=== PATIENT | male | born 1935 | race Caucasian/White ===

== ENCOUNTER → 2017-07-18 09:14 | Outpatient (CLI) | payer MEDICARE, SELFPAY ==
[2017-07-18 13:38] LABS: Absolute Lymphocyte Count 1.13 X10^3/ul (0.83-4.51); Absolute Neutrophil Count 4.7 X10^3/uL (2.0-7.7); Basophil# 0.02 X10^3/uL; Basophil% 0.3 % (0-1); Eosinophil# 0.19 X10^3/uL; Eosinophils% 2.8 % (0-5); Hematocrit 39.9 % (40-54); Hemoglobin 13.5 g/dl (13.0-16.5); Lymphocyte # 1.13 X10^3/ul (4.0); Lymphocyte % 16.5 % (19-41); Mean Corp Hgb Conc 33.8 g/gl (32-36); Mean Corpuscular Hgb 29.8 pg (27.0-32.0); Mean Corpuscular Volume 88.1 fL (80-94); Mean Platelet Vol. 11.5 fl (6.2-12.0); Monocyte# 0.79 X10^3/uL; Monocyte% 11.5 % (0-10); Neutrophil # 4.71 X10^3/uL (2.7-7.7); Neutrophil % 68.8 % (47-70); Platelet Count 185 K/mm3 (150-450); RBC Distribution Width CV 13.8 % (11.6-14.6); RBC Distribution Width SD 44.4 fl (35.1-43.9); Red Blood Count 4.53 M/mm3 (4.6-6.2); White Blood Count 6.9 K/mm3 (4.4-11.0)
[2017-07-18 13:42] LABS: POSITIVE COUNT NO; POSITIVE DIFFERENTIAL NO; POSITIVE MORPHOLOGY NO
[2017-07-18 14:06] LABS: AST(SGOT) 23 U/L (15-37); Alanine Aminotransfer ALT/SGPT 25 U/L (16-61); Albumin, Serum 3.4 g/dL (3.2-5.0); Alkaline Phosphatase 118 U/L (45-117); Anion Gap 9 (5-15); BUN 11 mg/dL (7-18); BUN/Creat Ratio 8.9 RATIO (10-20); Calcium,Total 8.2 mg/dL (8.5-10.1); Chloride 99 mmol/L (98-107); Creatinine, Serum 1.23 mg/dL (0.70-1.30); EST Glomerular Filtration Rate 60 mL/min (>60); Est Glom Filt Rate - Afr Amer 73 mL/min (>60); Globulin 3.5 g/dL (2.2-4.2); Glucose 151 mg/dL (74-106); Potassium 4.3 mmol/L (3.5-5.1); Protein, Total 6.9 g/dL (6.4-8.2); Sodium Level 135 mmol/L (136-145); Thyroid Stim Hormone (TSH) 2.22 uIU/mL (0.358-3.74)
[2017-07-19 08:44] LABS: Vitamin D,25 Hydroxy 10.4 ng/mL (29.95-100.01)
== END ==
PROVIDERS: Family Provider Family Medicine Geriatric Medicine; PCP Family Medicine Geriatric Medicine; Visit Provider Family Medicine Geriatric Medicine
DX: E11.9 Type 2 diabetes mellitus without complications (principal); E55.9 Vitamin D deficiency, unspecified; I10 Essential (primary) hypertension
CPT/HCPCS: 36415; 80053; 82306; 84443; 85025

== ENCOUNTER → 2017-09-10 16:55 | Outpatient (CLI) | payer MEDICARE, SELFPAY ==
--- NOTE | 2017-09-10 17:12 | CT_ITS ---
STUDY: CT ABDOMEN AND PELVIS WITH CONTRAST REASON FOR EXAM: Male, 81 years old. Pain. RADIATION DOSAGE (If Supplied By Facility): CTDIvol = ( 18.56 ) mGy, DLP = ( 1391.31 ) mGycm TECHNIQUE: Transaxial images were obtained from the dome of the diaphragm to the symphysis pubis with oral contrast. 100 ml of Isovue 300 contrast was administered. Sagittal and coronal images were reconstructed. Individualized dose optimization techniques were used for this CT. COMPARISON: September 03, 2016 FINDINGS: The visualized lung bases are unremarkable. Coronary artery calcifications. Normal liver. There are surgical clips in the gallbladder fossa consistent with a prior cholecystectomy. Normal spleen. Normal pancreas. Stable 1.9 cm left adrenal nodule. There is 1.1 cm cyst of the right kidney. Normal left kidney. Normal visualized stomach. Normal small intestine. There is diverticulosis, with thickening of the sigmoid colon wall, and pericolonic inflammation changes consistent with acute diverticulitis, series 2 images 68/138 through 82/138. There is 2.2 cm extraluminal region suggesting abscess, series 2 image 78/138. Resection of the proximal colon There is non-visualization of the appendix. There is diffuse atherosclerotic calcification of the abdominal aorta, without a demonstrated aneurysm. Normal inferior vena cava. Normal retroperitoneum. Wall thickening of the urinary bladder. There is enlargement of the prostate gland. There is mild free fluid in the pelvis Right inguinal hernia containing fluid . There are diffuse degenerative changes of the visualized lumbar spine. CT/Abdomen/Pelvis WITH Contrast IMPRESSION: Sigmoid diverticulitis with suggestion of peridiverticular abscess. No obstruction or abscess. Electronically Signed: Darrin Mcgee MD at 20:00 EDT , Service support ,
[2017-09-10 17:54] LABS: Absolute Lymphocyte Count 1.21 X10^3/ul (0.83-4.51); Absolute Neutrophil Count 10.3 X10^3/uL (2.0-7.7); Basophil# 0.01 X10^3/uL; Basophil% 0.1 % (0-1); Eosinophil# 0.07 X10^3/uL; Eosinophils% 0.5 % (0-5); Hematocrit 38.1 % (40-54); Hemoglobin 12.9 g/dl (13.0-16.5); Lymphocyte # 1.21 X10^3/ul (4.0); Lymphocyte % 9.4 % (19-41); Mean Corp Hgb Conc 33.9 g/gl (32-36); Mean Corpuscular Hgb 30.1 pg (27.0-32.0); Mean Corpuscular Volume 88.8 fL (80-94); Mean Platelet Vol. 11.6 fl (6.2-12.0); Monocyte# 1.29 X10^3/uL; Neutrophil # 10.29 X10^3/uL (2.7-7.7); Neutrophil % 79.7 % (47-70); Platelet Count 198 K/mm3 (150-450); RBC Distribution Width CV 13.5 % (11.6-14.6); RBC Distribution Width SD 43.6 fl (35.1-43.9); Red Blood Count 4.29 M/mm3 (4.6-6.2); White Blood Count 12.9 K/mm3 (4.4-11.0)
[2017-09-10 17:55] LABS: POSITIVE COUNT NO; POSITIVE DIFFERENTIAL NO; POSITIVE MORPHOLOGY NO
[2017-09-10 18:25] LABS: ALB/GLOB Ratio 0.8 RATIO (0.9-2.4); AST(SGOT) 20 U/L (15-37); Alanine Aminotransfer ALT/SGPT 25 U/L (16-61); Albumin, Serum 3.1 g/dL (3.2-5.0); Alkaline Phosphatase 149 U/L (45-117); Anion Gap 7 (5-15); BUN 12 mg/dL (7-18); Chloride 98 mmol/L (98-107); Creatinine, Serum 1.34 mg/dL (0.70-1.30); EST Glomerular Filtration Rate 54 mL/min (>60); Est Glom Filt Rate - Afr Amer 66 mL/min (>60); Globulin 4.1 g/dL (2.2-4.2); Glucose 162 mg/dL (74-106); Potassium 3.4 mmol/L (3.5-5.1); Protein, Total 7.2 g/dL (6.4-8.2); Sodium Level 132 mmol/L (136-145)
== END ==
PROVIDERS: Family Provider Family Medicine Geriatric Medicine; PCP Family Medicine Geriatric Medicine; Visit Provider Family Medicine Geriatric Medicine
DX: N39.0 Urinary tract infection, site not specified (principal); R10.9 Unspecified abdominal pain
CPT/HCPCS: 36415; 74177; 80053; 85025; 87086; Q9967

== ENCOUNTER → 2018-01-02 14:24 | Outpatient (CLI) | payer MEDICARE, SELFPAY ==
[2018-01-02 17:21] LABS: Absolute Neutrophil Count 6.4 X10^3/uL (2.0-7.7); Basophil# 0.01 X10^3/uL; Basophil% 0.1 % (0-1); Eosinophils% 1.2 % (0-5); Hematocrit 38.9 % (40-54); Hemoglobin 13.3 g/dl (13.0-16.5); Lymphocyte % 13.3 % (19-41); Mean Corp Hgb Conc 34.2 g/gl (32-36); Mean Corpuscular Hgb 30.6 pg (27.0-32.0); Mean Corpuscular Volume 89.4 fL (80-94); Mean Platelet Vol. 11.1 fl (6.2-12.0); Monocyte# 0.63 X10^3/uL; Monocyte% 7.6 % (0-10); Neutrophil % 77.3 % (47-70); Platelet Count 208 K/mm3 (150-450); RBC Distribution Width CV 13.6 % (11.6-14.6); RBC Distribution Width SD 44.5 fl (35.1-43.9); Red Blood Count 4.35 M/mm3 (4.6-6.2); White Blood Count 8.3 K/mm3 (4.4-11.0)
[2018-01-02 17:46] LABS: ALB/GLOB Ratio 0.9 RATIO (0.9-2.4); AST(SGOT) 46 U/L (15-37); Alanine Aminotransfer ALT/SGPT 48 U/L (16-61); Albumin, Serum 3.3 g/dL (3.2-5.0); Alkaline Phosphatase 147 U/L (45-117); Anion Gap 13 (5-15); BUN 12 mg/dL (7-18); BUN/Creat Ratio 9.8 RATIO (10-20); Chloride 98 mmol/L (98-107); Creatinine, Serum 1.22 mg/dL (0.70-1.30); EST Glomerular Filtration Rate 60 mL/min (>60); Est Glom Filt Rate - Afr Amer 73 mL/min (>60); Globulin 3.6 g/dL (2.2-4.2); Glucose 232 mg/dL (74-106); Potassium 3.7 mmol/L (3.5-5.1); Protein, Total 6.9 g/dL (6.4-8.2); Sodium Level 137 mmol/L (136-145)
[2018-01-02 18:13] LABS: POSITIVE COUNT NO; POSITIVE DIFFERENTIAL NO; POSITIVE MORPHOLOGY NO
[2018-01-03 08:27] LABS: Vitamin D,25 Hydroxy 45.8 ng/mL (29.95-100.01)
== END ==
PROVIDERS: Family Provider Family Medicine Geriatric Medicine; PCP Family Medicine Geriatric Medicine; Visit Provider Family Medicine Geriatric Medicine
DX: E11.9 Type 2 diabetes mellitus without complications (principal); I10 Essential (primary) hypertension; E55.9 Vitamin D deficiency, unspecified
CPT/HCPCS: 36415; 80053; 82306; 84443; 85025

== ENCOUNTER → 2018-05-22 17:38 | Outpatient (CLI) | payer MEDICARE, SELFPAY ==
--- NOTE | 2018-05-22 17:45 | CT_ITS ---
STUDY: CT ABDOMEN AND PELVIS WITH CONTRAST REASON FOR EXAM: Male, 82 years old. Abdominal pain. History of diverticulitis. RADIATION DOSAGE (If Supplied By Facility): CTDIvol = ( 21.29 ) mGy, DLP = ( 1194.90 ) mGycm TECHNIQUE: Transaxial images were obtained from the dome of the diaphragm to the symphysis pubis with oral contrast. 100 ml of Isovue 300 contrast was administered. Sagittal and coronal images were reconstructed. Individualized dose optimization techniques were used for this CT. COMPARISON: Comparison is made with prior study dated September 10, 2017. FINDINGS: The visualized lung bases are unremarkable. Coronary artery calcifications. There is decreased attenuation of the liver consistent with steatosis. 8 mm cyst is seen in the midportion of the right lobe of the liver. There are surgical clips in the gallbladder fossa consistent with a prior cholecystectomy. Normal spleen. Normal pancreas. Normal bilateral adrenal glands. Normal right kidney. Normal left kidney. Normal visualized stomach. Normal small intestine. There are multiple colonic diverticula consistent with diverticulosis. The appendix is visualized and appears normal. There is diffuse atherosclerotic calcification of the abdominal aorta and its major visceral branches, without a demonstrated aneurysm. Normal inferior vena cava. Normal retroperitoneum. Normal urinary bladder. There is enlargement of the prostate gland. It measures 5.4 cm x 4.7 cm. This causes indentation at the bladder base. Small bilateral inguinal hernias containing fat. There are diffuse degenerative changes of the visualized lumbar spine. CT/Abdomen/Pelvis WITH Contrast IMPRESSION: Sigmoid diverticulosis. No radiographic evidence of acute diverticulitis. Prostatic enlargement. Electronically Signed: Davis Russell MD at 8:44 EST Tel [phone], Service support ,
== END ==
PROVIDERS: Family Provider Family Medicine Geriatric Medicine; PCP Family Medicine Geriatric Medicine; Referring Provider Family Medicine Geriatric Medicine; Visit Provider Family Medicine Geriatric Medicine
DX: K57.32 Diverticulitis of large intestine without perforation or abscess without bleeding (principal)
CPT/HCPCS: 74177; Q9967

== ENCOUNTER → 2018-07-02 15:02 | Outpatient (CLI) | payer MEDICARE, SELFPAY ==
[2018-01-13 15:51] VITALS: BMI 30.7
[2018-07-02 16:23] LABS: Absolute Lymphocyte Count 1.21 X10^3/ul (0.83-4.51); Absolute Neutrophil Count 7.4 X10^3/uL (2.0-7.7); Basophil# 0.02 X10^3/uL; Basophil% 0.2 % (0-1); Hemoglobin 13.1 g/dl (13.0-16.5); Lymphocyte # 1.21 X10^3/ul (4.0); Lymphocyte % 12.6 % (19-41); Mean Corp Hgb Conc 33.6 g/gl (32-36); Mean Corpuscular Hgb 30.8 pg (27.0-32.0); Mean Corpuscular Volume 91.5 fL (80-94); Mean Platelet Vol. 11.1 fl (6.2-12.0); Monocyte# 0.82 X10^3/uL; Monocyte% 8.5 % (0-10); Neutrophil # 7.43 X10^3/uL (2.7-7.7); Neutrophil % 77.4 % (47-70); Platelet Count 201 K/mm3 (150-450); RBC Distribution Width CV 13.8 % (11.6-14.6); RBC Distribution Width SD 45.4 fl (35.1-43.9); Red Blood Count 4.26 M/mm3 (4.6-6.2); White Blood Count 9.6 K/mm3 (4.4-11.0)
[2018-07-02 16:33] LABS: POSITIVE COUNT NO; POSITIVE DIFFERENTIAL NO; POSITIVE MORPHOLOGY NO
[2018-07-02 16:43] LABS: ALB/GLOB Ratio 0.9 RATIO (0.9-2.4); AST(SGOT) 41 U/L (15-37); Alanine Aminotransfer ALT/SGPT 57 U/L (16-61); Albumin, Serum 3.3 g/dL (3.2-5.0); Alkaline Phosphatase 178 U/L (45-117); Anion Gap 12 (5-15); BUN 10 mg/dL (7-18); BUN/Creat Ratio 8.2 RATIO (10-20); Chloride 100 mmol/L (98-107); Creatinine, Serum 1.22 mg/dL (0.70-1.30); EST Glomerular Filtration Rate 60 mL/min (>60); Est Glom Filt Rate - Afr Amer 73 mL/min (>60); Globulin 3.6 g/dL (2.2-4.2); Glucose 174 mg/dL (74-106); Potassium 3.8 mmol/L (3.5-5.1); Protein, Total 6.9 g/dL (6.4-8.2); Sodium Level 138 mmol/L (136-145); Thyroid Stim Hormone (TSH) 1.38 uIU/mL (0.358-3.74)
[2018-07-02 16:45] LABS: Vitamin D,25 Hydroxy 36.8 ng/mL (29.95-100.01)
== END ==
PROVIDERS: Family Provider Family Medicine Geriatric Medicine; PCP Family Medicine Geriatric Medicine; Visit Provider Family Medicine Geriatric Medicine
DX: E11.9 Type 2 diabetes mellitus without complications (principal); E55.9 Vitamin D deficiency, unspecified; I10 Essential (primary) hypertension
CPT/HCPCS: 36415; 80053; 82306; 84443; 85025

== ENCOUNTER → 2018-09-08 12:33 | Outpatient (CLI) | payer MEDICARE, SELFPAY ==
[2018-09-02 12:21] VITALS: BMI 30.7
--- NOTE | 2018-09-08 12:52 | RAD_ITS ---
STUDY: X-RAY - ABDOMEN/PELVIS REASON FOR EXAM: Male, 82 years old. Abdominal pain. TECHNIQUE: Supine and upright frontal projections of the abdomen. COMPARISON: FINDINGS: The bowel gas pattern is nonspecific with air seen within the rectum. Multiple, tiny, bilateral calcified pelvic phleboliths are identified. There are moderate to severe diffuse spinal degenerative changes. There is no evident free air. There is no enteric or colonic distention. There is no plain film evidence intra-abdominal mass or mass effect. RAD/Abd Inc Decub and/or Erect IMPRESSION: No evident obstruction or free air. No distended loops of small bowel or colon are identified. Air is identified within the rectum. No plain film evident intra-abdominal mass or mass effect. Moderate to severe spinal degenerative changes are incidentally identified. Electronically Signed: Porter Valdovinos MD at 8:24 EDT , Service support ,
[2018-09-08 17:11] LABS: Absolute Lymphocyte Count 1.21 X10^3/ul (0.83-4.51); Absolute Neutrophil Count 7.5 X10^3/uL (2.0-7.7); Basophil# 0.02 X10^3/uL; Basophil% 0.2 % (0-1); Hematocrit 39.4 % (40-54); Hemoglobin 13.9 g/dl (13.0-16.5); Lymphocyte # 1.21 X10^3/ul (4.0); Lymphocyte % 12.4 % (19-41); Mean Corp Hgb Conc 35.3 g/gl (32-36); Mean Corpuscular Volume 87.8 fL (80-94); Mean Platelet Vol. 10.6 fl (6.2-12.0); Monocyte# 0.77 X10^3/uL; Monocyte% 7.9 % (0-10); Neutrophil # 7.48 X10^3/uL (2.7-7.7); Neutrophil % 77.1 % (47-70); POSITIVE COUNT NO; POSITIVE DIFFERENTIAL NO; POSITIVE MORPHOLOGY NO; Platelet Count 270 K/mm3 (150-450); RBC Distribution Width CV 13.4 % (11.6-14.6); RBC Distribution Width SD 43.3 fl (35.1-43.9); Red Blood Count 4.49 M/mm3 (4.6-6.2); White Blood Count 9.7 K/mm3 (4.4-11.0)
[2018-09-08 17:33] LABS: ALB/GLOB Ratio 0.8 RATIO (0.9-2.4); AST(SGOT) 26 U/L (15-37); Alanine Aminotransfer ALT/SGPT 45 U/L (16-61); Albumin, Serum 3.2 g/dL (3.2-5.0); Alkaline Phosphatase 154 U/L (45-117); Anion Gap 7 (5-15); BUN 35 mg/dL (7-18); BUN/Creat Ratio 15.8 RATIO (10-20); Calcium,Total 8.2 mg/dL (8.5-10.1); Chloride 105 mmol/L (98-107); Creatinine, Serum 2.22 mg/dL (0.70-1.30); EST Glomerular Filtration Rate 30 mL/min (>60); Est Glom Filt Rate - Afr Amer 37 mL/min (>60); Globulin 3.9 g/dL (2.2-4.2); Glucose 166 mg/dL (74-106); Potassium 3.9 mmol/L (3.5-5.1); Protein, Total 7.1 g/dL (6.4-8.2); Sodium Level 137 mmol/L (136-145)
== END ==
PROVIDERS: Family Provider Family Medicine Geriatric Medicine; PCP Family Medicine Geriatric Medicine; Referring Provider Family Medicine Geriatric Medicine; Visit Provider Family Medicine Geriatric Medicine
DX: R10.9 Unspecified abdominal pain (principal); I10 Essential (primary) hypertension
CPT/HCPCS: 36415; 74019; 80053; 84443; 85025

== ENCOUNTER → 2018-09-09 15:44 | Outpatient (CLI) | payer MEDICARE, SELFPAY ==
[2018-09-02 12:21] VITALS: BMI 30.7
[2018-09-09 17:14] LABS: Anion Gap 8 (5-15); BUN 29 mg/dL (7-18); BUN/Creat Ratio 15.8 RATIO (10-20); Calcium,Total 7.3 mg/dL (8.5-10.1); Chloride 109 mmol/L (98-107); Creatinine, Serum 1.84 mg/dL (0.70-1.30); EST Glomerular Filtration Rate 38 mL/min (>60); Est Glom Filt Rate - Afr Amer 45 mL/min (>60); Glucose 142 mg/dL (74-106); Potassium 3.7 mmol/L (3.5-5.1); Sodium Level 141 mmol/L (136-145)
== END ==
PROVIDERS: Family Provider Family Medicine Geriatric Medicine; PCP Family Medicine Geriatric Medicine; Visit Provider Family Medicine Geriatric Medicine
DX: N17.0 Acute kidney failure with tubular necrosis (principal)
CPT/HCPCS: 36415; 80048

== ENCOUNTER → 2019-01-08 09:48 | Outpatient (CLI) | payer MEDICARE, SELFPAY ==
[2018-09-02 12:21] VITALS: BMI 30.7
[2019-01-08 18:03] LABS: Absolute Lymphocyte Count 1.15 X10^3/uL (0.83-4.51); Absolute Neutrophil Count 6.2 X10^3/uL (2.0-7.7); Basophil# 0.04 X10^3/uL; Basophil% 0.5 % (0-1); Eosinophil# 0.08 X10^3/uL; Hematocrit 43.4 % (40-54); Hemoglobin 14.8 g/dL (13.0-16.5); Lymphocyte # 1.15 X10^3/ul (4.0); Mean Corp Hgb Conc 34.1 g/dL (32-36); Mean Corpuscular Hgb 30.5 pg (27.0-32.0); Mean Corpuscular Volume 89.3 fL (80-94); Mean Platelet Vol. 11.5 fl (6.2-12.0); Monocyte# 0.74 X10^3/uL; NRBC Flagged by Analyzer 0 % (0-5); Neutrophil # 6.15 X10^3/uL (2.7-7.7); Neutrophil % 74.8 % (47-70); Platelet Count 190 K/mm3 (150-450); RBC Distribution Width CV 12.5 % (11.6-14.6); RBC Distribution Width SD 40.6 fl (35.1-43.9); Red Blood Count 4.86 M/mm3 (4.6-6.2); White Blood Count 8.2 K/mm3 (4.4-11.0)
[2019-01-08 18:13] LABS: Vitamin D,25 Hydroxy 21.1 ng/mL (29.95-100.01)
[2019-01-08 18:15] LABS: AST(SGOT) 19 U/L (15-37); Alanine Aminotransfer ALT/SGPT 35 U/L (16-61); Albumin, Serum 3.5 g/dL (3.2-5.0); Alkaline Phosphatase 132 U/L (45-117); Anion Gap 8 (5-15); BUN 9 mg/dL (7-18); BUN/Creat Ratio 6.6 RATIO (10-20); Calcium,Total 8.1 mg/dL (8.5-10.1); Chloride 100 mmol/L (98-107); Creatinine, Serum 1.36 mg/dL (0.70-1.30); EST Glomerular Filtration Rate 53 mL/min (>60); Est Glom Filt Rate - Afr Amer 64 mL/min (>60); Globulin 3.6 g/dL (2.2-4.2); Glucose 181 mg/dL (74-106); Potassium 3.4 mmol/L (3.5-5.1); Protein, Total 7.1 g/dL (6.4-8.2); Sodium Level 136 mmol/L (136-145)
== END ==
PROVIDERS: Family Provider Family Medicine Geriatric Medicine; PCP Family Medicine Geriatric Medicine; Visit Provider Family Medicine Geriatric Medicine
DX: E11.9 Type 2 diabetes mellitus without complications (principal); I10 Essential (primary) hypertension; E55.9 Vitamin D deficiency, unspecified
CPT/HCPCS: 36415; 80053; 82306; 84443; 85025

== ENCOUNTER → 2019-01-20 11:43 | Outpatient (CLI) | payer MEDICARE, SELFPAY ==
[2018-09-02 12:21] VITALS: BMI 30.7
[2019-01-13 11:25] VITALS: BMI 31.3
[2019-01-20 12:36] LABS: Anion Gap 5 (5-15); BUN 12 mg/dL (7-18); Calcium,Total 8.4 mg/dL (8.5-10.1); Chloride 101 mmol/L (98-107); EST Glomerular Filtration Rate 48 mL/min (>60); Est Glom Filt Rate - Afr Amer 57 mL/min (>60); Glucose 233 mg/dL (74-106); Potassium 4.1 mmol/L (3.5-5.1); Sodium Level 135 mmol/L (136-145)
== END ==
PROVIDERS: Family Provider Family Medicine Geriatric Medicine; PCP Family Medicine Geriatric Medicine; Visit Provider Family Medicine Geriatric Medicine
DX: E87.6 Hypokalemia (principal)
CPT/HCPCS: 36415; 80048

== ENCOUNTER → 2019-02-09 10:54 | Outpatient (CLI) | payer MEDICARE, SELFPAY ==
[2019-01-13 11:25] VITALS: BMI 31.3
--- NOTE | 2019-02-09 10:56 | ECHOD_ITS ---
Reason For Study: Afib/Flutter Procedure This was a 2D Doppler, Color Flow transthoracic echocardiogram. Exam performed in department. Left Ventricle Normal LV size. Severe concentric left ventricular hypertrophy. Left ventricular systolic function is normal. The estimated ejection fraction is 55 %. Stage 3 diastolic dysfunction. No regional wall motion abnormalities noted. Atria The left atrium is moderately enlarged. Normal right atrium. Mitral Valve Normal mitral valve. Tricuspid Valve Normal tricuspid valve. Aortic Valve The aortic valve is not well visualized. Pulmonic Valve The pulmonic valve is not well visualized. Great Vessels Normal aortic root. The pulmonary artery is normal size. Normal inferior vena cava. Pericardium/Pleural No pericardial effusion. MMode/2D Measurements & Calculations LVIDd: 4.1 cm IVSd: 2.0 cm Ao root diam: 4.0 cm LVIDs: 3.0 cm LVPWd: 1.8 cm LA dimension: 4.2 cm FS: 27.2 % LAV(MOD-bp): 106.6 ml LVAd ap4: 26.0 cm2 SV(MOD-sp4): 37.3 ml LAV(MOD-bp) Indexed: 50.6 ml/m2 EDV(MOD-sp4): 76.4 ml LAV(MOD-sp2): 94.6 ml EDV(sp4-el): 78.9 ml LAV(MOD-sp4): 111.2 ml LVAs ap4: 16.8 cm2 ESV(MOD-sp4): 39.1 ml ESV(sp4-el): 36.5 ml EF(MOD-sp4): 48.8 % EF(sp4-el): 53.8 % SV(sp4-el): 42.4 ml LA A4 area: 29.8 cm2 RA A4 area: 20.3 cm2 Time Measurements MV dec time: 0.23 sec Doppler Measurements & Calculations MV E max sher: 73.5 cm/sec MV V2 max: 72.3 cm/sec MV P1/2t max sher: 72.3 cm/sec MV A max sher: 33.6 cm/sec MV max P.1 mmHg MV P1/2t: 105.3 msec MV E/A: 2.2 MV V2 mean: 39.7 cm/sec MV mean P.75 mmHg MV dec slope: 201.0 cm/sec2 MV V2 VTI: 18.5 cm MVA(P1/2t): 2.1 cm2 Ao V2 max: 88.5 cm/sec LV V1 max: 75.3 cm/sec PA V2 max: 95.3 cm/sec Ao max P.2 mmHg LV V1 max P.3 mmHg TR max sher: 220.0 cm/sec TR max P.4 mmHg Interpretation Summary Normal LV size. Severe concentric left ventricular hypertrophy. Left ventricular systolic function is normal. The estimated ejection fraction is 55 %. Stage 3 diastolic dysfunction. Ordering Physician: Rodolfo Tobias Referring Physician: Bernard Nugent Chi Performed By: David Hurst RCS
== END ==
PROVIDERS: Family Provider Family Medicine Geriatric Medicine; PCP Family Medicine Geriatric Medicine; Referring Provider Internal Medicine Cardiovascular Disease; Visit Provider Internal Medicine Cardiovascular Disease
DX: I48.0 Paroxysmal atrial fibrillation (principal)
CPT/HCPCS: 93306

== ENCOUNTER → 2019-07-09 13:40 | Outpatient (CLI) | payer MEDICARE, SELFPAY ==
[2019-05-05 14:40] VITALS: BMI 32.0
[2019-07-09 14:30] LABS: Absolute Lymphocyte Count 1.07 X10^3/uL (0.83-4.51); Absolute Neutrophil Count 5.6 X10^3/uL (2.0-7.7); Basophil# 0.03 X10^3/uL; Basophil% 0.4 % (0-1); Eosinophil# 0.12 X10^3/uL; Eosinophils% 1.6 % (0-5); Hematocrit 41.8 % (40-54); Hemoglobin 14.4 g/dL (13.0-16.5); Lymphocyte # 1.07 X10^3/ul (4.0); Lymphocyte % 14.2 % (19-41); Mean Corp Hgb Conc 34.4 g/dL (32-36); Mean Corpuscular Hgb 30.3 pg (27.0-32.0); Mean Corpuscular Volume 87.8 fL (80-94); Mean Platelet Vol. 11.3 fl (6.2-12.0); Monocyte# 0.68 X10^3/uL; NRBC Flagged by Analyzer 0 % (0-5); Neutrophil # 5.57 X10^3/uL (2.7-7.7); Neutrophil % 73.9 % (47-70); Platelet Count 202 K/mm3 (150-450); RBC Distribution Width CV 12.8 % (11.6-14.6); RBC Distribution Width SD 41.3 fl (35.1-43.9); Red Blood Count 4.76 M/mm3 (4.6-6.2); White Blood Count 7.5 K/mm3 (4.4-11.0)
[2019-07-09 14:45] LABS: ALB/GLOB Ratio 0.9 RATIO (0.9-2.4); AST(SGOT) 29 U/L (15-37); Alanine Aminotransfer ALT/SGPT 37 U/L (16-61); Albumin, Serum 3.4 g/dL (3.2-5.0); Alkaline Phosphatase 166 U/L (45-117); Anion Gap 8 (5-15); BUN 13 mg/dL (7-18); BUN/Creat Ratio 8.8 RATIO (10-20); Calcium,Total 8.2 mg/dL (8.5-10.1); Chloride 100 mmol/L (98-107); Creatinine, Serum 1.48 mg/dL (0.70-1.30); EST Glomerular Filtration Rate 48 mL/min (>60); Est Glom Filt Rate - Afr Amer 58 mL/min (>60); Globulin 3.6 g/dL (2.2-4.2); Glucose 266 mg/dL (74-106); Potassium 3.5 mmol/L (3.5-5.1); Sodium Level 135 mmol/L (136-145); Thyroid Stim Hormone (TSH) 2.29 uIU/mL (0.358-3.74)
== END ==
PROVIDERS: PCP Family Medicine Geriatric Medicine; Visit Provider Family Medicine Geriatric Medicine
DX: E11.9 Type 2 diabetes mellitus without complications (principal); E55.9 Vitamin D deficiency, unspecified; I10 Essential (primary) hypertension
CPT/HCPCS: 36415; 80053; 82306; 84443; 85025

== ENCOUNTER → 2019-12-10 11:49 | Outpatient (CLI) | payer MEDICARE, SELFPAY ==
[2019-12-10 11:05] VITALS: BMI 31.4
== END ==
PROVIDERS: PCP Family Medicine Geriatric Medicine; Referring Provider Internal Medicine Cardiovascular Disease; Visit Provider Internal Medicine Cardiovascular Disease
DX: I48.11 Longstanding persistent atrial fibrillation (principal)
CPT/HCPCS: 93225; 93226

== ENCOUNTER → 2020-01-11 11:01 | Outpatient (CLI) | payer MEDICARE, SELFPAY ==
[2019-12-10 11:05] VITALS: BMI 31.4
[2020-01-11 12:32] LABS: Absolute Neutrophil Count 5.3 X10^3/uL (2.0-7.7); Basophil# 0.03 X10^3/uL; Basophil% 0.4 % (0-1); Eosinophil# 0.14 X10^3/uL; Eosinophils% 1.8 % (0-5); Hematocrit 38.5 % (40-54); Hemoglobin 13.9 g/dL (13.0-16.5); Mean Corp Hgb Conc 36.1 g/dL (32-36); Mean Corpuscular Hgb 31.6 pg (27.0-32.0); Mean Corpuscular Volume 87.5 fL (80-94); Mean Platelet Vol. 11.4 fl (6.2-12.0); Monocyte# 0.79 X10^3/uL; Monocyte% 10.3 % (0-10); NRBC Flagged by Analyzer 0 % (0-5); Neutrophil # 5.33 X10^3/uL (2.7-7.7); Neutrophil % 69.8 % (47-70); Platelet Count 202 K/mm3 (150-450); RBC Distribution Width CV 12.8 % (11.6-14.6); RBC Distribution Width SD 40.4 fl (35.1-43.9); White Blood Count 7.6 K/mm3 (4.4-11.0)
[2020-01-11 12:51] LABS: Vitamin D,25 Hydroxy 32.6 ng/mL
[2020-01-11 13:04] LABS: AST(SGOT) 18 U/L (15-37); Alanine Aminotransfer ALT/SGPT 25 U/L (16-61); Albumin, Serum 3.4 g/dL (3.2-5.0); Alkaline Phosphatase 114 U/L (45-117); Anion Gap 8 (5-15); BUN 11 mg/dL (7-18); BUN/Creat Ratio 7.9 RATIO (10-20); Calcium,Total 8.1 mg/dL (8.5-10.1); Chloride 97 mmol/L (98-107); EST Glomerular Filtration Rate 51 mL/min (>60); Est Glom Filt Rate - Afr Amer 62 mL/min (>60); Globulin 3.4 g/dL (2.2-4.2); Glucose 138 mg/dL (74-106); Potassium 3.9 mmol/L (3.5-5.1); Protein, Total 6.8 g/dL (6.4-8.2); Sodium Level 134 mmol/L (136-145)
== END ==
PROVIDERS: PCP Family Medicine Geriatric Medicine; Visit Provider Family Medicine Geriatric Medicine
DX: E11.9 Type 2 diabetes mellitus without complications (principal); I10 Essential (primary) hypertension; E55.9 Vitamin D deficiency, unspecified
CPT/HCPCS: 36415; 80053; 82306; 84443; 85025

== ENCOUNTER 2020-06-17 10:15 | Outpatient (RCR) | payer MEDICARE, SELFPAY ==
[2020-06-07 10:59] VITALS: BMI 31.4
== END 2020-06-17 23:59 ==
LOC: IMMUN 10:15
PROVIDERS: PCP Family Medicine Geriatric Medicine; Visit Provider Family Medicine
DX: Z23 Encounter for immunization (principal)
CPT/HCPCS: 0011A; 0012A; 91301

== ENCOUNTER → 2020-07-11 11:05 | Outpatient (CLI) | payer MEDICARE, SELFPAY ==
[2020-06-07 10:59] VITALS: BMI 31.4
[2020-07-11 12:27] LABS: AST(SGOT) 23 U/L (15-37); Alanine Aminotransfer ALT/SGPT 30 U/L (16-61); Albumin, Serum 3.4 g/dL (3.2-5.0); Alkaline Phosphatase 125 U/L (45-117); Anion Gap 10 (5-15); BUN 11 mg/dL (7-18); BUN/Creat Ratio 6.9 RATIO (10-20); Calcium,Total 8.2 mg/dL (8.5-10.1); Chloride 100 mmol/L (98-107); Creatinine, Serum 1.59 mg/dL (0.70-1.30); EST Glomerular Filtration Rate 44 mL/min (>60); Est Glom Filt Rate - Afr Amer 54 mL/min (>60); Globulin 3.5 g/dL (2.2-4.2); Glucose 133 mg/dL (74-106); Potassium 3.7 mmol/L (3.5-5.1); Protein, Total 6.9 g/dL (6.4-8.2); Sodium Level 137 mmol/L (136-145); Thyroid Stim Hormone (TSH) 2.54 uIU/mL (0.358-3.74)
[2020-07-11 12:29] LABS: Absolute Lymphocyte Count 1.02 X10^3/uL (0.83-4.51); Basophil# 0.03 X10^3/uL; Basophil% 0.4 % (0-1); Eosinophils% 1.5 % (0-5); Hematocrit 40.6 % (40-54); Hemoglobin 13.8 g/dL (13.0-16.5); Lymphocyte # 1.02 X10^3/ul (4.0); Lymphocyte % 14.8 % (19-41); Mean Corpuscular Hgb 31.4 pg (27.0-32.0); Mean Corpuscular Volume 92.5 fL (80-94); Mean Platelet Vol. 11.5 fl (6.2-12.0); Monocyte# 0.71 X10^3/uL; Monocyte% 10.3 % (0-10); NRBC Flagged by Analyzer 0 % (0-5); Neutrophil # 4.99 X10^3/uL (2.7-7.7); Neutrophil % 72.6 % (47-70); Platelet Count 216 K/mm3 (150-450); RBC Distribution Width CV 12.8 % (11.6-14.6); RBC Distribution Width SD 43.5 fl (35.1-43.9); Red Blood Count 4.39 M/mm3 (4.6-6.2); White Blood Count 6.9 K/mm3 (4.4-11.0)
[2020-07-11 13:16] LABS: Vitamin D,25 Hydroxy 20.1 ng/mL
== END ==
PROVIDERS: PCP Family Medicine Geriatric Medicine; Visit Provider Family Medicine Geriatric Medicine
DX: E11.9 Type 2 diabetes mellitus without complications (principal); E55.9 Vitamin D deficiency, unspecified; I10 Essential (primary) hypertension
CPT/HCPCS: 36415; 80053; 82306; 84443; 85025

== ENCOUNTER → 2021-01-16 11:29 | Outpatient (CLI) | payer MEDICARE, SELFPAY ==
[2021-01-16 12:37] LABS: Absolute Lymphocyte Count 0.99 X10^3/uL (0.83-4.51); Absolute Neutrophil Count 7.2 X10^3/uL (2.0-7.7); Basophil# 0.03 X10^3/uL; Basophil% 0.3 % (0-1); Eosinophil# 0.08 X10^3/uL; Eosinophils% 0.9 % (0-5); Hematocrit 40.4 % (40-54); Hemoglobin 14.2 g/dL (13.0-16.5); Lymphocyte # 0.99 X10^3/ul (0.83-4.51); Lymphocyte % 10.8 % (19-41); Mean Corp Hgb Conc 35.1 g/dL (32-36); Mean Corpuscular Hgb 31.3 pg (27.0-32.0); Mean Platelet Vol. 10.9 fl (6.2-12.0); Monocyte# 0.84 X10^3/uL; Monocyte% 9.2 % (0-10); NRBC Flagged by Analyzer 0 % (0-5); Neutrophil # 7.18 X10^3/uL (2.7-7.7); Neutrophil % 78.1 % (47-70); Platelet Count 221 K/mm3 (150-450); RBC Distribution Width CV 12.9 % (11.6-14.6); RBC Distribution Width SD 41.7 fl (35.1-43.9); Red Blood Count 4.54 M/mm3 (4.6-6.2); White Blood Count 9.2 K/mm3 (4.4-11.0)
[2021-01-16 13:08] LABS: Vitamin D,25 Hydroxy 27.9 ng/mL
[2021-01-16 13:11] LABS: AST(SGOT) 21 U/L (15-37); Alanine Aminotransfer ALT/SGPT 28 U/L (16-61); Albumin, Serum 3.4 g/dL (3.2-5.0); Alkaline Phosphatase 114 U/L (45-117); Anion Gap 8 (5-15); BUN 11 mg/dL (7-18); BUN/Creat Ratio 7.5 RATIO (10-20); Calcium,Total 8.3 mg/dL (8.5-10.1); Chloride 93 mmol/L (98-107); Creatinine, Serum 1.47 mg/dL (0.70-1.30); EST Glomerular Filtration Rate 48 mL/min (>60); Est Glom Filt Rate - Afr Amer 59 mL/min (>60); Globulin 3.5 g/dL (2.2-4.2); Glucose 199 mg/dL (74-106); Potassium 3.8 mmol/L (3.5-5.1); Protein, Total 6.9 g/dL (6.4-8.2); Sodium Level 130 mmol/L (136-145); Thyroid Stim Hormone (TSH) 1.82 uIU/mL (0.358-3.74)
== END ==
PROVIDERS: PCP Family Medicine Geriatric Medicine; Referring Provider Family Medicine Geriatric Medicine; Visit Provider Family Medicine Geriatric Medicine
DX: E11.9 Type 2 diabetes mellitus without complications (principal); E55.9 Vitamin D deficiency, unspecified; I10 Essential (primary) hypertension
CPT/HCPCS: 36415; 80053; 82306; 84443; 85025

== ENCOUNTER 2021-07-13 09:17 | Outpatient (CLI) | payer MEDICARE, SELFPAY ==
[2021-07-13 12:25] LABS: Absolute Lymphocyte Count 1.15 X10^3/uL (0.83-4.51); Absolute Neutrophil Count 5.9 X10^3/uL (2.0-7.7); Basophil# 0.04 X10^3/uL; Basophil% 0.5 % (0-1); Eosinophil# 0.16 X10^3/uL; Hematocrit 37.2 % (40-54); Hemoglobin 13.5 g/dL (13.0-16.5); Lymphocyte # 1.15 X10^3/ul (0.83-4.51); Lymphocyte % 14.2 % (19-41); Mean Corp Hgb Conc 36.3 g/dL (32-36); Mean Corpuscular Hgb 32.8 pg (27.0-32.0); Mean Corpuscular Volume 90.3 fL (80-94); Mean Platelet Vol. 11.5 fl (6.2-12.0); Monocyte# 0.72 X10^3/uL; Monocyte% 8.9 % (0-10); NRBC Flagged by Analyzer 0 % (0-5); Neutrophil # 5.93 X10^3/uL (2.7-7.7); Neutrophil % 73.4 % (47-70); Platelet Count 216 K/mm3 (150-450); RBC Distribution Width CV 13.1 % (11.6-14.6); RBC Distribution Width SD 42.7 fl (35.1-43.9); Red Blood Count 4.12 M/mm3 (4.6-6.2); White Blood Count 8.1 K/mm3 (4.4-11.0)
[2021-07-13 12:31] LABS: Vitamin D,25 Hydroxy 13.3 ng/mL
[2021-07-13 12:50] LABS: ALB/GLOB Ratio 0.9 RATIO (0.9-2.4); AST(SGOT) 18 U/L (15-37); Alanine Aminotransfer ALT/SGPT 19 U/L (16-61); Alkaline Phosphatase 111 U/L (45-117); Anion Gap 7 (5-15); BUN 7 mg/dL (7-18); BUN/Creat Ratio 5.3 RATIO (10-20); Calcium,Total 8.2 mg/dL (8.5-10.1); Chloride 99 mmol/L (98-107); Creatinine, Serum 1.31 mg/dL (0.70-1.30); EST Glomerular Filtration Rate 55 mL/min (>60); Est Glom Filt Rate - Afr Amer 67 mL/min (>60); Globulin 3.2 g/dL (2.2-4.2); Glucose 108 mg/dL (74-106); Potassium 3.4 mmol/L (3.5-5.1); Protein, Total 6.2 g/dL (6.4-8.2); Sodium Level 134 mmol/L (136-145); Thyroid Stim Hormone (TSH) 3.19 uIU/mL (0.358-3.74)
== END 2021-07-13 23:59 | disposition home or self-care (01) ==
LOC: POLAB3 09:17
PROVIDERS: PCP Family Medicine Geriatric Medicine; Visit Provider Family Medicine Geriatric Medicine
DX: E11.9 Type 2 diabetes mellitus without complications (principal); E55.9 Vitamin D deficiency, unspecified; I10 Essential (primary) hypertension
CPT/HCPCS: 36415; 80053; 82306; 84443; 85025

== ENCOUNTER → 2021-10-18 | Outpatient (CLI) | payer MEDICARE, SELFPAY ==
[2021-10-18 16:31] LABS: Absolute Lymphocyte Count 0.65 X10^3/uL (0.83-4.51); Basophil# 0.02 X10^3/uL; Basophil% 0.3 % (0-1); Eosinophil# 0.03 X10^3/uL; Eosinophils% 0.5 % (0-5); Hematocrit 31.8 % (40-54); Hemoglobin 11.3 g/dL (13.0-16.5); Lymphocyte # 0.65 X10^3/ul (0.83-4.51); Lymphocyte % 10.1 % (19-41); Mean Corp Hgb Conc 35.5 g/dL (32-36); Mean Corpuscular Hgb 31.3 pg (27.0-32.0); Mean Corpuscular Volume 88.1 fL (80-94); Monocyte# 0.74 X10^3/uL; Monocyte% 11.5 % (0-10); NRBC Flagged by Analyzer 0 % (0-5); Neutrophil # 4.97 X10^3/uL (2.7-7.7); Neutrophil % 77.1 % (47-70); Platelet Count 184 K/mm3 (150-450); RBC Distribution Width CV 12.4 % (11.6-14.6); RBC Distribution Width SD 40.5 fl (35.1-43.9); Red Blood Count 3.61 M/mm3 (4.6-6.2); White Blood Count 6.4 K/mm3 (4.4-11.0)
[2021-10-18 16:58] LABS: AST(SGOT) 16 U/L (15-37); Alanine Aminotransfer ALT/SGPT 18 U/L (16-61); Albumin, Serum 2.9 g/dL (3.2-5.0); Alkaline Phosphatase 94 U/L (45-117); Anion Gap 7 (5-15); BUN 8 mg/dL (7-18); BUN/Creat Ratio 6.8 RATIO (10-20); Calcium,Total 8.1 mg/dL (8.5-10.1); Chloride 89 mmol/L (98-107); Creatinine, Serum 1.17 mg/dL (0.70-1.30); EST Glomerular Filtration Rate 63 mL/min (>60); Est Glom Filt Rate - Afr Amer 76 mL/min (>60); Glucose 131 mg/dL (74-106); Potassium 3.7 mmol/L (3.5-5.1); Protein, Total 5.9 g/dL (6.4-8.2); Sodium Level 123 mmol/L (136-145)
[2021-10-18 17:00] LABS: BNP,B-Type NATRIURETIC PEPTIDE 304.2 pg/mL (0-100)
== END | disposition home or self-care (01) ==
LOC: POLAB3 13:28
PROVIDERS: PCP Family Medicine Geriatric Medicine; Visit Provider Internal Medicine Nephrology
DX: N18.31 Chronic kidney disease, stage 3a (principal); N17.9 Acute kidney failure, unspecified; R06.02 Shortness of breath
CPT/HCPCS: 36415; 80053; 83880; 84100; 85025

== ENCOUNTER 2021-10-25 20:27 | Observation (INO) | payer MEDICARE, SELFPAY ==
[2021-10-25 20:28] VITALS: BP 141/59; PULSE 63; RESP 18; TEMP 36.9; O2SAT 98; BMI 31.9
[2021-10-25 20:34] VITALS: BMI 31.9
--- NOTE | 2021-10-25 20:42 | EKG12_ITS ---
Test Reason : CONFUSION Blood Pressure : / mmHG Vent. Rate : 060 BPM Atrial Rate : 053 BPM P-R Int : 000 ms QRS Dur : 146 ms QT Int : 462 ms P-R-T Axes : 000 -65 032 degrees QTc Int : 462 ms Normal sinus rhythm Left axis deviation Right bundle branch block Abnormal ECG Confirmed by JUNAID AZEVEDO, KEL ([id number]), features editor KEVIN WANG ([id number]) on 10/30/2021 7:38:29 AM Referred By: COMPA Confirmed By:KEL QUIROGA MD
--- NOTE | 2021-10-25 20:42 | CT_ITS ---
EXAM: CT HEAD WITHOUT INTRAVENOUS CONTRAST CLINICAL INDICATION: HIA TECHNIQUE: Multiple axial images were obtained of the head without intravenous contrast. CTDIvol = ( 44.99 ) mGy, DLP = ( 863.60 ) mGycm This CT exam was performed using one or more of the following dose reduction techniques: automated exposure control, adjustment of the mA and/or kV according to patient size, and/or use of iterative reconstruction technique. This report was created using [employer] report generation technology. COMPARISON: 10/23/2014 CT head FINDINGS: BRAIN AND EXTRA-AXIAL SPACES: No acute intracranial hemorrhage, mass effect or edema. No evidence of acute cortical stroke. Periventricular small vessel ischemic change. No midline shift or hydrocephalus. Diffuse parenchymal atrophy. Posterior fossa structures are unremarkable. Basal cisterns are patent. BONES/JOINTS: Unremarkable. No discrete lytic or blastic abnormalities. VASCULATURE: Atherosclerotic calcifications of the carotid siphons and vertebrobasilar arteries. SINUSES: Unremarkable as visualized. Clear. MASTOID AIR CELLS: Visualized sinuses and mastoid air cells are clear. ORBITS: Artificial left globe. CT/Brain/Head without Contrast IMPRESSION: 1. No evidence of acute intracranial pathology. 2. Diffuse involutional changes and chronic ischemic small vessel white matter disease. Electronically Signed: Bernard Evans MD at 22:11 EDT ,
--- NOTE | 2021-10-25 20:42 | CT_ITS ---
EXAM: CT CERVICAL SPINE WITHOUT INTRAVENOUS CONTRAST CLINICAL INDICATION: Head Trauma, Pain TECHNIQUE: Helically acquired images were obtained of the cervical spine without intravenous contrast. 2D reformatted images were reviewed. CTDIvol = ( 25.32 ) mGy, DLP = ( 564.48 ) mGycm This CT exam was performed using one or more of the following dose reduction techniques: automated exposure control, adjustment of the mA and/or kV according to patient size, and/or use of iterative reconstruction technique. This report was created using [employer] technology. COMPARISON: None. FINDINGS: VERTEBRAE: No evidence of acute or healing fracture or malalignment. No traumatic subluxation. No discrete lytic or blastic abnormality. Normal craniocervical junction and cervicothoracic junction. DISCS/SPINAL CANAL/NEURAL FORAMINA: Multilevel spine degenerative changes. No critical central canal stenosis or apical pneumothorax. SOFT TISSUES: Unremarkable. No prevertebral soft tissue swelling. VASCULATURE: Atherosclerotic calcifications of the internal carotid arteries of the neck. LYMPH NODES: Unremarkable. No cervical adenopathy. LUNG APICES: Unremarkable as visualized. Clear. CT/Spine Cervical without Contras IMPRESSION: No evidence of acute or healing fracture or malalignment. Electronically Signed: Bernard Evans MD at 22:14 EDT ,
--- NOTE | 2021-10-25 20:44 | EX.ED.DYSGE1 ---
HPI History of Present Illness Chief Complaint: Confusion Narrative Narrative: Patient presents via EMS with head injury on anticoagulation, and reported confusion. He states that he lives at home alone, and was getting ready to make dinner. He felt weak and fell backwards and struck his head on the kitchen floor. He denies neck pain or loss of consciousness. He called his friend as he lives alone who called another friend because she had his daughter's phone number. When they went over to his house, he appeared very confused. He complained of a generalized weakness. He denies any headache. He does take Eliquis for atrial fibrillation. He denies any prodromal chest pain or shortness of breath, does state he felt weak and fell backwards when he was getting ready to make dinner a few hours ago. Per EMS, he was very confused, even upon arrival to the ED RN states that he was confused about the year. He denies any paresthesias. No other symptoms. [facility] Medical History (Updated 10/25/21 @ 22:44 by Harsh Rincon MD) Diverticula of colon Diverticulitis large intestine Diverticulosis Essential (primary) hypertension Hyperlipidemia Left ventricular diastolic dysfunction Longstanding persistent atrial fibrillation Non-rheumatic tricuspid valve insufficiency Nonrheumatic mitral (valve) insufficiency Obesity Obstructive sleep apnea Paroxysmal atrial fibrillation Right bundle branch block (RBBB) with left anterior fascicular block Type 2 diabetes mellitus Home Medications metformin 500 mg PO QHS 09/19/14 [History Last Taken 09/02/16 23:00] omeprazole 20 mg PO DAILY 09/19/14 [History Last Taken 09/03/16 08:30] pravastatin 40 mg PO QHS 09/19/14 [History Last Taken 09/02/16 23:00] diltiazem HCl 120 mg capsule,extended release 24 hr 120 mg PO DAILY #90 cap 03/02/21 [Rx Last Taken Unknown] losartan 100 mg-hydrochlorothiazide 25 mg tablet 1 tab PO DAILY #90 tab 03/02/21 [Rx Last Taken Unknown] metoprolol succinate 100 mg tablet,extended release 24 hr 100 mg PO DAILY #90 tab 03/02/21 [Rx Last Taken Unknown] apixaban 5 mg tablet See Rx Instructions .ROUTE .COMPLEX #180 tab 04/10/21 [Rx Last Taken Unknown] Allergy/AdvReac Type Severity Reaction Status Date / Time codeine AdvReac Other Verified 10/25/21 20:28 losartan AdvReac COUGH Verified 10/25/21 20:28 Family History Father CVA (cerebral vascular accident) Mother Diabetes Sister Heart disease PPM Surgical History H/O hemicolectomy History of cataract surgery History of tonsillectomy Hx of cholecystectomy Social History Smoking Status: Never smoker alcohol intake: never ROS ROS ED ROS Narrative Constitutional: No fever, no chills. HEENT: No sore throat. No neck pain. No loss of vision. No rhinorrhea. Cardiovascular: No chest pain. No palpitations. No pedal edema. Respiratory: No cough, no shortness of breath. Abdominal: No abdominal pain. No nausea. No vomiting. Genitourinary: No dysuria. No hematuria. Musculoskeletal: No myalgias. No arthralgias. Neurologic: No headaches. No dizziness. No lightheadedness. Generalized weakness. Reported confusion by EMS and RN. Skin: No rash. No change in color. Psychiatric: No depression. No anxiety. EXAM Physical Exam Narrative Exam Narrative: Afebrile. Vital signs noted. HEENT: Normocephalic. Atraumatic. PERRL, EOMI. Neck soft and supple. No point tenderness or step off. Full range of motion without pain. Cardiovascular: Regular rate and rhythm. No murmurs, rubs, or gallops appreciated. Respiratory: No tachypnea. Lungs clear to auscultation bilaterally. Gastrointestinal: Abdomen soft, nontender, with normoactive bowel sounds. No rebound or guarding. Neurological: Awake. Alert. Oriented x3, to person, place, and time/current events. Nonfocal, nonlateralizing. DTRs equal and symmetric. Skin: No rash. Normal color. No pallor. Musculoskeletal: No pedal edema. Full range of motion extremities. Const Vital Signs: 10/25/21 20:28 10/25/21 22:03 Temperature 98.4 F Temperature Source Oral Pulse Rate 63 69 Respiratory Rate 18 17 Blood Pressure 141/59 H 150/81 H Blood Pressure Mean 86 104 Pulse Ox 98 98 Oxygen Delivery Method Room Air Room Air MDM MDM MDM Narrative Medical decision making narrative: Comprehensive work-up was pursued. Given the patient's head injury on anticoagulation of Eliquis CT of the brain and of the C-spine will be obtained. For his generalized weakness, comprehensive work-up was pursued including EKG, troponin, CBC, and CMP. I will also obtain an alcohol level as we are unsure as to the reason for his weakness and fall. CBC shows normal white count of 9.1, hemoglobin stable 11.9, hematocrit 33.3. Platelet count normal at 221. He is hyponatremic at 124, he had been bolused 500 mL of normal saline. He is mildly hypokalemic at 3.1 with a chloride of 86. This will be replaced orally after results of CT scan. He has a chronic kidney injury with creatinine of 1.38 and a BUN of 10. He and his friend state that he was recently started on Lasix last week by his primary care physician. CT of the brain shows no evidence of hemorrhage or skull fracture. CT of the C-spine also shows no evidence of fracture. Chest x-ray interpreted by myself shows no evidence of an infiltrate or acute cardiopulmonary process. No pneumothorax. Urinalysis shows no evidence of infection. Ethyl alcohol level is normal at 6.0. At this point in time, I do feel that his transient confusion may have been secondary to his closed head injury. Given his hyponatremia and hypokalemia patient was discussed with Dr. Kennedy. Patient will be placed on observation on MedSurg. He is in stable condition. Lab Data Attestation: I reviewed the patient's lab results. Labs: Laboratory Results - last 24 hr 10/25/21 10/25/21 10/25/21 20:30 20:30 20:52 WBC 9.1 RBC 3.79 L Hgb 11.9 L Hct 33.3 L MCV 87.9 MCH 31.4 MCHC 35.7 RDW Std Deviation 39.2 RDW Coeff of Lisa 12.1 Plt Count 221 MPV 10.6 Immature Gran % (Auto) 0.600 Neut % (Auto) 80.3 H Lymph % (Auto) 8.0 L [place] % (Auto) 10.1 H Eos % (Auto) 0.7 Baso % (Auto) 0.3 Absolute Neuts (auto) 7.3 Absolute Lymphs (auto) 0.73 L Nucleated RBC % 0 Sodium 124 L Potassium 3.1 L Chloride 86 L Carbon Dioxide 29.0 Anion Gap 9 BUN 10 Creatinine 1.38 H Estim Creat Clear Calc 38.42 Est GFR (MDRD) Af Amer 63 Est GFR (MDRD) Non-Af 52 L BUN/Creatinine Ratio 7.2 L Glucose 214 H Calcium 7.9 L Total Bilirubin 1.60 H AST 14 L ALT 18 Alkaline Phosphatase 103 Troponin I High Sens 12 Total Protein 6.5 Albumin 3.2 Globulin 3.3 Albumin/Globulin Ratio 1.0 Urine Color Urine Clarity Urine pH Ur Specific [place] Urine Protein Urine Glucose (UA) Urine Ketones Urine Occult Blood Urine Nitrite Urine Bilirubin Urine Urobilinogen Ur Leukocyte Esterase Urine RBC Urine WBC Ur Squamous Epith Cells Urine Bacteria Urine Mucus Ethyl Alcohol 6.0 10/25/21 21:20 WBC RBC Hgb Hct MCV MCH MCHC RDW Std Deviation RDW Coeff of Lisa Plt Count MPV Immature Gran % (Auto) Neut % (Auto) Lymph % (Auto) [place] % (Auto) Eos % (Auto) Baso % (Auto) Absolute Neuts (auto) Absolute Lymphs (auto) Nucleated RBC % Sodium Potassium Chloride Carbon Dioxide Anion Gap BUN Creatinine Estim Creat Clear Calc Est GFR (MDRD) Af Amer Est GFR (MDRD) Non-Af BUN/Creatinine Ratio Glucose Calcium Total Bilirubin AST ALT Alkaline Phosphatase Troponin I High Sens Total Protein Albumin Globulin Albumin/Globulin Ratio Urine Color Yellow Urine Clarity Clear Urine pH 7.0 Ur Specific [place] 1.010 Urine Protein Negative Urine Glucose (UA) Normal Urine Ketones Negative Urine Occult Blood Negative Urine Nitrite Negative Urine Bilirubin Negative Urine Urobilinogen Normal Ur Leukocyte Esterase Negative Urine RBC 0 SEEN Urine WBC 0 SEEN Ur Squamous Epith Cells 0 SEEN Urine Bacteria 0 SEEN Urine Mucus 0 SEEN Ethyl Alcohol Radiography Diagnostic Testing: Clinical Impression(s) from Imaging Studies Brain CT 10/25/21 20:42 IMPRESSION: 1. No evidence of acute intracranial pathology. 2. Diffuse involutional changes and chronic ischemic small vessel white matter disease. Electronically Signed: Bernard Evans MD at 22:11 EDT Reading Location ID and State: [facility] / [place] Tel , Service support , Cervical Spine CT 10/25/21 20:42 IMPRESSION: No evidence of acute or healing fracture or malalignment. Electronically Signed: Bernard Evans MD at 22:14 EDT , Chest X-Ray 10/25/21 21:45 IMPRESSION: No convincing evidence for acute cardiopulmonary disease. Electronically Signed: Bernard Evans MD at 22:27 EDT , Discharge Plan Dx/Rx/DC Orders Clinical Impression: Fall, Weakness, Hyponatremia, Hypokalemia, Closed head injury Disposition Disposition: Acute Care [facility]
[2021-10-25 20:55] LABS: Absolute Lymphocyte Count 0.73 X10^3/uL (0.83-4.51); Absolute Neutrophil Count 7.3 X10^3/uL (2.0-7.7); Basophil# 0.03 X10^3/uL; Basophil% 0.3 % (0-1); Eosinophil# 0.06 X10^3/uL; Eosinophils% 0.7 % (0-5); Hematocrit 33.3 % (40-54); Hemoglobin 11.9 g/dL (13.0-16.5); Lymphocyte # 0.73 X10^3/ul (0.83-4.51); Mean Corp Hgb Conc 35.7 g/dL (32-36); Mean Corpuscular Hgb 31.4 pg (27.0-32.0); Mean Corpuscular Volume 87.9 fL (80-94); Mean Platelet Vol. 10.6 fl (6.2-12.0); Monocyte# 0.92 X10^3/uL; Monocyte% 10.1 % (0-10); NRBC Flagged by Analyzer 0 % (0-5); Neutrophil # 7.29 X10^3/uL (2.7-7.7); Neutrophil % 80.3 % (47-70); Platelet Count 221 K/mm3 (150-450); RBC Distribution Width CV 12.1 % (11.6-14.6); RBC Distribution Width SD 39.2 fl (35.1-43.9); Red Blood Count 3.79 M/mm3 (4.6-6.2); White Blood Count 9.1 K/mm3 (4.4-11.0)
[2021-10-25 21:13] LABS: BUN 10 mg/dL (7-18); Creatinine, Serum 1.38 mg/dL (0.70-1.30); EST Glomerular Filtration Rate 52 mL/min (>60); Estimated Creatinine Clearance 38.42 ml/min; Glucose 214 mg/dL (74-106)
[2021-10-25 21:14] LABS: AST(SGOT) 14 U/L (15-37); Alanine Aminotransfer ALT/SGPT 18 U/L (16-61); Albumin, Serum 3.2 g/dL (3.2-5.0); Alkaline Phosphatase 103 U/L (45-117); Anion Gap 9 (5-15); BUN/Creat Ratio 7.2 RATIO (10-20); Calcium,Total 7.9 mg/dL (8.5-10.1); Chloride 86 mmol/L (98-107); Est Glom Filt Rate - Afr Amer 63 mL/min (>60); Globulin 3.3 g/dL (2.2-4.2); Potassium 3.1 mmol/L (3.5-5.1); Protein, Total 6.5 g/dL (6.4-8.2); Sodium Level 124 mmol/L (136-145); Troponin-I HS 12 pg/mL (3.0-78.0)
[2021-10-25 21:27] LABS: Bacteria 0 SEEN /hpf (None Seen); Mucous, Urine 0 SEEN /hpf (<or=2+); Red Blood Cells-Urine 0 SEEN /hpf (0-5); Squamous Epithelial Cells - UA 0 SEEN /hpf (0-5); White Blood Cells 0 SEEN /hpf (0-5)
[2021-10-25 21:33] LABS: Color, Urine Yellow (Yellow); Glucose, Dipstick Normal (Normal); Ketone-Dipstick Negative (Negative); Leukocyte Esterase-Dipstick Negative /ul (Negative); Nitrite-Dipstick Negative (Negative); Occult Blood-Urine Negative /ul (Negative); Protein-Dipstick Negative (Negative); Urine Bilirubin Dipstick Negative (Negative); Urine Clarity Clear (Clear); Urine Urobilinogen Normal (Normal)
--- NOTE | 2021-10-25 21:45 | RAD_ITS ---
EXAM: XR CHEST, 1 VIEW CLINICAL INDICATION: CAD TECHNIQUE: Frontal view of the chest. This report was created using [employer] report generation technology. COMPARISON: 09/03/2016 FINDINGS: LUNGS AND PLEURAL SPACES: Subsegmental atelectasis or scarring at the left greater than right lung bases. No dense consolidation. No pleural effusion or pneumothorax. HEART: Fullness of the cardiac silhouette. MEDIASTINUM: No mediastinal or hilar enlargement. Trachea is unremarkable. BONES/JOINTS: Degenerative changes of the acromioclavicular joints. Degenerative changes of the spine. SOFT TISSUES: Unremarkable. VASCULATURE: Atherosclerotic calcifications of the nonenlarged thoracic aorta. RAD/Chest 1 View (Portable) IMPRESSION: No convincing evidence for acute cardiopulmonary disease. Electronically Signed: Bernard Evans MD at 22:27 EDT ,
[2021-10-25 22:03] VITALS: BP 150/81; PULSE 69; RESP 17; O2SAT 98
--- NOTE | 2021-10-25 22:51 | PCM.HP.STD ---
HPI - General General Date of Admission: 10/25/21 HPI Narrative ASHIA PEREZ, is a 86 M with a significant history of type 2 diabetes; diastolic heart failure hypertension and atrial fibrillation on Eliquis who presents to the emergency department with a fall. Reportedly patient was making DNR. He reports that he lost consciousness fell backwards and hit his head. He reports weakness. He crawled and called a neighbor who has the ufentes to patient's home. The neighbor called paramedics and patient was brought to the emergency department. Reportedly by paramedics and ED nurses patient has some confusion. ED doctor at the time of evaluation reported that patient had no confusion. Of note patient lives at home by himself. Patient was started on Lasix for bilateral leg edema and weight before presentation. [facility] Medical History Diverticula of colon Diverticulitis large intestine Diverticulosis Essential (primary) hypertension Hyperlipidemia Left ventricular diastolic dysfunction Longstanding persistent atrial fibrillation Non-rheumatic tricuspid valve insufficiency Nonrheumatic mitral (valve) insufficiency Obesity Obstructive sleep apnea Paroxysmal atrial fibrillation Right bundle branch block (RBBB) with left anterior fascicular block Type 2 diabetes mellitus Home Medications metformin 500 mg PO QHS 09/19/14 [History Last Taken 09/02/16 23:00] omeprazole 20 mg PO DAILY 09/19/14 [History Last Taken 09/03/16 08:30] pravastatin 40 mg PO QHS 09/19/14 [History Last Taken 09/02/16 23:00] diltiazem HCl 120 mg capsule,extended release 24 hr 120 mg PO DAILY #90 cap 03/02/21 [Rx Last Taken Unknown] losartan 100 mg-hydrochlorothiazide 25 mg tablet 1 tab PO DAILY #90 tab 03/02/21 [Rx Last Taken Unknown] metoprolol succinate 100 mg tablet,extended release 24 hr 100 mg PO DAILY #90 tab 03/02/21 [Rx Last Taken Unknown] apixaban 5 mg tablet See Rx Instructions .ROUTE .COMPLEX #180 tab 04/10/21 [Rx Last Taken Unknown] Allergy/AdvReac Type Severity Reaction Status Date / Time codeine AdvReac Other Verified 10/25/21 20:28 losartan AdvReac COUGH Verified 10/25/21 20:28 Family History Father CVA (cerebral vascular accident) Mother Diabetes Sister Heart disease PPM Surgical History H/O hemicolectomy History of cataract surgery History of tonsillectomy Hx of cholecystectomy Social History (Updated 10/25/21 @ 23:[address] Charanjit Kennedy MD) Smoking Status: Former smoker alcohol intake: current ROS ROS Narrative Constitutional: Denies fever, chills, and anorexia. Eyes: Denies blurry vision, change in eye color, change in vision, discharge from eye(s), double vision, erythema, eye pain, loss of vision or other HEENT: Denies abnormal hearing, dysphagia, ear pain, epistaxis, headache(s), hearing loss, nasal congestion, nasal discharge, post nasal drip, sinus pressure, sore throat or other Cardiovascular: Denies chest pain or palpitations. Denies dyspnea on exertion, orthopnea and paroxysmal nocturnal dyspnea. Reports bilateral lower extremity edema. Respiratory/Chest: Denies cough, excessive phlegm production, shortness of breath with exertion and wheezing Gastrointestinal: Denies abdominal pain, coffee ground emesis, constipation, diarrhea, dyspepsia, hematemesis, hematochezia, loose stools, melena, nausea, vomiting or other Genitourinary: Denies burning urination, difficulty urinating, dysuria, hematuria, nocturia, urinary frequency, urinary hesitancy, urinary incontinence, urinary urgency or other Musculoskeletal: Denies arthralgias, back pain, joint pain, joint stiffness, joint swelling, myalgias, neck pain or other Neurologic: Reports syncope. Denies abnormal gait, abnormal speech, confusion, disequilibrium, dizziness, focal weakness, numbness, paresthesias, seizure-like activity, seizures, tingling, tremor(s) or other Psychiatric: Denies anxiety, depression, homicidal ideation, suicidal ideation or other Endocrinology: Denies change in body appearance, cold intolerance, excessive sweating, heat intolerance, polydipsia, polyuria or other Hematologic/Lymphatic: Denies anemia, easy bleeding, easy bruising, lymphadenopathy or other Integumentary: Denies rashes Allergic/Immunologic: Denies rhinitis, hives, eczema, or other Vital Signs Vital Signs Vital Signs: 10/25/21 20:28 10/25/21 22:03 Temperature 98.4 F Temperature Source Oral Pulse Rate 63 69 Respiratory Rate 18 17 Blood Pressure 141/59 H 150/81 H Blood Pressure Mean 86 104 Pulse Ox 98 98 Oxygen Delivery Method Room Air Room Air Weight Weight: 98.2 kg Body Mass Index (BMI) 31.9 Physical Exam Narrative Physical exam: General: Well-nourished, well-developed. Head: Normocephalic, atraumatic, no tenderness Eyes: Vision is grossly intact. EOMI ENT, no trauma, moist mucous membranes, no rhinorrhea Neck: Nontender, full range of motion, no spinal tenderness, deformities, step-off CVS: Regular rate and rhythm. S1-S2 present. No murmur, gallop or rub. 1-2+ bilateral leg edema. Respiratory : clear to auscultation bilaterally, chest wall nontender, no wheezing Abdomen: Soft, nontender, nondistended, normal bowel sounds, no masses : Deferred Back: Nontender, no CVA tenderness, no midline spinal tenderness, deformities, step-offs Extremities: Nontender full range of motion, no trauma Skin: Normal color, no trauma, abrasions Neuro: Alert, oriented, cranial nerves II through XII grossly intact. Psychiatry: Normal mood. Normal affect. Not depressed. Not anxious. Results Lab / Micro Data Result Diagrams: 10/25/21 20:30 10/25/21 20:30 Labs: Laboratory Results - last 24 hr 10/25/21 20:30: WBC 9.1, RBC 3.79 L, Hgb 11.9 L, Hct 33.3 L, MCV 87.9, MCH 31.4, MCHC 35.7, RDW Std Deviation 39.2, RDW Coeff of Lisa 12.1, Plt Count 221, MPV 10.6, Immature Gran % (Auto) 0.600, Neut % (Auto) 80.3 H, Lymph % (Auto) 8.0 L, [place] % (Auto) 10.1 H, Eos % (Auto) 0.7, Baso % (Auto) 0.3, Absolute Neuts (auto) 7.3, Absolute Lymphs (auto) 0.73 L, Nucleated RBC % 0 10/25/21 20:30: Sodium 124 L, Potassium 3.1 L, Chloride 86 L, Carbon Dioxide 29.0, Anion Gap 9, BUN 10, Creatinine 1.38 H, Estim Creat Clear Calc 38.42, Est GFR (MDRD) Af Amer 63, Est GFR (MDRD) Non-Af 52 L, BUN/Creatinine Ratio 7.2 L, Glucose 214 H, Calcium 7.9 L, Total Bilirubin 1.60 H, AST 14 L, ALT 18, Alkaline Phosphatase 103, Troponin I High Sens 12, Total Protein 6.5, Albumin 3.2, Globulin 3.3, Albumin/Globulin Ratio 1.0 10/25/21 20:52: Ethyl Alcohol 6.0 10/25/21 21:20: Urine Color Yellow, Urine Clarity Clear, Urine pH 7.0, Ur Specific [place] 1.010, Urine Protein Negative, Urine Glucose (UA) Normal, Urine Ketones Negative, Urine Occult Blood Negative, Urine Nitrite Negative, Urine Bilirubin Negative, Urine Urobilinogen Normal, Ur Leukocyte Esterase Negative, Urine RBC 0 SEEN, Urine WBC 0 SEEN, Ur Squamous Epith Cells 0 SEEN, Urine Bacteria 0 SEEN, Urine Mucus 0 SEEN Radiology Impression Brain CT 10/25/21 20:42 IMPRESSION: 1. No evidence of acute intracranial pathology. 2. Diffuse involutional changes and chronic ischemic small vessel white matter disease. Electronically Signed: Bernard Evans MD at 22:11 EDT Reading Location ID and State: [employer] / [place] Tel , Service support , Cervical Spine CT 10/25/21 20:42 IMPRESSION: No evidence of acute or healing fracture or malalignment. Electronically Signed: Bernard Evans MD at 22:14 EDT Reading Location ID and State: [employer] / [place] Tel , Service support , Chest X-Ray 10/25/21 21:45 IMPRESSION: No convincing evidence for acute cardiopulmonary disease. Electronically Signed: Bernard Evans MD at 22:27 EDT Reading Location ID and State: [employer] / [place] Tel , Service support , Assessment & Plan Assessment/Plan (1) Syncope and collapse: PLAN: Syncope and collapse EKG independently reviewed showed right bundle branch block. Impression of chest x-ray by radiologist: No convincing evidence for acute cardiopulmonary disease. Actual chest x-ray image was independently reviewed. I agree with radiologist interpretation. Brain CT and cervical spine CT did not show any acute abnormalities. Alcohol level on presentation was 6.0 Last echocardiogram in hospital system was on 02/09/2019. Echocardiogram at that time still showed estimated ejection fraction of 55% and stage III diastolic dysfunction. There was severe concentric left ventricular hypertrophy. There was no hemodynamically significant valvular abnormality. Echocardiogram ordered. Orthostatic vitals per protocol Emergency department doctor ordered CTA chest; follow. Hyponatremia His sodium on presentation was 124. Of note patient was started on furosemide and potassium on 10/18/2021. Trend BMP. Hold Lasix at this time. Received normal saline bolus in emergency department. Check uric acid Check urine osmolarity Check urine sodium Check serum osmolality TSH 07/13/2021 was 3.19. Check cortisol level. Hypokalemia Potassium presentation was 3.1. Likely secondary to diuretic use. 40 mEq of potassium ordered at the ED. Escalate home dose from 20 mEq daily to 40 mEq daily. Diabetes mellitus Patient report that his home oral hypoglycemic was started because his blood glucose was good. Blood glucose elevated on presentation. Check A1c. Accu-Chek with correction scale insulin ordered. Hypertension Blood pressure is not within goal Home blood pressure medications will be continued Trend blood pressure and adjust blood pressure medications. History of A. fib. Normal heart rate on presentation. Admit telemetry. Home Eliquis held secondary to close head injury. DVT prophylaxis: SCDs ordered Charges/Coding Visit Charges OBSV E&M: 79470 Initial observation care L3
[2021-10-25 23:03] VITALS: BP 152/68; PULSE 61; RESP 18; TEMP 36.7; O2SAT 98
[2021-10-25] MEDS: Potassium Chloride Oral Tablet 20 MEQ 40 MEQ PO (23:07)
[2021-10-25 23:31] LABS: Osmolality, Urine 314 mOsm/KG
[2021-10-25 23:36] LABS: Urine Sodium 52 mmol/L (Not Establ.)
[2021-10-25 23:39] LABS: Uric Acid 5.8 mg/dL (3.5-7.2)
[2021-10-25 23:48] VITALS: BP 133/71; BP 141/70; BP 149/66; PULSE 58; PULSE 59; PULSE 60; RESP 18; TEMP 36.2; O2SAT 100
--- NOTE | 2021-10-25 23:48 | ECHOD_ITS ---
Reason For Study: SYNCOPE/NEAR SYNCOPE Procedure This was a 2D Doppler, Color Flow transthoracic echocardiogram. Exam performed portable in patient room. Left Ventricle Mild concentric left ventricular hypertrophy. The estimated ejection fraction is 55-60 %. Right Ventricle Normal right ventricle. Normal systolic function. Atria The left atrium is moderately enlarged. The right atrium is mildly enlarged. Mitral Valve The mitral valve is structurally normal. No prolapse or stenosis seen. Trivial mitral valve insufficiency. Tricuspid Valve Normal tricuspid valve. Mild tricuspid valve insufficiency. Aortic Valve Normal aortic valve. Pulmonic Valve The pulmonic valve is not well visualized. Great Vessels Normal aortic root. Pericardium/Pleural No pericardial effusion. MMode/2D Measurements & Calculations LVIDd: 4.9 cm IVSd: 1.2 cm Ao root diam: 3.4 cm LVIDs: 3.3 cm LVPWd: 1.3 cm RVDd: 4.0 cm FS: 32.1 % LAV(MOD-bp): 83.8 ml LVAd ap4: 29.3 cm2 SV(MOD-sp4): 59.7 ml LAV(MOD-bp) Indexed: 40.0 ml/m2 LVLd ap4: 7.2 cm LAV(MOD-sp2): 79.3 ml EDV(MOD-sp4): 96.3 ml LAV(MOD-sp4): 87.9 ml EDV(sp4-el): 101.5 ml LVAs ap4: 16.3 cm2 LVLs ap4: 6.3 cm ESV(MOD-sp4): 36.6 ml ESV(sp4-el): 35.7 ml EF(MOD-sp4): 62.0 % EF(sp4-el): 64.8 % SV(sp4-el): 65.8 ml LA A4 area: 26.3 cm2 LA dimension(2D): 4.6 cm RA A4 area: 23.4 cm2 Time Measurements MV dec time: 0.20 sec Doppler Measurements & Calculations MV E max migue: 127.4 cm/sec Lat Peak E' [place]: 12.1 cm/sec Med Peak [place]' [place]: 7.0 cm/sec MV A max migue: 41.5 cm/sec E/E' lat: 10.5 E/E' med: 18.1 MV E/A: 3.1 Ao V2 max: 139.2 cm/sec AI max migue: 346.2 cm/sec LV V1 max: 97.6 cm/sec Ao max P.8 mmHg AI max P.9 mmHg LV V1 max P.8 mmHg AI dec slope: 205.7 cm/sec2 AI P1/2t: 492.8 msec PA V2 max: 98.1 cm/sec TR max migue: 312.6 cm/sec TR max P.1 mmHg ECHO/Echo Complete Interpretation Summary The estimated ejection fraction is 55-60 %. Normal LV systolic function Mild LHC/concenteric Mild TR Mild Pulmonary Hypertension'RVSP 39.1 mmhg Ordering Physician: Charanjit Kennedy Referring Physician: DORA GUZMAN Performed By: Faiza De RDCS
[2021-10-26 00:01] VITALS: BMI 29.7
[2021-10-26 00:03] VITALS: PULSE 62
[2021-10-26] MEDS: 0.9% Saline Lock 10 ML Syringe IV (00:03)
[2021-10-26] MEDS: 0.9% Normal Saline 1,000 ML 75 ML IV ×2 (00:03→12:00)
[2021-10-26 00:06] LABS: Osmolality, Serum 260 mOsm/KG (280-301)
[2021-10-26 03:00] VITALS: BP 150/70; PULSE 57; PULSE 66; RESP 18; TEMP 36.7; O2SAT 97
[2021-10-26 05:42] LABS: Absolute Lymphocyte Count 0.94 X10^3/uL (0.83-4.51); Absolute Neutrophil Count 7.8 X10^3/uL (2.0-7.7); Basophil# 0.01 X10^3/uL; Basophil% 0.1 % (0-1); Eosinophil# 0.06 X10^3/uL; Eosinophils% 0.6 % (0-5); Hemoglobin 10.9 g/dL (13.0-16.5); Lymphocyte # 0.94 X10^3/ul (0.83-4.51); Lymphocyte % 9.6 % (19-41); Mean Corp Hgb Conc 36.3 g/dL (32-36); Mean Corpuscular Hgb 31.6 pg (27.0-32.0); Monocyte# 0.91 X10^3/uL; Monocyte% 9.3 % (0-10); NRBC Flagged by Analyzer 0 % (0-5); Neutrophil # 7.83 X10^3/uL (2.7-7.7); Platelet Count 204 K/mm3 (150-450); RBC Distribution Width CV 11.9 % (11.6-14.6); RBC Distribution Width SD 38.5 fl (35.1-43.9); Red Blood Count 3.45 M/mm3 (4.6-6.2); White Blood Count 9.8 K/mm3 (4.4-11.0)
[2021-10-26 06:18] LABS: Anion Gap 8 (5-15); BUN 9 mg/dL (7-18); BUN/Creat Ratio 8.1 RATIO (10-20); Calcium,Total 7.5 mg/dL (8.5-10.1); Chloride 89 mmol/L (98-107); Creatinine, Serum 1.11 mg/dL (0.70-1.30); EST Glomerular Filtration Rate 67 mL/min (>60); Est Glom Filt Rate - Afr Amer 81 mL/min (>60); Estimated Creatinine Clearance 49.32 ml/min; Glucose 132 mg/dL (74-106); Potassium 3.2 mmol/L (3.5-5.1); Sodium Level 125 mmol/L (136-145)
[2021-10-26 06:45] LABS: Bedside Glucose 126 mg/dL (74-106)
[2021-10-26 07:18] VITALS: PULSE 62
[2021-10-26 07:20] LABS: Magnesium 1.3 mg/dL (1.6-2.6)
[2021-10-26 08:00] VITALS: O2SAT 96
[2021-10-26 08:34] LABS: Hemoglobin A1c 5.9 % (3.8-5.6)
[2021-10-26 09:04] VITALS: BP 144/60; PULSE 64; RESP 16; TEMP 37.1; O2SAT 96
[2021-10-26 09:08] LABS: Anion Gap 7 (5-15); BUN 8 mg/dL (7-18); BUN/Creat Ratio 7.5 RATIO (10-20); Calcium,Total 7.7 mg/dL (8.5-10.1); Chloride 92 mmol/L (98-107); Creatinine, Serum 1.06 mg/dL (0.70-1.30); EST Glomerular Filtration Rate 70 mL/min (>60); Est Glom Filt Rate - Afr Amer 85 mL/min (>60); Estimated Creatinine Clearance 51.65 ml/min; Glucose 112 mg/dL (74-106); Potassium 3.5 mmol/L (3.5-5.1); Sodium Level 127 mmol/L (136-145)
[2021-10-26] MEDS: Potassium Chloride Oral Tablet 20 MEQ 40 MEQ PO (09:10)
[2021-10-26] MEDS: Magnesium Sulfate 4gm/100mL 4 GM/100 ML IV.SOLN. IV (09:18)
[2021-10-26 11:15] LABS: Bedside Glucose 139 mg/dL (74-106)
--- NOTE | 2021-10-26 11:38 | PCM.DC ---
Discharge Instructions Diet Discharge Diet: No restrictions Activity Discharge Activity: Return to Normal Activity Weight Bearing Status: Weight bearing as tolerated Dressing / Incision Call your doctor if you observe: Fever of 101 or Higher, Numbness or Tingling, Shortness of breath, Dizziness, Chest pain, Increased palpitations (irregular heartbeat) and Calf discomfort Follow Up Care Please Follow Up With: Primary care provider When: Within the next two weeks. Test Results: Test results from this visit will be discussed in further detail at your follow-up appointment, if applicable. Discharge Plan Admission Admit Date/Time: 10/25/21 23:06 Primary Reason for Your Visit: Syncope with fall. Attending Provider: Renzo Damon Primary Care Provider: Bernard Nugent Chi Consulting Providers: Charanjit Kennedy Additional Instructions / Restrictions: * Hold your home Lasix prescription until you can follow up with Dr. Nugent. Discharge Orders/Prescriptions Prescriptions: Continued metformin 500 MG tablet 500 mg PO QHS RF: 0 pravastatin 40 MG tablet 40 mg PO QHS RF: 0 omeprazole 20 MG capsule 20 mg PO DAILY RF: 0 diltiazem HCl 120 mg capsule,extended release 24hr 120 mg PO DAILY Qty: 90 RF: 4 losartan-hydrochlorothiazide 100-25 mg tablet 1 tab PO DAILY Qty: 90 RF: 3 metoprolol succinate 100 mg tablet extended release 24 hr 100 mg PO DAILY Qty: 90 RF: 4 Eliquis 5 mg tablet See Rx Instructions .ROUTE .COMPLEX Qty: 180 RF: 0 Referrals / Follow Up: Bernard Nugent Chi, MD [Primary Care Provider] - Within 2 Weeks Disposition Disposition (needs filled in before D/C Order can be placed): Home, Self Care
--- NOTE | 2021-10-26 12:32 | PCM.DC.SUM ---
Documented by User: Evin CAMPOS 10/26/21 12:38 Providers Date of Admission: 10/25/21 Primary Care Physician: Dr. Bernard Nugent MD Reason For Visit: HYPONATREMIA Diagnosis Discharge Diagnosis (1) Syncope and collapse: Status: Acute Code(s): R55 - Syncope and collapse Medications at Discharge Home Medications metformin 500 mg PO QHS 09/19/14 omeprazole 20 mg PO DAILY 09/19/14 pravastatin 40 mg PO QHS 09/19/14 Eliquis See Rx Instructions .ROUTE .COMPLEX 10/26/21 diltiazem HCl 120 mg PO DAILY 10/26/21 losartan-hydrochlorothiazide 1 tab PO DAILY 10/26/21 metoprolol succinate 100 mg PO DAILY 10/26/21 Hospital Course Procedures 2-D Echocardiogram and Transthoracic echo Summary of Care Provided Minutes Spent on Discharge: 20 Hospital Course: Patient is an 86-year-old male who was admitted to [facility] on 10/25/2021 for evaluation management of syncope with fall. Imaging to include brain CT and cervical spine CT did not reveal any acute trauma or intracranial abnormalities. Echocardiogram was obtained and demonstrated an EF of 55 to 60%, normal LV systolic function and mild pulmonary hypertension with an RVSP of 39 mmHg. Patient was also found to have hyponatremia on admission, sodium steadily improved with administration of fluids. Patient's hyponatremia and syncope are believed to be the result of orthostatic hypotension related to patient's newly initiated Lasix prescription, which was started on October 18 and was 40 mg daily. We will hold patient's Lasix on discharge until patient can follow-up with his primary care provider. All other home medications were continued. Patient seen by Evin Huerta PA-C, under the supervision of Dr. Hernandez. Physical Exam Narrative Patient is an 85-year-old male comfortably resting in a chair, alert and orient x3. Patient denies any further syncopal episodes or perceived losses of consciousness. Denies development of any new symptoms overnight. Does not appear in acute distress. Const alert, oriented x3 and no apparent distress HEENT normocephalic, head/scalp atraumatic and hearing grossly normal bilaterally Eyes PERRL, EOMs intact bilaterally and conjunctivae normal Neck no lymphadenopathy, supple and no JVD Resp normal respiratory effort, no retractions and no use of accessory muscles Cardio regular rate, regular rhythm and no JVD GI normal to inspection, nondistended, normoactive bowel sounds and soft to palpation Extremity normal to inspection, full ROM and no clubbing, cyanosis or edema Skin no rashes or lesions noted, no wounds and skin turgor normal Neuro CN's II-XII intact bilaterally Psych affect normal Weight / BMI Weight Weight: 207 lb 7.28 oz Body Mass Index (BMI) 29.7 ABG / Lab / Microbiology Data Result Diagrams: 10/26/21 04:05 10/26/21 08:17 Laboratory: Laboratory Results - last 24 hr 10/25/21 20:30: WBC 9.1, RBC 3.79 L, Hgb 11.9 L, Hct 33.3 L, MCV 87.9, MCH 31.4, MCHC 35.7, RDW Std Deviation 39.2, RDW Coeff of Lisa 12.1, Plt Count 221, MPV 10.6, Immature Gran % (Auto) 0.600, Neut % (Auto) 80.3 H, Lymph % (Auto) 8.0 L, [place] % (Auto) 10.1 H, Eos % (Auto) 0.7, Baso % (Auto) 0.3, Absolute Neuts (auto) 7.3, Absolute Lymphs (auto) 0.73 L, Nucleated RBC % 0 10/25/21 20:30: Sodium 124 L, Potassium 3.1 L, Chloride 86 L, Carbon Dioxide 29.0, Anion Gap 9, BUN 10, Creatinine 1.38 H, Estim Creat Clear Calc 38.42, Est GFR (MDRD) Af Amer 63, Est GFR (MDRD) Non-Af 52 L, BUN/Creatinine Ratio 7.2 L, Glucose 214 H, Calcium 7.9 L, Total Bilirubin 1.60 H, AST 14 L, ALT 18, Alkaline Phosphatase 103, Troponin I High Sens 12, Total Protein 6.5, Albumin 3.2, Globulin 3.3, Albumin/Globulin Ratio 1.0 10/25/21 20:52: Ethyl Alcohol 6.0 10/25/21 20:52: Uric Acid 5.8 10/25/21 20:52: Serum Osmolality 260 L 10/25/21 21:20: Urine Color Yellow, Urine Clarity Clear, Urine pH 7.0, Ur Specific [place] 1.010, Urine Protein Negative, Urine Glucose (UA) Normal, Urine Ketones Negative, Urine Occult Blood Negative, Urine Nitrite Negative, Urine Bilirubin Negative, Urine Urobilinogen Normal, Ur Leukocyte Esterase Negative, Urine RBC 0 SEEN, Urine WBC 0 SEEN, Ur Squamous Epith Cells 0 SEEN, Urine Bacteria 0 SEEN, Urine Mucus 0 SEEN 10/25/21 21:20: Urine Osmolality 314, Ur Random Sodium 52 10/26/21 04:05: Hemoglobin A1c 5.9 H 10/26/21 04:05: Sodium 125 L, Potassium 3.2 L, Chloride 89 L, Carbon Dioxide 28.0, Anion Gap 8, BUN 9, Creatinine 1.11, Estim Creat Clear Calc 49.32, Est GFR (MDRD) Af Amer 81, Est GFR (MDRD) Non-Af 67, BUN/Creatinine Ratio 8.1 L, Glucose 132 H, Calcium 7.5 L 10/26/21 04:05: WBC 9.8, RBC 3.45 L, Hgb 10.9 L, Hct 30.0 L, MCV 87.0, MCH 31.6, MCHC 36.3 H, RDW Std Deviation 38.5, RDW Coeff of Lisa 11.9, Plt Count 204, MPV 11.0, Immature Gran % (Auto) 0.400, Neut % (Auto) 80.0 H, Lymph % (Auto) 9.[address] L, [place] % (Auto) 9.3, Eos % (Auto) 0.6, Baso % (Auto) 0.1, Absolute Neuts (auto) 7.8 H, Absolute Lymphs (auto) 0.94, Nucleated RBC % 0 10/26/21 04:05: Vitamin D 25-Hydroxy 38.0, Cortisol 10.60 10/26/21 04:05: Magnesium 1.3 L 10/26/21 06:31: POC Glucose 126 H 10/26/21 08:17: Sodium 127 L, Potassium 3.5, Chloride 92 L, Carbon Dioxide 28.0, Anion Gap 7, BUN 8, Creatinine 1.06, Estim Creat Clear Calc 51.65, Est GFR (MDRD) Af Amer 85, Est GFR (MDRD) Non-Af 70, BUN/Creatinine Ratio 7.5 L, Glucose 112 H, Calcium 7.7 L 10/26/21 08:17: Phosphorus 3.0 10/26/21 11:08: POC Glucose 139 H Radiography Diagnostic Testing: Radiology Impression Brain CT 10/25/21 20:42 IMPRESSION: 1. No evidence of acute intracranial pathology. 2. Diffuse involutional changes and chronic ischemic small vessel white matter disease. Electronically Signed: Bernard Evans MD at 22:11 EDT , Cervical Spine CT 10/25/21 20:42 IMPRESSION: No evidence of acute or healing fracture or malalignment. Electronically Signed: Bernard Evans MD at 22:14 EDT , Chest X-Ray 10/25/21 21:45 IMPRESSION: No convincing evidence for acute cardiopulmonary disease. Electronically Signed: Bernard Evans MD at 22:27 EDT , Echocardiogram 10/25/21 23:48 Interpretation Summary The estimated ejection fraction is 55-60 %. Normal LV systolic function Mild LHC/concenteric Mild TR Mild Pulmonary Hypertension'RVSP 39.1 mmhg Ordering Physician: Charanjit Kennedy Referring Physician: BERNARD NUGENT Performed By: Faiza De RDCS D/C Instructions Discharge Diet: No restrictions Weight Bearing Status: Weight bearing as tolerated Call your doctor if you observe: Fever of 101 or Higher, Numbness or Tingling, Shortness of breath, Dizziness, Chest pain, Increased palpitations (irregular heartbeat) and Calf discomfort Please Follow Up With: Primary care provider When: Within the next two weeks. Meaningful Use Info Meaningful Use Diagnoses (Choose all that apply): None applicable Discharge Plan Admission Admit Date/Time: 10/25/21 23:06 Primary Reason for Your Visit: Syncope with fall. Attending Provider: Renzo Damon Primary Care Provider: Bernard Nugent Chi Consulting Providers: Charanjit Kennedy Additional Instructions / Restrictions: * Hold your home Lasix prescription until you can follow up with Dr. Nugent. Discharge Orders/Prescriptions Prescriptions: Continued metformin 500 MG tablet 500 mg PO QHS RF: 0 pravastatin 40 MG tablet 40 mg PO QHS RF: 0 omeprazole 20 MG capsule 20 mg PO DAILY RF: 0 No Action metoprolol succinate 100 mg tablet extended release 24 hr 100 mg PO DAILY RF: 0 losartan-hydrochlorothiazide 100-25 mg tablet 1 tab PO DAILY RF: 0 diltiazem HCl 120 mg capsule,extended release 24hr 120 mg PO DAILY RF: 0 Eliquis 5 mg tablet See Rx Instructions .ROUTE .COMPLEX RF: 0 Referrals / Follow Up: Bernard Nugent Chi, MD [Primary Care Provider] - Within 2 Weeks Disposition Disposition (needs filled in before D/C Order can be placed): Home, Self Care Documented by User: Dr. Renzo Damon MD 10/26/21 13:27 Providers Date of Admission: 10/25/21 Reason For Visit: HYPONATREMIA Medications at Discharge Home Medications metformin 500 mg PO QHS 09/19/14 omeprazole 20 mg PO DAILY 09/19/14 pravastatin 40 mg PO QHS 09/19/14 Eliquis See Rx Instructions .ROUTE .COMPLEX 10/26/21 diltiazem HCl 120 mg PO DAILY 10/26/21 losartan-hydrochlorothiazide 1 tab PO DAILY 10/26/21 metoprolol succinate 100 mg PO DAILY 10/26/21 ABG / Lab / Microbiology Data Result Diagrams: 10/26/21 04:05 10/26/21 08:17 Discharge Plan Admission Admit Date/Time: 10/25/21 23:06 Primary Reason for Your Visit: Syncope with fall. Attending Provider: Renzo Damon Primary Care Provider: Bernard Nguent Chi Consulting Providers: Charanjit Kennedy Instructions Additional Instructions / Restrictions: * Hold your home Lasix prescription until you can follow up with Dr. Nugent. Discharge Orders/Prescriptions Prescriptions: Continued metformin 500 MG tablet 500 mg PO QHS RF: 0 pravastatin 40 MG tablet 40 mg PO QHS RF: 0 omeprazole 20 MG capsule 20 mg PO DAILY RF: 0 No Action metoprolol succinate 100 mg tablet extended release 24 hr 100 mg PO DAILY RF: 0 losartan-hydrochlorothiazide 100-25 mg tablet 1 tab PO DAILY RF: 0 diltiazem HCl 120 mg capsule,extended release 24hr 120 mg PO DAILY RF: 0 Eliquis 5 mg tablet See Rx Instructions .ROUTE .COMPLEX RF: 0 Referrals / Follow Up: Bernard Nugent Chi, MD [Primary Care Provider] - Within 2 Weeks Disposition Disposition (needs filled in before D/C Order can be placed): Home, Self Care Charges/Coding Addendum Addendum: Dr. Damon: I personally reviewed the chart and examined the patient, and agree with the above findings. 86-year-old male presented to the hospital after weakness and a fall. He did hit his head and he is on Eliquis for A. fib. He has not had an abnormal rhythm while being here and a CT scan of his brain was negative for hematoma. He can resume his Eliquis in the morning. Part of the other reason for [facility] was that they were assessing confusion on him and when he presented his sodium was 124, it was about 123 on October 18 of this year. He was started on IV fluids as he was started on Lasix about a week ago for edema. Given the fluid resuscitation his confusion has resolved and he says that he feels much better. He does have the strength to go home today and he does not need any physical therapy. I discussed with him the plan for discharge today and he expressed understanding of the risk and benefits of going home and would like to go home today. I do recommend that he follow-up with his PCP next week for evaluation and follow-up blood work with a BMP to monitor his sodium. He was started on Lasix 40 mg and may benefit from restarting this at a lower dose. Echo today did show mild pulmonary hypertension with an RVSP of 39 mmHg. Visit Charges OBSV E&M: 49428 Observation care discharge
--- NOTE | 2021-10-26 13:02 | CASEMGMT ---
Therapy states pt may benefit from HHC. This RN CM to room and pt states no concerns with going home today and declines need for any further therapy/resources at discharge. SStaten RN CM
[2021-10-26 13:34] VITALS: BP 143/64; PULSE 63; RESP 16; TEMP 36.3; O2SAT 95
== END 2021-10-26 11:46 | disposition home or self-care (01) ==
LOC: ED 22:44 → PCU 10-26 01:04
PROVIDERS: Admitting Provider Hospitalist; Emergency Provider Emergency Medicine; PCP Family Medicine Geriatric Medicine; Visit Provider Family Medicine
DX: I11.0 Hypertensive heart disease with heart failure (principal); I50.32 Chronic diastolic (congestive) heart failure; I27.20 Pulmonary hypertension, unspecified; I48.0 Paroxysmal atrial fibrillation; E11.9 Type 2 diabetes mellitus without complications; Z79.84 Long term (current) use of oral hypoglycemic drugs; S09.90XA Unspecified injury of head, initial encounter; E78.5 Hyperlipidemia, unspecified; R41.0 Disorientation, unspecified; Z87.891 Personal history of nicotine dependence; Y93.9 Activity, unspecified; E87.1 Hypo-osmolality and hyponatremia; N18.9 Chronic kidney disease, unspecified; E87.6 Hypokalemia; Z79.899 Other long term (current) drug therapy; G47.33 Obstructive sleep apnea (adult) (pediatric); I45.2 Bifascicular block; Z79.01 Long term (current) use of anticoagulants; Y99.9 Unspecified external cause status; W19.XXXA Unspecified fall, initial encounter; Y92.000 Kitchen of unspecified non-institutional (private) residence as the place of occurrence of the external cause
CPT/HCPCS: 36415; 70450; 71045; 72125; 80048; 80053; 81001; 82077; 82306; 82533; 82962; 83036; 83735; 83930; 83935; 84100; 84300; 84484; 84550; 85025; 93005; 93306; 96360; 96361; 97162; 97166; 99218; 99285; J7030; J7040; A4216; G0378

== ENCOUNTER → 2021-11-02 | Outpatient (CLI) | payer MEDICARE, SELFPAY ==
[2021-11-02 15:23] LABS: Urine Sodium 50 mmol/L (Not Establ.)
[2021-11-02 16:27] LABS: AST(SGOT) 17 U/L (15-37); Alanine Aminotransfer ALT/SGPT 20 U/L (16-61); Albumin, Serum 3.2 g/dL (3.2-5.0); Alkaline Phosphatase 101 U/L (45-117); Anion Gap 6 (5-15); BUN 9 mg/dL (7-18); BUN/Creat Ratio 6.5 RATIO (10-20); Calcium,Total 8.6 mg/dL (8.5-10.1); Chloride 95 mmol/L (98-107); Creatinine, Serum 1.38 mg/dL (0.70-1.30); EST Glomerular Filtration Rate 52 mL/min (>60); Est Glom Filt Rate - Afr Amer 63 mL/min (>60); Globulin 3.1 g/dL (2.2-4.2); Glucose 140 mg/dL (74-106); Potassium 3.7 mmol/L (3.5-5.1); Protein, Total 6.3 g/dL (6.4-8.2); Sodium Level 130 mmol/L (136-145)
== END | disposition home or self-care (01) ==
LOC: POLAB3 13:30
PROVIDERS: PCP Family Medicine Geriatric Medicine; Visit Provider Internal Medicine Nephrology
DX: N18.31 Chronic kidney disease, stage 3a (principal); E11.21 Type 2 diabetes mellitus with diabetic nephropathy; E87.1 Hypo-osmolality and hyponatremia
CPT/HCPCS: 36415; 80053; 84300

== ENCOUNTER 2021-12-19 10:02 | Emergency (ER) | payer MEDICARE, SELFPAY ==
[2021-12-19 10:04] VITALS: BP 149/55; PULSE 37; RESP 20; TEMP 36.2; O2SAT 98; BMI 30.1
[2021-12-19 10:19] VITALS: BP 146/64; PULSE 74; RESP 18; TEMP 36.1; O2SAT 97
[2021-12-19 10:20] VITALS: BP 146/64; PULSE 35; RESP 18; TEMP 36.1; O2SAT 97
--- NOTE | 2021-12-19 10:20 | RAD_ITS ---
INDICATION: dyspnea, orthopnea EXAMINATION/TECHNIQUE: X-RAY - XR Chest 2 Views COMPARISON: None. FINDINGS: Poor inspiratory effort is seen. LINES/DEVICES: None. LUNGS: Peribronchial cuffing bilateral hilar prominence is seen. Mild prominence of the bronchovascular interstitial lung markings in the perihilar region bilaterally, the peripheral bronchovascular markings are unremarkable. The costophrenic angles are clear bilaterally, no evidence of fluid level is seen. No evidence of pleural effusion and no evidence of pneumothorax. No evidence of parenchymal lung mass. MEDIASTINUM AND CARDIOVASCULAR STRUCTURES: Mild prominence of the cardiac mediastinal silhouette is seen, atherosclerotic calcifications visualized in the thoracic aorta there is tortuosity of the thoracic aorta seen. BONES AND SOFT TISSUES: Degenerative bone changes are seen. RAD/Chest PA and Lateral IMPRESSION: Cardiomegaly and perihilar prominence is visualized but no evidence of focal infiltrate or consolidation, correlate for mild congestive changes. Electronically Signed: Alex العراقي MD at 10:53 EDT ,
--- NOTE | 2021-12-19 10:20 | EKG12_ITS ---
Test Reason : SOB Blood Pressure : / mmHG Vent. Rate : 036 BPM Atrial Rate : 000 BPM P-R Int : 000 ms QRS Dur : 148 ms QT Int : 548 ms P-R-T Axes : 000 -28 -37 degrees QTc Int : 423 ms Atrial fibrillation Right bundle branch block Abnormal ECG Confirmed by JUNAID AZEVEDO, KEL ([id number]), index editor KEVIN WANG ([id number]) on 12/21/2021 1:55:17 PM Referred By: Lamar Confirmed By:KEL QUIROGA MD
--- NOTE | 2021-12-19 10:25 | ED.VIS.DYS ---
HPI History of Present Illness Chief Complaint: Shortness of Breath Informant: patient Onset/Context/Timing Onset: Yesterday Timing: Intermittent Quality: Positive for Dyspnea on exertion and Orthopnea Current Severity: Moderate Maximum Severity: Moderate Worsened by: Exertion and Lying flat Relieved by: Rest (And sitting up) Associated Symptoms Negative for cough Chest Pain: Positive for None Narrative Narrative: 86-year-old male started feeling dyspneic yesterday when he lay down to sleep. He states he had a hard time sleeping overnight because of orthopnea. This morning he was also little short of breath and feeling weak when he was exerting himself lightly, i.e. just walking to the car. No chest pain or near syncope/syncope, he has chronic edema in his legs and states that that has improved lately. He is anticoagulated for atrial fibrillation. He has felt no Palpitations today or yesterday. He does not usually feel any when he is in A. fib. No cough, fevers or chills, recent illness, or bleeding from anywhere. [facility] Medical History (Updated 12/19/21 @ 11:[address] Darrin Newton MD) Closed head injury Diverticula of colon Diverticulitis large intestine Diverticulosis Essential (primary) hypertension Fall Hyperlipidemia Left ventricular diastolic dysfunction Longstanding persistent atrial fibrillation Non-rheumatic tricuspid valve insufficiency Nonrheumatic mitral (valve) insufficiency Obesity Obstructive sleep apnea Paroxysmal atrial fibrillation Right bundle branch block (RBBB) with left anterior fascicular block Syncope and collapse Type 2 diabetes mellitus Home Medications omeprazole 20 mg capsule,delayed release 20 mg PO DAILY reflux 09/19/14 [History Last Taken 09/03/16 08:30] pravastatin 40 mg tablet 40 mg PO QHS cholesterol 09/19/14 [History Last Taken 09/02/16 23:00] losartan 100 mg-hydrochlorothiazide 25 mg tablet 1 tab PO DAILY blood pressure 10/26/21 [History Last Taken Unknown] apixaban 5 mg tablet (Eliquis) See Rx Instructions .Route .COMPLEX #180 TABLETS 11/17/21 [Rx Last Taken Unknown] tamsulosin 0.4 mg capsule 0.4 mg PO DAILY 12/07/21 [History Last Taken Unknown] metoprolol succinate 50 mg tablet,extended release 24 hr 50 mg PO DAILY #30 tabs 12/19/21 [Rx Last Taken Unknown] Allergy/AdvReac Type Severity Reaction Status Date / Time codeine AdvReac Other Verified 12/19/21 10:24 losartan AdvReac COUGH Verified 12/19/21 10:07 Family History (Reviewed 12/07/21 @ 10:23 by Evin Sarmiento CERTIFIED DRUG COUNSELOR, CERTIFIED DRUG COUNSELOR-C) Father CVA (cerebral vascular accident) Mother Diabetes Sister Heart disease PPM Surgical History H/O hemicolectomy History of cataract surgery History of tonsillectomy Hx of cholecystectomy Social History Smoking Status: Never smoker alcohol intake: current ROS ROS ED Constitutional Constitutional ED: Denies chills or fever(s) Eyes Eyes: Denies change in vision or diplopia ENT ENT ED: Denies rhinorrhea or sore throat Cardiovascular Cardiovascular: Reports leg edema and orthopnea; Denies chest pain or palpitations Respiratory/Chest Respiratory/Chest: Reports dyspnea on exertion and orthopnea; Denies cough Gastrointestinal Gastrointestinal: Denies abdominal pain, diarrhea, nausea or vomiting Genitourinary Genitourinary ED: Denies dysuria or hematuria Musculoskeletal Musculoskeletal: Denies back pain or neck pain Integumentary Denies abscess or rash Neurologic Neurologic: Denies headache(s), paresthesias or weakness Psychiatric Psychiatric: Denies anxiety or suicidal thoughts EXAM Physical Exam Const Vital Signs: 12/19/21 10:04 12/19/21 10:19 12/19/21 10:20 Temperature 97.2 F L 97.0 F L 97.0 F L Temperature Source Temporal Temporal Temporal Pulse Rate 37 L 74 35 L Respiratory Rate 20 H 18 18 Respiratory Effort Respiratory Depth Respiratory Pattern Blood Pressure 149/55 H 146/64 H 146/64 H Blood Pressure Mean 86 91 91 Pulse Ox 98 97 97 Oxygen Delivery Method Room Air Room Air Room Air 12/19/21 10:28 12/19/21 11:08 Temperature Temperature Source Pulse Rate 34 L Respiratory Rate 16 Respiratory Effort Non-Labored Short of Breath Respiratory Depth Normal Respiratory Pattern Normal Blood Pressure 154/64 H Blood Pressure Mean 94 Pulse Ox 95 Oxygen Delivery Method Room Air Room Air Positive well nourished and well developed General Appearance ED: well developed and NAD HEENT Reports moist mucous membranes normocephalic and atraumatic Eyes PERRL and EOMs intact bilaterally Neck full ROM, supple and no JVD Resp normal respiratory effort and clear to auscultation bilaterally Cardio regular rate, regular rhythm and no murmurs Rate: bradycardia GI non-tender and non-distended Auscultation: normoactive bowel sounds Palpation: soft Back/Spine no CVA tenderness General Back: other FROM Extremity normal to inspection General Extremety ED: Yes edema; Negative for pulses abnormal or tenderness General Extremity: edema bilateral lower extremity Details: moderate; Negative for pulses abnormal Neuro oriented x3, CN's II-XII intact bilaterally and no sensory deficits noted Sensorium / Orientation: awake and alert Motor Exam: strength 5/5 throughout Psych mental status grossly normal Skin no rashes or lesions noted and no wounds MDM MDM MDM Narrative Medical decision making narrative: Patient had an echocardiogram 2 months ago, which actually did not show much abnormality. He had mild pulmonary hypertension, but normal LV systolic function with an EF of 55-60%. There is relative bradycardia maintained in the low 30s throughout his ED visit for several hours and he had no symptoms, he did have a little lightheadedness when he walked this morning and was a little short of breath with that, but he was not near syncopal or syncopal. His chest x-ray 2 views of my interpretation shows no pleural effusions or CHF or other acute abnormality. I reviewed the radiologist interpretation. I discussed this case with cardiology Dr. Castellanos, his recommendation is to cut his metoprolol XL dose in half to 50 mg every morning in addition to discontinuing his extended release diltiazem, have him rest the rest of the day today, and he will follow-up in the office to have vital signs rechecked, I discussed with the patient and family that if he has significant dyspnea at rest, has near syncopal or syncopal episode, or any other symptoms that he is concerned about that may arise that are new, he should return to the ER for reevaluation. He is comfortable with that plan. Lab Data Attestation: I reviewed the patient's lab results. Labs: Laboratory Results - last 24 hr 12/19/21 12/19/21 12/19/21 10:27 10:27 10:27 WBC 7.9 RBC 3.92 L Hgb 11.9 L Hct 34.4 L MCV 87.8 MCH 30.4 MCHC 34.6 RDW Std Deviation 42.5 RDW Coeff of Lisa 13.2 Plt Count 189 MPV 10.9 Immature Gran % (Auto) 0.500 Neut % (Auto) 77.1 H Lymph % (Auto) 11.2 L [place] % (Auto) 8.6 Eos % (Auto) 2.3 Baso % (Auto) 0.3 Absolute Neuts (auto) 6.1 Absolute Lymphs (auto) 0.88 Nucleated RBC % 0 Sodium 132 L Potassium 3.3 L Chloride 99 Carbon Dioxide 29.0 Anion Gap 4 L BUN 11 Creatinine 1.42 H Estim Creat Clear Calc 38.56 Est GFR (MDRD) Af Amer 61 Est GFR (MDRD) Non-Af 50 L BUN/Creatinine Ratio 7.7 L Glucose 241 H Calcium 8.4 L Troponin I High Sens 22 B-Natriuretic Peptide 310.7 H Radiography Diagnostic Testing: Clinical Impression(s) from Imaging Studies Chest X-Ray 12/19/21 10:20 IMPRESSION: Cardiomegaly and perihilar prominence is visualized but no evidence of focal infiltrate or consolidation, correlate for mild congestive changes. Electronically Signed: Alex العراقي MD at 10:53 EDT Reading Location ID and State: [facility] / [place] Tel , Service support , Rhythm Strip Rhythm Strip: A-fib Rate: 38 Ectopy: None EKG Initial EKG: Attestation: I personally reviewed and interpreted this EKG as follows: Interpretation: Atrial Fibrillation, RBBB and LAFB Comments: bradycardic in 30s Prior EKG tracings: available for review Prior: Unchanged (except for rate) Discharge Plan Triage Chief Complaint: Shortness of Breath ED Provider: Darrin Newton Dx/Rx/DC Orders Clinical Impression: Symptomatic bradycardia, JORDAN (dyspnea on exertion), Orthopnea Instructions: Your Heart's Electrical System, ED Bradycardia Prescriptions: New metoprolol succinate 50 mg tablet extended release 24 hr 50 mg PO DAILY Qty: 30 0RF Continued tamsulosin 0.4 mg capsule 0.4 mg PO DAILY pravastatin 40 MG tablet 40 mg PO QHS Label Comments: CHOLESTEROL omeprazole 20 MG capsule 20 mg PO DAILY Label Comments: ACID RELUX losartan-hydrochlorothiazide 100-25 mg tablet 1 tab PO DAILY Eliquis 5 mg tablet See Rx Instructions .ROUTE .COMPLEX Qty: 180 3RF Dose Instruction: take 1 tablet by mouth twice a day Rx Instructions: take 1 tablet by mouth twice a day Discontinued metoprolol succinate 100 mg tablet extended release 24 hr 100 mg PO DAILY diltiazem HCl 120 mg capsule,extended release 24hr 120 mg PO DAILY Primary Care Provider: Bernard Nugent Chi Referrals: Bernard Nugent Chi, MD [Primary Care Provider] - Disposition Disposition: Home, Self Care
[2021-12-19 10:28] VITALS: O2SAT 96
[2021-12-19 10:39] LABS: Absolute Lymphocyte Count 0.88 X10^3/uL (0.83-4.51); Absolute Neutrophil Count 6.1 X10^3/uL (2.0-7.7); Basophil# 0.02 X10^3/uL; Basophil% 0.3 % (0-1); Eosinophil# 0.18 X10^3/uL; Eosinophils% 2.3 % (0-5); Hematocrit 34.4 % (40-54); Hemoglobin 11.9 g/dL (13.0-16.5); Lymphocyte # 0.88 X10^3/ul (0.83-4.51); Lymphocyte % 11.2 % (19-41); Mean Corp Hgb Conc 34.6 g/dL (32-36); Mean Corpuscular Hgb 30.4 pg (27.0-32.0); Mean Corpuscular Volume 87.8 fL (80-94); Mean Platelet Vol. 10.9 fl (6.2-12.0); Monocyte# 0.68 X10^3/uL; Monocyte% 8.6 % (0-10); NRBC Flagged by Analyzer 0 % (0-5); Neutrophil # 6.08 X10^3/uL (2.7-7.7); Neutrophil % 77.1 % (47-70); Platelet Count 189 K/mm3 (150-450); RBC Distribution Width CV 13.2 % (11.6-14.6); RBC Distribution Width SD 42.5 fl (35.1-43.9); Red Blood Count 3.92 M/mm3 (4.6-6.2); White Blood Count 7.9 K/mm3 (4.4-11.0)
[2021-12-19 10:57] LABS: Anion Gap 4 (5-15); BUN 11 mg/dL (7-18); BUN/Creat Ratio 7.7 RATIO (10-20); Calcium,Total 8.4 mg/dL (8.5-10.1); Chloride 99 mmol/L (98-107); Creatinine, Serum 1.42 mg/dL (0.70-1.30); EST Glomerular Filtration Rate 50 mL/min (>60); Est Glom Filt Rate - Afr Amer 61 mL/min (>60); Estimated Creatinine Clearance 38.56 ml/min; Glucose 241 mg/dL (74-106); Potassium 3.3 mmol/L (3.5-5.1); Sodium Level 132 mmol/L (136-145); Troponin-I HS 22 pg/mL (3.0-78.0)
[2021-12-19 10:58] LABS: BNP,B-Type NATRIURETIC PEPTIDE 310.7 pg/mL (0-100)
[2021-12-19 11:08] VITALS: BP 154/64; PULSE 34; RESP 16; O2SAT 95
[2021-12-19 11:46] VITALS: BP 153/101; PULSE 101; RESP 16; O2SAT 98
== END 2021-12-19 11:47 | disposition home or self-care (01) ==
PROVIDERS: Emergency Provider Emergency Medicine; PCP Family Medicine Geriatric Medicine; Visit Provider Emergency Medicine
DX: R00.1 Bradycardia, unspecified (principal); R06.09 Other forms of dyspnea; R06.01 Orthopnea; G47.33 Obstructive sleep apnea (adult) (pediatric); E78.5 Hyperlipidemia, unspecified; Z79.899 Other long term (current) drug therapy
CPT/HCPCS: 71046; 80048; 83880; 84484; 85025; 93005; 99284; A4216

== ENCOUNTER 2021-12-21 13:37 | Observation (INO) | payer MEDICARE, SELFPAY ==
[2021-12-21] VITALS (13 sets, daily range): BP systolic 139–176; BP diastolic 58–104; PULSE 36–66; RESP 16–22; TEMP 36.4–36.7; O2SAT 96–100; BMI 30.1; BMI 29.7
--- NOTE | 2021-12-21 14:06 | EKG12_ITS ---
Test Reason : sob Blood Pressure : / mmHG Vent. Rate : 036 BPM Atrial Rate : 000 BPM P-R Int : 000 ms QRS Dur : 086 ms QT Int : 532 ms P-R-T Axes : 000 -23 -54 degrees QTc Int : 411 ms Somatic/Motion Artifact Underlying rhythm: Atrial Fibrillation with 3rd Degree AV Block with Junctional Bradycardia Low voltage QRS Abnormal ECG Confirmed by MINNA AZEVEDO, CARMENCITA ([id number]), offline editor KEVIN WANG ([id number]) on 12/25/2021 11:23:02 AM Referred By: Confirmed By:CARMENCITA BUITRAGO MD
--- NOTE | 2021-12-21 14:08 | EDS_ITS ---
HPI <JAXSON Bill - Last Filed: 12/21/21 16:41> History of Present Illness Chief Complaint: Shortness of Breath Narrative Narrative: 86-year-old male with history of atrial fibrillation on Eliquis, hyperlipidemia, shortness of breath, worse with exertion presents to the emergency part with ongoing shortness of breath. Patient was seen here 2 days ago, evaluated for shortness of breath worse on exertion and orthopnea. Patient did have a cardiac work-up greater than 2 months ago which was overall normal. Patient denies any fevers or chills. Patient was walking up 10 steps today, states that he was so short of breath that he had to sit down and could not go any further. Patient also states that he is anxious at home because he is not sure what is going on and why short of breath. He denies any infectious symptoms. Denies any chest pain, near syncope, dizziness. [facility] <JAXSON Bill - Last Filed: 12/21/21 16:41> [facility] Medical History (Updated 12/21/21 @ 16:41 by JAXSON Bill) Closed head injury Diverticula of colon Diverticulitis large intestine Diverticulosis Essential (primary) hypertension Fall Hyperlipidemia Left ventricular diastolic dysfunction Longstanding persistent atrial fibrillation Non-rheumatic tricuspid valve insufficiency Nonrheumatic mitral (valve) insufficiency Obesity Obstructive sleep apnea Paroxysmal atrial fibrillation Right bundle branch block (RBBB) with left anterior fascicular block Syncope and collapse Type 2 diabetes mellitus Home Medications omeprazole 20 mg capsule,delayed release 20 mg PO DAILY reflux 09/19/14 [History Last Taken 12/21/21] pravastatin 40 mg tablet 40 mg PO QHS cholesterol 09/19/14 [History Last Taken 12/21/21] losartan 100 mg-hydrochlorothiazide 25 mg tablet 1 tab PO DAILY blood pressure 10/26/21 [History Last Taken 12/21/21] tamsulosin 0.4 mg capsule 0.4 mg PO QHS 12/07/21 [History Last Taken 12/20/21] metoprolol succinate 50 mg tablet,extended release 24 hr 50 mg PO DAILY #30 tabs 12/19/21 [Rx Last Taken 12/21/21 06:00] apixaban 5 mg tablet (Eliquis) 5 mg PO BID 12/21/21 [History Last Taken 12/21/21 ] Allergy/AdvReac Type Severity Reaction Status Date / Time codeine AdvReac Other Verified 12/21/21 13:41 lisinopril AdvReac Other Verified 12/21/21 13:42 Family History Father CVA (cerebral vascular accident) Mother Diabetes Sister Heart disease PPM Surgical History H/O hemicolectomy History of cataract surgery History of tonsillectomy Hx of cholecystectomy Social History Smoking Status: Never smoker alcohol intake: current ROS <JAXSON Bill - Last Filed: 12/21/21 16:41> ROS ED ROS Narrative Constitutional: Negative for fever, chills, weight loss, weakness Eyes: Negative for vision loss, vision change, double vision ENT: Negative for any sore throat, ear pain, congestion Cardiovascular: Negative for any chest pain, tightness, palpitations Respiratory: Negative for any cough, sputum production, hemoptysis. Positive dyspnea, dyspnea on exertion, orthopnea Gastrointestinal: Negative for any abdominal pain, nausea, vomiting, diarrhea, constipation, blood in stool, blood in vomit : Negative for any urinary frequency, dysuria, retention, blood in urine Muscle skeletal: Negative for any muscle joint pain, stiffness, myalgias, arthralgias, neck pain, back pain Neurological: Negative for any headache, syncope, numbness or tingling, dizziness Skin: Negative for any rashes, lumps, itching, abrasions, lacerations Psychiatric: Negative for any depression, anxiety, stress, suicidal ideation, homicidal ideation Hematologic: Negative for any easy bruising, excessive bruising, easy bleeding Allergies: Negative for any eczema, hives, rash EXAM <JAXSON Bill - Last Filed: 12/21/21 16:41> Physical Exam Narrative Exam Narrative: Vital signs reviewed. HEET: Head normocephalic atraumatic, TMs clear bilaterally. Posterior pharynx is clear, moist mucous membranes. Nares clear bilaterally. Neck: Supple with no lymphadenopathy or tenderness. No signs of meningismus, negative jolt sign. Cardiac: Bradycardic, this appears to be chronic, baseline no murmurs gallops or rubs, equal peripheral pulses bilaterally. Respiratory: Lungs clear to auscultation bilaterally. No chest tenderness. Abdomen: Soft, nontender, nondistended. No abdominal bruit or pulsatile masses. No hepatosplenomegaly Extremities: No peripheral edema, no pitting edema noted. No signs of cellulitis no signs of gross trauma or deformity. Active full range of motion of all extremities. Neuro: Cranial nerves II through XII intact, no focal neurological deficits. Skin: Clean dry and intact with no rash, purpura, petechiae, vesicles or pustules. Backs/flank: No CVA tenderness, no midline spinal tenderness, no deformity. Psych: Normal mood and affect. No SI, HI or acute psychosis. Const Vital Signs: 12/21/21 13:38 12/21/21 13:53 12/21/21 13:40 Temperature 98.1 F 98.1 F Temperature Source Temporal Temporal Pulse Rate 66 37 L Respiratory Rate 17 22 H Respiratory Effort Normal Non-Labored Respiratory Depth Normal Respiratory Pattern Normal Blood Pressure 156/104 H 156/58 H Blood Pressure Mean 121 90 Pulse Ox 96 99 Oxygen Delivery Method Room Air Room Air Room Air 12/21/21 14:23 Temperature Temperature Source Pulse Rate Respiratory Rate Respiratory Effort Respiratory Depth Respiratory Pattern Blood Pressure Blood Pressure Mean Pulse Ox 99 Oxygen Delivery Method Room Air <Dr. Roger Gonzalez DO - Last Filed: 12/21/21 16:49> Physical Exam Const Vital Signs: 12/21/21 13:38 12/21/21 13:53 12/21/21 13:40 Temperature 98.1 F 98.1 F Temperature Source Temporal Temporal Pulse Rate 66 37 L Respiratory Rate 17 22 H Respiratory Effort Normal Non-Labored Respiratory Depth Normal Respiratory Pattern Normal Blood Pressure 156/104 H 156/58 H Blood Pressure Mean 121 90 Pulse Ox 96 99 Oxygen Delivery Method Room Air Room Air Room Air 12/21/21 14:23 Temperature Temperature Source Pulse Rate Respiratory Rate Respiratory Effort Respiratory Depth Respiratory Pattern Blood Pressure Blood Pressure Mean Pulse Ox 99 Oxygen Delivery Method Room Air [place] <JAXSON Bill - Last Filed: 12/21/21 16:41> [place] Lab Data Labs: Laboratory Results - last 24 hr 12/21/21 12/21/21 12/21/21 14:37 14:37 14:37 WBC 8.6 RBC 4.17 L Hgb 12.5 L Hct 37.0 L MCV 88.7 MCH 30.0 MCHC 33.8 RDW Std Deviation 42.4 RDW Coeff of Lisa 13.0 Plt Count 199 MPV 11.5 Immature Gran % (Auto) 0.500 Neut % (Auto) 79.9 H Lymph % (Auto) 10.6 L Storey % (Auto) 7.9 Eos % (Auto) 0.8 Baso % (Auto) 0.3 Absolute Neuts (auto) 6.9 Absolute Lymphs (auto) 0.91 Nucleated RBC % 0 PT 16.9 H INR 1.4 D-Dimer Quant (PE/DVT) 1.02 H* Sodium 132 L Potassium 3.6 Chloride 95 L Carbon Dioxide 30.0 Anion Gap 7 BUN 11 Creatinine 1.40 H Estim Creat Clear Calc 39.11 Est GFR (MDRD) Af Amer 62 Est GFR (MDRD) Non-Af 51 L BUN/Creatinine Ratio 7.9 L Glucose 213 H Calcium 8.4 L Troponin I High Sens 20 B-Natriuretic Peptide 12/21/21 14:37 WBC RBC Hgb Hct MCV MCH MCHC RDW Std Deviation RDW Coeff of Lisa Plt Count MPV Immature Gran % (Auto) Neut % (Auto) Lymph % (Auto) Storey % (Auto) Eos % (Auto) Baso % (Auto) Absolute Neuts (auto) Absolute Lymphs (auto) Nucleated RBC % PT INR D-Dimer Quant (PE/DVT) Sodium Potassium Chloride Carbon Dioxide Anion Gap BUN Creatinine Estim Creat Clear Calc Est GFR (MDRD) Af Amer Est GFR (MDRD) Non-Af BUN/Creatinine Ratio Glucose Calcium Troponin I High Sens B-Natriuretic Peptide 334.0 H Radiography Diagnostic Testing: Clinical Impression(s) from Imaging Studies Chest X-Ray 12/21/21 14:20 IMPRESSION: No radiographic evidence of acute cardiopulmonary disease. Electronically Signed: Alex العراقي MD at 14:53 EDT , Chest CTA 12/21/21 15:34 IMPRESSION: No demonstrated pulmonary embolism or arterial dissection. Cardiomegaly. Atherosclerosis. Scattered osseous radiolucencies, may be secondary to demineralization however cannot exclude a neoplastic process. Electronically Signed: Savana Dubois MD at 16:06 EDT , EKG Bradycardia, junctional: Attestation: I personally reviewed and interpreted this EKG as follows: Comments: Junctional bradycardia with occasional premature ventricular complex, rate of 36 bpm Treatment and Re-Evaluation Narrative: Patient is in no distress, patient appears nontoxic, vital signs are stable. Patient presents for the second time in 3 days secondary to shortness of breath on exertion, bradycardia. Patient on his last visit 2 days ago was taken off his metoprolol which was cut in half from 100-50, he was also taken off his long-acting diltiazem. Patient continues to be short of breath on exertion, heart rate of 37, possible junctional rhythm. I did speak with cardiology who recommended admission. Patient did receive a full cardiac work-up here. Patient's chest x-ray interpreted by ER physician shows no acute process. Patient's laboratory studies show normal CBC, chemistries show slight renal dysfunction however this is baseline. Patient's proBNP is 334, this is consistent over the last 2 months. Patient's troponin was negative. Patient's D-dimer was elevated, due to the patient's shortness of breath, patient did receive a CT of the chest which was negative for any pulmonary embolus, aortic dissection. Patient will be admitted to the hospitalist, will follow-up with cardiology here. Patient is stable for admission. <Dr. Roger Gonzalez, DO - Last Filed: 12/21/21 16:49> [facility] Narrative Medical decision making narrative: I performed a history and physical examination of the patient and discussed management plan with the physician development assistant. I reviewed the physician development assistant's note and agree with the documented findings and plan of care. basic blood work showed an elevated D-dimer but CTA was negative. Despite decreasing his metoprolol he remains in a bradycardic rhythm. He does state that he felt well yesterday but his symptoms returned again today. He appears to be in a junctional rhythm on the monitor. My concern is whether or not he needs a pacemaker. Spoke with cardiology plan is admission. Roger Gonzalez DO, MS Lab Data Attestation: I reviewed the patient's lab results. Labs: Laboratory Results - last 24 hr 12/21/21 12/21/21 12/21/21 14:37 14:37 14:37 WBC 8.6 RBC 4.17 L Hgb 12.5 L Hct 37.0 L MCV 88.7 MCH 30.0 MCHC 33.8 RDW Std Deviation 42.4 RDW Coeff of Lisa 13.0 Plt Count 199 MPV 11.5 Immature Gran % (Auto) 0.500 Neut % (Auto) 79.9 H Lymph % (Auto) 10.6 L Storey % (Auto) 7.9 Eos % (Auto) 0.8 Baso % (Auto) 0.3 Absolute Neuts (auto) 6.9 Absolute Lymphs (auto) 0.91 Nucleated RBC % 0 PT 16.9 H INR 1.4 D-Dimer Quant (PE/DVT) 1.02 H* Sodium 132 L Potassium 3.6 Chloride 95 L Carbon Dioxide 30.0 Anion Gap 7 BUN 11 Creatinine 1.40 H Estim Creat Clear Calc 39.11 Est GFR (MDRD) Af Amer 62 Est GFR (MDRD) Non-Af 51 L BUN/Creatinine Ratio 7.9 L Glucose 213 H Calcium 8.4 L Troponin I High Sens 20 B-Natriuretic Peptide 12/21/21 14:37 WBC RBC Hgb Hct MCV MCH MCHC RDW Std Deviation RDW Coeff of Lisa Plt Count MPV Immature Gran % (Auto) Neut % (Auto) Lymph % (Auto) Storey % (Auto) Eos % (Auto) Baso % (Auto) Absolute Neuts (auto) Absolute Lymphs (auto) Nucleated RBC % PT INR D-Dimer Quant (PE/DVT) Sodium Potassium Chloride Carbon Dioxide Anion Gap BUN Creatinine Estim Creat Clear Calc Est GFR (MDRD) Af Amer Est GFR (MDRD) Non-Af BUN/Creatinine Ratio Glucose Calcium Troponin I High Sens B-Natriuretic Peptide 334.0 H Radiography Diagnostic Testing: Clinical Impression(s) from Imaging Studies Chest X-Ray 12/21/21 14:20 IMPRESSION: No radiographic evidence of acute cardiopulmonary disease. Electronically Signed: Alex العراقي MD at 14:53 EDT , Chest CTA 12/21/21 15:34 IMPRESSION: No demonstrated pulmonary embolism or arterial dissection. Cardiomegaly. Atherosclerosis. Scattered osseous radiolucencies, may be secondary to demineralization however cannot exclude a neoplastic process. Electronically Signed: Savana Dubois MD at 16:06 EDT , Discharge Plan Dx/Rx/DC Orders Clinical Impression: SOB (shortness of breath) on exertion, Bradycardia, Junctional rhythm, History of acute heart failure, Chronic renal insufficiency, stage III (moderate) Disposition Disposition: Acute Care [facility]
--- NOTE | 2021-12-21 14:20 | RAD_ITS ---
INDICATION: chest pain EXAMINATION/TECHNIQUE: X-RAY - XR Chest 1 View COMPARISON: 12/19/2021. FINDINGS: LINES/DEVICES: None. LUNGS: No consolidation, edema or effusion. No pneumothorax. MEDIASTINUM AND CARDIOVASCULAR STRUCTURES: Cardiac silhouette not enlarged. Central airways and mediastinal contour are unremarkable. BONES AND SOFT TISSUES: Unremarkable. RAD/Chest 1 View (Portable) IMPRESSION: No radiographic evidence of acute cardiopulmonary disease. Electronically Signed: Alex العراقي MD at 14:53 EDT ,
[2021-12-21 14:51] LABS: Absolute Lymphocyte Count 0.91 X10^3/uL (0.83-4.51); Absolute Neutrophil Count 6.9 X10^3/uL (2.0-7.7); Basophil# 0.03 X10^3/uL; Basophil% 0.3 % (0-1); Eosinophil# 0.07 X10^3/uL; Eosinophils% 0.8 % (0-5); Hemoglobin 12.5 g/dL (13.0-16.5); Lymphocyte # 0.91 X10^3/ul (0.83-4.51); Lymphocyte % 10.6 % (19-41); Mean Corp Hgb Conc 33.8 g/dL (32-36); Mean Corpuscular Volume 88.7 fL (80-94); Mean Platelet Vol. 11.5 fl (6.2-12.0); Monocyte# 0.68 X10^3/uL; Monocyte% 7.9 % (0-10); NRBC Flagged by Analyzer 0 % (0-5); Neutrophil # 6.86 X10^3/uL (2.7-7.7); Neutrophil % 79.9 % (47-70); Platelet Count 199 K/mm3 (150-450); RBC Distribution Width SD 42.4 fl (35.1-43.9); Red Blood Count 4.17 M/mm3 (4.6-6.2); White Blood Count 8.6 K/mm3 (4.4-11.0)
[2021-12-21 14:59] LABS: International Normalized Ratio 1.4; Prothrombin Time (Protime)PT. 16.9 SECONDS (11.7-14.9)
[2021-12-21 15:17] LABS: D-Dimer Quantitative (DVT/PE) 1.02 FEU/ug/m (0.27-0.49)
[2021-12-21 15:22] LABS: Anion Gap 7 (5-15); BUN 11 mg/dL (7-18); BUN/Creat Ratio 7.9 RATIO (10-20); Calcium,Total 8.4 mg/dL (8.5-10.1); Chloride 95 mmol/L (98-107); EST Glomerular Filtration Rate 51 mL/min (>60); Est Glom Filt Rate - Afr Amer 62 mL/min (>60); Estimated Creatinine Clearance 39.11 ml/min; Glucose 213 mg/dL (74-106); Potassium 3.6 mmol/L (3.5-5.1); Sodium Level 132 mmol/L (136-145); Troponin-I HS (w/2H Reflex) 20 pg/mL (3.0-78.0)
--- NOTE | 2021-12-21 15:34 | CT_ITS ---
STUDY: CTA CHEST REASON FOR EXAM: Male, 86 years old. Concern for pulmonary embolus. Chest pain. RADIATION DOSAGE (If Supplied By Facility): CTDIvol = ( 14.52 ) mGy, DLP = ( 593.79 ) mGycm TECHNIQUE: The examination was performed with the intravenous administration of IV 100mL Isovue-370. Post-processing of the angiographic images was performed, with multiplanar reformation and 3D reconstruction. Individualized dose optimization techniques were used for this CT. COMPARISON: CT of the abdomen and pelvis dated 05/22/2018 FINDINGS: Normal enhancement of the main pulmonary artery and right and left pulmonary arteries. Normal enhancement of the bilateral peripheral pulmonary arteries. There is no demonstrated pulmonary embolism. There are peripheral calcifications of the thoracic aorta. There is no demonstrated aortic dissection. There are calcifications of the coronary arteries. There is cardiomegaly. Normal mediastinum. Normal hilar regions. Normal visualized trachea and bronchi. The lungs are well expanded. Normal pulmonary parenchyma. Normal pleura. There are degenerative changes of thoracic spine. There are scattered osseous radiolucencies. Normal visualized upper abdomen. CT/CTA Chest W/WO Contrast IMPRESSION: No demonstrated pulmonary embolism or arterial dissection. Cardiomegaly. Atherosclerosis. Scattered osseous radiolucencies, may be secondary to demineralization however cannot exclude a neoplastic process. Electronically Signed: Savana Dubois MD at 16:06 EDT ,
[2021-12-21 16:47] LABS: Reflex Troponin-HS? (from REC) Y
--- NOTE | 2021-12-21 16:48 | PCM.HP.STD ---
[facility] - General General Date of Admission: 12/21/21 Date of Service: 12/21/21 Chief Complaint: Patient is short of breath for last 2 days, getting worse HPI Narrative ASHIA PEREZ, is a 86 M with history of paroxysmal A. fib with RVR on metoprolol succinate and diltiazem LA came to ED 2 days ago for shortness of breath. Denies chest pain/pressure. At that time, his diltiazem LA was discontinued and metoprolol succinate dose decreased from 100 mg to 50 mg daily. Patient felt better yesterday but today got more short of breath more so over with exertion and orthopnea. Patient could not walk more than 10 steps because of shortness of breath and needs to sit down. Patient denies fever chills, new URI symptoms except mild cough, dysuria or new lower admitted symptoms, abdominal pain, nausea vomiting or constipation. His usual bowel movement is soft due to dissection of colon but at times can be liquid. No GI bleed. In ED, EKG showed junctional bradycardia 36 bpm, occasional PVC. QTC 411 ms. Chest x-ray and CTA chest individually reviewed. No evidence of acute cardiopulmonary disease. Chest no demonstrated PE or arterial dissection. Patient has bilateral leg swelling/edema for 3 to 4 months stating it has gotten better as he is on lisinopril HCTZ. Labs reviewed and discussed in assessment and plan REPLACED BY [facility] Medical History Closed head injury Diverticula of colon Diverticulitis large intestine Diverticulosis Essential (primary) hypertension Fall Hyperlipidemia Left ventricular diastolic dysfunction Longstanding persistent atrial fibrillation Non-rheumatic tricuspid valve insufficiency Nonrheumatic mitral (valve) insufficiency Obesity Obstructive sleep apnea Paroxysmal atrial fibrillation Right bundle branch block (RBBB) with left anterior fascicular block Syncope and collapse Type 2 diabetes mellitus Home Medications omeprazole 20 mg capsule,delayed release 20 mg PO DAILY reflux 09/19/14 [History Last Taken 12/21/21] pravastatin 40 mg tablet 40 mg PO QHS cholesterol 09/19/14 [History Last Taken 12/21/21] losartan 100 mg-hydrochlorothiazide 25 mg tablet 1 tab PO DAILY blood pressure 10/26/21 [History Last Taken 12/21/21] tamsulosin 0.4 mg capsule 0.4 mg PO QHS 12/07/21 [History Last Taken 12/20/21] metoprolol succinate 50 mg tablet,extended release 24 hr 50 mg PO DAILY #30 tabs 12/19/21 [Rx Last Taken 12/21/21 06:00] apixaban 5 mg tablet (Eliquis) 5 mg PO BID 12/21/21 [History Last Taken 12/21/21] Allergy/AdvReac Type Severity Reaction Status Date / Time codeine AdvReac Other Verified 12/21/21 13:41 lisinopril AdvReac Other Verified 12/21/21 13:42 Family History Father CVA (cerebral vascular accident) Mother Diabetes Sister Heart disease PPM Surgical History H/O hemicolectomy History of cataract surgery History of tonsillectomy Hx of cholecystectomy Social History Smoking Status: Never smoker alcohol intake: current ROS ROS Narrative Constitutional: Reports fatigue and weakness, dyspnea on mild exertion. HEENT: Reports systems reviewed and no addt'l complaints, except as documented Respiratory/Chest: As described in HPI Gastrointestinal: As mentioned in HPI Genitourinary: Denies burning urination or new urinary tract symptoms Musculoskeletal: Mild bilateral knee and hip chronic arthritis pain on walking. Neurologic: Denies seizure-like activity. No focal weakness or numbness skin: No ulcer. No rash Endocrinology: Reports systems reviewed and no addt'l complaints, except as documented Hematologic/Lymphatic: Reports systems reviewed and no addt'l complaints, except as documented Rest 14 ROS are negative except as mentioned in HPI Vital Signs Vital Signs Vital Signs: 12/21/21 13:38 12/21/21 13:53 12/21/21 13:40 Temperature 98.1 F 98.1 F Temperature Source Temporal Temporal Pulse Rate 66 37 L Respiratory Rate 17 22 H Respiratory Effort Normal Non-Labored Respiratory Depth Normal Respiratory Pattern Normal Blood Pressure 156/104 H 156/58 H Blood Pressure Mean 121 90 Pulse Ox 96 99 Oxygen Delivery Method Room Air Room Air Room Air 12/21/21 14:23 Temperature Temperature Source Pulse Rate Respiratory Rate Respiratory Effort Respiratory Depth Respiratory Pattern Blood Pressure Blood Pressure Mean Pulse Ox 99 Oxygen Delivery Method Room Air Weight Weight: 210 lb Body Mass Index (BMI) 30.1 Physical Exam Narrative General: Alert, Oriented x3, Cooperative HEENT: Atraumatic, PERRLA, EOMI, Normocephalic Oral: No Gingival or Mucosal Lesions/ Ulcerations Neck: Supple, No JVD, Negative Carotid Bruits Lungs: Air entry equal in both legs. No crepitation/rhonchi. Mild dyspnea on conversation/exertion Cardiovascular: Severe bradycardia, Normal S1, Normal S2, subtle grade 3/6 systolic murmur over LLSB Abdomen: Bowel Sounds Present, Soft, Non Tender, Non-Distended : No renal angle tenderness. No suprapubic tenderness. Extremities: Bilateral 2+ below-knee pitting edema, Capillary Refill Less than 3 Seconds Skin: No rashes, No breakdown Musculoskeletal: No Tenderness to Palpation of Joints or Extremities. Range of motion full Neurological: Cranial nerves II-XII grossly intact, DTR 2+/4 and Symmetrical, Neuro grossly intact Psych/Mental Status: Normal Affect, Appropriate. Results Lab / Micro Data Result Diagrams: 12/21/21 14:37 12/21/21 14:37 Labs: Laboratory Results - last 24 hr 12/21/21 14:37: WBC 8.6, RBC 4.17 L, Hgb 12.5 L, Hct 37.0 L, MCV 88.7, MCH 30.0, MCHC 33.8, RDW Std Deviation 42.4, RDW Coeff of Lisa 13.0, Plt Count 199, MPV 11.5, Immature Gran % (Auto) 0.500, Neut % (Auto) 79.9 H, Lymph % (Auto) 10.6 L, [place] % (Auto) 7.9, Eos % (Auto) 0.8, Baso % (Auto) 0.3, Absolute Neuts (auto) 6.9, Absolute Lymphs (auto) 0.91, Nucleated RBC % 0 12/21/21 14:37: Sodium 132 L, Potassium 3.6, Chloride 95 L, Carbon Dioxide 30.0, Anion Gap 7, BUN 11, Creatinine 1.40 H, Estim Creat Clear Calc 39.11, Est GFR (MDRD) Af Amer 62, Est GFR (MDRD) Non-Af 51 L, BUN/Creatinine Ratio 7.9 L, Glucose 213 H, Calcium 8.4 L, Troponin I High Sens 20 12/21/21 14:37: PT 16.9 H, INR 1.4, D-Dimer Quant (PE/DVT) 1.02 H* 12/21/21 14:37: B-Natriuretic Peptide 334.0 H Radiology Impression Chest X-Ray 12/21/21 14:20 IMPRESSION: No radiographic evidence of acute cardiopulmonary disease. Electronically Signed: Alex العراقي MD at 14:53 EDT , Chest CTA 12/21/21 15:34 IMPRESSION: No demonstrated pulmonary embolism or arterial dissection. Cardiomegaly. Atherosclerosis. Scattered osseous radiolucencies, may be secondary to demineralization however cannot exclude a neoplastic process. Electronically Signed: Savana Dubois MD at 16:06 EDT , Assessment & Plan Assessment/Plan (1) Symptomatic bradycardia: PLAN: Plan This is a 86-year-old question gentleman admitted with shortness of breath on mild exertion probably due to junctional bradycardia. 1. Acute dyspnea on mild exertion possible due to junctional bradycardia, rule out ACS: Patient does not have chest pain/tightness. Admitted in PCU on nuclear monitoring technician. Serial troponin. Discussed with treasury representative and consult requested. Metoprolol succinate held. Diltiazem LA discontinued 2 days ago. Patient on Eliquis took morning dose today. Continue pravastatin. 2. Chronic HFpEF, paroxysmal A. fib: Patient last 2D echo in October 2021 reviewed EF 55 to 60%, mild LVH, normal LV systolic function, mild TR, RVSP 39 mmHg. No need to repeat echo. Patient is still has leg swelling but BNP is similar since October 2021. Lung auscultatory finding and CT chest reported no acute cardiopulmonary abnormality. Lasix 40 mill IV 1 dose given for leg swelling and will reevaluate tomorrow. 3. Chronic hyponatremia probably due to diuretic, HCTZ: Patient sodium 132, potassium 3.6 chloride 95, anion gap 7, bicarb 30. Sodium is similar around 130 since October 2021. Patient was last admitted in October 2019 for fall and hyponatremia. Hold HCTZ for hyponatremia. 4. CKD stage IIIb possible due to diuretic: Patient creatinine is near constant 1.40 since October 2021. 5. Other comorbidities include hypertension and diabetes mellitus type 2: Glucose in BMP 213. Accu-Chek insulin is covered with Humalog sliding scale. Blood pressure is elevated in systolic 156. Continue lisinopril Living will/advanced directive/end of life care: Patient does have living will or advanced directive. His daughter is power of disability attorney for health after discussion of benefits/risks procedures involved with full code, DNR CC arrest and DNR CC, the patient opted for DNRCC arrest with no intubation. Patient was educated about DNRCC arrest that usual treatment and management will not be withdrawn. Patient does want artificial life support including intubation, tube feed, ventilator and/chest compression, central venous catheter, vasopressor and DC shock if needed Total time spent in [id number] encounter in discussion of advanced directive 16 minutes. Charges/Coding Visit Charges OBSV E&M: 50568 Initial observation care L3 Procedures Hospitalists Procedures: 61694 Advncd Care Plan 30 Min
[2021-12-21 17:20] LABS: Magnesium 1.4 mg/dL (1.6-2.6); Phosphorus 3.4 mg/dL (2.5-4.9)
[2021-12-21 17:37] LABS: Troponin-I HS 21 pg/mL (3.0-78.0)
[2021-12-21] MEDS: 0.9% Saline Lock 10 ML Syringe IV (17:54)
[2021-12-21] MEDS: Furosemide 40 MG/4 ML Vial IV (17:54)
[2021-12-21 18:39] LABS: Urine Sodium 47 mmol/L (Not Establ.)
[2021-12-21 19:56] LABS: Osmolality, Urine 261 mOsm/KG
[2021-12-21 21:04] LABS: Troponin-I HS 23 pg/mL (3.0-78.0)
[2021-12-21 21:09] LABS: Osmolality, Serum 285 mOsm/KG (280-301)
[2021-12-21] MEDS: Tamsulosin HCl 0.4 MG Capsule PO (21:14)
[2021-12-21] MEDS: APIXABAN 5 MG TABLET PO (21:14)
[2021-12-22] VITALS (8 sets, daily range): BP systolic 126–144; BP diastolic 53–86; PULSE 36–83; RESP 14–18; TEMP 36.6–36.8; O2SAT 98
[2021-12-22] MEDS: MELATONIN 10 MG TABLET PO (01:36)
[2021-12-22 06:33] LABS: Absolute Lymphocyte Count 1.02 X10^3/uL (0.83-4.51); Absolute Neutrophil Count 5.9 X10^3/uL (2.0-7.7); Basophil# 0.03 X10^3/uL; Basophil% 0.4 % (0-1); Eosinophil# 0.16 X10^3/uL; Hematocrit 31.2 % (40-54); Hemoglobin 10.9 g/dL (13.0-16.5); Lymphocyte # 1.02 X10^3/ul (0.83-4.51); Mean Corp Hgb Conc 34.9 g/dL (32-36); Mean Corpuscular Hgb 30.3 pg (27.0-32.0); Mean Corpuscular Volume 86.7 fL (80-94); Mean Platelet Vol. 11.8 fl (6.2-12.0); Monocyte# 0.77 X10^3/uL; Monocyte% 9.8 % (0-10); NRBC Flagged by Analyzer 0 % (0-5); Neutrophil # 5.85 X10^3/uL (2.7-7.7); Neutrophil % 74.4 % (47-70); Platelet Count 190 K/mm3 (150-450); RBC Distribution Width SD 41.1 fl (35.1-43.9); White Blood Count 7.9 K/mm3 (4.4-11.0)
[2021-12-22 07:21] LABS: Anion Gap 8 (5-15); BUN 11 mg/dL (7-18); BUN/Creat Ratio 7.7 RATIO (10-20); Calcium,Total 8.3 mg/dL (8.5-10.1); Chloride 98 mmol/L (98-107); Cholesterol 85 mg/dL (200); Creatinine, Serum 1.42 mg/dL (0.70-1.30); EST Glomerular Filtration Rate 50 mL/min (>60); Est Glom Filt Rate - Afr Amer 61 mL/min (>60); Estimated Creatinine Clearance 38.56 ml/min; Glucose 130 mg/dL (74-106); High Density Lipoprotein 39 mg/dL; Potassium 3.1 mmol/L (3.5-5.1); Sodium Level 134 mmol/L (136-145); Thyroid Stim Hormone (TSH) 3.25 uIU/mL (0.358-3.74); Triglycerides 73 mg/dL; Very Low Density Lipoprotein 15 mg/dL (5-40)
[2021-12-22] MEDS: Potassium Chloride Oral Tablet 20 MEQ 40 MEQ PO ×2 (08:03→11:31)
[2021-12-22] MEDS: Pantoprazole Sodium 20 MG Tablet PO (08:03)
[2021-12-22] MEDS: Pravastatin 40 MG Tablet PO (08:03)
[2021-12-22] MEDS: Losartan Potassium 100 MG Tablet PO (09:50)
[2021-12-22] MEDS: APIXABAN 5 MG TABLET PO (09:50)
--- NOTE | 2021-12-22 10:31 | PCM.DC ---
Discharge Instructions Diet Discharge Diet: 6 Cup Fluid Restriction and 2000 mg Sodium Diet Activity Discharge Activity: May Not Drive Dressing / Incision Call your doctor if you observe: Fever of 101 or Higher, Coldness, Increased Pain, Numbness or Tingling, Change in Color, Inability to urinate, Inability to have a bowel movement, Shortness of breath, Dizziness, Fainting spells, Swelling in the ankles, Chest pain, Prolonged hiccupping, Increased palpitations (irregular heartbeat), Calf discomfort and Uncontrolled pain Follow Up Care Test Results: Test results from this visit will be discussed in further detail at your follow-up appointment, if applicable. Discharge Plan Admission Admit Date/Time: 12/21/21 16:39 Primary Reason for Your Visit: Junctional bradycardia Attending Provider: Maynor Duran Primary Care Provider: Bernard Nugent Chi Consulting Providers: Alaan Conklin Instructions Additional Instructions / Restrictions: 48 hours Holter monitor to be taken care of by non ferrous material handler. Discussed with Muriel Bonilla Discharge Orders/Prescriptions Prescriptions: New sennosides-docusate sodium [Stool Softener-Stimulant Laxat] 8.6-50 mg Tablet 2 tab PO BID PRN PRN (Reason: Constipation) Qty: 0 0RF Rx Instructions: Auuo-pea-jgrulzc losartan 100 mg Tablet 100 mg PO DAILY Qty: 30 2RF metoprolol tartrate 25 mg Tablet 25 mg PO DAILY Qty: 30 2RF furosemide 40 mg tablet 40 mg PO DAILY Qty: 30 0RF Rx Instructions: Hold if creatinine is more than 0.5 mg/dL above the baseline Continued tamsulosin 0.4 mg capsule 0.4 mg PO QHS pravastatin 40 MG tablet 40 mg PO QHS Label Comments: CHOLESTEROL omeprazole 20 MG capsule 20 mg PO DAILY Label Comments: ACID RELUX Eliquis 5 mg tablet 5 mg PO BID Rx Instructions: take 1 tablet by mouth twice a day Discontinued losartan-hydrochlorothiazide 100-25 mg tablet 1 tab PO DAILY metoprolol succinate 50 mg tablet extended release 24 hr 50 mg PO DAILY Qty: 30 0RF Referrals / Follow Up: Shaila Haq DO [Med Staff - Consulting] - Within 1 Month (FOR CKD. Follow-up for diuretic adjustment.) Rodolfo Tobias MD [Med Staff - Active Staff] - Within 1 Month (FOR A. fib with tachybradycardia syndrome.) Bernard Nugent Chi, MD [Primary Care Provider] - Within 1 Week Disposition Disposition (needs filled in before D/C Order can be placed): Home, Self Care
[2021-12-22] MEDS: Metoprolol Tartrate 25 MG Tablet PO (11:31)
--- NOTE | 2021-12-22 12:15 | CON.PCM.CA_ITS ---
Assessment & Plan Assessment/Plan (1) Junctional rhythm: (2) Longstanding persistent atrial fibrillation: (3) Essential (primary) hypertension: (4) Hyperlipidemia: QUALIFIERS: Hyperlipidemia type: unspecified Qualified Code(s): E78.5 - Hyperlipidemia, unspecified (5) Symptomatic bradycardia: PLAN: Plan * would like for pt to be d/c home on metoprolol 25 mg a day * will follow up in the office in a few weeks after a 24 HM has been obtained * would like to obtain a 24 HM to assess for arrhythmias, concerned that he may need a PPM in the future * this was discussed with the patient HPI Consult Data Date of Consult: 12/22/21 HPI Narrative HPI Narrative: ASHIA PEREZ, is a 86 M who presented to the ER for symptomatic bradycardia. He has a history of paroxysmal atrial fibrillation, hypertension, and chronic right bundle branch block. In October he presented to the ER for syncope. His Metoprolol was decreased from 100 mg to 50 mg. He then presented back to the ER, 12/19/21, for increase SOB. He he was noted to be bradycardic. His Diltiazem was stopped. He then noted that he had a HR in the 30's. Rhythm indicated that it was junctional. His metoprolol has been decreased to 25 mg. Pt notes that he is symptomatic with his low HRs. He feels lightheaded and di zzy. [facility] Medical History Atrial fibrillation Closed head injury Diverticula of colon Diverticulitis large intestine Diverticulosis Essential (primary) hypertension Fall Hyperlipidemia Hypertension Left ventricular diastolic dysfunction Longstanding persistent atrial fibrillation Non-rheumatic tricuspid valve insufficiency Non-smoker Nonrheumatic mitral (valve) insufficiency Obesity Obstructive sleep apnea Paroxysmal atrial fibrillation Right bundle branch block (RBBB) with left anterior fascicular block Sleep apnea Type 2 diabetes mellitus Home Medications omeprazole 20 mg capsule,delayed release 20 mg PO DAILY reflux 09/19/14 [History Last Taken 12/21/21] pravastatin 40 mg tablet 40 mg PO QHS cholesterol 09/19/14 [History Last Taken 12/21/21] losartan 100 mg-hydrochlorothiazide 25 mg tablet 1 tab PO DAILY blood pressure 10/26/21 [History Last Taken 12/21/21] tamsulosin 0.4 mg capsule 0.4 mg PO QHS 12/07/21 [History Last Taken 12/20/21] metoprolol succinate 50 mg tablet,extended release 24 hr 50 mg PO DAILY #30 tabs 12/19/21 [Rx Last Taken 12/21/21 06:00] apixaban 5 mg tablet (Eliquis) 5 mg PO BID 12/21/21 [History Last Taken 12/21/21] Allergy/AdvReac Type Severity Reaction Status Date / Time codeine AdvReac Other Verified 12/21/21 13:41 lisinopril AdvReac Other Verified 12/21/21 13:42 Family History Father CVA (cerebral vascular accident) Mother Diabetes Sister Heart disease PPM Surgical History H/O hemicolectomy History of appendectomy History of cataract surgery History of tonsillectomy Hx of cholecystectomy Social History Smoking Status: Never smoker alcohol intake: current ROS Constitutional Constitutional: Reports as per HPI Eyes Eyes: Reports other Details: decreased vision, not new. ENT HEENT: Reports dizziness; Denies tinnitus or vertigo Cardiovascular Cardiovascular: Reports arrhythmia on telemetry, dizziness, dyspnea, flutter in chest, lightheadedness and palpitations; Denies chest pain or nausea Respiratory/Chest Respiratory/Chest: Denies dyspnea, shortness of breath with exertion or wheezing Musculoskeletal Musculoskeletal: Reports myalgias; Denies muscle weakness Physical Exam Const alert, oriented x3, no apparent distress and healthy appearing HEENT normocephalic, head/scalp atraumatic, hearing grossly normal bilaterally, external ears normal, external nose normal and moist oral mucous membranes Eyes PERRL, EOMs intact bilaterally, conjunctivae normal and no scleral icterus Neck no lymphadenopathy, supple and no JVD Resp normal respiratory effort and clear to auscultation bilaterally Cardio regular rate, S1 normal heart sound, S2 normal heart sound, no murmurs, no rub, no gallops, no clicks, no JVD and peripheral pulses 2+ throughout Rhythm: abnormal rhythm irregularly irregular GI normal to inspection, nondistended, normoactive bowel sounds, soft to palpation, non-tender and non-distended Extremity normal to inspection, normal capillary refill, no clubbing, cyanosis or edema and no pedal edema Neuro oriented x3, CN's II-XII intact bilaterally, moves all extremities and no focal motor deficits Psych cooperative and affect normal Risk Stratification Risk Stratification Applicable: No Charges/Coding Visit Charges Office Visits / Consults: 28210 IP Consult L3 Objective Data Vital Signs: Vital Signs Temp Pulse Resp BP Pulse Ox O2 Del Method 97.8 F 71 16 126/65 H 98 Room Air 12/22/21 11:30 12/22/21 11:31 12/22/21 11:30 12/22/21 11:31 12/22/21 11:30 12/22/21 11:30 Oxygen Delivery Method Room Air Weight: 203 lb 11.314 oz Body Mass Index (BMI) 29.7 Intake & Output: Intake and Output for Last 24 Hours 12/20/21 12/21/21 12/22/21 23:59 23:59 23:59 Intake Total 414 / 414 Output Total 200 / 200 625 / 625 Balance -200 / -46 -211 / -211 Lab / Micro Data Result Diagrams: 12/22/21 05:27 12/22/21 05:27 Labs: Laboratory Results - last 24 hr 12/21/21 14:37: WBC 8.6, RBC 4.17 L, Hgb 12.5 L, Hct 37.0 L, MCV 88.7, MCH 30.0, MCHC 33.8, RDW Std Deviation 42.4, RDW Coeff of Lisa 13.0, Plt Count 199, MPV 11.5, Immature Gran % (Auto) 0.500, Neut % (Auto) 79.9 H, Lymph % (Auto) 10.6 L, [place] % (Auto) 7.9, Eos % (Auto) 0.8, Baso % (Auto) 0.3, Absolute Neuts (auto) 6.9, Absolute Lymphs (auto) 0.91, Nucleated RBC % 0 12/21/21 14:37: Sodium 132 L, Potassium 3.6, Chloride 95 L, Carbon Dioxide 30.0, Anion Gap 7, BUN 11, Creatinine 1.40 H, Estim Creat Clear Calc 39.11, Est GFR (MDRD) Af Amer 62, Est GFR (MDRD) Non-Af 51 L, BUN/Creatinine Ratio 7.9 L, Glucose 213 H, Calcium 8.4 L, Troponin I High Sens 20 12/21/21 14:37: PT 16.9 H, INR 1.4, D-Dimer Quant (PE/DVT) 1.02 H* 12/21/21 14:37: B-Natriuretic Peptide 334.0 H 12/21/21 16:56: Phosphorus 3.4, Magnesium 1.4 L 12/21/21 16:56: Troponin I High Sens 21 12/21/21 18:19: Urine Osmolality 261, Ur Random Sodium 47, Urine Creatinine 31.30 12/21/21 20:19: Serum Osmolality 285 12/21/21 20:19: Troponin I High Sens 23 12/22/21 05:27: WBC 7.9, RBC 3.60 L, Hgb 10.9 L, Hct 31.2 L, MCV 86.7, MCH 30.3, MCHC 34.9, RDW Std Deviation 41.1, RDW Coeff of Lisa 13.0, Plt Count 190, MPV 11.8, Immature Gran % (Auto) 0.400, Neut % (Auto) 74.4 H, Lymph % (Auto) 13.0 L, [place] % (Auto) 9.8, Eos % (Auto) 2.0, Baso % (Auto) 0.4, Absolute Neuts (auto) 5.9, Absolute Lymphs (auto) 1.02, Nucleated RBC % 0 12/22/21 05:27: Sodium 134 L, Potassium 3.1 L, Chloride 98, Carbon Dioxide 28.0, Anion Gap 8, BUN 11, Creatinine 1.42 H, Estim Creat Clear Calc 38.56, Est GFR (MDRD) Af Amer 61, Est GFR (MDRD) Non-Af 50 L, BUN/Creatinine Ratio 7.7 L, Glucose 130 H, Calcium 8.3 L, Triglycerides 73, Cholesterol 85, LDL Cholesterol 31, VLDL Cholesterol 15, HDL Cholesterol 39 L, TSH 3.25 12/22/21 05:27: Cortisol 11.00 Cardiology Labs/Tests 12/21/21 14:37: WBC 8.6, RBC 4.17 L, Hgb 12.5 L, Hct 37.0 L, MCV 88.7, MCH 30.0, MCHC 33.8, Plt Count 199, MPV 11.5, Immature Gran % (Auto) 0.500, Neut % (Auto) 79.9 H, Lymph % (Auto) 10.6 L, [place] % (Auto) 7.9, Eos % (Auto) 0.8, Baso % (Auto) 0.3, Absolute Neuts (auto) 6.9, Nucleated RBC % 0 12/21/21 14:37: Sodium 132 L, Potassium 3.6, Chloride 95 L, Carbon Dioxide 30.0, Anion Gap 7, BUN 11, Creatinine 1.40 H, Est GFR (MDRD) Af Amer 62, Est GFR (MDRD) Non-Af 51 L, BUN/Creatinine Ratio 7.9 L, Glucose 213 H, Calcium 8.4 L 12/21/21 14:37: PT 16.9 H, INR 1.4, D-Dimer Quant (PE/DVT) 1.02 H* 12/21/21 14:37: B-Natriuretic Peptide 334.0 H 12/21/21 16:56: Phosphorus 3.4, Magnesium 1.4 L 12/21/21 20:19: Serum Osmolality 285 12/22/21 05:27: WBC 7.9, RBC 3.60 L, Hgb 10.9 L, Hct 31.2 L, MCV 86.7, MCH 30.3, MCHC 34.9, Plt Count 190, MPV 11.8, Immature Gran % (Auto) 0.400, Neut % (Auto) 74.4 H, Lymph % (Auto) 13.0 L, [place] % (Auto) 9.8, Eos % (Auto) 2.0, Baso % (Auto) 0.4, Absolute Neuts (auto) 5.9, Nucleated RBC % 0 12/22/21 05:27: Sodium 134 L, Potassium 3.1 L, Chloride 98, Carbon Dioxide 28.0, Anion Gap 8, BUN 11, Creatinine 1.42 H, Est GFR (MDRD) Af Amer 61, Est GFR (MDRD) Non-Af 50 L, BUN/Creatinine Ratio 7.7 L, Glucose 130 H, Calcium 8.3 L, Triglycerides 73, Cholesterol 85, LDL Cholesterol 31, VLDL Cholesterol 15, HDL Cholesterol 39 L Rhythm: EKG: ECHO: 10/2021: The estimated ejection fraction is 55-60 %. Normal LV systolic function Mild LHC/concenteric Mild TR Mild Pulmonary Hypertension'RVSP 39.1 mmhg Radiography Diagnostic Testing: Radiology Impression Chest X-Ray 12/21/21 14:20 IMPRESSION: No radiographic evidence of acute cardiopulmonary disease. Electronically Signed: Alex العراقي MD at 14:53 EDT , Chest CTA 12/21/21 15:34 IMPRESSION: No demonstrated pulmonary embolism or arterial dissection. Cardiomegaly. Atherosclerosis. Scattered osseous radiolucencies, may be secondary to demineralization however cannot exclude a neoplastic process. Electronically Signed: Savana Dubois MD at 16:06 EDT ,
--- NOTE | 2021-12-22 14:20 | PCM.DC.SUM ---
Providers Date of Admission: 12/21/21 Date of Discharge: 12/22/21 Primary Care Physician: Dr. Bernard Nugent MD Consultations 12/21/21 17:35 Consult: Cardiology Routine Consulting Provider: Alana Conklin Reason for Consult: SYMTOMATIC Junctional bradycardia EMERGENT Consult: No MD Notified: Yes Date Notified: 12/21/21 Time Notified: 16:45 Method of Notification: ED Physician Initiated Reason For Visit: JUNCTIONAL BRADYCARDIA WITH SOB Diagnosis Discharge Diagnosis (1) Symptomatic bradycardia: Status: Acute Code(s): R00.1 - Bradycardia, unspecified Medications at Discharge Home Medications omeprazole 20 mg capsule,delayed release 20 mg PO DAILY reflux 09/19/14 pravastatin 40 mg tablet 40 mg PO QHS cholesterol 09/19/14 tamsulosin 0.4 mg capsule 0.4 mg PO QHS 12/07/21 apixaban 5 mg tablet (Eliquis) 5 mg PO BID 12/21/21 furosemide 40 mg tablet 40 mg PO DAILY #30 tabs 12/22/21 losartan 100 mg tablet 100 mg PO DAILY #30 tabs 12/22/21 magnesium oxide 400 mg PO BID #10 tabs 12/22/21 metoprolol tartrate 25 mg tablet 25 mg PO DAILY #30 tabs 12/22/21 sennosides 8.6 mg-docusate sodium 50 mg tablet (Stool Softener-Stimulant Laxative) 2 tab PO BID PRN PRN Constipation #0 tabs 12/22/21 Hospital Course Summary of Care Provided Hospital Course: This is a 86-year-old question gentleman admitted with shortness of breath on mild exertion probably due to junctional bradycardia. 1. Acute dyspnea on mild exertion possible due to junctional bradycardia, rule out ACS: Patient does not have chest pain/tightness. Admitted in PCU on monitoring analyst. Serial troponin. Discussed with oim consultant and consult requested. Metoprolol succinate held. Diltiazem LA discontinued 2 days ago. Patient on Eliquis took morning dose today. Continue pravastatin. 12/22: Metoprolol succinate resumed at lower dose 25 mg daily to prevent patient going into A. fib with RVR. Lead Software Architect consult appreciated. 48 hours outpatient Holter monitor. 2. Chronic HFpEF, paroxysmal A. fib: Patient last 2D echo in October 2021 reviewed EF 55 to 60%, mild LVH, normal LV systolic function, mild TR, RVSP 39 mmHg. No need to repeat echo. Patient is still has leg swelling but BNP is similar since October 2021. Lung auscultatory finding and CT chest reported no acute cardiopulmonary abnormality. Lasix 40 mill IV 1 dose given for leg swelling was given and patient leg edema got much better. 12/22: As patient has chronic hyponatremia, HCTZ discontinued. Prescription for furosemide 40 mg daily and losartan 100 mg daily given separately. 3. Chronic hyponatremia probably due to diuretic, HCTZ: Patient sodium 132, potassium 3.6 chloride 95, anion gap 7, bicarb 30. Sodium is similar around 130 since October 2021. Patient was last admitted in October 2019 for fall and hyponatremia. HCTZ discontinued. 12/22: Sodium improved from 1 30-1 34. Serum osmolality 285, urine osmolarity 261, urine sodium 47, creatinine 31. Urine sodium and respiratory might be altered because of patient being on diuretic. Follow-up with farm instructor Dr. Haq to monitor kidney function, adjustment of diuretic. Recommended urine electrolytes and osmolarity after off diuretic for 1 week. Hypomagnesemia, magnesium replaced. Prescription for magnesium sent to patient's pharmacy. 4. CKD stage IIIb possible due to diuretic: Patient creatinine is near constant 1.40 since October 2021. 12/22: Kidney function remains on baseline. 5. Other comorbidities include hypertension and diabetes mellitus type 2: Glucose in BMP 213. Glucose is 130 controlled. Accu-Chek insulin is covered with Humalog sliding scale. Blood pressure is elevated in systolic 156. Continue lisinopril Discharge medication reconciliation done. Discharge follow-up instructions completed. Discharge process discussed with the patient and all questions were answered to patient's satisfaction. Total time spent, exact 35 minutes on discharge meds reconciliation, examination, coordination of care with nurses and ancillary staff, review of imaging and blood test and discussion with the patient on follow-up instructions. Living will/advanced directive/end of life care: Patient does have living will or advanced directive. His daughter is power of deputy attorney general for health after discussion of benefits/risks procedures involved with full code, DNR CC arrest and DNR CC, the patient opted for DNRCC arrest with no intubation. Patient was educated about DNRCC arrest that usual treatment and management will not be withdrawn. Patient does want artificial life support including intubation, tube feed, ventilator and/chest compression, central venous catheter, vasopressor and DC shock if needed Total time spent in [id number] encounter in discussion of advanced directive 16 minutes. Physical Exam Narrative Seen and examined. Patient heart rate improved of metoprolol succinate, gradually went up from 60s to 71 to 83/min. Junctional rhythm changed to A. fib. Discussed with the oim consultant Dr. Eaton. 48 hours Holter monitor as an outpatient recommended General: Alert, Oriented x3, Cooperative HEENT: Atraumatic, PERRLA, EOMI, Normocephalic Oral: No Gingival or Mucosal Lesions/ Ulcerations Neck: Supple, No JVD, Negative Carotid Bruits Lungs: Air entry equal in both legs. No crepitation/rhonchi. Dyspnea resolved. Cardiovascular: A. fib, Normal S1, Normal S2, subtle grade 3/6 systolic murmur over LLSB Abdomen: Bowel Sounds Present, Soft, Non Tender, Non-Distended : No renal angle tenderness. No suprapubic tenderness. Extremities: Bilateral lower leg edema improved after Lasix, Capillary Refill Less than 3 Seconds Skin: No rashes, No breakdown Musculoskeletal: No Tenderness to Palpation of Joints or Extremities. Range of motion full Neurological: Cranial nerves II-XII grossly intact, DTR 2+/4 and Symmetrical, Neuro grossly intact Psych/Mental Status: Normal Affect, Appropriate. Weight / BMI Weight Weight: 203 lb 11.314 oz Body Mass Index (BMI) 29.7 ABG / Lab / Microbiology Data Result Diagrams: 12/22/21 05:27 12/22/21 05:27 Laboratory: Laboratory Results - last 24 hr 12/21/21 14:37: WBC 8.6, RBC 4.17 L, Hgb 12.5 L, Hct 37.0 L, MCV 88.7, MCH 30.0, MCHC 33.8, RDW Std Deviation 42.4, RDW Coeff of Lisa 13.0, Plt Count 199, MPV 11.5, Immature Gran % (Auto) 0.500, Neut % (Auto) 79.9 H, Lymph % (Auto) 10.6 L, [place] % (Auto) 7.9, Eos % (Auto) 0.8, Baso % (Auto) 0.3, Absolute Neuts (auto) 6.9, Absolute Lymphs (auto) 0.91, Nucleated RBC % 0 12/21/21 14:37: Sodium 132 L, Potassium 3.6, Chloride 95 L, Carbon Dioxide 30.0, Anion Gap 7, BUN 11, Creatinine 1.40 H, Estim Creat Clear Calc 39.11, Est GFR (MDRD) Af Amer 62, Est GFR (MDRD) Non-Af 51 L, BUN/Creatinine Ratio 7.9 L, Glucose 213 H, Calcium 8.4 L, Troponin I High Sens 20 12/21/21 14:37: PT 16.9 H, INR 1.4, D-Dimer Quant (PE/DVT) 1.02 H* 12/21/21 14:37: B-Natriuretic Peptide 334.0 H 12/21/21 16:56: Phosphorus 3.4, Magnesium 1.4 L 12/21/21 16:56: Troponin I High Sens 21 12/21/21 18:19: Urine Osmolality 261, Ur Random Sodium 47, Urine Creatinine 31.30 12/21/21 20:19: Serum Osmolality 285 12/21/21 20:19: Troponin I High Sens 23 12/22/21 05:27: WBC 7.9, RBC 3.60 L, Hgb 10.9 L, Hct 31.2 L, MCV 86.7, MCH 30.3, MCHC 34.9, RDW Std Deviation 41.1, RDW Coeff of Lisa 13.0, Plt Count 190, MPV 11.8, Immature Gran % (Auto) 0.400, Neut % (Auto) 74.4 H, Lymph % (Auto) 13.0 L, Roosevelt % (Auto) 9.8, Eos % (Auto) 2.0, Baso % (Auto) 0.4, Absolute Neuts (auto) 5.9, Absolute Lymphs (auto) 1.02, Nucleated RBC % 0 12/22/21 05:27: Sodium 134 L, Potassium 3.1 L, Chloride 98, Carbon Dioxide 28.0, Anion Gap 8, BUN 11, Creatinine 1.42 H, Estim Creat Clear Calc 38.56, Est GFR (MDRD) Af Amer 61, Est GFR (MDRD) Non-Af 50 L, BUN/Creatinine Ratio 7.7 L, Glucose 130 H, Calcium 8.3 L, Triglycerides 73, Cholesterol 85, LDL Cholesterol 31, VLDL Cholesterol 15, HDL Cholesterol 39 L, TSH 3.25 08/05/22 05:27: Cortisol 11.00 Radiography Diagnostic Testing: Radiology Impression Chest X-Ray 12/21/21 14:20 IMPRESSION: No radiographic evidence of acute cardiopulmonary disease. Electronically Signed: Alex العراقي MD at 14:53 EDT , Chest CTA 12/21/21 15:34 IMPRESSION: No demonstrated pulmonary embolism or arterial dissection. Cardiomegaly. Atherosclerosis. Scattered osseous radiolucencies, may be secondary to demineralization however cannot exclude a neoplastic process. Electronically Signed: Savana Dubois MD at 16:06 EDT , Meaningful Use Info Meaningful Use Diagnoses (Choose all that apply): None applicable Discharge Plan Admission Admit Date/Time: 12/21/21 16:39 Primary Reason for Your Visit: Junctional bradycardia, hypomagnesemia, A. fib. Attending Provider: Maynor Duran Primary Care Provider: Bernard Nugent Chi Consulting Providers: Alana Conklin Instructions Additional Instructions / Restrictions: 48 hours Holter monitor to be taken care of by oim consultant. Discussed with Muriel Bonilla Recommended BMP and magnesium after 4 days and follow with PCP Discharge Orders/Prescriptions Prescriptions: New sennosides-docusate sodium [Stool Softener-Stimulant Laxat] 8.6-50 mg Tablet 2 tab PO BID PRN PRN (Reason: Constipation) Qty: 0 0RF Rx Instructions: Brtb-qbc-[id number] losartan 100 mg Tablet 100 mg PO DAILY Qty: 30 2RF metoprolol tartrate 25 mg Tablet 25 mg PO DAILY Qty: 30 2RF furosemide 40 mg tablet 40 mg PO DAILY Qty: 30 0RF Rx Instructions: Hold if creatinine is more than 0.5 mg/dL above the baseline magnesium oxide 400 mg magnesium tablet 400 mg PO BID Qty: 10 0RF Rx Instructions: Follow-up set of magnesium after 4 days Continued tamsulosin 0.4 mg capsule 0.4 mg PO QHS pravastatin 40 MG tablet 40 mg PO QHS Label Comments: CHOLESTEROL omeprazole 20 MG capsule 20 mg PO DAILY Label Comments: ACID RELUX Eliquis 5 mg tablet 5 mg PO BID Rx Instructions: take 1 tablet by mouth twice a day Discontinued losartan-hydrochlorothiazide 100-25 mg tablet 1 tab PO DAILY metoprolol succinate 50 mg tablet extended release 24 hr 50 mg PO DAILY Qty: 30 0RF Referrals / Follow Up: Shaila Haq DO [Med Staff - Consulting] - Within 1 Month (FOR CKD. Follow-up for diuretic adjustment.) Rodolfo Tobias MD [Med Staff - Active Staff] - Within 1 Month (FOR A. fib with tachybradycardia syndrome.) Bernard Nugent Chi, MD [Primary Care Provider] - Within 1 Week Disposition Disposition (needs filled in before D/C Order can be placed): Home, Self Care Charges/Coding Visit Charges OBSV E&M: 14969 Observation care discharge
--- NOTE | 2021-12-22 14:39 | CASEMGMT ---
This RN CM to room to discuss d/c plan and pt states no concerns with going home at time of discharge. Pt voices no further questions/concerns/needs. SStaten RN CM
== END 2021-12-22 11:09 | disposition home or self-care (01) ==
LOC: ED 16:41 → PCU 16:51
PROVIDERS: Nurse Practitioner; Admitting Provider Internal Medicine; Emergency Provider Emergency Medicine; PCP Family Medicine Geriatric Medicine; Visit Provider Internal Medicine
DX: R00.1 Bradycardia, unspecified (principal); I50.32 Chronic diastolic (congestive) heart failure; I13.0 Hypertensive heart and chronic kidney disease with heart failure and stage 1 through stage 4 chronic kidney disease, or unspecified chronic kidney disease; E11.22 Type 2 diabetes mellitus with diabetic chronic kidney disease; I48.11 Longstanding persistent atrial fibrillation; I44.2 Atrioventricular block, complete; N18.32 Chronic kidney disease, stage 3b; E87.1 Hypo-osmolality and hyponatremia; E78.5 Hyperlipidemia, unspecified; Z79.01 Long term (current) use of anticoagulants; E83.42 Hypomagnesemia; Z79.899 Other long term (current) drug therapy; G47.33 Obstructive sleep apnea (adult) (pediatric); R06.09 Other forms of dyspnea
CPT/HCPCS: 36415; 71045; 71275; 80048; 80061; 82533; 82570; 83735; 83880; 83930; 83935; 84100; 84300; 84443; 84484; 85025; 85379; 85610; 93005; 96365; 96366; 96375; 99218; 99251; 99285; Q9967; A4216; G0378; G0463; J1940

== ENCOUNTER → 2021-12-27 | Outpatient (CLI) | payer MEDICARE, SELFPAY ==
[2021-12-27 16:40] LABS: Anion Gap 7 (5-15); BUN 14 mg/dL (7-18); BUN/Creat Ratio 8.9 RATIO (10-20); Calcium,Total 9.1 mg/dL (8.5-10.1); Chloride 101 mmol/L (98-107); Creatinine, Serum 1.58 mg/dL (0.70-1.30); EST Glomerular Filtration Rate 44 mL/min (>60); Est Glom Filt Rate - Afr Amer 54 mL/min (>60); Glucose 137 mg/dL (74-106); Magnesium 1.8 mg/dL (1.6-2.6); Potassium 3.7 mmol/L (3.5-5.1); Sodium Level 137 mmol/L (136-145)
== END | disposition home or self-care (01) ==
LOC: LAB 16:03
PROVIDERS: PCP Family Medicine Geriatric Medicine; Visit Provider Family Medicine Geriatric Medicine
DX: E87.1 Hypo-osmolality and hyponatremia (principal); E83.49 Other disorders of magnesium metabolism
CPT/HCPCS: 36415; 80048; 83735

== ENCOUNTER → 2022-01-18 | Outpatient (CLI) | payer MEDICARE, SELFPAY ==
[2022-01-18 12:33] LABS: Absolute Lymphocyte Count 1.28 X10^3/uL (0.83-4.51); Absolute Neutrophil Count 6.6 X10^3/uL (2.0-7.7); Basophil# 0.05 X10^3/uL; Basophil% 0.6 % (0-1); Eosinophil# 0.24 X10^3/uL; Eosinophils% 2.7 % (0-5); Hemoglobin 12.9 g/dL (13.0-16.5); Lymphocyte # 1.28 X10^3/ul (0.83-4.51); Lymphocyte % 14.2 % (19-41); Mean Corp Hgb Conc 33.9 g/dL (32-36); Mean Corpuscular Hgb 29.8 pg (27.0-32.0); Mean Corpuscular Volume 87.8 fL (80-94); Mean Platelet Vol. 11.6 fl (6.2-12.0); Monocyte# 0.86 X10^3/uL; Monocyte% 9.5 % (0-10); NRBC Flagged by Analyzer 0 % (0-5); Neutrophil # 6.56 X10^3/uL (2.7-7.7); Neutrophil % 72.6 % (47-70); Platelet Count 190 K/mm3 (150-450); RBC Distribution Width CV 13.2 % (11.6-14.6); RBC Distribution Width SD 42.8 fl (35.1-43.9); Red Blood Count 4.33 M/mm3 (4.6-6.2)
[2022-01-18 12:43] LABS: Vitamin D,25 Hydroxy 43.2 ng/mL
[2022-01-18 12:52] LABS: ALB/GLOB Ratio 0.9 RATIO (0.9-2.4); AST(SGOT) 15 U/L (15-37); Alanine Aminotransfer ALT/SGPT 22 U/L (16-61); Albumin, Serum 3.2 g/dL (3.2-5.0); Alkaline Phosphatase 143 U/L (45-117); Anion Gap 7 (5-15); BUN 12 mg/dL (7-18); BUN/Creat Ratio 8.6 RATIO (10-20); Calcium,Total 8.3 mg/dL (8.5-10.1); Chloride 98 mmol/L (98-107); Creatinine, Serum 1.39 mg/dL (0.70-1.30); EST Glomerular Filtration Rate 52 mL/min (>60); Est Glom Filt Rate - Afr Amer 62 mL/min (>60); Globulin 3.6 g/dL (2.2-4.2); Glucose 193 mg/dL (74-106); Potassium 3.4 mmol/L (3.5-5.1); Protein, Total 6.8 g/dL (6.4-8.2); Sodium Level 136 mmol/L (136-145); Thyroid Stim Hormone (TSH) 2.83 uIU/mL (0.358-3.74)
== END | disposition home or self-care (01) ==
LOC: POLAB3 09:01
PROVIDERS: PCP Family Medicine Geriatric Medicine; Visit Provider Family Medicine Geriatric Medicine
DX: E11.9 Type 2 diabetes mellitus without complications (principal); I10 Essential (primary) hypertension; E55.9 Vitamin D deficiency, unspecified
CPT/HCPCS: 36415; 80053; 82306; 84443; 85025

== ENCOUNTER → 2022-01-31 | Outpatient (CLI) | payer MEDICARE, SELFPAY ==
--- NOTE | 2022-01-31 14:26 | BI_ITS ---
MAMMOGRAPHY - BILATERAL DIAGNOSTIC REASON FOR EXAM: Male, 86 years old. Left breast pain. PERTINENT HISTORY: Daughter with breast cancer. TECHNIQUE: Digital bilateral breast maribel (3D mammographic acquisition) in the CC and MLO projections. 2-D mediolateral oblique (MLO) and craniocaudad (CC) views of both breasts were obtained. CAD: Full Field Digital Mammography with Computer Added Detection was performed. COMPARISON: None. Baseline examination. FINDINGS: Breast Composition: The breasts are almost entirely fatty. Asymmetrical soft tissue prominence in the retroareolar region of the left breast corresponding to the palpable abnormality. Correlation with ultrasound is recommended. No other significant abnormalities are identified. BI/DIAG MAMM W/CAD, BILAT IMPRESSION: Soft tissue density in the retroareolar region of the left breast. Correlation with ultrasound is recommended. ASSESSMENT CATEGORY: BIRADS Category 0: Incomplete. Need additional imaging evaluation. A letter regarding these results will be sent to the patient by the facility within 30 days. Approximately 10% of breast cancers are not detected by mammography. A normal mammogram should not delay biopsy of a clinically suspicious abnormality. Electronically Signed: Davis Russell MD at 12:39 EDT ,
--- NOTE | 2022-01-31 14:26 | US_ITS ---
STUDY: ULTRASOUND BREAST - LEFT REASON FOR EXAM: Male, 86 years old. Palpable lump left breast. TECHNIQUE: Axial and longitudinal images of the LEFT breast were performed with a high resolution ultrasound transducer. # OF IMAGES: 26 COMPARISON: Comparison is made with prior mammogram done earlier today. FINDINGS: LEFT Breast: The palpable abnormality corresponds to a 2.1 cm x 0.9 cm irregular hypoechoic solid nodule. Biopsy recommended. US/Breast Limited Unilateral IMPRESSION: 2.1 cm x 0.9 cm irregular hypoechoic solid nodule in the retroareolar region of the left breast. Biopsy recommended. ASSESSMENT CATEGORY: BIRADS Category 4: Suspicious - Biopsy Should Be Considered. A letter regarding these results will be sent to the patient by the facility within 30 days. Electronically Signed: Davis Russell MD at 15:30 EDT ,
== END | disposition home or self-care (01) ==
LOC: OPBI 14:23
PROVIDERS: PCP Family Medicine Geriatric Medicine; Referring Provider Family Medicine Geriatric Medicine; Visit Provider Family Medicine Geriatric Medicine
DX: N64.4 Mastodynia (principal); Z80.3 Family history of malignant neoplasm of breast
CPT/HCPCS: 76642; 77062; 77066; G0279

== ENCOUNTER → 2022-02-01 | Outpatient (CLI) | payer MEDICARE, SELFPAY | END | disposition home or self-care (01) | LOC: PSN 09:22 | PROVIDERS: PCP Family Medicine Geriatric Medicine; Referring Provider Physician Assistant Medical; Visit Provider Physician Assistant Medical | DX: R00.1 Bradycardia, unspecified (principal) | CPT/HCPCS: 93225; 93226 ==

== ENCOUNTER 2022-02-04 21:37 | Emergency (ER) | payer MEDICARE, SELFPAY ==
[2022-02-04 21:39] VITALS: BP 163/69; PULSE 73; RESP 15; TEMP 36.3; O2SAT 100; BMI 29.5
[2022-02-04 22:15] VITALS: O2SAT 98
--- NOTE | 2022-02-04 22:21 | EKG12_ITS ---
Test Reason : SOB Blood Pressure : / mmHG Vent. Rate : 048 BPM Atrial Rate : 375 BPM P-R Int : 000 ms QRS Dur : 140 ms QT Int : 476 ms P-R-T Axes : 000 -61 -25 degrees QTc Int : 425 ms Atrial flutter with variable A-V block with premature ventricular or aberrantly conducted complexes Left axis deviation Right bundle branch block Abnormal ECG Confirmed by JUNAID AZEVEDO, KEL ([id number]), sports editor KEVIN WANG ([id number]) on 02/05/2022 10:55:06 AM Referred By: Confirmed By:KEL QUIROGA MD
--- NOTE | 2022-02-04 22:22 | EDS_ITS ---
HPI History of Present Illness Chief Complaint: Shortness of Breath Informant: patient Narrative Narrative: Patient presents with dyspnea. Its been going on for about a day and a half. It actually gets better if he gets up and walks around. It mostly bothers him when he lays down to go to bed at night. He is able to lay down a bit during the day. It does not seem as much as though this is due to the recumbency as much is nighttime. He states he gets very nervous and anxious at night. He worries about his breathing at night. He is not sure if it is anxiety causing his breathing or vice versa. He denies cough fever sputum production. No chest pain tightness discomfort in any way. He does have a history of atrial fibrillation that is longstanding. He is on Eliquis and is taking it. He has had some bradycardia over the last few months. His rates were down in the 30s. His metoprolol was cut from 100 a day to 50 and is now 25. He states now his heart rates running generally in the 50s. His heart rate today is the same as normal. He has no new leg swelling. He has not run out of any medicines. Patient did have a echocardiogram done about 3 months ago. This showed an ejection fraction of 55 to 60%. There was a component of pulmonary hypertension. No pericardial effusion. [facility] Medical History Atrial fibrillation Chronic renal insufficiency, stage III (moderate) Closed head injury Diverticula of colon Diverticulitis large intestine Diverticulosis Essential (primary) hypertension Fall Hyperlipidemia Hypertension Left ventricular diastolic dysfunction Longstanding persistent atrial fibrillation Non-rheumatic tricuspid valve insufficiency Non-smoker Nonrheumatic mitral (valve) insufficiency Obesity Obstructive sleep apnea Paroxysmal atrial fibrillation Right bundle branch block (RBBB) with left anterior fascicular block Sleep apnea Type 2 diabetes mellitus Home Medications omeprazole 20 mg capsule,delayed release 20 mg PO DAILY reflux 09/19/14 [History Last Taken 12/21/21] pravastatin 40 mg tablet 40 mg PO QHS cholesterol 09/19/14 [History Last Taken 12/21/21] apixaban 5 mg tablet (Eliquis) 5 mg PO BID 12/21/21 [History Last Taken 12/21/21] sennosides 8.6 mg-docusate sodium 50 mg tablet (Stool Softener-Stimulant Laxative) 2 tab PO BID PRN PRN Constipation #0 tabs 12/22/21 [Rx Last Taken Unknown] cholecalciferol (vitamin D3) 25 mcg (1,000 unit) capsule 25 mcg PO DAILY 01/24/22 [History Last Taken Unknown] furosemide 40 mg tablet 40 mg PO DAILY PRN edema #30 tabs 01/24/22 [Rx Last Taken Unknown] losartan 100 mg tablet 100 mg PO DAILY #90 tabs 01/24/22 [Rx Last Taken Unknown] metoprolol succinate 25 mg tablet,extended release 24 hr 25 mg PO DAILY #90 tabs 01/24/22 [Rx Last Taken Unknown] tamsulosin 0.4 mg capsule (Flomax) 0.4 mg PO QHS 02/04/22 [History Last Taken Unknown] Allergy/AdvReac Type Severity Reaction Status Date / Time codeine AdvReac Other Verified 02/04/22 21:41 lisinopril AdvReac Other Verified 02/04/22 21:41 Family History Father CVA (cerebral vascular accident) Mother Diabetes Sister Heart disease PPM Surgical History H/O hemicolectomy History of appendectomy History of cataract surgery History of tonsillectomy Hx of cholecystectomy Social History Smoking Status: Never smoker alcohol intake: current ROS ROS ED Constitutional Constitutional ED: Denies chills, fever(s), sweats or weight loss ENT ENT ED: Denies rhinorrhea or sore throat Cardiovascular Cardiovascular: Denies chest pain, palpitations or racing heartbeat Respiratory/Chest Respiratory/Chest: Reports dyspnea; Denies cough, dyspnea on exertion or sputum Gastrointestinal Gastrointestinal: Denies abdominal pain, nausea or vomiting Genitourinary Genitourinary ED: Denies urinary frequency Musculoskeletal Musculoskeletal: Denies back pain, myalgias or neck pain Integumentary Denies rash Neurologic Neurologic: Denies headache(s) Psychiatric Psychiatric: Reports anxiety; Denies depression Endocrine Endocrinology: Denies polydipsia or polyuria Hematologic/Lymphatic Hematologic/Lymphatic: Reports easy bleeding and easy bruising Allergic/Immunologic Allergic/Immunologic ED: Denies urticaria EXAM Physical Exam Const Vital Signs: 02/04/22 21:39 02/04/22 22:15 02/04/22 22:15 Temperature 97.3 F L Temperature Source Temporal Pulse Rate 73 Respiratory Rate 15 Blood Pressure 163/69 H Blood Pressure Mean 100 Pulse Ox 100 98 98 Oxygen Delivery Method Room Air Room Air Room Air 02/04/22 22:31 02/04/22 23:26 Temperature Temperature Source Pulse Rate 41 L 44 L Respiratory Rate 12 18 Blood Pressure 185/74 H Blood Pressure Mean 111 Pulse Ox 98 Oxygen Delivery Method Room Air Positive well nourished and well developed General Appearance ED: well developed and NAD HEENT Reports moist mucous membranes Eyes General Eye ED: Negative for scleral icterus Neck no JVD Resp normal respiratory effort Resp Narrative: No pain with deep breath Auscultation: Negative for rales, rhonchi or wheezes Cardio Cardio Narrative: He does appear to be in atrial fibrillation on the monitor. His rate will vary anywhere from about 40 up to 60. Rate: bradycardia GI non-tender and non-distended Palpation: soft Back/Spine no CVA tenderness Extremity Extremity Narrative: Bilateral mild +1 edema but he states his legs look normal and feel normal to him. No asymmetry. No cords. Neuro oriented x3 Sensorium / Orientation: alert Psych mental status grossly normal Attitude: No agitated Mood & Affect: Negative for depressed Skin no wounds MDM MDM MDM Narrative Medical decision making narrative: CBC shows white count 11.2 nonspecific elevation. Hemoglobin is normal denise telets are normal. Electrolytes show no marked abnormalities. Creatinine is up just a hand from his baseline. Glucose is 204. Troponin is 22 which is really about his baseline. BNP is also 256 which is at or just little below his baseline. Chest x-ray shows no acute process and no significant interval change. We walked the patient and he did well and his lowest saturation was 95%. This patient has intermittent dyspnea. Although his rate is slow here, he has a history of bradycardia. He started with rates in the 30s 2 or 3 months ago. His metoprolol has been cut down from 100 to 50-25. Were going to come to 12- 1/2 a day. These tablets are white scored tablets that he can break in half. He just had a Holter monitor on for a period of time and was turned in on Saturday. He has follow-up appointment with Dr. Tobias. I recommend he give them a call in the morning for recheck. I explained that at some point he may end up even getting a pacer if his rate remains low and they think that that is the cause of his symptomatology. But at this point, his rate is at or above his recent baseline, his blood pressure is good, his saturations are good. He is not syncopal or presyncopal and can walk around well. I do not think he needs acute admission at this time. Lab Data Attestation: I reviewed the patient's lab results. Labs: Laboratory Results - last 24 hr 02/04/22 02/04/22 02/04/22 22:20 22:20 22:20 WBC 11.2 H RBC 4.32 L Hgb 13.2 Hct 38.0 L MCV 88.0 MCH 30.6 MCHC 34.7 RDW Std Deviation 43.9 RDW Coeff of Lisa 13.6 Plt Count 203 MPV 11.3 Immature Gran % (Auto) 0.400 Neut % (Auto) 78.6 H Lymph % (Auto) 11.4 L [place] % (Auto) 8.0 Eos % (Auto) 1.2 Baso % (Auto) 0.4 Absolute Neuts (auto) 8.8 H Absolute Lymphs (auto) 1.28 Nucleated RBC % 0 Sodium 138 Potassium 3.9 Chloride 103 Carbon Dioxide 28.0 Anion Gap 7 BUN 13 Creatinine 1.62 H Estim Creat Clear Calc 33.80 Est GFR (MDRD) Af Amer 52 L Est GFR (MDRD) Non-Af 43 L BUN/Creatinine Ratio 8.0 L Glucose 204 H Calcium 8.7 Troponin I High Sens 22 B-Natriuretic Peptide 256.6 H Radiography Diagnostic Testing: Clinical Impression(s) from Imaging Studies Chest X-Ray 02/04/22 22:24 IMPRESSION: No active disease. Electronically Signed: Chirag Mckeon MD at 23:01 EDT , EKG Initial EKG: Comments: EKG done for dyspnea and history of atrial fibrillation read by me. EKG shows atrial flutter with variable block and overall ventricular rate of 48. No acute ST elevation or depression. There are occasional PVCs. QRS duration is long. QTc is normal. This is similar to 1 done early December of this year Discharge Plan Triage Chief Complaint: Shortness of Breath ED Provider: Bridger Morgan Dx/Rx/DC Orders Clinical Impression: Dyspnea, Bradycardia Instructions: ED Bradycardia Prescriptions: No Action cholecalciferol (vitamin D3) 25 mcg (1,000 unit) capsule 25 mcg PO DAILY metoprolol succinate 25 mg tablet extended release 24 hr 25 mg PO DAILY Qty: 90 3RF losartan 100 mg tablet 100 mg PO DAILY Qty: 90 3RF furosemide 40 mg tablet 40 mg PO DAILY PRN (Reason: edema) Qty: 30 1RF Rx Instructions: Hold if creatinine is more than 0.5 mg/dL above the baseline pravastatin 40 MG tablet 40 mg PO QHS Label Comments: CHOLESTEROL omeprazole 20 MG capsule 20 mg PO DAILY Label Comments: ACID RELUX Eliquis 5 mg tablet 5 mg PO BID Rx Instructions: take 1 tablet by mouth twice a day sennosides-docusate sodium [Stool Softener-Stimulant Laxat] 8.6-50 mg Tablet 2 tab PO BID PRN PRN (Reason: Constipation) Qty: 0 0RF Rx Instructions: Mwoz-wgj-evpqzky tamsulosin [Flomax] 0.4 mg Capsule 0.4 mg PO QHS Primary Care Provider: Bernard Nugent Chi Referrals: Rodolfo Tobias MD [Med Staff - Active Staff] - As soon as possible Bernard Nugent Chi, MD [Primary Care Provider] - Activity Restrictions/Additional Instructions: Break your metoprolol tablets in half and take 1/2 tablet each day rather than 1 tablet each day. Call Dr. Tobias's office in the morning for recheck and follow- up Disposition Disposition: Home, Self Care
--- NOTE | 2022-02-04 22:24 | RAD_ITS ---
STUDY: X-RAY CHEST REASON FOR EXAM: Male, 86 years old. SOB TECHNIQUE: Single AP portable view of the chest. COMPARISON: None. FINDINGS: The lungs are clear and expanded. There is no demonstrated pleural abnormality. There is moderate cardiac enlargement. Normal mediastinum and tamra. Normal visualized pulmonary arteries. Normal visualized aortic arch and descending thoracic aorta. Normal visualized thoracic spine. Normal visualized ribs, clavicles, and shoulders. There is no demonstrated abnormality of the visualized soft tissue structures of the upper abdomen. RAD/Chest 1 View (Portable) IMPRESSION: No active disease. Electronically Signed: Chirag Mckeon MD at 23:01 EDT ,
[2022-02-04 22:28] LABS: Absolute Lymphocyte Count 1.28 X10^3/uL (0.83-4.51); Absolute Neutrophil Count 8.8 X10^3/uL (2.0-7.7); Basophil# 0.04 X10^3/uL; Basophil% 0.4 % (0-1); Eosinophil# 0.13 X10^3/uL; Eosinophils% 1.2 % (0-5); Hemoglobin 13.2 g/dL (13.0-16.5); Lymphocyte # 1.28 X10^3/ul (0.83-4.51); Lymphocyte % 11.4 % (19-41); Mean Corp Hgb Conc 34.7 g/dL (32-36); Mean Corpuscular Hgb 30.6 pg (27.0-32.0); Mean Platelet Vol. 11.3 fl (6.2-12.0); NRBC Flagged by Analyzer 0 % (0-5); Neutrophil # 8.84 X10^3/uL (2.7-7.7); Neutrophil % 78.6 % (47-70); Platelet Count 203 K/mm3 (150-450); RBC Distribution Width CV 13.6 % (11.6-14.6); RBC Distribution Width SD 43.9 fl (35.1-43.9); Red Blood Count 4.32 M/mm3 (4.6-6.2); White Blood Count 11.2 K/mm3 (4.4-11.0)
[2022-02-04] MEDS: Ipratropium/Albuterol Sulfate 3 ML AMPUL.NEB INHALATION (22:30)
[2022-02-04 22:31] VITALS: PULSE 41; RESP 12
[2022-02-04 22:48] LABS: Anion Gap 7 (5-15); BUN 13 mg/dL (7-18); Calcium,Total 8.7 mg/dL (8.5-10.1); Chloride 103 mmol/L (98-107); Creatinine, Serum 1.62 mg/dL (0.70-1.30); EST Glomerular Filtration Rate 43 mL/min (>60); Est Glom Filt Rate - Afr Amer 52 mL/min (>60); Glucose 204 mg/dL (74-106); Potassium 3.9 mmol/L (3.5-5.1); Sodium Level 138 mmol/L (136-145); Troponin-I HS 22 pg/mL (3.0-78.0)
[2022-02-04 23:16] LABS: BNP,B-Type NATRIURETIC PEPTIDE 256.6 pg/mL (0-100)
[2022-02-04 23:25] VITALS: O2SAT 98
[2022-02-04 23:26] VITALS: BP 185/74; PULSE 44; RESP 18; O2SAT 98
[2022-02-04 23:53] VITALS: BP 183/73; PULSE 48; RESP 19; O2SAT 97
== END 2022-02-05 | disposition home or self-care (01) ==
PROVIDERS: Emergency Provider Emergency Medicine; PCP Family Medicine Geriatric Medicine; Visit Provider Emergency Medicine
DX: R06.00 Dyspnea, unspecified (principal); I27.20 Pulmonary hypertension, unspecified; E11.22 Type 2 diabetes mellitus with diabetic chronic kidney disease; I48.91 Unspecified atrial fibrillation; I48.92 Unspecified atrial flutter; N18.30 Chronic kidney disease, stage 3 unspecified; E78.5 Hyperlipidemia, unspecified; R00.1 Bradycardia, unspecified; I12.9 Hypertensive chronic kidney disease with stage 1 through stage 4 chronic kidney disease, or unspecified chronic kidney disease; R94.31 Abnormal electrocardiogram [ECG] [EKG]; I45.2 Bifascicular block
CPT/HCPCS: 71045; 80048; 83880; 84484; 85025; 93005; 94640; 94760; 99284

== ENCOUNTER → 2022-02-26 | Outpatient (CLI) | payer MEDICARE, SELFPAY ==
[2022-02-26 13:19] LABS: Anion Gap 9 (5-15); BUN 13 mg/dL (7-18); Calcium,Total 8.7 mg/dL (8.5-10.1); Chloride 99 mmol/L (98-107); Creatinine, Serum 1.63 mg/dL (0.70-1.30); EST Glomerular Filtration Rate 43 mL/min (>60); Est Glom Filt Rate - Afr Amer 52 mL/min (>60); Glucose 227 mg/dL (74-106); Potassium 3.5 mmol/L (3.5-5.1); Sodium Level 139 mmol/L (136-145)
== END | disposition home or self-care (01) ==
LOC: POLAB3 12:09
PROVIDERS: PCP Family Medicine Geriatric Medicine; Visit Provider Family Medicine Geriatric Medicine
DX: I50.33 Acute on chronic diastolic (congestive) heart failure (principal)
CPT/HCPCS: 36415; 80048

== ENCOUNTER → 2022-02-28 | Outpatient (CLI) | payer MEDICARE, SELFPAY ==
--- NOTE | 2022-02-28 12:55 | BRBX_PTH ---
PATIENT: ASHIA PEREZ [facility] U#:[id number] AGE/SX: 86/M ROOM: RE02/28/[address]: Dr. Tam Albrecht MD : 1935 BED: DIS: 02/28/2022 SPEC #: [id number] RECD: 02/28/22 16:09 STATUS: VICKI RE #: [id number] FER: 02/28/22 12:[address]: Tam Albrecht DEPT: SURGICAL PATHOLOGY RECD BY: Prashant Wynn ENTERED: 03/01/22 07:47 SP TYPE: BREAST BX OTHR DR: Dr. Bernard Nugent MD Tissues: Left breast, NOS Procedures: Surgery Specimen Level IV HEADER OPERATION: Left breast biopsy PRE-OP DIAGNOSIS: Left breast biopsy TISSUE SUBMITTED: Left breast tissue MICROSCOPIC DIAGNOSIS Left breast tissue, core biopsy: Male breast tissue, consistent with gynecomastia. Negative for atypia or malignancy. See comment. VARUN:lona 03/02/2022 COMMENT Correlation with clinical findings and appropriate follow up are necessary. MICROSCOPIC DESCRIPTION Slides are reviewed. GROSS DESCRIPTION Received in fixative is one container labeled with the patient's name and designated left breast. The specimen consists of multiple elongated fragments of liu-yellow fibroadipose tissue that in aggregate measure 1.5 x 0.2 x 0.1 cm. The entire specimen is submitted in one cassette. / VARUN:lona 03/01/2022 TC:5 CPT: 06342
== END | disposition home or self-care (01) ==
LOC: LABSPEC 16:16
PROVIDERS: PCP Family Medicine Geriatric Medicine; Visit Provider Surgery
DX: N62 Hypertrophy of breast (principal)
CPT/HCPCS: 88305

== ENCOUNTER → 2022-03-13 | Outpatient (CLI) | payer MEDICARE, SELFPAY ==
--- NOTE | 2022-03-13 10:27 | ART_ITS ---
Reason For Study: Claudication Procedure A bilateral lower extremity continuous wave Doppler with analog waveform analysis and ankle brachial indexes. Left Segmental Pressures Left brachial= 155mmHg. Left posterior tibial artery = 121mmHg. Left dorsalis pedis artery = 162mmHg. Left digit = 109 mmHg. The left dorsalis pedis waveforms are triphasic. The left posterior tibial artery waveforms are biphasic. Right Segmental Pressures Right brachial= 159mmHg. Right posterior tibial artery = 103mmHg. Right dorsalis pedis artery = 120mmHg. Right digit = 60 mmHg. The right dorsalis pedis waveforms are monophasic. The right posterior tibial artery waveforms are monophasic. Indices The right ankle brachial index by the dorsalis pedis is 0.75. The right ankle brachial index by the posterior tibial artery is 0.65. The right digital-brachial index is 0.38. The left ankle brachial index by the dorsalis pedis is 1.02. The left ankle brachial index by the posterior tibial artery is 0.76. The left digital-brachial index is 0.69. VL/Ankle Brachial Index Interpretation Summary Right LORENE 0.75, moderate arterial insufficiency. Doppler/PVR waveforms of the r ight ankle moderately diminished at rest. Left LORENE 1.02, normal. Doppler/PVR waveforms of the left ankle normal at rest. TBI diminished, pedal/digit disease vs spasm Ordering Physician: Bernard Nugent Chi Referring Physician: Bernard Nugent Chi Performed By: Daphne Robledo RVT
== END | disposition home or self-care (01) ==
LOC: CVS 10:26
PROVIDERS: PCP Family Medicine Geriatric Medicine; Referring Provider Family Medicine Geriatric Medicine; Visit Provider Family Medicine Geriatric Medicine
DX: I73.9 Peripheral vascular disease, unspecified (principal)
CPT/HCPCS: 93922

== ENCOUNTER → 2022-03-27 | Outpatient (CLI) | payer MEDICARE, SELFPAY | END | disposition home or self-care (01) | LOC: PSN 09:13 | PROVIDERS: PCP Family Medicine Geriatric Medicine; Visit Provider Physician Assistant Medical | DX: R00.1 Bradycardia, unspecified (principal); I49.8 Other specified cardiac arrhythmias | CPT/HCPCS: 93225; 93226 ==

== ENCOUNTER → 2022-07-20 | Outpatient (CLI) | payer MEDICARE, SELFPAY ==
--- NOTE | 2022-07-20 13:12 | RAD_ITS ---
INDICATION: evaluate SOB EXAMINATION/TECHNIQUE: X-RAY - XR Chest 2 Views COMPARISON: None. FINDINGS: LINES/DEVICES: None. LUNGS: No consolidation, edema or effusion. Right upper lobe granuloma. No pneumothorax. MEDIASTINUM AND CARDIOVASCULAR STRUCTURES: Cardiac silhouette not enlarged. Calcified aorta. Central airways and mediastinal contour are unremarkable. BONES AND SOFT TISSUES: Degenerative vertebral changes. RAD/Chest PA and Lateral IMPRESSION: No radiographic evidence of acute cardiopulmonary disease. Electronically Signed: Tam Sabillon DO at 23:45 EST Reading Location ID and State: [facility] / [place] Tel [phone], Service support ,
== END | disposition home or self-care (01) ==
LOC: RAD 13:10
PROVIDERS: PCP Family Medicine Geriatric Medicine; Visit Provider Internal Medicine Cardiovascular Disease
DX: R06.09 Other forms of dyspnea (principal)
CPT/HCPCS: 71046

== ENCOUNTER → 2022-07-20 | Outpatient (CLI) | payer MEDICARE, SELFPAY ==
[2022-07-20 16:29] LABS: Absolute Lymphocyte Count 1.15 X10^3/uL (0.83-4.51); Absolute Neutrophil Count 6.1 X10^3/uL (2.0-7.7); Basophil# 0.03 X10^3/uL; Basophil% 0.4 % (0-1); Eosinophil# 0.15 X10^3/uL; Eosinophils% 1.9 % (0-5); Lymphocyte # 1.15 X10^3/ul (0.83-4.51); Lymphocyte % 14.3 % (19-41); Mean Corp Hgb Conc 34.1 g/dL (32-36); Mean Corpuscular Hgb 29.8 pg (27.0-32.0); Mean Corpuscular Volume 87.5 fL (80-94); Mean Platelet Vol. 12.4 fl (6.2-12.0); Monocyte% 7.5 % (0-10); NRBC Flagged by Analyzer 0 % (0-5); Neutrophil # 6.08 X10^3/uL (2.7-7.7); Neutrophil % 75.5 % (47-70); Platelet Count 206 K/mm3 (150-450); RBC Distribution Width CV 13.8 % (11.6-14.6); RBC Distribution Width SD 43.6 fl (35.1-43.9); Red Blood Count 5.03 M/mm3 (4.6-6.2)
[2022-07-20 17:12] LABS: Albumin, Serum 3.3 g/dL (3.2-5.0); Anion Gap 9 (5-15); BUN 17 mg/dL (7-18); BUN/Creat Ratio 10.9 RATIO (10-20); Calcium,Total 8.9 mg/dL (8.5-10.1); Chloride 97 mmol/L (98-107); Creatinine, Serum 1.56 mg/dL (0.70-1.30); EST Glomerular Filtration Rate 45 mL/min (>60); Est Glom Filt Rate - Afr Amer 54 mL/min (>60); Glucose 197 mg/dL (74-106); Potassium 3.3 mmol/L (3.5-5.1); Sodium Level 137 mmol/L (136-145)
[2022-07-21 09:22] LABS: BNP,B-Type NATRIURETIC PEPTIDE 96.3 pg/mL (0-100)
[2022-07-23 08:28] LABS: PTHIN 110.2 pg/mL (18.4-80.1)
== END | disposition home or self-care (01) ==
LOC: LAB 13:20
PROVIDERS: Nurse Practitioner Family; PCP Family Medicine Geriatric Medicine; Visit Provider Internal Medicine Nephrology
DX: N18.31 Chronic kidney disease, stage 3a (principal); R06.09 Other forms of dyspnea
CPT/HCPCS: 36415; 71046; 80048; 82040; 83880; 83970; 85025

== ENCOUNTER → 2022-08-08 | Outpatient (CLI) | payer MEDICARE, SELFPAY ==
[2022-08-08 13:28] LABS: Absolute Lymphocyte Count 1.56 X10^3/uL (0.83-4.51); Basophil# 0.03 X10^3/uL; Basophil% 0.3 % (0-1); Eosinophil# 0.18 X10^3/uL; Eosinophils% 2.1 % (0-5); Hematocrit 40.5 % (40-54); Hemoglobin 13.8 g/dL (13.0-16.5); Lymphocyte # 1.56 X10^3/ul (0.83-4.51); Lymphocyte % 17.9 % (19-41); Mean Corp Hgb Conc 34.1 g/dL (32-36); Mean Corpuscular Hgb 30.1 pg (27.0-32.0); Mean Corpuscular Volume 88.2 fL (80-94); Mean Platelet Vol. 12.6 fl (6.2-12.0); Monocyte# 0.89 X10^3/uL; Monocyte% 10.2 % (0-10); NRBC Flagged by Analyzer 0 % (0-5); Neutrophil # 6.02 X10^3/uL (2.7-7.7); Platelet Count 165 K/mm3 (150-450); RBC Distribution Width CV 13.8 % (11.6-14.6); RBC Distribution Width SD 43.8 fl (35.1-43.9); Red Blood Count 4.59 M/mm3 (4.6-6.2); White Blood Count 8.7 K/mm3 (4.4-11.0)
[2022-08-08 13:39] LABS: Vitamin D,25 Hydroxy 43.9 ng/mL
[2022-08-08 13:53] LABS: ALB/GLOB Ratio 0.9 RATIO (0.9-2.4); AST(SGOT) 15 U/L (15-37); Alanine Aminotransfer ALT/SGPT 19 U/L (16-61); Albumin, Serum 3.3 g/dL (3.2-5.0); Alkaline Phosphatase 156 U/L (45-117); Anion Gap 6 (5-15); BUN 16 mg/dL (7-18); BUN/Creat Ratio 9.5 RATIO (10-20); Calcium,Total 8.5 mg/dL (8.5-10.1); Chloride 97 mmol/L (98-107); Creatinine, Serum 1.69 mg/dL (0.70-1.30); EST Glomerular Filtration Rate 41 mL/min (>60); Est Glom Filt Rate - Afr Amer 50 mL/min (>60); Globulin 3.6 g/dL (2.2-4.2); Glucose 309 mg/dL (74-106); Potassium 3.4 mmol/L (3.5-5.1); Protein, Total 6.9 g/dL (6.4-8.2); Sodium Level 134 mmol/L (136-145); Thyroid Stim Hormone (TSH) 2.57 uIU/mL (0.358-3.74)
== END | disposition home or self-care (01) ==
LOC: POLAB3 10:04
PROVIDERS: PCP Family Medicine Geriatric Medicine; Visit Provider Internal Medicine Nephrology
DX: N17.9 Acute kidney failure, unspecified (principal); E55.9 Vitamin D deficiency, unspecified; I10 Essential (primary) hypertension
CPT/HCPCS: 36415; 80053; 82306; 84443; 85025

== ENCOUNTER → 2022-08-09 | Outpatient (CLI) | payer MEDICARE, SELFPAY | END | disposition home or self-care (01) | LOC: PSN 10:24 | PROVIDERS: PCP Family Medicine Geriatric Medicine; Referring Provider Nurse Practitioner Family; Visit Provider Nurse Practitioner Family | DX: I48.11 Longstanding persistent atrial fibrillation (principal) | CPT/HCPCS: 93225; 93226 ==

== ENCOUNTER → 2022-09-04 | Outpatient (CLI) | payer MEDICARE, SELFPAY ==
[2022-09-04 17:51] LABS: Anion Gap 7 (5-15); BUN 14 mg/dL (7-18); BUN/Creat Ratio 8.4 RATIO (10-20); Calcium,Total 8.8 mg/dL (8.5-10.1); Chloride 101 mmol/L (98-107); Creatinine, Serum 1.67 mg/dL (0.70-1.30); EST Glomerular Filtration Rate 42 mL/min (>60); Est Glom Filt Rate - Afr Amer 50 mL/min (>60); Glucose 148 mg/dL (74-106); Potassium 3.4 mmol/L (3.5-5.1); Sodium Level 135 mmol/L (136-145)
== END | disposition home or self-care (01) ==
LOC: POLAB3 13:10
PROVIDERS: PCP Family Medicine Geriatric Medicine; Visit Provider Internal Medicine Nephrology
DX: E87.6 Hypokalemia (principal)
CPT/HCPCS: 36415; 80048

== ENCOUNTER 2022-09-24 13:37 | Observation (INO) | payer MEDICARE, SELFPAY ==
[2022-09-19 11:53] LABS: Bacteria 0 SEEN /hpf (None Seen); Mucous, Urine 0 SEEN /hpf (<or=2+); Squamous Epithelial Cells - UA 0 SEEN /hpf (0-5)
--- NOTE | 2022-09-19 12:10 | RAD_ITS ---
STUDY: X-RAY CHEST REASON FOR EXAM: Male, 86 years old. Atrophic relation. Preop pacemaker insertion. TECHNIQUE: PA and lateral views of the chest. COMPARISON: February 04, 2022 FINDINGS: The lungs are clear and expanded. There is no demonstrated pleural abnormality. Normal size heart. Normal mediastinum and tamra. Normal visualized pulmonary arteries. There is atherosclerotic calcification of the aortic arch with tortuosity. Normal visualized thoracic spine. Normal visualized ribs, clavicles, and shoulders. There is no demonstrated abnormality of the visualized soft tissue structures of the upper abdomen. RAD/Chest PA and Lateral IMPRESSION: No acute cardiopulmonary disease or interval change. Electronically Signed: Elie Rodriguez DO at 17:22 EDT ,
[2022-09-19 12:24] LABS: Color, Urine Yellow (Yellow); Glucose, Dipstick Normal (Normal); Ketone-Dipstick Negative (Negative); Leukocyte Esterase-Dipstick 25 /ul (Negative); Nitrite-Dipstick Negative (Negative); Occult Blood-Urine 10 /ul (Negative); Protein-Dipstick 30 mg/dl (Negative); Urine Bilirubin Dipstick Negative (Negative); Urine Clarity Sl. Cloudy (Clear); Urine Urobilinogen Normal (Normal); Urine pH 6.5 (5.0 - 8.0)
[2022-09-19 12:37] LABS: Red Blood Cells-Urine 0-5 SEEN /hpf (0-5); White Blood Cells 0-5 SEEN /hpf (0-5)
[2022-09-19 12:49] LABS: Anion Gap 6 (5-15); BUN 14 mg/dL (7-18); BUN/Creat Ratio 8.2 RATIO (10-20); Calcium,Total 8.5 mg/dL (8.5-10.1); Chloride 103 mmol/L (98-107); EST Glomerular Filtration Rate 41 mL/min (>60); Est Glom Filt Rate - Afr Amer 49 mL/min (>60); Glucose 128 mg/dL (74-106); Potassium 3.6 mmol/L (3.5-5.1); Sodium Level 139 mmol/L (136-145)
--- NOTE | 2022-09-19 15:18 | CASEMGMT ---
NICOLE BARKLEY NOTE: NICOLE BARKLEY informed pt's daughter, Patti, inquiring about resources for pt next week when returning home after pacemaker insertion. Call placed to Patti at this time. Patti states pt
--- NOTE | 2022-09-19 15:22 | CASEMGMT ---
Addendum entered by Belen Morocho 09/20/22 16:48: Call placed to pt to discuss the below information. Pt states he is agreeable to the plan of [facility] when he discharges from [facility] after the pacemaker insertion. He states he feels he would also benefit from therapy for his balance along w/nursing and an aide. NICOLE BARKLEY informed him [employer] CM would meet w/him when he is @ [facility] and would go over any discharge planning/needs w/him at that time to finalize plans. He voices understanding. Pt states he does not have anyone arranged to take him home @ discharge, but he is still working on that. NICOLE BARKLEY instructed him to let staff know if he is not able to find anyone to take him home. Original Note: NICOLE BARKLEY NOTE: NICOLE BARKLEY informed pt's daughter, Patti, inquiring about resources for pt next week when returning home after pacemaker insertion. Call placed to Patti at this time. Patti states pt has macular degeneration and that he has no site in one eye and limited site in the other. She states he lives alone in an apartment, does not use a walker or a cane, but is able to get around and manage on his own d/t knowing where things are. She states he also manages his own medications. Patti states pt has 4 children (herself and 3 other children), but they all live out of state, except for herself and that she just had surgery, is on medical leave, and is unable to help pt when he returns home. She states does not feel pt will need someone to stay w/him 24/7 but is concerned about his medications, someone checking his incision site, and assisting w/bathing. Discussed options of HHC and private duty agencies. Patti states is interested in HHC for pt. Patti made aware SN typically comes once a week and aide usually 2-3 x's/week to assist w/bathing/dressing, but they do not stay longer. She thinks pt may benefit from therapy as well, but not certain. Patti made aware [facility] has HHC agency and she states would prefer [facility] for continuity of care. Patti aware pt would need to be agreeable to HHC and agency and she voices understanding. She asks for NICOLE BARKLEY to wait until tomorrow to contact pt, as she wishes to discuss/review things w/him first. Patti also interested in Medical Alert info. NICOLE BARKLEY e-mailed list of Private Duty Home Care Agencies and companies for Medical Alert systems. Patti states pt has a couple of friends that take him to appts and one of them may be able to take pt home @ discharge, but she is not sure. NICOLE BARKLEY encouraged her to talk to pt to see if he could talk w/his friends to see if someone may be available to do this. Patti made aware [facility] has van transportation services, but that pt would need to be able to get in/out of his home and the van independently. She voices understanding. Patti denies having further concerns/needs at this time and thanked NICOLE BARKLEY for the information/assistance. Mirtha CUENCA RN, CM
[2022-09-21 10:16] VITALS: BMI 29.1
--- NOTE | 2022-09-21 14:15 | CASEMGMT ---
NICOLE CM: Call received from Dr. Nugent's office. If HHC is arranged at discharge, pt would need to be seen by Dr. Nugent after discharge to reconcile pt's medications, etc prior to initiation of HHC services. Ramiro Andrews RN CM
[2022-09-24] VITALS (8 sets, daily range): BP systolic 156–188; BP diastolic 48–86; PULSE 52–63; RESP 14–18; TEMP 36.6–37.3; O2SAT 95–100
[2022-09-24 11:07] LABS: Hematocrit 42.2 % (40-54); Hemoglobin 14.3 g/dL (13.0-16.5); Mean Corp Hgb Conc 33.9 g/dL (32-36); Mean Corpuscular Hgb 29.6 pg (27.0-32.0); Mean Corpuscular Volume 87.4 fL (80-94); Mean Platelet Vol. 11.6 fl (6.2-12.0); Platelet Count 212 K/mm3 (150-450); RBC Distribution Width SD 44.3 fl (35.1-43.9); Red Blood Count 4.83 M/mm3 (4.6-6.2); White Blood Count 12.7 K/mm3 (4.4-11.0)
[2022-09-24 11:21] LABS: Anion Gap 9 (5-15); BUN 22 mg/dL (7-18); BUN/Creat Ratio 12.4 RATIO (10-20); Calcium,Total 8.5 mg/dL (8.5-10.1); Chloride 104 mmol/L (98-107); Creatinine, Serum 1.77 mg/dL (0.70-1.30); EST Glomerular Filtration Rate 39 mL/min (>60); Est Glom Filt Rate - Afr Amer 47 mL/min (>60); Estimated Creatinine Clearance 30.93 ml/min; Glucose 61 mg/dL (74-106); Sodium Level 135 mmol/L (136-145)
[2022-09-24 13:21] LABS: Bedside Glucose 68 mg/dL (74-106)
--- NOTE | 2022-09-24 13:50 | CL.IE_ITS ---
Patient: ASHIA PEREZ Study Date: 09/24/2022 Performing: Rodolfo Tobias MD : 1935 Age: 86 Gender: male PROCEDURES PERFORMED [id number])INITIAL PACER INSERT+VENTRICULAR LEAD INDICATIONS Longstanding Persistent Atrial fibrillation. I48.11 PROCEDURE DETAILS The patient was brought to the Catheterization Lab in the postabsorptive nonsedated state. Informed consent was obtained prior to the procedure. Local anesthetic was given subcutaneously to the left upper chest area with Lidocaine 2%. Access was achieved and a guidewire was advanced into the left subclavian vein. PPM ventricular lead was inserted / positioned to right ventricular apex. PPM ventricular lead testing performed. PPM ventricular lead testing performed. The Ventricular PM lead sutured in place with 2-0 Silk. Device pocket was irrigated with antibiotic, Ancf 2gm.. PPM generator was attached to the lead(s) and inserted into the pocket. Subcutaneous closure was completed with 3-0 Vicryl. Skin closure was completed with 4-0 Vicryl. Steri-strips applied to Lt chest area. The patient tolerated the procedure well. Estimated Blood Loss: 10 ml's IMPLANTED / EX-PLANTED DEVICES IMPLANTED DEVICE(S): PPM Ventricular lead - Photographer: [employer], Model # Tendril [id number] , Serial # [id number] PPM Generator - Photographer: [employer], Model # Assurity MRI [id number] , Serial # [id number] DEVICE PARAMETERS VENTRICULAR LEAD PARAMETERS: R wave- 4.6 (mV) threshold- 1.0 (V) impedence- 940 (OHMS) DEVICE PARAMETERS: Mode- VVIR Lower rate- 60 Upper rate- 120 CONCLUSIONS / RECOMMENDATIONS Device Conclusions: Successful implantation of a single chamber pacemaker Device Recommendations: Follow up with Primary Care Physician PROCEDURE MEDICATIONS Versed 1 mg IV Fentanyl 50 mcg IV Versed 1 mg IV Oxygen: 2 L/min via nasal cannula Antibiotic given in appropriate timeframe. Ancef 2 Gm IV @ 09/24/2022 12:30:02 Potassium Chloride 40 mEq PO 09/24/2022 11:47:59 IV Fluids: D5W / .9 NaCl IV started @ 75 ml/hr 09/24/2022 12:51:59 Signed By Rodolfo Tobias MD On 09/24/2022 13:49:19 Rodolfo Tobias MD
[2022-09-24 14:06] LABS: Bedside Glucose 182 mg/dL (74-106)
[2022-09-24] MEDS: amLODIPine 5 MG Tablet PO (17:01)
[2022-09-24] MEDS: Tamsulosin HCl 0.4 MG Capsule PO (21:04)
[2022-09-24] MEDS: MELATONIN 10 MG TABLET PO (21:04)
[2022-09-24] MEDS: Pravastatin 40 MG Tablet PO (21:04)
[2022-09-25 03:41] VITALS: BP 159/72; PULSE 62; RESP 18; TEMP 36.2; O2SAT 97
--- NOTE | 2022-09-25 05:55 | RAD_ITS ---
INDICATION: Post permanant ICD/Pacemaker -- inspiration/expiration. Arms Down. Wet read to MD EXAMINATION/TECHNIQUE: X-RAY - XR Chest 3 Views COMPARISON: FINDINGS: LINES/DEVICES: Pacemaker on the left. LUNGS: No consolidation, edema or effusion. No pneumothorax. MEDIASTINUM AND CARDIOVASCULAR STRUCTURES: Cardiac silhouette not enlarged. Central airways and mediastinal contour are unremarkable. BONES AND SOFT TISSUES: Unremarkable. RAD/Chest 3 View IMPRESSION: No evidence of pneumothorax. Electronically Signed: Ganga Ricks MD at 5:48 EDT ,
[2022-09-25 07:54] VITALS: BP 168/78; PULSE 55; RESP 15; TEMP 36.4; O2SAT 96
[2022-09-25] MEDS: Pantoprazole Sodium 20 MG Tablet PO (08:00)
[2022-09-25] MEDS: Glimepiride 4 MG Tablet PO (08:00)
[2022-09-25] MEDS: Potassium Chloride Oral Tablet 20 MEQ 40 MEQ PO (08:00)
[2022-09-25] MEDS: Furosemide 40 MG Tablet PO (08:00)
--- NOTE | 2022-09-25 08:00 | PCM.PN.CARD ---
Subjective Subjective Patient seen and evaluated. Appears to be doing well. Also seen by device nurse. Objective Data Vital Signs: Vital Signs Temp Pulse Resp BP Pulse Ox O2 Del Method 97.6 F L 55 L 15 168/78 H 96 Room Air 09/25/22 07:54 09/25/22 07:54 09/25/22 07:54 09/25/22 07:54 09/25/22 07:54 09/25/22 07:54 Oxygen Delivery Method Room Air Weight: 203 lb Body Mass Index (BMI) 29.1 Intake & Output: Intake and Output for Last 24 Hours 09/23/22 09/24/22 09/25/22 23:59 23:59 23:59 Intake Total 120 / 420 500 / 500 Output Total 125 / 425 650 / 650 Balance -5 / -5 -150 / -150 Lab / Micro Data Result Diagrams: 09/24/22 10:55 09/24/22 10:56 Labs: Laboratory Results - last 24 hr 09/24/22 10:55: WBC 12.7 H, RBC 4.83, Hgb 14.3, Hct 42.2, MCV 87.4, MCH 29.6, MCHC 33.9, RDW Std Deviation 44.3 H, RDW Coeff of Lisa 14.0, Plt Count 212, MPV 11.6 09/24/22 10:56: Sodium 135 L, Potassium 3.0 L, Chloride 104, Carbon Dioxide 22.0, Anion Gap 9, BUN 22 H, Creatinine 1.77 H, Estim Creat Clear Calc 30.93, Est GFR (MDRD) Af Amer 47 L, Est GFR (MDRD) Non-Af 39 L, BUN/Creatinine Ratio 12.4, Glucose 61 L, Calcium 8.5 09/24/22 12:48: POC Glucose 68 L 09/24/22 13:43: POC Glucose 182 H Cardiology Labs/Tests 09/24/22 10:55: WBC 12.7 H, RBC 4.83, Hgb 14.3, Hct 42.2, MCV 87.4, MCH 29.6, MCHC 33.9, Plt Count 212, MPV 11.6 09/24/22 10:56: Sodium 135 L, Potassium 3.0 L, Chloride 104, Carbon Dioxide 22.0, Anion Gap 9, BUN 22 H, Creatinine 1.77 H, Est GFR (MDRD) Af Amer 47 L, Est GFR (MDRD) Non-Af 39 L, BUN/Creatinine Ratio 12.4, Glucose 61 L, Calcium 8.5 Rhythm: EKG: ECHO: Stress Test: Cardiac Cath: PCI: CT Surgery: Holter monitor: EPS: PPM: CXR: Chest CT Scan: Radiography Diagnostic Testing: Radiology Impression Chest X-Ray 09/25/22 05:55 IMPRESSION: No evidence of pneumothorax. Electronically Signed: Ganga Ricks MD at 5:48 EDT , Physical Exam Const alert, oriented x3 and no apparent distress General Appearance: cooperative HEENT hearing grossly normal bilaterally Head and Scalp: atraumatic Eyes EOMs intact bilaterally Neck General: normal visual inspection Chest inspection of chest normal and palpation of chest normal Resp normal respiratory effort Auscultation: clear to auscultation bilaterally Cardio regular rate, regular rhythm, S1 normal heart sound and S2 normal heart sound Jugular Venous Distention: JVD GI normal to inspection, nondistended, normoactive bowel sounds Extremity normal capillary refill and no pedal edema Peripheral Pulses: Yes pulses 2+ throughout and femoral pulses present Skin no rashes or lesions noted Neuro oriented x3 and CN's II-XII intact bilaterally Psych Appearance: grossly normal and appropriate Assessment & Plan Assessment/Plan (1) Longstanding persistent atrial fibrillation: PLAN: He does have longstanding persistent atrial fibrillation. The plan to be to continue him on the anticoagulation which would be restarted after his office visit. He would also remain on the beta-juvencio. (2) Status post cardiac pacemaker procedure: PLAN: He is status post permanent pacemaker implantation. It was interrogated today and noted to be functioning well it will be adjusted appropriately at the office visit. Chest x-ray without any issues. Patient can be discharged for outpatient follow-up.
--- NOTE | 2022-09-25 08:03 | DCINST_ITS ---
Discharge Instructions Diet Discharge Diet: No restrictions Activity Discharge Activity: May Not Drive Additional Activity Instructions:: May shower or bathe on [day 3]. Do not scrub the incision or soak in the tub. Just wash with soap and let the water run over the incision. Gently pat dry with towel. Medications: Take your pain medication as directed. Refer to your discharge instruction sheet for a list of medications you are to take. Dressing / Incision Call your doctor if your incision/area has: Continuous Slow Oozing, Sudden Increased Bleeding, Increased Pain/ Swelling, Increased Redness, Foul Smelling Discharge and Swelling at the incision site Call your doctor if you observe: Fever of 101 or Higher, Shortness of breath, Dizziness, Fainting spells, Swelling in the ankles, Chest pain, Prolonged hiccupping and Increased palpitations (irregular heartbeat) Suture Line Care: Avoid Pulling/Pushing and Avoid Pinching/Bending Additional Dressing/Incision Instructions:: When dressing is removed, wash and dry incision. Keep covered with a light bandage if it is rubbing against your clothing. Do not cover the incision with an airtight bandage. Change the bandage daily. Do not remove steri strips. The strips will fall off on their own. Follow Up Care Please Follow Up With: Rodolfo Tobias MD When: Pacer follow up on october 02 at 1pm Test Results: Test results from this visit will be discussed in further detail at your follow- up appointment, if applicable. Discharge Plan Admission Attending Provider: Rodolfo Tobias Primary Care Provider: Bernard Nugent Chi Discharge Orders/Prescriptions Prescriptions: Held Eliquis 5 mg tablet 5 mg PO BID Hold Instructions: Resume on 10/02/22. No Action cholecalciferol (vitamin D3) 25 mcg (1,000 unit) capsule 25 mcg PO DAILY glimepiride 4 mg tablet 4 mg PO QAM Rx Instructions: administer with breakfast pravastatin 40 MG tablet 40 mg PO QHS Label Comments: CHOLESTEROL omeprazole 20 MG capsule 20 mg PO DAILY Label Comments: ACID RELUX tamsulosin [Flomax] 0.4 mg Capsule 0.4 mg PO QHS furosemide 40 mg tablet 40 mg PO DAILY Rx Instructions: Hold if creatinine is more than 0.5 mg/dL above the baseline melatonin 5 mg tablet 5 mg PO HS PRN (Reason: Insomnia) Referrals / Follow Up: Bernard Nugent Chi, MD [Primary Care Provider] - Disposition Disposition (needs filled in before D/C Order can be placed): Home, Self Care
[2022-09-25 08:12] VITALS: BP 168/78; PULSE 55; RESP 15; TEMP 36.4; O2SAT 96
--- NOTE | 2022-09-25 09:27 | PHA.DC.MR ---
Pharmacy Service has performed discharge medication reconciliation for this patient. The patient's discharge medication list was reviewed for discrepancies and discrepancies were resolved. Home Medications omeprazole 20 mg capsule,delayed release 20 mg PO DAILY reflux 09/19/14 pravastatin 40 mg tablet 40 mg PO QHS cholesterol 09/19/14 cholecalciferol (vitamin D3) 25 mcg (1,000 unit) capsule 25 mcg PO DAILY vitamin 01/24/22 tamsulosin 0.4 mg capsule (Flomax) 0.4 mg PO QHS prostate 02/04/22 apixaban 5 mg tablet (Eliquis) 5 mg PO BID blood thinner 06/19/22 furosemide 40 mg tablet 40 mg PO DAILY edema 07/10/22 melatonin 5 mg tablet 5 mg PO HS PRN Insomnia 08/16/22 glimepiride 4 mg tablet 4 mg PO QAM diabetes 09/18/22
== END 2022-09-25 08:03 | disposition home or self-care (01) ==
LOC: PCU 09-25 08:03
PROVIDERS: Admitting Provider Internal Medicine Cardiovascular Disease; PCP Family Medicine Geriatric Medicine; Referring Provider Internal Medicine Cardiovascular Disease; Visit Provider Internal Medicine Cardiovascular Disease
DX: Z45.018 Encounter for adjustment and management of other part of cardiac pacemaker (principal); I48.11 Longstanding persistent atrial fibrillation; N18.30 Chronic kidney disease, stage 3 unspecified; Z79.84 Long term (current) use of oral hypoglycemic drugs; Z95.0 Presence of cardiac pacemaker; Z79.899 Other long term (current) drug therapy; I12.9 Hypertensive chronic kidney disease with stage 1 through stage 4 chronic kidney disease, or unspecified chronic kidney disease; E78.5 Hyperlipidemia, unspecified; G47.33 Obstructive sleep apnea (adult) (pediatric)
CPT/HCPCS: 33207; 36415; 71046; 71047; 80048; 81001; 82962; 85027; 99152; 99153; 99221; J7040; J7050; A4216; C1894; G0378

== ENCOUNTER 2022-10-22 14:44 | Outpatient (CLI) | payer MEDICARE, SELFPAY ==
[2022-10-22 15:27] LABS: Hematocrit 42.3 % (40-54); Hemoglobin 14.2 g/dL (13.0-16.5); Mean Corp Hgb Conc 33.6 g/dL (32-36); Mean Corpuscular Hgb 30.2 pg (27.0-32.0); Mean Platelet Vol. 11.3 fl (6.2-12.0); Platelet Count 186 K/mm3 (150-450); RBC Distribution Width CV 14.3 % (11.6-14.6); RBC Distribution Width SD 47.2 fl (35.1-43.9); White Blood Count 10.3 K/mm3 (4.4-11.0)
[2022-10-22 15:46] LABS: Anion Gap 4 (5-15); BNP,B-Type NATRIURETIC PEPTIDE 298.6 pg/mL (0-100); BUN 17 mg/dL (7-18); BUN/Creat Ratio 10.2 RATIO (10-20); Calcium,Total 8.2 mg/dL (8.5-10.1); Chloride 105 mmol/L (98-107); Creatinine, Serum 1.67 mg/dL (0.70-1.30); EST Glomerular Filtration Rate 42 mL/min (>60); Est Glom Filt Rate - Afr Amer 50 mL/min (>60); Glucose 216 mg/dL (74-106); Potassium 3.6 mmol/L (3.5-5.1); Sodium Level 138 mmol/L (136-145)
== END 2022-10-22 23:59 | disposition home or self-care (01) ==
LOC: LAB 14:45
PROVIDERS: PCP Family Medicine Geriatric Medicine; Referring Provider Nurse Practitioner Family; Visit Provider Nurse Practitioner Family
DX: I48.11 Longstanding persistent atrial fibrillation (principal); I10 Essential (primary) hypertension; R00.1 Bradycardia, unspecified; R06.02 Shortness of breath
CPT/HCPCS: 36415; 80048; 83880; 85027

== ENCOUNTER → 2022-11-06 | Outpatient (CLI) | payer MEDICARE, SELFPAY ==
[2022-11-06 12:38] LABS: Absolute Lymphocyte Count 1.35 X10^3/uL (0.83-4.51); Absolute Neutrophil Count 5.9 X10^3/uL (2.0-7.7); Basophil# 0.04 X10^3/uL; Basophil% 0.5 % (0-1); Eosinophil# 0.27 X10^3/uL; Eosinophils% 3.2 % (0-5); Hematocrit 44.3 % (40-54); Hemoglobin 15.1 g/dL (13.0-16.5); Lymphocyte # 1.35 X10^3/ul (0.83-4.51); Lymphocyte % 16.1 % (19-41); Mean Corp Hgb Conc 34.1 g/dL (32-36); Mean Corpuscular Hgb 30.2 pg (27.0-32.0); Mean Corpuscular Volume 88.6 fL (80-94); Mean Platelet Vol. 11.7 fl (6.2-12.0); Monocyte# 0.77 X10^3/uL; Monocyte% 9.2 % (0-10); NRBC Flagged by Analyzer 0 % (0-5); Neutrophil # 5.92 X10^3/uL (2.7-7.7); Neutrophil % 70.5 % (47-70); Platelet Count 185 K/mm3 (150-450); RBC Distribution Width CV 14.1 % (11.6-14.6); RBC Distribution Width SD 45.5 fl (35.1-43.9); White Blood Count 8.4 K/mm3 (4.4-11.0)
[2022-11-06 13:10] LABS: Vitamin D,25 Hydroxy 49.2 ng/mL
[2022-11-06 13:23] LABS: ALB/GLOB Ratio 0.9 RATIO (0.9-2.4); AST(SGOT) 20 U/L (15-37); Alanine Aminotransfer ALT/SGPT 21 U/L (16-61); Albumin, Serum 3.5 g/dL (3.2-5.0); Alkaline Phosphatase 151 U/L (45-117); Anion Gap 4 (5-15); BUN 15 mg/dL (7-18); BUN/Creat Ratio 9.7 RATIO (10-20); Calcium,Total 8.7 mg/dL (8.5-10.1); Chloride 105 mmol/L (98-107); Creatinine, Serum 1.55 mg/dL (0.70-1.30); EST Glomerular Filtration Rate 45 mL/min (>60); Est Glom Filt Rate - Afr Amer 55 mL/min (>60); Globulin 3.8 g/dL (2.2-4.2); Glucose 152 mg/dL (74-106); Potassium 3.6 mmol/L (3.5-5.1); Protein, Total 7.3 g/dL (6.4-8.2); Sodium Level 140 mmol/L (136-145); Thyroid Stim Hormone (TSH) 2.03 uIU/mL (0.358-3.74)
== END | disposition home or self-care (01) ==
LOC: LAB 11:50
PROVIDERS: PCP Family Medicine Geriatric Medicine; Referring Provider Family Medicine Geriatric Medicine; Visit Provider Family Medicine Geriatric Medicine
DX: E11.65 Type 2 diabetes mellitus with hyperglycemia (principal); I10 Essential (primary) hypertension; E55.9 Vitamin D deficiency, unspecified
CPT/HCPCS: 36415; 80053; 82306; 84443; 85025

== ENCOUNTER → 2023-01-22 | Outpatient (CLI) | payer MEDICARE, SELFPAY ==
[2023-01-22 11:06] LABS: Absolute Lymphocyte Count 1.04 X10^3/uL (0.83-4.51); Absolute Neutrophil Count 4.7 X10^3/uL (2.0-7.7); Basophil# 0.04 X10^3/uL; Basophil% 0.6 % (0-1); Eosinophil# 0.18 X10^3/uL; Eosinophils% 2.7 % (0-5); Hematocrit 41.5 % (40-54); Hemoglobin 14.2 g/dL (13.0-16.5); Lymphocyte # 1.04 X10^3/ul (0.83-4.51); Lymphocyte % 15.9 % (19-41); Mean Corp Hgb Conc 34.2 g/dL (32-36); Mean Corpuscular Hgb 30.7 pg (27.0-32.0); Mean Corpuscular Volume 89.8 fL (80-94); Mean Platelet Vol. 11.7 fl (6.2-12.0); Monocyte# 0.57 X10^3/uL; Monocyte% 8.7 % (0-10); NRBC Flagged by Analyzer 0 % (0-5); Neutrophil # 4.69 X10^3/uL (2.7-7.7); Neutrophil % 71.6 % (47-70); Platelet Count 179 K/mm3 (150-450); RBC Distribution Width CV 14.3 % (11.6-14.6); RBC Distribution Width SD 47.2 fl (35.1-43.9); Red Blood Count 4.62 M/mm3 (4.6-6.2); White Blood Count 6.6 K/mm3 (4.4-11.0)
[2023-01-22 11:38] LABS: ALB/GLOB Ratio 0.9 RATIO (0.9-2.4); AST(SGOT) 21 U/L (15-37); Alanine Aminotransfer ALT/SGPT 23 U/L (16-61); Albumin, Serum 3.2 g/dL (3.2-5.0); Alkaline Phosphatase 133 U/L (45-117); Anion Gap 7 (5-15); BUN 12 mg/dL (7-18); BUN/Creat Ratio 7.7 RATIO (10-20); Calcium,Total 8.2 mg/dL (8.5-10.1); Chloride 106 mmol/L (98-107); Creatinine, Serum 1.56 mg/dL (0.70-1.30); EST Glomerular Filtration Rate 45 mL/min (>60); Est Glom Filt Rate - Afr Amer 54 mL/min (>60); Globulin 3.4 g/dL (2.2-4.2); Glucose 123 mg/dL (74-106); Potassium 3.5 mmol/L (3.5-5.1); Protein, Total 6.6 g/dL (6.4-8.2); Sodium Level 141 mmol/L (136-145); Thyroid Stim Hormone (TSH) 1.45 uIU/mL (0.358-3.74)
[2023-01-22 14:47] LABS: Vitamin D,25 Hydroxy 45.6 ng/mL
== END | disposition home or self-care (01) ==
LOC: POLAB3 10:34
PROVIDERS: PCP Family Medicine Geriatric Medicine; Visit Provider Family Medicine Geriatric Medicine
DX: E11.65 Type 2 diabetes mellitus with hyperglycemia (principal); I10 Essential (primary) hypertension; E55.9 Vitamin D deficiency, unspecified
CPT/HCPCS: 36415; 80053; 82306; 84443; 85025

== ENCOUNTER → 2023-02-07 | Outpatient (CLI) | payer MEDICARE, SELFPAY ==
[2023-02-07 15:55] LABS: Albumin, Serum 3.5 g/dL (3.2-5.0); BUN 13 mg/dL (7-18); BUN/Creat Ratio 8.5 RATIO (10-20); Calcium,Total 8.5 mg/dL (8.5-10.1); Chloride 100 mmol/L (98-107); Creatinine, Serum 1.53 mg/dL (0.70-1.30); EST Glomerular Filtration Rate 46 mL/min (>60); Est Glom Filt Rate - Afr Amer 56 mL/min (>60); Glucose 159 mg/dL (74-106); Phosphorus 2.9 mg/dL (2.5-4.9); Potassium 3.7 mmol/L (3.5-5.1); Sodium Level 136 mmol/L (136-145)
== END | disposition home or self-care (01) ==
LOC: POLAB3 13:51
PROVIDERS: PCP Family Medicine Geriatric Medicine; Visit Provider Internal Medicine Nephrology
DX: N18.31 Chronic kidney disease, stage 3a (principal)
CPT/HCPCS: 36415; 80069

== ENCOUNTER 2023-03-24 09:49 | Emergency (ER) | payer MEDICARE, SELFPAY ==
[2023-03-24 09:50] VITALS: BP 183/76; PULSE 62; RESP 18; TEMP 36.6; O2SAT 99; BMI 28.3
--- NOTE | 2023-03-24 09:58 | EKG12_ITS ---
Test Reason : WEAKNESS Blood Pressure : / mmHG Vent. Rate : 062 BPM Atrial Rate : 068 BPM P-R Int : 000 ms QRS Dur : 178 ms QT Int : 512 ms P-R-T Axes : 144 -81 117 degrees QTc Int : 519 ms Ventricular-paced rhythm with occasional Premature ventricular complexes with ventricular escape comp lexes Abnormal ECG Confirmed by WILBUR AZEVEDO, VICENTE ([id number]), editor in chief newspaper [employer]RIA OKEEFE ([id number]) on 04/01/2023 7:04:43 AM Referred By: Confirmed By:KEERTHI BOWLES MD
--- NOTE | 2023-03-24 09:58 | RAD_ITS ---
EXAM: XR CHEST, 1 VIEW CLINICAL INDICATION: weakness TECHNIQUE: Frontal view of the chest. COMPARISON: XR Chest dated 09/25/2022 FINDINGS: LUNGS AND PLEURAL SPACES: No consolidation or edema. No pneumothorax. No effusion. HEART: Normal heart size. MEDIASTINUM: No mediastinal or hilar mass. BONES/JOINTS: No acute abnormality. TUBES, LINES AND DEVICES: Right ventricular pacemaker wire remains in place. RAD/Chest 1 View (Portable) IMPRESSION: No acute cardiopulmonary abnormality. No interval change. Electronically Signed: Zac Carias MD at 10:57 EST ,
--- NOTE | 2023-03-24 10:17 | EX.ED.DYSGE1 ---
HPI History of Present Illness Chief Complaint: Weakness Narrative Narrative: 87-year-old male presenting with lightheadedness, generalized weakness, anxiety. He states that started last evening prior to going to bed. He tried to lay down several times and was unable to sleep. He denies chest pain, palpitations, shortness of breath. He denies fevers or chills. He denies nausea or vomiting. Patient states has been up all night feeling anxious. Patient states he was able to eat breakfast and drink some orange juice and he feels better after this. He suspects that maybe his sugar was low. Patient states has had this in the past. He is on glimepiride. No recent changes. [facility] Medical History Atrial fibrillation Chronic renal insufficiency, stage III (moderate) Closed head injury Diverticula of colon Diverticulitis large intestine Diverticulosis Essential (primary) hypertension Fall Hyperlipidemia Hypertension Left ventricular diastolic dysfunction Longstanding persistent atrial fibrillation Non-rheumatic tricuspid valve insufficiency Non-smoker Nonrheumatic mitral (valve) insufficiency Obesity Obstructive sleep apnea Paroxysmal atrial fibrillation Right bundle branch block (RBBB) with left anterior fascicular block Sleep apnea Type 2 diabetes mellitus Home Medications omeprazole 20 mg capsule,delayed release 20 mg PO DAILY reflux 09/19/14 [History Last Taken 12/21/21] pravastatin 40 mg tablet 40 mg PO QHS cholesterol 09/19/14 [History Last Taken 12/21/21] cholecalciferol (vitamin D3) 25 mcg (1,000 unit) capsule 25 mcg PO DAILY vitamin 01/24/22 [History Last Taken Unknown] tamsulosin 0.4 mg capsule (Flomax) 0.4 mg PO QHS prostate 02/04/22 [History Last Taken Unknown] melatonin 5 mg tablet 5 mg PO HS PRN Insomnia 08/16/22 [History Last Taken Unknown] furosemide 40 mg tablet 40 mg PO DAILY edema #90 tabs 10/30/22 [Rx Last Taken Unknown] apixaban 2.5 mg tablet 2.5 mg PO BID blood thinner #180 tabs 02/01/23 [Rx Last Taken Unknown] glimepiride 4 mg tablet 1 mg PO QAM diabetes 02/01/23 [History Last Taken Unknown] potassium chloride 20 mEq tablet,extended release 10 meq PO DAILY 02/01/23 [History Last Taken Unknown] Allergy/AdvReac Type Severity Reaction Status Date / Time codeine AdvReac Other Verified 03/24/23 09:52 lisinopril AdvReac Other Verified 03/24/23 09:52 Family History Father CVA (cerebral vascular accident) Mother Diabetes Sister Heart disease PPM Surgical History H/O hemicolectomy History of appendectomy History of cataract surgery History of tonsillectomy Hx of cholecystectomy Social History Smoking Status: Never smoker alcohol intake: current ROS ROS ED Constitutional Constitutional ED: Denies chills, fever(s) or sweats Eyes Eyes: Denies blurry vision or change in vision ENT ENT ED: Denies ear pain or sore throat Cardiovascular Cardiovascular: Denies chest pain, palpitations or racing heartbeat Respiratory/Chest Respiratory/Chest: Denies cough, dyspnea or sputum Gastrointestinal Gastrointestinal: Denies abdominal pain, constipation, diarrhea, nausea or vomiting Genitourinary Genitourinary ED: Denies dysuria, hematuria or urinary frequency Musculoskeletal Musculoskeletal: Denies arthralgias, myalgias or neck pain Integumentary Denies abscess, Abrasions or rash Neurologic Neurologic: Denies headache(s) or paresthesias Psychiatric Psychiatric: Denies anxiety, depression, suicidal ideation or suicidal thoughts Endocrine Endocrinology: Denies polydipsia or polyuria EXAM Physical Exam Const Vital Signs: 03/24/23 09:50 03/24/23 11:11 Temperature 98 F Temperature Source Temporal Pulse Rate 62 60 Respiratory Rate 18 18 Blood Pressure 183/76 H 198/97 H Blood Pressure Mean 111 130 Pulse Ox 99 99 Oxygen Delivery Method Room Air Room Air Positive well nourished General Appearance ED: NAD; Negative for pallor HEENT Reports moist mucous membranes Eyes PERRL and EOMs intact bilaterally Neck no lymphadenopathy Chest Wall inspection of chest normal Resp normal respiratory effort and clear to auscultation bilaterally Auscultation: Negative for rales, rhonchi or wheezes Cardio regular rate and regular rhythm GI normal to inspection, nondistended, normoactive bowel sounds Extremity normal to inspection Neuro oriented x3 and CN's II-XII intact bilaterally Sensorium / Orientation: alert Motor Exam: strength 5/5 throughout Psych mental status grossly normal Skin no rashes or lesions noted General Skin Exam: Negative for jaundice or pallor MDM MDM MDM Narrative Medical decision making narrative: Patient presenting with weakness, lightheadedness, anxiety. Differential includes anxiety, dehydration, electrode abnormalities, dysrhythmia, hypoglycemia, ACS, pneumonia, UTI. CBC obtained to assess white blood cell count, hemoglobin, platelets. CMP to assess liver function, renal function and electrolytes. Urinalysis to assess for UTI. High-sensitivity troponin EKG to assess for ischemia/dysrhythmia. Chest x-ray to rule out pneumonia. I did order a COVID and influenza swab however the patient declines. CBC shows a normal white blood cell count 8.6. Hemoglobin stable 14.7. Platelets are normal at 170. Creatinine elevated at 1.92 and patient was given a liter of IV fluids. Electrolytes are normal. LFTs show mild elevation in total bilirubin 2.2 however this is been elevated in the past. High-sensitivity troponin is 32. EKG on my interpretation appears to be a paced rhythm at 60 bpm without signs of ischemia. Chest x-ray on my interpretation shows no acute process. Radiologist services and agrees. Patient noted to have elevated blood pressure today and was given 10 hydralazine. Blood pressure has come down slightly. It is now 190/87. CT of the brain was obtained due to the symptoms and the high blood pressure. This was negative for acute findings. Discussed patient's findings with Dr. Nugent who stated he can follow-up with his office tomorrow and given 50 losartan here today patient was amenable to this plan. Discharged in stable condition. Impression: 1. Lightheadedness 2. Weakness 3. Anxiety 4. Hypertension Lab Data Attestation: I reviewed the patient's lab results. Labs: Laboratory Results - last 24 hr 03/24/23 03/24/23 10:10 10:22 WBC 8.6 RBC 4.82 Hgb 14.7 Hct 43.0 MCV 89.2 MCH 30.5 MCHC 34.2 RDW Std Deviation 44.8 H RDW Coeff of Lisa 13.8 Plt Count 170 MPV 11.7 Immature Gran % (Auto) 0.500 Neut % (Auto) 82.0 H Lymph % (Auto) 9.1 L [place] % (Auto) 6.9 Eos % (Auto) 1.0 Baso % (Auto) 0.5 Absolute Neuts (auto) 7.1 Absolute Lymphs (auto) 0.79 L Nucleated RBC % 0 Sodium 135 L Potassium 3.7 Chloride 99 Carbon Dioxide 29.0 Anion Gap 7 BUN 19 H Creatinine 1.92 H Estim Creat Clear Calc 27.99 Est GFR (MDRD) Af Amer 43 L Est GFR (MDRD) Non-Af 35 L BUN/Creatinine Ratio 9.9 L Glucose 279 H Calcium 8.4 L Total Bilirubin 2.20 H AST 14 L ALT 20 Alkaline Phosphatase 132 H Troponin I High Sens 32 Total Protein 6.9 Albumin 3.2 Globulin 3.7 Albumin/Globulin Ratio 0.9 Urine Color Yellow Urine Clarity Clear Urine pH 7.0 Ur Specific [place] 1.010 Urine Protein 15 H Urine Glucose (UA) 100 H Urine Ketones Negative Urine Occult Blood 10 H Urine Nitrite Negative Urine Bilirubin Negative Urine Urobilinogen Normal Ur Leukocyte Esterase Negative Urine RBC 0 SEEN Urine WBC 0 SEEN Ur Squamous Epith Cells 0 SEEN Urine Bacteria 0 SEEN Urine Mucus 0 SEEN Radiography Diagnostic Testing: Clinical Impression(s) from Imaging Studies Chest X-Ray 03/24/23 09:58 IMPRESSION: No acute cardiopulmonary abnormality. No interval change. Electronically Signed: Zac Carias MD at 10:57 EST , Brain CT 03/24/23 11:01 IMPRESSION: 1. No acute intracranial abnormality. 2. Stable senescent changes. Electronically Signed: Zac Carias MD at 11:46 EST , Discharge Plan Triage Chief Complaint: Weakness ED Provider: Raghu Acosta Dx/Rx/DC Orders Instructions: ED Anxiety Reaction, ED Hypertension, Established, ED Weakness (Uncertain Cause) Prescriptions: No Action cholecalciferol (vitamin D3) 25 mcg (1,000 unit) capsule 25 mcg PO DAILY glimepiride 4 mg tablet 1 mg PO QAM Rx Instructions: administer with breakfast potassium chloride 20 mEq tablet extended release 10 meq PO DAILY Eliquis 2.5 mg tablet 2.5 mg PO BID Qty: 180 3RF Hold Instructions: Resume on 10/02/22. pravastatin 40 MG tablet 40 mg PO QHS Patient Comments: CHOLESTEROL omeprazole 20 MG capsule 20 mg PO DAILY Patient Comments: ACID RELUX tamsulosin [Flomax] 0.4 mg Capsule 0.4 mg PO QHS melatonin 5 mg tablet 5 mg PO HS PRN (Reason: Insomnia) furosemide 40 mg tablet 40 mg PO DAILY Qty: 90 3RF Rx Instructions: Hold if creatinine is more than 0.5 mg/dL above the baseline Primary Care Provider: Bernard Nugent Chi Referrals: Bernard Nugent Chi, MD [Primary Care Provider] - Disposition Disposition: Home, Self Care
--- NOTE | 2023-03-24 10:24 | ED.RN ---
Patient refused nasal swab. EMD aware
[2023-03-24 10:25] LABS: Bacteria 0 SEEN /hpf (None Seen); Mucous, Urine 0 SEEN /hpf (<or=2+); Red Blood Cells-Urine 0 SEEN /hpf (0-5); Squamous Epithelial Cells - UA 0 SEEN /hpf (0-5); White Blood Cells 0 SEEN /hpf (0-5)
[2023-03-24 10:27] LABS: Color, Urine Yellow (Yellow); Glucose, Dipstick 100 mg/dl (Normal); Ketone-Dipstick Negative (Negative); Leukocyte Esterase-Dipstick Negative /ul (Negative); Nitrite-Dipstick Negative (Negative); Occult Blood-Urine 10 /ul (Negative); Protein-Dipstick 15 mg/dl (Negative); Urine Bilirubin Dipstick Negative (Negative); Urine Clarity Clear (Clear); Urine Urobilinogen Normal (Normal)
[2023-03-24 10:29] LABS: Absolute Lymphocyte Count 0.79 X10^3/uL (0.83-4.51); Absolute Neutrophil Count 7.1 X10^3/uL (2.0-7.7); Basophil# 0.04 X10^3/uL; Basophil% 0.5 % (0-1); Eosinophil# 0.09 X10^3/uL; Hemoglobin 14.7 g/dL (13.0-16.5); Lymphocyte # 0.79 X10^3/ul (0.83-4.51); Lymphocyte % 9.1 % (19-41); Mean Corp Hgb Conc 34.2 g/dL (32-36); Mean Corpuscular Hgb 30.5 pg (27.0-32.0); Mean Corpuscular Volume 89.2 fL (80-94); Mean Platelet Vol. 11.7 fl (6.2-12.0); Monocyte% 6.9 % (0-10); NRBC Flagged by Analyzer 0 % (0-5); Neutrophil # 7.08 X10^3/uL (2.7-7.7); Platelet Count 170 K/mm3 (150-450); RBC Distribution Width CV 13.8 % (11.6-14.6); RBC Distribution Width SD 44.8 fl (35.1-43.9); Red Blood Count 4.82 M/mm3 (4.6-6.2); White Blood Count 8.6 K/mm3 (4.4-11.0)
[2023-03-24 10:37] LABS: ALB/GLOB Ratio 0.9 RATIO (0.9-2.4); AST(SGOT) 14 U/L (15-37); Alanine Aminotransfer ALT/SGPT 20 U/L (16-61); Albumin, Serum 3.2 g/dL (3.2-5.0); Alkaline Phosphatase 132 U/L (45-117); Anion Gap 7 (5-15); BUN 19 mg/dL (7-18); BUN/Creat Ratio 9.9 RATIO (10-20); Calcium,Total 8.4 mg/dL (8.5-10.1); Chloride 99 mmol/L (98-107); Creatinine, Serum 1.92 mg/dL (0.70-1.30); EST Glomerular Filtration Rate 35 mL/min (>60); Est Glom Filt Rate - Afr Amer 43 mL/min (>60); Estimated Creatinine Clearance 27.99 ml/min; Globulin 3.7 g/dL (2.2-4.2); Glucose 279 mg/dL (74-106); Potassium 3.7 mmol/L (3.5-5.1); Protein, Total 6.9 g/dL (6.4-8.2); Sodium Level 135 mmol/L (136-145); Troponin-I HS 32 pg/mL (3.0-78.0)
--- NOTE | 2023-03-24 11:01 | CT_ITS ---
EXAM: CT HEAD WITHOUT INTRAVENOUS CONTRAST CLINICAL INDICATION: Hypertensive TECHNIQUE: Multiple axial images were obtained of the head without intravenous contrast. This CT exam was performed using one or more of the following dose reduction techniques: automated exposure control, adjustment of the mA and/or kV according to patient size, and/or use of iterative reconstruction technique. COMPARISON: CT Head dated 10/25/2021 FINDINGS: BRAIN AND EXTRA-AXIAL SPACES: No hemorrhage or mass effect. No acute ischemia. Areas of diminished white matter density noted within both cerebral hemispheres suggestive of chronic microvascular change. Prominence of the cortical sulci and ventricles related to volume loss change. Incidental 9 mm left frontal meningioma again noted. BONES/JOINTS: No suspicious lytic or blastic abnormality. SINUSES: No acute sinusitis. MASTOID AIR CELLS: Normal. Clear. ORBITS: Postoperative changes of the left globe again noted. CT/Brain/Head without Contrast IMPRESSION: 1. No acute intracranial abnormality. 2. Stable senescent changes. Electronically Signed: Zac Carias MD at 11:46 EST ,
[2023-03-24] MEDS: 0.9% Normal Saline (1000mL) 1,000 ML 999 ML IV (11:09)
[2023-03-24] MEDS: hydrALAZINE 20 MG/ML Vial 10 MG IV (11:10)
[2023-03-24 11:11] VITALS: BP 198/97; PULSE 60; RESP 18; O2SAT 99
[2023-03-24 12:31] VITALS: BP 190/70; PULSE 76; RESP 15; O2SAT 97
[2023-03-24] MEDS: Losartan Potassium 50 MG Tablet PO (12:37)
== END 2023-03-24 12:41 | disposition home or self-care (01) ==
PROVIDERS: Emergency Provider Student in an Organized Health Care Education/Training Program; PCP Family Medicine Geriatric Medicine; Visit Provider Student in an Organized Health Care Education/Training Program
DX: R53.1 Weakness (principal); E11.22 Type 2 diabetes mellitus with diabetic chronic kidney disease; I48.0 Paroxysmal atrial fibrillation; N18.30 Chronic kidney disease, stage 3 unspecified; F41.9 Anxiety disorder, unspecified; I12.9 Hypertensive chronic kidney disease with stage 1 through stage 4 chronic kidney disease, or unspecified chronic kidney disease; E78.5 Hyperlipidemia, unspecified; R42 Dizziness and giddiness; Z79.84 Long term (current) use of oral hypoglycemic drugs; Z79.899 Other long term (current) drug therapy; Z79.01 Long term (current) use of anticoagulants; Z90.49 Acquired absence of other specified parts of digestive tract
CPT/HCPCS: 70450; 71045; 80053; 81001; 84484; 85025; 93005; 96361; 96374; 99284

== ENCOUNTER → 2023-03-25 | Outpatient (CLI) | payer MEDICARE, SELFPAY ==
[2023-03-25 15:59] LABS: Anion Gap 8 (5-15); BUN 17 mg/dL (7-18); BUN/Creat Ratio 10.2 RATIO (10-20); Calcium,Total 8.6 mg/dL (8.5-10.1); Chloride 103 mmol/L (98-107); Creatinine, Serum 1.67 mg/dL (0.70-1.30); EST Glomerular Filtration Rate 42 mL/min (>60); Est Glom Filt Rate - Afr Amer 50 mL/min (>60); Glucose 154 mg/dL (74-106); Potassium 3.7 mmol/L (3.5-5.1); Sodium Level 138 mmol/L (136-145)
== END | disposition home or self-care (01) ==
LOC: POLAB3 14:36
PROVIDERS: PCP Family Medicine Geriatric Medicine; Visit Provider Family Medicine Geriatric Medicine
DX: N17.9 Acute kidney failure, unspecified (principal)
CPT/HCPCS: 36415; 80048

== ENCOUNTER 2023-05-26 17:47 | Emergency (ER) | payer MEDICARE, SELFPAY ==
[2023-05-26 17:48] VITALS: BP 181/92; PULSE 59; RESP 16; TEMP 35.9; O2SAT 99; BMI 30.2
--- NOTE | 2023-05-26 17:55 | EKG12_ITS ---
Test Reason : Blood Pressure : / mmHG Vent. Rate : 060 BPM Atrial Rate : 122 BPM P-R Int : 000 ms QRS Dur : 174 ms QT Int : 488 ms P-R-T Axes : 000 -78 095 degrees QTc Int : 488 ms Ventricular-paced rhythm Abnormal ECG Confirmed by JUNAID AZEVEDO, KEL ([id number]), art editor KEVIN WANG ([id number]) on 05/28/2023 9:52:59 AM Referred By: Confirmed By:EKL QUIROGA MD
--- NOTE | 2023-05-26 18:00 | EX.ED.DYSGE1 ---
HPI <ANDRES Montes - Last Filed: 05/26/23 19:03> History of Present Illness Chief Complaint: General Illness Narrative Narrative: Patient presenting today due to feeling dehydrated. He reports that he was watching the [employer] game and after he was finished he felt dehydrated and his mouth felt dry. He reports that he has been sipping on water throughout the day right and has not had less to drink than usual. He does take a daily Lasix, but is unsure why he takes this. He reports that he feels a little weak and anxious as well but otherwise feels fine. He denies fevers, chills, chest pain, shortness of breath, abdominal pain, nausea, and vomiting. [facility] <ANDRES Montes - Last Filed: 05/26/23 19:03> [facility] Medical History Atrial fibrillation Chronic renal insufficiency, stage III (moderate) Closed head injury Diverticula of colon Diverticulitis large intestine Diverticulosis Essential (primary) hypertension Fall Hyperlipidemia Hypertension Left ventricular diastolic dysfunction Longstanding persistent atrial fibrillation Non-rheumatic tricuspid valve insufficiency Non-smoker Nonrheumatic mitral (valve) insufficiency Obesity Obstructive sleep apnea Paroxysmal atrial fibrillation Right bundle branch block (RBBB) with left anterior fascicular block Sleep apnea Type 2 diabetes mellitus Home Medications omeprazole 20 mg capsule,delayed release 20 mg PO DAILY reflux 09/19/14 [History Last Taken 12/21/21] pravastatin 40 mg tablet 40 mg PO QHS cholesterol 09/19/14 [History Last Taken 12/21/21] cholecalciferol (vitamin D3) 25 mcg (1,000 unit) capsule 25 mcg PO DAILY vitamin 01/24/22 [History Last Taken Unknown] tamsulosin 0.4 mg capsule (Flomax) 0.4 mg PO QHS prostate 02/04/22 [History Last Taken Unknown] melatonin 5 mg tablet 5 mg PO HS PRN Insomnia 08/16/22 [History Last Taken Unknown] furosemide 40 mg tablet 40 mg PO DAILY edema #90 tabs 10/30/22 [Rx Last Taken Unknown] glimepiride 4 mg tablet 1 mg PO QAM diabetes 02/01/23 [History Last Taken Unknown] potassium chloride 20 mEq tablet,extended release 10 meq PO DAILY 02/01/23 [History Last Taken Unknown] apixaban 2.5 mg tablet 2.5 mg PO BID blood thinner #180 tabs 04/01/23 [Rx Last Taken Unknown] Allergy/AdvReac Type Severity Reaction Status Date / Time codeine AdvReac Other Verified 03/24/23 09:52 lisinopril AdvReac Other Verified 03/24/23 09:52 Family History Father CVA (cerebral vascular accident) Mother Diabetes Sister Heart disease PPM Surgical History H/O hemicolectomy History of appendectomy History of cataract surgery History of tonsillectomy Hx of cholecystectomy Social History Smoking Status: Never smoker alcohol intake: current ROS <ANDRES Montes - Last Filed: 05/26/23 19:03> ROS ED Constitutional Constitutional ED: Denies chills or fever(s) Cardiovascular Cardiovascular: Denies chest pain Respiratory/Chest Respiratory/Chest: Denies cough or dyspnea Gastrointestinal Gastrointestinal: Denies abdominal pain, nausea or vomiting Genitourinary Genitourinary ED: Denies dysuria, hematuria or urinary urgency Musculoskeletal Musculoskeletal: Denies arthralgias or myalgias Integumentary Denies rash Neurologic Neurologic: Reports weakness EXAM <ANDRES Montes - Last Filed: 05/26/23 19:03> Physical Exam Const Vital Signs: 05/26/23 17:48 05/26/23 18:26 Temperature 96.6 F L Temperature Source Temporal Pulse Rate 59 L Respiratory Rate 16 Respiratory Pattern Normal Blood Pressure 181/92 H Blood Pressure Mean 121 Pulse Ox 99 Oxygen Delivery Method Room Air Positive well nourished, well developed and no apparent distress General Appearance ED: well developed HEENT Reports normocephalic and head/scalp atraumatic Mouth ED: Yes moist mucous membranes normal Eyes PERRL and EOMs intact bilaterally Neck full ROM and supple Chest Wall inspection of chest normal Resp normal respiratory effort and clear to auscultation bilaterally Cardio regular rate and regular rhythm GI soft to palpation, non-tender, non-distended and no masses Back/Spine normal ROM and normal to inspection Extremity normal to inspection and full ROM Extremity Narrative: Slight nonpitting edema at the bilateral lower extremities that ends above the ankles. Neuro oriented x3, CN's II-XII intact bilaterally, moves all extremities, no focal motor deficits and no sensory deficits noted Sensorium / Orientation: awake and alert Psych mental status grossly normal and thought process normal Skin no rashes or lesions noted and no wounds <Dr. Anson Fonseca MD - Last Filed: 05/26/23 18:06> Physical Exam Const Vital Signs: 05/26/23 17:48 05/26/23 18:26 Temperature 96.6 F L Temperature Source Temporal Pulse Rate 59 L Respiratory Rate 16 Respiratory Pattern Normal Blood Pressure 181/92 H Blood Pressure Mean 121 Pulse Ox 99 Oxygen Delivery Method Room Air MDM <ANDRES Montes - Last Filed: 05/26/23 19:03> [facility] MDM Narrative Medical decision making narrative: Patient presenting due to feeling dehydrated. He reports feeling a little weak as well but otherwise feels well. He will be given IV fluids and labs will be obtained to rule out leukocytosis, anemia, electrolyte abnormality, hepatobiliary etiology, and ANISH. Chest x-ray will be obtained to rule out cardiopulmonary abnormality and is unremarkable. CBC unremarkable. CMP shows a BUN of 21 which is slightly elevated from baseline, creatinine 1.77, total bilirubin 2.2 which is consistent with previous labs, alkaline phosphatase 142. On reexamination he reports improvement of his symptoms. He reports that he feels better now that he is, around people. He does report a history of anxiety and thinks that he was feeling a little anxious. He has been reassured. He is to follow-up with his PCP and will be discharged home in stable condition. He is comfortable with plan. Given return instructions. I have personally performed a face to face assessment of the patient and have reviewed the ANDERSON Note. I performed a substantive portion of the visit including all aspects of the following. My fuentes findings include: History is 87-year-old male history of a pacemaker and left ventricular diastolic dysfunction. On Lasix. States he feels like he is dehydrated and just generally weak. Denies nausea, vomiting or diarrhea. No melena. No fever or cough. No abdominal pain. Denies chest pain or shortness of breath. Similar episode 1 to 2 months ago was secondary to dehydration. Exam is [well-appearing 87-year-old male. Vital signs are stable afebrile. He is standing at bedside. Pulse ox 9 9% on room air no hypoxia. Family in the room. HEENT exam unremarkable. Moist weeks membranes. Neck nontender no JVD. No lymphadenopathy. Lungs clear to auscultation bilaterally. Heart regular rhythm rate about 60 no murmur. Abdomen soft, nontender, nondistended normal bowel sounds no peritoneal signs. Moving all 4 extremities. 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 He does have trace chronic edema both lower extremities is not new or changed according to the patient. Neurologically is awake and alert. Answering questions following commands.] Medical Decision Making [87-year-old male with generalized weakness. Screening labs. No urinary symptoms. Chest x-ray and EKG also. Exam benign. IV fluids.] Other additions or changes: [None] Lab Data Labs: Laboratory Results - last 24 hr 05/26/23 18:07 WBC 10.4 RBC 5.04 Hgb 15.6 Hct 45.5 MCV 90.3 MCH 31.0 MCHC 34.3 RDW Std Deviation 43.1 RDW Coeff of Lisa 13.2 Plt Count 206 MPV 11.1 Immature Gran % (Auto) 0.700 Neut % (Auto) 76.8 H Lymph % (Auto) 11.5 L [place] % (Auto) 9.1 Eos % (Auto) 1.3 Baso % (Auto) 0.6 Absolute Neuts (auto) 8.0 H Absolute Lymphs (auto) 1.19 Nucleated RBC % 0 Sodium 137 Potassium 3.6 Chloride 102 Carbon Dioxide 29.0 Anion Gap 6 BUN 21 H Creatinine 1.77 H Estim Creat Clear Calc 30.36 Est GFR (MDRD) Af Amer 47 L Est GFR (MDRD) Non-Af 39 L BUN/Creatinine Ratio 11.9 Glucose 106 Calcium 8.5 Total Bilirubin 2.20 H AST 31 ALT 32 Alkaline Phosphatase 142 H Total Protein 7.3 Albumin 3.5 Globulin 3.8 Albumin/Globulin Ratio 0.9 Radiography Diagnostic Testing: Clinical Impression(s) from Imaging Studies Chest X-Ray 05/26/23 18:15 IMPRESSION: No acute findings in the chest. Electronically Signed: Sujit Nicholson DO at 18:28 EST , EKG Initial EKG: Comments: 68 bpm, ventricular paced rhythm, no ST elevation, reviewed and interpreted by attending ED physician. <Dr. Anson Fonesca MD - Last Filed: 05/26/23 18:06> [facility] Narrative Medical decision making narrative: I have personally performed a face to face assessment of the patient and have reviewed the ANDERSON Note. I performed a substantive portion of the visit including all aspects of the following. My fuentes findings include: History is 87-year-old male history of a pacemaker and left ventricular diastolic dysfunction. On Lasix. States he feels like he is dehydrated and just generally weak. Denies nausea, vomiting or diarrhea. No melena. No fever or cough. No abdominal pain. Denies chest pain or shortness of breath. Similar episode 1 to 2 months ago was secondary to dehydration. Exam is [well-appearing 87-year-old male. Vital signs are stable afebrile. He is standing at bedside. Pulse ox 9 9% on room air no hypoxia. Family in the room. HEENT exam unremarkable. Moist weeks membranes. Neck nontender no JVD. No lymphadenopathy. Lungs clear to auscultation bilaterally. Heart regular rhythm rate about 60 no murmur. Abdomen soft, nontender, nondistended normal bowel sounds no peritoneal signs. Moving all 4 extremities. 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 He does have trace chronic edema both lower extremities is not new or changed according to the patient. Neurologically is awake and alert. Answering questions following commands.] Medical Decision Making [87-year-old male with generalized weakness. Screening labs. No urinary symptoms. Chest x-ray and EKG also. Exam benign. IV fluids.] Other additions or changes: [None] History & Record Review Discussion w/independent historian: Patient and Family Additional record(s) reviewed:: Prior inpatient record, Prior outpatient record, Prior ED visit and Prior labs Lab Data Attestation: I reviewed the patient's lab results. Labs: Laboratory Results - last 24 hr 05/26/23 18:07 WBC 10.4 RBC 5.04 Hgb 15.6 Hct 45.5 MCV 90.3 MCH 31.0 MCHC 34.3 RDW Std Deviation 43.1 RDW Coeff of Lisa 13.2 Plt Count 206 MPV 11.1 Immature Gran % (Auto) 0.700 Neut % (Auto) 76.8 H Lymph % (Auto) 11.5 L [place] % (Auto) 9.1 Eos % (Auto) 1.3 Baso % (Auto) 0.6 Absolute Neuts (auto) 8.0 H Absolute Lymphs (auto) 1.19 Nucleated RBC % 0 Sodium 137 Potassium 3.6 Chloride 102 Carbon Dioxide 29.0 Anion Gap 6 BUN 21 H Creatinine 1.77 H Estim Creat Clear Calc 30.36 Est GFR (MDRD) Af Amer 47 L Est GFR (MDRD) Non-Af 39 L BUN/Creatinine Ratio 11.9 Glucose 106 Calcium 8.5 Total Bilirubin 2.20 H AST 31 ALT 32 Alkaline Phosphatase 142 H Total Protein 7.3 Albumin 3.5 Globulin 3.8 Albumin/Globulin Ratio 0.9 Radiography Chest X-Ray - ED: 1 View and Read by ED Physician Diagnostic Testing: Clinical Impression(s) from Imaging Studies Chest X-Ray 05/26/23 18:15 IMPRESSION: No acute findings in the chest. Electronically Signed: Sujit Nicholson DO at 18:28 EST , Discharge Plan Triage Chief Complaint: General Illness Other Complaint: Weakness ED Midlevel Provider: Annie Bond ED Provider: Anson Fonseca Dx/Rx/DC Orders Clinical Impression: Acute dehydration, Weakness, CKD (chronic kidney disease) Prescriptions: No Action cholecalciferol (vitamin D3) 25 mcg (1,000 unit) capsule 25 mcg PO DAILY glimepiride 4 mg tablet 1 mg PO QAM Rx Instructions: administer with breakfast potassium chloride 20 mEq tablet extended release 10 meq PO DAILY pravastatin 40 MG tablet 40 mg PO QHS Patient Comments: CHOLESTEROL omeprazole 20 MG capsule 20 mg PO DAILY Patient Comments: ACID RELUX tamsulosin [Flomax] 0.4 mg Capsule 0.4 mg PO QHS melatonin 5 mg tablet 5 mg PO HS PRN (Reason: Insomnia) furosemide 40 mg tablet 40 mg PO DAILY Qty: 90 3RF Rx Instructions: Hold if creatinine is more than 0.5 mg/dL above the baseline apixaban 2.5 mg tablet 2.5 mg PO BID Qty: 180 3RF Hold Instructions: Resume on 10/02/22. Primary Care Provider: Bernard Nugent Chi Referrals: Bernard Nugent Chi, MD [Primary Care Provider] - 3-5 Days Activity Restrictions/Additional Instructions: Stay well-hydrated. Follow-up with your PCP and return for any worsening of your symptoms. Disposition Disposition: Home, Self Care
[2023-05-26 18:14] LABS: Absolute Lymphocyte Count 1.19 X10^3/uL (0.83-4.51); Basophil# 0.06 X10^3/uL; Basophil% 0.6 % (0-1); Eosinophil# 0.14 X10^3/uL; Eosinophils% 1.3 % (0-5); Hematocrit 45.5 % (40-54); Hemoglobin 15.6 g/dL (13.0-16.5); Lymphocyte # 1.19 X10^3/ul (0.83-4.51); Lymphocyte % 11.5 % (19-41); Mean Corp Hgb Conc 34.3 g/dL (32-36); Mean Corpuscular Volume 90.3 fL (80-94); Mean Platelet Vol. 11.1 fl (6.2-12.0); Monocyte# 0.94 X10^3/uL; Monocyte% 9.1 % (0-10); NRBC Flagged by Analyzer 0 % (0-5); Neutrophil # 7.98 X10^3/uL (2.7-7.7); Neutrophil % 76.8 % (47-70); Platelet Count 206 K/mm3 (150-450); RBC Distribution Width CV 13.2 % (11.6-14.6); RBC Distribution Width SD 43.1 fl (35.1-43.9); Red Blood Count 5.04 M/mm3 (4.6-6.2); White Blood Count 10.4 K/mm3 (4.4-11.0)
--- NOTE | 2023-05-26 18:15 | RAD_ITS ---
EXAM: XR CHEST, 1 VIEW CLINICAL INDICATION: weakness TECHNIQUE: Frontal view of the chest. COMPARISON: 03/24/2023 FINDINGS: LUNGS AND PLEURAL SPACES: No significant abnormality. No consolidation or edema. No pneumothorax. No effusion. HEART: No significant abnormality. Cardiac silhouette not enlarged. MEDIASTINUM: Central airways and mediastinal contour are unremarkable. BONES/JOINTS: No significant abnormality. No acute fracture. SOFT TISSUES: No significant abnormality. VASCULATURE: Atherosclerosis. TUBES, LINES AND DEVICES: Left-sided cardiac pacer. RAD/Chest 1 View (Portable) IMPRESSION: No acute findings in the chest. Electronically Signed: Sujit Nicholson DO at 18:28 EST ,
[2023-05-26] MEDS: 0.9% Normal Saline (1000mL) 1,000 ML 1000 ML IV (18:17)
[2023-05-26 18:32] LABS: ALB/GLOB Ratio 0.9 RATIO (0.9-2.4); AST(SGOT) 31 U/L (15-37); Alanine Aminotransfer ALT/SGPT 32 U/L (16-61); Albumin, Serum 3.5 g/dL (3.2-5.0); Alkaline Phosphatase 142 U/L (45-117); Anion Gap 6 (5-15); BUN 21 mg/dL (7-18); BUN/Creat Ratio 11.9 RATIO (10-20); Calcium,Total 8.5 mg/dL (8.5-10.1); Chloride 102 mmol/L (98-107); Creatinine, Serum 1.77 mg/dL (0.70-1.30); EST Glomerular Filtration Rate 39 mL/min (>60); Est Glom Filt Rate - Afr Amer 47 mL/min (>60); Estimated Creatinine Clearance 30.36 ml/min; Globulin 3.8 g/dL (2.2-4.2); Glucose 106 mg/dL (74-106); Potassium 3.6 mmol/L (3.5-5.1); Protein, Total 7.3 g/dL (6.4-8.2); Sodium Level 137 mmol/L (136-145)
--- OUTSIDE RECORDS SUMMARY | 2023-05-26 18:50 | XMS RPT_ITS | CCD ---
Author Name Unknown Address [id number] [place] [address] Organization [facility] Care Team Providers Care Hide Splitter Name Role Phone Chelsy Reis Unavailable Karen RIVERA, Annalisa Maradiaga Unavailable Unavailable Chelsy Reis Unavailable Allergies Allergy Classification Reported Allergen(s) Allergy Type Date of Onset Reaction(s) Facility (4 sources) codeine; Translations: [CODEINE] drug allergy 02-20-2012 [facility] Work Phone: Medications Completed/Discontinued Medications Medication Drug Class(es) Dates Sig (Normalized) Sig (Original) OXYCODONE-ACETAMIN OPHEN (6 sources) Opioid Agonist Start: 11-05-2014 End: 11-09-2014 take 1-2 tablets by mouth every four hours as needed PERCOCET 5-325 MG TABS 1-2 tablets by mouth every 4 hours as needed OXYCODONE-ACETAMINO PHEN [id number] Annalisa Jones RN Problems Active Problems Problem Classification Problem Date Documented Da te Episodic/Chronic Cardiac dysrhythmias (8 sources) Paroxysmal atrial fibrillation; Translations: [Persistent atrial fibrillation] Onset: 05-26-2014 05-26-2014 Chronic Conduction disorders (6 sources) Left anterior fascicular block; Translations: [Right bundle branch block] Onset: 01-14-2017 01-14-2017 Chronic Diabetes mellitus without complication (3 sources) Diabetes mellitus; Translations: [Type 2 diabetes mellitus without complications] Onset: 05-25-2014 05-25-2014 Chronic Disorders of lipid metabolism (3 sources) Hyperlipidemia; Translations: [Hyperlipidemia, unspecified] Onset: 05-31-2014 05-31-2014 Chronic Essential hypertension (3 sources) Hypertensive disorder; Translations: [Essential (primary) hypertension] Onset: 05-25-2014 05-25-2014 Chronic Other nutritional; endocrine; and metabolic disorders (8 sources) Body mass index (BMI) 30.0-30.9, adult; Translations: [Body mass index (BMI) 31.0-31.9, adult] Onset: 05-26-2014 Resolved: 11-23-2015 07-06-2014 Chronic Other nutritional; endocrine; and metabolic disorders (1 source) Body mass index (BMI) 31.0-31.9, adult; Translations: [Body mass index (BMI) 31.0-31.9, adult] Onset: 05-26-2014 05-26-2014 Chronic Unclassified (1 source) Long-term drug therapy; Translations: [Long-term (current) use of other medications] Onset: 05-31-2014 05-31-2014 Past or Other Problems Problem Classification Problem Date Documented Date Episodic/Chronic Cardiac dysrhythmias (3 sources) Tachycardia, unspecified; Translations: [Tachycardia, unspecified] Onset: 05-25-2014 05-25-2014 Episodic Other aftercare (2 sources) Long-term (current) use of other medications; Translations: [Long-term (current) use of other medications] Onset: 05-31-2014 05-31-2014 Episodic Other connective tissue disease (5 sources) Ganglion, unspecified site; Translations: [Pain in unspecified hand] Onset: 12-30-2013 12-30-2013 Episodic Other connective tissue disease (1 source) Pain in unspecified hand; Translations: [Pain in unspecified hand] Onset: 12-30-2013 12-30-2013 Episodic Other lower respiratory disease (3 sources) Dyspnea; Translations: [Shortness of breath] Onset: 05-25-2014 05-25-2014 Episodic Other nutritional; endocrine; and metabolic disorders (5 sources) Body mass index (BMI) 28.0-28.9, adult; Translations: [Body mass index (BMI) 29.0-29.9, adult] Onset: 11-09-2014 11-23-2015 Episodic Other nutritional; endocrine; and metabolic disorders (1 source) Body mass index (BMI) 29.0-29.9, adult; Translations: [Body mass index (BMI) 29.0-29.9, adult] Onset: 11-09-2014 11-09-2014 Episodic Unclassified (4 sources) Preoperative cardiovascular examination ; Translations: [Encounter for preprocedural cardiovascular examination] Onset: 09-28-2014 Resolved: 05-25-2016 09-28-2014 Results Test Name Value Interpretation Reference Range Facil ity Vital Signs Date Time Vital Sign Value Performing Clinician Saul de la rosa 01-15-2017 14:04-0400 BMI (Body Mass Index) 30.8 kg/m2 Chelsy [facility] Work Phone: 01-15-2017 14:04-0400 BP Diastolic 60 mm[Hg] Chelsy [facility] Work Phone: 01-15-2017 14:04-0400 BP Systolic 120 mm[Hg] [facility] Work Phone: 01-15-2017 14:04-0400 Height 176.53 cm [facility] Work Phone: 01-15-2017 14:04-0400 Pulse (Heart Rate) 56 /min Chelsy Reis [facility] Work Phone: 01-15-2017 14:04-0400 Respiratory Rate 20 /min Chelsy [facility] Work Phone: 01-15-2017 14:04-0400 Weight 95.98 kg [facility] Work Phone: 05-25-2016 08:04-0500 BMI (Body Mass Index) 30.27 kg/m2 Annalisa [facility] Work Phone: 05-25-2016 08:04-0500 BP Diastolic 70 mm[Hg] Annalisa Jones RN [facility] Work Phone: 05-25-2016 08:04-0500 BP Systolic 152 mm[Hg] Annalisa Jones RN [facility] Work Phone: 05-25-2016 08:04-0500 BSA (Body Surface Area) 2.11 m2 Annalisa Jones RN [facility] Work Phone: 05-25-2016 08:04-0500 Height 176.53 cm Ananlisa Jones RN [facility] Work Phone: 05-25-2016 08:04-0500 Pulse (Heart Rate) 70 /min Annalisa Jones RN [facility] Work Phone: 05-25-2016 08:04-0500 Respiratory Rate 18 /min Annalisa Jones RN [facility] Work Phone: 05-25-2016 08:04-0500 Weight 94.35 kg Annalisa Jones RN [facility] Work Phone: 09-28-2014 16:19-0400 Heart rate 65 /min Chelsy Reis [facility] Work Phone: Encounters Encounter Date Encounter Type Care Provider Facility Start: 05-16-2018 End: 05-16-2018 Patient encounter procedure [facility] Procedures Date Procedure Procedure Detail Performing Clinician Start: 01-15-2017 End: 01-15-2017 MACHINE ROOM OPERATOR Rodolfo Tobias MD Start: 01-15-2017 End: 01-15-2017 Follow Up Appt 1 year Rodolfo Tobias MD Start: 05-25-2016 End: 05-25-2016 Dietary management education, guidance, and counseling Chelsy Reis Start: 05-25-2016 End: 05-25-2016 Follow Up Appt 6 months Cordelia Magdaleno Start: 05-25-2016 End: 05-25-2016 JUAN CARLOS Tobias MD Start: 11-23-2015 End: 11-23-2015 KRYTSLE Bonilla PA-C Work Phone: Start: 11-23-2015 End: 11-23-2015 Follow Up Appt 6 months Muriel Bonilla PA-C Work Phone: Start: 05-31-2015 End: 05-31-2015 Follow Up Appt 6 months Cordelia Magdaleno Start: 05-31-2015 End: 05-31-2015 MMCordelia Tobias MD Start: 12-14-2014 End: 11-08-2016 *Hepatic Function Panel Cordelia Magdaleno Start: 12-14-2014 End: 11-08-2016 Lipid panel [AGGREGATE] Cordelia Magdaleno Start: 11-09-2014 End: 11-08-2015 MACHINE ROOM OPERATOR Muriel Bonilla PA-C Work Phone: Start: 11-09-2014 End: 11-10-2014 Documentation of current medications Muriel Bonilla PA-C Work Phone: Start: 11-09-2014 End: 11-08-2015 Follow Up Appt 6 months Muriel Bonilla PA-C Work Phone: Start: 09-28-2014 End: 09-29-2014 Documentation of current medications Rodolfo Tobias MD Start: 09-28-2014 End: 11-03-2014 Electrocardiogram, complete Rodolfo Tobias MD Start: 09-28-2014 End: 09-28-2014 Follow Up Appt 6 weeks Rodolfo Tobias MD Start: 09-28-2014 End: 09-28-2014 MMM Rodolfo Tobias MD Start: 09-28-2014 End: 09-29-2014 Pedal pulse taking Rodolfo Tobias MD Start: 09-28-2014 End: 05-25-2016 Preoperative cardiovascular examination PRE-OPERATIVE CARDIOVASCULAR EXAMINATION Chelsy Reis Start: 07-06-2014 End: 07-07-2014 Documentation of current medications Rodolfo Tobias MD Start: 07-06-2014 End: 07-07-2014 Pedal pulse taking Rodolfo Tobias MD Start: 05-26-2014 End: 11-03-2014 *BMP Rodolfo Tobias MD Start: 05-26-2014 End: 05-31-2014 *Hepatic Function Panel Cordelia Magdaleno Start: 05-26-2014 End: 05-26-2014 MACHINE ROOM OPERATOR Rodolfo Tobias MD Start: 05-26-2014 End: 11-03-2014 Echocardiography Rodolfo Tobias MD Start: 05-26-2014 End: 05-26-2014 Electrocardiogram, complete Rodolfo Tobias MD Start: 05-26-2014 End: 05-26-2014 Follow Up Appt 1 month Rodolfo Tobias MD Start: 05-26-2014 End: 05-31-2014 Lipid panel [AGGREGATE] Cordelia Magdaleno Start: 05-26-2014 End: 11-03-2014 Nuclear stress test -Lexiscan Rodolfo Tobias MD Start: 05-26-2014 End: 11-03-2014 Thyroid stimulating hormone (TSH) Rodolfo Tobias MD Start: 05-26-2014 End: 11-03-2014 Thyroxine (T4) Rodolfo Tobias MD Start: 12-30-2013 End: 11-23-2015 X-ray exam of finger(s) Tj Boswell Work Phone: Plan of Treatment Date Care Activity Detail Author Start: 01-16-2018 End: 01-16-2018 Appointment Appointment [facility] Work Phone: Start: 01-15-2017 End: 01-15-2017 Appointment Appointment [facility] Work Phone: Start: 01-15-2017 End: 01-15-2017 MACHINE ROOM OPERATOR MACHINE ROOM OPERATOR [facility] Work Phone: Start: 01-15-2017 End: 01-15-2017 Follow Up Appt 1 year Follow Up Appt 1 year [facility] Work Phone: Start: 05-25-2016 End: 05-25-2016 Follow Up Appt 6 months Follow Up Appt 6 months [facility] Work Phone: Start: 05-25-2016 End: 05-25-2016 MMM MMM [facility] Work Phone: Start: 11-23-2015 End: 11-23-2015 MACHINE ROOM OPERATOR MACHINE ROOM OPERATOR [facility] Work Phone: Start: 11-23-2015 End: 11-23-2015 Follow Up Appt 6 months Follow Up Appt 6 months [facility] Work Phone: Start: 05-31-2015 End: 05-31-2015 Follow Up Appt 6 months Follow Up Appt 6 months [facility] Work Phone: Start: 05-31-2015 End: 05-31-2015 MMM MMM [facility] Work Phone: Start: 12-14-2014 End: 11-08-2016 *Hepatic Function Panel *Hepatic Function Panel [facility] Work Phone: Start: 12-14-2014 End: 11-08-2016 Lipid panel [AGGREGATE] *Lipid Profile CC PCP [facility] Work Phone: Start: 11-09-2014 End: 11-08-2015 MACHINE ROOM OPERATOR MACHINE ROOM OPERATOR [facility] Work Phone: Start: 11-09-2014 End: 11-08-2015 Follow Up Appt 6 months Follow Up Appt 6 months [facility] Work Phone: Start: 09-28-2014 End: 11-03-2014 Electrocardiogram, complete EKG (In office) [facility] Work Phone: Start: 09-28-2014 End: 09-28-2014 Follow Up Appt 6 weeks Follow Up Appt 6 weeks [facility] Work Phone: Start: 09-28-2014 End: 09-28-2014 MMM MMM [facility] Work Phone: Start: 05-26-2014 End: 11-03-2014 *BMP *BMP [facility] Work Phone: Start: 05-26-2014 End: 05-31-2014 *Hepatic Function Panel *Hepatic Function Panel [employer] [facility] Work Phone: Start: 05-26-2014 End: 05-26-2014 MACHINE ROOM OPERATOR MACHINE ROOM OPERATOR [facility] Work Phone: Start: 05-26-2014 End: 05-26-2014 Echocardiography Echocardiogram (complete) [facility] Work Phone: Start: 05-26-2014 End: 05-26-2014 Electrocardiogram, complete EKG (In office) [employer] Work Phone: Start: 05-26-2014 End: 05-26-2014 Follow Up Appt 1 month Follow Up Appt 1 month [facility] Work Phone: Start: 05-26-2014 End: 05-31-2014 Lipid panel [AGGREGATE] *Lipid Profile CC PCP [facility] Work Phone: Start: 05-26-2014 End: 05-26-2014 Nuclear stress test -Lexiscan Nuclear stress test -Lexiscan [facility] Work Phone: Start: 05-26-2014 End: 11-03-2014 Thyroid stimulating hormone (TSH) *TSH [facility] Work Phone: Start: 05-26-2014 End: 11-03-2014 Thyroxine (T4) *T4 (Total) [facility] Work Phone: Start: 12-30-2013 End: 11-23-2015 X-ray exam of finger(s) X-Ray, Fingers [facility] Work Phone: Patient Education HYPERLIPIDEMIA [facility] Work Phone: Summary Purpose Family History No Family History Records Found Advance Directives No Advanced Directives Records Found Additional Source Comments (unrecognized sect ion and content) No Status Records Found INFORMATION SOURCE (unrecogn ized section and content) FOR RECORDS PERTAINING TO PATIENTS WHO ARE OR HAVE BEEN ENROLLED IN A CHEMICAL DEPENDENCY/SUBSTANCEABUSE PROGRAM, SOME INFORMATION MAY BE OMITTED. This clinical summary was aggregated from multiple sources. Caution should be exercised in using it in the provision of clinical care. This summary normalizes information from multiple sources, and as a consequence, information in this document may materially change the coding, format and clinical context of patient data. In addition, data may be omitted in some cases. CLINICAL DECISIONS SHOULD BE BASED ON THE PRIMARY CLINICAL RECORDS. [facility]. provides no warranty or guarantee of the accuracy or completeness of information in this document.
== END 2023-05-26 19:21 | disposition home or self-care (01) ==
PROVIDERS: Emergency Provider Emergency Medicine; PCP Family Medicine Geriatric Medicine; Visit Provider Emergency Medicine
DX: E86.0 Dehydration (principal); E11.22 Type 2 diabetes mellitus with diabetic chronic kidney disease; I48.0 Paroxysmal atrial fibrillation; N18.30 Chronic kidney disease, stage 3 unspecified; I12.9 Hypertensive chronic kidney disease with stage 1 through stage 4 chronic kidney disease, or unspecified chronic kidney disease; R53.1 Weakness; E78.5 Hyperlipidemia, unspecified; Z79.899 Other long term (current) drug therapy; Z79.84 Long term (current) use of oral hypoglycemic drugs; Z79.01 Long term (current) use of anticoagulants; Z90.49 Acquired absence of other specified parts of digestive tract
CPT/HCPCS: 71045; 80053; 85025; 93005; 99283; J7030; A4216

== ENCOUNTER 2023-07-07 11:15 | Emergency (ER) | payer MEDICARE, SELFPAY ==
[2023-07-07 11:16] VITALS: BP 217/90; PULSE 59; RESP 20; TEMP 36.8; O2SAT 98; BMI 29.8
--- NOTE | 2023-07-07 11:17 | ED.VIS.DYS ---
HPI History of Present Illness Chief Complaint: Shortness of Breath [facility] Medical History Atrial fibrillation Chronic renal insufficiency, stage III (moderate) Closed head injury Diverticula of colon Diverticulitis large intestine Diverticulosis Essential (primary) hypertension Fall Hyperlipidemia Hypertension Left ventricular diastolic dysfunction Longstanding persistent atrial fibrillation Non-rheumatic tricuspid valve insufficiency Non-smoker Nonrheumatic mitral (valve) insufficiency Obesity Obstructive sleep apnea Paroxysmal atrial fibrillation Right bundle branch block (RBBB) with left anterior fascicular block Sleep apnea Type 2 diabetes mellitus Home Medications omeprazole 20 mg capsule,delayed release 20 mg PO DAILY reflux 09/19/14 [History Last Taken 12/21/21] pravastatin 40 mg tablet 40 mg PO QHS cholesterol 09/19/14 [History Last Taken 12/21/21] cholecalciferol (vitamin D3) 25 mcg (1,000 unit) capsule 25 mcg PO DAILY vitamin 01/24/22 [History Last Taken Unknown] tamsulosin 0.4 mg capsule (Flomax) 0.4 mg PO QHS prostate 02/04/22 [History Last Taken Unknown] melatonin 5 mg tablet 5 mg PO HS PRN Insomnia 08/16/22 [History Last Taken Unknown] glimepiride 4 mg tablet 1 mg PO QAM diabetes 02/01/23 [History Last Taken Unknown] potassium chloride 20 mEq tablet,extended release 10 meq PO DAILY 02/01/23 [History Last Taken Unknown] apixaban 2.5 mg tablet 2.5 mg PO BID blood thinner #180 tabs 04/01/23 [Rx Last Taken Unknown] furosemide 40 mg tablet 40 mg PO Q OTHER DAY edema #90 tabs 07/05/23 [Rx Last Taken Unknown] metoprolol succinate 25 mg tablet,extended release 24 hr 25 mg PO QHS #30 tabs 07/05/23 [Rx Last Taken Unknown] metoprolol tartrate 25 mg tablet 25 mg PO BID #60 tabs 07/07/23 [Rx Last Taken Unknown] Allergy/AdvReac Type Severity Reaction Status Date / Time codeine AdvReac Other Verified 07/07/23 11:28 lisinopril AdvReac Other Verified 07/07/23 11:28 Family History Father CVA (cerebral vascular accident) Mother Diabetes Sister Heart disease PPM Surgical History H/O hemicolectomy History of appendectomy History of cataract surgery History of tonsillectomy Hx of cholecystectomy Social History Smoking Status: Never smoker alcohol intake: current EXAM Physical Exam Const Vital Signs: 07/07/23 11:16 07/07/23 11:37 07/07/23 11:39 Temperature 98.3 F Temperature Source Temporal Pulse Rate 59 L Respiratory Rate 20 H Respiratory Effort Short of Breath Respiratory Depth Normal Respiratory Pattern Normal Blood Pressure 217/90 H Blood Pressure Mean 132 Pulse Ox 98 Oxygen Delivery Method Room Air Room Air Room Air 07/07/23 13:18 07/07/23 16:43 Temperature 97 F L Temperature Source Pulse Rate 60 82 Respiratory Rate 16 18 Respiratory Effort Respiratory Depth Respiratory Pattern Blood Pressure 170/94 H 160/70 H Blood Pressure Mean 119 100 Pulse Ox 94 96 Oxygen Delivery Method Room Air [facility] MDM MDM Narrative Medical decision making narrative: HISTORY OF PRESENT ILLNESS: 87-year-old male presents with shortness of breath. Patient also endorses dizziness, diffuse weakness, chills and shortness of breath since this morning. Denies chest pain. The patient denies recent surgery in the last 4 weeks or immobilization in the last 3 days, denies previous diagnosis of DVT or PE, hemoptysis, unilateral leg swelling or malignancy with treatment the last 6 months or palliative. No estrogen use noted. Compliant with Eliquis. States he is diffusely weak. No focal weakness. Denies any vomiting. Denies any bleeding diathesis. REVIEW OF SYSTEMS: Pertinent positives: Shortness of breath, chills, diffuse weakness, dizziness Pertinent negatives: Chest pain, focal weakness PHYSICAL EXAM: Nursing triage notes reviewed, Vital signs reviewed Constitutional: please see mdm HENT: MMM Eyes: Pupils equal round and reactive to light, Extraocular muscles intact Neck: No stridor, no JVD, full neck ROM Lungs: Clear to auscultation, No wheezing or rales. No increased work of breathing, no conversational dyspnea, no accessory muscle use, no nasal flaring. No respiratory distress noted Heart: Regular rate and rhythm, No murmurs, No rubs and No gallops, 2+ distal pulses (radial, femoral, posterior tibial) in all extremities Abdomen: Soft, there is no tenderness, rigidity, rebound or guarding, no obvious peritoneal signs, no palpable pulsatile abdominal masses, no auscultated abdominal bruit : No CVAT Extremities: No edema Neuro: No focal neurological deficits, cranial nerves II through XII intact, 5/5 strength in all extremities. Intact sensation to light touch in all extremities, 2+ reflexes bilateral patella tendons. Normal gait. No ataxia. Negative hints exam. NIH of 0 Skin: No rash or lesions noted MEDICAL DECISION MAKING: Chief Complaint: Shortness of breath External records reviewed: Last echocardiogram from 2021 shows ejection fraction 55 to 60% Factors affecting care: Atrial fibrillation on Eliquis, hypertension, CHF, type 2 diabetes, CKD 3 Consults: Cardiothoracic surgery MDM Narrative: Patient was initially hypertensive, otherwise afebrile and nontoxic-appearing had slightly increased work of breathing but no conversational dyspnea no severe respiratory distress I considered the following differential diagnosis: CHF exacerbation, COVID, flu, RSV, pneumonia, anemia, arrhythmia, ACS, PE I considered pulm embolism however thought this was less likely given low risk Wells score presence of anticoagulation. I obtained a broad lab and imaging with further elucidate the etiology e of the patient's complaints I gave the patient his oral home blood pressure medicine to treat his initial hypertension ALL IMAGES (IF OBTAINED) HAVE BEEN PERSONALLY REVIEWED AND INTERPRETED BY MYSELF. EKG with ventricular paced rhythm, left axis deviation, no obvious ischemic changes, no significant changes from prior EKG on 05/26/2023 High-sensitivity troponin is negative, no evidence of myocardial ischemia BNP elevated consistent with volume overload increased ventricular stretch CBC with leukocytosis suggestive of systemic inflammation, no anemia or thrombocytopenia noted BMP without significant electrode abnormalities, no signs of metabolic acidosis or endorgan hypoperfusion with a normal anion gap, noted CKD COVID, flu and RSV test is negative high-sensitivity troponin is negative, no evidence of myocardial ischemiax2 Chest x-ray was read reviewed myself shows evidence of mild pulmonary edema The patient's initial lab and imaging evaluation did not yield an obvious cause of his shortness of breath and chills. There is no source of infection despite having a white blood cell count of 17,000. Given this uncertainty I did obtain a CT scan of his chest rule out PE and/or pneumonia. CTA of the chest was negative for any infectious findings. Negative for PE I do not suspect patient is having from a severe life-threatening infection. I do not suspect he suffering from sepsis. I suspect his presentation was secondary to uncontrolled hypertension that was was treated with home blood pressure medicine. He is appropriate for discharge home. Of note incidental finding of thoracic arctic aneurysm was discussed with the patient. Her most recent ACCF/AHA guidelines suggest acute surgery is not indicated for thoracic aneurysm less than 5.5 cm. Did reach out to cardiothoracic surgery at [facility] however I did not received a call back. Pt will follow with software engineer web applications for outpatient monitoring. The patient and/or family, caregivers express understanding. The patient and/or family, caregivers agrees with the plan. Shared decision making: I will have a discussion with the patient and or visitors regarding risk/benefits of further testing or admission. They will be made aware of of the risk/benefits inherent in this decision they will be given the opportunity to voice understanding. Total critical care time today provided was at least 0 minutes. This excludes separately billable procedures. Critical care time (if documented) is secondary to the patient having high probability of clinically significant/life threatening deterioration in the patient's condition which required my urgent intervention. Impression: 1. Poorly controlled hypertension 2. History of atrial fibrillation 3. Leukocytosis Dispo: Discharge home This note was generated with [employer] dictation software. It may contain incorrect words, spelling, and punctuation that were not noted in review of the chart prior to signing. Lab Data Labs: Laboratory Results - last 24 hr 07/07/23 07/07/23 07/07/23 11:21 11:43 13:21 WBC 17.7 H RBC 5.31 Hgb 16.5 Hct 48.1 MCV 90.6 MCH 31.1 MCHC 34.3 RDW Std Deviation 45.1 H RDW Coeff of Lisa 13.5 Plt Count 199 MPV 11.7 Immature Gran % (Auto) 0.600 Neut % (Auto) 88.7 H Lymph % (Auto) 2.9 L [place] % (Auto) 7.1 Eos % (Auto) 0.4 Baso % (Auto) 0.3 Absolute Neuts (auto) 15.7 H Absolute Lymphs (auto) 0.52 L Nucleated RBC % 0 Sodium 134 L Potassium 3.8 Chloride 99 Carbon Dioxide 29.0 Anion Gap 6 BUN 12 Creatinine 1.62 H Estim Creat Clear Calc 37.04 Est GFR (MDRD) Af Amer 52 L Est GFR (MDRD) Non-Af 43 L BUN/Creatinine Ratio 7.4 L Glucose 243 H Calcium 9.7 Troponin I High Sens 40 44 B-Natriuretic Peptide 332.6 H Urine Color Yellow Urine Clarity Clear Urine pH 6.5 Ur Specific [place] 1.010 Urine Protein 30 H Urine Glucose (UA) Normal Urine Ketones Negative Urine Occult Blood 10 H Urine Nitrite Negative Urine Bilirubin Negative Urine Urobilinogen Normal Ur Leukocyte Esterase Negative Urine RBC 0 SEEN Urine WBC 0 SEEN Ur Squamous Epith Cells 0 SEEN Urine Bacteria 0 SEEN Urine Mucus 0 SEEN Radiography Diagnostic Testing: Clinical Impression(s) from Imaging Studies Chest X-Ray 07/07/23 11:39 IMPRESSION: No acute pulmonary process Electronically Signed: Gopi Wolf MD at 12:50 EST Reading Location ID and State: [facility] / [place] , Service support , Chest CTA 07/07/23 13:41 IMPRESSION: No demonstrated PE or thoracic aortic dissection 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 No acute pulmonary process No suspicious adenopathy Degenerative bony changes Electronically Signed: Gopi Wolf MD at 14:44 EST , Discharge Plan Triage Chief Complaint: Shortness of Breath ED Provider: Ray Stuart Dx/Rx/DC Orders Instructions: ED Dyspnea Prescriptions: New metoprolol tartrate 25 mg tablet 25 mg PO BID Qty: 60 0RF No Action cholecalciferol (vitamin D3) 25 mcg (1,000 unit) capsule 25 mcg PO DAILY glimepiride 4 mg tablet 1 mg PO QAM Rx Instructions: administer with breakfast potassium chloride 20 mEq tablet extended release 10 meq PO DAILY pravastatin 40 MG tablet 40 mg PO QHS Patient Comments: CHOLESTEROL omeprazole 20 MG capsule 20 mg PO DAILY Patient Comments: ACID RELUX tamsulosin [Flomax] 0.4 mg Capsule 0.4 mg PO QHS melatonin 5 mg tablet 5 mg PO HS PRN (Reason: Insomnia) apixaban 2.5 mg tablet 2.5 mg PO BID Qty: 180 3RF Hold Instructions: Resume on 10/02/22. metoprolol succinate 25 mg tablet extended release 24 hr 25 mg PO QHS Qty: 30 12RF furosemide 40 mg tablet 40 mg PO Q OTHER DAY Qty: 90 3RF Rx Instructions: Hold if creatinine is more than 0.5 mg/dL above the baseline Primary Care Provider: Bernard Nugent Chi Referrals: Bernard Nugent Chi, MD [Primary Care Provider] - Activity Restrictions/Additional Instructions: Thank you for trusting us with your care today! Please take Tylenol (2 pills, 650 mg), ibuprofen (2 pills, 400 mg) every 6 hours as needed for pain and fever control. Please fill metoprolol and take as prescribed. Please return to the emergency department if your symptoms change or worsen. Please follow with your primary care physician for further outpatient evaluation and management. Please discuss with your primary care physician and/or software engineer web applications incidental finding of thoracic arctic aneurysm to obtain proper follow-up and observation Disposition Disposition: Home, Self Care Discharge Date/Time: 07/07/23 16:45
[2023-07-07 11:37] VITALS: O2SAT 97
--- NOTE | 2023-07-07 11:39 | EKG12_ITS ---
Test Reason : SOB/CP Blood Pressure : / mmHG Vent. Rate : 061 BPM Atrial Rate : 375 BPM P-R Int : 000 ms QRS Dur : 172 ms QT Int : 474 ms P-R-T Axes : 000 -76 099 degrees QTc Int : 477 ms Ventricular-paced rhythm Abnormal ECG Confirmed by JUNAID AZEVEDO, KEL ([id number]), department editor KEVIN WANG ([id number]) on 07/08/2023 10:20:20 AM Referred By: Confirmed By:KEL QUIROGA MD
--- NOTE | 2023-07-07 11:39 | RAD_ITS ---
STUDY: X-RAY CHEST REASON FOR EXAM: Male, 87 years old. SOB TECHNIQUE: Single AP portable view of the chest. COMPARISON: 05/26/2023 FINDINGS: Stable appearance of the left subclavian pacemaker, EKG leads overlie the chest The lungs are clear and expanded. There is no demonstrated pleural abnormality. Normal size heart. Normal mediastinum and tamra. Normal visualized pulmonary arteries. There is atherosclerotic calcification of the aortic arch with tortuosity. Normal visualized thoracic spine. Normal visualized ribs, clavicles, and shoulders. There is no demonstrated abnormality of the visualized soft tissue structures of the upper abdomen. RAD/Chest 1 View (Portable) IMPRESSION: No acute pulmonary process Electronically Signed: Gopi Wolf MD at 12:50 EST ,
[2023-07-07 11:59] LABS: Absolute Lymphocyte Count 0.52 X10^3/uL (0.83-4.51); Absolute Neutrophil Count 15.7 X10^3/uL (2.0-7.7); Basophil# 0.06 X10^3/uL; Basophil% 0.3 % (0-1); Eosinophil# 0.07 X10^3/uL; Eosinophils% 0.4 % (0-5); Hematocrit 48.1 % (40-54); Hemoglobin 16.5 g/dL (13.0-16.5); Lymphocyte # 0.52 X10^3/ul (0.83-4.51); Lymphocyte % 2.9 % (19-41); Mean Corp Hgb Conc 34.3 g/dL (32-36); Mean Corpuscular Hgb 31.1 pg (27.0-32.0); Mean Corpuscular Volume 90.6 fL (80-94); Mean Platelet Vol. 11.7 fl (6.2-12.0); Monocyte# 1.25 X10^3/uL; Monocyte% 7.1 % (0-10); NRBC Flagged by Analyzer 0 % (0-5); Neutrophil # 15.65 X10^3/uL (2.7-7.7); Neutrophil % 88.7 % (47-70); POSITIVE DIFFERENTIAL YES; Platelet Count 199 K/mm3 (150-450); RBC Distribution Width CV 13.5 % (11.6-14.6); RBC Distribution Width SD 45.1 fl (35.1-43.9); Red Blood Count 5.31 M/mm3 (4.6-6.2); White Blood Count 17.7 K/mm3 (4.4-11.0)
[2023-07-07] MEDS: Metoprolol Tartrate 25 MG Tablet PO (12:16)
--- OUTSIDE RECORDS SUMMARY | 2023-07-07 12:17 | XMS RPT_ITS | CCD ---
Author Name Unknown Address [address] [place] [address] Organization [facility] Care Team Providers Care Conference Coordinator Name Role Phone Chelsy Reis Unavailable Karen RIVERA, Annalisa Maradiaga Unavailable Unavailable Chelsy Reis Unavailable Allergies Allergy Classification Reported Allergen(s) Allergy Type Date of Onset Reaction(s) Facility (4 sources) codeine; Translations: [CODEINE] drug [facility]-[address] [facility]: Medications Completed/Discontinued Medications Medication Drug Class(es) Dates Sig (Normalized) Sig (Original) OXYCODONE-ACETAMIN OPHEN (6 sources) Opioid Agonist Start: 11-05-2014 End: 11-09-2014 take 1-2 tablets by mouth every four hours as needed PERCOCET 5-325 MG TABS 1-2 tablets by mouth every 4 hours as needed OXYCODONE-ACETAMINO PHEN [id number] Annalisa Jones RN Problems Active Problems Problem [...] (Body Mass Index) 30.8 kg/m2 Chelsy [facility] Work Phone: 01-15-2017 14:04-0400 BP Diastolic 60 mm[Hg] Chelsy [facility] Work Phone: 01-15-2017 14:04-0400 BP Systolic 120 mm[Hg] [facility] Work Phone: 01-15-2017 14:04-0400 Height 176.53 cm [facility] Work Phone: 01-15-2017 14:04-0400 Pulse (Heart Rate) 56 /min Chelsy Reis [facility] Work Phone: 01-15-2017 14:04-0400 Respiratory Rate 20 /min Chelsy [facility] Work Phone: 01-15-2017 14:04-0400 Weight 95.98 kg [facility] Work Phone: 05-25-2016 08:04-0500 BMI (Body Mass Index) 30.27 kg/m2 Annalisa Moses [facility] Work Phone: 05-25-2016 08:04-0500 BP Diastolic 70 mm[Hg] Annalisa Jones RN [facility] Work Phone: 05-25-2016 08:04-0500 BP Systolic 152 mm[Hg] Annalisa Jones RN [facility] Work Phone: 05-25-2016 08:04-0500 BSA (Body Surface Area) 2.11 m2 Annalisa Jones RN [facility] Work Phone: 05-25-2016 08:04-0500 Height 176.53 cm Annalisa Jones RN [facility] Work Phone: 05-25-2016 08:04-0500 Pulse (Heart Rate) 70 /min Annalisa Jones RN [facility] Work Phone: 05-25-2016 08:04-0500 Respiratory Rate 18 /min Annalisa Jones RN [facility] Work Phone: 05-25-2016 08:04-0500 Weight 94.35 kg Annalisa Jones RN [facility] Work Phone: 09-28-2014 16:19-0400 Heart rate 65 /min Chelsy Reis [facility] Work Phone: Encounters Encounter Date Encounter Type Care Provider Facility Start: 05-16-2018 End: 05-16-2018 Patient encounter procedure [facility] Procedures Date Procedure Procedure Detail Performing Clinician Start: 01-15-2017 End: 01-15-2017 RN UROLOGY Rodolfo Tobias MD Start: 01-15-2017 End: 01-15-2017 Follow Up Appt 1 year Rodolfo Tobias MD Start: 05-25-2016 End: 05-25-2016 Dietary management education, guidance, and counseling Chelsy Reis Start: 05-25-2016 End: 05-25-2016 Follow Up Appt 6 months Cordelia Magdaleno Start: 05-25-2016 End: 05-25-2016 JUAN CARLOS Tobias MD Start: 11-23-2015 End: 11-23-2015 KRYSTLE Bonilla PA-C Work Phone: Start: 11-23-2015 End: 11-23-2015 Follow Up Appt 6 months Muriel Bonilla PA-C Work Phone: Start: 05-31-2015 End: 05-31-2015 Follow Up Appt 6 months Cordelia Magdaleno Start: 05-31-2015 End: 05-31-2015 MMCordelia Tobias MD Start: 12-14-2014 End: 11-08-2016 *Hepatic Function Panel Cordelia Magdaleno Start: 12-14-2014 End: 11-08-2016 Lipid panel [AGGREGATE] Cordelia Magdaleno Start: 11-09-2014 End: 11-08-2015 RN UROLOGY Muriel Bonilla PA-C Work Phone: Start: 11-09-2014 [...] Panel Cordelia Magdaleno Start: 05-26-2014 End: 05-26-2014 RN UROLOGY Rodolfo Tobias MD Start: 05-26-2014 End: 11-03-2014 [...] Group Work Phone: Start: 01-15-2017 End: 01-15-2017 RN UROLOGY RN UROLOGY [facility] Work Phone: Start: 01-15-2017 End: 01-15-2017 Follow Up Appt 1 year Follow Up Appt 1 year [facility] Work Phone: Start: 05-25-2016 End: 05-25-2016 Follow Up Appt 6 months Follow Up Appt 6 months [facility] Work Phone: Start: 05-25-2016 End: 05-25-2016 MMM MMM [facility] Work Phone: Start: 11-23-2015 End: 11-23-2015 RN UROLOGY RN UROLOGY [facility] Work Phone: Start: 11-23-2015 End: 11-23-2015 Follow Up Appt 6 months Follow Up Appt 6 months [facility] Work Phone: Start: 05-31-2015 End: 05-31-2015 Follow Up Appt 6 months Follow Up Appt 6 months [facility] Work Phone: Start: 05-31-2015 End: 05-31-2015 MMM MMM [facility] Work Phone: Start: 12-14-2014 End: 11-08-2016 *Hepatic Function Panel *Hepatic Function Panel [facility] Work Phone: Start: 12-14-2014 End: 11-08-2016 Lipid panel [AGGREGATE] *Lipid Profile CC PCP [facility] Work Phone: Start: 11-09-2014 End: 11-08-2015 RN UROLOGY RN UROLOGY [facility] Work Phone: Start: 11-09-2014 End: 11-08-2015 Follow Up Appt 6 months Follow Up Appt 6 months [facility] Work Phone: Start: 09-28-2014 End: 11-03-2014 Electrocardiogram, complete EKG (In office) [facility] Work Phone: Start: 09-28-2014 End: 09-28-2014 Follow Up Appt 6 weeks Follow Up Appt 6 weeks [facility] Work Phone: Start: 09-28-2014 End: 09-28-2014 MMM MMM [facility] Work Phone: Start: 05-26-2014 End: 11-03-2014 *BMP *BMP [facility] [facility] Work Phone: Start: 05-26-2014 End: 05-31-2014 *Hepatic Function Panel *Hepatic Function Panel [employer] [facility] Work Phone: Start: 05-26-2014 End: 05-26-2014 RN UROLOGY RN UROLOGY [facility] Work Phone: Start: 05-26-2014 End: 05-26-2014 Echocardiography Echocardiogram (complete) [facility] [facility] Work Phone: Start: 05-26-2014 End: 05-26-2014 Electrocardiogram, complete EKG (In office) [employer] [facility] Work Phone: Start: 05-26-2014 End: 05-26-2014 Follow Up Appt 1 month Follow Up Appt 1 month [facility] [facility] Work Phone: Start: 05-26-2014 End: 05-31-2014 Lipid panel [AGGREGATE] *Lipid Profile CC PCP [facility] Work Phone: Start: 05-26-2014 End: 05-26-2014 Nuclear stress test -Lexiscan Nuclear stress test -Lexiscan [facility] Work Phone: Start: 05-26-2014 End: 11-03-2014 Thyroid stimulating hormone (TSH) *TSH [facility] Work Phone: Start: 05-26-2014 End: 11-03-2014 Thyroxine (T4) *T4 (Total) [facility] Work Phone: Start: 12-30-2013 End: 11-23-2015 X-ray exam of finger(s) X-Ray, Fingers [employer] Work Phone: Patient Education HYPERLIPIDEMIA [facility] Work Phone: Summary Purpose Family History No [...] BE BASED ON THE PRIMARY CLINICAL RECORDS. [facility] [email or web address] [facility]. provides no warranty or guarantee of the accuracy or completeness of information in this document.
[2023-07-07 12:18] LABS: Anion Gap 6 (5-15); BUN 12 mg/dL (7-18); BUN/Creat Ratio 7.4 RATIO (10-20); Calcium,Total 9.7 mg/dL (8.5-10.1); Chloride 99 mmol/L (98-107); Creatinine, Serum 1.62 mg/dL (0.70-1.30); EST Glomerular Filtration Rate 43 mL/min (>60); Est Glom Filt Rate - Afr Amer 52 mL/min (>60); Estimated Creatinine Clearance 37.04 ml/min; Glucose 243 mg/dL (74-106); Potassium 3.8 mmol/L (3.5-5.1); Sodium Level 134 mmol/L (136-145); Troponin-I HS 40 pg/mL (3.0-78.0)
[2023-07-07 12:27] LABS: BNP,B-Type NATRIURETIC PEPTIDE 332.6 pg/mL (0-100)
[2023-07-07 13:18] VITALS: BP 170/94; PULSE 60; RESP 16; O2SAT 94
[2023-07-07 13:25] LABS: Bacteria 0 SEEN /hpf (None Seen); Mucous, Urine 0 SEEN /hpf (<or=2+); Red Blood Cells-Urine 0 SEEN /hpf (0-5); Squamous Epithelial Cells - UA 0 SEEN /hpf (0-5); White Blood Cells 0 SEEN /hpf (0-5)
[2023-07-07 13:32] LABS: Color, Urine Yellow (Yellow); Glucose, Dipstick Normal (Normal); Ketone-Dipstick Negative (Negative); Leukocyte Esterase-Dipstick Negative /ul (Negative); Nitrite-Dipstick Negative (Negative); Occult Blood-Urine 10 /ul (Negative); Protein-Dipstick 30 mg/dl (Negative); Urine Bilirubin Dipstick Negative (Negative); Urine Clarity Clear (Clear); Urine Urobilinogen Normal (Normal); Urine pH 6.5 (5.0 - 8.0)
[2023-07-07 13:41] VITALS: O2SAT 96
--- NOTE | 2023-07-07 13:41 | CT_ITS ---
STUDY: CTA CHEST REASON FOR EXAM: Male, 87 years old. Atypical chest pain, diaphoresis RADIATION DOSAGE (If Supplied By Facility): CTDIvol = ( 11.69 ) mGy, DLP = ( 497.99 ) mGycm TECHNIQUE: The examination was performed with the intravenous administration of IV 100mL Isovue-370. Post-processing of the angiographic images was performed, with multiplanar reformation and 3D reconstruction. Individualized dose optimization techniques were used for this CT. COMPARISON: None. FINDINGS: Normal enhancement of the main pulmonary artery and right and left pulmonary arteries. Normal enhancement of the bilateral peripheral pulmonary arteries. There is no demonstrated pulmonary embolism. There is aneurysmal dilatation of the ascending aorta. The transverse diameter of the ascending aorta measures 41 mm''s. There is no demonstrated aortic dissection. Normal heart and pericardium. There are calcifications of the coronary arteries. No suspicious axillary, mediastinal, or perihilar adenopathy Normal visualized trachea and bronchi. The lungs are well expanded. Normal pulmonary parenchyma. Normal pleura. Normal chest wall structures. There are degenerative changes of thoracic spine, with anterior bridging spurs.. Limited cuts through the upper abdomen show previous cholecystectomy CT/CTA Chest W/WO Contrast IMPRESSION: No demonstrated PE or thoracic aortic dissection 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 No acute pulmonary process No suspicious adenopathy Degenerative bony changes Electronically Signed: Gopi Wolf MD at 14:44 EST ,
[2023-07-07 13:44] VITALS: O2SAT 95
[2023-07-07 13:55] LABS: Troponin-I HS 44 pg/mL (3.0-78.0)
[2023-07-07 16:43] VITALS: BP 160/70; PULSE 82; RESP 18; TEMP 36.1; O2SAT 96
== END 2023-07-07 16:45 | disposition home or self-care (01) ==
PROVIDERS: Emergency Provider Emergency Medicine; PCP Family Medicine Geriatric Medicine; Visit Provider Emergency Medicine
DX: R06.02 Shortness of breath (principal); I13.0 Hypertensive heart and chronic kidney disease with heart failure and stage 1 through stage 4 chronic kidney disease, or unspecified chronic kidney disease; I50.9 Heart failure, unspecified; E11.22 Type 2 diabetes mellitus with diabetic chronic kidney disease; I48.11 Longstanding persistent atrial fibrillation; N18.30 Chronic kidney disease, stage 3 unspecified; D72.829 Elevated white blood cell count, unspecified; E78.5 Hyperlipidemia, unspecified; Z79.899 Other long term (current) drug therapy; Z79.01 Long term (current) use of anticoagulants; Z90.49 Acquired absence of other specified parts of digestive tract; Z79.84 Long term (current) use of oral hypoglycemic drugs
CPT/HCPCS: 71045; 71275; 80048; 81001; 83880; 84484; 85025; 87631; 93005; 99283; Q9967; A4216

== ENCOUNTER → 2023-07-24 | Outpatient (CLI) | payer MEDICARE, SELFPAY ==
--- OUTSIDE RECORDS SUMMARY | 2023-07-24 10:42 | XMS RPT_ITS | CCD ---
Author Name Unknown Address [id number] [place] [address] Organization [facility] Care Team Providers Care Doughnut Dough Mixer Name Role Phone Chelsy Reis Unavailable Karen RIVERA, Annalisa Maradiaga Unavailable Unavailable Chelsy Reis Unavailable Allergies Allergy Classification Reported Allergen(s) Allergy Type Date of Onset Reaction(s) Facility (4 sources) codeine; Translations: [CODEINE] [facility]: Medications Completed/Discontinued Medications Medication Drug Class(es) Dates Sig (Normalized) Sig (Original) OXYCODONE-ACETAMIN OPHEN (6 sources) Opioid Agonist Start: 11-05-2014 End: 11-09-2014 take 1-2 tablets by mouth every four hours as needed PERCOCET 5-325 MG TABS 1-2 tablets by mouth every 4 hours as needed OXYCODONE-ACETAMINO PHEN [id number] Annalisa Jones RN Problems Active Problems Problem [...] (Body Mass Index) 30.8 kg/m2 Chelsy Moses [facility] Work Phone: 01-15-2017 14:04-0400 BP [...] (Body Mass Index) 30.27 kg/m2 Annalisa Moses [facility] Work Phone: 05-25-2016 08:04-0500 BP Diastolic 70 mm[Hg] Annalisa Jones RN [facility] Work Phone: 05-25-2016 08:04-0500 BP Systolic 152 mm[Hg] Annalisa Jones RN [facility] Work Phone: 05-25-2016 08:04-0500 BSA (Body Surface Area) 2.11 m2 Annalisa Jones RN [facility] Work Phone: 05-25-2016 08:04-0500 Height 176.53 cm Annalisa Jones RN [facility] Work Phone: 05-25-2016 08:04-0500 Pulse (Heart Rate) 70 /min Annalisa Jones RN [facility] Work Phone: 05-25-2016 08:04-0500 Respiratory Rate 18 /min Annalisa Jones RN [facility] Work Phone: 05-25-2016 08:04-0500 Weight 94.35 kg Annalisa Jones RN [facility] Work Phone: 09-28-2014 16:19-0400 Heart rate 65 /min Chelsy Reis [facility] Work Phone: Encounters Encounter Date Encounter Type Care Provider Facility Start: 05-16-2018 End: 05-16-2018 Patient encounter procedure [facility] Procedures Date Procedure Procedure Detail Performing Clinician Start: 01-15-2017 End: 01-15-2017 SALES DEVELOPMENT MANAGER Rodolfo Tobias MD Start: 01-15-2017 End: 01-15-2017 [...] [AGGREGATE] Cordelia Magdaleno Start: 11-09-2014 End: 11-08-2015 SALES DEVELOPMENT MANAGER Muriel Bonilla PA-C Work Phone: Start: 11-09-2014 [...] Panel Cordelia Magdaleno Start: 05-26-2014 End: 05-26-2014 SALES DEVELOPMENT MANAGER Rodolfo Tobias MD Start: 05-26-2014 End: 11-03-2014 Echocardiography Rodolfo Tobias MD Start: 05-26-2014 End: 05-26-2014 Electrocardiogram, complete Rodolfo Tobias MD Start: 05-26-2014 End: 05-26-2014 Follow Up Appt 1 month Rodolfo Tobias MD Start: 05-26-2014 End: 05-31-2014 Lipid panel [AGGREGATE] Cordelia Magdaleno Start: 05-26-2014 End: 11-03-2014 Nuclear stress test -Lexiscan Rodoflo Tobias MD Start: 05-26-2014 End: 11-03-2014 Thyroid [...] Group Work Phone: Start: 01-15-2017 End: 01-15-2017 SALES DEVELOPMENT MANAGER SALES DEVELOPMENT MANAGER [facility] Work Phone: Start: 01-15-2017 End: 01-15-2017 Follow Up Appt 1 year Follow Up Appt 1 year [facility] Work Phone: Start: 05-25-2016 End: 05-25-2016 Follow Up Appt 6 months Follow Up Appt 6 months [facility] Work Phone: Start: 05-25-2016 End: 05-25-2016 MMM MMM [facility] Work Phone: Start: 11-23-2015 End: 11-23-2015 SALES DEVELOPMENT MANAGER SALES DEVELOPMENT MANAGER [facility] Work Phone: Start: 11-23-2015 [...] 11-08-2016 *Hepatic Function Panel *Hepatic Function Panel [facility] Work Phone: Start: 12-14-2014 End: 11-08-2016 Lipid panel [AGGREGATE] *Lipid Profile CC PCP [facility] Work Phone: Start: 11-09-2014 End: 11-08-2015 SALES DEVELOPMENT MANAGER SALES DEVELOPMENT MANAGER [facility] Work Phone: Start: 11-09-2014 End: 11-08-2015 Follow Up Appt 6 months Follow Up Appt 6 months [facility] Work Phone: Start: 09-28-2014 End: 11-03-2014 Electrocardiogram, complete EKG (In office) [facility] Work Phone: Start: 09-28-2014 End: 09-28-2014 Follow Up Appt 6 weeks Follow Up Appt 6 weeks [facility] Work Phone: Start: 09-28-2014 End: 09-28-2014 MMM MMM [facility] Work Phone: Start: 05-26-2014 End: 11-03-2014 *BMP *BMP [facility] Work Phone: Start: 05-26-2014 End: 05-31-2014 *Hepatic Function Panel *Hepatic Function Panel [facility] Work Phone: Start: 05-26-2014 End: 05-26-2014 SALES DEVELOPMENT MANAGER SALES DEVELOPMENT MANAGER [facility] Work Phone: Start: 05-26-2014 End: 05-26-2014 Echocardiography Echocardiogram (complete) [facility] Work Phone: Start: 05-26-2014 End: 05-26-2014 Electrocardiogram, complete EKG (In office) [facility] Work Phone: Start: 05-26-2014 End: 05-26-2014 Follow Up Appt 1 month Follow Up Appt 1 month [facility] Work Phone: Start: 05-26-2014 End: 05-31-2014 Lipid panel [AGGREGATE] *Lipid Profile CC PCP [facility] Work Phone: Start: 05-26-2014 End: 05-26-2014 Nuclear stress test -Lexiscan Nuclear stress test -Lexiscan [facility] Work Phone: Start: 05-26-2014 End: 11-03-2014 Thyroid stimulating hormone (TSH) *TSH [facility] Work Phone: Start: 05-26-2014 End: 11-03-2014 Thyroxine (T4) *T4 (Total) [facility] Work Phone: Start: 12-30-2013 End: 11-23-2015 X-ray exam of finger(s) X-Ray, Fingers [facility] Work Phone: Patient Education HYPERLIPIDEMIA [facility] Work Phone: Summary Purpose Family History No [...] BASED ON THE PRIMARY CLINICAL RECORDS. [facility] [employer] [facility]. provides no warranty or guarantee of the accuracy or completeness of information in this document.
[2023-07-24 11:26] LABS: Absolute Lymphocyte Count 1.16 X10^3/uL (0.83-4.51); Absolute Neutrophil Count 6.9 X10^3/uL (2.0-7.7); Basophil# 0.04 X10^3/uL; Basophil% 0.4 % (0-1); Eosinophil# 0.27 X10^3/uL; Hematocrit 42.7 % (40-54); Hemoglobin 14.6 g/dL (13.0-16.5); Lymphocyte # 1.16 X10^3/ul (0.83-4.51); Lymphocyte % 12.7 % (19-41); Mean Corp Hgb Conc 34.2 g/dL (32-36); Mean Corpuscular Hgb 30.9 pg (27.0-32.0); Mean Corpuscular Volume 90.3 fL (80-94); Mean Platelet Vol. 11.6 fl (6.2-12.0); Monocyte# 0.74 X10^3/uL; Monocyte% 8.1 % (0-10); NRBC Flagged by Analyzer 0 % (0-5); Neutrophil # 6.86 X10^3/uL (2.7-7.7); Platelet Count 241 K/mm3 (150-450); RBC Distribution Width CV 13.2 % (11.6-14.6); RBC Distribution Width SD 44.2 fl (35.1-43.9); Red Blood Count 4.73 M/mm3 (4.6-6.2); White Blood Count 9.1 K/mm3 (4.4-11.0)
[2023-07-24 12:05] LABS: Hemoglobin A1c 6.2 % (3.8-5.6)
[2023-07-24 12:17] LABS: AST(SGOT) 15 U/L (15-37); Alanine Aminotransfer ALT/SGPT 20 U/L (16-61); Albumin, Serum 3.3 g/dL (3.2-5.0); Alkaline Phosphatase 126 U/L (45-117); Anion Gap 7 (5-15); BUN 16 mg/dL (7-18); BUN/Creat Ratio 9.4 RATIO (10-20); Calcium,Total 8.8 mg/dL (8.5-10.1); Chloride 103 mmol/L (98-107); Cholesterol 131 mg/dL (200); EST Glomerular Filtration Rate 41 mL/min (>60); Est Glom Filt Rate - Afr Amer 49 mL/min (>60); Globulin 3.4 g/dL (2.2-4.2); Glucose 191 mg/dL (74-106); High Density Lipoprotein 53 mg/dL; Potassium 4.2 mmol/L (3.5-5.1); Protein, Total 6.7 g/dL (6.4-8.2); Sodium Level 135 mmol/L (136-145); Thyroid Stim Hormone (TSH) 6.68 uIU/mL (0.358-3.74); Triglycerides 130 mg/dL; Very Low Density Lipoprotein 26 mg/dL (5-40)
== END | disposition home or self-care (01) ==
LOC: POLAB3 10:12
PROVIDERS: PCP Family Medicine Geriatric Medicine; Visit Provider Family Medicine Geriatric Medicine
DX: E11.65 Type 2 diabetes mellitus with hyperglycemia (principal); I10 Essential (primary) hypertension; E55.9 Vitamin D deficiency, unspecified; E78.5 Hyperlipidemia, unspecified
CPT/HCPCS: 36415; 80053; 80061; 82306; 83036; 84443; 85025

== ENCOUNTER → 2023-07-26 | Outpatient (CLI) | payer MEDICARE, SELFPAY ==
--- NOTE | 2023-07-26 10:02 | VDLE_ITS ---
Reason For Study: PVD/Edema RIGHT LEFT GSV is normal. GSV is normal. CFV is compressible, spontaneous, phasic, CFV is compressible, spontaneous, phasic, competent and demonstrates normal competent, and demonstrates normal augmentation. augmentation. FV is compressible, spontaneous, phasic, FV is compressible, spontaneous, phasic, competent and demonstrates normal competent and demonstrates normal augmentation. augmentation. POP V is compressible, spontaneous, phasic, POP V is compressible, spontaneous, phasic, competent and demonstrates normal competent and demonstrates normal augmentation. augmentation. T/P Trunk is compressible. T/P Trunk is compressible. PTV is compressible. PTV is compressible. RT PerV is compressible. LT PerV is compressible. Procedure This is a venous duplex using B-mode, color flow and spectral Doppler. Exam performed in department. The exam was diagnostic. VL/Venous Duplex US - Daren Extrem Interpretation Summary Deep veins of the bilateral lower extremities are patent and compressible segme ntally. There is no evidence of bilateral lower extremity deep vein thrombosis. The bilateral great saphenous veins appear patent and compressible segmentally. Ordering Physician: Roger Hunt Referring Physician: Bernard Nugent Chi Performed By: Vazquez Christopher RVT
--- NOTE | 2023-07-26 10:02 | ART_ITS ---
Reason For Study: PVD Procedure A bilateral lower extremity continuous wave Doppler with analog waveform analysis,segmental pressures,and ankle brachial indexes without exercise. Left Segmental Pressures Left brachial= 162mmHg. Left calf = 194mmHg. Left posterior tibial artery = 132mmHg. Left dorsalis pedis artery = 192mmHg. Left digit = 127 mmHg. The left posterior tibial artery waveforms are biphasic. The left dorsalis pedis waveforms are triphasic. Right Segmental Pressures Right brachial= 173mmHg. Right thigh = >254mmHg. Right calf = 141mmHg. Right posterior tibial artery = 141mmHg. Right dorsalis pedis artery = 82mmHg. Right digit = 93 mmHg. The right posterior tibial artery waveforms are biphasic. The right dorsalis pedis waveforms are biphasic. Indices The right ankle brachial index by the posterior tibial artery is 0.82. The right ankle brachial index by the dorsalis pedis is 0.47. The right digital-brachial index is 0.54. The left ankle brachial index by the posterior tibial artery is 0.76. The left ankle brachial index by the dorsalis pedis is 1.11. The left digital-brachial index is 0.73. VL/Lower Ext Art Exam w/o Exercis Interpretation Summary Right LORENE 0.82, moderate arterial insufficiency. Doppler/PVR waveforms and segm ental pressures reveal distal SFA/popliteal disease Left LORENE 1.11, normal. Doppler/PVR waveforms of the left leg normal at rest. TB I diminished, pedal/digit disease vs spasm. Ordering Physician: Roger Hunt Referring Physician: Bernard Nugent Chi Performed By: Vazquez Christopher RVT
== END | disposition home or self-care (01) ==
PROVIDERS: PCP Family Medicine Geriatric Medicine; Referring Provider Podiatrist; Visit Provider Podiatrist
DX: I73.89 Other specified peripheral vascular diseases (principal); M79.674 Pain in right toe(s); M79.675 Pain in left toe(s)
CPT/HCPCS: 93923; 93924; 93970

== ENCOUNTER → 2023-11-04 | Outpatient (CLI) | payer MEDICARE, SELFPAY ==
[2023-11-04 13:32] LABS: Albumin, Serum 3.5 g/dL (3.2-5.0); BUN 19 mg/dL (7-18); BUN/Creat Ratio 12.7 RATIO (10-20); Chloride 102 mmol/L (98-107); EST Glomerular Filtration Rate 47 mL/min (>60); Est Glom Filt Rate - Afr Amer 57 mL/min (>60); Glucose 140 mg/dL (74-106); Potassium 4.3 mmol/L (3.5-5.1); Sodium Level 136 mmol/L (136-145)
[2023-11-04 22:25] LABS: Microalbumin:Creatinine Ratio 540.6 mg/g CRE (<30 mg/g CRE)
== END | disposition home or self-care (01) ==
LOC: LAB 12:32
PROVIDERS: PCP Family Medicine Geriatric Medicine; Referring Provider Internal Medicine Nephrology; Visit Provider Internal Medicine Nephrology
DX: E11.22 Type 2 diabetes mellitus with diabetic chronic kidney disease (principal); E11.21 Type 2 diabetes mellitus with diabetic nephropathy; N18.31 Chronic kidney disease, stage 3a
CPT/HCPCS: 36415; 80069; 82043; 82570

== ENCOUNTER → 2024-01-24 | Outpatient (CLI) | payer MEDICARE, SELFPAY ==
[2024-01-24 11:57] LABS: Absolute Lymphocyte Count 1.05 X10^3/uL (0.83-4.51); Absolute Neutrophil Count 5.6 X10^3/uL (2.0-7.7); Basophil# 0.06 X10^3/uL; Basophil% 0.7 % (0-1); Eosinophil# 0.38 X10^3/uL; Eosinophils% 4.7 % (0-5); Hematocrit 40.8 % (40-54); Hemoglobin 13.6 g/dL (13.0-16.5); Lymphocyte # 1.05 X10^3/ul (0.83-4.51); Lymphocyte % 13.1 % (19-41); Mean Corp Hgb Conc 33.3 g/dL (32-36); Mean Corpuscular Hgb 29.4 pg (27.0-32.0); Mean Corpuscular Volume 88.3 fL (80-94); Mean Platelet Vol. 10.7 fl (6.2-12.0); Monocyte# 0.91 X10^3/uL; Monocyte% 11.3 % (0-10); NRBC Flagged by Analyzer 0 % (0-5); Neutrophil # 5.58 X10^3/uL (2.7-7.7); Neutrophil % 69.6 % (47-70); Platelet Count 171 K/mm3 (150-450); RBC Distribution Width CV 12.9 % (11.6-14.6); RBC Distribution Width SD 41.4 fl (35.1-43.9); Red Blood Count 4.62 M/mm3 (4.6-6.2)
[2024-01-24 12:28] LABS: Hemoglobin A1c 6.1 % (3.8-5.6)
[2024-01-24 12:37] LABS: Vitamin D,25 Hydroxy 33.6 ng/mL
[2024-01-24 12:40] LABS: ALB/GLOB Ratio 0.9 RATIO (0.9-2.4); AST(SGOT) 19 U/L (15-37); Alanine Aminotransfer ALT/SGPT 22 U/L (16-61); Albumin, Serum 3.3 g/dL (3.2-5.0); Alkaline Phosphatase 136 U/L (45-117); Anion Gap 7 (5-15); BUN 17 mg/dL (7-18); BUN/Creat Ratio 10.2 RATIO (10-20); Calcium,Total 8.6 mg/dL (8.5-10.1); Chloride 98 mmol/L (98-107); Cholesterol 113 mg/dL (200); Creatinine, Serum 1.67 mg/dL (0.70-1.30); EST Glomerular Filtration Rate 41 mL/min (>60); Est Glom Filt Rate - Afr Amer 50 mL/min (>60); Globulin 3.8 g/dL (2.2-4.2); Glucose 190 mg/dL (74-106); High Density Lipoprotein 56 mg/dL; Potassium 4.6 mmol/L (3.5-5.1); Protein, Total 7.1 g/dL (6.4-8.2); Sodium Level 132 mmol/L (136-145); Triglycerides 80 mg/dL; Very Low Density Lipoprotein 16 mg/dL (5-40)
== END | disposition home or self-care (01) ==
LOC: POLAB3 11:39
PROVIDERS: PCP Family Medicine Geriatric Medicine; Visit Provider Family Medicine Geriatric Medicine
DX: E78.5 Hyperlipidemia, unspecified (principal); E11.65 Type 2 diabetes mellitus with hyperglycemia; I10 Essential (primary) hypertension; E55.9 Vitamin D deficiency, unspecified
CPT/HCPCS: 36415; 80053; 80061; 82306; 83036; 84443; 85025

== ENCOUNTER 2024-02-20 12:32 | Outpatient (CLI) | payer MEDICARE, SELFPAY ==
[2024-02-20] MEDS: 0.9% Normal Saline (1000mL) 1,000 ML 999 ML IV (13:14)
[2024-02-20 13:15] VITALS: BP 164/80; PULSE 60; RESP 16; TEMP 35.9; O2SAT 98; BMI 31.4
[2024-02-20] MEDS: 0.9% NaCl Peripheral Flush Adult/Peds IV (13:16)
[2024-02-20 14:29] VITALS: BP 175/73; PULSE 67; RESP 16; TEMP 35.9; O2SAT 98
== END 2024-02-20 23:59 | disposition home or self-care (01) ==
LOC: MEDOUTP 12:33
PROVIDERS: PCP Family Medicine Geriatric Medicine; Referring Provider Family Medicine Geriatric Medicine; Visit Provider Family Medicine Geriatric Medicine
DX: E86.0 Dehydration (principal)
CPT/HCPCS: 96360; J7030; A4216

== ENCOUNTER → 2024-02-20 | Outpatient (CLI) | payer MEDICARE, SELFPAY ==
--- NOTE | 2024-02-20 12:10 | RAD_ITS ---
STUDY: X-RAY - ABDOMEN/PELVIS REASON FOR EXAM: Male, 88 years old. PAIN TECHNIQUE: AP supine and upright views of the abdomen and pelvis. COMPARISON: None. FINDINGS: Normal visualized lung bases. There is an unremarkable bowel gas pattern. There is no demonstrated free abdominal air. The visualized liver, spleen and kidneys are grossly normal in size and morphology. Normal soft tissue structures. Normal visualized osseous structures. RAD/Abd Inc Decub and/or Erect IMPRESSION: Normal x-ray examination of the abdomen and pelvis. Electronically Signed: Chirag Mckeon MD at 11:00 EDT ,
[2024-02-20 12:22] LABS: Bacteria 0 SEEN /hpf (None Seen); Mucous, Urine 0 SEEN /hpf (<or=2+); Squamous Epithelial Cells - UA 0 SEEN /hpf (0-5); White Blood Cells 0 SEEN /hpf (0-5)
[2024-02-20 12:33] LABS: Absolute Neutrophil Count 6.3 X10^3/uL (2.0-7.7); Basophil# 0.04 X10^3/uL; Basophil% 0.5 % (0-1); Color, Urine Straw (Yellow); Eosinophil# 0.02 X10^3/uL; Eosinophils% 0.3 % (0-5); Glucose, Dipstick Normal (Normal); Hematocrit 39.5 % (40-54); Hemoglobin 13.4 g/dL (13.0-16.5); Ketone-Dipstick Negative (Negative); Leukocyte Esterase-Dipstick Negative /ul (Negative); Lymphocyte % 8.9 % (19-41); Mean Corp Hgb Conc 33.9 g/dL (32-36); Mean Corpuscular Volume 85.5 fL (80-94); Monocyte# 0.83 X10^3/uL; Monocyte% 10.5 % (0-10); NRBC Flagged by Analyzer 0 % (0-5); Neutrophil # 6.26 X10^3/uL (2.7-7.7); Neutrophil % 79.3 % (47-70); Nitrite-Dipstick Negative (Negative); Occult Blood-Urine 10 /ul (Negative); Platelet Count 196 K/mm3 (150-450); Protein-Dipstick 30 mg/dl (Negative); RBC Distribution Width CV 13.4 % (11.6-14.6); RBC Distribution Width SD 41.8 fl (35.1-43.9); Red Blood Count 4.62 M/mm3 (4.6-6.2); Specific Gravity, Urine 1.005 (1.002-1.030); Urine Bilirubin Dipstick Negative (Negative); Urine Clarity Clear (Clear); Urine Urobilinogen Normal (Normal); White Blood Count 7.9 K/mm3 (4.4-11.0)
[2024-02-20 12:40] LABS: Red Blood Cells-Urine 5-10 SEEN /hpf (0-5)
[2024-02-20 13:01] LABS: AST(SGOT) 22 U/L (15-37); Alanine Aminotransfer ALT/SGPT 26 U/L (16-61); Albumin, Serum 3.5 g/dL (3.2-5.0); Alkaline Phosphatase 103 U/L (45-117); Anion Gap 5 (5-15); BUN 12 mg/dL (7-18); BUN/Creat Ratio 9.3 RATIO (10-20); Calcium,Total 8.7 mg/dL (8.5-10.1); Chloride 93 mmol/L (98-107); Creatinine, Serum 1.29 mg/dL (0.70-1.30); EST Glomerular Filtration Rate 56 mL/min (>60); Est Glom Filt Rate - Afr Amer 68 mL/min (>60); Globulin 3.4 g/dL (2.2-4.2); Glucose 162 mg/dL (74-106); Potassium 4.3 mmol/L (3.5-5.1); Protein, Total 6.9 g/dL (6.4-8.2); Sodium Level 126 mmol/L (136-145)
== END | disposition home or self-care (01) ==
PROVIDERS: PCP Family Medicine Geriatric Medicine; Referring Provider Family Medicine Geriatric Medicine; Visit Provider Family Medicine Geriatric Medicine
DX: I10 Essential (primary) hypertension (principal); N39.0 Urinary tract infection, site not specified; R10.9 Unspecified abdominal pain
CPT/HCPCS: 36415; 74019; 80053; 81001; 85025

== ENCOUNTER → 2024-02-21 | Outpatient (CLI) | payer MEDICARE, SELFPAY ==
[2024-02-21 11:46] LABS: Anion Gap 4 (5-15); BUN 12 mg/dL (7-18); Calcium,Total 8.5 mg/dL (8.5-10.1); Chloride 96 mmol/L (98-107); Creatinine, Serum 1.34 mg/dL (0.70-1.30); EST Glomerular Filtration Rate 53 mL/min (>60); Est Glom Filt Rate - Afr Amer 65 mL/min (>60); Glucose 173 mg/dL (74-106); Potassium 4.2 mmol/L (3.5-5.1); Sodium Level 128 mmol/L (136-145)
[2024-02-21 12:35] LABS: Urine Sodium 56 mmol/L (Not Establ.)
[2024-02-21 13:41] LABS: Osmolality, Serum 272 mOsm/KG (280-301); Osmolality, Urine 363 mOsm/KG
== END | disposition home or self-care (01) ==
LOC: POLAB3 11:04
PROVIDERS: PCP Family Medicine Geriatric Medicine; Visit Provider Family Medicine Geriatric Medicine
DX: E87.0 Hyperosmolality and hypernatremia (principal); I10 Essential (primary) hypertension
CPT/HCPCS: 36415; 80048; 83930; 83935; 84300

== ENCOUNTER → 2024-02-28 | Outpatient (CLI) | payer MEDICARE, SELFPAY ==
[2024-02-28 13:07] LABS: Anion Gap 5 (5-15); BUN 23 mg/dL (7-18); BUN/Creat Ratio 17.2 RATIO (10-20); Calcium,Total 8.7 mg/dL (8.5-10.1); Chloride 102 mmol/L (98-107); Creatinine, Serum 1.34 mg/dL (0.70-1.30); EST Glomerular Filtration Rate 53 mL/min (>60); Est Glom Filt Rate - Afr Amer 65 mL/min (>60); Glucose 104 mg/dL (74-106); Potassium 4.3 mmol/L (3.5-5.1); Sodium Level 132 mmol/L (136-145)
== END | disposition home or self-care (01) ==
LOC: LAB 12:05
PROVIDERS: PCP Family Medicine Geriatric Medicine; Referring Provider Family Medicine Geriatric Medicine; Visit Provider Family Medicine Geriatric Medicine
DX: E87.1 Hypo-osmolality and hyponatremia (principal)
CPT/HCPCS: 36415; 80048

== ENCOUNTER → 2024-03-09 | Outpatient (CLI) | payer MEDICARE, SELFPAY ==
[2024-03-09 15:18] LABS: Anion Gap 5 (5-15); BUN 24 mg/dL (7-18); BUN/Creat Ratio 16.9 RATIO (10-20); Calcium,Total 8.7 mg/dL (8.5-10.1); Chloride 106 mmol/L (98-107); Creatinine, Serum 1.42 mg/dL (0.70-1.30); EST Glomerular Filtration Rate 50 mL/min (>60); Est Glom Filt Rate - Afr Amer 61 mL/min (>60); Glucose 113 mg/dL (74-106); Potassium 4.7 mmol/L (3.5-5.1); Sodium Level 133 mmol/L (136-145)
== END | disposition home or self-care (01) ==
LOC: POLAB3 14:09
PROVIDERS: PCP Family Medicine Geriatric Medicine; Visit Provider Family Medicine Geriatric Medicine
DX: I10 Essential (primary) hypertension (principal)
CPT/HCPCS: 36415; 80048

== ENCOUNTER → 2024-04-22 | Outpatient (CLI) | payer MEDICARE, SELFPAY ==
[2024-04-22 13:30] LABS: Absolute Lymphocyte Count 1.01 X10^3/uL (0.83-4.51); Absolute Neutrophil Count 6.3 X10^3/uL (2.0-7.7); Basophil# 0.05 X10^3/uL; Basophil% 0.6 % (0-1); Eosinophil# 0.14 X10^3/uL; Eosinophils% 1.7 % (0-5); Hematocrit 41.1 % (40-54); Hemoglobin 13.8 g/dL (13.0-16.5); Lymphocyte # 1.01 X10^3/ul (0.83-4.51); Lymphocyte % 12.1 % (19-41); Mean Corp Hgb Conc 33.6 g/dL (32-36); Mean Corpuscular Hgb 30.2 pg (27.0-32.0); Mean Corpuscular Volume 89.9 fL (80-94); Mean Platelet Vol. 10.7 fl (6.2-12.0); Monocyte# 0.82 X10^3/uL; Monocyte% 9.8 % (0-10); NRBC Flagged by Analyzer 0 % (0-5); Neutrophil # 6.27 X10^3/uL (2.7-7.7); Platelet Count 195 K/mm3 (150-450); RBC Distribution Width CV 15.2 % (11.6-14.6); RBC Distribution Width SD 50.1 fl (35.1-43.9); Red Blood Count 4.57 M/mm3 (4.6-6.2); White Blood Count 8.4 K/mm3 (4.4-11.0)
[2024-04-22 14:01] LABS: Hemoglobin A1c 5.9 % (3.8-5.6)
[2024-04-22 14:03] LABS: AST(SGOT) 21 U/L (15-37); Alanine Aminotransfer ALT/SGPT 26 U/L (16-61); Albumin, Serum 3.4 g/dL (3.2-5.0); Alkaline Phosphatase 126 U/L (45-117); Anion Gap 6 (5-15); BUN 15 mg/dL (7-18); BUN/Creat Ratio 10.7 RATIO (10-20); Calcium,Total 8.4 mg/dL (8.5-10.1); Chloride 99 mmol/L (98-107); Cholesterol 127 mg/dL (200); EST Glomerular Filtration Rate 51 mL/min (>60); Est Glom Filt Rate - Afr Amer 61 mL/min (>60); Globulin 3.5 g/dL (2.2-4.2); Glucose 165 mg/dL (74-106); High Density Lipoprotein 74 mg/dL; Potassium 4.6 mmol/L (3.5-5.1); Protein, Total 6.9 g/dL (6.4-8.2); Sodium Level 133 mmol/L (136-145); Triglycerides 65 mg/dL; Very Low Density Lipoprotein 13 mg/dL (5-40)
== END | disposition home or self-care (01) ==
LOC: LAB 13:14
PROVIDERS: PCP Family Medicine Geriatric Medicine; Referring Provider Family Medicine Geriatric Medicine; Visit Provider Family Medicine Geriatric Medicine
DX: E78.5 Hyperlipidemia, unspecified (principal); E11.65 Type 2 diabetes mellitus with hyperglycemia; I10 Essential (primary) hypertension; E55.9 Vitamin D deficiency, unspecified
CPT/HCPCS: 36415; 80053; 80061; 82306; 83036; 84443; 85025

== ENCOUNTER → 2024-04-27 | Outpatient (CLI) | payer MEDICARE, SELFPAY ==
[2024-04-27 12:03] LABS: Mucous, Urine 0 SEEN /hpf (<or=2+)
[2024-04-27 12:40] LABS: Absolute Lymphocyte Count 0.78 X10^3/uL (0.83-4.51); Absolute Neutrophil Count 8.7 X10^3/uL (2.0-7.7); Basophil# 0.05 X10^3/uL; Basophil% 0.5 % (0-1); Color, Urine Yellow (Yellow); Eosinophil# 0.08 X10^3/uL; Eosinophils% 0.7 % (0-5); Glucose, Dipstick Normal (Normal); Hematocrit 40.3 % (40-54); Hemoglobin 13.8 g/dL (13.0-16.5); Ketone-Dipstick Negative (Negative); Leukocyte Esterase-Dipstick Negative /ul (Negative); Lymphocyte # 0.78 X10^3/ul (0.83-4.51); Lymphocyte % 7.2 % (19-41); Mean Corp Hgb Conc 34.2 g/dL (32-36); Mean Corpuscular Hgb 30.9 pg (27.0-32.0); Mean Corpuscular Volume 90.4 fL (80-94); Mean Platelet Vol. 11.2 fl (6.2-12.0); Monocyte# 1.08 X10^3/uL; NRBC Flagged by Analyzer 0 % (0-5); Neutrophil # 8.69 X10^3/uL (2.7-7.7); Neutrophil % 80.9 % (47-70); Nitrite-Dipstick Negative (Negative); Occult Blood-Urine 10 /ul (Negative); Platelet Count 212 K/mm3 (150-450); Protein-Dipstick 30 mg/dl (Negative); RBC Distribution Width CV 15.3 % (11.6-14.6); RBC Distribution Width SD 50.4 fl (35.1-43.9); Red Blood Count 4.46 M/mm3 (4.6-6.2); Urine Bilirubin Dipstick Negative (Negative); Urine Clarity Clear (Clear); Urine Urobilinogen 1 mg/dl (Normal); Urine pH 6.5 (5.0 - 8.0); White Blood Count 10.8 K/mm3 (4.4-11.0)
[2024-04-27 12:49] LABS: Bacteria 1+ /hpf (None Seen); Red Blood Cells-Urine 0-5 SEEN /hpf (0-5); Squamous Epithelial Cells - UA 0-5 SEEN /hpf (0-5); White Blood Cells 0-5 SEEN /hpf (0-5)
[2024-04-27 13:31] LABS: AST(SGOT) 24 U/L (15-37); Alanine Aminotransfer ALT/SGPT 30 U/L (16-61); Albumin, Serum 3.5 g/dL (3.2-5.0); Alkaline Phosphatase 147 U/L (45-117); Anion Gap 7 (5-15); BUN 14 mg/dL (7-18); BUN/Creat Ratio 9.9 RATIO (10-20); Calcium,Total 8.4 mg/dL (8.5-10.1); Chloride 101 mmol/L (98-107); Creatinine, Serum 1.41 mg/dL (0.70-1.30); EST Glomerular Filtration Rate 50 mL/min (>60); Est Glom Filt Rate - Afr Amer 61 mL/min (>60); Globulin 3.6 g/dL (2.2-4.2); Glucose 174 mg/dL (74-106); Potassium 4.1 mmol/L (3.5-5.1); Protein, Total 7.1 g/dL (6.4-8.2); Sodium Level 135 mmol/L (136-145)
== END | disposition home or self-care (01) ==
LOC: POLAB3 12:01
PROVIDERS: PCP Family Medicine Geriatric Medicine; Visit Provider Family Medicine Geriatric Medicine
DX: R53.1 Weakness (principal); I10 Essential (primary) hypertension
CPT/HCPCS: 36415; 80053; 81001; 84443; 85025

== ENCOUNTER 2024-07-03 14:33 | Emergency (ER) | payer MEDICARE, SELFPAY ==
[2024-07-03 14:34] VITALS: BP 180/76; PULSE 85; RESP 16; TEMP 36.8; O2SAT 98; BMI 33.1
--- NOTE | 2024-07-03 14:37 | ED.VIS.LOWEX ---
HPI History of Present Illness HPI Narrative: Patient presents with left leg laceration that occurred today. Patient states he fell and hit his leg. Patient denies any head injury or loss of consciousness. Patient denies any paresthesias or weakness. Patient is unsure of his last tetanus. Patient is on Eliquis for atrial fibrillation. Patient states the bleeding has been persistent. Patient denies any other injuries. Chief Complaint: Laceration Occured/Mechanism Mechanism/Context: Yes fall Onset/Context/Timing Onset: Today Context: Sudden Onset Timing: Continuous Location: Left lower leg Associated Symptoms Associated Symptoms: Negative for Parasthesia, Weakness or Loss of Funtion Narrative Tetanus Immunization: Unknown [facility] Medical History NSVT (nonsustained ventricular tachycardia) Aortic aneurysm without rupture Non-smoker Sleep apnea Atrial fibrillation Hypertension Chronic renal insufficiency, stage III (moderate) Closed head injury Fall Longstanding persistent atrial fibrillation Obstructive sleep apnea Right bundle branch block (RBBB) with left anterior fascicular block Left ventricular diastolic dysfunction Obesity Essential (primary) hypertension Nonrheumatic mitral (valve) insufficiency Non-rheumatic tricuspid valve insufficiency Paroxysmal atrial fibrillation Hyperlipidemia Diverticulosis Type 2 diabetes mellitus Diverticulitis large intestine Diverticula of colon Home Medications ?Medication ?Instructions ?Recorded ?Last Taken ?Type pravastatin 40 mg tablet 40 mg PO QHS cholesterol 09/19/14 12/21/21 History glimepiride 4 mg tablet 1 mg PO QAM diabetes 02/01/23 Unknown History potassium chloride 20 mEq 10 meq PO DAILY 02/01/23 Unknown History tablet,extended release metoprolol tartrate 25 mg tablet 25 mg PO BID #180 tabs 07/11/23 Unknown Rx levothyroxine 25 mcg tablet 25 mcg PO DAILY 02/20/24 Unknown History apixaban 2.5 mg tablet 2.5 mg PO BID blood thinner #60 03/27/24 Unknown Rx tabs amlodipine 5 mg tablet 5 mg PO DAILY #90 tabs 03/31/24 Unknown Rx furosemide 40 mg tablet 40 mg PO Q OTHER DAY PRN edema 03/31/24 Unknown History losartan 100 mg tablet 100 mg PO QDAY 03/31/24 Unknown History pantoprazole 40 mg tablet,delayed 40 mg PO QAM 03/31/24 Unknown History release Allergy/AdvReac Type Severity Reaction Status Date / Time codeine AdvReac Other Verified 07/03/24 14:37 lisinopril AdvReac Other Verified 07/03/24 14:37 Family History Father CVA (cerebral vascular accident) Mother Diabetes Sister Heart disease PPM Surgical History History of appendectomy History of cataract surgery History of tonsillectomy H/O hemicolectomy Hx of cholecystectomy Social History Smoking Status: Never smoker alcohol intake: current ROS ROS ED Constitutional Constitutional ED: Denies chills or fever(s) Eyes Eyes: Denies blurry vision or change in vision ENT ENT ED: Denies rhinorrhea or sore throat Cardiovascular Cardiovascular: Denies chest pain or palpitations Respiratory/Chest Respiratory/Chest: Denies cough or dyspnea Gastrointestinal Gastrointestinal: Denies nausea or vomiting Genitourinary Genitourinary ED: Denies dysuria or hematuria Musculoskeletal Musculoskeletal: Denies back pain or neck pain Integumentary Denies abscess or rash Neurologic Neurologic: Denies headache(s) or weakness Allergic/Immunologic Allergic/Immunologic ED: Denies mouth swelling or urticaria EXAM Physical Exam Const Vital Signs: 07/03/24 14:34 Temperature 98.3 F Temperature Source Oral Pulse Rate 85 Respiratory Rate 16 Blood Pressure 180/76 H Blood Pressure Mean 110 Pulse Ox 98 Oxygen Delivery Method Room Air Positive well nourished and well developed General Appearance ED: well developed and NAD HEENT Reports moist mucous membranes Neck full ROM and supple Neuro oriented x3, CN's II-XII intact bilaterally, moves all extremities and no sensory deficits noted Sensorium / Orientation: alert Motor Exam: strength 5/5 throughout Psych mental status grossly normal Skin Skin Narrative: There is a 6 cm full-thickness L-shaped laceration over the anterior lateral aspect of the left lower leg. There is mild gapping of the wound margins. There are no foreign bodies noted. There is no active bleeding noted. MDM MDM MDM Narrative Medical decision making narrative: The wound was cleaned and irrigated with copious amounts of normal saline. The wound was anesthetized with 1% lidocaine with epinephrine locally. The wound was closed with 6 horizontal mattress #4-0 nylon sutures under sterile technique. Patient tolerated the procedure well. Bacitracin dressing was applied. Patient was instructed to keep the wound clean and dry. Patient was instructed to follow-up with his primary care physician in 7 days for wound recheck and suture removal. Patient was instructed to return if worse in any way. Patient understood and was agreeable with the plan. All questions were answered. Procedures Lacerations Left lower leg: Length: 6 cm Depth: Sub Q Shape: Linear (L-shaped) Prep: Sterile Conditions and Chlorhexadine Laceration repair: Lidocaine with epi, Local, Skin sutures and Wound explored Irrigated (ml): 100 Number of Sutures/Hanna: 6 Suture Information: Ethilon, Horizontal, Mattress and 4-0 Discharge Plan Triage Chief Complaint: Laceration ED Provider: Salvatore Hightower Dx/Rx/DC Orders Clinical Impression: Laceration of left lower leg, Fall Instructions: ED Laceration, All Closures Prescriptions: No Action glimepiride 4 mg tablet 1 mg PO QAM Rx Instructions: administer with breakfast potassium chloride 20 mEq tablet extended release 10 meq PO DAILY pantoprazole 40 mg tablet,delayed release (DR/EC) 40 mg PO QAM losartan 100 mg tablet 100 mg PO QDAY furosemide 40 mg tablet 40 mg PO Q OTHER DAY PRN (Reason: edema) Rx Instructions: Hold if creatinine is more than 0.5 mg/dL above the baseline amlodipine 5 mg tablet 5 mg PO DAILY Qty: 90 3RF metoprolol tartrate 25 mg tablet 25 mg PO BID Qty: 180 3RF pravastatin 40 MG tablet 40 mg PO QHS Patient Comments: CHOLESTEROL levothyroxine 25 mcg tablet 25 mcg PO DAILY apixaban 2.5 mg tablet 2.5 mg PO BID Qty: 60 1RF Primary Care Provider: Bernard Nugent Chi Referrals: Bernard Nugent Chi, MD [Primary Care Provider] - 7 Days for suture removal Print Language: Bolivian Disposition Disposition: Home, Self Care
[2024-07-03] MEDS: Diphth,Pertuss(Acell),Tet Vac 0.5 ML Vial IM (15:28)
[2024-07-03] MEDS: Lidocaine 1% /Epi 1:100 (20ml) 20 ML Vial INFILT (15:28)
--- NOTE | 2024-07-03 16:58 | ED.RN ---
PT HAS VISUAL IMPAIRMENT. SENT PT WITH SUPPLIES TO CHANGE DRESSING ON HIS LEG. PT SAID HE HAS A NEIGHBOR TO HELP HIM. HE WAS ADVISED WHEN TO RETURN TO HAVE THE SUTURES OUT WITH HIS PCP.
== END 2024-07-03 17:00 | disposition home or self-care (01) ==
PROVIDERS: Emergency Provider Emergency Medicine; PCP Family Medicine Geriatric Medicine; Referring Provider Emergency Medicine; Visit Provider Emergency Medicine
DX: S81.812A Laceration without foreign body, left lower leg, initial encounter (principal); I48.91 Unspecified atrial fibrillation; E11.22 Type 2 diabetes mellitus with diabetic chronic kidney disease; N18.30 Chronic kidney disease, stage 3 unspecified; Z79.01 Long term (current) use of anticoagulants; I12.9 Hypertensive chronic kidney disease with stage 1 through stage 4 chronic kidney disease, or unspecified chronic kidney disease; E78.5 Hyperlipidemia, unspecified; G47.33 Obstructive sleep apnea (adult) (pediatric); Z90.49 Acquired absence of other specified parts of digestive tract; W01.10XA Fall on same level from slipping, tripping and stumbling with subsequent striking against unspecified object, initial encounter
CPT/HCPCS: 12002; 90715; 99285

== ENCOUNTER → 2024-07-09 | Outpatient (CLI) | payer MEDICARE, SELFPAY ==
[2024-07-09 19:28] LABS: M R Staph aureus DNA By PCR Negative (Negative); Probe Check PASS; Specimen Processing Control PASS; Staph aureus DNA By PCR NEGATIVE (Negative)
== END | disposition home or self-care (01) ==
PROVIDERS: PCP Family Medicine Geriatric Medicine; Referring Provider Family Medicine Geriatric Medicine; Visit Provider Family Medicine Geriatric Medicine
DX: L03.116 Cellulitis of left lower limb (principal); Z22.39 Carrier of other specified bacterial diseases
CPT/HCPCS: 87070; 87075; 87077; 87186; 87205; 87640

== ENCOUNTER → 2024-07-27 | Outpatient (CLI) | payer MEDICARE, SELFPAY ==
[2024-07-27 11:19] LABS: Absolute Lymphocyte Count 0.92 X10^3/uL (0.83-4.51); Absolute Neutrophil Count 4.5 X10^3/uL (2.0-7.7); Basophil# 0.05 X10^3/uL; Basophil% 0.8 % (0-1); Eosinophil# 0.21 X10^3/uL; Eosinophils% 3.3 % (0-5); Hematocrit 34.5 % (40-54); Hemoglobin 12.5 g/dL (13.0-16.5); Lymphocyte # 0.92 X10^3/ul (0.83-4.51); Lymphocyte % 14.4 % (19-41); Mean Corp Hgb Conc 36.2 g/dL (32-36); Mean Corpuscular Hgb 31.9 pg (27.0-32.0); Mean Platelet Vol. 10.6 fl (6.2-12.0); NRBC Flagged by Analyzer 0 % (0-5); Neutrophil # 4.45 X10^3/uL (2.7-7.7); Neutrophil % 69.9 % (47-70); Platelet Count 213 K/mm3 (150-450); RBC Distribution Width SD 42.2 fl (35.1-43.9); Red Blood Count 3.92 M/mm3 (4.6-6.2); White Blood Count 6.4 K/mm3 (4.4-11.0)
[2024-07-27 11:53] LABS: Hemoglobin A1c 6.6 % (<=5.6)
[2024-07-27 12:07] LABS: ALB/GLOB Ratio 1.4 RATIO (0.9-2.4); AST(SGOT) 35 U/L (<=37); Alanine Aminotransfer ALT/SGPT 26 U/L (<=46); Albumin, Serum 3.7 g/dL (3.4-4.8); Alkaline Phosphatase 131 U/L (40-129); Anion Gap 11 (5-15); BUN 14 mg/dL (4-19); BUN/Creat Ratio 11.5 RATIO (10-20); Calcium,Total 8.4 mg/dL (7.6-11.0); Carbon Dioxide 22.3 mmol/L (21.0-32.0); Chloride 93 mmol/L (98-108); Creatinine, Serum 1.23 mg/dL (0.70-1.20); EST Glomerular Filtration Rate 56 (>60); Globulin 2.6 g/dL (2.2-4.2); Glucose 118 mg/dL (70-99); Potassium 4.5 mmol/L (3.3-5.1); Protein, Total 6.3 g/dL (5.9-8.4); Sodium Level 126 mmol/L (133-145); Total Bilirubin 1.41 mg/dL (0.00-1.30)
[2024-07-27 12:51] LABS: Cholesterol 101 mg/dL (<=200); High Density Lipoprotein 64 mg/dL; Low Density Lipoprotein Calc. 22 mg/dL; Triglycerides 75 mg/dL; Very Low Density Lipoprotein 15 mg/dL (5-40); Vitamin D,25 Hydroxy 21.6 ng/mL (30-100); cholesterol:hdl ratio screen 1.59
== END | disposition home or self-care (01) ==
PROVIDERS: PCP Family Medicine Geriatric Medicine; Referring Provider Family Medicine Geriatric Medicine; Visit Provider Family Medicine Geriatric Medicine
DX: E78.5 Hyperlipidemia, unspecified (principal); E11.65 Type 2 diabetes mellitus with hyperglycemia; I10 Essential (primary) hypertension; E03.9 Hypothyroidism, unspecified; E55.9 Vitamin D deficiency, unspecified
CPT/HCPCS: 36415; 80053; 80061; 82306; 83036; 84443; 85025

== ENCOUNTER → 2024-10-22 | Outpatient (CLI) | payer MEDICARE, SELFPAY ==
[2024-10-22 13:37] LABS: Absolute Lymphocyte Count 0.95 X10^3/uL (0.83-4.51); Absolute Neutrophil Count 9.8 X10^3/uL (2.0-7.7); Basophil# 0.07 X10^3/uL; Basophil% 0.6 % (0-1); Eosinophil# 0.22 X10^3/uL; Eosinophils% 1.8 % (0-5); Hematocrit 38.4 % (40-54); Hemoglobin 13.3 g/dL (13.0-16.5); Lymphocyte # 0.95 X10^3/ul (0.83-4.51); Lymphocyte % 7.8 % (19-41); Mean Corp Hgb Conc 34.6 g/dL (32-36); Mean Corpuscular Hgb 31.1 pg (27.0-32.0); Mean Corpuscular Volume 89.7 fL (80-94); Mean Platelet Vol. 10.6 fl (6.2-12.0); NRBC Flagged by Analyzer 0 % (0-5); Neutrophil # 9.75 X10^3/uL (2.7-7.7); Neutrophil % 79.8 % (47-70); Platelet Count 285 K/mm3 (150-450); RBC Distribution Width CV 13.2 % (11.6-14.6); RBC Distribution Width SD 43.7 fl (35.1-43.9); Red Blood Count 4.28 M/mm3 (4.6-6.2); White Blood Count 12.2 K/mm3 (4.4-11.0)
[2024-10-22 14:25] LABS: Hemoglobin A1c 6.2 % (<=5.6)
[2024-10-22 14:44] LABS: ALB/GLOB Ratio 1.4 RATIO (0.9-2.4); AST(SGOT) 21 U/L (<=37); Alanine Aminotransfer ALT/SGPT 18 U/L (<=46); Albumin, Serum 3.8 g/dL (3.4-4.8); Alkaline Phosphatase 174 U/L (40-129); Anion Gap 13 (5-15); BUN 12 mg/dL (4-19); BUN/Creat Ratio 9.4 RATIO (10-20); Calcium,Total 8.7 mg/dL (7.6-11.0); Carbon Dioxide 21.3 mmol/L (21.0-32.0); Chloride 97 mmol/L (98-108); Cholesterol 95 mg/dL (<=200); Creatinine, Serum 1.22 mg/dL (0.70-1.20); EST Glomerular Filtration Rate 57 (>60); Globulin 2.7 g/dL (2.2-4.2); Glucose 137 mg/dL (70-99); High Density Lipoprotein 49 mg/dL; Low Density Lipoprotein Calc. 33 mg/dL; Potassium 4.4 mmol/L (3.3-5.1); Protein, Total 6.5 g/dL (5.9-8.4); Sodium Level 132 mmol/L (133-145); Triglycerides 61 mg/dL; Very Low Density Lipoprotein 12 mg/dL (5-40); Vitamin D,25 Hydroxy 20.9 ng/mL (30-100); cholesterol:hdl ratio screen 1.92
== END | disposition home or self-care (01) ==
LOC: LAB 12:26
PROVIDERS: PCP Family Medicine Geriatric Medicine; Referring Provider Family Medicine Geriatric Medicine; Visit Provider Family Medicine Geriatric Medicine
DX: E78.5 Hyperlipidemia, unspecified (principal); E11.65 Type 2 diabetes mellitus with hyperglycemia; I10 Essential (primary) hypertension; E55.9 Vitamin D deficiency, unspecified
CPT/HCPCS: 36415; 80053; 80061; 82306; 83036; 84443; 85025

== ENCOUNTER → 2024-10-30 | Outpatient (CLI) | payer MEDICARE, SELFPAY ==
--- NOTE | 2024-10-30 10:15 | RAD_ITS ---
EXAM: XR Abdomen, 1 View CLINICAL INDICATION: DIARRHEA TECHNIQUE: Frontal supine view of the abdomen/pelvis. COMPARISON: No relevant prior studies available. FINDINGS: GASTROINTESTINAL TRACT: Fecal retention in the colon consistent with constipation. No dilation. BONES/JOINTS: Unremarkable. No acute fracture. RAD/Abdomen Single View IMPRESSION: Fecal retention in the colon consistent with constipation. Reading [facility]
[2024-10-30 12:47] LABS: Absolute Lymphocyte Count 0.94 X10^3/uL (0.83-4.51); Basophil# 0.08 X10^3/uL; Basophil% 0.7 % (0-1); Eosinophil# 0.14 X10^3/uL; Eosinophils% 1.3 % (0-5); Hematocrit 37.8 % (40-54); Hemoglobin 13.2 g/dL (13.0-16.5); Lymphocyte # 0.94 X10^3/ul (0.83-4.51); Lymphocyte % 8.4 % (19-41); Mean Corp Hgb Conc 34.9 g/dL (32-36); Mean Corpuscular Hgb 31.6 pg (27.0-32.0); Mean Corpuscular Volume 90.4 fL (80-94); Mean Platelet Vol. 10.9 fl (6.2-12.0); Monocyte# 0.92 X10^3/uL; Monocyte% 8.2 % (0-10); NRBC Flagged by Analyzer 0 % (0-5); Neutrophil # 9.04 X10^3/uL (2.7-7.7); Neutrophil % 80.9 % (47-70); Platelet Count 250 K/mm3 (150-450); RBC Distribution Width CV 13.2 % (11.6-14.6); RBC Distribution Width SD 43.7 fl (35.1-43.9); Red Blood Count 4.18 M/mm3 (4.6-6.2); White Blood Count 11.2 K/mm3 (4.4-11.0)
[2024-10-30 13:52] LABS: Phosphorus 3.1 mg/dL (2.7-4.5)
[2024-10-30 15:02] LABS: ALB/GLOB Ratio 1.2 RATIO (0.9-2.4); AST(SGOT) 25 U/L (<=37); Alanine Aminotransfer ALT/SGPT 20 U/L (<=46); Albumin, Serum 3.7 g/dL (3.4-4.8); Alkaline Phosphatase 147 U/L (40-129); Anion Gap 10 (5-15); BUN 15 mg/dL (4-19); BUN/Creat Ratio 10.8 RATIO (10-20); Calcium,Total 8.7 mg/dL (7.6-11.0); Carbon Dioxide 21.1 mmol/L (21.0-32.0); Chloride 100 mmol/L (98-108); Creatinine, Serum 1.41 mg/dL (0.70-1.20); EST Glomerular Filtration Rate 48 (>60); Globulin 3.1 g/dL (2.2-4.2); Glucose 150 mg/dL (70-99); Potassium 4.3 mmol/L (3.3-5.1); Protein, Total 6.8 g/dL (5.9-8.4); Sodium Level 130 mmol/L (133-145); Total Bilirubin 2.53 mg/dL (0.00-1.30)
--- OUTSIDE RECORDS SUMMARY | 2024-10-30 18:00 | XMS RPT_ITS | CCD ---
Author Organization [facility] CliniSysd Care Team Providers Care [facility] Director Name Role Phone Chelsy Reis Unavailable Karen RN, Annalisa Maradiaga Unavailable Unavailable Chelsy Reis Unavailable Dr. Benrard Nugent Chi Primary Care Provider MD Harsh Rincon Emergency Provider Dr. Charanjit Kennedy Admit Provider Dr. Charanjit Kennedy Attending Provider Dr. Charanjit Kennedy Other Provider Dr. Bernard Nugent Chi Primary Care Provider Dr. Alana Conklin Attending Provider Dr. Renzo Damon Attending Provider Dr. Renzo Damon Other Provider Dr. Bernard Nugent Chi Referring Provider Roof CRIBBER, CRIBBER-C Evin Clayton Attending Provider Dr. Roger Gonzalez Emergency Provider Dr. Maynor Duran Admit Provider Dr. Maynor Duran Attending Provider Dr. Maynor Duran Other Provider Dr. Alana Conklin Other Provider Irene CAMPOS, PA Muriel Storey Attending Provider Dr. Bernard Nugent Chi Primary Care Provider Dr. Tam Albrecht Attending Provider Dr. Salvatore Lyman Attending Provider [phone] Raffi, Dr. Bernard Reardon Primary Care Provider Raffi, Dr. Bernard Reardon Referring Provider Roof CRIBBER, CRIBBER-C Evin Clayton Attending Provider Dr. Roger Gonzalez Emergency Provider Roger, Dr. Mcguire Admit Provider Roger, Dr. Mcguire Attending Provider Roger, Dr. Mcguire Other Provider Rubin, Dr. Warner Other Provider Irene CAMPOS, PA Muriel Storey Attending Provider Dr. Tam Albrecht Attending Provider Dr. Salvatore Lyman Attending Provider [phone] Raffi, Dr. Bernard Reardon Primary Care Provider Raffi, Dr. Bernard Reardon Referring Provider Roof CRIBBER, CRIBBER-C Evin Clayton Attending Provider Raffi, Dr. Bernard Reardon Primary Care Provider Raffi, Dr. Bernard Reardon Referring Provider Roof CRIBBER, CRIBBER-C Evin Clayton Attending Provider Dr. Rodolfo Tobias Attending Provider [phone] Rodolfo Tobias Referring Provider [phone] Rodolfo Tobias Other Provider Raffi, Dr. Bernard Reardon Primary Care Provider Raffi, Dr. Bernard Reardon Referring Provider Jacqui Bell Attending Provider Unavailable Raffi, Dr. Bernard Reardon Primary Care Provider Raffi, Dr. Bernard Reardon Referring Provider Jacqui Bell Attending Provider Unavailable Dr. Rodolfo Tobias Attending Provider [phone] Rodolfo Tobias Referring Provider [phone] Raffi, Dr. Bernard Reardon Primary Care Provider Raffi, Dr. Bernard Reardon Referring Provider Jacqui Bell Attending Provider Unavailable Torsten CRIBBER, CRIBBER-Jean Paul Clayton Attending Provider Raffi, Dr. Bernard Reardon Primary Care Provider Raffi, Dr. Bernard Reardon Referring Provider Torsten CRIBBER, CRIBBER-Jean Paul Clayton Attending Provider Jatinder, Dr. Reynolds Attending Provider [phone] Jatinder, Dr. Reynolds Referring Provider [phone] Raffi, Dr. Bernard Reardon Primary Care Provider Jatinder, Dr. Reynolds Attending Provider [phone] Jatinder, Dr. Reynolds Referring Provider [phone] Raffi, Dr. Bernard Reardon Primary Care Provider Jatinder, Dr. Reynolds Attending Provider [phone] Jatinder, Dr. Reynolds Referring Provider [phone] Raffi, Dr. Bernard Reardon Referring Provider Irene CAMPOS, ANDRES Storey Attending Provider Dr. Salvatore Lyman Attending Provider [phone] Raffi AZEVEDO, Dr. Bernard Reardon Primary Care Provider Raffi AZEVEDO, Dr. Bernard Reardon Referring Provider Jatinder AZEVEDO, Dr. Reynolds Attending Provider [phone] Raffi AZEVEDO, Dr. Bernard Reardon Attending Provider Jatinder AZEVEDO, Dr. Reynolds Referring Provider Dr. Salvatore Hightower DO Attending Provider Dr. Salvatore Hightower DO Referring Provider Campbell FALCON, Dr. Chase Emergency Provider Raffi AZEVEDO, Dr. Bernard Reardon Primary Care Provider [phone] Raffi AZEVEDO, Dr. Bernard Reardon Attending Provider Raffi AZEVEDO, Dr. Bernard Reardon Referring Provider Jatinder AZEVEDO, Dr. Reynolds Attending Provider Jatinder AZEVEDO, Dr. Reynolds Referring Provider [phone] Salvatore Hightower DO Attending Provider [phone] Campbell FALCON, Dr. Chase Referring Provider Dr. Salvatore Hightower DO Emergency Provider [phone] Raffi, Bernard Chi Attending Unavailable Raffi, Bernard Chi Referring Unavailable Raffi, Bernard Chi Primary Care Unavailable Raffi, Bernard Chi Primary Care Unavailable Raffi, Bernard Chi Attending Unavailable Raffi, Bernard Chi Primary Care Unavailable Raffi, Bernard Chi Attending Unavailable Raffi, Bernard Chi Referring Unavailable Raffi, Bernard Chi Primary Care Unavailable Jatinder, Rodolfo Referring Unavailable Jatinder, Rodolfo Attending Unavailable Raffi, Bernard Chi Primary Care Unavailable Jatinder, Garibaldi Attending Unavailable Jatinder, Garibaldi Referring Unavailable Raffi, Bernard Chi Attending Unavailable Raffi, Bernard Chi Referring Unavailable Raffi, Bernard Chi Primary Care Unavailable Raffi, Bernard Chi Primary Care Unavailable Severino, Shaila Attending Unavailable Raffi, Bernard Chi Referring Unavailable Raffi, Bernard Chi Attending Unavailable Raffi, Bernard Chi Primary Care Unavailable Raffi, Bernard Chi Primary Care Unavailable Raffi, Bernard Chi Referring Unavailable Raffi, Bernard Chi Attending Unavailable Raffi, Bernard Chi Attending Unavailable Raffi, Bernard Chi Primary Care Unavailable Raffi, Bernard Chi Primary Care Unavailable Severino, Shaila Referring Unavailable Severino, Shaila Attending Unavailable Raffi, Bernard Chi Primary Care Unavailable Jatinder, Rodolfo Referring Unavailable Jatinder, Rodolfo Attending Unavailable Raffi, Bernard Chi Referring Unavailable Raffi, Bernard Chi Primary Care Unavailable Muriel Blair Attending Unavail able Jatinder, Rodolfo Attending Unavailable Raffi, Bernard Chi Primary Care Unavailable Jatinder, Garibaldi Referring Unavailable Raffi, Bernard Chi Primary Care Unavailable Raffi, Bernard Chi Attending Unavailable Raffi, Bernard Chi Primary Care Unavailable Raffi, Bernard Chi Attending Unavailable Raffi, Bernard Chi Referring Unavailable Raffi, Bernard Chi Primary Care Unavailable Raffi, Bernard Chi Referring Unavailable Raffi, Bernard Chi Attending Unavailable Raffi, Bernard Chi Attending Unavailable Raffi, Bernard Chi Referring Unavailable Raffi, Bernard Chi Primary Care Unavailable Raffi, Bernard Chi Primary Care Unavailable Raffi, Bernard Chi Attending Unavailable Raffi, Bernard Chi Referring Unavailable Rodolfo Tobias Attending Unavailable Raffi, Bernard Chi Primary Care Unavailable Raffi, Bernard Chi Primary Care Unavailable Salvatore Hightower Referring Unavailable Salvatore Hightower Attending Unavailable Raffi AZEVEDO, Dr. Bernard Reardon Primary Care Provider Dr. Bernard Nugent MD, Chi Attending Provider Dr. Bernard Nugent MD, Chi Referring Provider Jatinder AZEVEDO, Dr. Reynolds Attending Provider [phone] Jatinder AZEVEDO, Dr. Reynolds Referring Provider Allergies Allergy Classification Reported Allergen(s) Allergy Type Date of Onset Reaction(s) Facility (20 sources) codeine; Translations: [CODEINE] drug allergy 2 [facility], Other [facility] Work Phone: Comment on above: HALLUCINATIONS (3 sources) Losartan Drug Allergy 2 COUGH [facility] Work Phone: (20 sources) Lisinopril Drug Allergy 2 Other [facility] (1 source) Lisinopril Drug Allergy 5 [facility] Repository Medications Current Medications Medication Drug Class(es) Dates Sig (Normalized) Sig (Original) amLODIPine 5 mg oral tablet (6 sources) Dihydropyridine Calcium Channel Juvencio Start: 03-31-2024 take 1 tablet by mouth once daily Amlodipine 5 mg tablet Active 5 mg PO DAILY March 31, 2024 12:56pm Start: 08-08-2023 End: 03-31-2024 take 1 tablet by mouth once daily Amlodipine (Norvasc) 2.5 mg tablet Discontinued 2.5 mg PO DAILY August 08, 2023 12:00am March 31, 2024 12:56pm furosemide 40 mg oral tablet (20 sources) Loop Diuretic Start: 07-05-2023 End: 03-31-2024 take 1 tablet by mouth every other day as needed for edema Furosemide 40 mg tablet Active 40 mg PO every other day as needed for edema March 31, 2024 12:45pm Hold if creatinine is more than 0.5 mg/dL above the baseline Start: 07-10-2022 End: 07-05-2023 take 1 tablet by mouth once daily Furosemide 40 mg tablet Discontinued 40 mg PO DAILY October 30, 2022 11:27am July 05, 2023 5:52pm Hold if creatinine is more than 0.5 mg/dL above the baseline Start: 06-19-2022 End: 07-10-2022 take 1 tablet by mouth every other day Furosemide 40 mg tablet Discontinued 40 mg PO every other day June 19, 2022 12:30pm July 10, 2022 1:45pm Hold if creatinine is more than 0.5 mg/dL above the baseline Start: 12-22-2021 End: 06-19-2022 take 1 tablet by mouth once daily as needed for edema Furosemide 40 mg tablet Discontinued 40 mg PO DAILY as needed for edema January 24, 2022 1:28pm June 19, 2022 11:59am Hold if creatinine is more than 0.5 mg/dL above the baseline glimepiride 4 mg oral tablet (20 sources) Sulfonylurea Start: 02-01-2023 take 1 mg by mouth once daily at breakfast Glimepiride Active 1 MG PO EVERY MORNING February 01, 2023 3:08pm administer with breakfast Start: 09-18-2022 End: 02-01-2023 take 1 mg by mouth once daily at breakfast Glimepiride 4 mg tablet Active 1 mg PO EVERY MORNING February 01, 2023 3:08pm administer with breakfast Start: 12-30-2013 End: 05-25-2016 take 1 tablet by mouth once daily GLIMEPIRIDE 2 MG TAB S One tablet by mouth daily GLIMEPIRIDE [id number] Rodolfo Tobias MD levothyroxine sodium 0.025 mg oral tablet (3 sources) l-Thyroxine Start: 02-20-2024 take 1 tablet by mouth once daily Levothyroxine 25 mcg tablet Active 25 ug PO DAILY February 20, 2024 12:00am losartan potassium 100 mg oral tablet (20 sources) Angiotensin 2 Receptor Juvencio Start: 03-31-2024 take 1 tablet by mouth once daily Losartan 100 mg tablet Active 100 mg PO daily March 31, 2024 1:00am Start: 12-22-2021 End: 06-19-2022 take 1 tablet by mouth once daily Losartan 100 mg tablet Discontinued 100 mg PO DAILY 90 January 24, 2022 1:26pm June 19, 2022 11:59am pantoprazole 40 mg delayed release oral tablet (3 sources) Proton Pump Inhibitor Start: 03-31-2024 take 1 tablet by mouth once daily in the morning Pantoprazole 40 mg tablet,delayed release (DR/EC) Active 40 mg PO EVERY MORNING March 31, 2024 1:00am potassium chloride 20 meq extended release oral tablet (20 sources) Start: 02-01-2023 take 10 mEq by mouth once daily Potassium Chloride 20 mEq tablet extended release Active 10 meq PO DAILY February 01, 2023 3:08pm Start: 02-01-2023 take 10 mEq by mouth once [place] Potassium Chloride Active 10 MEQ PO DAILY February 01, 2023 3:08pm Start: 10-23-2022 End: 02-01-2023 take 2 tablets by mouth once daily Potassium Chloride 20 mEq tablet extended release Discontinued 40 meq PO DAILY 180 October 30, 2022 11:27am February 01, 2023 3:09pm Start: 10-23-2022 End: 02-01-2023 take 40 mEq by mouth once daily Potassium Chloride Dis continued 40 MEQ PO DAILY 180 October 30, 2022 11:27am February 01, 2023 3:09pm Start: 01-13-2019 End: 12-10-2019 take 1 tablet by mouth once daily Potassium Chloride 20 mEq tablet extended release Discontinued 20 meq PO DAILY 90 January 13, 2019 12:00am December 10, 2019 11:07am pravastatin sodium 40 mg oral tablet (20 sources) HMG-CoA Reductase Inhibitor Start: 12-30-2013 take 1 tablet by mouth at bedtime Pravastatin 40 MG tablet Active 40 mg PO AT BEDTIME September 19, 2014 12:00am Start: 12-30-2013 PRAVASTATIN SO DIUM 40 MG TABS as directed PRAVASTATIN SODIUM [id number] Tj Boswell Completed/Discontinued Medications Medication Drug Class(es) Dates Sig (Normalized) Sig (Original) OXYCODONE-ACETAMIN OPHEN (6 sources) Opioid Agonist Start: 11-05-2014 End: 11-09-2014 take 1-2 tablets by mouth every four hours as needed PERCOCET 5-325 MG TABS 1-2 tablets by mouth every 4 hours as needed OXYCODONE-ACETAMINO PHEN [id number] Annalisa Jones RN Start: 11-05-2014 take 1-2 tablets by mouth every four hours as needed PERCOCET 5-325 MG TABS 1-2 tablets by mouth every 4 hours as needed OXYCODONE-ACETAMINOPHEN [id number] Annalisa Jones RN Start: 11-05-2014 End: 11-09-2014 take 1-2 tablets by mouth every four hours as needed PERCOCET 5-325 MG TABS 1-2 tablets by mouth every 4 hours as needed OXYCODONE-ACETAMINOPHEN [id number] Muriel Bonilla PA-C apixaban 2.5 mg oral tablet (20 sources) Factor Xa Inhibitor Start: 02-01-2023 End: 03-27-2024 take 1 tablet by mouth twice daily Apixaban 2.5 mg tablet Discontinued 2.5 mg PO TWICE A DAY 180 March 19, 2024 10:20am March 27, 2024 2:20pm Start: 06-19-2022 End: 02-01-2023 take 1 tablet by mouth twice daily Apixaban (Eliquis) 5 mg tablet Discontinued 5 mg PO TWICE A DAY 180 November 28, 2022 1:52pm February 01, 2023 3:30pm Start: 12-10-2019 End: 04-30-2022 take 1 tablet by mouth twice daily Apixaban (Eliquis) 5 mg tablet Discontinued 0 .ROUTE .COMPLEX 180 November 17, 2021 1:28pm December 21, 2021 4:29pm take 1 tablet by mouth twice a day Start: 01-13-2019 End: 01-29-2019 take 1 tablet by mouth twice daily Apixaban (Eliquis) 2.5 mg tablet Discontinued 2.5 mg PO TWICE A DAY 180 January 13, 2019 12:00am January 29, 2019 10:24am aspirin 325 mg oral tablet (20 sources) Nonsteroidal Anti-inflammatory Drug Start: 01-29-2019 End: 12-10-2019 take 1 tablet by mouth once daily Aspirin 325 mg tablet Discontinued 325 mg PO DAILY January 29, 2019 12:00am December 10, 2019 11:40am Start: 09-19-2014 End: 01-29-2019 take 1 tablet by mouth at bedtime Aspirin 81 MG tablet,chewable Discontinued 81 mg PO AT BEDTIME September 19, 2014 12:00am January 29, 2019 10:24am Start: 05-26-2014 take 1 tablet by valeriy th once daily ASPIRIN 81 MG TABS One tablet by mouth daily ASPIRIN [id number] Rodolfo Tobias MD Start: 05-26-2014 take 1 tablet by valeriy th once daily ASPIRIN 81 MG TABS One tablet by mouth daily ASPIRIN [id number] Rodolfo Tobias MD cholecalciferol 0.025 mg oral capsule (20 sources) Vitamin D Start: 01-24-2022 End: 11-11-2023 take 1 capsule by mouth once daily Cholecalciferol (Vitamin D3) 25 mcg (1,000 unit) capsule Discontinued 25 ug PO DAILY January 24, 2022 12:00am November 11, 2023 11:28am 24 hr dilTIAZem hydrochloride 120 mg extended release oral capsule (20 sources) Calcium Channel Juvencio Start: 12-10-2019 End: 12-19-2021 take 1 capsule by mouth once daily Diltiazem Hcl 120 mg capsule,extended release 24hr Discontinued 120 mg PO DAILY March 02, 2021 2:12pm October 26, 2021 12:40pm docusate sodium 50 mg / sennosides, retirement 8.6 mg oral tablet (20 sources) Start: 12-22-2021 End: 06-19-2022 Sennosides-Docusate Sodium (Stool Softener-Stimulant Laxat) 8.6-50 mg Tablet Discontinued 2 {tbl} PO TWICE DAILY NEEDED as needed for Constipation 0 December 22, 2021 12:00am June 19, 2022 11:59am Fvfa-tvq-haftowe empagliflozin 10 mg oral tablet (15 sources) Sodium-Glucose Cotransporter 2 Inhibitor Start: 08-16-2022 End: 09-18-2022 take 1 tablet by mouth once daily Empagliflozin (Jardiance) 10 mg tablet Discontinued 10 mg PO DAILY August 16, 2022 12:00am September 18, 2022 3:48pm hydroCHLOROthiazide 25 mg / losartan potassium 100 mg oral tablet (20 sources) Thiazide Diuretic, Angiotensin 2 Receptor Juvencio Start: 09-24-2014 End: 12-22-2021 Losartan-Hydrochlor othiazide 100-25 mg tablet Discontinued 1 {tbl} PO DAILY March 02, 2021 2:12pm October 26, 2021 12:40pm Start: 09-24-2014 End: 12-22-2021 take 1 tablet by mouth once daily Losartan-Hydrochlorothiazide Discontinue d 1 TABLET PO DAILY March 02, 2021 2:12pm October 26, 2021 12:40pm Start: 12-30-2013 take 0.5 tablet by mouth once daily LOSARTAN POTASSIUM-HCTZ 100-12.5 MG TABS 1/2 tablet by mouth daily LOSARTAN POTASSIUM-HCTZ [id number] Rodolfo Tobias MD Start: 12-30-2013 LOSARTAN POTAS SIUM-HCTZ 100-12.5 MG TABS as directed LOSARTAN POTASSIUM-HCTZ [id number] Tj Boswell magnesium oxide 400 mg oral tablet (20 sources) Start: 12-22-2021 End: 01-24-2022 take 1 tablet by mouth twice daily Magnesium Oxide 400 mg magnesium tablet Discontinued 400 mg PO TWICE A DAY December 22, 2021 12:00am January 24, 2022 1:10pm Follow-up set of magnesium after 4 days melatonin 5 mg oral tablet (15 sources) Start: 08-16-2022 End: 11-11-2023 take 1 tablet by mouth at bedtime as needed Melatonin 5 mg tablet Discontinued 5 mg PO BEDTIME as needed for Insomnia August 16, 2022 12:00am November 11, 2023 11:28am metFORMIN hydrochloride 500 mg oral tablet (20 sources) Biguanide Start: 09-19-2014 End: 01-13-2018 Metformin 1,000 MG tablet Discontinued 1000 mg PO 799September 19, 2014 12:00am January 13, 2018 3:54pm Start: 09-19-2014 End: 12-07-2021 take 1 tablet by mouth at bedtime Metformin 500 MG tablet Discontinued 500 mg PO AT BEDTIME September 19, 2014 12:00am December 07, 2021 10:06am Start: 12-30-2013 METFORMIN HCL 1000 MG TABS 1000 mg in the am, 500 mg at bedtime METFORMIN HCL [id number] Rodolfo Tobias MD metoprolol tartrate 25 mg oral tablet (20 sources) beta-Adrenergic Juvencio Start: 07-07-2023 End: 08-18-2024 take 1 tablet by mouth twice daily Metoprolol Tartrate 25 mg tablet Discontinued 25 mg PO TWICE A DAY July 08, 2023 5:20pm July 11, 2023 12:35pm Start: 07-05-2023 End: 07-11-2023 take 1 tablet by mouth every twenty-four hours at bedtime Metoprolol Succinate 25 mg tablet extended release 24 hr Discontinued 25 mg PO AT BEDTIME July 05, 2023 1:00am July 11, 2023 12:11pm Start: 02-05-2022 End: 03-13-2022 take 2 tablets by mouth once daily Metoprolol Succinate 25 mg tablet extended release 24 hr Discontinued 12.5 mg PO DAILY February 05, 2022 3:16pm March 13, 2022 1:27pm Start: 02-05-2022 End: 03-13-2022 take 12.5 mg by mouth once daily Metoprolol Succinate Discontinued 12.5 MG PO DAILY February 05, 2022 3:16pm March 13, 2022 1:27pm Start: 01-24-2022 End: 02-05-2022 take 1 tablet by mouth once daily Metoprolol Succinate 25 mg tablet extended release 24 hr Discontinued 25 mg PO DAILY January 24, 2022 12:00am February 05, 2022 3:17pm Start: 12-22-2021 End: 01-24-2022 take 1 tablet by mouth once daily Metoprolol Tartrate 25 mg Tablet Discontinued 25 mg PO DAILY December 22, 2021 12:00am January 24, 2022 1:26pm Start: 12-19-2021 End: 12-22-2021 take 1 tablet by mouth once daily Metoprolol Succinate 50 mg tablet extended release 24 hr Discontinued 50 mg PO DAILY December 19, 2021 12:00am December 22, 2021 2:03pm Start: 01-13-2019 End: 12-19-2021 take 1 tablet by mouth once daily Metoprolol Succinate 100 mg tablet extended release 24 hr Discontinued 100 mg PO DAILY March 02, 2021 2:12pm October 26, 2021 12:40pm Start: 01-13-2018 End: 01-13-2019 take 2 tablets by mouth once daily Metoprolol Succinate 100 mg tablet extended release 24 hr Discontinued 50 mg PO daily October 20, 2018 4:29pm January 13, 2019 11:47am Start: 01-13-2018 End: 01-13-2019 take 50 mg by mouth once daily Metoprolol Succinate Di scontinued 50 MG PO daily 45 October 20, 2018 4:29pm January 13, 2019 11:47am Start: 05-23-2017 End: 01-13-2018 take 1 tablet by mouth once daily Metoprolol Succinate 100 mg tablet extended release 24 hr Discontinued 100 mg PO daily May 23, 2017 1:00am January 13, 2018 4:04pm Start: 09-24-2014 End: 05-23-2017 take 2 tablets by mouth once daily Metoprolol Tartrate 50 MG tablet Discontinued 100 mg PO DAILY September 24, 2014 12:00am May 23, 2017 1:53pm Start: 09-24-2014 End: 05-23-2017 take 100 mg by mouth once daily Metoprolol Tartrate Di scontinued 100 MG PO DAILY September 24, 2014 12:00am May 23, 2017 1:53pm Start: 05-26-2014 take 2 tablets by mo [facility] once daily TOPROL XL 50 MG [id number] Two tablets by mouth daily METOPROLOL SUCCINATE [id number] Rodolfo Tobias MD Start: 05-26-2014 take 1 tablet by mouth once [place] TOPROL XL 100 MG [id number] One tablet by mouth daily METOPROLOL SUCCINATE [id number] Rodolfo Tobias MD Start: 05-26-2014 take 1 tablet by mouth once [place] TOPROL XL 100 MG [id number] One tablet by mouth daily METOPROLOL SUCCINATE [id number] Rodolfo Tobias MD Start: 05-26-2014 take 2 tablets by mo uth once daily TOPROL XL 50 MG [id number] Two tablets by mouth daily METOPROLOL SUCCINATE [id number] Rodolfo Tobias MD Start: 05-26-2014 take 1 tablet by mouth once [place] TOPROL XL 50 MG [id number] One tablet by mouth daily METOPROLOL SUCCINATE [id number] Rodolfo Tobias MD MULTIPLE VITAMINS-MINERALS (2 sources) Start: 12-30-2013 PRESERVISION A REDS TABS as directed MULTIPLE VITAMINS-MINERALS [id number] Tj Boswell MULTIPLE VITAMINS-MINERALS (1 source) Start: 12-30-2013 PRESERVISION A REDS TABS as directed MULTIPLE VITAMINS-MINERALS [id number] Tj Boswell Bc-Cz-Vh-Vit O-Hisng-Uayi-Ze ax (20 sources) Start: 09-03-2016 End: 05-05-2019 To-Yf-Cs-Vit D-Percr-Ieuk-Ze ax Discontinued 1 EACH PO September 03, 2016 4:57pm May 05, 2019 3:43pm Start: 09-03-2016 End: 05-05-2019 Ef-Ng-By-Vit T-Ymqug-Nqho-Ze ax Discontinued 1 EACH PO September 02, 2016 11:00pm May 05, 2019 2:43pm Start: 09-03-2016 End: 05-05-2019 Ev-Uc-Ac-Vit S-Kxzmv-Yrqo-Ze ax Discontinued 1 EACH PO September 03, 2016 12:00am May 05, 2019 3:43pm Ns-Yn-Qt-Vit N-Eujlb-Tdjk-Ze ax 1 EACH tablet (3 sources) Start: 09-03-2016 End: 05-05-2019 Wv-No-Qt-Vit E-Rjgwx-Ojws-Ze ax 1 EACH tablet Discontinued 1 NMA PO September 03, 2016 12:00am May 05, 2019 3:43pm Start: 09-03-2016 End: 05-05-2019 Al-Qs-Dl-Vit Q-Gxfbj-Weyx-Ze ax 1 EACH tablet Discontinued 1 NMA PO September 02, 2016 11:00pm May 05, 2019 2:43pm omeprazole 20 mg delayed release oral capsule (20 sources) Proton Pump Inhibitor Start: 12-30-2013 End: 03-31-2024 take 1 capsule by mouth once daily Omeprazole 20 MG capsule Discontinued 20 mg PO DAILY September 19, 2014 12:00am March 31, 2024 12:45pm rivaroxaban 20 mg oral tablet (18 sources) Factor Xa Inhibitor Start: 04-30-2022 End: 06-19-2022 take 1 tablet by mouth once daily at dinner Rivaroxaban (Xarelto) 20 mg tablet Discontinued 20 mg PO DAILY April 30, 2022 1:00am June 19, 2022 11:59am must administer with evening meal tamsulosin hydrochloride 0.4 mg oral capsule (20 sources) alpha-Adrenergic Juvencio Start: 02-04-2022 End: 07-11-2023 take 1 capsule by mouth at bedtime Tamsulosin (Flomax) 0.4 mg Capsule Discontinued 0.4 mg PO AT BEDTIME February 04, 2022 12:00am July 11, 2023 12:11pm Start: 12-07-2021 End: 01-24-2022 take 1 capsule by mouth at bedtime Tamsulosin 0.4 mg capsule Discontinued 0.4 mg PO AT BEDTIME December 07, 2021 12:00am January 24, 2022 1:09pm traMADol hydrochloride 50 mg oral tablet (20 sources) Opioid Agonist Start: 06-08-2016 End: 06-08-2016 take 1 tablet by mouth every six hours as needed for pain Tramadol 50 MG tablet Discontinued 50 mg PO EVERY 6 HOURS NEEDED as needed for Pain June 08, 2016 1:00am June 08, 2016 8:19am Problems Active Problems Problem Classification Problem Date Documented Da te Episodic/Chronic Aortic; peripheral; and visceral artery aneurysms (8 sources) Aortic aneurysm; Translations: [Aortic aneurysm of unspecified site, without rupture] 07-11-2023 Chronic Cardiac dysrhythmias (20 sources) Paroxysmal atrial fibrillation; Translations: [Persistent atrial fibrillation] Onset: 05-26-2014 05-26-2014 Chronic Cardiac dysrhythmias (20 sources) Tachycardia, unspecified; Translations: [Bradycardia] Onset: 05-25-2014 05-25-2014 Episodic Chronic kidney disease (20 sources) Chronic kidney disease stage 3; Translations: [Chronic renal insufficiency, stage III (moderate)] Chronic Chronic kidney disease (2 sources) Chronic kidney disease; Translations: [Chronic kidney disease, stage 3a] Onset: 11-18-2023 Conduction disorders (20 sources) Left anterior fascicular block; Translations: [Right bundle branch block] Onset: 01-14-2017 01-14-2017 Chronic Diabetes mellitus with complications (2 sources) Type 2 diabetes mellitus with hyperglycemia; Translations: [Type 2 diabetes mellitus with diabetic nephropathy] Onset: 10-19-2024 Chronic Diabetes mellitus without complication (3 sources) Diabetes mellitus; Translations: [Type 2 diabetes mellitus without complications] Onset: 05-25-2014 05-25-2014 Chronic Disorders of lipid metabolism (20 sources) Hyperlipidemia; Translations: [Hyperlipidemia, unspecified] Onset: 05-31-2014 05-31-2014 Chronic E Codes: Fall (5 sources) Fall; Translations: [Unspecified fall, initial encounter] Episodic Essential hypertension (20 sources) Hypertensive disorder; Translations: [Essential hypertension] Onset: 05-25-2014 05-25-2014 Chronic Fluid and electrolyte disorders (20 sources) Hyponatremia; Translations: [Hypo-osmolality and hyponatremia] Onset: 03-13-2024 Episodic Heart valve disorders (20 sources) Tricuspid incompetence, non-rheumatic ; Translations: [Nonrheumatic tricuspid (valve) insufficiency] 12-31-2018 Chronic Malaise and fatigue (20 sources) Asthenia; Translations: [Weakness] Onset: 05-29-2024 Episodic Nonmalignant breast conditions (20 sources) Breast lump; Translations: [Unspecified lump in the left breast, unspecified quadrant] Episodic Nutritional deficiencies (1 source) Vitamin D deficiency, unspecified; Translations: [Vitamin D deficiency, unspecified] Onset: 10-22-2024 Chronic Open wounds of extremities (4 sources) Laceration of left lower leg; Translations: [Laceration without foreign body, left lower leg, initial encounter] Onset: 07-17-2024 07-11-2024 Episodic Other and ill-defined heart disease (20 sources) Left ventricular diastolic dysfunction ; Translations: [Heart disease, unspecified] 02-09-2019 Chronic Other and ill-defined heart disease (4 sources) Heart disease, unspecified; Translations: [Heart disease, unspecified] 10-02-2022 Chronic Other circulatory disease (2 sources) H/O: heart failure; Translations: [Personal history of other diseases of the circulatory system] Episodic Other circulatory disease (2 sources) Personal history of other diseases of the circulatory system; Translations: [Personal history of other diseases of circulatory system] Episodic Other gastrointestinal disorders (20 sources) Diarrhea; Translations: [Diarrhea, unspecified] 12-31-2018 Episodic Other injuries and conditions due to external causes (1 source) Closed injury of head; Translations: [Unspecified injury of head, initial encounter] Episodic Other injuries and conditions due to external causes (1 source) Unspecified injury of head, initial encounter; Translations: [Head injury, unspecified] Episodic Other lower respiratory disease (20 sources) Dyspnea; Translations: [Dyspnea, unspecified] Onset: 05-25-2014 05-25-2014 Episodic Other lower respiratory disease (20 sources) Dyspnea on exertion; Translations: [Other forms of dyspnea] 12-27-2021 Episodic Other lower respiratory disease (20 sources) Orthopnea; Translations: [Orthopnea] 12-27-2021 Episodic Other lower respiratory disease (9 sources) Shortness of breath; Translations: [Shortness of breath] Episodic Other nutritional; endocrine; and metabolic disorders (8 sources) Body mass index (BMI) 30.0-30.9, adult; Translations: [Body mass index (BMI) 31.0-31.9, adult] Onset: 05-26-2014 Resolved: 11-23-2015 07-06-2014 Chronic Other nutritional; endocrine; and metabolic disorders (1 source) Body mass index (BMI) 31.0-31.9, adult; Translations: [Body mass index (BMI) 31.0-31.9, adult] Onset: 05-26-2014 05-26-2014 Chronic Syncope (2 sources) Syncope and collapse; Translations: [Syncope and collapse] Episodic Unclassified (1 source) Long-term drug therapy; Translations: [Long-term (current) use of other medications] Onset: 05-31-2014 05-31-2014 Past or Other Problems Problem Classification Problem Date Documented Date Episodic/Chronic Other aftercare (2 sources) Long-term (current) use of other medications; Translations: [Long-term (current) use of other medications] Onset: 05-31-2014 05-31-2014 Episodic Other connective tissue disease (5 sources) Ganglion, unspecified site; Translations: [Pain in unspecified hand] Onset: 12-30-2013 12-30-2013 Episodic Other connective tissue disease (1 source) Pain in unspecified hand; Translations: [Pain in unspecified hand] Onset: 12-30-2013 12-30-2013 Episodic Other nervous system disorders (1 source) Other abnormalities of gait and mobility; Translations: [Other abnormalities of gait and mobility] Onset: 02-20-2024 Episodic Other nutritional; endocrine; and metabolic disorders (5 sources) Body mass index (BMI) 28.0-28.9, adult; Translations: [Body mass index (BMI) 29.0-29.9, adult] Onset: 11-09-2014 11-23-2015 Episodic Other nutritional; endocrine; and metabolic disorders (1 source) Body mass index (BMI) 29.0-29.9, adult; Translations: [Body mass index (BMI) 29.0-29.9, adult] Onset: 11-09-2014 11-09-2014 Episodic Skin and subcutaneous tissue infections (1 source) Cellulitis of left lower limb; Translations: [Cellulitis of left lower limb] Onset: 07-23-2024 Episodic Unclassified (4 sources) Preoperative cardiovascular examination ; Translations: [Encounter for preprocedural cardiovascular examination] Onset: 09-28-2014 Resolved: 05-25-2016 09-28-2014 Results Test Name Value Interpretation Reference Range Facility Absolute lymphocyte countOrd ered By: Bernard Nugent on 10-22-2024 Lymphocytes Auto (Unsp spec) [#/Vol] 0.95 10*3/uL 0.83-4.51 [facility] Absolute neutrophil countOrd ered By: Bernard Nugent on 10-22-2024 Neutrophils (Bld) [#/Vol] 9.8 10*3/uL High 2.0-7.7 [facility] Anion gap in Serum or Plasma Ordered By: Bernard Nugent on 10-22-2024 Anion gap [Moles/Vol] 13 mmol/L 5-15 [facility] Automated lymphocyte count a s percentage of total leukocytesOrdered By: Bernard Nugent on 10-22-2024 Lymphocytes/100 WBC Auto (Unsp spec) 7.8 % Low 19-41 [facility] BUN/creatinine ratioOrdered By: Bernard Nugent on 10-22-2024 Urea nitrogen/Creatinine [Mass ratio] 9.4 mg/mg Low 10-20 [facility] Basophil percentageOrdered B y: Bernard Nugent on 10-22-2024 Basophils/100 WBC (Bld) 0.6 % 0-1 [facility] Bilirubin, totalOrdered By: Bernard Nugent on 10-22-2024 Bilirubin [Mass/Vol] 2.40 mg/dL High 0.00-1.30 [facility] CBC W/Diff, Automatedon 06-0 -2024 Absolute Lymph 0.95 X10 3/uL Normal 0.83-4.51 [facility] Comment on above: Performed By: #### L [id number], L500.4100, L501.9985, L100.0100, L500.4050, L506.1000 #### [facility] [address] [place], [address] Absolute Neut 9.8 X10 3/uL High 2.0-7.7 [facility] Comment on above: Performed By: #### L [id number], L500.4100, L501.9985, L100.0100, L500.4050, L506.1000 #### [facility] [address] [place], [address] Basophils/100 WBC (Bld) 0.6 % Normal 0-1 [facility] Comment on above: Performed By: #### L [id number], L500.4100, L501.9985, L100.0100, L500.4050, L506.1000 #### [facility] [address] [place], [address] Eosinophils/100 WBC (Bld) 1.8 % Normal 0-5 [facility] Comment on above: Performed By: #### L [id number], L500.4100, L501.9985, L100.0100, L500.4050, L506.1000 #### [facility] [address] [place], [address] Erythrocyte distribution width (RBC) [Ratio] 13.2 % Normal 11.6-14.6 [facility] Comment on above: Performed By: #### L [id number], L500.4100, L501.9985, L100.0100, L500.4050, L506.1000 #### [facility] [address] [place], [address] Hematocrit (Bld) [Volume fraction] 38.4 % Low 40-54 [facility] Comment on above: Performed By: #### L [id number], L500.4100, L501.9985, L100.0100, L500.4050, L506.1000 #### [facility] [address] [place], [address] Hemoglobin (Bld) [Mass/Vol] 13.3 g/dL Normal 13.0-16.5 [facility] Comment on above: Performed By: #### L [id number], L500.4100, L501.9985, L100.0100, L500.4050, L506.1000 #### [facility] [address] [place], [address] IG% 1.000 High 0.0-0.9 [facility] Comment on above: Result Comment: IG% - Immature Granulocytes (promyelocytes, myelocytes and metamyelocytes) > 1% indicates that a LEFT SHIFT is Present. Performed By: #### L 501.9520, L500.4100, L501.9985, L100.0100, L500.4050, L506.1000 #### [facility] [address] [place], [address] Lymphocytes/100 WBC (Bld) 7.8 % Low 19-41 [facility] Comment on above: Performed By: #### L [id number], L500.4100, L501.9985, L100.0100, L500.4050, L506.1000 #### [facility] [address] [place], [address] MCH (RBC) [Entitic mass] 31.1 pg Normal 27.0-32.0 [facility] Comment on above: Performed By: #### L [id number], L500.4100, L501.9985, L100.0100, L500.4050, L506.1000 #### [facility] [address] [place], [address] MCHC (RBC) [Mass/Vol] 34.6 g/dL Normal 32-36 [facility] Comment on above: Performed By: #### L [id number], L500.4100, L501.9985, L100.0100, L500.4050, L506.1000 #### [facility] [address] [place], [address] MCV (RBC) [Entitic vol] 89.7 fL Normal 80-94 [facility] Comment on above: Performed By: #### L [id number], L500.4100, L501.9985, L100.0100, L500.4050, L506.1000 #### [facility] [address] [place], [address] Monocytes/100 WBC (Bld) 9.0 % Normal 0-10 [facility] Comment on above: Performed By: #### L 501.9520, L500.4100, L501.9985, L100.0100, L500.4050, L506.1000 #### [facility] [address] [place], [address] Neutrophils/100 WBC (Bld) 79.8 % High 47-70 [facility] Comment on above: Performed By: #### L 501.9520, L500.4100, L501.9985, L100.0100, L500.4050, L506.1000 #### [facility] [address] [place], [address] Nucleated RBC (Bld) [#/Vol] 0 10*3/uL Normal 0-5 [facility] Comment on above: Performed By: #### L 501.9520, L500.4100, L501.9985, L100.0100, L500.4050, L506.1000 #### [facility] [address] [place], [address] Platelet mean volume (Bld) [Entitic vol] 10.6 fL Normal 6.2-12.0 [facility] Comment on above: Performed By: #### L 501.9520, L500.4100, L501.9985, L100.0100, L500.4050, L506.1000 #### [facility] [address] [place], [address] Platelets (Bld) [#/Vol] 285 10*3/uL Normal 150-450 [facility] Comment on above: Performed By: #### L [id number], L500.4100, L501.9985, L100.0100, L500.4050, L506.1000 #### [facility] [address] [place], [address] RBC (Bld) [#/Vol] 4.28 10*6/uL Low 4.6-6.2 [facility] Comment on above: Performed By: #### L 501.9520, L500.4100, L501.9985, L100.0100, L500.4050, L506.1000 #### [facility] [address] [place], [address] RDW SD 43.7 fl Normal 35.1-43.9 [facility] Comment on above: Performed By: #### L 501.9520, L500.4100, L501.9985, L100.0100, L500.4050, L506.1000 #### [facility] [address] [place], [address] WBC (Bld) [#/Vol] 12.2 10*3/uL High 4.4-11.0 [facility] Comment on above: Performed By: #### L 501.9520, L500.4100, L501.9985, L100.0100, L500.4050, L506.1000 #### [facility] [address] [place], [address] Calculated very low density lipoprotein (VLDL) cholesterol measurementOrdered By: Bernard Nugent on 10-22-2024 Calculated very low density lipoprotein (VLDL) cholesterol measurement 12 mg/dL 5-40 [facility] Carbon dioxide, total [Moles /volume] in Central venous bloodOrdered By: Bernard Nugent on 10-22-2024 CO2 [Moles/Vol] 21.3 mmol/L 21.0-32.0 [facility] Chloride assayOrdered By: Vick Nugent on 10-22-2024 Chloride [Moles/Vol] 97 mmol/L Low 98-108 [facility] Comprehensive Metabolic Prof ilon 10-22-2024 Albumin [Mass/Vol] 3.8 g/dL Normal 3.4-4.8 [facility] Comment on above: Performed By: #### L 501.9520, L500.4100, L501.9985, L100.0100, L500.4050, L506.1000 #### [facility] [address] [place], [address] Albumin/Globulin [Mass ratio] 1.4 {ratio} Normal 0.9-2.4 [facility] Comment on above: Performed By: #### L 501.9520, L500.4100, L501.9985, L100.0100, L500.4050, L506.1000 #### [facility] [address] [place], [address] ALK PHOS 174 U/L High 40-129 [facility] Comment on above: Performed By: #### L 501.9520, L500.4100, L501.9985, L100.0100, L500.4050, L506.1000 #### [facility] [address] [place], [address] ALT [Catalytic activity/Vol] 18 U/L Normal <=46 [facility] Comment on above: Performed By: #### L 501.9520, L500.4100, L501.9985, L100.0100, L500.4050, L506.1000 #### [facility] [address] [place], [address] AST [Catalytic activity/Vol] 21 U/L Normal <=37 [facility] Comment on above: Performed By: #### L 501.9520, L500.4100, L501.9985, L100.0100, L500.4050, L506.1000 #### [facility] [address] [place], [address] Bilirubin [Mass/Vol] 2.40 mg/dL High 0.00-1.30 [facility] Comment on above: Performed By: #### L 501.9520, L500.4100, L501.9985, L100.0100, L500.4050, L506.1000 #### [facility] [address] [place], [address] BUN/CRE 9.4 RATIO Low 10-20 [facility] Comment on above: Performed By: #### L 501.9520, L500.4100, L501.9985, L100.0100, L500.4050, L506.1000 #### [facility] [address] [place], [address] Calcium [Mass/Vol] 8.7 mg/dL Normal 7.6-11.0 [facility] Comment on above: Performed By: #### L 501.9520, L500.4100, L501.9985, L100.0100, L500.4050, L506.1000 #### [facility] [address] [place], [address] Chloride [Moles/Vol] 97 mmol/L Low 98-108 [facility] Comment on above: Performed By: #### L 501.9520, L500.4100, L501.9985, L100.0100, L500.4050, L506.1000 #### [facility] [address] [place], [address] CO2 [Moles/Vol] 21.3 mmol/L Normal 21.0-32.0 [facility] Comment on above: Performed By: #### L 501.9520, L500.4100, L501.9985, L100.0100, L500.4050, L506.1000 #### [facility] [address] [place], [address] Creatinine [Mass/Vol] 1.22 mg/dL High 0.70-1.20 [facility] Comment on above: Performed By: #### L 501.9520, L500.4100, L501.9985, L100.0100, L500.4050, L506.1000 #### [facility] [address] [place], [address] GAP 13 Normal 5-15 [facility] Comment on above: Performed By: #### L 501.9520, L500.4100, L501.9985, L100.0100, L500.4050, L506.1000 #### [facility] [address] [place], [address] GFR/1.73 sq M.predicted among non-blacks MDRD (S/P/Bld) [Vol rate/Area] 57 mL/min/{1.73_m2} Low >60 [facility] Comment on above: Result Comment: mL/m in/1.73m2 CKD-EPI Creatinine Equation (2020) Performed By: #### L 501.9520, L500.4100, L501.9985, L100.0100, L500.4050, L506.1000 #### [facility] [address] [place], [address] Globulin (S) [Mass/Vol] 2.7 g/dL Normal 2.2-4.2 [facility] Comment on above: Performed By: #### L 501.9520, L500.4100, L501.9985, L100.0100, L500.4050, L506.1000 #### [facility] [address] [place], [address] Glucose [Mass/Vol] 137 mg/dL High 70-99 [facility] Comment on above: Performed By: #### L 501.9520, L500.4100, L501.9985, L100.0100, L500.4050, L506.1000 #### [facility] [address] [place], [address] Potassium [Moles/Vol] 4.4 mmol/L Normal 3.3-5.1 [facility] Comment on above: Performed By: #### L 501.9520, L500.4100, L501.9985, L100.0100, L500.4050, L506.1000 #### [facility] [address] [place], [address] Sodium [Moles/Vol] 132 mmol/L Low 133-145 [facility] Comment on above: Performed By: #### L 501.9520, L500.4100, L501.9985, L100.0100, L500.4050, L506.1000 #### [facility] [address] [place], [address] T PROT 6.5 g/dL Normal 5.9-8.4 [facility] Comment on above: Performed By: #### L 501.9520, L500.4100, L501.9985, L100.0100, L500.4050, L506.1000 #### [facility] [address] [place], [address] Urea nitrogen [Mass/Vol] 12 mg/dL Normal 4-19 [facility] Comment on above: Performed By: #### L 501.9520, L500.4100, L501.9985, L100.0100, L500.4050, L506.1000 #### [facility] [address] [place], [address] Eosinophil percentageOrdered By: Bernard Nugent on 10-22-2024 Eosinophils/100 WBC (Bld) 1.8 % 0-5 [facility] Erythrocyte distribution wid th ratioOrdered By[facility] Erythrocyte distribution width (RBC) [Ratio] 13.2 % 11.6-14.6 [facility] Erythrocyte distribution wid th standard deviationOrdered By: [facility] on 10-22-2024 Erythrocyte distribution width (RBC) [Ratio] 43.7 fl 35.1-43.9 [facility] Glomerular filtration rate ( GFR) estimation/1.73 sq m using serum, plasma, or whole bOrdered By: [facility] on 10-22-2024 GFR/1.73 sq M.predicted among non-blacks MDRD (S/P/Bld) [Vol rate/Area] 57 mL/min/{1.73_m2} Low >60 [facility] Comment on above: mL/min/1.73m2 CKD-EP I Creatinine Equation (2020) Hematocrit Auto (Bld) [Volum e fraction]Ordered By: Bernard Nugent on 10-22-2024 Hematocrit (Bld) [Volume fraction] 38.4 % Low 40-54 [facility] Hemoglobin A1con 10-22-2024 HbA1c (Bld) [Mass fraction] 6.2 % High <=5.6 [facility] Comment on above: Order Comment: ADD O N-TIFF Result Comment: Norm al < 5.7 % Prediabetic 5.7 - 6.4 % Diabetic >or= 6.5 % Please note range changes. Performed By: #### L 501.9520, L500.4100, L501.9985, L100.0100, L500.4050, L506.1000 #### [facility] [address] [place], [address] Hemoglobin A1c percentageOrd ered By: Bernard Nugent on 10-22-2024 HbA1c (Bld) [Mass fraction] 6.2 % High <5.7 [facility] Comment on above: Normal < 5.7 % Predi abetic 5.7 - 6.4 % Diabetic >or= 6.5 % Please note range changes. Hemoglobin measurementOrdere d By: Bernard Nugent on 10-22-2024 Hemoglobin (Bld) [Mass/Vol] 13.3 g/dL 13.0-16.5 [facility] Immature granulocytes/100 WB C Auto (Bld)Ordered By: Bernard Nugent on 10-22-2024 Immature granulocytes/100 WBC (Bld) 1.000 % High 0.0-0.9 [facility] Comment on above: IG% - Immature Granu locytes (promyelocytes, myelocytes and metamyelocytes) > 1% indicates that a LEFT SHIFT is Present. LDL calc ser/plasOrdered By: Bernard Nugent on 10-22-2024 Cholesterol in LDL [Mass/Vol] 33 mg/dL [facility] Comment on above: Ujrmlojfzl=854-756 m g/dL & Higher Zvyf=999 mg/dL or greater Laboratory - Chemistry and C hemistry - challengeOrdered By: Bernard Nugent on 10-22-2024 AST [Catalytic activity/Vol] 21 U/L <38 [facility] Lipid Profileon 10-22-2024 CHOL:HDL 1.92 Normal [facility] Comment on above: Performed By: #### L 501.9520, L500.4100, L501.9985, L100.0100, L500.4050, L506.1000 #### [facility] [address] [place], [address] Cholesterol [Mass/Vol] 95 mg/dL Normal <=200 [facility] Comment on above: Result Comment: Chol esterol level, Desirable <200 mg/dL Borderline high cholesterol 200-239 mg/dL High cholesterol >=240 mg/dL Recommendations of the NCEP Adult Treatment Panel for the following risk-cutoff thresholds for the [place] population. Performed By: #### L 501.9520, L500.4100, L501.9985, L100.0100, L500.4050, L506.1000 #### [facility] [address] [place], [address] Cholesterol in HDL [Mass/Vol] 49 mg/dL Normal [facility] Comment on above: Result Comment: Isis onal Cholesterol Education Program (NCEP) guidelines: <40 mg/dL: Low HDL-cholesterol (major risk factor for CHD) >= 60 mg/dL: High HDL-cholesterol (negative risk factor for CHD) HDL-cholesterol is affected by a number of factors, e.g. smoking, exercise, hormones, sex and age. Performed By: #### L 501.9520, L500.4100, L501.9985, L100.0100, L500.4050, L506.1000 #### [facility] [address] [place], [address] Cholesterol in LDL [Mass/Vol] 33 mg/dL Normal [facility] Comment on above: Result Comment: Bord zmwinq=320-428 mg/dL Higher Inid=970 mg/dL or greater Performed By: #### L 501.9520, L500.4100, L501.9985, L100.0100, L500.4050, L506.1000 #### [facility] [address] [place], [address] Cholesterol in VLDL [Mass/Vol] 12 mg/dL Normal 5-40 [facility] Comment on above: Performed By: #### L 501.9520, L500.4100, L501.9985, L100.0100, L500.4050, L506.1000 #### [facility] [address] [place], [address] Triglyceride [Mass/Vol] 61 mg/dL Normal [facility] Comment on above: Result Comment: The drugs N-Acetylcysteine and Metamizole may falsely depress this assay. Normal range: <150 mg/dL Borderline High: 150-199 mg/dL High: 200-499 mg/dL Very High: >500 mg/dL Performed By: #### L 501.9520, L500.4100, L501.9985, L100.0100, L500.4050, L506.1000 #### [facility] [address] [place], [address] MCV (mean corpuscular volume ) determinationOrdered By: Bernard Nugent on 10-22-2024 MCV (RBC) [Entitic vol] 89.7 fL 80-94 [facility] Mean corpuscular hemoglobin (MCH) determinationOrdered By: Bernard Nugent 10-22-2024 MCH (RBC) [Entitic mass] 31.1 pg 27.0-32.0 [facility] Mean corpuscular hemoglobin concentration (MCHC) determinationOrdered By: Bernard Nugent 10-22-2024 MCHC (RBC) [Mass/Vol] 34.6 g/dL 32-36 [facility] Mean platelet volume determi nationOrdered By: Bernard Nugent on 10-22-2024 Platelet mean volume (Bld) [Entitic vol] 10.6 fL 6.2-12.0 [facility] Monocyte percentageOrdered B y: Bernard Nugent 10-22-2024 Monocytes/100 WBC (Bld) 9.0 % 0-10 [facility] Neutrophil percentageOrdered By: Bernard Nugent 10-22-2024 Neutrophils/100 WBC (Bld) 79.8 % High 47-70 [facility] Nucleated red blood cell per centageOrdered By: Bernard Nugent 10-22-2024 Nucleated RBC/100 WBC (Bld) [Ratio] 0 % 0-5 [facility] Platelet countOrdered By: Vick Nugent on 10-22-2024 Platelets (Bld) [#/Vol] 285 10*3/uL 150-450 [facility] Potassium measurement (mass/ volume)Ordered By: Bernard Nugent 10-22-2024 Potassium (Unsp spec) [Mass/Vol] 4.4 mmol/L 3.3-5.1 [facility] RBC Auto (Bld) [#/Vol]Ordere d By: Bernard Nugent on 10-22-2024 RBC (Bld) [#/Vol] 4.28 10*6/uL Low 4.6-6.2 [facility] Screening total cholesterol/ high density lipoprotein (HDL) cholesterol ratioOrdered By: Bernard Nugent on 10-22-2024 Cholesterol.total/Choles terol in HDL [Mass ratio] 1.92 {ratio} [facility] Serum creatinine measurement (mass/volume)Ordered By: Bernard Nugent on 10-22-2024 Creatinine [Mass/Vol] 1.22 mg/dL High 0.70-1.20 [facility] Serum globulin measurementOr dered By: Bernard Nugent on 10-22-2024 Globulin (S) [Mass/Vol] 2.7 g/dL 2.2-4.2 [facility] Serum glucose measurement (m ass/volume)Ordered By: Bernard Nugent 10-22-2024 Glucose [Mass/Vol] 137 mg/dL High 70-99 [facility] Serum or plasma alanine erickson otransferase (ALT) measurementOrdered By: Bernard Nugent 10-22-2024 ALT [Catalytic activity/Vol] 18 U/L <47 [facility] Serum or plasma albumin sita urement (mass/volume)Ordered By: Bernard Nugent 10-22-2024 Albumin [Mass/Vol] 3.8 g/dL 3.4-4.8 [facility] Serum or plasma albumin/glob ulin mass ratioOrdered By: Bernard Nugent 10-22-2024 Albumin/Globulin [Mass ratio] 1.4 {ratio} 0.9-2.4 [facility] Serum or plasma alkaline florencia sphatase measurementOrdered By: Bernard Nugent 10-22-2024 ALP [Catalytic activity/Vol] 174 U/L High 40-129 [facility] Serum or plasma calcium sita urement (mass/volume)Ordered By: Bernard Nugent 10-22-2024 Calcium [Mass/Vol] 8.7 mg/dL 7.6-11.0 [facility] Serum or plasma cholesterol in HDL measurement (mass/volume)Ordered By: Bernard Nugent 10-22-2024 Cholesterol in HDL [Mass/Vol] 49 mg/dL >40 [facility] Comment on above: National Cholesterol Education Program (NCEP) guidelines:<40 mg/dL: Low HDL-cholesterol (major risk factor for CHD)>= 60 mg/dL: High HDL-cholesterol (negative risk factor for CHD)HDL-cholesterol is affected by a number of factors, e.g. smoking, exercise, hormones, sex and age. Serum or plasma cholesterol measurement (mass/volume)Ordered By: Bernard Nugent on 10-22-2024 Cholesterol [Mass/Vol] 95 mg/dL <201 [facility] Comment on above: Cholesterol level, D esirable <200 mg/dLBorderline high cholesterol 200-239 mg/dLHigh cholesterol >=240 mg/dLRecommendations of the NCEP Adult Treatment Panel for the following risk-cutoff thresholds for the [place] population. Serum or plasma urea nitroge n measurement (mass/volume)Ordered By: Bernard Nugent on 10-22-2024 Urea nitrogen [Mass/Vol] 12 mg/dL 4-19 [facility] Sodium levelOrdered By: Bernard Nugent on 10-22-2024 Sodium [Moles/Vol] 132 mmol/L Low 133-145 [facility] TSH DL <= 0.005 mIU/L QnOrde red By: Bernard Nugent on 10-22-2024 TSH Qn 2.130 uIU/mL 0.300-4.200 [facility] Thyroid Stim Hormone (TSH)on 10-22-2024 TSH 2.130 uIU/mL Normal 0.300-4.200 [facility] Comment on above: Performed By: #### L 501.9520, L500.4100, L501.9985, L100.0100, L500.4050, L506.1000 #### [facility] [address] [place], [address] Total proteinOrdered By: Bernard Nugent on 10-22-2024 Protein [Mass/Vol] 6.5 g/dL 5.9-8.4 [facility] Triglycerides measurementOrd ered By: Bernard Nugent on 10-22-2024 Triglyceride [Mass/Vol] 61 mg/dL <199 [facility] Comment on above: The drugs N-Acetylcy steine and Metamizole may falsely depress this assay. Normal range: <150 mg/dLBorderline High: 150-199 mg/dLHigh: 200-499 mg/dLVery High: >500 mg/dL Vitamin D,25 Hydroxyon 10-22 Vitamin D 25-OH 20.9 ng/mL Low 30-100 [facility] Comment on above: Result Comment: Mary min D Status Deficiency: <20 ng/mL (50nmol/L) Insufficiency: 20-30 ng/mL (50-75 nmol/L) Sufficiency: 30-100 ng/mL (75-250 nmol/L) Toxicity: >100 ng/mL (>250 nmol/L) Performed By: #### L 501.9520, L500.4100, L501.9985, L100.0100, L500.4050, L506.1000 #### [facility] [address] [place], [address] White blood cell (WBC) count Ordered By: Bernard Nugent on 10-22-2024 WBC (Bld) [#/Vol] 12.2 10*3/uL High 4.4-11.0 [facility] Absolute lymphocyte countOrd ered By: Bernard Nugent on 07-27-2024 Lymphocytes Auto (Unsp spec) [#/Vol] 0.92 10*3/uL 0.83-4.51 [facility] Absolute neutrophil countOrd ered By: Bernard Nugent on 07-27-2024 Neutrophils (Bld) [#/Vol] 4.5 10*3/uL 2.0-7.7 [facility] Anion gap in Serum or Plasma Ordered By: Bernard Nugent on 07-27-2024 Anion gap [Moles/Vol] 11 mmol/L 5-15 [facility] Automated lymphocyte count a s percentage of total leukocytesOrdered By: Bernard Nugent on 07-27-2024 Lymphocytes/100 WBC Auto (Unsp spec) 14.4 % Low 19-41 [facility] BUN/creatinine ratioOrdered By: Bernard Nugent on 07-27-2024 Urea nitrogen/Creatinine [Mass ratio] 11.5 mg/mg 10-20 [facility] Basophil percentageOrdered B y: Bernard Nugent on 07-27-2024 Basophils/100 WBC (Bld) 0.8 % 0-1 [facility] Bilirubin, totalOrdered By: Bernard Nugent on 07-27-2024 Bilirubin [Mass/Vol] 1.41 mg/dL High 0.00-1.30 [facility] CBC W/Diff, Automatedon 07-18 Absolute Lymph 0.92 X10 3/uL Normal 0.83-4.51 [facility] Comment on above: Performed By: #### L 501.9520, L500.4100, L501.9985, L100.0100, L500.4050, L506.1000 #### [facility] [address] [place], [address] Absolute Neut 4.5 X10 3/uL Normal 2.0-7.7 [facility] Comment on above: Performed By: #### L [id number], L500.4100, L501.9985, L100.0100, L500.4050, L506.1000 #### [facility] [address] [place], [address] Basophils/100 WBC (Bld) 0.8 % Normal 0-1 [facility] Comment on above: Performed By: #### L [id number], L500.4100, L501.9985, L100.0100, L500.4050, L506.1000 #### [facility] [address] [place], [address] Eosinophils/100 WBC (Bld) 3.3 % Normal 0-5 [facility] Comment on above: Performed By: #### L 501.9520, L500.4100, L501.9985, L100.0100, L500.4050, L506.1000 #### [facility] [address] [place], [address] Erythrocyte distribution width (RBC) [Ratio] 13.0 % Normal 11.6-14.6 [facility] Comment on above: Performed By: #### L 501.9520, L500.4100, L501.9985, L100.0100, L500.4050, L506.1000 #### [facility] [address] [place], [address] Hematocrit (Bld) [Volume fraction] 34.5 % Low 40-54 [facility] Comment on above: Performed By: #### L 501.9520, L500.4100, L501.9985, L100.0100, L500.4050, L506.1000 #### [facility] [address] [place], [address] Hemoglobin (Bld) [Mass/Vol] 12.5 g/dL Low 13.0-16.5 [facility] Comment on above: Performed By: #### L 501.9520, L500.4100, L501.9985, L100.0100, L500.4050, L506.1000 #### [facility] [address] [place], [address] IG% 0.600 Normal 0.0-0.9 [facility] Comment on above: Result Comment: IG% - Immature Granulocytes (promyelocytes, myelocytes and metamyelocytes) > 1% indicates that a LEFT SHIFT is Present. Performed By: #### L 501.9520, L500.4100, L501.9985, L100.0100, L500.4050, L506.1000 #### [facility] [address] [place], [address] Lymphocytes/100 WBC (Bld) 14.4 % Low 19-41 [facility] Comment on above: Performed By: #### L 501.9520, L500.4100, L501.9985, L100.0100, L500.4050, L506.1000 #### [facility] [address] [place], [address] MCH (RBC) [Entitic mass] 31.9 pg Normal 27.0-32.0 [facility] Comment on above: Performed By: #### L 501.9520, L500.4100, L501.9985, L100.0100, L500.4050, L506.1000 #### [facility] [address] [place], [address] MCHC (RBC) [Mass/Vol] 36.2 g/dL High 32-36 [facility] Comment on above: Performed By: #### L 501.9520, L500.4100, L501.9985, L100.0100, L500.4050, L506.1000 #### [facility] [address] [place], [address] MCV (RBC) [Entitic vol] 88.0 fL Normal 80-94 [facility] Comment on above: Performed By: #### L 501.9520, L500.4100, L501.9985, L100.0100, L500.4050, L506.1000 #### [facility] [address] [place], [address] Monocytes/100 WBC (Bld) 11.0 % High 0-10 [facility] Comment on above: Performed By: #### L 501.9520, L500.4100, L501.9985, L100.0100, L500.4050, L506.1000 #### [facility] [address] [place], [address] Neutrophils/100 WBC (Bld) 69.9 % Normal 47-70 [facility] Comment on above: Performed By: #### L 501.9520, L500.4100, L501.9985, L100.0100, L500.4050, L506.1000 #### [facility] [address] [place], [address] Nucleated RBC (Bld) [#/Vol] 0 10*3/uL Normal 0-5 [facility] Comment on above: Performed By: #### L 501.9520, L500.4100, L501.9985, L100.0100, L500.4050, L506.1000 #### [facility] [address] [place], [address] Platelet mean volume (Bld) [Entitic vol] 10.6 fL Normal 6.2-12.0 [facility] Comment on above: Performed By: #### L 501.9520, L500.4100, L501.9985, L100.0100, L500.4050, L506.1000 #### [facility] [address] [place], [address] Platelets (Bld) [#/Vol] 213 10*3/uL Normal 150-450 [facility] Comment on above: Performed By: #### L 501.9520, L500.4100, L501.9985, L100.0100, L500.4050, L506.1000 #### [facility] [address] [place], [address] RBC (Bld) [#/Vol] 3.92 10*6/uL Low 4.6-6.2 [facility] Comment on above: Performed By: #### L 501.9520, L500.4100, L501.9985, L100.0100, L500.4050, L506.1000 #### [facility] [address] [place], [address] RDW SD 42.2 fl Normal 35.1-43.9 [facility] Comment on above: Performed By: #### L 501.9520, L500.4100, L501.9985, L100.0100, L500.4050, L506.1000 #### [facility] [address] [place], [address] WBC (Bld) [#/Vol] 6.4 10*3/uL Normal 4.4-11.0 [facility] Comment on above: Performed By: #### L 501.9520, L500.4100, L501.9985, L100.0100, L500.4050, L506.1000 #### [facility] [address] [place], [place], [id number] Calculated very low density lipoprotein (VLDL) cholesterol measurementOrdered By: Bernard Nugent on 07-27-2024 Calculated very low density lipoprotein (VLDL) cholesterol measurement 15 mg/dL 5-40 [facility] VLDL Cholesterol 15 mg/dL 5-40 [facility] Carbon dioxide, total [Moles /volume] in Central venous bloodOrdered By: Bernard Nugent on 07-27-2024 CO2 [Moles/Vol] 22.3 mmol/L 21.0-32.0 [facility] Chloride assayOrdered By: Vick Nugent on 07-27-2024 Chloride [Moles/Vol] 93 mmol/L Low 98-108 [facility] Comprehensive Metabolic Prof ilon 07-27-2024 Albumin [Mass/Vol] 3.7 g/dL Normal 3.4-4.8 [facility] Comment on above: Performed By: #### L 501.9520, L500.4100, L501.9985, L100.0100, L500.4050, L506.1000 #### [facility] [address] [place], [place], [id number] Albumin/Globulin [Mass ratio] 1.4 {ratio} Normal 0.9-2.4 [facility] Comment on above: Performed By: #### L 501.9520, L500.4100, L501.9985, L100.0100, L500.4050, L506.1000 #### [facility] [address] [place], [address] ALK PHOS 131 U/L High 40-129 [facility] Comment on above: Performed By: #### L 501.9520, L500.4100, L501.9985, L100.0100, L500.4050, L506.1000 #### [facility] [address] [place], [address] ALT [Catalytic activity/Vol] 26 U/L Normal <=46 [facility] Comment on above: Performed By: #### L 501.9520, L500.4100, L501.9985, L100.0100, L500.4050, L506.1000 #### [facility] [address] [place], [address] AST [Catalytic activity/Vol] 35 U/L Normal <=37 [facility] Comment on above: Performed By: #### L 501.9520, L500.4100, L501.9985, L100.0100, L500.4050, L506.1000 #### [facility] [address] [place], [address] Bilirubin [Mass/Vol] 1.41 mg/dL High 0.00-1.30 [facility] Comment on above: Performed By: #### L 501.9520, L500.4100, L501.9985, L100.0100, L500.4050, L506.1000 #### [facility] [address] [place], [address] BUN/CRE 11.5 RATIO Normal 10-20 [facility] Comment on above: Performed By: #### L 501.9520, L500.4100, L501.9985, L100.0100, L500.4050, L506.1000 #### [facility] [address] [place], [address] Calcium [Mass/Vol] 8.4 mg/dL Normal 7.6-11.0 [facility] Comment on above: Performed By: #### L 501.9520, L500.4100, L501.9985, L100.0100, L500.4050, L506.1000 #### [facility] [address] [place], [address] Chloride [Moles/Vol] 93 mmol/L Low 98-108 [facility] Comment on above: Performed By: #### L 501.9520, L500.4100, L501.9985, L100.0100, L500.4050, L506.1000 #### [facility] [address] [place], [address] CO2 [Moles/Vol] 22.3 mmol/L Normal 21.0-32.0 [facility] Comment on above: Performed By: #### L 501.9520, L500.4100, L501.9985, L100.0100, L500.4050, L506.1000 #### [facility] [address] [place], [address] Creatinine [Mass/Vol] 1.23 mg/dL High 0.70-1.20 [facility] Comment on above: Performed By: #### L 501.9520, L500.4100, L501.9985, L100.0100, L500.4050, L506.1000 #### [facility] [address] [place], [address] GAP 11 Normal 5-15 [facility] Comment on above: Performed By: #### L 501.9520, L500.4100, L501.9985, L100.0100, L500.4050, L506.1000 #### [facility] [address] [place], [address] GFR/1.73 sq M.predicted among non-blacks MDRD (S/P/Bld) [Vol rate/Area] 56 mL/min/{1.73_m2} Low >60 [facility] Comment on above: Result Comment: mL/m in/1.73m2 CKD-EPI Creatinine Equation (2020) Performed By: #### L 501.9520, L500.4100, L501.9985, L100.0100, L500.4050, L506.1000 #### [facility] [address] [place], [address] Globulin (S) [Mass/Vol] 2.6 g/dL Normal 2.2-4.2 [facility] Comment on above: Performed By: #### L 501.9520, L500.4100, L501.9985, L100.0100, L500.4050, L506.1000 #### [facility] [address] [place], [address] Glucose [Mass/Vol] 118 mg/dL High 70-99 [facility] Comment on above: Performed By: #### L 501.9520, L500.4100, L501.9985, L100.0100, L500.4050, L506.1000 #### [facility] [address] [place], [address] Potassium [Moles/Vol] 4.5 mmol/L Normal 3.3-5.1 [facility] Comment on above: Performed By: #### L 501.9520, L500.4100, L501.9985, L100.0100, L500.4050, L506.1000 #### [facility] [address] [place], [address] Sodium [Moles/Vol] 126 mmol/L Low 133-145 [facility] Comment on above: Performed By: #### L 501.9520, L500.4100, L501.9985, L100.0100, L500.4050, L506.1000 #### [facility] [address] [place], [address] T PROT 6.3 g/dL Normal 5.9-8.4 [facility] Comment on above: Performed By: #### L 501.9520, L500.4100, L501.9985, L100.0100, L500.4050, L506.1000 #### [facility] [address] [place], [address] Urea nitrogen [Mass/Vol] 14 mg/dL Normal 4-19 [facility] Comment on above: Performed By: #### L 501.9520, L500.4100, L501.9985, L100.0100, L500.4050, L506.1000 #### [facility] [address] [place], [address] Eosinophil percentageOrdered By: Bernard Nugent on 07-27-2024 Eosinophils/100 WBC (Bld) 3.3 % 0-5 [facility] Erythrocyte distribution wid th ratioOrdered By: Bernard Nugent on 07-27-2024 Erythrocyte distribution width (RBC) [Ratio] 13.0 % 11.6-14.6 [facility] Erythrocyte distribution wid th standard deviationOrdered By: Bernard Nugent on 07-27-2024 Erythrocyte distribution width (RBC) [Entitic vol] 42.2 fL 35.1-43.9 [facility] Erythrocyte distribution width (RBC) [Ratio] 42.2 fl 35.1-43.9 [facility] GFR/1.73 sq M.predicted berna g non-blacks MDRD (S/P/Bld) [Vol rate/Area]Ordered By: Bernard Nugent on 07-27-2024 Estimated GFR (MDRD) Non-Af Amer 56 Low >60 [facility] Comment on above: mL/min/1.73m2 CKD-EP I Creatinine Equation (2020) Glomerular filtration rate ( GFR) estimation/1.73 sq m using serum, plasma, or whole bOrdered By: Bernard Nugent 07-27-2024 GFR/1.73 sq M.predicted among non-blacks MDRD (S/P/Bld) [Vol rate/Area] 56 mL/min/{1.73_m2} Low >60 [facility] Comment on above: mL/min/1.73m2 CKD-EP I Creatinine Equation (2020) Hematocrit Auto (Bld) [Volum e fraction]Ordered By: Bernard Nugent on 07-27-2024 Hematocrit (Bld) [Volume fraction] 34.5 % Low 40-54 [facility] Hemoglobin A1con 07-27-2024 HbA1c (Bld) [Mass fraction] 6.6 % Normal <=5.6 [facility] Comment on above: Performed By: #### L 501.9520, L500.4100, L501.9985, L100.0100, L500.4050, L506.1000 #### [facility] [address] [place], [place], [id number] Hemoglobin A1c percentageOrd ered By: Bernard Nugent on 07-27-2024 HbA1c (Bld) [Mass fraction] 6.6 % >5.7 [facility] Hemoglobin measurementOrdere d By: Bernard Nugent on 07-27-2024 Hemoglobin (Bld) [Mass/Vol] 12.5 g/dL Low 13.0-16.5 [facility] Immature granulocytes/100 WB C Auto (Bld)Ordered By: Bernard Nugent on 07-27-2024 Immature granulocytes/100 WBC (Bld) 0.600 % 0.0-0.9 [facility] Comment on above: IG% - Immature Granu locytes (promyelocytes, myelocytes and metamyelocytes) > 1% indicates that a LEFT SHIFT is Present. L506.1001on 07-27-2024 Vitamin D 25-OH 21.6 ng/mL Low 30-100 [facility] Comment on above: Result Comment: Mary min D Status Deficiency: <20 ng/mL (50nmol/L) Insufficiency: 20-30 ng/mL (50-75 nmol/L) Sufficiency: 30-100 ng/mL (75-250 nmol/L) Toxicity: >100 ng/mL (>250 nmol/L) Performed By: #### L 501.9520, L500.4100, L501.9985, L100.0100, L500.4050, L506.1000 #### [facility] [address] [place], [place], [id number] LDL calc ser/plasOrdered By: Bernard Nugent on 07-27-2024 Cholesterol in LDL [Mass/Vol] 22 mg/dL [facility] Comment on above: Cchfnacbhe=196-181 m g/dL & Higher Bkpg=695 mg/dL or greater LDL Cholesterol, Calculated 22 mg/dL [facility] Comment on above: Icbauoxenk=608-597 m g/dL & Higher Pzbx=241 mg/dL or greater Laboratory - Chemistry and C hemistry - challengeOrdered By: Bernard Nugent on 07-27-2024 AST [Catalytic activity/Vol] 35 U/L <38 [facility] Lipid Profileon 07-27-2024 CHOL:HDL 1.59 Normal [facility] Comment on above: Performed By: #### L 501.9520, L500.4100, L501.9985, L100.0100, L500.4050, L506.1000 #### [facility] [address] [place], [place], [id number] Cholesterol [Mass/Vol] 101 mg/dL Normal <=200 [facility] Comment on above: Result Comment: Chol esterol level, Desirable <200 mg/dL Borderline high cholesterol 200-239 mg/dL High cholesterol >=240 mg/dL Recommendations of the NCEP Adult Treatment Panel for the following risk-cutoff thresholds for the [place] population. Performed By: #### L 501.9520, L500.4100, L501.9985, L100.0100, L500.4050, L506.1000 #### [facility] [address] [place], [place], [id number] (246) Cholesterol in HDL [Mass/Vol] 64 mg/dL Normal [facility] Comment on above: Result Comment: Isis onal Cholesterol Education Program (NCEP) guidelines: <40 mg/dL: Low HDL-cholesterol (major risk factor for CHD) >= 60 mg/dL: High HDL-cholesterol (negative risk factor for CHD) HDL-cholesterol is affected by a number of factors, e.g. smoking, exercise, hormones, sex and age. Performed By: #### L 501.9520, L500.4100, L501.9985, L100.0100, L500.4050, L506.1000 #### [facility] [address] [place], [address] Cholesterol in LDL [Mass/Vol] 22 mg/dL Normal [facility] Comment on above: Result Comment: Bord wwmxam=485-651 mg/dL Higher Nwne=478 mg/dL or greater Performed By: #### L 501.9520, L500.4100, L501.9985, L100.0100, L500.4050, L506.1000 #### [facility] [address] [place], [address] Cholesterol in VLDL [Mass/Vol] 15 mg/dL Normal 5-40 [facility] Comment on above: Performed By: #### L 501.9520, L500.4100, L501.9985, L100.0100, L500.4050, L506.1000 #### [facility] [address] [place], [address] Triglyceride [Mass/Vol] 75 mg/dL Normal [facility] Comment on above: Result Comment: The drugs N-Acetylcysteine and Metamizole may falsely depress this assay. Normal range: <150 mg/dL Borderline High: 150-199 mg/dL High: 200-499 mg/dL Very High: >500 mg/dL Performed By: #### L 501.9520, L500.4100, L501.9985, L100.0100, L500.4050, L506.1000 #### [facility] [address] [place], [address] Lymphocytes Auto (Unsp spec) [#/Vol]Ordered By: Bernard Nugent on 07-27-2024 Lymphocytes (Bld) [#/Vol] 0.92 10*3/uL 0.83-4.51 [facility] Lymphocytes/100 WBC Auto (Un sp spec)Ordered By: Bernard Nugent on 07-27-2024 Lymphocytes/100 WBC (Bld) 14.4 % Low 19-41 [facility] MCV (mean corpuscular volume ) determinationOrdered By: Bernard Nugent on 07-27-2024 MCV (RBC) [Entitic vol] 88.0 fL 80-94 [facility] Mean corpuscular hemoglobin (MCH) determinationOrdered By: Bernard Nugent on 07-27-2024 MCH (RBC) [Entitic mass] 31.9 pg 27.0-32.0 [facility] Mean corpuscular hemoglobin concentration (MCHC) determinationOrdered By: Bernard Nugent on 07-27-2024 MCHC (RBC) [Mass/Vol] 36.2 g/dL High 32-36 [facility] Mean platelet volume determi nationOrdered By: Bernard Nugent on 07-27-2024 Platelet mean volume (Bld) [Entitic vol] 10.6 fL 6.2-12.0 [facility] Monocyte percentageOrdered B y: Bernard Nugent on 07-27-2024 Monocytes/100 WBC (Bld) 11.0 % High 0-10 [facility] Neutrophil percentageOrdered By: Bernard Nugent on 07-27-2024 Neutrophils/100 WBC (Bld) 69.9 % 47-70 [facility] Nucleated red blood cell per centageOrdered By: Bernard Nugent on 07-27-2024 Nucleated RBC/100 WBC (Bld) [Ratio] 0 % 0-5 [facility] Platelet countOrdered By: Vick Nugent on 07-27-2024 Platelets (Bld) [#/Vol] 213 10*3/uL 150-450 [facility] Potassium (Unsp spec) [Mass/ Vol]Ordered By: Bernard Nugent on 07-27-2024 Potassium [Moles/Vol] 4.5 mmol/L 3.3-5.1 [facility] Potassium measurement (mass/ volume)Ordered By: Bernard Nugent on 07-27-2024 Potassium (Unsp spec) [Mass/Vol] 4.5 mmol/L 3.3-5.1 [facility] RBC Auto (Bld) [#/Vol]Ordere d By: Bernard Nugent on 07-27-2024 RBC (Bld) [#/Vol] 3.92 10*6/uL Low 4.6-6.2 [facility] Screening total cholesterol/ high density lipoprotein (HDL) cholesterol ratioOrdered By: Bernard Nugent on 07-27-2024 Cholesterol.total/Choles terol in HDL [Mass ratio] 1.59 {ratio} [facility] Serum creatinine measurement (mass/volume)Ordered By: Bernard Nugent on 07-27-2024 Creatinine [Mass/Vol] 1.23 mg/dL High 0.70-1.20 [facility] Serum globulin measurementOr dered By: Bernard Nugent on 07-27-2024 Globulin (S) [Mass/Vol] 2.6 g/dL 2.2-4.2 [facility] Serum glucose measurement (m ass/volume)Ordered By: Bernard Nugent on 07-27-2024 Glucose [Mass/Vol] 118 mg/dL High 70-99 [facility] Serum or plasma alanine erickson otransferase (ALT) measurementOrdered By: Bernard Nugent on 07-27-2024 ALT [Catalytic activity/Vol] 26 U/L <47 [facility] Serum or plasma albumin sita urement (mass/volume)Ordered By: Bernard Nugent on 07-27-2024 Albumin [Mass/Vol] 3.7 g/dL 3.4-4.8 [facility] Serum or plasma albumin/glob ulin mass ratioOrdered By: Bernard Nugent 07-27-2024 Albumin/Globulin [Mass ratio] 1.4 {ratio} 0.9-2.4 [facility] Serum or plasma alkaline florencia sphatase measurementOrdered By: Bernard Nugent 07-27-2024 ALP [Catalytic activity/Vol] 131 U/L High 40-129 [facility] Serum or plasma calcium sita urement (mass/volume)Ordered By: Bernard Nugent 07-27-2024 Calcium [Mass/Vol] 8.4 mg/dL 7.6-11.0 [facility] Serum or plasma cholesterol in HDL measurement (mass/volume)Ordered By: Bernard Nugent on 07-27-2024 Cholesterol in HDL [Mass/Vol] 64 mg/dL >40 [facility] Comment on above: National Cholesterol Education Program (NCEP) guidelines:<40 mg/dL: Low HDL-cholesterol (major risk factor for CHD)>= 60 mg/dL: High HDL-cholesterol (negative risk factor for CHD)HDL-cholesterol is affected by a number of factors, e.g. smoking, exercise, hormones, sex and age. Serum or plasma cholesterol measurement (mass/volume)Ordered By: Bernard Nugent on 07-27-2024 Cholesterol [Mass/Vol] 101 mg/dL <201 [facility] Comment on above: Cholesterol level, D esirable <200 mg/dLBorderline high cholesterol 200-239 mg/dLHigh cholesterol >=240 mg/dLRecommendations of the NCEP Adult Treatment Panel for the following risk-cutoff thresholds for the [place] population. Serum or plasma urea nitroge n measurement (mass/volume)Ordered By: Bernard Nugent on 07-27-2024 Urea nitrogen [Mass/Vol] 14 mg/dL 4-19 [facility] Sodium levelOrdered By: Bernard Nugent on 07-27-2024 Sodium [Moles/Vol] 126 mmol/L Low 133-145 [facility] TSH DL <= 0.005 mIU/L QnOrde red By: Bernard Nugent on 07-27-2024 Thyroid Stimulating Hormone (TSH) 2.460 uIU/mL 0.300-4.200 [facility] TSH Qn 2.460 uIU/mL 0.300-4.200 [facility] Thyroid Stim Hormone (TSH)on 07-27-2024 TSH 2.460 uIU/mL Normal 0.300-4.200 [facility] Comment on above: Performed By: #### L 501.9520, L500.4100, L501.9985, L100.0100, L500.4050, L506.1000 #### [facility] [address] [place], [place], [id number] Total proteinOrdered By: Bernard Nugent on 07-27-2024 Protein [Mass/Vol] 6.3 g/dL 5.9-8.4 [facility] Triglycerides measurementOrd ered By: Bernard Nugent on 07-27-2024 Triglyceride [Mass/Vol] 75 mg/dL <199 [facility] Comment on above: The drugs N-Acetylcy steine and Metamizole may falsely depress this assay. Normal range: <150 mg/dLBorderline High: 150-199 mg/dLHigh: 200-499 mg/dLVery High: >500 mg/dL Vitamin D, 25-hydroxyOrdered By: Bernard Nugent on 07-27-2024 Vitamin D 25-Hydroxy 21.6 ng/mL Low 30-100 [facility] Comment on above: Vitamin D StatusDefi ciency: <20 ng/mL (50nmol/L)Insufficiency: 20-30 ng/mL (50-75 nmol/L)Sufficiency: 30-100 ng/mL (75-250 nmol/L)Toxicity: >100 ng/mL (>250 nmol/L) White blood cell (WBC) count Ordered By: Bernard Nugent on 07-27-2024 WBC (Bld) [#/Vol] 6.4 10*3/uL 4.4-11.0 [facility] Culture, Anaerobic Any Sourc silke 07-15-2024 CUAN LOWER LEFT LEG Bacteria Spec Anaerobe Cult Susceptibility not normally performed on this organism. Schaalia odontolyticus Normal [facility] Comment on above: Performed By: #### L [id number], L500.4100, L501.9985, L100.0100, L500.4050, L506.1000 #### [facility] [address] [place], [address] Wound Cultureon 07-14-2024 WC LOWER LEFT LEG Stenotrophomonas maltophilia Amount Growth 2+ Staphylococcus epidermidis Staphylococcus epidermidis SEPI Stenotrophomonas maltophilia: REACTION Staphylococcus epidermidis TMP SMX Islt CHERRY <=20 Staphylococcus epidermidis: REACTION cefOXitin Susc Islt NEG Doxycycline Islt CHERRY 1 Clindamycin Islt CHERRY >=4 R Clindamycin.induced Susc Islt NEG Erythromycin Islt CHERRY >=8 R Gentamicin Islt CHERRY <=0.5 S Linezolid Islt CHERRY 1 S Oxacillin Susc Islt <=0.25 S Tetracycline Islt CHERRY 2 S TMP SMX Islt CHERRY 80 R Vancomycin Islt CHERRY 2 S Staphylococcus epidermidis: REACTION cefOXitin Susc Islt NEG Doxycycline Islt CHERRY <=0.5 Clindamycin Islt CHERRY >=4 R Clindamycin.induced Susc Islt NEG Erythromycin Islt CHERRY >=8 R Gentamicin Islt CHERRY <=0.5 S Linezolid Islt CHERRY 1 S Oxacillin Susc Islt <=0.25 S Tetracycline Islt CHERRY <=1 S TMP SMX Islt CHERRY <=10 S Vancomycin Islt CHERRY 1 S Normal [facility] Comment on above: Performed By: #### L 501.9520, L500.4100, L501.9985, L100.0100, L500.4050, L506.1000 #### [facility] [address] [facility] [place], [place], [id number] Gram Stainon 07-12-2024 GS LOWER LEFT LEG Test not performed Normal [facility] Comment on above: Performed By: #### L [id number], L500.4100, L501.9985, L100.0100, L500.4050, L506.1000 #### [facility] [address] [facility]. [place], [place], [id number] Anaerobic cultureOrdered By: Bernard Nugent on 07-10-2024 Bacteria identified Anaer cx Nom (Unsp spec) Scha[place] odontolyticus Abnormal [facility] Bacteria identified Anaer cx Nom (Unsp spec)Ordered By: Bernard Nugent on 07-10-2024 Anaerobic Culture Schaalia odontolyticus Abnormal [facility] Anaerobic Culture Scha[place] odontolyticus Abnormal [facility] Gram stainOrdered By: Bernard sky on 07-10-2024 Microscopic observation Gram stain Nom (Unsp spec) [facility] Microscopic observation Gram stain Nom (Unsp spec) [facility] Routine wound cultureOrdered By: Bernard Nugent on 07-10-2024 Wound Culture Stenotrophomonas maltophilia Abnormal [facility] Wound Culture Staphylococcus epidermidis#2 Abnormal [facility] Wound Culture Staphylococcus epidermidis Abnormal [facility] Microbial culture, routine Stenotrophomonas maltophilia Abnormal [facility] Microbial culture, routine Staphylococcus epidermidis#2 Abnormal [facility] Microbial culture, routine Staphylococcus epidermidis Abnormal [facility] Wound Culture Stenotrophomonas maltophilia Abnormal [facility] Wound Culture Staphylococcus epidermidis#2 Abnormal [facility] Wound Culture Staphylococcus epidermidis Abnormal [facility] MRSA Wound DNA by PCRon 06-21 MRSA DNA ASSAY Negative Normal Negative [facility] Comment on above: Order Comment: LOWER LEFT LEGLOWER LEFT LEG Performed By: #### L 501.9520, L500.4100, L501.9985, L100.0100, L500.4050, L506.1000 #### [facility] [address] [facility] [place], [address] SA DNA ASSAY Negative Normal Negative [facility] Comment on above: Order Comment: LOWER LEFT LEGLOWER LEFT LEG Performed By: #### L [id number], L500.4100, L501.9985, L100.0100, L500.4050, L506.1000 #### [facility] [address] [place], [address] MRSA detection PCROrdered By : Bernard Nugent on 07-09-2024 Methicillin-Resist S.aureus DNA PCR Negative Negative [facility] S. aureus DNA MELIZA+probe Ql ( Unsp spec)Ordered By: Bernard Nugent on 07-09-2024 Staphylococcus aureus Protein A PCR Negative Negative [facility] Staphylococcus aureus DNA de tection by probe and target amplification methodOrdered By: Bernard Nugent on 07-09-2024 S. aureus DNA MELIZA+probe Ql (Unsp spec) Negative Negative [facility] Emergency Department Summary on 07-03-2024 Emergency Department Summary [facility] Medical Records Department [address] [place] [address] Emergency Department Summary 07/03/24 MR#: [id number] Acct: [id number] Name: ASHIA PEREZ Rep #: [id number] : 1935 88 From: Salvatore Hightower DO PCP: Dr. Bernard Nugent MD Status:DEP ER Location: ED HPI History of Present Illness HPI Narrative: Patient presents with left leg laceration that occurred today. Patient states he fell and hit his leg. Patient denies any head injury or loss of consciousness. Patient denies any paresthesias or weakness. Patient is unsure of his last tetanus. Patient is on Eliquis for atrial fibrillation. Patient states the bleeding has been persistent. Patient denies any other injuries. Chief Complaint: Laceration Occured/Mechanism Mechanism/Context: Yes fall Onset/Context/Timing Onset: Today Context: Sudden Onset Timing: Continuous Location: Left lower leg Associated Symptoms Associated Symptoms: Negative for Parasthesia, Weakness or Loss of Funtion Narrative Tetanus Immunization: Unknown [facility] Medical History NSVT (nonsustained ventricular tachycardia) Aortic aneurysm without rupture Non-smoker Sleep apnea Atrial fibrillation Hypertension Chronic renal insufficiency, stage III (moderate) Closed head injury Fall Longstanding persistent atrial fibrillation Obstructive sleep apnea Right bundle branch block (RBBB) with left anterior fascicular block Left ventricular diastolic dysfunction Obesity Essential (primary) hypertension Nonrheumatic mitral (valve) insufficiency Non-rheumatic tricuspid valve insufficiency Paroxysmal atrial fibrillation Hyperlipidemia Diverticulosis Type 2 diabetes mellitus Diverticulitis large intestine Diverticula of colon Home Medications ???Medication ???Instructions ???Recorded ???Last Taken ???Type pravastatin 40 mg tablet 40 mg PO QHS cholesterol 09/19/14 12/21/21 History glimepiride 4 mg tablet 1 mg PO QAM diabetes 02/01/23 Unkn own History potassium chloride 20 mEq 10 meq PO DAILY 02/01/23 Unknown H istory tablet,extended release metoprolol tartrate 25 mg tablet 25 mg PO BID #180 tabs 07/11/23 Un known Rx levothyroxine 25 mcg tablet 25 mcg PO DAILY 02/20/24 Unknown H istory apixaban 2.5 mg tablet 2.5 mg PO BID blood thinner #60 Unknown Rx tabs amlodipine 5 mg tablet 5 mg PO DAILY #90 tabs 03/31/24 Un known Rx furosemide 40 mg tablet 40 mg PO Q OTHER DAY PRN edema 05/12 Unknown History losartan 100 mg tablet 100 mg PO QDAY 03/31/24 Unknown Hi story pantoprazole 40 mg tablet,delayed 40 mg PO QAM 03/31/24 Unknown His tory release Allergy/AdvReac Type Severity Reaction Status Date / Time codeine AdvReac Other Verified 07/03/24 14:37 lisinopril AdvReac Other Verified 07/03/24 14:37 Family History Father CVA (cerebral vascular accident) Mother Diabetes Sister Heart disease PPM Surgical History History of appendectomy History of cataract surgery History of tonsillectomy H/O hemicolectomy Hx of cholecystectomy Social History Smoking Status: Never smoker alcohol intake: current ROS ROS ED Constitutional Constitutional ED: Denies chills or fever(s) Eyes Eyes: Denies blurry vision or change in vision ENT ENT ED: Denies rhinorrhea or sore throat Cardiovascular Cardiovascular: Denies chest pain or palpitations Respiratory/Chest Respiratory/Chest: Denies cough or dyspnea Gastrointestinal Gastrointestinal: Denies nausea or vomiting Genitourinary Genitourinary ED: Denies dysuria or hematuria Musculoskeletal Musculoskeletal: Denies back pain or neck pain Integumentary Denies abscess or rash Neurologic Neurologic: Denies headache(s) or weakness Allergic/Immunologic Allergic/Immunologic ED: Denies mouth swelling or urticaria EXAM Physical Exam Const Vital Signs: 07/03/24 14:34 Temperature 98.3 F Temperature Source Oral Pulse Rate 85 Respiratory Rate 16 Blood Pressure 180/76 H Blood Pressure Mean 110 Pulse Ox 98 Oxygen Delivery Method Room Air Positive well nourished and well developed General Appearance ED: well developed and NAD HEENT Reports moist mucous membranes Neck full ROM and supple Neuro oriented x3, CN's II-XII intact bilaterally, moves all extremities and no sensory deficits noted Sensorium / Orientation: alert Motor Exam: strength 5/5 throughout Psych mental status grossly normal Skin Skin Narrative: There is a 6 cm full-thickness L-shaped laceration over the anterior lateral aspect of the left lower leg. Th (more content not included)... Normal [facility] Absolute neutrophil countOrd ered By: Bernard Nugent on 04-27-2024 Neutrophils (Bld) [#/Vol] 8.7 10*3/uL High 2.0-7.7 [facility] Albumin to globulin ratioOrd ered By: Bernard Nugent on 04-27-2024 Albumin/Globulin [Mass ratio] 1.0 {ratio} 0.9-2.4 [facility] Basophil percentageOrdered B y: Bernard Nugent on 04-27-2024 Basophils/100 WBC (Bld) 0.5 % 0-1 [facility] Bilirubin Test strip Ql (U)O rdered By: Bernard Nugent on 04-27-2024 Bilirubin Ql (U) Negative Negative [facility] Bilirubin, totalOrdered By: Bernard Nugent on 04-27-2024 Bilirubin [Mass/Vol] 2.90 mg/dL High 0.20-1.00 [facility] Comment on above: For patients on eltr ombopag therapy, use of Dimension Ringold TBIL is not recommended. Blood urea nitrogen (BUN)/cr eatinine ratioOrdered By: Bernard Nugent on 04-27-2024 Urea nitrogen/Creatinine [Mass ratio] 9.9 mg/mg Low 10-20 [facility] CBC W/Diff, Automatedon Absolute Lymph 0.78 X10 3/uL Low 0.83-4.51 [facility] Comment on above: Performed By: #### L 501.9520, L500.4100, L501.9985, L100.0100, L500.4050, L506.1000 #### [facility] [address] [place], [address] Absolute Neut 8.7 X10 3/uL High 2.0-7.7 [facility] Comment on above: Performed By: #### L 501.9520, L500.4100, L501.9985, L100.0100, L500.4050, L506.1000 #### [facility] [address] [place], [address] Basophils/100 WBC (Bld) 0.5 % Normal 0-1 [facility] Comment on above: Performed By: #### L 501.9520, L500.4100, L501.9985, L100.0100, L500.4050, L506.1000 #### [facility] [address] [place], [address] Eosinophils/100 WBC (Bld) 0.7 % Normal 0-5 [facility] Comment on above: Performed By: #### L 501.9520, L500.4100, L501.9985, L100.0100, L500.4050, L506.1000 #### [facility] [address] [place], [address] Erythrocyte distribution width (RBC) [Ratio] 15.3 % High 11.6-14.6 [facility] Comment on above: Performed By: #### L 501.9520, L500.4100, L501.9985, L100.0100, L500.4050, L506.1000 #### [facility] [address] [place], [address] Hematocrit (Bld) [Volume fraction] 40.3 % Normal 40-54 [facility] Comment on above: Performed By: #### L 501.9520, L500.4100, L501.9985, L100.0100, L500.4050, L506.1000 #### [facility] [address] [place], [address] Hemoglobin (Bld) [Mass/Vol] 13.8 g/dL Normal 13.0-16.5 [facility] Comment on above: Performed By: #### L 501.9520, L500.4100, L501.9985, L100.0100, L500.4050, L506.1000 #### [facility] [address] [place], [address] IG% 0.700 Normal 0.0-0.9 [facility] Comment on above: Result Comment: IG% - Immature Granulocytes (promyelocytes, myelocytes and metamyelocytes) > 1% indicates that a LEFT SHIFT is Present. Performed By: #### L 501.9520, L500.4100, L501.9985, L100.0100, L500.4050, L506.1000 #### [facility] [address] [place], [address] Lymphocytes/100 WBC (Bld) 7.2 % Low 19-41 [facility] Comment on above: Performed By: #### L 501.9520, L500.4100, L501.9985, L100.0100, L500.4050, L506.1000 #### [facility] [address] [place], [address] MCH (RBC) [Entitic mass] 30.9 pg Normal 27.0-32.0 [facility] Comment on above: Performed By: #### L 501.9520, L500.4100, L501.9985, L100.0100, L500.4050, L506.1000 #### [facility] [address] [place], [address] MCHC (RBC) [Mass/Vol] 34.2 g/dL Normal 32-36 [facility] Comment on above: Performed By: #### L 501.9520, L500.4100, L501.9985, L100.0100, L500.4050, L506.1000 #### [facility] [address] [place], [address] MCV (RBC) [Entitic vol] 90.4 fL Normal 80-94 [facility] Comment on above: Performed By: #### L 501.9520, L500.4100, L501.9985, L100.0100, L500.4050, L506.1000 #### [facility] [address] [place], [address] Monocytes/100 WBC (Bld) 10.0 % Normal 0-10 [facility] Comment on above: Performed By: #### L 501.9520, L500.4100, L501.9985, L100.0100, L500.4050, L506.1000 #### [facility] [address] [place], [address] Neutrophils/100 WBC (Bld) 80.9 % High 47-70 [facility] Comment on above: Performed By: #### L 501.9520, L500.4100, L501.9985, L100.0100, L500.4050, L506.1000 #### [facility] [address] [place], [address] Nucleated RBC (Bld) [#/Vol] 0 10*3/uL Normal 0-5 [facility] Comment on above: Performed By: #### L 501.9520, L500.4100, L501.9985, L100.0100, L500.4050, L506.1000 #### [facility] [address] [place], [address] Platelet mean volume (Bld) [Entitic vol] 11.2 fL Normal 6.2-12.0 [facility] Comment on above: Performed By: #### L 501.9520, L500.4100, L501.9985, L100.0100, L500.4050, L506.1000 #### [facility] [address] [place], [address] Platelets (Bld) [#/Vol] 212 10*3/uL Normal 150-450 [facility] Comment on above: Performed By: #### L 501.9520, L500.4100, L501.9985, L100.0100, L500.4050, L506.1000 #### [facility] [address] [place], [address] RBC (Bld) [#/Vol] 4.46 10*6/uL Low 4.6-6.2 [facility] Comment on above: Performed By: #### L 501.9520, L500.4100, L501.9985, L100.0100, L500.4050, L506.1000 #### [facility] [address] [place], [address] RDW SD 50.4 fl High 35.1-43.9 [facility] Comment on above: Performed By: #### L 501.9520, L500.4100, L501.9985, L100.0100, L500.4050, L506.1000 #### [facility] [address] [place], [address] WBC (Bld) [#/Vol] 10.8 10*3/uL Normal 4.4-11.0 [facility] Comment on above: Performed By: #### L 501.9520, L500.4100, L501.9985, L100.0100, L500.4050, L506.1000 #### [facility] [address] [place], [address] Carbon dioxide measurementOr dered By: Bernard Nugent on 04-27-2024 CO2 [Moles/Vol] 27.0 mmol/L 21.0-32.0 [facility] Chloride measurementOrdered By: Bernard Nugent on 04-27-2024 Chloride [Moles/Vol] 101 mmol/L 98-107 [facility] Comprehensive Metabolic Prof ilon 04-27-2024 Albumin [Mass/Vol] 3.5 g/dL Normal 3.2-5.0 [facility] Comment on above: Performed By: #### L 501.9520, L500.4100, L501.9985, L100.0100, L500.4050, L506.1000 #### [facility] [address] [place], [address] Albumin/Globulin [Mass ratio] 1.0 {ratio} Normal 0.9-2.4 [facility] Comment on above: Performed By: #### L 501.9520, L500.4100, L501.9985, L100.0100, L500.4050, L506.1000 #### [facility] [address] [place], [address] ALK P 147 U/L High 45-117 [facility] Comment on above: Performed By: #### L 501.9520, L500.4100, L501.9985, L100.0100, L500.4050, L506.1000 #### [facility] [address] [place], [address] ALT [Catalytic activity/Vol] 30 U/L Normal 16-61 [facility] Comment on above: Performed By: #### L 501.9520, L500.4100, L501.9985, L100.0100, L500.4050, L506.1000 #### [facility] [address] [place], [address] AST [Catalytic activity/Vol] 24 U/L Normal 15-37 [facility] Comment on above: Performed By: #### L 501.9520, L500.4100, L501.9985, L100.0100, L500.4050, L506.1000 #### [facility] [address] [place], [address] Bilirubin [Mass/Vol] 2.90 mg/dL High 0.20-1.00 [facility] Comment on above: Result Comment: For patients on eltrombopag therapy, use of Dimension Ringold TBIL is not recommended. Performed By: #### L 501.9520, L500.4100, L501.9985, L100.0100, L500.4050, L506.1000 #### [facility] [address] [place], [address] BUN/CRE 9.9 RATIO Low 10-20 [facility] Comment on above: Performed By: #### L 501.9520, L500.4100, L501.9985, L100.0100, L500.4050, L506.1000 #### [facility] [address] [place], [address] CA,Total 8.4 mg/dL Low 8.5-10.1 [facility] Comment on above: Performed By: #### L 501.9520, L500.4100, L501.9985, L100.0100, L500.4050, L506.1000 #### [facility] [address] [place], [address] Chloride [Moles/Vol] 101 mmol/L Normal 98-107 [facility] Comment on above: Performed By: #### L 501.9520, L500.4100, L501.9985, L100.0100, L500.4050, L506.1000 #### [facility] [address] [place], [address] CO2 [Moles/Vol] 27.0 mmol/L Normal 21.0-32.0 [facility] Comment on above: Performed By: #### L 501.9520, L500.4100, L501.9985, L100.0100, L500.4050, L506.1000 #### [facility] [address] [place], [address] Creatinine [Mass/Vol] 1.41 mg/dL High 0.70-1.30 [facility] Comment on above: Result Comment: The validity of the calculated GFR GFRAA in patients over 70 years has not been determined. Clinical correlation is essential. Performed By: #### L 501.9520, L500.4100, L501.9985, L100.0100, L500.4050, L506.1000 #### [facility] [address] [place], [address] EST GFR - AA 61 mL/min Normal >60 [facility] Comment on above: Result Comment: Afri can Scottish GFR Calc Performed By: #### L 501.9520, L500.4100, L501.9985, L100.0100, L500.4050, L506.1000 #### [facility] [address] [place], [address] GAP 7 Normal 5-15 [facility] Comment on above: Performed By: #### L 501.9520, L500.4100, L501.9985, L100.0100, L500.4050, L506.1000 #### [facility] [address] [place], [address] GFR/1.73 sq M.predicted among non-blacks MDRD (S/P/Bld) [Vol rate/Area] 50 mL/min/{1.73_m2} Low >60 [facility] Comment on above: Result Comment: Non- GFR Calc Performed By: #### L 501.9520, L500.4100, L501.9985, L100.0100, L500.4050, L506.1000 #### [facility] [address] [place], [address] Globulin (S) [Mass/Vol] 3.6 g/dL Normal 2.2-4.2 [facility] Comment on above: Performed By: #### L 501.9520, L500.4100, L501.9985, L100.0100, L500.4050, L506.1000 #### [facility] [address] [place], [address] Glucose [Mass/Vol] 174 mg/dL High 74-106 [facility] Comment on above: Result Comment: Fast ing Glucose result greater than or equal to 126 mg/dL suggests DIABETES MELLITUS per A.D.A. criteria. Performed By: #### L 501.9520, L500.4100, L501.9985, L100.0100, L500.4050, L506.1000 #### [facility] [address] [place], [address] Potassium [Moles/Vol] 4.1 mmol/L Normal 3.5-5.1 [facility] Comment on above: Performed By: #### L 501.9520, L500.4100, L501.9985, L100.0100, L500.4050, L506.1000 #### [facility] [address] [place], [address] Sodium [Moles/Vol] 135 mmol/L Low 136-145 [facility] Comment on above: Performed By: #### L [id number], L500.4100, L501.9985, L100.0100, L500.4050, L506.1000 #### [facility] [address] [place], [address] T PROT 7.1 g/dL Normal 6.4-8.2 [facility] Comment on above: Performed By: #### L [id number], L500.4100, L501.9985, L100.0100, L500.4050, L506.1000 #### [facility] [address] [place], [address] Urea nitrogen [Mass/Vol] 14 mg/dL Normal 7-18 [facility] Comment on above: Performed By: #### L [id number], L500.4100, L501.9985, L100.0100, L500.4050, L506.1000 #### [facility] [address] [place], [address] Eosinophil percentageOrdered By: Bernard Nugent on 04-27-2024 Eosinophils/100 WBC (Bld) 0.7 % 0-5 [facility] Epithelial cells.squamous LM Ql (Urine sed)Ordered By: Bernard Nugent on 04-27-2024 Epithelial cells.squamous LM.HPF (Urine sed) [#/Area] 0 /[HPF] 0-5 [facility] Erythrocyte distribution wid th ratioOrdered By: Bernard Nugent on 04-27-2024 Erythrocyte distribution width (RBC) [Ratio] 15.3 % High 11.6-14.6 [facility] Erythrocyte distribution wid th standard deviationOrdered By: Bernard Raffi on 04-27-2024 Erythrocyte distribution width (RBC) [Entitic vol] 50.4 fL High 35.1-43.9 [facility] Estimated glomerular filtrat ion rate (GFR) AmericanOrdered By: Bernard Nugent on 04-27-2024 Estimated GFR (MDRD) Amer 61 mL/min >60 [facility] Comment on above: GFR Calc Glomerular filtration rate ( GFR) estimationOrdered By: Bernard Nugent on 04-27-2024 Estimated GFR (MDRD) Non-Af Amer 50 mL/min Low >60 [facility] Comment on above: Non- GFR Calc Glucose Ql (U)Ordered By: Vick Nugent on 04-27-2024 Urine Glucose (UA) Normal mg/dl Normal [facility] Glucose measurementOrdered B y: Bernard Nugent on 04-27-2024 Glucose [Mass/Vol] 174 mg/dL High 74-106 [facility] Comment on above: Fasting Glucose resu lt greater than or equal to 126 mg/dL suggests DIABETES MELLITUS per A.D.A. criteria. Hematocrit Auto (Bld) [Volum e fraction]Ordered By: Bernard Nugent on 04-27-2024 Hematocrit (Bld) [Volume fraction] 40.3 % 40-54 [facility] Hemoglobin measurementOrdere d By: Bernard Nugent on 04-27-2024 Hemoglobin (Bld) [Mass/Vol] 13.8 g/dL 13.0-16.5 [facility] Immature granulocytes/100 WB C Auto (Bld)Ordered By: Bernard Nugent on 04-27-2024 Immature granulocytes/100 WBC (Bld) 0.700 % 0.0-0.9 [facility] Comment on above: IG% - Immature Granu locytes (promyelocytes, myelocytes and metamyelocytes) > 1% indicates that a LEFT SHIFT is Present. Ketones Test strip Ql (U)Ord ered By: Bernard Nugent on 04-27-2024 Ketones Ql (U) Negative Negative [facility] - Chemistry and C hemistry - challengeOrdered By: Bernard Nugent on 04-27-2024 AST [Catalytic activity/Vol] 24 U/L 15-37 [facility] Lymphocytes Auto (Unsp spec) [#/Vol]Ordered By: Bernard Nugent on 04-27-2024 Lymphocytes (Bld) [#/Vol] 0.78 10*3/uL Low 0.83-4.51 [facility] Lymphocytes/100 WBC Auto (Un sp spec)Ordered By: Bernard Nugent on 04-27-2024 Lymphocytes/100 WBC (Bld) 7.2 % Low 19-41 [facility] MCV (mean corpuscular volume ) determinationOrdered By: Bernadr Nugent on 04-27-2024 MCV (RBC) [Entitic vol] 90.4 fL 80-94 [facility] Mean corpuscular hemoglobin (MCH) determinationOrdered By: Bernard Nugent on 04-27-2024 MCH (RBC) [Entitic mass] 30.9 pg 27.0-32.0 [facility] Mean corpuscular hemoglobin concentration (MCHC) determinationOrdered By: Bernard Nugent on 04-27-2024 MCHC (RBC) [Mass/Vol] 34.2 g/dL 32-36 [facility] Mean platelet volume determi nationOrdered By: Bernard Nugent on 04-27-2024 Platelet mean volume (Bld) [Entitic vol] 11.2 fL 6.2-12.0 [facility] Microscopic analysis of urin e for red blood cells (RBC)Ordered By: Bernard Nugent on 04-27-2024 Urine RBC 0-5 SEEN /hpf 0-5 [facility] Monocyte percentageOrdered B y: Bernard Nugent on 04-27-2024 Monocytes/100 WBC (Bld) 10.0 % 0-10 [facility] Mucus LM Ql (Urine sed)Order ed By: Bernard Nugent on 04-27-2024 Mucus Ql (Urine sed) 0 SEEN /hpf [facility] Neutrophil percentageOrdered By: Bernard Nugent on 04-27-2024 Neutrophils/100 WBC (Bld) 80.9 % High 47-70 [facility] Nitrite Test strip Ql (U)Ord ered By: Bernard Nugent on 04-27-2024 Nitrite Ql (U) Negative Negative [facility] Nucleated red blood cell per centageOrdered By: Bernard Nugent on 04-27-2024 Nucleated RBC/100 WBC (Bld) [Ratio] 0 % 0-5 [facility] Platelet countOrdered By: Vick Nugent on 04-27-2024 Platelets (Bld) [#/Vol] 212 10*3/uL 150-450 [facility] Potassium measurementOrdered By: Bernard Nugent on 04-27-2024 Potassium [Moles/Vol] 4.1 mmol/L 3.5-5.1 [facility] Protein Test strip Ql (U)Ord ered By: Bernard Nugent on 04-27-2024 Protein Ql (U) 30 mg/dl High Negative [facility] RBC Auto (Bld) [#/Vol]Ordere d By: Bernard Nugent on 04-27-2024 RBC (Bld) [#/Vol] 4.46 10*6/uL Low 4.6-6.2 [facility] Serum anion gap measurementO rdered By: Bernard Nugent on 04-27-2024 Anion gap [Moles/Vol] 7 mmol/L 5-15 [facility] Serum globulin measurementOr dered By: Bernard Nugent 04-27-2024 Globulin (S) [Mass/Vol] 3.6 g/dL 2.2-4.2 [facility] Serum or plasma alanine erickson otransferase (ALT) measurementOrdered By: Bernard Nugent 04-27-2024 ALT [Catalytic activity/Vol] 30 U/L 16-61 [facility] Serum or plasma albumin sita urement (mass/volume)Ordered By: Bernard Nugent 04-27-2024 Albumin [Mass/Vol] 3.5 g/dL 3.2-5.0 [facility] Serum or plasma alkaline florencia sphatase measurementOrdered By: Bernard Nugent 04-27-2024 ALP [Catalytic activity/Vol] 147 U/L High 45-117 [facility] Serum or plasma calcium sita urement (mass/volume)Ordered By: Bernard Nugent 04-27-2024 Calcium [Mass/Vol] 8.4 mg/dL Low 8.5-10.1 [facility] Serum or plasma creatinine m easurement (mass/volume)Ordered By: Bernard Nugent 04-27-2024 Creatinine [Mass/Vol] 1.41 mg/dL High 0.70-1.30 [facility] Comment on above: The validity of the calculated GFR & GFRAA in patients over 70 years has not been determined. Clinical correlation is essential. Serum or plasma urea nitroge n measurement (mass/volume)Ordered By: Bernard Nugent 04-27-2024 Urea nitrogen [Mass/Vol] 14 mg/dL 7-18 [facility] Sodium levelOrdered By: Bernard Nugent on 04-27-2024 Sodium [Moles/Vol] 135 mmol/L Low 136-145 [facility] TSH QnOrdered By: Bernard Nugent o n 04-27-2024 Thyroid Stimulating Hormone (TSH) 2.010 uIU/mL 0.358-3.740 [facility] Thyroid Stim Hormone (TSH)on 04-27-2024 TSH 2.010 uIU/mL Normal 0.358-3.740 [facility] Comment on above: Performed By: #### L 501.9520, L500.4100, L501.9985, L100.0100, L500.4050, L506.1000 #### [facility] [address] [place], [place], [id number] Total proteinOrdered By: Bernard Nugent on 04-27-2024 Protein [Mass/Vol] 7.1 g/dL 6.4-8.2 [facility] Urinalysis, Completeon 04-27 BACTERIA 1+ /hpf Normal None Seen [facility] Comment on above: Order Comment: Urine , Random Performed By: #### L 501.9520, L500.4100, L501.9985, L100.0100, L500.4050, L506.1000 #### [facility] [address] [place], [place], [id number] EPI,SQUAMOUS 0-5 SEEN Normal 0-5 [facility] Comment on above: Order Comment: Urine , Random Performed By: #### L 501.9520, L500.4100, L501.9985, L100.0100, L500.4050, L506.1000 #### [facility] [address] [place], [address] RBC 0-5 SEEN Normal 0-5 [facility] Comment on above: Order Comment: Urine , Random Performed By: #### L [id number], L500.4100, L501.9985, L100.0100, L500.4050, L506.1000 #### [facility] [address] [place], [address] WBC 0-5 SEEN Normal 0-5 [facility] Comment on above: Order Comment: Urine , Random Performed By: #### L 501.9520, L500.4100, L501.9985, L100.0100, L500.4050, L506.1000 #### [facility] [address] [place], [address] Mucus Ql (Urine sed) 0 SEEN Normal [facility] Comment on above: Order Comment: Urine , Random Performed By: #### L [id number], L500.4100, L501.9985, L100.0100, L500.4050, L506.1000 #### [facility] [address] [place], [address] Urine blood detectionOrdered By: Bernard Nugent on 04-27-2024 Urine Occult Blood 10 /ul High Negative [facility] Urine clarityOrdered By: Bernard Nugent on 04-27-2024 Clarity (U) Clear Clear [facility] Urine color determinationOrd ered By: Bernard Nugent on 04-27-2024 Color (U) Yellow Yellow [facility] Urine leukocyte esterase det ection by dipstickOrdered By: Bernard Nugent on 04-27-2024 Leukocyte esterase Test strip Ql (U) Negative Negative [facility] Urine pHOrdered By: Bernard Nugent on 04-27-2024 pH (U) 6.5 [pH] 5.0 - 8.0 [facility] Urine sediment bacteria coun t by microscopy (number/high power field)Ordered By: Bernard Nugent on 04-27-2024 Bacteria LM.HPF (Urine sed) [#/Area] 1 /[HPF] None Seen [facility] Urine specific gravity measu rementOrdered By: Bernard Nugent on 04-27-2024 Specific gravity (U) [Rel density] 1.010 1.002-1.030 [facility] Urobilinogen Ql (U)Ordered B y: Bernard Nugent on 04-27-2024 Urobilinogen (U) [Mass/Vol] 1 mg/dL High Normal [facility] White blood cell (WBC) count Ordered By: Bernard Nugent on 04-27-2024 WBC (Bld) [#/Vol] 10.8 10*3/uL 4.4-11.0 [facility] White blood cell countOrdere d By: Bernard Nugent on 04-27-2024 Urine WBC 0-5 SEEN /hpf 0-5 [facility] 31-YJ-Snefwoz DOrdered By: Osei Nugent on 04-22-2024 Vitamin D 25-Hydroxy 31.0 ng/mL [facility] Comment on above: Vitamin D 25(OH) Sta tus Range Deficiency <20 ng/mL (50nmol/L) Insufficiency 20 - 30 ng/mL (50 - 75 nmol/L) Sufficiency 30 - 100 ng/mL (75 - 250 nmol/L) Toxicity >100 ng/mL (>250 nmol/L) Absolute neutrophil countOrd ered By: Bernard Nugent on 04-22-2024 Neutrophils (Bld) [#/Vol] 6.3 10*3/uL 2.0-7.7 [facility] Albumin to globulin ratioOrd ered By: Bernard Nugent on 04-22-2024 Albumin/Globulin [Mass ratio] 1.0 {ratio} 0.9-2.4 [facility] Basophil percentageOrdered B y: Bernard Nugent on 04-22-2024 Basophils/100 WBC (Bld) 0.6 % 0-1 [facility] Bilirubin, totalOrdered By: Bernard Nugent on 04-22-2024 Bilirubin [Mass/Vol] 2.50 mg/dL High 0.20-1.00 [facility] Comment on above: For patients on eltr ombopag therapy, use of Dimension Ringold TBIL is not recommended. Blood urea nitrogen (BUN)/cr eatinine ratioOrdered By: Bernard Nugent on 04-22-2024 Urea nitrogen/Creatinine [Mass ratio] 10.7 mg/mg 10-20 [facility] CBC W/Diff, Automatedon Absolute Lymph 1.01 X10 3/uL Normal 0.83-4.51 [facility] Comment on above: Performed By: #### L 501.9520, L500.4100, L501.9985, L100.0100, L500.4050, L506.1000 #### [facility] [address] [place], [address] Absolute Neut 6.3 X10 3/uL Normal 2.0-7.7 [facility] Comment on above: Performed By: #### L 501.9520, L500.4100, L501.9985, L100.0100, L500.4050, L506.1000 #### [facility] [address] [place], [address] Basophils/100 WBC (Bld) 0.6 % Normal 0-1 [facility] Comment on above: Performed By: #### L 501.9520, L500.4100, L501.9985, L100.0100, L500.4050, L506.1000 #### [facility] [address] [place], [address] Eosinophils/100 WBC (Bld) 1.7 % Normal 0-5 [facility] Comment on above: Performed By: #### L 501.9520, L500.4100, L501.9985, L100.0100, L500.4050, L506.1000 #### [facility] [address] [place], [address] Erythrocyte distribution width (RBC) [Ratio] 15.2 % High 11.6-14.6 [facility] Comment on above: Performed By: #### L 501.9520, L500.4100, L501.9985, L100.0100, L500.4050, L506.1000 #### [facility] [address] [place], [address] Hematocrit (Bld) [Volume fraction] 41.1 % Normal 40-54 [facility] Comment on above: Performed By: #### L 501.9520, L500.4100, L501.9985, L100.0100, L500.4050, L506.1000 #### [facility] [address] [place], [address] Hemoglobin (Bld) [Mass/Vol] 13.8 g/dL Normal 13.0-16.5 [facility] Comment on above: Performed By: #### L 501.9520, L500.4100, L501.9985, L100.0100, L500.4050, L506.1000 #### [facility] [address] [place], [address] IG% 0.800 Normal 0.0-0.9 [facility] Comment on above: Result Comment: IG% - Immature Granulocytes (promyelocytes, myelocytes and metamyelocytes) > 1% indicates that a LEFT SHIFT is Present. Performed By: #### L 501.9520, L500.4100, L501.9985, L100.0100, L500.4050, L506.1000 #### [facility] [address] [place], [address] Lymphocytes/100 WBC (Bld) 12.1 % Low 19-41 [facility] Comment on above: Performed By: #### L 501.9520, L500.4100, L501.9985, L100.0100, L500.4050, L506.1000 #### [facility] [address] [place], [address] MCH (RBC) [Entitic mass] 30.2 pg Normal 27.0-32.0 [facility] Comment on above: Performed By: #### L 501.9520, L500.4100, L501.9985, L100.0100, L500.4050, L506.1000 #### [facility] [address] [place], [address] MCHC (RBC) [Mass/Vol] 33.6 g/dL Normal 32-36 [facility] Comment on above: Performed By: #### L 501.9520, L500.4100, L501.9985, L100.0100, L500.4050, L506.1000 #### [facility] [address] [place], [address] MCV (RBC) [Entitic vol] 89.9 fL Normal 80-94 [facility] Comment on above: Performed By: #### L 501.9520, L500.4100, L501.9985, L100.0100, L500.4050, L506.1000 #### [facility] [address] [place], [address] Monocytes/100 WBC (Bld) 9.8 % Normal 0-10 [facility] Comment on above: Performed By: #### L 501.9520, L500.4100, L501.9985, L100.0100, L500.4050, L506.1000 #### [facility] [address] [place], [address] Neutrophils/100 WBC (Bld) 75.0 % High 47-70 [facility] Comment on above: Performed By: #### L 501.9520, L500.4100, L501.9985, L100.0100, L500.4050, L506.1000 #### [facility] [address] [place], [address] Nucleated RBC (Bld) [#/Vol] 0 10*3/uL Normal 0-5 [facility] Comment on above: Performed By: #### L 501.9520, L500.4100, L501.9985, L100.0100, L500.4050, L506.1000 #### [facility] [address] [place], [address] Platelet mean volume (Bld) [Entitic vol] 10.7 fL Normal 6.2-12.0 [facility] Comment on above: Performed By: #### L 501.9520, L500.4100, L501.9985, L100.0100, L500.4050, L506.1000 #### [facility] [address] [place], [address] Platelets (Bld) [#/Vol] 195 10*3/uL Normal 150-450 [facility] Comment on above: Performed By: #### L 501.9520, L500.4100, L501.9985, L100.0100, L500.4050, L506.1000 #### [facility] [address] [place], [address] RBC (Bld) [#/Vol] 4.57 10*6/uL Low 4.6-6.2 [facility] Comment on above: Performed By: #### L 501.9520, L500.4100, L501.9985, L100.0100, L500.4050, L506.1000 #### [facility] [address] [place], [address] RDW SD 50.1 fl High 35.1-43.9 [facility] Comment on above: Performed By: #### L 501.9520, L500.4100, L501.9985, L100.0100, L500.4050, L506.1000 #### [facility] [address] [place], [address] WBC (Bld) [#/Vol] 8.4 10*3/uL Normal 4.4-11.0 [facility] Comment on above: Performed By: #### L 501.9520, L500.4100, L501.9985, L100.0100, L500.4050, L506.1000 #### [facility] [address] [place], [address] Carbon dioxide measurementOr dered By: Bernard Nugent on 04-22-2024 CO2 [Moles/Vol] 27.0 mmol/L 21.0-32.0 [facility] Chloride measurementOrdered By: Bernard Nugent on 04-22-2024 Chloride [Moles/Vol] 99 mmol/L 98-107 [facility] Comprehensive Metabolic Prof ilon 04-22-2024 Albumin [Mass/Vol] 3.4 g/dL Normal 3.2-5.0 [facility] Comment on above: Performed By: #### L 501.9520, L500.4100, L501.9985, L100.0100, L500.4050, L506.1000 #### [facility] [address] [place], [address] Albumin/Globulin [Mass ratio] 1.0 {ratio} Normal 0.9-2.4 [facility] Comment on above: Performed By: #### L 501.9520, L500.4100, L501.9985, L100.0100, L500.4050, L506.1000 #### [facility] [address] [place], [address] ALK P 126 U/L High 45-117 [facility] Comment on above: Performed By: #### L 501.9520, L500.4100, L501.9985, L100.0100, L500.4050, L506.1000 #### [facility] [address] [place], [address] ALT [Catalytic activity/Vol] 26 U/L Normal 16-61 [facility] Comment on above: Performed By: #### L 501.9520, L500.4100, L501.9985, L100.0100, L500.4050, L506.1000 #### [facility] [address] [place], [address] AST [Catalytic activity/Vol] 21 U/L Normal 15-37 [facility] Comment on above: Performed By: #### L 501.9520, L500.4100, L501.9985, L100.0100, L500.4050, L506.1000 #### [facility] [address] [place], [address] Bilirubin [Mass/Vol] 2.50 mg/dL High 0.20-1.00 [facility] Comment on above: Result Comment: For patients on eltrombopag therapy, use of Dimension Ringold TBIL is not recommended. Performed By: #### L 501.9520, L500.4100, L501.9985, L100.0100, L500.4050, L506.1000 #### [facility] [address] [place], [address] BUN/CRE 10.7 RATIO Normal 10-20 [facility] Comment on above: Performed By: #### L 501.9520, L500.4100, L501.9985, L100.0100, L500.4050, L506.1000 #### [facility] [address] [place], [address] CA,Total 8.4 mg/dL Low 8.5-10.1 [facility] Comment on above: Performed By: #### L 501.9520, L500.4100, L501.9985, L100.0100, L500.4050, L506.1000 #### [facility] [address] [place], [address] Chloride [Moles/Vol] 99 mmol/L Normal 98-107 [facility] Comment on above: Performed By: #### L 501.9520, L500.4100, L501.9985, L100.0100, L500.4050, L506.1000 #### [facility] [address] [place], [address] CO2 [Moles/Vol] 27.0 mmol/L Normal 21.0-32.0 [facility] Comment on above: Performed By: #### L 501.9520, L500.4100, L501.9985, L100.0100, L500.4050, L506.1000 #### [facility] [address] [place], [place], [id number] Creatinine [Mass/Vol] 1.40 mg/dL High 0.70-1.30 [facility] Comment on above: Result Comment: The validity of the calculated GFR GFRAA in patients over 70 years has not been determined. Clinical correlation is essential. Performed By: #### L 501.9520, L500.4100, L501.9985, L100.0100, L500.4050, L506.1000 #### [facility] [address] [place], [place], [id number] EST GFR - AA 61 mL/min Normal >60 [facility] Comment on above: Result Comment: Afri can Scottish GFR Calc Performed By: #### L 501.9520, L500.4100, L501.9985, L100.0100, L500.4050, L506.1000 #### [facility] [address] [place], [place], [id number] GAP 6 Normal 5-15 [facility] Comment on above: Performed By: #### L 501.9520, L500.4100, L501.9985, L100.0100, L500.4050, L506.1000 #### [facility] [address] [place], [place], [id number] ([address] GFR/1.73 sq M.predicted among non-blacks MDRD (S/P/Bld) [Vol rate/Area] 51 mL/min/{1.73_m2} Low >60 [facility] Comment on above: Result Comment: Non- GFR Calc Performed By: #### L 501.9520, L500.4100, L501.9985, L100.0100, L500.4050, L506.1000 #### [facility] [address] [place], [address] Globulin (S) [Mass/Vol] 3.5 g/dL Normal 2.2-4.2 [facility] Comment on above: Performed By: #### L 501.9520, L500.4100, L501.9985, L100.0100, L500.4050, L506.1000 #### [facility] [address] [place], [address] Glucose [Mass/Vol] 165 mg/dL High 74-106 [facility] Comment on above: Result Comment: Fast ing Glucose result greater than or equal to 126 mg/dL suggests DIABETES MELLITUS per A.D.A. criteria. Performed By: #### L 501.9520, L500.4100, L501.9985, L100.0100, L500.4050, L506.1000 #### [facility] [address] [place], [address] Potassium [Moles/Vol] 4.6 mmol/L Normal 3.5-5.1 [facility] Comment on above: Performed By: #### L 501.9520, L500.4100, L501.9985, L100.0100, L500.4050, L506.1000 #### [facility] [address] [place], [address] Sodium [Moles/Vol] 133 mmol/L Low 136-145 [facility] Comment on above: Performed By: #### L 501.9520, L500.4100, L501.9985, L100.0100, L500.4050, L506.1000 #### [facility] [address] [place], [address] T PROT 6.9 g/dL Normal 6.4-8.2 [facility] Comment on above: Performed By: #### L 501.9520, L500.4100, L501.9985, L100.0100, L500.4050, L506.1000 #### [facility] [address] [place], [address] Urea nitrogen [Mass/Vol] 15 mg/dL Normal 7-18 [facility] Comment on above: Performed By: #### L 501.9520, L500.4100, L501.9985, L100.0100, L500.4050, L506.1000 #### [facility] [address] [place], [address] Eosinophil percentageOrdered By: Bernard Nugent on 04-22-2024 Eosinophils/100 WBC (Bld) 1.7 % 0-5 [facility] Erythrocyte distribution wid th ratioOrdered By: Bernard Nugent on 04-22-2024 Erythrocyte distribution width (RBC) [Ratio] 15.2 % High 11.6-14.6 [facility] Erythrocyte distribution wid th standard deviationOrdered By: Bernard Nugent on 04-22-2024 Erythrocyte distribution width (RBC) [Entitic vol] 50.1 fL High 35.1-43.9 [facility] Estimated glomerular filtrat ion rate (GFR) AmericanOrdered By: Bernard Nugent on 04-22-2024 Estimated GFR (MDRD) Amer 61 mL/min >60 [facility] Comment on above: GFR Calc Glomerular filtration rate ( GFR) estimationOrdered By: Bernard Nugent on 04-22-2024 Estimated GFR (MDRD) Non-Af Amer 51 mL/min Low >60 [facility] Comment on above: Non- GFR Calc Glucose measurementOrdered B y: Bernard Nugent on 04-22-2024 Glucose [Mass/Vol] 165 mg/dL High 74-106 [facility] Comment on above: Fasting Glucose resu lt greater than or equal to 126 mg/dL suggests DIABETES MELLITUS per A.D.A. criteria. Hematocrit Auto (Bld) [Volum e fraction]Ordered By: Bernard Nugent on 04-22-2024 Hematocrit (Bld) [Volume fraction] 41.1 % 40-54 [facility] Hemoglobin A1con 04-22-2024 HbA1c (Bld) [Mass fraction] 5.9 % High 3.8-5.6 [facility] Comment on above: Result Comment: Norm al < 5.7 % Prediabetic 5.7 - 6.4 % Diabetic >or= 6.5 % Please note range changes. Performed By: #### L 501.9520, L500.4100, L501.9985, L100.0100, L500.4050, L506.1000 #### [facility] [address] [place], [address] Hemoglobin A1c percentageOrd ered By: Bernard Nugent on 04-22-2024 HbA1c (Bld) [Mass fraction] 5.9 % High 3.8-5.6 [facility] Comment on above: Normal < 5.7 % Predi abetic 5.7 - 6.4 % Diabetic >or= 6.5 % Please note range changes. Hemoglobin measurementOrdere d By: Bernard Nugent on 04-22-2024 Hemoglobin (Bld) [Mass/Vol] 13.8 g/dL 13.0-16.5 [facility] High density lipoprotein (HD L) measurementOrdered By: Bernard Nugent on 04-22-2024 Cholesterol in HDL [Mass/Vol] 74 mg/dL >40 [facility] Comment on above: The drugs N-Acetylcy steine and Metamizole may falsely depress this assay. Reference Range HDL <40 mg/dL Low HDL Cholesterol HDL >or= 60 mg/dL High HDL Cholesterol Immature granulocytes/100 WB C Auto (Bld)Ordered By: Bernard Nugent on 04-22-2024 Immature granulocytes/100 WBC (Bld) 0.800 % 0.0-0.9 [facility] Comment on above: IG% - Immature Granu locytes (promyelocytes, myelocytes and metamyelocytes) > 1% indicates that a LEFT SHIFT is Present. Laboratory - Chemistry and C hemistry - challengeOrdered By: Bernard Nugent on 04-22-2024 AST [Catalytic activity/Vol] 21 U/L 15-37 [facility] Lipid Profileon 04-22-2024 Cholesterol [Mass/Vol] 127 mg/dL Normal 200 [facility] Comment on above: Result Comment: <200 mg/dL Desirable 200-240 mg/dL Borderline >240 mg/dL High Risk Performed By: #### L 501.9520, L500.4100, L501.9985, L100.0100, L500.4050, L506.1000 #### [facility] [address] [place], [address] Cholesterol in HDL [Mass/Vol] 74 mg/dL Normal [facility] Comment on above: Result Comment: The drugs N-Acetylcysteine and Metamizole may falsely depress this assay. Reference Range HDL <40 mg/dL Low HDL Cholesterol HDL >or= 60 mg/dL High HDL Cholesterol Performed By: #### L 501.9520, L500.4100, L501.9985, L100.0100, L500.4050, L506.1000 #### [facility] [address] [place], [address] Cholesterol in LDL [Mass/Vol] 40 mg/dL Normal 0-130 [facility] Comment on above: Performed By: #### L 501.9520, L500.4100, L501.9985, L100.0100, L500.4050, L506.1000 #### [facility] [address] [place], [address] Cholesterol in VLDL [Mass/Vol] 13 mg/dL Normal 5-40 [facility] Comment on above: Performed By: #### L [id number], L500.4100, L501.9985, L100.0100, L500.4050, L506.1000 #### [facility] [address] [place], [address] Triglyceride [Mass/Vol] 65 mg/dL Normal [facility] Comment on above: Result Comment: The drugs N-Acetylcysteine and Metamizole may falsely depress this assay. Serum Triglycerides Reference Interval Normal <150 mg/dL Borderline high 150 - 199 mg/dL High 200 - 499 mg/dL Very High > or = 500 mg/dL Performed By: #### L 501.9520, L500.4100, L501.9985, L100.0100, L500.4050, L506.1000 #### [facility] [place], [address] Low density lipoprotein (LDL ) cholesterol measurementOrdered By: Bernard Nugent on 04-22-2024 Cholesterol in LDL [Mass/Vol] 40 mg/dL 0-130 [facility] Lymphocytes Auto (Unsp spec) [#/Vol]Ordered By: Bernard Nugent on 04-22-2024 Lymphocytes (Bld) [#/Vol] 1.01 10*3/uL 0.83-4.51 [facility] Lymphocytes/100 WBC Auto (Un sp spec)Ordered By: Bernard Nugent on 04-22-2024 Lymphocytes/100 WBC (Bld) 12.1 % Low 19-41 [facility] MCV (mean corpuscular volume ) determinationOrdered By: Bernard Nugent on 04-22-2024 MCV (RBC) [Entitic vol] 89.9 fL 80-94 [facility] Mean corpuscular hemoglobin (MCH) determinationOrdered By: Bernard Nugent on 04-22-2024 MCH (RBC) [Entitic mass] 30.2 pg 27.0-32.0 [facility] Mean corpuscular hemoglobin concentration (MCHC) determinationOrdered By: Bernard Nugent on 04-22-2024 MCHC (RBC) [Mass/Vol] 33.6 g/dL 32-36 [facility] Mean platelet volume determi nationOrdered By: Bernard Nugent on 04-22-2024 Platelet mean volume (Bld) [Entitic vol] 10.7 fL 6.2-12.0 [facility] Monocyte percentageOrdered B y: Bernard Nugent on 04-22-2024 Monocytes/100 WBC (Bld) 9.8 % 0-10 [facility] Neutrophil percentageOrdered By: Bernard Nugent on 04-22-2024 Neutrophils/100 WBC (Bld) 75.0 % High 47-70 [facility] Nucleated red blood cell per centageOrdered By: Bernard Nugent on 04-22-2024 Nucleated RBC/100 WBC (Bld) [Ratio] 0 % 0-5 [facility] Platelet countOrdered By: Vick Nugent on 04-22-2024 Platelets (Bld) [#/Vol] 195 10*3/uL 150-450 [facility] Potassium measurementOrdered By: Bernard Nugent on 04-22-2024 Potassium [Moles/Vol] 4.6 mmol/L 3.5-5.1 [facility] RBC Auto (Bld) [#/Vol]Ordere d By: Bernard Nugent on 04-22-2024 RBC (Bld) [#/Vol] 4.57 10*6/uL Low 4.6-6.2 [facility] Serum anion gap measurementO rdered By: Bernard Nugent on 04-22-2024 Anion gap [Moles/Vol] 6 mmol/L 5-15 [facility] Serum globulin measurementOr dered By: Bernard Nugent on 04-22-2024 Globulin (S) [Mass/Vol] 3.5 g/dL 2.2-4.2 [facility] Serum or plasma alanine erickson otransferase (ALT) measurementOrdered By: Bernard Nugent on 04-22-2024 ALT [Catalytic activity/Vol] 26 U/L 16-61 [facility] Serum or plasma albumin sita urement (mass/volume)Ordered By: Bernard Nugent 04-22-2024 Albumin [Mass/Vol] 3.4 g/dL 3.2-5.0 [facility] Serum or plasma alkaline florencia sphatase measurementOrdered By: Bernard Nugent 04-22-2024 ALP [Catalytic activity/Vol] 126 U/L High 45-117 [facility] Serum or plasma calcium sita urement (mass/volume)Ordered By: Bernard Nugent on 04-22-2024 Calcium [Mass/Vol] 8.4 mg/dL Low 8.5-10.1 [facility] Serum or plasma cholesterol measurement (mass/volume)Ordered By: Bernard Nugent 04-22-2024 Cholesterol [Mass/Vol] 127 mg/dL <200 [facility] Comment on above: <200 mg/dL Desirable 200-240 mg/dL Borderline >240 mg/dL High Risk Serum or plasma creatinine m easurement (mass/volume)Ordered By: Bernard Nugent 04-22-2024 Creatinine [Mass/Vol] 1.40 mg/dL High 0.70-1.30 [facility] Comment on above: The validity of the calculated GFR & GFRAA in patients over 70 years has not been determined. Clinical correlation is essential. Serum or plasma urea nitroge n measurement (mass/volume)Ordered By: Bernard Nugent on 04-22-2024 Urea nitrogen [Mass/Vol] 15 mg/dL 7-18 [facility] Sodium levelOrdered By: Bernard Nugent on 04-22-2024 Sodium [Moles/Vol] 133 mmol/L Low 136-145 [facility] TSH QnOrdered By: Bernard Nugent o n 04-22-2024 Thyroid Stimulating Hormone (TSH) 2.610 uIU/mL 0.358-3.740 [facility] Thyroid Stim Hormone (TSH)on 04-22-2024 TSH 2.610 uIU/mL Normal 0.358-3.740 [facility] Comment on above: Performed By: #### L 501.9520, L500.4100, L501.9985, L100.0100, L500.4050, L506.1000 #### [facility] [place], [address] Total proteinOrdered By: Bernard Nugent on 04-22-2024 Protein [Mass/Vol] 6.9 g/dL 6.4-8.2 [facility] Triglycerides measurementOrd ered By: Bernard Nugent on 04-22-2024 Triglyceride [Mass/Vol] 65 mg/dL <199 [facility] Comment on above: The drugs N-Acetylcy steine and Metamizole may falsely depress this assay.Serum Triglycerides Reference Interval Normal <150 mg/dL Borderline high 150 - 199 mg/dL High 200 - 499 mg/dL Very High > or = 500 mg/dL Very low density lipoprotein (VLDL) cholesterol measurementOrdered By: Bernard Nugent on 04-22-2024 VLDL Cholesterol 13 mg/dL 5-40 [facility] Vitamin D,25 Hydroxyon 04-22 Vitamin D 25-OH 31.0 ng/mL Normal [facility] Comment on above: Result Comment: Mary min D 25(OH) Status Range Deficiency <20 ng/mL (50nmol/L) Insufficiency 20 - 30 ng/mL (50 - 75 nmol/L) Sufficiency 30 - 100 ng/mL (75 - 250 nmol/L) Toxicity >100 ng/mL (>250 nmol/L) Performed By: #### L 501.9520, L500.4100, L501.9985, L100.0100, L500.4050, L506.1000 #### [facility] [address] [place], [address] White blood cell (WBC) count Ordered By: Bernard Nugent on 04-22-2024 WBC (Bld) [#/Vol] 8.4 10*3/uL 4.4-11.0 [facility] Cardiology Visit Reporton Cardiology Visit Report [facility] [address] [place] [address] OFFICE VISIT Date of Service: 03/31/24 MR#: [id number] Acct: [id number] Name: ASHIA PEREZ Rep #: [id number] : 1935 Provider: Dr. Rodolfo Tobias MD Age/Sex: 88/M Location: [facility] [place] Status: Signed HPI HPI History of Present Illness Details: ASHIA PEREZ, is a 88 M with a history of paroxysmal atrial fibrillation, hypertension, and chronic right bundle branch block. Echocardiogram in 2019 demonstrated stage III diastolic dysfunction, estimated ejection fraction of 55% and severe left ventricular hypertrophy. In October of 2021 he presented to the ER for syncope.??? His Metoprolol was decreased from 100 mg to 50 mg.??? He then presented back to the ER, 12/19/21, for increase SOB.??? He he was noted to be bradycardic.??? His Diltiazem was stopped.??? He then noted that he had a HR in the 30's.??? Rhythm indicated that it was junctional.??? His metoprolol has been decreased to 25 mg. 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 Device report received on 07/05/2023 showing 2 high ventricular rate episodes consistent with nonsustained ventricular tachycardia and longest episode lasting 25 beats. We had increased his metoprolol. He was in the emergency room on 07/07/2023 with complaints of being shortness of breath, dizziness and weakness. Troponins were negative, BNP was elevated. Chest x-ray demonstrated mild pulmonary edema. It was noted that his aorta was mildly dilated at 4.[address] scan. It was felt that his blood pressure was not well-controlled and that contributed to his symptoms. Norvasc as added to his medications. He does not have any cardiac symptoms and is not able to take his his blood pressure at home due to his vision. He denies chest pain, shortness of breath, palpitations. Intake Vital Signs 02/01/23 15:07 02/20/24 13:15 03/31/24 11:41 Height 5 ft 10 in 5 ft 10 in 5 ft 10 in Weight: 210 lb BMI 30.1 BP 153/76 H Blood Pressure Location Lt brachial Position Sitting Respiration 16 Pulse 59 L Pulse Source Monitor Intake Visit Reasons: 1 Y FU Report Checker Required: No Accompanied by: Self Is patient in pain?: No Allergies codeine Adverse Reaction (Verified 03/31/24 11:43) Other lisinopril Adverse Reaction (Verified 03/31/24 11:43) Other Medications ???Medication ???Instructions ???Recorded ???Confirmed ???Type pravastatin 40 mg tablet 40 mg PO QHS cholesterol 09/19/14 03/31/24 History glimepiride 4 mg tablet 1 mg PO QAM diabetes 02/01/23 03/31/24 History potassium chloride 20 mEq 10 meq PO DAILY 02/01/23 03/31/24 History tablet,extended release metoprolol tartrate 25 mg tablet 25 mg PO BID #180 tabs 07/11/23 03/31/24 Rx levothyroxine 25 mcg tablet 25 mcg PO DAILY 02/20/24 03/31/24 History apixaban 2.5 mg tablet 2.5 mg PO BID blood thinner #60 03/27/24 03/31/24 Rx tabs amlodipine 5 mg tablet 5 mg PO DAILY #90 tabs 03/31/24 03/31/24 Rx furosemide 40 mg tablet 40 mg PO Q OTHER DAY PRN edema 03/31/24 03/31/24 History losartan 100 mg tablet 100 mg PO QDAY 03/31/24 03/31/24 History pantoprazole 40 mg tablet,delayed 40 mg PO QAM 03/31/24 03/31/24 History release Have you fallen in the past year?: No PFSH Medical History NSVT (nonsustained ventricular tachycardia) Aortic aneurysm without rupture Non-smoker Sleep apnea Atrial fibrillation Hypertension Chronic renal insufficiency, stage III (moderate) Closed head injury Fall Longstanding persistent atrial fibrillation Obstructive sleep apnea Right bundle branch block (RBBB) with left anterior fascicular block Left ventricular diastolic dysfunction Obesity Essential (primary) hypertension Nonrheumatic mitral (valve) insufficiency Non-rheumatic tricuspid valve insufficiency Paroxysmal atrial fibrillation Hyperlipidemia Diverticulosis Type 2 diabetes mellitus Diverticulitis large intestine Diverticula of colon Surgical History History of appendectomy History of cataract surgery History of tonsillectomy H/O hemicolectomy Hx of cholecystectomy Family History Father CVA (cerebral vascular accident) Mother Diabetes Sister Heart disease PPM Social History Smoking Status: Never smoker alcohol intake: current ROS Const Const: Negative for fatigue, weakness, headache(s), daytime sleepiness or difficulty sleeping ENT ENT: Negative for headache(s), dizziness or Nosebleed/epistaxis Cardio Chest Pain: No Palpitations: No Edema: None Resp Respiratory: Positive for SOB with activity; Negative for SOB (more content not included)... Normal [facility] Basic Metabolic Profile (BMP )on 03-09-2024 BUN/CRE 16.9 RATIO Normal 03-08 [facility] Comment on above: Performed By: #### L 501.9520, L500.4100, L501.9985, L100.0100, L500.4050, L506.1000 #### [facility] [address] [place], [address] CA,Total 8.7 mg/dL Normal 8.5-10.1 [facility] Comment on above: Performed By: #### L 501.9520, L500.4100, L501.9985, L100.0100, L500.4050, L506.1000 #### [facility] [address] [place], [address] Chloride [Moles/Vol] 106 mmol/L Normal 98-107 [facility] Comment on above: Performed By: #### L 501.9520, L500.4100, L501.9985, L100.0100, L500.4050, L506.1000 #### [facility] [address] [place], [address] CO2 [Moles/Vol] 22.0 mmol/L Normal 21.0-32.0 [facility] Comment on above: Performed By: #### L 501.9520, L500.4100, L501.9985, L100.0100, L500.4050, L506.1000 #### [facility] [address] [place], [address] Creatinine [Mass/Vol] 1.42 mg/dL High 0.70-1.30 [facility] Comment on above: Result Comment: The validity of the calculated GFR GFRAA in patients over 70 years has not been determined. Clinical correlation is essential. Performed By: #### L 501.9520, L500.4100, L501.9985, L100.0100, L500.4050, L506.1000 #### [facility] [address] [place], [address] EST GFR - AA 61 mL/min Normal >60 [facility] Comment on above: Result Comment: Afri can Scottish GFR Calc Performed By: #### L 501.9520, L500.4100, L501.9985, L100.0100, L500.4050, L506.1000 #### [facility] [address] [place], [address] GAP 5 Normal 5-15 [facility] Comment on above: Performed By: #### L 501.9520, L500.4100, L501.9985, L100.0100, L500.4050, L506.1000 #### [facility] [address] [place], [address] GFR/1.73 sq M.predicted among non-blacks MDRD (S/P/Bld) [Vol rate/Area] 50 mL/min/{1.73_m2} Low >60 [facility] Comment on above: Result Comment: Non- GFR Calc Performed By: #### L 501.9520, L500.4100, L501.9985, L100.0100, L500.4050, L506.1000 #### [facility] [address] [place], [address] Glucose [Mass/Vol] 113 mg/dL High 74-106 [facility] Comment on above: Result Comment: Fast ing Glucose result from 100 to 125 mg/dL suggests IMPAIRED HOMEOSTASIS per A.D.A. criteria. Performed By: #### L 501.9520, L500.4100, L501.9985, L100.0100, L500.4050, L506.1000 #### [facility] [address] [place], [address] Potassium [Moles/Vol] 4.7 mmol/L Normal 3.5-5.1 [facility] Comment on above: Performed By: #### L 501.9520, L500.4100, L501.9985, L100.0100, L500.4050, L506.1000 #### [facility] [address] [place], [address] Sodium [Moles/Vol] 133 mmol/L Low 136-145 [facility] Comment on above: Performed By: #### L 501.9520, L500.4100, L501.9985, L100.0100, L500.4050, L506.1000 #### [facility] [address] [place], [address] Urea nitrogen [Mass/Vol] 24 mg/dL High 7-18 [facility] Comment on above: Performed By: #### L 501.9520, L500.4100, L501.9985, L100.0100, L500.4050, L506.1000 #### [facility] [address] [place], [address] Basic Metabolic Profile (BMP )on 02-28-2024 BUN/CRE 17.2 RATIO Normal 10-20 [facility] Comment on above: Performed By: #### L 501.9520, L500.4100, L501.9985, L100.0100, L500.4050, L506.1000 #### [facility] [address] [place], [address] CA,Total 8.7 mg/dL Normal 8.5-10.1 [facility] Comment on above: Performed By: #### L 501.9520, L500.4100, L501.9985, L100.0100, L500.4050, L506.1000 #### [facility] [address] [place], [address] Chloride [Moles/Vol] 102 mmol/L Normal 98-107 [facility] Comment on above: Performed By: #### L 501.9520, L500.4100, L501.9985, L100.0100, L500.4050, L506.1000 #### [facility] [address] [place], [address] CO2 [Moles/Vol] 24.0 mmol/L Normal 21.0-32.0 [facility] Comment on above: Performed By: #### L 501.9520, L500.4100, L501.9985, L100.0100, L500.4050, L506.1000 #### [facility] [address] [place], [address] Creatinine [Mass/Vol] 1.34 mg/dL High 0.70-1.30 [facility] Comment on above: Result Comment: The validity of the calculated GFR GFRAA in patients over 70 years has not been determined. Clinical correlation is essential. Performed By: #### L 501.9520, L500.4100, L501.9985, L100.0100, L500.4050, L506.1000 #### [facility] [address] [place], [address] EST GFR - AA 65 mL/min Normal >60 [facility] Comment on above: Result Comment: Afri can Scottish GFR Calc Performed By: #### L 501.9520, L500.4100, L501.9985, L100.0100, L500.4050, L506.1000 #### [facility] [address] [place], [address] GAP 5 Normal 5-15 [facility] Comment on above: Performed By: #### L 501.9520, L500.4100, L501.9985, L100.0100, L500.4050, L506.1000 #### [facility] [address] [place], [address] GFR/1.73 sq M.predicted among non-blacks MDRD (S/P/Bld) [Vol rate/Area] 53 mL/min/{1.73_m2} Low >60 [facility] Comment on above: Result Comment: Non- GFR Calc Performed By: #### L 501.9520, L500.4100, L501.9985, L100.0100, L500.4050, L506.1000 #### [facility] [address] [place], [address] Glucose [Mass/Vol] 104 mg/dL Normal 74-106 [facility] Comment on above: Result Comment: Fast ing Glucose result from 100 to 125 mg/dL suggests IMPAIRED HOMEOSTASIS per A.D.A. criteria. Performed By: #### L 501.9520, L500.4100, L501.9985, L100.0100, L500.4050, L506.1000 #### [facility] [address] [place], [address] Potassium [Moles/Vol] 4.3 mmol/L Normal 3.5-5.1 [facility] Comment on above: Performed By: #### L 501.9520, L500.4100, L501.9985, L100.0100, L500.4050, L506.1000 #### [facility] [address] [place], [address] Sodium [Moles/Vol] 132 mmol/L Low 136-145 [facility] Comment on above: Performed By: #### L 501.9520, L500.4100, L501.9985, L100.0100, L500.4050, L506.1000 #### [facility] [address] [place], [address] Urea nitrogen [Mass/Vol] 23 mg/dL High 7-18 [facility] Comment on above: Performed By: #### L 501.9520, L500.4100, L501.9985, L100.0100, L500.4050, L506.1000 #### [facility] [address] [place], [address] Basic Metabolic Profile (BMP )on 02-21-2024 BUN/CRE 9.0 RATIO Low 10-20 [facility] Comment on above: Performed By: #### L 501.7300, L501.7400, L501.5500, L500.2500 #### [facility] [address] [place], [address] CA,Total 8.5 mg/dL Normal 8.5-10.1 [facility] Comment on above: Performed By: #### L 501.7300, L501.7400, L501.5500, L500.2500 #### [facility] [address] [place], [address] Chloride [Moles/Vol] 96 mmol/L Low 98-107 [facility] Comment on above: Performed By: #### L 501.7300, L501.7400, L501.5500, L500.2500 #### [facility] [address] [place], [address] CO2 [Moles/Vol] 28.0 mmol/L Normal 21.0-32.0 [facility] Comment on above: Performed By: #### L 501.7300, L501.7400, L501.5500, L500.2500 #### [facility] [address] [place], [address] Creatinine [Mass/Vol] 1.34 mg/dL High 0.70-1.30 [facility] Comment on above: Result Comment: The validity of the calculated GFR GFRAA in patients over 70 years has not been determined. Clinical correlation is essential. Performed By: #### L 501.7300, L501.7400, L501.5500, L500.2500 #### [facility] [address] [place], [address] EST GFR - AA 65 mL/min Normal >60 [facility] Comment on above: Result Comment: Afri can Scottish GFR Calc Performed By: #### L 501.7300, L501.7400, L501.5500, L500.2500 #### [facility] [address] [place], [address] GAP 4 Low 5-15 [facility] Comment on above: Performed By: #### L 501.7300, L501.7400, L501.5500, L500.2500 #### [facility] [address] [place], [address] GFR/1.73 sq M.predicted among non-blacks MDRD (S/P/Bld) [Vol rate/Area] 53 mL/min/{1.73_m2} Low >60 [facility] Comment on above: Result Comment: Non- GFR Calc Performed By: #### L 501.7300, L501.7400, L501.5500, L500.2500 #### [facility] [address] [place], [address] Glucose [Mass/Vol] 173 mg/dL High 74-106 [facility] Comment on above: Result Comment: Fast ing Glucose result greater than or equal to 126 mg/dL suggests DIABETES MELLITUS per A.D.A. criteria. Performed By: #### L 501.7300, L501.7400, L501.5500, L500.2500 #### [facility] [address] [place], [address] Potassium [Moles/Vol] 4.2 mmol/L Normal 3.5-5.1 [facility] Comment on above: Performed By: #### L 501.7300, L501.7400, L501.5500, L500.2500 #### [facility] [address] [place], [address] Sodium [Moles/Vol] 128 mmol/L Low 136-145 [facility] Comment on above: Performed By: #### L 501.7300, L501.7400, L501.5500, L500.2500 #### [facility] [address] [place], [address] Urea nitrogen [Mass/Vol] 12 mg/dL Normal 7-18 [facility] Comment on above: Performed By: #### L 501.7300, L501.7400, L501.5500, L500.2500 #### [facility] [address] [place], [address] Osmolality, Serumon 02-21-20 24 OSMOLALITY,SER 272 mOsm/KG Low 280-301 [facility] Comment on above: Performed By: #### L 501.7300, L501.7400, L501.5500, L500.2500 #### [facility] [address] [place], [address] Osmolality, Urineon 02-21-20 24 OSMOLALITY,UR 363 mOsm/KG Normal [facility] Comment on above: Result Comment: Normal Urine Reference Ranges Random: 50 - 1200 mOsm/kg H20 depending on fluid intake Random: >850 mOsm/kg after 12 hour fluid restriction 24 hour: 300 - 900 mOsm/kg H2O Performed By: #### L 501.7300, L501.7400, L501.5500, L500.2500 #### [facility] [address] [place], [address] Urine Sodiumon 02-21-2024 Sodium (U) [Moles/Vol] 56 mmol/L Normal Not Establ. [facility] Comment on above: Performed By: #### L 501.7300, L501.7400, L501.5500, L500.2500 #### [facility] [address] [place], [address] Abd Inc Decub and/or Erecton 02-20-2024 Abd Inc Decub and/or Erect [facility] Imaging Services [address] [place] [address] Abd Inc Decub and/or Erect MR#: [id number] Acct: [id number] Name: ASHIA PEREZ Rep #: [id number] : 1935 M 88 From: Chirag Mckeon MD PCP: Dr. Bernard Nugent MD Status: REG CLI Study: Abd Inc Decub and/or Erect Date of Exam: 02/19 Exam# [id number] Ordering Dr: Bernard Nugent MD [id number] STUDY: X-RAY - ABDOMEN/PELVIS REASON FOR EXAM: Male, 88 years old. PAIN TECHNIQUE: AP supine and upright views of the abdomen and pelvis. COMPARISON: None. FINDINGS: Normal visualized lung bases. There is an unremarkable bowel gas pattern. There is no demonstrated free abdominal air. The visualized liver, spleen and kidneys are grossly normal in size and morphology. Normal soft tissue structures. Normal visualized osseous structures. RAD/Abd Inc Decub and/or Erect IMPRESSION: Normal x-ray examination of the abdomen and pelvis. Electronically Signed: Chirag Mckeon MD at 11:00 EDT , CC: Dr. Bernard Nugent MD Digital Communications Manager: Signed Normal [facility] CBC W/Diff, Automatedon 10-0 -2023 Absolute Lymph 0.70 X10 3/uL Low 0.83-4.51 [facility] Comment on above: Performed By: #### L 501.9520, L500.4100, L501.9985, L100.0100, L500.4050, L506.1000 #### [facility] [address] [place], [address] Absolute Neut 6.3 X10 3/uL Normal 2.0-7.7 [facility] Comment on above: Performed By: #### L 501.9520, L500.4100, L501.9985, L100.0100, L500.4050, L506.1000 #### [facility] [address] [place], [address] Basophils/100 WBC (Bld) 0.5 % Normal 0-1 [facility] Comment on above: Performed By: #### L 501.9520, L500.4100, L501.9985, L100.0100, L500.4050, L506.1000 #### [facility] [address] [place], [address] Eosinophils/100 WBC (Bld) 0.3 % Normal 0-5 [facility] Comment on above: Performed By: #### L 501.9520, L500.4100, L501.9985, L100.0100, L500.4050, L506.1000 #### [facility] [address] [place], [address] Erythrocyte distribution width (RBC) [Ratio] 13.4 % Normal 11.6-14.6 [facility] Comment on above: Performed By: #### L 501.9520, L500.4100, L501.9985, L100.0100, L500.4050, L506.1000 #### [facility] [address] [place], [address] Hematocrit (Bld) [Volume fraction] 39.5 % Low 40-54 [facility] Comment on above: Performed By: #### L 501.9520, L500.4100, L501.9985, L100.0100, L500.4050, L506.1000 #### [facility] [address] [place], [address] Hemoglobin (Bld) [Mass/Vol] 13.4 g/dL Normal 13.0-16.5 [facility] Comment on above: Performed By: #### L 501.9520, L500.4100, L501.9985, L100.0100, L500.4050, L506.1000 #### [facility] [address] [place], [address] IG% 0.500 Normal 0.0-0.9 [facility] Comment on above: Result Comment: IG% - Immature Granulocytes (promyelocytes, myelocytes and metamyelocytes) > 1% indicates that a LEFT SHIFT is Present. Performed By: #### L 501.9520, L500.4100, L501.9985, L100.0100, L500.4050, L506.1000 #### [facility] [address] [place], [address] Lymphocytes/100 WBC (Bld) 8.9 % Low 19-41 [facility] Comment on above: Performed By: #### L 501.9520, L500.4100, L501.9985, L100.0100, L500.4050, L506.1000 #### [facility] [address] [place], [address] MCH (RBC) [Entitic mass] 29.0 pg Normal 27.0-32.0 [facility] Comment on above: Performed By: #### L 501.9520, L500.4100, L501.9985, L100.0100, L500.4050, L506.1000 #### [facility] [address] [place], [address] MCHC (RBC) [Mass/Vol] 33.9 g/dL Normal 32-36 [facility] Comment on above: Performed By: #### L 501.9520, L500.4100, L501.9985, L100.0100, L500.4050, L506.1000 #### [facility] [address] [place], [address] MCV (RBC) [Entitic vol] 85.5 fL Normal 80-94 [facility] Comment on above: Performed By: #### L 501.9520, L500.4100, L501.9985, L100.0100, L500.4050, L506.1000 #### [facility] [address] [place], [address] Monocytes/100 WBC (Bld) 10.5 % High 0-10 [facility] Comment on above: Performed By: #### L 501.9520, L500.4100, L501.9985, L100.0100, L500.4050, L506.1000 #### [facility] [address] [place], [address] Neutrophils/100 WBC (Bld) 79.3 % High 47-70 [facility] Comment on above: Performed By: #### L 501.9520, L500.4100, L501.9985, L100.0100, L500.4050, L506.1000 #### [facility] [address] [place], [address] Nucleated RBC (Bld) [#/Vol] 0 10*3/uL Normal 0-5 [facility] Comment on above: Performed By: #### L 501.9520, L500.4100, L501.9985, L100.0100, L500.4050, L506.1000 #### [facility] [address] [place], [address] Platelet mean volume (Bld) [Entitic vol] 11.0 fL Normal 6.2-12.0 [facility] Comment on above: Performed By: #### L 501.9520, L500.4100, L501.9985, L100.0100, L500.4050, L506.1000 #### [facility] [address] [place], [address] Platelets (Bld) [#/Vol] 196 10*3/uL Normal 150-450 [facility] Comment on above: Performed By: #### L 501.9520, L500.4100, L501.9985, L100.0100, L500.4050, L506.1000 #### [facility] [address] [place], [address] RBC (Bld) [#/Vol] 4.62 10*6/uL Normal 4.6-6.2 [facility] Comment on above: Performed By: #### L 501.9520, L500.4100, L501.9985, L100.0100, L500.4050, L506.1000 #### [facility] [address] [place], [address] RDW SD 41.8 fl Normal 35.1-43.9 [facility] Comment on above: Performed By: #### L 501.9520, L500.4100, L501.9985, L100.0100, L500.4050, L506.1000 #### [facility] [address] [place], [address] WBC (Bld) [#/Vol] 7.9 10*3/uL Normal 4.4-11.0 [facility] Comment on above: Performed By: #### L 501.9520, L500.4100, L501.9985, L100.0100, L500.4050, L506.1000 #### [facility] [address] [place], [address] Comprehensive Metabolic [facility] 02-20-2024 Albumin [Mass/Vol] 3.5 g/dL Normal 3.2-5.0 [facility] Comment on above: Performed By: #### L 501.9520, L500.4100, L501.9985, L100.0100, L500.4050, L506.1000 #### [facility] [address] [place], [address] Albumin/Globulin [Mass ratio] 1.0 {ratio} Normal 0.9-2.4 [facility] Comment on above: Performed By: #### L 501.9520, L500.4100, L501.9985, L100.0100, L500.4050, L506.1000 #### [facility] [address] [place], [address] ALK P 103 U/L Normal 45-117 [facility] Comment on above: Performed By: #### L 501.9520, L500.4100, L501.9985, L100.0100, L500.4050, L506.1000 #### [facility] [address] [place], [address] ALT [Catalytic activity/Vol] 26 U/L Normal 16-61 [facility] Comment on above: Performed By: #### L 501.9520, L500.4100, L501.9985, L100.0100, L500.4050, L506.1000 #### [facility] [address] [place], [address] AST [Catalytic activity/Vol] 22 U/L Normal 15-37 [facility] Comment on above: Performed By: #### L 501.9520, L500.4100, L501.9985, L100.0100, L500.4050, L506.1000 #### [facility] [address] [place], [address] Bilirubin [Mass/Vol] 3.00 mg/dL High 0.20-1.00 [facility] Comment on above: Result Comment: For patients on eltrombopag therapy, use of Dimension Ringold TBIL is not recommended. Performed By: #### L 501.9520, L500.4100, L501.9985, L100.0100, L500.4050, L506.1000 #### [facility] [address] [place], [address] BUN/CRE 9.3 RATIO Low 10-20 [facility] Comment on above: Performed By: #### L 501.9520, L500.4100, L501.9985, L100.0100, L500.4050, L506.1000 #### [facility] [address] [place], [address] CA,Total 8.7 mg/dL Normal 8.5-10.1 [facility] Comment on above: Performed By: #### L 501.9520, L500.4100, L501.9985, L100.0100, L500.4050, L506.1000 #### [facility] [address] [place], [address] Chloride [Moles/Vol] 93 mmol/L Low 98-107 [facility] Comment on above: Performed By: #### L 501.9520, L500.4100, L501.9985, L100.0100, L500.4050, L506.1000 #### [facility] [address] [place], [address] CO2 [Moles/Vol] 28.0 mmol/L Normal 21.0-32.0 [facility] Comment on above: Performed By: #### L 501.9520, L500.4100, L501.9985, L100.0100, L500.4050, L506.1000 #### [facility] [address] [place], [address] Creatinine [Mass/Vol] 1.29 mg/dL Normal 0.70-1.30 [facility] Comment on above: Result Comment: The validity of the calculated GFR GFRAA in patients over 70 years has not been determined. Clinical correlation is essential. Performed By: #### L 501.9520, L500.4100, L501.9985, L100.0100, L500.4050, L506.1000 #### [facility] [address] [place], [address] EST GFR - AA 68 mL/min Normal >60 [facility] Comment on above: Result Comment: Afri can Scottish GFR Calc Performed By: #### L 501.9520, L500.4100, L501.9985, L100.0100, L500.4050, L506.1000 #### [facility] [address] [place], [address] GAP 5 Normal 5-15 [facility] Comment on above: Performed By: #### L 501.9520, L500.4100, L501.9985, L100.0100, L500.4050, L506.1000 #### [facility] [address] [place], [address] GFR/1.73 sq M.predicted among non-blacks MDRD (S/P/Bld) [Vol rate/Area] 56 mL/min/{1.73_m2} Low >60 [facility] Comment on above: Result Comment: Non- GFR Calc Performed By: #### L 501.9520, L500.4100, L501.9985, L100.0100, L500.4050, L506.1000 #### [facility] [address] [place], [address] Globulin (S) [Mass/Vol] 3.4 g/dL Normal 2.2-4.2 [facility] Comment on above: Performed By: #### L 501.9520, L500.4100, L501.9985, L100.0100, L500.4050, L506.1000 #### [facility] [address] [place], [address] Glucose [Mass/Vol] 162 mg/dL High 74-106 [facility] Comment on above: Result Comment: Fast ing Glucose result greater than or equal to 126 mg/dL suggests DIABETES MELLITUS per A.D.A. criteria. Performed By: #### L 501.9520, L500.4100, L501.9985, L100.0100, L500.4050, L506.1000 #### [facility] [address] [place], [address] Potassium [Moles/Vol] 4.3 mmol/L Normal 3.5-5.1 [facility] Comment on above: Performed By: #### L 501.9520, L500.4100, L501.9985, L100.0100, L500.4050, L506.1000 #### [facility] [address] [place], [address] Sodium [Moles/Vol] 126 mmol/L Low 136-145 [facility] Comment on above: Performed By: #### L 501.9520, L500.4100, L501.9985, L100.0100, L500.4050, L506.1000 #### [facility] [address] [place], [address] T PROT 6.9 g/dL Normal 6.4-8.2 [facility] Comment on above: Performed By: #### L 501.9520, L500.4100, L501.9985, L100.0100, L500.4050, L506.1000 #### [facility] [address] [place], [address] Urea nitrogen [Mass/Vol] 12 mg/dL Normal 7-18 [facility] Comment on above: Performed By: #### L 501.9520, L500.4100, L501.9985, L100.0100, L500.4050, L506.1000 #### [facility] [address] [place], [address] Urinalysis, Completeon 02-19 RBC 5-10 SEEN Normal 0-5 [facility] Comment on above: Order Comment: Urine , Random Performed By: #### L 501.9520, L500.4100, L501.9985, L100.0100, L500.4050, L506.1000 #### [facility] [address] [place], [address] BILIRUBIN URINE Negative Normal Negative [facility] Comment on above: Order Comment: Urine , Random Performed By: #### L 501.9520, L500.4100, L501.9985, L100.0100, L500.4050, L506.1000 #### [facility] [address] [place], [address] Clarity (U) Clear Normal Clear [facility] Comment on above: Order Comment: Urine , Random Performed By: #### L 501.9520, L500.4100, L501.9985, L100.0100, L500.4050, L506.1000 #### [facility] [address] [place], [address] Color (U) Straw Normal Yellow [facility] Comment on above: Order Comment: Urine , Random Performed By: #### L 501.9520, L500.4100, L501.9985, L100.0100, L500.4050, L506.1000 #### [facility] [address] [place], [address] GLUCOSE, UR Normal Normal Normal [facility] Comment on above: Order Comment: Urine , Random Performed By: #### L 501.9520, L500.4100, L501.9985, L100.0100, L500.4050, L506.1000 #### [facility] [address] [place], [address] KETONE UR Negative Normal Negative [facility] Comment on above: Order Comment: Urine , Random Performed By: #### L 501.9520, L500.4100, L501.9985, L100.0100, L500.4050, L506.1000 #### [facility] [address] [place], [address] LEUK ESTERASE Negative Normal Negative [facility] Comment on above: Order Comment: Urine , Random Performed By: #### L 501.9520, L500.4100, L501.9985, L100.0100, L500.4050, L506.1000 #### [facility] [address] [place], [address] Nitrite Ql (U) Negative Normal Negative [facility] Comment on above: Order Comment: Urine , Random Performed By: #### L 501.9520, L500.4100, L501.9985, L100.0100, L500.4050, L506.1000 #### [facility] [address] [place], [address] OCCULT BLOOD-UR 10 /ul Abnormal Negative [facility] Comment on above: Order Comment: Urine , Random Performed By: #### L 501.9520, L500.4100, L501.9985, L100.0100, L500.4050, L506.1000 #### [facility] [address] [place], [address] pH UR 7.0 Normal 5.0 - 8.0 [facility] Comment on above: Order Comment: Urine , Random Performed By: #### L 501.9520, L500.4100, L501.9985, L100.0100, L500.4050, L506.1000 #### [facility] [address] [place], [address] PROT DIPSTX 30 mg/dl Abnormal Negative [facility] Comment on above: Order Comment: Urine , Random Performed By: #### L 501.9520, L500.4100, L501.9985, L100.0100, L500.4050, L506.1000 #### [facility] [address] [place], [address] SP.GR. DIPSTX 1.005 Normal 1.002-1.030 [facility] Comment on above: Order Comment: Urine , Random Performed By: #### L 501.9520, L500.4100, L501.9985, L100.0100, L500.4050, L506.1000 #### [facility] [address] [place], [address] UROBILI Normal Normal Normal [facility] Comment on above: Order Comment: Urine , Random Performed By: #### L 501.9520, L500.4100, L501.9985, L100.0100, L500.4050, L506.1000 #### [facility] [address] [place], [address] BACTERIA 0 SEEN Normal None Seen [facility] Comment on above: Order Comment: Urine , Random Performed By: #### L 501.9520, L500.4100, L501.9985, L100.0100, L500.4050, L506.1000 #### [facility] [address] [place], [address] EPI,SQUAMOUS 0 SEEN Normal 0-5 [facility] Comment on above: Order Comment: Urine , Random Performed By: #### L 501.9520, L500.4100, L501.9985, L100.0100, L500.4050, L506.1000 #### [facility] [address] [place], [address] Mucus Ql (Urine sed) 0 SEEN Normal [facility] Comment on above: Order Comment: Urine , Random Performed By: #### L 501.9520, L500.4100, L501.9985, L100.0100, L500.4050, L506.1000 #### [facility] [address] [place], [address] WBC 0 SEEN Normal 0-5 [facility] Comment on above: Order Comment: Urine , Random Performed By: #### L 501.9520, L500.4100, L501.9985, L100.0100, L500.4050, L506.1000 #### [facility] [address] [place], [address] CBC W/Diff, Automatedon 09-0 Absolute Lymph 1.05 X10 3/uL Normal 0.83-4.51 [facility] Comment on above: Performed By: #### L 501.9520, L500.4100, L501.9985, L100.0100, L500.4050, L506.1000 #### [facility] [address] [place], [address] Absolute Neut 5.6 X10 3/uL Normal 2.0-7.7 [facility] Comment on above: Performed By: #### L 501.9520, L500.4100, L501.9985, L100.0100, L500.4050, L506.1000 #### [facility] [address] [place], [address] Basophils/100 WBC (Bld) 0.7 % Normal 0-1 [facility] Comment on above: Performed By: #### L 501.9520, L500.4100, L501.9985, L100.0100, L500.4050, L506.1000 #### [facility] [address] [place], [address] Eosinophils/100 WBC (Bld) 4.7 % Normal 0-5 [facility] Comment on above: Performed By: #### L 501.9520, L500.4100, L501.9985, L100.0100, L500.4050, L506.1000 #### [facility] [address] [place], [address] Erythrocyte distribution width (RBC) [Ratio] 12.9 % Normal 11.6-14.6 [facility] Comment on above: Performed By: #### L 501.9520, L500.4100, L501.9985, L100.0100, L500.4050, L506.1000 #### [facility] [address] [place], [address] Hematocrit (Bld) [Volume fraction] 40.8 % Normal 40-54 [facility] Comment on above: Performed By: #### L 501.9520, L500.4100, L501.9985, L100.0100, L500.4050, L506.1000 #### [facility] [address] [place], [address] Hemoglobin (Bld) [Mass/Vol] 13.6 g/dL Normal 13.0-16.5 [facility] Comment on above: Performed By: #### L 501.9520, L500.4100, L501.9985, L100.0100, L500.4050, L506.1000 #### [facility] [address] [place], [address] IG% 0.600 Normal 0.0-0.9 [facility] Comment on above: Result Comment: IG% - Immature Granulocytes (promyelocytes, myelocytes and metamyelocytes) > 1% indicates that a LEFT SHIFT is Present. Performed By: #### L 501.9520, L500.4100, L501.9985, L100.0100, L500.4050, L506.1000 #### [facility] [address] [place], [address] Lymphocytes/100 WBC (Bld) 13.1 % Low 19-41 [facility] Comment on above: Performed By: #### L 501.9520, L500.4100, L501.9985, L100.0100, L500.4050, L506.1000 #### [facility] [address] [place], [address] MCH (RBC) [Entitic mass] 29.4 pg Normal 27.0-32.0 [facility] Comment on above: Performed By: #### L 501.9520, L500.4100, L501.9985, L100.0100, L500.4050, L506.1000 #### [facility] [address] [place], [address] MCHC (RBC) [Mass/Vol] 33.3 g/dL Normal 32-36 [facility] Comment on above: Performed By: #### L 501.9520, L500.4100, L501.9985, L100.0100, L500.4050, L506.1000 #### [facility] [address] [place], [address] MCV (RBC) [Entitic vol] 88.3 fL Normal 80-94 [facility] Comment on above: Performed By: #### L 501.9520, L500.4100, L501.9985, L100.0100, L500.4050, L506.1000 #### [facility] [address] [place], [address] Monocytes/100 WBC (Bld) 11.3 % High 0-10 [facility] Comment on above: Performed By: #### L 501.9520, L500.4100, L501.9985, L100.0100, L500.4050, L506.1000 #### [facility] [address] [place], [address] Neutrophils/100 WBC (Bld) 69.6 % Normal 47-70 [facility] Comment on above: Performed By: #### L 501.9520, L500.4100, L501.9985, L100.0100, L500.4050, L506.1000 #### [facility] [address] [place], [address] Nucleated RBC (Bld) [#/Vol] 0 10*3/uL Normal 0-5 [facility] Comment on above: Performed By: #### L 501.9520, L500.4100, L501.9985, L100.0100, L500.4050, L506.1000 #### [facility] [address] [place], [address] Platelet mean volume (Bld) [Entitic vol] 10.7 fL Normal 6.2-12.0 [facility] Comment on above: Performed By: #### L 501.9520, L500.4100, L501.9985, L100.0100, L500.4050, L506.1000 #### [facility] [address] [place], [address] Platelets (Bld) [#/Vol] 171 10*3/uL Normal 150-450 [facility] Comment on above: Performed By: #### L 501.9520, L500.4100, L501.9985, L100.0100, L500.4050, L506.1000 #### [facility] [address] [place], [address] RBC (Bld) [#/Vol] 4.62 10*6/uL Normal 4.6-6.2 [facility] Comment on above: Performed By: #### L 501.9520, L500.4100, L501.9985, L100.0100, L500.4050, L506.1000 #### [facility] [address] [place], [address] RDW SD 41.4 fl Normal 35.1-43.9 [facility] Comment on above: Performed By: #### L 501.9520, L500.4100, L501.9985, L100.0100, L500.4050, L506.1000 #### [facility] [address] [place], [address] WBC (Bld) [#/Vol] 8.0 10*3/uL Normal 4.4-11.0 [facility] Comment on above: Performed By: #### L 501.9520, L500.4100, L501.9985, L100.0100, L500.4050, L506.1000 #### [facility] [address] [place], [address] Comprehensive Metabolic Prof ilon 01-24-2024 Albumin [Mass/Vol] 3.3 g/dL Normal 3.2-5.0 [facility] Comment on above: Performed By: #### L 501.9520, L500.4100, L501.9985, L100.0100, L500.4050, L506.1000 #### [facility] [address] [place], [address] Albumin/Globulin [Mass ratio] 0.9 {ratio} Normal 0.9-2.4 [facility] Comment on above: Performed By: #### L 501.9520, L500.4100, L501.9985, L100.0100, L500.4050, L506.1000 #### [facility] [address] [place], [address] ALK P 136 U/L High 45-117 [facility] Comment on above: Performed By: #### L 501.9520, L500.4100, L501.9985, L100.0100, L500.4050, L506.1000 #### [facility] [address] [place], [address] ALT [Catalytic activity/Vol] 22 U/L Normal 16-61 [facility] Comment on above: Performed By: #### L 501.9520, L500.4100, L501.9985, L100.0100, L500.4050, L506.1000 #### [facility] [address] [place], [address] AST [Catalytic activity/Vol] 19 U/L Normal 15-37 [facility] Comment on above: Result Comment: Slig ht Hemolysis, Result may be falsely increased. Performed By: #### L 501.9520, L500.4100, L501.9985, L100.0100, L500.4050, L506.1000 #### [facility] [address] [place], [address] Bilirubin [Mass/Vol] 1.50 mg/dL High 0.20-1.00 [facility] Comment on above: Result Comment: For patients on eltrombopag therapy, use of Dimension Ringold TBIL is not recommended. Performed By: #### L 501.9520, L500.4100, L501.9985, L100.0100, L500.4050, L506.1000 #### [facility] [address] [place], [address] BUN/CRE 10.2 RATIO Normal 10-20 [facility] Comment on above: Performed By: #### L 501.9520, L500.4100, L501.9985, L100.0100, L500.4050, L506.1000 #### [facility] [address] [place], [address] CA,Total 8.6 mg/dL Normal 8.5-10.1 [facility] Comment on above: Performed By: #### L 501.9520, L500.4100, L501.9985, L100.0100, L500.4050, L506.1000 #### [facility] [address] [place], [address] Chloride [Moles/Vol] 98 mmol/L Normal 98-107 [facility] Comment on above: Performed By: #### L 501.9520, L500.4100, L501.9985, L100.0100, L500.4050, L506.1000 #### [facility] [address] [place], [address] CO2 [Moles/Vol] 27.0 mmol/L Normal 21.0-32.0 [facility] Comment on above: Performed By: #### L 501.9520, L500.4100, L501.9985, L100.0100, L500.4050, L506.1000 #### [facility] [address] [place], [address] Creatinine [Mass/Vol] 1.67 mg/dL High 0.70-1.30 [facility] Comment on above: Result Comment: The validity of the calculated GFR GFRAA in patients over 70 years has not been determined. Clinical correlation is essential. Performed By: #### L 501.9520, L500.4100, L501.9985, L100.0100, L500.4050, L506.1000 #### [facility] [address] [place], [address] EST GFR - AA 50 mL/min Low >60 [facility] Comment on above: Result Comment: Afri can Scottish GFR Calc Performed By: #### L 501.9520, L500.4100, L501.9985, L100.0100, L500.4050, L506.1000 #### [facility] [address] [place], [address] GAP 7 Normal 5-15 [facility] Comment on above: Performed By: #### L 501.9520, L500.4100, L501.9985, L100.0100, L500.4050, L506.1000 #### [facility] [address] [place], [address] GFR/1.73 sq M.predicted among non-blacks MDRD (S/P/Bld) [Vol rate/Area] 41 mL/min/{1.73_m2} Low >60 [facility] Comment on above: Result Comment: Non- GFR Calc Performed By: #### L 501.9520, L500.4100, L501.9985, L100.0100, L500.4050, L506.1000 #### [facility] [address] [place], [address] Globulin (S) [Mass/Vol] 3.8 g/dL Normal 2.2-4.2 [facility] Comment on above: Performed By: #### L 501.9520, L500.4100, L501.9985, L100.0100, L500.4050, L506.1000 #### [facility] [address] [place], [address] Glucose [Mass/Vol] 190 mg/dL High 74-106 [facility] Comment on above: Result Comment: Fast ing Glucose result greater than or equal to 126 mg/dL suggests DIABETES MELLITUS per A.D.A. criteria. Performed By: #### L 501.9520, L500.4100, L501.9985, L100.0100, L500.4050, L506.1000 #### [facility] [address] [place], [address] Potassium [Moles/Vol] 4.6 mmol/L Normal 3.5-5.1 [facility] Comment on above: Result Comment: Slig ht Hemolysis, Result may be falsely increased. Performed By: #### L 501.9520, L500.4100, L501.9985, L100.0100, L500.4050, L506.1000 #### [facility] [address] [place], [address] Sodium [Moles/Vol] 132 mmol/L Low 136-145 [facility] Comment on above: Performed By: #### L 501.9520, L500.4100, L501.9985, L100.0100, L500.4050, L506.1000 #### [facility] [address] [place], [address] T PROT 7.1 g/dL Normal 6.4-8.2 [facility] Comment on above: Performed By: #### L 501.9520, L500.4100, L501.9985, L100.0100, L500.4050, L506.1000 #### [facility] [address] [place], [address] Urea nitrogen [Mass/Vol] 17 mg/dL Normal 7-18 [facility] Comment on above: Performed By: #### L 501.9520, L500.4100, L501.9985, L100.0100, L500.4050, L506.1000 #### [facility] [address] [place], [address] Hemoglobin A1con 01-24-2024 HbA1c (Bld) [Mass fraction] 6.1 % High 3.8-5.6 [facility] Comment on above: Result Comment: Norm al < 5.7 % Prediabetic 5.7 - 6.4 % Diabetic >or= 6.5 % Please note range changes. Performed By: #### L 501.9520, L500.4100, L501.9985, L100.0100, L500.4050, L506.1000 #### [facility] [address] [place], [address] Lipid Profileon 01-24-2024 Cholesterol [Mass/Vol] 113 mg/dL Normal 200 [facility] Comment on above: Result Comment: <200 mg/dL Desirable 200-240 mg/dL Borderline >240 mg/dL High Risk Performed By: #### L 501.9520, L500.4100, L501.9985, L100.0100, L500.4050, L506.1000 #### [facility] [address] [place], [address] Cholesterol in HDL [Mass/Vol] 56 mg/dL Normal [facility] Comment on above: Result Comment: The drugs N-Acetylcysteine and Metamizole may falsely depress this assay. Reference Range HDL <40 mg/dL Low HDL Cholesterol HDL >or= 60 mg/dL High HDL Cholesterol Performed By: #### L 501.9520, L500.4100, L501.9985, L100.0100, L500.4050, L506.1000 #### [facility] [address] [place], [address] Cholesterol in LDL [Mass/Vol] 41 mg/dL Normal 0-130 [facility] Comment on above: Performed By: #### L 501.9520, L500.4100, L501.9985, L100.0100, L500.4050, L506.1000 #### [facility] [address] [place], [address] Cholesterol in VLDL [Mass/Vol] 16 mg/dL Normal 5-40 [facility] Comment on above: Performed By: #### L 501.9520, L500.4100, L501.9985, L100.0100, L500.4050, L506.1000 #### [facility] [address] [place], [address] Triglyceride [Mass/Vol] 80 mg/dL Normal [facility] Comment on above: Result Comment: The drugs N-Acetylcysteine and Metamizole may falsely depress this assay. Serum Triglycerides Reference Interval Normal <150 mg/dL Borderline high 150 - 199 mg/dL High 200 - 499 mg/dL Very High > or = 500 mg/dL Performed By: #### L 501.9520, L500.4100, L501.9985, L100.0100, L500.4050, L506.1000 #### [facility] [address] [place], [address] Thyroid Stim Hormone (TSH)on 01-24-2024 TSH 2.480 uIU/mL Normal 0.358-3.740 [facility] Comment on above: Performed By: #### L 501.9520, L500.4100, L501.9985, L100.0100, L500.4050, L506.1000 #### [facility] [address] [place], [address] Vitamin D,25 Hydroxyon 01-23 Vitamin D 25-OH 33.6 ng/mL Normal [facility] Comment on above: Result Comment: Mary min D 25(OH) Status Range Deficiency <20 ng/mL (50nmol/L) Insufficiency 20 - 30 ng/mL (50 - 75 nmol/L) Sufficiency 30 - 100 ng/mL (75 - 250 nmol/L) Toxicity >100 ng/mL (>250 nmol/L) Performed By: #### L 501.9520, L500.4100, L501.9985, L100.0100, L500.4050, L506.1000 #### [facility] [address] [place], [address] Cardiology Visit Reporton Cardiology Visit Report [facility] [address] [place], [place] [address] OFFICE VISIT Date of Service: 11/11/23 MR#: [id number] Acct: [id number] Name: ASHIA PEREZ Rep #: [id number] : 1935 Provider: ANDRES Wyman Age/Sex: 88/M Location: [facility] Status: Signed HPI HPI History of Present Illness Details: ASHIA PEREZ, is a 88 M with a history of paroxysmal atrial fibrillation, hypertension, and chronic right bundle branch block. Echocardiogram in 2019 demonstrated stage III diastolic dysfunction, estimated ejection fraction of 55% and severe left ventricular hypertrophy. In October of 2021 he presented to the ER for syncope.??? His Metoprolol was decreased from 100 mg to 50 mg.??? He then presented back to the ER, 12/19/21, for increase SOB.??? He he was noted to be bradycardic.??? His Diltiazem was stopped.??? He then noted that he had a HR in the 30's.??? Rhythm indicated that it was junctional.??? His metoprolol has been decreased to 25 mg. 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 Device report received on 07/05/2023 showing 2 high ventricular rate episodes consistent with nonsustained ventricular tachycardia and longest episode lasting 25 beats. We had increased his metoprolol. He was in the emergency room on 07/07/2023 with complaints of being shortness of breath, dizziness and weakness. Troponins were negative, BNP was elevated. Chest x-ray demonstrated mild pulmonary edema. It was noted that his aorta was mildly dilated at 4.[address] scan. It was felt that his blood pressure was not well-controlled and that contributed to his symptoms. Norvasc as added to his medications. He does not have any cardiac symptoms and is not able to take his his blood pressure at home due to his vision. He denies chest pain, shortness of breath, palpitations. Intake Vital Signs 08/08/23 09:58 11/11/23 11:04 11/11/23 11:10 Height 5 ft 10 in 5 ft 10 in 5 ft 10 in Weight: 213 lb BMI 30.5 BP 145/73 H Blood Pressure Location Lt brachial Position Sitting Respiration 18 Pulse 62 Pulse Source Monitor Pulse Oximetry (%) 100 Intake Visit Reasons: 3 M Report Checker Required: No Is patient in pain?: No Allergies codeine Adverse Reaction (Verified 11/11/23 11:05) Other lisinopril Adverse Reaction (Verified 11/11/23 11:05) Other Medications ???Medication ???Instructions ???Recorded ???Confirmed ???Type omeprazole 20 mg capsule,delayed 20 mg PO DAILY reflux 09/19/14 11/11/23 History release pravastatin 40 mg tablet 40 mg PO QHS cholesterol 09/19/14 11/11/23 History glimepiride 4 mg tablet 1 mg PO QAM diabetes 02/01/23 11/11/23 History potassium chloride 20 mEq 10 meq PO DAILY 02/01/23 11/11/23 History tablet,extended release apixaban 2.5 mg tablet 2.5 mg PO BID blood thinner #180 04/01/23 11/11/23 Rx tabs furosemide 40 mg tablet 40 mg PO Q OTHER DAY edema #90 tabs 07/05/23 11/11/23 Rx metoprolol tartrate 25 mg tablet 25 mg PO BID #180 tabs 07/11/23 11/11/23 Rx amlodipine 2.5 mg tablet (Norvasc) 2.5 mg PO DAILY #90 tabs 08/08/23 11/11/23 Rx Have you fallen in the past year?: No PFSH Medical History NSVT (nonsustained ventricular tachycardia) Aortic aneurysm without rupture Non-smoker Sleep apnea Atrial fibrillation Hypertension Chronic renal insufficiency, stage III (moderate) Closed head injury Fall Longstanding persistent atrial fibrillation Obstructive sleep apnea Right bundle branch block (RBBB) with left anterior fascicular block Left ventricular diastolic dysfunction Obesity Essential (primary) hypertension Nonrheumatic mitral (valve) insufficiency Non-rheumatic tricuspid valve insufficiency Paroxysmal atrial fibrillation Hyperlipidemia Diverticulosis Type 2 diabetes mellitus Diverticulitis large intestine Diverticula of colon Surgical History History of appendectomy History of cataract surgery History of tonsillectomy H/O hemicolectomy Hx of cholecystectomy Family History Father CVA (cerebral vascular accident) Mother Diabetes Sister Heart disease PPM Social History Smoking Status: Never smoker alcohol intake: current ROS Const Const: Positive for difficulty sleeping; Negative for fatigue, weakness, headache(s) or daytime sleepiness Eyes Eyes: Positive for change in vision (legally blind ) ENT ENT: Negative for headache(s), dizziness or Nosebleed/epistaxis Cardio Chest Pain: No Palpitations: No Edema: Bilateral Muscle aches with walking: None Resp Respiratory: Positive for SO (more content not included)... Normal [facility] Microalb:Creat Ratio,Random URon 11-04-2023 Creatinine [Mass/Vol] 24.60 mg/dL Normal NO RAN GE EST. [facility] Comment on above: Performed By: #### L 501.9520, L500.4100, L501.9985, L100.0100, L500.4050, L506.1000 #### [facility] [place], [address] MALB:CRE 540.6 mg/g CRE High <30 mg/g CRE [facility] Comment on above: Performed By: #### L 501.9520, L500.4100, L501.9985, L100.0100, L500.4050, L506.1000 #### [facility] [address] [place], [address] MICROALBUMIN,UR 133.0 mg/L Normal NO RANGE EST. [facility] Comment on above: Performed By: #### L 501.9520, L500.4100, L501.9985, L100.0100, L500.4050, L506.1000 #### [facility] [address] [place], [address] Renal Profileon 11-04-2023 Albumin [Mass/Vol] 3.5 g/dL Normal 3.2-5.0 [facility] Comment on above: Performed By: #### L 501.9520, L500.4100, L501.9985, L100.0100, L500.4050, L506.1000 #### [facility] [address] [place], [address] BUN/CRE 12.7 RATIO Normal 10-20 [facility] Comment on above: Performed By: #### L 501.9520, L500.4100, L501.9985, L100.0100, L500.4050, L506.1000 #### [facility] [address] [place], [address] CA,Total 9.0 mg/dL Normal 8.5-10.1 [facility] Comment on above: Performed By: #### L 501.9520, L500.4100, L501.9985, L100.0100, L500.4050, L506.1000 #### [facility] [address] [place], [address] Chloride [Moles/Vol] 102 mmol/L Normal 98-107 [facility] Comment on above: Performed By: #### L 501.9520, L500.4100, L501.9985, L100.0100, L500.4050, L506.1000 #### [facility] [address] [place], [address] CO2 [Moles/Vol] 28.0 mmol/L Normal 21.0-32.0 [facility] Comment on above: Performed By: #### L 501.9520, L500.4100, L501.9985, L100.0100, L500.4050, L506.1000 #### [facility] [address] [place], [address] Creatinine [Mass/Vol] 1.50 mg/dL High 0.70-1.30 [facility] Comment on above: Result Comment: The validity of the calculated GFR GFRAA in patients over 70 years has not been determined. Clinical correlation is essential. Performed By: #### L 501.9520, L500.4100, L501.9985, L100.0100, L500.4050, L506.1000 #### [facility] [address] [place], [address] EST GFR - AA 57 mL/min Low >60 [facility] Comment on above: Result Comment: Afri can Scottish GFR Calc Performed By: #### L 501.9520, L500.4100, L501.9985, L100.0100, L500.4050, L506.1000 #### [facility] [address] [place], [address] GFR/1.73 sq M.predicted among non-blacks MDRD (S/P/Bld) [Vol rate/Area] 47 mL/min/{1.73_m2} Low >60 [facility] Comment on above: Result Comment: Non- GFR Calc Performed By: #### L 501.9520, L500.4100, L501.9985, L100.0100, L500.4050, L506.1000 #### [facility] [address] [place], [address] Glucose [Mass/Vol] 140 mg/dL High 74-106 [facility] Comment on above: Result Comment: Fast ing Glucose result greater than or equal to 126 mg/dL suggests DIABETES MELLITUS per A.D.A. criteria. Performed By: #### L 501.9520, L500.4100, L501.9985, L100.0100, L500.4050, L506.1000 #### [facility] [address] [place], [address] Phosphate [Mass/Vol] 3.0 mg/dL Normal 2.5-4.9 [facility] Comment on above: Performed By: #### L 501.9520, L500.4100, L501.9985, L100.0100, L500.4050, L506.1000 #### [facility] [address] [place], [address] Potassium [Moles/Vol] 4.3 mmol/L Normal 3.5-5.1 [facility] Comment on above: Performed By: #### L 501.9520, L500.4100, L501.9985, L100.0100, L500.4050, L506.1000 #### [facility] [address] [place], [address] Sodium [Moles/Vol] 136 mmol/L Normal 136-145 [facility] Comment on above: Performed By: #### L 501.9520, L500.4100, L501.9985, L100.0100, L500.4050, L506.1000 #### [facility] [address] [place], [address] Urea nitrogen [Mass/Vol] 19 mg/dL High 7-18 [facility] Comment on above: Performed By: #### L 501.9520, L500.4100, L501.9985, L100.0100, L500.4050, L506.1000 #### [facility] [address] [place], [address] Absolute lymphocyte countOrd ered By: Bernard Nugent on 07-24-2023 Lymphocytes Auto (Unsp spec) [#/Vol] 1.16 10*3/uL 0.83-4.51 [facility] Automated lymphocyte count a s percentage of total leukocytesOrdered By: Bernard Nugent on 07-24-2023 Lymphocytes/100 WBC Auto (Unsp spec) 12.7 % 19-41 [facility] Basophil percentageOrdered B y: Bernard Nugent on 07-24-2023 Basophils/100 WBC (Bld) 0.4 % 0-1 [facility] Bilirubin [Mass/Vol] 2.20 mg/dL 0.20-1.00 [facility] Comment on above: For patients on eltr ombopag therapy, use of Dimension [place]old TBIL is not recommended. Chloride [Moles/Vol] 103 mmol/L 98-107 [facility] Cholesterol [Mass/Vol] 131 mg/dL <200 [facility] Comment on above: <200 mg/dL Desirable 200-240 mg/dL Borderline >240 mg/dL High Risk Eosinophils/100 WBC (Bld) 3.0 % 0-5 [facility] Glucose [Mass/Vol] 191 mg/dL 74-106 [facility] Comment on above: Fasting Glucose resu lt greater than or equal to 126 mg/dL suggests DIABETES MELLITUS per A.D.A. criteria. Hemoglobin (Bld) [Mass/Vol] 14.6 g/dL 13.0-16.5 [facility] Monocytes/100 WBC (Bld) 8.1 % 0-10 [facility] Neutrophils (Bld) [#/Vol] 6.9 10*3/uL 2.0-7.7 [facility] Neutrophils/100 WBC (Bld) 75.0 % 47-70 [facility] Potassium [Moles/Vol] 4.2 mmol/L 3.5-5.1 [facility] Protein [Mass/Vol] 6.7 g/dL 6.4-8.2 [facility] Sodium [Moles/Vol] 135 mmol/L 136-145 [facility] Triglyceride [Mass/Vol] 130 mg/dL <199 [facility] Comment on above: The drugs N-Acetylcy steine and Metamizole may falsely depress this assay.Serum Triglycerides Reference Interval Normal <150 mg/dL Borderline high 150 - 199 mg/dL High 200 - 499 mg/dL Very High > or = 500 mg/dL WBC (Bld) [#/Vol] 9.1 10*3/uL 4.4-11.0 [facility] Determination of erythrocyte mean corpuscular volume (MCV)Ordered By: [facility] on 07-24-2023 MCV (RBC) [Entitic vol] 90.3 fL 80-94 [facility] Erythrocyte distribution wid th ratioOrdered By: [facility] on 07-24-2023 Erythrocyte distribution width (RBC) [Ratio] 13.2 % 11.6-14.6 [facility] Erythrocyte distribution wid th standard deviationOrdered By: [facility] on 07-24-2023 Erythrocyte distribution width (RBC) [Entitic vol] 44.2 fL 35.1-43.9 [facility] Hematocrit Auto (Bld) [Volum e fraction]Ordered By: [facility] on 07-24-2023 Hematocrit (Bld) [Volume fraction] 42.7 % 40-54 [facility] Immature granulocytes/100 WB C Auto (Bld)Ordered By: [facility] 07-24-2023 Immature granulocytes/100 WBC (Bld) 0.800 % 0.0-0.9 [facility] Comment on above: IG% - Immature Granu locytes (promyelocytes, myelocytes and metamyelocytes) > 1% indicates that a LEFT SHIFT is Present. Laboratory - Chemistry and C hemistry - challengeOrdered By: [facility] on 07-24-2023 Albumin/Globulin [Mass ratio] 1.0 {ratio} 0.9-2.4 [facility] ALP [Catalytic activity/Vol] 126 U/L 45-117 [facility] ALT [Catalytic activity/Vol] 20 U/L 16-61 [facility] Cholesterol in HDL [Mass/Vol] 53 mg/dL >40 [facility] Comment on above: The drugs N-Acetylcy steine and Metamizole may falsely depress this assay. Reference Range HDL <40 mg/dL Low HDL Cholesterol HDL >or= 60 mg/dL High HDL Cholesterol Cholesterol in LDL [Mass/Vol] 52 mg/dL 0-130 [facility] CO2 [Moles/Vol] 25.0 mmol/L 21.0-32.0 [facility] Globulin (S) [Mass/Vol] 3.4 g/dL 2.2-4.2 [facility] Urea nitrogen/Creatinine [Mass ratio] 9.4 mg/mg 10-20 [facility] - Hematology and Cell countsOrdered By: Bernard Nugent on 07-24-2023 MCH (RBC) [Entitic mass] 30.9 pg 27.0-32.0 [facility] MCHC (RBC) [Mass/Vol] 34.2 g/dL 32-36 [facility] Nucleated RBC/100 WBC (Bld) [Ratio] 0 % 0-5 [facility] Platelet mean volume (Bld) [Entitic vol] 11.6 fL 6.2-12.0 [facility] Platelets (Bld) [#/Vol] 241 10*3/uL 150-450 [facility] No Panel InformationOrdered By: Bernard Nugent on 07-24-2023 Estimated GFR (MDRD) Amer 49 mL/min >60 [facility] Comment on above: GFR Calc Estimated GFR (MDRD) Non-Af Amer 41 mL/min >60 [facility] Comment on above: Non- GFR Calc Vitamin D 25-Hydroxy 32.0 ng/mL [facility] Comment on above: Vitamin D 25(OH) Sta tus Range Deficiency <20 ng/mL (50nmol/L) Insufficiency 20 - 30 ng/mL (50 - 75 nmol/L) Sufficiency 30 - 100 ng/mL (75 - 250 nmol/L) Toxicity >100 ng/mL (>250 nmol/L) VLDL Cholesterol 26 mg/dL 5-40 [facility] RBC Auto (Bld) [#/Vol]Ordere d By: Bernard Nugent on 07-24-2023 RBC (Bld) [#/Vol] 4.73 10*6/uL 4.6-6.2 [facility] [facility] [place] calcium sita urement (mass/volume)Ordered By: Bernard Nugent on 07-24-2023 Calcium [Mass/Vol] 8.8 mg/dL 8.5-10.1 [facility] [place] plasma creatinine m easurement (mass/volume)Ordered By: Bernard Nugent on 07-24-2023 Creatinine [Mass/Vol] 1.70 mg/dL 0.70-1.30 [facility] Comment on above: The validity of the calculated GFR & GFRAA in patients over 70 years has not been determined. Clinical correlation is essential. Serum or plasma thyroid stim ulating hormone (TSH) measurement (units/volume)Ordered By: Bernard Nugent on 07-24-2023 TSH Qn 6.68 uIU/mL 0.358-3.74 [facility] Serum or plasma urea nitroge n measurement (mass/volume)Ordered By: Bernard Nugent on 07-24-2023 Urea nitrogen [Mass/Vol] 16 mg/dL 7-18 [facility] Thin prep Papanicolaou smear with manual screeningOrdered By: Bernard Nugent on 07-24-2023 Thin prep Papanicolaou smear with manual screening 3.3 g/dL 3.2-5.0 [facility] Thin prep Papanicolaou smear with manual screening 15 U/L 15-37 [facility] Thin prep Papanicolaou smear with manual screening 7 5-15 [facility] Whole blood hemoglobin A1c/t otal hemoglobin ratio (mass fraction)Ordered By: Bernard Nugent on 07-24-2023 HbA1c (Bld) [Mass fraction] 6.2 % 3.8-5.6 [facility] Comment on above: Normal < 5.7 % Predi abetic 5.7 - 6.4 % Diabetic >or= 6.5 % Please note range changes. Absolute lymphocyte countOrd ered By: Ray Stuart on 07-07-2023 Lymphocytes Auto (Unsp spec) [#/Vol] 0.52 10*3/uL 0.83-4.51 [facility] Automated lymphocyte count a s percentage of total leukocytesOrdered By: Ray Stuart on 07-07-2023 Lymphocytes/100 WBC Auto (Unsp spec) 2.9 % 19-41 [facility] Basophil percentageOrdered B y: Ray Stuart on 07-07-2023 Basophils/100 WBC (Bld) 0.3 % 0-1 [facility] Chloride [Moles/Vol] 99 mmol/L 98-107 [facility] Eosinophils/100 WBC (Bld) 0.4 % 0-5 [facility] Glucose [Mass/Vol] 243 mg/dL 74-106 [facility] Comment on above: Glucose result great er than or equal to 200 mg/dLsuggests DIABETES MELLITUS per A.D.A. criteria. Hemoglobin (Bld) [Mass/Vol] 16.5 g/dL 13.0-16.5 [facility] Monocytes/100 WBC (Bld) 7.1 % 0-10 [facility] Neutrophils (Bld) [#/Vol] 15.7 10*3/uL 2.0-7.7 [facility] Neutrophils/100 WBC (Bld) 88.7 % 47-70 [facility] Potassium [Moles/Vol] 3.8 mmol/L 3.5-5.1 [facility] Sodium [Moles/Vol] 134 mmol/L 136-145 [facility] WBC (Bld) [#/Vol] 17.7 10*3/uL 4.4-11.0 [facility] Basophil percentage 0 SEEN /hpf 0-5 [facility] Bilirubin Test strip Ql (U)O rdered By: Ray Stuart on 07-07-2023 Bilirubin Ql (U) Negative Negative [facility] Determination of erythrocyte mean corpuscular volume (MCV)Ordered By: Ray Stuart on 07-07-2023 MCV (RBC) [Entitic vol] 90.6 fL 80-94 [facility] Erythrocyte distribution wid th ratioOrdered By: Ray Stuart on 07-07-2023 Erythrocyte distribution width (RBC) [Ratio] 13.5 % 11.6-14.6 [facility] Erythrocyte distribution wid th standard deviationOrdered By: Ray Stuart on 07-07-2023 Erythrocyte distribution width (RBC) [Entitic vol] 45.1 fL 35.1-43.9 [facility] Hematocrit Auto (Bld) [Volum e fraction]Ordered By: Ray Stuart on 07-07-2023 Hematocrit (Bld) [Volume fraction] 48.1 % 40-54 [facility] Immature granulocytes/100 WB C Auto (Bld)Ordered By: Ray Stuart on 07-07-2023 Immature granulocytes/100 WBC (Bld) 0.600 % 0.0-0.9 [facility] Comment on above: IG% - Immature Granu locytes (promyelocytes, myelocytes and metamyelocytes) > 1% indicates that a LEFT SHIFT is Present. Ketones Test strip Ql (U)Ord ered By: Ray Stuart on 07-07-2023 Ketones Ql (U) Negative Negative [facility] Laboratory - Chemistry and C hemistry - challengeOrdered By: Ray Stuart on 07-07-2023 CO2 [Moles/Vol] 29.0 mmol/L 21.0-32.0 [facility] Natriuretic peptide B (Bld) [Mass/Vol] 332.6 pg/mL 0-100 [facility] Urea nitrogen/Creatinine [Mass ratio] 7.4 mg/mg 10-20 [facility] Laboratory - Hematology and Cell countsOrdered By: Ray Stuart on 07-07-2023 MCH (RBC) [Entitic mass] 31.1 pg 27.0-32.0 [facility] MCHC (RBC) [Mass/Vol] 34.3 g/dL 32-36 [facility] Nucleated RBC/100 WBC (Bld) [Ratio] 0 % 0-5 [facility] Platelet mean volume (Bld) [Entitic vol] 11.7 fL 6.2-12.0 [facility] Platelets (Bld) [#/Vol] 199 10*3/uL 150-450 [facility] Laboratory - Microbiology an d Antimicrobial susceptibilityOrdered By: Ray Stuart on 07-07-2023 SARS-CoV-2 (COVID-19) RNA MELIZA+probe Ql (Unsp spec) [facility] SARS-CoV-2 (COVID-19) RNA MELIZA+probe Ql (Unsp spec) [facility] Mucus LM Ql (Urine sed)Order ed By: Ray Stuart on 07-07-2023 Mucus Ql (Urine sed) 0 SEEN /hpf [facility] Nitrite Test strip Ql (U)Ord ered By: Ray Stuart on 07-07-2023 Nitrite Ql (U) Negative Negative [facility] No Panel InformationOrdered By: Ray Stuart on 07-07-2023 Troponin I High Sensitivity 44 pg/mL 3.0-78.0 [facility] Comment on above: Please Note: [place] t Units and Gender Specific Reference Ranges. For more information see Policy Stat Procedure [place] High Sensitivity Troponin (TNIH) and attachments. Estimated Creatinine Clearance Calc 37.04 ml/min [facility] Estimated GFR (MDRD) Amer 52 mL/min >60 [facility] Comment on above: GFR Calc Estimated GFR (MDRD) Non-Af Amer 43 mL/min >60 [facility] Comment on above: Non- GFR Calc Urine RBC 0 SEEN /hpf 0-5 [facility] Protein Test strip Ql (U)Ord ered By: Ray Stuart on 07-07-2023 Protein Ql (U) 30 mg/dl Negative [facility] RBC Auto (Bld) [#/Vol]Ordere d By: Ray Stuart on 07-07-2023 RBC (Bld) [#/Vol] 5.31 10*6/uL 4.6-6.2 [facility] Serum or plasma calcium sita urement (mass/volume)Ordered By: Ray Stuart on 07-07-2023 Calcium [Mass/Vol] 9.7 mg/dL 8.5-10.1 [facility] Serum or plasma creatinine m easurement (mass/volume)Ordered By: Ray Stuart on 07-07-2023 Creatinine [Mass/Vol] 1.62 mg/dL 0.70-1.30 [facility] Comment on above: The validity of the calculated GFR & GFRAA in patients over 70 years has not been determined. Clinical correlation is essential. Serum or plasma urea nitroge n measurement (mass/volume)Ordered By: Ray Stuart on 07-07-2023 Urea nitrogen [Mass/Vol] 12 mg/dL -18 [facility] Squamous epithelial cells de tection in urine sediment by light microscopyOrdered By: Ray Stuart on 07-07-2023 Epithelial cells.squamous LM Ql (Urine sed) 0 SEEN /hpf 0-5 [facility] Thin prep Papanicolaou smear with manual screeningOrdered By: Ray Stuart on 07-07-2023 Thin prep Papanicolaou smear with manual screening 6 5-15 [facility] Urine blood detectionOrdered By: Ray Stuart on 07-07-2023 RBC Ql (U) 10 /ul Negative [facility] Urine clarityOrdered By: Telma Stuart on 07-07-2023 Clarity (U) Clear Clear [facility] Urine color determinationOrd ered By: Ray Stuart on 07-07-2023 Color (U) Yellow Yellow [facility] Urine glucose detectionOrder ed By: Ray Stuart on 07-07-2023 Glucose Ql (U) Normal mg/dl Normal [facility] Urine leukocyte esterase det ection by dipstickOrdered By: Ray Stuart on 07-07-2023 Leukocyte esterase Test strip Ql (U) Negative Negative [facility] Urine pHOrdered By: Ray yousif on 07-07-2023 pH (U) 6.5 [pH] 5.0 - 8.0 [facility] Urine sediment bacteria coun t by microscopy (number/high power field)Ordered By: Ray Stuart on 07-07-2023 Bacteria LM.HPF (Urine sed) [#/Area] 0 /[HPF] None Seen [facility] Urine specific gravity measu rementOrdered By: Ray Stuart on 07-07-2023 Specific gravity (U) [Rel density] 1.010 1.002-1.030 [facility] Urine urobilinogen measureme ntOrdered By: Ray Stuart on 07-07-2023 Urobilinogen Ql (U) Normal mg/dl Normal [facility] Absolute lymphocyte countOrd ered By: Anson Fonseca on 05-26-2023 Lymphocytes Auto (Unsp spec) [#/Vol] 1.19 10*3/uL 0.83-4.51 [facility] Basophil percentageOrdered B y: Anson Fonseca on 05-26-2023 Basophils/100 WBC (Bld) 0.6 % 0-1 [facility] Bilirubin [Mass/Vol] 2.20 mg/dL 0.20-1.00 [facility] Comment on above: For patients on eltr ombopag therapy, use of Dimension [place] TBIL is not recommended. Chloride [Moles/Vol] 102 mmol/L 98-107 [facility] Eosinophils/100 WBC (Bld) 1.3 % 0-5 [facility] Glucose [Mass/Vol] 106 mg/dL 74-106 [facility] Comment on above: Fasting Glucose resu lt from 100 to 125 mg/dL suggests IMPAIRED HOMEOSTASIS per A.D.A. criteria. Neutrophils (Bld) [#/Vol] 8.0 10*3/uL 2.0-7.7 [facility] Neutrophils/100 WBC (Bld) 76.8 % 47-70 [facility] Potassium [Moles/Vol] 3.6 mmol/L 3.5-5.1 [facility] Protein [Mass/Vol] 7.3 g/dL 6.4-8.2 [facility] Sodium [Moles/Vol] 137 mmol/L 136-145 [facility] WBC (Bld) [#/Vol] 10.4 10*3/uL 4.4-11.0 [facility] Blood erythrocytes count (nu mber/volume)Ordered By: Anson Fonseca on 05-26-2023 RBC (Bld) [#/Vol] 5.04 10*6/uL 4.6-6.2 [facility] Blood hemoglobin measurement (mass/volume)Ordered By: Anson Fonseca on 05-26-2023 Hemoglobin (Bld) [Mass/Vol] 15.6 g/dL 13.0-16.5 [facility] Blood lymphocytes/100 leukoc ytesOrdered By: Anson Fonseca on 05-26-2023 Lymphocytes/100 WBC (Bld) 11.5 % 19-41 [facility] Blood monocytes/100 leukocyt esOrdered By: Anson Fonseca on 05-26-2023 Monocytes/100 WBC (Bld) 9.1 % 0-10 [facility] Blood platelet mean volumeOr dered By: Anson Fonseca on 05-26-2023 Platelet mean volume (Bld) [Entitic vol] 11.1 fL 6.2-12.0 [facility] Determination of erythrocyte mean corpuscular volume (MCV)Ordered By: Anson Fonseca on 05-26-2023 MCV (RBC) [Entitic vol] 90.3 fL 80-94 [facility] Hematocrit Auto (Bld) [Volum e fraction]Ordered By: Anson Fonseca on 05-26-2023 Hematocrit (Bld) [Volume fraction] 45.5 % 40-54 [facility] Laboratory - Chemistry and C hemistry - challengeOrdered By: Anson Fonseca on 05-26-2023 ALP [Catalytic activity/Vol] 142 U/L 45-117 [facility] ALT [Catalytic activity/Vol] 32 U/L 16-61 [facility] CO2 [Moles/Vol] 29.0 mmol/L 21.0-32.0 [facility] Globulin (S) [Mass/Vol] 3.8 g/dL 2.2-4.2 [facility] Urea nitrogen/Creatinine [Mass ratio] 11.9 mg/mg 10-20 [facility] Laboratory - Hematology and Cell countsOrdered By: Anson Fonseca on 05-26-2023 Erythrocyte distribution width (RBC) [Entitic vol] 43.1 fL 35.1-43.9 [facility] Erythrocyte distribution width (RBC) [Ratio] 13.2 % 11.6-14.6 [facility] Immature granulocytes/100 WBC (Bld) 0.700 % 0.0-0.9 [facility] Comment on above: IG% - Immature Granu locytes (promyelocytes, myelocytes and metamyelocytes) > 1% indicates that a LEFT SHIFT is Present. MCH (RBC) [Entitic mass] 31.0 pg 27.0-32.0 [facility] Nucleated RBC/100 WBC (Bld) [Ratio] 0 % 0-5 [facility] MCHC Auto (RBC) [Mass/Vol]Or dered By: Anson Fonseca on 05-26-2023 MCHC (RBC) [Mass/Vol] 34.3 g/dL 32-36 [facility] No Panel InformationOrdered By: Anson Fonseca on 05-26-2023 Estimated Creatinine Clearance Calc 30.36 ml/min [facility] Estimated GFR (MDRD) Amer 47 mL/min >60 [facility] Comment on above: GFR Calc Estimated GFR (MDRD) Non-Af Amer 39 mL/min >60 [facility] Comment on above: Non- GFR Calc Platelets bldOrdered By: Ignacio Fonseca on 05-26-2023 Platelets (Bld) [#/Vol] 206 10*3/uL 150-450 [facility] Serum or plasma albumin sita urement (mass/volume)Ordered By: Anson Fonseca on 05-26-2023 Albumin [Mass/Vol] 3.5 g/dL 3.2-5.0 [facility] Serum or plasma albumin/glob ulin mass ratioOrdered By: Anson Fonscea on 05-26-2023 Albumin/Globulin [Mass ratio] 0.9 {ratio} 0.9-2.4 [facility] Serum or plasma calcium sita urement (mass/volume)Ordered By: Anson Fonseca on 05-26-2023 Calcium [Mass/Vol] 8.5 mg/dL 8.5-10.1 [facility] Serum or plasma creatinine m easurement (mass/volume)Ordered By: Anson Fonseca on 05-26-2023 Creatinine [Mass/Vol] 1.77 mg/dL 0.70-1.30 [facility] Comment on above: The validity of the calculated GFR & GFRAA in patients over 70 years has not been determined. Clinical correlation is essential. Serum or plasma urea nitroge n measurement (mass/volume)Ordered By: Anson Fonseca on 05-26-2023 Urea nitrogen [Mass/Vol] 21 mg/dL 7-18 [facility] Thin prep Papanicolaou smear with manual screeningOrdered By: Anson Fonseca on 05-26-2023 Thin prep Papanicolaou smear with manual screening 31 U/L 15-37 [facility] Thin prep Papanicolaou smear with manual screening 6 5-15 [facility] Basophil percentageOrdered B y: Bernard Nugent on 03-25-2023 Chloride [Moles/Vol] 103 mmol/L 98-107 [facility] Glucose [Mass/Vol] 154 mg/dL 74-106 [facility] Comment on above: Fasting Glucose resu lt greater than or equal to 126 mg/dL suggests DIABETES MELLITUS per A.D.A. criteria. Potassium [Moles/Vol] 3.7 mmol/L 3.5-5.1 [facility] Sodium [Moles/Vol] 138 mmol/L 136-145 [facility] Laboratory - Chemistry and C hemistry - challengeOrdered By: Bernard Nugent on 03-25-2023 CO2 [Moles/Vol] 27.0 mmol/L 21.0-32.0 [facility] Urea nitrogen/Creatinine [Mass ratio] 10.2 mg/mg 10-20 [facility] No Panel InformationOrdered By: Bernard Nugent on 03-25-2023 Estimated GFR (MDRD) Amer 50 mL/min >60 [facility] Comment on above: GFR Calc Estimated GFR (MDRD) Non-Af Amer 42 mL/min >60 [facility] Comment on above: Non- GFR Calc Serum or plasma calcium sita urement (mass/volume)Ordered By: Bernard Nugent on 03-25-2023 Calcium [Mass/Vol] 8.6 mg/dL 8.5-10.1 [facility] Serum or plasma creatinine m easurement (mass/volume)Ordered By: Bernard Nugent on 03-25-2023 Creatinine [Mass/Vol] 1.67 mg/dL 0.70-1.30 [facility] Comment on above: The validity of the calculated GFR & GFRAA in patients over 70 years has not been determined. Clinical correlation is essential. Serum or plasma urea nitroge n measurement (mass/volume)Ordered By: Bernard Nugent on 03-25-2023 Urea nitrogen [Mass/Vol] 17 mg/dL 7-18 [facility] Thin prep Papanicolaou smear with manual screeningOrdered By: Bernard Nugent on 03-25-2023 Thin prep Papanicolaou smear with manual screening 8 5-15 [facility] Absolute lymphocyte countOrd ered By: Raghu Acosta on 03-24-2023 Lymphocytes Auto (Unsp spec) [#/Vol] 0.79 10*3/uL 0.83-4.51 [facility] Basophil percentageOrdered B y: Raghu Acosta on 03-24-2023 Basophil percentage 0 SEEN /hpf 0-5 [facility] Basophils/100 WBC (Bld) 0.5 % 0-1 [facility] Bilirubin [Mass/Vol] 2.20 mg/dL 0.20-1.00 [facility] Comment on above: For patients on eltr ombopag therapy, use of Dimension [place] TBIL is not recommended. Chloride [Moles/Vol] 99 mmol/L 98-107 [facility] Eosinophils/100 WBC (Bld) 1.0 % 0-5 [facility] Glucose [Mass/Vol] 279 mg/dL 74-106 [facility] Comment on above: Glucose result great er than or equal to 200 mg/dLsuggests DIABETES MELLITUS per A.D.A. criteria. Neutrophils (Bld) [#/Vol] 7.1 10*3/uL 2.0-7.7 [facility] Neutrophils/100 WBC (Bld) 82.0 % 47-70 [facility] Potassium [Moles/Vol] 3.7 mmol/L 3.5-5.1 [facility] Protein [Mass/Vol] 6.9 g/dL 6.4-8.2 [facility] Sodium [Moles/Vol] 135 mmol/L 136-145 [facility] WBC (Bld) [#/Vol] 8.6 10*3/uL 4.4-11.0 [facility] Bilirubin Test strip Ql (U)O rdered By: Raghu Acosta on 03-24-2023 Bilirubin Ql (U) Negative Negative [facility] Blood erythrocytes count (nu mber/volume)Ordered By: Raghu Acosta on 03-24-2023 RBC (Bld) [#/Vol] 4.82 10*6/uL 4.6-6.2 [facility] Blood hemoglobin measurement (mass/volume)Ordered By: Raghu Acosta on 03-24-2023 Hemoglobin (Bld) [Mass/Vol] 14.7 g/dL 13.0-16.5 [facility] Blood lymphocytes/100 leukoc ytesOrdered By: Raghu Acosta on 03-24-2023 Lymphocytes/100 WBC (Bld) 9.1 % 19-41 [facility] Blood monocytes/100 leukocyt esOrdered By: Raghu Acosta on 03-24-2023 Monocytes/100 WBC (Bld) 6.9 % 0-10 [facility] Blood platelet mean volumeOr dered By: Raghu Acosta on 03-24-2023 Platelet mean volume (Bld) [Entitic vol] 11.7 fL 6.2-12.0 [facility] Determination of erythrocyte mean corpuscular volume (MCV)Ordered By: Raghu Acosta on 03-24-2023 MCV (RBC) [Entitic vol] 89.2 fL 80-94 [facility] Hematocrit Auto (Bld) [Volum e fraction]Ordered By: Raghu Acosta on 03-24-2023 Hematocrit (Bld) [Volume fraction] 43.0 % 40-54 [facility] Ketones Test strip Ql (U)Ord ered By: Raghu Acosta on 03-24-2023 Ketones Ql (U) Negative Negative [facility] Laboratory - Chemistry and C hemistry - challengeOrdered By: Raghu Acosta on 03-24-2023 ALP [Catalytic activity/Vol] 132 U/L 45-117 [facility] ALT [Catalytic activity/Vol] 20 U/L 16-61 [facility] CO2 [Moles/Vol] 29.0 mmol/L 21.0-32.0 [facility] Globulin (S) [Mass/Vol] 3.7 g/dL 2.2-4.2 [facility] Urea nitrogen/Creatinine [Mass ratio] 9.9 mg/mg 10-20 [facility] Laboratory - Hematology and Cell countsOrdered By: Raghu Acosta on 03-24-2023 Erythrocyte distribution width (RBC) [Entitic vol] 44.8 fL 35.1-43.9 [facility] Erythrocyte distribution width (RBC) [Ratio] 13.8 % 11.6-14.6 [facility] Immature granulocytes/100 WBC (Bld) 0.500 % 0.0-0.9 [facility] Comment on above: IG% - Immature Granu locytes (promyelocytes, myelocytes and metamyelocytes) > 1% indicates that a LEFT SHIFT is Present. MCH (RBC) [Entitic mass] 30.5 pg 27.0-32.0 [facility] Nucleated RBC/100 WBC (Bld) [Ratio] 0 % 0-5 [facility] MCHC Auto (RBC) [Mass/Vol]Or dered By: Raghu Acosta on 03-24-2023 MCHC (RBC) [Mass/Vol] 34.2 g/dL 32-36 [facility] Mucus LM Ql (Urine sed)Order ed By: Raghu Acosta on 03-24-2023 Mucus Ql (Urine sed) 0 SEEN /hpf [facility] Nitrite Test strip Ql (U)Ord ered By: Raghu Acosta on 03-24-2023 Nitrite Ql (U) Negative Negative [facility] No Panel InformationOrdered By: Raghu Acosta on 03-24-2023 Estimated Creatinine Clearance Calc 27.99 ml/min [facility] Estimated GFR (MDRD) Amer 43 mL/min >60 [facility] Comment on above: GFR Calc Estimated GFR (MDRD) Non-Af Amer 35 mL/min >60 [facility] Comment on above: Non- GFR Calc Troponin I High Sensitivity 32 pg/mL 3.0-78.0 [facility] Comment on above: Please Note: [place] t Units and Gender Specific Reference Ranges. For more information see Policy Stat Procedure [place] High Sensitivity Troponin (TNIH) and attachments. Platelets bldOrdered By: Delio Acosta on 03-24-2023 Platelets (Bld) [#/Vol] 170 10*3/uL 150-450 [facility] Protein Test strip Ql (U)Ord ered By: Raghu Acosta on 03-24-2023 Protein Ql (U) 15 mg/dl Negative [facility] Serum or plasma albumin sita urement (mass/volume)Ordered By: Raghu Acosta on 03-24-2023 Albumin [Mass/Vol] 3.2 g/dL 3.2-5.0 [facility] Serum or plasma albumin/glob ulin mass ratioOrdered By: Raghu Acosta on 03-24-2023 Albumin/Globulin [Mass ratio] 0.9 {ratio} 0.9-2.4 [facility] Serum or plasma calcium sita urement (mass/volume)Ordered By: Raghu Acosta on 03-24-2023 Calcium [Mass/Vol] 8.4 mg/dL 8.5-10.1 [facility] Serum or plasma creatinine m easurement (mass/volume)Ordered By: Raghu Acosta on 03-24-2023 Creatinine [Mass/Vol] 1.92 mg/dL 0.70-1.30 [facility] Comment on above: The validity of the calculated GFR & GFRAA in patients over 70 years has not been determined. Clinical correlation is essential. Serum or plasma urea nitroge n measurement (mass/volume)Ordered By: Raghu Acosta on 03-24-2023 Urea nitrogen [Mass/Vol] 19 mg/dL 7-18 [facility] Squamous epithelial cells de tection in urine sediment by light microscopyOrdered By: Raghu Acosta on 03-24-2023 Epithelial cells.squamous LM Ql (Urine sed) 0 SEEN /hpf 0-5 [facility] Thin prep Papanicolaou smear with manual screeningOrdered By: Raghu Acosta on 03-24-2023 Thin prep Papanicolaou smear with manual screening 14 U/L 15-37 [facility] Thin prep Papanicolaou smear with manual screening 7 5-15 [facility] Urine blood detectionOrdered By: Raghu Acosta on 03-24-2023 RBC Ql (U) 10 /ul Negative [facility] RBC Ql (U) 0 SEEN /hpf 0-5 [facility] Urine clarityOrdered By: Delio Acosta on 03-24-2023 Clarity (U) Clear Clear [facility] Urine color determinationOrd ered By: Raghu Acosta on 03-24-2023 Color (U) Yellow Yellow [facility] Urine glucose detectionOrder ed By: Raghu Acosta on 03-24-2023 Glucose Ql (U) 100 mg/dl Normal [facility] Urine leukocyte esterase det ection by dipstickOrdered By: Raghu Acosta on 03-24-2023 Leukocyte esterase Test strip Ql (U) Negative Negative [facility] Urine pHOrdered By: Raghu childress on 03-24-2023 pH (U) 7.0 [pH] 5.0 - 8.0 [facility] Urine sediment bacteria coun t by microscopy (number/high power field)Ordered By: Raghu Acosta on 03-24-2023 Bacteria LM.HPF (Urine sed) [#/Area] 0 /[HPF] None Seen [facility] Urine specific gravity measu rementOrdered By: Raghu Acosta on 03-24-2023 Specific gravity (U) [Rel density] 1.010 1.002-1.030 [facility] Urobilinogen Auto test strip Ql (U)Ordered By: Raghu Acosta on 03-24-2023 Urobilinogen Ql (U) Normal mg/dl Normal [facility] Basophil percentageOrdered B y: Shaila Haq on 02-07-2023 Basophil percentage 2.9 mg/dL 2.5-4.[address] [facility] Chloride [Moles/Vol] 100 mmol[facility]L 98-[facility] Glucose [Mass/Vol] 159 mg/dL 74-106 [facility] Comment on above: Fasting Glucose resu lt greater than or equal to 126 mg/dL suggests DIABETES MELLITUS per A.D.A. criteria. Potassium [Moles/Vol] 3.7 mmol/L 3.5-5.1 [facility] Sodium [Moles/Vol] 136 mmol/L 136-145 [facility] Laboratory - Chemistry and C hemistry - challengeOrdered By: Shaila Haq on 02-07-2023 CO2 [Moles/Vol] 32.0 mmol/L 21.0-32.0 [facility] [facility] Urea nitrogen/Creatinine [Mass ratio] 8.5 mg/mg 10-20 [facility] No Panel InformationOrdered By: Shaila Haq on 02-07-2023 Estimated GFR (MDRD) Amer 56 mL/min >60 [facility] Comment on above: GFR Calc Estimated GFR (MDRD) Non-Af Amer 46 mL/min >60 [facility] Comment on above: Non- GFR Calc Serum or plasma albumin sita urement (mass/volume)Ordered By: Shaila Haq on 02-07-2023 Albumin [Mass/Vol] 3.5 g/dL 3.2-5.0 [facility] Serum or plasma calcium sita urement (mass/volume)Ordered By: Shaila Haq on 02-07-2023 Calcium [Mass/Vol] 8.5 mg/dL 8.5-10.1 [facility] Serum or plasma creatinine m easurement (mass/volume)Ordered By: Shaila Haq on 02-07-2023 Creatinine [Mass/Vol] 1.53 mg/dL 0.70-1.30 [facility] Comment on above: The validity of the calculated GFR & GFRAA in patients over 70 years has not been determined. Clinical correlation is essential. Serum or plasma urea nitroge n measurement (mass/volume)Ordered By: Shaila Haq on 02-07-2023 Urea nitrogen [Mass/Vol] 13 mg/dL 7-18 [facility] Absolute lymphocyte countOrd ered By: Bernard Nugent on 01-22-2023 Lymphocytes Auto (Unsp spec) [#/Vol] 1.04 10*3/uL 0.83-4.51 [facility] Basophil percentageOrdered B y: Bernard Nugent on 01-22-2023 Basophils/100 WBC (Bld) 0.6 % 0-1 [facility] Bilirubin [Mass/Vol] 1.70 mg/dL 0.20-1.00 [facility] Comment on above: For patients on eltr ombopag therapy, use of Dimension [place]old TBIL is not recommended. Chloride [Moles/Vol] 106 mmol/L 98-107 [facility] Eosinophils/100 WBC (Bld) 2.7 % 0-5 [facility] Glucose [Mass/Vol] 123 mg/dL 74-106 [facility] Comment on above: Fasting Glucose resu lt from 100 to 125 mg/dL suggests IMPAIRED HOMEOSTASIS per A.D.A. criteria. Neutrophils (Bld) [#/Vol] 4.7 10*3/uL 2.0-7.7 [facility] Neutrophils/100 WBC (Bld) 71.6 % 47-70 [facility] Potassium [Moles/Vol] 3.5 mmol/L 3.5-5.1 [facility] Protein [Mass/Vol] 6.6 g/dL 6.4-8.2 [facility] Sodium [Moles/Vol] 141 mmol/L 136-145 [facility] WBC (Bld) [#/Vol] 6.6 10*3/uL 4.4-11.0 [facility] Blood erythrocytes count (nu mber/volume)Ordered By: Bernard Nugent on 01-22-2023 RBC (Bld) [#/Vol] 4.62 10*6/uL 4.6-6.2 [facility] Blood hemoglobin measurement (mass/volume)Ordered By: Bernard Nugent on 01-22-2023 Hemoglobin (Bld) [Mass/Vol] 14.2 g/dL 13.0-16.5 [facility] Blood lymphocytes/100 leukoc ytesOrdered By: Bernard Nugent on 01-22-2023 Lymphocytes/100 WBC (Bld) 15.9 % 19-41 [facility] Blood monocytes/100 leukocyt esOrdered By: Bernard Nugent on 01-22-2023 Monocytes/100 WBC (Bld) 8.7 % 0-10 [facility] Blood platelet mean volumeOr dered By: Bernard Nugent on 01-22-2023 Platelet mean volume (Bld) [Entitic vol] 11.7 fL 6.2-12.0 [facility] Determination of erythrocyte mean corpuscular volume (MCV)Ordered By: Bernard Nugent on 01-22-2023 MCV (RBC) [Entitic vol] 89.8 fL 80-94 [facility] Hematocrit Auto (Bld) [Volum e fraction]Ordered By: Bernard Nugent on 01-22-2023 Hematocrit (Bld) [Volume fraction] 41.5 % 40-54 [facility] Laboratory - Chemistry and C hemistry - challengeOrdered By: Bernard Nugent 01-22-2023 ALP [Catalytic activity/Vol] 133 U/L 45-117 [facility] ALT [Catalytic activity/Vol] 23 U/L 16-61 [facility] CO2 [Moles/Vol] 28.0 mmol/L 21.0-32.0 [facility] Globulin (S) [Mass/Vol] 3.4 g/dL 2.2-4.2 [facility] Urea nitrogen/Creatinine [Mass ratio] 7.7 mg/mg 10-20 [facility] Laboratory - Hematology and Cell countsOrdered By: Bernard Nugent 01-22-2023 Erythrocyte distribution width (RBC) [Entitic vol] 47.2 fL 35.1-43.9 [facility] Erythrocyte distribution width (RBC) [Ratio] 14.3 % 11.6-14.6 [facility] Immature granulocytes/100 WBC (Bld) 0.500 % 0.0-0.9 [facility] Comment on above: IG% - Immature Granu locytes (promyelocytes, myelocytes and metamyelocytes) > 1% indicates that a LEFT SHIFT is Present. MCH (RBC) [Entitic mass] 30.7 pg 27.0-32.0 [facility] Nucleated RBC/100 WBC (Bld) [Ratio] 0 % 0-5 [facility] MCHC Auto (RBC) [Mass/Vol]Or dered By: Bernard Nugent on 01-22-2023 MCHC (RBC) [Mass/Vol] 34.2 g/dL 32-36 [facility] No Panel InformationOrdered By: Bernard Nugent on 01-22-2023 Estimated GFR (MDRD) Amer 54 mL/min >60 [facility] Comment on above: GFR Calc Estimated GFR (MDRD) Non-Af Amer 45 mL/min >60 [facility] Comment on above: Non- GFR Calc Thyroid Stimulating Hormone (TSH) 1.45 uIU/mL 0.358-3.74 [facility] Vitamin D 25-Hydroxy 45.6 ng/mL [facility] Comment on above: Vitamin D 25(OH) Sta tus Range Deficiency <20 ng/mL (50nmol/L) Insufficiency 20 - 30 ng/mL (50 - 75 nmol/L) Sufficiency 30 - 100 ng/mL (75 - 250 nmol/L) Toxicity >100 ng/mL (>250 nmol/L) Platelets bldOrdered By: Bernard Nugent on 01-22-2023 Platelets (Bld) [#/Vol] 179 10*3/uL 150-450 [facility] Serum or plasma albumin sita urement (mass/volume)Ordered By: Bernard Nugent on 01-22-2023 Albumin [Mass/Vol] 3.2 g/dL 3.2-5.0 [facility] Serum or plasma albumin/glob ulin mass ratioOrdered By: Bernard Nugent 01-22-2023 Albumin/Globulin [Mass ratio] 0.9 {ratio} 0.9-2.4 [facility] Serum or plasma calcium sita urement (mass/volume)Ordered By: Bernard Nugent 01-22-2023 Calcium [Mass/Vol] 8.2 mg/dL 8.5-10.1 [facility] Serum or plasma creatinine m easurement (mass/volume)Ordered By: Bernard Nugent on 01-22-2023 Creatinine [Mass/Vol] 1.56 mg/dL 0.70-1.30 [facility] Comment on above: The validity of the calculated GFR & GFRAA in patients over 70 years has not been determined. Clinical correlation is essential. Serum or plasma urea nitroge n measurement (mass/volume)Ordered By: Bernard Nugent on 01-22-2023 Urea nitrogen [Mass/Vol] 12 mg/dL 7-18 [facility] Thin prep Papanicolaou smear with manual screeningOrdered By: Bernard Nugent on 01-22-2023 Thin prep Papanicolaou smear with manual screening 21 U/L 15-37 [facility] Thin prep Papanicolaou smear with manual screening 7 5-15 [facility] Absolute lymphocyte countOrd ered By: Dr. Nugent on 11-06-2022 Lymphocytes Auto (Unsp spec) [#/Vol] 1.35 10*3/uL 0.83-4.51 [facility] Basophil percentageOrdered B y: Dr. Nugent on 11-06-2022 Basophils/100 WBC (Bld) 0.5 % 0-1 [facility] Bilirubin [Mass/Vol] 1.90 mg/dL 0.20-1.00 [facility] Comment on above: For patients on eltr ombopag therapy, use of Dimension [place]old TBIL is not recommended. Chloride [Moles/Vol] 105 mmol/L 98-107 [facility] Eosinophils/100 WBC (Bld) 3.2 % 0-5 [facility] Glucose [Mass/Vol] 152 mg/dL 74-106 [facility] Comment on above: Fasting Glucose resu lt greater than or equal to 126 mg/dL suggests DIABETES MELLITUS per A.D.A. criteria. Neutrophils (Bld) [#/Vol] 5.9 10*3/uL 2.0-7.7 [facility] Neutrophils/100 WBC (Bld) 70.5 % 47-70 [facility] Potassium [Moles/Vol] 3.6 mmol/L 3.5-5.1 [facility] Protein [Mass/Vol] 7.3 g/dL 6.4-8.2 [facility] Sodium [Moles/Vol] 140 mmol/L 136-145 [facility] WBC (Bld) [#/Vol] 8.4 10*3/uL 4.4-11.0 [facility] Blood erythrocytes count (nu mber/volume)Ordered By: Dr. Nugent on 11-06-2022 RBC (Bld) [#/Vol] 5.00 10*6/uL 4.6-6.2 [facility] Blood hemoglobin measurement (mass/volume)Ordered By: Dr. Nugent on 11-06-2022 Hemoglobin (Bld) [Mass/Vol] 15.1 g/dL 13.0-16.5 [facility] Blood lymphocytes/100 leukoc ytesOrdered By: Dr. Nugent on 11-06-2022 Lymphocytes/100 WBC (Bld) 16.1 % 19-41 [facility] Blood monocytes/100 leukocyt esOrdered By: Dr. Nugent on 11-06-2022 Monocytes/100 WBC (Bld) 9.2 % 0-10 [facility] Blood platelet mean volumeOr dered By: Dr. Nugent on 11-06-2022 Platelet mean volume (Bld) [Entitic vol] 11.7 fL 6.2-12.0 [facility] Determination of erythrocyte mean corpuscular volume (MCV)Ordered By: Dr. Nugent on 11-06-2022 MCV (RBC) [Entitic vol] 88.6 fL 80-94 [facility] Hematocrit Auto (Bld) [Volum e fraction]Ordered By: Dr. Nugent on 11-06-2022 Hematocrit (Bld) [Volume fraction] 44.3 % 40-54 [facility] Laboratory - Chemistry and C hemistry - challengeOrdered By: Dr. Nugent on 11-06-2022 ALP [Catalytic activity/Vol] 151 U/L 45-117 [facility] ALT [Catalytic activity/Vol] 21 U/L 16-61 [facility] CO2 [Moles/Vol] 31.0 mmol/L 21.0-32.0 [facility] Globulin (S) [Mass/Vol] 3.8 g/dL 2.2-4.2 [facility] Urea nitrogen/Creatinine [Mass ratio] 9.7 mg/mg 10-20 [facility] Laboratory - Hematology and Cell countsOrdered By: Dr. Nugent on 11-06-2022 Erythrocyte distribution width (RBC) [Entitic vol] 45.5 fL 35.1-43.9 [facility] Erythrocyte distribution width (RBC) [Ratio] 14.1 % 11.6-14.6 [facility] Immature granulocytes/100 WBC (Bld) 0.500 % 0.0-0.9 [facility] Comment on above: IG% - Immature Granu locytes (promyelocytes, myelocytes and metamyelocytes) > 1% indicates that a LEFT SHIFT is Present. MCH (RBC) [Entitic mass] 30.2 pg 27.0-32.0 [facility] Nucleated RBC/100 WBC (Bld) [Ratio] 0 % 0-5 [facility] MCHC Auto (RBC) [Mass/Vol]Or dered By: Dr. Nugent on 11-06-2022 MCHC (RBC) [Mass/Vol] 34.1 g/dL 32-36 [facility] No Panel InformationOrdered By: Dr. Nugent on 11-06-2022 Estimated GFR (MDRD) Amer 55 mL/min >60 [facility] Comment on above: GFR Calc Estimated GFR (MDRD) Non-Af Amer 45 mL/min >60 [facility] Comment on above: Non- GFR Calc Thyroid Stimulating Hormone (TSH) 2.03 uIU/mL 0.358-3.74 [facility] Vitamin D 25-Hydroxy 49.2 ng/mL [facility] Comment on above: Vitamin D 25(OH) Sta tus Range Deficiency <20 ng/mL (50nmol/L) Insufficiency 20 - 30 ng/mL (50 - 75 nmol/L) Sufficiency 30 - 100 ng/mL (75 - 250 nmol/L) Toxicity >100 ng/mL (>250 nmol/L) Platelets bldOrdered By: Dr. Nugent on 11-06-2022 Platelets (Bld) [#/Vol] 185 10*3/uL 150-450 [facility] Serum or plasma albumin sita urement (mass/volume)Ordered By: Dr. Nugent on 11-06-2022 Albumin [Mass/Vol] 3.5 g/dL 3.2-5.0 [facility] Serum or plasma albumin/glob ulin mass ratioOrdered By: Dr. Nugent on 11-06-2022 Albumin/Globulin [Mass ratio] 0.9 {ratio} 0.9-2.4 [facility] Serum or plasma calcium sita urement (mass/volume)Ordered By: Dr. Nugent on 11-06-2022 Calcium [Mass/Vol] 8.7 mg/dL 8.5-10.1 [facility] Serum or plasma creatinine m easurement (mass/volume)Ordered By: Dr. Nugent on 11-06-2022 Creatinine [Mass/Vol] 1.55 mg/dL 0.70-1.30 [facility] Comment on above: The validity of the calculated GFR & GFRAA in patients over 70 years has not been determined. Clinical correlation is essential. Serum or plasma urea nitroge n measurement (mass/volume)Ordered By: Dr. Nugent on 11-06-2022 Urea nitrogen [Mass/Vol] 15 mg/dL 7-18 [facility] Thin prep Papanicolaou smear with manual screeningOrdered By: Dr. Nugent on 11-06-2022 Thin prep Papanicolaou smear with manual screening 20 U/L 15-37 [facility] Thin prep Papanicolaou smear with manual screening 4 5-15 [facility] Basophil percentageOrdered B y: Evin Sarmiento on 10-22-2022 Chloride [Moles/Vol] 105 mmol/L 98-107 [facility] Glucose [Mass/Vol] 216 mg/dL 74-106 [facility] Comment on above: Glucose result great er than or equal to 200 mg/dLsuggests DIABETES MELLITUS per A.D.A. criteria. Potassium [Moles/Vol] 3.6 mmol/L 3.5-5.1 [facility] Sodium [Moles/Vol] 138 mmol/L 136-145 [facility] WBC (Bld) [#/Vol] 10.3 10*3/uL 4.4-11.0 [facility] Blood erythrocytes count (nu mber/volume)Ordered By: Evin Sarmiento on 10-22-2022 RBC (Bld) [#/Vol] 4.70 10*6/uL 4.6-6.2 [facility] Blood hemoglobin measurement (mass/volume)Ordered By: Evin Sarmiento on 10-22-2022 Hemoglobin (Bld) [Mass/Vol] 14.2 g/dL 13.0-16.5 [facility] Blood platelet mean volumeOr dered By: Evin Sarmiento on 10-22-2022 Platelet mean volume (Bld) [Entitic vol] 11.3 fL 6.2-12.0 [facility] Determination of erythrocyte mean corpuscular volume (MCV)Ordered By: Evin Sarmiento on 10-22-2022 MCV (RBC) [Entitic vol] 90.0 fL 80-94 [facility] Hematocrit Auto (Bld) [Volum e fraction]Ordered By: Evin Sarmiento on 10-22-2022 Hematocrit (Bld) [Volume fraction] 42.3 % 40-54 [facility] Laboratory - Chemistry and C hemistry - challengeOrdered By: Evin Sarmiento on 10-22-2022 CO2 [Moles/Vol] 29.0 mmol/L 21.0-32.0 [facility] Natriuretic peptide B (Bld) [Mass/Vol] 298.6 pg/mL 0-100 [facility] Urea nitrogen/Creatinine [Mass ratio] 10.2 mg/mg 10-20 [facility] Laboratory - Hematology and Cell countsOrdered By: Evin Sarmiento on 10-22-2022 Erythrocyte distribution width (RBC) [Entitic vol] 47.2 fL 35.1-43.9 [facility] Erythrocyte distribution width (RBC) [Ratio] 14.3 % 11.6-14.6 [facility] MCH (RBC) [Entitic mass] 30.2 pg 27.0-32.0 [facility] MCHC Auto (RBC) [Mass/Vol]Or dered By: Evin Sarmiento on 10-22-2022 MCHC (RBC) [Mass/Vol] 33.6 g/dL 32-36 [facility] No Panel InformationOrdered By: Evin Sarmiento on 10-22-2022 Estimated GFR (MDRD) Amer 50 mL/min >60 [facility] Comment on above: GFR Calc Estimated GFR (MDRD) Non-Af Amer 42 mL/min >60 [facility] Comment on above: Non- GFR Calc Platelets bldOrdered By: Ignacio Sarmiento on 10-22-2022 Platelets (Bld) [#/Vol] 186 10*3/uL 150-450 [facility] Serum or plasma calcium sita urement (mass/volume)Ordered By: Evin Sarmiento on 10-22-2022 Calcium [Mass/Vol] 8.2 mg/dL 8.5-10.1 [facility] Serum or plasma creatinine m easurement (mass/volume)Ordered By: Evin Sarmiento on 10-22-2022 Creatinine [Mass/Vol] 1.67 mg/dL 0.70-1.30 [facility] Comment on above: The validity of the calculated GFR & GFRAA in patients over 70 years has not been determined. Clinical correlation is essential. Serum or plasma urea nitroge n measurement (mass/volume)Ordered By: Evin Sarmiento on 10-22-2022 Urea nitrogen [Mass/Vol] 17 mg/dL 7-18 [facility] Thin prep Papanicolaou smear with manual screeningOrdered By: Evin Sarmiento on 10-22-2022 Thin prep Papanicolaou smear with manual screening 4 5-15 [facility] Basophil percentageOrdered B y: Dr. Tobias on 09-24-2022 Chloride [Moles/Vol] 104 mmol/L 98-107 [facility] Glucose [Mass/Vol] 61 mg/dL 74-106 [facility] Potassium [Moles/Vol] 3.0 mmol/L 3.5-5.1 [facility] Sodium [Moles/Vol] 135 mmol/L 136-145 [facility] WBC (Bld) [#/Vol] 12.7 10*3/uL 4.4-11.0 [facility] Blood erythrocytes count (nu mber/volume)Ordered By: Dr. Tobias on 09-24-2022 RBC (Bld) [#/Vol] 4.83 10*6/uL 4.6-6.2 [facility] Blood hemoglobin measurement (mass/volume)Ordered By: Dr. Tobias on 09-24-2022 Hemoglobin (Bld) [Mass/Vol] 14.3 g/dL 13.0-16.5 [facility] Blood platelet mean volumeOr dered By: Dr. Tobias on 09-24-2022 Platelet mean volume (Bld) [Entitic vol] 11.6 fL 6.2-12.0 [facility] Determination of erythrocyte mean corpuscular volume (MCV)Ordered By: Dr. Tobias on 09-24-2022 MCV (RBC) [Entitic vol] 87.4 fL 80-94 [facility] Glucose Glucometer (BldC) [M ass/Vol]Ordered By: Dr. Tobias on 09-24-2022 Glucose [Mass/Vol] 182 mg/dL 74-106 [facility] Comment on above: MANAGEMENT OF PATIEN T CARE PER NURSING PROTOCOL Hematocrit Auto (Bld) [Volum e fraction]Ordered By: Dr. Tobias on 09-24-2022 Hematocrit (Bld) [Volume fraction] 42.2 % 40-54 [facility] Laboratory - Chemistry and C hemistry - challengeOrdered By: Dr. Tobias on 09-24-2022 CO2 [Moles/Vol] 22.0 mmol/L 21.0-32.0 [facility] Urea nitrogen/Creatinine [Mass ratio] 12.4 mg/mg 10-20 [facility] Laboratory - Hematology and Cell countsOrdered By: Dr. Tobias on 09-24-2022 Erythrocyte distribution width (RBC) [Entitic vol] 44.3 fL 35.1-43.9 [facility] Erythrocyte distribution width (RBC) [Ratio] 14.0 % 11.6-14.6 [facility] MCH (RBC) [Entitic mass] 29.6 pg 27.0-32.0 [facility] MCHC Auto (RBC) [Mass/Vol]Or dered By: Dr. Tobias on 09-24-2022 MCHC (RBC) [Mass/Vol] 33.9 g/dL 32-36 [facility] No Panel InformationOrdered By: Dr. Tobias on 09-24-2022 Estimated Creatinine Clearance Calc 30.93 ml/min [facility] Estimated GFR (MDRD) Amer 47 mL/min >60 [facility] Comment on above: GFR Calc Estimated GFR (MDRD) Non-Af Amer 39 mL/min >60 [facility] Comment on above: Non- GFR Calc Platelets bldOrdered By: Dr. Tobias on 09-24-2022 Platelets (Bld) [#/Vol] 212 10*3/uL 150-450 [facility] Serum or plasma calcium sita urement (mass/volume)Ordered By: Dr. Tobias on 09-24-2022 Calcium [Mass/Vol] 8.5 mg/dL 8.5-10.1 [facility] Serum or plasma creatinine m easurement (mass/volume)Ordered By: Dr. Tobias on 09-24-2022 Creatinine [Mass/Vol] 1.77 mg/dL 0.70-1.30 [facility] Comment on above: The validity of the calculated GFR & GFRAA in patients over 70 years has not been determined. Clinical correlation is essential. Serum or plasma urea nitroge n measurement (mass/volume)Ordered By: Dr. Tobias on 09-24-2022 Urea nitrogen [Mass/Vol] 22 mg/dL 7-18 [facility] Thin prep Papanicolaou smear with manual screeningOrdered By: Dr. Tobias on 09-24-2022 Thin prep Papanicolaou smear with manual screening 9 5-15 [facility] Basophil percentageOrdered B y: Dr. Tobias on 09-19-2022 Basophil percentage 0-5 SEEN /hpf 0-5 [facility] Bilirubin Test strip Ql (U)O rdered By: Dr. Tobias on 09-19-2022 Bilirubin Ql (U) Negative Negative [facility] Ketones Test strip Ql (U)Ord ered By: Dr. Tobias on 09-19-2022 Ketones Ql (U) Negative Negative [facility] Mucus LM Ql (Urine sed)Order ed By: Dr. Tobias on 09-19-2022 Mucus Ql (Urine sed) 0 SEEN /hpf [facility] Nitrite Test strip Ql (U)Ord ered By: Dr. Tobias on 09-19-2022 Nitrite Ql (U) Negative Negative [facility] Protein Test strip Ql (U)Ord ered By: Dr. Tobias on 09-19-2022 Protein Ql (U) 30 mg/dl Negative [facility] Squamous epithelial cells de tection in urine sediment by light microscopyOrdered By: Dr. Tobias on 09-19-2022 Epithelial cells.squamous LM Ql (Urine sed) 0 SEEN /hpf 0-5 [facility] Urine blood detectionOrdered By: Dr. Tobias on 09-19-2022 RBC Ql (U) 10 /ul Negative [facility] RBC Ql (U) 0-5 SEEN /hpf 0-5 [facility] Urine clarityOrdered By: Dr. Tobias on 09-19-2022 Clarity (U) Sl. Cloudy Clear [facility] Urine color determinationOrd ered By: Dr. Tobias on 09-19-2022 Color (U) Yellow Yellow [facility] Urine glucose detectionOrder ed By: Dr. Tobias on 09-19-2022 Glucose Ql (U) Normal mg/dl Normal [facility] Urine leukocyte esterase det ection by dipstickOrdered By: Dr. Tobias on 09-19-2022 Leukocyte esterase Test strip Ql (U) 25 /ul Negative [facility] Urine pHOrdered By: Dr. Stephani buck on 09-19-2022 pH (U) 6.5 [pH] 5.0 - 8.0 [facility] Urine sediment bacteria coun t by microscopy (number/high power field)Ordered By: Dr. Tobias on 09-19-2022 Bacteria LM.HPF (Urine sed) [#/Area] 0 /[HPF] None Seen [facility] Urine specific gravity measu rementOrdered By: Dr. Tobias on 09-19-2022 Specific gravity (U) [Rel density] 1.010 1.002-1.030 [facility] Urobilinogen Auto test strip Ql (U)Ordered By: Dr. Tobias on 09-19-2022 Urobilinogen Ql (U) Normal mg/dl Normal [facility] Basophil percentageOrdered B y: Dr. Haq on 09-04-2022 Chloride [Moles/Vol] 101 mmol/L 98-107 [facility] Glucose [Mass/Vol] 148 mg/dL 74-106 [facility] Comment on above: Fasting Glucose resu lt greater than or equal to 126 mg/dL suggests DIABETES MELLITUS per A.D.A. criteria. Potassium [Moles/Vol] 3.4 mmol/L 3.5-5.1 [facility] Sodium [Moles/Vol] 135 mmol/L 136-145 [facility] Laboratory - Chemistry and C hemistry - challengeOrdered By: Dr. Haq on 09-04-2022 CO2 [Moles/Vol] 27.0 mmol/L 21.0-32.0 [facility] Urea nitrogen/Creatinine [Mass ratio] 8.4 mg/mg 10-20 [facility] No Panel InformationOrdered By: Dr. Haq on 09-04-2022 Estimated GFR (MDRD) Amer 50 mL/min >60 [facility] Comment on above: GFR Calc Estimated GFR (MDRD) Non-Af Amer 42 mL/min >60 [facility] Comment on above: Non- GFR Calc Serum or plasma calcium sita urement (mass/volume)Ordered By: Dr. Haq on 09-04-2022 Calcium [Mass/Vol] 8.8 mg/dL 8.5-10.1 [facility] Serum or plasma creatinine m easurement (mass/volume)Ordered By: Dr. Haq on 09-04-2022 Creatinine [Mass/Vol] 1.67 mg/dL 0.70-1.30 [facility] Comment on above: The validity of the calculated GFR & GFRAA in patients over 70 years has not been determined. Clinical correlation is essential. Serum or plasma urea nitroge n measurement (mass/volume)Ordered By: Dr. Haq on 09-04-2022 Urea nitrogen [Mass/Vol] 14 mg/dL 7-18 [facility] Thin prep Papanicolaou smear with manual screeningOrdered By: Dr. Haq on 09-04-2022 Thin prep Papanicolaou smear with manual screening 7 5-15 [facility] Absolute lymphocyte countOrd ered By: Dr. Haq on 08-08-2022 Lymphocytes Auto (Unsp spec) [#/Vol] 1.56 10*3/uL 0.83-4.51 [facility] Basophil percentageOrdered B y: Dr. Haq on 08-08-2022 Basophils/100 WBC (Bld) 0.3 % 0-1 [facility] Bilirubin [Mass/Vol] 1.60 mg/dL 0.20-1.00 [facility] Comment on above: For patients on eltr ombopag therapy, use of Dimension Ringold TBIL is not recommended. Chloride [Moles/Vol] 97 mmol/L 98-107 [facility] Eosinophils/100 WBC (Bld) 2.1 % 0-5 [facility] Glucose [Mass/Vol] 309 mg/dL 74-106 [facility] Comment on above: Glucose result great er than or equal to 200 mg/dLsuggests DIABETES MELLITUS per A.D.A. criteria. Neutrophils (Bld) [#/Vol] 6.0 10*3/uL 2.0-7.7 [facility] Neutrophils/100 WBC (Bld) 69.0 % 47-70 [facility] Potassium [Moles/Vol] 3.4 mmol/L 3.5-5.1 [facility] Protein [Mass/Vol] 6.9 g/dL 6.4-8.2 [facility] Sodium [Moles/Vol] 134 mmol/L 136-145 [facility] WBC (Bld) [#/Vol] 8.7 10*3/uL 4.4-11.0 [facility] Blood erythrocytes count (nu mber/volume)Ordered By: Dr. Haq on 08-08-2022 RBC (Bld) [#/Vol] 4.59 10*6/uL 4.6-6.2 [facility] Blood hemoglobin measurement (mass/volume)Ordered By: Dr. Haq on 08-08-2022 Hemoglobin (Bld) [Mass/Vol] 13.8 g/dL 13.0-16.5 [facility] Blood lymphocytes/100 leukoc ytesOrdered By: Dr. Haq on 08-08-2022 Lymphocytes/100 WBC (Bld) 17.9 % 19-41 [facility] Blood monocytes/100 leukocyt esOrdered By: Dr. Haq on 08-08-2022 Monocytes/100 WBC (Bld) 10.2 % 0-10 [facility] Blood platelet mean volumeOr dered By: Dr. Haq on 08-08-2022 Platelet mean volume (Bld) [Entitic vol] 12.6 fL 6.2-12.0 [facility] Determination of erythrocyte mean corpuscular volume (MCV)Ordered By: Dr. Haq on 08-08-2022 MCV (RBC) [Entitic vol] 88.2 fL 80-94 [facility] Hematocrit Auto (Bld) [Volum e fraction]Ordered By: Dr. Haq on 08-08-2022 Hematocrit (Bld) [Volume fraction] 40.5 % 40-54 [facility] Laboratory - Chemistry and C hemistry - challengeOrdered By: Dr. Haq on 08-08-2022 ALP [Catalytic activity/Vol] 156 U/L 45-117 [facility] ALT [Catalytic activity/Vol] 19 U/L 16-61 [facility] CO2 [Moles/Vol] 31.0 mmol/L 21.0-32.0 [facility] Globulin (S) [Mass/Vol] 3.6 g/dL 2.2-4.2 [facility] Urea nitrogen/Creatinine [Mass ratio] 9.5 mg/mg 10-20 [facility] Laboratory - Hematology and Cell countsOrdered By: Dr. Haq on 08-08-2022 Erythrocyte distribution width (RBC) [Entitic vol] 43.8 fL 35.1-43.9 [facility] Erythrocyte distribution width (RBC) [Ratio] 13.8 % 11.6-14.6 [facility] Immature granulocytes/100 WBC (Bld) 0.500 % 0.0-0.9 [facility] Comment on above: IG% - Immature Granu locytes (promyelocytes, myelocytes and metamyelocytes) > 1% indicates that a LEFT SHIFT is Present. MCH (RBC) [Entitic mass] 30.1 pg 27.0-32.0 [facility] Nucleated RBC/100 WBC (Bld) [Ratio] 0 % 0-5 [facility] MCHC Auto (RBC) [Mass/Vol]Or dered By: Dr. Haq on 08-08-2022 MCHC (RBC) [Mass/Vol] 34.1 g/dL 32-36 [facility] No Panel InformationOrdered By: Dr. Haq on 08-08-2022 Estimated GFR (MDRD) Amer 50 mL/min >60 [facility] Comment on above: GFR Calc Estimated GFR (MDRD) Non-Af Amer 41 mL/min >60 [facility] Comment on above: Non- GFR Calc Thyroid Stimulating Hormone (TSH) 2.57 uIU/mL 0.358-3.74 [facility] Vitamin D 25-Hydroxy 43.9 ng/mL [facility] Comment on above: Vitamin D 25(OH) Sta tus Range Deficiency <20 ng/mL (50nmol/L) Insufficiency 20 - 30 ng/mL (50 - 75 nmol/L) Sufficiency 30 - 100 ng/mL (75 - 250 nmol/L) Toxicity >100 ng/mL (>250 nmol/L) Platelets bldOrdered By: Dr. Haq on 08-08-2022 Platelets (Bld) [#/Vol] 165 10*3/uL 150-450 [facility] Serum or plasma albumin sita urement (mass/volume)Ordered By: Dr. Haq on 08-08-2022 Albumin [Mass/Vol] 3.3 g/dL 3.2-5.0 [facility] Serum or plasma albumin/glob ulin mass ratioOrdered By: Dr. Haq on 08-08-2022 Albumin/Globulin [Mass ratio] 0.9 {ratio} 0.9-2.4 [facility] Serum or plasma calcium sita urement (mass/volume)Ordered By: Dr. Haq on 08-08-2022 Calcium [Mass/Vol] 8.5 mg/dL 8.5-10.1 [facility] Serum or plasma creatinine m easurement (mass/volume)Ordered By: Dr. Haq on 08-08-2022 Creatinine [Mass/Vol] 1.69 mg/dL 0.70-1.30 [facility] Comment on above: The validity of the calculated GFR & GFRAA in patients over 70 years has not been determined. Clinical correlation is essential. Serum or plasma urea nitroge n measurement (mass/volume)Ordered By: Dr. Haq on 08-08-2022 Urea nitrogen [Mass/Vol] 16 mg/dL 7-18 [facility] Thin prep Papanicolaou smear with manual screeningOrdered By: Dr. Haq on 08-08-2022 Thin prep Papanicolaou smear with manual screening 15 U/L 15-37 [facility] Thin prep Papanicolaou smear with manual screening 6 5-15 [facility] Absolute lymphocyte countOrd ered By: Evin Sarmiento on 07-20-2022 Lymphocytes Auto (Unsp spec) [#/Vol] 1.15 10*3/uL 0.83-4.51 [facility] Basophil percentageOrdered B y: Evin Sarmiento on 07-20-2022 Basophils/100 WBC (Bld) 0.4 % 0-1 [facility] Chloride [Moles/Vol] 97 mmol/L 98-107 [facility] Eosinophils/100 WBC (Bld) 1.9 % 0-5 [facility] Glucose [Mass/Vol] 197 mg/dL 74-106 [facility] Comment on above: Fasting Glucose resu lt greater than or equal to 126 mg/dL suggests DIABETES MELLITUS per A.D.A. criteria. Neutrophils (Bld) [#/Vol] 6.1 10*3/uL 2.0-7.7 [facility] Neutrophils/100 WBC (Bld) 75.5 % 47-70 [facility] Potassium [Moles/Vol] 3.3 mmol/L 3.5-5.1 [facility] Sodium [Moles/Vol] 137 mmol/L 136-145 [facility] WBC (Bld) [#/Vol] 8.0 10*3/uL 4.4-11.0 [facility] Blood erythrocytes count (nu mber/volume)Ordered By: Evin Sarmiento on 07-20-2022 RBC (Bld) [#/Vol] 5.03 10*6/uL 4.6-6.2 [facility] Blood hemoglobin measurement (mass/volume)Ordered By: Evin Sarmiento on 07-20-2022 Hemoglobin (Bld) [Mass/Vol] 15.0 g/dL 13.0-16.5 [facility] Blood lymphocytes/100 leukoc ytesOrdered By: Evin Sarmiento on 07-20-2022 Lymphocytes/100 WBC (Bld) 14.3 % 19-41 [facility] Blood monocytes/100 leukocyt esOrdered By: Evin Sarmiento on 07-20-2022 Monocytes/100 WBC (Bld) 7.5 % 0-10 [facility] Blood platelet mean volumeOr dered By: Evin Sarmiento on 07-20-2022 Platelet mean volume (Bld) [Entitic vol] 12.4 fL 6.2-12.0 [facility] Determination of erythrocyte mean corpuscular volume (MCV)Ordered By: Evin Sarmiento on 07-20-2022 MCV (RBC) [Entitic vol] 87.5 fL 80-94 [facility] Hematocrit Auto (Bld) [Volum e fraction]Ordered By: Evin Sarmiento on 07-20-2022 Hematocrit (Bld) [Volume fraction] 44.0 % 40-54 [facility] Laboratory - Chemistry and C hemistry - challengeOrdered By: Evin Sarmiento on 07-20-2022 CO2 [Moles/Vol] 31.0 mmol/L 21.0-32.0 [facility] Urea nitrogen/Creatinine [Mass ratio] 10.9 mg/mg 10-20 [facility] Laboratory - Chemistry and C hemistry - challengeOrdered By: Dr. Haq on 07-20-2022 Natriuretic peptide B (Bld) [Mass/Vol] 96.3 pg/mL 0-100 [facility] Laboratory - Hematology and Cell countsOrdered By: Evin Sarmiento on 07-20-2022 Erythrocyte distribution width (RBC) [Entitic vol] 43.6 fL 35.1-43.9 [facility] Erythrocyte distribution width (RBC) [Ratio] 13.8 % 11.6-14.6 [facility] Immature granulocytes/100 WBC (Bld) 0.400 % 0.0-0.9 [facility] Comment on above: IG% - Immature Granu locytes (promyelocytes, myelocytes and metamyelocytes) > 1% indicates that a LEFT SHIFT is Present. MCH (RBC) [Entitic mass] 29.8 pg 27.0-32.0 [facility] Nucleated RBC/100 WBC (Bld) [Ratio] 0 % 0-5 [facility] MCHC Auto (RBC) [Mass/Vol]Or dered By: Evin Sarmiento on 07-20-2022 MCHC (RBC) [Mass/Vol] 34.1 g/dL 32-36 [facility] No Panel InformationOrdered By: Evin Sarmiento on 07-20-2022 Estimated GFR (MDRD) Amer 54 mL/min >60 [facility] Comment on above: GFR Calc Estimated GFR (MDRD) Non-Af Amer 45 mL/min >60 [facility] Comment on above: Non- GFR Calc No Panel InformationOrdered By: Dr. Haq on 07-20-2022 Parathyroid Hormone (Intact) 110.2 pg/mL 18.4-80.1 [facility] Platelets bldOrdered By: Ignacio Sarmiento on 07-20-2022 Platelets (Bld) [#/Vol] 206 10*3/uL 150-450 [facility] Serum or plasma albumin sita urement (mass/volume)Ordered By: Evin Sarmiento on 07-20-2022 Albumin [Mass/Vol] 3.3 g/dL 3.2-5.0 [facility] Serum or plasma calcium sita urement (mass/volume)Ordered By: Evin Sarmiento on 07-20-2022 Calcium [Mass/Vol] 8.9 mg/dL 8.5-10.1 [facility] Serum or plasma creatinine m easurement (mass/volume)Ordered By: Evin Sarmiento on 07-20-2022 Creatinine [Mass/Vol] 1.56 mg/dL 0.70-1.30 [facility] Comment on above: The validity of the calculated GFR & GFRAA in patients over 70 years has not been determined. Clinical correlation is essential. Serum or plasma urea nitroge n measurement (mass/volume)Ordered By: Evin Sarmiento on 07-20-2022 Urea nitrogen [Mass/Vol] 17 mg/dL 7-18 [facility] Thin prep Papanicolaou smear with manual screeningOrdered By: Evin Sarmiento on 07-20-2022 Thin prep Papanicolaou smear with manual screening 9 5-15 [facility] Basophil percentageon 2021 Chloride [Moles/Vol] 99 mmol/L 98-107 [facility] Work Phone: Glucose [Mass/Vol] 227 mg/dL 74-106 [facility] Work Phone: Comment on above: Glucose result great er than or equal to 200 mg/dLsuggests DIABETES MELLITUS per A.D.A. criteria. Potassium [Moles/Vol] 3.5 mmol/L 3.5-5.1 [facility] Work Phone: Sodium [Moles/Vol] 139 mmol/L 136-145 [facility] Work Phone: Laboratory - Chemistry and C hemistry - challengeon 02-26-2022 CO2 [Moles/Vol] 31.0 mmol/L 21.0-32.0 [facility] Work Phone: Urea nitrogen/Creatinine [Mass ratio] 8.0 mg/mg 10-20 [facility] Work Phone: No Panel Informationon 02-26 Estimated GFR (MDRD) Amer 52 mL/min >60 [facility] Work Phone: Comment on above: GFR Calc Estimated GFR (MDRD) Non-Af Amer 43 mL/min >60 [facility] Work Phone: Comment on above: Non- GFR Calc Serum or plasma calcium sita urement (mass/volume)on 02-26-2022 Calcium [Mass/Vol] 8.7 mg/dL 8.5-10.1 [facility] Work Phone: Serum or plasma creatinine m easurement (mass/volume)on 02-26-2022 Creatinine [Mass/Vol] 1.63 mg/dL 0.70-1.30 [facility] Work Phone: Comment on above: The validity of the calculated GFR & GFRAA in patients over 70 years has not been determined. Clinical correlation is essential. Serum or plasma urea nitroge n measurement (mass/volume)on 02-26-2022 Urea nitrogen [Mass/Vol] 13 mg/dL 7-18 [facility] Work Phone: Thin prep Papanicolaou smear with manual screeningon 02-26-2022 Thin prep Papanicolaou smear with manual screening 9 5-15 [facility] Work Phone: Absolute lymphocyte counton 02-04-2022 Lymphocytes Auto (Unsp spec) [#/Vol] 1.28 10*3/uL 0.83-4.51 [facility] Work Phone: Basophil percentageon 2021 Basophils/100 WBC (Bld) 0.4 % 0-1 [facility] Work Phone: Chloride [Moles/Vol] 103 mmol/L 98-107 [facility] Work Phone: Eosinophils/100 WBC (Bld) 1.2 % 0-5 [facility] Work Phone: Glucose [Mass/Vol] 204 mg/dL 74-106 [facility] Work Phone: Comment on above: Glucose result great er than or equal to 200 mg/dLsuggests DIABETES MELLITUS per A.D.A. criteria. Neutrophils (Bld) [#/Vol] 8.8 10*3/uL 2.0-7.7 [facility] Work Phone: Neutrophils/100 WBC (Bld) 78.6 % 47-70 [facility] Work Phone: Potassium [Moles/Vol] 3.9 mmol/L 3.5-5.1 [place] [facility] Work Phone: Sodium [Moles/Vol] 138 mmol/L 136-145 [facility]: WBC (Bld) [#/Vol] 11.2 10*3/uL 4.4-11.[address] [facility] Work Phone: Blood erythrocytes count (nu mber/volume)on 02-04-2022 RBC (Bld) [#/Vol] 4.32 10*6/uL 4.6-6.2 [facility] Work Phone: Blood hemoglobin measurement (mass/volume)on 02-04-2022 Hemoglobin (Bld) [Mass/Vol] 13.2 g/dL 13.0-16.5 [facility] Work Phone: Blood lymphocytes/100 leukoc yteson 02-04-2022 Lymphocytes/100 WBC (Bld) 11.4 % 19-41 [facility] Work Phone: Blood monocytes/100 leukocyt eson 02-04-2022 Monocytes/100 WBC (Bld) 8.0 % 0-10 [facility] Work Phone: Blood platelet mean volumeon 02-04-2022 Platelet mean volume (Bld) [Entitic vol] 11.3 fL 6.2-12.0 [facility] Work Phone: Determination of erythrocyte mean corpuscular volume (MCV)on 02-04-2022 MCV (RBC) [Entitic vol] 88.0 fL 80-94 [facility] Work Phone: Hematocrit Auto (Bld) [Volum e fraction]on 02-04-2022 Hematocrit (Bld) [Volume fraction] 38.0 % 40-54 [facility] Work Phone: Laboratory - Chemistry and C hemistry - challengeon 02-04-2022 CO2 [Moles/Vol] 28.0 mmol/L 21.0-32.0 [facility] Work Phone: Natriuretic peptide B (Bld) [Mass/Vol] 256.6 pg/mL 0-100 [facility] Work Phone: Urea nitrogen/Creatinine [Mass ratio] 8.0 mg/mg 10-20 [facility] Work Phone: Laboratory - Hematology and Cell countson 02-04-2022 Erythrocyte distribution width (RBC) [Entitic vol] 43.9 fL 35.1-43.9 [facility] Work Phone: Erythrocyte distribution width (RBC) [Ratio] 13.6 % 11.6-14.6 [facility] Work Phone: Immature granulocytes/100 WBC (Bld) 0.400 % 0.0-0.9 [facility] Work Phone: Comment on above: IG% - Immature Granu locytes (promyelocytes, myelocytes and metamyelocytes) > 1% indicates that a LEFT SHIFT is Present. MCH (RBC) [Entitic mass] 30.6 pg 27.0-32.0 [facility] Work Phone: Nucleated RBC/100 WBC (Bld) [Ratio] 0 % 0-5 [facility] Work Phone: MCHC Auto (RBC) [Mass/Vol]on 02-04-2022 MCHC (RBC) [Mass/Vol] 34.7 g/dL 32-36 [facility] Work Phone: No Panel Informationon 02-04 Estimated Creatinine Clearance Calc 33.80 ml/min [facility] Work Phone: Estimated GFR (MDRD) Amer 52 mL/min >60 [facility] Work Phone: Comment on above: GFR Calc Estimated GFR (MDRD) Non-Af Amer 43 mL/min >60 [facility] Work Phone: Comment on above: Non- GFR Calc Troponin I High Sensitivity 22 pg/mL 3.0-78.0 [facility] Work Phone: Comment on above: Please Note: [place] t Units and Gender Specific Reference Ranges. For more information see Policy Stat Procedure [place] High Sensitivity Troponin (TNIH) and attachments. Platelets bldon 02-04-2022 Platelets (Bld) [#/Vol] 203 10*3/uL 150-450 [facility] Work Phone: Serum or plasma calcium sita urement (mass/volume)on 02-04-2022 Calcium [Mass/Vol] 8.7 mg/dL 8.5-10.1 [facility] Work Phone: Serum or plasma creatinine m easurement (mass/volume)on 02-04-2022 Creatinine [Mass/Vol] 1.62 mg/dL 0.70-1.30 [facility] Work Phone: Comment on above: The validity of the calculated GFR & GFRAA in patients over 70 years has not been determined. Clinical correlation is essential. Serum or plasma urea nitroge n measurement (mass/volume)on 02-04-2022 Urea nitrogen [Mass/Vol] 13 mg/dL 12-04 [facility] Work Phone: Thin prep Papanicolaou smear with manual screeningon 02-04-2022 Thin prep Papanicolaou smear with manual screening 7 5-15 [facility] Work Phone: Absolute lymphocyte counton 01-18-2022 Lymphocytes Auto (Unsp spec) [#/Vol] 1.28 10*3/uL 0.83-4.51 [facility] Work Phone: Basophil percentageon 2021 Basophils/100 WBC (Bld) 0.6 % 0-1 [facility] Work Phone: Bilirubin [Mass/Vol] 1.70 mg/dL 0.20-1.00 [facility] Work Phone: Comment on above: For patients on eltr ombopag therapy, use of Dimension [place] TBIL is not recommended. Chloride [Moles/Vol] 98 mmol/L 98-107 [facility] Work Phone: Eosinophils/100 WBC (Bld) 2.7 % 0-5 [facility] Work Phone: [phone] Glucose [Mass/Vol] 193 mg/dL 74-106 [facility] Work Phone: Comment on above: Fasting Glucose resu lt greater than or equal to 126 mg/dL suggests DIABETES MELLITUS per A.D.A. criteria. Neutrophils (Bld) [#/Vol] 6.6 10*3/uL 2.0-7.7 [facility] Work Phone: Neutrophils/100 WBC (Bld) 72.6 % 47-70 [facility] Work Phone: Potassium [Moles/Vol] 3.4 mmol/L 3.5-5.1 [facility] Work Phone: Protein [Mass/Vol] 6.8 g/dL 6.4-8.2 [facility] Work Phone: Sodium [Moles/Vol] 136 mmol/L 136-145 [facility] Work Phone: [phone] WBC (Bld) [#/Vol] 9.0 10*3/uL 4.4-11.0 [facility] Work Phone: Blood erythrocytes count (nu mber/volume)on 01-18-2022 RBC (Bld) [#/Vol] 4.33 10*6/uL 4.6-6.2 [facility] Work Phone: Blood hemoglobin measurement (mass/volume)on 01-18-2022 Hemoglobin (Bld) [Mass/Vol] 12.9 g/dL 13.0-16.5 [facility] Work Phone: [phone] Blood lymphocytes/100 leukoc yteson 01-18-2022 Lymphocytes/100 WBC (Bld) 14.2 % 19-41 [facility] Work Phone: Blood monocytes/100 leukocyt eson 01-18-2022 Monocytes/100 WBC (Bld) 9.5 % 0-10 [facility] Work Phone: Blood platelet mean volumeon 01-18-2022 Platelet mean volume (Bld) [Entitic vol] 11.6 fL 6.2-12.0 [facility] Work Phone: Determination of erythrocyte mean corpuscular volume (MCV)on 01-18-2022 MCV (RBC) [Entitic vol] 87.8 fL 80-94 [facility] Work Phone: Hematocrit Auto (Bld) [Volum e fraction]on 01-18-2022 Hematocrit (Bld) [Volume fraction] 38.0 % 40-54 [facility] Work Phone: Laboratory - Chemistry and C hemistry - challengeon 01-18-2022 ALP [Catalytic activity/Vol] 143 U/L 45-117 [facility] Work Phone: ALT [Catalytic activity/Vol] 22 U/L 16-61 [facility] Work Phone: CO2 [Moles/Vol] 31.0 mmol/L 21.0-32.0 [facility] Work Phone: Globulin (S) [Mass/Vol] 3.6 g/dL 2.2-4.2 [facility] Work Phone: Urea nitrogen/Creatinine [Mass ratio] 8.6 mg/mg 10-20 [facility] Work Phone: Laboratory - Hematology and Cell countson 01-18-2022 Erythrocyte distribution width (RBC) [Entitic vol] 42.8 fL 35.1-43.9 [facility] Work Phone: Erythrocyte distribution width (RBC) [Ratio] 13.2 % 11.6-14.6 [facility] Work Phone: Immature granulocytes/100 WBC (Bld) 0.400 % 0.0-0.9 [facility] Work Phone: Comment on above: IG% - Immature Granu locytes (promyelocytes, myelocytes and metamyelocytes) > 1% indicates that a LEFT SHIFT is Present. MCH (RBC) [Entitic mass] 29.8 pg 27.0-32.0 [facility] Work Phone: Nucleated RBC/100 WBC (Bld) [Ratio] 0 % 0-5 [facility] Work Phone: MCHC Auto (RBC) [Mass/Vol]on 01-18-2022 MCHC (RBC) [Mass/Vol] 33.9 g/dL 32-36 [facility] Work Phone: No Panel Informationon 01-18 Estimated GFR (MDRD) Amer 62 mL/min >60 [facility] Work Phone: Comment on above: GFR Calc Estimated GFR (MDRD) Non-Af Amer 52 mL/min >60 [facility] Work Phone: Comment on above: Non- GFR Calc Thyroid Stimulating Hormone (TSH) 2.83 uIU/mL 0.358-3.74 [facility] Work Phone: Vitamin D 25-Hydroxy 43.2 ng/mL [facility] Work Phone: Comment on above: Vitamin D 25(OH) Sta tus Range Deficiency <20 ng/mL (50nmol/L) Insufficiency 20 - 30 ng/mL (50 - 75 nmol/L) Sufficiency 30 - 100 ng/mL (75 - 250 nmol/L) Toxicity >100 ng/mL (>250 nmol/L) Platelets bldon 01-18-2022 Platelets (Bld) [#/Vol] 190 10*3/uL 150-450 [facility] Work Phone: Serum or plasma albumin sita urement (mass/volume)on 01-18-2022 Albumin [Mass/Vol] 3.2 g/dL 3.2-5.0 [facility] Work Phone: Serum or plasma albumin/glob ulin mass ratioon 01-18-2022 Albumin/Globulin [Mass ratio] 0.9 {ratio} 0.9-2.4 [facility] Work Phone: Serum or plasma calcium sita urement (mass/volume)on 01-18-2022 Calcium [Mass/Vol] 8.3 mg/dL 8.5-10.1 [facility] Work Phone: Serum or plasma creatinine m easurement (mass/volume)on 01-18-2022 Creatinine [Mass/Vol] 1.39 mg/dL 0.70-1.30 [facility] Work Phone: Comment on above: The validity of the calculated GFR & GFRAA in patients over 70 years has not been determined. Clinical correlation is essential. Serum or plasma urea nitroge n measurement (mass/volume)on 01-18-2022 Urea nitrogen [Mass/Vol] 12 mg/dL 7-18 [facility] Work Phone: Thin prep Papanicolaou smear with manual screeningon 01-18-2022 Thin prep Papanicolaou smear with manual screening 15 U/L 15-37 [facility] Work Phone: Thin prep Papanicolaou smear with manual screening 7 5-15 [facility] Work Phone: Basophil percentageon 2021 Chloride [Moles/Vol] 101 mmol/L 98-107 [facility] Work Phone: Glucose [Mass/Vol] 137 mg/dL 74-106 [facility] Work Phone: Comment on above: Fasting Glucose resu lt greater than or equal to 126 mg/dL suggests DIABETES MELLITUS per A.D.A. criteria. Potassium [Moles/Vol] 3.7 mmol/L 3.5-5.1 [facility] Work Phone: Sodium [Moles/Vol] 137 mmol/L 136-145 [facility] Work Phone: Laboratory - Chemistry and C hemistry - challengeon 12-27-2021 CO2 [Moles/Vol] 29.0 mmol/L 21.0-32.0 [facility] Work Phone: Magnesium [Mass/Vol] 1.8 mg/dL 1.6-2.6 [facility] Work Phone: Urea nitrogen/Creatinine [Mass ratio] 8.9 mg/mg 10-20 [facility] Work Phone: No Panel Informationon 12-27 Estimated GFR (MDRD) Amer 54 mL/min >60 [facility] Work Phone: Comment on above: GFR Calc Estimated GFR (MDRD) Non-Af Amer 44 mL/min >60 [facility] Work Phone: Comment on above: Non- GFR Calc Serum or plasma calcium sita urement (mass/volume)on 12-27-2021 Calcium [Mass/Vol] 9.1 mg/dL 8.5-10.1 [facility] Work Phone: Serum or plasma creatinine m easurement (mass/volume)on 12-27-2021 Creatinine [Mass/Vol] 1.58 mg/dL 0.70-1.30 [facility] Work Phone: Comment on above: The validity of the calculated GFR & GFRAA in patients over 70 years has not been determined. Clinical correlation is essential. Serum or plasma urea nitroge n measurement (mass/volume)on 12-27-2021 Urea nitrogen [Mass/Vol] 14 mg/dL 7-18 [facility] Work Phone: Thin prep Papanicolaou smear with manual screeningon 12-27-2021 Thin prep Papanicolaou smear with manual screening 7 5-15 [facility] Work Phone: Absolute lymphocyte counton 12-22-2021 Lymphocytes Auto (Unsp spec) [#/Vol] 1.02 10*3/uL 0.83-4.51 [facility] Work Phone: Basophil percentageon 2021 Basophils/100 WBC (Bld) 0.4 % 0-1 [facility] Work Phone: Chloride [Moles/Vol] 98 mmol/L 98-[address] [facility] Work Phone: Cholesterol [Mass/Vol] 85 mg/dL <200 [facility] Work Phone: Comment on above: <200 mg/dL Desirable 200-240 mg/dL Borderline >240 mg/dL High Risk Eosinophils/100 WBC (Bld) 2.0 % 0-5 [facility] Work Phone: Glucose [Mass/Vol] 130 mg/dL 74-106 [facility] Work Phone: Comment on above: Fasting Glucose resu lt greater than or equal to 126 mg/dL suggests DIABETES MELLITUS per A.D.A. criteria. Neutrophils (Bld) [#/Vol] 5.9 10*3/uL 2.0-7.7 [facility] Work Phone: Neutrophils/100 WBC (Bld) 74.4 % 47-70 [facility] Work Phone: Potassium [Moles/Vol] 3.1 mmol/L 3.5-5.1 [facility] Work Phone: Sodium [Moles/Vol] 134 mmol/L 136-145 [facility] Work Phone: Triglyceride [Mass/Vol] 73 mg/dL <199 [facility] Work Phone: Comment on above: The drugs N-Acetylcy steine and Metamizole may falsely depress this assay.Serum Triglycerides Reference Interval Normal <150 mg/dL Borderline high 150 - 199 mg/dL High 200 - 499 mg/dL Very High > or = 500 mg/dL WBC (Bld) [#/Vol] 7.9 10*3/uL 4.4-11.0 [facility] Work Phone: Blood erythrocytes count (nu mber/volume)on 12-22-2021 RBC (Bld) [#/Vol] 3.60 10*6/uL 4.6-6.2 [facility] Work Phone: Blood hemoglobin measurement (mass/volume)on 12-22-2021 Hemoglobin (Bld) [Mass/Vol] 10.9 g/dL 13.0-16.5 [facility] Work Phone: Blood lymphocytes/100 leukoc yteson 12-22-2021 Lymphocytes/100 WBC (Bld) 13.0 % 19-41 [facility] Work Phone: Blood monocytes/100 leukocyt eson 12-22-2021 Monocytes/100 WBC (Bld) 9.8 % 0-10 [facility] Work Phone: Blood platelet mean volumeon 12-22-2021 Platelet mean volume (Bld) [Entitic vol] 11.8 fL 6.2-12.0 [facility] Work Phone: Determination of erythrocyte mean corpuscular volume (MCV)on 12-22-2021 MCV (RBC) [Entitic vol] 86.7 fL 80-94 [facility] Work Phone: Hematocrit Auto (Bld) [Volum e fraction]on 12-22-2021 Hematocrit (Bld) [Volume fraction] 31.2 % 40-54 [facility] Work Phone: Laboratory - Chemistry and C hemistry - challengeon 12-22-2021 CO2 [Moles/Vol] 28.0 mmol/L 21.0-32.0 [facility] Work Phone: Urea nitrogen/Creatinine [Mass ratio] 7.7 mg/mg 10-20 [facility] Work Phone: Laboratory - Hematology and Cell countson 12-22-2021 Erythrocyte distribution width (RBC) [Entitic vol] 41.1 fL 35.1-43.9 [facility] Work Phone: Erythrocyte distribution width (RBC) [Ratio] 13.0 % 11.6-14.6 [facility] Work Phone: Immature granulocytes/100 WBC (Bld) 0.400 % 0.0-0.9 [facility] Work Phone: Comment on above: IG% - Immature Granu locytes (promyelocytes, myelocytes and metamyelocytes) > 1% indicates that a LEFT SHIFT is Present. MCH (RBC) [Entitic mass] 30.3 pg 27.0-32.0 [facility] Work Phone: Nucleated RBC/100 WBC (Bld) [Ratio] 0 % 0-5 [facility] Work Phone: MCHC Auto (RBC) [Mass/Vol]on 12-22-2021 MCHC (RBC) [Mass/Vol] 34.9 g/dL 32-36 [facility] Work Phone: No Panel Informationon 12-22 Estimated Creatinine Clearance Calc 38.56 ml/min [facility] Work Phone: Estimated GFR (MDRD) Amer 61 mL/min >60 [facility] Work Phone: Comment on above: GFR Calc Estimated GFR (MDRD) Non-Af Amer 50 mL/min >60 [facility] Work Phone: Comment on above: Non- GFR Calc Thyroid Stimulating Hormone (TSH) 3.25 uIU/mL 0.358-3.74 [facility] Work Phone: Platelets bldon 12-22-2021 Platelets (Bld) [#/Vol] 190 10*3/uL 150-450 [facility] Work Phone: Serum or plasma calcium sita urement (mass/volume)on 12-22-2021 Calcium [Mass/Vol] 8.3 mg/dL 8.5-10.1 [facility] Work Phone: Serum or plasma cholesterol in HDL measurement (mass/volume)on 12-22-2021 Cholesterol in HDL [Mass/Vol] 39 mg/dL >40 [facility] Work Phone: Comment on above: The drugs N-Acetylcy steine and Metamizole may falsely depress this assay. Reference Range HDL <40 mg/dL Low HDL Cholesterol HDL >or= 60 mg/dL High HDL Cholesterol Serum or plasma cholesterol in VLDL measurement (mass/volume)on 12-22-2021 Cholesterol in VLDL [Mass/Vol] 15 mg/dL 5-40 [facility] Work Phone: Serum or plasma cortisol osbaldo surement (mass/volume)on 12-22-2021 Cortisol [Mass/Vol] 11.00 ug/dL 3.44-22.45 [facility] Work Phone: Comment on above: Adult (AM) 5.27 - 22 .45 ug/dL Adult (PM) 3.44 - 16.76 ug/dLPlease note revised CORTISOL reference range effective 2019. Serum or plasma creatinine m easurement (mass/volume)on 12-22-2021 Creatinine [Mass/Vol] 1.42 mg/dL 0.70-1.30 [facility] Work Phone: Comment on above: The validity of the calculated GFR & GFRAA in patients over 70 years has not been determined. Clinical correlation is essential. Serum or plasma low density lipoprotein (LDL) cholesterol measurement (mass/volume)on 12-22-2021 Cholesterol in LDL [Mass/Vol] 31 mg/dL 0-130 [facility] Work Phone: Serum or plasma urea nitroge n measurement (mass/volume)on 12-22-2021 Urea nitrogen [Mass/Vol] 11 mg/dL 7-18 [facility] Work Phone: Thin prep Papanicolaou smear with manual screeningon 12-22-2021 Thin prep Papanicolaou smear with manual screening 8 5-15 [facility] Work Phone: Absolute lymphocyte counton 12-21-2021 Lymphocytes Auto (Unsp spec) [#/Vol] 0.91 10*3/uL 0.83-4.51 [facility] Work Phone: Basophil percentageon 2021 Basophil percentage 3.4 mg/dL 2.5-4.9 [facility] Work Phone: Basophils/100 WBC (Bld) 0.3 % 0-1 [facility] Work Phone: Chloride [Moles/Vol] 95 mmol/L 98-107 [facility] Work Phone: Eosinophils/100 WBC (Bld) 0.8 % 0-5 [facility] Work Phone: Glucose [Mass/Vol] 213 mg/dL 74-106 [facility] Work Phone: Comment on above: Glucose result great er than or equal to 200 mg/dLsuggests DIABETES MELLITUS per A.D.A. criteria. Neutrophils (Bld) [#/Vol] 6.9 10*3/uL 2.0-7.7 [facility] Work Phone: Neutrophils/100 WBC (Bld) 79.9 % 47-70 [facility] Work Phone: Potassium [Moles/Vol] 3.6 mmol/L 3.5-5.1 [facility] Work Phone: [phone] Sodium [Moles/Vol] 132 mmol/L 136-145 [facility] Work Phone: WBC (Bld) [#/Vol] 8.6 10*3/uL 4.4-11.0 [facility] Work Phone: Blood erythrocytes count (nu mber/volume)on 12-21-2021 RBC (Bld) [#/Vol] 4.17 10*6/uL 4.6-6.2 [facility] Work Phone: Blood hemoglobin measurement (mass/volume)on 12-21-2021 Hemoglobin (Bld) [Mass/Vol] 12.5 g/dL 13.0-16.5 [facility] Work Phone: Blood lymphocytes/100 leukoc yteson 12-21-2021 Lymphocytes/100 WBC (Bld) 10.6 % 19-41 [facility] Work Phone: Blood monocytes/100 leukocyt eson 12-21-2021 Monocytes/100 WBC (Bld) 7.9 % 0-10 [facility] Work Phone: Blood platelet mean volumeon 12-21-2021 Platelet mean volume (Bld) [Entitic vol] 11.5 fL 6.2-12.0 [facility] Work Phone: Determination of erythrocyte mean corpuscular volume (MCV)on 12-21-2021 MCV (RBC) [Entitic vol] 88.7 fL 80-94 [facility] Work Phone: Hematocrit Auto (Bld) [Volum e fraction]on 12-21-2021 Hematocrit (Bld) [Volume fraction] 37.0 % 40-54 [facility] Work Phone: INR in Blood by Coagulation assayon 12-21-2021 INR Coag (Bld) [Relative time] 1.4 {INR} [facility] Work Phone: Laboratory - Chemistry and C hemistry - challengeon 12-21-2021 Sodium (U) [Moles/Vol] 47 mmol/L Not Establ. [facility] Work Phone: Magnesium [Mass/Vol] 1.4 mg/dL 1.6-2.6 [facility] Work Phone: CO2 [Moles/Vol] 30.0 mmol/L 21.0-32.0 [facility] Work Phone: Natriuretic peptide B (Bld) [Mass/Vol] 334.0 pg/mL 0-100 [facility] Work Phone: Urea nitrogen/Creatinine [Mass ratio] 7.9 mg/mg 10-20 [facility] Work Phone: Laboratory - Coagulationon 0 12-21-2021 PT Coag (PPP) [Time] 16.9 s 11.7-14.9 [facility] Work Phone: Laboratory - Hematology and Cell countson 12-21-2021 Erythrocyte distribution width (RBC) [Entitic vol] 42.4 fL 35.1-43.9 [facility] Work Phone: Erythrocyte distribution width (RBC) [Ratio] 13.0 % 11.6-14.6 [facility] Work Phone: Immature granulocytes/100 WBC (Bld) 0.500 % 0.0-0.9 [facility] Work Phone: Comment on above: IG% - Immature Granu locytes (promyelocytes, myelocytes and metamyelocytes) > 1% indicates that a LEFT SHIFT is Present. MCH (RBC) [Entitic mass] 30.0 pg 27.0-32.0 [facility] Work Phone: Nucleated RBC/100 WBC (Bld) [Ratio] 0 % 0-5 [facility] Work Phone: MCHC Auto (RBC) [Mass/Vol]on 12-21-2021 MCHC (RBC) [Mass/Vol] 33.8 g/dL 32-36 [facility] Work Phone: No Panel Informationon 12-21 Troponin I High Sensitivity 23 pg/mL 3.0-78.0 [facility] Work Phone: Comment on above: Please Note: [place] t Units and Gender Specific Reference Ranges. For more information see Policy Stat Procedure [place] High Sensitivity Troponin (TNIH) and attachments. D-Dimer Quantitative (PE/DVT) 1.02 FEU/ug/m 0.27-0.49 [facility] Work Phone: Comment on above: D-Dimer ELEVATED (>0 .49): Additional studies and clinicalassessments are indicated to conclude diagnosis of:Deep Vein Thrombosis (DVT) or Pulmonary Embolism (PE)RESULTS CALLED TO DEBORAH PEACOCK RN 12/21/21 Shayla Kirkland.REPORT READ BACK BY SAME. Estimated Creatinine Clearance Calc 39.11 ml/min [facility] Work Phone: Estimated GFR (MDRD) Amer 62 mL/min >60 [facility] Work Phone: Comment on above: GFR Calc Estimated GFR (MDRD) Non-Af Amer 51 mL/min >60 [facility] Work Phone: Comment on above: Non- GFR Calc Troponin I High Sensitivity 20 pg/mL 3.0-78.0 [facility] Work Phone: Comment on above: Please Note: [place] t Units and Gender Specific Reference Ranges. For more information see Policy Stat Procedure [place] High Sensitivity Troponin (TNIH) and attachments. Platelets bldon 12-21-2021 Platelets (Bld) [#/Vol] 199 10*3/uL 150-450 [facility] Work Phone: Serum or plasma calcium sita urement (mass/volume)on 12-21-2021 Calcium [Mass/Vol] 8.4 mg/dL 8.5-10.1 [facility] Work Phone: Serum or plasma creatinine m easurement (mass/volume)on 12-21-2021 Creatinine [Mass/Vol] 1.40 mg/dL 0.70-1.30 [facility] Work Phone: Comment on above: The validity of the calculated GFR & GFRAA in patients over 70 years has not been determined. Clinical correlation is essential. Serum or plasma urea nitroge n measurement (mass/volume)on 12-21-2021 Urea nitrogen [Mass/Vol] 11 mg/dL 7-18 [facility] Work Phone: Thin prep Papanicolaou smear with manual screeningon 12-21-2021 Thin prep Papanicolaou smear with manual screening 285 mOsm/KG 280-301 [facility] Work Phone: Thin prep Papanicolaou smear with manual screening 7 5-15 [facility] Work Phone: Urine creatinine measurement (mass/volume)on 12-21-2021 Creatinine (U) [Mass/Vol] 31.30 mg/dL NO RANGE EST. [facility] Work Phone: Urine osmolality measurement on 12-21-2021 Osmolality (U) [Osmolality] 261 mOsm/KG >50 [facility] Work Phone: Comment on above: Normal Urine Referen ce Ranges Random: 50 - 1200 mOsm/kg H20 depending on fluid intake Random: >850 mOsm/kg after 12 hour fluid restriction 24 hour: ~300 - 900 mOsm/kg H2O Absolute lymphocyte counton 12-19-2021 Lymphocytes Auto (Unsp spec) [#/Vol] 0.88 10*3/uL 0.83-4.51 [facility] Work Phone: Basophil percentageon 2021 Basophils/100 WBC (Bld) 0.3 % 0-1 [facility] Work Phone: Chloride [Moles/Vol] 99 mmol/L 98-107 [facility]: Eosinophils/100 WBC (Bld) 2.3 % 0-5 [facility] Work Phone: Glucose [Mass/Vol] 241 mg/dL 74-106 [facility] Work Phone: Comment on above: Glucose result great er than or equal to 200 mg/dLsuggests DIABETES MELLITUS per A.D.A. criteria. Neutrophils (Bld) [#/Vol] 6.1 10*3/uL 2.0-7.7 [facility] Work Phone: [phone] Neutrophils/100 WBC (Bld) 77.1 % 47-70 [facility] Work Phone: [phone] Potassium [Moles/Vol] 3.3 mmol/L 3.5-5.1 [facility] Work Phone: Sodium [Moles/Vol] 132 mmol/L 136-145 [facility] Work Phone: WBC (Bld) [#/Vol] 7.9 10*3/uL 4.4-11.0 [facility] Work Phone: Blood erythrocytes count (nu mber/volume)on 12-19-2021 RBC (Bld) [#/Vol] 3.92 10*6/uL 4.6-6.2 [facility] Work Phone: Blood hemoglobin measurement (mass/volume)on 12-19-2021 Hemoglobin (Bld) [Mass/Vol] 11.9 g/dL 13.0-16.5 [facility] Work Phone: [phone] Blood lymphocytes/100 leukoc yteson 12-19-2021 Lymphocytes/100 WBC (Bld) 11.2 % 19-41 [facility] Work Phone: Blood monocytes/100 leukocyt eson 12-19-2021 Monocytes/100 WBC (Bld) 8.6 % 0-10 [facility] Work Phone: Blood platelet mean volumeon 12-19-2021 Platelet mean volume (Bld) [Entitic vol] 10.9 fL 6.2-12.0 [facility] Work Phone: Determination of erythrocyte mean corpuscular volume (MCV)on 12-19-2021 MCV (RBC) [Entitic vol] 87.8 fL 80-94 [facility] Work Phone: Hematocrit Auto (Bld) [Volum e fraction]on 12-19-2021 Hematocrit (Bld) [Volume fraction] 34.4 % 40-54 [facility] Work Phone: Laboratory - Chemistry and C hemistry - challengeon 12-19-2021 CO2 [Moles/Vol] 29.0 mmol/L 21.0-32.0 [facility] Work Phone: Natriuretic peptide B (Bld) [Mass/Vol] 310.7 pg/mL 0-100 [facility] Work Phone: Urea nitrogen/Creatinine [Mass ratio] 7.7 mg/mg 10-20 [facility] Work Phone: Laboratory - Hematology and Cell countson 12-19-2021 Erythrocyte distribution width (RBC) [Entitic vol] 42.5 fL 35.1-43.9 [facility] Work Phone: Erythrocyte distribution width (RBC) [Ratio] 13.2 % 11.6-14.6 [facility] Work Phone: Immature granulocytes/100 WBC (Bld) 0.500 % 0.0-0.9 [facility] Work Phone: Comment on above: IG% - Immature Granu locytes (promyelocytes, myelocytes and metamyelocytes) > 1% indicates that a LEFT SHIFT is Present. MCH (RBC) [Entitic mass] 30.4 pg 27.0-32.0 [facility] Work Phone: Nucleated RBC/100 WBC (Bld) [Ratio] 0 % 0-5 [facility] Work Phone: MCHC Auto (RBC) [Mass/Vol]on 12-19-2021 MCHC (RBC) [Mass/Vol] 34.6 g/dL 32-36 [facility] Work Phone: No Panel Informationon 12-19 Estimated Creatinine Clearance Calc 38.56 ml/min [facility] Work Phone: Estimated GFR (MDRD) Amer 61 mL/min >60 [facility] Work Phone: Comment on above: GFR Calc Estimated GFR (MDRD) Non-Af Amer 50 mL/min >60 [facility] Work Phone: Comment on above: Non- GFR Calc Troponin I High Sensitivity 22 pg/mL 3.0-78.0 [facility] Work Phone: Comment on above: Please Note: [place] t Units and Gender Specific Reference Ranges. For more information see Policy Stat Procedure [place] High Sensitivity Troponin (TNIH) and attachments. Platelets bldon 12-19-2021 Platelets (Bld) [#/Vol] 189 10*3/uL 150-450 [facility] Work Phone: Serum or plasma calcium sita urement (mass/volume)on 12-19-2021 Calcium [Mass/Vol] 8.4 mg/dL 8.5-10.1 [facility] Work Phone: Serum or plasma creatinine m easurement (mass/volume)on 12-19-2021 Creatinine [Mass/Vol] 1.42 mg/dL 0.70-1.30 [facility] Work Phone: Comment on above: The validity of the calculated GFR & GFRAA in patients over 70 years has not been determined. Clinical correlation is essential. Serum or plasma urea nitroge n measurement (mass/volume)on 12-19-2021 Urea nitrogen [Mass/Vol] 11 mg/dL 7-18 [facility] Work Phone: Thin prep Papanicolaou smear with manual screeningon 12-19-2021 Thin prep Papanicolaou smear with manual screening 4 5-15 [facility] Work Phone: Basophil percentageon 2021 Bilirubin [Mass/Vol] 2.10 mg/dL 0.20-1.00 [facility] Work Phone: Comment on above: For patients on eltr ombopag therapy, use of Dimension [place] TBIL is not recommended. Chloride [Moles/Vol] 95 mmol/L 98-107 [facility] Work Phone: Glucose [Mass/Vol] 140 mg/dL 74-106 [facility] Work Phone: Comment on above: Fasting Glucose resu lt greater than or equal to 126 mg/dL suggests DIABETES MELLITUS per A.D.A. criteria. Potassium [Moles/Vol] 3.7 mmol/L 3.5-5.1 [facility] Work Phone: Protein [Mass/Vol] 6.3 g/dL 6.4-8.2 [facility] Work Phone: Sodium [Moles/Vol] 130 mmol/L 136-145 [facility] Work Phone: Laboratory - Chemistry and C hemistry - challengeon 11-02-2021 ALP [Catalytic activity/Vol] 101 U/L 45-117 [facility] Work Phone: ALT [Catalytic activity/Vol] 20 U/L 16-61 [facility] Work Phone: CO2 [Moles/Vol] 29.0 mmol/L 21.0-32.0 [facility] Work Phone: Globulin (S) [Mass/Vol] 3.1 g/dL 2.2-4.2 [facility] Work Phone: [phone] Sodium (U) [Moles/Vol] 50 mmol/L Not Establ. [facility] Work Phone: Urea nitrogen/Creatinine [Mass ratio] 6.5 mg/mg 10-20 [facility] Work Phone: No Panel Informationon 11-02 Estimated GFR (MDRD) Amer 63 mL/min >60 [facility] Work Phone: Comment on above: GFR Calc Estimated GFR (MDRD) Non-Af Amer 52 mL/min >60 [facility] Work Phone: Comment on above: Non- GFR Calc Serum or plasma albumin sita urement (mass/volume)on 11-02-2021 Albumin [Mass/Vol] 3.2 g/dL 3.2-5.0 [facility] Work Phone: Serum or plasma albumin/glob ulin mass ratioon 11-02-2021 Albumin/Globulin [Mass ratio] 1.0 {ratio} 0.9-2.4 [facility] Work Phone: Serum or plasma calcium sita urement (mass/volume)on 11-02-2021 Calcium [Mass/Vol] 8.6 mg/dL 8.5-10.1 [facility] Work Phone: Serum or plasma creatinine m easurement (mass/volume)on 11-02-2021 Creatinine [Mass/Vol] 1.38 mg/dL 0.70-1.30 [facility] Work Phone: Comment on above: The validity of the calculated GFR & GFRAA in patients over 70 years has not been determined. Clinical correlation is essential. Serum or plasma urea nitroge n measurement (mass/volume)on 11-02-2021 Urea nitrogen [Mass/Vol] 9 mg/dL 7-18 [facility] Work Phone: Thin prep Papanicolaou smear with manual screeningon 11-02-2021 Thin prep Papanicolaou smear with manual screening 17 U/L 15-37 [facility] Work Phone: Thin prep Papanicolaou smear with manual screening 6 5-15 [facility] Work Phone: Absolute lymphocyte counton 10-26-2021 Lymphocytes Auto (Unsp spec) [#/Vol] 0.94 10*3/uL 0.83-4.51 [facility] Work Phone: Basophil percentageon 2021 Basophil percentage 3.0 mg/dL 2.5-4.[address] [facility]: [phone] Chloride [Moles/Vol] 92 mmol/L 98-107 [facility] Work [facility]: [phone] Glucose [Mass/Vol] 112 mg/dL 74-106 [facility] Work Phone: Comment on above: Fasting Glucose resu lt from 100 to 125 mg/dL suggests IMPAIRED HOMEOSTASIS per A.D.A. criteria. Potassium [Moles/Vol] 3.5 mmol/L 3.5-5.1 [facility] Work Phone: [phone] Sodium [Moles/Vol] 127 mmol/L 136-145 [facility] Work Phone: Basophils/100 WBC (Bld) 0.1 % 0-1 [facility] Work Phone: Eosinophils/100 WBC (Bld) 0.6 % 0-5 [facility] Work Phone: [phone] Neutrophils (Bld) [#/Vol] 7.8 10*3/uL 2.0-7.7 [facility] Work Phone: [phone] Neutrophils/100 WBC (Bld) 80.0 % 47-70 [facility] Work Phone: [phone] WBC (Bld) [#/Vol] 9.8 10*3/uL 4.4-11.0 [facility] Work Phone: Blood erythrocytes count (nu mber/volume)on 10-26-2021 RBC (Bld) [#/Vol] 3.45 10*6/uL 4.6-6.2 [facility] Work Phone: [phone] Blood hemoglobin measurement (mass/volume)on 10-26-2021 Hemoglobin (Bld) [Mass/Vol] 10.9 g/dL 13.0-16.5 [facility] Work Phone: [phone] Blood lymphocytes/100 leukoc yteson 10-26-2021 Lymphocytes/100 WBC (Bld) 9.6 % 19-41 [facility] Work Phone: [phone] Blood monocytes/100 leukocyt eson 10-26-2021 Monocytes/100 WBC (Bld) 9.3 % 0-10 [facility] Work Phone: Blood platelet mean volumeon 10-26-2021 Platelet mean volume (Bld) [Entitic vol] 11.0 fL 6.2-12.0 [facility] Work Phone: Determination of erythrocyte mean corpuscular volume (MCV)on 10-26-2021 MCV (RBC) [Entitic vol] 87.0 fL 80-94 [facility] Work Phone: Glucose Glucometer (BldC) [M ass/Vol]on 10-26-2021 Glucose [Mass/Vol] 139 mg/dL 74-106 [facility] Work Phone: Comment on above: MANAGEMENT OF PATIEN T CARE PER NURSING PROTOCOL Hematocrit Auto (Bld) [Volum e fraction]on 10-26-2021 Hematocrit (Bld) [Volume fraction] 30.0 % 40-54 [facility] Work Phone: Laboratory - Chemistry and C hemistry - challengeon 10-26-2021 CO2 [Moles/Vol] 28.0 mmol/L 21.0-32.0 [facility] Work Phone: Urea nitrogen/Creatinine [Mass ratio] 7.5 mg/mg 10-20 [facility] Work Phone: Magnesium [Mass/Vol] 1.3 mg/dL 1.6-2.6 [facility] Work Phone: Laboratory - Hematology and Cell countson 10-26-2021 Erythrocyte distribution width (RBC) [Entitic vol] 38.5 fL 35.1-43.9 [facility] Work Phone: Erythrocyte distribution width (RBC) [Ratio] 11.9 % 11.6-14.6 [facility] Work Phone: Immature granulocytes/100 WBC (Bld) 0.400 % 0.0-0.9 [facility] Work Phone: Comment on above: IG% - Immature Granu locytes (promyelocytes, myelocytes and metamyelocytes) > 1% indicates that a LEFT SHIFT is Present. MCH (RBC) [Entitic mass] 31.6 pg 27.0-32.0 [facility] Work Phone: Nucleated RBC/100 WBC (Bld) [Ratio] 0 % 0-5 [facility] Work Phone: MCHC Auto (RBC) [Mass/Vol]on 10-26-2021 MCHC (RBC) [Mass/Vol] 36.3 g/dL 32-36 [facility] Work Phone: No Panel Informationon 10-26 Estimated Creatinine Clearance Calc 51.65 ml/min [facility] Work Phone: Estimated GFR (MDRD) Amer 85 mL/min >60 [facility] Work Phone: Comment on above: GFR Calc Estimated GFR (MDRD) Non-Af Amer 70 mL/min >60 [facility] Work Phone: Comment on above: Non- GFR Calc Vitamin D 25-Hydroxy 38.0 ng/mL [facility] Work Phone: Comment on above: Vitamin D 25(OH) Sta tus Range Deficiency <20 ng/mL (50nmol/L) Insufficiency 20 - 30 ng/mL (50 - 75 nmol/L) Sufficiency 30 - 100 ng/mL (75 - 250 nmol/L) Toxicity >100 ng/mL (>250 nmol/L) Platelets bldon 10-26-2021 Platelets (Bld) [#/Vol] 204 10*3/uL 150-450 [facility] Work Phone: Serum or plasma calcium sita urement (mass/volume)on 10-26-2021 Calcium [Mass/Vol] 7.7 mg/dL 8.5-10.1 [facility] Work Phone: Serum or plasma cortisol osbaldo surement (mass/volume)on 10-26-2021 Cortisol [Mass/Vol] 10.60 ug/dL 3.44-22.45 [facility] Work Phone: Comment on above: Adult (AM) 5.27 - 22 .45 ug/dL Adult (PM) 3.44 - 16.76 ug/dLPlease note revised CORTISOL reference range effective 2019. Serum or plasma creatinine m easurement (mass/volume)on 10-26-2021 Creatinine [Mass/Vol] 1.06 mg/dL 0.70-1.30 [facility] Work Phone: Comment on above: The validity of the calculated GFR & GFRAA in patients over 70 years has not been determined. Clinical correlation is essential. Serum or plasma urea nitroge n measurement (mass/volume)on 10-26-2021 Urea nitrogen [Mass/Vol] 8 mg/dL 7-18 [facility] Work Phone: Thin prep Papanicolaou smear with manual screeningon 10-26-2021 Thin prep Papanicolaou smear with manual screening 7 5-15 [facility] Work Phone: Whole blood hemoglobin A1c/t otal hemoglobin ratio (mass fraction)on 10-26-2021 HbA1c (Bld) [Mass fraction] 5.9 % 3.8-5.6 [facility] Work Phone: Comment on above: Normal < 5.7 % Predi abetic 5.7 - 6.4 % Diabetic >or= 6.5 % Please note range changes. Absolute lymphocyte counton 10-25-2021 Lymphocytes Auto (Unsp spec) [#/Vol] 0.73 10*3/uL 0.83-4.51 [facility] Work Phone: Basophil percentageon 2021 Basophil percentage 0 SEEN /hpf 0-5 [facility] Work Phone: Basophils/100 WBC (Bld) 0.3 % 0-1 [facility] Work Phone: Bilirubin [Mass/Vol] 1.60 mg/dL 0.20-1.00 [facility] Work Phone: Comment on above: For patients on eltr ombopag therapy, use of Dimension Ring[place] TBIL is not recommended. Chloride [Moles/Vol] 86 mmol/L 98-107 [facility]: Eosinophils/100 WBC (Bld) 0.7 % 0-5 [facility] Work Phone: Glucose [Mass/Vol] 214 mg/dL 74-106 [facility] Work Phone: [phone] Comment on above: Glucose result great er than or equal to 200 mg/dLsuggests DIABETES MELLITUS per A.D.A. criteria. Neutrophils (Bld) [#/Vol] 7.3 10*3/uL 2.0-7.7 [facility] Work Phone: Neutrophils/100 WBC (Bld) 80.3 % 47-70 [facility] Work Phone: Potassium [Moles/Vol] 3.1 mmol/L 3.5-5.1 [facility]: Protein [Mass/Vol] 6.5 g/dL 6.4-8.2 [facility] Work Phone: Sodium [Moles/Vol] 124 mmol/L 136-145 [facility] Work Phone: WBC (Bld) [#/Vol] 9.1 10*3/uL 4.4-11.0 [facility] Work Phone: Bilirubin Test strip Ql (U)o n 10-25-2021 Bilirubin Ql (U) Negative Negative [facility] Work Phone: Blood erythrocytes count (nu mber/volume)on 10-25-2021 RBC (Bld) [#/Vol] 3.79 10*6/uL 4.6-6.2 [facility] Work Phone: Blood hemoglobin measurement (mass/volume)on 10-25-2021 Hemoglobin (Bld) [Mass/Vol] 11.9 g/dL 13.0-16.5 [facility] Work Phone: Blood lymphocytes/100 leukoc yteson 10-25-2021 Lymphocytes/100 WBC (Bld) 8.0 % 19-41 [facility] Work Phone: Blood monocytes/100 leukocyt eson 10-25-2021 Monocytes/100 WBC (Bld) 10.1 % 0-10 [facility] Work Phone: Blood platelet mean volumeon 10-25-2021 Platelet mean volume (Bld) [Entitic vol] 10.6 fL 6.2-12.0 [facility] Work Phone: Determination of erythrocyte mean corpuscular volume (MCV)on 10-25-2021 MCV (RBC) [Entitic vol] 87.9 fL 80-94 [facility] Work Phone: Hematocrit Auto (Bld) [Volum e fraction]on 10-25-2021 Hematocrit (Bld) [Volume fraction] 33.3 % 40-54 [facility] Work Phone: Ketones Test strip Ql (U)on 10-25-2021 Ketones Ql (U) Negative Negative [facility] Work Phone: Laboratory - Chemistry and C hemistry - challengeon 10-25-2021 Sodium (U) [Moles/Vol] 52 mmol/L Not Establ. [facility] Work Phone: ALP [Catalytic activity/Vol] 103 U/L 45-117 [facility] Work Phone: ALT [Catalytic activity/Vol] 18 U/L 16-61 [facility] Work Phone: CO2 [Moles/Vol] 29.0 mmol/L 21.0-32.0 [facility] Work Phone: Globulin (S) [Mass/Vol] 3.3 g/dL 2.2-4.2 [facility] Work Phone: Urea nitrogen/Creatinine [Mass ratio] 7.2 mg/mg 10-20 [facility] Work Phone: Laboratory - Hematology and Cell countson 10-25-2021 Erythrocyte distribution width (RBC) [Entitic vol] 39.2 fL 35.1-43.9 [facility] Work Phone: Erythrocyte distribution width (RBC) [Ratio] 12.1 % 11.6-14.6 [facility] Work Phone: Immature granulocytes/100 WBC (Bld) 0.600 % 0.0-0.9 [facility] Work Phone: Comment on above: IG% - Immature Granu locytes (promyelocytes, myelocytes and metamyelocytes) > 1% indicates that a LEFT SHIFT is Present. MCH (RBC) [Entitic mass] 31.4 pg 27.0-32.0 [facility] Work Phone: Nucleated RBC/100 WBC (Bld) [Ratio] 0 % 0-5 [facility] Work Phone: MCHC Auto (RBC) [Mass/Vol]on 10-25-2021 MCHC (RBC) [Mass/Vol] 35.7 g/dL 32-36 [facility] Work Phone: Mucus LM Ql (Urine sed)on Mucus Ql (Urine sed) 0 SEEN /hpf [facility] Work Phone: Nitrite Test strip Ql (U)on 10-25-2021 Nitrite Ql (U) Negative Negative [facility] Work Phone: No Panel Informationon 10-25 Ethyl Alcohol Level 6.0 mg/dL [facility] Work Phone: Comment on above: The serum:whole bloo d ethanol ratio is approximately 1.14and varies slightly with hematocrit. Medical Alcohol reference interval and critical value innon-tolerant individuals; 50 - 100 Impairment 100 Intoxication 100 - 250 Severe Poisoning 250 - 400 Deep/possible fatal coma Estimated Creatinine Clearance Calc 38.42 ml/min [facility] Work Phone: Estimated GFR (MDRD) Amer 63 mL/min >60 [facility] Work Phone: Comment on above: GFR Calc Estimated GFR (MDRD) Non-Af Amer 52 mL/min >60 [facility] Work Phone: Comment on above: Non- GFR Calc Troponin I High Sensitivity 12 pg/mL 3.0-78.0 [facility] Work Phone: Comment on above: Please Note: [place] t Units and Gender Specific Reference Ranges. For more information see Policy Stat Procedure Ringold High Sensitivity Troponin (TNIH) and attachments. Platelets bldon 10-25-2021 Platelets (Bld) [#/Vol] 221 10*3/uL 150-450 [facility] Work Phone: Protein Test strip Ql (U)on 10-25-2021 Protein Ql (U) Negative Negative [facility] Work Phone: Serum or plasma albumin sita urement (mass/volume)on 10-25-2021 Albumin [Mass/Vol] 3.2 g/dL 3.2-5.0 [facility] Work Phone: Serum or plasma albumin/glob ulin mass ratioon 10-25-2021 Albumin/Globulin [Mass ratio] 1.0 {ratio} 0.9-2.4 [facility] Work Phone: Serum or plasma calcium sita urement (mass/volume)on 10-25-2021 Calcium [Mass/Vol] 7.9 mg/dL 8.5-10.1 [facility] Work Phone: Serum or plasma creatinine m easurement (mass/volume)on 10-25-2021 Creatinine [Mass/Vol] 1.38 mg/dL 0.70-1.30 [facility] Work Phone: Comment on above: The validity of the calculated GFR & GFRAA in patients over 70 years has not been determined. Clinical correlation is essential. Serum or plasma urea nitroge n measurement (mass/volume)on 10-25-2021 Urea nitrogen [Mass/Vol] 10 mg/dL 7-18 [facility] Work Phone: Serum or plasma uric acid me asurement (mass/volume)on 10-25-2021 Urate [Mass/Vol] 5.8 mg/dL 3.5-7.2 [facility] Work Phone: Comment on above: The drugs N-Acetylcy steine and Metamizole may falsely depress this assay. Squamous epithelial cells de tection in urine sediment by light microscopyon 10-25-2021 Epithelial cells.squamous LM Ql (Urine sed) 0 SEEN /hpf 0-5 [facility] Work Phone: Thin prep Papanicolaou smear with manual screeningon 10-25-2021 Thin prep Papanicolaou smear with manual screening 260 mOsm/KG 280-301 [facility] Work Phone: Thin prep Papanicolaou smear with manual screening 14 U/L 15-37 [facility] Work Phone: Thin prep Papanicolaou smear with manual screening 9 5-15 [facility] Work Phone: Urine blood detectionon RBC Ql (U) Negative Negative [facility] Work Phone: RBC Ql (U) 0 SEEN /hpf 0-5 [facility] Work Phone: Urine clarityon 10-25-2021 Clarity (U) Clear Clear [facility] Work Phone: Urine color determinationon 10-25-2021 Color (U) Yellow Yellow [facility] Work Phone: Urine glucose detectionon Glucose Ql (U) Normal mg/dl Normal [facility] Work Phone: Urine leukocyte esterase det ection by dipstickon 10-25-2021 Leukocyte esterase Test strip Ql (U) Negative Negative [facility] Work Phone: Urine osmolality measurement on 10-25-2021 Osmolality (U) [Osmolality] 314 mOsm/KG >50 [facility] Work Phone: Comment on above: Normal Urine Referen ce Ranges Random: 50 - 1200 mOsm/kg H20 depending on fluid intake Random: >850 mOsm/kg after 12 hour fluid restriction 24 hour: ~300 - 900 mOsm/kg H2O Urine pHon 10-25-2021 pH (U) 7.0 [pH] 5.0 - 8.0 [facility] Work Phone: Urine sediment bacteria coun t by microscopy (number/high power field)on 10-25-2021 Bacteria LM.HPF (Urine sed) [#/Area] 0 /[HPF] None Seen [facility] Work Phone: Urine specific gravity measu rementon 10-25-2021 Specific gravity (U) [Rel density] 1.010 1.002-1.030 [facility] Work Phone: Urobilinogen Auto test strip Ql (U)on 10-25-2021 Urobilinogen Ql (U) Normal mg/dl Normal [facility] Work Phone: Absolute lymphocyte counton 10-18-2021 Lymphocytes Auto (Unsp spec) [#/Vol] 0.65 10*3/uL 0.83-4.51 [facility] Work Phone: Basophil percentageon 2021 Basophil percentage 3.0 mg/dL 2.5-4.9 [facility] Work Phone: Basophils/100 WBC (Bld) 0.3 % 0-1 [facility] Work Phone: Bilirubin [Mass/Vol] 2.10 mg/dL 0.20-1.00 [facility] Work Phone: Comment on above: For patients on eltr ombopag therapy, use of Dimension Ring[place] TBIL is not recommended. Chloride [Moles/Vol] 89 mmol/L 98-107 [facility] Work Phone: Eosinophils/100 WBC (Bld) 0.5 % 0-5 [facility] Work Phone: Glucose [Mass/Vol] 131 mg/dL 74-106 [facility] Work Phone: Comment on above: Fasting Glucose resu lt greater than or equal to 126 mg/dL suggests DIABETES MELLITUS per A.D.A. criteria. Neutrophils (Bld) [#/Vol] 5.0 10*3/uL 2.0-7.7 [facility] Work Phone: Neutrophils/100 WBC (Bld) 77.1 % 47-70 [facility] Work Phone: Potassium [Moles/Vol] 3.7 mmol/L 3.5-5.1 [facility] Work Phone: Protein [Mass/Vol] 5.9 g/dL 6.4-8.2 [facility] Work Phone: Sodium [Moles/Vol] 123 mmol/L 136-145 [facility] Work Phone: WBC (Bld) [#/Vol] 6.4 10*3/uL 4.4-11.0 [facility] Work Phone: Blood erythrocytes count (nu mber/volume)on 10-18-2021 RBC (Bld) [#/Vol] 3.61 10*6/uL 4.6-6.[address] [facility] Work Phone: Blood hemoglobin measurement (mass/volume)on 10-18-2021 Hemoglobin (Bld) [Mass/Vol] 11.3 g/dL 13.0-16.5 [facility] Work Phone: Blood lymphocytes/100 leukoc yteson 10-18-2021 Lymphocytes/100 WBC (Bld) 10.1 % 19-41 [facility] Work Phone: Blood monocytes/100 leukocyt eson 10-18-2021 Monocytes/100 WBC (Bld) 11.5 % 0-10 [facility] Work Phone: Blood platelet mean volumeon 10-18-2021 Platelet mean volume (Bld) [Entitic vol] 11.0 fL 6.2-12.0 [facility] Work Phone: Determination of erythrocyte mean corpuscular volume (MCV)on 10-18-2021 MCV (RBC) [Entitic vol] 88.1 fL 80-94 [facility] Work Phone: Hematocrit Auto (Bld) [Volum e fraction]on 10-18-2021 Hematocrit (Bld) [Volume fraction] 31.8 % 40-54 [facility] Work Phone: Laboratory - Chemistry and C hemistry - challengeon 10-18-2021 ALP [Catalytic activity/Vol] 94 U/L 45-117 [facility] Work Phone: ALT [Catalytic activity/Vol] 18 U/L 16-61 [facility] Work Phone: CO2 [Moles/Vol] 27.0 mmol/L 21.0-32.0 [facility] Work Phone: Globulin (S) [Mass/Vol] 3.0 g/dL 2.2-4.2 [facility] Work Phone: Natriuretic peptide B (Bld) [Mass/Vol] 304.2 pg/mL 0-100 [facility] Work Phone: Urea nitrogen/Creatinine [Mass ratio] 6.8 mg/mg 10-20 [facility] Work Phone: Laboratory - Hematology and Cell countson 10-18-2021 Erythrocyte distribution width (RBC) [Entitic vol] 40.5 fL 35.1-43.9 [facility] Work Phone: Erythrocyte distribution width (RBC) [Ratio] 12.4 % 11.6-14.6 [facility] Work Phone: Immature granulocytes/100 WBC (Bld) 0.500 % 0.0-0.9 [facility] Work Phone: Comment on above: IG% - Immature Granu locytes (promyelocytes, myelocytes and metamyelocytes) > 1% indicates that a LEFT SHIFT is Present. MCH (RBC) [Entitic mass] 31.3 pg 27.0-32.0 [facility] Work Phone: Nucleated RBC/100 WBC (Bld) [Ratio] 0 % 0-5 [facility] Work Phone: MCHC Auto (RBC) [Mass/Vol]on 06-01-2022 MCHC (RBC) [Mass/Vol] 35.5 g/dL 32-36 [facility] Work Phone: No Panel Informationon 10-18 Estimated GFR (MDRD) Amer 76 mL/min >60 [facility] Work Phone: Comment on above: GFR Calc Estimated GFR (MDRD) Non-Af Amer 63 mL/min >60 [facility] Work Phone: Comment on above: Non- GFR Calc Platelets bldon 10-18-2021 Platelets (Bld) [#/Vol] 184 10*3/uL 150-450 [facility] Work Phone: Serum or plasma albumin sita urement (mass/volume)on 10-18-2021 Albumin [Mass/Vol] 2.9 g/dL 3.2-5.0 [facility] Work Phone: Serum or plasma albumin/glob ulin mass ratioon 10-18-2021 Albumin/Globulin [Mass ratio] 1.0 {ratio} 0.9-2.4 [facility] Work Phone: Serum or plasma calcium sita urement (mass/volume)on 10-18-2021 Calcium [Mass/Vol] 8.1 mg/dL 8.5-10.1 [facility] Work Phone: Serum or plasma creatinine m easurement (mass/volume)on 10-18-2021 Creatinine [Mass/Vol] 1.17 mg/dL 0.70-1.30 [facility] Work Phone: Comment on above: The validity of the calculated GFR & GFRAA in patients over 70 years has not been determined. Clinical correlation is essential. Serum or plasma urea nitroge n measurement (mass/volume)on 10-18-2021 Urea nitrogen [Mass/Vol] 8 mg/dL 7-18 [facility] Work Phone: Thin prep Papanicolaou smear with manual screeningon 10-18-2021 Thin prep Papanicolaou smear with manual screening 16 U/L 15-37 [facility] Work Phone: Thin prep Papanicolaou smear with manual screening 7 5-15 [facility] Work Phone: Absolute lymphocyte counton 07-13-2021 Lymphocytes Auto (Unsp spec) [#/Vol] 1.15 10*3/uL 0.83-4.51 [facility] Work Phone: Basophil percentageon 2021 Basophils/100 WBC (Bld) 0.5 % 0-1 [facility] Work Phone: Bilirubin [Mass/Vol] 1.80 mg/dL 0.20-1.00 [facility] Work Phone: Comment on above: For patients on eltr ombopag therapy, use of Dimension Ring[place] TBIL is not recommended. Chloride [Moles/Vol] 99 mmol/L 98-107 [facility] Work Phone: Eosinophils/100 WBC (Bld) 2.0 % 0-5 [facility] Work Phone: Glucose [Mass/Vol] 108 mg/dL 74-106 [facility] Work Phone: Comment on above: Fasting Glucose resu lt from 100 to 125 mg/dL suggests IMPAIRED HOMEOSTASIS per A.D.A. criteria. Neutrophils (Bld) [#/Vol] 5.9 10*3/uL 2.0-7.7 [facility] Work Phone: Neutrophils/100 WBC (Bld) 73.4 % 47-70 [facility] Work Phone: Potassium [Moles/Vol] 3.4 mmol/L 3.5-5.1 [facility] Work Phone: Protein [Mass/Vol] 6.2 g/dL 6.4-8.2 [facility] Work Phone: Sodium [Moles/Vol] 134 mmol/L 136-145 [facility] Work Phone: WBC (Bld) [#/Vol] 8.1 10*3/uL 4.4-11.0 [facility] Work Phone: Blood erythrocytes count (nu mber/volume)on 07-13-2021 RBC (Bld) [#/Vol] 4.12 10*6/uL 4.6-6.2 [facility] Work Phone: Blood hemoglobin measurement (mass/volume)on 07-13-2021 Hemoglobin (Bld) [Mass/Vol] 13.5 g/dL 13.0-16.5 [facility] Work Phone: Blood lymphocytes/100 leukoc yteson 07-13-2021 Lymphocytes/100 WBC (Bld) 14.2 % 19-41 [facility] Work Phone: Blood monocytes/100 leukocyt eson 07-13-2021 Monocytes/100 WBC (Bld) 8.9 % 0-10 [facility] Work Phone: Blood platelet mean volumeon 07-13-2021 Platelet mean volume (Bld) [Entitic vol] 11.5 fL 6.2-12.0 [facility] Work Phone: Determination of erythrocyte mean corpuscular volume (MCV)on 07-13-2021 MCV (RBC) [Entitic vol] 90.3 fL 80-94 [facility] Work Phone: Hematocrit Auto (Bld) [Volum e fraction]on 07-13-2021 Hematocrit (Bld) [Volume fraction] 37.2 % 40-54 [facility] Work Phone: Laboratory - Chemistry and C hemistry - challengeon 07-13-2021 ALP [Catalytic activity/Vol] 111 U/L 45-117 [facility] Work Phone: ALT [Catalytic activity/Vol] 19 U/L 16-61 [facility] Work Phone: CO2 [Moles/Vol] 28.0 mmol/L 21.0-32.0 [facility] Work Phone: [phone] Globulin (S) [Mass/Vol] 3.2 g/dL 2.2-4.2 [facility] Work Phone: Urea nitrogen/Creatinine [Mass ratio] 5.3 mg/mg 10-20 [facility] Work Phone: Laboratory - Hematology and Cell countson 07-13-2021 Erythrocyte distribution width (RBC) [Entitic vol] 42.7 fL 35.1-43.9 [facility] Work Phone: Erythrocyte distribution width (RBC) [Ratio] 13.1 % 11.6-14.6 [facility] Work Phone: Immature granulocytes/100 WBC (Bld) 1.000 % 0.0-0.9 [facility] Work Phone: Comment on above: IG% - Immature Granu locytes (promyelocytes, myelocytes and metamyelocytes) > 1% indicates that a LEFT SHIFT is Present. MCH (RBC) [Entitic mass] 32.8 pg 27.0-32.0 [facility] Work Phone: Nucleated RBC/100 WBC (Bld) [Ratio] 0 % 0-5 [facility] Work Phone: MCHC Auto (RBC) [Mass/Vol]on 07-13-2021 MCHC (RBC) [Mass/Vol] 36.3 g/dL 32-36 [facility] Work Phone: No Panel Informationon 07-13 Estimated GFR (MDRD) Amer 67 mL/min >60 [facility] Work Phone: Comment on above: GFR Calc Estimated GFR (MDRD) Non-Af Amer 55 mL/min >60 [facility] Work Phone: Comment on above: Non- GFR Calc Thyroid Stimulating Hormone (TSH) 3.19 uIU/mL 0.358-3.74 [facility] Work Phone: Vitamin D 25-Hydroxy 13.3 ng/mL [facility] Work Phone: Comment on above: Vitamin D 25(OH) Sta tus Range Deficiency <20 ng/mL (50nmol/L) Insufficiency 20 - 30 ng/mL (50 - 75 nmol/L) Sufficiency 30 - 100 ng/mL (75 - 250 nmol/L) Toxicity >100 ng/mL (>250 nmol/L) Platelets bldon 07-13-2021 Platelets (Bld) [#/Vol] 216 10*3/uL 150-450 [facility] Work Phone: Serum or plasma albumin sita urement (mass/volume)on 07-13-2021 Albumin [Mass/Vol] 3.0 g/dL 3.2-5.0 [facility] Work Phone: Serum or plasma albumin/glob ulin mass ratioon 07-13-2021 Albumin/Globulin [Mass ratio] 0.9 {ratio} 0.9-2.4 [facility] Work Phone: Serum or plasma calcium sita urement (mass/volume)on 07-13-2021 Calcium [Mass/Vol] 8.2 mg/dL 8.5-10.1 [facility] Work Phone: Serum or plasma creatinine m easurement (mass/volume)on 07-13-2021 Creatinine [Mass/Vol] 1.31 mg/dL 0.70-1.30 [facility] Work Phone: Comment on above: The validity of the calculated GFR & GFRAA in patients over 70 years has not been determined. Clinical correlation is essential. Serum or plasma urea nitroge n measurement (mass/volume)on 07-13-2021 Urea nitrogen [Mass/Vol] 7 mg/dL 7-18 [facility] Work Phone: Thin prep Papanicolaou smear with manual screeningon 07-13-2021 Thin prep Papanicolaou smear with manual screening 18 U/L 15-37 [facility] Work Phone: Thin prep Papanicolaou smear with manual screening 7 5-15 [facility] Work Phone: CNOVon 05-16-2018 CNOV Office Visit (UCWSTR) ANAASHIA Franz ([id number]) 1935 MDate Time Provider Pilpydpszb61/28/18 12:45 PM [facility] During [facility] visit today, we recorded the following information about you: Temperature Pulse Respiration Blood pressure 98.5 degrees 66/minute 16/minute 118/68 Weight 97.6 kgAnt Burger MD 05/16/2018 12:59 PM SignedPatient presents with:Shingles: itchy/painful rash on LEFT side of torso x 3 daysHPI:Rash: Location: left side and back Duration: 3-4 days Pruritis: Yes Pain: Yes Change: NO Bleeding/ulceration/bl ister/pustule: Unable to see it. 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 Contacts with rash: No Treatment: None.He has had a shingles vaccine. Awaiting availability of the new shinglesvaccine.MEDICA TIONS:Aspirin 81 mg tab Take 81 mg by mouth once daily.LOSARTAN-HYDROCH LOROTHIAZIDE 100-12.5 mg per tablet once daily.METFORMIN 1,000 mg tablet twice daily. 1 tablet in the morning AND 1/2 tablet atnightmetoprolol tartrate, short acting, (LOPRESSOR) 100 mg tablet Take 100 mg bymouth twice daily.omeprazole (PRILOSEC) 20 mg capsule Take 1 capsule by mouth once daily.pravastatin 40 mg tablet Take 1 tablet by mouth once daily.glimepiride 2 mg tablet Take 1 tablet by mouth. Take 1 tablet by mouth everyevening.ALLERGIES :ALLERGIESAllergen Reactions- Codeine Other: See Comments Light headedVITALS:BP 118/68 Pulse 66 Temp 36.9 ?C (98.5 ?F) (Left Tympanic) Resp 16 Wt 97.6 kg (215 lb 3.2 oz) BMI 30.88 kg/m?PHYSICAL EXAM: GEN: pleasant, no acute distress, alert SKIN: Clusters of vesicles with erythema surrounding in a left ~[id number].ASSES SMENT/PLAN:1. Herpes zoster without complications - ICD9: 053.9, ICD10: B02.9Shingles discussed. Shingles is a viral rash from prior chicken pox infection. Early antiviral medicine can reduce the length and severity of the shinglesoutbreak. The rash is contagious until all blisters or sores are dry. Untilthis avoid contact with women, unvaccinated (usually children under1), or people with impaired immune systems who would be susceptible tocontracting the chicken pox. The site of the rash may have scaring (colorchange) after the infection is resolved. Pain, burning, or tingling from therash may continue for days to several months after the infection-typically afew weeks. There is a vaccine that can reduce the chance of future shinglesoutbreaks, but it does not provide any benefit for a few years after a shinglesepisode.He is beyond the window of benefit from antiviral medication. Treat discomfortwith PRN analgesia.F/u with PCP if further pain control is needed.Ant Burger, MDReferring Provider: SELF [[id number]]Allergies As of Date: 05/16/2018 Noted Allergy ReactionCODEINE 02/20/2012 14 - Other: See Comments Comments: Light headedDate Reviewed: 09/11/2016Reviewed by: Charanjit Alvarado LPN - Fully AssessedReason for Visit: Shingles [870] Cmt: itchy/painful rash on LEFT side of torso x 3 daysPrimary Visit Diagnosis:Herpes zoster without complications [B02.9]Prescriptions as of 05/16/2018 Sig: ASPIRIN 81 MG TABLET Take 81 mg by mouth once [place]* * LOSARTAN 100 MG-HYDROCHLOROTH* once daily. * METFORMIN 1,000 MG TABLET twice daily. 1 tablet in the * METOPROLOL TARTRATE 100 MG TA* Take 100 mg by mouth twice da* * OMEPRAZOLE 20 MG CAPSULE,SHAGUFTA* Take 1 capsule by mouth once * * PRAVASTATIN 40 MG TABLET Take 1 tablet by mouth once d* * GLIMEPIRIDE 2 MG TABLET Take 1 tablet by mouth. Take *Problem List As Of Date 05/16/2018 Noted Resolved Benign neoplasm of colon [D12.6] INVALID FOR* Calculus of gallbladder without mention of chol*INVALID FOR* Atrial fibrillation (HCC) [I48.91] INVALID FOR* Abdominal wall abscess [L02.211] INVALID FOR* Hematoma of abdominal wall [S30.1XXA] INVALID FOR* Abdominal distention [R14.0] INVALID FOR* Status:Closed by ANT BURGER MD on 05/16/18 [facility] PROGRESSon 05-16-2018 Protein mass conc HNO ID: [id number]: Ant Hernandezervice: (none)Author Type: PhysicianType: Progress NotesFiled: 05/16/2018 12:59 PMNote Text:Patient presents with:Shingles: itchy/painful rash on LEFT side of torso x 3 daysHPI:Rash: Location: left side and back Duration: 3-4 days Pruritis: Yes Pain: Yes Change: NO Bleeding/ulceration/bl ister/pustule: Unable to see it. He is blind inthe left eye. Contacts with rash: No Treatment: None.He has had a shingles vaccine. Awaiting availability of the new shinglesvaccine.MEDICA TIONS:Aspirin 81 mg tab Take 81 mg by mouth once daily.LOSARTAN-HYDROCH LOROTHIAZIDE 100-12.5 mg per tablet once daily.METFORMIN 1,000 mg tablet twice daily. 1 tablet in the morning AND 1/2tablet at nightmetoprolol tartrate, short acting, (LOPRESSOR) 100 mg tablet Take 100 mgby mouth twice daily.omeprazole (PRILOSEC) 20 mg capsule Take 1 capsule by mouth once daily.pravastatin 40 mg tablet Take 1 tablet by mouth once daily.glimepiride 2 mg tablet Take 1 tablet by mouth. Take 1 tablet by mouthevery evening.ALLERGIES:GEE RGIESAllergen Reactions- [employer] Other: See Comments Light headedVITALS:BP 118/68 Pulse 66 Temp 36.9 ?C (98.5 ?F) (Left Tympanic) Resp 16 Wt 97.6 kg (215 lb 3.2 oz) BMI 30.88 kg/m?PHYSICAL EXAM: GEN: pleasant, no acute distress, alert SKIN: Clusters of vesicles with erythema surrounding in a left ~[id number].ASSES SMENT/PLAN:1. Herpes zoster without complications - ICD9: 053.9, ICD10: B02.9Shingles discussed. Shingles is a viral rash from prior chicken poxinfection. Early antiviral medicine can reduce the length and severity ofthe shingles outbreak. The rash is contagious until all blisters or soresare dry. Until this avoid contact with women, unvaccinated(usually children under 1), or people with impaired immune systems whowould be susceptible to debra the chicken pox. The site of the rashmay have scaring (color change) after the infection is resolved. Pain,burning, or tingling from the rash may continue for days to several monthsafter the infection-typically a few weeks. There is a vaccine that canreduce the chance of future shingles outbreaks, but it does not provideany benefit for a few years after a shingles episode.He is beyond the window of benefit from antiviral medication. Treatdiscomfort with PRN analgesia.F/u with PCP if further pain control is needed.Ant Burger MD [facility] Office Visiton 01-15-2017 Documentation of current medications (procedure) Done Invalid Interpretation Code [facility] Work Phone: Fall risk assessment No Invalid Interpretation Code [facility] Work Phone: Protein mass conc Done [facility] Work Phone: Office Visiton 05-25-2016 Dietary management education, guidance, and counseling (procedure) yes Invalid Interpretation Code [facility] Work Phone: Documentation of current medications (procedure) Done Invalid Interpretation Code [facility] Work Phone: Clinical Lists Update: Prelo emblem fuser tender 11-16-2015 Left ventricular Ejection fraction 50 % Invalid Interpretation Code [facility] Work Phone: Lab Report: Vitamin D,25 Hyd roxyon 06-24-2015 vitamin D 25-hydroxy, serum 14.8 ng/mL Invalid Interpretation Code [facility] Work Phone: Vitamin D 25-OH 14.8 ng/mL [facility] Work Phone: Lab Report: CBC W/Diff, Auto matedon 06-23-2015 Basophils/100 leukocytes 0.2 % Invalid Interpretation Code 0-1 [facility] Work Phone: Basophils/100 WBC (Bld) 0.2 % 0-1 [facility] Work Phone: [phone] Eosinophils/100 leukocytes 0.6 % Invalid Interpretation Code 0-5 [facility] Work Phone: [phone] Eosinophils/100 WBC (Bld) 0.6 % 0-5 [facility] Work Phone: [phone] Erythrocyte distribution width Ratio (RBC) 41.6 fL 35.1-43.9 [facility] Work Phone: [phone] Erythrocyte distribution width Ratio (RBC) 13.6 % 11.6-14.6 [facility] Work Phone: [phone] Erythrocytes (RBC) 4.69 10*6/uL Invalid Interpretation Code 4.6-6.2 [facility] Work Phone: [phone] Hematocrit (HCT) 39.5 % Low 40-54 [facility] Work Phone: [phone] Hematocrit Volume Fraction (Bld) 39.5 % Low 40-54 [facility] Work Phone: [phone] Hemoglobin (HGB) 13.4 g/dL Invalid Interpretation Code 13.0-16.5 [facility] Work Phone: [phone] Immature granulocytes #/vol (Bld) 0.300 % 0.0-0.9 [facility] Work Phone: [phone] immature granulocytes, percentage of total cells, blood 0.300 % Invalid Interpretation Code 0.0-0.9 [facility] Work Phone: [phone] Lymphocytes 0.84 X10 3/UL Invalid Interpretation Code 0.83-4.51 [facility] Work Phone: [phone] Lymphocytes #/vol (Bld) 0.84 X10 3/UL 0.83-4.51 [facility] Work Phone: [phone] Lymphocytes/100 leukocytes 8.8 % Low 19-41 [facility] Work Phone: [phone] Lymphocytes/100 WBC (Bld) 8.8 % Low 19-41 [facility] Work Phone: [phone] MCH 28.6 pg Invalid Interpretation Code 27.0-32.0 [facility] Work Phone: [phone] MCH Entitic mass (RBC) 28.6 pg 27.0-32.0 [facility] Work Phone: [phone] MCHC 33.9 G/GL Invalid Interpretation Code 32-36 [facility] Work Phone: [phone] mass conc (RBC) 33.9 G/GL 32-[address] [facility] Work Phone: [phone] MCV 84.2 fL Invalid Interpretation Code 80-94 [facility] Work Phone: [phone] MCV Entitic volume (RBC) 84.2 fL 80-94 [facility] Work Phone: [phone] Monocytes/100 leukocytes 11.9 % High 0-10 [facility] Work Phone: [phone] Monocytes/100 WBC (Bld) 11.9 % High 0-10 [facility] Work Phone: [phone] neutrophil count, blood 7.5 X10 3/UL Invalid Interpretation Code 2.0-7.7 [facility] Work Phone: [phone] Neutrophils #/vol (Bld) 7.5 X10 3/UL 2.0-7.7 [facility] Work Phone: [phone] Neutrophils/100 leukocytes 78.2 % High 47-70 [facility] Work Phone: [phone] Neutrophils/100 WBC (Bld) 78.2 % High 47-70 [facility] Work Phone: [phone] Platelet mean volume Entitic volume (Bld) 10.6 fL 6.2-12.0 [facility] Work Phone: [phone] Platelets 329 10*3/mm3 Invalid Interpretation Code 150-450 [facility] Work Phone: Platelets #/vol (Bld) 329 10*3/mm3 150-450 [facility] Work Phone: [phone] PMV by Doc 10.6 fL Invalid Interpretation Code 6.2-12.0 [facility] Work Phone: RBC #/vol (Bld) 4.69 10*6/uL 4.6-6.2 [facility] Work Phone: [phone] RDW-CA 13.6 % Invalid Interpretation Code 11.6-14.6 [facility] Work Phone: [phone] red blood cell distribution width, size density 41.6 fL Invalid Interpretation Code 35.1-43.9 [facility] Work Phone: [phone] WBC #/vol (Bld) 9.6 10*3/uL 4.4-11.0 [facility] Work Phone: [phone] WBC (Leukocytes) 9.6 10*3/uL Invalid Interpretation Code 4.4-11.0 [facility] Work Phone: [phone] Lab Report: Thyroid Stim Hor marino (TSH)on 06-23-2015 Thyroid stimulating hormone (TSH) 1.72 u[iU]/mL Invalid Interpretation Code 0.358-3.74 [facility] Work Phone: [phone] Office Visiton 05-31-2015 General cardiovascular disease 10Y risk [#] Slava 18 % Invalid Interpretation Code [facility] Work Phone: [phone] Tobacco smoking status NHIS Never smoker [facility] Work Phone: [phone] Tobacco use CPHS Never smoker Invalid Interpretation Code [facility] Work Phone: [phone] Clinical Lists Update: Prelo emblem fuser tender 10-02-2014 Alanine aminotransferase (ALT) 43 U/L Invalid Interpretation Code [facility] Work Phone: [phone] Albumin 2.3 g/dL Low [facility] Work Phone: [phone] Albumin/Globulin Ratio 0.7 {ratio} Low [facility] Work Phone: [phone] Alkaline phosphatase (ALP) 183 U/L High [facility] Work Phone: [phone] ALP enzyme act/vol (Bld) 183 U/L High [facility] Work Phone: [phone] Anion gap 6 mmol/L Invalid Interpretation Code [facility] Work Phone: [phone] Anion gap molar conc 6 mmol/L [facility] Work Phone: [phone] Aspartate aminotransferase (AST) 33 U/L Invalid Interpretation Code [facility] Work Phone: [phone] basophils as percent of blood leukocytes, manual count 0.1 % Invalid Interpretation Code [facility] Work Phone: [phone] Bilirubin (total) 1.80 mg/dL Invalid Interpretation Code [facility] Work Phone: [phone] BUN/Creatinine Ratio 9.0 mg/mg Low [facility] Work Phone: [phone] Calcium 7.3 mg/dL Low [facility] Work Phone: [phone] Chloride 99 mmol/L Invalid Interpretation Code [facility] Work Phone: [phone] CO2 29.0 mmol/L Invalid Interpretation Code [facility] Work Phone: [phone] CO2 ppres (BldV) 29.0 mmol/L [facility] Work Phone: [phone] Creatinine 1.0 mg/dL Invalid Interpretation Code [facility] Work Phone: [phone] eosinophils as percent of blood leukocytes, manual count 0.4 % Invalid Interpretation Code [facility] Work Phone: [phone] Globulin 3.5 g/dL Invalid Interpretation Code [facility] Work Phone: [phone] Globulin mass conc (S) 3.5 g/dL [facility] Work Phone: [phone] Glucose 182 mg/dL High [facility] Work Phone: [phone] Glucose mass conc 182 mg/dL High [facility] Work Phone: [phone] Magnesium 1.4 mg/dL Low [facility] Work Phone: [phone] neutrophils, band form as percent of blood leukocytes, manual count 86.9 % High [facility] Work Phone: [phone] Potassium 4.1 mmol/L Invalid Interpretation Code [facility] Work Phone: [phone] Protein 5.8 g/dL Low [facility] Work Phone: [phone] Sodium 134 mmol/L Low [facility] Work Phone: Urea nitrogen 9 mg/dL Invalid Interpretation Code [facility] Work Phone: Replaced Document: Sachi Mcgrawon 09-28-2014 BUN (urea nitrogen) Atrial 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 ABNORMAL [facility] Work Phone: P [place] -140 deg [facility] Work Phone: P wave axis, electrocardiogram -140 deg Invalid Interpretation Code [facility] Work Phone: NE Interval 0 ms [facility] Work Phone: NE interval, electrocardiogram 0 ms Invalid Interpretation Code [facility] Work Phone: Pulse (Heart Rate) 65 /min Invalid Interpretation Code [facility] Phone: QRS axis, electrocardiogram -52 deg Invalid Interpretation Code [facility] Phone: QRS Duration 156 ms [facility] Work Phone: QRS duration, electrocardiogram 156 ms Invalid Interpretation Code [facility] Work Phone: QT Interval new path ms [facility] Work Phone: QT interval, electrocardiogram new path ms Invalid Interpretation Code [facility] Work Phone: QTc [place] 506 ms [facility] Work Phone: T [place] -1 deg [facility] Work Phone: T wave axis, electrocardiogram -1 deg Invalid Interpretation Code [facility] Phone: Lab Report: Lipid Profileon 05-28-2014 Cholesterol 120 mg/dL Invalid Interpretation Code 200 [facility] Work Phone: [phone] Cholesterol 49 mg/dL Invalid Interpretation Code [facility] Work Phone: [phone] LDL Cholesterol 58 mg/dL Invalid Interpretation Code 0-130 [facility] Work Phone: [phone] Triglyceride 67 mg/dL Invalid Interpretation Code 0-199 [facility] Work Phone: [phone] very low density lipoproteins 13 mg/dL Invalid Interpretation Code 5-40 [facility] Work Phone: [phone] Lab Report: Liver Profileon 05-28-2014 Bilirubin (direct) 0.38 mg/dL Critically high 0.00-0.30 [facility] Work Phone: [phone] Globulin 3.2 g/dL Invalid Interpretation Code 2.7-4.2 [facility] Work Phone: [phone] Globulin mass conc (S) 3.2 g/dL 2.7-4.2 [facility] Work Phone: [phone] Lab Report: T4 Total, Thyrox inon 05-28-2014 Thyroxine (T4) 7.3 ug/dL Invalid Interpretation Code 4.5-12.1 [facility] Work Phone: [phone] Office Visiton 05-26-2014 Alcoholism counseling (procedure) yes Invalid Interpretation Code [facility] Work Phone: [phone] cardiac risk group C Invalid Interpretation Code [facility] Work Phone: [phone] Protein mass conc yes [facility] Work Phone: [phone] Vital Signs Date Time Vital Sign Value Performing Clinician Murieli rj 07-03-2024 14:34-0500 Body height 177.[address] Bernard Nugent MD Work Phone: [facility] 07-03-2024 14:34-0500 Body mass index (BMI) [Ratio] 33.1 kg/m2 Dr. Bernard Nugent MD Work Phone: [facility] 07-03-2024 14:34-0500 Body temperature 98.3 [degF] Dr. Bernard Nugent MD Work Phone: [facility] 07-03-2024 14:34-0500 Body weight 104.[address] Bernard Nugent MD Work Phone: [facility] 07-03-2024 14:34-0500 Diastolic blood pressure 76 mm[Hg] Dr. Bernard Nugent MD Work Phone: [facility] 07-03-2024 14:34-0500 Heart rate 85 /min Dr. Bernard Nugent MD Work Phone: [facility] 07-03-2024 14:34-0500 Respiratory rate 16 /min Dr. Bernard Nugent MD Work Phone: [facility] 07-03-2024 14:34-0500 SaO2% (BldA) [Mass fraction] 98 % Dr. Bernard Nugent MD Work Phone: [facility] 07-03-2024 14:34-0500 Systolic blood pressure 180 mm[Hg] Dr. Bernard Nugent MD Work Phone: 2(470)664-842902 [place] [address] 03-31-2024 11:41-0500 Body mass index (BMI) [Ratio] 30.1 kg/m2 Dr. Bernard Nugent MD Work Phone: 4(586)740-268602 [place] [address] 03-31-2024 11:41-0500 Body weight 95.[address] Bernard Nugent MD Work Phone: [facility] 03-31-2024 11:41-0500 Diastolic blood pressure 76 mm[Hg] Dr. Bernard Nugent MD Work Phone: [facility] 03-31-2024 11:41-0500 Heart rate 59 /min Dr. Bernard Nugent MD Work Phone: [facility] 03-31-2024 11:41-0500 Respiratory rate 16 /min Dr. Bernard Nugent MD Work Phone: [facility] 03-31-2024 11:41-0500 Systolic blood pressure 153 mm[Hg] Dr. Bernard Nugent MD Work Phone: [facility] 07-11-2023 11:28-0500 Diastolic blood pressure 70 mm[Hg] Dr. Bernard Nugent Work Phone: [facility] 07-11-2023 11:28-0500 Systolic blood pressure 150 mm[Hg] Dr. Bernard Nugent Work Phone: [facility] 07-11-2023 08:37-0500 Body height 177.[address] Bernard Nugent Work Phone: 3(188)542-484647 [address] 07-11-2023 08:37-0500 Body mass index (BMI) [Ratio] 29 kg/m2 Dr. Bernard Nugent Work Phone: 6(347)992-217402 [place] [address] 07-11-2023 08:37-0500 Body weight 91.[address] Bernard Nugent Work Phone: 4(503)379-474447 [address] 07-11-2023 08:37-0500 Heart rate 57 /min Dr. Bernard Nugent Work Phone: 1(150)533-887647 [address] 07-11-2023 08:37-0500 Respiratory rate 20 /min Dr. Bernard Nugent Work Phone: 7(049)315-451902 [place] [address] 07-11-2023 08:37-0500 SaO2% (BldA) [Mass fraction] 99 % Dr. Bernard Nugent Work Phone: 6(145)078-141502 [place] [address] 07-07-2023 16:43-0500 Body temperature 97 [degF] Dr. Bernard Nugent Work Phone: 2(480)280-250902 [place] [address] 07-07-2023 16:43-0500 Diastolic blood pressure 70 mm[Hg] Dr. Bernard Nugent Work Phone: [facility] 07-07-2023 16:43-0500 Heart rate 82 /min Dr. Bernard Nugent Work Phone: [facility] 07-07-2023 16:43-0500 Respiratory rate 18 /min Dr. Bernard Nugent Work Phone: 8(774)898-098802 [place] [address] 07-07-2023 16:43-0500 SaO2% (BldA) [Mass fraction] 96 % Dr. Bernard Nugent Work Phone: 5(221)686-559802 [place] [address] 07-07-2023 16:43-0500 Systolic blood pressure 160 mm[Hg] Dr. Bernard Nugent Work Phone: 2(498)595-866802 [place] [address] 07-07-2023 11:16-0500 Body height 177.[address] Bernard Nugent Work Phone: 5(820)699-144202 [place] [address] 07-07-2023 11:16-0500 Body mass index (BMI) [Ratio] 29.8 kg/m2 Dr. Bernard Nugent Work Phone: 0(916)643-842402 [place] [address] 07-07-2023 11:16-0500 Body weight 94.[address] Bernard Nugent Work Phone: 0(739)260-781673 [place] [address] 05-26-2023 17:48-0500 Body height 177.[address] Bernard Nugent Work Phone: 8(401)912-628873 [place] [address] 05-26-2023 17:48-0500 Body mass index (BMI) [Ratio] 30.2 kg/m2 Dr. Bernard Nugent Work Phone: 7(648)578-250102 [place] [address] 05-26-2023 17:48-0500 Body temperature 96.6 [degF] Dr. Bernard Nugent Work Phone: 9(236)043-015002 [place] [address] 05-26-2023 17:48-0500 Body weight 95.[address] Bernard Nugent Work Phone: 7(392)047-351573 [place] [address] 05-26-2023 17:48-0500 Diastolic blood pressure 92 mm[Hg] Dr. Bernard Nugent Work Phone: 8(775)880-386873 [place] [address] 05-26-2023 17:48-0500 Heart rate 59 /min Dr. Bernard Nugent Work Phone: 4(363)427-763502 [place] [address] 05-26-2023 17:48-0500 Respiratory rate 16 /min Dr. Bernard Nugent Work Phone: 2(976)732-556202 [place] [address] 05-26-2023 17:48-0500 SaO2% (BldA) [Mass fraction] 99 % Dr. Bernard Nugent Work Phone: 2(648)478-085702 [place] [address] 05-26-2023 17:48-0500 Systolic blood pressure 181 mm[Hg] Dr. Bernard Nugent Work Phone: [facility] 03-24-2023 12:31-0500 Diastolic blood pressure 70 mm[Hg] Dr. Bernard Nugent Work Phone: [facility] 03-24-2023 12:31-0500 Heart rate 76 /min Dr. Bernard Nugent Work Phone: 4(707)481-515802 [place] [address] 03-24-2023 12:31-0500 Respiratory rate 15 /min Dr. Bernard Nugent Work Phone: 6(104)042-723273 [place] [address] 03-24-2023 12:31-0500 SaO2% (BldA) [Mass fraction] 97 % Dr. Bernard Nugent Work Phone: 6(247)684-560473 [place] [address] 03-24-2023 12:31-0500 Systolic blood pressure 190 mm[Hg] Dr. Bernard Nugent Work Phone: 2(239)890-962173 [place] [address] 03-24-2023 09:50-0500 Body height 177.[address] Bernard Nugent Work Phone: 2(044)244-865473 [place] [address] 03-24-2023 09:50-0500 Body mass index (BMI) [Ratio] 28.3 kg/m2 Dr. Bernard Nugent Work Phone: 8(519)039-882473 [place] [address] 03-24-2023 09:50-0500 Body temperature 98 [degF] Dr. Bernard Nugent Work Phone: 3(004)480-609773 [place] [address] 03-24-2023 09:50-0500 Body weight 89.[address] Bernard Nugent Work Phone: 1(606)773-984573 [place] [address] 02-01-2023 15:07-0400 Body height 177.[address] Bernard Nugent Work Phone: 3(769)194-262502 [place] [address] 02-01-2023 15:07-0400 Body mass index (BMI) [Ratio] 28.4 kg/m2 Dr. Bernard Nugent Work Phone: 2(026)698-189073 [place] [address] 02-01-2023 15:07-0400 Body weight 89.[address] Bernard Nugent Work Phone: [facility] 02-01-2023 15:07-0400 Diastolic blood pressure 81 mm[Hg] Dr. Bernard Nugent Work Phone: [facility] 02-01-2023 15:07-0400 Heart rate 56 /min Dr. Bernard Nugent Work Phone: [facility] 02-01-2023 15:07-0400 Respiratory rate 16 /min Dr. Bernard Nugent Work Phone: 4(545)544-973502 [place] [address] 02-01-2023 15:07-0400 Systolic blood pressure 135 mm[Hg] Dr. Bernard Nugent Work Phone: 5(922)243-575802 [place] [address] 09-25-2022 08:12-0400 Body temperature 97.6 [degF] Dr. Bernard Nugent Work Phone: 1(685)958-157147 [address] 09-25-2022 08:12-0400 Diastolic blood pressure 78 mm[Hg] Dr. Bernard Nugent Work Phone: 4(399)800-488802 [place] [address] 09-25-2022 08:12-0400 Heart rate 55 /min Dr. Bernard Nugent Work Phone: 8(288)255-080202 [place] [address] 09-25-2022 08:12-0400 Respiratory rate 15 /min Dr. Bernard Nugent Work Phone: [facility] 09-25-2022 08:12-0400 SaO2% (BldA) [Mass fraction] 96 % Dr. Bernard Nugent Work Phone: 1(036)833-279502 [place] [address] 09-25-2022 08:12-0400 Systolic blood pressure 168 mm[Hg] Dr. Bernard Nugent Work Phone: [facility] 09-24-2022 11:20-0400 Body height 177.[address] Bernard Nugent Work Phone: 4(222)759-090502 [place] [address] 09-24-2022 11:20-0400 Body weight 92.[address] Bernard Nugent Work Phone: [facility] 09-21-2022 10:16-0400 Body mass index (BMI) [Ratio] 29.1 kg/m2 Dr. Bernard Nugent Work Phone: [facility] 06-19-2022 10:54-0500 Body height 177.[address] Bernard Nugent Work Phone: [facility] 06-19-2022 10:54-0500 Body mass index (BMI) [Ratio] 29.1 kg/m2 Dr. Bernard Nugent Work Phone: [facility] 06-19-2022 10:54-0500 Body weight 92.[address] Bernard Nugent Work Phone: [facility] 06-19-2022 10:54-0500 Diastolic blood pressure 82 mm[Hg] Dr. Bernard Nugent Work Phone: 8(638)209-491973 [place] [address] 06-19-2022 10:54-0500 Diastolic blood pressure 70 mm[Hg] Dr. Bernard Nugent Work Phone: 8(049)467-018002 [place] [address] 06-19-2022 10:54-0500 Heart rate 50 /min Dr. Bernard Nugent Work Phone: [facility] 06-19-2022 10:54-0500 Respiratory rate 24 /min Dr. Bernard Nugent Work Phone: 6(300)779-859002 [place] [address] 06-19-2022 10:54-0500 Systolic blood pressure 144 mm[Hg] Dr. Bernard Nugent Work Phone: 0(931)530-917202 [place] [address] 06-19-2022 10:54-0500 Systolic blood pressure 160 mm[Hg] Dr. Bernard Nugent Work Phone: [facility] 06-19-2022 10:54-0500 Body mass index (BMI) [Ratio] 28.5 kg/m2 Dr. Bernard Nugent Work Phone: 3(021)020-050802 [place] [address] 06-19-2022 10:54-0500 Body weight 90.[address] Bernard Nugent Work Phone: [facility] 06-19-2022 10:54-0500 Heart rate 72 /min Dr. Bernard Nugent Work Phone: 6(340)917-693702 [place] [address] 06-19-2022 10:54-0500 Respiratory rate 18 /min Dr. Bernard Nugent Work Phone: [facility] 06-19-2022 10:54-0500 SaO2% (BldA) [Mass fraction] 99 % Dr. Bernard Nugent Work Phone: [facility] 02-28-2022 13:08-0400 Body temperature 97.2 [degF] Dr. Bernard Nugent Work Phone: [facility] Work Phone: 02-28-2022 13:08-0400 Body weight 90.[address] Bernard Nugent Work Phone: [facility] Work Phone: 02-28-2022 13:08-0400 Diastolic blood pressure 84 mm[Hg] Dr. Bernard Nugent Work Phone: [facility] Work Phone: 02-28-2022 13:08-0400 Heart rate 76 /min Dr. Bernard Nugent Work Phone: [facility] Work Phone: 02-28-2022 13:08-0400 Respiratory rate 18 /min Dr. Bernard Nugent Work Phone: [facility] Work Phone: 02-28-2022 13:08-0400 Systolic blood pressure 168 mm[Hg] Dr. Bernard Nugent Work Phone: [facility] Work Phone: 02-04-2022 23:53-0400 Diastolic blood pressure 73 mm[Hg] Dr. Bernard Nugent Work Phone: [facility] Work Phone: 02-04-2022 23:53-0400 Heart rate 48 /min Dr. Bernard Nugent Work Phone: [facility] Work Phone: 02-04-2022 23:53-0400 Respiratory rate 19 /min Dr. Bernard Nugent Work Phone: [facility] Work Phone: 02-04-2022 23:53-0400 SaO2% (BldA) [Mass fraction] 97 % Dr. Bernard Nugent Work Phone: [facility] Work Phone: 02-04-2022 23:53-0400 Systolic blood pressure 183 mm[Hg] Dr. Bernard Nugent Work Phone: [facility] Work Phone: 02-04-2022 21:39-0400 Body height 177.[address] Bernard Nugent Work Phone: [facility] Work Phone: 02-04-2022 21:39-0400 Body mass index (BMI) [Ratio] 29.5 kg/m2 Dr. Bernard Nugent Work Phone: [facility] Work Phone: 02-04-2022 21:39-0400 Body temperature 97.3 [degF] Dr. Bernard Nugent Work Phone: [facility] Work Phone: 02-04-2022 21:39-0400 Body weight 93.[address] Bernard Nugent Work Phone: [facility] Work Phone: 01-24-2022 13:06-0400 Body height 177.[address] Bernard Nugent Work Phone: [facility] Work Phone: 01-24-2022 13:02-0400 Diastolic blood pressure 72 mm[Hg] Dr. Bernard Nugent Work Phone: [facility] Work Phone: 01-24-2022 13:02-0400 Systolic blood pressure 142 mm[Hg] Dr. Bernard Nugent Work Phone: [facility] [facility] Work Phone: 12-22-2021 15:00-0400 Heart rate 59 /min Dr. Bernard Nugent Work Phone: [facility] Work Phone: 12-22-2021 14:21-0400 Body temperature 97.9 [degF] Dr. Bernard Nugent Work Phone: [facility] Work Phone: 12-22-2021 14:21-0400 Diastolic blood pressure 86 mm[Hg] Dr. Bernard Nugent Work Phone: [facility] Work Phone: 12-22-2021 14:21-0400 Respiratory rate 16 /min Dr. Bernard Nugent Work Phone: [facility] Work Phone: 12-22-2021 14:21-0400 SaO2% (BldA) [Mass fraction] 98 % Dr. Bernard Nugent Work Phone: [facility] Work Phone: 12-22-2021 14:21-0400 Systolic blood pressure 144 mm[Hg] Dr. Bernard Nugent Work Phone: [facility] Work Phone: 12-22-2021 06:00-0400 Body weight 92.[address] Bernard Nugent Work Phone: [facility] Work Phone: 12-21-2021 17:04-0400 Body height 177.[address] Bernard Nugent Work Phone: [facility] Work Phone: 12-21-2021 17:04-0400 Body mass index (BMI) [Ratio] 29.7 kg/m2 Dr. Bernard Nugent Work Phone: [facility] Work Phone: 12-21-2021 17:04-0400 Body weight 93.[address] Bernard Nugent Work Phone: [facility] Work Phone: 12-21-2021 16:41-0400 Body temperature 98.1 [degF] Dr. Bernard Nugent Work Phone: [facility] Work Phone: 12-21-2021 16:41-0400 Diastolic blood pressure 98 mm[Hg] Dr. Bernard Nugent Work Phone: [facility] Work Phone: 12-21-2021 16:41-0400 Heart rate 37 /min Dr. Bernard Nugent Work Phone: [facility] Work Phone: 12-21-2021 16:41-0400 Respiratory rate 18 /min Dr. Bernard Nugent Work Phone: [facility] Work Phone: 12-21-2021 16:41-0400 SaO2% (BldA) [Mass fraction] 96 % Dr. Bernard Nugent Work Phone: [facility] Work Phone: 12-21-2021 16:41-0400 Systolic blood pressure 176 mm[Hg] Dr. Bernard Nugent Work Phone: [facility] Work Phone: 12-19-2021 11:46-0400 Diastolic blood pressure 101 mm[Hg] Dr. Bernard Nugent Work Phone: [facility] Work Phone: 12-19-2021 11:46-0400 Heart rate 101 /min Dr. Bernard Nugent Work Phone: [facility] Work Phone: 12-19-2021 11:46-0400 Respiratory rate 16 /min Dr. Bernard Nugent Work Phone: [facility] Work Phone: 12-19-2021 11:46-0400 SaO2% (BldA) [Mass fraction] 98 % Dr. Bernard Nugent Work Phone: [facility] Work Phone: 12-19-2021 11:46-0400 Systolic blood pressure 153 mm[Hg] Dr. Bernard Nugent Work Phone: [facility] Work Phone: 12-19-2021 10:20-0400 Body temperature 97 [degF] Dr. Bernard Nugent Work Phone: [facility] Work Phone: 12-19-2021 10:04-0400 Body height 177.[address] Bernard Nugent Work Phone: [facility] Work Phone: 12-19-2021 10:04-0400 Body mass index (BMI) [Ratio] 30.1 kg/m2 Dr. Bernard Nugent Work Phone: [facility] Work Phone: 12-19-2021 10:04-0400 Body weight 95.[address] Bernard Nugent Work Phone: [facility] Work Phone: 12-07-2021 10:01-0400 Diastolic blood pressure 70 mm[Hg] Dr. Bernard Nugent Work Phone: [facility] Work Phone: 12-07-2021 10:01-0400 Systolic blood pressure 144 mm[Hg] Dr. Bernard Nugent Work Phone: [facility] Work Phone: 12-07-2021 10:00-0400 Body mass index (BMI) [Ratio] 30.1 kg/m2 Dr. Bernard Nugent Work Phone: [facility] Work Phone: 12-07-2021 10:00-0400 Body weight 95.[address] Bernard Nugent Work Phone: [facility] Work Phone: 12-07-2021 10:00-0400 Heart rate 52 /min Dr. Bernard Nugent Work Phone: [facility] Work Phone: 12-07-2021 10:00-0400 Respiratory rate 18 /min Dr. Bernard Nugent Work Phone: [facility] Work Phone: 12-07-2021 10:00-0400 SaO2% (BldA) [Mass fraction] 97 % Dr. Bernard Nugent Work Phone: [facility] Work Phone: 10-26-2021 13:34-0400 Body temperature 97.4 [degF] Dr. Bernard Nugent Work Phone: [facility] Work Phone: 10-26-2021 13:34-0400 Diastolic blood pressure 64 mm[Hg] Dr. Bernard Nugent Work Phone: [facility] Work Phone: 10-26-2021 13:34-0400 Heart rate 63 /min Dr. Bernard Nugent Work Phone: [facility] Work Phone: 10-26-2021 13:34-0400 Respiratory rate 16 /min Dr. Bernard Nugent Work Phone: [facility] Work Phone: 10-26-2021 13:34-0400 SaO2% (BldA) [Mass fraction] 95 % Dr. Bernard Nugent Work Phone: [facility] Work Phone: 10-26-2021 13:34-0400 Systolic blood pressure 143 mm[Hg] Dr. Bernard Nugent Work Phone: [facility] Work Phone: 10-26-2021 00:01-0400 Body height 177.[address] Bernard Nugent Work Phone: [facility] Work Phone: 10-26-2021 00:01-0400 Body mass index (BMI) [Ratio] 29.7 kg/m2 Dr. Bernard Nugent Work Phone: [facility] Work Phone: 10-26-2021 00:01-0400 Body weight 94.[address] Bernard Nugent Work Phone: [facility] Work Phone: 10-25-2021 23:03-0400 Body temperature 98 [degF] Dr. Bernard Nugent Work Phone: [facility] Work Phone: 10-25-2021 23:03-0400 Diastolic blood pressure 68 mm[Hg] Dr. Bernard Nugent Work Phone: [facility] Work Phone: 10-25-2021 23:03-0400 Heart rate 61 /min Dr. Bernard Nugent Work Phone: [facility] Work Phone: 10-25-2021 23:03-0400 Respiratory rate 18 /min Dr. Bernard Nugent Work Phone: [facility] Work Phone: 10-25-2021 23:03-0400 SaO2% (BldA) [Mass fraction] 98 % Dr. Bernard Nugent Work Phone: [facility] Work Phone: 10-25-2021 23:03-0400 Systolic blood pressure 152 mm[Hg] Dr. Bernard Nugent Work Phone: [facility] Work Phone: 10-25-2021 20:34-0400 Body height 175.[address] Bernard Nugent Work Phone: [facility] Work Phone: 10-25-2021 20:34-0400 Body mass index (BMI) [Ratio] 31.9 kg/m2 Dr. Bernard Nugent Work Phone: [facility] Work Phone: 10-25-2021 20:34-0400 Body weight 98.[address] Bernard Nugent Work Phone: [facility] Work Phone: 01-15-2017 14:04-0400 BMI (Body Mass Index) 30.8 kg/m2 Chelsy Reis [facility] Work Phone: 01-15-2017 14:04-0400 BP Diastolic 60 mm[Hg] Chelsy Reis [facility] Work Phone: 01-15-2017 14:04-0400 BP Systolic 120 mm[Hg] Chelsy Chato [facility] Work Phone: 01-15-2017 14:04-0400 Height 176.53 cm Chelsy Reis [facility] Work Phone: 01-15-2017 14:04-0400 Pulse (Heart Rate) 56 /min Chelsy Reis [facility] Work Phone: 01-15-2017 14:04-0400 Respiratory Rate 20 /min Chelsy Reis [facility] Work Phone: 01-15-2017 14:04-0400 Weight 95.98 kg [facility] Work Phone: 05-25-2016 08:04-0500 BMI (Body Mass Index) 30.27 kg/m2 Annalisa Jones RN [facility] Work Phone: 05-25-2016 08:04-0500 BP Diastolic 70 mm[Hg] Annalisa Jones RN [facility] Work Phone: 05-25-2016 08:04-0500 BP Systolic 152 mm[Hg] Annalisa Jones RN [facility] Work Phone: 05-25-2016 08:04-0500 BSA (Body Surface Area) 2.11 m2 Annalisa Jones RN [facility] Work Phone: 05-25-2016 08:04-0500 Height 176.53 cm Annalisa Jones RN [facility] Work Phone: 05-25-2016 08:04-0500 Pulse (Heart Rate) 70 /min Annalisa Jones RN [facility] Work Phone: 05-25-2016 08:04-0500 Respiratory Rate 18 /min Annalisa Jones RN [facility] Work Phone: 05-25-2016 08:04-0500 Weight 94.35 kg Annalisa Jones RN [facility] Work Phone: 09-28-2014 16:19-0400 Heart rate 65 /min Chelsy Reis [facility] [employer] Work Phone: Encounters Encounter Date Encounter Type Care Provider Facility Start: 10-22-2024 End: 10-22-[address] Bernard Nugent MD -Laboratory Work Phone: Start: 10-22-2024 End: 10-22-2024 ambulatory Bernard Chi Raffi Facility:[facility] Start: 10-19-2024 ambulatory Bernard Chi Raffi Facility:[facility] Start: 08-06-2024 End: 08-06-2024 ambulatory Bernard Chi [facility] Facility:[facility] Start: 08-06-2024 End: 08-06-[address] Rodolfo Tobias MD -[facility] Work Phone: Start: 07-27-2024 End: 07-27-[address] Bernard Nugent MD Work Phone: [facility] Work Phone: Start: 07-27-2024 End: 07-27-[address] Bernard Nugent MD -Laboratory Work Phone: Start: 07-27-2024 End: 07-27-2024 ambulatory Bernard [facility] Facility:[facility] Start: 07-09-2024 End: 07-09-[address] Bernard Nugent MD Work Phone: [facility] Work Phone: Start: 07-09-2024 End: 07-09-[address] Bernard Nugent MD -Laboratory, Specimen Work Phone: Start: 07-09-2024 End: 07-09-2024 ambulatory Bernard Chi Raffi Facility:[facility] Start: 07-03-2024 End: 07-03-2024 Emergency department patient visit Dr. Salvatore Hightower DO -Emergency Department Work Phone: Start: 05-07-2024 End: 05-07-2024 ambulatory Bernard Chi Raffi Facility:[facility] Start: 05-07-2024 End: 05-07-[address] Rodolfo Tobias MD -[facility] Work Phone: Start: 04-27-2024 End: 04-27-[address] Bernard Nugent MD -Laboratory, Phy Office 3rd [facility] Start: 04-27-2024 End: 04-27-2024 ambulatory Bernard Chi Raffi Facility:[facility] Start: 04-22-2024 End: 04-22-[address] Bernard Nugetn MD -Laboratory Work Phone: Start: 04-22-2024 End: 04-22-2024 ambulatory Bernard Chi Raffi Facility:[facility] Start: 03-31-2024 End: 03-31-[address] Rodolfo Tobias MD -[facility] Work Phone: Start: 03-31-2024 End: 03-31-2024 ambulatory Bernard Chi Raffi Facility:[facility] Start: 03-09-2024 End: 03-09-2024 ambulatory Bernard Chi Raffi Facility:[facility] Start: 03-04-2024 ambulatory Bernard Chi Raffi Facility:[facility] Start: 02-28-2024 End: 02-28-2024 ambulatory Bernard Chi Raffi Facility:[facility] Start: 02-20-2024 End: 02-21-2024 ambulatory Bernard Chi Raffi Facility:[facility] Start: 02-20-2024 End: 02-20-2024 ambulatory Bernard Chi Raffi Facility:[facility] Start: 02-05-2024 End: 02-05-2024 ambulatory Bernard Chi Raffi Facility:[facility] Start: 01-24-2024 End: 01-24-2024 ambulatory Bernard Chi Raffi Facility:[facility] Start: 11-11-2023 End: 11-11-2023 ambulatory Bernard Chi Raffi Facility:[facility] Start: 11-06-2023 End: 11-06-2023 ambulatory Rodolfo Tobias Facility:[facility] Start: 11-04-2023 End: 11-04-2023 ambulatory Bernard Alexys Raffi Facility:[facility] Start: 07-26-2023 Non-patient / Non-visit Dr. Vick Nugent Work Phone: [facility] Start: 07-26-2023 End: 07-26-[address] Bernard Nugent Work Phone: [facility] Work Phone: Start: 07-26-2023 End: 07-26-[address] Bernard Nugent Work Phone: [facility]-Cardiovascular Services Work Phone: Start: 07-24-2023 End: 07-24-[address] Bernard Nugent Work Phone: [facility] Work Phone: Start: 07-24-2023 End: 07-24-[address] Bernard Nugent Work Phone: [facility]-Laboratory, Phy Office [address] [place] [address] Start: 07-11-2023 End: 07-11-[address] Bernard Nugent Work Phone: [facility] Work Phone: Start: 07-07-2023 End: 07-07-2023 Emergency department patient [facility] Start: 07-01-2023 End: 07-01-[address] Bernard Nugent Work Phone: [facility] Work Phone: Start: 05-26-2023 End: 05-26-2023 Emergency department patient visit [facility] Start: 05-17-2023 End: 05-17-[address] Bernard Nugent Work Phone: [facility] Work Phone: Start: 05-08-2023 End: 05-08-[address] Bernard Nugent Work Phone: [facility] Work Phone: Start: 03-25-2023 End: 03-25-[address] Bernard Nugent Work Phone: [facility] Work Phone: Start: 03-25-2023 End: 03-25-[address] [facility] Start: 03-24-2023 End: 03-24-2023 Emergency department patient visit [facility] Start: 02-07-2023 End: 02-07-[address] Bernard Nugent Work Phone: [facility] Work Phone: Start: 02-07-2023 End: 02-07-[address] Bernard Nugent Work Phone: [facility] Office 3rd Flr Start: 02-06-2023 End: 02-06-[address] Bernard Nugent Work Phone: [facility] Work Phone: Start: 02-01-2023 End: 02-01-[address] Bernard Nugent Work Phone: [facility] Work Phone: Start: 01-22-2023 End: 01-22-[address] Bernard Nugent Work Phone: [facility] Work Phone: Start: 01-22-2023 End: 01-22-[address] Bernard Nugent Work Phone: [facility] Office 3rd Orr Start: 11-14-2022 End: 11-14-[address] Bernard Nugent Work Phone: [facility] Work Phone: Start: 11-06-2022 End: 11-06-[address] Bernard Nugent Work Phone: [facility] Work Phone: Start: 11-06-2022 End: 11-06-[address] Bernard Nugent Work Phone: [facility] Start: 10-30-2022 End: 10-30-[address] Bernard Nugent Work Phone: [facility] Start: 10-22-2022 End: 10-22-[address] Bernard Nugent Work Phone: [facility] Start: 10-02-2022 End: 10-02-[address] Bernard Nugent Work Phone: [facility] Start: 09-25-2022 End: 09-25-[address] Bernard Nugent Work Phone: [facility] Start: 09-25-2022 Non-patient / Non-visit Dr. Vick Nugent Work Phone: [facility] Start: 09-24-2022 End: 09-25-2022 Evaluation and management of inpatient Dr. Bernard Nugent Work Phone: [facility]-Progressive Care Unit Start: 09-24-2022 End: 09-25-[address] Bernard Nugent Work Phone: [facility] Work Phone: Start: 09-18-2022 End: 09-18-[address] Bernard Nugent Work Phone: [facility] Start: 09-04-2022 End: 09-04-[address] Bernard Nugent Work Phone: [facility] Work Phone: Start: 09-04-2022 End: 09-04-[address] Bernard Nugent Work Phone: [facility]-Laboratory, y Office 3rd Flr Start: 08-09-2022 End: 08-09-[address] Bernard Nugent Work Phone: [facility] Work Phone: Start: 08-09-2022 End: 08-09-[address] Bernard Nugent Work Phone: [facility]-Pulmonary Services/Neurology Start: 08-08-2022 End: 08-08-[address] Bernard Nugent Work Phone: [facility] Work Phone: Start: 08-08-2022 End: 08-08-[address] [facility] Start: 07-20-2022 End: 07-20-[address] Bernard Nugent Work Phone: [facility] Work Phone: Start: 07-20-2022 End: 07-20-[address] Bernard Nugent Work Phone: [facility]-Laboratory Start: 06-19-2022 End: 06-19-[address] Bernard Nugent Work Phone: [facility] Start: 03-27-2022 End: 03-27-[address] Bernard Nugent Work Phone: [facility] Work Phone: Start: 03-27-2022 End: 03-27-[address] Bernard Nugent Work Phone: [facility]-Pulmonary Services/Neurology Start: 03-13-2022 Non-patient / Non-visit Dr. Vick Nugent Work Phone: [facility] Start: 03-13-2022 End: 03-13-[address] Bernard Nugent Work Phone: [facility] Work Phone: Start: 03-13-2022 End: 03-13-[address] [facility] Start: 02-28-2022 End: 02-28-[address] [facility] Start: 02-28-2022 End: 02-28-[address] Bernard Nugent Work Phone: [facility] Start: 02-26-2022 End: 02-26-[address] Bernard Nugent Work Phone: [facility]-Laboratory, Phy Office 3rd Flr Start: 02-04-2022 End: 02-05-2022 Emergency department patient visit Dr. Bernard Nugent Work Phone: [facility]-Emergency Department Start: 02-01-2022 End: 02-01-[address] Bernard Nugent Work Phone: [facility] Work Phone: Start: 02-01-2022 End: 02-01-[address] Bernard Nugent Work Phone: [facility]-Pulmonary Services/Neurology Start: 01-31-2022 End: 01-31-[address] Bernard Nugent Work Phone: [facility] Work Phone: Start: 01-31-2022 End: 01-31-[address] Bernard Nugent Work Phone: [facility]-Outpatient Breast Imaging Start: 01-24-2022 End: 01-24-[address] Bernard Nugent Work Phone: [facility] Start: 01-18-2022 End: 01-18-[address] Bernard Nugent Work Phone: [facility] Work Phone: Start: 01-18-2022 End: 01-18-[address] Bernard Nugent Work Phone: [facility]-Laboratory, [facility] Office [address] [place] [address] Start: 12-27-2021 End: 12-27-[address] Bernard Nugent Work Phone: [facility]-Laboratory Start: 12-22-2021 Non-patient / Non-visit Dr. Vick Nugent Work Phone: [facility] Start: 12-22-2021 Non-patient / Non-visit Dr. Vick Nugent Work Phone: [facility] Start: 12-21-2021 Non-patient / Non-visit Dr. Vick Nugent Work Phone: [facility] Start: 12-21-2021 End: 12-22-2021 Evaluation and management of inpatient Dr. Bernard Nugent Work Phone: [facility]-Progressive Care Unit Start: 12-19-2021 End: 12-19-2021 Emergency department patient visit Dr. Bernard Nugent Work Phone: [facility]-Emergency Department Start: 12-07-2021 End: 12-07-[address] Bernard Nugent Work Phone: [facility] Start: 11-02-2021 End: 11-02-[address] [facility] Start: 10-26-2021 Non-patient / Non-visit Dr. Vick Nugent Work Phone: [facility] Start: 10-25-2021 Non-patient / Non-visit Dr. Vick Nugent Work Phone: [facility] Start: 10-25-2021 End: 10-26-2021 Evaluation and management of inpatient Dr. Bernard Nugent Work Phone: [facility] Start: 10-25-2021 Non-patient / Non-visit Dr. Vick Nugent Work Phone: [facility] Start: 10-18-2021 End: 10-18-[address] [facility] Start: 07-13-2021 End: 07-13-[address] [facility] Start: 05-16-2018 End: 05-16-[address] [facility] Procedures Date Procedure Procedure Detail Performing Clinician Start: 10-22-2024 Vitamin D, 25-hydrox y measurement Dr. Bernard Nugent MD Work Phone: Comment on above: Vitamin D StatusDefi ciency: <20 ng/mL (50nmol/L)Insufficiency: 20-30 ng/mL (50-75 nmol/L)Sufficiency: 30-100 ng/mL (75-250 nmol/L)Toxicity: >100 ng/mL (>250 nmol/L) Start: 07-27-2024 Vitamin D, 25-hydrox y measurement Dr. Bernard Nugent MD Work Phone: Comment on above: Vitamin D StatusDefi ciency: <20 ng/mL (50nmol/L)Insufficiency: 20-30 ng/mL (50-75 nmol/L)Sufficiency: 30-100 ng/mL (75-250 nmol/L)Toxicity: >100 ng/mL (>250 nmol/L) Start: 07-10-[address] Bernard Nugent MD Work Phone: Start: 07-10-2024 Gram stain microscopy D murphy Nugent MD Work Phone: Start: 07-10-2024 Microbial culture, routine Dr. Bernard Nugent MD Work Phone: Start: 07-09-[address] Bernard Nugent MD Work Phone: Start: 07-09-2024 Bacterial nucleic ac id assay Dr. Bernard Nugent MD Work Phone: Start: 07-07-2023 SARS-CoV-2, Influenz a & RSV (PCR) Dr. Bernard Nugent Work Phone: Start: 07-07-2023 CT angiography of ch est with contrast Dr. Bernard Nugent Work Phone: Start: 07-07-2023 Plain chest X-ray Dr. Osei Nugent Work Phone: Start: 05-26-2023 Plain chest X-ray Dr. Osei Nugent Work Phone: Start: 03-24-2023 CT of head without contrast Dr. Bernard Nugent Work Phone: Start: 03-24-2023 Plain chest X-ray Dr. Osei Nugent Work Phone: Start: 09-25-2022 Plain chest X-ray Dr. Osei Nugent Work Phone: Start: 09-19-2022 Plain chest X-ray Dr. Osei Nugent Work Phone: Start: 07-20-2022 Plain chest X-ray Dr. Osei Nugent Work Phone: Start: 02-04-2022 Plain chest X-ray Dr. Osei Nugent Work Phone: Start: 01-31-2022 Bilateral mammography D murphy Nugent Work Phone: Start: 01-31-[address] Bernard Nugent Work Phone: Start: 12-21-2021 CT angiography of ch est with contrast Dr. Bernard Nugent Work Phone: Start: 12-21-2021 Plain chest X-ray Dr. Osei Nugent Work Phone: Start: 12-19-2021 Plain chest X-ray Dr. Osei Nugent Work Phone: Start: 10-25-2021 Plain chest X-ray Dr. Osei Nugent Work Phone: Start: 10-25-2021 CT cervical spine wi thout contrast Dr. Bernard Nugent Work Phone: Start: 10-25-2021 CT of head without contrast Dr. Bernard Nugent Work Phone: Start: 01-15-2017 End: 01-15-2017 HOMICIDE DETECTIVE Rodolfo Tobias MD Start: 01-15-2017 End: 01-15-2017 Follow Up Appt 1 year Rodolfo Tobias MD Start: 05-25-2016 End: 05-25-2016 Dietary management education, guidance, and counseling Chelsy Reis Start: 05-25-2016 End: 05-25-2016 Follow Up Appt 6 months Cordelia Magdaleno Start: 05-25-2016 End: 05-25-2016 MMM Rodolfo Tobias MD Start: 11-23-2015 End: 11-23-2015 KRYSTLE Bonilla PA-C Work Phone: Start: 11-23-2015 End: 11-23-2015 Follow Up Appt 6 months Muriel Bonilla PA-C Work Phone: Start: 05-31-2015 End: 05-31-2015 Follow Up Appt 6 months Cordelia Magdaleno Start: 05-31-2015 End: 05-31-2015 JUAN CARLOS Tobias MD Start: 12-14-2014 End: 11-08-2016 *Hepatic Function Panel Cordelia Magdaleno Start: 12-14-2014 End: 11-08-2016 Lipid panel [AGGREGATE] Cordelia Magdaleno Start: 11-09-2014 End: 11-08-2015 HOMICIDE DETECTIVE Muriel Bonilla PA-C Work Phone: Start: 11-09-2014 [...] Rodolfo Tobias MD Start: 09-28-2014 End: 09-28-2014 MMCordelia Tobias MD Start: 09-28-2014 End: 09-29-2014 Pedal [...] Panel Cordelia Magdaleno Start: 05-26-2014 End: 05-26-2014 HOMICIDE DETECTIVE Rodolfo Tobias MD Start: 05-26-2014 End: 11-03-2014 [...] Treatment Date Care Activity Detail Author Start: 07-03-2024 [facility] Start: 07-03-2024 Smpl repair scalp/neck/ax/genit/trunk 2.6-7.5cm RPR S/N/AX/GEN/TRNK2.6-7.5CM [facility] Start: 07-07-2023 [facility] Start: 07-07-2023 [facility] Start: 05-26-2023 [facility] Start: 09-25-2022 Patient discharge [facility] Start: 09-24-2022 Following clinical pathway protocol [facility] Start: 09-24-2022 Bedrest [facility] Start: 09-24-2022 Elevation of head of bed [facility] Start: 09-24-2022 Admission procedure [facility] Start: 09-24-2022 Taking patient vital signs [facility] Start: 09-24-2022 Wound care [facility] Start: 09-24-2022 [facility] Start: 02-04-2022 [facility] Work Phone: Start: 12-22-2021 Patient discharge [facility] Work Phone: Start: 12-21-2021 Ambulation without limitation [facility] Work Phone: Start: 12-21-2021 Assessment of risk of venous thromboembolism [facility] Work Phone: Start: 12-21-2021 Incentive spirometry [facility] Work Phone: Start: 12-21-2021 Insertion of catheter into peripheral vein [facility] Work Phone: Start: 12-21-2021 Measuring intake and output [facility] Work Phone: Start: 12-21-2021 Oxygen therapy [facility] Work Phone: Start: 12-21-2021 Providing care according to standard [facility] Work Phone: Start: 12-21-2021 Referral to zinc skimmer [facility] Work Phone: Start: 12-21-2021 Referral to occupational therapist [facility] Work Phone: Start: 12-21-2021 Referral to service [facility] Work Phone: Start: 12-21-2021 Following clinical pathway protocol [facility] Work Phone: Start: 12-21-2021 End: 12-21-2021 [facility] Work Phone: Start: 12-21-2021 Troponin I measurement [facility] Work Phone: Start: 12-21-2021 Verification routine [facility] Work Phone: Start: 12-21-2021 Admission procedure [facility] Work Phone: Start: 12-21-2021 [facility] Work Phone: Start: 12-19-2021 [facility] Work Phone: Start: 10-26-2021 Patient discharge [facility] Work Phone: Start: 10-25-2021 Following clinical pathway protocol [facility] Work Phone: Start: 10-25-2021 Application of intermittent pneumatic compression device [facility] Work Phone: Start: 10-25-2021 Assessment of risk of venous thromboembolism [facility] Work Phone: Start: 10-25-2021 Care regimes management [facility] Work Phone: Start: 10-25-2021 Insertion of catheter into peripheral vein [facility] Work Phone: Start: 10-25-2021 Notification of physician [facility] Work Phone: Start: 10-25-2021 Oxygen therapy [facility] Work Phone: Start: 10-25-2021 Patient education [facility] Work Phone: Start: 10-25-2021 Providing care according to standard [facility] Work Phone: Start: 10-25-2021 Provision of activity privileges [facility] Work Phone: Start: 10-25-2021 Referral to occupational therapist [facility] Work Phone: Start: 10-25-2021 Referral to service [facility] Work Phone: Start: 10-25-2021 [facility] Work Phone: Start: 10-25-2021 Care planning and problem solving actions [facility] Work Phone: Start: 10-25-2021 Admission procedure [facility] Work Phone: Start: 01-16-2018 End: 01-16-2018 Appointment [facility] Work Phone: Start: 01-15-2017 End: 01-15-2017 Appointment Appointment [facility] Work Phone: Start: 01-15-2017 End: 01-15-2017 [facility] Work Phone: Start: 01-15-2017 End: 01-15-2017 Follow Up Appt 1 year Follow Up Appt 1 year [facility] Work Phone: Start: 05-25-2016 End: 05-25-2016 Follow Up Appt 6 months Follow Up Appt 6 months [facility] Work Phone: Start: 05-25-2016 End: 05-25-2016 MMM MMM [facility] Work Phone: Start: 11-23-2015 End: 11-23-2015 HOMICIDE DETECTIVE HOMICIDE DETECTIVE [facility] Work Phone: Start: 11-23-2015 End: 11-23-2015 Follow Up Appt 6 months Follow Up Appt 6 months [facility] Work Phone: Start: 05-31-2015 End: 05-31-2015 Follow Up Appt 6 months Follow Up Appt 6 months [facility] Work Phone: Start: 05-31-2015 End: 05-31-2015 MMM MMM [facility] Work Phone: Start: 12-14-2014 End: 11-08-2016 *Hepatic Function Panel *Hepatic Function Panel [facility] Work Phone: Start: 12-14-2014 End: 11-08-2016 Lipid panel [AGGREGATE] *Lipid Profile CC PCP [facility] Work Phone: Start: 11-09-2014 End: 11-08-2015 HOMICIDE DETECTIVE HOMICIDE DETECTIVE [facility] Work Phone: Start: 11-09-2014 End: 11-08-2015 Follow Up Appt 6 months Follow Up Appt 6 months [facility] Work Phone: Start: 09-28-2014 End: 11-03-2014 Electrocardiogram, complete EKG (In office) [facility] Work Phone: Start: 09-28-2014 End: 09-28-2014 Follow Up Appt 6 weeks Follow Up Appt 6 weeks [facility] Work Phone: Start: 09-28-2014 End: 09-28-2014 MMM MMM [facility] Work Phone: Start: 05-26-2014 End: 11-03-2014 *BMP *BMP [facility] Work Phone: Start: 05-26-2014 End: 05-31-2014 *Hepatic Function Panel *Hepatic Function Panel [facility] Work Phone: Start: 05-26-2014 End: 05-26-2014 HOMICIDE DETECTIVE HOMICIDE DETECTIVE [facility] Work Phone: Start: 05-26-2014 End: 05-26-2014 Echocardiography Echocardiogram (complete) [facility] Work Phone: Start: 05-26-2014 End: 05-26-2014 Electrocardiogram, complete EKG (In office) [facility] Work Phone: Start: 05-26-2014 End: 05-26-2014 Follow Up Appt 1 month Follow Up Appt 1 month [facility] Work Phone: Start: 05-26-2014 End: 05-31-2014 Lipid panel [AGGREGATE] *Lipid Profile CC PCP [facility] Work Phone: Start: 05-26-2014 End: 05-26-2014 Nuclear stress test -Lexiscan Nuclear stress test -Lexiscan [facility] Work Phone: Start: 05-26-2014 End: 11-03-2014 Thyroid stimulating hormone (TSH) *TSH [facility] Work Phone: Start: 05-26-2014 End: 11-03-2014 Thyroxine (T4) *T4 (Total) [facility] Work Phone: Start: 12-30-2013 End: 11-23-2015 X-ray exam of finger(s) X-Ray, Fingers [facility] Work Phone: Influenza virus A an d B and SARS-CoV-2 (COVID-19) Ag panel - Upper respiratory specim [facility] Magnesium [Mass/volu me] in Serum or Plasma [facility] Work Phone: Patient Education [facility] Work Phone: Patient referral [facility] Work Phone: SARS-CoV-2 (COVID-19 ) Ag [Presence] in Respiratory specimen by Rapid immunoassay [facility] Work Phone: Troponin I measurement [facility] Work Phone: Immunizations Immunization Date Immunization Notes Care Provider Fa cility 07-03-2024 tetanus toxoid, redu sen diphtheria toxoid, and acellular pertussis vaccine, adsorbed Dr. Bernard Nugent MD Work Phone: [facility] 07-15-2020 Covid (Moderna) Dr. Bernard Nugent Work Phone: [facility] 06-17-2020 Antolin (Moderna) Dr. Bernard Nugent Work Phone: [facility] 09-29-[address] Bernard Nugent Work Phone: [facility] Payers Date Payer Category Payer Self-pay [id number] 2023 Private Health Insurance [id number] 2016 Medicare [id number] Medicare [id number] Unknown [id number] 2.16.8 [id number] Unknown [id number] 2.16.8 [id number] Unknown [id number] 2.16.8 [id number] Unknown [id number] 2.16.8 [id number] Unknown [id number] 2.16.8 [id number] Unknown [id number] 2.16.8 40.1.840547.3.579.2.462 Unknown [id number] 2.16.8 40.1.521186.3.579.2.462 Unknown [id number] 2.16.8 40.1.277861.3.579.2.462 Unknown [id number] 2.16.8 40.1.081183.3.579.2.462 Unknown [id number] 2.16.8 40.1.343763.3.579.2.462 Unknown [id number] 2.16.8 40.1.790903.3.579.2.462 Unknown [id number] 2.16.8 40.1.801317.3.579.2.462 Unknown [id number] 2.16.8 40.1.127373.3.579.2.462 Unknown [id number] 2.16.8 40.1.155815.3.579.2.462 Unknown [id number] 2.16.8 40.1.395350.3.579.2.462 Unknown [id number] 2.16.8 40.1.035485.3.579.2.462 Unknown [id number] 2.16.8 40.1.084851.3.579.2.462 Unknown [id number] 2.16.8 40.1.645223.3.579.2.462 Unknown [id number] 2.16.8 40.1.843363.3.579.2.462 Unknown [id number] 2.16.8 [id number] Unknown [id number] 2.16.8 [id number] Social History Date Type Detail Facility Start: 10-25-2021 End: 07-11-2023 Tobacco smoking status NHIS Unknown if ever smoked [facility] Start: 1935 Sex Assigned At Male [facility] Start: 07-03-2024 End: 07-03-2024 Tobacco smoking status NHIS Never smoked tobacco (finding) [facility] Start: 07-23-2024 End: 08-06-2024 Sex Male (finding) [facility] Medical Equipment Procedure Code Equipment Code Equipment Origin al Text Equipment Identifier Dates ([id number]) Endocardial paci ng lead ()[id number] [id number] FDA Start: 09-24-2022 ([id number]) Single-chamber implantable pacemaker, rate-responsive ()[id number] [id number] FDA Start: 09-24-2022 Goals Date Patient Goal Desired Activity /State Functional Status Date Assessment Result Facility 09-25-2022 Functional status Ambulates [facility] Work Phone: 12-22-2021 Functional status Ambulates [facility] Work Phone: 06-09-2022 Functional status Activity Abili ty With Assist of 1 [facility] Work Phone: Mental Status Date Assessment Result Facility 05-26-2023 Cognitive function Level Of Cons ciousness Awake;Alert;Appropriate [facility] Work Phone: 03-24-2023 Cognitive function Level Of Cons ciousness Awake;Alert;Appropriate [facility] Work Phone: 09-25-2022 Cognitive function Voice/Name [facility] Work Phone: 12-22-2021 Cognitive function Voice/Name [facility] Work Phone: 10-26-2021 Cognitive function Voice/Name [facility] Work Phone: Clinical Notes 09-25-2022 to 03-31-2024 Note Date & Type Note Facility 03-31-2024 Evaluation note Diagnosis Onset Date Resolution Aortic aneurysm without rupture acute March 31 11:10am NSVT (nonsustained ventricular tachycardia) acute March 31 11:10am Status post cardiac pacemaker procedure acute March 11:10am Essential (primary) hypertension chronic March 31 11:10am Longstanding persistent atrial fibrillation chronic March 11:10am [facility] Work Phone: 1(930) 720-651911-05-2023 Discharge summary Author Raghu Acosta [facility] March 24, 2023 12:17pm Note Date/Time March 24, 2023 1 0:19am [facility] Medical Records Department [address] [place] [address] Emergency Department Summary 03/24/23 MR#: [id number] Acct: [id number] Name: ASHIA PEREZ Rep #:[id number] : 1935 87 From: Raghu Acosta DO PCP: Dr. Bernard Nugent MD Status:REG E R Location: ED HPI History of Present Illness Chief Complaint: Weakness Narrative Narrative: 87-year-old male presenting with lightheadedness, generalized weakness, anxiety. He states that started last evening prior to going to bed. He tried to lay down several times and was unable to sleep. He denies chest pain, palpitations,shortness of breath. He denies fevers or chills. He denies nausea or vomiting. Patient states has been up all night feeling anxious. Patient states he was able to eat breakfast and drink some orange juice and he feels better after this. He suspects that maybe his sugar was low. Patient states has had this inthe past. He is on glimepiride. No recent changes. [facility] Medical History Atrial fibrillation Chronic renal insufficiency, stage III (moderate) Closed head injury Diverticula of colon Diverticulitis large intestine Diverticulosis Essential (primary) hypertension Fall Hyperlipidemia Hypertension Left ventricular diastolic dysfunction Longstanding persistent atrial fibrillation Non-rheumatic tricuspid valve insufficiency Non-smoker Nonrheumatic mitral (valve) insufficiency Obesity Obstructive sleep apnea Paroxysmal atrial fibrillation Right bundle branch block (RBBB) with left anterior fascicular block Sleep apnea Type 2 diabetes mellitus Home Medications omeprazole 20 mg capsule,delayed release 20 mg PO DAILY reflux 09/19/14 [History Last Taken 12/21/21] pravastatin 40 mg tablet 40 mg PO QHS cholesterol 09/19/14 [History Last Taken 12/21/21] cholecalciferol (vitamin D3) 25 mcg (1,000 unit) capsule 25 mcg PO DAILY [id number]/07/22 [History Last Taken Unknown] tamsulosin 0.4 mg capsule (Flomax) 0.4 mg PO QHS prostate 02/04/22 [History Last Taken Unknown] melatonin 5 mg tablet 5 mg PO HS PRN Insomnia 08/16/22 [History Last Taken Unknown] furosemide 40 mg tablet 40 mg PO DAILY edema #90 tabs 10/30/22 [Rx Last Taken Unknown] apixaban 2.5 mg tablet 2.5 mg PO BID blood thinner #180 tabs 02/01/23 [Rx Last Taken Unknown] glimepiride 4 mg tablet 1 mg PO QAM diabetes 02/01/23 [History Last Taken Unknown] potassium chloride 20 mEq tablet,extended release 10 meq PO DAILY 02/01/23 [History Last Taken Unknown] Allergy/AdvReac Type Severity Reaction Status Date / Time codeine AdvReac Other Verified 03/24/23 09:52 lisinopril AdvReac Other Verified 03/24/23 09:52 Family History Father CVA (cerebral vascular accident) Mother Diabetes Sister Heart disease PPM Surgical History H/O hemicolectomy History of appendectomy History of cataract surgery History of tonsillectomy Hx of cholecystectomy Social History Smoking Status: Never smoker alcohol intake: current ROS ROS ED Constitutional Constitutional ED: Denies chills, fever(s) or sweats Eyes Eyes: Denies blurry vision or change in vision ENT ENT ED: Denies ear pain or sore throat Cardiovascular Cardiovascular: Denies chest pain, palpitations or racing heartbeat Respiratory/Chest Respiratory/Chest: Denies cough, dyspnea or sputum Gastrointestinal Gastrointestinal: Denies abdominal pain, constipation, diarrhea, nausea or vomiting Genitourinary Genitourinary ED: Denies dysuria, hematuria or urinary frequency Musculoskeletal Musculoskeletal: Denies arthralgias, myalgias or neck pain Integumentary Denies abscess, Abrasions or rash Neurologic Neurologic: Denies headache(s) or paresthesias Psychiatric Psychiatric: Denies anxiety, depression, suicidal ideation or suicidal thoughts Endocrine Endocrinology: Denies polydipsia or polyuria EXAM Physical Exam Const Vital Signs: 03/24/23 09:50 03/24/23 11:11 Temperature 98 F Temperature Source Temporal Pulse Rate 62 60 Respiratory Rate 18 18 Blood Pressure 183/76 H 198/97 H Blood Pressure Mean 111 130 Pulse Ox 99 99 Oxygen Delivery Method Room Air Room Air Positive well nourished General Appearance ED: NAD; Negative for pallor HEENT Reports moist mucous membranes Eyes PERRL and EOMs intact bilaterally Neck no lymphadenopathy Chest Wall inspection of chest normal Resp normal respiratory effort and clear to auscultation bilaterally Auscultation: Negative for rales, rhonchi or wheezes Cardio regular rate and regular rhythm GI normal to inspection, nondistended, normoactive bowel sounds Extremity normal to inspection Neuro oriented x3 and CN's II-XII intact bilaterally Sensorium / Orientation: alert Motor Exam: strength 5/5 throughout Psych mental status grossly normal Skin no rashes or lesions noted General Skin Exam: Negative for jaundice or pallor MDM MDM MDM Narrative Medical decision making narrative: Patient presenting with weakness, lightheadedness, anxiety. Differential includes anxiety, dehydration, electrode abnormalities, dysrhythmia, hypoglycemia, ACS, pneumonia, UTI. CBC obtained to assess white blood cell count, hemoglobin, platelets. CMP to assess liver function, renal function and electrolytes. Urinalysis to assess for UTI. High-sensitivity troponin EKG to assess for ischemia/dysrhythmia. Chest x-ray to rule out pneumonia. I did order a COVID and influenza swab however the patient declines. CBC shows a normal white blood cell count 8.6. Hemoglobin stable 14.7. Platelets are normal at 170. Creatinine elevated at 1.92 and patient was given a liter of IV fluids. Electrolytes are normal. LFTs show mild elevation in total bilirubin 2.2 however this is been elevated in the past. High-sensitivity troponin is 32. EKG on my interpretation appears to be a paced rhythm at 60 bpm without signs of ischemia. Chest x-ray on my interpretation shows no acute process. Radiologist services and agrees. Patient noted to have elevated blood pressure today and was given 10 hydralazine. Blood pressure has come down slightly. It is now 190/87. CT of the brain was obtained due to the symptoms and the high blood pressure. This was negative for acute findings. Discussed patient's findings with Dr. Nugent who stated he can follow-up with his office tomorrow and given 50 losartan here today patient was amenable to this plan. Discharged in stable condition. Impression: 1. Lightheadedness 2. Weakness 3. Anxiety 4. Hypertension Lab Data Attestation: I reviewed the patient's lab results. Labs: Laboratory Results - last 24 hr 03/24/23 03/24/23 10:10 10:22 WBC 8.6 RBC 4.82 Hgb 14.7 Hct 43.0 MCV 89.2 MCH 30.5 MCHC 34.2 RDW Std Deviation 44.8 H RDW Coeff of Lisa 13.8 Plt Count 170 MPV 11.7 Immature Gran % (Auto) 0.500 Neut % (Auto) 82.0 H Lymph % (Auto) 9.1 L [place] % (Auto) 6.9 Eos % (Auto) 1.0 Baso % (Auto) 0.5 Absolute Neuts (auto) 7.1 Absolute Lymphs (auto) 0.79 L Nucleated RBC % 0 Sodium 135 L Potassium 3.7 Chloride 99 Carbon Dioxide 29.0 Anion Gap 7 BUN 19 H Creatinine 1.92 H Estim Creat Clear Calc 27.99 Est GFR (MDRD) Af Amer 43 L Est GFR (MDRD) Non-Af 35 L BUN/Creatinine Ratio 9.9 L Glucose 279 H Calcium 8.4 L Total Bilirubin 2.20 H AST 14 L ALT 20 Alkaline Phosphatase 132 H Troponin I High Sens 32 Total Protein 6.9 Albumin 3.2 Globulin 3.7 Albumin/Globulin Ratio 0.9 Urine Color Yellow Urine Clarity Clear Urine pH 7.0 Ur Specific [place] 1.010 Urine Protein 15 H Urine Glucose (UA) 100 H Urine Ketones Negative Urine Occult Blood 10 H Urine Nitrite Negative Urine Bilirubin Negative Urine Urobilinogen Normal Ur Leukocyte Esterase Negative Urine RBC 0 SEEN Urine WBC 0 SEEN Ur Squamous Epith Cells 0 SEEN Urine Bacteria 0 SEEN Urine Mucus 0 SEEN Radiography Diagnostic Testing: Clinical Impression(s) from Imaging Studies Chest X-Ray 03/24/23 09:58 IMPRESSION: No acute cardiopulmonary abnormality. No interval change. Electronically Signed: Zac Carias MD at 10:57 EST , Brain CT 03/24/23 11:01 IMPRESSION: 1. No acute intracranial abnormality. 2. Stable senescent changes. Electronically Signed: Zac Carias MD at 11:46 EST , Discharge Plan Triage Chief Complaint: Weakness ED Provider: Raghu Acosta Dx/Rx/DC Orders Instructions: ED Anxiety Reaction, ED Hypertension, Established, ED Weakness (Uncertain Cause) Prescriptions: No Action cholecalciferol (vitamin D3) 25 mcg (1,000 unit) capsule 25 mcg PO DAILY glimepiride 4 mg tablet 1 mg PO QAM Rx Instructions: administer with breakfast potassium chloride 20 mEq tablet extended release 10 meq PO DAILY Eliquis 2.5 mg tablet 2.5 mg PO BID Qty: 180 3RF Hold Instructions: Resume on 10/02/22. pravastatin 40 MG tablet 40 mg PO QHS Patient Comments: CHOLESTEROL omeprazole 20 MG capsule 20 mg PO DAILY Patient Comments: ACID RELUX tamsulosin [Flomax] 0.4 mg Capsule 0.4 mg PO QHS melatonin 5 mg tablet 5 mg PO HS PRN (Reason: Insomnia) furosemide 40 mg tablet 40 mg PO DAILY Qty: 90 3RF Rx Instructions: Hold if creatinine is more than 0.5 mg/dL above the baseline Primary Care Provider: Bernard Nugent Chi Referrals: Bernard Nugent Chi, MD [Primary Care Provider] - Disposition Disposition: Home, Self Care What to do if you have Problems For any increased pain, shortness of breath, bleeding, nausea or vomiting, chestpain, or any unexpected problems, contact your Primary Care Provider. Call [facility] ([phone]) or report to the closest Emergency Room. Call 911 if necessary. 03/24/23 1217 <Electronically signed by Raghu Acosta DO> Cosigner Signature (if applicable): CC: Dr. Bernard Nugent MD ~ Signed [facility] Work Phone: 1(217) 887-399705-09-[address] Tobias [facility] September 25, 2022 8:04am Note Date/Time September 25, 2022 8:04am [facility] Medical Records Department [address] [place] [id number] Instructions for Home/Discharge Instructions 09/25/22 0803 MR#: [id number] Acct: [id number] Name: ASHIA PEREZ Rep #:[id number] : 1935 86 From: Rodolfo Tobias MD PCP: Dr. Bernard Nugent MD Status:REG S DC Discharge Instructions Diet Discharge Diet: No restrictions Activity Discharge Activity: May Not Drive Additional Activity Instructions:: May shower or bathe on [day 3]. Do not scrub the incision or soak in the tub. Just wash with soap and let the water run over the incision. Gently pat dry with towel. Medications: Take your pain medication as directed. Refer to your discharge instruction sheet for a list of medications you are to take. Dressing / Incision Call your doctor if your incision/area has: Continuous Slow Oozing, Sudden Increased Bleeding, Increased Pain/ Swelling, Increased Redness, Foul Smelling Discharge and Swelling at the incision site Call your doctor if you observe: Fever of 101 or Higher, Shortness of breath, Dizziness, Fainting spells, Swelling in the ankles, Chest pain, Prolonged hiccupping and Increased palpitations (irregular heartbeat) Suture Line Care: Avoid Pulling/Pushing and Avoid Pinching/Bending Additional Dressing/Incision Instructions:: When dressing is removed, wash and dry incision. Keep covered with a light bandage if it is rubbing against your clothing. Do not cover the incision with an airtight bandage. Change the bandagedaily. Do not remove steri strips. The strips will fall off on their own. Follow Up Care Please Follow Up With: Rodolfo Tobias MD When: Pacer follow up on october 02 at 1pm Test Results: Test results from this visit will be discussed in further detail at your follow- up appointment, if applicable. Discharge Plan Admission Attending Provider: Rodolfo Tobias Primary Care Provider: Bernard Nugent Chi Discharge Orders/Prescriptions Prescriptions: Held Eliquis 5 mg tablet 5 mg PO BID Hold Instructions: Resume on 10/02/22. No Action cholecalciferol (vitamin D3) 25 mcg (1,000 unit) capsule 25 mcg PO DAILY glimepiride 4 mg tablet 4 mg PO QAM Rx Instructions: administer with breakfast pravastatin 40 MG tablet 40 mg PO QHS Label Comments: CHOLESTEROL omeprazole 20 MG capsule 20 mg PO DAILY Label Comments: ACID RELUX tamsulosin [Flomax] 0.4 mg Capsule 0.4 mg PO QHS furosemide 40 mg tablet 40 mg PO DAILY Rx Instructions: Hold if creatinine is more than 0.5 mg/dL above the baseline melatonin 5 mg tablet 5 mg PO HS PRN (Reason: Insomnia) Referrals / Follow Up: Bernard Nugent Chi, MD [Primary Care Provider] - Disposition Disposition (needs filled in before D/C Order can be placed): Home, Self Care 09/25/22 0804<Electronically signed by Rodolfo Tobias MD>Rodolfo Tobias MD CC: Dr. Bernard Nugent MD ~ Signed [facility] Work Phone: [phone]) 176-767405-09-[address] Tobias [facility] September 25, 2022 8:01am Note Date/Time September 25, 2022 8:01am [facility] Medical Records Department [address] [place] [address] Progress Note - Cardiology 09/25/22 08 MR#: [id number] Acct: [id number] Name: ASHIA PEREZ Rep #:[id number] : 1935 86 From: Rodolfo Tobias MD PCP: Dr. Bernard Nugent MD Status:REG S DC Location: [place] [address] Subjective Subjective Patient seen and evaluated. Appears to be doing well. Also seen by device nurse. Objective Data Vital Signs: Vital Signs Temp Pulse Resp BP Pulse Ox O2 Del Method 97.6 F L 55 L 15 168/78 H 96 Room Air 09/25/22 07:54 09/25/22 07:54 09/25/22 07:54 09/25/22 07:54 09/25/22 07:54 09/25/22 07:54 Oxygen Delivery Method Room Air Weight: 203 lb Body Mass Index (BMI) 29.1 Intake & Output: Intake and Output for Last 24 Hours 09/23/22 09/24/22 09/25/22 23:59 23:59 23:59 Intake Total 120 / 420 500 / 500 Output Total 125 / 425 650 / 650 Balance -5 / -5 -150 / -150 Lab / Micro Data Result Diagrams: 09/24/22 10:55 09/24/22 10:56 Labs: Laboratory Results - last 24 hr 09/24/22 10:55: WBC 12.7 H, RBC 4.83, Hgb 14.3, Hct 42.2, MCV 87.4, MCH 29.6, MCHC 33.9, RDW Std Deviation 44.3 H, RDW Coeff of Lisa 14.0, Plt Count 212, MPV 11.6 09/24/22 10:56: Sodium 135 L, Potassium 3.0 L, Chloride 104, Carbon Dioxide 22.0, Anion Gap 9, BUN 22 H, Creatinine 1.77 H, Estim Creat Clear Calc 30.93, Est GFR (MDRD) Af Amer 47 L, Est GFR (MDRD) Non-Af 39 L, BUN/Creatinine Ratio 12.4, Glucose 61 L, Calcium 8.5 09/24/22 12:48: POC Glucose 68 L 09/24/22 13:43: POC Glucose 182 H Cardiology Labs/Tests 09/24/22 10:55: WBC 12.7 H, RBC 4.83, Hgb 14.3, Hct 42.2, MCV 87.4, MCH 29.6, MCHC 33.9, Plt Count 212, MPV 11.6 09/24/22 10:56: Sodium 135 L, Potassium 3.0 L, Chloride 104, Carbon Dioxide 22.0, Anion Gap 9, BUN 22 H, Creatinine 1.77 H, Est GFR (MDRD) Af Amer 47 L, EstGFR (MDRD) Non-Af 39 L, BUN/Creatinine Ratio 12.4, Glucose 61 L, Calcium 8.5 Rhythm: EKG: ECHO: Stress Test: Cardiac Cath: PCI: CT Surgery: Holter monitor: EPS: PPM: CXR: Chest CT Scan: Radiography Diagnostic Testing: Radiology Impression Chest X-Ray 09/25/22 05:55 IMPRESSION: No evidence of pneumothorax. Electronically Signed: Ganga Ricks MD at 5:48 EDT Reading Location ID and State: [address] [place] [address] Tel , Service support , Physical Exam Const alert, oriented x3 and no apparent distress General Appearance: cooperative HEENT hearing grossly normal bilaterally Head and Scalp: atraumatic Eyes EOMs intact bilaterally Neck General: normal visual inspection Chest inspection of chest normal and palpation of chest normal Resp normal respiratory effort Auscultation: clear to auscultation bilaterally Cardio regular rate, regular rhythm, S1 normal heart sound and S2 normal heart sound Jugular Venous Distention: JVD GI normal to inspection, nondistended, normoactive bowel sounds Extremity normal capillary refill and no pedal edema Peripheral Pulses: Yes pulses 2+ throughout and femoral pulses present Skin no rashes or lesions noted Neuro oriented x3 and CN's II-XII intact bilaterally Psych Appearance: grossly normal and appropriate Assessment & Plan Assessment/Plan (1) Longstanding persistent atrial fibrillation: PLAN: He does have longstanding persistent atrial fibrillation. The plan to be to continue him on the anticoagulation which would be restarted after his officevisit. He would also remain on the beta-juvencio. (2) Status post cardiac pacemaker procedure: PLAN: He is status post permanent pacemaker implantation. It was interrogated today and noted to be functioning well it will be adjusted appropriately at the office visit. Chest x-ray without any issues. Patient can be discharged for outpatient follow-up. 09/25/22 08 <Electronically signed by Rodolfo Tobias MD> Cosigner Signature (if applicable): CC: ~ Signed [facility] Work Phone: Evaluation note* Diagnosis Onset Date Resolution Status Closed head injury acute Fall acute Hypokalemia acute Hyponatremia acute Syncope and collapse acute Weakness acute [facility] Work Phone: Evaluation note* Diagnosis Onset Date Resolution Status Hyponatremia acute Weakness acute Hypokalemia resolved [facility] Work Phone: Evaluation note* Diagnosis Onset Date Resolution Status Hyponatremia acute Weakness acute Hypokalemia resolved Essential (primary) hypertension chronic Hyperlipidemia chronic Longstanding persistent atrial fibrillation chronic [facility] Work Phone: Evaluation note* Diagnosis Onset Date Resolution Status Hyponatremia acute Weakness acute Hypokalemia resolved Essential (primary) hypertension chronic Hyperlipidemia chronic Longstanding persistent atrial fibrillation chronic Bradycardia acute History of acute heart failure acute Junctional rhythm acute SOB (shortness of breath) on exertion acute Symptomatic bradycardia acut e Chronic renal insufficiency, stage III (moderate) chronic [facility] Work Phone: Evaluation note* Diagnosis Onset Date Resolution Status Hyponatremia acute Weakness acute Hypokalemia resolved Essential (primary) hypertension chronic Hyperlipidemia chronic Longstanding persistent atrial fibrillation chronic Bradycardia acute History of acute heart failure acute Junctional rhythm acute SOB (shortness of breath) on exertion acute Symptomatic bradycardia acut e Chronic renal insufficiency, stage III (moderate) chronic Essential (primary) hypertension chronic Hyperlipidemia chronic Longstanding persistent atrial fibrillation chronic [facility] Work Phone: Evaluation note* Diagnosis Onset Date Resolution Status Hyponatremia acute Weakness acute Hypokalemia resolved Bradycardia resolved Junctional rhythm resolved SOB (shortness of breath) on exertion resolved [facility] Work Phone: Evaluation note* Diagnosis Onset Date Resolution Status Bradycardia resolved Junctional rhythm resolved SOB (shortness of breath) on exertion resolved Breast mass, left acute [facility] Work Phone: Evaluation note* Diagnosis Onset Date Resolution Status Essential (primary) hypertension chronic Longstanding persistent atrial fibrillation chronic [facility] Work Phone: Evaluation note* Diagnosis Onset Date Resolution Status Essential (primary) hypertension chronic Longstanding persistent atrial fibrillation chronic Essential (primary) hypertension chronic Longstanding persistent atrial fibrillation chronic Status post cardiac pacemaker procedure acute Longstanding persistent atrial fibrillation [facility] Work Phone: Evaluation note* Diagnosis Onset Date Resolution Status Essential (primary) hypertension chronic Longstanding persistent atrial fibrillation chronic Status post cardiac pacemaker procedure acute Longstanding persistent atrial fibrillation 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 Left ventricular diastolic dysfunction chronic 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 Longstanding persistent atrial fibrillation chronic 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 [facility] Work Phone: Evaluation note* Diagnosis Onset Date Resolution Status 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 Left ventricular diastolic dysfunction chronic 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 Longstanding persistent atrial fibrillation chronic 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 Bradycardia acute 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 Left ventricular diastolic dysfunction chronic Longstanding persistent atrial fibrillation chronic 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 [facility] Work Phone: Evaluation note* Diagnosis Onset Date Resolution Status 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 Longstanding persistent atrial fibrillation chronic 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 Bradycardia acute 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 Left ventricular diastolic dysfunction chronic Longstanding persistent atrial fibrillation chronic 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 Essential (primary) hypertension chronic Longstanding persistent atrial fibrillation [facility] Work Phone: Evaluation note* Diagnosis Onset Date Resolution Status Essential (primary) hypertension chronic Longstanding persistent atrial fibrillation chronic Bradycardia acute 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 Longstanding persistent atrial fibrillation chronic [facility] Work Phone: Evaluation noteNo assessment information available [facility] Work Phone: Evaluation note* Diagnosis Onset Date Resolution Status Aortic aneurysm without rupture acute NSVT (nonsustained ventricular tachycardia) acute Essential (primary) hypertension chronic Longstanding persistent atrial fibrillation chronic [facility] Work Phone: Hospital Discharge instructions Additional Instructions Break your metoprolol tablets in half and take 1/2 tablet each day rather than 1 tablet each day. Call Dr. Tobias's office in the morning for recheck and [facility] Work [facility]: Hospital Discharge instructions Additional Instructions Stay well-hydrated. Follow-up with your PCP and return for any worsening of your symptoms.[facility] Work Phone: Hospital Discharge instructions Additional Instructions Thank you for trusting us with your care today! Please take Tylenol (2 pills, 650 mg), ibuprofen (2 pills, 400 mg) every 6 hours as needed for pain and fever control. Please fill metoprolol and take as prescribed. Please return to the emergency department if your symptoms change or worsen. Please follow with your primary care physician for further outpatient evaluation and management. Please discuss with your primary care physician and/or zinc skimmer incidental finding of thoracic arctic aneurysm to obtain proper follow-up and [facility] Work Phone: Reason for referral (narrative)No reason for referral information availableWMary [facility] Work Phone: Summary Purpose Family History Relationship Condition Age at Onset Recorded Date/T angela father Cerebrovascular accident (CVA) Unknown mother Diabetes mellitus Unknown sister Cardiac disease Unknown Advance Directives Advance Directive Response Recorded Date/ Time Advance Directives Yes June 07, 2016 6:40pm Living Will Yes October 25, 2021 8 :34pm Power of Ad Writer Yes October 25, 2021 8:34pm Advance Directive Response Recorded Date/ Time Name of Medical Power of Ad Writer Joleen eli October 26, 2021 12:05am Advance Directives Yes June 07, 2016 6:40pm Living Will Yes October 26, 2021 1 2:05am Power of Ad Writer Yes October 26, 2021 12:05am Advance Directive Response Recorded Date/ Time Name of Medical Power of Ad Writer Joleen eli October 26, 2021 12:05am Name of Medical Power of Ad Writer JOLEEN CHOI DAUGHTER December 19, 2021 10:21am Advance Directives Yes June 07, 2016 6:40pm Living Will Yes December 19, 2021 10:21am Power of Ad Writer Yes December 19 10:21am Advance Directive Response Recorded Date/ Time Name of Medical Power of Ad Writer Joleen eli October 26, 2021 12:05am Name of Medical Power of Ad Writer JOLEEN CHOI DAUGHTER December 19, 2021 10:21am Name of Medical Power of Ad Writer Mervat December 21, 2021 5:07pm Advance Directives Yes June 07, 2016 6:40pm Living Will Yes December 21, 2021 5:07pm Power of Ad Writer Yes December 21 5:07pm Advance Directive Response Recorded Date/ Time Name of Medical Power of Ad Writer Joleen manrique October 26, 2021 12:05am Name of Medical Power of Ad Writer JOLEEN MANRIQUE December 19, 2021 10:21am Name of Medical Power of Ad Writer Mervat December 21, 2021 5:07pm Name of Medical Power of Ad Writer andrew marte February 04, 2022 10:15pm Advance Directives Yes June 07, 2016 6:40pm Living Will Yes February 04, 2022 10:15pm Power of Ad Writer Yes January 10:15pm Advance Directive Response Recorded Date/ Time Name of Medical Power of Ad Writer JOLEEN MANRIQUE December 19, 2021 10:21am Name of Medical Power of Ad Writer Mervat December 21, 2021 5:07pm Name of Medical Power of Ad Writer andrew marte February 04, 2022 10:15pm Advance Directives Yes June 07, 2016 6:40pm Living Will Yes February 04, 2022 10:15pm Power of Ad Writer Yes January 10:15pm Advance Directive Response Recorded Date/ Time Name of Medical Power of Ad Writer JOLEEN MANRIQUE December 19, 2021 9:21am Name of Medical Power of Ad Writer Mervat December 21, 2021 4:07pm Name of Medical Power of Ad Writer andrew marte February 04, 2022 9:15pm Advance Directives Yes June 07, 2016 5:40pm Living Will Yes February 04, 2022 9:15pm Power of Ad Writer Yes January 9:15pm Advance Directive Response Recorded Date/ Time Advance Directives Yes June 07, 2016 5:40pm Living Will Yes February 04, 2022 9:15pm Power of Ad Writer Yes January 9:15pm Advance Directive Response Recorded Date/ Time Advance Directives Yes June 07, 2016 6:40pm Living Will Yes February 04, 2022 10:15pm Power of Ad Writer Yes January 10:15pm Advance Directive Response Recorded Date/ Time Advance Directives on File No September 242022 11:20am Name of Medical Power of Ad Writer Joleen (daught er) September 24, 2022 11:20am Advance Directives Yes September 24, 2022 11:20am Living Will Yes September 24, 2022 11 :20am Power of Ad Writer Yes September 24, 2022 11:20am Advance Directive Response Recorded Date/ Time Advance Directives Yes September 24, 2022 11:20am Living Will Yes September 24, 2022 11 :20am Power of Ad Writer Yes September 24, 2022 11:20am Advance Directive Response Recorded Date/ Time Advance Directives Yes September 24, 2022 10:20am Living Will No March 24 10:00am Power of Ad Writer No March 24, 2023 10:00am Advance Directive Response Recorded Date/ Time Advance Directives Yes September 24, 2022 10:20am Living Will No May 26 6:26pm Power of Ad Writer No May 26 6:26pm Advance Directive Response Recorded Date/ Time Name of Medical Power of Ad Writer joleen (daught er) July 07, 2023 11:38am Advance Directives Yes September 24, 2022 10:20am Living Will Yes July 07 11:38am Power of Ad Writer Yes July 07, 2023 11:38am Advance Directive Response Recorded Date/ Time Name of Medical Power of Ad Writer joleen (dapenelope er) July 07, 2023 12:38pm Advance Directives Yes September 24, 2022 11:20am Living Will Yes July 07 12:38pm Power of Ad Writer Yes July 07, 2023 12:38pm Advance Directive Response Recorded Date/ Time Living Will Yes September 24, 2022 10 :20am Power of Ad Writer Yes September 24, 2022 10:20am Living Will Yes July 03, 025 2:37pm Power of Ad Writer Yes July 03, 2024 2:37pm Name of Medical Power of Ad Writer JOLEENDARON ELI July 03, 2024 2:37pm Advance Directives Yes September 24, 2022 10:20am Advance Directive Response Recorded Date/ Time Living Will Yes July 03 025 3:37pm Do you have a Healthcare Pow er of Ad Writer? Yes July 03, 2024 3:37pm Name of Medical Power of Ad Writer JOLEEN ELI July 03, 2024 3:37pm Advance Directives Yes September 24, 2022 11:20am Chief Complaint and Reason for Visit Chief Complaint HYPONATREMIA HYPONATREMIA Reason for Visit Closed head injury Fall Hypokalemia Hyponatremia Syncope and collapse Weakness Chief Complaint HYPONATREMIA HYPONATREMIA HYPONATREMIA Reason for Visit Hyponatremia Weakness Hypokalemia Chief Complaint HYPONATREMIA HYPONATREMIA HYPONATREMIA 6 M FU SHORTNESS OF BREATH Reason for Visit Hyponatremia Weakness Hypokalemia Essential (primary) hypertension Hyperlipidemia Longstanding persistent atrial fibrillation Chief Complaint HYPONATREMIA HYPONATREMIA HYPONATREMIA 6 M FU SHORTNESS OF BREATH JUNCTIONAL BRADYCARDIA WITH SOB Reason for Visit Hyponatremia Weakness Hypokalemia Essential (primary) hypertension Hyperlipidemia Longstanding persistent atrial fibrillation Bradycardia History of acute heart failure Junctional rhythm SOB (shortness of breath) on exertion Symptomatic bradycardia Chronic renal insufficiency, stage III (moderate) Chief Complaint HYPONATREMIA HYPONATREMIA HYPONATREMIA 6 M FU SHORTNESS OF BREATH JUNCTIONAL BRADYCARDIA WITH SOB JUNCTIONAL BRADYCARDIA WITH SOB JUNCTIONAL BRADYCARDIA WITH SOB JUNCTIONAL BRADYCARDIA WITH SOB Reason for Visit Hyponatremia Weakness Hypokalemia Essential (primary) hypertension Hyperlipidemia Longstanding persistent atrial fibrillation Bradycardia History of acute heart failure Junctional rhythm SOB (shortness of breath) on exertion Symptomatic bradycardia Chronic renal insufficiency, stage III (moderate) Essential (primary) hypertension Hyperlipidemia Longstanding persistent atrial fibrillation Chief Complaint HYPONATREMIA HYPONATREMIA HYPONATREMIA 6 M FU SHORTNESS OF BREATH JUNCTIONAL BRADYCARDIA WITH SOB JUNCTIONAL BRADYCARDIA WITH SOB JUNCTIONAL BRADYCARDIA WITH SOB JUNCTIONAL BRADYCARDIA WITH SOB Reason for Visit Hyponatremia Weakness Hypokalemia Bradycardia Junctional rhythm SOB (shortness of breath) on exertion Chief Complaint HYPONATREMIA HYPONATREMIA HYPONATREMIA 6 M FU SHORTNESS OF BREATH JUNCTIONAL BRADYCARDIA WITH SOB JUNCTIONAL BRADYCARDIA WITH SOB JUNCTIONAL BRADYCARDIA WITH SOB JUNCTIONAL BRADYCARDIA WITH SOB 4 WKS PER MMM Reason for Visit Hyponatremia Weakness Hypokalemia Bradycardia Junctional rhythm SOB (shortness of breath) on exertion Chief Complaint HYPONATREMIA HYPONATREMIA HYPONATREMIA 6 M FU SHORTNESS OF BREATH JUNCTIONAL BRADYCARDIA WITH SOB JUNCTIONAL BRADYCARDIA WITH SOB JUNCTIONAL BRADYCARDIA WITH SOB JUNCTIONAL BRADYCARDIA WITH SOB 4 WKS PER MMM LEFT BREAST MASTODYNIA BRADYCARDIA SOB Reason for Visit Hyponatremia Weakness Hypokalemia Bradycardia Junctional rhythm SOB (shortness of breath) on exertion Chief Complaint 6 M FU SHORTNESS OF BREATH JUNCTIONAL BRADYCARDIA WITH SOB JUNCTIONAL BRADYCARDIA WITH SOB JUNCTIONAL BRADYCARDIA WITH SOB JUNCTIONAL BRADYCARDIA WITH SOB 4 WKS PER MMM LEFT BREAST MASTODYNIA BRADYCARDIA SOB L BIRADS 4 LEFT BREAST BIOPSY CLAUDICATION Reason for Visit Bradycardia Junctional rhythm SOB (shortness of breath) on exertion Breast mass, left Chief Complaint 6 M FU SHORTNESS OF BREATH JUNCTIONAL BRADYCARDIA WITH SOB JUNCTIONAL BRADYCARDIA WITH SOB JUNCTIONAL BRADYCARDIA WITH SOB JUNCTIONAL BRADYCARDIA WITH SOB 4 WKS PER MMM LEFT BREAST MASTODYNIA BRADYCARDIA SOB L BIRADS 4 LEFT BREAST BIOPSY CLAUDICATION Bradycardia, unspecified Reason for Visit Bradycardia Junctional rhythm SOB (shortness of breath) on exertion Breast mass, left Chief Complaint 6 M FU EORDER INT LABS Reason for Visit Essential (primary) hypertension Longstanding persistent atrial fibrillation Chief Complaint 6 M FU EORDER INT LABS PERSISTENT A-FIB Reason for Visit Essential (primary) hypertension Longstanding persistent atrial fibrillation Chief Complaint 6 M FU EORDER INT LABS PERSISTENT A-FIB Bradycardia per Dr. Raffi ROBERTO PER HOMICIDE DETECTIVE REGARDING EKG PERSISTENT ATRIAL FIB PERSISTENT ATRIAL FIB Reason for Visit Essential (primary) hypertension Longstanding persistent atrial fibrillation Essential (primary) hypertension Longstanding persistent atrial fibrillation Status post cardiac pacemaker procedure Longstanding persistent atrial fibrillation Chief Complaint EORDER INT LABS PERSISTENT A-FIB Bradycardia per Dr. 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 Left ventricular diastolic dysfunction Right bundle branch block (RBBB) 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 Longstanding persistent atrial fibrillation Right bundle branch block (RBBB) with left anterior fascicular block Chief Complaint 1 wk s/p PPM implant wound check 6 wk post implant f/u Type 2 diabetes mellitus with hyperglycemia 8 WK REMOTE PPM F/U Reason for Visit Junctional bradycard ia Status post cardiac pacemaker procedure Left ventricular diastolic dysfunction Right bundle branch block (RBBB) 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 Longstanding persistent atrial fibrillation Right bundle branch block (RBBB) with left anterior fascicular block Bradycardia 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 Left ventricular diastolic dysfunction Longstanding persistent atrial fibrillation Right bundle branch block (RBBB) with left anterior fascicular block Chief Complaint 6 wk post implant f/ u Type 2 diabetes mellitus with hyperglycemia 8 WK REMOTE PPM F/U 1 Y FU Reason for Visit Junctional bradycard ia Status post cardiac pacemaker procedure Longstanding persistent atrial fibrillation Right bundle branch block (RBBB) with left anterior fascicular block Bradycardia 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 Left ventricular diastolic dysfunction Longstanding persistent atrial fibrillation Right bundle branch block (RBBB) with left anterior fascicular block Essential (primary) hypertension Longstanding persistent atrial fibrillation Chief Complaint 1 Y FU WEAKNESS Reason for Visit Essential (primary) hypertension Longstanding persistent atrial fibrillation Chief Complaint 1 Y FU 3 mos remote PPM f/u WEAKNESS GENERAL ILLNESS Reason for Visit Essential (primary) hypertension Longstanding persistent atrial fibrillation Bradycardia 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 Longstanding persistent atrial fibrillation Chief Complaint WEAKNESS Pacer Check Remote Pacer Check Remote GENERAL ILLNESS SOB Chief Complaint Pacer Check Remote Pacer Check Remote GENERAL ILLNESS Pacer Check Remote SOB Nonsustained VT, ER visit 07/07/23 Other specified peripheral vascular diseases Reason for Visit Aortic aneurysm with out rupture NSVT (nonsustained ventricular tachycardia) Essential (primary) hypertension Longstanding persistent atrial fibrillation Chief Complaint Admit Date 1 Y FU March 31, 2024 11:10am Pacer Check Remote May 07, 2024 3:51am LAC July 03, 2024 2:33pm Reason for Visit Admit Date Aortic aneurysm without rupture March 31, 2024 11:10am NSVT (nonsustained ventricular tachycard ia) March 31, 2024 11:10am Status post cardiac pacemaker procedure March 31, 2024 11:10am Essential (primary) hypertension Novembe r 2023 11:10am Longstanding persistent atrial fibrillat ion March 31, 2024 11:10am Chief Complaint Admit Date Pacer Check Remote May 07, 2024 3:51am LAC July 03, 2024 2:33pm Chief Complaint Admit Date LAC July 03, 2024 2:33pm Pacer Check Remote August 06, 2024 3:3 2am Additional Source Comments (unrecognized sect ion and content) No Status Records FoundNo Status Records Found INFORMATION SOURCE (unrecogn ized section and content) DATE CREATED AUTHOR 05/17/2018 [facility] DATE CREATED AUTHOR AUTHOR'S ORGANIZ ATION 10/23/2024 [facility] Goals (unrecognized section and content) Goals may be documented in a n alternate sectionGoals may be documented in an alternate sectionGoals may be documented in an alternate sectionGoals may be documented in an alternate sectionGoals may be documented in an alternate sectionGoals may be documented in an alternate sectionGoals may be documented in an alternate sectionGoals may be documented in an alternate sectionGoals may be documented in an alternate sectionGoals may be documented in an alternate sectionGoals may be documented in an alternate sectionGoals may be documented in an alternate sectionGoals may be documented in an alternate sectionGoals may be documented in an alternate sectionGoals may be documented in an alternate sectionGoals may be documented in an alternate sectionGoals may be documented in an alternate section Care Teams (unrecognized sec tion and content) Team Status: Active Member Role Status Dates Dr. Bernard Nugent MD Family Provider Active Dr. Bernard Nugent MD Primary Care Provider Active Team Status: Inactive Member Role Status Dates Dr. Bernard Nugent MD Primary Care Provider, Referring Provider Active Evin Sarmiento CRIBBER, CRIBBER-C Attending Provider Active Team Status: Active Member Role Status Dates Dr. Bernard Nugent MD Primary Care Provider Active Dr. Shaila Haq DO Attending Provider Active Shaila Haq MD Referring Provider Active Evin Sarmiento CRIBBER, CRIBBER-C Other Provider Active Team Status: Inactive Member Role Status Dates Dr. Bernard Nugent MD Primary Care Provider Active Dr. Rodolfo Tobias MD Attending Provider Active Team Status: Inactive Member Role Status Dates Dr. Bernard Nugent MD Primary Care Provider Active Dr. Shaila Haq DO Attending Provider Active Shaila Haq MD Referring Provider Active Evin Sarmiento CRIBBER, CRIBBER-C Other Provider Active Team Status: Inactive Member Role Status Dates Dr. Bernard Nugent MD Primary Care Provider Active Dr. Shaila Haq DO Attending Provider Active Shaila CHAVEZ MD Referring Provider Active Evin Sarmiento CRIBBER, CRIBBER-C Other Provider Active Team Status: Inactive Member Role Status Dates Dr. Bernard Nugent MD Primary Care Provider Active Dr. Shaila Haq DO Attending Provider Active Team Status: Active Member Role Status Dates Dr. Bernard Nugent MD Primary Care Provider Active Evin Sarmiento CRIBBER, CRIBBER-C Attending Provider, Referring Pro vider Active Team Status: Inactive Member Role Status Dates Dr. Bernard Nugent MD Primary Care Provider Active Evin Sarmiento CRIBBER, CRIBBER-C Attending Provider, Referring Pro vider Active Team Status: Inactive Member Role Status Dates Dr. Bernard Nugent MD Primary Care Provider, Referring Provider Active Dr. Rodolfo Tobias MD Attending Provider Active Team Status: Active Member Role Status Dates Dr. Bernard Nugent MD Primary Care Provider Active Dr. Rodolfo Tobias MD Attending Provider, Referring Provider, Other Provider Active Team Status: Inactive Member Role Status Dates Dr. Bernard Nugent MD Primary Care Provider Active Dr. Rodolfo Tobias MD Admit Provider, Att ending Provider, Referring Provider Active Team Status: Inactive Member Role Status Dates Dr. Bernard Nugent MD Primary Care Provider, Referring Provider Active Jacqui Bell Attending Provider Active Team Status: Inactive Member Role Status Dates Dr. Bernard Nugent MD Primary Care Provi reena, Attending Provider, Referring Provider Active Team Status: Inactive Member Role Status Dates Dr. Bernard Nugent MD Primary Care Provider Active Jacqui Bell Active Dr. Rodolfo Tobias MD Attending Provider, Referring Pro vider Active Team Status: Inactive Member Role Status Dates Dr. Bernard Nugent MD Primary Care Provider, Attending Provider Active Team Status: Inactive Member Role Status Dates Dr. Bernard Nugent MD Primary Care Provider Active Dr. Raghu Acosta DO Emergency Provider Active Team Status: Inactive Member Role Status Dates Dr. Bernard Nugent MD Primary Care Provider Active Dr. Raghu Acosta DO Attending Provider, Emergency Provider Active Team Status: Inactive Member Role Status Dates Dr. Bernard Nugent MD Primary Care Provider Active Dr. Anson Fonseca MD Emergency Provider Active Team Status: Inactive Member Role Status Dates Dr. Bernard Nugent MD Primary Care Provider Active Dr. Rodolfo Tobias MD Attending Provider, Referring Pro vider Active Team Status: Inactive Member Role Status Dates Dr. Bernard Nugent MD Primary Care Provider Active Dr. Anson Fonseca MD Attending Provider, Emergency Pro vider Active Team Status: Inactive Member Role Status Dates Dr. Bernard Nugent MD Primary Care Provider Active Dr. Ray Stuart DO Emergency Provider Active Team Status: Inactive Member Role Status Dates Dr. Bernard Nugent MD Primary Care Provider, Referring Provider Active Muriel Bonilla PA, PA Attending Provider Active Team Status: Active Member Role Status Dates Dr. Bernard Nugent MD Primary Care Provider Active Dr. Salvatore Lyman MD Attending Provider Active Team Status: Active Member Role Status Dates Dr. Bernard Nugent MD Primary Care Provider Active Dr. Roger Hunt DPM Attending Provider, Referring Provider Active Team Status: Inactive Member Role Status Dates Dr. Bernard Nugent MD Primary Care Provider Active Dr. Ray Stuart DO Attending Provider, Emergency P rovider Active Team Status: Inactive Member Role Status Dates Dr. Bernard Nugent MD Primary Care Provider Active Dr. Roger Hunt DPM Attending Provider, Referring Provider Active Team Status: Active Member Role Status Dates Dr. Bernard Nugent MD Primary Care Provider Active Team Status: Inactive Member Role Status Dates Dr. Bernard Nugent MD Primary Care Provider Active Start: March 31, 2024 End: March 31, 2024 Dr. Bernard Nugent MD Referring Provider Active Start: March 31, 2024 End: March 31, 2024 Dr. Rodolfo Tobias MD Attending Provider Active S tart: March 31, 2024 End: March 31, 2024 Team Status: Inactive Member Role Status Dates Dr. Bernard Nugent MD Primary Care Provider Active Start: April 22, 2024 End: April 22, 2024 Dr. Bernard Nugent MD Attending Provider Active Start: April 22, 2024 End: April 22, 2024 Dr. Bernard Nugent MD Referring Provider Active Start: April 22, 2024 End: April 22, 2024 Team Status: Inactive Member Role Status Dates Dr. Bernard Nugent MD Primary Care Provider Active Start: April 27, 2024 End: April 27, 2024 Dr. Bernard Nugent MD Attending Provider Active Start: April 27, 2024 End: April 27, 2024 Team Status: Inactive Member Role Status Dates Dr. Bernard Nugent MD Primary Care Provider Active Start: May 07, 2024 End: May 07, 2024 Dr. Rodolfo Tobias MD Attending Provider Active S tart: May 07, 2024 End: May 07, 2024 Dr. Rodolfo Tobias MD Referring Provider Active S tart: May 07, 2024 End: May 07, 2024 Team Status: Inactive Member Role Status Dates Dr. Bernard Nugent MD Primary Care Provider Active Start: July 03, 2024 End: July 03, 2024 Dr. Salvatore Hightower DO Attending Provider Active Start: July 03, 2024 End: July 03, 2024 Dr. Salvatore Hightower DO Referring Provider Active Start: July 03, 2024 End: July 03, 2024 Dr. Salvatore Hightower DO Emergency Provider Active Start: July 03, 2024 End: July 03, 2024 Team Status: Inactive Member Role Status Dates Dr. Bernard Nugent MD Primary Care Provider Active Start: July 09, 2024 End: July 09, 2024 Dr. Bernard Nugent MD Attending Provider Active Start: July 09, 2024 End: July 09, 2024 Dr. Bernard Nugent MD Referring Provider Active Start: July 09, 2024 End: July 09, 2024 Team Status: Inactive Member Role Status Dates Dr. Bernard Nugent MD Primary Care Provider Active Start: July 27, 2024 End: July 27, 2024 Dr. Bernard Nugent MD Attending Provider Active Start: July 27, 2024 End: July 27, 2024 Dr. Bernard Nugent MD Referring Provider Active Start: July 27, 2024 End: July 27, 2024 Team Status: Inactive Member Role Status Dates Dr. Bernard Nugent MD Primary Care Provider Active Start: August 06, 2024 End: August 06, 2024 Dr. Rodolfo Tobias MD Attending Provider Active S tart: August 06, 2024 End: August 06, 2024 Dr. Rodolfo Tobias MD Referring Provider Active S tart: August 06, 2024 End: August 06, 2024 Team Status: Inactive Member Role Status Dates Dr. Bernard Nugent MD Primary Care Provider Active Start: October 22, 2024 End: October 22, 2024 Dr. Bernard Nugent MD Attending Provider Active Start: October 22, 2024 End: October 22, 2024 Dr. Bernard Nugent MD Referring Provider Active Start: October 22, 2024 End: October 22, 2024 FOR RECORDS PERTAINING TO PATIENTS WHO ARE [...] BE BASED ON THE PRIMARY CLINICAL RECORDS. [employer] provides no warranty or guarantee of the accuracy or completeness of information in this document.
== END | disposition home or self-care (01) ==
PROVIDERS: PCP Family Medicine Geriatric Medicine; Referring Provider Family Medicine Geriatric Medicine; Visit Provider Family Medicine Geriatric Medicine
DX: R19.7 Diarrhea, unspecified (principal); R53.83 Other fatigue
CPT/HCPCS: 36415; 74018; 80053; 83735; 84100; 85025

== ENCOUNTER 2024-11-11 15:49 | Inpatient (IN) | payer MEDICARE, SELFPAY ==
[2024-11-11 15:49] VITALS: BP 129/56; PULSE 55; RESP 15; TEMP 36.6; O2SAT 98
[2024-11-11 17:49] VITALS: BP 122/64; PULSE 59; RESP 16; O2SAT 99
--- NOTE | 2024-11-11 18:19 | ED.RN ---
pt had a bowel movement at this time. bowel movement was formed and of normal brown color. dr crum notified,
--- NOTE | 2024-11-11 18:57 | CT_ITS ---
PROCEDURE: ABDOMEN/PELVIS W IV CONT ONLY 11/11/2024 REASON FOR EXAM: DIARRHEA, PELVIC PAIN TECHNIQUE: ABDOMEN/PELVIS W IV CONT ONLY Coronal and Sagittal reconstruction series were provided. CONTRAST: Isovue 370 VOLUME: 100 mL One or more dose reduction techniques were used (e.g., Automated exposure control, adjustment of the mA and/or kV according to patient size, use of iterative reconstruction technique. RADIATION DOSE SUMMARY: DLP: 1300 mGycm COMPARISON: CT abdomen pelvis 05/22/2018. FINDINGS: Lung bases: Partially visualized ICD pacer wires. Mild cardiomegaly. Bibasilar atelectasis. Liver: The liver is normal in size with scattered hypodensities, likely cysts. The major portal veins are patent. No biliary ductal dilation. Gallbladder: Prior cholecystectomy. Spleen: Normal in size. Pancreas: Mildly atrophic. Adrenals: Left adrenal mass measuring 2.2 cm (series 2, image 38). No right adrenal mass. Kidneys: Moderate symmetric renal cortical scarring. Bilateral renal cysts and additional hypodensities. No hydronephrosis or nephrolithiasis. Bladder: Moderately distended and unremarkable. Reproductive Organs: Markedly enlarged prostate which indents the bladder base. Bowel: Prior bowel resection and anastomosis within the left lower quadrant. The bowel loops are nondilated. Moderate wall thickening and surrounding fat stranding of the distal rectum with retained fecal material. Trace lower pelvic ascites. No pneumoperitoneum. Moderate pancolonic diverticulosis. Prior appendectomy. Lymph nodes: No suspicious lymph node enlargement. Vasculature: Ectasia of the aortoiliac vessels with severe mixed calcific plaque. Bones/soft tissues: Moderate size bilateral inguinal hernias containing fat and trace fluid. Thoracolumbar spondylosis. Soft tissue nodule just superior to with likely communication with the pubic symphysis (series 2, image 106) measuring 2.[address]/Abdomen/Pelvis W IV Cont ONLY IMPRESSION: 1. Wall thickening and surrounding fat stranding of the distal rectum, which nae wong represents infectious/inflammatory colitis. 2. Moderate pancolonic diverticulosis. Reading Location: [id number]
[2024-11-11 19:00] VITALS: BP 151/68; PULSE 58; RESP 20; O2SAT 99
--- NOTE | 2024-11-11 19:05 | ED.VIS.GI ---
HPI HPI - GI History of Present Illness Chief Complaint: Diarrhea Informant: patient Narrative Narrative: Patient is an 89-year-old male with history of hemicolectomy, lung seen atrial fibrillation on Eliquis, hyponatremia, left ventricular diastolic dysfunction and aortic aneurysm without rupture presenting for rectal pain and diarrhea. He states that he has been having diarrhea with frequent bowel movements. Is not sure if he is any blood in the stool but cannot tell because he has visually impaired. States that he initially saw his primary care doctor had an x-ray (this was reviewed in the chart and patient had a KUB on 10/30 that showed fecal retention of the colon consistent with constipation) he also had lab work that day which showed a very mild leukocytosis of 11.2 (down from where he was a week before that), mild hyponatremia the sodium of 130 again near his baseline and an uptrending creatinine of 1.41 (was 1.22 a week before). Patient's has some mild lower abdominal pain and states he feels that there is a blockage in his rectum. He states he is associated rectal pain which is different than feeling raw from wiping. States when he passes gas it helps with the pressure. He states it feels like there is a blockage in his rectum. Does have a history remotely of diverticulitis but states this feels different. Denies any fevers. Does state that 3 nights ago after taking Imodium he felt the blockage and then took 2 stool softeners. He has been having diarrhea since. States he is having at least 2-3 bowel movements a day. Sometimes more. Denies associated nausea. Came in for further evaluation of the symptoms. He was post have a repeat x-ray with his primary care doctor today but he was worried he would have incontinence from his diarrhea so he came to the ER instead [facility] Medical History NSVT (nonsustained ventricular tachycardia) Aortic aneurysm without rupture Non-smoker Sleep apnea Atrial fibrillation Hypertension Chronic renal insufficiency, stage III (moderate) Closed head injury Fall Longstanding persistent atrial fibrillation Obstructive sleep apnea Right bundle branch block (RBBB) with left anterior fascicular block Left ventricular diastolic dysfunction Obesity Essential (primary) hypertension Nonrheumatic mitral (valve) insufficiency Non-rheumatic tricuspid valve insufficiency Paroxysmal atrial fibrillation Hyperlipidemia Diverticulosis Type 2 diabetes mellitus Diverticulitis large intestine Diverticula of colon Home Medications ?Medication ?Instructions ?Recorded ?Last Taken ?Type pravastatin 40 mg tablet 40 mg PO QHS cholesterol 09/19/14 12/21/21 History levothyroxine 25 mcg tablet 25 mcg PO DAILY 02/20/24 Unknown History apixaban 2.5 mg tablet 2.5 mg PO BID blood thinner #60 03/27/24 Unknown Rx tabs amlodipine 5 mg tablet 5 mg PO DAILY #90 tabs 03/31/24 Unknown Rx furosemide 40 mg tablet 40 mg PO Q OTHER DAY PRN edema 03/31/24 Unknown History losartan 100 mg tablet 100 mg PO QDAY 03/31/24 Unknown History metoprolol tartrate 25 mg tablet 25 mg PO BID #180 tabs 08/18/24 Unknown Rx Allergy/AdvReac Type Severity Reaction Status Date / Time codeine AdvReac Other Verified 11/11/24 15:53 lisinopril AdvReac Other Verified 11/11/24 15:53 Family History Father CVA (cerebral vascular accident) Mother Diabetes Sister Heart disease PPM Surgical History History of appendectomy History of cataract surgery History of tonsillectomy H/O hemicolectomy Hx of cholecystectomy Social History household members: none housing: fdc Smoking Status: Never smoker alcohol intake: current alcohol intake frequency: holidays/special occasions only substance use type: does not use ROS ROS ED Constitutional Constitutional ED: Denies chills or fever(s) Cardiovascular Cardiovascular: Denies chest pain Respiratory/Chest Respiratory/Chest: Denies cough Gastrointestinal Gastrointestinal: Reports abdominal pain and diarrhea; Denies melena or nausea Genitourinary Genitourinary ED: Reports dysuria; Denies hematuria or urinary frequency Musculoskeletal Musculoskeletal: Denies arthralgias or myalgias Neurologic Neurologic: Denies weakness Hematologic/Lymphatic Hematologic/Lymphatic: Reports easy bleeding, easy bruising and other Details: On Eliquis EXAM Physical Exam Const Vital Signs: 11/11/24 15:49 11/11/24 17:49 11/11/24 19:00 Temperature 97.8 F Temperature Source Temporal Pulse Rate 55 L 59 L 58 L Respiratory Rate 15 16 20 H Blood Pressure 129/56 H 122/64 H 151/68 H Blood Pressure Mean 80 83 95 Pulse Ox 98 99 99 Oxygen Delivery Method Room Air Room Air 11/11/24 21:00 Temperature Temperature Source Pulse Rate Respiratory Rate 15 Blood Pressure 161/67 H Blood Pressure Mean 98 Pulse Ox 99 Oxygen Delivery Method Positive well nourished and well developed General Appearance ED: well developed and NAD; Negative for pallor HEENT Reports moist mucous membranes Eyes General Eye ED: Negative for scleral icterus Neck supple Resp normal respiratory effort and clear to auscultation bilaterally Cardio regular rate and regular rhythm GI non-distended GI Narrative: Mild tenderness in the pelvic region. No peritoneal signs. On rectal exam he has nonengorged/nonthrombosed with no bleeding external hemorrhoid. It is nontender. He does have tenderness on rectal exam and there is what feels like some stool out of my reach in the rectal vault. The stool itself is light brown. No obvious abscess or fluctuance appreciated. Auscultation: normoactive bowel sounds Palpation: soft Back/Spine no CVA tenderness Extremity full ROM Neuro Sensorium / Orientation: alert Motor Exam: Negative for general weakness Psych mental status grossly normal and thought process normal Skin no wounds General Skin Exam: Negative for jaundice or pallor MDM MDM MDM Narrative Medical decision making narrative: Patient evaluated for rectal pain, diarrhea and pelvic pain. This been going on for a little over a week. He is having diarrhea to the point that he is having stool incontinence because he cannot make it to the bathroom in time. Differential includes fecal impaction, colitis, diverticulitis, perirectal abscess, GI bleeding, bowel obstruction, ANISH, symptomatic anemia and electrolyte abnormality. Workup shows a mild leukocytosis of 11.4 and mild anemia hemoglobin 12.8 however his baseline looks to be closer to 13.8. He was 13.2 on 10/30/2024. BMP largely within normal limits. He has some chronic CKD with creatinine 1.46 today. It is only minimally elevated from his baseline of 1.22. BUN is also mildly elevated at 20. Looks like his baseline is closer to 12 or 15. Rectal exam shows brown stool that is tender José appreciate any mass. He does have Hemoccult positive stool. Concern for possible occult GI bleed given slightly elevated BUN, slightly downtrending hemoglobin and he is on Eliquis. In addition CT of the abdomen pelvis does show wall thickening and surrounding fat stranding the distal rectum likely representing infectious/inflammatory colitis. With his consolation of symptoms patient started on broad-spectrum antibiotics, Flagyl and Rocephin. Will be admitted to hospital service for further treatment and monitoring. Patient is agreeable this plan of care. Lab Data Attestation: I reviewed the patient's lab results. Labs: Laboratory Results - last 24 hr 11/11/24 18:56 WBC 11.4 H RBC 4.09 L Hgb 12.8 L Hct 36.9 L MCV 90.2 MCH 31.3 MCHC 34.7 RDW Std Deviation 43.8 RDW Coeff of Lisa 13.3 Plt Count 211 MPV 11.0 Immature Gran % (Auto) 0.600 Neut % (Auto) 81.6 H Lymph % (Auto) 8.3 L [place] % (Auto) 8.4 Eos % (Auto) 0.8 Baso % (Auto) 0.3 Absolute Neuts (auto) 9.3 H Absolute Lymphs (auto) 0.95 Nucleated RBC % 0 Sodium 136 Potassium 4.0 Chloride 102 Carbon Dioxide 23.1 Anion Gap 11 BUN 20 H Creatinine 1.46 H Est GFR (MDRD) Non-Af 46 L BUN/Creatinine Ratio 13.6 Glucose 171 H Calcium 8.8 Phosphorus 3.2 Magnesium 1.9 Total Bilirubin 2.12 H AST 24 ALT 19 Alkaline Phosphatase 142 H Total Protein 6.7 Albumin 3.7 Globulin 3.0 Albumin/Globulin Ratio 1.2 Urine Color Yellow Urine Clarity Clear Urine pH 6.0 Ur Specific [place] 1.020 Urine Protein 30 H Urine Glucose (UA) Normal Urine Ketones Negative Urine Occult Blood 25 H Urine Nitrite Negative Urine Bilirubin Negative Urine Urobilinogen 1 H Ur Leukocyte Esterase 25 H Urine RBC 0-5 SEEN Urine WBC 0-5 SEEN Ur Squamous Epith Cells 0 SEEN Urine Bacteria 0 SEEN Urine Mucus 0 SEEN Radiography Diagnostic Testing: Clinical Impression(s) from Imaging Studies Abdomen/Pelvis CT 11/11/24 18:57 IMPRESSION: 1. Wall thickening and surrounding fat stranding of the distal rectum, which likely represents infectious/inflammatory colitis. 2. Moderate pancolonic diverticulosis. Reading Location: [facility] Management Discussion w/another healthcare provider: Hospitalist Discharge Plan Dx/Rx/DC Orders Clinical Impression: Colitis, Occult GI bleeding, Current use of nursing home anticoagulation Disposition Disposition: Acute Care Hospital [facility] Discharge Date/Time: 11/11/24 22:55
[2024-11-11 19:10] LABS: Bacteria 0 SEEN /hpf (None Seen); Mucous, Urine 0 SEEN /hpf (<or=2+); Squamous Epithelial Cells - UA 0 SEEN /hpf (0-5)
[2024-11-11 19:13] LABS: Absolute Lymphocyte Count 0.95 X10^3/uL (0.83-4.51); Absolute Neutrophil Count 9.3 X10^3/uL (2.0-7.7); Basophil# 0.03 X10^3/uL; Basophil% 0.3 % (0-1); Eosinophil# 0.09 X10^3/uL; Eosinophils% 0.8 % (0-5); Hematocrit 36.9 % (40-54); Hemoglobin 12.8 g/dL (13.0-16.5); Lymphocyte # 0.95 X10^3/ul (0.83-4.51); Lymphocyte % 8.3 % (19-41); Mean Corp Hgb Conc 34.7 g/dL (32-36); Mean Corpuscular Hgb 31.3 pg (27.0-32.0); Mean Corpuscular Volume 90.2 fL (80-94); Monocyte# 0.96 X10^3/uL; Monocyte% 8.4 % (0-10); NRBC Flagged by Analyzer 0 % (0-5); Neutrophil # 9.33 X10^3/uL (2.7-7.7); Neutrophil % 81.6 % (47-70); Platelet Count 211 K/mm3 (150-450); RBC Distribution Width CV 13.3 % (11.6-14.6); RBC Distribution Width SD 43.8 fl (35.1-43.9); Red Blood Count 4.09 M/mm3 (4.6-6.2); White Blood Count 11.4 K/mm3 (4.4-11.0)
[2024-11-11 19:26] LABS: Color, Urine Yellow (Yellow); Glucose, Dipstick Normal (Normal); Ketone-Dipstick Negative (Negative); Leukocyte Esterase-Dipstick 25 /ul (Negative); Nitrite-Dipstick Negative (Negative); Occult Blood-Urine 25 /ul (Negative); Protein-Dipstick 30 mg/dl (Negative); Urine Bilirubin Dipstick Negative (Negative); Urine Clarity Clear (Clear); Urine Urobilinogen 1 mg/dl (Normal)
[2024-11-11 19:56] LABS: ALB/GLOB Ratio 1.2 RATIO (0.9-2.4); AST(SGOT) 24 U/L (<=37); Alanine Aminotransfer ALT/SGPT 19 U/L (<=46); Albumin, Serum 3.7 g/dL (3.4-4.8); Alkaline Phosphatase 142 U/L (40-129); Anion Gap 11 (5-15); BUN 20 mg/dL (4-19); BUN/Creat Ratio 13.6 RATIO (10-20); Calcium,Total 8.8 mg/dL (7.6-11.0); Carbon Dioxide 23.1 mmol/L (21.0-32.0); Chloride 102 mmol/L (98-108); Creatinine, Serum 1.46 mg/dL (0.70-1.20); EST Glomerular Filtration Rate 46 (>60); Glucose 171 mg/dL (70-99); Protein, Total 6.7 g/dL (5.9-8.4); Sodium Level 136 mmol/L (133-145); Total Bilirubin 2.12 mg/dL (0.00-1.30)
[2024-11-11 20:19] LABS: Red Blood Cells-Urine 0-5 SEEN /hpf (0-5); White Blood Cells 0-5 SEEN /hpf (0-5)
[2024-11-11 21:00] VITALS: BP 161/67; RESP 15; O2SAT 99
--- NOTE | 2024-11-11 21:57 | PCM.HP.STD ---
HPI - General General Date of Admission: 11/11/24 Date of Service: 11/11/24 Chief Complaint: Diarrhea. HPI Narrative The patient is an 89 y/o M w/ PMHx: Chronic total hyperbilirubinemia, Chronic normocytic anemia, CKD stage III unclear subtype per GFR trending, HTN, HLD, GERD, Hypothyroidism, Diabetes mellitus type II, PAF, CHEO, Hx NSVT status post pacemaker placement who presents to the [facility] ED on 11/11/2024 with history of persistent rectal discomfort with loose stools with frequent bowel movement unable to really discern the color secondary to visual impairment with recent primary care evaluation with [facility] on 10/30/2024 demonstrating fecal retention at that time with acute on chronic constipation with lab work with WBC with 11.2 and mild hyponatremia near his baseline with some mild renal insufficiency however patient has had some ongoing mild lower abdominal discomfort and feels as though his rectum is raw from wiping with symptom improvement when he has flatus with no recent fevers or chills with self administration of Imodium however he felt as though he was becoming more constipated with the Imodium prompting stool softener administration with loose stool since at least 2-3 daily sometimes more with associated nausea with no emesis prompting eventual ED evaluation to be cautious. He does report some generalized abdominal cramping but no specific pain. Workup in the ED included T97.8 Temporal, heart 55, BP 129/56, respiratory rate 15, 98% on room air with most recent repeat vitals heart rate 58, BP 161/67, respiratory rate 15, 99% on room air, CBC with WBC 11.4, hemoglobin 12.8, MCV 90.2, platelet 211 with left shift, CMP with BUN/creatinine 20/1.46, GFR 46, glucose 171, T. bili 2.12, AST/LT 24/19, alk phos 142, urinalysis with specific Robley 1.020, protein 30, occult blood 25, negative nitrite, leukocyte Estrace 25 with no marked evidence of urine tract infection, CT abdomen and pelvis with wall thickening and surrounding fat stranding of the distal rectum likely infectious/inflammatory colitis with moderate pancolonic diverticulosis. In the ED patient ministered Rocephin 1 g IV x 1 and Flagyl 5 mg IV x 1. FOR[facility]LY [facility] Medical History NSVT (nonsustained ventricular tachycardia) Aortic aneurysm without rupture Non-smoker Sleep apnea Atrial fibrillation Hypertension Chronic renal insufficiency, stage III (moderate) Closed head injury Fall Longstanding persistent atrial fibrillation Obstructive sleep apnea Right bundle branch block (RBBB) with left anterior fascicular block Left ventricular diastolic dysfunction Obesity Essential (primary) hypertension Nonrheumatic mitral (valve) insufficiency Non-rheumatic tricuspid valve insufficiency Paroxysmal atrial fibrillation Hyperlipidemia Diverticulosis Type 2 diabetes mellitus Diverticulitis large intestine Diverticula of colon Home Medications ?Medication ?Instructions ?Recorded ?Last Taken ?Type pravastatin 40 mg tablet 40 mg PO QHS cholesterol 09/19/14 12/21/21 History levothyroxine 25 mcg tablet 25 mcg PO DAILY 02/20/24 Unknown History apixaban 2.5 mg tablet 2.5 mg PO BID blood thinner #60 03/27/24 Unknown Rx tabs amlodipine 5 mg tablet 5 mg PO DAILY #90 tabs 03/31/24 Unknown Rx furosemide 40 mg tablet 40 mg PO Q OTHER DAY PRN edema 03/31/24 Unknown History losartan 100 mg tablet 100 mg PO QDAY 03/31/24 Unknown History metoprolol tartrate 25 mg tablet 25 mg PO BID #180 tabs 08/18/24 Unknown Rx Allergy/AdvReac Type Severity Reaction Status Date / Time codeine AdvReac Other Verified 11/11/24 15:53 lisinopril AdvReac Other Verified 11/11/24 15:53 Family History Father CVA (cerebral vascular accident) Mother Diabetes Sister Heart disease PPM Surgical History History of appendectomy History of cataract surgery History of tonsillectomy H/O hemicolectomy Hx of cholecystectomy Social History household members: none housing: snf Smoking Status: Never smoker alcohol intake: current alcohol intake frequency: holidays/special occasions only substance use type: does not use ROS ROS Narrative Admission Review of Systems: CONSTITUTIONAL: No weight loss, fever, chills, + weakness or fatigue. HEENT: Eyes: No visual loss, blurred vision, double vision or yellow sclerae. Ears, Nose, Throat: No hearing loss, sneezing, congestion, runny nose or sore throat. SKIN: No rash or itching, lesions, wounds. CARDIOVASCULAR: No chest pain, chest pressure or chest discomfort, palpitations, edema, orthopnea, syncopal events. RESPIRATORY: No shortness of breath, cough or sputum, wheezing, hemoptysis. GASTROINTESTINAL: + anorexia, nausea without emesis, vacillating constipation diarrhea, abdominal cramping, rectal pain. No melena, BRBPR. GENITOURINARY: No dysuria, frequency, urgency or retention. NEUROLOGICAL: No headache, dizziness, syncope, paralysis, ataxia, numbness or tingling in the extremities, focal weakness, change in bowel or bladder control, seizure. MUSCULOSKELETAL: + muscle, back pain, joint pain or stiffness. HEMATOLOGIC: + Chronic anemia, easy bleeding/bruising. LYMPHATICS: No enlarged nodes. No history of splenectomy. PSYCHIATRIC: No history of depression or anxiety. ENDOCRINOLOGIC: No reports of sweating, cold or heat intolerance. No polyuria or polydipsia. ALLERGIES: No history of asthma, hives, eczema or rhinitis. Vital Signs Vital Signs Vital Signs: 11/11/24 15:49 11/11/24 17:49 11/11/24 19:00 Temperature 97.8 F Temperature Source Temporal Pulse Rate 55 L 59 L 58 L Respiratory Rate 15 16 20 H Blood Pressure 129/56 H 122/64 H 151/68 H Blood Pressure Mean 80 83 95 Pulse Ox 98 99 99 Oxygen Delivery Method Room Air Room Air 11/11/24 21:00 Temperature Temperature Source Pulse Rate Respiratory Rate 15 Blood Pressure 161/67 H Blood Pressure Mean 98 Pulse Ox 99 Oxygen Delivery Method Physical Exam Narrative Physical Examination: General: Awake, alert, oriented x 3 and cooperative, seated upright in the ED bed, denies any marked pain or discomfort at this time. Skin: Normal color, normal turgor, no icterus, no cyanosis except occasional stage ecchymoses, abrasion, notable bilateral lower extremity venous stasis skin changes. HEENT: AT/NC, EOMI, PERRLA, mildly dry MM, no carotid bruits or JVD noted. Lungs: Mildly diminished, greater bases, poor effort, no rales, ronchi or wheezing. Heart: Mildly bradycardic with regular rhythm; no gallop, rub audible. Abdomen: Soft, overweight, NTTP, hyperactive bowel sounds, no obvious evidence of distention or tympany, no appreciated HSM. Extremities: No cyanosis, no clubbing, see skin, chronic bilateral lower extremity pedal to mid cullen edema with as noted significant venous stasis disease noted to be stable per patient. Neurological: Patient awake, alert, oriented as noted, cognitive function intact; pupils equally reactive to light and accommodation, cranial nerves gross normal, moving all 4 extremities, no focal deficits, strength moderately to severely globally decreased secondary to acute presentation complaints. Psychiatric: Affect appears mildly flat, fatigued, no acute evidence of depressive or anxiety feelings. Results Lab / Micro Data 11/11/24 18:56 11/11/24 18:56 Labs: Laboratory Results - last 24 hr 11/11/24 18:56: WBC 11.4 H, RBC 4.09 L, Hgb 12.8 L, Hct 36.9 L, MCV 90.2, MCH 31.3, MCHC 34.7, RDW Std Deviation 43.8, RDW Coeff of Lisa 13.3, Plt Count 211, MPV 11.0, Immature Gran % (Auto) 0.600, Neut % (Auto) 81.6 H, Lymph % (Auto) 8.3 L, O'Brien % (Auto) 8.4, Eos % (Auto) 0.8, Baso % (Auto) 0.3, Absolute Neuts (auto) 9.3 H, Absolute Lymphs (auto) 0.95, Nucleated RBC % 0, Sodium 136, Potassium 4.0, Chloride 102, Carbon Dioxide 23.1, Anion Gap 11, BUN 20 H, Creatinine 1.46 H, Est GFR (MDRD) Non-Af 46 L, BUN/Creatinine Ratio 13.6, Glucose 171 H, Calcium 8.8, Total Bilirubin 2.12 H, AST 24, ALT 19, Alkaline Phosphatase 142 H, Total Protein 6.7, Albumin 3.7, Globulin 3.0, Albumin/Globulin Ratio 1.2, Urine Color Yellow, Urine Clarity Clear, Urine pH 6.0, Ur Specific Villanueva 1.020, Urine Protein 30 H, Urine Glucose (UA) Normal, Urine Ketones Negative, Urine Occult Blood 25 H, Urine Nitrite Negative, Urine Bilirubin Negative, Urine Urobilinogen 1 H, Ur Leukocyte Esterase 25 H, Urine RBC 0-5 SEEN, Urine WBC 0-5 SEEN, Ur Squamous Epith Cells 0 SEEN, Urine Bacteria 0 SEEN, Urine Mucus 0 SEEN Micro: Microbiology 11/11/24 18:56 Stool Stool Occult Blood (CHERRY) - Final Occult Blood Positive Imaging Radiology Impression Abdomen/Pelvis CT 11/11/24 18:57 IMPRESSION: 1. Wall thickening and surrounding fat stranding of the distal rectum, which likely represents infectious/inflammatory colitis. 2. Moderate pancolonic diverticulosis. Reading Location: [id number] Assessment & Plan Assessment/Plan (1) Colitis: PLAN: Plan The patient is an 89 y/o M w/ PMHx: Chronic total hyperbilirubinemia, Chronic normocytic anemia, CKD stage III unclear subtype per GFR trending, HTN, HLD, GERD, Hypothyroidism, Diabetes mellitus type II, PAF, CHEO, Hx NSVT status post pacemaker placement who presents to the [facility] ED on 11/11/2024 with history of persistent rectal discomfort with loose stools with frequent bowel movement unable to really discern the color secondary to visual impairment with recent primary care evaluation with [facility] on 10/30/2024 demonstrating fecal retention at that time with acute on chronic constipation with lab work with WBC with 11.2 and mild hyponatremia near his baseline with some mild renal insufficiency however patient has had some ongoing mild lower abdominal discomfort and feels as though his rectum is raw from wiping with symptom improvement when he has flatus with no recent fevers or chills with self administration of Imodium however he felt as though he was becoming more constipated with the Imodium prompting stool softener administration with loose stool since at least 2-3 daily sometimes more with associated nausea with no emesis prompting eventual ED evaluation to be cautious. #1. Acute colitis, suspect infectious, possibly viral with recent issues with intermittent constipation and now diarrhea status post recent self administration of bowel regimen: Will admit to medical surgical floor, maintain on judicious hydration, monitor I&Os, allow clears as long as abdominal discomfort is lessened, maintain on IV PPI, will have pain regimen antiemetic regimen, will obtain C. difficile and enteric pathogen be cautious, will initiate on IV Zosyn therapy pending further workup, procalcitonin requested, will judiciously use preparation H supp for rectal discomfort x trial of 6 doses. PT/OT/case management consulted for discharge planning. If not improving may consider GI involvement. #2. Nonsustained VT: Status post pacemaker placement, following with cardiology, per most recent cardiology note noted 03/31/2024 has had various alterations to his metoprolol dosing, encourage continued follow-up with cardiology as previously arranged. #3. PAF: Will continue patient home Eliquis and metoprolol regimen with hold parameters as needed. #4. Chronic Kidney Disease Stage III, unclear subtype per GFR trend: Admission BUN/Cr 20/1.46, GFR 46, baseline renal function primarily 1.2-1.4, stable, repeat BMP in AM, per record following with echocardiograph tech Dr. Shaila Haq. #5. Chronic normocytic anemia: Admission hemoglobin 12.8, MCV 90.2, baseline hemoglobin vacillates from mid 12-13 range primarily, continue to trend #6. Chronic total hyperbilirubinemia, unclear specific etiology: Admission CMP with total bilirubin 2.12, AST/LT 24/19, alk phos 142, stable compared to previous baseline, continue to trend. #7. Diabetes mellitus type II: Hold oral home regimen, given presentation will temporally maintain on clears with advance diet as tolerated ADA diet once appropriate, maintain on accu checks w/ ISS. #8. Known aortic aneurysm without rupture: Following with cardiology, last visit as noted 03/31/2024, continue hypertensive regimen with alteration temporarily as noted. #9. Hypertension: Will continue patient home metoprolol, losartan, amlodipine with hold parameters as needed, temporally holding diuretic given recent GI losses, add back once appropriate, as needed IV hydralazine. #10. Hypothyroidism: Will continue patient on levothyroxine regimen. #11. Hyperlipidemia: Continue patient on statin therapy. #12. GERD: Will maintain on IV PPI until improving as noted above. #13. CHEO: Given noted nausea will hold CPAP until resolved. #14. DVT prophylaxis: Will continue patient on apixaban regimen. #15. CODE status: Patient JANNA is his daughter and living will is currently in place. Discussed CODE status at length including difference between FULL code, DNR-CCA and DNR-CC status. Following discussions about the differences in these status, requested DNR-CCA with intubation following several examples. Advanced Care Planning Face to Face Time: 16 minutes. Charges/Coding Visit Charges Inpatient E&M: 33664 Init Hosp L3 Procedures Hospitalists Procedures: 72168 Advncd Care Plan 30 Min
[2024-11-11 22:28] VITALS: BMI 28.7
[2024-11-11] MEDS: Ceftriaxone 1 GM/50 ML BAG IV (22:28)
[2024-11-11 22:34] VITALS: BP 160/85; PULSE 59; RESP 26; TEMP 36.6; O2SAT 97
--- OUTSIDE RECORDS SUMMARY | 2024-11-11 23:03 | XMS RPT_ITS | CCD ---
Author Organization [facility] Care Team Providers Care Foreign Exchange Services Manager Name Role Phone Chato Chelsy Berry Unavailable Karen RN, Annalisa Maradiaga Unavailable Unavailable Chelsy Reis Unavailable Dr. Bernard Nugent Chi Primary Care Provider MD Harsh Rincon Emergency Provider Dr. Charanjit Kennedy Admit Provider Dr. Charanjit Kennedy Attending Provider Dr. Charanjit Kennedy Other Provider Dr. Bernard Nugent Chi Primary Care Provider Dr. Alana Conklin Attending Provider Dr. Renzo Damon Attending Provider Dr. Renzo Damon Other Provider Dr. Bernard Nugent Chi Referring Provider Roof [employer], [employer]-Jean Paul Clayton Attending Provider Dr. Roger Gonzalez Emergency Provider Dr. Maynor Duran Admit Provider Dr. Maynor Duran Attending Provider Dr. Maynor Duran Other Provider Dr. Alana Conklin Other Provider Irene CAMPOS, ANDRES Storey Attending Provider Dr. Bernard Nugent Chi Primary Care Provider Dr. Tam Albrecht Attending Provider Dr. Salvatore Lyman Attending Provider [phone] Raffi, Dr. Bernard Reardon Primary Care Provider Raffi, Dr. Bernard Reardon Referring Provider [employer]of [employer], [employer]-C Evin Clayton Attending Provider Dr. Roger Gonzalez Emergency Provider Roger, Dr. Mcguire Admit Provider Roger, Dr. Mcguire Attending Provider Roger, Dr. Mcguire Other Provider [facility], Dr. Warner Other Provider Irene CAMPOS, PA Muriel Storey Attending Provider Dr. Tam Albrecht Attending Provider [phone] Dr. Salvatore Lyman Attending Provider [phone]([facility])[phone] Raffi, Dr. Bernard Reardon Primary Care Provider Raffi, Dr. Bernard Reardon Referring Provider [employer]of [employer], [employer]-Jean Paul Clayton Attending Provider Raffi, Dr. Beranrd Reardon Primary Care Provider Raffi, Dr. Bernard Reardon Referring Provider Roof [employer], [employer]-C Evin Clayton Attending Provider Dr. Rodolfo Tobias Attending Provider [phone] Rodolfo Tobias Referring Provider [phone] Rodolfo Tobias Other Provider Raffi, Dr. Bernard Reardon Primary Care Provider Raffi, Dr. Bernard Reardon Referring Provider Jacqui Bell Attending Provider Unavailable Raffi, Dr. Bernard Reardon Primary Care Provider Raffi, Dr. Bernard Reardon Referring Provider Jacqui Bell Attending Provider Unavailable Jatinder, Dr. Reynolds Attending Provider [phone] Jatinder, Dr. Reynolds Referring Provider [phone] Raffi, Dr. Bernard Reardon Primary Care Provider Raffi, Dr. Bernard Reardon Referring Provider Jacqui Bell Attending Provider Unavailable Roof [employer], [employer]-Jean Paul Clayton Attending Provider Raffi, Dr. Bernard Reardon Primary Care Provider Raffi, Dr. Bernard Reardon Referring Provider Roof [employer], [employer]-Jean Paul Clayton Attending Provider Jatinder, Dr. Reynolds [...] Dr. Bernard Reardon Referring Provider Irene CAMPOS, PA Muriel Storey Attending Provider Dr. Salvatore Lyman Attending Provider [phone] Raffi AZEVEDO, Dr. Bernard Reardon Primary Care Provider Raffi AZEVEDO, Dr. Bernard Reardon Referring Provider Dr. Rodolfo Tobias MD Attending Provider Raffi AZEVEDO, Dr. Bernard Reardon Attending Provider Jatinder AZEVEDO, Dr. Reynolds Referring Provider Dr. Salvatore Hightower DO Attending Provider [phone] Salvatore Hightoewr DO Referring Provider Dr. Salvatore Hightower DO Emergency Provider Raffi AZEVEDO, Dr. Bernard Reardon Primary Care Provider Raffi AZEVEDO, Dr. Bernard Reardon Attending Provider Raffi AZEVEDO, Dr. Bernard Reardon Referring Provider Jatinder AZEVEDO, Dr. Reynolds Attending Provider [phone] Jatinder AZEVEDO, Dr. Reynolds Referring Provider [phone] Campbell FALCON, Dr. Chase Attending Provider Campbell FALCON, Dr. Chase Referring Provider Campbell FALCON, Dr. Chase Emergency Provider Raffi AZEVEDO, Dr. Bernard Reardon Primary Care Provider Raffi AZEVEDO, Dr. Bernard Reardon Attending Provider Raffi AZEVEDO, Dr. Bernard Reardon Referring Provider Jatinder AZEVEDO, Dr. Reynolds Attending Provider [phone] Jatinder AZEVEDO, Dr. Reynolds Referring Provider [phone] Raffi AZEVEDO, Dr. Bernard Reardon Primary Care Provider Raffi, Bernard Chi Primary Care Unavailable Raffi, Bernard Chi Attending Unavailable Raffi, Bernard Chi Referring Unavailable Raffi, Bernard Chi Attending Unavailable Raffi, Bernard Chi Referring Unavailable Raffi, Bernard Chi Primary Care Unavailable Raffi, Bernard Chi Primary Care Unavailable Raffi, Bernard Chi Attending Unavailable Raffi, Bernard Chi Attending Unavailable Raffi, Bernard Chi Primary Care Unavailable Raffi, Bernard Chi Primary Care Unavailable Rogelio Tobiasril Referring Unavailable Rogelio Tobiasril Attending Unavailable Raffi, Bernard Chi Attending Unavailable Raffi, Bernard Chi Referring Unavailable Raffi, Bernard Chi Primary Care Unavailable Raffi, Bernard Chi Primary Care Unavailable Shaila Haq Attending Unavailable Raffi, Bernard Chi Referring Unavailable Raffi, Bernard Chi Attending Unavailable Raffi, Bernard Chi Primary Care Unavailable Raffi, Bernard Chi Primary Care Unavailable Raffi, Bernard Chi Referring Unavailable Raffi, Bernard Chi Attending Unavailable Raffi, Bernard Chi Primary Care Unavailable Bhavya Panda Attending Unavailable Raffi, Bernard Chi Attending Unavailable Raffi, Bernard Chi Primary Care Unavailable Raffi, Bernard Chi Primary Care Unavailable JatinderRogelioRodolfo Attending Unavailable Jatinder, [place] Referring Unavailable Raffi, Bernard Chi Referring Unavailable Raffi, Bernard Chi Attending Unavailable Raffi, Bernard Chi Primary Care Unavailable Raffi, Bernard Chi Primary Care Unavailable Raffi, Bernard Chi Referring Unavailable Raffi, Bernard Chi Attending Unavailable Raffi, Bernard Chi Attending Unavailable Raffi, Bernard Chi Referring Unavailable Raffi, Bernard Chi Primary Care Unavailable Raffi, Bernard Chi Primary Care Unavailable Schwiger, Salvatore Referring Unavailable Schwiger, Salvatore Attending Unavailable Raffi, Bernard Chi Attending Unavailable Raffi, Bernard Chi Primary Care Unavailable Raffi, Bernard Chi Primary Care Unavailable Jatinder, [place] Attending Unavailable Jatinder, Rodolfo Referring Unavailable Raffi, Bernard Chi Referring Unavailable Raffi, Bernard Chi Primary Care Unavailable Jatinder, Rodolfo Attending Unavailable Raffi, Bernard Chi Attending Unavailable Raffi, Bernard Chi Referring Unavailable Raffi, Bernard Chi Primary Care Unavailable Raffi, Bernard Chi Attending Unavailable Raffi, Bernard Chi Referring Unavailable Raffi, Bernard Chi Primary Care Unavailable Allergies Allergy Classification Reported Allergen(s) Allergy Type Date of Onset Reaction(s) Facility (20 sources) codeine; Translations: [CODEINE] drug allergy 2 [facility], Other [facility] Work Phone: Comment on above: HALLUCINATIONS (3 sources) Losartan Drug Allergy 2 COUGH [facility] Work Phone: (20 sources) Lisinopril Drug Allergy 2 Other [facility] (1 source) Lisinopril Drug Allergy 5 [facility] Repository Medications Current Medications Medication Drug Class(es) Dates Sig (Normalized) Sig (Original) amLODIPine 5 mg oral tablet (8 sources) Dihydropyridine Calcium Channel Juvencio Start: 03-31-2024 [...] S One tablet by mouth daily GLIMEPIRIDE [id number] Rodolfo Tobias MD levothyroxine sodium 0.025 mg oral tablet (4 sources) l-Thyroxine Start: 02-20-2024 take 1 tablet [...] mg tablet Discontinued 100 mg PO DAILY January 24, 2022 1:26pm June 19, 2022 11:59am pantoprazole 40 mg delayed release oral tablet (4 sources) Proton Pump Inhibitor Start: 03-31-2024 take [...] 40 MG TABS as directed PRAVASTATIN SODIUM [id number] Tj Boswell Completed/Discontinued Medications Medication Drug Class(es) Dates Sig (Normalized) Sig (Original) OXYCODONE-ACETAMIN OPHEN (6 sources) Opioid Agonist Start: 11-05-2014 End: 11-09-2014 take 1-2 tablets by mouth every four hours as needed PERCOCET 5-325 MG TABS 1-2 tablets by mouth every 4 hours as needed OXYCODONE-ACETAMINO PHEN [id number] Annalisa Jones RN Start: 11-05-2014 take 1-2 tablets by mouth every four hours as needed PERCOCET 5-325 MG TABS 1-2 tablets by mouth every 4 hours as needed OXYCODONE-ACETAMINOPHEN [id number] Annalisa Jones RN Start: 11-05-2014 End: 11-09-2014 take 1-2 tablets by mouth every four hours as needed PERCOCET 5-325 MG TABS 1-2 tablets by mouth every 4 hours as needed OXYCODONE-ACETAMINOPHEN [id number] Muriel Bonilla PA-C apixaban 2.5 mg oral [...] TABS One tablet by mouth daily ASPIRIN [id number] Rodolfo Tobias MD Start: 05-26-2014 take 1 tablet by valeriy th once daily ASPIRIN 81 MG TABS One tablet by mouth daily ASPIRIN [id number] Rodolfo Tobias MD cholecalciferol 0.025 mg oral [...] 12:40pm docusate sodium 50 mg / sennosides, intermediate 8.6 mg oral tablet (20 sources) Start: 12-22-2021 End: 06-19-2022 Sennosides-Docusate Sodium (Stool Softener-Stimulant Laxat) 8.6-50 mg Tablet Discontinued 2 {tbl} PO TWICE DAILY NEEDED as needed for Constipation 0 December 22, 2021 12:00am June 19, 2022 11:59am Tnfk-qko-vckxdxx empagliflozin 10 mg oral tablet (16 sources) Sodium-Glucose Cotransporter 2 Inhibitor Start: 08-16-2022 [...] 1/2 tablet by mouth daily LOSARTAN POTASSIUM-HCTZ [id number] Rodolfo Tobias MD Start: 12-30-2013 LOSARTAN POTAS SIUM-HCTZ 100-12.5 MG TABS as directed LOSARTAN POTASSIUM-HCTZ [id number] Tj Boswell magnesium oxide 400 mg oral tablet (20 sources) Start: 12-22-2021 End: 01-24-2022 take 1 tablet by mouth twice daily Magnesium Oxide 400 mg magnesium tablet Discontinued 400 mg PO TWICE A DAY December 22, 2021 12:00am January 24, 2022 1:10pm Follow-up set of magnesium after 4 days melatonin 5 mg oral tablet (16 sources) Start: 08-16-2022 End: 11-11-2023 take 1 [...] am, 500 mg at bedtime METFORMIN HCL [id number] Rodolfo Tobias MD metoprolol tartrate 25 mg [...] Succinate Di scontinued 50 MG PO daily October 20, 2018 4:29pm January [...] uth once daily TOPROL XL 50 MG [id number] Two tablets by mouth daily METOPROLOL SUCCINATE [id number] Rodolfo Tobias MD Start: 05-26-2014 take 1 tablet by mouth once da tiago TOPROL XL 100 MG [id number] One tablet by mouth daily METOPROLOL SUCCINATE [id number] Rodolfo Tobias MD Start: 05-26-2014 take 1 tablet by mouth once da tiago TOPROL XL 100 MG [id number] One tablet by mouth daily METOPROLOL SUCCINATE [id number] Rodolfo Tobias MD Start: 05-26-2014 take 2 tablets by mo uth once daily TOPROL XL 50 MG [id number] Two tablets by mouth daily METOPROLOL SUCCINATE [id number] Rodolfo Tobias MD Start: 05-26-2014 take 1 tablet by mouth once da tiago TOPROL XL 50 MG [id number] One tablet by mouth daily METOPROLOL SUCCINATE [id number] Rodolfo Tobias MD MULTIPLE VITAMINS-MINERALS (2 sources) Start: 12-30-2013 PRESERVISION A REDS TABS as directed MULTIPLE VITAMINS-MINERALS [id number] Tj Mo Elbert MULTIPLE VITAMINS-MINERALS (1 source) Start: 12-30-2013 PRESERVISION A REDS TABS as directed MULTIPLE VITAMINS-MINERALS [id number] Tj Mo Elbert Js-Og-Cx-Vit N-Ysmdy-Xdwx-Ze ax (20 sources) Start: 09-03-2016 End: 05-05-2019 Ty-Yk-Ve-Vit C-Bqawo-Fmpg-Ze ax Discontinued 1 EACH PO September 03, 2016 4:57pm May 05, 2019 3:43pm Start: 09-03-2016 End: 05-05-2019 Gs-Mf-Ul-Vit Z-Lpdxv-Tjvz-Ze ax Discontinued 1 EACH PO September 02, 2016 11:00pm May 05, 2019 2:43pm Start: 09-03-2016 End: 05-05-2019 Fn-Fg-Hm-Vit M-Jajbb-Flmi-Ze ax Discontinued 1 EACH PO September 03, 2016 12:00am May 05, 2019 3:43pm Pu-Na-Ti-Vit A-Tebqs-Zyvx-Ze ax 1 EACH tablet (4 sources) Start: 09-03-2016 End: 05-05-2019 Pu-Kq-Ag-Vit H-Yaxcw-Jheh-Ze ax 1 EACH tablet Discontinued 1 NMA PO September 03, 2016 12:00am May 05, 2019 3:43pm Start: 09-03-2016 End: 05-05-2019 Mt-Pk-Ro-Vit X-Zuilr-Hbkh-Ze ax 1 EACH tablet Discontinued 1 NMA PO September 02, 2016 11:00pm May 05, 2019 2:43pm omeprazole 20 mg delayed release oral capsule (20 sources) Proton Pump Inhibitor Start: 12-30-2013 End: 03-31-2024 take 1 capsule by mouth once daily Omeprazole 20 MG capsule Discontinued 20 mg PO DAILY September 19, 2014 12:00am March 31, 2024 12:45pm rivaroxaban 20 mg oral tablet (19 sources) Factor Xa Inhibitor Start: 04-30-2022 End: [...] Episodic/Chronic Aortic; peripheral; and visceral artery aneurysms (9 sources) Aortic aneurysm; Translations: [Aortic aneurysm of unspecified site, without rupture] 07-11-2023 Chronic Cardiac dysrhythmias (20 sources) Paroxysmal atrial fibrillation; Translations: [Persistent atrial fibrillation] Onset: 05-26-2014 05-26-2014 Chronic Cardiac dysrhythmias (20 sources) Tachycardia, unspecified; Translations: [Bradycardia] Onset: 05-25-2014 05-25-2014 Episodic Chronic kidney disease (20 sources) Chronic kidney disease stage 3; Translations: [Chronic renal insufficiency, stage III (moderate)] Chronic Chronic kidney disease (1 source) Chronic kidney disease; Translations: [Chronic kidney disease, stage 3a] Onset: 10-19-2024 Conduction disorders (20 sources) Left anterior fascicular block; Translations: [Right bundle branch block] Onset: 01-14-2017 01-14-2017 Chronic Diabetes mellitus with complications (1 source) Type 2 diabetes mellitus with diabetic nephropathy; Translations: [Type 2 diabetes mellitus with diabetic nephropathy] Onset: 10-19-2024 Chronic Diabetes mellitus without complication (3 sources) Diabetes mellitus; Translations: [Type 2 diabetes mellitus without complications] Onset: 05-25-2014 05-25-2014 Chronic Disorders of lipid metabolism (20 sources) Hyperlipidemia; Translations: [Hyperlipidemia, unspecified] Onset: 05-31-2014 05-31-2014 Chronic E Codes: Fall (6 sources) Fall; Translations: [Unspecified fall, initial encounter] Episodic Essential hypertension (20 sources) Hypertensive disorder; Translations: [Essential hypertension] Onset: 05-25-2014 05-25-2014 Chronic Heart valve disorders (20 sources) Tricuspid incompetence, non-rheumatic ; Translations: [Nonrheumatic tricuspid (valve) insufficiency] 12-31-2018 Chronic Nonmalignant breast conditions (20 sources) Breast lump; Translations: [Unspecified lump in the left breast, unspecified quadrant] Episodic Other and ill-defined heart disease (20 [...] Diarrhea; Translations: [Diarrhea, unspecified] 12-31-2018 Episodic Other gastrointestinal disorders (1 source) Diarrhea, unspecified; Translations: [Diarrhea, unspecified] Onset: 11-06-2024 Episodic Other injuries and conditions due to [...] Problem Classification Problem Date Documented Date Episodic/Chronic Fluid and electrolyte disorders (20 sources) Hyponatremia; Translations: [Hypo-osmolality and hyponatremia] Onset: 03-13-2024 Episodic Malaise and fatigue (20 sources) Asthenia; Translations: [Weakness] Onset: 05-29-2024 Episodic Open wounds of extremities (5 sources) Laceration of left lower leg; Translations: [Laceration without foreign body, left lower leg, initial encounter] Onset: 07-17-2024 07-11-2024 Episodic Other aftercare (2 sources) Long-term (current) [...] Test Name Value Interpretation Reference Range Facility CBC W/Diff, Automatedon 10-19 Absolute Lymph 0.95 X10 3/uL Normal 0.83-4.51 [facility] Comment on above: Performed By: #### L 100.0100, M100.7900 #### [facility] [address] [place], [address] Absolute Neut 9.3 X10 3/uL High 2.0-7.7 [facility] Comment on above: Performed By: #### L 100.0100, M100.7900 #### [facility] [address] [place], [address] Basophils/100 WBC (Bld) 0.3 % Normal 0-1 [facility] Comment on above: Performed By: #### L 100.0100, M100.7900 #### [facility] [address] [place], [address] Eosinophils/100 WBC (Bld) 0.8 % Normal 0-5 [facility] Comment on above: Performed By: #### L 100.0100, M100.7900 #### [facility] [address] [place], [address] Erythrocyte distribution width (RBC) [Ratio] 13.3 % Normal 11.6-14.6 [facility] Comment on above: Performed By: #### L 100.0100, M100.7900 #### [facility] [address] [place], [address] Hematocrit (Bld) [Volume fraction] 36.9 % Low 40-54 [facility] Comment on above: Performed By: #### L 100.0100, M100.7900 #### [facility] [address] [place], [address] Hemoglobin (Bld) [Mass/Vol] 12.8 g/dL Low 13.0-16.5 [facility] Comment on above: Performed By: #### L 100.0100, M100.7900 #### [facility] [address] [place], [address] IG% 0.600 Normal 0.0-0.9 [facility] Comment on above: Result Comment: IG% - Immature Granulocytes (promyelocytes, myelocytes and metamyelocytes) > 1% indicates that a LEFT SHIFT is Present. Performed By: #### L 100.0100, M100.7900 #### [facility] [address] [place], [address] Lymphocytes/100 WBC (Bld) 8.3 % Low 19-41 [facility] Comment on above: Performed By: #### L 100.0100, M100.7900 #### [facility] [address] [place], [address] MCH (RBC) [Entitic mass] 31.3 pg Normal 27.0-32.0 [facility] Comment on above: Performed By: #### L 100.0100, M100.7900 #### [facility] [address] [place], [address] MCHC (RBC) [Mass/Vol] 34.7 g/dL Normal 32-36 [facility] Comment on above: Performed By: #### L 100.0100, M100.7900 #### [facility] [address] [place], [address] MCV (RBC) [Entitic vol] 90.2 fL Normal 80-94 [facility] Comment on above: Performed By: #### L 100.0100, M100.7900 #### [facility] [address] [place], [address] Monocytes/100 WBC (Bld) 8.4 % Normal 0-[address] [facility] Comment on above: Performed By: #### L 100.0100, M100.7900 #### [facility] [address] [place], [address] Neutrophils/100 WBC (Bld) 81.6 % High 47-70 [facility] Comment on above: Performed By: #### L 100.0100, M100.7900 #### [facility] [address] [place], [address] Nucleated RBC (Bld) [#/Vol] 0 10*3/uL Normal 0-5 [facility] Comment on above: Performed By: #### L 100.0100, M100.7900 #### [facility] [address] [place], [address] Platelet mean volume (Bld) [Entitic vol] 11.0 fL Normal 6.2-12.0 [facility] Comment on above: Performed By: #### L 100.0100, M100.7900 #### [facility] [address] [place], [address] Platelets (Bld) [#/Vol] 211 10*3/uL Normal 150-450 [facility] Comment on above: Performed By: #### L 100.0100, M100.7900 #### [facility] [address] [place], [address] RBC (Bld) [#/Vol] 4.09 10*6/uL Low 4.6-6.2 [facility] Comment on above: Performed By: #### L 100.0100, M100.7900 #### [facility] [address] [place], [address] RDW SD 43.8 fl Normal 35.1-43.9 [facility] Comment on above: Performed By: #### L 100.0100, M100.7900 #### [facility] [address] [place], [address] WBC (Bld) [#/Vol] 11.4 10*3/uL High 4.4-11.0 [facility] Comment on above: Performed By: #### L 100.0100, M100.7900 #### [facility] [address] [place], [address] Stool Occult Blood iFOBon STOB Positive Normal [facility] Comment on above: Performed By: #### L 100.0100, M100.7900 #### [facility] [address] [place], [address] Urinalysis, Completeon 11-11 BILIRUBIN URINE Negative Normal Negative [facility] Comment on above: Order Comment: CLEAN CATCH Performed By: #### L 501.7300, L501.7400, L501.5500, L500.2500 #### [facility] [address] [place], [address] Clarity (U) Clear Normal Clear [facility] Comment on above: Order Comment: CLEAN CATCH Performed By: #### L 501.7300, L501.7400, L501.5500, L500.2500 #### [facility] [address] [place], [address] Color (U) Yellow Normal Yellow [facility] Comment on above: Order Comment: CLEAN CATCH Performed By: #### L 501.7300, L501.7400, L501.5500, L500.2500 #### [facility] [address] [place], [address] GLUCOSE, UR Normal Normal Normal [facility] Comment on above: Order Comment: CLEAN CATCH Performed By: #### L 501.7300, L501.7400, L501.5500, L500.2500 #### [facility] [address] [place], [address] KETONE UR Negative Normal Negative [facility] Comment on above: Order Comment: CLEAN CATCH Performed By: #### L 501.7300, L501.7400, L501.5500, L500.2500 #### [facility] [address] [place], [address] LEUK ESTERASE 25 /ul Abnormal Negative [facility] Comment on above: Order Comment: CLEAN CATCH Performed By: #### L 501.7300, L501.7400, L501.5500, L500.2500 #### [facility] [address] [place], [address] Nitrite Ql (U) Negative Normal Negative [facility] Comment on above: Order Comment: CLEAN CATCH Performed By: #### L 501.7300, L501.7400, L501.5500, L500.2500 #### [facility] [address] [place], [address] OCCULT BLOOD-UR 25 /ul Abnormal Negative [facility] Comment on above: Order Comment: CLEAN CATCH Performed By: #### L 501.7300, L501.7400, L501.5500, L500.2500 #### [facility] [address] [place], [address] pH UR 6.0 Normal 5.0 - 8.0 [facility] Comment on above: Order Comment: CLEAN CATCH Performed By: #### L 501.7300, L501.7400, L501.5500, L500.2500 #### [facility] [address] [place], [address] PROT DIPSTX 30 mg/dl Abnormal Negative [facility] Comment on above: Order Comment: CLEAN CATCH Performed By: #### L 501.7300, L501.7400, L501.5500, L500.2500 #### [facility] [address] [place], [address] SP.GR. DIPSTX 1.020 Normal 1.002-1.030 [facility] Comment on above: Order Comment: CLEAN CATCH Performed By: #### L 501.7300, L501.7400, L501.5500, L500.2500 #### [facility] [address] [place], [address] UROBILI 1 mg/dl Abnormal Normal [facility] Comment on above: Order Comment: CLEAN CATCH Performed By: #### L 501.7300, L501.7400, L501.5500, L500.2500 #### [facility] [address] [place], [address] Abdomen Single Viewon 2024 Abdomen Single View [facility] [address] [place] [address] Abdomen Single View MR#: [id number] Acct: [id number] Name: ASHIA PEREZ Rep #: [id number] : 1935 M 89 From: Ankit Judge MD PCP: Dr. Bernard Nugent MD Status: REG CLI Study: Abdomen Single View Date of Exam: 10/30/24 Exam# [id number] Ordering Dr: Bernard Nugent MD EXAM: XR Abdomen, 1 View CLINICAL INDICATION: DIARRHEA TECHNIQUE: Frontal supine view of the abdomen/pelvis. COMPARISON: No relevant prior studies available. FINDINGS: GASTROINTESTINAL TRACT: Fecal retention in the colon consistent with constipation. No dilation. BONES/JOINTS: Unremarkable. No acute fracture. RAD/Abdomen Single View IMPRESSION: Fecal retention in the colon consistent with constipation. Reading Location: [facility] CC: Dr. Bernard Nugent MD [employer]: Signed Normal [facility] Absolute lymphocyte countOrd ered By: Bernard Nugent on 10-30-2024 Lymphocytes Auto (Unsp spec) [#/Vol] 0.94 10*3/uL 0.83-4.51 [facility] Absolute neutrophil countOrd ered By: Bernadr Nugent on 10-30-2024 Neutrophils (Bld) [#/Vol] 9.0 10*3/uL High 2.0-7.7 [facility] Anion gap in Serum or Plasma Ordered By: Bernard Nugent on 10-30-2024 Anion gap [Moles/Vol] 10 mmol/L 5-15 [facility] Automated lymphocyte count a s percentage of total leukocytesOrdered By: Bernard Nugent on 10-30-2024 Lymphocytes/100 WBC Auto (Unsp spec) 8.4 % Low 19-41 [facility] BUN/creatinine ratioOrdered By: Bernard Nugent on 10-30-2024 Urea nitrogen/Creatinine [Mass ratio] 10.8 mg/mg 10-20 [facility] Basophil percentageOrdered B y: Bernard Nugent on 10-30-2024 Basophils/100 WBC (Bld) 0.7 % 0-1 [facility] Bilirubin, totalOrdered By: Bernard Nugent on 10-30-2024 Bilirubin [Mass/Vol] 2.53 mg/dL High 0.00-1.30 [facility] CBC W/Diff, Automatedon 10-18 Absolute Lymph 0.94 X10 3/uL Normal 0.83-4.51 [facility] Comment on above: Performed By: #### L 501.7300, L501.7400, L501.5500, L500.2500 #### [facility] [address] [place], [address] Absolute Neut 9.0 X10 3/uL High 2.0-7.7 [facility] Comment on above: Performed By: #### L 501.7300, L501.7400, L501.5500, L500.2500 #### [facility] [address] [place], [address] Basophils/100 WBC (Bld) 0.7 % Normal 0-1 [facility] Comment on above: Performed By: #### L 501.7300, L501.7400, L501.5500, L500.2500 #### [facility] [address] [place], [address] Eosinophils/100 WBC (Bld) 1.3 % Normal 0-5 [facility] Comment on above: Performed By: #### L 501.7300, L501.7400, L501.5500, L500.2500 #### [facility] [address] [place], [address] Erythrocyte distribution width (RBC) [Ratio] 13.2 % Normal 11.6-14.6 [facility] Comment on above: Performed By: #### L 501.7300, L501.7400, L501.5500, L500.2500 #### [facility] [address] [place], [address] Hematocrit (Bld) [Volume fraction] 37.8 % Low 40-54 [facility] Comment on above: Performed By: #### L 501.7300, L501.7400, L501.5500, L500.2500 #### [facility] [address] [place], [address] Hemoglobin (Bld) [Mass/Vol] 13.2 g/dL Normal 13.0-16.5 [facility] Comment on above: Performed By: #### L 501.7300, L501.7400, L501.5500, L500.2500 #### [facility] [address] [place], [address] IG% 0.500 Normal 0.0-0.9 [facility] Comment on above: Result Comment: IG% - Immature Granulocytes (promyelocytes, myelocytes and metamyelocytes) > 1% indicates that a LEFT SHIFT is Present. Performed By: #### L 501.7300, L501.7400, L501.5500, L500.2500 #### [facility] [address] [place], [address] Lymphocytes/100 WBC (Bld) 8.4 % Low 19-41 [facility] Comment on above: Performed By: #### L 501.7300, L501.7400, L501.5500, L500.2500 #### [facility] [address] [place], [address] MCH (RBC) [Entitic mass] 31.6 pg Normal 27.0-32.0 [facility] Comment on above: Performed By: #### L 501.7300, L501.7400, L501.5500, L500.2500 #### [facility] [address] [place], [address] MCHC (RBC) [Mass/Vol] 34.9 g/dL Normal 32-36 [facility] Comment on above: Performed By: #### L 501.7300, L501.7400, L501.5500, L500.2500 #### [facility] [address] [place], [address] MCV (RBC) [Entitic vol] 90.4 fL Normal 80-94 [facility] Comment on above: Performed By: #### L 501.7300, L501.7400, L501.5500, L500.2500 #### [facility] [address] [place], [address] Monocytes/100 WBC (Bld) 8.2 % Normal 0-10 [facility] Comment on above: Performed By: #### L 501.7300, L501.7400, L501.5500, L500.2500 #### [facility] [address] [place], [address] Neutrophils/100 WBC (Bld) 80.9 % High 47-70 [facility] Comment on above: Performed By: #### L 501.7300, L501.7400, L501.5500, L500.2500 #### [facility] [address] [place], [address] Nucleated RBC (Bld) [#/Vol] 0 10*3/uL Normal 0-5 [facility] Comment on above: Performed By: #### L 501.7300, L501.7400, L501.5500, L500.2500 #### [facility] [address] [place], [address] Platelet mean volume (Bld) [Entitic vol] 10.9 fL Normal 6.2-12.0 [facility] Comment on above: Performed By: #### L 501.7300, L501.7400, L501.5500, L500.2500 #### [facility] [address] [place], [address] Platelets (Bld) [#/Vol] 250 10*3/uL Normal 150-450 [facility] Comment on above: Performed By: #### L 501.7300, L501.7400, L501.5500, L500.2500 #### [facility] [address] [place], [address] RBC (Bld) [#/Vol] 4.18 10*6/uL Low 4.6-6.2 [facility] Comment on above: Performed By: #### L 501.7300, L501.7400, L501.5500, L500.2500 #### [facility] [address] [place], [address] RDW SD 43.7 fl Normal 35.1-43.9 [facility] Comment on above: Performed By: #### L 501.7300, L501.7400, L501.5500, L500.2500 #### [facility] [address] [place], [address] WBC (Bld) [#/Vol] 11.2 10*3/uL High 4.4-11.0 [facility] Comment on above: Performed By: #### L 501.7300, L501.7400, L501.5500, L500.2500 #### [facility] [address] [place] [place], [address] Carbon dioxide, total [Moles /volume] in Central venous bloodOrdered By: Bernard Nugent on 10-30-2024 CO2 [Moles/Vol] 21.1 mmol/L 21.0-32.0 [facility] Chloride assayOrdered By: Vick Nugent on 10-30-2024 Chloride [Moles/Vol] 100 mmol/L 98-108 [facility] Comprehensive Metabolic Prof ilon 10-30-2024 Albumin [Mass/Vol] 3.7 g/dL Normal 3.4-4.8 [facility] Comment on above: Performed By: #### L 501.7300, L501.7400, L501.5500, L500.2500 #### [facility] [address] [place], [address] Albumin/Globulin [Mass ratio] 1.2 {ratio} Normal 0.9-2.4 [facility] Comment on above: Performed By: #### L 501.7300, L501.7400, L501.5500, L500.2500 #### [facility] [address] [place], [address] ALK PHOS 147 U/L High 40-129 [facility] Comment on above: Performed By: #### L 501.7300, L501.7400, L501.5500, L500.2500 #### [facility] [address] [place], [address] ALT [Catalytic activity/Vol] 20 U/L Normal <=46 [facility] Comment on above: Performed By: #### L 501.7300, L501.7400, L501.5500, L500.2500 #### [facility] [address] [place], [address] AST [Catalytic activity/Vol] 25 U/L Normal <=37 [facility] Comment on above: Result Comment: Hemo lysis present, Results??could be affected. ?? Performed By: #### L 501.7300, L501.7400, L501.5500, L500.2500 #### [facility] [address] [place], [address] Bilirubin [Mass/Vol] 2.53 mg/dL High 0.00-1.30 [facility] Comment on above: Performed By: #### L 501.7300, L501.7400, L501.5500, L500.2500 #### [facility] [address] [place], [address] BUN/CRE 10.8 RATIO Normal 10-20 [facility] Comment on above: Performed By: #### L 501.7300, L501.7400, L501.5500, L500.2500 #### [facility] [address] [place], [address] Calcium [Mass/Vol] 8.7 mg/dL Normal 7.6-11.0 [facility] Comment on above: Performed By: #### L 501.7300, L501.7400, L501.5500, L500.2500 #### [facility] [address] [place], [address] Chloride [Moles/Vol] 100 mmol/L Normal 98-108 [facility] Comment on above: Performed By: #### L 501.7300, L501.7400, L501.5500, L500.2500 #### [facility] [address] [place], [address] CO2 [Moles/Vol] 21.1 mmol/L Normal 21.0-32.0 [facility] Comment on above: Performed By: #### L 501.7300, L501.7400, L501.5500, L500.2500 #### [facility] [address] [place], [address] Creatinine [Mass/Vol] 1.41 mg/dL High 0.70-1.20 [facility] Comment on above: Performed By: #### L 501.7300, L501.7400, L501.5500, L500.2500 #### [facility] [address] [place], [address] GAP 10 Normal 5-15 [facility] Comment on above: Performed By: #### L 501.7300, L501.7400, L501.5500, L500.2500 #### [facility] [address] [place], [address] GFR/1.73 sq M.predicted among non-blacks MDRD (S/P/Bld) [Vol rate/Area] 48 mL/min/{1.73_m2} Low >60 [facility] Comment on above: Result Comment: mL/m in/1.73m2 CKD-EPI Creatinine Equation (2020) Performed By: #### L 501.7300, L501.7400, L501.5500, L500.2500 #### [facility] [address] [place], [address] Globulin (S) [Mass/Vol] 3.1 g/dL Normal 2.2-4.[address] [facility] Comment on above: Performed By: #### L 501.7300, L501.7400, L501.5500, L500.2500 #### [facility] [address] [place], [address] Glucose [Mass/Vol] 150 mg/dL High 70-99 [facility] Comment on above: Performed By: #### L 501.7300, L501.7400, L501.5500, L500.2500 #### [facility] [address] [place], [address] Potassium [Moles/Vol] 4.3 mmol/L Normal 3.3-5.1 [facility] Comment on above: Result Comment: Hemo lysis present, Results??could be affected. ?? Performed By: #### L 501.7300, L501.7400, L501.5500, L500.2500 #### [facility] [address] [place], [address] Sodium [Moles/Vol] 130 mmol/L Low 133-145 [facility] Comment on above: Performed By: #### L 501.7300, L501.7400, L501.5500, L500.2500 #### [facility] [address] [place], [address] T PROT 6.8 g/dL Normal 5.9-8.4 [facility] Comment on above: Performed By: #### L 501.7300, L501.7400, L501.5500, L500.2500 #### [facility] [address] [place], [address] Urea nitrogen [Mass/Vol] 15 mg/dL Normal 4-19 [facility] Comment on above: Performed By: #### L 501.7300, L501.7400, L501.5500, L500.2500 #### [facility] [address] [place], [address] Eosinophil percentageOrdered By: Bernard Raffi on 10-30-2024 Eosinophils/100 WBC (Bld) 1.3 % 0-5 [facility] Erythrocyte distribution wid th ratioOrdered By: [facility] on 10-[facility]-2024 Erythrocyte distribution width (RBC) [Ratio] 13.2 % 11.6-14.6 [facility] Erythrocyte distribution wid th standard deviationOrdered By: [facility] on 10-30-2024 Erythrocyte distribution width (RBC) [Ratio] 43.7 fl 35.1-43.9 [facility] Glomerular filtration rate ( GFR) estimation/1.73 sq m using serum, plasma, or whole bOrdered By: [facility] on 10-30-2024 GFR/1.73 sq M.predicted among non-blacks MDRD (S/P/Bld) [Vol rate/Area] 48 mL/min/{1.73_m2} Low >60 [facility] Comment on above: mL/min/1.73m2 CKD-EP I Creatinine Equation (2020) Hematocrit Auto (Bld) [Volum e fraction]Ordered By: Bernard Raffi 10-30-2024 Hematocrit (Bld) [Volume fraction] 37.8 % Low 40-54 [facility] Hemoglobin measurementOrdere d By: Bernard Raffi 10-30-2024 Hemoglobin (Bld) [Mass/Vol] 13.2 g/dL 13.0-16.5 [facility] Immature granulocytes/100 WB C Auto (Bld)Ordered By: Bernard Raffi 10-30-2024 Immature granulocytes/100 WBC (Bld) 0.500 % 0.0-0.9 [facility] Comment on above: IG% - Immature Granu locytes (promyelocytes, myelocytes and metamyelocytes) > 1% indicates that a LEFT SHIFT is Present. Laboratory - Chemistry and C hemistry - challengeOrdered By: [facility] 10-30-2024 AST [Catalytic activity/Vol] 25 U/L <38 [facility] Comment on above: Hemolysis present, R esults could be affected. MCV (mean corpuscular volume ) determinationOrdered By: Bernard Nugent on 10-30-2024 MCV (RBC) [Entitic vol] 90.4 fL 80-94 [facility] Magnesiumon 10-30-2024 Magnesium [Mass/Vol] 2.0 mg/dL Normal 1.5-2.2 [facility] Comment on above: Performed By: #### L 501.7300, L501.7400, L501.5500, L500.2500 #### [facility] [address] [place], [address] Magnesium measurement (mass/ volume)Ordered By: Bernard Nugent on 10-30-2024 Magnesium (Unsp spec) [Mass/Vol] 2.0 mg/dL 1.5-2.2 [facility] Mean corpuscular hemoglobin (MCH) determinationOrdered By: Bernard Nugent 10-30-2024 MCH (RBC) [Entitic mass] 31.6 pg 27.0-32.0 [facility] Mean corpuscular hemoglobin concentration (MCHC) determinationOrdered By: Bernard Nugent on 10-30-2024 MCHC (RBC) [Mass/Vol] 34.9 g/dL 32-36 [facility] Mean platelet volume determi nationOrdered By: Bernard Nugent on 10-30-2024 Platelet mean volume (Bld) [Entitic vol] 10.9 fL 6.2-12.0 [facility] Monocyte percentageOrdered B y: Bernard Nugent on 10-30-2024 Monocytes/100 WBC (Bld) 8.2 % 0-10 [facility] Neutrophil percentageOrdered By: Bernard Nugent on 10-30-2024 Neutrophils/100 WBC (Bld) 80.9 % High 47-70 [facility] Nucleated red blood cell per centageOrdered By: Bernard Nugent 10-30-2024 Nucleated RBC/100 WBC (Bld) [Ratio] 0 % 0-5 [facility] Phosphoruson 10-30-2024 Phosphate [Mass/Vol] 3.1 mg/dL Normal 2.7-4.5 [facility] Comment on above: Performed By: #### L 501.7300, L501.7400, L501.5500, L500.2500 #### [facility] [address] [place], [address] Platelet countOrdered By: Vick Nugent on 10-30-2024 Platelets (Bld) [#/Vol] 250 10*3/uL 150-450 [facility] Potassium measurement (mass/ volume)Ordered By: Bernard Nugent on 10-30-2024 Potassium (Unsp spec) [Mass/Vol] 4.3 mmol/L 3.3-5.1 [facility] Comment on above: Hemolysis present, R esults could be affected. RBC Auto (Bld) [#/Vol]Ordere d By: Bernard Nugent on 10-30-2024 RBC (Bld) [#/Vol] 4.18 10*6/uL Low 4.6-6.2 [facility] Serum creatinine measurement (mass/volume)Ordered By: Bernard Nugent on 10-30-2024 Creatinine [Mass/Vol] 1.41 mg/dL High 0.70-1.20 [facility] Serum globulin measurementOr dered By: Bernard Nugent 10-30-2024 Globulin (S) [Mass/Vol] 3.1 g/dL 2.2-4.2 [facility] Serum glucose measurement (m ass/volume)Ordered By: Bernard Nugent 10-30-2024 Glucose [Mass/Vol] 150 mg/dL High 70-99 [facility] Serum or plasma alanine erickson otransferase (ALT) measurementOrdered By: Bernard Nugent 10-30-2024 ALT [Catalytic activity/Vol] 20 U/L <47 [facility] Serum or plasma albumin sita urement (mass/volume)Ordered By: Bernard Nugent 10-30-2024 Albumin [Mass/Vol] 3.7 g/dL 3.4-4.8 [facility] Serum or plasma albumin/glob ulin mass ratioOrdered By: Bernard Nugent 10-30-2024 Albumin/Globulin [Mass ratio] 1.2 {ratio} 0.9-2.4 [facility] Serum or plasma alkaline florencia sphatase measurementOrdered By: Bernard Nugent 10-30-2024 ALP [Catalytic activity/Vol] 147 U/L High 40-129 [facility] Serum or plasma calcium sita urement (mass/volume)Ordered By: Bernard Nugent on 10-30-2024 Calcium [Mass/Vol] 8.7 mg/dL 7.6-11.0 [facility] Serum or plasma urea nitroge n measurement (mass/volume)Ordered By: Bernard Nugent 10-30-2024 Urea nitrogen [Mass/Vol] 15 mg/dL 4-19 [facility] Sodium levelOrdered By: Bernard Raffi on 10-30-2024 Sodium [Moles/Vol] 130 mmol/L Low 133-145 [facility] Total proteinOrdered By: Bernard Raffi on 10-30-2024 Protein [Mass/Vol] 6.8 g/dL 5.9-8.4 [facility] White blood cell (WBC) count Ordered By: Bernard Raffi on 10-30-2024 WBC (Bld) [#/Vol] 11.2 10*3/uL High 4.4-11.0 [facility] Absolute lymphocyte countOrd ered By: Bernard Raffi on 10-22-2024 Lymphocytes Auto (Unsp spec) [#/Vol] 0.95 10*3/uL 0.83-4.51 [facility] Absolute neutrophil countOrd ered By: Bernard Raffi on 10-22-2024 Neutrophils (Bld) [#/Vol] 9.8 10*3/uL High 2.0-7.7 [facility] Anion gap in Serum or Plasma Ordered By: Bernard Nugent on 10-22-2024 Anion gap [Moles/Vol] 13 mmol/L 5-15 [facility] Automated lymphocyte count a s percentage of total leukocytesOrdered By: Bernard Nugent on 10-22-2024 Lymphocytes/100 WBC Auto (Unsp spec) 7.8 % Low 19-41 [facility] BUN/creatinine ratioOrdered By: Bernard Nugent on 10-22-2024 Urea nitrogen/Creatinine [Mass ratio] 9.4 mg/mg Low 10-20 [facility] Basophil percentageOrdered B y: Bernard Nugent on 10-22-2024 Basophils/100 WBC (Bld) 0.6 % 0-[address] [facility] Bilirubin, totalOrdered By: Bernard Nugent on 10-22-2024 Bilirubin [Mass/Vol] 2.40 mg/dL High 0.00-1.30 [facility] CBC W/Diff, Automatedon Absolute Lymph 0.95 X10 3/uL Normal 0.83-4.51 [facility] Comment on above: Performed By: #### L 500.4100, L506.1001, L500.4050, L501.9985, L100.0100, L501.9520 #### [facility] [address] [place], [address] Absolute Neut 9.8 X10 3/uL High 2.0-7.7 [facility] Comment on above: Performed By: #### L 500.4100, L506.1001, L500.4050, L501.9985, L100.0100, L501.9520 #### [facility] [address] [place], [address] Basophils/100 WBC (Bld) 0.6 % Normal 0-1 [facility] Comment on above: Performed By: #### L 500.4100, L506.1001, L500.4050, L501.9985, L100.0100, L501.9520 #### [facility] [address] [place], [address] Eosinophils/100 WBC (Bld) 1.8 % Normal 0-5 [facility] Comment on above: Performed By: #### L 500.4100, L506.1001, L500.4050, L501.9985, L100.0100, L501.9520 #### [facility] [address] [place], [address] Erythrocyte distribution width (RBC) [Ratio] 13.2 % Normal 11.6-14.6 [facility] Comment on above: Performed By: #### L 500.4100, L506.1001, L500.4050, L501.9985, L100.0100, L501.9520 #### [facility] [address] [place], [address] Hematocrit (Bld) [Volume fraction] 38.4 % Low 40-54 [facility] Comment on above: Performed By: #### L 500.4100, L506.1001, L500.4050, L501.9985, L100.0100, L501.9520 #### [facility] [address] [place], [address] Hemoglobin (Bld) [Mass/Vol] 13.3 g/dL Normal 13.0-16.5 [facility] Comment on above: Performed By: #### L 500.4100, L506.1001, L500.4050, L501.9985, L100.0100, L501.9520 #### [facility] [address] [place], [address] IG% 1.000 High 0.0-0.9 [facility] Comment on above: Result Comment: IG% - Immature Granulocytes (promyelocytes, myelocytes and metamyelocytes) > 1% indicates that a LEFT SHIFT is Present. Performed By: #### L 500.4100, L506.1001, L500.4050, L501.9985, L100.0100, L501.9520 #### [facility] [address] [place], [address] Lymphocytes/100 WBC (Bld) 7.8 % Low 19-41 [facility] Comment on above: Performed By: #### L 500.4100, L506.1001, L500.4050, L501.9985, L100.0100, L501.9520 #### [facility] [address] [place], [address] MCH (RBC) [Entitic mass] 31.1 pg Normal 27.0-32.0 [facility] Comment on above: Performed By: #### L 500.4100, L506.1001, L500.4050, L501.9985, L100.0100, L501.9520 #### [facility] [address] [place], [address] MCHC (RBC) [Mass/Vol] 34.6 g/dL Normal 32-36 [facility] Comment on above: Performed By: #### L 500.4100, L506.1001, L500.4050, L501.9985, L100.0100, L501.9520 #### [facility] [address] [place], [address] MCV (RBC) [Entitic vol] 89.7 fL Normal 80-94 [facility] Comment on above: Performed By: #### L 500.4100, L506.1001, L500.4050, L501.9985, L100.0100, L501.9520 #### [facility] [address] [place], [address] Monocytes/100 WBC (Bld) 9.0 % Normal 0-[address] [facility] Comment on above: Performed By: #### L 500.4100, L506.1001, L500.4050, L501.9985, L100.0100, L501.9520 #### [facility] [address] [place], [address] Neutrophils/100 WBC (Bld) 79.8 % High 47-70 [facility] Comment on above: Performed By: #### L 500.4100, L506.1001, L500.4050, L501.9985, L100.0100, L501.9520 #### [facility] [address] [place], [address] Nucleated RBC (Bld) [#/Vol] 0 10*3/uL Normal 0-5 [facility] Comment on above: Performed By: #### L 500.4100, L506.1001, L500.4050, L501.9985, L100.0100, L501.9520 #### [facility] [address] [place], [address] Platelet mean volume (Bld) [Entitic vol] 10.6 fL Normal 6.2-12.0 [facility] Comment on above: Performed By: #### L 500.4100, L506.1001, L500.4050, L501.9985, L100.0100, L501.9520 #### [facility] [address] [place], [address] Platelets (Bld) [#/Vol] 285 10*3/uL Normal 150-450 [facility] Comment on above: Performed By: #### L 500.4100, L506.1001, L500.4050, L501.9985, L100.0100, L501.9520 #### [facility] [address] [place], [address] RBC (Bld) [#/Vol] 4.28 10*6/uL Low 4.6-6.2 [facility] Comment on above: Performed By: #### L 500.4100, L506.1001, L500.4050, L501.9985, L100.0100, L501.9520 #### [facility] [address] [place], [address] RDW SD 43.7 fl Normal 35.1-43.9 [facility] Comment on above: Performed By: #### L 500.4100, L506.1001, L500.4050, L501.9985, L100.0100, L501.9520 #### [facility] [address] [place], [address] WBC (Bld) [#/Vol] 12.2 10*3/uL High 4.4-11.0 [facility] Comment on above: Performed By: #### L 500.4100, L506.1001, L500.4050, L501.9985, L100.0100, L501.9520 #### [facility] [address] [place], [address] Calculated very low density lipoprotein (VLDL) cholesterol measurementOrdered By: Bernard Nugent on 10-22-2024 Calculated very low density lipoprotein (VLDL) cholesterol measurement 12 mg/dL 5-40 [facility] Carbon dioxide, total [Moles /volume] in Central venous bloodOrdered By: Bernard Nugetn on 10-22-2024 CO2 [Moles/Vol] 21.3 mmol/L 21.0-32.0 [facility] Chloride assayOrdered By: Vick Nugent on 10-22-2024 Chloride [Moles/Vol] 97 mmol/L Low 98-108 [facility] Comprehensive Metabolic Prof ilon 10-22-2024 Albumin [Mass/Vol] 3.8 g/dL Normal 3.4-4.8 [facility] Comment on above: Performed By: #### L 100.0100, M100.7900 #### [facility] [address] [place], [address] Albumin/Globulin [Mass ratio] 1.4 {ratio} Normal 0.9-2.4 [facility] Comment on above: Performed By: #### L 100.0100, M100.7900 #### [facility] [address] [place], [address] ALK PHOS 174 U/L High 40-129 [facility] Comment on above: Performed By: #### L 100.0100, M100.7900 #### [facility] [address] [place], [address] ALT [Catalytic activity/Vol] 18 U/L Normal <=46 [facility] Comment on above: Performed By: #### L 100.0100, M100.7900 #### [facility] [address] [place], [address] AST [Catalytic activity/Vol] 21 U/L Normal <=37 [facility] Comment on above: Performed By: #### L 100.0100, M100.7900 #### [facility] [address] [place], [address] Bilirubin [Mass/Vol] 2.40 mg/dL High 0.00-1.30 [facility] Comment on above: Performed By: #### L 100.0100, M100.7900 #### [facility] [address] [place], [address] BUN/CRE 9.4 RATIO Low 10-20 [facility] Comment on above: Performed By: #### L 100.0100, M1.7900 #### [facility] [address] [place], [address] Calcium [Mass/Vol] 8.7 mg/dL Normal 7.6-11.0 [facility] Comment on above: Performed By: #### L 100.0100, M100.7900 #### [facility] [address] [place], [address] Chloride [Moles/Vol] 97 mmol/L Low 98-108 [facility] Comment on above: Performed By: #### L 100.0100, M1.7900 #### [facility] [address] [place], [address] CO2 [Moles/Vol] 21.3 mmol/L Normal 21.0-32.0 [facility] Comment on above: Performed By: #### L 100.0100, M100.7900 #### [facility] [address] [place], [address] Creatinine [Mass/Vol] 1.22 mg/dL High 0.70-1.20 [facility] Comment on above: Performed By: #### L 100.0100, M100.7900 #### [facility] [address] [place], [address] GAP 13 Normal 5-15 [facility] Comment on above: Performed By: #### L 100.0100, M100.7900 #### [facility] [address] [place], [address] GFR/1.73 sq M.predicted among non-blacks MDRD (S/P/Bld) [Vol rate/Area] 57 mL/min/{1.73_m2} Low >60 [facility] Comment on above: Result Comment: mL/m in/1.73m2 CKD-EPI Creatinine Equation (2020) Performed By: #### L 100.0100, M100.7900 #### [facility] [address] [place], [address] Globulin (S) [Mass/Vol] 2.7 g/dL Normal 2.2-4.[address] [facility] Comment on above: Performed By: #### L 100.0100, M100.7900 #### [facility] [address] [place], [address] Glucose [Mass/Vol] 137 mg/dL High 70-99 [facility] Comment on above: Performed By: #### L 100.0100, M100.7900 #### [facility] [address] [place], [address] Potassium [Moles/Vol] 4.4 mmol/L Normal 3.3-5.1 [facility] Comment on above: Performed By: #### L 100.0100, M100.7900 #### [facility] [address] [place], [address] Sodium [Moles/Vol] 132 mmol/L Low 133-145 [facility] Comment on above: Performed By: #### L 100.0100, M100.7900 #### [facility] [address] [place], [address] T PROT 6.5 g/dL Normal 5.9-8.4 [facility] Comment on above: Performed By: #### L 100.0100, M100.7900 #### [facility] [address] [place], [address] Urea nitrogen [Mass/Vol] 12 mg/dL Normal 4-19 [facility] Comment on above: Performed By: #### L 100.0100, M100.7900 #### [facility] [address] [place], [address] Eosinophil percentageOrdered By: Bernard Nugent on 10-22-2024 Eosinophils/100 WBC (Bld) 1.8 % 0-5 [facility] Erythrocyte distribution wid th ratioOrdered By: Bernard Nugent on 10-22-2024 Erythrocyte distribution width (RBC) [Ratio] 13.2 % 11.6-14.6 [facility] Erythrocyte distribution wid th standard deviationOrdered By: Bernard Nugent on 10-22-2024 Erythrocyte distribution width (RBC) [Ratio] 43.7 fl 35.1-43.9 [facility] Glomerular filtration rate ( GFR) estimation/1.73 sq m using serum, plasma, or whole bOrdered By: Bernard Nugent on 10-22-2024 GFR/1.73 sq M.predicted among non-blacks MDRD (S/P/Bld) [Vol rate/Area] 57 mL/min/{1.73_m2} Low >60 [facility] Comment on above: mL/min/1.73m2 CKD-EP I Creatinine Equation (2020) Hematocrit Auto (Bld) [Volum e fraction]Ordered By: Bernard Nugent on 10-22-2024 Hematocrit (Bld) [Volume fraction] 38.4 % Low 40-54 [facility] Hemoglobin A1con 10-22-2024 HbA1c (Bld) [Mass fraction] 6.2 % High <=5.6 [facility] Comment on above: Order Comment: ADD O N-SWRIGHT Result Comment: Norm al < 5.7 % Prediabetic 5.7 - 6.4 % Diabetic >or= 6.5 % Please note range changes. Performed By: #### L 500.4100, L506.1001, L500.4050, L501.9985, L100.0100, L501.9520 #### [facility] [address] [place], [address] Hemoglobin A1c percentageOrd ered By: Bernard Nugent on 10-22-2024 HbA1c (Bld) [Mass fraction] 6.2 % High <5.7 [facility] Comment on above: Normal < 5.7 % Predi abetic 5.7 - 6.4 % Diabetic >or= 6.5 % Please note range changes. Hemoglobin measurementOrdere d By: Bernard Nugent on 10-22-2024 Hemoglobin (Bld) [Mass/Vol] 13.3 g/dL 13.0-16.5 [facility] Immature granulocytes/100 WB C Auto (Bld)Ordered By: Bernard Nugent on 10-22-2024 Immature granulocytes/100 WBC (Bld) 1.000 % High 0.0-0.9 [facility] Comment on above: IG% - Immature Granu locytes (promyelocytes, myelocytes and metamyelocytes) > 1% indicates that a LEFT SHIFT is Present. LDL calc ser/plasOrdered By: Bernard Nugent on 10-22-2024 Cholesterol in LDL [Mass/Vol] 33 mg/dL [facility] Comment on above: Foboxqtfia=129-401 m g/dL & Higher Vrsi=709 mg/dL or greater Laboratory - Chemistry and C hemistry - challengeOrdered By: Bernard Nugent on 10-22-2024 AST [Catalytic activity/Vol] 21 U/L <38 [facility] Lipid Profileon 10-22-2024 CHOL:HDL 1.92 Normal [facility] Comment on above: Performed By: #### L 100.0100, M100.7900 #### [facility] [address] [place], [place], [id number] Cholesterol [Mass/Vol] 95 mg/dL Normal <=200 [facility] Comment on above: Result Comment: Chol esterol level, Desirable <200 mg/dL Borderline high cholesterol 200-239 mg/dL High cholesterol >=240 mg/dL Recommendations of the NCEP Adult Treatment Panel for the following risk-cutoff thresholds for the [place] population. Performed By: #### L 100.0100, M100.7900 #### [facility] [address] [place], [address] Cholesterol in HDL [Mass/Vol] 49 mg/dL Normal [facility] Comment on above: Result Comment: Isis onal Cholesterol Education Program (NCEP) guidelines: <40 mg/dL: Low HDL-cholesterol (major risk factor for CHD) >= 60 mg/dL: High HDL-cholesterol (negative risk factor for CHD) HDL-cholesterol is affected by a number of factors, e.g. smoking, exercise, hormones, sex and age. Performed By: #### L 100.0100, M100.7900 #### [facility] [address] [place], [address] Cholesterol in LDL [Mass/Vol] 33 mg/dL Normal [facility] Comment on above: Result Comment: Bord cbcdrq=275-818 mg/dL Higher Wcxk=189 mg/dL or greater Performed By: #### L 100.0100, M100.7900 #### [facility] [address] [place], [address] Cholesterol in VLDL [Mass/Vol] 12 mg/dL Normal 5-40 [facility] Comment on above: Performed By: #### L 100.0100, M100.7900 #### [facility] [address] [place], [address] Triglyceride [Mass/Vol] 61 mg/dL Normal [facility] Comment on above: Result Comment: The drugs N-Acetylcysteine and Metamizole may falsely depress this assay. Normal range: <150 mg/dL Borderline High: 150-199 mg/dL High: 200-499 mg/dL Very High: >500 mg/dL Performed By: #### L 100.0100, M100.7900 #### [facility] [place], [address] MCV (mean corpuscular volume ) determinationOrdered By: Bernard Nugent on 10-22-2024 MCV (RBC) [Entitic vol] 89.7 fL 80-94 [facility] Mean corpuscular hemoglobin (MCH) determinationOrdered By: Bernard Nugent on 10-22-2024 MCH (RBC) [Entitic mass] 31.1 pg 27.0-32.0 [facility] Mean corpuscular hemoglobin concentration (MCHC) determinationOrdered By: Bernard Nugent on 10-22-2024 MCHC (RBC) [Mass/Vol] 34.6 g/dL 32-36 [facility] Mean platelet volume determi nationOrdered By: Bernard Nugent on 10-22-2024 Platelet mean volume (Bld) [Entitic vol] 10.6 fL 6.2-12.0 [facility] Monocyte percentageOrdered B y: Bernard Nugent on 10-22-2024 Monocytes/100 WBC (Bld) 9.0 % 0-10 [facility] Neutrophil percentageOrdered By: Bernard Nugent on 10-22-2024 Neutrophils/100 WBC (Bld) 79.8 % High 47-70 [facility] Nucleated red blood cell per centageOrdered By: Bernard Nugent 10-22-2024 Nucleated RBC/100 WBC (Bld) [Ratio] 0 % 0-5 [facility] Platelet countOrdered By: Vick Nugent on 10-22-2024 Platelets (Bld) [#/Vol] 285 10*3/uL 150-450 [facility] Potassium measurement (mass/ volume)Ordered By: Bernard Nugent on 10-22-2024 Potassium (Unsp spec) [Mass/Vol] 4.4 mmol/L 3.3-5.1 [facility] RBC Auto (Bld) [#/Vol]Ordere d By: Bernard Nugent on 10-22-2024 RBC (Bld) [#/Vol] 4.28 10*6/uL Low 4.6-6.2 [facility] Screening total cholesterol/ high density lipoprotein (HDL) cholesterol ratioOrdered By: Bernard Nugent on 10-22-2024 Cholesterol.total/Choles terol in HDL [Mass ratio] 1.92 {ratio} [facility] Serum creatinine measurement (mass/volume)Ordered By: Bernard Nugent on 10-22-2024 Creatinine [Mass/Vol] 1.22 mg/dL High 0.70-1.20 [facility] Serum globulin measurementOr dered By: Bernard Nugent on 10-22-2024 Globulin (S) [Mass/Vol] 2.7 g/dL 2.2-4.2 [facility] Serum glucose measurement (m ass/volume)Ordered By: Bernard Nugent 10-22-2024 Glucose [Mass/Vol] 137 mg/dL High 70-99 [facility] Serum or plasma alanine erickson otransferase (ALT) measurementOrdered By: Bernard Nugent 10-22-2024 ALT [Catalytic activity/Vol] 18 U/L <47 [facility] Serum or plasma albumin sita urement (mass/volume)Ordered By: Bernard Nugent 10-22-2024 Albumin [Mass/Vol] 3.8 g/dL 3.4-4.8 [facility] Serum or plasma albumin/glob ulin mass ratioOrdered By: Bernard Nugent 10-22-2024 Albumin/Globulin [Mass ratio] 1.4 {ratio} 0.9-2.4 [facility] Serum or plasma alkaline florencia sphatase measurementOrdered By: Bernard Nugent 10-22-2024 ALP [Catalytic activity/Vol] 174 U/L High 40-129 [facility] Serum or plasma calcium sita urement (mass/volume)Ordered By: Bernard Nugent 10-22-2024 Calcium [Mass/Vol] 8.7 mg/dL 7.6-11.0 [facility] Serum or plasma cholesterol in HDL measurement (mass/volume)Ordered By: Bernard Nugent 10-22-2024 Cholesterol in HDL [Mass/Vol] 49 mg/dL >40 [facility] Comment on above: National Cholesterol Education Program (NCEP) guidelines:<40 mg/dL: Low HDL-cholesterol (major risk factor for CHD)>= 60 mg/dL: High HDL-cholesterol (negative risk factor for CHD)HDL-cholesterol is affected by a number of factors, e.g. smoking, exercise, hormones, sex and age. Serum or plasma cholesterol measurement (mass/volume)Ordered By: Bernard Nugent on 10-22-2024 Cholesterol [Mass/Vol] 95 mg/dL <201 [facility] Comment on above: Cholesterol level, D esirable <200 mg/dLBorderline high cholesterol 200-239 mg/dLHigh cholesterol >=240 mg/dLRecommendations of the NCEP Adult Treatment Panel for the following risk-cutoff thresholds for the [place] population. Serum or plasma urea nitroge n measurement (mass/volume)Ordered By: Bernard Nugent on 10-22-2024 Urea nitrogen [Mass/Vol] 12 mg/dL 4-19 [facility] Sodium levelOrdered By: Bernard Nugent on 10-22-2024 Sodium [Moles/Vol] 132 mmol/L Low 133-145 [facility] TSH DL <= 0.005 mIU/L QnOrde red By: Bernard Nugent on 10-22-2024 TSH Qn 2.130 uIU/mL 0.300-4.200 [facility] Thyroid Stim Hormone (TSH)on 10-22-2024 TSH 2.130 uIU/mL Normal 0.300-4.200 [facility] Comment on above: Performed By: #### L 100.0100, M100.7900 #### [facility] [address] [place] [address]. [place], [place], [id number] Total proteinOrdered By: Bernard Nugent on 10-22-2024 Protein [Mass/Vol] 6.5 g/dL 5.9-8.4 [facility] Triglycerides measurementOrd ered By: Bernard Nugent on 10-22-2024 Triglyceride [Mass/Vol] 61 mg/dL <199 [facility] Comment on above: The drugs N-Acetylcy steine and Metamizole may falsely depress this assay. Normal range: <150 mg/dLBorderline High: 150-199 mg/dLHigh: 200-499 mg/dLVery High: >500 mg/dL Vitamin D,25 Hydroxyon 10-22 Vitamin D 25-OH 20.9 ng/mL Low 30-100 [facility] Comment on above: Result Comment: Mary min D Status Deficiency: <20 ng/mL (50nmol/L) Insufficiency: 20-30 ng/mL (50-75 nmol/L) Sufficiency: 30-100 ng/mL (75-250 nmol/L) Toxicity: >100 ng/mL (>250 nmol/L) Performed By: #### L 100.0100, M100.7900 #### [facility] [place], [address] White blood cell (WBC) count Ordered By: Bernard Nugent on 10-22-2024 WBC (Bld) [#/Vol] 12.2 10*3/uL High 4.4-11.0 [facility] Absolute lymphocyte countOrd ered By: [facility] Lymphocytes Auto (Unsp spec) [#/Vol] 0.92 10*3/uL 0.83-4.51 [facility] Absolute neutrophil countOrd ered By: Bernard Nugent on 07-27-2024 Neutrophils (Bld) [#/Vol] 4.5 10*3/uL 2.0-7.7 [facility] Anion gap in Serum or Plasma Ordered By: Bernard Nugent on 07-27-2024 Anion gap [Moles/Vol] 11 mmol/L 5-15 [facility] Automated lymphocyte count a s percentage of total leukocytesOrdered By: Bernard Nugent on 07-27-2024 Lymphocytes/100 WBC Auto (Unsp spec) 14.4 % Low 19-41 [facility] BUN/creatinine ratioOrdered By: Bernard Nugent on 07-27-2024 Urea nitrogen/Creatinine [Mass ratio] 11.5 mg/mg 10-20 [facility] Basophil percentageOrdered B y: Bernard Nugent on 07-27-2024 Basophils/100 WBC (Bld) 0.8 % 0- [facility] Bilirubin, totalOrdered By: Bernard Nugent on 07-27-2024 Bilirubin [Mass/Vol] 1.41 mg/dL High 0.00-1.30 [facility] CBC W/Diff, Automatedon 07-18 Absolute Lymph 0.92 X10 3/uL Normal 0.83-4.51 [facility] Comment on above: Performed By: #### L 501.7300, L501.7400, L501.5500, L500.2500 #### [facility] [address] [place], [address] Absolute Neut 4.5 X10 3/uL Normal 2.0-7.7 [facility] Comment on above: Performed By: #### L 501.7300, L501.7400, L501.5500, L500.2500 #### [facility] [address] [place], [address] Basophils/100 WBC (Bld) 0.8 % Normal 0-1 [facility] Comment on above: Performed By: #### L 501.7300, L501.7400, L501.5500, L500.2500 #### [facility] [address] [place], [address] Eosinophils/100 WBC (Bld) 3.3 % Normal 0-5 [facility] Comment on above: Performed By: #### L 501.7300, L501.7400, L501.5500, L500.2500 #### [facility] [address] [place], [address] Erythrocyte distribution width (RBC) [Ratio] 13.0 % Normal 11.6-14.6 [facility] Comment on above: Performed By: #### L 501.7300, L501.7400, L501.5500, L500.2500 #### [facility] [address] [place], [address] Hematocrit (Bld) [Volume fraction] 34.5 % Low 40-54 [facility] Comment on above: Performed By: #### L 501.7300, L501.7400, L501.5500, L500.2500 #### [facility] [address] [place], [address] Hemoglobin (Bld) [Mass/Vol] 12.5 g/dL Low 13.0-16.5 [facility] Comment on above: Performed By: #### L 501.7300, L501.7400, L501.5500, L500.2500 #### [facility] [address] [place], [address] IG% 0.600 Normal 0.0-0.9 [facility] Comment on above: Result Comment: IG% - Immature Granulocytes (promyelocytes, myelocytes and metamyelocytes) > 1% indicates that a LEFT SHIFT is Present. Performed By: #### L 501.7300, L501.7400, L501.5500, L500.2500 #### [facility] [address] [place], [address] Lymphocytes/100 WBC (Bld) 14.4 % Low 19-41 [facility] Comment on above: Performed By: #### L 501.7300, L501.7400, L501.5500, L500.2500 #### [facility] [address] [place], [address] MCH (RBC) [Entitic mass] 31.9 pg Normal 27.0-32.0 [facility] Comment on above: Performed By: #### L 501.7300, L501.7400, L501.5500, L500.2500 #### [facility] [address] [place], [address] MCHC (RBC) [Mass/Vol] 36.2 g/dL High 32-36 [facility] Comment on above: Performed By: #### L 501.7300, L501.7400, L501.5500, L500.2500 #### [facility] [address] [place], [address] MCV (RBC) [Entitic vol] 88.0 fL Normal 80-94 [facility] Comment on above: Performed By: #### L 501.7300, L501.7400, L501.5500, L500.2500 #### [facility] [address] [place], [address] Monocytes/100 WBC (Bld) 11.0 % High 0-10 [facility] Comment on above: Performed By: #### L 501.7300, L501.7400, L501.5500, L500.2500 #### [facility] [address] [place], [address] Neutrophils/100 WBC (Bld) 69.9 % Normal 47-70 [facility] Comment on above: Performed By: #### L 501.7300, L501.7400, L501.5500, L500.2500 #### [facility] [address] [place], [address] Nucleated RBC (Bld) [#/Vol] 0 10*3/uL Normal 0-5 [facility] Comment on above: Performed By: #### L 501.7300, L501.7400, L501.5500, L500.2500 #### [facility] [address] [place], [address] Platelet mean volume (Bld) [Entitic vol] 10.6 fL Normal 6.2-12.0 [facility] Comment on above: Performed By: #### L 501.7300, L501.7400, L501.5500, L500.2500 #### [facility] [address] [place], [address] Platelets (Bld) [#/Vol] 213 10*3/uL Normal 150-450 [facility] Comment on above: Performed By: #### L 501.7300, L501.7400, L501.5500, L500.2500 #### [facility] [address] [place], [address] RBC (Bld) [#/Vol] 3.92 10*6/uL Low 4.6-6.2 [facility] Comment on above: Performed By: #### L 501.7300, L501.7400, L501.5500, L500.2500 #### [facility] [address] [place], [address] RDW SD 42.2 fl Normal 35.1-43.9 [facility] Comment on above: Performed By: #### L 501.7300, L501.7400, L501.5500, L500.2500 #### [facility] [address] [place], [address] WBC (Bld) [#/Vol] 6.4 10*3/uL Normal 4.4-11.0 [facility] Comment on above: Performed By: #### L 501.7300, L501.7400, L501.5500, L500.2500 #### [facility] [address] [place], [address] Calculated very low density lipoprotein (VLDL) cholesterol measurementOrdered By: Bernard Nugent on 07-27-2024 Calculated very low density lipoprotein (VLDL) cholesterol measurement 15 mg/dL 5-40 [facility] VLDL Cholesterol 15 mg/dL 5-40 [facility] Carbon dioxide, total [Moles /volume] in Central venous bloodOrdered By: Bernard Nugent on 07-27-2024 CO2 [Moles/Vol] 22.3 mmol/L 21.0-32.0 [facility] Chloride assayOrdered By: Vick Nugent on 07-27-2024 Chloride [Moles/Vol] 93 mmol/L Low 98-108 [facility] Comprehensive Metabolic Prof ilon 07-27-2024 Albumin [Mass/Vol] 3.7 g/dL Normal 3.4-4.8 [facility] Comment on above: Performed By: #### L 501.7300, L501.7400, L501.5500, L500.2500 #### [facility] [address] [place], [address] Albumin/Globulin [Mass ratio] 1.4 {ratio} Normal 0.9-2.4 [facility] Comment on above: Performed By: #### L 501.7300, L501.7400, L501.5500, L500.2500 #### [facility] [address] [place], [address] ALK PHOS 131 U/L High 40-129 [facility] Comment on above: Performed By: #### L 501.7300, L501.7400, L501.5500, L500.2500 #### [facility] [address] [place], [address] ALT [Catalytic activity/Vol] 26 U/L Normal <=46 [facility] Comment on above: Performed By: #### L 501.7300, L501.7400, L501.5500, L500.2500 #### [facility] [address] [place], [address] AST [Catalytic activity/Vol] 35 U/L Normal <=37 [facility] Comment on above: Performed By: #### L 501.7300, L501.7400, L501.5500, L500.2500 #### [facility] [address] [place], [address] Bilirubin [Mass/Vol] 1.41 mg/dL High 0.00-1.30 [facility] Comment on above: Performed By: #### L 501.7300, L501.7400, L501.5500, L500.2500 #### [facility] [address] [place], [address] BUN/CRE 11.5 RATIO Normal 10-20 [facility] Comment on above: Performed By: #### L 501.7300, L501.7400, L501.5500, L500.2500 #### [facility] [address] [place], [address] Calcium [Mass/Vol] 8.4 mg/dL Normal 7.6-11.0 [facility] Comment on above: Performed By: #### L 501.7300, L501.7400, L501.5500, L500.2500 #### [facility] [address] [place], [address] Chloride [Moles/Vol] 93 mmol/L Low 98-108 [facility] Comment on above: Performed By: #### L 501.7300, L501.7400, L501.5500, L500.2500 #### [facility] [address] [place], [address] CO2 [Moles/Vol] 22.3 mmol/L Normal 21.0-32.0 [facility] Comment on above: Performed By: #### L 501.7300, L501.7400, L501.5500, L500.2500 #### [facility] [address] [place], [address] Creatinine [Mass/Vol] 1.23 mg/dL High 0.70-1.20 [facility] Comment on above: Performed By: #### L 501.7300, L501.7400, L501.5500, L500.2500 #### [facility] [address] [place], [address] GAP 11 Normal 5-15 [facility] Comment on above: Performed By: #### L 501.7300, L501.7400, L501.5500, L500.2500 #### [facility] [address] [place], [address] GFR/1.73 sq M.predicted among non-blacks MDRD (S/P/Bld) [Vol rate/Area] 56 mL/min/{1.73_m2} Low >60 [facility] Comment on above: Result Comment: mL/m in/1.73m2 CKD-EPI Creatinine Equation (2020) Performed By: #### L 501.7300, L501.7400, L501.5500, L500.2500 #### [facility] [address] [place], [address] Globulin (S) [Mass/Vol] 2.6 g/dL Normal 2.2-4.[address] [facility] Comment on above: Performed By: #### L 501.7300, L501.7400, L501.5500, L500.2500 #### [facility] [address] [place], [address] Glucose [Mass/Vol] 118 mg/dL High 70-99 [facility] Comment on above: Performed By: #### L 501.7300, L501.7400, L501.5500, L500.2500 #### [facility] [address] [place], [address] Potassium [Moles/Vol] 4.5 mmol/L Normal 3.3-5.1 [facility] Comment on above: Performed By: #### L 501.7300, L501.7400, L501.5500, L500.2500 #### [facility] [address] [place], [address] Sodium [Moles/Vol] 126 mmol/L Low 133-145 [facility] Comment on above: Performed By: #### L 501.7300, L501.7400, L501.5500, L500.2500 #### [facility] [address] [place], [address] T PROT 6.3 g/dL Normal 5.9-8.4 [facility] Comment on above: Performed By: #### L 501.7300, L501.7400, L501.5500, L500.2500 #### [facility] [address] [place], [address] Urea nitrogen [Mass/Vol] 14 mg/dL Normal 4-19 [facility] Comment on above: Performed By: #### L 501.7300, L501.7400, L501.5500, L500.2500 #### [facility] [address] [place], [address] Eosinophil percentageOrdered By: Bernard Nugent on 07-27-2024 Eosinophils/100 WBC (Bld) 3.3 % 0-5 [facility] Erythrocyte distribution wid th ratioOrdered By: [facility] Erythrocyte distribution width (RBC) [Ratio] 13.0 % 11.6-14.6 [facility] Erythrocyte distribution wid th standard deviationOrdered By: Bernard Raffi on 07-27-2024 Erythrocyte distribution width (RBC) [Entitic vol] 42.2 fL 35.1-43.9 [facility] Erythrocyte distribution width (RBC) [Ratio] 42.2 fl 35.1-43.9 [facility] GFR/1.73 sq M.predicted berna g non-blacks MDRD (S/P/Bld) [Vol rate/Area]Ordered By: Bernard Nugent on 07-27-2024 Estimated GFR (MDRD) Non-Af Amer 56 Low >60 [facility] Comment on above: mL/min/1.73m2 CKD-EP I Creatinine Equation (2020) Glomerular filtration rate ( GFR) estimation/1.73 sq m using serum, plasma, or whole bOrdered By: Bernard Nugent on 07-27-2024 GFR/1.73 sq M.predicted among non-blacks MDRD (S/P/Bld) [Vol rate/Area] 56 mL/min/{1.73_m2} Low >60 [facility] Comment on above: mL/min/1.73m2 CKD-EP I Creatinine Equation (2020) Hematocrit Auto (Bld) [Volum e fraction]Ordered By: Bernard Nugent on 07-27-2024 Hematocrit (Bld) [Volume fraction] 34.5 % Low 40-54 [facility] Hemoglobin A1con 07-27-2024 HbA1c (Bld) [Mass fraction] 6.6 % Normal <=5.6 [facility] Comment on above: Performed By: #### L 501.7300, L501.7400, L501.5500, L500.2500 #### [facility] [address] [place], [place], [id number] Hemoglobin A1c percentageOrd ered By: Bernard Raffi on 07-27-2024 HbA1c (Bld) [Mass fraction] 6.6 % >5.7 [facility] Hemoglobin measurementOrdere d By: Bernard Nugent on 07-27-2024 Hemoglobin (Bld) [Mass/Vol] 12.5 g/dL Low 13.0-16.5 [facility] Immature granulocytes/100 WB C Auto (Bld)Ordered By: Bernard Nugent on 07-27-2024 Immature granulocytes/100 WBC (Bld) 0.600 % 0.0-0.9 [facility] Comment on above: IG% - Immature Granu locytes (promyelocytes, myelocytes and metamyelocytes) > 1% indicates that a LEFT SHIFT is Present. L506.1001on 07-27-2024 Vitamin D 25-OH 21.6 ng/mL Low 30-100 [facility] Comment on above: Result Comment: Mary min D Status Deficiency: <20 ng/mL (50nmol/L) Insufficiency: 20-30 ng/mL (50-75 nmol/L) Sufficiency: 30-100 ng/mL (75-250 nmol/L) Toxicity: >100 ng/mL (>250 nmol/L) Performed By: #### L 501.7300, L501.7400, L501.5500, L500.2500 #### [facility] [address] [place], [place], [id number] LDL calc ser/plasOrdered By: Bernard Nugent on 07-27-2024 Cholesterol in LDL [Mass/Vol] 22 mg/dL [facility] Comment on above: Qyzbcwhnre=062-089 m g/dL & Higher Tyjx=024 mg/dL or greater LDL Cholesterol, Calculated 22 mg/dL [facility] Comment on above: Qiqemqrqwt=885-143 m g/dL & Higher Qqdu=456 mg/dL or greater Laboratory - Chemistry and C hemistry - challengeOrdered By: Bernard Nugent on 07-27-2024 AST [Catalytic activity/Vol] 35 U/L <38 [facility] Lipid Profileon 07-27-2024 CHOL:HDL 1.59 Normal [facility] Comment on above: Performed By: #### L 501.7300, L501.7400, L501.5500, L500.2500 #### [facility] [address] [place], [address] Cholesterol [Mass/Vol] 101 mg/dL Normal <=200 [facility] Comment on above: Result Comment: Chol esterol level, Desirable <200 mg/dL Borderline high cholesterol 200-239 mg/dL High cholesterol >=240 mg/dL Recommendations of the NCEP Adult Treatment Panel for the following risk-cutoff thresholds for the [place] population. Performed By: #### L 501.7300, L501.7400, L501.5500, L500.2500 #### [facility] [address] [place], [address] Cholesterol in HDL [Mass/Vol] 64 mg/dL Normal [facility] Comment on above: Result Comment: Isis onal Cholesterol Education Program (NCEP) guidelines: <40 mg/dL: Low HDL-cholesterol (major risk factor for CHD) >= 60 mg/dL: High HDL-cholesterol (negative risk factor for CHD) HDL-cholesterol is affected by a number of factors, e.g. smoking, exercise, hormones, sex and age. Performed By: #### L 501.7300, L501.7400, L501.5500, L500.2500 #### [facility] [address] [place], [address] Cholesterol in LDL [Mass/Vol] 22 mg/dL Normal [facility] Comment on above: Result Comment: Bord figuvt=069-843 mg/dL Higher Asdq=712 mg/dL or greater Performed By: #### L 501.7300, L501.7400, L501.5500, L500.2500 #### [facility] [address] [place], [address] Cholesterol in VLDL [Mass/Vol] 15 mg/dL Normal 5-40 [facility] Comment on above: Performed By: #### L 501.7300, L501.7400, L501.5500, L500.2500 #### [facility] [address] [place], [address] Triglyceride [Mass/Vol] 75 mg/dL Normal [facility] Comment on above: Result Comment: The drugs N-Acetylcysteine and Metamizole may falsely depress this assay. Normal range: <150 mg/dL Borderline High: 150-199 mg/dL High: 200-499 mg/dL Very High: >500 mg/dL Performed By: #### L 501.7300, L501.7400, L501.5500, L500.2500 #### [facility] [address] [place] [place], [address] Lymphocytes Auto (Unsp spec) [#/Vol]Ordered By: Bernard Nugent on 07-27-2024 Lymphocytes (Bld) [#/Vol] 0.92 10*3/uL 0.83-4.51 [facility] Lymphocytes/100 WBC Auto (Un sp spec)Ordered By: Bernard Nugent on 07-27-2024 Lymphocytes/100 WBC (Bld) 14.4 % Low 19-41 [facility] MCV (mean corpuscular volume ) determinationOrdered By: Bernard Nugent on 07-27-2024 MCV (RBC) [Entitic vol] 88.0 fL 80-[address] [facility] Mean corpuscular hemoglobin (MCH) determinationOrdered By: Bernard Nugent on 07-27-2024 MCH (RBC) [Entitic mass] 31.9 pg 27.0-32.0 [facility] Mean corpuscular hemoglobin concentration (MCHC) determinationOrdered By: Bernard Nugent on 07-27-2024 MCHC (RBC) [Mass/Vol] 36.2 g/dL High 32-36 [facility] Mean platelet volume determi nationOrdered By: Bernard Nugent on 07-27-2024 Platelet mean volume (Bld) [Entitic vol] 10.6 fL 6.2-12.0 [facility] Monocyte percentageOrdered B y: Bernard Nugent on 07-27-2024 Monocytes/100 WBC (Bld) 11.0 % High 0-10 [facility] Neutrophil percentageOrdered By: Bernard Nugent on 07-27-2024 Neutrophils/100 WBC (Bld) 69.9 % 47-70 [facility] Nucleated red blood cell per centageOrdered By: Bernard Nugent on 07-27-2024 Nucleated RBC/100 WBC (Bld) [Ratio] 0 % 0-5 [facility] Platelet countOrdered By: Vick Nugent on 07-27-2024 Platelets (Bld) [#/Vol] 213 10*3/uL 150-450 [facility] Potassium (Unsp spec) [Mass/ Vol]Ordered By: Bernard Nugent on 07-27-2024 Potassium [Moles/Vol] 4.5 mmol/L 3.3-5.1 [facility] Potassium measurement (mass/ volume)Ordered By: Bernard Nugent on 07-27-2024 Potassium (Unsp spec) [Mass/Vol] 4.5 mmol/L 3.3-5.1 [facility] RBC Auto (Bld) [#/Vol]Ordere d By: Bernard Nugent on 07-27-2024 RBC (Bld) [#/Vol] 3.92 10*6/uL Low 4.6-6.2 [facility] Screening total cholesterol/ high density lipoprotein (HDL) cholesterol ratioOrdered By: Bernard Nugent on 07-27-2024 Cholesterol.total/Choles terol in HDL [Mass ratio] 1.59 {ratio} [facility] Serum creatinine measurement (mass/volume)Ordered By: Bernard Nugent on 07-27-2024 Creatinine [Mass/Vol] 1.23 mg/dL High 0.70-1.20 [facility] Serum globulin measurementOr dered By: Bernard Nugent on 07-27-2024 Globulin (S) [Mass/Vol] 2.6 g/dL 2.2-4.2 [facility] Serum glucose measurement (m ass/volume)Ordered By: Bernard Nugent on 07-27-2024 Glucose [Mass/Vol] 118 mg/dL High 70-99 [facility] Serum or plasma alanine erickson otransferase (ALT) measurementOrdered By: Bernard Raffi on 07-27-2024 ALT [Catalytic activity/Vol] 26 U/L <47 [facility] Serum or plasma albumin sita urement (mass/volume)Ordered By: Bernard Raffi 07-27-2024 Albumin [Mass/Vol] 3.7 g/dL 3.4-4.8 [facility] Serum or plasma albumin/glob ulin mass ratioOrdered By: Bernard Raffi07-27-2024 Albumin/Globulin [Mass ratio] 1.4 {ratio} 0.9-2.4 [facility] Serum or plasma alkaline florencia sphatase measurementOrdered By: Bernard Raffi 07-27-2024 ALP [Catalytic activity/Vol] 131 U/L High 40-129 [facility] Serum or plasma calcium sita urement (mass/volume)Ordered By: Bernard Raffi 07-27-2024 Calcium [Mass/Vol] 8.4 mg/dL 7.6-11.0 [facility] Serum or plasma cholesterol in HDL measurement (mass/volume)Ordered By: Bernard Raffi 07-27-2024 Cholesterol in HDL [Mass/Vol] 64 mg/dL >40 [facility] Comment on above: National Cholesterol Education Program (NCEP) guidelines:<40 mg/dL: Low HDL-cholesterol (major risk factor for CHD)>= 60 mg/dL: High HDL-cholesterol (negative risk factor for CHD)HDL-cholesterol is affected by a number of factors, e.g. smoking, exercise, hormones, sex and age. Serum or plasma cholesterol measurement (mass/volume)Ordered By: Bernard Raffi 07-27-2024 Cholesterol [Mass/Vol] 101 mg/dL <201 [facility] Comment on above: Cholesterol level, D esirable <200 mg/dLBorderline high cholesterol 200-239 mg/dLHigh cholesterol >=240 mg/dLRecommendations of the NCEP Adult Treatment Panel for the following risk-cutoff thresholds for the [place] population. Serum or plasma urea nitroge n measurement (mass/volume)Ordered By: Bernard Nugent 07-27-2024 Urea nitrogen [Mass/Vol] 14 mg/dL 4-19 [facility] Sodium levelOrdered By: Bernard Nugent on 07-27-2024 Sodium [Moles/Vol] 126 mmol/L Low 133-145 [facility] TSH DL <= 0.005 mIU/L QnOrde red By: Bernard Nugent on 07-27-2024 Thyroid Stimulating Hormone (TSH) 2.460 uIU/mL 0.300-4.200 [facility] TSH Qn 2.460 uIU/mL 0.300-4.200 [facility] Thyroid Stim Hormone (TSH)on 07-27-2024 TSH 2.460 uIU/mL Normal 0.300-4.200 [facility] Comment on above: Performed By: #### L 501.7300, L501.7400, L501.5500, L500.2500 #### [facility] [address] [place], [address] Total proteinOrdered By: Bernard Nugent on 07-27-2024 Protein [Mass/Vol] 6.3 g/dL 5.9-8.4 [facility] Triglycerides measurementOrd ered By: Bernard Nugent on 07-27-2024 Triglyceride [Mass/Vol] 75 mg/dL <[address] [facility] Comment on above: The drugs N-Acetylcy steine and Metamizole may falsely depress this assay. Normal range: <150 mg/dLBorderline High: 150-199 mg/dLHigh: 200-499 mg/dLVery High: >500 mg/dL Vitamin D, 25-hydroxyOrdered By: Bernard Nugent on 07-27-2024 Vitamin D 25-Hydroxy 21.6 ng/mL Low 30-100 [facility] Comment on above: Vitamin D StatusDefi ciency: <20 ng/mL (50nmol/L)Insufficiency: 20-30 ng/mL (50-75 nmol/L)Sufficiency: 30-100 ng/mL (75-250 nmol/L)Toxicity: >100 ng/mL (>250 nmol/L) White blood cell (WBC) count Ordered By: Bernard Nugent on 07-27-2024 WBC (Bld) [#/Vol] 6.4 10*3/uL 4.4-11.0 [facility] Culture, Anaerobic Any Sourc silke 07-15-2024 CUAN LOWER LEFT LEG Bacteria Spec Anaerobe Cult Susceptibility not normally performed on this organism. [place] odontolyticus Normal [facility] Comment on above: Performed By: #### L 501.7300, L501.7400, L501.5500, L500.2500 #### [facility] [address] [place], [place], [id number] Wound Cultureon 07-14-2024 WC LOWER LEFT LEG [...] S Vancomycin Islt CHERRY 1 S Normal [facility] Comment on above: Performed By: #### L 501.7300, L501.7400, L501.5500, L500.2500 #### [facility] [address] [place], [place], [id number] Gram Stainon 07-12-2024 GS LOWER LEFT LEG Test not performed Normal [facility] Comment on above: Performed By: #### L 501.7300, L501.7400, L501.5500, L500.2500 #### [facility] [address] [place], [place], [id number] Anaerobic cultureOrdered By: Bernard Nugent on 07-10-2024 Bacteria identified Anaer cx Nom (Unsp spec) [place] odontolyticus Abnormal [facility] Bacteria identified Anaer cx Nom (Unsp spec)Ordered By: Bernard Nugent on 07-10-2024 Anaerobic Culture [place] odontolyticus Abnormal [facility] Anaerobic Culture [place] odontolyticus Abnormal [facility] Gram stainOrdered By: Bernard sky on 07-10-2024 Microscopic observation Gram stain Nom (Unsp spec) [facility] Microscopic observation Gram stain Nom (Unsp spec) [facility] Routine wound cultureOrdered By: Bernard Nugent on 07-10-2024 Wound Culture Stenotrophomonas maltophilia Abnormal [facility] Wound Culture Staphylococcus epidermidis#2 Abnormal [facility] Wound Culture Staphylococcus epidermidis Abnormal [facility] Microbial culture, routine Stenotrophomonas maltophilia Abnormal [facility] Microbial culture, routine Staphylococcus epidermidis#2 Abnormal [facility] Microbial culture, routine Staphylococcus epidermidis Abnormal [facility] Wound Culture Stenotrophomonas maltophilia Abnormal [facility] Wound Culture Staphylococcus epidermidis#2 Abnormal [facility] Wound Culture Staphylococcus epidermidis Abnormal [facility] MRSA Wound DNA by PCRon 06-21 MRSA DNA ASSAY Negative Normal Negative [facility] Comment on above: Order Comment: LOWER LEFT LEGLOWER LEFT LEG Performed By: #### L 501.7300, L501.7400, L501.5500, L500.2500 #### [facility] [address] [place], [address] SA DNA ASSAY Negative Normal Negative [facility] Comment on above: Order Comment: LOWER LEFT LEGLOWER LEFT LEG Performed By: #### L 501.7300, L501.7400, L501.5500, L500.2500 #### [facility] [address] [place], [address] MRSA detection PCROrdered By : Bernard Nugent on 07-09-2024 Methicillin-Resist S.aureus DNA PCR Negative Negative [facility] S. aureus DNA MELIZA+probe Ql ( Unsp spec)Ordered By: Bernard Nugent on 02-20-2025 Staphylococcus aureus Protein A PCR Negative Negative [facility] Staphylococcus aureus DNA de tection by probe and target amplification methodOrdered By: Bernard Nugent on 07-09-2024 S. aureus DNA MELIZA+probe Ql (Unsp spec) Negative Negative [facility] Emergency Department Summary on 07-03-2024 Emergency Department Summary [facility] Medical Records Department [address] [place] [address] Emergency Department Summary 07/03/24 MR#: [id number] Acct: [id number] Name: ASHIA PEREZ Rep #: [id number] : 1935 88 From: Salvatore Hightower DO [...] Loss of Funtion Narrative Tetanus Immunization: Unknown [facility] Medical History NSVT (nonsustained ventricular tachycardia) Aortic [...] mg tablet 1 mg PO QAM diabetes 09/15/23 Unkn own History potassium chloride 20 mEq [...] leg. Th (more content not included)... Normal [facility] Absolute neutrophil countOrd ered By: Bernard Nugent on 04-27-2024 Neutrophils (Bld) [#/Vol] 8.7 10*3/uL High 2.0-7.7 [facility] Albumin to globulin ratioOrd ered By: Bernard Nugent on 04-27-2024 Albumin/Globulin [Mass ratio] 1.0 {ratio} 0.9-2.4 [facility] Basophil percentageOrdered B y: Bernard Nugent on 04-27-2024 Basophils/100 WBC (Bld) 0.5 % 0-1 [facility] Bilirubin Test strip Ql (U)O rdered By: Bernard Nugent on 04-27-2024 Bilirubin Ql (U) Negative Negative [facility] Bilirubin, totalOrdered By: Bernard Nugent on 04-27-2024 Bilirubin [Mass/Vol] 2.90 mg/dL High 0.20-1.00 [facility] Comment on above: For patients on eltr ombopag therapy, use of Dimension [place] TBIL is not recommended. Blood urea nitrogen (BUN)/cr eatinine ratioOrdered By: Bernard Nugent on 04-27-2024 Urea nitrogen/Creatinine [Mass ratio] 9.9 mg/mg Low 10-20 [facility] CBC W/Diff, Automatedon Absolute Lymph 0.78 X10 3/uL Low 0.83-4.51 [facility] Comment on above: Performed By: #### L 501.7300, L501.7400, L501.5500, L500.2500 #### [facility] [place], [address] Absolute Neut 8.7 X10 3/uL High 2.0-7.7 [facility] Comment on above: Performed By: #### L 501.7300, L501.7400, L501.5500, L500.2500 #### [facility] [address] [place], [address] Basophils/100 WBC (Bld) 0.5 % Normal 0-1 [facility] Comment on above: Performed By: #### L 501.7300, L501.7400, L501.5500, L500.2500 #### [facility] [address] [place], [address] Eosinophils/100 WBC (Bld) 0.7 % Normal 0-5 [facility] Comment on above: Performed By: #### L 501.7300, L501.7400, L501.5500, L500.2500 #### [facility] [address] [place], [address] Erythrocyte distribution width (RBC) [Ratio] 15.3 % High 11.6-14.6 [facility] Comment on above: Performed By: #### L 501.7300, L501.7400, L501.5500, L500.2500 #### [facility] [address] [place], [address] Hematocrit (Bld) [Volume fraction] 40.3 % Normal 40-54 [facility] Comment on above: Performed By: #### L 501.7300, L501.7400, L501.5500, L500.2500 #### [facility] [address] [place], [address] Hemoglobin (Bld) [Mass/Vol] 13.8 g/dL Normal 13.0-16.5 [facility] Comment on above: Performed By: #### L 501.7300, L501.7400, L501.5500, L500.2500 #### [facility] [address] [place], [address] IG% 0.700 Normal 0.0-0.9 [facility] Comment on above: Result Comment: IG% - Immature Granulocytes (promyelocytes, myelocytes and metamyelocytes) > 1% indicates that a LEFT SHIFT is Present. Performed By: #### L 501.7300, L501.7400, L501.5500, L500.2500 #### [facility] [address] [place], [address] Lymphocytes/100 WBC (Bld) 7.2 % Low 19-41 [facility] Comment on above: Performed By: #### L 501.7300, L501.7400, L501.5500, L500.2500 #### [facility] [address] [place], [address] MCH (RBC) [Entitic mass] 30.9 pg Normal 27.0-32.0 [facility] Comment on above: Performed By: #### L 501.7300, L501.7400, L501.5500, L500.2500 #### [facility] [address] [place], [address] MCHC (RBC) [Mass/Vol] 34.2 g/dL Normal 32-36 [facility] Comment on above: Performed By: #### L 501.7300, L501.7400, L501.5500, L500.2500 #### [facility] [address] [place], [address] MCV (RBC) [Entitic vol] 90.4 fL Normal 80-[address] [facility] Comment on above: Performed By: #### L 501.7300, L501.7400, L501.5500, L500.2500 #### [facility] [address] [place], [address] Monocytes/100 WBC (Bld) 10.0 % Normal 0-10 [facility] Comment on above: Performed By: #### L 501.7300, L501.7400, L501.5500, L500.2500 #### [facility] [address] [place], [address] Neutrophils/100 WBC (Bld) 80.9 % High 47-70 [facility] Comment on above: Performed By: #### L 501.7300, L501.7400, L501.5500, L500.2500 #### [facility] [address] [place], [address] Nucleated RBC (Bld) [#/Vol] 0 10*3/uL Normal 0-5 [facility] Comment on above: Performed By: #### L 501.7300, L501.7400, L501.5500, L500.2500 #### [facility] [address] [place], [address] Platelet mean volume (Bld) [Entitic vol] 11.2 fL Normal 6.2-12.0 [facility] Comment on above: Performed By: #### L 501.7300, L501.7400, L501.5500, L500.2500 #### [facility] [address] [place], [address] Platelets (Bld) [#/Vol] 212 10*3/uL Normal 150-450 [facility] Comment on above: Performed By: #### L 501.7300, L501.7400, L501.5500, L500.2500 #### [facility] [address] [place], [address] RBC (Bld) [#/Vol] 4.46 10*6/uL Low 4.6-6.2 [facility] Comment on above: Performed By: #### L 501.7300, L501.7400, L501.5500, L500.2500 #### [facility] [address] [place], [address] RDW SD 50.4 fl High 35.1-43.9 [facility] Comment on above: Performed By: #### L 501.7300, L501.7400, L501.5500, L500.2500 #### [facility] [address] [place], [address] WBC (Bld) [#/Vol] 10.8 10*3/uL Normal 4.4-11.0 [facility] Comment on above: Performed By: #### L 501.7300, L501.7400, L501.5500, L500.2500 #### [facility] [address] [place], [address] Carbon dioxide measurementOr dered By: Bernard Nugent on 04-27-2024 CO2 [Moles/Vol] 27.0 mmol/L 21.0-32.0 [facility] Chloride measurementOrdered By: Bernard Nugent on 04-27-2024 Chloride [Moles/Vol] 101 mmol/L 98-107 [facility] Comprehensive Metabolic Prof ilon 04-27-2024 Albumin [Mass/Vol] 3.5 g/dL Normal 3.2-5.0 [facility] Comment on above: Performed By: #### L 501.7300, L501.7400, L501.5500, L500.2500 #### [facility] [address] [place], [address] Albumin/Globulin [Mass ratio] 1.0 {ratio} Normal 0.9-2.4 [facility] Comment on above: Performed By: #### L 501.7300, L501.7400, L501.5500, L500.2500 #### [facility] [address] [place] [place], [address] ALK P 147 U/L High 45-117 [facility] Comment on above: Performed By: #### L 501.7300, L501.7400, L501.5500, L500.2500 #### [facility] [address] [place], [address] ALT [Catalytic activity/Vol] 30 U/L Normal 16-61 [facility] Comment on above: Performed By: #### L 501.7300, L501.7400, L501.5500, L500.2500 #### [facility] [address] [place], [address] AST [Catalytic activity/Vol] 24 U/L Normal 15-37 [facility] Comment on above: Performed By: #### L 501.7300, L501.7400, L501.5500, L500.2500 #### [facility] [address] [place], [address] Bilirubin [Mass/Vol] 2.90 mg/dL High 0.20-1.00 [facility] Comment on above: Result Comment: For patients on eltrombopag therapy, use of [place] TBIL is not recommended. Performed By: #### L 501.7300, L501.7400, L501.5500, L500.2500 #### [facility] [address] [place], [address] BUN/CRE 9.9 RATIO Low 10-20 [facility] Comment on above: Performed By: #### L 501.7300, L501.7400, L501.5500, L500.2500 #### [facility] [address] [place], [address] CA,Total 8.4 mg/dL Low 8.5-10.1 [facility] Comment on above: Performed By: #### L 501.7300, L501.7400, L501.5500, L500.2500 #### [facility] [address] [place], [address] Chloride [Moles/Vol] 101 mmol/L Normal 98-107 [facility] Comment on above: Performed By: #### L 501.7300, L501.7400, L501.5500, L500.2500 #### [facility] [address] [place], [address] CO2 [Moles/Vol] 27.0 mmol/L Normal 21.0-32.0 [facility] Comment on above: Performed By: #### L 501.7300, L501.7400, L501.5500, L500.2500 #### [facility] [address] [place], [address] Creatinine [Mass/Vol] 1.41 mg/dL High 0.70-1.30 [facility] Comment on above: Result Comment: The validity of the calculated GFR GFRAA in patients over 70 years has not been determined. Clinical correlation is essential. Performed By: #### L 501.7300, L501.7400, L501.5500, L500.2500 #### [facility] [address] [place], [address] EST GFR - AA 61 mL/min Normal >60 [facility] Comment on above: Result Comment: Afri can [place] GFR Calc Performed By: #### L 501.7300, L501.7400, L501.5500, L500.2500 #### [facility] [address] [place], [address] GAP 7 Normal 5-15 [facility] Comment on above: Performed By: #### L 501.7300, L501.7400, L501.5500, L500.2500 #### [facility] [address] [place], [address] GFR/1.73 sq M.predicted among non-blacks MDRD (S/P/Bld) [Vol rate/Area] 50 mL/min/{1.73_m2} Low >60 [facility] Comment on above: Result Comment: Non- GFR Calc Performed By: #### L 501.7300, L501.7400, L501.5500, L500.2500 #### [facility] [address] [place], [address] Globulin (S) [Mass/Vol] 3.6 g/dL Normal 2.2-4.[address] [facility] Comment on above: Performed By: #### L 501.7300, L501.7400, L501.5500, L500.2500 #### [facility] [address] [place], [address] Glucose [Mass/Vol] 174 mg/dL High 74-106 [facility] Comment on above: Result Comment: Fast ing Glucose result greater than or equal to 126 mg/dL suggests DIABETES MELLITUS per A.D.A. criteria. Performed By: #### L 501.7300, L501.7400, L501.5500, L500.2500 #### [facility] [address] [place], [address] Potassium [Moles/Vol] 4.1 mmol/L Normal 3.5-5.1 [facility] Comment on above: Performed By: #### L 501.7300, L501.7400, L501.5500, L500.2500 #### [facility] [address] [place], [address] Sodium [Moles/Vol] 135 mmol/L Low 136-145 [facility] Comment on above: Performed By: #### L 501.7300, L501.7400, L501.5500, L500.2500 #### [facility] [address] [place], [address] T PROT 7.1 g/dL Normal 6.4-8.2 [facility] Comment on above: Performed By: #### L 501.7300, L501.7400, L501.5500, L500.2500 #### [facility] [address] [place], [address] Urea nitrogen [Mass/Vol] 14 mg/dL Normal 7-18 [facility] Comment on above: Performed By: #### L 501.7300, L501.7400, L501.5500, L500.2500 #### [facility] [address] [place], [address] Eosinophil percentageOrdered By: Bernard Nugent on 04-27-2024 Eosinophils/100 WBC (Bld) 0.7 % 0-5 [facility] Epithelial cells.squamous LM Ql (Urine sed)Ordered By: Bernard Nugent on 04-27-2024 Epithelial cells.squamous LM.HPF (Urine sed) [#/Area] 0 /[HPF] 0-5 [facility] Erythrocyte distribution wid th ratioOrdered By: Bernard Nugent on 04-27-2024 Erythrocyte distribution width (RBC) [Ratio] 15.3 % High 11.6-14.6 [facility] Erythrocyte distribution wid th standard deviationOrdered By: Bernard Nugent on 04-27-2024 Erythrocyte distribution width (RBC) [Entitic vol] 50.4 fL High 35.1-43.9 [facility] Estimated glomerular filtrat ion rate (GFR) AmericanOrdered By: Bernard Nugent on 04-27-2024 Estimated GFR (MDRD) Amer 61 mL/min >60 [facility] Comment on above: GFR Calc Glomerular filtration rate ( GFR) estimationOrdered By: Bernard Nugent on 04-27-2024 Estimated GFR (MDRD) Non-Af Amer 50 mL/min Low >60 [facility] Comment on above: Non- GFR Calc Glucose Ql (U)Ordered By: Vick Nugent on 04-27-2024 Urine Glucose (UA) Normal mg/dl Normal [facility] Glucose measurementOrdered B y: Bernard Nugent on 04-27-2024 Glucose [Mass/Vol] 174 mg/dL High 74-106 [facility] Comment on above: Fasting Glucose resu lt greater than or equal to 126 mg/dL suggests DIABETES MELLITUS per A.D.A. criteria. Hematocrit Auto (Bld) [Volum e fraction]Ordered By: Bernard Nugent on 04-27-2024 Hematocrit (Bld) [Volume fraction] 40.3 % 40-54 [facility] Hemoglobin measurementOrdere d By: Bernard Nugent on 04-27-2024 Hemoglobin (Bld) [Mass/Vol] 13.8 g/dL 13.0-16.5 [facility] Immature granulocytes/100 WB C Auto (Bld)Ordered By: Bernard Nugent on 04-27-2024 Immature granulocytes/100 WBC (Bld) 0.700 % 0.0-0.9 [facility] Comment on above: IG% - Immature Granu locytes (promyelocytes, myelocytes and metamyelocytes) > 1% indicates that a LEFT SHIFT is Present. Ketones Test strip Ql (U)Ord ered By: Bernard Nugent on 04-27-2024 Ketones Ql (U) Negative Negative [facility] - Chemistry and C hemistry - challengeOrdered By: Bernard Nugent 04-27-2024 AST [Catalytic activity/Vol] 24 U/L 15-37 [facility] Lymphocytes Auto (Unsp spec) [#/Vol]Ordered By: Bernard Nugent 04-27-2024 Lymphocytes (Bld) [#/Vol] 0.78 10*3/uL Low 0.83-4.51 [facility] Lymphocytes/100 WBC Auto (Un sp spec)Ordered By: Bernard Nugent 04-27-2024 Lymphocytes/100 WBC (Bld) 7.2 % Low 19-41 [facility] MCV (mean corpuscular volume ) determinationOrdered By: Bernard Nugent 04-27-2024 MCV (RBC) [Entitic vol] 90.4 fL 80-94 [facility] Mean corpuscular hemoglobin (MCH) determinationOrdered By: Bernard Nugent 04-27-2024 MCH (RBC) [Entitic mass] 30.9 pg 27.0-32.0 [facility] Mean corpuscular hemoglobin concentration (MCHC) determinationOrdered By: Bernard Nugent 04-27-2024 MCHC (RBC) [Mass/Vol] 34.2 g/dL 32-36 [facility] Mean platelet volume determi nationOrdered By: Bernard Nugent 04-27-2024 Platelet mean volume (Bld) [Entitic vol] 11.2 fL 6.2-12.0 [facility] Microscopic analysis of urin e for red blood cells (RBC)Ordered By: Bernard Nugent on 04-27-2024 Urine RBC 0-5 SEEN /hpf 0-5 [facility] Monocyte percentageOrdered B y: Bernard Nugent on 04-27-2024 Monocytes/100 WBC (Bld) 10.0 % 0-10 [facility] Mucus LM Ql (Urine sed)Order ed By: Bernard Nugent on 04-27-2024 Mucus Ql (Urine sed) 0 SEEN /hpf [facility] Neutrophil percentageOrdered By: Bernard Nugent on 04-27-2024 Neutrophils/100 WBC (Bld) 80.9 % High 47-70 [facility] Nitrite Test strip Ql (U)Ord ered By: Bernard Nugent on 04-27-2024 Nitrite Ql (U) Negative Negative [facility] Nucleated red blood cell per centageOrdered By: Bernard Nugent on 04-27-2024 Nucleated RBC/100 WBC (Bld) [Ratio] 0 % 0-5 [facility] Platelet countOrdered By: Vick Nugent on 04-27-2024 Platelets (Bld) [#/Vol] 212 10*3/uL 150-450 [facility] Potassium measurementOrdered By: Bernard Nugent on 04-27-2024 Potassium [Moles/Vol] 4.1 mmol/L 3.5-5.1 [facility] Protein Test strip Ql (U)Ord ered By: Bernard Nugent on 04-27-2024 Protein Ql (U) 30 mg/dl High Negative [facility] RBC Auto (Bld) [#/Vol]Ordere d By: Bernard Nugent on 04-27-2024 RBC (Bld) [#/Vol] 4.46 10*6/uL Low 4.6-6.2 [facility] Serum anion gap measurementO rdered By: Bernard Nugent on 04-27-2024 Anion gap [Moles/Vol] 7 mmol/L 5-15 [facility] Serum globulin measurementOr dered By: Bernard Nugent on 04-27-2024 Globulin (S) [Mass/Vol] 3.6 g/dL 2.2-4.2 [facility] Serum or plasma alanine erickson otransferase (ALT) measurementOrdered By: Bernard Nugent on 04-27-2024 ALT [Catalytic activity/Vol] 30 U/L 16-61 [facility] Serum or plasma albumin sita urement (mass/volume)Ordered By: Bernard Nugent on 04-27-2024 Albumin [Mass/Vol] 3.5 g/dL 3.2-5.0 [facility] Serum or plasma alkaline florencia sphatase measurementOrdered By: Bernard Nugent on 04-27-2024 ALP [Catalytic activity/Vol] 147 U/L High 45-117 [facility] Serum or plasma calcium sita urement (mass/volume)Ordered By: Bernard Nugent on 04-27-2024 Calcium [Mass/Vol] 8.4 mg/dL Low 8.5-10.1 [facility] Serum or plasma creatinine m easurement (mass/volume)Ordered By: Bernard Nugent on 04-27-2024 Creatinine [Mass/Vol] 1.41 mg/dL High 0.70-1.30 [facility] Comment on above: The validity of the calculated GFR & GFRAA in patients over 70 years has not been determined. Clinical correlation is essential. Serum or plasma urea nitroge n measurement (mass/volume)Ordered By: Bernard Nugent on 04-27-2024 Urea nitrogen [Mass/Vol] 14 mg/dL 7-18 [facility] Sodium levelOrdered By: Bernard Nugent 04-27-2024 Sodium [Moles/Vol] 135 mmol/L Low 136-145 [facility] TSH QnOrdered By: Bernard Nugent o n 04-27-2024 Thyroid Stimulating Hormone (TSH) 2.010 uIU/mL 0.358-3.740 [facility] Thyroid Stim Hormone (TSH)on 04-27-2024 TSH 2.010 uIU/mL Normal 0.358-3.740 [facility] Comment on above: Performed By: #### L 501.7300, L501.7400, L501.5500, L500.2500 #### [facility] [address] [place] [address]. [place], [place], [id number] Total proteinOrdered By: Bernard Nugent on 04-27-2024 Protein [Mass/Vol] 7.1 g/dL 6.4-8.2 [facility] Urinalysis, Completeon 04-27 BACTERIA 1+ /hpf Normal None Seen [facility] Comment on above: Order Comment: Urine , Random Performed By: #### L 501.7300, L501.7400, L501.5500, L500.2500 #### [facility] [address] [place], [address] EPI,SQUAMOUS 0-5 SEEN Normal 0-5 [facility] Comment on above: Order Comment: Urine , Random Performed By: #### L 501.7300, L501.7400, L501.5500, L500.2500 #### [facility] [address] [place], [address] RBC 0-5 SEEN Normal 0-5 [facility] Comment on above: Order Comment: Urine , Random Performed By: #### L 501.7300, L501.7400, L501.5500, L500.2500 #### [facility] [address] [place], [address] WBC 0-5 SEEN Normal 0-5 [facility] Comment on above: Order Comment: Urine , Random Performed By: #### L 501.7300, L501.7400, L501.5500, L500.2500 #### [facility] [address] [place], [address] Mucus Ql (Urine sed) 0 SEEN Normal [facility] Comment on above: Order Comment: Urine , Random Performed By: #### L 501.7300, L501.7400, L501.5500, L500.2500 #### [facility] [address] [place], [address] Urine blood detectionOrdered By: Bernard Nugent on 04-27-2024 Urine Occult Blood 10 /ul High Negative [facility] Urine clarityOrdered By: Bernard Nugent on 04-27-2024 Clarity (U) Clear Clear [facility] Urine color determinationOrd ered By: Bernard Nugent on 04-27-2024 Color (U) Yellow Yellow [facility] Urine leukocyte esterase det ection by dipstickOrdered By: Bernard Nugent on 04-27-2024 Leukocyte esterase Test strip Ql (U) Negative Negative [facility] Urine pHOrdered By: Bernard Nugent on 04-27-2024 pH (U) 6.5 [pH] 5.0 - 8.0 [facility] Urine sediment bacteria coun t by microscopy (number/high power field)Ordered By: Bernard Nugent on 04-27-2024 Bacteria LM.HPF (Urine sed) [#/Area] 1 /[HPF] None Seen [facility] Urine specific gravity measu rementOrdered By: Bernard Nugent on 04-27-2024 Specific gravity (U) [Rel density] 1.010 1.002-1.030 [facility] Urobilinogen Ql (U)Ordered B y: Bernard Nugent on 04-27-2024 Urobilinogen (U) [Mass/Vol] 1 mg/dL High Normal [facility] White blood cell (WBC) count Ordered By: Bernard Nugent on 04-27-2024 WBC (Bld) [#/Vol] 10.8 10*3/uL 4.4-11.0 [facility] White blood cell countOrdere d By: Bernard Nugent on 04-27-2024 Urine WBC 0-5 SEEN /hpf 0-5 [facility] 63-EP-Zsdoecs DOrdered By: Osei Nugent on 04-22-2024 Vitamin D 25-Hydroxy 31.0 ng/mL [facility] Comment on above: Vitamin D 25(OH) Sta tus Range Deficiency <20 ng/mL (50nmol/L) Insufficiency 20 - 30 ng/mL (50 - 75 nmol/L) Sufficiency 30 - 100 ng/mL (75 - 250 nmol/L) Toxicity >100 ng/mL (>250 nmol/L) Absolute neutrophil countOrd ered By: Bernard Nugent on 04-22-2024 Neutrophils (Bld) [#/Vol] 6.3 10*3/uL 2.0-7.7 [facility] Albumin to globulin ratioOrd ered By: Bernard Nugent on 04-22-2024 Albumin/Globulin [Mass ratio] 1.0 {ratio} 0.9-2.4 [facility] Basophil percentageOrdered B y: Bernard Raffi on 04-22-2024 Basophils/100 WBC (Bld) 0.6 % 0-1 [facility] Bilirubin, totalOrdered By: Bernard Nugent on 04-22-2024 Bilirubin [Mass/Vol] 2.50 mg/dL High 0.20-1.00 [facility] Comment on above: For patients on eltr ombopag therapy, use of [place] TBIL is not recommended. Blood urea nitrogen (BUN)/cr eatinine ratioOrdered By: Bernard Nugent on 04-22-2024 Urea nitrogen/Creatinine [Mass ratio] 10.7 mg/mg 10-20 [facility] CBC W/Diff, Automatedon Absolute Lymph 1.01 X10 3/uL Normal 0.83-4.51 [facility] Comment on above: Performed By: #### L 501.7300, L501.7400, L501.5500, L500.2500 #### [facility] [address] [place], [address] Absolute Neut 6.3 X10 3/uL Normal 2.0-7.7 [facility] Comment on above: Performed By: #### L 501.7300, L501.7400, L501.5500, L500.2500 #### [facility] [address] [place], [address] Basophils/100 WBC (Bld) 0.6 % Normal 0-1 [facility] Comment on above: Performed By: #### L 501.7300, L501.7400, L501.5500, L500.2500 #### [facility] [address] [place], [address] Eosinophils/100 WBC (Bld) 1.7 % Normal 0-5 [facility] Comment on above: Performed By: #### L 501.7300, L501.7400, L501.5500, L500.2500 #### [facility] [address] [place], [address] Erythrocyte distribution width (RBC) [Ratio] 15.2 % High 11.6-14.6 [facility] Comment on above: Performed By: #### L 501.7300, L501.7400, L501.5500, L500.2500 #### [facility] [address] [place], [address] Hematocrit (Bld) [Volume fraction] 41.1 % Normal 40-54 [facility] Comment on above: Performed By: #### L 501.7300, L501.7400, L501.5500, L500.2500 #### [facility] [address] [place], [address] Hemoglobin (Bld) [Mass/Vol] 13.8 g/dL Normal 13.0-16.5 [facility] Comment on above: Performed By: #### L 501.7300, L501.7400, L501.5500, L500.2500 #### [facility] [address] [place], [address] IG% 0.800 Normal 0.0-0.9 [facility] Comment on above: Result Comment: IG% - Immature Granulocytes (promyelocytes, myelocytes and metamyelocytes) > 1% indicates that a LEFT SHIFT is Present. Performed By: #### L 501.7300, L501.7400, L501.5500, L500.2500 #### [facility] [address] [place], [address] Lymphocytes/100 WBC (Bld) 12.1 % Low 19-41 [facility] Comment on above: Performed By: #### L 501.7300, L501.7400, L501.5500, L500.2500 #### [facility] [address] [place], [address] MCH (RBC) [Entitic mass] 30.2 pg Normal 27.0-32.0 [facility] Comment on above: Performed By: #### L 501.7300, L501.7400, L501.5500, L500.2500 #### [facility] [address] [place], [address] MCHC (RBC) [Mass/Vol] 33.6 g/dL Normal 32-36 [facility] Comment on above: Performed By: #### L 501.7300, L501.7400, L501.5500, L500.2500 #### [facility] [address] [place], [address] MCV (RBC) [Entitic vol] 89.9 fL Normal 80-[address] [facility] Comment on above: Performed By: #### L 501.7300, L501.7400, L501.5500, L500.2500 #### [facility] [address] [place], [address] Monocytes/100 WBC (Bld) 9.8 % Normal 0-[address] [facility] Comment on above: Performed By: #### L 501.7300, L501.7400, L501.5500, L500.2500 #### [facility] [address] [place], [address] Neutrophils/100 WBC (Bld) 75.0 % High 47-70 [facility] Comment on above: Performed By: #### L 501.7300, L501.7400, L501.5500, L500.2500 #### [facility] [address] [place], [address] Nucleated RBC (Bld) [#/Vol] 0 10*3/uL Normal 0-5 [facility] Comment on above: Performed By: #### L 501.7300, L501.7400, L501.5500, L500.2500 #### [facility] [address] [place], [address] Platelet mean volume (Bld) [Entitic vol] 10.7 fL Normal 6.2-12.0 [facility] Comment on above: Performed By: #### L 501.7300, L501.7400, L501.5500, L500.2500 #### [facility] [address] [place], [address] Platelets (Bld) [#/Vol] 195 10*3/uL Normal 150-450 [facility] Comment on above: Performed By: #### L 501.7300, L501.7400, L501.5500, L500.2500 #### [facility] [address] [place], [address] RBC (Bld) [#/Vol] 4.57 10*6/uL Low 4.6-6.2 [facility] Comment on above: Performed By: #### L 501.7300, L501.7400, L501.5500, L500.2500 #### [facility] [address] [place], [address] RDW SD 50.1 fl High 35.1-43.9 [facility] Comment on above: Performed By: #### L 501.7300, L501.7400, L501.5500, L500.2500 #### [facility] [address] [place], [address] WBC (Bld) [#/Vol] 8.4 10*3/uL Normal 4.4-11.0 [facility] Comment on above: Performed By: #### L 501.7300, L501.7400, L501.5500, L500.2500 #### [facility] [address] [place], [address] Carbon dioxide measurementOr dered By: Bernard Nugent on 12-04-2024 CO2 [Moles/Vol] 27.0 mmol/L 21.0-32.0 [facility] Chloride measurementOrdered By: Bernard Nugent on 04-22-2024 Chloride [Moles/Vol] 99 mmol/L 98-107 [facility] Comprehensive Metabolic Prof ilon 04-22-2024 Albumin [Mass/Vol] 3.4 g/dL Normal 3.2-5.0 [facility] Comment on above: Performed By: #### L 501.7300, L501.7400, L501.5500, L500.2500 #### [facility] [address] [place], [address] Albumin/Globulin [Mass ratio] 1.0 {ratio} Normal 0.9-2.4 [facility] Comment on above: Performed By: #### L 501.7300, L501.7400, L501.5500, L500.2500 #### [facility] [address] [place], [address] ALK P 126 U/L High 45-117 [facility] Comment on above: Performed By: #### L 501.7300, L501.7400, L501.5500, L500.2500 #### [facility] [address] [place], [address] ALT [Catalytic activity/Vol] 26 U/L Normal 16-61 [facility] Comment on above: Performed By: #### L 501.7300, L501.7400, L501.5500, L500.2500 #### [facility] [address] [place], [address] AST [Catalytic activity/Vol] 21 U/L Normal 15-37 [facility] Comment on above: Performed By: #### L 501.7300, L501.7400, L501.5500, L500.2500 #### [facility] [address] [place], [address] Bilirubin [Mass/Vol] 2.50 mg/dL High 0.20-1.00 [facility] Comment on above: Result Comment: For patients on eltrombopag therapy, use of [place] TBIL is not recommended. Performed By: #### L 501.7300, L501.7400, L501.5500, L500.2500 #### [facility] [address] [place], [address] BUN/CRE 10.7 RATIO Normal 10-20 [facility] Comment on above: Performed By: #### L 501.7300, L501.7400, L501.5500, L500.2500 #### [facility] [address] [place], [address] CA,Total 8.4 mg/dL Low 8.5-10.1 [facility] Comment on above: Performed By: #### L 501.7300, L501.7400, L501.5500, L500.2500 #### [facility] [address] [place], [address] Chloride [Moles/Vol] 99 mmol/L Normal 98-107 [facility] Comment on above: Performed By: #### L 501.7300, L501.7400, L501.5500, L500.2500 #### [facility] [address] [place], [address] CO2 [Moles/Vol] 27.0 mmol/L Normal 21.0-32.0 [facility] Comment on above: Performed By: #### L 501.7300, L501.7400, L501.5500, L500.2500 #### [facility] [address] [place], [address] Creatinine [Mass/Vol] 1.40 mg/dL High 0.70-1.30 [facility] Comment on above: Result Comment: The validity of the calculated GFR GFRAA in patients over 70 years has not been determined. Clinical correlation is essential. Performed By: #### L 501.7300, L501.7400, L501.5500, L500.2500 #### [facility] [address] [place], [address] EST GFR - AA 61 mL/min Normal >60 [facility] Comment on above: Result Comment: Afri can [place] GFR Calc Performed By: #### L 501.7300, L501.7400, L501.5500, L500.2500 #### [facility] [address] [place], [address] GAP 6 Normal 5-15 [facility] Comment on above: Performed By: #### L 501.7300, L501.7400, L501.5500, L500.2500 #### [facility] [address] [place], [address] GFR/1.73 sq M.predicted among non-blacks MDRD (S/P/Bld) [Vol rate/Area] 51 mL/min/{1.73_m2} Low >60 [facility] Comment on above: Result Comment: Non- GFR Calc Performed By: #### L 501.7300, L501.7400, L501.5500, L500.2500 #### [facility] [address] [place], [address] Globulin (S) [Mass/Vol] 3.5 g/dL Normal 2.2-4.[address] [facility] Comment on above: Performed By: #### L 501.7300, L501.7400, L501.5500, L500.2500 #### [facility] [address] [place], [address] Glucose [Mass/Vol] 165 mg/dL High 74-106 [facility] Comment on above: Result Comment: Fast ing Glucose result greater than or equal to 126 mg/dL suggests DIABETES MELLITUS per A.D.A. criteria. Performed By: #### L 501.7300, L501.7400, L501.5500, L500.2500 #### [facility] [address] [place], [address] Potassium [Moles/Vol] 4.6 mmol/L Normal 3.5-5.1 [facility] Comment on above: Performed By: #### L 501.7300, L501.7400, L501.5500, L500.2500 #### [facility] [address] [place], [address] Sodium [Moles/Vol] 133 mmol/L Low 136-145 [facility] Comment on above: Performed By: #### L 501.7300, L501.7400, L501.5500, L500.2500 #### [facility] [address] [place], [address] T PROT 6.9 g/dL Normal 6.4-8.2 [facility] Comment on above: Performed By: #### L 501.7300, L501.7400, L501.5500, L500.2500 #### [facility] [address] [place], [address] Urea nitrogen [Mass/Vol] 15 mg/dL Normal 7-18 [facility] Comment on above: Performed By: #### L 501.7300, L501.7400, L501.5500, L500.2500 #### [facility] [address] [place], [address] Eosinophil percentageOrdered By: Bernard Nugent on 04-22-2024 Eosinophils/100 WBC (Bld) 1.7 % 0-5 [facility] Erythrocyte distribution wid th ratioOrdered By: Bernard Nugent on 04-22-2024 Erythrocyte distribution width (RBC) [Ratio] 15.2 % High 11.6-14.6 [facility] Erythrocyte distribution wid th standard deviationOrdered By: Bernard Nugent on 04-22-2024 Erythrocyte distribution width (RBC) [Entitic vol] 50.1 fL High 35.1-43.9 [facility] Estimated glomerular filtrat ion rate (GFR) AmericanOrdered By: Bernard Nugent on 04-22-2024 Estimated GFR (MDRD) Amer 61 mL/min >60 [facility] Comment on above: GFR Calc Glomerular filtration rate ( GFR) estimationOrdered By: Bernard Nugent on 04-22-2024 Estimated GFR (MDRD) Non-Af Amer 51 mL/min Low >60 [facility] Comment on above: Non- GFR Calc Glucose measurementOrdered B y: Bernard Nugent on 04-22-2024 Glucose [Mass/Vol] 165 mg/dL High 74-106 [facility] Comment on above: Fasting Glucose resu lt greater than or equal to 126 mg/dL suggests DIABETES MELLITUS per A.D.A. criteria. Hematocrit Auto (Bld) [Volum e fraction]Ordered By: Bernard Nugent on 04-22-2024 Hematocrit (Bld) [Volume fraction] 41.1 % 40-54 [facility] Hemoglobin A1con 04-22-2024 HbA1c (Bld) [Mass fraction] 5.9 % High 3.8-5.6 [facility] Comment on above: Result Comment: Norm al < 5.7 % Prediabetic 5.7 - 6.4 % Diabetic >or= 6.5 % Please note range changes. Performed By: #### L 501.7300, L501.7400, L501.5500, L500.2500 #### [facility] [address] [place] [address], [id number] Hemoglobin A1c percentageOrd ered By: Bernard Nugent on 04-22-2024 HbA1c (Bld) [Mass fraction] 5.9 % High 3.8-5.6 [facility] Comment on above: Normal < 5.7 % Predi abetic 5.7 - 6.4 % Diabetic >or= 6.5 % Please note range changes. Hemoglobin measurementOrdere d By: Bernard Nugent on 04-22-2024 Hemoglobin (Bld) [Mass/Vol] 13.8 g/dL 13.0-16.5 [facility] High density lipoprotein (HD L) measurementOrdered By: Bernard Nugent on 04-22-2024 Cholesterol in HDL [Mass/Vol] 74 mg/dL >40 [facility] Comment on above: The drugs N-Acetylcy steine and Metamizole may falsely depress this assay. Reference Range HDL <40 mg/dL Low HDL Cholesterol HDL >or= 60 mg/dL High HDL Cholesterol Immature granulocytes/100 WB C Auto (Bld)Ordered By: Bernard Nugent on 04-22-2024 Immature granulocytes/100 WBC (Bld) 0.800 % 0.0-0.9 [facility] Comment on above: IG% - Immature Granu locytes (promyelocytes, myelocytes and metamyelocytes) > 1% indicates that a LEFT SHIFT is Present. Laboratory - Chemistry and C hemistry - challengeOrdered By: Bernard Nugent on 04-22-2024 AST [Catalytic activity/Vol] 21 U/L 15- [facility] Lipid Profileon 04-22-2024 Cholesterol [Mass/Vol] 127 mg/dL Normal 200 [facility] Comment on above: Result Comment: <200 mg/dL Desirable 200-240 mg/dL Borderline >240 mg/dL High Risk Performed By: #### L 501.7300, L501.7400, L501.5500, L500.2500 #### [facility] [address] [place], [address] Cholesterol in HDL [Mass/Vol] 74 mg/dL Normal [facility] Comment on above: Result Comment: The drugs N-Acetylcysteine and Metamizole may falsely depress this assay. Reference Range HDL <40 mg/dL Low HDL Cholesterol HDL >or= 60 mg/dL High HDL Cholesterol Performed By: #### L 501.7300, L501.7400, L501.5500, L500.2500 #### [facility] [address] [place], [address] Cholesterol in LDL [Mass/Vol] 40 mg/dL Normal 0-130 [facility] Comment on above: Performed By: #### L 501.7300, L501.7400, L501.5500, L500.2500 #### [facility] [address] [place], [address] Cholesterol in VLDL [Mass/Vol] 13 mg/dL Normal 5-40 [facility] Comment on above: Performed By: #### L 501.7300, L501.7400, L501.5500, L500.2500 #### [facility] [address] [place], [place], [id number] Triglyceride [Mass/Vol] 65 mg/dL Normal [facility] Comment on above: Result Comment: The drugs N-Acetylcysteine and Metamizole may falsely depress this assay. Serum Triglycerides Reference Interval Normal <150 mg/dL Borderline high 150 - 199 mg/dL High 200 - 499 mg/dL Very High > or = 500 mg/dL Performed By: #### L 501.7300, L501.7400, L501.5500, L500.2500 #### [facility] [address] [place], [place], [id number] Low density lipoprotein (LDL ) cholesterol measurementOrdered By: Bernard Nugent on 04-22-2024 Cholesterol in LDL [Mass/Vol] 40 mg/dL 0-130 [facility] Lymphocytes Auto (Unsp spec) [#/Vol]Ordered By: Bernard Nugent on 04-22-2024 Lymphocytes (Bld) [#/Vol] 1.01 10*3/uL 0.83-4.51 [facility] Lymphocytes/100 WBC Auto (Un sp spec)Ordered By: Bernard Nugent on 04-22-2024 Lymphocytes/100 WBC (Bld) 12.1 % Low 19-41 [facility] MCV (mean corpuscular volume ) determinationOrdered By: Bernard Nugent on 04-22-2024 MCV (RBC) [Entitic vol] 89.9 fL 80-[address] [facility] Mean corpuscular hemoglobin (MCH) determinationOrdered By: Bernard Nugent on 04-22-2024 MCH (RBC) [Entitic mass] 30.2 pg 27.0-32.0 [facility] Mean corpuscular hemoglobin concentration (MCHC) determinationOrdered By: Bernard Nugent on 04-22-2024 MCHC (RBC) [Mass/Vol] 33.6 g/dL 32-36 [facility] Mean platelet volume determi nationOrdered By: Bernard Nugent on 04-22-2024 Platelet mean volume (Bld) [Entitic vol] 10.7 fL 6.2-12.0 [facility] Monocyte percentageOrdered B y: Bernard Nugent on 04-22-2024 Monocytes/100 WBC (Bld) 9.8 % 0-10 [facility] Neutrophil percentageOrdered By: Bernard Nugent on 04-22-2024 Neutrophils/100 WBC (Bld) 75.0 % High 47-70 [facility] Nucleated red blood cell per centageOrdered By: Bernard Nugent on 04-22-2024 Nucleated RBC/100 WBC (Bld) [Ratio] 0 % 0-5 [facility] Platelet countOrdered By: Vick Nugent on 04-22-2024 Platelets (Bld) [#/Vol] 195 10*3/uL 150-450 [facility] Potassium measurementOrdered By: Bernard Nugent on 04-22-2024 Potassium [Moles/Vol] 4.6 mmol/L 3.5-5.1 [facility] RBC Auto (Bld) [#/Vol]Ordere d By: Bernard Nugent on 04-22-2024 RBC (Bld) [#/Vol] 4.57 10*6/uL Low 4.6-6.2 [facility] Serum anion gap measurementO rdered By: Bernard Nugent on 04-22-2024 Anion gap [Moles/Vol] 6 mmol/L 5-15 [facility] Serum globulin measurementOr dered By: Bernard Nugent on 04-22-2024 Globulin (S) [Mass/Vol] 3.5 g/dL 2.2-4.2 [facility] Serum or plasma alanine erickson otransferase (ALT) measurementOrdered By: Bernard Nugent 04-22-2024 ALT [Catalytic activity/Vol] 26 U/L 16-61 [facility] Serum or plasma albumin sita urement (mass/volume)Ordered By: Bernard Nugent on 04-22-2024 Albumin [Mass/Vol] 3.4 g/dL 3.2-5.0 [facility] Serum or plasma alkaline florecnia sphatase measurementOrdered By: Bernard Nugent on 04-22-2024 ALP [Catalytic activity/Vol] 126 U/L High 45-117 [facility] Serum or plasma calcium sita urement (mass/volume)Ordered By: Bernard Nugent on 04-22-2024 Calcium [Mass/Vol] 8.4 mg/dL Low 8.5-10.1 [facility] Serum or plasma cholesterol measurement (mass/volume)Ordered By: Bernard Nugent on 04-22-2024 Cholesterol [Mass/Vol] 127 mg/dL <200 [facility] Comment on above: <200 mg/dL Desirable 200-240 mg/dL Borderline >240 mg/dL High Risk Serum or plasma creatinine m easurement (mass/volume)Ordered By: Bernard Nugent on 04-22-2024 Creatinine [Mass/Vol] 1.40 mg/dL High 0.70-1.30 [facility] Comment on above: The validity of the calculated GFR & GFRAA in patients over 70 years has not been determined. Clinical correlation is essential. Serum or plasma urea nitroge n measurement (mass/volume)Ordered By: Bernard Nugent on 04-22-2024 Urea nitrogen [Mass/Vol] 15 mg/dL 7-18 [facility] Sodium levelOrdered By: Bernard Nugent on 04-22-2024 Sodium [Moles/Vol] 133 mmol/L Low 136-145 [facility] TSH QnOrdered By: Bernard Nugent o n 04-22-2024 Thyroid Stimulating Hormone (TSH) 2.610 uIU/mL 0.358-3.740 [facility] Thyroid Stim Hormone (TSH)on 04-22-2024 TSH 2.610 uIU/mL Normal 0.358-3.740 [facility] Comment on above: Performed By: #### L 501.7300, L501.7400, L501.5500, L500.2500 #### [facility] [address] [place], [address] Total proteinOrdered By: Bernard Nugent on 04-22-2024 Protein [Mass/Vol] 6.9 g/dL 6.4-8.2 [facility] Triglycerides measurementOrd ered By: Bernard Nugent on 04-22-2024 Triglyceride [Mass/Vol] 65 mg/dL <199 [facility] Comment on above: The drugs N-Acetylcy steine and Metamizole may falsely depress this assay.Serum Triglycerides Reference Interval Normal <150 mg/dL Borderline high 150 - 199 mg/dL High 200 - 499 mg/dL Very High > or = 500 mg/dL Very low density lipoprotein (VLDL) cholesterol measurementOrdered By: Bernard Nugent on 04-22-2024 VLDL Cholesterol 13 mg/dL 5-40 [facility] Vitamin D,25 Hydroxyon 04-22 Vitamin D 25-OH 31.0 ng/mL Normal [facility] Comment on above: Result Comment: Mary min D 25(OH) Status Range Deficiency <20 ng/mL (50nmol/L) Insufficiency 20 - 30 ng/mL (50 - 75 nmol/L) Sufficiency 30 - 100 ng/mL (75 - 250 nmol/L) Toxicity >100 ng/mL (>250 nmol/L) Performed By: #### L 501.7300, L501.7400, L501.5500, L500.2500 #### [facility] [address] [place], [address] White blood cell (WBC) count Ordered By: Bernard Nugent on 04-22-2024 WBC (Bld) [#/Vol] 8.4 10*3/uL 4.4-11.0 [facility] Cardiology Visit Reporton Cardiology Visit Report [facility] [address] [place], [place] [address] OFFICE VISIT Date of Service: 03/31/24 MR#: [id number] Acct: [id number] Name: ASHIA PEREZ Rep #: [id number] : 1935 Provider: Dr. Rodolfo Tobias MD Age/Sex: 88/M Location: [facility] [place] Status: Signed HPI HPI History of Present Illness Details: ASHIA PEREZ, is a 88 M with a history of paroxysmal atrial fibrillation, hypertension, and chronic right bundle branch block. Echocardiogram in 2018 demonstrated stage III diastolic dysfunction, estimated ejection [...] Monitor Intake Visit Reasons: 1 Y FU [employer] Required: No Accompanied by: Self Is patient [...] for SOB (more content not included)... Normal [facility] Basic Metabolic Profile (BMP )on 03-09-2024 BUN/CRE 16.9 RATIO Normal -20 [facility] Comment on above: Performed By: #### L 500.2500 #### [facility] [address] [place], [address] CA,Total 8.7 mg/dL Normal 8.5-10.1 [facility] Comment on above: Performed By: #### L 500.2500 #### [facility] [address] [place], [address] Chloride [Moles/Vol] 106 mmol/L Normal 98-107 [facility] Comment on above: Performed By: #### L 500.2500 #### [facility] [address] [place], [address] CO2 [Moles/Vol] 22.0 mmol/L Normal 21.0-32.0 [facility] Comment on above: Performed By: #### L 500.2500 #### [facility] [address] [place], [address] Creatinine [Mass/Vol] 1.42 mg/dL High 0.70-1.30 [facility] Comment on above: Result Comment: The validity of the calculated GFR GFRAA in patients over 70 years has not been determined. Clinical correlation is essential. Performed By: #### L 500.2500 #### [facility] [address] [place], [address] EST GFR - AA 61 mL/min Normal >60 [facility] Comment on above: Result Comment: Afri can [place] GFR Calc Performed By: #### L 500.2500 #### [facility] [address] [place], [address] GAP 5 Normal 5-15 [facility] Comment on above: Performed By: #### L 500.2500 #### [facility] [address] [place], [address] GFR/1.73 sq M.predicted among non-blacks MDRD (S/P/Bld) [Vol rate/Area] 50 mL/min/{1.73_m2} Low >60 [facility] Comment on above: Result Comment: Non- GFR Calc Performed By: #### L 500.2500 #### [facility] [address] [place], [address] Glucose [Mass/Vol] 113 mg/dL High 74-106 [facility] Comment on above: Result Comment: Fast ing Glucose result from 100 to 125 mg/dL suggests IMPAIRED HOMEOSTASIS per A.D.A. criteria. Performed By: #### L 500.2500 #### [facility] [address] [place], [address] Potassium [Moles/Vol] 4.7 mmol/L Normal 3.5-5.1 [facility] Comment on above: Performed By: #### L 500.2500 #### [facility] [address] [place], [address] Sodium [Moles/Vol] 133 mmol/L Low 136-145 [facility] Comment on above: Performed By: #### L 500.2500 #### [facility] [address] [place], [address] Urea nitrogen [Mass/Vol] 24 mg/dL High 7-18 [facility] Comment on above: Performed By: #### L 500.2500 #### [facility] [address] [place], [address] Basic Metabolic Profile (BMP )on 02-28-2024 BUN/CRE 17.2 RATIO Normal 10-20 [facility] Comment on above: Performed By: #### L 500.2500 #### [facility] [address] [place], [address] CA,Total 8.7 mg/dL Normal 8.5-10.1 [facility] Comment on above: Performed By: #### L 500.2500 #### [facility] [address] [place], [address] Chloride [Moles/Vol] 102 mmol/L Normal 98-107 [facility] Comment on above: Performed By: #### L 500.2500 #### [facility] [address] [place], [address] CO2 [Moles/Vol] 24.0 mmol/L Normal 21.0-32.0 [facility] Comment on above: Performed By: #### L 500.2500 #### [facility] [address] [place], [address] Creatinine [Mass/Vol] 1.34 mg/dL High 0.70-1.30 [facility] Comment on above: Result Comment: The validity of the calculated GFR GFRAA in patients over 70 years has not been determined. Clinical correlation is essential. Performed By: #### L 500.2500 #### [facility] [address] [place], [address] EST GFR - AA 65 mL/min Normal >60 [facility] Comment on above: Result Comment: Afri can [place] GFR Calc Performed By: #### L 500.2500 #### [facility] [address] [place], [address] GAP 5 Normal 5-15 [facility] Comment on above: Performed By: #### L 500.2500 #### [facility] [address] [place], [address] GFR/1.73 sq M.predicted among non-blacks MDRD (S/P/Bld) [Vol rate/Area] 53 mL/min/{1.73_m2} Low >60 [facility] Comment on above: Result Comment: Non- GFR Calc Performed By: #### L 500.2500 #### [facility] [address] [place], [address] Glucose [Mass/Vol] 104 mg/dL Normal 74-106 [facility] Comment on above: Result Comment: Fast ing Glucose result from 100 to 125 mg/dL suggests IMPAIRED HOMEOSTASIS per A.D.A. criteria. Performed By: #### L 500.2500 #### [facility] [address] [place], [address] Potassium [Moles/Vol] 4.3 mmol/L Normal 3.5-5.1 [facility] Comment on above: Performed By: #### L 500.2500 #### [facility] [address] [place], [address] Sodium [Moles/Vol] 132 mmol/L Low 136-145 [facility] Comment on above: Performed By: #### L 500.2500 #### [facility] [address] [place], [address] Urea nitrogen [Mass/Vol] 23 mg/dL High 7-18 [facility] Comment on above: Performed By: #### L 500.2500 #### [facility] [address] [place], [address] Basic Metabolic Profile (BMP )on 02-21-2024 BUN/CRE 9.0 RATIO Low 10-20 [facility] Comment on above: Performed By: #### L 501.7300, L501.7400, L501.5500, L500.2500 #### [facility] [address] [place], [address] CA,Total 8.5 mg/dL Normal 8.5-10.1 [facility] Comment on above: Performed By: #### L 501.7300, L501.7400, L501.5500, L500.2500 #### [facility] [address] [place], [address] Chloride [Moles/Vol] 96 mmol/L Low 98-107 [facility] Comment on above: Performed By: #### L 501.7300, L501.7400, L501.5500, L500.2500 #### [facility] [address] [place], [address] CO2 [Moles/Vol] 28.0 mmol/L Normal 21.0-32.0 [facility] Comment on above: Performed By: #### L 501.7300, L501.7400, L501.5500, L500.2500 #### [facility] [address] [place], [address] Creatinine [Mass/Vol] 1.34 mg/dL High 0.70-1.30 [facility] Comment on above: Result Comment: The validity of the calculated GFR GFRAA in patients over 70 years has not been determined. Clinical correlation is essential. Performed By: #### L 501.7300, L501.7400, L501.5500, L500.2500 #### [facility] [address] [place], [address] EST GFR - AA 65 mL/min Normal >60 [facility] Comment on above: Result Comment: Afri can [place] GFR Calc Performed By: #### L 501.7300, L501.7400, L501.5500, L500.2500 #### [facility] [address] [place], [address] GAP 4 Low 5-15 [facility] Comment on above: Performed By: #### L 501.7300, L501.7400, L501.5500, L500.2500 #### [facility] [address] [place], [address] GFR/1.73 sq M.predicted among non-blacks MDRD (S/P/Bld) [Vol rate/Area] 53 mL/min/{1.73_m2} Low >60 [facility] Comment on above: Result Comment: Non- GFR Calc Performed By: #### L 501.7300, L501.7400, L501.5500, L500.2500 #### [facility] [address] [place], [address] Glucose [Mass/Vol] 173 mg/dL High 74-106 [facility] Comment on above: Result Comment: Fast ing Glucose result greater than or equal to 126 mg/dL suggests DIABETES MELLITUS per A.D.A. criteria. Performed By: #### L 501.7300, L501.7400, L501.5500, L500.2500 #### [facility] [address] [place], [address] Potassium [Moles/Vol] 4.2 mmol/L Normal 3.5-5.1 [facility] Comment on above: Performed By: #### L 501.7300, L501.7400, L501.5500, L500.2500 #### [facility] [address] [place], [address] Sodium [Moles/Vol] 128 mmol/L Low 136-145 [facility] Comment on above: Performed By: #### L 501.7300, L501.7400, L501.5500, L500.2500 #### [facility] [address] [place], [address] Urea nitrogen [Mass/Vol] 12 mg/dL Normal 7-18 [facility] Comment on above: Performed By: #### L 501.7300, L501.7400, L501.5500, L500.2500 #### [facility] [address] [place], [address] Osmolality, Serumon 02-21-20 24 OSMOLALITY,SER 272 mOsm/KG Low 280-301 [facility] Comment on above: Performed By: #### L 501.7300, L501.7400, L501.5500, L500.2500 #### [facility] [address] [place], [address] Osmolality, Urineon 02-21-20 24 OSMOLALITY,UR 363 mOsm/KG Normal [facility] Comment on above: Result Comment: Normal Urine Reference Ranges Random: 50 - 1200 mOsm/kg H20 depending on fluid intake Random: >850 mOsm/kg after 12 hour fluid restriction 24 hour: 300 - 900 mOsm/kg H2O Performed By: #### L 501.7300, L501.7400, L501.5500, L500.2500 #### [facility] [address] [place], [address] Urine Sodiumon 02-21-2024 Sodium (U) [Moles/Vol] 56 mmol/L Normal Not Establ. [facility] Comment on above: Performed By: #### L 501.7300, L501.7400, L501.5500, L500.2500 #### [facility] [address] [place], [address] [employer] Inc Decub and/or Erecton 02-20-2024 Abd Inc Decub and/or Erect [facility] Imaging Services [address] [place] [address] [employer] Decub and/or Erect MR#: [id number] Acct: [id number] Name: ASHIA PEREZ Rep #: [id number] : 1935 M 88 From: Chirag Mckeon MD PCP: Dr. Bernard Nugent MD Status: REG CLI Study: Abd Inc Decub and/or Erect Date of Exam: 02/19 Exam# [id number] Ordering Dr: Bernard Nugent MD [id number] STUDY: X-RAY - ABDOMEN/PELVIS REASON FOR EXAM: [...] EDT , CC: Dr. Bernard Nugent MD [employer]: Signed Normal [facility] CBC W/Diff, Automatedon 10-0 -2023 Absolute Lymph 0.70 X10 3/uL Low 0.83-4.51 [facility] Comment on above: Performed By: #### L 501.7300, L501.7400, L501.5500, L500.2500 #### [facility] [address] [place], [address] Absolute Neut 6.3 X10 3/uL Normal 2.0-7.7 [facility] Comment on above: Performed By: #### L 501.7300, L501.7400, L501.5500, L500.2500 #### [facility] [address] [place], [address] Basophils/100 WBC (Bld) 0.5 % Normal 0-1 [facility] Comment on above: Performed By: #### L 501.7300, L501.7400, L501.5500, L500.2500 #### [facility] [address] [place], [address] Eosinophils/100 WBC (Bld) 0.3 % Normal 0-5 [facility] Comment on above: Performed By: #### L 501.7300, L501.7400, L501.5500, L500.2500 #### [facility] [address] [place], [address] Erythrocyte distribution width (RBC) [Ratio] 13.4 % Normal 11.6-14.6 [facility] Comment on above: Performed By: #### L 501.7300, L501.7400, L501.5500, L500.2500 #### [facility] [address] [place], [address] Hematocrit (Bld) [Volume fraction] 39.5 % Low 40-54 [facility] Comment on above: Performed By: #### L 501.7300, L501.7400, L501.5500, L500.2500 #### [facility] [address] [place], [address] Hemoglobin (Bld) [Mass/Vol] 13.4 g/dL Normal 13.0-16.5 [facility] Comment on above: Performed By: #### L 501.7300, L501.7400, L501.5500, L500.2500 #### [facility] [address] [place], [address] IG% 0.500 Normal 0.0-0.9 [facility] Comment on above: Result Comment: IG% - Immature Granulocytes (promyelocytes, myelocytes and metamyelocytes) > 1% indicates that a LEFT SHIFT is Present. Performed By: #### L 501.7300, L501.7400, L501.5500, L500.2500 #### [facility] [address] [place], [address] Lymphocytes/100 WBC (Bld) 8.9 % Low 19-41 [facility] Comment on above: Performed By: #### L 501.7300, L501.7400, L501.5500, L500.2500 #### [facility] [address] [facility] [place], [address] MCH (RBC) [Entitic mass] 29.0 pg Normal 27.0-32.0 [facility] Comment on above: Performed By: #### L 501.7300, L501.7400, L501.5500, L500.2500 #### [facility] [address] [place], [address] MCHC (RBC) [Mass/Vol] 33.9 g/dL Normal 32-36 [facility] Comment on above: Performed By: #### L 501.7300, L501.7400, L501.5500, L500.2500 #### [facility] [address] [place], [address] MCV (RBC) [Entitic vol] 85.5 fL Normal 80-[address] [facility] Comment on above: Performed By: #### L 501.7300, L501.7400, L501.5500, L500.2500 #### [facility] [address] [place] [place], [address] Monocytes/100 WBC (Bld) 10.5 % High 0-[address] [facility] Comment on above: Performed By: #### L 501.7300, L501.7400, L501.5500, L500.2500 #### [facility] [address] [place], [address] Neutrophils/100 WBC (Bld) 79.3 % High 47-70 [facility] Comment on above: Performed By: #### L 501.7300, L501.7400, L501.5500, L500.2500 #### [facility] [address] [place], [address] Nucleated RBC (Bld) [#/Vol] 0 10*3/uL Normal 0-5 [facility] Comment on above: Performed By: #### L 501.7300, L501.7400, L501.5500, L500.2500 #### [facility] [address] [place], [address] Platelet mean volume (Bld) [Entitic vol] 11.0 fL Normal 6.2-12.0 [facility] Comment on above: Performed By: #### L 501.7300, L501.7400, L501.5500, L500.2500 #### [facility] [address] [place], [address] Platelets (Bld) [#/Vol] 196 10*3/uL Normal 150-450 [facility] Comment on above: Performed By: #### L 501.7300, L501.7400, L501.5500, L500.2500 #### [facility] [address] [place], [address] RBC (Bld) [#/Vol] 4.62 10*6/uL Normal 4.6-6.2 [facility] Comment on above: Performed By: #### L 501.7300, L501.7400, L501.5500, L500.2500 #### [facility] [address] [place], [address] RDW SD 41.8 fl Normal 35.1-43.9 [facility] Comment on above: Performed By: #### L 501.7300, L501.7400, L501.5500, L500.2500 #### [facility] [address] [place], [address] WBC (Bld) [#/Vol] 7.9 10*3/uL Normal 4.4-11.0 [facility] Comment on above: Performed By: #### L 501.7300, L501.7400, L501.5500, L500.2500 #### [facility] [address] [place], [address] Comprehensive Metabolic Prof ilon 02-20-2024 Albumin [Mass/Vol] 3.5 g/dL Normal 3.2-5.0 [facility] Comment on above: Performed By: #### L 501.7300, L501.7400, L501.5500, L500.2500 #### [facility] [address] [place], [address] Albumin/Globulin [Mass ratio] 1.0 {ratio} Normal 0.9-2.4 [facility] Comment on above: Performed By: #### L 501.7300, L501.7400, L501.5500, L500.2500 #### [facility] [address] [place], [address] ALK P 103 U/L Normal 45-117 [facility] Comment on above: Performed By: #### L 501.7300, L501.7400, L501.5500, L500.2500 #### [facility] [address] [place], [address] ALT [Catalytic activity/Vol] 26 U/L Normal 16-61 [facility] Comment on above: Performed By: #### L 501.7300, L501.7400, L501.5500, L500.2500 #### [facility] [address] [place], [address] AST [Catalytic activity/Vol] 22 U/L Normal 15-37 [facility] Comment on above: Performed By: #### L 501.7300, L501.7400, L501.5500, L500.2500 #### [facility] [address] [place], [address] Bilirubin [Mass/Vol] 3.00 mg/dL High 0.20-1.00 [facility] Comment on above: Result Comment: For patients on eltrombopag therapy, use of Dimension [place] TBIL is not recommended. Performed By: #### L 501.7300, L501.7400, L501.5500, L500.2500 #### [facility] [address] [place], [address] BUN/CRE 9.3 RATIO Low 10-20 [facility] Comment on above: Performed By: #### L 501.7300, L501.7400, L501.5500, L500.2500 #### [facility] [address] [place], [address] CA,Total 8.7 mg/dL Normal 8.5-10.1 [facility] Comment on above: Performed By: #### L 501.7300, L501.7400, L501.5500, L500.2500 #### [facility] [address] [place], [address] Chloride [Moles/Vol] 93 mmol/L Low 98-107 [facility] Comment on above: Performed By: #### L 501.7300, L501.7400, L501.5500, L500.2500 #### [facility] [address] [place], [address] CO2 [Moles/Vol] 28.0 mmol/L Normal 21.0-32.0 [facility] Comment on above: Performed By: #### L 501.7300, L501.7400, L501.5500, L500.2500 #### [facility] [address] [place], [address] Creatinine [Mass/Vol] 1.29 mg/dL Normal 0.70-1.30 [facility] Comment on above: Result Comment: The validity of the calculated GFR GFRAA in patients over 70 years has not been determined. Clinical correlation is essential. Performed By: #### L 501.7300, L501.7400, L501.5500, L500.2500 #### [facility] [address] [place], [address] EST GFR - AA 68 mL/min Normal >60 [facility] Comment on above: Result Comment: Afri can [place] GFR Calc Performed By: #### L 501.7300, L501.7400, L501.5500, L500.2500 #### [facility] [address] [place], [address] GAP 5 Normal 5-15 [facility] Comment on above: Performed By: #### L 501.7300, L501.7400, L501.5500, L500.2500 #### [facility] [address] [place], [address] GFR/1.73 sq M.predicted among non-blacks MDRD (S/P/Bld) [Vol rate/Area] 56 mL/min/{1.73_m2} Low >60 [facility] Comment on above: Result Comment: Non- GFR Calc Performed By: #### L 501.7300, L501.7400, L501.5500, L500.2500 #### [facility] [address] [place], [address] Globulin (S) [Mass/Vol] 3.4 g/dL Normal 2.2-4.[address] [facility] Comment on above: Performed By: #### L 501.7300, L501.7400, L501.5500, L500.2500 #### [facility] [address] [place], [address] Glucose [Mass/Vol] 162 mg/dL High 74-106 [facility] Comment on above: Result Comment: Fast ing Glucose result greater than or equal to 126 mg/dL suggests DIABETES MELLITUS per A.D.A. criteria. Performed By: #### L 501.7300, L501.7400, L501.5500, L500.2500 #### [facility] [address] [place], [address] Potassium [Moles/Vol] 4.3 mmol/L Normal 3.5-5.1 [facility] Comment on above: Performed By: #### L 501.7300, L501.7400, L501.5500, L500.2500 #### [facility] [address] [place], [address] Sodium [Moles/Vol] 126 mmol/L Low 136-145 [facility] Comment on above: Performed By: #### L 501.7300, L501.7400, L501.5500, L500.2500 #### [facility] [address] [place], [address] T PROT 6.9 g/dL Normal 6.4-8.2 [facility] Comment on above: Performed By: #### L 501.7300, L501.7400, L501.5500, L500.2500 #### [facility] [address] [place], [address] Urea nitrogen [Mass/Vol] 12 mg/dL Normal 7-18 [facility] Comment on above: Performed By: #### L 501.7300, L501.7400, L501.5500, L500.2500 #### [facility] [address] [place], [address] Urinalysis, Completeon 02-19 RBC 5-10 SEEN Normal 0-5 [facility] Comment on above: Order Comment: Urine , Random Performed By: #### L 501.7300, L501.7400, L501.5500, L500.2500 #### [facility] [address] [place], [address] BILIRUBIN URINE Negative Normal Negative [facility] Comment on above: Order Comment: Urine , Random Performed By: #### L 501.7300, L501.7400, L501.5500, L500.2500 #### [facility] [address] [place], [address] Clarity (U) Clear Normal Clear [facility] Comment on above: Order Comment: Urine , Random Performed By: #### L 501.7300, L501.7400, L501.5500, L500.2500 #### [facility] [address] [place], [address] Color (U) Straw Normal Yellow [facility] Comment on above: Order Comment: Urine , Random Performed By: #### L 501.7300, L501.7400, L501.5500, L500.2500 #### [facility] [address] [place], [address] GLUCOSE, UR Normal Normal Normal [facility] Comment on above: Order Comment: Urine , Random Performed By: #### L 501.7300, L501.7400, L501.5500, L500.2500 #### [facility] [address] [place], [address] KETONE UR Negative Normal Negative [facility] Comment on above: Order Comment: Urine , Random Performed By: #### L 501.7300, L501.7400, L501.5500, L500.2500 #### [facility] [address] [place], [address] LEUK ESTERASE Negative Normal Negative [facility] Comment on above: Order Comment: Urine , Random Performed By: #### L 501.7300, L501.7400, L501.5500, L500.2500 #### [facility] [address] [place], [address] Nitrite Ql (U) Negative Normal Negative [facility] Comment on above: Order Comment: Urine , Random Performed By: #### L 501.7300, L501.7400, L501.5500, L500.2500 #### [facility] [address] [place], [address] OCCULT BLOOD-UR 10 /ul Abnormal Negative [facility] Comment on above: Order Comment: Urine , Random Performed By: #### L 501.7300, L501.7400, L501.5500, L500.2500 #### [facility] [address] [place], [address] pH UR 7.0 Normal 5.0 - 8.0 [facility] Comment on above: Order Comment: Urine , Random Performed By: #### L 501.7300, L501.7400, L501.5500, L500.2500 #### [facility] [address] [place], [address] PROT DIPSTX 30 mg/dl Abnormal Negative [facility] Comment on above: Order Comment: Urine , Random Performed By: #### L 501.7300, L501.7400, L501.5500, L500.2500 #### [facility] [address] [place], [address] SP.GR. DIPSTX 1.005 Normal 1.002-1.030 [facility] Comment on above: Order Comment: Urine , Random Performed By: #### L 501.7300, L501.7400, L501.5500, L500.2500 #### [facility] [address] [place], [address] UROBILI Normal Normal Normal [facility] Comment on above: Order Comment: Urine , Random Performed By: #### L 501.7300, L501.7400, L501.5500, L500.2500 #### [facility] [address] [place], [address] BACTERIA 0 SEEN Normal None Seen [facility] Comment on above: Order Comment: Urine , Random Performed By: #### L 501.7300, L501.7400, L501.5500, L500.2500 #### [facility] [address] [place], [address] EPI,SQUAMOUS 0 SEEN Normal 0-5 [facility] Comment on above: Order Comment: Urine , Random Performed By: #### L 501.7300, L501.7400, L501.5500, L500.2500 #### [facility] [address] [place], [address] Mucus Ql (Urine sed) 0 SEEN Normal [facility] Comment on above: Order Comment: Urine , Random Performed By: #### L 501.7300, L501.7400, L501.5500, L500.2500 #### [facility] [address] [place], [address] WBC 0 SEEN Normal 0-5 [facility] Comment on above: Order Comment: Urine , Random Performed By: #### L 501.7300, L501.7400, L501.5500, L500.2500 #### [facility] [address] [place], [address] CBC W/Diff, Automatedon 09-0 6-2024 Absolute Lymph 1.05 X10 3/uL Normal 0.83-4.51 [facility] Comment on above: Performed By: #### L 100.0100, M100.7900 #### [facility] [address] [place], [address] Absolute Neut 5.6 X10 3/uL Normal 2.0-7.7 [facility] Comment on above: Performed By: #### L 100.0100, M100.7900 #### [facility] [address] [place], [address] Basophils/100 WBC (Bld) 0.7 % Normal 0-1 [facility] Comment on above: Performed By: #### L 100.0100, M100.7900 #### [facility] [address] [place], [address] Eosinophils/100 WBC (Bld) 4.7 % Normal 0-5 [facility] Comment on above: Performed By: #### L 100.0100, M100.7900 #### [facility] [address] [place], [address] Erythrocyte distribution width (RBC) [Ratio] 12.9 % Normal 11.6-14.6 [facility] Comment on above: Performed By: #### L 100.0100, M100.7900 #### [facility] [address] [place], [address] Hematocrit (Bld) [Volume fraction] 40.8 % Normal 40-54 [facility] Comment on above: Performed By: #### L 100.0100, M100.7900 #### [facility] [address] [place], [address] Hemoglobin (Bld) [Mass/Vol] 13.6 g/dL Normal 13.0-16.5 [facility] Comment on above: Performed By: #### L 100.0100, M100.7900 #### [facility] [address] [place], [address] IG% 0.600 Normal 0.0-0.9 [facility] Comment on above: Result Comment: IG% - Immature Granulocytes (promyelocytes, myelocytes and metamyelocytes) > 1% indicates that a LEFT SHIFT is Present. Performed By: #### L 100.0100, M100.7900 #### [facility] [address] [place], [address] Lymphocytes/100 WBC (Bld) 13.1 % Low 19-41 [facility] Comment on above: Performed By: #### L 100.0100, M100.7900 #### [facility] [address] [place], [address] MCH (RBC) [Entitic mass] 29.4 pg Normal 27.0-32.0 [facility] Comment on above: Performed By: #### L 100.0100, M100.7900 #### [facility] [address] [place], [address] MCHC (RBC) [Mass/Vol] 33.3 g/dL Normal 32-36 [facility] Comment on above: Performed By: #### L 100.0100, M100.7900 #### [facility] [address] [place], [address] MCV (RBC) [Entitic vol] 88.3 fL Normal 80-[address] [facility] Comment on above: Performed By: #### L 100.0100, M100.7900 #### [facility] [address] [place], [address] Monocytes/100 WBC (Bld) 11.3 % High 0-10 [facility] Comment on above: Performed By: #### L 100.0100, M100.7900 #### [facility] [address] [place], [address] Neutrophils/100 WBC (Bld) 69.6 % Normal 47-70 [facility] Comment on above: Performed By: #### L 100.0100, M100.7900 #### [facility] [address] [place], [address] Nucleated RBC (Bld) [#/Vol] 0 10*3/uL Normal 0-5 [facility] Comment on above: Performed By: #### L 100.0100, M100.7900 #### [facility] [address] [place], [address] Platelet mean volume (Bld) [Entitic vol] 10.7 fL Normal 6.2-12.0 [facility] Comment on above: Performed By: #### L 100.0100, M100.7900 #### [facility] [address] [place], [address] Platelets (Bld) [#/Vol] 171 10*3/uL Normal 150-450 [facility] Comment on above: Performed By: #### L 100.0100, M100.7900 #### [facility] [address] [place], [address] RBC (Bld) [#/Vol] 4.62 10*6/uL Normal 4.6-6.2 [facility] Comment on above: Performed By: #### L 100.0100, M100.7900 #### [facility] [address] [place], [address] RDW SD 41.4 fl Normal 35.1-43.9 [facility] Comment on above: Performed By: #### L 100.0100, M100.7900 #### [facility] [address] [place], [address] WBC (Bld) [#/Vol] 8.0 10*3/uL Normal 4.4-11.0 [facility] Comment on above: Performed By: #### L 100.0100, M100.7900 #### [facility] [address] [place], [address] Comprehensive Metabolic Prof [facility] 01-24-2024 Albumin [Mass/Vol] 3.3 g/dL Normal 3.2-5.0 [facility] Comment on above: Performed By: #### L 100.0100, M100.7900 #### [facility] [address] [place], [address] Albumin/Globulin [Mass ratio] 0.9 {ratio} Normal 0.9-2.4 [facility] Comment on above: Performed By: #### L 100.0100, M100.7900 #### [facility] [address] [place], [address] ALK P 136 U/L High 45-117 [facility] Comment on above: Performed By: #### L 100.0100, M100.7900 #### [facility] [address] [place], [address] ALT [Catalytic activity/Vol] 22 U/L Normal 16-61 [facility] Comment on above: Performed By: #### L 100.0100, M100.7900 #### [facility] [address] [place], [address] AST [Catalytic activity/Vol] 19 U/L Normal 15-37 [facility] Comment on above: Result Comment: Slig ht Hemolysis, Result may be falsely increased. Performed By: #### L 100.0100, M100.7900 #### [facility] [address] [place], [address] Bilirubin [Mass/Vol] 1.50 mg/dL High 0.20-1.00 [facility] Comment on above: Result Comment: For patients on eltrombopag therapy, use of Dimension [place] TBIL is not recommended. Performed By: #### L 100.0100, M100.7900 #### [facility] [address] [place], [address] BUN/CRE 10.2 RATIO Normal 10-20 [facility] Comment on above: Performed By: #### L 100.0100, M100.7900 #### [facility] [address] [place], [address] CA,Total 8.6 mg/dL Normal 8.5-10.1 [facility] Comment on above: Performed By: #### L 100.0100, M100.7900 #### [facility] [address] [place], [address] Chloride [Moles/Vol] 98 mmol/L Normal 98-107 [facility] Comment on above: Performed By: #### L 100.0100, M100.7900 #### [facility] [address] [place], [address] CO2 [Moles/Vol] 27.0 mmol/L Normal 21.0-32.0 [facility] Comment on above: Performed By: #### L 100.0100, M100.7900 #### [facility] [address] [place], [address] Creatinine [Mass/Vol] 1.67 mg/dL High 0.70-1.30 [facility] Comment on above: Result Comment: The validity of the calculated GFR GFRAA in patients over 70 years has not been determined. Clinical correlation is essential. Performed By: #### L 100.0100, M100.7900 #### [facility] [address] [place], [address] EST GFR - AA 50 mL/min Low >60 [facility] Comment on above: Result Comment: Afri can [place] GFR Calc Performed By: #### L 100.0100, M100.7900 #### [facility] [address] [place], [address] GAP 7 Normal 5-15 [facility] Comment on above: Performed By: #### L 100.0100, M100.7900 #### [facility] [address] [place] [place], [address] GFR/1.73 sq M.predicted among non-blacks MDRD (S/P/Bld) [Vol rate/Area] 41 mL/min/{1.73_m2} Low >60 [facility] Comment on above: Result Comment: Non- GFR Calc Performed By: #### L 100.0100, M100.7900 #### [facility] [address] [place], [address] Globulin (S) [Mass/Vol] 3.8 g/dL Normal 2.2-4.[address] [facility] Comment on above: Performed By: #### L 100.0100, M100.7900 #### [facility] [address] [place], [address] Glucose [Mass/Vol] 190 mg/dL High 74-106 [facility] Comment on above: Result Comment: Fast ing Glucose result greater than or equal to 126 mg/dL suggests DIABETES MELLITUS per A.D.A. criteria. Performed By: #### L 100.0100, M100.7900 #### [facility] [address] [place], [address] Potassium [Moles/Vol] 4.6 mmol/L Normal 3.5-5.1 [facility] Comment on above: Result Comment: Slig ht Hemolysis, Result may be falsely increased. Performed By: #### L 100.0100, M100.7900 #### [facility] [address] [place], [address] Sodium [Moles/Vol] 132 mmol/L Low 136-145 [facility] Comment on above: Performed By: #### L 100.0100, M100.7900 #### [facility] [address] [place], [address] T PROT 7.1 g/dL Normal 6.4-8.2 [facility] Comment on above: Performed By: #### L 100.0100, M100.7900 #### [facility] [address] [place], [address] Urea nitrogen [Mass/Vol] 17 mg/dL Normal 7-18 [facility] Comment on above: Performed By: #### L 100.0100, M100.7900 #### [facility] [address] [place], [address] Hemoglobin A1con 01-24-2024 HbA1c (Bld) [Mass fraction] 6.1 % High 3.8-5.6 [facility] Comment on above: Result Comment: Norm al < 5.7 % Prediabetic 5.7 - 6.4 % Diabetic >or= 6.5 % Please note range changes. Performed By: #### L 100.0100, M100.7900 #### [facility] [address] [place], [address] Lipid Profileon 01-24-2024 Cholesterol [Mass/Vol] 113 mg/dL Normal 200 [facility] Comment on above: Result Comment: <200 mg/dL Desirable 200-240 mg/dL Borderline >240 mg/dL High Risk Performed By: #### L 100.0100, M100.7900 #### [facility] [address] [place], [address] Cholesterol in HDL [Mass/Vol] 56 mg/dL Normal [facility] Comment on above: Result Comment: The drugs N-Acetylcysteine and Metamizole may falsely depress this assay. Reference Range HDL <40 mg/dL Low HDL Cholesterol HDL >or= 60 mg/dL High HDL Cholesterol Performed By: #### L 100.0100, M100.7900 #### [facility] [address] [place], [address] Cholesterol in LDL [Mass/Vol] 41 mg/dL Normal 0-130 [facility] Comment on above: Performed By: #### L 100.0100, M100.7900 #### [facility] [address] [place], [address] Cholesterol in VLDL [Mass/Vol] 16 mg/dL Normal 5-40 [facility] Comment on above: Performed By: #### L 100.0100, M100.7900 #### [facility] [address] [place], [address] Triglyceride [Mass/Vol] 80 mg/dL Normal [facility] Comment on above: Result Comment: The drugs N-Acetylcysteine and Metamizole may falsely depress this assay. Serum Triglycerides Reference Interval Normal <150 mg/dL Borderline high 150 - 199 mg/dL High 200 - 499 mg/dL Very High > or = 500 mg/dL Performed By: #### L 100.0100, M100.7900 #### [facility] [address] [place], [address] Thyroid Stim Hormone (TSH)on 01-24-2024 TSH 2.480 uIU/mL Normal 0.358-3.740 [facility] Comment on above: Performed By: #### L 100.0100, M100.7900 #### [facility] [address] [place], [address] Vitamin D,25 Hydroxyon 01-23 Vitamin D 25-OH 33.6 ng/mL Normal [facility] Comment on above: Result Comment: Mary min D 25(OH) Status Range Deficiency <20 ng/mL (50nmol/L) Insufficiency 20 - 30 ng/mL (50 - 75 nmol/L) Sufficiency 30 - 100 ng/mL (75 - 250 nmol/L) Toxicity >100 ng/mL (>250 nmol/L) Performed By: #### L 100.0100, M100.7900 #### [facility] [address] [place], [address] Absolute lymphocyte countOrd ered By: Bernard Nugent on 07-24-2023 Lymphocytes Auto (Unsp spec) [#/Vol] 1.16 10*3/uL 0.83-4.51 [facility] Automated lymphocyte count a s percentage of total leukocytesOrdered By: Bernard Nugent on 07-24-2023 Lymphocytes/100 WBC Auto (Unsp spec) 12.7 % 19-41 [facility] Basophil percentageOrdered B y: Bernard Nugent on 07-24-2023 Basophils/100 WBC (Bld) 0.4 % 0-1 [facility] Bilirubin [Mass/Vol] 2.20 mg/dL 0.20-1.00 [facility] Comment on above: For patients on eltr ombopag therapy, use of Dimension [place] TBIL is not recommended. Chloride [Moles/Vol] 103 mmol/L 98-107 [facility] Cholesterol [Mass/Vol] 131 mg/dL <200 [facility] Comment on above: <200 mg/dL Desirable 200-240 mg/dL Borderline >240 mg/dL High Risk Eosinophils/100 WBC (Bld) 3.0 % 0-5 [facility] Glucose [Mass/Vol] 191 mg/dL 74-106 [facility] Comment on above: Fasting Glucose resu lt greater than or equal to 126 mg/dL suggests DIABETES MELLITUS per A.D.A. criteria. Hemoglobin (Bld) [Mass/Vol] 14.6 g/dL 13.0-16.5 [facility] Monocytes/100 WBC (Bld) 8.1 % 0-10 [facility] Neutrophils (Bld) [#/Vol] 6.9 10*3/uL 2.0-7.7 [facility] Neutrophils/100 WBC (Bld) 75.0 % 47-70 [facility] Potassium [Moles/Vol] 4.2 mmol/L 3.5-5.1 [facility] Protein [Mass/Vol] 6.7 g/dL 6.4-8.2 [facility] Sodium [Moles/Vol] 135 mmol/L 136-145 [facility] Triglyceride [Mass/Vol] 130 mg/dL <[address] [facility] Comment on above: The drugs N-Acetylcy steine and Metamizole may falsely depress this assay.Serum Triglycerides Reference Interval Normal <150 mg/dL Borderline high 150 - 199 mg/dL High 200 - 499 mg/dL Very High > or = 500 mg/dL WBC (Bld) [#/Vol] 9.1 10*3/uL 4.4-11.0 [facility] Determination of erythrocyte mean corpuscular volume (MCV)Ordered By: Bernard Nugent on 07-24-2023 MCV (RBC) [Entitic vol] 90.3 fL 80-94 [facility] Erythrocyte distribution wid th ratioOrdered By: Bernard Nugent on 07-24-2023 Erythrocyte distribution width (RBC) [Ratio] 13.2 % 11.6-14.6 [facility] Erythrocyte distribution wid th standard deviationOrdered By: Bernard Nugent on 07-24-2023 Erythrocyte distribution width (RBC) [Entitic vol] 44.2 fL 35.1-43.9 [facility] Hematocrit Auto (Bld) [Volum e fraction]Ordered By: Bernard Nugent on 07-24-2023 Hematocrit (Bld) [Volume fraction] 42.7 % 40-54 [facility] Immature granulocytes/100 WB C Auto (Bld)Ordered By: Bernard Nugent on 07-24-2023 Immature granulocytes/100 WBC (Bld) 0.800 % 0.0-0.9 [facility] Comment on above: IG% - Immature Granu locytes (promyelocytes, myelocytes and metamyelocytes) > 1% indicates that a LEFT SHIFT is Present. Laboratory - Chemistry and C hemistry - challengeOrdered By: Bernard Nugent on 07-24-2023 Albumin/Globulin [Mass ratio] 1.0 {ratio} 0.9-2.4 [facility] ALP [Catalytic activity/Vol] 126 U/L 45-117 [facility] ALT [Catalytic activity/Vol] 20 U/L 16-61 [facility] Cholesterol in HDL [Mass/Vol] 53 mg/dL >40 [facility] Comment on above: The drugs N-Acetylcy steine and Metamizole may falsely depress this assay. Reference Range HDL <40 mg/dL Low HDL Cholesterol HDL >or= 60 mg/dL High HDL Cholesterol Cholesterol in LDL [Mass/Vol] 52 mg/dL 0-130 [facility] CO2 [Moles/Vol] 25.0 mmol/L 21.0-32.0 [facility] Globulin (S) [Mass/Vol] 3.4 g/dL 2.2-4.[address] [facility] Urea nitrogen/Creatinine [Mass ratio] 9.4 mg/mg 10-20 [facility] - Hematology and Cell countsOrdered By: Bernard Nugent on 07-24-2023 MCH (RBC) [Entitic mass] 30.9 pg 27.0-32.0 [facility] MCHC (RBC) [Mass/Vol] 34.2 g/dL 32-36 [facility] Nucleated RBC/100 WBC (Bld) [Ratio] 0 % 0-5 [facility] Platelet mean volume (Bld) [Entitic vol] 11.6 fL 6.2-12.0 [facility] Platelets (Bld) [#/Vol] 241 10*3/uL 150-450 [facility] No Panel InformationOrdered By: Bernard Nugent on 07-24-2023 Estimated GFR (MDRD) Amer 49 mL/min >60 [facility] Comment on above: GFR Calc Estimated GFR (MDRD) Non-Af Amer 41 mL/min >60 [facility] Comment on above: Non- GFR Calc Vitamin D 25-Hydroxy 32.0 ng/mL [facility] Comment on above: Vitamin D 25(OH) Sta tus Range Deficiency <20 ng/mL (50nmol/L) Insufficiency 20 - 30 ng/mL (50 - 75 nmol/L) Sufficiency 30 - 100 ng/mL (75 - 250 nmol/L) Toxicity >100 ng/mL (>250 nmol/L) VLDL Cholesterol 26 mg/dL 5-40 [facility] RBC Auto (Bld) [#/Vol]Ordere d By: Bernard Nugent on 07-24-2023 RBC (Bld) [#/Vol] 4.73 10*6/uL 4.6-6.2 [facility] Serum or plasma calcium sita urement (mass/volume)Ordered By: Bernard Nugent on 07-24-2023 Calcium [Mass/Vol] 8.8 mg/dL 8.5-10.1 [facility] Serum or plasma creatinine m easurement (mass/volume)Ordered By: Bernard Nugent on 07-24-2023 Creatinine [Mass/Vol] 1.70 mg/dL 0.70-1.30 [facility] Comment on above: The validity of the calculated GFR & GFRAA in patients over 70 years has not been determined. Clinical correlation is essential. Serum or plasma thyroid stim ulating hormone (TSH) measurement (units/volume)Ordered By: Bernard Nugent on 07-24-2023 TSH Qn 6.68 uIU/mL 0.358-3.74 [facility] Serum or plasma urea nitroge n measurement (mass/volume)Ordered By: Bernard Nugent on 07-24-2023 Urea nitrogen [Mass/Vol] 16 mg/dL 7-18 [facility] Thin prep Papanicolaou smear with manual screeningOrdered By: Bernard Nugent on 07-24-2023 Thin prep Papanicolaou smear with manual screening 3.3 g/dL 3.2-5.0 [facility] Thin prep Papanicolaou smear with manual screening 15 U/L 15-37 [facility] Thin prep Papanicolaou smear with manual screening 7 5-15 [facility] Whole blood hemoglobin A1c/t otal hemoglobin ratio (mass fraction)Ordered By: Bernard Nugent on 07-24-2023 HbA1c (Bld) [Mass fraction] 6.2 % 3.8-5.6 [facility] Comment on above: Normal < 5.7 % Predi abetic 5.7 - 6.4 % Diabetic >or= 6.5 % Please note range changes. Absolute lymphocyte countOrd ered By: Ray Stuart on 07-07-2023 Lymphocytes Auto (Unsp spec) [#/Vol] 0.52 10*3/uL 0.83-4.51 [facility] Automated lymphocyte count a s percentage of total leukocytesOrdered By: Ray Stuart on 07-07-2023 Lymphocytes/100 WBC Auto (Unsp spec) 2.9 % 19-41 [facility] Basophil percentageOrdered B y: Ray Stuart on 07-07-2023 Basophils/100 WBC (Bld) 0.3 % 0-1 [facility] Chloride [Moles/Vol] 99 mmol/L 98-107 [facility] Eosinophils/100 WBC (Bld) 0.4 % 0-5 [facility] Glucose [Mass/Vol] 243 mg/dL 74-106 [facility] Comment on above: Glucose result great er than or equal to 200 mg/dLsuggests DIABETES MELLITUS per A.D.A. criteria. Hemoglobin (Bld) [Mass/Vol] 16.5 g/dL 13.0-16.5 [facility] Monocytes/100 WBC (Bld) 7.1 % 0-10 [facility] Neutrophils (Bld) [#/Vol] 15.7 10*3/uL 2.0-7.7 [facility] Neutrophils/100 WBC (Bld) 88.7 % 47-70 [facility] Potassium [Moles/Vol] 3.8 mmol/L 3.5-5.1 [facility] Sodium [Moles/Vol] 134 mmol/L 136-145 [facility] WBC (Bld) [#/Vol] 17.7 10*3/uL 4.4-11.0 [facility] Basophil percentage 0 SEEN /hpf 0-5 [facility] Bilirubin Test strip Ql (U)O rdered By: Ray Stuart on 07-07-2023 Bilirubin Ql (U) Negative Negative [facility] Determination of erythrocyte mean corpuscular volume (MCV)Ordered By: Ray Stuart on 07-07-2023 MCV (RBC) [Entitic vol] 90.6 fL 80-94 [facility] Erythrocyte distribution wid th ratioOrdered By: Ray Stuart on 07-07-2023 Erythrocyte distribution width (RBC) [Ratio] 13.5 % 11.6-14.6 [facility] Erythrocyte distribution wid th standard deviationOrdered By: Ray Stuart on 07-07-2023 Erythrocyte distribution width (RBC) [Entitic vol] 45.1 fL 35.1-43.9 [facility] Hematocrit Auto (Bld) [Volum e fraction]Ordered By: Ray Stuart on 07-07-2023 Hematocrit (Bld) [Volume fraction] 48.1 % 40-54 [facility] Immature granulocytes/100 WB C Auto (Bld)Ordered By: Ray Stuart on 07-07-2023 Immature granulocytes/100 WBC (Bld) 0.600 % 0.0-0.9 [facility] Comment on above: IG% - Immature Granu locytes (promyelocytes, myelocytes and metamyelocytes) > 1% indicates that a LEFT SHIFT is Present. Ketones Test strip Ql (U)Ord ered By: Ray Stuart on 07-07-2023 Ketones Ql (U) Negative Negative [facility] - Chemistry and C hemistry - challengeOrdered By: Ray Stuart on 07-07-2023 CO2 [Moles/Vol] 29.0 mmol/L 21.0-32.0 [facility] Natriuretic peptide B (Bld) [Mass/Vol] 332.6 pg/mL 0-100 [facility] Urea nitrogen/Creatinine [Mass ratio] 7.4 mg/mg 10-20 [facility] - Hematology and Cell countsOrdered By: Ray Stuart on 07-07-2023 MCH (RBC) [Entitic mass] 31.1 pg 27.0-32.0 [facility] MCHC (RBC) [Mass/Vol] 34.3 g/dL 32-36 [facility] Nucleated RBC/100 WBC (Bld) [Ratio] 0 % 0-5 [facility] Platelet mean volume (Bld) [Entitic vol] 11.7 fL 6.2-12.0 [facility] Platelets (Bld) [#/Vol] 199 10*3/uL 150-450 [facility] - Microbiology an d Antimicrobial susceptibilityOrdered By: Ray Stuart on 07-07-2023 SARS-CoV-2 (COVID-19) RNA MELIZA+probe Ql (Unsp spec) [facility] SARS-CoV-2 (COVID-19) RNA MELIZA+probe Ql (Unsp spec) [facility] Mucus LM Ql (Urine sed)Order ed By: Ray Stuart on 07-07-2023 Mucus Ql (Urine sed) 0 SEEN /hpf [facility] Nitrite Test strip Ql (U)Ord ered By: Ray Stuart on 07-07-2023 Nitrite Ql (U) Negative Negative [facility] No Panel InformationOrdered By: Ray Stuart on 07-07-2023 Troponin I High Sensitivity 44 pg/mL 3.0-78.0 [facility] Comment on above: Please Note: [place] t Units and Gender Specific Reference Ranges. For more information see Policy Stat Procedure [place] High Sensitivity Troponin (TNIH) and attachments. Estimated Creatinine Clearance Calc 37.04 ml/min [facility] Estimated GFR (MDRD) Amer 52 mL/min >60 [facility] Comment on above: GFR Calc Estimated GFR (MDRD) Non-Af Amer 43 mL/min >60 [facility] Comment on above: Non- GFR Calc Urine RBC 0 SEEN /hpf 0-5 [facility] Protein Test strip Ql (U)Ord ered By: Ray Stuart on 07-07-2023 Protein Ql (U) 30 mg/dl Negative [facility] RBC Auto (Bld) [#/Vol]Ordere d By: Ray Stuart on 07-07-2023 RBC (Bld) [#/Vol] 5.31 10*6/uL 4.6-6.2 [facility] Serum or plasma calcium sita urement (mass/volume)Ordered By: Ray Stuart on 07-07-2023 Calcium [Mass/Vol] 9.7 mg/dL 8.5-10.1 [facility] Serum or plasma creatinine m easurement (mass/volume)Ordered By: Ray Stuart on 07-07-2023 Creatinine [Mass/Vol] 1.62 mg/dL 0.70-1.30 [facility] Comment on above: The validity of the calculated GFR & GFRAA in patients over 70 years has not been determined. Clinical correlation is essential. Serum or plasma urea nitroge n measurement (mass/volume)Ordered By: Ray Stuart on 07-07-2023 Urea nitrogen [Mass/Vol] 12 mg/dL 7 [facility] Squamous epithelial cells de tection in urine sediment by light microscopyOrdered By: Ray Stuart on 07-07-2023 Epithelial cells.squamous LM Ql (Urine sed) 0 SEEN /hpf 0-5 [facility] Thin prep Papanicolaou smear with manual screeningOrdered By: Ray Stuart on 07-07-2023 Thin prep Papanicolaou smear with manual screening 6 5-15 [facility] Urine blood detectionOrdered By: Ray Stuart on 07-07-2023 RBC Ql (U) 10 /ul Negative [facility] Urine clarityOrdered By: Telma Stuart on 07-07-2023 Clarity (U) Clear Clear [facility] Urine color determinationOrd ered By: Ray Stuart on 07-07-2023 Color (U) Yellow Yellow [facility] Urine glucose detectionOrder ed By: Ray Stuart on 07-07-2023 Glucose Ql (U) Normal mg/dl Normal [facility] Urine leukocyte esterase det ection by dipstickOrdered By: Ray Stuart on 07-07-2023 Leukocyte esterase Test strip Ql (U) Negative Negative [facility] Urine pHOrdered By: Ray yousif on 07-07-2023 pH (U) 6.5 [pH] 5.0 - 8.0 [facility] Urine sediment bacteria coun t by microscopy (number/high power field)Ordered By: Ray Stuart on 07-07-2023 Bacteria LM.HPF (Urine sed) [#/Area] 0 /[HPF] None Seen [facility] Urine specific gravity measu rementOrdered By: Ray Stuart on 07-07-2023 Specific gravity (U) [Rel density] 1.010 1.002-1.030 [facility] Urine urobilinogen measureme ntOrdered By: Ray Stuart on 07-07-2023 Urobilinogen Ql (U) Normal mg/dl Normal [facility] Absolute lymphocyte countOrd ered By: Anson Fonseca on 05-26-2023 Lymphocytes Auto (Unsp spec) [#/Vol] 1.19 10*3/uL 0.83-4.51 [facility] Basophil percentageOrdered B y: Anson Fonseca on 05-26-2023 Basophils/100 WBC (Bld) 0.6 % 0-1 [facility] Bilirubin [Mass/Vol] 2.20 mg/dL 0.20-1.00 [facility] Comment on above: For patients on eltr ombopag therapy, use of Dimension [place] TBIL is not recommended. Chloride [Moles/Vol] 102 mmol/L 98-107 [facility] Eosinophils/100 WBC (Bld) 1.3 % 0-5 [facility] Glucose [Mass/Vol] 106 mg/dL 74-106 [facility] Comment on above: Fasting Glucose resu lt from 100 to 125 mg/dL suggests IMPAIRED HOMEOSTASIS per A.D.A. criteria. Neutrophils (Bld) [#/Vol] 8.0 10*3/uL 2.0-7.7 [facility] Neutrophils/100 WBC (Bld) 76.8 % 47-70 [facility] Potassium [Moles/Vol] 3.6 mmol/L 3.5-5.1 [facility] Protein [Mass/Vol] 7.3 g/dL 6.4-8.2 [facility] Sodium [Moles/Vol] 137 mmol/L 136-145 [facility] WBC (Bld) [#/Vol] 10.4 10*3/uL 4.4-11.0 [facility] Blood erythrocytes count (nu mber/volume)Ordered By: Anson Fonseca on 05-26-2023 RBC (Bld) [#/Vol] 5.04 10*6/uL 4.6-6.2 [facility] Blood hemoglobin measurement (mass/volume)Ordered By: Anson Fonseca on 05-26-2023 Hemoglobin (Bld) [Mass/Vol] 15.6 g/dL 13.0-16.5 [facility] Blood lymphocytes/100 leukoc ytesOrdered By: Anson Fonseca on 05-26-2023 Lymphocytes/100 WBC (Bld) 11.5 % 19-41 [facility] Blood monocytes/100 leukocyt esOrdered By: Anson Fonseca on 05-26-2023 Monocytes/100 WBC (Bld) 9.1 % 0-10 [facility] Blood platelet mean volumeOr dered By: Anson Fonseca on 05-26-2023 Platelet mean volume (Bld) [Entitic vol] 11.1 fL 6.2-12.0 [facility] Determination of erythrocyte mean corpuscular volume (MCV)Ordered By: Anson Fonseca on 05-26-2023 MCV (RBC) [Entitic vol] 90.3 fL 80-94 [facility] Hematocrit Auto (Bld) [Volum e fraction]Ordered By: Anson Fonseca on 05-26-2023 Hematocrit (Bld) [Volume fraction] 45.5 % 40-54 [facility] - Chemistry and C hemistry - challengeOrdered By: Anson Fonseca on 05-26-2023 ALP [Catalytic activity/Vol] 142 U/L 45-117 [facility] ALT [Catalytic activity/Vol] 32 U/L 16-61 [facility] CO2 [Moles/Vol] 29.0 mmol/L 21.0-32.0 [facility] Globulin (S) [Mass/Vol] 3.8 g/dL 2.2-4.2 [facility] Urea nitrogen/Creatinine [Mass ratio] 11.9 mg/mg 10-20 [facility] - Hematology and Cell countsOrdered By: Anson Fonseca on 05-26-2023 Erythrocyte distribution width (RBC) [Entitic vol] 43.1 fL 35.1-43.9 [facility] Erythrocyte distribution width (RBC) [Ratio] 13.2 % 11.6-14.6 [facility] Immature granulocytes/100 WBC (Bld) 0.700 % 0.0-0.9 [facility] Comment on above: IG% - Immature Granu locytes (promyelocytes, myelocytes and metamyelocytes) > 1% indicates that a LEFT SHIFT is Present. MCH (RBC) [Entitic mass] 31.0 pg 27.0-32.0 [facility] Nucleated RBC/100 WBC (Bld) [Ratio] 0 % 0-5 [facility] MCHC Auto (RBC) [Mass/Vol]Or dered By: Anson Fonseca on 05-26-2023 MCHC (RBC) [Mass/Vol] 34.3 g/dL 32-36 [facility] No Panel InformationOrdered By: Anson Fonseca on 05-26-2023 Estimated Creatinine Clearance Calc 30.36 ml/min [facility] Estimated GFR (MDRD) Amer 47 mL/min >60 [facility] Comment on above: GFR Calc Estimated GFR (MDRD) Non-Af Amer 39 mL/min >60 [facility] Comment on above: Non- GFR Calc Platelets bldOrdered By: Ignacio Fonseca on 05-26-2023 Platelets (Bld) [#/Vol] 206 10*3/uL 150-450 [facility] Serum or plasma albumin sita urement (mass/volume)Ordered By: Anson Fonseca on 05-26-2023 Albumin [Mass/Vol] 3.5 g/dL 3.2-5.0 [facility] Serum or plasma albumin/glob ulin mass ratioOrdered By: Anson Fonseca on 05-26-2023 Albumin/Globulin [Mass ratio] 0.9 {ratio} 0.9-2.4 [facility] Serum or plasma calcium sita urement (mass/volume)Ordered By: Anson Fonseca on 05-26-2023 Calcium [Mass/Vol] 8.5 mg/dL 8.5-10.1 [facility] Serum or plasma creatinine m easurement (mass/volume)Ordered By: Anson Fonseca on 05-26-2023 Creatinine [Mass/Vol] 1.77 mg/dL 0.70-1.30 [facility] Comment on above: The validity of the calculated GFR & GFRAA in patients over 70 years has not been determined. Clinical correlation is essential. Serum or plasma urea nitroge n measurement (mass/volume)Ordered By: Anson Fonseca on 05-26-2023 Urea nitrogen [Mass/Vol] 21 mg/dL 7-18 [facility] Thin prep Papanicolaou smear with manual screeningOrdered By: Anson Fonseca on 05-26-2023 Thin prep Papanicolaou smear with manual screening 31 U/L 15-37 [facility] Thin prep Papanicolaou smear with manual screening 6 5-15 [facility] Basophil percentageOrdered B y: Bernard Nugent on 03-25-2023 Chloride [Moles/Vol] 103 mmol/L 98-107 [facility] Glucose [Mass/Vol] 154 mg/dL 74-106 [facility] Comment on above: Fasting Glucose resu lt greater than or equal to 126 mg/dL suggests DIABETES MELLITUS per A.D.A. criteria. Potassium [Moles/Vol] 3.7 mmol/L 3.5-5.1 [facility] Sodium [Moles/Vol] 138 mmol/L 136-145 [facility] Laboratory - Chemistry and C hemistry - challengeOrdered By: Bernard Nugent on 03-25-2023 CO2 [Moles/Vol] 27.0 mmol/L 21.0-32.0 [facility] Urea nitrogen/Creatinine [Mass ratio] 10.2 mg/mg 10-20 [facility] No Panel InformationOrdered By: Bernard Nugent on 03-25-2023 Estimated GFR (MDRD) Amer 50 mL/min >60 [facility] Comment on above: GFR Calc Estimated GFR (MDRD) Non-Af Amer 42 mL/min >60 [facility] Comment on above: Non- GFR Calc Serum or plasma calcium sita urement (mass/volume)Ordered By: Bernard uNgent on 03-25-2023 Calcium [Mass/Vol] 8.6 mg/dL 8.5-10.1 [facility] Serum or plasma creatinine m easurement (mass/volume)Ordered By: Bernard Nugent on 03-25-2023 Creatinine [Mass/Vol] 1.67 mg/dL 0.70-1.30 [facility] Comment on above: The validity of the calculated GFR & GFRAA in patients over 70 years has not been determined. Clinical correlation is essential. Serum or plasma urea nitroge n measurement (mass/volume)Ordered By: Bernard Nugent on 03-25-2023 Urea nitrogen [Mass/Vol] 17 mg/dL 7-18 [facility] Thin prep Papanicolaou smear with manual screeningOrdered By: Bernard Nugent on 03-25-2023 Thin prep Papanicolaou smear with manual screening 8 5-15 [facility] Absolute lymphocyte countOrd ered By: Raghu Acosta on 03-24-2023 Lymphocytes Auto (Unsp spec) [#/Vol] 0.79 10*3/uL 0.83-4.51 [facility] Basophil percentageOrdered B y: Raghu Acosta on 03-24-2023 Basophil percentage 0 SEEN /hpf 0-5 [facility] Basophils/100 WBC (Bld) 0.5 % 0-[address] [facility] Bilirubin [Mass/Vol] 2.20 mg/dL 0.20-1.00 [facility] Comment on above: For patients on eltr ombopag therapy, use of Dimension [place] TBIL is not recommended. Chloride [Moles/Vol] 99 mmol/L 98-107 [facility] Eosinophils/100 WBC (Bld) 1.0 % 0-5 [facility] Glucose [Mass/Vol] 279 mg/dL 74-106 [facility] Comment on above: Glucose result great er than or equal to 200 mg/dLsuggests DIABETES MELLITUS per A.D.A. criteria. Neutrophils (Bld) [#/Vol] 7.1 10*3/uL 2.0-7.7 [facility] Neutrophils/100 WBC (Bld) 82.0 % 47-70 [facility] Potassium [Moles/Vol] 3.7 mmol/L 3.5-5.1 [facility] Protein [Mass/Vol] 6.9 g/dL 6.4-8.2 [facility] Sodium [Moles/Vol] 135 mmol/L 136-145 [facility] WBC (Bld) [#/Vol] 8.6 10*3/uL 4.4-11.0 [facility] Bilirubin Test strip Ql (U)O rdered By: Raghu Acosta on 03-24-2023 Bilirubin Ql (U) Negative Negative [facility] Blood erythrocytes count (nu mber/volume)Ordered By: Raghu Acosta on 03-24-2023 RBC (Bld) [#/Vol] 4.82 10*6/uL 4.6-6.2 [facility] Blood hemoglobin measurement (mass/volume)Ordered By: Raghu Acosta on 03-24-2023 Hemoglobin (Bld) [Mass/Vol] 14.7 g/dL 13.0-16.5 [facility] Blood lymphocytes/100 leukoc ytesOrdered By: Raghu Acosta on 03-24-2023 Lymphocytes/100 WBC (Bld) 9.1 % 19-41 [facility] Blood monocytes/100 leukocyt esOrdered By: Raghu Acosta on 03-24-2023 Monocytes/100 WBC (Bld) 6.9 % 0-10 [facility] Blood platelet mean volumeOr dered By: Raghu Acosta on 03-24-2023 Platelet mean volume (Bld) [Entitic vol] 11.7 fL 6.2-12.0 [facility] Determination of erythrocyte mean corpuscular volume (MCV)Ordered By: Raghu Acosta on 03-24-2023 MCV (RBC) [Entitic vol] 89.2 fL 80-94 [facility] Hematocrit Auto (Bld) [Volum e fraction]Ordered By: Raghu Acosta on 03-24-2023 Hematocrit (Bld) [Volume fraction] 43.0 % 40-54 [facility] Ketones Test strip Ql (U)Ord ered By: Raghu Acosta on 03-24-2023 Ketones Ql (U) Negative Negative [facility] Laboratory - Chemistry and C hemistry - challengeOrdered By: Raghu Acosta on 03-24-2023 ALP [Catalytic activity/Vol] 132 U/L 45-117 [facility] ALT [Catalytic activity/Vol] 20 U/L 16-61 [facility] CO2 [Moles/Vol] 29.0 mmol/L 21.0-32.0 [facility] Globulin (S) [Mass/Vol] 3.7 g/dL 2.2-4.2 [facility] Urea nitrogen/Creatinine [Mass ratio] 9.9 mg/mg 10-20 [facility] Laboratory - Hematology and Cell countsOrdered By: Raghu Acosta on 03-24-2023 Erythrocyte distribution width (RBC) [Entitic vol] 44.8 fL 35.1-43.9 [facility] Erythrocyte distribution width (RBC) [Ratio] 13.8 % 11.6-14.6 [facility] Immature granulocytes/100 WBC (Bld) 0.500 % 0.0-0.9 [facility] Comment on above: IG% - Immature Granu locytes (promyelocytes, myelocytes and metamyelocytes) > 1% indicates that a LEFT SHIFT is Present. MCH (RBC) [Entitic mass] 30.5 pg 27.0-32.0 [facility] Nucleated RBC/100 WBC (Bld) [Ratio] 0 % 0-5 [facility] MCHC Auto (RBC) [Mass/Vol]Or dered By: Raghu Acosta on 03-24-2023 MCHC (RBC) [Mass/Vol] 34.2 g/dL 32-36 [facility] Mucus LM Ql (Urine sed)Order ed By: Raghu Acosta on 03-24-2023 Mucus Ql (Urine sed) 0 SEEN /hpf [facility] Nitrite Test strip Ql (U)Ord ered By: Raghu Acosta on 03-24-2023 Nitrite Ql (U) Negative Negative [facility] No Panel InformationOrdered By: Raghu Acosta on 03-24-2023 Estimated Creatinine Clearance Calc 27.99 ml/min [facility] Estimated GFR (MDRD) Amer 43 mL/min >60 [facility] Comment on above: GFR Calc Estimated GFR (MDRD) Non-Af Amer 35 mL/min >60 [facility] Comment on above: Non- GFR Calc Troponin I High Sensitivity 32 pg/mL 3.0-78.0 [facility] Comment on above: Please Note: [place] t Units and Gender Specific Reference Ranges. For more information see Policy Stat Procedure [place] High Sensitivity Troponin (TNIH) and attachments. Platelets bldOrdered By: Delio Acosta on 03-24-2023 Platelets (Bld) [#/Vol] 170 10*3/uL 150-450 [facility] Protein Test strip Ql (U)Ord ered By: Raghu Acosta on 03-24-2023 Protein Ql (U) 15 mg/dl Negative [facility] Serum or plasma albumin sita urement (mass/volume)Ordered By: Raghu Acosta on 03-24-2023 Albumin [Mass/Vol] 3.2 g/dL 3.2-5.0 [facility] Serum or plasma albumin/glob ulin mass ratioOrdered By: Raghu Acosta on 03-24-2023 Albumin/Globulin [Mass ratio] 0.9 {ratio} 0.9-2.4 [facility] Serum or plasma calcium sita urement (mass/volume)Ordered By: Raghu Acosta on 03-24-2023 Calcium [Mass/Vol] 8.4 mg/dL 8.5-10.1 [facility] Serum or plasma creatinine m easurement (mass/volume)Ordered By: Raghu Acosta on 03-24-2023 Creatinine [Mass/Vol] 1.92 mg/dL 0.70-1.30 [facility] Comment on above: The validity of the calculated GFR & GFRAA in patients over 70 years has not been determined. Clinical correlation is essential. Serum or plasma urea nitroge n measurement (mass/volume)Ordered By: Raghu Acosta on 03-24-2023 Urea nitrogen [Mass/Vol] 19 mg/dL 7-18 [facility] Squamous epithelial cells de tection in urine sediment by light microscopyOrdered By: Raghu Acosta on 03-24-2023 Epithelial cells.squamous LM Ql (Urine sed) 0 SEEN /hpf 0-5 [facility] Thin prep Papanicolaou smear with manual screeningOrdered By: Raghu Acosta on 03-24-2023 Thin prep Papanicolaou smear with manual screening 14 U/L 15-37 [facility] Thin prep Papanicolaou smear with manual screening 7 5-15 [facility] Urine blood detectionOrdered By: Raghu Acosta on 03-24-2023 RBC Ql (U) 10 /ul Negative [facility] RBC Ql (U) 0 SEEN /hpf 0-5 [facility] Urine clarityOrdered By: Delio Acosta on 03-24-2023 Clarity (U) Clear Clear [facility] Urine color determinationOrd ered By: Raghu Acosta on 03-24-2023 Color (U) Yellow Yellow [facility] Urine glucose detectionOrder ed By: Raghu Acosta on 03-24-2023 Glucose Ql (U) 100 mg/dl Normal [facility] Urine leukocyte esterase det ection by dipstickOrdered By: Raghu Acosta on 03-24-2023 Leukocyte esterase Test strip Ql (U) Negative Negative [facility] Urine pHOrdered By: Raghu childress on 03-24-2023 pH (U) 7.0 [pH] 5.0 - 8.0 [facility] Urine sediment bacteria coun t by microscopy (number/high power field)Ordered By: Raghu Acosta on 03-24-2023 Bacteria LM.HPF (Urine sed) [#/Area] 0 /[HPF] None Seen [facility] Urine specific gravity measu rementOrdered By: Raghu Acosta on 03-24-2023 Specific gravity (U) [Rel density] 1.010 1.002-1.030 [facility] Urobilinogen Auto test strip Ql (U)Ordered By: Raghu Acosta on 03-24-2023 Urobilinogen Ql (U) Normal mg/dl Normal [facility] Basophil percentageOrdered B y: Shaila Haq on 02-07-2023 Basophil percentage 2.9 mg/dL 2.5-4.9 [facility] Chloride [Moles/Vol] 100 mmol/L 98-107 [facility] Glucose [Mass/Vol] 159 mg/dL 74-106 [facility] Comment on above: Fasting Glucose resu lt greater than or equal to 126 mg/dL suggests DIABETES MELLITUS per A.D.A. criteria. Potassium [Moles/Vol] 3.7 mmol/L 3.5-5.1 [facility] Sodium [Moles/Vol] 136 mmol/L 136-145 [facility] Laboratory - Chemistry and C hemistry - challengeOrdered By: Shaila Haq on 02-07-2023 CO2 [Moles/Vol] 32.0 mmol/L 21.0-32.0 [facility] Urea nitrogen/Creatinine [Mass ratio] 8.5 mg/mg 10- [facility] No Panel InformationOrdered By: Shaila Haq on 02-07-2023 Estimated GFR (MDRD) Amer 56 mL/min >60 [facility] Comment on above: GFR Calc Estimated GFR (MDRD) Non-Af Amer 46 mL/min >60 [facility] Comment on above: Non- GFR Calc Serum or plasma albumin sita urement (mass/volume)Ordered By: Shaila Haq on 02-07-2023 Albumin [Mass/Vol] 3.5 g/dL 3.2-5.0 [facility] Serum or plasma calcium sita urement (mass/volume)Ordered By: Shaila Haq on 02-07-2023 Calcium [Mass/Vol] 8.5 mg/dL 8.5-10.1 [facility] Serum or plasma creatinine m easurement (mass/volume)Ordered By: Shaila Haq on 02-07-2023 Creatinine [Mass/Vol] 1.53 mg/dL 0.70-1.30 [facility] Comment on above: The validity of the calculated GFR & GFRAA in patients over 70 years has not been determined. Clinical correlation is essential. Serum or plasma urea nitroge n measurement (mass/volume)Ordered By: Shaila Haq on 02-07-2023 Urea nitrogen [Mass/Vol] 13 mg/dL 7-18 [facility] Absolute lymphocyte countOrd ered By: Bernard Nugent on 01-22-2023 Lymphocytes Auto (Unsp spec) [#/Vol] 1.04 10*3/uL 0.83-4.51 [facility] Basophil percentageOrdered B y: Bernard Nugent on 01-22-2023 Basophils/100 WBC (Bld) 0.6 % 0-1 [facility] Bilirubin [Mass/Vol] 1.70 mg/dL 0.20-1.00 [facility] Comment on above: For patients on eltr ombopag therapy, use of Dimension [place] TBIL is not recommended. Chloride [Moles/Vol] 106 mmol/L 98-107 [facility] Eosinophils/100 WBC (Bld) 2.7 % 0-5 [facility] Glucose [Mass/Vol] 123 mg/dL 74-106 [facility] Comment on above: Fasting Glucose resu lt from 100 to 125 mg/dL suggests IMPAIRED HOMEOSTASIS per A.D.A. criteria. Neutrophils (Bld) [#/Vol] 4.7 10*3/uL 2.0-7.7 [facility] Neutrophils/100 WBC (Bld) 71.6 % 47-70 [facility] Potassium [Moles/Vol] 3.5 mmol/L 3.5-5.1 [facility] Protein [Mass/Vol] 6.6 g/dL 6.4-8.2 [facility] Sodium [Moles/Vol] 141 mmol/L 136-145 [facility] WBC (Bld) [#/Vol] 6.6 10*3/uL 4.4-11.0 [facility] Blood erythrocytes count (nu mber/volume)Ordered By: Bernard Nugent on 01-22-2023 RBC (Bld) [#/Vol] 4.62 10*6/uL 4.6-6.2 [facility] Blood hemoglobin measurement (mass/volume)Ordered By: Bernard Nugent on 01-22-2023 Hemoglobin (Bld) [Mass/Vol] 14.2 g/dL 13.0-16.5 [facility] Blood lymphocytes/100 leukoc ytesOrdered By: Bernard Nugent on 01-22-2023 Lymphocytes/100 WBC (Bld) 15.9 % 19-41 [facility] Blood monocytes/100 leukocyt esOrdered By: Bernard Nugent on 01-22-2023 Monocytes/100 WBC (Bld) 8.7 % 0-10 [facility] Blood platelet mean volumeOr dered By: Bernard Nugent on 01-22-2023 Platelet mean volume (Bld) [Entitic vol] 11.7 fL 6.2-12.0 [facility] Determination of erythrocyte mean corpuscular volume (MCV)Ordered By: Bernard Nugent on 01-22-2023 MCV (RBC) [Entitic vol] 89.8 fL 80-94 [facility] Hematocrit Auto (Bld) [Volum e fraction]Ordered By: Bernard Nugent on 01-22-2023 Hematocrit (Bld) [Volume fraction] 41.5 % 40-54 [facility] Laboratory - Chemistry and C hemistry - challengeOrdered By: Bernard Nugent on 01-22-2023 ALP [Catalytic activity/Vol] 133 U/L 45-117 [facility] ALT [Catalytic activity/Vol] 23 U/L 16-61 [facility] CO2 [Moles/Vol] 28.0 mmol/L 21.0-32.0 [facility] Globulin (S) [Mass/Vol] 3.4 g/dL 2.2-4.2 [facility] Urea nitrogen/Creatinine [Mass ratio] 7.7 mg/mg 10-20 [facility] Laboratory - Hematology and Cell countsOrdered By: Bernard Nugent on 01-22-2023 Erythrocyte distribution width (RBC) [Entitic vol] 47.2 fL 35.1-43.9 [facility] Erythrocyte distribution width (RBC) [Ratio] 14.3 % 11.6-14.6 [facility] Immature granulocytes/100 WBC (Bld) 0.500 % 0.0-0.9 [facility] Comment on above: IG% - Immature Granu locytes (promyelocytes, myelocytes and metamyelocytes) > 1% indicates that a LEFT SHIFT is Present. MCH (RBC) [Entitic mass] 30.7 pg 27.0-32.0 [facility] Nucleated RBC/100 WBC (Bld) [Ratio] 0 % 0-5 [facility] MCHC Auto (RBC) [Mass/Vol]Or dered By: Bernard Nugent on 01-22-2023 MCHC (RBC) [Mass/Vol] 34.2 g/dL 32-36 [facility] No Panel InformationOrdered By: Bernard Nugent on 01-22-2023 Estimated GFR (MDRD) Amer 54 mL/min >60 [facility] Comment on above: GFR Calc Estimated GFR (MDRD) Non-Af Amer 45 mL/min >60 [facility] Comment on above: Non- GFR Calc Thyroid Stimulating Hormone (TSH) 1.45 uIU/mL 0.358-3.74 [facility] Vitamin D 25-Hydroxy 45.6 ng/mL [facility] Comment on above: Vitamin D 25(OH) Sta tus Range Deficiency <20 ng/mL (50nmol/L) Insufficiency 20 - 30 ng/mL (50 - 75 nmol/L) Sufficiency 30 - 100 ng/mL (75 - 250 nmol/L) Toxicity >100 ng/mL (>250 nmol/L) Platelets bldOrdered By: Bernard Nugent on 01-22-2023 Platelets (Bld) [#/Vol] 179 10*3/uL 150-450 [facility] Serum or plasma albumin sita urement (mass/volume)Ordered By: Bernard Nugent on 01-22-2023 Albumin [Mass/Vol] 3.2 g/dL 3.2-5.0 [facility] Serum or plasma albumin/glob ulin mass ratioOrdered By: Bernard Nugent on 01-22-2023 Albumin/Globulin [Mass ratio] 0.9 {ratio} 0.9-2.4 [facility] Serum or plasma calcium sita urement (mass/volume)Ordered By: Bernard Nugent on 01-22-2023 Calcium [Mass/Vol] 8.2 mg/dL 8.5-10.1 [facility] Serum or plasma creatinine m easurement (mass/volume)Ordered By: Bernard Nugent on 01-22-2023 Creatinine [Mass/Vol] 1.56 mg/dL 0.70-1.30 [facility] Comment on above: The validity of the calculated GFR & GFRAA in patients over 70 years has not been determined. Clinical correlation is essential. Serum or plasma urea nitroge n measurement (mass/volume)Ordered By: Bernard Nugent on 01-22-2023 Urea nitrogen [Mass/Vol] 12 mg/dL 7-18 [facility] Thin prep Papanicolaou smear with manual screeningOrdered By: Bernard Nugent on 01-22-2023 Thin prep Papanicolaou smear with manual screening 21 U/L 15-37 [facility] Thin prep Papanicolaou smear with manual screening 7 5-15 [facility] Absolute lymphocyte countOrd ered By: Dr. Nugent on 11-06-2022 Lymphocytes Auto (Unsp spec) [#/Vol] 1.35 10*3/uL 0.83-4.51 [facility] Basophil percentageOrdered B y: Dr. Nugent on 11-06-2022 Basophils/100 WBC (Bld) 0.5 % 0-1 [facility] Bilirubin [Mass/Vol] 1.90 mg/dL 0.20-1.00 [facility] Comment on above: For patients on eltr ombopag therapy, use of Dimension [place] TBIL is not recommended. Chloride [Moles/Vol] 105 mmol/L 98-107 [facility] Eosinophils/100 WBC (Bld) 3.2 % 0-5 [facility] Glucose [Mass/Vol] 152 mg/dL 74-106 [facility] Comment on above: Fasting Glucose resu lt greater than or equal to 126 mg/dL suggests DIABETES MELLITUS per A.D.A. criteria. Neutrophils (Bld) [#/Vol] 5.9 10*3/uL 2.0-7.7 [facility] Neutrophils/100 WBC (Bld) 70.5 % 47-70 [facility] Potassium [Moles/Vol] 3.6 mmol/L 3.5-5.1 [facility] Protein [Mass/Vol] 7.3 g/dL 6.4-8.2 [facility] Sodium [Moles/Vol] 140 mmol/L 136-145 [facility] WBC (Bld) [#/Vol] 8.4 10*3/uL 4.4-11.0 [facility] Blood erythrocytes count (nu mber/volume)Ordered By: Dr. Nugent on 11-06-2022 RBC (Bld) [#/Vol] 5.00 10*6/uL 4.6-6.2 [facility] Blood hemoglobin measurement (mass/volume)Ordered By: Dr. Nugent on 11-06-2022 Hemoglobin (Bld) [Mass/Vol] 15.1 g/dL 13.0-16.5 [facility] Blood lymphocytes/100 leukoc ytesOrdered By: Dr. Nugent on 11-06-2022 Lymphocytes/100 WBC (Bld) 16.1 % 19-41 [facility] Blood monocytes/100 leukocyt esOrdered By: Dr. Nugent on 11-06-2022 Monocytes/100 WBC (Bld) 9.2 % 0-10 [facility] Blood platelet mean volumeOr dered By: Dr. Nugent on 11-06-2022 Platelet mean volume (Bld) [Entitic vol] 11.7 fL 6.2-12.0 [facility] Determination of erythrocyte mean corpuscular volume (MCV)Ordered By: Dr. Nugent on 11-06-2022 MCV (RBC) [Entitic vol] 88.6 fL 80-94 [facility] Hematocrit Auto (Bld) [Volum e fraction]Ordered By: Dr. Nugent on 11-06-2022 Hematocrit (Bld) [Volume fraction] 44.3 % 40-54 [facility] Laboratory - Chemistry and C hemistry - challengeOrdered By: Dr. Nugent on 11-06-2022 ALP [Catalytic activity/Vol] 151 U/L 45-117 [facility] ALT [Catalytic activity/Vol] 21 U/L 16-61 [facility] CO2 [Moles/Vol] 31.0 mmol/L 21.0-32.0 [facility] Globulin (S) [Mass/Vol] 3.8 g/dL 2.2-4.2 [facility] Urea nitrogen/Creatinine [Mass ratio] 9.7 mg/mg 10-20 [facility] Laboratory - Hematology and Cell countsOrdered By: Dr. Nugent on 11-06-2022 Erythrocyte distribution width (RBC) [Entitic vol] 45.5 fL 35.1-43.9 [facility] Erythrocyte distribution width (RBC) [Ratio] 14.1 % 11.6-14.6 [facility] Immature granulocytes/100 WBC (Bld) 0.500 % 0.0-0.9 [facility] Comment on above: IG% - Immature Granu locytes (promyelocytes, myelocytes and metamyelocytes) > 1% indicates that a LEFT SHIFT is Present. MCH (RBC) [Entitic mass] 30.2 pg 27.0-32.0 [facility] Nucleated RBC/100 WBC (Bld) [Ratio] 0 % 0-5 [facility] MCHC Auto (RBC) [Mass/Vol]Or dered By: Dr. Nugent on 11-06-2022 MCHC (RBC) [Mass/Vol] 34.1 g/dL 32-36 [facility] No Panel InformationOrdered By: Dr. Nugent on 11-06-2022 Estimated GFR (MDRD) Amer 55 mL/min >60 [facility] Comment on above: GFR Calc Estimated GFR (MDRD) Non-Af Amer 45 mL/min >60 [facility] Comment on above: Non- GFR Calc Thyroid Stimulating Hormone (TSH) 2.03 uIU/mL 0.358-3.74 [facility] Vitamin D 25-Hydroxy 49.2 ng/mL [facility] Comment on above: Vitamin D 25(OH) Sta tus Range Deficiency <20 ng/mL (50nmol/L) Insufficiency 20 - 30 ng/mL (50 - 75 nmol/L) Sufficiency 30 - 100 ng/mL (75 - 250 nmol/L) Toxicity >100 ng/mL (>250 nmol/L) Platelets bldOrdered By: Dr. Nugent on 11-06-2022 Platelets (Bld) [#/Vol] 185 10*3/uL 150-450 [facility] Serum or plasma albumin sita urement (mass/volume)Ordered By: Dr. Nugent on 11-06-2022 Albumin [Mass/Vol] 3.5 g/dL 3.2-5.0 [facility] Serum or plasma albumin/glob ulin mass ratioOrdered By: Dr. Nugent on 11-06-2022 Albumin/Globulin [Mass ratio] 0.9 {ratio} 0.9-2.4 [facility] Serum or plasma calcium sita urement (mass/volume)Ordered By: Dr. Nugent on 11-06-2022 Calcium [Mass/Vol] 8.7 mg/dL 8.5-10.1 [facility] Serum or plasma creatinine m easurement (mass/volume)Ordered By: Dr. Nugent on 11-06-2022 Creatinine [Mass/Vol] 1.55 mg/dL 0.70-1.30 [facility] Comment on above: The validity of the calculated GFR & GFRAA in patients over 70 years has not been determined. Clinical correlation is essential. Serum or plasma urea nitroge n measurement (mass/volume)Ordered By: Dr. Nugent on 11-06-2022 Urea nitrogen [Mass/Vol] 15 mg/dL 7-18 [facility] Thin prep Papanicolaou smear with manual screeningOrdered By: Dr. Nugent on 11-06-2022 Thin prep Papanicolaou smear with manual screening 20 U/L 15-37 [facility] Thin prep Papanicolaou smear with manual screening 4 5-15 [facility] Basophil percentageOrdered B y: Evin Sarmiento on 10-22-2022 Chloride [Moles/Vol] 105 mmol/L 98-107 [facility] Glucose [Mass/Vol] 216 mg/dL 74-106 [facility] Comment on above: Glucose result great er than or equal to 200 mg/dLsuggests DIABETES MELLITUS per A.D.A. criteria. Potassium [Moles/Vol] 3.6 mmol/L 3.5-5.1 [facility] Sodium [Moles/Vol] 138 mmol/L 136-145 [facility] WBC (Bld) [#/Vol] 10.3 10*3/uL 4.4-11.0 [facility] Blood erythrocytes count (nu mber/volume)Ordered By: Evin Sarmiento on 10-22-2022 RBC (Bld) [#/Vol] 4.70 10*6/uL 4.6-6.2 [facility] Blood hemoglobin measurement (mass/volume)Ordered By: Evin Sarmiento on 10-22-2022 Hemoglobin (Bld) [Mass/Vol] 14.2 g/dL 13.0-16.5 [facility] Blood platelet mean volumeOr dered By: Evin Sarmiento on 10-22-2022 Platelet mean volume (Bld) [Entitic vol] 11.3 fL 6.2-12.0 [facility] Determination of erythrocyte mean corpuscular volume (MCV)Ordered By: Evin Sarmiento on 10-22-2022 MCV (RBC) [Entitic vol] 90.0 fL 80-94 [facility] Hematocrit Auto (Bld) [Volum e fraction]Ordered By: Evin Sarmiento on 10-22-2022 Hematocrit (Bld) [Volume fraction] 42.3 % 40-54 [facility] Laboratory - Chemistry and C hemistry - challengeOrdered By: Evin Sarmiento on 10-22-2022 CO2 [Moles/Vol] 29.0 mmol/L 21.0-32.0 [facility] Natriuretic peptide B (Bld) [Mass/Vol] 298.6 pg/mL 0-100 [facility] Urea nitrogen/Creatinine [Mass ratio] 10.2 mg/mg 10-20 [facility] Laboratory - Hematology and Cell countsOrdered By: Evin Sarmiento on 10-22-2022 Erythrocyte distribution width (RBC) [Entitic vol] 47.2 fL 35.1-43.9 [facility] Erythrocyte distribution width (RBC) [Ratio] 14.3 % 11.6-14.6 [facility] MCH (RBC) [Entitic mass] 30.2 pg 27.0-32.0 [facility] MCHC Auto (RBC) [Mass/Vol]Or dered By: Evin Sarmiento on 10-22-2022 MCHC (RBC) [Mass/Vol] 33.6 g/dL 32-36 [facility] No Panel InformationOrdered By: Evin Sarmiento on 10-22-2022 Estimated GFR (MDRD) Amer 50 mL/min >60 [facility] Comment on above: GFR Calc Estimated GFR (MDRD) Non-Af Amer 42 mL/min >60 [facility] Comment on above: Non- GFR Calc Platelets bldOrdered By: Ignacio Sarmiento on 10-22-2022 Platelets (Bld) [#/Vol] 186 10*3/uL 150-450 [facility] Serum or plasma calcium sita urement (mass/volume)Ordered By: Evin Sarmiento on 10-22-2022 Calcium [Mass/Vol] 8.2 mg/dL 8.5-10.1 [facility] Serum or plasma creatinine m easurement (mass/volume)Ordered By: Evin Sarmiento on 10-22-2022 Creatinine [Mass/Vol] 1.67 mg/dL 0.70-1.30 [facility] Comment on above: The validity of the calculated GFR & GFRAA in patients over 70 years has not been determined. Clinical correlation is essential. Serum or plasma urea nitroge n measurement (mass/volume)Ordered By: Evin Sarmiento on 10-22-2022 Urea nitrogen [Mass/Vol] 17 mg/dL 7-18 [facility] Thin prep Papanicolaou smear with manual screeningOrdered By: Evin Sarmiento on 10-22-2022 Thin prep Papanicolaou smear with manual screening 4 5-15 [facility] Basophil percentageOrdered B y: Dr. Tobias on 09-24-2022 Chloride [Moles/Vol] 104 mmol/L 98-107 [facility] Glucose [Mass/Vol] 61 mg/dL 74-106 [facility] Potassium [Moles/Vol] 3.0 mmol/L 3.5-5.1 [facility] Sodium [Moles/Vol] 135 mmol/L 136-145 [facility] WBC (Bld) [#/Vol] 12.7 10*3/uL 4.4-11.0 [facility] Blood erythrocytes count (nu mber/volume)Ordered By: Dr. Tobias on 09-24-2022 RBC (Bld) [#/Vol] 4.83 10*6/uL 4.6-6.2 [facility] Blood hemoglobin measurement (mass/volume)Ordered By: Dr. Tobias on 09-24-2022 Hemoglobin (Bld) [Mass/Vol] 14.3 g/dL 13.0-16.5 [facility] Blood platelet mean volumeOr dered By: Dr. Tobias on 09-24-2022 Platelet mean volume (Bld) [Entitic vol] 11.6 fL 6.2-12.0 [facility] Determination of erythrocyte mean corpuscular volume (MCV)Ordered By: Dr. Tobias on 09-24-2022 MCV (RBC) [Entitic vol] 87.4 fL 80-94 [facility] Glucose Glucometer (dC) [M ass/Vol]Ordered By: Dr. Tobias on 09-24-2022 Glucose [Mass/Vol] 182 mg/dL 74-106 [facility] Comment on above: MANAGEMENT OF PATIEN T CARE PER NURSING PROTOCOL Hematocrit Auto (Bld) [Volum e fraction]Ordered By: Dr. Tobias on 09-24-2022 Hematocrit (Bld) [Volume fraction] 42.2 % 40-54 [facility] Laboratory - Chemistry and C hemistry - challengeOrdered By: Dr. Tobias on 09-24-2022 CO2 [Moles/Vol] 22.0 mmol/L 21.0-32.0 [facility] Urea nitrogen/Creatinine [Mass ratio] 12.4 mg/mg 10-20 [facility] Laboratory - Hematology and Cell countsOrdered By: Dr. Tobias on 09-24-2022 Erythrocyte distribution width (RBC) [Entitic vol] 44.3 fL 35.1-43.9 [facility] Erythrocyte distribution width (RBC) [Ratio] 14.0 % 11.6-14.6 [facility] MCH (RBC) [Entitic mass] 29.6 pg 27.0-32.0 [facility] MCHC Auto (RBC) [Mass/Vol]Or dered By: Dr. Tobias on 09-24-2022 MCHC (RBC) [Mass/Vol] 33.9 g/dL 32-36 [facility] No Panel InformationOrdered By: Dr. Tobias on 09-24-2022 Estimated Creatinine Clearance Calc 30.93 ml/min [facility] Estimated GFR (MDRD) Amer 47 mL/min >60 [facility] Comment on above: GFR Calc Estimated GFR (MDRD) Non-Af Amer 39 mL/min >60 [facility] Comment on above: Non- GFR Calc Platelets bldOrdered By: Dr. Tobias on 09-24-2022 Platelets (Bld) [#/Vol] 212 10*3/uL 150-450 [facility] Serum or plasma calcium sita urement (mass/volume)Ordered By: Dr. Tobias on 09-24-2022 Calcium [Mass/Vol] 8.5 mg/dL 8.5-10.1 [facility] Serum or plasma creatinine m easurement (mass/volume)Ordered By: Dr. Tobias on 09-24-2022 Creatinine [Mass/Vol] 1.77 mg/dL 0.70-1.30 [facility] Comment on above: The validity of the calculated GFR & GFRAA in patients over 70 years has not been determined. Clinical correlation is essential. Serum or plasma urea nitroge n measurement (mass/volume)Ordered By: Dr. Tobias on 09-24-2022 Urea nitrogen [Mass/Vol] 22 mg/dL 7-18 [facility] Thin prep Papanicolaou smear with manual screeningOrdered By: Dr. Tobias on 09-24-2022 Thin prep Papanicolaou smear with manual screening 9 5-15 [facility] Basophil percentageOrdered B y: Dr. Tobias on 09-19-2022 Basophil percentage 0-5 SEEN /hpf 0-5 [facility] Bilirubin Test strip Ql (U)O rdered By: Dr. Tobias on 09-19-2022 Bilirubin Ql (U) Negative Negative [facility] Ketones Test strip Ql (U)Ord ered By: Dr. Tobias on 09-19-2022 Ketones Ql (U) Negative Negative [facility] Mucus LM Ql (Urine sed)Order ed By: Dr. Tobias on 09-19-2022 Mucus Ql (Urine sed) 0 SEEN /hpf [facility] Nitrite Test strip Ql (U)Ord ered By: Dr. Tobias on 09-19-2022 Nitrite Ql (U) Negative Negative [facility] Protein Test strip Ql (U)Ord ered By: Dr. Tobias on 09-19-2022 Protein Ql (U) 30 mg/dl Negative [facility] Squamous epithelial cells de tection in urine sediment by light microscopyOrdered By: Dr. Tobias on 09-19-2022 Epithelial cells.squamous LM Ql (Urine sed) 0 SEEN /hpf 0-5 [facility] Urine blood detectionOrdered By: Dr. Tobias on 09-19-2022 RBC Ql (U) 10 /ul Negative [facility] RBC Ql (U) 0-5 SEEN /hpf 0-5 [facility] Urine clarityOrdered By: Dr. Tobias on 09-19-2022 Clarity (U) Sl. Cloudy Clear [facility] Urine color determinationOrd ered By: Dr. Tobias on 09-19-2022 Color (U) Yellow Yellow [facility] Urine glucose detectionOrder ed By: Dr. Tobias on 09-19-2022 Glucose Ql (U) Normal mg/dl Normal [facility] Urine leukocyte esterase det ection by dipstickOrdered By: Dr. Tobias on 09-19-2022 Leukocyte esterase Test strip Ql (U) 25 /ul Negative [facility] Urine pHOrdered By: Dr. Stephani buck on 09-19-2022 pH (U) 6.5 [pH] 5.0 - 8.0 [facility] Urine sediment bacteria coun t by microscopy (number/high power field)Ordered By: Dr. Tobias on 09-19-2022 Bacteria LM.HPF (Urine sed) [#/Area] 0 /[HPF] None Seen [facility] Urine specific gravity measu rementOrdered By: Dr. Tobias on 09-19-2022 Specific gravity (U) [Rel density] 1.010 1.002-1.030 [facility] Urobilinogen Auto test strip Ql (U)Ordered By: Dr. Tobias on 09-19-2022 Urobilinogen Ql (U) Normal mg/dl Normal [facility] Basophil percentageOrdered B y: Dr. Haq on 09-04-2022 Chloride [Moles/Vol] 101 mmol/L 98-107 [facility] Glucose [Mass/Vol] 148 mg/dL 74-106 [facility] Comment on above: Fasting Glucose resu lt greater than or equal to 126 mg/dL suggests DIABETES MELLITUS per A.D.A. criteria. Potassium [Moles/Vol] 3.4 mmol/L 3.5-5.1 [facility] Sodium [Moles/Vol] 135 mmol/L 136-145 [facility] Laboratory - Chemistry and C hemistry - challengeOrdered By: Dr. Haq on 09-04-2022 CO2 [Moles/Vol] 27.0 mmol/L 21.0-32.0 [facility] Urea nitrogen/Creatinine [Mass ratio] 8.4 mg/mg 10-20 [facility] No Panel InformationOrdered By: Dr. Haq on 09-04-2022 Estimated GFR (MDRD) Amer 50 mL/min >60 [facility] Comment on above: GFR Calc Estimated GFR (MDRD) Non-Af Amer 42 mL/min >60 [facility] Comment on above: Non- GFR Calc Serum or plasma calcium sita urement (mass/volume)Ordered By: Dr. Haq on 09-04-2022 Calcium [Mass/Vol] 8.8 mg/dL 8.5-10.1 [facility] Serum or plasma creatinine m easurement (mass/volume)Ordered By: Dr. Haq on 09-04-2022 Creatinine [Mass/Vol] 1.67 mg/dL 0.70-1.30 [facility] Comment on above: The validity of the calculated GFR & GFRAA in patients over 70 years has not been determined. Clinical correlation is essential. Serum or plasma urea nitroge n measurement (mass/volume)Ordered By: Dr. aHq on 09-04-2022 Urea nitrogen [Mass/Vol] 14 mg/dL 12-04 [facility] Thin prep Papanicolaou smear with manual screeningOrdered By: Dr. Haq on 09-04-2022 Thin prep Papanicolaou smear with manual screening 7 10-01 [facility] Absolute lymphocyte countOrd ered By: Dr. Haq on 08-08-2022 Lymphocytes Auto (Unsp spec) [#/Vol] 1.56 10*3/uL 0.83-4.51 [facility] Basophil percentageOrdered B y: Dr. Haq on 08-08-2022 Basophils/100 WBC (Bld) 0.3 % 0-1 [facility] Bilirubin [Mass/Vol] 1.60 mg/dL 0.20-1.00 [facility] Comment on above: For patients on eltr ombopag therapy, use of [employer] [place] TBIL is not recommended. Chloride [Moles/Vol] 97 mmol/L 98-107 [facility] Eosinophils/100 WBC (Bld) 2.1 % 0-5 [facility] Glucose [Mass/Vol] 309 mg/dL 74-106 [facility] Comment on above: Glucose result great er than or equal to 200 mg/dLsuggests DIABETES MELLITUS per A.D.A. criteria. Neutrophils (Bld) [#/Vol] 6.0 10*3/uL 2.0-7.7 [facility] Neutrophils/100 WBC (Bld) 69.0 % 47-70 [facility] Potassium [Moles/Vol] 3.4 mmol/L 3.5-5.1 [facility] Protein [Mass/Vol] 6.9 g/dL 6.4-8.2 [facility] Sodium [Moles/Vol] 134 mmol/L 136-145 [facility] WBC (Bld) [#/Vol] 8.7 10*3/uL 4.4-11.0 [facility] Blood erythrocytes count (nu mber/volume)Ordered By: Dr. Haq on 08-08-2022 RBC (Bld) [#/Vol] 4.59 10*6/uL 4.6-6.2 [facility] Blood hemoglobin measurement (mass/volume)Ordered By: Dr. Haq on 08-08-2022 Hemoglobin (Bld) [Mass/Vol] 13.8 g/dL 13.0-16.5 [facility] Blood lymphocytes/100 leukoc ytesOrdered By: Dr. Haq on 08-08-2022 Lymphocytes/100 WBC (Bld) 17.9 % 19-41 [facility] Blood monocytes/100 leukocyt esOrdered By: Dr. Haq on 08-08-2022 Monocytes/100 WBC (Bld) 10.2 % 0-10 [facility] Blood platelet mean volumeOr dered By: Dr. Haq on 08-08-2022 Platelet mean volume (Bld) [Entitic vol] 12.6 fL 6.2-12.0 [facility] Determination of erythrocyte mean corpuscular volume (MCV)Ordered By: Dr. Haq on 08-08-2022 MCV (RBC) [Entitic vol] 88.2 fL 80-94 [facility] Hematocrit Auto (Bld) [Volum e fraction]Ordered By: Dr. Haq on 08-08-2022 Hematocrit (Bld) [Volume fraction] 40.5 % 40-54 [facility] Laboratory - Chemistry and C hemistry - challengeOrdered By: Dr. Haq on 08-08-2022 ALP [Catalytic activity/Vol] 156 U/L 45-117 [facility] ALT [Catalytic activity/Vol] 19 U/L 16-61 [facility] CO2 [Moles/Vol] 31.0 mmol/L 21.0-32.0 [facility] Globulin (S) [Mass/Vol] 3.6 g/dL 2.2-4.[address] [facility] Urea nitrogen/Creatinine [Mass ratio] 9.5 mg/mg 10-20 [facility] Laboratory - Hematology and Cell countsOrdered By: Dr. Haq on 08-08-2022 Erythrocyte distribution width (RBC) [Entitic vol] 43.8 fL 35.1-43.9 [facility] Erythrocyte distribution width (RBC) [Ratio] 13.8 % 11.6-14.6 [facility] Immature granulocytes/100 WBC (Bld) 0.500 % 0.0-0.9 [facility] Comment on above: IG% - Immature Granu locytes (promyelocytes, myelocytes and metamyelocytes) > 1% indicates that a LEFT SHIFT is Present. MCH (RBC) [Entitic mass] 30.1 pg 27.0-32.0 [facility] Nucleated RBC/100 WBC (Bld) [Ratio] 0 % 0-5 [facility] MCHC Auto (RBC) [Mass/Vol]Or dered By: Dr. Haq on 08-08-2022 MCHC (RBC) [Mass/Vol] 34.1 g/dL 32-36 [facility] No Panel InformationOrdered By: Dr. Haq on 08-08-2022 Estimated GFR (MDRD) Amer 50 mL/min >60 [facility] Comment on above: GFR Calc Estimated GFR (MDRD) Non-Af Amer 41 mL/min >60 [facility] Comment on above: Non- GFR Calc Thyroid Stimulating Hormone (TSH) 2.57 uIU/mL 0.358-3.74 [facility] Vitamin D 25-Hydroxy 43.9 ng/mL [facility] Comment on above: Vitamin D 25(OH) Sta tus Range Deficiency <20 ng/mL (50nmol/L) Insufficiency 20 - 30 ng/mL (50 - 75 nmol/L) Sufficiency 30 - 100 ng/mL (75 - 250 nmol/L) Toxicity >100 ng/mL (>250 nmol/L) Platelets bldOrdered By: Dr. Haq on 08-08-2022 Platelets (Bld) [#/Vol] 165 10*3/uL 150-450 [facility] Serum or plasma albumin sita urement (mass/volume)Ordered By: Dr. Haq on 08-08-2022 Albumin [Mass/Vol] 3.3 g/dL 3.2-5.0 [facility] Serum or plasma albumin/glob ulin mass ratioOrdered By: Dr. Haq on 08-08-2022 Albumin/Globulin [Mass ratio] 0.9 {ratio} 0.9-2.4 [facility] Serum or plasma calcium sita urement (mass/volume)Ordered By: Dr. Haq on 08-08-2022 Calcium [Mass/Vol] 8.5 mg/dL 8.5-10.1 [facility] Serum or plasma creatinine m easurement (mass/volume)Ordered By: Dr. Haq on 08-08-2022 Creatinine [Mass/Vol] 1.69 mg/dL 0.70-1.30 [facility] Comment on above: The validity of the calculated GFR & GFRAA in patients over 70 years has not been determined. Clinical correlation is essential. Serum or plasma urea nitroge n measurement (mass/volume)Ordered By: Dr. Haq on 08-08-2022 Urea nitrogen [Mass/Vol] 16 mg/dL 7-18 [facility] Thin prep Papanicolaou smear with manual screeningOrdered By: Dr. Haq on 08-08-2022 Thin prep Papanicolaou smear with manual screening 15 U/L 15-37 [facility] Thin prep Papanicolaou smear with manual screening 6 5-15 [facility] Absolute lymphocyte countOrd ered By: Evin Sarmiento on 07-20-2022 Lymphocytes Auto (Unsp spec) [#/Vol] 1.15 10*3/uL 0.83-4.51 [facility] Basophil percentageOrdered B y: Evin Sarmiento on 07-20-2022 Basophils/100 WBC (Bld) 0.4 % 0-1 [facility] Chloride [Moles/Vol] 97 mmol/L 98-107 [facility] Eosinophils/100 WBC (Bld) 1.9 % 0-5 [facility] Glucose [Mass/Vol] 197 mg/dL 74-106 [facility] Comment on above: Fasting Glucose resu lt greater than or equal to 126 mg/dL suggests DIABETES MELLITUS per A.D.A. criteria. Neutrophils (Bld) [#/Vol] 6.1 10*3/uL 2.0-7.7 [facility] Neutrophils/100 WBC (Bld) 75.5 % 47-70 [facility] Potassium [Moles/Vol] 3.3 mmol/L 3.5-5.1 [facility] Sodium [Moles/Vol] 137 mmol/L 136-145 [facility] WBC (Bld) [#/Vol] 8.0 10*3/uL 4.4-11.0 [facility] Blood erythrocytes count (nu mber/volume)Ordered By: Evin Sarmiento on 07-20-2022 RBC (Bld) [#/Vol] 5.03 10*6/uL 4.6-6.2 [facility] Blood hemoglobin measurement (mass/volume)Ordered By: Evin Sarmiento on 07-20-2022 Hemoglobin (Bld) [Mass/Vol] 15.0 g/dL 13.0-16.5 [facility] Blood lymphocytes/100 leukoc ytesOrdered By: Evin Sarmiento on 03-03-2023 Lymphocytes/100 WBC (Bld) 14.3 % 19-41 [facility] Blood monocytes/100 leukocyt esOrdered By: Evin Sarmiento on 07-20-2022 Monocytes/100 WBC (Bld) 7.5 % 0-10 [facility] Blood platelet mean volumeOr dered By: Evin Sarmiento on 07-20-2022 Platelet mean volume (Bld) [Entitic vol] 12.4 fL 6.2-12.0 [facility] Determination of erythrocyte mean corpuscular volume (MCV)Ordered By: Evin Sarmiento on 07-20-2022 MCV (RBC) [Entitic vol] 87.5 fL 80-94 [facility] Hematocrit Auto (Bld) [Volum e fraction]Ordered By: Evin Sarmienot on 07-20-2022 Hematocrit (Bld) [Volume fraction] 44.0 % 40-54 [facility] Laboratory - Chemistry and C hemistry - challengeOrdered By: Evin Sarmiento on 07-20-2022 CO2 [Moles/Vol] 31.0 mmol/L 21.0-32.0 [facility] Urea nitrogen/Creatinine [Mass ratio] 10.9 mg/mg 10-20 [facility] Laboratory - Chemistry and C hemistry - challengeOrdered By: Dr. Haq on 07-20-2022 Natriuretic peptide B (Bld) [Mass/Vol] 96.3 pg/mL 0-100 [facility] Laboratory - Hematology and Cell countsOrdered By: Evin Sarmiento on 07-20-2022 Erythrocyte distribution width (RBC) [Entitic vol] 43.6 fL 35.1-43.9 [facility] Erythrocyte distribution width (RBC) [Ratio] 13.8 % 11.6-14.6 [facility] Immature granulocytes/100 WBC (Bld) 0.400 % 0.0-0.9 [facility] Comment on above: IG% - Immature Granu locytes (promyelocytes, myelocytes and metamyelocytes) > 1% indicates that a LEFT SHIFT is Present. MCH (RBC) [Entitic mass] 29.8 pg 27.0-32.0 [facility] Nucleated RBC/100 WBC (Bld) [Ratio] 0 % 0-5 [facility] MCHC Auto (RBC) [Mass/Vol]Or dered By: Evin Sarmiento on 07-20-2022 MCHC (RBC) [Mass/Vol] 34.1 g/dL 32-36 [facility] No Panel InformationOrdered By: Evin Sarmiento on 07-20-2022 Estimated GFR (MDRD) Amer 54 mL/min >60 [facility] Comment on above: GFR Calc Estimated GFR (MDRD) Non-Af Amer 45 mL/min >60 [facility] Comment on above: Non- GFR Calc No Panel InformationOrdered By: Dr. Haq on 07-20-2022 Parathyroid Hormone (Intact) 110.2 pg/mL 18.4-80.1 [facility] Platelets bldOrdered By: Ignacio Sarmiento on 07-20-2022 Platelets (Bld) [#/Vol] 206 10*3/uL 150-450 [facility] Serum or plasma albumin sita urement (mass/volume)Ordered By: Evin Sarmiento on 07-20-2022 Albumin [Mass/Vol] 3.3 g/dL 3.2-5.0 [facility] Serum or plasma calcium sita urement (mass/volume)Ordered By: Evin Sarmiento on 07-20-2022 Calcium [Mass/Vol] 8.9 mg/dL 8.5-10.1 [facility] Serum or plasma creatinine m easurement (mass/volume)Ordered By: Evin Sarmiento on 07-20-2022 Creatinine [Mass/Vol] 1.56 mg/dL 0.70-1.30 [facility] Comment on above: The validity of the calculated GFR & GFRAA in patients over 70 years has not been determined. Clinical correlation is essential. Serum or plasma urea nitroge n measurement (mass/volume)Ordered By: Evin Sarmiento on 07-20-2022 Urea nitrogen [Mass/Vol] 17 mg/dL 7-18 [facility] Thin prep Papanicolaou smear with manual screeningOrdered By: Evin Sarmiento on 07-20-2022 Thin prep Papanicolaou smear with manual screening 9 5-15 [facility] Basophil percentageon 2021 Chloride [Moles/Vol] 99 mmol/L 98-107 [facility] Work Phone: Glucose [Mass/Vol] 227 mg/dL 74-106 [facility] Work Phone: Comment on above: Glucose result great er than or equal to 200 mg/dLsuggests DIABETES MELLITUS per A.D.A. criteria. Potassium [Moles/Vol] 3.5 mmol/L 3.5-5.1 [facility] Work Phone: Sodium [Moles/Vol] 139 mmol/L 136-145 [facility] Work Phone: Laboratory - Chemistry and C hemistry - challengeon 02-26-2022 CO2 [Moles/Vol] 31.0 mmol/L 21.0-32.0 [facility] Work Phone: Urea nitrogen/Creatinine [Mass ratio] 8.0 mg/mg 10-20 [facility] Work Phone: No Panel Informationon 02-26 Estimated GFR (MDRD) Amer 52 mL/min >60 [facility] Work Phone: Comment on above: GFR Calc Estimated GFR (MDRD) Non-Af Amer 43 mL/min >60 [facility] Work Phone: Comment on above: Non- GFR Calc Serum or plasma calcium sita urement (mass/volume)on 02-26-2022 Calcium [Mass/Vol] 8.7 mg/dL 8.5-10.1 [facility] Work Phone: Serum or plasma creatinine m easurement (mass/volume)on 02-26-2022 Creatinine [Mass/Vol] 1.63 mg/dL 0.70-1.30 [facility] Work Phone: Comment on above: The validity of the calculated GFR & GFRAA in patients over 70 years has not been determined. Clinical correlation is essential. Serum or plasma urea nitroge n measurement (mass/volume)on 02-26-2022 Urea nitrogen [Mass/Vol] 13 mg/dL 7-18 [facility] Work Phone: Thin prep Papanicolaou smear with manual screeningon 02-26-2022 Thin prep Papanicolaou smear with manual screening 9 5-15 [facility] Work Phone: Absolute lymphocyte counton 02-04-2022 Lymphocytes Auto (Unsp spec) [#/Vol] 1.28 10*3/uL 0.83-4.51 [facility] Work Phone: Basophil percentageon 2021 Basophils/100 WBC (Bld) 0.4 % 0-1 [facility] Work Phone: Chloride [Moles/Vol] 103 mmol/L 98-107 [facility] Work Phone: Eosinophils/100 WBC (Bld) 1.2 % 0-5 [facility] Work Phone: Glucose [Mass/Vol] 204 mg/dL 74-106 [facility] Work Phone: Comment on above: Glucose result great er than or equal to 200 mg/dLsuggests DIABETES MELLITUS per A.D.A. criteria. Neutrophils (Bld) [#/Vol] 8.8 10*3/uL 2.0-7.7 [facility] Work Phone: [phone] Neutrophils/100 WBC (Bld) 78.6 % 47-70 [facility] Work Phone: Potassium [Moles/Vol] 3.9 mmol/L 3.5-5.1 [facility] Work Phone: Sodium [Moles/Vol] 138 mmol/L 136-145 [facility] Work Phone: WBC (Bld) [#/Vol] 11.2 10*3/uL 4.4-11.0 [facility] Work Phone: [phone] Blood erythrocytes count (nu mber/volume)on 02-04-2022 RBC (Bld) [#/Vol] 4.32 10*6/uL 4.6-6.2 [facility] Work Phone: Blood hemoglobin measurement (mass/volume)on 02-04-2022 Hemoglobin (Bld) [Mass/Vol] 13.2 g/dL 13.0-16.5 [facility] Work Phone: Blood lymphocytes/100 leukoc yteson 02-04-2022 Lymphocytes/100 WBC (Bld) 11.4 % 19-41 [facility] Work Phone: Blood monocytes/100 leukocyt eson 02-04-2022 Monocytes/100 WBC (Bld) 8.0 % 0-10 [facility] Work Phone: Blood platelet mean volumeon 02-04-2022 Platelet mean volume (Bld) [Entitic vol] 11.3 fL 6.2-12.0 [facility] Work Phone: Determination of erythrocyte mean corpuscular volume (MCV)on 02-04-2022 MCV (RBC) [Entitic vol] 88.0 fL 80-94 [facility] Work Phone: Hematocrit Auto (Bld) [Volum e fraction]on 02-04-2022 Hematocrit (Bld) [Volume fraction] 38.0 % 40-54 [facility] Work Phone: Laboratory - Chemistry and C hemistry - challengeon 02-04-2022 CO2 [Moles/Vol] 28.0 mmol/L 21.0-32.0 [facility] Work Phone: Natriuretic peptide B (Bld) [Mass/Vol] 256.6 pg/mL 0-100 [facility] Work Phone: [phone] Urea nitrogen/Creatinine [Mass ratio] 8.0 mg/mg 10-20 [facility] Work Phone: Laboratory - Hematology and Cell countson 02-04-2022 Erythrocyte distribution width (RBC) [Entitic vol] 43.9 fL 35.1-43.9 [facility] Work Phone: Erythrocyte distribution width (RBC) [Ratio] 13.6 % 11.6-14.6 [facility] Work Phone: [phone] Immature granulocytes/100 WBC (Bld) 0.400 % 0.0-0.9 [facility] Work Phone: Comment on above: IG% - Immature Granu locytes (promyelocytes, myelocytes and metamyelocytes) > 1% indicates that a LEFT SHIFT is Present. MCH (RBC) [Entitic mass] 30.6 pg 27.0-32.0 [facility] Work Phone: Nucleated RBC/100 WBC (Bld) [Ratio] 0 % 0-5 [facility] Work Phone: MCHC Auto (RBC) [Mass/Vol]on 02-04-2022 MCHC (RBC) [Mass/Vol] 34.7 g/dL 32-36 [facility] Work Phone: No Panel Informationon 02-04 Estimated Creatinine Clearance Calc 33.80 ml/min [facility] Work Phone: Estimated GFR (MDRD) Amer 52 mL/min >60 [facility] Work Phone: Comment on above: GFR Calc Estimated GFR (MDRD) Non-Af Amer 43 mL/min >60 [facility] Work Phone: Comment on above: Non- GFR Calc Troponin I High Sensitivity 22 pg/mL 3.0-78.0 [facility] Work Phone: Comment on above: Please Note: [place] t Units and Gender Specific Reference Ranges. For more information see Policy Stat Procedure [place] High Sensitivity Troponin (TNIH) and attachments. Platelets bldon 02-04-2022 Platelets (Bld) [#/Vol] 203 10*3/uL 150-450 [facility] Work Phone: Serum or plasma calcium sita urement (mass/volume)on 02-04-2022 Calcium [Mass/Vol] 8.7 mg/dL 8.5-10.1 [facility] Work Phone: Serum or plasma creatinine m easurement (mass/volume)on 02-04-2022 Creatinine [Mass/Vol] 1.62 mg/dL 0.70-1.30 [facility] Work Phone: Comment on above: The validity of the calculated GFR & GFRAA in patients over 70 years has not been determined. Clinical correlation is essential. Serum or plasma urea nitroge n measurement (mass/volume)on 02-04-2022 Urea nitrogen [Mass/Vol] 13 mg/dL 7-18 [facility] Work Phone: Thin prep Papanicolaou smear with manual screeningon 02-04-2022 Thin prep Papanicolaou smear with manual screening 7 5-15 [facility] Work Phone: Absolute lymphocyte counton 01-18-2022 Lymphocytes Auto (Unsp spec) [#/Vol] 1.28 10*3/uL 0.83-4.51 [facility] Work Phone: Basophil percentageon 2021 Basophils/100 WBC (Bld) 0.6 % 0-1 [facility] Work Phone: Bilirubin [Mass/Vol] 1.70 mg/dL 0.20-1.00 [facility] Work Phone: Comment on above: For patients on eltr ombopag therapy, use of Dimension [place] TBIL is not recommended. Chloride [Moles/Vol] 98 mmol/L 98-107 [facility] Work Phone: Eosinophils/100 WBC (Bld) 2.7 % 0-5 [facility] Work Phone: Glucose [Mass/Vol] 193 mg/dL 74-106 [facility] Work Phone: Comment on above: Fasting Glucose resu lt greater than or equal to 126 mg/dL suggests DIABETES MELLITUS per A.D.A. criteria. Neutrophils (Bld) [#/Vol] 6.6 10*3/uL 2.0-7.7 [facility] Work Phone: Neutrophils/100 WBC (Bld) 72.6 % 47-70 [facility] Work Phone: Potassium [Moles/Vol] 3.4 mmol/L 3.5-5.1 [facility] Work Phone: Protein [Mass/Vol] 6.8 g/dL 6.4-8.2 [facility] Work Phone: Sodium [Moles/Vol] 136 mmol/L 136-145 [facility] Work Phone: WBC (Bld) [#/Vol] 9.0 10*3/uL 4.4-11.0 [facility] Work Phone: Blood erythrocytes count (nu mber/volume)on 01-18-2022 RBC (Bld) [#/Vol] 4.33 10*6/uL 4.6-6.2 [facility]: Blood hemoglobin measurement (mass/volume)on 01-18-2022 Hemoglobin (Bld) [Mass/Vol] 12.9 g/dL 13.0-16.5 [facility] Work Phone: Blood lymphocytes/100 leukoc yteson 01-18-2022 Lymphocytes/100 WBC (Bld) 14.2 % 19-41 [facility] Work Phone: Blood monocytes/100 leukocyt eson 01-18-2022 Monocytes/100 WBC (Bld) 9.5 % 0-10 [facility] Work Phone: Blood platelet mean volumeon 01-18-2022 Platelet mean volume (Bld) [Entitic vol] 11.6 fL 6.2-12.0 [facility] Work Phone: Determination of erythrocyte mean corpuscular volume (MCV)on 01-18-2022 MCV (RBC) [Entitic vol] 87.8 fL 80-94 [facility] Work Phone: Hematocrit Auto (Bld) [Volum e fraction]on 01-18-2022 Hematocrit (Bld) [Volume fraction] 38.0 % 40-54 [facility] Work Phone: Laboratory - Chemistry and C hemistry - challengeon 01-18-2022 ALP [Catalytic activity/Vol] 143 U/L 45-117 [facility] Work Phone: ALT [Catalytic activity/Vol] 22 U/L 16-61 [facility] Work Phone: CO2 [Moles/Vol] 31.0 mmol/L 21.0-32.0 [facility] Work Phone: Globulin (S) [Mass/Vol] 3.6 g/dL 2.2-4.2 [facility] Work Phone: Urea nitrogen/Creatinine [Mass ratio] 8.6 mg/mg 10-20 [facility] Work Phone: Laboratory - Hematology and Cell countson 01-18-2022 Erythrocyte distribution width (RBC) [Entitic vol] 42.8 fL 35.1-43.9 [facility] Work Phone: Erythrocyte distribution width (RBC) [Ratio] 13.2 % 11.6-14.6 [facility] Work Phone: Immature granulocytes/100 WBC (Bld) 0.400 % 0.0-0.9 [facility] Work Phone: Comment on above: IG% - Immature Granu locytes (promyelocytes, myelocytes and metamyelocytes) > 1% indicates that a LEFT SHIFT is Present. MCH (RBC) [Entitic mass] 29.8 pg 27.0-32.0 [facility] Work Phone: Nucleated RBC/100 WBC (Bld) [Ratio] 0 % 0-5 [facility] Work Phone: MCHC Auto (RBC) [Mass/Vol]on 01-18-2022 MCHC (RBC) [Mass/Vol] 33.9 g/dL 32-36 [facility] Work [facility]: No Panel Informationon 01-18 Estimated GFR (MDRD) Amer 62 mL/min >60 [facility] Work Phone: Comment on above: GFR Calc Estimated GFR (MDRD) Non-Af Amer 52 mL/min >60 [facility] Work Phone: Comment on above: Non- GFR Calc Thyroid Stimulating Hormone (TSH) 2.83 uIU/mL 0.358-3.74 [facility] Work Phone: Vitamin D 25-Hydroxy 43.2 ng/mL [facility] Work Phone: Comment on above: Vitamin D 25(OH) Sta tus Range Deficiency <20 ng/mL (50nmol/L) Insufficiency 20 - 30 ng/mL (50 - 75 nmol/L) Sufficiency 30 - 100 ng/mL (75 - 250 nmol/L) Toxicity >100 ng/mL (>250 nmol/L) Platelets bldon 01-18-2022 Platelets (Bld) [#/Vol] 190 10*3/uL 150-450 [facility] Work Phone: Serum or plasma albumin sita urement (mass/volume)on 01-18-2022 Albumin [Mass/Vol] 3.2 g/dL 3.2-5.0 [facility] Work Phone: Serum or plasma albumin/glob ulin mass ratioon 01-18-2022 Albumin/Globulin [Mass ratio] 0.9 {ratio} 0.9-2.4 [facility] Work Phone: Serum or plasma calcium sita urement (mass/volume)on 01-18-2022 Calcium [Mass/Vol] 8.3 mg/dL 8.5-10.1 [facility] Work Phone: Serum or plasma creatinine m easurement (mass/volume)on 01-18-2022 Creatinine [Mass/Vol] 1.39 mg/dL 0.70-1.30 [facility] Work Phone: Comment on above: The validity of the calculated GFR & GFRAA in patients over 70 years has not been determined. Clinical correlation is essential. Serum or plasma urea nitroge n measurement (mass/volume)on 01-18-2022 Urea nitrogen [Mass/Vol] 12 mg/dL 7-18 [facility] Work Phone: Thin prep Papanicolaou smear with manual screeningon 01-18-2022 Thin prep Papanicolaou smear with manual screening 15 U/L 15-37 [facility] Work Phone: Thin prep Papanicolaou smear with manual screening 7 5-15 [facility] Work Phone: Basophil percentageon 2021 Chloride [Moles/Vol] 101 mmol/L 98-107 [facility] Work Phone: Glucose [Mass/Vol] 137 mg/dL 74-106 [facility] Work Phone: Comment on above: Fasting Glucose resu lt greater than or equal to 126 mg/dL suggests DIABETES MELLITUS per A.D.A. criteria. Potassium [Moles/Vol] 3.7 mmol/L 3.5-5.1 [facility] Work Phone: Sodium [Moles/Vol] 137 mmol/L 136-145 [facility] Work Phone: Laboratory - Chemistry and C hemistry - challengeon 12-27-2021 CO2 [Moles/Vol] 29.0 mmol/L 21.0-32.0 [facility] Work Phone: Magnesium [Mass/Vol] 1.8 mg/dL 1.6-2.6 [facility] Work Phone: Urea nitrogen/Creatinine [Mass ratio] 8.9 mg/mg 10-20 [facility] Work Phone: No Panel Informationon 12-27 Estimated GFR (MDRD) Amer 54 mL/min >60 [facility] Work Phone: Comment on above: GFR Calc Estimated GFR (MDRD) Non-Af Amer 44 mL/min >60 [facility] Work Phone: Comment on above: Non- GFR Calc Serum or plasma calcium sita urement (mass/volume)on 12-27-2021 Calcium [Mass/Vol] 9.1 mg/dL 8.5-10.1 [facility] Work Phone: Serum or plasma creatinine m easurement (mass/volume)on 12-27-2021 Creatinine [Mass/Vol] 1.58 mg/dL 0.70-1.30 [facility] Work Phone: Comment on above: The validity of the calculated GFR & GFRAA in patients over 70 years has not been determined. Clinical correlation is essential. Serum or plasma urea nitroge n measurement (mass/volume)on 12-27-2021 Urea nitrogen [Mass/Vol] 14 mg/dL 7-18 [facility] Work Phone: Thin prep Papanicolaou smear with manual screeningon 12-27-2021 Thin prep Papanicolaou smear with manual screening 7 5-15 [facility] Work Phone: Absolute lymphocyte counton 12-22-2021 Lymphocytes Auto (Unsp spec) [#/Vol] 1.02 10*3/uL 0.83-4.51 [facility] Work Phone: Basophil percentageon 2021 Basophils/100 WBC (Bld) 0.4 % 0-1 [facility] Work Phone: Chloride [Moles/Vol] 98 mmol/L 98-107 [facility] Work Phone: Cholesterol [Mass/Vol] 85 mg/dL <200 [facility] Work Phone: [phone] Comment on above: <200 mg/dL Desirable 200-240 mg/dL Borderline >240 mg/dL High Risk Eosinophils/100 WBC (Bld) 2.0 % 0-5 [facility] Work Phone: Glucose [Mass/Vol] 130 mg/dL 74-106 [facility] Work Phone: Comment on above: Fasting Glucose resu lt greater than or equal to 126 mg/dL suggests DIABETES MELLITUS per A.D.A. criteria. Neutrophils (Bld) [#/Vol] 5.9 10*3/uL 2.0-7.7 [facility] Work Phone: Neutrophils/100 WBC (Bld) 74.4 % 47-70 [facility] Work Phone: Potassium [Moles/Vol] 3.1 mmol/L 3.5-5.1 [facility] Work Phone: Sodium [Moles/Vol] 134 mmol/L 136-145 [facility] Work Phone: Triglyceride [Mass/Vol] 73 mg/dL <199 [facility] Work Phone: Comment on above: The drugs N-Acetylcy steine and Metamizole may falsely depress this assay.Serum Triglycerides Reference Interval Normal <150 mg/dL Borderline high 150 - 199 mg/dL High 200 - 499 mg/dL Very High > or = 500 mg/dL WBC (Bld) [#/Vol] 7.9 10*3/uL 4.4-11.0 [facility] Work Phone: Blood erythrocytes count (nu mber/volume)on 12-22-2021 RBC (Bld) [#/Vol] 3.60 10*6/uL 4.6-6.2 [facility] Work Phone: Blood hemoglobin measurement (mass/volume)on 12-22-2021 Hemoglobin (Bld) [Mass/Vol] 10.9 g/dL 13.0-16.5 [facility] Work Phone: Blood lymphocytes/100 leukoc yteson 12-22-2021 Lymphocytes/100 WBC (Bld) 13.0 % 19-41 [facility] Work Phone: Blood monocytes/100 leukocyt eson 12-22-2021 Monocytes/100 WBC (Bld) 9.8 % 0-10 [facility] Work Phone: Blood platelet mean volumeon 12-22-2021 Platelet mean volume (Bld) [Entitic vol] 11.8 fL 6.2-12.0 [facility] Work Phone: Determination of erythrocyte mean corpuscular volume (MCV)on 12-22-2021 MCV (RBC) [Entitic vol] 86.7 fL 80-94 [facility] Work Phone: Hematocrit Auto (Bld) [Volum e fraction]on 12-22-2021 Hematocrit (Bld) [Volume fraction] 31.2 % 40-54 [facility] Work Phone: Laboratory - Chemistry and C hemistry - challengeon 12-22-2021 CO2 [Moles/Vol] 28.0 mmol/L 21.0-32.0 [facility] Work Phone: Urea nitrogen/Creatinine [Mass ratio] 7.7 mg/mg 10-20 [facility] Work Phone: Laboratory - Hematology and Cell countson 12-22-2021 Erythrocyte distribution width (RBC) [Entitic vol] 41.1 fL 35.1-43.9 [facility] Work Phone: Erythrocyte distribution width (RBC) [Ratio] 13.0 % 11.6-14.6 [facility] Work Phone: Immature granulocytes/100 WBC (Bld) 0.400 % 0.0-0.9 [facility] Work Phone: Comment on above: IG% - Immature Granu locytes (promyelocytes, myelocytes and metamyelocytes) > 1% indicates that a LEFT SHIFT is Present. MCH (RBC) [Entitic mass] 30.3 pg 27.0-32.0 [facility] Work Phone: Nucleated RBC/100 WBC (Bld) [Ratio] 0 % 0-5 [facility] Work Phone: MCHC Auto (RBC) [Mass/Vol]on 12-22-2021 MCHC (RBC) [Mass/Vol] 34.9 g/dL 32-36 [facility] Work Phone: No Panel Informationon 12-22 Estimated Creatinine Clearance Calc 38.56 ml/min [facility] Work Phone: Estimated GFR (MDRD) Amer 61 mL/min >60 [facility] Work Phone: Comment on above: GFR Calc Estimated GFR (MDRD) Non-Af Amer 50 mL/min >60 [facility] Work Phone: Comment on above: Non- GFR Calc Thyroid Stimulating Hormone (TSH) 3.25 uIU/mL 0.358-3.74 [facility] Work Phone: Platelets bldon 12-22-2021 Platelets (Bld) [#/Vol] 190 10*3/uL 150-450 [facility] Work Phone: Serum or plasma calcium sita urement (mass/volume)on 12-22-2021 Calcium [Mass/Vol] 8.3 mg/dL 8.5-10.1 [facility] Work Phone: Serum or plasma cholesterol in HDL measurement (mass/volume)on 12-22-2021 Cholesterol in HDL [Mass/Vol] 39 mg/dL >40 [facility] Work Phone: Comment on above: The drugs N-Acetylcy steine and Metamizole may falsely depress this assay. Reference Range HDL <40 mg/dL Low HDL Cholesterol HDL >or= 60 mg/dL High HDL Cholesterol Serum or plasma cholesterol in VLDL measurement (mass/volume)on 12-22-2021 Cholesterol in VLDL [Mass/Vol] 15 mg/dL 5-40 [facility] Work Phone: Serum or plasma cortisol osbaldo surement (mass/volume)on 12-22-2021 Cortisol [Mass/Vol] 11.00 ug/dL 3.44-22.45 [facility] Work Phone: Comment on above: Adult (AM) 5.27 - 22 .45 ug/dL Adult (PM) 3.44 - 16.76 ug/dLPlease note revised CORTISOL reference range effective 2019. Serum or plasma creatinine m easurement (mass/volume)on 12-22-2021 Creatinine [Mass/Vol] 1.42 mg/dL 0.70-1.30 [facility] Work Phone: Comment on above: The validity of the calculated GFR & GFRAA in patients over 70 years has not been determined. Clinical correlation is essential. Serum or plasma low density lipoprotein (LDL) cholesterol measurement (mass/volume)on 12-22-2021 Cholesterol in LDL [Mass/Vol] 31 mg/dL 0-130 [facility] Work Phone: Serum or plasma urea nitroge n measurement (mass/volume)on 12-22-2021 Urea nitrogen [Mass/Vol] 11 mg/dL 7-18 [facility] Work Phone: Thin prep Papanicolaou smear with manual screeningon 12-22-2021 Thin prep Papanicolaou smear with manual screening 8 5-15 [facility] Work Phone: Absolute lymphocyte counton 12-21-2021 Lymphocytes Auto (Unsp spec) [#/Vol] 0.91 10*3/uL 0.83-4.51 [facility] Work Phone: Basophil percentageon 2021 Basophil percentage 3.4 mg/dL 2.5-4.9 [facility] Work [facility]: Basophils/100 WBC (Bld) 0.3 % 0-1 [facility] Work Phone: Chloride [Moles/Vol] 95 mmol/L 98-107 [facility] Work Phone: Eosinophils/100 WBC (Bld) 0.8 % 0-5 [facility] Work Phone: Glucose [Mass/Vol] 213 mg/dL 74-106 [facility] Work Phone: Comment on above: Glucose result great er than or equal to 200 mg/dLsuggests DIABETES MELLITUS per A.D.A. criteria. Neutrophils (Bld) [#/Vol] 6.9 10*3/uL 2.0-7.7 [facility] Work Phone: Neutrophils/100 WBC (Bld) 79.9 % 47-70 [facility] Work Phone: Potassium [Moles/Vol] 3.6 mmol/L 3.5-5.1 [facility] Work Phone: Sodium [Moles/Vol] 132 mmol/L 136-145 [facility] Work Phone: WBC (Bld) [#/Vol] 8.6 10*3/uL 4.4-11.0 [facility] Work Phone: Blood erythrocytes count (nu mber/volume)on 12-21-2021 RBC (Bld) [#/Vol] 4.17 10*6/uL 4.6-6.2 [facility] Work Phone: Blood hemoglobin measurement (mass/volume)on 12-21-2021 Hemoglobin (Bld) [Mass/Vol] 12.5 g/dL 13.0-16.5 [facility] Work Phone: Blood lymphocytes/100 leukoc yteson 12-21-2021 Lymphocytes/100 WBC (Bld) 10.6 % 19-41 [facility] Work Phone: Blood monocytes/100 leukocyt eson 12-21-2021 Monocytes/100 WBC (Bld) 7.9 % 0-10 [facility] Work Phone: Blood platelet mean volumeon 12-21-2021 Platelet mean volume (Bld) [Entitic vol] 11.5 fL 6.2-12.0 [facility] Work Phone: Determination of erythrocyte mean corpuscular volume (MCV)on 12-21-2021 MCV (RBC) [Entitic vol] 88.7 fL 80-94 [facility] Work Phone: Hematocrit Auto (Bld) [Volum e fraction]on 12-21-2021 Hematocrit (Bld) [Volume fraction] 37.0 % 40-54 [facility] Work Phone: INR in Blood by Coagulation assayon 12-21-2021 INR Coag (Bld) [Relative time] 1.4 {INR} [facility] Work Phone: Laboratory - Chemistry and C hemistry - challengeon 12-21-2021 Sodium (U) [Moles/Vol] 47 mmol/L Not Establ. [facility] Work Phone: Magnesium [Mass/Vol] 1.4 mg/dL 1.6-2.6 [facility] Work Phone: CO2 [Moles/Vol] 30.0 mmol/L 21.0-32.0 [facility] Work Phone: Natriuretic peptide B (Bld) [Mass/Vol] 334.0 pg/mL 0-100 [facility] Work Phone: Urea nitrogen/Creatinine [Mass ratio] 7.9 mg/mg 10-20 [facility] Work Phone: Laboratory - Coagulationon 0 12-21-2021 PT Coag (PPP) [Time] 16.9 s 11.7-14.9 [facility] Work Phone: Laboratory - Hematology and Cell countson 12-21-2021 Erythrocyte distribution width (RBC) [Entitic vol] 42.4 fL 35.1-43.9 [facility] Work Phone: Erythrocyte distribution width (RBC) [Ratio] 13.0 % 11.6-14.6 [facility] Work Phone: Immature granulocytes/100 WBC (Bld) 0.500 % 0.0-0.9 [facility] Work Phone: Comment on above: IG% - Immature Granu locytes (promyelocytes, myelocytes and metamyelocytes) > 1% indicates that a LEFT SHIFT is Present. MCH (RBC) [Entitic mass] 30.0 pg 27.0-32.0 [facility] Work Phone: Nucleated RBC/100 WBC (Bld) [Ratio] 0 % 0-5 [facility] Work Phone: MCHC Auto (RBC) [Mass/Vol]on 12-21-2021 MCHC (RBC) [Mass/Vol] 33.8 g/dL 32-36 [facility] Work Phone: No Panel Informationon 12-21 Troponin I High Sensitivity 23 pg/mL 3.0-78.0 [facility] Work Phone: Comment on above: Please Note: [place] t Units and Gender Specific Reference Ranges. For more information see Policy Stat Procedure [place] High Sensitivity Troponin (TNIH) and attachments. D-Dimer Quantitative (PE/DVT) 1.02 FEU/ug/m 0.27-0.49 [facility] Work Phone: Comment on above: D-Dimer ELEVATED (>0 .49): Additional studies and clinicalassessments are indicated to conclude diagnosis of:Deep Vein Thrombosis (DVT) or Pulmonary Embolism (PE)RESULTS CALLED TO DEBORAH PEACOCK RN 12/21/21 [id number] Shakira Kirkland.REPORT READ BACK BY SAME. Estimated Creatinine Clearance Calc 39.11 ml/min [facility] Work Phone: Estimated GFR (MDRD) Amer 62 mL/min >60 [facility] Work Phone: Comment on above: GFR Calc Estimated GFR (MDRD) Non-Af Amer 51 mL/min >60 [facility] Work Phone: Comment on above: Non- GFR Calc Troponin I High Sensitivity 20 pg/mL 3.0-78.0 [facility] Work Phone: Comment on above: Please Note: [place] t Units and Gender Specific Reference Ranges. For more information see Policy Stat Procedure [place] High Sensitivity Troponin (TNIH) and attachments. Platelets bldon 12-21-2021 Platelets (Bld) [#/Vol] 199 10*3/uL 150-450 [facility] Work Phone: Serum or plasma calcium sita urement (mass/volume)on 12-21-2021 Calcium [Mass/Vol] 8.4 mg/dL 8.5-10.1 [facility] Work Phone: Serum or plasma creatinine m easurement (mass/volume)on 12-21-2021 Creatinine [Mass/Vol] 1.40 mg/dL 0.70-1.30 [facility] Work Phone: Comment on above: The validity of the calculated GFR & GFRAA in patients over 70 years has not been determined. Clinical correlation is essential. Serum or plasma urea nitroge n measurement (mass/volume)on 12-21-2021 Urea nitrogen [Mass/Vol] 11 mg/dL 7-18 [facility] Work Phone: Thin prep Papanicolaou smear with manual screeningon 08-04-2022 Thin prep Papanicolaou smear with manual screening 285 mOsm/KG 280-301 [facility] Work Phone: Thin prep Papanicolaou smear with manual screening 7 5-15 [facility] Work Phone: Urine creatinine measurement (mass/volume)on 12-21-2021 Creatinine (U) [Mass/Vol] 31.30 mg/dL NO RANGE EST. [facility] Work Phone: Urine osmolality measurement on 12-21-2021 Osmolality (U) [Osmolality] 261 mOsm/KG >50 [facility] Work Phone: Comment on above: Normal Urine Referen ce Ranges Random: 50 - 1200 mOsm/kg H20 depending on fluid intake Random: >850 mOsm/kg after 12 hour fluid restriction 24 hour: ~300 - 900 mOsm/kg H2O Absolute lymphocyte counton 12-19-2021 Lymphocytes Auto (Unsp spec) [#/Vol] 0.88 10*3/uL 0.83-4.51 [facility] Work Phone: Basophil percentageon 2021 Basophils/100 WBC (Bld) 0.3 % 0-1 [facility] Work Phone: Chloride [Moles/Vol] 99 mmol/L 98-107 [facility] Work Phone: Eosinophils/100 WBC (Bld) 2.3 % 0-5 [facility] Work Phone: Glucose [Mass/Vol] 241 mg/dL 74-106 [facility] Work Phone: Comment on above: Glucose result great er than or equal to 200 mg/dLsuggests DIABETES MELLITUS per A.D.A. criteria. Neutrophils (Bld) [#/Vol] 6.1 10*3/uL 2.0-7.7 [facility] Work Phone: Neutrophils/100 WBC (Bld) 77.1 % 47-70 [facility] Work Phone: Potassium [Moles/Vol] 3.3 mmol/L 3.5-5.1 [facility] Work Phone: Sodium [Moles/Vol] 132 mmol/L 136-145 [facility] Work Phone: WBC (Bld) [#/Vol] 7.9 10*3/uL 4.4-11.0 [facility] Work Phone: Blood erythrocytes count (nu mber/volume)on 12-19-2021 RBC (Bld) [#/Vol] 3.92 10*6/uL 4.6-6.2 [facility] Work Phone: Blood hemoglobin measurement (mass/volume)on 12-19-2021 Hemoglobin (Bld) [Mass/Vol] 11.9 g/dL 13.0-16.5 [facility] Work Phone: Blood lymphocytes/100 leukoc yteson 12-19-2021 Lymphocytes/100 WBC (Bld) 11.2 % 19-41 [facility] Work Phone: Blood monocytes/100 leukocyt eson 12-19-2021 Monocytes/100 WBC (Bld) 8.6 % 0-10 [facility] Work Phone: Blood platelet mean volumeon 12-19-2021 Platelet mean volume (Bld) [Entitic vol] 10.9 fL 6.2-12.0 [facility] Work Phone: Determination of erythrocyte mean corpuscular volume (MCV)on 12-19-2021 MCV (RBC) [Entitic vol] 87.8 fL 80-94 [facility] Work Phone: Hematocrit Auto (Bld) [Volum e fraction]on 12-19-2021 Hematocrit (Bld) [Volume fraction] 34.4 % 40-54 [facility] Work Phone: Laboratory - Chemistry and C hemistry - challengeon 12-19-2021 CO2 [Moles/Vol] 29.0 mmol/L 21.0-32.0 [facility] Work Phone: Natriuretic peptide B (Bld) [Mass/Vol] 310.7 pg/mL 0-100 [facility] Work Phone: Urea nitrogen/Creatinine [Mass ratio] 7.7 mg/mg 10-20 [facility] Work Phone: Laboratory - Hematology and Cell countson 12-19-2021 Erythrocyte distribution width (RBC) [Entitic vol] 42.5 fL 35.1-43.9 [facility] Work Phone: Erythrocyte distribution width (RBC) [Ratio] 13.2 % 11.6-14.6 [facility] Work Phone: Immature granulocytes/100 WBC (Bld) 0.500 % 0.0-0.9 [facility] Work Phone: Comment on above: IG% - Immature Granu locytes (promyelocytes, myelocytes and metamyelocytes) > 1% indicates that a LEFT SHIFT is Present. MCH (RBC) [Entitic mass] 30.4 pg 27.0-32.0 [facility] Work Phone: Nucleated RBC/100 WBC (Bld) [Ratio] 0 % 0-5 [facility] Work Phone: MCHC Auto (RBC) [Mass/Vol]on 12-19-2021 MCHC (RBC) [Mass/Vol] 34.6 g/dL 32-36 [facility] Work Phone: No Panel Informationon 12-19 Estimated Creatinine Clearance Calc 38.56 ml/min [facility] Work Phone: Estimated GFR (MDRD) Amer 61 mL/min >60 [facility] Work Phone: Comment on above: GFR Calc Estimated GFR (MDRD) Non-Af Amer 50 mL/min >60 [facility] Work Phone: Comment on above: Non- GFR Calc Troponin I High Sensitivity 22 pg/mL 3.0-78.0 [facility] [facility] Work Phone: Comment on above: Please Note: [place] t Units and Gender Specific Reference Ranges. For more information see Policy Stat Procedure [place] High Sensitivity Troponin (TNIH) and attachments. Platelets bldon 12-19-2021 Platelets (Bld) [#/Vol] 189 10*3/uL 150-450 [facility] Work Phone: Serum or plasma calcium sita urement (mass/volume)on 12-19-2021 Calcium [Mass/Vol] 8.4 mg/dL 8.5-10.1 [facility] Work Phone: Serum or plasma creatinine m easurement (mass/volume)on 12-19-2021 Creatinine [Mass/Vol] 1.42 mg/dL 0.70-1.30 [facility] Work Phone: Comment on above: The validity of the calculated GFR & GFRAA in patients over 70 years has not been determined. Clinical correlation is essential. Serum or plasma urea nitroge n measurement (mass/volume)on 12-19-2021 Urea nitrogen [Mass/Vol] 11 mg/dL 7-18 [facility] Work Phone: Thin prep Papanicolaou smear with manual screeningon 12-19-2021 Thin prep Papanicolaou smear with manual screening 4 5-15 [facility] Work Phone: Basophil percentageon 2021 Bilirubin [Mass/Vol] 2.10 mg/dL 0.20-1.00 [facility] Work Phone: Comment on above: For patients on eltr ombopag therapy, use of Dimension [place] TBIL is not recommended. Chloride [Moles/Vol] 95 mmol/L 98-107 [facility] Work Phone: Glucose [Mass/Vol] 140 mg/dL 74-106 [facility] Work Phone: Comment on above: Fasting Glucose resu lt greater than or equal to 126 mg/dL suggests DIABETES MELLITUS per A.D.A. criteria. Potassium [Moles/Vol] 3.7 mmol/L 3.5-5.1 [facility] Work Phone: Protein [Mass/Vol] 6.3 g/dL 6.4-8.2 [facility] Work Phone: Sodium [Moles/Vol] 130 mmol/L 136-145 [facility] Work Phone: Laboratory - Chemistry and C hemistry - challengeon 11-02-2021 ALP [Catalytic activity/Vol] 101 U/L 45-117 [facility] Work Phone: ALT [Catalytic activity/Vol] 20 U/L 16-61 [facility] Work Phone: CO2 [Moles/Vol] 29.0 mmol/L 21.0-32.0 [facility] Work Phone: Globulin (S) [Mass/Vol] 3.1 g/dL 2.2-4.2 [facility] Work Phone: Sodium (U) [Moles/Vol] 50 mmol/L Not Establ. [facility] Work Phone: Urea nitrogen/Creatinine [Mass ratio] 6.5 mg/mg 10-20 [facility] Work Phone: No Panel Informationon 11-02 Estimated GFR (MDRD) Amer 63 mL/min >60 [facility] Work Phone: Comment on above: GFR Calc Estimated GFR (MDRD) Non-Af Amer 52 mL/min >60 [facility] Work Phone: Comment on above: Non- GFR Calc Serum or plasma albumin sita urement (mass/volume)on 11-02-2021 Albumin [Mass/Vol] 3.2 g/dL 3.2-5.0 [facility] Work Phone: Serum or plasma albumin/glob ulin mass ratioon 11-02-2021 Albumin/Globulin [Mass ratio] 1.0 {ratio} 0.9-2.4 [facility] Work Phone: Serum or plasma calcium sita urement (mass/volume)on 11-02-2021 Calcium [Mass/Vol] 8.6 mg/dL 8.5-10.1 [facility] Work Phone: Serum or plasma creatinine m easurement (mass/volume)on 11-02-2021 Creatinine [Mass/Vol] 1.38 mg/dL 0.70-1.30 [facility] Work Phone: Comment on above: The validity of the calculated GFR & GFRAA in patients over 70 years has not been determined. Clinical correlation is essential. Serum or plasma urea nitroge n measurement (mass/volume)on 11-02-2021 Urea nitrogen [Mass/Vol] 9 mg/dL 7-18 [facility] Work Phone: Thin prep Papanicolaou smear with manual screeningon 11-02-2021 Thin prep Papanicolaou smear with manual screening 17 U/L 15-37 [facility] Work Phone: Thin prep Papanicolaou smear with manual screening 6 5-15 [facility] Work Phone: Absolute lymphocyte counton 10-26-2021 Lymphocytes Auto (Unsp spec) [#/Vol] 0.94 10*3/uL 0.83-4.51 [facility] Work Phone: Basophil percentageon 2021 Basophil percentage 3.0 mg/dL 2.5-4.9 [facility] Work Phone: Chloride [Moles/Vol] 92 mmol/L 98-107 [facility] Work Phone: Glucose [Mass/Vol] 112 mg/dL 74-106 [facility] Work Phone: Comment on above: Fasting Glucose resu lt from 100 to 125 mg/dL suggests IMPAIRED HOMEOSTASIS per A.D.A. criteria. Potassium [Moles/Vol] 3.5 mmol/L 3.5-5.1 [facility] Work Phone: Sodium [Moles/Vol] 127 mmol/L 136-145 [facility] Work Phone: Basophils/100 WBC (Bld) 0.1 % 0-1 [facility] Work Phone: Eosinophils/100 WBC (Bld) 0.6 % 0-5 [facility] Work Phone: Neutrophils (Bld) [#/Vol] 7.8 10*3/uL 2.0-7.7 [facility] Work Phone: Neutrophils/100 WBC (Bld) 80.0 % 47-70 [facility] Work Phone: WBC (Bld) [#/Vol] 9.8 10*3/uL 4.4-11.0 [facility] Work Phone: Blood erythrocytes count (nu mber/volume)on 10-26-2021 RBC (Bld) [#/Vol] 3.45 10*6/uL 4.6-6.2 [facility] Work Phone: Blood hemoglobin measurement (mass/volume)on 10-26-2021 Hemoglobin (Bld) [Mass/Vol] 10.9 g/dL 13.0-16.5 [facility] Work Phone: Blood lymphocytes/100 leukoc yteson 10-26-2021 Lymphocytes/100 WBC (Bld) 9.6 % 19-41 [facility] Work Phone: Blood monocytes/100 leukocyt eson 10-26-2021 Monocytes/100 WBC (Bld) 9.3 % 0-10 [facility] Work Phone: Blood platelet mean volumeon 10-26-2021 Platelet mean volume (Bld) [Entitic vol] 11.0 fL 6.2-12.0 [facility] Work Phone: Determination of erythrocyte mean corpuscular volume (MCV)on 10-26-2021 MCV (RBC) [Entitic vol] 87.0 fL 80-94 [facility] Work Phone: Glucose Glucometer (BldC) [M ass/Vol]on 10-26-2021 Glucose [Mass/Vol] 139 mg/dL 74-106 [facility] Work Phone: Comment on above: MANAGEMENT OF PATIEN T CARE PER NURSING PROTOCOL Hematocrit Auto (Bld) [Volum e fraction]on 10-26-2021 Hematocrit (Bld) [Volume fraction] 30.0 % 40-54 [facility] Work Phone: Laboratory - Chemistry and C hemistry - challengeon 10-26-2021 CO2 [Moles/Vol] 28.0 mmol/L 21.0-32.0 [facility] Work Phone: Urea nitrogen/Creatinine [Mass ratio] 7.5 mg/mg 10-20 [facility] Work Phone: Magnesium [Mass/Vol] 1.3 mg/dL 1.6-2.6 [facility] Work Phone: Laboratory - Hematology and Cell countson 10-26-2021 Erythrocyte distribution width (RBC) [Entitic vol] 38.5 fL 35.1-43.9 [facility] Work Phone: Erythrocyte distribution width (RBC) [Ratio] 11.9 % 11.6-14.6 [facility] Work Phone: Immature granulocytes/100 WBC (Bld) 0.400 % 0.0-0.9 [facility] Work Phone: Comment on above: IG% - Immature Granu locytes (promyelocytes, myelocytes and metamyelocytes) > 1% indicates that a LEFT SHIFT is Present. MCH (RBC) [Entitic mass] 31.6 pg 27.0-32.0 [facility] Work Phone: Nucleated RBC/100 WBC (Bld) [Ratio] 0 % 0-5 [facility] Work Phone: MCHC Auto (RBC) [Mass/Vol]on 10-26-2021 MCHC (RBC) [Mass/Vol] 36.3 g/dL 32-36 [facility] Work Phone: No Panel Informationon 10-26 Estimated Creatinine Clearance Calc 51.65 ml/min [facility] Work Phone: Estimated GFR (MDRD) Amer 85 mL/min >60 [facility] Work Phone: Comment on above: GFR Calc Estimated GFR (MDRD) Non-Af Amer 70 mL/min >60 [facility] Work Phone: Comment on above: Non- GFR Calc Vitamin D 25-Hydroxy 38.0 ng/mL [facility] Work Phone: Comment on above: Vitamin D 25(OH) Sta tus Range Deficiency <20 ng/mL (50nmol/L) Insufficiency 20 - 30 ng/mL (50 - 75 nmol/L) Sufficiency 30 - 100 ng/mL (75 - 250 nmol/L) Toxicity >100 ng/mL (>250 nmol/L) Platelets bldon 10-26-2021 Platelets (Bld) [#/Vol] 204 10*3/uL 150-450 [facility] Work Phone: Serum or plasma calcium sita urement (mass/volume)on 10-26-2021 Calcium [Mass/Vol] 7.7 mg/dL 8.5-10.1 [facility] Work Phone: Serum or plasma cortisol osbaldo surement (mass/volume)on 10-26-2021 Cortisol [Mass/Vol] 10.60 ug/dL 3.44-22.45 [facility] Work Phone: Comment on above: Adult (AM) 5.27 - 22 .45 ug/dL Adult (PM) 3.44 - 16.76 ug/dLPlease note revised CORTISOL reference range effective 2019. Serum or plasma creatinine m easurement (mass/volume)on 10-26-2021 Creatinine [Mass/Vol] 1.06 mg/dL 0.70-1.30 [facility] Work Phone: Comment on above: The validity of the calculated GFR & GFRAA in patients over 70 years has not been determined. Clinical correlation is essential. Serum or plasma urea nitroge n measurement (mass/volume)on 10-26-2021 Urea nitrogen [Mass/Vol] 8 mg/dL 7-18 [facility] Work Phone: Thin prep Papanicolaou smear with manual screeningon 10-26-2021 Thin prep Papanicolaou smear with manual screening 7 5-15 [facility] Work Phone: Whole blood hemoglobin A1c/t otal hemoglobin ratio (mass fraction)on 10-26-2021 HbA1c (Bld) [Mass fraction] 5.9 % 3.8-5.6 [facility] Work Phone: Comment on above: Normal < 5.7 % Predi abetic 5.7 - 6.4 % Diabetic >or= 6.5 % Please note range changes. Absolute lymphocyte counton 10-25-2021 Lymphocytes Auto (Unsp spec) [#/Vol] 0.73 10*3/uL 0.83-4.51 [facility] Work Phone: Basophil percentageon 2021 Basophil percentage 0 SEEN /hpf 0-5 [facility] Work Phone: Basophils/100 WBC (Bld) 0.3 % 0-1 [facility] Work Phone: Bilirubin [Mass/Vol] 1.60 mg/dL 0.20-1.00 [facility] Work Phone: Comment on above: For patients on eltr ombopag therapy, use of Dimension [place] TBIL is not recommended. Chloride [Moles/Vol] 86 mmol/L 98-107 [facility] Work Phone: Eosinophils/100 WBC (Bld) 0.7 % 0-5 [facility] Work Phone: Glucose [Mass/Vol] 214 mg/dL 74-106 [facility] Work Phone: Comment on above: Glucose result great er than or equal to 200 mg/dLsuggests DIABETES MELLITUS per A.D.A. criteria. Neutrophils (Bld) [#/Vol] 7.3 10*3/uL 2.0-7.7 [facility] Work Phone: Neutrophils/100 WBC (Bld) 80.3 % 47-70 [facility] Work Phone: Potassium [Moles/Vol] 3.1 mmol/L 3.5-5.1 [facility] Work Phone: Protein [Mass/Vol] 6.5 g/dL 6.4-8.2 [facility] Work Phone: Sodium [Moles/Vol] 124 mmol/L 136-145 [facility] Work Phone: WBC (Bld) [#/Vol] 9.1 10*3/uL 4.4-11.0 [facility] Work Phone: Bilirubin Test strip Ql (U)o n 10-25-2021 Bilirubin Ql (U) Negative Negative [facility] Work Phone: Blood erythrocytes count (nu mber/volume)on 10-25-2021 RBC (Bld) [#/Vol] 3.79 10*6/uL 4.6-6.2 [facility] Work Phone: Blood hemoglobin measurement (mass/volume)on 10-25-2021 Hemoglobin (Bld) [Mass/Vol] 11.9 g/dL 13.0-16.5 [facility] Work Phone: Blood lymphocytes/100 leukoc yteson 10-25-2021 Lymphocytes/100 WBC (Bld) 8.0 % 19-41 [facility] Work Phone: [phone] Blood monocytes/100 leukocyt eson 10-25-2021 Monocytes/100 WBC (Bld) 10.1 % 0-10 [facility] Work Phone: Blood platelet mean volumeon 10-25-2021 Platelet mean volume (Bld) [Entitic vol] 10.6 fL 6.2-12.0 [facility] Work Phone: Determination of erythrocyte mean corpuscular volume (MCV)on 10-25-2021 MCV (RBC) [Entitic vol] 87.9 fL 80-94 [facility] Work Phone: Hematocrit Auto (Bld) [Volum e fraction]on 10-25-2021 Hematocrit (Bld) [Volume fraction] 33.3 % 40-54 [facility] Work Phone: Ketones Test strip Ql (U)on 10-25-2021 Ketones Ql (U) Negative Negative [facility] Work Phone: Laboratory - Chemistry and C hemistry - challengeon 10-25-2021 Sodium (U) [Moles/Vol] 52 mmol/L Not Establ. [facility] Work Phone: ALP [Catalytic activity/Vol] 103 U/L 45-117 [facility] Work Phone: ALT [Catalytic activity/Vol] 18 U/L 16-61 [facility] Work Phone: CO2 [Moles/Vol] 29.0 mmol/L 21.0-32.0 [facility] Work Phone: Globulin (S) [Mass/Vol] 3.3 g/dL 2.2-4.2 [facility] Work Phone: Urea nitrogen/Creatinine [Mass ratio] 7.2 mg/mg 10-20 [facility] Work Phone: Laboratory - Hematology and Cell countson 10-25-2021 Erythrocyte distribution width (RBC) [Entitic vol] 39.2 fL 35.1-43.9 [facility] Work Phone: Erythrocyte distribution width (RBC) [Ratio] 12.1 % 11.6-14.6 [facility] Work Phone: Immature granulocytes/100 WBC (Bld) 0.600 % 0.0-0.9 [facility] Work Phone: Comment on above: IG% - Immature Granu locytes (promyelocytes, myelocytes and metamyelocytes) > 1% indicates that a LEFT SHIFT is Present. MCH (RBC) [Entitic mass] 31.4 pg 27.0-32.0 [facility] Work Phone: Nucleated RBC/100 WBC (Bld) [Ratio] 0 % 0-5 [facility] Work Phone: MCHC Auto (RBC) [Mass/Vol]on 10-25-2021 MCHC (RBC) [Mass/Vol] 35.7 g/dL 32-36 [facility] Work Phone: Mucus LM Ql (Urine sed)on Mucus Ql (Urine sed) 0 SEEN /hpf [facility] Work Phone: Nitrite Test strip Ql (U)on 10-25-2021 Nitrite Ql (U) Negative Negative [facility] Work Phone: No Panel Informationon 10-25 Ethyl Alcohol Level 6.0 mg/dL [facility] Work Phone: Comment on above: The serum:whole bloo d ethanol ratio is approximately 1.14and varies slightly with hematocrit. Medical Alcohol reference interval and critical value innon-tolerant individuals; 50 - 100 Impairment 100 Intoxication 100 - 250 Severe Poisoning 250 - 400 Deep/possible fatal coma Estimated Creatinine Clearance Calc 38.42 ml/min [facility] Work Phone: Estimated GFR (MDRD) Amer 63 mL/min >60 [facility] Work Phone: Comment on above: GFR Calc Estimated GFR (MDRD) Non-Af Amer 52 mL/min >60 [facility] Work Phone: Comment on above: Non- GFR Calc Troponin I High Sensitivity 12 pg/mL 3.0-78.0 [facility] Work Phone: Comment on above: Please Note: [place] t Units and Gender Specific Reference Ranges. For more information see Policy Stat Procedure [place] High Sensitivity Troponin (TNIH) and attachments. Platelets bldon 10-25-2021 Platelets (Bld) [#/Vol] 221 10*3/uL 150-450 [facility] Work Phone: Protein Test strip Ql (U)on 10-25-2021 Protein Ql (U) Negative Negative [facility] Work Phone: Serum or plasma albumin sita urement (mass/volume)on 10-25-2021 Albumin [Mass/Vol] 3.2 g/dL 3.2-5.0 [facility] Work Phone: Serum or plasma albumin/glob ulin mass ratioon 10-25-2021 Albumin/Globulin [Mass ratio] 1.0 {ratio} 0.9-2.4 [facility] Work Phone: Serum or plasma calcium sita urement (mass/volume)on 10-25-2021 Calcium [Mass/Vol] 7.9 mg/dL 8.5-10.1 [facility] Work Phone: Serum or plasma creatinine m easurement (mass/volume)on 10-25-2021 Creatinine [Mass/Vol] 1.38 mg/dL 0.70-1.30 [facility] Work Phone: Comment on above: The validity of the calculated GFR & GFRAA in patients over 70 years has not been determined. Clinical correlation is essential. Serum or plasma urea nitroge n measurement (mass/volume)on 10-25-2021 Urea nitrogen [Mass/Vol] 10 mg/dL 7-18 [facility] Work Phone: Serum or plasma uric acid me asurement (mass/volume)on 10-25-2021 Urate [Mass/Vol] 5.8 mg/dL 3.5-7.2 [facility] Work Phone: Comment on above: The drugs N-Acetylcy steine and Metamizole may falsely depress this assay. Squamous epithelial cells de tection in urine sediment by light microscopyon 10-25-2021 Epithelial cells.squamous LM Ql (Urine sed) 0 SEEN /hpf 0-5 [facility] Work Phone: Thin prep Papanicolaou smear with manual screeningon 10-25-2021 Thin prep Papanicolaou smear with manual screening 260 mOsm/KG 280-301 [facility] Work Phone: Thin prep Papanicolaou smear with manual screening 14 U/L 15-37 [facility] Work Phone: Thin prep Papanicolaou smear with manual screening 9 5-15 [facility] Work Phone: Urine blood detectionon RBC Ql (U) Negative Negative [facility] Work Phone: RBC Ql (U) 0 SEEN /hpf 0-5 [facility] Work Phone: Urine clarityon 10-25-2021 Clarity (U) Clear Clear [facility] Work Phone: Urine color determinationon 10-25-2021 Color (U) Yellow Yellow [facility] Work Phone: Urine glucose detectionon Glucose Ql (U) Normal mg/dl Normal [facility] Work Phone: Urine leukocyte esterase det ection by dipstickon 10-25-2021 Leukocyte esterase Test strip Ql (U) Negative Negative [facility] Work Phone: Urine osmolality measurement on 10-25-2021 Osmolality (U) [Osmolality] 314 mOsm/KG >50 [facility] Work Phone: Comment on above: Normal Urine Referen ce Ranges Random: 50 - 1200 mOsm/kg H20 depending on fluid intake Random: >850 mOsm/kg after 12 hour fluid restriction 24 hour: ~300 - 900 mOsm/kg H2O Urine pHon 10-25-2021 pH (U) 7.0 [pH] 5.0 - 8.0 [facility] Work Phone: Urine sediment bacteria coun t by microscopy (number/high power field)on 10-25-2021 Bacteria LM.HPF (Urine sed) [#/Area] 0 /[HPF] None Seen [facility] Work Phone: Urine specific gravity measu rementon 10-25-2021 Specific gravity (U) [Rel density] 1.010 1.002-1.030 [facility] Work Phone: Urobilinogen Auto test strip Ql (U)on 10-25-2021 Urobilinogen Ql (U) Normal mg/dl Normal [facility] Work Phone: Absolute lymphocyte counton 10-18-2021 Lymphocytes Auto (Unsp spec) [#/Vol] 0.65 10*3/uL 0.83-4.51 [facility] Work Phone: Basophil percentageon 2021 Basophil percentage 3.0 mg/dL 2.5-4.9 [facility] Work Phone: Basophils/100 WBC (Bld) 0.3 % 0-1 [facility] Work Phone: Bilirubin [Mass/Vol] 2.10 mg/dL 0.20-1.00 [facility] Work Phone: Comment on above: For patients on eltr ombopag therapy, use of Dimension [place] TBIL is not recommended. Chloride [Moles/Vol] 89 mmol/L 98-107 [facility] Work Phone: Eosinophils/100 WBC (Bld) 0.5 % 0-5 [facility] Work Phone: Glucose [Mass/Vol] 131 mg/dL 74-106 [facility] Work Phone: Comment on above: Fasting Glucose resu lt greater than or equal to 126 mg/dL suggests DIABETES MELLITUS per A.D.A. criteria. Neutrophils (Bld) [#/Vol] 5.0 10*3/uL 2.0-7.7 [facility] Work Phone: Neutrophils/100 WBC (Bld) 77.1 % 47-70 [facility] Work Phone: Potassium [Moles/Vol] 3.7 mmol/L 3.5-5.1 [facility] Work Phone: Protein [Mass/Vol] 5.9 g/dL 6.4-8.2 [facility] Work Phone: Sodium [Moles/Vol] 123 mmol/L 136-145 [facility] Work Phone: WBC (Bld) [#/Vol] 6.4 10*3/uL 4.4-11.0 [facility] Work Phone: Blood erythrocytes count (nu mber/volume)on 10-18-2021 RBC (Bld) [#/Vol] 3.61 10*6/uL 4.6-6.2 [facility]: Blood hemoglobin measurement (mass/volume)on 10-18-2021 Hemoglobin (Bld) [Mass/Vol] 11.3 g/dL 13.0-16.5 [facility] Work Phone: Blood lymphocytes/100 leukoc yteson 10-18-2021 Lymphocytes/100 WBC (Bld) 10.1 % 19-41 [facility] Work Phone: Blood monocytes/100 leukocyt eson 10-18-2021 Monocytes/100 WBC (Bld) 11.5 % 0-10 [facility] Work Phone: Blood platelet mean volumeon 10-18-2021 Platelet mean volume (Bld) [Entitic vol] 11.0 fL 6.2-12.0 [facility] Work Phone: Determination of erythrocyte mean corpuscular volume (MCV)on 10-18-2021 MCV (RBC) [Entitic vol] 88.1 fL 80-94 [facility] Work Phone: Hematocrit Auto (Bld) [Volum e fraction]on 10-18-2021 Hematocrit (Bld) [Volume fraction] 31.8 % 40-54 [facility] Work Phone: Laboratory - Chemistry and C hemistry - challengeon 10-18-2021 ALP [Catalytic activity/Vol] 94 U/L 45-117 [facility] Work Phone: ALT [Catalytic activity/Vol] 18 U/L 16-61 [facility] Work Phone: CO2 [Moles/Vol] 27.0 mmol/L 21.0-32.0 [facility] Work Phone: Globulin (S) [Mass/Vol] 3.0 g/dL 2.2-4.2 [facility] Work Phone: Natriuretic peptide B (Bld) [Mass/Vol] 304.2 pg/mL 0-100 [facility] Work Phone: Urea nitrogen/Creatinine [Mass ratio] 6.8 mg/mg 10-20 [facility] Work Phone: Laboratory - Hematology and Cell countson 10-18-2021 Erythrocyte distribution width (RBC) [Entitic vol] 40.5 fL 35.1-43.9 [facility] Work Phone: Erythrocyte distribution width (RBC) [Ratio] 12.4 % 11.6-14.6 [facility] Work Phone: Immature granulocytes/100 WBC (Bld) 0.500 % 0.0-0.9 [facility] Work Phone: Comment on above: IG% - Immature Granu locytes (promyelocytes, myelocytes and metamyelocytes) > 1% indicates that a LEFT SHIFT is Present. MCH (RBC) [Entitic mass] 31.3 pg 27.0-32.0 [facility] Work Phone: Nucleated RBC/100 WBC (Bld) [Ratio] 0 % 0-5 [facility] Work Phone: MCHC Auto (RBC) [Mass/Vol]on 10-18-2021 MCHC (RBC) [Mass/Vol] 35.5 g/dL 32-36 [facility] Work Phone: No Panel Informationon 10-18 Estimated GFR (MDRD) Amer 76 mL/min >60 [facility] Work Phone: Comment on above: GFR Calc Estimated GFR (MDRD) Non-Af Amer 63 mL/min >60 [facility] Work Phone: Comment on above: Non- GFR Calc Platelets bldon 10-18-2021 Platelets (Bld) [#/Vol] 184 10*3/uL 150-450 [facility] Work Phone: Serum or plasma albumin sita urement (mass/volume)on 10-18-2021 Albumin [Mass/Vol] 2.9 g/dL 3.2-5.0 [facility] Work Phone: Serum or plasma albumin/glob ulin mass ratioon 10-18-2021 Albumin/Globulin [Mass ratio] 1.0 {ratio} 0.9-2.4 [facility] Work Phone: Serum or plasma calcium sita urement (mass/volume)on 10-18-2021 Calcium [Mass/Vol] 8.1 mg/dL 8.5-10.1 [facility] Work Phone: Serum or plasma creatinine m easurement (mass/volume)on 10-18-2021 Creatinine [Mass/Vol] 1.17 mg/dL 0.70-1.30 [facility] Work Phone: Comment on above: The validity of the calculated GFR & GFRAA in patients over 70 years has not been determined. Clinical correlation is essential. Serum or plasma urea nitroge n measurement (mass/volume)on 10-18-2021 Urea nitrogen [Mass/Vol] 8 mg/dL 7-18 [facility] Work Phone: Thin prep Papanicolaou smear with manual screeningon 10-18-2021 Thin prep Papanicolaou smear with manual screening 16 U/L 15-37 [facility] Work Phone: Thin prep Papanicolaou smear with manual screening 7 5-15 [facility] Work Phone: Absolute lymphocyte counton 07-13-2021 Lymphocytes Auto (Unsp spec) [#/Vol] 1.15 10*3/uL 0.83-4.51 [facility] Work Phone: Basophil percentageon 2021 Basophils/100 WBC (Bld) 0.5 % 0-1 [facility] Work Phone: Bilirubin [Mass/Vol] 1.80 mg/dL 0.20-1.00 [facility] Work Phone: Comment on above: For patients on eltr ombopag therapy, use of Dimension [place] TBIL is not recommended. Chloride [Moles/Vol] 99 mmol/L 98-107 [facility] Work Phone: Eosinophils/100 WBC (Bld) 2.0 % 0-5 [facility] Work Phone: Glucose [Mass/Vol] 108 mg/dL 74-106 [facility] Work Phone: Comment on above: Fasting Glucose resu lt from 100 to 125 mg/dL suggests IMPAIRED HOMEOSTASIS per A.D.A. criteria. Neutrophils (Bld) [#/Vol] 5.9 10*3/uL 2.0-7.7 [facility] Work Phone: Neutrophils/100 WBC (Bld) 73.4 % 47-70 [facility] Work Phone: Potassium [Moles/Vol] 3.4 mmol/L 3.5-5.1 [facility] Work Phone: Protein [Mass/Vol] 6.2 g/dL 6.4-8.2 [facility] Work Phone: Sodium [Moles/Vol] 134 mmol/L 136-145 [facility] Work Phone: WBC (Bld) [#/Vol] 8.1 10*3/uL 4.4-11.0 [facility] Work Phone: Blood erythrocytes count (nu mber/volume)on 07-13-2021 RBC (Bld) [#/Vol] 4.12 10*6/uL 4.6-6.2 [facility] Work Phone: Blood hemoglobin measurement (mass/volume)on 07-13-2021 Hemoglobin (Bld) [Mass/Vol] 13.5 g/dL 13.0-16.5 [facility] Work Phone: Blood lymphocytes/100 leukoc yteson 07-13-2021 Lymphocytes/100 WBC (Bld) 14.2 % 19-41 [facility] Work Phone: Blood monocytes/100 leukocyt eson 07-13-2021 Monocytes/100 WBC (Bld) 8.9 % 0-10 [facility] Work Phone: Blood platelet mean volumeon 07-13-2021 Platelet mean volume (Bld) [Entitic vol] 11.5 fL 6.2-12.0 [facility] Work Phone: Determination of erythrocyte mean corpuscular volume (MCV)on 07-13-2021 MCV (RBC) [Entitic vol] 90.3 fL 80-94 [facility] Work Phone: Hematocrit Auto (Bld) [Volum e fraction]on 07-13-2021 Hematocrit (Bld) [Volume fraction] 37.2 % 40-54 [facility] Work Phone: Laboratory - Chemistry and C hemistry - challengeon 07-13-2021 ALP [Catalytic activity/Vol] 111 U/L 45-117 [facility] Work Phone: ALT [Catalytic activity/Vol] 19 U/L 16-61 [facility] Work Phone: CO2 [Moles/Vol] 28.0 mmol/L 21.0-32.0 [facility] Work Phone: Globulin (S) [Mass/Vol] 3.2 g/dL 2.2-4.2 [facility] Work Phone: Urea nitrogen/Creatinine [Mass ratio] 5.3 mg/mg 10-20 [facility] Work Phone: Laboratory - Hematology and Cell countson 07-13-2021 Erythrocyte distribution width (RBC) [Entitic vol] 42.7 fL 35.1-43.9 [facility] Work Phone: Erythrocyte distribution width (RBC) [Ratio] 13.1 % 11.6-14.6 [facility] Work Phone: Immature granulocytes/100 WBC (Bld) 1.000 % 0.0-0.9 [facility] Work Phone: Comment on above: IG% - Immature Granu locytes (promyelocytes, myelocytes and metamyelocytes) > 1% indicates that a LEFT SHIFT is Present. MCH (RBC) [Entitic mass] 32.8 pg 27.0-32.0 [facility] Work Phone: Nucleated RBC/100 WBC (Bld) [Ratio] 0 % 0-5 [facility] Work Phone: MCHC Auto (RBC) [Mass/Vol]on 07-13-2021 MCHC (RBC) [Mass/Vol] 36.3 g/dL 32-36 [facility] Work Phone: No Panel Informationon 07-13 Estimated GFR (MDRD) Amer 67 mL/min >60 [facility] Work Phone: Comment on above: GFR Calc Estimated GFR (MDRD) Non-Af Amer 55 mL/min >60 [facility] Work Phone: Comment on above: Non- GFR Calc Thyroid Stimulating Hormone (TSH) 3.19 uIU/mL 0.358-3.74 [facility] Work Phone: Vitamin D 25-Hydroxy 13.3 ng/mL [facility] Work Phone: Comment on above: Vitamin D 25(OH) Sta tus Range Deficiency <20 ng/mL (50nmol/L) Insufficiency 20 - 30 ng/mL (50 - 75 nmol/L) Sufficiency 30 - 100 ng/mL (75 - 250 nmol/L) Toxicity >100 ng/mL (>250 nmol/L) Platelets bldon 07-13-2021 Platelets (Bld) [#/Vol] 216 10*3/uL 150-450 [facility] Work Phone: Serum or plasma albumin sita urement (mass/volume)on 07-13-2021 Albumin [Mass/Vol] 3.0 g/dL 3.2-5.0 [facility] Work Phone: Serum or plasma albumin/glob ulin mass ratioon 07-13-2021 Albumin/Globulin [Mass ratio] 0.9 {ratio} 0.9-2.4 [facility] Work Phone: Serum or plasma calcium sita urement (mass/volume)on 07-13-2021 Calcium [Mass/Vol] 8.2 mg/dL 8.5-10.1 [facility] Work Phone: Serum or plasma creatinine m easurement (mass/volume)on 07-13-2021 Creatinine [Mass/Vol] 1.31 mg/dL 0.70-1.30 [facility] Work Phone: Comment on above: The validity of the calculated GFR & GFRAA in patients over 70 years has not been determined. Clinical correlation is essential. Serum or plasma urea nitroge n measurement (mass/volume)on 07-13-2021 Urea nitrogen [Mass/Vol] 7 mg/dL 7-18 [facility] Work Phone: Thin prep Papanicolaou smear with manual screeningon 07-13-2021 Thin prep Papanicolaou smear with manual screening 18 U/L 15-37 [facility] Work Phone: Thin prep Papanicolaou smear with manual screening 7 5-15 [facility] Work Phone: CNOVon 05-16-2018 CN Office Visit (UCWSTR) ASH[facility] PEREZ ([id number]) 1935 [facility] Ozarlzcera56/28/18 12:45 PM ANT BURGER [facility] During your visit today, we recorded the [...] vesicles with erythema surrounding in a left ~Y41tebwvvhhklzx.ASSES SMENT/PLAN:1. Herpes zoster without complications - ICD9: [...] Status:Closed by ANT BURGER MD on 05/16/18 Normal [facility] PROGRESSon 05-16-2018 Protein mass conc HNO ID: [id number]: Ant Hernandezervice: (none)Author Type: PhysicianType: Progress NotesFiled: [...] vesicles with erythema surrounding in a left ~[id number].ASSES SMENT/PLAN:1. Herpes zoster without complications - ICD9: [...] further pain control is needed.Ant Burger MD Normal [facility] Office Visiton 01-15-2017 Documentation of current medications (procedure) Done Invalid Interpretation Code [facility] Work Phone: [phone] Fall risk assessment No Invalid Interpretation Code [facility] Work Phone: [phone] Protein mass conc Done [facility] Work Phone: [phone] Office Visiton 05-25-2016 Dietary management education, guidance, and counseling (procedure) yes Invalid Interpretation Code [facility] Work Phone: [phone] Documentation of current medications (procedure) Done Invalid Interpretation Code [facility] Work Phone: [phone] Clinical Lists Update: Prelo receiving team member 11-16-2015 Left ventricular Ejection fraction 50 % Invalid Interpretation Code [facility] Work Phone: [phone] Lab Report: Vitamin D,25 Hyd roxyon 06-24-2015 vitamin D 25-hydroxy, serum 14.8 ng/mL Invalid Interpretation Code [facility] Work Phone: [phone] Vitamin D 25-OH 14.8 ng/mL [facility] Work Phone: [phone] Lab Report: CBC W/Diff, Auto matedon 06-23-2015 Basophils/100 leukocytes 0.2 % Invalid Interpretation Code 0-1 [facility] Work Phone: [phone] Basophils/100 WBC (Bld) 0.2 % 0-1 [facility] Work Phone: [phone] Eosinophils/100 leukocytes 0.6 % Invalid Interpretation Code 0-5 [facility] Work Phone: [phone] Eosinophils/100 WBC (Bld) 0.6 % 0-5 [facility] Work Phone: [phone] Erythrocyte distribution width Ratio (RBC) 41.6 fL 35.1-43.9 [facility] Work Phone: [phone] Erythrocyte distribution width Ratio (RBC) 13.6 % 11.6-14.6 [facility] Work Phone: [phone] Erythrocytes (RBC) 4.69 10*6/uL Invalid Interpretation Code 4.6-6.2 [facility] Work Phone: [phone] Hematocrit (HCT) 39.5 % Low 40-54 [facility] Work Phone: Hematocrit Volume Fraction (Bld) 39.5 % Low 40-54 [facility] Work Phone: [phone] Hemoglobin (HGB) 13.4 g/dL Invalid Interpretation Code 13.0-16.5 [facility] Work Phone: [phone] Immature granulocytes #/vol (Bld) 0.300 % 0.0-0.9 [facility] Work Phone: [phone] immature granulocytes, percentage of total cells, blood 0.300 % Invalid Interpretation Code 0.0-0.9 [facility] Work Phone: [phone] Lymphocytes 0.84 X10 3/UL Invalid Interpretation Code 0.83-4.51 [facility] Work Phone: [phone] Lymphocytes #/vol (Bld) 0.84 X10 3/UL 0.83-4.51 [facility] Work Phone: [phone] Lymphocytes/100 leukocytes 8.8 % Low 19-41 [facility] Work Phone: [phone] Lymphocytes/100 WBC (Bld) 8.8 % Low 19-41 [facility] Work Phone: [phone] MCH 28.6 pg Invalid Interpretation Code 27.0-32.0 [facility] Work Phone: [phone] MCH Entitic mass (RBC) 28.6 pg 27.0-32.0 [facility] Work Phone: [phone] MCHC 33.9 G/GL Invalid Interpretation Code 32-36 [facility] Work Phone: [phone] MCHC mass conc (RBC) 33.9 G/GL 32-[address] [facility] Work Phone: [phone] MCV 84.2 fL Invalid Interpretation Code 80-94 [facility] Work Phone: [phone] MCV Entitic volume (RBC) 84.2 fL 80-94 [facility] Work Phone: [phone] Monocytes/100 leukocytes 11.9 % High 0-10 [facility] Work Phone: Monocytes/100 WBC (Bld) 11.9 % High 0-10 [facility] Work Phone: [phone] neutrophil count, blood 7.5 X10 3/UL Invalid Interpretation Code 2.0-7.7 [facility] Work Phone: [phone] Neutrophils #/vol (Bld) 7.5 X10 3/UL 2.0-7.7 [facility] Work Phone: [phone] Neutrophils/100 leukocytes 78.2 % High 47-70 [facility] Work Phone: [phone] Neutrophils/100 WBC (Bld) 78.2 % High 47-70 [facility] Work Phone: [phone] Platelet mean volume Entitic volume (Bld) 10.6 fL 6.2-12.0 [facility] Work Phone: [phone] Platelets 329 10*3/mm3 Invalid Interpretation Code 150-450 [facility] Work Phone: [phone] Platelets #/vol (Bld) 329 10*3/mm3 150-450 [facility] Work Phone: [phone] PMV by Doc 10.6 fL Invalid Interpretation Code 6.2-12.0 [facility] Work Phone: [phone] RBC #/vol (Bld) 4.69 10*6/uL 4.6-6.2 [facility] Work Phone: [phone] RDW-CA 13.6 % Invalid Interpretation Code 11.6-14.6 [facility] Work Phone: [phone] red blood cell distribution width, size density 41.6 fL Invalid Interpretation Code 35.1-43.9 [facility] Work Phone: [phone] WBC #/vol (Bld) 9.6 10*3/uL 4.4-11.0 [facility] Work Phone: [phone] WBC (Leukocytes) 9.6 10*3/uL Invalid Interpretation Code 4.4-11.0 [facility] Work Phone: [phone] Lab Report: Thyroid Stim Hor marino (TSH)on 06-23-2015 Thyroid stimulating hormone (TSH) 1.72 u[iU]/mL Invalid Interpretation Code 0.358-3.74 [facility] Work Phone: [phone] Office Visiton 05-31-2015 General cardiovascular disease 10Y risk [#] Victor Manuel'Christian 18 % Invalid Interpretation Code [facility] Work Phone: [phone] Tobacco smoking status NHIS Never smoker [facility] Work Phone: [phone] Tobacco use CPHS Never smoker Invalid Interpretation Code [facility] Work Phone: [phone] Clinical Lists Update: Prelo receiving team member 10-02-2014 Alanine aminotransferase (ALT) 43 U/L Invalid Interpretation Code [facility] Work Phone: [phone] Albumin 2.3 g/dL Low [facility] Work Phone: [phone] Albumin/Globulin Ratio 0.7 {ratio} Low [facility] Work Phone: [phone] Alkaline phosphatase (ALP) 183 U/L High [facility] Work Phone: [phone] ALP enzyme act/vol (Bld) 183 U/L High [facility] Work Phone: [phone] Anion gap 6 mmol/L Invalid Interpretation Code [facility] Work Phone: [phone] Anion gap molar conc 6 mmol/L [facility] Work Phone: [phone] Aspartate aminotransferase (AST) 33 U/L Invalid Interpretation Code [facility] Work Phone: [phone] basophils as percent of blood leukocytes, manual count 0.1 % Invalid Interpretation Code [facility] Work Phone: [phone] Bilirubin (total) 1.80 mg/dL Invalid Interpretation Code [facility] Work Phone: [phone] BUN/Creatinine Ratio 9.0 mg/mg Low [facility] Work Phone: [phone] Calcium 7.3 mg/dL Low [facility] Work Phone: [phone] Chloride 99 mmol/L Invalid Interpretation Code [facility] Work Phone: [phone] CO2 29.0 mmol/L Invalid Interpretation Code [facility] Work Phone: [phone] CO2 ppres (BldV) 29.0 mmol/L [facility] Work Phone: [phone] Creatinine 1.0 mg/dL Invalid Interpretation Code [facility] Work Phone: [phone] eosinophils as percent of blood leukocytes, manual count 0.4 % Invalid Interpretation Code [facility] Work Phone: [phone] Globulin 3.5 g/dL Invalid Interpretation Code [facility] Work Phone: [phone] Globulin mass conc (S) 3.5 g/dL [facility] Work Phone: [phone] Glucose 182 mg/dL High [facility] Work Phone: [phone] Glucose mass conc 182 mg/dL High [facility] Work Phone: [phone] Magnesium 1.4 mg/dL Low [facility] Work Phone: [phone] neutrophils, band form as percent of blood leukocytes, manual count 86.9 % High [facility] Work Phone: [phone] Potassium 4.1 mmol/L Invalid Interpretation Code [facility] Work Phone: [phone] Protein 5.8 g/dL Low [facility] Work Phone: [phone] Sodium 134 mmol/L Low [facility] Work Phone: [phone] Urea nitrogen 9 mg/dL Invalid Interpretation Code [facility] Work Phone: [phone] Replaced Document: Sachi Mcgrawon 09-28-2014 BUN (urea nitrogen) Atrial 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 ABNORMAL Invalid Interpretation Code [facility] Work Phone: [phone] EKG QRS axis -52 deg [facility] Work Phone: [phone] GE use only - for [employer] import when terms are not otherwise specified 506 ms Invalid Interpretation Code [facility] Work Phone: [phone] Interpretation Atrial 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 ABNORMAL [facility] Work Phone: [phone] P [place] -140 deg [facility] Work Phone: [phone] P wave axis, electrocardiogram -140 deg Invalid Interpretation Code [facility] Work Phone: [phone] OR Interval 0 ms [facility] Work Phone: [phone] OR interval, electrocardiogram 0 ms Invalid Interpretation Code [facility] Work Phone: [phone] Pulse (Heart Rate) 65 /min Invalid Interpretation Code [facility] Work Phone: [phone] QRS axis, electrocardiogram -52 deg Invalid Interpretation Code [facility] Work Phone: [phone] QRS Duration 156 ms [facility] Work Phone: [phone] QRS duration, electrocardiogram 156 ms Invalid Interpretation Code [facility] Work Phone: [phone] QT Interval new path ms [facility] Work Phone: [phone] QT interval, electrocardiogram new path ms Invalid Interpretation Code [facility] Work Phone: [phone] QTc [place] 506 ms [facility] Work Phone: [phone] T [place] -1 deg [facility] Work Phone: [phone] T wave axis, electrocardiogram -1 deg Invalid Interpretation Code [facility] Work Phone: [phone] Lab Report: Lipid Profileon 05-28-2014 Cholesterol 120 mg/dL Invalid Interpretation Code 200 [facility] Work Phone: [phone] HDL Cholesterol 49 mg/dL Invalid Interpretation Code [facility] Work Phone: [phone] LDL Cholesterol 58 mg/dL Invalid Interpretation Code 0-130 [facility] Work Phone: [phone] Triglyceride 67 mg/dL Invalid Interpretation Code 0-199 [facility] Work Phone: [phone] very low density lipoproteins 13 mg/dL Invalid Interpretation Code 5-40 [facility] Work Phone: [phone] Lab Report: Liver Profileon 05-28-2014 Bilirubin (direct) 0.38 mg/dL Critically high 0.00-0.30 [facility] Work Phone: [phone] Globulin 3.2 g/dL Invalid Interpretation Code 2.7-4.2 [facility] Work Phone: [phone] Globulin mass conc (S) 3.2 g/dL 2.7-4.2 [facility] Work Phone: Lab Report: T4 Total, Thyrox inon 05-28-2014 Thyroxine (T4) 7.3 ug/dL Invalid Interpretation Code 4.5-12.1 [facility] Work Phone: Office Visiton 05-26-2014 Alcoholism counseling (procedure) yes Invalid Interpretation Code [facility] Work Phone: [phone] cardiac risk group C Invalid Interpretation Code [facility] Work Phone: [phone] Protein mass conc yes [facility] Work Phone: [phone] Vital Signs Date Time Vital Sign Value Performing Clinician Faci lity 07-03-2024 14:34-0500 Body height 177.[address] Bernard Nugent MD Work Phone: [facility] 07-03-2024 14:34-0500 Body mass index (BMI) [Ratio] 33.1 kg/m2 Dr. Bernard Nugent MD Work Phone: [facility] 07-03-2024 14:34-0500 Body temperature 98.3 [degF] Dr. Bernard Nugent MD Work Phone: [facility] 07-03-2024 14:34-0500 Body weight 104.[address] Bernard Nugent MD Work Phone: [facility] 07-03-2024 14:34-0500 Diastolic blood pressure 76 mm[Hg] Dr. Bernard Nugent MD Work Phone: [facility] 07-03-2024 14:34-0500 Heart rate 85 /min Dr. Bernard Nugent MD Work Phone: [facility] 07-03-2024 14:34-0500 Respiratory rate 16 /min Dr. Bernard Nugent MD Work Phone: [facility] 07-03-2024 14:34-0500 SaO2% (BldA) [Mass fraction] 98 % Dr. Bernard Nugent MD Work Phone: [facility] 07-03-2024 14:34-0500 Systolic blood pressure 180 mm[Hg] Dr. Bernard Nugent MD Work Phone: [facility] 03-31-2024 11:41-0500 Body mass index (BMI) [Ratio] 30.1 kg/m2 Dr. Bernard Nugent MD Work Phone: [facility] 03-31-2024 11:41-0500 Body weight 95.[address] Bernard Nugent MD Work Phone: [facility] 03-31-2024 11:41-0500 Diastolic blood pressure 76 mm[Hg] Dr. Bernard Nugent MD Work Phone: 9(684)468-166481 [place] [address] 03-31-2024 11:41-0500 Heart rate 59 /min Dr. Bernard Nugent MD Work Phone: 9(033)953-751981 [place] [address] 03-31-2024 11:41-0500 Respiratory rate 16 /min Dr. Bernard Nugent MD Work Phone: 3(053)558-604881 [place] [address] 03-31-2024 11:41-0500 Systolic blood pressure 153 mm[Hg] Dr. Bernard Nugent MD Work Phone: 6(546)520-405481 [place] [address] 07-11-2023 11:28-0500 Diastolic blood pressure 70 mm[Hg] Dr. Bernard Nugent Work Phone: 9(180)913-460381 [place] [address] 07-11-2023 11:28-0500 Systolic blood pressure 150 mm[Hg] Dr. Bernard Nugent Work Phone: 5(608)549-106674 [address] 07-11-2023 08:37-0500 Body height 177.[address] Bernard Nugent Work Phone: [facility] 07-11-2023 08:37-0500 Body mass index (BMI) [Ratio] 29 kg/m2 Dr. Bernard Nugent Work Phone: 3(262)640-507781 [place] [address] 07-11-2023 08:37-0500 Body weight 91.[address] Bernard Nugent Work Phone: 1(989)685-230281 [place] [address] 07-11-2023 08:37-0500 Heart rate 57 /min Dr. Bernard Nugent Work Phone: 6(549)700-022981 [place] [address] 07-11-2023 08:37-0500 Respiratory rate 20 /min Dr. Bernard Nugent Work Phone: [facility] 07-11-2023 08:37-0500 SaO2% (BldA) [Mass fraction] 99 % Dr. Bernard Nugent Work Phone: [facility] 07-07-2023 16:43-0500 Body temperature 97 [degF] Dr. Bernard Nugent Work Phone: [facility] 07-07-2023 16:43-0500 Diastolic blood pressure 70 mm[Hg] Dr. Bernard Nugent Work Phone: [facility] 07-07-2023 16:43-0500 Heart rate 82 /min Dr. Bernard Nugent Work Phone: [facility] 07-07-2023 16:43-0500 Respiratory rate 18 /min Dr. Bernard Nugent Work Phone: [facility] 07-07-2023 16:43-0500 SaO2% (BldA) [Mass fraction] 96 % Dr. Bernard Nugent Work Phone: [facility] 07-07-2023 16:43-0500 Systolic blood pressure 160 mm[Hg] Dr. Bernard Nugent Work Phone: [facility] 07-07-2023 11:16-0500 Body height 177.[address] Bernard Nugent Work Phone: [facility] 07-07-2023 11:16-0500 Body mass index (BMI) [Ratio] 29.8 kg/m2 Dr. Bernard Nugent Work Phone: [facility] 07-07-2023 11:16-0500 Body weight 94.[address] Bernard Nugent Work Phone: [facility] 05-26-2023 17:48-0500 Body height 177.[address] Bernard Nugent Work Phone: [facility] 05-26-2023 17:48-0500 Body mass index (BMI) [Ratio] 30.2 kg/m2 Dr. Bernard Nugent Work Phone: 3(877)099-397181 [place] [address] 05-26-2023 17:48-0500 Body temperature 96.6 [degF] Dr. Bernard Nugent Work Phone: 7(244)563-934612 [place] [address] 05-26-2023 17:48-0500 Body weight 95.[address] Bernard Nugent Work Phone: 7(693)922-466412 [place] [address] 05-26-2023 17:48-0500 Diastolic blood pressure 92 mm[Hg] Dr. Bernard Nugent Work Phone: 0(202)673-615312 [place] [address] 05-26-2023 17:48-0500 Heart rate 59 /min Dr. Bernard Nugent Work Phone: 9(624)603-582912 [place] [address] 05-26-2023 17:48-0500 Respiratory rate 16 /min Dr. Bernard Nugent Work Phone: 3(909)179-680712 [place] [address] 05-26-2023 17:48-0500 SaO2% (BldA) [Mass fraction] 99 % Dr. Bernard Nugent Work Phone: 7(851)444-897512 [place] [address] 05-26-2023 17:48-0500 Systolic blood pressure 181 mm[Hg] Dr. Bernard Nugent Work Phone: 2(795)488-154612 [place] [address] 03-24-2023 12:31-0500 Diastolic blood pressure 70 mm[Hg] Dr. Bernard Nugent Work Phone: 3(229)532-723512 [place] [address] 03-24-2023 12:31-0500 Heart rate 76 /min Dr. Bernard Nugent Work Phone: 7(111)888-311112 [place] [address] 03-24-2023 12:31-0500 Respiratory rate 15 /min Dr. Bernard Nugent Work Phone: 0(489)881-794112 [place] [address] 03-24-2023 12:31-0500 SaO2% (BldA) [Mass fraction] 97 % Dr. Bernard Nugent Work Phone: 9(161)072-886212 [place] [address] 03-24-2023 12:31-0500 Systolic blood pressure 190 mm[Hg] Dr. Bernard Nugent Work Phone: 4(243)791-397212 [place] [address] 03-24-2023 09:50-0500 Body height 177.[address] Bernard Nugent Work Phone: 4(004)306-110812 [place] [address] 03-24-2023 09:50-0500 Body mass index (BMI) [Ratio] 28.3 kg/m2 Dr. Bernard Nugent Work Phone: 0(726)197-290012 [place] [address] 03-24-2023 09:50-0500 Body temperature 98 [degF] Dr. Bernard Nugent Work Phone: 3(857)053-097212 [place] [address] 03-24-2023 09:50-0500 Body weight 89.[address] Bernard Nugent Work Phone: 7(694)814-903112 [place] [address] 02-01-2023 15:07-0400 Body height 177.[address] Bernard Nugent Work Phone: 8(723)767-102712 [place] [address] 02-01-2023 15:07-0400 Body mass index (BMI) [Ratio] 28.4 kg/m2 Dr. Bernard Nugent Work Phone: 0(437)070-675812 [place] [address] 02-01-2023 15:07-0400 Body weight 89.[address] Bernard Nugent Work Phone: 6(152)227-193712 [place] [address] 02-01-2023 15:07-0400 Diastolic blood pressure 81 mm[Hg] Dr. Bernard Nugent Work Phone: 5(586)807-541412 [place] [address] 02-01-2023 15:07-0400 Heart rate 56 /min Dr. Bernard Nugent Work Phone: 5(006)427-957412 [place] [address] 02-01-2023 15:07-0400 Respiratory rate 16 /min Dr. Bernard Nugent Work Phone: 1(698)736-442312 [place] [address] 02-01-2023 15:07-0400 Systolic blood pressure 135 mm[Hg] Dr. Bernard Nugent Work Phone: 2(415)213-372412 [place] [address] 09-25-2022 08:12-0400 Body temperature 97.6 [degF] Dr. Bernard Nugent Work Phone: 8(576)007-851712 [place] [address] 09-25-2022 08:12-0400 Diastolic blood pressure 78 mm[Hg] Dr. Bernard Nugent Work Phone: [facility] 09-25-2022 08:12-0400 Heart rate 55 /min Dr. Bernard Nugent Work Phone: [facility] 09-25-2022 08:12-0400 Respiratory rate 15 /min Dr. Bernard Nugent Work Phone: 0(926)677-532974 [address] 09-25-2022 08:12-0400 SaO2% (BldA) [Mass fraction] 96 % Dr. Bernard Nugent Work Phone: 9(324)544-303381 [place] [address] 09-25-2022 08:12-0400 Systolic blood pressure 168 mm[Hg] Dr. Bernard Nugent Work Phone: 1(325)628-323374 [address] 09-24-2022 11:20-0400 Body height 177.[address] Bernard Nugent Work Phone: 5(736)400-246512 [place] [address] 09-24-2022 11:20-0400 Body weight 92.[address] Bernard Nugent Work Phone: 4(824)456-441912 [address] [place] [address] 09-21-2022 10:16-0400 Body mass index (BMI) [Ratio] 29.1 kg/m2 Dr. Bernard Nugent Work Phone: [phone] [address] 06-19-2022 10:54-0500 Body height 177.[address] Bernard Nugent Work Phone: [phone] [place] [address] 06-19-2022 10:54-0500 Body mass index (BMI) [Ratio] 29.1 kg/m2 Dr. Bernard Nugent Work Phone: [phone] [address] 06-19-2022 10:54-0500 Body weight 92.[address] Bernard Nugent Work Phone: [phone] [place] [address] 06-19-2022 10:54-0500 Diastolic blood pressure 82 mm[Hg] Dr. Bernard Nugent Work Phone: 8([phone] [place] [address] 06-19-2022 10:54-0500 Diastolic blood pressure 70 mm[Hg] Dr. Bernard Nugent Work Phone: [facility] 06-19-2022 10:54-0500 Heart rate 50 /min Dr. Bernard Nugent Work Phone: [facility] 06-19-2022 10:54-0500 Respiratory rate 24 /min Dr. Bernard Nugent Work Phone: [facility] 06-19-2022 10:54-0500 Systolic blood pressure 144 mm[Hg] Dr. Bernard Nugent Work Phone: [facility] 06-19-2022 10:54-0500 Systolic blood pressure 160 mm[Hg] Dr. Bernard Nugent Work Phone: [facility] 06-19-2022 10:54-0500 Body mass index (BMI) [Ratio] 28.5 kg/m2 Dr. Bernard Nugent Work Phone: [facility] 06-19-2022 10:54-0500 Body weight 90.[address] Bernard Nugent Work Phone: [facility] 06-19-2022 10:54-0500 Heart rate 72 /min Dr. Bernard Nugent Work Phone: [facility] 06-19-2022 10:54-0500 Respiratory rate 18 /min Dr. Bernard Nugent Work Phone: [facility] 06-19-2022 10:54-0500 SaO2% (BldA) [Mass fraction] 99 % Dr. Bernard Nugent Work Phone: [facility] 02-28-2022 13:08-0400 Body temperature 97.2 [degF] Dr. Bernard Nugent Work Phone: [facility] Work Phone: 02-28-2022 13:08-0400 Body weight 90.[address] Bernard Nugent Work Phone: [facility] Work Phone: 02-28-2022 13:08-0400 Diastolic blood pressure 84 mm[Hg] Dr. Bernard Nugent Work Phone: [facility] Work Phone: 02-28-2022 13:08-0400 Heart rate 76 /min Dr. Bernard Nugent Work Phone: [facility] Work Phone: 02-28-2022 13:08-0400 Respiratory rate 18 /min Dr. Bernard Nugent Work Phone: [facility] Work Phone: 02-28-2022 13:08-0400 Systolic blood pressure 168 mm[Hg] Dr. Bernard Nugent Work Phone: [facility] Work Phone: 02-04-2022 23:53-0400 Diastolic blood pressure 73 mm[Hg] Dr. Bernard Nugent Work Phone: [facility] Work Phone: 02-04-2022 23:53-0400 Heart rate 48 /min Dr. Bernard Nugent Work Phone: [facility] Work Phone: 02-04-2022 23:53-0400 Respiratory rate 19 /min Dr. Bernard Nugent Work Phone: [facility] Work Phone: 02-04-2022 23:53-0400 SaO2% (BldA) [Mass fraction] 97 % Dr. Bernard Nugent Work Phone: [facility] Work Phone: 02-04-2022 23:53-0400 Systolic blood pressure 183 mm[Hg] Dr. Bernard Nugent Work Phone: [facility] Work Phone: 02-04-2022 21:39-0400 Body height 177.[address] Bernard Nugent Work Phone: [facility] Work Phone: 02-04-2022 21:39-0400 Body mass index (BMI) [Ratio] 29.5 kg/m2 Dr. Bernard Nugent Work Phone: [facility] Work Phone: 02-04-2022 21:39-0400 Body temperature 97.3 [degF] Dr. Bernard Nugent Work Phone: [facility] Work Phone: 02-04-2022 21:39-0400 Body weight 93.[address] Bernard Nugent Work Phone: [facility] Work Phone: 01-24-2022 13:06-0400 Body height 177.[address] Bernard Nugent Work Phone: [facility] Work Phone: 01-24-2022 13:02-0400 Diastolic blood pressure 72 mm[Hg] Dr. Bernard Nugent Work Phone: [facility] Work Phone: 01-24-2022 13:02-0400 Systolic blood pressure 142 mm[Hg] Dr. Bernard Nugent Work Phone: [facility] Work Phone: 12-22-2021 15:00-0400 Heart rate 59 /min Dr. Bernard Nugent Work Phone: [facility] Work Phone: 12-22-2021 14:21-0400 Body temperature 97.9 [degF] Dr. Bernard Nugent Work Phone: [facility] Work Phone: 12-22-2021 14:21-0400 Diastolic blood pressure 86 mm[Hg] Dr. Bernard Nugent Work Phone: [facility] Work Phone: 12-22-2021 14:21-0400 Respiratory rate 16 /min Dr. Bernard Nugent Work Phone: [facility] Work Phone: 12-22-2021 14:21-0400 SaO2% (BldA) [Mass fraction] 98 % Dr. Bernard Nugent Work Phone: [facility] Work Phone: 12-22-2021 14:21-0400 Systolic blood pressure 144 mm[Hg] Dr. Bernard Nugent Work Phone: [facility] Work Phone: 12-22-2021 06:00-0400 Body weight 92.[address] Bernard Nugent Work Phone: [facility] Work Phone: 12-21-2021 17:04-0400 Body height 177.[address] Bernard Nugent Work Phone: [facility] Work Phone: 12-21-2021 17:04-0400 Body mass index (BMI) [Ratio] 29.7 kg/m2 Dr. Bernard Nugent Work Phone: [facility] Work Phone: 12-21-2021 17:04-0400 Body weight 93.[address] Bernard Nugent Work Phone: [facility] Work Phone: 12-21-2021 16:41-0400 Body temperature 98.1 [degF] Dr. Bernard Nugent Work Phone: [facility] Work Phone: 12-21-2021 16:41-0400 Diastolic blood pressure 98 mm[Hg] Dr. Bernard Nugent Work Phone: [facility] Work Phone: 12-21-2021 16:41-0400 Heart rate 37 /min Dr. Bernard Nugent Work Phone: [facility] Work Phone: 12-21-2021 16:41-0400 Respiratory rate 18 /min Dr. Bernard Nugent Work Phone: [facility] Work Phone: 12-21-2021 16:41-0400 SaO2% (BldA) [Mass fraction] 96 % Dr. Bernard Nugent Work Phone: [facility] Work Phone: 12-21-2021 16:41-0400 Systolic blood pressure 176 mm[Hg] Dr. Bernard Nugent Work Phone: [facility] Work Phone: 12-19-2021 11:46-0400 Diastolic blood pressure 101 mm[Hg] Dr. eBrnard Nugent Work Phone: [facility] Work Phone: 12-19-2021 11:46-0400 Heart rate 101 /min Dr. Bernard Nugent Work Phone: [facility] Work Phone: 12-19-2021 11:46-0400 Respiratory rate 16 /min Dr. Bernard Nugent Work Phone: [facility] Work Phone: 12-19-2021 11:46-0400 SaO2% (BldA) [Mass fraction] 98 % Dr. Bernard Nugent Work Phone: [facility] Work Phone: 12-19-2021 11:46-0400 Systolic blood pressure 153 mm[Hg] Dr. Bernard Nugent Work Phone: [facility] Work Phone: 12-19-2021 10:20-0400 Body temperature 97 [degF] Dr. Bernard Nugent Work Phone: [facility] Work Phone: 12-19-2021 10:04-0400 Body height 177.[address] Bernard Nugent Work Phone: [facility] Work Phone: 12-19-2021 10:04-0400 Body mass index (BMI) [Ratio] 30.1 kg/m2 Dr. Bernard Nugent Work Phone: [facility] Work Phone: 12-19-2021 10:04-0400 Body weight 95.[address] Bernard Nugent Work Phone: [facility] Work Phone: 12-07-2021 10:01-0400 Diastolic blood pressure 70 mm[Hg] Dr. Bernard Nugent Work Phone: [facility] Work Phone: 12-07-2021 10:01-0400 Systolic blood pressure 144 mm[Hg] Dr. Bernard Nugent Work Phone: [facility] Work Phone: 12-07-2021 10:00-0400 Body mass index (BMI) [Ratio] 30.1 kg/m2 Dr. Bernard Nugent Work Phone: [facility] Work Phone: 12-07-2021 10:00-0400 Body weight 95.[address] Bernard Nugent Work Phone: [facility] Work Phone: 12-07-2021 10:00-0400 Heart rate 52 /min Dr. Bernard Nugent Work Phone: [facility] Work Phone: 12-07-2021 10:00-0400 Respiratory rate 18 /min Dr. Bernard Nugent Work Phone: [facility] Work Phone: 12-07-2021 10:00-0400 SaO2% (BldA) [Mass fraction] 97 % Dr. Bernard Nugent Work Phone: [facility] Work Phone: 10-26-2021 13:34-0400 Body temperature 97.4 [degF] Dr. Bernard Nugent Work Phone: [facility] Work Phone: 10-26-2021 13:34-0400 Diastolic blood pressure 64 mm[Hg] Dr. Bernard Nugent Work Phone: [facility] Work Phone: 10-26-2021 13:34-0400 Heart rate 63 /min Dr. Bernard Nugent Work Phone: [facility] Work Phone: 10-26-2021 13:34-0400 Respiratory rate 16 /min Dr. Bernard Nugent Work Phone: [facility] Work Phone: 10-26-2021 13:34-0400 SaO2% (BldA) [Mass fraction] 95 % Dr. Bernard Nugent Work Phone: [facility] Work Phone: 10-26-2021 13:34-0400 Systolic blood pressure 143 mm[Hg] Dr. Bernard Nugent Work Phone: [facility] Work Phone: 10-26-2021 00:01-0400 Body height 177.[address] Bernard Nugent Work Phone: [facility] Work Phone: 10-26-2021 00:01-0400 Body mass index (BMI) [Ratio] 29.7 kg/m2 Dr. Bernard Nugent Work Phone: [facility] Work Phone: 10-26-2021 00:01-0400 Body weight 94.[address] Bernard Nugent Work Phone: [facility] Work Phone: 10-25-2021 23:03-0400 Body temperature 98 [degF] Dr. Bernard Nugent Work Phone: [facility] Work Phone: 10-25-2021 23:03-0400 Diastolic blood pressure 68 mm[Hg] Dr. Bernard Nugent Work Phone: [facility] Work Phone: 10-25-2021 23:03-0400 Heart rate 61 /min Dr. Bernard Nugent Work Phone: [facility] Work Phone: 10-25-2021 23:03-0400 Respiratory rate 18 /min Dr. Bernard Nugent Work Phone: [facility] Work Phone: 10-25-2021 23:03-0400 SaO2% (BldA) [Mass fraction] 98 % Dr. Bernard Nugent Work Phone: [facility] Work Phone: 10-25-2021 23:03-0400 Systolic blood pressure 152 mm[Hg] Dr. Bernard Nugent Work Phone: [facility] Work Phone: 10-25-2021 20:34-0400 Body height 175.[address] Bernard Nugent Work Phone: [facility] Work Phone: 10-25-2021 20:34-0400 Body mass index (BMI) [Ratio] 31.9 kg/m2 Dr. Bernard Nugent Work Phone: [facility] Work Phone: 10-25-2021 20:34-0400 Body weight 98.[address] Bernard Nugent Work Phone: [facility] Work Phone: 01-15-2017 14:04-0400 BMI (Body Mass Index) 30.8 kg/m2 [facility] Work Phone: 01-15-2017 14:04-0400 BP Diastolic 60 mm[Hg] [facility] Work Phone: 01-15-2017 14:04-0400 BP Systolic 120 mm[Hg] [facility] Work Phone: 01-15-2017 14:04-0400 Height 176.53 cm [facility] Work Phone: 01-15-2017 14:04-0400 Pulse (Heart Rate) 56 /min Chelsy Smith [facility] Work Phone: 01-15-2017 14:04-0400 Respiratory Rate 20 /min Chelsy Reis [facility] Work Phone: 01-15-2017 14:04-0400 Weight 95.98 kg Chelsy Reis [facility] Work Phone: 05-25-2016 08:04-0500 BMI (Body Mass Index) 30.27 kg/m2 Annalisa [facility] Work Phone: 05-25-2016 08:04-0500 BP Diastolic 70 mm[Hg] Annalisa Jones RN [facility] Work Phone: 05-25-2016 08:04-0500 BP Systolic 152 mm[Hg] Annalisa Jones RN [facility] Work Phone: 05-25-2016 08:04-0500 BSA (Body Surface Area) 2.11 m2 Annalisa Jones RN [facility] Work Phone: 05-25-2016 08:04-0500 Height 176.53 cm Annalisa Joens RN [facility] Work Phone: 05-25-2016 08:04-0500 Pulse (Heart Rate) 70 /min Annalisa Jones RN [facility] Work Phone: 05-25-2016 08:04-0500 Respiratory Rate 18 /min Annalisa Jones RN [facility] Work Phone: 05-25-2016 08:04-0500 Weight 94.35 kg Annalisa Jones RN [facility] Work Phone: 09-28-2014 16:19-0400 Heart rate 65 /min Chelsy Chato [facility] Work Phone: Encounters Encounter Date Encounter Type Care Provider Facility Start: 11-14-2024 ambulatory [facility] Facility:[facility] Start: 11-11-2024 Emergency department patient visit [facility] Facility:[facility] Start: 10-30-2024 End: 10-30-[address] Bernard Nugent MD Work Phone: [facility] Work Phone: Start: 10-30-2024 End: 10-30-[address] Bernard Nugent MD -Radiology [facility] Work Phone: Start: 10-30-2024 End: 10-30-2024 ambulatory Bernard Alexys Raffi Facility:[facility] Start: 10-22-2024 End: 10-22-[address] Bernard Nugent MD Work Phone: [facility] Work Phone: Start: 10-22-2024 End: 10-22-[address] Bernard Nuegnt MD -Laboratory Work Phone: Start: 10-22-2024 End: 10-22-2024 ambulatory Bernard Alexys Raffi Facility:[facility] Start: 10-19-2024 ambulatory Bernard Chi Raffi Facility:[facility] Start: 08-06-2024 End: 08-06-2024 ambulatory Bernard Chi Raffi Facility:[facility] Start: 08-06-2024 End: 08-06-[address] Rodolfo Tobias MD -[facility] Work Phone: Start: 07-27-2024 End: 07-27-[address] Bernard Nugent MD Work Phone: [facility] Work Phone: Start: 07-27-2024 End: 07-27-[address] Bernard Nugent MD -Laboratory Work Phone: Start: 07-27-2024 End: 07-27-2024 ambulatory Bernard Alexys Raffi Facility:[facility] Start: 07-09-2024 End: 07-09-[address] Bernard Nugent MD Work Phone: [facility] Work Phone: Start: 07-09-2024 End: 07-09-[address] Bernard Nugent MD -Laboratory, Specimen Work Phone: Start: 07-09-2024 End: 07-09-2024 ambulatory Bernard Chi Raffi Facility:[facility] Start: 07-03-2024 End: 07-03-2024 Emergency department patient visit Dr. Salvatore Hightower DO -Emergency Department Work Phone: Start: 05-07-2024 End: 05-07-2024 ambulatory Bernard Chi Raffi Facility:[facility] Start: 05-07-2024 End: 05-07-[address] Rodolfo Tobias MD -[facility] Work Phone: Start: 04-27-2024 End: 04-27-[address] Bernard Nugent MD -Laboratory, Phy Office 3rd Der Start: 04-27-2024 End: 04-27-2024 ambulatory Bernard Chi Raffi Facility:[facility] Start: 04-22-2024 End: 04-22-[address] Bernard Nugent MD -Laboratory Work Phone: Start: 04-22-2024 End: 04-22-2024 ambulatory Bernard Chi Raffi Facility:[facility] Start: 03-31-2024 End: 03-31-[address] Rodolfo Tobias MD -[facility] Work Phone: Start: 03-31-2024 End: 03-31-2024 ambulatory Bernard Chi Raffi Facility:[facility] Start: 03-09-2024 End: 03-09-2024 ambulatory Bernard Chi Raffi Facility:[facility] Start: 03-04-2024 ambulatory Bernard Chi Raffi Facility:[facility] Start: 02-28-2024 End: 02-28-2024 ambulatory Bernard Chi Raffi Facility:[facility] Start: 02-20-2024 End: 02-21-2024 ambulatory Bernard Chi Raffi Facility:[facility] Start: 02-20-2024 End: 02-20-2024 ambulatory Bernard Chi Raffi Facility:[facility] Start: 02-05-2024 End: 02-05-2024 ambulatory Bernard Chi Raffi Facility:[facility] Start: 01-24-2024 End: 01-24-2024 ambulatory Bernard Nugent Facility:[facility] Start: 07-26-2023 Non-patient / Non-visit Dr. Vick Nugent Work Phone: [facility] Start: 07-26-2023 End: 07-26-[address] Bernard Nugent Work Phone: [facility] Work Phone: Start: 07-26-2023 End: 07-26-[address] [facility] Work Phone: Start: 07-24-2023 End: 07-24-[address] Bernard Nugent Work Phone: [facility] Work Phone: Start: 07-24-2023 End: 07-24-[address] Bernard Nugent Work Phone: [facility]-Laboratory, Phy Office 3rd [facility] Start: 07-11-2023 End: 07-11-[address] Bernard Nugent Work Phone: [facility] Work Phone: Start: 07-07-2023 End: 07-07-2023 Emergency department patient visit Dr. [facility] Nugent [facility] Work Phone: Start: 07-01-2023 End: 07-01-[address] Bernard Nugent Work Phone: [facility] Work Phone: Start: 05-26-2023 End: 05-26-2023 Emergency department patient visit Dr. Bernard Nugent [facility] Work [facility]: Start: 05-17-2023 End: 05-17-[address] Bernard Nugent Work Phone: [facility] Work Phone: Start: 05-08-2023 End: 05-08-[address] Bernard Nugent Work Phone: [facility] Work Phone: Start: 03-25-2023 End: 03-25-[address] Bernard Nugent Work Phone: [facility] Work Phone: Start: 03-25-2023 End: 03-25-[address] Bernard Nugent Work Phone: [facility] Office 3rd Flr Start: 03-24-2023 End: 03-24-2023 Emergency department patient visit Dr. Bernard Nugent Work Phone: [facility]-Emergency Department Work Phone: Start: 02-07-2023 End: 02-07-[address] Bernard Nugent Work Phone: [facility] Work Phone: Start: 02-07-2023 End: 02-07-[address] Bernard Nugent Work Phone: [facility] Office 3rd Flr Start: 02-06-2023 End: 02-06-[address] Bernard Nugent Work Phone: [facility] Work Phone: Start: 02-01-2023 End: 02-01-[address] Bernard Nugent Work Phone: [facility] Work Phone: Start: 01-22-2023 End: 01-22-[address] Bernard Nugent Work Phone: [facility] Work Phone: Start: 01-22-2023 End: 01-22-[address] [facility] Start: 11-14-2022 End: 11-14-[address] Bernard Nugent Work Phone: [facility] Work Phone: Start: 11-06-2022 End: 11-06-[address] Bernard Nugent Work Phone: [facility] Work Phone: Start: 11-06-2022 End: 11-06-[address] [facility] Start: 10-30-2022 End: 10-30-[address] Bernard Nugent Work Phone: [facility] Start: 10-22-2022 End: 10-22-[address] [facility] Start: 10-02-2022 End: 10-02-[address] Bernard Nugent Work Phone: [facility] Start: 09-25-2022 End: 09-25-[address] Bernard Nugent Work Phone: [facility] Start: 09-25-2022 Non-patient / Non-visit Dr. Vick Nugent Work Phone: [facility] Start: 09-24-2022 End: 09-25-2022 Evaluation and management of inpatient Dr. Bernard Nugent Work Phone: [facility]-Progressive Care Unit Start: 09-24-2022 End: 09-25-[address] Bernard Nugent Work Phone: [facility] Work Phone: Start: 09-18-2022 End: 09-18-[address] Bernard Nugent Work Phone: [facility] Start: 09-04-2022 End: 09-04-[address] Bernard Nugent Work Phone: [facility] Work Phone: Start: 09-04-2022 End: 09-04-[address] [facility]ug[facility] Office 3rd Flr Start: 08-09-2022 End: 08-09-[address] Bernard Nugent Work Phone: [facility] Work Phone: Start: 08-09-2022 End: 08-09-[address] Bernard Nugent Work Phone: [facility]-Pulmonary Services/Neurology Start: 08-08-2022 End: 08-08-[address] Bernard Nugent Work Phone: [facility] Work Phone: Start: 08-08-2022 End: 08-08-[address] Bernard Nugent Work Phone: [facility] Office 3rd Flr Start: 07-20-2022 End: 07-20-[address] Bernard Nugent Work Phone: [facility] Work Phone: Start: 07-20-2022 End: 07-20-[address] [facility] Start: 06-19-2022 End: 06-19-[address] Bernard Nugent Work Phone: [facility] Start: 03-27-2022 End: 03-27-[address] Bernard Nugent Work Phone: [facility] Work Phone: Start: 03-27-2022 End: 03-27-[address] Bernard Nugent Work Phone: [facility]-Pulmonary Services/Neurology Start: 03-13-2022 Non-patient / Non-visit Dr. Vick Nugent Work Phone: [facility] Start: 03-13-2022 End: 03-13-[address] Bernard Nugent Work Phone: [facility] Work Phone: Start: 03-13-2022 End: 03-13-[address] Bernard Nugent Work Phone: [facility]-Cardiovascular Services Start: 02-28-2022 End: 02-28-[address] Bernard Nugent Work Phone: [facility]-Laboratory, Specimen Start: 02-28-2022 End: 02-28-[address] Bernard Nugent Work Phone: [facility] Start: 02-26-2022 End: 02-26-[address] Bernard Nugent Work Phone: [facility]-Laboratory, Phy Office 3rd Flr Start: 02-04-2022 End: 02-05-2022 Emergency department patient visit Dr. Bernard Nugent Work Phone: [facility]-Emergency Department Start: 02-01-2022 End: 02-01-[address] Bernard Nugent Work Phone: [facility] Work Phone: Start: 02-01-2022 End: 02-01-[address] Bernard Nugent Work Phone: [facility]-Pulmonary Services/Neurology Start: 01-31-2022 End: 01-31-[address] Bernard Nugent Work Phone: [facility] Work Phone: Start: 01-31-2022 End: 01-31-[address] Bernard Nugent Work Phone: [facility]-Outpatient Breast Imaging Start: 01-24-2022 End: 01-24-[address] Bernard Nugent Work Phone: [facility] Start: 01-18-2022 End: 01-18-[address] Bernard Nugent Work Phone: [facility] Work Phone: Start: 01-18-2022 End: 01-18-[address] Bernard Nugent Work Phone: [facility]-Laboratory, Phy Office 3rd Flr Start: 12-27-2021 End: 12-27-[address] Bernard Nugent Work Phone: [facility]-Laboratory Start: 12-22-2021 Non-patient / Non-visit Dr. Vick Nugent Work Phone: [facility] Start: 12-22-2021 Non-patient / Non-visit Dr. Vick Nugent Work Phone: [facility] Start: 12-21-2021 Non-patient / Non-visit Dr. Vick Nugent Work Phone: [facility] Start: 12-21-2021 End: 12-22-2021 Evaluation and management of inpatient Dr. Bernard Nugent Work Phone: [facility]-Progressive Care Unit Start: 12-19-2021 End: 12-19-2021 Emergency department patient visit Dr. Bernard Nugent Work Phone: [facility]-Emergency Department Start: 12-07-2021 End: 12-07-[address] Bernard Nugent Work Phone: [facility] Start: 11-02-2021 End: 11-02-[address] Bernard Nugent Work Phone: [facility] y Office 3rd Flr Start: 10-26-2021 Non-patient / Non-visit Dr. Vick Nugent Work Phone: [facility] Start: 10-25-2021 Non-patient / Non-visit Dr. Vick Nugent Work Phone: [facility] Start: 10-25-2021 End: 10-26-2021 Evaluation and management of inpatient Dr. Bernard Nugent Work Phone: [facility] Start: 10-25-2021 Non-patient / Non-visit Dr. Vick Nugent Work Phone: [facility] Start: 10-18-2021 End: 10-18-[address] Bernard Nugent Work Phone: [facility] Office 3rd Flr Start: 07-13-2021 End: 07-13-[address] [facility] Start: 05-16-2018 End: 05-16-2018 Patient encounter procedure [facility] Procedures Date Procedure Procedure Detail Performing Clinician Start: 10-30-2024 Serum inorganic phos phate measurement Dr. Bernard Nugent MD Work Phone: Start: 10-30-2024 Plain X-ray abdomen Dr. Bernard Nugent MD Work Phone: Start: 10-22-2024 Vitamin D, 25-hydrox y measurement [...] Nugent Work Phone: Start: 01-31-2022 Bilateral mammography Shakira Nugent Work Phone: Start: 01-31-2022 Ultrasonography of [...] cervical spine wi thout contrast Dr. Bernard Nuegnt Work Phone: Start: 10-25-2021 CT of head without contrast Dr. Bernard Nugent Work Phone: Start: 01-15-2017 End: 01-15-2017 KRYSTLE Tobias MD Start: 01-15-2017 End: 01-15-2017 Follow [...] [AGGREGATE] Cordelia Magdaleno Start: 11-09-2014 End: 11-08-2015 BACKFILLER Muriel Bonilla PA-C Work Phone: Start: 11-09-2014 [...] Rodolfo Tobias MD Start: 09-28-2014 End: 09-28-2014 JUAN CARLOS Tobias MD Start: 09-28-2014 End: 09-29-2014 Pedal [...] Panel Cordelia Magdaleno Start: 05-26-2014 End: 05-26-2014 BACKFILLER Rodolfo Tobias MD Start: 05-26-2014 End: 11-03-2014 [...] Date Care Activity Detail Author Start: 07-03-2024 [facility] Start: 07-03-2024 Smpl repair scalp/neck/ax/genit/trunk 2.6-7.5cm RPR S/N/AX/GEN/TRNK2.6-7.5CM [facility] Start: 07-07-2023 [facility] Start: 07-07-2023 [facility] Start: 05-26-2023 [facility] Start: 09-25-2022 Patient discharge [facility] Start: 09-24-2022 Following clinical pathway protocol [facility] Start: 09-24-2022 Bedrest [facility] Start: 09-24-2022 [facility] Start: 09-24-2022 Admission procedure [facility] Start: 09-24-2022 Taking patient vital signs [facility] Start: 09-24-2022 Wound care [facility] Start: 09-24-2022 [facility] Start: 02-04-2022 [facility] Work Phone: Start: 12-22-2021 Patient discharge [facility] Work Phone: Start: 12-21-2021 Ambulation without limitation [facility] Work Phone: Start: 12-21-2021 Assessment of risk of venous thromboembolism [facility] Work Phone: Start: 12-21-2021 Incentive spirometry [facility] Work Phone: Start: 12-21-2021 Insertion of catheter into peripheral vein [facility] Work Phone: Start: 12-21-2021 Measuring intake and output [facility] Work Phone: Start: 12-21-2021 Oxygen therapy [facility] Work Phone: Start: 12-21-2021 Providing care according to standard [facility] Work Phone: Start: 12-21-2021 [facility]erral [facility] Work Phone: Start: 12-21-2021 Referral to occupational therapist [facility] Work Phone: Start: 12-21-2021 Referral to service [facility] Work Phone: Start: 12-21-2021 Following clinical pathway protocol [facility] Work Phone: Start: 12-21-2021 End: 12-21-2021 [facility] Work Phone: Start: 12-21-2021 Troponin I measurement [facility] Work Phone: Start: 12-21-2021 Verification routine [facility] Work Phone: Start: 12-21-2021 Admission procedure [facility] Work Phone: Start: 12-21-2021 [facility] Work Phone: Start: 12-19-2021 [facility] Work Phone: Start: 10-26-2021 Patient discharge [facility] Work Phone: Start: 10-25-2021 Following clinical pathway protocol [facility] Work Phone: Start: 10-25-2021 Application of intermittent pneumatic compression device [facility] Work Phone: Start: 10-25-2021 Assessment of risk of venous thromboembolism [facility] Work Phone: Start: 10-25-2021 Care regimes management [facility] Work Phone: Start: 10-25-2021 Insertion of catheter into peripheral vein [facility] Work Phone: Start: 10-25-2021 Notification of physician [facility] Work Phone: Start: 10-25-2021 Oxygen therapy [facility] Work Phone: Start: 10-25-2021 Patient education [facility] Work Phone: Start: 10-25-2021 Providing care according to standard [facility] Work Phone: Start: 10-25-2021 Provision of activity privileges [facility] Work Phone: Start: 10-25-2021 Referral to occupational therapist [facility] Work Phone: Start: 10-25-2021 Referral to service [facility] Work Phone: Start: 10-25-2021 [facility] Work Phone: Start: 10-25-2021 Care planning and problem solving actions [facility] Work Phone: Start: 10-25-2021 Admission procedure [facility] Work Phone: Start: 01-16-2018 End: 01-16-2018 Appointment [facility] Work Phone: Start: 01-15-2017 End: 01-15-2017 Appointment Appointment [facility] Work Phone: Start: 01-15-2017 End: 01-15-2017 BACKFILLER [facility] Work Phone: Start: 01-15-2017 End: 01-15-2017 Follow Up Appt 1 year Follow Up Appt 1 year [facility] Work Phone: Start: 05-25-2016 End: 05-25-2016 Follow Up Appt 6 months Follow Up Appt 6 months [facility] Work Phone: Start: 05-25-2016 End: 05-25-2016 MMM MMM [facility] Work Phone: Start: 11-23-2015 End: 11-23-2015 BACKFILLER BACKFILLER [facility] Work Phone: Start: 11-23-2015 End: 11-23-2015 Follow Up Appt 6 months Follow Up Appt 6 months [facility] Work Phone: Start: 05-31-2015 End: 05-31-2015 Follow Up Appt 6 months Follow Up Appt 6 months [facility] Work Phone: Start: 05-31-2015 End: 05-31-2015 MMM MMM [facility] Work Phone: Start: 12-14-2014 End: 11-08-2016 *Hepatic Function Panel *Hepatic Function Panel [facility] Work Phone: Start: 12-14-2014 End: 11-08-2016 Lipid panel [AGGREGATE] *Lipid Profile CC PCP [facility] Work Phone: Start: 11-09-2014 End: 11-08-2015 BACKFILLER BACKFILLER [facility] Work Phone: Start: 11-09-2014 End: 11-08-2015 Follow Up Appt 6 months Follow Up Appt 6 months [facility] Work Phone: Start: 09-28-2014 End: 11-03-2014 Electrocardiogram, complete EKG (In office) [facility] Work Phone: Start: 09-28-2014 End: 09-28-2014 Follow Up Appt 6 weeks Follow Up Appt 6 weeks [facility] Work Phone: Start: 09-28-2014 End: 09-28-2014 MMM MMM [facility] Work Phone: Start: 05-26-2014 End: 11-03-2014 *BMP *BMP [facility] Work Phone: Start: 05-26-2014 End: 05-31-2014 *Hepatic Function Panel *Hepatic Function Panel [facility] Work Phone: Start: 05-26-2014 End: 05-26-2014 BACKFILLER BACKFILLER [facility] Work Phone: Start: 05-26-2014 End: 05-26-2014 Echocardiography Echocardiogram (complete) [facility] Work Phone: Start: 05-26-2014 End: 05-26-2014 Electrocardiogram, complete EKG (In office) [facility] Work Phone: Start: 05-26-2014 End: 05-26-2014 Follow Up Appt 1 month Follow Up Appt 1 month [facility] Work Phone: Start: 05-26-2014 End: 05-31-2014 Lipid panel [AGGREGATE] *Lipid Profile CC PCP [facility] Work Phone: Start: 05-26-2014 End: 05-26-2014 Nuclear stress test -Lexiscan Nuclear stress test -Lexiscan [facility] Work Phone: Start: 05-26-2014 End: 11-03-2014 Thyroid stimulating hormone (TSH) *TSH [facility] Work Phone: Start: 05-26-2014 End: 11-03-2014 Thyroxine (T4) *T4 (Total) [facility] Work Phone: Start: 12-30-2013 End: 11-23-2015 X-ray exam of finger(s) X-Ray, Fingers [facility] Work Phone: Influenza virus A an d B and SARS-CoV-2 (COVID-19) Ag panel - Upper respiratory specim [facility] Magnesium [Mass/volu me] in Serum or Plasma [facility] Work Phone: Patient Education [facility] Work Phone: Patient referral [facility] Work Phone: SARS-CoV-2 (COVID-19 ) Ag [Presence] in Respiratory specimen by Rapid immunoassay [facility] Work Phone: Troponin I measurement [facility] Work Phone: Immunizations Immunization Date Immunization Notes Care Provider Fa emmanuelty 07-03-2024 tetanus toxoid, redu sen diphtheria toxoid, and acellular pertussis vaccine, adsorbed Dr. Bernard Nugent MD Work Phone: [facility] 07-15-2020 Covid (Moderna) Dr. Bernard Nugent Work Phone: [facility] 06-17-2020 Covid (Moderna) Dr. Bernard Nugent Work Phone: [facility] 02-16-[address] Bernard Nugent Work Phone: [facility] Payers Date Payer Category Payer Self-pay [id number] 2023 Private Health Insurance [id number] 2016 Medicare [id number] Medicare [id number] Unknown [id number] 2.16.8 [id number] Unknown [id number] 2.16.8 [id number] Unknown [id number] 2.16.8 [id number] Unknown [id number] 2.16.8 40.1.740527.3.579.2.462 Unknown [id number] 2.16.8 40.1.475632.3.579.2.462 Unknown [id number] 2.16.8 40.1.382686.3.579.2.462 Unknown [id number] 2.16.8 40.1.717487.3.579.2.462 Unknown [id number] 2.16.8 40.1.692883.3.579.2.462 Unknown [id number] 2.16.8 40.1.556472.3.579.2.462 Unknown [id number] 2.16.8 40.1.537294.3.579.2.462 Unknown [id number] 2.16.8 40.1.501107.3.579.2.462 Unknown [id number] 2.16.8 40.1.707886.3.579.2.462 Unknown [id number] 2.16.8 40.1.686104.3.579.2.462 Unknown [id number] 2.16.8 40.1.481627.3.579.2.462 Unknown [id number] 2.16.8 40.1.378725.3.579.2.462 Unknown [id number] 2.16.8 40.1.170645.3.579.2.462 Unknown [id number] 2.16.8 40.1.592428.3.579.2.462 Unknown [id number] 2.16.8 40.1.418720.3.579.2.462 Unknown [id number] 2.16.8 40.1.236738.3.579.2.462 Unknown [id number] 2.16.8 40.1.987955.3.579.2.462 Unknown [id number] 2.16.8 40.1.248986.3.579.2.462 Social History Date Type Detail Facility Start: 10-25-2021 End: 07-11-2023 Tobacco smoking status NHIS Unknown if ever smoked [facility] Start: 1935 Sex Assigned At Male [facility] Start: 07-03-2024 End: 07-03-2024 Tobacco smoking status NHIS Never smoked tobacco (finding) [facility] Start: 07-23-2024 End: 08-06-2024 Sex Male (finding) [facility] Medical Equipment Procedure Code Equipment Code Equipment Origin al Text Equipment Identifier Dates ([id number]) Endocardial paci ng lead ()[id number] [id number] FDA Start: 09-24-2022 ([id number]) Single-chamber implantable pacemaker, rate-responsive ()[id number] [id number] FDA Start: 09-24-2022 Goals Date Patient Goal Desired Activity /State Functional Status Date Assessment Result Facility 09-25-2022 Functional status [facility] Work Phone: 12-22-2021 Functional status [facility] Work Phone: 10-26-2021 Functional status Activity Abili ty With Assist of 1 [facility] Work Phone: Mental Status Date Assessment Result Facility 05-26-2023 Cognitive function Level Of Cons ciousness Awake;Alert;Appropriate [facility] Work Phone: 03-24-2023 Cognitive function Level Of Cons ciousness Awake;Alert;Appropriate [facility] Work Phone: 09-25-2022 Cognitive function Voice/Name [facility] Work Phone: 12-22-2021 Cognitive function Voice/Name [facility] Work Phone: 10-26-2021 Cognitive function Voice/Name [facility] Work Phone: Clinical Notes 09-25-2022 to 10-30-2024 Note Date & Type Note Facility 10-30-2024 Radiology Diagnostic study note [facility] Imaging Services [address] [place], [place] [address] Abdomen Single View MR#: [id number] Acct: [id number] Name: ASHIA PEREZ Rep #: [id number] : 1935 M 89 From: Magalis Judge MD PCP: Dr. Bernard Nugent MD Status: AJAY CASTRO Study:Abdomen Single View Date of Exam: 10/30/24 Exam# [id number] Ordering Dr: Bernard Nugent MD EXAM: XR Abdomen, 1 View CLINICAL INDICATION: DIARRHEA TECHNIQUE: Frontal supine view of the abdomen/pelvis. COMPARISON: No relevant prior studies available. FINDINGS: GASTROINTESTINAL TRACT: Fecal retention in the colon consistent with constipation. No dilation. BONES/JOINTS: Unremarkable. No acute fracture. RAD/Abdomen Single View IMPRESSION: Fecal retention in the colon consistent with constipation. [facility] CC: Dr. Bernard Nugent MD ~ [employer] Life Support Fitter: Signed [facility] 03-31-2024 Evaluation note Diagnosis Onset Date Resolution Aortic aneurysm without rupture acute March 31, 11:10am NSVT (nonsustained ventricular tachycardia) acute March 31 11:10am Status post cardiac pacemaker procedure acute March 11:10am Essential (primary) hypertension chronic March 31 024 11:10am Longstanding persistent atrial fibrillation chronic March 11:10am [facility] Work Phone: 1(331) 926-557511-05-2023 Discharge summary Author Raghu Acosta [facility] March 24, 2023 12:17pm Note Date/Time March 24, 2023 1 0:19am [facility] Medical Records Department [address] [place] [address] Emergency Department Summary 03/24/23 MR#: [id number] Acct: [id number] Name: ASHIA PEREZ Rep #:[id number] : 1935 87 From: Raghu Acosta DO [...] He is on glimepiride. No recent changes. [facility] Medical History Atrial fibrillation Chronic renal insufficiency, [...] (1,000 unit) capsule 25 mcg PO DAILY [id number]/07/22 [History Last Taken Unknown] tamsulosin 0.4 mg [...] 82.0 H Lymph % (Auto) 9.1 L Wayne % (Auto) 6.9 Eos % (Auto) 1.0 [...] Clarity Clear Urine pH 7.0 Ur Specific Ramsey 1.010 Urine Protein 15 H Urine Glucose [...] Signed: Zac Carias MD at 11:46 EST Reading Location ID and State: [address] [place] [address] Tel , Service support , Discharge Plan Triage Chief Complaint: Weakness [...] your Primary Care Provider. Call [facility] ([phone]) or report to the closest Emergency Room. Call 911 if necessary. 03/24/23 1217 <Electronically signed by Raghu Acosta DO> Cosigner Signature (if applicable): CC: Dr. Bernard Nugent MD ~ Signed [facility] Work Phone: 1(953) 483-577205-09-[address] [facility] September 25, 2022 8:04am Note Date/Time September 25, 2022 8:04am [facility] Medical Records Department [address] [place] [address] Instructions for Home/Discharge Instructions 09/25/22 0803 MR#: [id number] Acct: [id number] Name: ASHIA PEREZ Rep #:[id number] : 1935 86 From: Rodolfo Tobias MD [...] Order can be placed): Home, Self Care 09/25/22803<Electronically signed by Rodolfo Tobias MD>Rodolfo Tobias MD CC: Dr. Bernard Nugent MD ~ Signed [facility] Work Phone: 1(331) 165-283605-09-[address] Tobias [facility] September 25, 2022 8:01am Note Date/Time September 25, 2022 8:01am [facility] Medical Records Department [address] [place] [address] Progress Note - Cardiology 09/25/22 0800 MR#: [id number] Acct: [id number] Name: ASHIA PEREZ Rep #:[id number] : 1935 86 From: Rodolfo Tobias MD PCP: Dr. Bernard Nugent MD Status:REG S DC Location: [place] [address] Subjective Subjective Patient seen and evaluated. Appears [...] and Output for Last 24 Hours 09/23/22 09/24/2209/25/23 23:59 23:59 23:59 Intake Total 120 / [...] Signed: Ganga Ricks MD at 5:48 EDT , Physical Exam Const alert, oriented x3 [...] can be discharged for outpatient follow-up. 09/25/22 0801 <Electronically signed by Rodolfo Tobias MD> Cosigner Signature (if applicable): CC: ~ Signed [facility] Work Phone: Evaluation note* Diagnosis Onset Date Resolution Status Closed head injury acute Fall acute Hypokalemia acute Hyponatremia acute Syncope and collapse acute Weakness acute [facility] Work Phone: Evaluation note* Diagnosis Onset Date Resolution Status Hyponatremia acute Weakness acute Hypokalemia resolved [facility] Work Phone: Evaluation note* Diagnosis Onset Date Resolution Status Hyponatremia acute Weakness acute Hypokalemia resolved Essential (primary) hypertension chronic Hyperlipidemia chronic Longstanding persistent atrial fibrillation chronic [facility] Work Phone: Evaluation note* Diagnosis Onset Date Resolution Status Hyponatremia acute Weakness acute Hypokalemia resolved Essential (primary) hypertension chronic Hyperlipidemia chronic Longstanding persistent atrial fibrillation chronic Bradycardia acute History of acute heart failure acute Junctional rhythm acute SOB (shortness of breath) on exertion acute Symptomatic bradycardia acut e Chronic renal insufficiency, stage III (moderate) chronic [facility] Work Phone: Evaluation note* Diagnosis Onset Date [...] Hyperlipidemia chronic Longstanding persistent atrial fibrillation chronic [facility] Work Phone: Evaluation note* Diagnosis Onset Date Resolution Status Hyponatremia acute Weakness acute Hypokalemia resolved Bradycardia resolved Junctional rhythm resolved SOB (shortness of breath) on exertion resolved [facility] Work Phone: Evaluation note* Diagnosis Onset Date Resolution Status Bradycardia resolved Junctional rhythm resolved SOB (shortness of breath) on exertion resolved Breast mass, left acute [facility] Work Phone: Evaluation note* Diagnosis Onset Date Resolution Status Essential (primary) hypertension chronic Longstanding persistent atrial fibrillation chronic [facility] Work Phone: Evaluation note* Diagnosis Onset Date Resolution Status Essential (primary) hypertension chronic Longstanding persistent atrial fibrillation chronic Essential (primary) hypertension chronic Longstanding persistent atrial fibrillation chronic Status post cardiac pacemaker procedure acute Longstanding persistent atrial fibrillation chronic [facility] Work Phone: Evaluation note* Diagnosis Onset Date [...] 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 [facility] Work Phone: Evaluation note* Diagnosis Onset Date [...] 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 [facility] Work Phone: Evaluation note* Diagnosis Onset Date [...] hypertension chronic Longstanding persistent atrial fibrillation chronic [facility] Work Phone: Evaluation note* Diagnosis Onset Date Resolution Status Essential (primary) hypertension chronic Longstanding persistent atrial fibrillation chronic Bradycardia acute 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 Longstanding persistent atrial fibrillation chronic [facility] Work Phone: Evaluation noteNo assessment information available [facility] Work Phone: Evaluation note* Diagnosis Onset Date Resolution Status Aortic aneurysm without rupture acute NSVT (nonsustained ventricular tachycardia) acute Essential (primary) hypertension chronic Longstanding persistent atrial fibrillation chronic [facility] Work Phone: Hospital Discharge instructions Additional Instructions Break your metoprolol tablets in half and take 1/2 tablet each day rather than 1 tablet each day. Call Dr. Tobias's office in the morning [facility] Work Phone: Hospital Discharge instructions Additional Instructions Stay well-hydrated. Follow-up with your PCP and return for any worsening of your symptoms.[facility] Work Phone: Hospital Discharge instructions Additional Instructions [...] discuss with your primary care physician and/or inspector general incidental finding of thoracic arctic aneurysm to obtain proper follow-up and [facility] Work Phone: Reason for referral (narrative)No reason for referral information availableWMem[facility] Work Phone: Summary Purpose Family History No Family History Records Found Relationship Condition Age at Onset Recorded Date/T angela father Cerebrovascular accident (CVA) Unknown mother Diabetes mellitus Unknown sister Cardiac disease Unknown Advance Directives No Advanced Directives Records Found Advance Directive Response Recorded Date/ Time Advance Directives Yes June 07, 2016 6:40pm Living Will Yes October 25, 2021 8 :34pm Power of Almond Blancher Yes October 25, 2021 8:34pm Advance Directive Response Recorded Date/ Time Name of Medical Power of Almond Blancher Joleen lao ter October 26, 2021 12:05am Advance Directives Yes June 07, 2016 6:40pm Living Will Yes October 26, 2021 1 2:05am Power of Almond Blancher Yes October 26, 2021 12:05am Advance Directive Response Recorded Date/ Time Name of Medical Power of Almond Blancher Joleen lao ter October 26, 2021 12:05am Name of Medical Power of Almond Blancher JOLEEN MCDONALD- DAUGHTER December 19, 2021 10:21am Advance Directives Yes June 07, 2016 6:40pm Living Will Yes December 19, 2021 10:21am Power of Almond Blancher Yes December 19 10:21am Advance Directive Response Recorded Date/ Time Name of Medical Power of Almond Blancher Joleen Traore daalicia ter October 26, 2021 12:05am Name of Medical Power of Almond Blancher JOLEEN MCDONALD- DAUGHTER December 19, 2021 10:21am Name of Medical Power of Almond Blancher Mervat December 21, 2021 5:07pm Advance Directives Yes June 07, 2016 6:40pm Living Will Yes December 21, 2021 5:07pm Power of Almond Blancher Yes December 21 5:07pm Advance Directive Response Recorded Date/ Time Name of Medical Power of Almond Blancher Joleen - daughter October 26, 2021 12:05am Name of Medical Power of Almond Blancher JOLEEN VASQUEZ December 19, 2021 10:21am Name of Medical Power of Almond Blancher Mervat December 21, 2021 5:07pm Name of Medical Power of Almond Blancher andrew marte February 04, 2022 10:15pm Advance Directives Yes June 07, 2016 6:40pm Living Will Yes February 04, 2022 10:15pm Power of Almond Blancher Yes January 10:15pm Advance Directive Response Recorded Date/ Time Name of Medical Power of Almond Blancher JOLEEN VASQUEZ December 19, 2021 10:21am Name of Medical Power of Almond Blancher Mervat December 21, 2021 5:07pm Name of Medical Power of Almond Blancher andrew marte February 04, 2022 10:15pm Advance Directives Yes June 07, 2016 6:40pm Living Will Yes February 04, 2022 10:15pm Power of Almond Blancher Yes January 10:15pm Advance Directive Response Recorded Date/ Time Name of Medical Power of Almond Blancher JOLEEN VASQUEZ December 19, 2021 9:21am Name of Medical Power of Almond Blancher Mervat December 21, 2021 4:07pm Name of Medical Power of Almond Blancher andrew marte February 04, 2022 9:15pm Advance Directives Yes June 07, 2016 5:40pm Living Will Yes February 04, 2022 9:15pm Power of Almond Blancher Yes January 9:15pm Advance Directive Response Recorded Date/ Time Advance Directives Yes June 07, 2016 5:40pm Living Will Yes February 04, 2022 9:15pm Power of Almond Blancher Yes January 9:15pm Advance Directive Response Recorded Date/ Time Advance Directives Yes June 07, 2016 6:40pm Living Will Yes February 04, 2022 10:15pm Power of Almond Blancher Yes January 10:15pm Advance Directive Response Recorded Date/ Time Advance Directives on File No September 242022 11:20am Name of Medical Power of Almond Blancher Joleen (daught er) September 24, 2022 11:20am Advance Directives Yes September 24, 2022 11:20am Living Will Yes September 24, 2022 11 :20am Power of Almond Blancher Yes September 24, 2022 11:20am Advance Directive Response Recorded Date/ Time Advance Directives Yes September 24, 2022 11:20am Living Will Yes September 24, 2022 11 :20am Power of Almond Blancher Yes September 24, 2022 11:20am Advance Directive Response Recorded Date/ Time Advance Directives Yes September 24, 2022 10:20am Living Will No March 24 10:00am Power of Almond Blancher No March 24, 2023 10:00am Advance Directive Response Recorded Date/ Time Advance Directives Yes September 24, 2022 10:20am Living Will No May 26 6:26pm Power of Almond Blancher No May 26 6:26pm Advance Directive Response Recorded Date/ Time Name of Medical Power of Almond Blancher joleen (daught er) July 07, 2023 11:38am Advance Directives Yes September 24, 2022 10:20am Living Will Yes July 07 11:38am Power of Almond Blancher Yes July 07, 2023 11:38am Advance Directive Response Recorded Date/ Time Name of Medical Power of Almond Blancher joleen (daught er) July 07, 2023 12:38pm Advance Directives Yes September 24, 2022 11:20am Living Will Yes July 07 12:38pm Power of Almond Blancher Yes July 07, 2023 12:38pm Advance Directive Response Recorded Date/ Time Living Will Yes September 24, 2022 10 :20am Power of Almond Blancher Yes September 24, 2022 10:20am Living Will Yes July 03 2:37pm Power of Almond Blancher Yes July 03, 2024 2:37pm Name of Medical Power of Almond Blancher JOLEEN - PUMA TER July 03, 2024 2:37pm Advance Directives Yes September 24, 2022 10:20am Advance Directive Response Recorded Date/ Time Living Will Yes July 03 3:37pm Do you have a Healthcare Pow er of Almond Blancher? Yes July 03, 2024 3:37pm Name of Medical Power of Almond Blancher JOLEEN - DAUGH TER July 03, 2024 3:37pm Advance Directives Yes September 24, 2022 11:20am Advance Directive [...] A-FIB Bradycardia per Dr. Raffi ROBERTO PER BACKFILLER REGARDING EKG PERSISTENT ATRIAL FIB PERSISTENT ATRIAL FIB Reason for Visit Essential (primary) hypertension Longstanding persistent atrial fibrillation Essential (primary) hypertension Longstanding persistent atrial fibrillation Status post cardiac pacemaker procedure Longstanding persistent atrial fibrillation Chief Complaint EORDER INT LABS PERSISTENT A-FIB Bradycardia per Dr. Raffi ROBERTO PER BACKFILLER REGARDING EKG PERSISTENT ATRIAL FIB PERSISTENT ATRIAL [...] Check Remote August 06, 2024 3:3 2am Chief Complaint Admit Date Pacer Check Remote August 06, 2024 3:3 2am Additional Source Comments (unrecognized sect ion and content) No Status Records FoundNo Status Records Found INFORMATION SOURCE (unrecogn ized section and content) DATE CREATED AUTHOR 05/17/2018 [facility] DATE CREATED AUTHOR 'Mo HENLEY 11/11/2024 [facility] Goals (unrecognized section and content) Goals may [...] Primary Care Provider, Referring Provider Active Evin H Roof BLOCKER AND CUTTER CONTACT LENS, BLOCKER [employer] CUTTER CONTACT LENS-C Attending Provider Active Team Status: Active Member Role Status Dates Dr. Bernard Nugent MD Primary Care Provider Active Dr. Shaila Haq DO Attending Provider Active Shaila Haq MD Referring Provider Active Evin H Roof BLOCK[employer] CUTTER CONTACT LENS, BLOCKER AND CUTTER CONTACT LENS-C Other Provider Active Team Status: Inactive Member Role Status Dates Dr. Bernard Nugent MD Primary Care Provider Active Dr. Rodolfo Tobias MD Attending Provider Active Team Status: Inactive Member Role Status Dates Dr. Bernard Nugent MD Primary Care Provider Active Dr. Shaila Haq DO Attending Provider Active Shaila Haq MD Referring Provider Active Evin H Roof BLOCKER AND CUTTER CONTACT LENS, BLOCKER AND CUTTER CONTACT LENS-C Other Provider Active Team Status: Inactive Member Role Status Dates Dr. Bernard Nugent MD Primary Care Provider Active Dr. Shaila Haq DO Attending Provider Active Shaila CHAVEZ MD Referring Provider Active Evin H Roof BLOCKER AND CUTTER CONTACT LENS, BLOCKER AND CUTTER CONTACT LENS-C Other Provider Active Team Status: Inactive Member Role Status Dates Dr. Bernard Nugent MD Primary Care Provider Active Dr. Shaila Haq DO Attending Provider Active Team Status: Active Member Role Status Dates Dr. Bernard Nugent MD Primary Care Provider Active Evin H Roof BLOCKER AND CUTTER CONTACT LENS, BLOCKER AND CUTTER CONTACT LENS-C Attending Provider, Referring Pro vider Active Team Status: Inactive Member Role Status Dates Dr. Bernard Nugent MD Primary Care Provider Active Evin H Roof BLOCKER [employer] CUTTER CONTACT LENS, BLOCKER AND CUTTER CONTACT LENS-C Attending Provider, Referring Pro vider Active Team [...] Active Dr. Ray Stuart DO Attending Provider, Satish see Active Team Status: Inactive Member Role Status [...] October 22, 2024 End: October 22, 2024 Team Status: Inactive Member Role Status Dates Dr. Bernard Nugent MD Primary Care Provider Active Start: October 30, 2024 End: October 30, 2024 Dr. Bernard Nugent MD Attending Provider Active Start: October 30, 2024 End: October 30, 2024 Dr. Bernard Nugent MD Referring Provider Active Start: October 30, 2024 End: October 30, 2024 FOR RECORDS PERTAINING TO PATIENTS WHO [...] BE BASED ON THE PRIMARY CLINICAL RECORDS. [facility] [employer] [facility]. provides no warranty or guarantee of the accuracy or completeness of information in this document.
[2024-11-11] MEDS: metroNIDAZOLE 500 MG/100 ML BAG 100 MG IV (23:14)
[2024-11-11 23:17] LABS: Magnesium 1.9 mg/dL (1.5-2.2); Phosphorus 3.2 mg/dL (2.7-4.5)
[2024-11-11 23:55] VITALS: BP 158/69; PULSE 62; RESP 16; TEMP 36.6; O2SAT 96
[2024-11-11 23:56] VITALS: BMI 28.0
[2024-11-12 00:11] LABS: Bedside Glucose 183 mg/dL (74-106)
[2024-11-12] MEDS: 0.9% Normal Saline (1000mL) 1,000 ML 75 ML IV (00:37)
[2024-11-12] MEDS: Phenylephrine 0.25%/Cocoa Btr 1 Rectal Supp 1 SUPP RC ×4 (00:37→22:48)
[2024-11-12] MEDS: Pantoprazole Sodium 40 MG in 0.9% Normal Saline (100mL MB+) 100 ML 330 MG IV ×3 (00:37→22:42)
[2024-11-12 05:00] VITALS: BP 131/67; PULSE 61; RESP 16; TEMP 36.6; O2SAT 96
[2024-11-12 05:47] VITALS: BMI 27.9
[2024-11-12] MEDS: Levothyroxine 25 MCG TABLET PO (06:36)
[2024-11-12] MEDS: Piperacil/Tazobactam 3.375 GM in 0.9% Normal Saline (50mL MB+) 50 ML IV ×3 (06:36→22:49)
[2024-11-12 06:57] LABS: Absolute Lymphocyte Count 1.01 X10^3/uL (0.83-4.51); Absolute Neutrophil Count 6.3 X10^3/uL (2.0-7.7); Basophil# 0.04 X10^3/uL; Basophil% 0.5 % (0-1); Eosinophil# 0.13 X10^3/uL; Eosinophils% 1.6 % (0-5); Hematocrit 31.3 % (40-54); Lymphocyte # 1.01 X10^3/ul (0.83-4.51); Lymphocyte % 12.1 % (19-41); Mean Corp Hgb Conc 35.1 g/dL (32-36); Mean Corpuscular Hgb 31.1 pg (27.0-32.0); Mean Corpuscular Volume 88.4 fL (80-94); Mean Platelet Vol. 11.2 fl (6.2-12.0); Monocyte# 0.86 X10^3/uL; Monocyte% 10.3 % (0-10); NRBC Flagged by Analyzer 0 % (0-5); Neutrophil # 6.28 X10^3/uL (2.7-7.7); Neutrophil % 75.1 % (47-70); Platelet Count 174 K/mm3 (150-450); RBC Distribution Width CV 13.2 % (11.6-14.6); RBC Distribution Width SD 42.7 fl (35.1-43.9); Red Blood Count 3.54 M/mm3 (4.6-6.2); White Blood Count 8.4 K/mm3 (4.4-11.0)
[2024-11-12 07:03] LABS: Bedside Glucose 110 mg/dL (74-106)
[2024-11-12 07:36] LABS: Procalcitonin 0.06 ng/mL (<=0.10)
[2024-11-12 09:10] VITALS: BP 146/93; PULSE 60; RESP 18; TEMP 36.6; O2SAT 99
[2024-11-12 09:14] VITALS: BP 146/93; PULSE 60
[2024-11-12] MEDS: amLODIPine 5 MG Tablet PO (09:14)
[2024-11-12] MEDS: Metoprolol Tartrate 25 MG Tablet PO ×2 (09:14→22:48)
[2024-11-12] MEDS: APIXABAN 2.5 MG TABLET (WCH) PO ×2 (09:14→22:49)
[2024-11-12] MEDS: Losartan Potassium 100 MG Tablet PO (09:14)
[2024-11-12] MEDS: Menthol/Lanolin/Calamine/Znox 113 GM Tube 1 APPLIC TOPICAL ×3 (09:44→22:49)
--- NOTE | 2024-11-12 10:40 | CASEMGMT ---
NICOLE BARKLEY Assessment: Face to Face with pt for initial transition planning/care coordination assessment. NICOLE BARKLEY introduced self and role at [facility], pt voices understanding and consents to assessment. Pt is A&O x4 and answers all questions appropriately at this time. Pt sitting up in chair in no distress. Care providers, pharmacy, and demographics verified/updated. Admitting Dx: rectal pain colitis Strata Score: 3 PCP:Raffi Specialists:Jatinder, cardio; Severino nephsuzy Preferred Pharmacy: [facility] Insurance: [facility] Prescription Benefit: yes LNOK: Patti Thao, dtr; Chelsy Sadler, dtr Living Arrangements: Pt lives alone in a two story apt with [facility] and no steps to enter. Pt reports he is I in ADL/IADLs except his neighbor gets his groceries as he works at [employer]. Pt denies concerns at home. Transportation: Pt does not drive. Pt uses [facility] transportation and his neighbors. Pt anticipates having transportation home. DME:Denies. Pt states he was taken off of his DM meds and does not have BGM. HHC/SNF: Pt has had [facility] HHC in the past and denies SNF stays. Pt states no concerns with going home at time of dc. Pt declined therapy d/t being indep. Pt states no further concerns/needs. CM to follow. Advised pt to ask CM if any further questions/concerns/needs arise, voices understanding. Pt Goal: Home Plan: Home Report given to MS3 RUBIA Giordano RN, CM
--- NOTE | 2024-11-12 10:48 | CASEMGMT ---
NICOLE BARKLEY Assessment: Face to Face with pt for initial transition planning/care coordination assessment. NICOLE BARKLEY introduced self and role at [facility], pt voices understanding and consents to assessment. Pt is A&O x4 and answers all questions appropriately at this time. Pt found ambulating halls indep and came back to room for assessment. Care providers, pharmacy, and demographics verified/updated. Admitting Dx: hyponatremia Strata Score: 3 PCP:Ray Specialists:Porfirio, rheum; Judah, nephro; Jarrett, opt; Gina, ortho Preferred Pharmacy: [facility] Insurance: [facility] Prescription Benefit: yes LNOK: Shaila Johnson, Living Arrangements: Pt lives with in a two story home with 2 steps to enter. Pt reports he is I in ADL/IADLs and denies concerns at home. Transportation: Pt drives self and denies concerns with transportation. DME:Pt has DME available from prior surgeries but does not use AD. HHC/SNF: Denies hx of Pt states no concerns with going home at time of dc. SW c/s for substance abuse. Pt anxious to dc home. Pt states no further concerns/needs. CM to follow. Advised pt to ask CM if any further questions/concerns/needs arise, voices understanding. Pt Goal: Home Plan: Home Giuliana RIVERA CM
[2024-11-12 11:55] LABS: Bedside Glucose 165 mg/dL (74-106)
[2024-11-12 14:33] VITALS: BP 134/60; PULSE 60; RESP 16; TEMP 36.5; O2SAT 100
[2024-11-12 15:25] LABS: ALB/GLOB Ratio 1.5 RATIO (0.9-2.4); AST(SGOT) 19 U/L (<=37); Alanine Aminotransfer ALT/SGPT 18 U/L (<=46); Albumin, Serum 3.2 g/dL (3.4-4.8); Alkaline Phosphatase 112 U/L (40-129); Anion Gap 9 (5-15); BUN 15 mg/dL (4-19); BUN/Creat Ratio 12.1 RATIO (10-20); Carbon Dioxide 22.2 mmol/L (21.0-32.0); Chloride 106 mmol/L (98-108); Creatinine, Serum 1.26 mg/dL (0.70-1.20); EST Glomerular Filtration Rate 55 (>60); Estimated Creatinine Clearance 44.55 ml/min (50-250); Globulin 2.1 g/dL (2.2-4.2); Glucose 105 mg/dL (70-99); Potassium 3.6 mmol/L (3.3-5.1); Protein, Total 5.3 g/dL (5.9-8.4); Sodium Level 137 mmol/L (133-145); Total Bilirubin 1.85 mg/dL (0.00-1.30)
--- NOTE | 2024-11-12 16:26 | PN.HOSP_ITS ---
Reason for Visit Reason for Visit: Diagnoses Noninfective gastroenteritis and colitis, unspecified (11/11/24) Subjective Subjective Patient was seen and examined today, white blood cell count today was 8.4, hemoglobin was 11. Patient was admitted last night after he went to the ER complaining of diarrhea, CT of the abdomen and pelvis showed wall thickening and surrounding fat stranding of the distal rectum likely infectious or inflammatory colitis. Objective Data Objective Data Vital Signs: Vital Signs Temp Pulse Resp BP Pulse Ox O2 Del Method 97.7 F L 60 16 134/60 H 100 Room Air 11/12/24 14:33 11/12/24 14:33 11/12/24 14:33 11/12/24 14:33 11/12/24 14:33 11/12/24 14:33 Oxygen Delivery Method Room Air Weight: 88.6 kg Body Mass Index (BMI) 27.9 Intake & Output: Intake and Output for Last 24 Hours 11/10/24 11/11/24 11/12/24 23:59 23:59 23:59 Intake Total 50 / 50 1008.75 / 1008.75 Output Total 500 / 500 Balance 50 / -250 508.75 / 508.75 Lab / Micro Data 11/12/24 06:20 11/12/24 06:20 Labs: Laboratory Results - last 24 hr 11/11/24 18:56: WBC 11.4 H, RBC 4.09 L, Hgb 12.8 L, Hct 36.9 L, MCV 90.2, MCH 31.3, MCHC 34.7, RDW Std Deviation 43.8, RDW Coeff of Lisa 13.3, Plt Count 211, MPV 11.0, Immature Gran % (Auto) 0.600, Neut % (Auto) 81.6 H, Lymph % (Auto) 8.3 L, Spalding % (Auto) 8.4, Eos % (Auto) 0.8, Baso % (Auto) 0.3, Absolute Neuts (auto) 9.3 H, Absolute Lymphs (auto) 0.95, Nucleated RBC % 0, Sodium 136, Potassium 4.0, Chloride 102, Carbon Dioxide 23.1, Anion Gap 11, BUN 20 H, Creatinine 1.46 H, Est GFR (MDRD) Non-Af 46 L, BUN/Creatinine Ratio 13.6, Glucose 171 H, Calcium 8.8, Phosphorus 3.2, Magnesium 1.9, Total Bilirubin 2.12 H, AST 24, ALT 19, A lkaline Phosphatase 142 H, Total Protein 6.7, Albumin 3.7, Globulin 3.0, Albumin/Globulin Ratio 1.2, Urine Color Yellow, Urine Clarity Clear, Urine pH 6.0, Ur Specific [place] 1.020, Urine Protein 30 H, Urine Glucose (UA) Normal, Urine Ketones Negative, Urine Occult Blood 25 H, Urine Nitrite Negative, Urine Bilirubin Negative, Urine Urobilinogen 1 H, Ur Leukocyte Esterase 25 H, Urine RBC 0-5 SEEN, Urine WBC 0-5 SEEN, Ur Squamous Epith Cells 0 SEEN, Urine Bacteria 0 SEEN, Urine Mucus 0 SEEN 11/11/24 23:52: POC Glucose 183 H 11/12/24 06:20: WBC 8.4, RBC 3.54 L, Hgb 11.0 L, Hct 31.3 L, MCV 88.4, MCH 31.1, MCHC 35.1, RDW Std Deviation 42.7, RDW Coeff of Lisa 13.2, Plt Count 174, MPV 11.2, Immature Gran % (Auto) 0.400, Neut % (Auto) 75.1 H, Lymph % (Auto) 12.1 L, Spalding % (Auto) 10.3 H, Eos % (Auto) 1.6, Baso % (Auto) 0.5, Absolute Neuts (auto) 6.3, Absolute Lymphs (auto) 1.01, Nucleated RBC % 0, Sodium 137, Potassium 3.6, Chloride 106, Carbon Dioxide 22.2, Anion Gap 9, BUN 15, Creatinine 1.26 H, Estim Creat Clear Calc 44.55 L, Est GFR (MDRD) Non-Af 55 L, BUN/Creatinine Ratio 12.1, Glucose 105 H, Calcium 8.0, Total Bilirubin 1.85 H, AST 19, ALT 18, Alkaline Phosphatase 112, Total Protein 5.3 L, Albumin 3.2 L, Globulin 2.1 L, Albumin/Globulin Ratio 1.5, Procalcitonin 0.06 11/12/24 06:35: POC Glucose 110 H 11/12/24 11:32: POC Glucose 165 H Micro: Microbiology 11/11/24 10:17 Stool Clostridioides difficile (PCR) - Final 11/11/24 18:56 Stool Stool Occult Blood (CHERRY) - Final Occult Blood Positive Radiography Diagnostic Testing: Radiology Impression Abdomen/Pelvis CT 11/11/24 18:57 IMPRESSION: 1. Wall thickening and surrounding fat stranding of the distal rectum, which likely represents infectious/inflammatory colitis. 2. Moderate pancolonic diverticulosis. Reading Location: [facility] Physical Exam Const alert, oriented x3 and no apparent distress General Appearance: cooperative, well kempt and well developed Orientation / Consciousness: awake, oriented to person, oriented to place and oriented to time HEENT normocephalic, head/scalp atraumatic and moist oral mucous membranes Eyes PERRL, EOMs intact bilaterally and conjunctivae normal Neck supple, no JVD, thyroid normal and no carotid bruits General: trachea midline Resp normal respiratory effort and clear to auscultation bilaterally Auscultation: Negative for rales, rhonchi or wheezes Cardio S1 normal heart sound, S2 normal heart sound, no murmurs, no rub and no gallops Cardio Narrative: Heart rate and rhythm is irregular GI normal to inspection, nondistended, normoactive bowel sounds, soft to palpation, non-tender and non-distended Extremity no clubbing, cyanosis or edema Skin no rashes or lesions noted General Skin Exam: no breakdown Neuro oriented x3, CN's II-XII intact bilaterally, moves all extremities, no focal motor deficits and no sensory deficits noted Sensorium / Orientation: awake and alert Speech: speech normal Psych affect normal Assessment & Plan Assessment/Plan (1) Colitis: PLAN: Plan 1. Acute colitis-patient will remain on IV antibiotics and a clear liquid diet for now, patient is on IV Zosyn #2 atrial fibrillation-patient is on Eliquis and metoprolol #3 chronic kidney disease stage IIIa-patient's creatinine today was 1.26, BMP will be monitored as needed #4 type 2 diabetes-patient is on sliding scale insulin and fingerstick blood sugars. Total clinical time spent by myself addressing the patient's medical issues, reviewing all of his data, and collaborating with patient's care team: 35 minutes Charges/Coding Visit Charges Inpatient E&M: 64125 Subs Hosp L2
[2024-11-12 17:07] LABS: Bedside Glucose 161 mg/dL (74-106)
[2024-11-12 22:39] VITALS: BP 131/71; PULSE 61; RESP 18; TEMP 36.7; O2SAT 97
[2024-11-12 22:48] VITALS: PULSE 61
[2024-11-12] MEDS: Pravastatin 40 MG Tablet PO (22:48)
[2024-11-13] VITALS (7 sets, daily range): BP systolic 132–160; BP diastolic 62–71; PULSE 59–67; RESP 16–18; TEMP 36.6–37; O2SAT 95–97; BMI 28.5
[2024-11-13 00:14] LABS: Bedside Glucose 131 mg/dL (74-106)
[2024-11-13] MEDS: MELATONIN 3 MG TABLET PO (01:26)
[2024-11-13] MEDS: Piperacil/Tazobactam 3.375 GM in 0.9% Normal Saline (50mL MB+) 50 ML IV ×3 (05:19→23:54)
[2024-11-13] MEDS: Levothyroxine 25 MCG TABLET PO (05:19)
[2024-11-13] MEDS: Phenylephrine 0.25%/Cocoa Btr 1 Rectal Supp 1 SUPP RC (05:19)
[2024-11-13 07:02] LABS: Bedside Glucose 107 mg/dL (74-106)
[2024-11-13] MEDS: amLODIPine 5 MG Tablet PO (07:35)
[2024-11-13] MEDS: Metoprolol Tartrate 25 MG Tablet PO ×2 (07:35→22:50)
[2024-11-13] MEDS: Losartan Potassium 100 MG Tablet PO (07:35)
[2024-11-13] MEDS: Menthol/Lanolin/Calamine/Znox 113 GM Tube 1 APPLIC TOPICAL ×3 (07:35→22:48)
[2024-11-13] MEDS: APIXABAN 2.5 MG TABLET (WCH) PO ×2 (07:36→22:49)
[2024-11-13] MEDS: Pantoprazole Sodium 40 MG in 0.9% Normal Saline (100mL MB+) 100 ML 330 MG IV ×2 (09:44→23:29)
[2024-11-13 11:31] LABS: Bedside Glucose 230 mg/dL (74-106)
[2024-11-13 16:51] LABS: Bedside Glucose 137 mg/dL (74-106)
--- NOTE | 2024-11-13 17:05 | PCM.PN.HOSP ---
Reason for Visit Reason for Visit: Diagnoses Noninfective gastroenteritis and colitis, unspecified (11/11/24) Subjective Subjective Patient was seen and examined today, at first he stated that he had not had a bowel movement but then stated that he had diarrhea. Patient has a past history of villous adenoma with right hemicolectomy in 2011, stool sample was positive for blood this admission, enteric pathogen and C. difficile was negative. I contacted gastroenterology and requested that they see the patient, he will undergo a flexible sigmoidoscopy today. Objective Data Objective Data Vital Signs: Vital Signs Temp Pulse Resp BP Pulse Ox O2 Del Method 97.8 F 60 18 150/71 H 95 Room Air 11/13/24 14:02 11/13/24 14:02 11/13/24 14:02 11/13/24 14:02 11/13/24 14:02 11/13/24 14:02 Oxygen Delivery Method Room Air Weight: 90.6 kg Body Mass Index (BMI) 28.5 Intake & Output: Intake and Output for Last 24 Hours 11/11/24 11/12/24 11/13/24 23:59 23:59 23:59 Intake Total 50 / 50 1500.00 / 1500.00 400 / 400 Output Total 900 / 900 400 / 400 Balance 50 / -250 600.00 / 600.00 0 / 0 Lab / Micro Data 11/12/24 06:20 11/12/24 06:20 Labs: Laboratory Results - last 24 hr 11/12/24 16:47: POC Glucose 161 H 11/12/24 22:54: POC Glucose 131 H 11/13/24 05:16: POC Glucose 107 H 11/13/24 11:09: POC Glucose 230 H 11/13/24 16:27: POC Glucose 137 H Micro: Microbiology 11/11/24 10:17 Stool Enteric Bacteriology - Final 11/11/24 10:17 Stool Clostridioides difficile (PCR) - Final 11/11/24 18:56 Stool Stool Occult Blood (CHERRY) - Final Occult Blood Positive Physical Exam Const alert, oriented x3 and no apparent distress General Appearance: cooperative, well kempt and well developed Orientation / Consciousness: awake, oriented to person, oriented to place and oriented to time HEENT normocephalic, head/scalp atraumatic and moist oral mucous membranes Eyes PERRL, EOMs intact bilaterally and conjunctivae normal Neck supple, no JVD, thyroid normal and no carotid bruits General: trachea midline Resp normal respiratory effort, no retractions, no use of accessory muscles and clear to auscultation bilaterally Auscultation: Negative for rales, rhonchi or wheezes Cardio regular rate, regular rhythm, S1 normal heart sound, S2 normal heart sound, no murmurs, no rub and no gallops GI normal to inspection, nondistended, normoactive bowel sounds, soft to palpation, non-tender and non-distended Extremity no clubbing, cyanosis or edema Skin no rashes or lesions noted General Skin Exam: no breakdown Neuro oriented x3, CN's II-XII intact bilaterally, moves all extremities, no focal motor deficits and no sensory deficits noted Sensorium / Orientation: awake and alert Speech: speech normal Psych affect normal Assessment & Plan Assessment/Plan (1) Occult GI bleeding: (2) Colitis: PLAN: Plan 1. Acute colitis-patient will remain on IV antibiotics and a clear liquid diet for now, patient is on IV Zosyn, patient will undergo flexible sigmoidoscopy today #2 atrial fibrillation-patient is on Eliquis and metoprolol #3 chronic kidney disease stage IIIa-monitor BMP as necessary #4 type 2 diabetes-patient is on sliding scale insulin and fingerstick blood sugars. Total clinical time spent by myself addressing the patient's medical issues, reviewing all of his data, and collaborating with patient's care team: 35 minutes Charges/Coding Visit Charges Inpatient E&M: 14729 Subs Hosp L2
[2024-11-13] MEDS: Pravastatin 40 MG Tablet PO (22:51)
[2024-11-13] MEDS: 0.9% Saline Lock 10 ML Syringe IV (23:27)
[2024-11-13 23:56] LABS: Bedside Glucose 103 mg/dL (74-106)
[2024-11-14 03:20] VITALS: BP 150/71; PULSE 60; RESP 16; TEMP 36.8; O2SAT 96
[2024-11-14 03:26] VITALS: O2SAT 96
[2024-11-14] MEDS: Piperacil/Tazobactam 3.375 GM in 0.9% Normal Saline (50mL MB+) 50 ML IV (05:00)
[2024-11-14 06:00] VITALS: BMI 28.5
[2024-11-14] MEDS: Dicyclomine 10 MG Capsule 20 MG PO ×2 (06:11→11:07)
[2024-11-14] MEDS: Levothyroxine 25 MCG TABLET PO (06:11)
[2024-11-14 06:48] LABS: Bedside Glucose 82 mg/dL (74-106)
[2024-11-14 06:56] VITALS: O2SAT 95
[2024-11-14 07:29] VITALS: PULSE 59
[2024-11-14] MEDS: Metoprolol Tartrate 25 MG Tablet PO (07:29)
[2024-11-14] MEDS: APIXABAN 2.5 MG TABLET (WCH) PO (07:30)
[2024-11-14] MEDS: Losartan Potassium 100 MG Tablet PO (07:30)
[2024-11-14] MEDS: amLODIPine 5 MG Tablet PO (07:30)
[2024-11-14] MEDS: Menthol/Lanolin/Calamine/Znox 113 GM Tube 1 APPLIC TOPICAL (07:30)
[2024-11-14 08:20] VITALS: BP 132/66; PULSE 59; RESP 16; TEMP 36.6; O2SAT 98
[2024-11-14] MEDS: Pantoprazole Sodium 40 MG in 0.9% Normal Saline (100mL MB+) 100 ML 330 MG IV (09:00)
--- NOTE | 2024-11-14 10:15 | DCINST_ITS ---
Discharge Instructions Diet Discharge Diet: No restrictions DC O2, CPAP, BIPAP needs Home O2 Discharge instructions: No Dressing / Incision Discharge Activity: Return to Normal Activity Weight Bearing Status: Full weight bearing Follow Up Care Test Results: Test results from this visit will be discussed in further detail at your follow- up appointment, if applicable. Discharge Plan Admission Admit Date/Time: 11/11/24 22:26 Primary Reason for Your Visit: Diarrhea, hematochezia (blood in stool) Attending Provider: Ankit Last Primary Care Provider: Bernard Nugent [employer] Providers: Unique Salazar Instructions Additional Instructions / Restrictions: You may obtain loperamide [id number] to take as needed for diarrhea Discharge Orders/Prescriptions Prescriptions: New loperamide 2 mg Capsule 4 mg PO TID PRN (Reason: Diarrhea) Qty: 1 0RF Rx Instructions: You may take loperamide 2 to 4 mg 3 times a day as needed for loose stools and diarrhea Continued losartan 100 mg tablet 100 mg PO QDAY furosemide 40 mg tablet 40 mg PO Q OTHER DAY PRN (Reason: edema) Rx Instructions: Hold if creatinine is more than 0.5 mg/dL above the baseline amlodipine 5 mg tablet 5 mg PO DAILY Qty: 90 3RF pravastatin 40 MG tablet 40 mg PO QHS Patient Comments: CHOLESTEROL levothyroxine 25 mcg tablet 25 mcg PO DAILY apixaban 2.5 mg tablet 2.5 mg PO BID Qty: 60 1RF metoprolol tartrate 25 mg tablet 25 mg PO BID Qty: 180 3RF Referrals / Follow Up: Bernard Nugent Chi, MD [Primary Care Provider] - In 1 Week (Dr. 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) Disposition Disposition (needs filled in before D/C Order can be placed): Home, Self Care
--- NOTE | 2024-11-14 10:20 | DS.PCM_ITS ---
Providers Date of Admission: 11/11/24 Date of Discharge: 11/14/24 Primary Care Physician: Dr. Bernard Nugent MD Consultations 11/13/24 14:32 Consult: Gastroenterology Routine Consulting Provider: [facility] Reason for Consult: diarrhea, past history of adenoma EMERGENT Consult: No MD Notified: Yes Date Notified: 11/13/24 Time Notified: 14:32 Method of Notification: Verbal Reason For Visit: RECTAL PAIN COLITIS Diagnosis Discharge Diagnosis (1) Occult GI bleeding: Status: Acute Code(s): R19.5 - Other fecal abnormalities (2) Colitis: Status: Acute Code(s): K52.9 - Noninfective gastroenteritis and colitis, unspecified Plan 1. Acute colitis-patient will remain on IV antibiotics and a clear liquid diet for now, patient is on IV Zosyn #2 atrial fibrillation-patient is on Eliquis and metoprolol #3 chronic kidney disease stage IIIa-monitor BMP as necessary #4 type 2 diabetes-patient is on sliding scale insulin and fingerstick blood sugars. #5 diarrhea-etiology unclear Total clinical time spent by myself addressing the patient's medical issues, reviewing all of his data, and collaborating with patient's care team: 35 minutes Medications at Discharge Home Medications pravastatin 40 mg tablet 40 mg PO QHS cholesterol 09/19/14 levothyroxine 25 mcg tablet 25 mcg PO DAILY 02/20/24 apixaban 2.5 mg tablet 2.5 mg PO BID blood thinner #60 tabs 03/27/24 amlodipine 5 mg tablet 5 mg PO DAILY #90 tabs 03/31/24 furosemide 40 mg tablet 40 mg PO Q OTHER DAY PRN edema 03/31/24 losartan 100 mg tablet 100 mg PO QDAY 03/31/24 metoprolol tartrate 25 mg tablet 25 mg PO BID #180 tabs 08/18/24 dicyclomine 20 mg tablet 20 mg PO TID #30 tabs 11/14/24 loperamide 2 mg capsule 4 mg (2 x 2 mg) PO TID PRN Diarrhea #1 cap 11/14/24 Hospital Course Operations None Procedures None Summary of Care Provided Minutes Spent on Discharge: 31 Hospital Course: This 89-year-old white male was seen in the emergency room at [facility] with complaints of rectal pain and diarrhea. Patient had a previous colon resection performed approximately 13 years prior and had a right hemicolectomy done at that time for a villous adenoma. Patient stated that he had not undergone a repeat colonoscopy for approximately 10 years. Patient's labs revealed his white blood cell count to be 11.4, hemoglobin was 12.8, creatinine was 1.46 and BUN was 20. Patient's total bilirubin was 2.12 and alkaline phosphatase was 142. Patient's urinalysis was unremarkable, CT of the abdomen and pelvis showed wall thickening and surrounding fat stranding of the distal rectum which could represent infectious or inflammatory colitis. Patient had moderate diverticulosis in the colon. Patient was admitted to [place] [address], he was placed on IV antibiotics, he continued to have stools but they were mostly smears on his depends. Patient's stool for enteric pathogen's and C. difficile was negative. There was a consideration to doing a sigmoidoscopy but it was not able to be performed due to scheduling conflicts and endoscopy. On 11/14/2024, patient was seen and examined: On examination he appeared in good health and spirits. Vital signs as documented. Skin warm and dry and without overt rashes. Neck without JVD, neck was supple, trachea midline, thyroid was normal. Lungs clear bilaterally, normal air movement was noted. Heart exam notable for regular rhythm, normal sounds and absence of murmurs, rubs or gallops. Abdomen unremarkable and without evidence of organomegaly, masses, or abdominal aortic enlargement. Bowel sounds are present, abdomen is not distended. Extremities nonedematous, no cyanosis was noted, no clubbing was noted. Neuro: Cranial nerves II through XII are grossly intact, no focal motor deficits were noted, sensation to light touch and pinprick intact, motor exam 5/5 throughout. Psych: Patient is alert and oriented x3, he does not appear anxious or depressed, he does not appear agitated. Patient was discharged home in stable condition on 11/14/2024, he was instructed to follow-up with his PCP regarding obtaining a colonoscopy, he was placed on Bentyl and Imodium as an outpatient to lessen his diarrhea. The etiology of his diarrhea was not understood. Weight / BMI Weight Weight: 90.5 kg Body Mass Index (BMI) 28.5 ABG / Lab / Microbiology Data 11/12/24 06:20 11/12/24 06:20 Laboratory: Laboratory Results - last 24 hr 11/13/24 11:09: POC Glucose 230 H 11/13/24 16:27: POC Glucose 137 H 11/13/24 23:35: POC Glucose 103 11/14/24 06:19: POC Glucose 82 Microbiology: Microbiology 11/11/24 10:17 Stool Enteric Bacteriology - Final 11/11/24 10:17 Stool Clostridioides difficile (PCR) - Final 11/11/24 18:56 Stool Stool Occult Blood (CHERRY) - Final Occult Blood Positive D/C Instructions Discharge Diet: No restrictions Weight Bearing Status: Full weight bearing DC O2, CPAP, BIPAP Needs Home O2 Discharge instructions: No Meaningful Use Info Meaningful Use Meaningful Use Diagnoses (Choose all that apply): None applicable Ischemic Stroke Statin Dosing Therapy Reference: STATIN DOSE THERAPY REFERENCE: * Patients > 75 years receive moderate or high dose statin therapy. * Patients 75 years or YOUNGER should receive HIGH intensity statin dose unless contraindicated. You will be required to document reason for non-treatment if statin daily dose does not meet guidelines. HIGH DOSE STATIN THERAPY DAILY Atorvastatin > than or = to 40 mg Rosuvastatin > than or = to 20 mg Amlodipine + Atorvastatin > than or = to 2.5/40 mg Ezetimibe + Simvastatin 10/80 mg Simvastatin 80mg Discharge Plan Admission Admit Date/Time: 11/11/24 22:26 Primary Reason for Your Visit: Diarrhea, hematochezia (blood in stool) Attending Provider: Ankit Last Primary Care Provider: Bernard Nugent Chi Consulting Providers: Unique Salazar Instructions Additional Instructions / Restrictions: You may obtain loperamide [id number] to take as needed for diarrhea Discharge Orders/Prescriptions Prescriptions: New loperamide 2 mg Capsule 4 mg PO TID PRN (Reason: Diarrhea) Qty: 1 0RF Rx Instructions: You may take loperamide 2 to 4 mg 3 times a day as needed for loose stools and diarrhea dicyclomine 20 mg tablet 20 mg PO TID Qty: 30 0RF Continued losartan 100 mg tablet 100 mg PO QDAY furosemide 40 mg tablet 40 mg PO Q OTHER DAY PRN (Reason: edema) Rx Instructions: Hold if creatinine is more than 0.5 mg/dL above the baseline amlodipine 5 mg tablet 5 mg PO DAILY Qty: 90 3RF pravastatin 40 MG tablet 40 mg PO QHS Patient Comments: CHOLESTEROL levothyroxine 25 mcg tablet 25 mcg PO DAILY apixaban 2.5 mg tablet 2.5 mg PO BID Qty: 60 1RF metoprolol tartrate 25 mg tablet 25 mg PO BID Qty: 180 3RF Referrals / Follow Up: Bernard Nugent Chi, MD [Primary Care Provider] - In 1 Week (Dr. 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) Disposition Disposition (needs filled in before D/C Order can be placed): Home, Self Care Charges/Coding Visit Charges Inpatient E&M: 44817 Disch Hosp >30min
[2024-11-14 11:27] VITALS: BP 159/70; PULSE 61; RESP 16; TEMP 36.4; O2SAT 99
[2024-11-14 11:35] LABS: Bedside Glucose 186 mg/dL (74-106)
--- NOTE | 2024-11-14 13:17 | CASEMGMT ---
Pt Daughter, Chelsy from [place] calls this RN CM requesting pvt duty aid for the pt as the pt lives alone. This RN CM provided the pt daughter with a list of local pvt duty aid with agency names, rates, and contact information. Chelsy thanks this RN CM and denies further needs/ concerns. Pt has already left the hospital by this time.
== END 2024-11-14 13:11 | disposition home or self-care (01) | DRG 392 ==
LOC: ED 18:06 → MS3 22:46
PROVIDERS: Admitting Provider Family Medicine; Emergency Provider Emergency Medicine; PCP Family Medicine Geriatric Medicine; Visit Provider Internal Medicine
DX: A09 Infectious gastroenteritis and colitis, unspecified (principal); I47.20 Ventricular tachycardia, unspecified; E11.22 Type 2 diabetes mellitus with diabetic chronic kidney disease; D64.9 Anemia, unspecified; E03.9 Hypothyroidism, unspecified; E78.5 Hyperlipidemia, unspecified; Z66 Do not resuscitate; Z51.5 Encounter for palliative care; N18.31 Chronic kidney disease, stage 3a; I12.9 Hypertensive chronic kidney disease with stage 1 through stage 4 chronic kidney disease, or unspecified chronic kidney disease; G47.33 Obstructive sleep apnea (adult) (pediatric); I48.0 Paroxysmal atrial fibrillation; K21.9 Gastro-esophageal reflux disease without esophagitis; K57.30 Diverticulosis of large intestine without perforation or abscess without bleeding; Z83.3 Family history of diabetes mellitus; Z95.0 Presence of cardiac pacemaker; Z79.01 Long term (current) use of anticoagulants; Z90.49 Acquired absence of other specified parts of digestive tract
CPT/HCPCS: 36415; 74177; 80053; 81001; 82274; 82962; 83735; 84100; 84145; 85025; 87493; 87506; 94668; 97802; 99284; Q9967; A4216

== ENCOUNTER 2024-12-03 12:19 | Inpatient (IN) | payer MEDICARE, SELFPAY ==
[2024-12-03 12:20] VITALS: BP 164/71; PULSE 60; RESP 18; TEMP 36.6; O2SAT 97; BMI 28.4
--- NOTE | 2024-12-03 12:28 | EDS_ITS ---
<Statement entered by Damien Welch DO - 12/05/24 15:14> Patient was seen and examined with physician certified registered dental assistant Carley All components of the history and physical confirmed and agreed. History of present illness and physical exam: Patient is a 89-year-old male with past medical history of atrial fibrillation on Eliquis, chronic kidney disease, type 2 diabetes, hemicolectomy, hyponatremia, aortic aneurysm who states that about 3 weeks ago he developed rectal pain and diarrhea. He had previous hemicolectomy approximately 13 years ago for polyps. He states that he had a colonoscopy about 10 years ago. He notes that he was admitted to the hospital recently for colitis and was treated with IV antibiotics. He had negative stool studies according to records. States that he still having diarrhea multiple times a day and states that he took Imodium this morning he notes that he was having some difficulty urinating as well therefore he came here for further evaluation management. Review of systems: Agree with above Physical exam: Agree with above MDM Patient is a 89-year-old male who presented to the emergency department chief complaint of ongoing rectal pain, diarrhea and difficulty urinating. On the differential diagnosis includes but not limited to UTI, urinary retention, acute kidney injury, electrolyte abnormality. Once workup is obtained reviewed he will be reevaluated. Patient CBC reviewed showed no evidence leukocytosis white blood count normal at 10.2, he was 12.5, platelet count of 233. Patient's sodium normal 135, potassium normal at 4, creatinine was 1.21, urinalysis reviewed showed no evidence of infection. Postvoid residual was noted be 400 cc Puente catheter was placed. At this point time given his abdominal exam and his laboratory values do not believe that CT imaging is indicated at this point in time as his abdomen is benign and his diarrhea is unchanged. Was noted that the patient secondary to his macular degeneration was having significant difficulty with managing the Puente catheter therefore discussed case with hospitalist for admission. Patient was accepted for admission to the hospital under the hospitalist service for observation patient is agreeable to this plan. Final impression: Urinary retention History of macular degeneration Diarrhea Disposition: Patient will be admitted to the hospital for further evaluation management Supervising attending attestation: Damien Welch D.O. HPI History of Present Illness Chief Complaint: Complaint Narrative Narrative: 89-year-old male with past medical history of A-fib on Eliquis, CKD, DM 2, hemicolectomy, hyponatremia, aortic aneurysm without rupture states 3 weeks ago he d developed rectal pain and diarrhea. He had a previous hemicolectomy approximately 13 years ago for polyps. No history of colon cancer. Has not had a colonoscopy in at least 10 years. He was admitted from 11/11 through 11/[address] scan showed colitis of the rectum and he was treated with IV Zosyn and fluids. He had negative stool studies. He followed up with Dr. Nugent and trialed Imodium and took 6 tablets the first day and was told to cut down and only use it as needed. States he is still having diarrhea multiple times a day so he took 1 Imodium this morning. He has not noticed it looking black or bloody but he is vision impaired. He is scheduled for a colonoscopy in December. He denies fever or chills, nausea or vomiting, or decreased p.o. intake. External records reviewed: C. difficile and enteric pathogen stool panel is negative on 11/11/2024 [facility] Medical History NSVT (nonsustained ventricular tachycardia) Aortic aneurysm without rupture Non-smoker Sleep apnea Atrial fibrillation Hypertension Chronic renal insufficiency, stage III (moderate) Closed head injury Fall Longstanding persistent atrial fibrillation Obstructive sleep apnea Right bundle branch block (RBBB) with left anterior fascicular block Left ventricular diastolic dysfunction Obesity Essential (primary) hypertension Nonrheumatic mitral (valve) insufficiency Non-rheumatic tricuspid valve insufficiency Paroxysmal atrial fibrillation Hyperlipidemia Diverticulosis Type 2 diabetes mellitus Diverticulitis large intestine Diverticula of colon Home Medications ?Medication ?Instructions ?Recorded ?Last Taken ?Type levothyroxine 25 mcg tablet 25 mcg PO DAILY 02/20/24 U nknown History apixaban 2.5 mg tablet 2.5 mg PO BID blood thinner #60 03/27/24 Unknown Rx tabs amlodipine 5 mg tablet 5 mg PO DAILY #90 tabs 03/31 Unknown Rx losartan 100 mg tablet 100 mg PO QDAY 03/31/24 Unkn own History metoprolol tartrate 25 mg tablet 25 mg PO BID #180 tab s 08/18/24 Unknown Rx dicyclomine 20 mg tablet 20 mg PO TID #30 tabs Unknown Rx citalopram 10 mg tablet 10 mg PO QDAY 11/25/24 Unkno wn History furosemide 40 mg tablet 40 mg PO .QSATSUN edema 02/11 Unknown History glimepiride 1 mg tablet 1 mg PO QDAY 11/25/24 Unknow n History loperamide 2 mg capsule 2 mg PO TID PRN Diarrhea 02/11 Unknown History pravastatin 40 mg tablet 40 mg PO QHS cholesterol 03/13 Unknown History Allergy/AdvReac Type Severity Reaction Status Date / Time codeine AdvReac Other Verified 12/03/24 12:22 lisinopril AdvReac Other Verified 12/03/24 12:22 Family History Father CVA (cerebral vascular accident) Mother Diabetes Sister Heart disease PPM Surgical History History of appendectomy History of cataract surgery History of tonsillectomy H/O hemicolectomy Hx of cholecystectomy Social History (Updated 11/25/24 @ 07:51 by Sanjana Gallegos) household members: none housing: senior care Smoking Status: Former smoker Smokeless tobacco user: other alcohol intake: current alcohol intake frequency: holidays/special occasions only substance use type: does not use ROS ROS ED ROS Narrative Constitutional: Negative for fever, chills, malaise. CVS: Negative for chest pain. Respiratory: Negative for shortness of breath, cough. GI: Positive for suprapubic abdominal pain, diarrhea. No nausea or vomiting. : Negative for dysuria, hematuria. EXAM Physical Exam Narrative Exam Narrative: CONST: Patient sitting in no acute distress. EYES: Normal inspection. ENT: Normal inspection, moist mucous membranes. NECK: Normal inspection. RESP: No respiratory distress, CTAB. CVS: Regular rate and rhythm, no murmur, no gallop. ABD: Soft with suprapubic tenderness, no guarding or rebound, nondistended, no hepatosplenomegaly. SKIN: Color normal, no rash, warm, dry, intact. EXTREMITIES: Normal appearance, no pedal edema. NEURO: Alert and answering questions appropriately. PSYCH: Normal affect. Const Vital Signs: 12/03/24 12:20 12/03/24 15:10 Temperature 98 F Temperature Source Oral Pulse Rate 60 63 Respiratory Rate 18 18 Blood Pressure 164/71 H 147/84 H Blood Pressure Mean 102 105 Pulse Ox 97 91 Oxygen Delivery Method Room Air Room Air MDM MDM MDM Narrative Medical decision making narrative: Differential includes but not limited to urinary retention, UTI, ANISH 59-year-old male presents with ongoing rectal pain and diarrhea and difficulty urinating. He was recently treated for colitis due to the above symptoms and is scheduled for a colonoscopy next month. He is awake alert no distress. Vital stable. Moist mucous membranes. Normal cardiopulmonary exam. Abdomen is soft with mild suprapubic tenderness but no peritoneal signs. He has no flank pain. Labs overall look improved from his prior admission with white count of 10.2 and hemoglobin is 12.5 which is trending up. Electrolytes are normal. Creatinine of 1.21 is baseline. Postvoid residuals over 400 cc so a Puente catheter was placed. Urinalysis is negative. I do not think CT imaging is indicated as he does not really have abdominal pain and does not have a leukocytosis. His chronic diarrhea can be evaluated at his outpatient gastroenterology appointment. Initially I plan to discharge the patient home with a leg bag and outpatient urology follow-up. 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 Nursing staff trying to show him how to clamp and unclamp the Puente and he cannot see what he is doing. It is also a fall risk with the tubing. I discussed the case with the hospitalist for observation. History & Record Review Discussion w/independent historian: Patient Additional record(s) reviewed:: Prior inpatient record, Prior ED visit and Prior labs Lab Data Attestation: I reviewed the patient's lab results. Labs: Laboratory Results - last 24 hr 12/03/24 12/03/24 12:50 14:20 WBC 10.2 RBC 4.05 L Hgb 12.5 L Hct 36.4 L MCV 89.9 MCH 30.9 MCHC 34.3 RDW Std Deviation 45.0 H RDW Coeff of Lisa 13.7 Plt Count 233 MPV 11.2 Immature Gran % (Auto) 0.500 Neut % (Auto) 79.2 H Lymph % (Auto) 9.4 L [place] % (Auto) 8.9 Eos % (Auto) 1.5 Baso % (Auto) 0.5 Absolute Neuts (auto) 8.1 H Absolute Lymphs (auto) 0.95 Nucleated RBC % 0 Sodium 135 Potassium 4.0 Chloride 99 Carbon Dioxide 25.1 Anion Gap 11 BUN 14 Creatinine 1.21 H Estim Creat Clear Calc 46.69 L Est GFR (MDRD) Non-Af 57 L BUN/Creatinine Ratio 11.7 Glucose 127 H Calcium 8.9 Urine Color Yellow Urine Clarity Clear Urine pH 7.0 Ur Specific [place] 1.010 Urine Protein 30 H Urine Glucose (UA) Normal Urine Ketones Negative Urine Occult Blood 10 H Urine Nitrite Negative Urine Bilirubin Negative Urine Urobilinogen Normal Ur Leukocyte Esterase Negative Urine RBC 0 SEEN Urine WBC 0 SEEN Ur Squamous Epith Cells 0 SEEN Urine Bacteria 0 SEEN Urine Mucus 0 SEEN Discharge Plan Triage Chief Complaint: Complaint ED Midlevel Provider: Carley Clarke ED Provider: Damien Welch Dx/Rx/DC Orders Clinical Impression: Chronic diarrhea, Acute urinary retention, Impaired vision, Macular degenerati on Instructions: ED Puente Catheter, Care, ED Urinary Retention, Male Prescriptions: No Action losartan 100 mg tablet 100 mg PO QDAY amlodipine 5 mg tablet 5 mg PO DAILY Qty: 90 3RF furosemide 40 mg tablet 40 mg PO .QSATSUN Rx Instructions: Hold if creatinine is more than 0.5 mg/dL above the baseline loperamide 2 mg capsule 2 mg PO TID PRN (Reason: Diarrhea) Rx Instructions: You may take loperamide 2 to 4 mg 3 times a day as needed for loose stools and diarrhea citalopram 10 mg tablet 10 mg PO QDAY glimepiride 1 mg tablet 1 mg PO QDAY pravastatin 40 mg tablet 40 mg PO QHS Patient Comments: CHOLESTEROL levothyroxine 25 mcg tablet 25 mcg PO DAILY dicyclomine 20 mg tablet 20 mg PO TID Qty: 30 0RF apixaban 2.5 mg tablet 2.5 mg PO BID Qty: 60 1RF metoprolol tartrate 25 mg tablet 25 mg PO BID Qty: 180 3RF Primary Care Provider: Bernard Nugent Chi Referrals: Shahram Ortega MD [Med Staff - Active Staff] - Bernard Nugent Chi, MD [Primary Care Provider] - Activity Restrictions/Additional Instructions: Your bladder was not draining urine properly so a Puente catheter was placed. There is no signs of urinary tract infection. Call the urology office for an appointment. Keep your colonoscopy as scheduled to evaluate the ongoing diarrhea. Drink plenty of fluids. Print Language: Eritrean Disposition Disposition: Home, Self Care
[2024-12-03 13:02] LABS: Hematocrit 36.4 % (40-54); Hemoglobin 12.5 g/dL (13.0-16.5); Immature Granulocytes Count 0.050 X10^3/uL (0.0-0.0); Mean Corp Hgb Conc 34.3 g/dL (32-36); Mean Corpuscular Volume 89.9 fL (80-94); Mean Platelet Vol. 11.2 fl (6.2-12.0); NRBC Flagged by Analyzer 0 % (0-5); Platelet Count 233 K/mm3 (150-450); RBC Distribution Width CV 13.7 % (11.6-14.6); RBC Distribution Width SD 45.0 fl (35.1-43.9); Red Blood Count 4.05 M/mm3 (4.6-6.2); White Blood Count 10.2 K/mm3 (4.4-11.0)
[2024-12-03 13:32] LABS: Anion Gap 11 (5-15); BUN 14 mg/dL (4-19); BUN/Creat Ratio 11.7 RATIO (10-20); Calcium,Total 8.9 mg/dL (7.6-11.0); Carbon Dioxide 25.1 mmol/L (21.0-32.0); Chloride 99 mmol/L (98-108); Estimated Creatinine Clearance 46.69 ml/min (50-250); Glucose 127 mg/dL (70-99); Potassium 4.0 mmol/L (3.3-5.1)
[2024-12-03 14:34] LABS: Mucous, Urine 0 SEEN /hpf (<or=2+); Red Blood Cells-Urine 0 SEEN /hpf (0-5); Squamous Epithelial Cells - UA 0 SEEN /hpf (0-5)
[2024-12-03 14:35] LABS: Color, Urine Yellow (Yellow); Glucose, Dipstick Normal (Normal); Ketone-Dipstick Negative (Negative); Leukocyte Esterase-Dipstick Negative /ul (Negative); Nitrite-Dipstick Negative (Negative); Occult Blood-Urine 10 /ul (Negative); Protein-Dipstick 30 mg/dl (Negative); Specific Gravity, Urine 1.010 (1.002-1.030); Urine Bilirubin Dipstick Negative (Negative)
[2024-12-03 15:10] VITALS: BP 147/84; PULSE 63; RESP 18; O2SAT 91
--- NOTE | 2024-12-03 15:36 | ED.RN ---
WHEN THIS RN GOES IN TO DISCHARGE PT AND GIVE INSTRUCTIONS ON LEG BAG, PT TELLS THIS RN THAT HE IS VISUALLY IMPAIRED AND HE LIVES ON HIS OWN. PT IS UNABLE TO CARE FOR CATHETER AT HOME. ANDRES MORAN MADE AWARE AT THIS TIME.
--- NOTE | 2024-12-03 15:44 | HP.PCM.HOS_ITS ---
HPI - General General Date of Admission: 12/03/24 Date of Service: 12/03/24 Chief Complaint: Persistent diarrhea and difficulty with urination HPI Narrative ASHIA PEREZ, is a 89 M who presented to [facility] ED on 12/03/2024 with persistent diarrhea and difficulty with urination. Patient was recently hospitalized here in late October for diarrhea and rectal pain and found to have acute colitis. Has history of right hemicolectomy for villous adenoma so there was concern for potential recurrence or new pathology. However, patient deferred colonoscopy while inpatient with plan to have it done in the outpatient setting. Stool PCR was negative during the hospitalization, and he was started on Bentyl and Imodium with mild improvement in symptoms. He saw GI in the office on 11/26 and noted that he continued to have diarrhea with some rectal pain. He had the right hemicolectomy done at a different institution and plan is to have colonoscopy done there in December. He presented today with persistent diarrhea and now difficulty with urination. In the ED vitals were stable and patient was nontoxic-appearing per ED physician. Labs were stable as well. However, he was found to have a postvoid residual over 400 cc so Puente catheter was placed. 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 He lives in a small apartment and states he is able to get around to the apartment but has difficulty going anywhere else. Nursing staff attempted to show him how to clamp and unclamp the Puente but he could not see but he was doing. Given concern for safe discharge and some degree of ongoing weakness, hospitalist was contacted for admission. I saw the patient at bedside in the ED. Patient was sitting back comfortably in bed, conversing normally, in no acute distress. He denied any pain or discomfort currently. Denies any issues with Puente catheter. Will be admitted for further management. [facility] [place] Medical History (Updated 12/03/24 @ 17:08 by Shauna Pham) Pacemaker Occult GI bleeding NSVT (nonsustained ventricular tachycardia) Aortic aneurysm without rupture Non-smoker Sleep apnea Atrial fibrillation Hypertension Chronic renal insufficiency, stage III (moderate) Closed head injury Fall Longstanding persistent atrial fibrillation Obstructive sleep apnea Right bundle branch block (RBBB) with left anterior fascicular block Left ventricular diastolic dysfunction Obesity Essential (primary) hypertension Nonrheumatic mitral (valve) insufficiency Non-rheumatic tricuspid valve insufficiency Paroxysmal atrial fibrillation Hyperlipidemia Diverticulosis Type 2 diabetes mellitus Diverticulitis large intestine Diverticula of colon Home Medications ?Medication ?Instructions ?Recorded ?Last Taken ?Type levothyroxine 25 mcg tablet 25 mcg PO DAILY 02/20/24 U nknown History apixaban 2.5 mg tablet 2.5 mg PO BID blood thinner #60 03/27/24 Unknown Rx tabs amlodipine 5 mg tablet 5 mg PO DAILY #90 tabs 03/31 Unknown Rx losartan 100 mg tablet 100 mg PO QDAY 03/31/24 Unkn own History metoprolol tartrate 25 mg tablet 25 mg PO BID #180 tab s 08/18/24 Unknown Rx dicyclomine 20 mg tablet 20 mg PO TID #30 tabs Unknown Rx loperamide 2 mg capsule 2 mg PO TID PRN Diarrhea 02/11 Unknown History pravastatin 40 mg tablet 40 mg PO QHS cholesterol 03/13 Unknown History Allergy/AdvReac Type Severity Reaction Status Date / Time codeine AdvReac Other Verified 12/03/24 12:22 lisinopril AdvReac Other Verified 12/03/24 12:22 Family History Father CVA (cerebral vascular accident) Mother Diabetes Sister Heart disease PPM Surgical History History of appendectomy History of cataract surgery History of tonsillectomy H/O hemicolectomy Hx of cholecystectomy Social History (Updated 11/25/24 @ 07:51 by Sanjana Gallegos) household members: none housing: correction Smoking Status: Former smoker Smokeless tobacco user: other alcohol intake: current alcohol intake frequency: holidays/special occasions only substance use type: does not use ROS Constitutional Constitutional: Reports weakness; Denies chills, fatigue or fever(s) Eyes Eyes: Denies change in vision Cardiovascular Cardiovascular: Denies chest pain Respiratory/Chest Respiratory/Chest: Denies shortness of breath at rest Gastrointestinal Gastrointestinal: Reports diarrhea; Denies abdominal pain, constipation, nausea or vomiting Genitourinary Genitourinary: Reports difficulty urinating; Denies dysuria Musculoskeletal Musculoskeletal: Denies arthralgias or myalgias Vital Signs Vital Signs Vital Signs: 12/03/24 12:20 12/03/24 15:10 Temperature 98 F Temperature Source Oral Pulse Rate 60 63 Respiratory Rate 18 18 Blood Pressure 164/71 H 147/84 H Blood Pressure Mean 102 105 Pulse Ox 97 91 Oxygen Delivery Method Room Air Room Air Weight Weight: 89.896 kg Body Mass Index (BMI) 28.4 Physical Exam Const alert, oriented x3, no apparent distress and average body habitus Constitutional Narrative: Elderly male, mentally sharp but very poor sight with left eye blindness and severe right eye macular degeneration, mildly fatigued appearing but otherwise sitting back comfortably in bed, conversing normally, in no acute distress. General Appearance: cooperative and comfortable HEENT normocephalic, head/scalp atraumatic, hearing grossly normal bilaterally, nasal mucous membranes and turbinates normal and moist oral mucous membranes Eyes PERRL, EOMs intact bilaterally and conjunctivae normal Neck full ROM Chest inspection of chest normal Resp normal respiratory effort, normal air movement, no use of accessory muscles and clear to auscultation bilaterally Cardio regular rate, regular rhythm, no murmurs and peripheral pulses 2+ throughout GI normal to inspection, nondistended, normoactive bowel sounds, soft to palpation, non-tender and non-distended no CVA tenderness Bladder / Kidney Exam: catheter in place and bladder normal to palpation Back/Spine normal ROM Extremity normal to inspection, full ROM and no pedal edema Skin no rashes or lesions noted Psych mental status grossly normal Results Lab / Micro Data 12/03/24 12:50 12/03/24 12:50 Labs: Laboratory Results - last 24 hr 12/03/24 12:50: WBC 10.2, RBC 4.05 L, Hgb 12.5 L, Hct 36.4 L, MCV 89.9, MCH 30.9, MCHC 34.3, RDW Std Deviation 45.0 H, RDW Coeff of Lisa 13.7, Plt Count 233, MPV 11.2, Immature Gran % (Auto) 0.500, Neut % (Auto) 79.2 H, Lymph % (Auto) 9.4 L, Union % (Auto) 8.9, Eos % (Auto) 1.5, Baso % (Auto) 0.5, Absolute Neuts (auto) 8.1 H, Absolute Lymphs (auto) 0.95, Nucleated RBC % 0, Sodium 135, Potassium 4.0, Chloride 99, Carbon Dioxide 25.1, Anion Gap 11, BUN 14, Creatinine 1.21 H, Estim Creat Clear Calc 46.69 L, Est GFR (MDRD) Non-Af 57 L, BUN/Creatinine Ratio 11.7, Glucose 127 H, Calcium 8.9 12/03/24 14:20: Urine Color Yellow, Urine Clarity Clear, Urine pH 7.0, Ur Specific [employer] 1.010, Urine Protein 30 H, Urine Glucose (UA) Normal, Urine Ketones Negative, Urine Occult Blood 10 H, Urine Nitrite Negative, Urine Bilirubin Negative, Urine Urobilinogen Normal, Ur Leukocyte Esterase Negative, Urine RBC 0 SEEN, Urine WBC 0 SEEN, Ur Squamous Epith Cells 0 SEEN, Urine Bacteria 0 SEEN, Urine Mucus 0 SEEN Assessment & Plan Assessment/Plan (1) Acute urinary retention: PLAN: Plan Patient is an 89-year-old male who presented to [facility] ED on 12/03/2024 with persistent diarrhea and difficulty with urination. 1. Acute urinary retention ? Admit under observation status to [facility]. No prior history of urinary retention. Had greater than 400 cc of postvoid residual volume so Puente catheter placed in the ED. Suspect acute colitis with concern for recurrent colonic malignancy as below is contributing to urinary retention. Patient lives at home alone and has very poor vision as below. Will need to discuss with case management on resources available to help with Puente catheter management. No inpatient neurology needs, will need close outpatient follow-up. 2. Mild acute on chronic debility with significant vision impairment ? PT/OT/case management consulted. Patient lives at home alone as above in a small apartment. Feels slightly weaker than baseline but still with decent functional status. Appreciate therapy and case management recommendations. 3. Persistent diarrhea with recent acute colitis, history of right hemicolectomy for villous adenoma ? See HPI for further details. In short, CT scan in late October showed acute colitis. However, has history of right hemicolectomy for villous adenoma so there is concern for possible recurrent malignancy and patient has colonoscopy scheduled in December. Continue home Imodium and Bentyl for symptom management. Chronic medical conditions: ? 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 Continue home Eliquis, amlodipine, Lopressor, losartan and pravastatin. ? CKD stage IIIa: Creatinine 1.21 on admit, at baseline. ? Hypothyroidism: Continue home Synthroid. DVT prophylaxis: Not indicated, on Eliquis CODE STATUS: DNR-CCA, okay to intubate Expected disposition: TBD Total clinical time spent by myself addressing the patient's medical issues, reviewing all the data, and collaborating with patient's care team: 75 minutes. Charges/Coding Visit Charges Inpatient E&M: 16612 Init Hosp L3
[2024-12-03 16:10] VITALS: BP 136/77; PULSE 61; RESP 16; TEMP 36.7; O2SAT 95
[2024-12-03 16:52] VITALS: BMI 27.8
--- NOTE | 2024-12-03 16:55 | CASEMGMT ---
Social Work Face to face assessment completed less than 30 days ago, SW verified no changes to previous information. Patient did state that he feels he may need HH upon discharge to help with figueroa, patient also states he would like assistance with cooking and cleaning. Mile Alvarez, [employer], AEROSPACE MEDICINE PHYSICIAN
[2024-12-03 17:00] VITALS: BP 168/70; PULSE 90; RESP 18; TEMP 36.4; O2SAT 95
--- OUTSIDE RECORDS SUMMARY | 2024-12-03 20:43 | XMS RPT_ITS | CCD ---
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 Bernard Nugent Chi Referring Provider Roof BEHAVIORAL SCIENTIST, BEHAVIORAL SCIENTIST-C Evin Clayton Attending Provider Dr. Roger Gonzalez [...] Raffi, Dr. Bernard Reardon Referring Provider Roof BEHAVIORAL SCIENTIST, BEHAVIORAL SCIENTIST-C Evin Clayton Attending Provider Dr. Roger Gonzalez Emergency Provider Roger, Dr. Mcguire Admit Provider Roger, Dr. Mcguire Attending Provider Roger, Dr. Mcguire Other Provider Rubin, Dr. Warner Other Provider Irene CAMPOS, PA Muriel Storey Attending Provider Dr. Tam Albrecht Attending Provider Dr. Salvatore Lyman Attending Provider [phone] Raffi, Dr. Bernard Reardon Primary Care Provider Raffi, Dr. Bernard Reardon Referring Provider Roof BEHAVIORAL SCIENTIST, BEHAVIORAL SCIENTIST-C Evin Clayton Attending Provider Raffi, Dr. Bernard Reardon Primary Care Provider Raffi, Dr. Bernard Reardon Referring Provider Roof BEHAVIORAL SCIENTIST, BEHAVIORAL SCIENTIST-C Evin Clayton Attending Provider Dr. Rodolfo Tobias Attending Provider [phone] Rdoolfo Tobias Referring Provider [phone] Rodolfo [...] Provider Jacqui Bell Attending Provider Unavailable Torsten BEHAVIORAL SCIENTIST, BEHAVIORAL SCIENTIST-Jean Paul Clayton Attending Provider Raffi, Dr. Bernard Reardon Primary Care Provider Raffi, Dr. Bernard Reardon Referring Provider Torsten BEHAVIORAL SCIENTIST, BEHAVIORAL SCIENTIST-Jean Paul Clayton Attending Provider Jatinder, Dr. Reynolds Attending Provider [phone] Jatinder, Dr. Reynolds Referring Provider [phone] Raffi, Dr. Bernard Reardon Primary Care Provider Jatinder, Dr. Reynolds Attending Provider [phone] Jatinder, Dr. Reynolds Referring Provider [phone] Raffi, Dr. Bernard Reardon Primary Care Provider aJtinder, Dr. Reynolds Attending Provider [phone] Jatinder, [...] Dr. Bernard Reardon Primary Care Provider [phone] Raffi AZEVEDO, Dr. Bernard Reardon Attending Provider Raffi AZEVEDO, Dr. Bernard Reardon Referring Provider Jatinder AZEVEDO, Dr. Reynolds Attending Provider Jatinder AZEVEDO, Dr. Reynolds Referring Provider Campbell FALCON, Dr. Chase Attending Provider Campbell FALCON, Dr. Chase Referring Provider Campbell FALCON, Dr. Chase Emergency Provider Raffi AZEVEDO, Dr. Bernard Reardon Primary Care Provider Raffi AZEVEDO, Dr. Bernard Reardon Attending Provider Raffi AZEVEDO, Dr. Bernard Reardon Referring Provider Jatinder AZEVEDO, Dr. Reynolds Attending Provider Jatinder AZEVEDO, Dr. Reynolds Referring Provider Raffi AZEVEDO, Dr. Bernard Reardon Primary Care Provider Raffi AZEVEDO, Dr. Bernard Reardon Primary Care Provider Raffi AZEVEDO, Dr. Bernard Reardon Attending Provider Raffi AZEVEDO, Dr. Bernard Reardon Referring Provider Farzad FALCON, Dr. Latif Emergency Provider Martin AZEVEDO, Dr. Unique Granados Admit Provider Martin AZEVEDO, Dr. Unique Granados Attending Provider Martin AZEVEDO, Dr. Unique Granados Other Provider Shala FALCON, Dr. Pham Attending Provider Shala FALCON, Dr. Pham Other Provider Raffi AZEVEDO, Dr. Bernard Reardon Primary Care Provider Raffi AZEVEDO, Dr. Bernard Reardon Attending Provider Raffi AZEVEDO, Dr. Bernard Reardon Referring Provider Ximena Philip Attending Provider Bernard Nugent Chi Referring Unavailable Raffi, Bernard Chi Attending Unavailable Raffi, Bernard Chi Primary Care Unavailable Raffi, Bernard Chi Attending Unavailable Raffi, Bernard Chi Primary Care Unavailable Raffi, Bernard Chi Attending Unavailable Raffi, Bernard Chi Referring Unavailable Raffi, Bernard Chi Primary Care Unavailable Raffi, Bernard Chi Primary Care Unavailable Ximena Armstrong Attending Unavailable Raffi, Bernard Chi Referring Unavailable Jatinder, Rodolfo Referring Unavailable Jatinder, Hiram Attending Unavailable Raffi, Bernard Chi Primary Care Unavailable Raffi, Bernard Chi Primary Care Unavailable White, Unique L Consulting Unavailable White, Unique L Attending Unavailable White, Unique L Admitting Unavailable Jatinder, Hiram Referring Unavailable Jatinder, Hiram Attending Unavailable Raffi, Bernard Chi Primary Care Unavailable Tereletsky, Ankit Attending Unavailable Tereletsky, Ankit Consulting Unavailable Raffi, Bernard Chi Primary Care Unavailable Raffi, Bernard Chi Referring Unavailable Raffi, Bernard Chi Attending Unavailable Raffi, Bernard Chi Primary Care Unavailable Raffi, Bernard Chi Attending Unavailable Raffi, Bernard Chi Referring Unavailable Jatinder, Hiram Referring Unavailable Jatinder, Hiram Attending Unavailable Raffi, Bernard Chi Primary Care Unavailable Raffi, Bernard Chi Primary Care Unavailable Raffi, Bernard Chi Referring Unavailable Jatinder, Hiram Attending Unavailable Raffi, Bernard Chi Referring Unavailable Raffi, Bernard Chi Attending Unavailable Raffi, Bernard Chi Primary Care Unavailable Raffi, Bernard Chi Attending Unavailable Raffi, Bernard Chi Primary Care Unavailable Raffi, Bernard Chi Primary Care Unavailable White, Unique L Admitting Unavailable White, Unique L Consulting Unavailable Tereletsky, Ankit Attending Unavailable Shaila Haq Attending Unavailable Raffi, Bernard Chi Primary Care Unavailable Raffi, Bernard Chi Primary Care Unavailable Raffi, Bernard Chi Attending Unavailable Raffi, Bernard Chi Referring Unavailable Raffi, Bernard Chi Referring Unavailable Raffi, Bernard Chi Attending Unavailable Raffi, Bernard Chi Primary Care Unavailable Raffi, Bernard Chi Primary Care Unavailable Raffi, Bernard Chi Attending Unavailable Raffi, Bernard Chi Primary Care Unavailable Jatinder, Rodolfo Attending Unavailable Jatinder, Rodolfo Referring Unavailable Raffi, Bernard Chi Referring Unavailable Raffi, Bernard Chi Attending Unavailable Raffi, Bernard Chi Primary Care Unavailable Raffi, Bernard Chi Referring Unavailable Raffi, Bernard Chi Attending Unavailable Raffi, Bernard Chi Primary Care Unavailable Raffi, Bernard Chi Attending Unavailable Raffi, Bernard Chi Primary Care Unavailable SchwigerSalvatore Attending Unavailable SchwigerSalvatore Referring Unavailable Raffi, Bernard Chi Primary Care Unavailable Raffi, Bernard Chi Attending Unavailable Raffi, Bernard Chi Referring Unavailable Raffi, Bernard Chi Primary Care Unavailable Raffi, Bernard Chi Primary Care Unavailable Rodolfo Tobias Attending Unavailable Dr. Damien Welch DO Emergency Provider Dr. Ramos Boles DO Admit Provider Dr. Ramos Boles DO Attending Provider Allergies Allergy Classification Reported Allergen(s) Allergy Type Date of Onset Reaction(s) Facility (20 sources) codeine; Translations: [CODEINE] drug allergy 2 [facility], Other [facility] Work Phone: Comment on above: HALLUCINATIONS (3 sources) Losartan Drug Allergy 2 COUGH [facility] Work Phone: (20 sources) Lisinopril Drug Allergy 2 Other [facility] (1 source) Lisinopril Drug Allergy 5 [facility] Repository Medications Current Medications Medication Drug Class(es) Dates Sig (Normalized) Sig (Original) amLODIPine 5 mg oral tablet (20 sources) Dihydropyridine Calcium Channel Juvencio Start: 03-31-2024 take 1 tablet by mouth once daily Amlodipine 5 mg tablet Active 5 mg PO DAILY 90 3 March 31, 2024 12:56pm Start: 08-08-2023 End: 03-31-2024 take 1 tablet by mouth once daily Amlodipine (Norvasc) 2.5 mg tablet Discontinued 2.5 mg PO DAILY 90 3 August 08, 2023 12:00am March 31, 2024 12:56pm citalopram 10 mg oral tablet (2 sources) Serotonin Reuptake Inhibitor Start: 11-25-2024 take 1 tablet by mouth once daily Citalopram 10 mg tablet Active 10 mg PO daily November 25, 2024 12:00am dicyclomine hydrochloride 20 mg oral tablet (3 sources) Anticholinergic Start: 11-14-2024 take 1 tablet by mouth three times daily Dicyclomine 20 mg tablet Active 20 mg PO THREE TIMES A DAY 30 0 November 14, 2024 12:00am glimepiride 1 mg oral tablet (20 sources) Sulfonylurea Start: 11-25-2024 take 1 tablet by mouth once daily Glimepiride 1 mg tablet Active 1 mg PO daily November 25, 2024 12:00am Start: 02-01-2023 take 1 mg by mouth o nce daily at breakfast Glimepiride Active 1 MG PO EVERY MORNING February 01, 2023 3:08pm administer with breakfast Start: 09-18-2022 End: 11-11-2024 take 1 mg by mouth once daily at breakfast Glimepiride 4 mg tablet Discontinued 1 mg PO EVERY MORNING February 01, 2023 3:08pm November 11, 2024 10:04pm diabetes administer with breakfast Start: 12-30-2013 End: 05-25-2016 take 1 tablet by mouth once daily GLIMEPIRIDE 2 MG TABS One tablet by mouth daily GLIMEPIRIDE [id number] Rodolfo Tobias MD levothyroxine sodium 0.025 mg oral tablet (10 sources) l-Thyroxine Start: 02-20-2024 take 1 tablet by mouth once daily Levothyroxine 25 mcg tablet Active 25 ug PO DAILY February 20, 2024 12:00am loperamide hydrochloride 2 mg oral capsule (5 sources) Opioid Agonist Start: 11-14-2024 End: 11-25-2024 take 2-4 mg by mouth three times daily as needed for diarrhea Loperamide 2 mg capsule Active 2 mg PO THREE TIMES A DAY as needed for Diarrhea November 25, 2024 7:41am You may take loperamide 2 to 4 mg 3 times a day as needed for loose stools and diarrhea losartan potassium 100 mg oral tablet (20 sources) Angiotensin 2 Receptor Juvencio Start: 03-31-2024 take 1 tablet by mouth once daily Losartan 100 mg tablet Active 100 mg PO daily March 31, 2024 1:00am Start: 12-22-2021 End: 06-19-2022 take 1 tablet by mouth once daily Losartan 100 mg tablet Discontinued 100 mg PO DAILY 3 January 24, 2022 1:26pm June 19, 2022 11:59am Completed/Discontinued Medications Medication Drug Class(es) Dates Sig (Normalized) Sig (Original) OXYCODONE-ACETAMIN OPHEN (6 sources) Opioid Agonist Start: 11-05-2014 End: 11-09-2014 take 1-2 tablets by mouth every four hours as needed PERCOCET 5-325 MG TABS 1-2 tablets by mouth every 4 hours as needed OXYCODONE-ACETAMINO PHEN [id number] Annalisa Jones RN Start: 11-05-2014 take 1-2 tablets by mouth every four hours as needed PERCOCET 5-325 MG TABS 1-2 tablets by mouth every 4 hours as needed OXYCODONE-ACETAMINOPHEN [id number] Annalisa Jones RN Start: 11-05-2014 End: 11-09-2014 take 1-2 tablets by mouth every four hours as needed PERCOCET 5-325 MG TABS 1-2 tablets by mouth every 4 hours as needed OXYCODONE-ACETAMINOPHEN [id number] Muriel Bonilla PA-C apixaban 2.5 mg oral tablet (20 sources) Factor Xa Inhibitor Start: 02-01-2023 End: 03-27-2024 take 1 tablet by mouth twice daily Apixaban 2.5 mg tablet Discontinued 2.5 mg PO TWICE A DAY 180 March 19, 2024 10:20am March 27, 2024 2:20pm blood thinner Start: 06-19-2022 End: 02-01-2023 take 1 tablet by mouth twice daily Apixaban (Eliquis) 5 mg tablet Discontinued 5 mg PO TWICE A DAY 180 3 November 28, 2022 1:52pm February 01, 2023 3:30pm blood thinner Start: 12-10-2019 End: 04-30-2022 take 1 tablet [...] TABS One tablet by mouth daily ASPIRIN [id number] Rodolfo Tobias MD Start: 05-26-2014 take 1 tablet by valeriy th once daily ASPIRIN 81 MG TABS One tablet by mouth daily ASPIRIN [id number] Rodolfo Tobias MD cholecalciferol 0.025 mg oral capsule (20 sources) Vitamin D Start: 01-24-2022 End: 11-11-2023 take 1 capsule by mouth once daily Cholecalciferol (Vitamin D3) 25 mcg (1,000 unit) capsule Discontinued 25 ug PO DAILY January 24, 2022 12:00am November 11, 2023 11:28am vitamin 24 hr dilTIAZem hydrochloride 120 mg extended release oral capsule (20 sources) Calcium Channel Juvencio Start: 12-10-2019 End: 12-19-2021 take 1 capsule by mouth once daily Diltiazem Hcl 120 mg capsule,extended release 24hr Discontinued 120 mg PO DAILY 90 4 March 02, 2021 2:12pm October 26, 2021 12:40pm docusate sodium 50 mg / sennosides, long-term 8.6 mg oral tablet (20 sources) Start: 12-22-2021 End: 06-19-2022 Sennosides-Docusate Sodium (Stool Softener-Stimulant Laxat) 8.6-50 mg Tablet Discontinued 2 {tbl} PO TWICE DAILY NEEDED as needed for Constipation 0 0 December 22, 2021 12:00am June 19, 2022 11:59am Gmph-cms-dvjjses empagliflozin 10 mg oral tablet (20 sources) Sodium-Glucose Cotransporter 2 Inhibitor Start: 08-16-2022 End: 09-18-2022 Empagliflozin (Jardiance) 10 mg tablet Discontinued 10 mg PO DAILY August 16, 2022 12:00am September 18, 2022 3:48pm ordered by Dr. Nugent for hgb a1c of 8.5 furosemide 40 mg oral tablet (20 sources) Loop Diuretic Start: 07-05-2023 End: 11-25-2024 take 1 tablet by mouth every other day as needed for edema Furosemide 40 mg tablet Discontinued 40 mg PO every other day as needed for edema March 31, 2024 12:45pm November 25, 2024 7:47am Hold if creatinine is more than 0.5 mg/dL above the baseline Start: 07-10-2022 End: 07-05-2023 take 1 tablet by mouth once daily Furosemide 40 mg tablet Discontinued 40 mg PO DAILY October 30, 2022 11:27am July 05, 2023 5:52pm edema Hold if creatinine is more than 0.5 mg/dL above the baseline Start: 06-19-2022 End: 07-10-2022 take 1 tablet by mouth every other day Furosemide 40 mg tablet Discontinued 40 mg PO every other day June 19, 2022 12:30pm July 10, 2022 1:45pm edema Hold if creatinine is more than 0.5 mg/dL above the baseline Start: 12-22-2021 End: 06-19-2022 take 1 tablet by mouth once daily as needed for edema Furosemide 40 mg tablet Discontinued 40 mg PO DAILY as needed for edema 18 06January 24, 2022 1:28pm June 19, 2022 11:59am Hold if creatinine is more than 0.5 mg/dL above the baseline hydroCHLOROthiazide 25 mg / losartan potassium 100 mg oral tablet (20 sources) Thiazide Diuretic, Angiotensin 2 Receptor Juvencio Start: 09-24-2014 End: 12-22-2021 Losartan-Hydrochlorothiazide 100-25 mg tablet Discontinued 1 {tbl} PO DAILY March 02, 2021 2:12pm October 26, 2021 12:40pm Start: 09-24-2014 End: 12-22-2021 take 1 tablet by mouth once daily Losartan-Hydrochlorothiazide Discontinue d 1 TABLET PO DAILY March 02, 2021 2:12pm October 26, 2021 12:40pm Start: 12-30-2013 take 0.5 tablet by mouth once daily LOSARTAN POTASSIUM-HCTZ 100-12.5 MG TABS 1/2 tablet by mouth daily LOSARTAN POTASSIUM-HCTZ [id number] Rodolfo Tobias MD Start: 12-30-2013 LOSARTAN POTAS SIUM-HCTZ 100-12.5 MG TABS as directed LOSARTAN POTASSIUM-HCTZ [id number] Tj Boswell magnesium oxide 400 mg oral tablet (20 sources) Start: 12-22-2021 End: 01-24-2022 take 1 tablet by mouth twice daily Magnesium Oxide 400 mg magnesium tablet Discontinued 400 mg PO TWICE A DAY 10 0 December 22, 2021 12:00am January 24, 2022 1:10pm Follow-up set of magnesium after 4 days melatonin 5 mg oral tablet (20 sources) Start: 08-16-2022 End: 11-11-2023 take 1 tablet by mouth at bedtime as needed Melatonin 5 mg tablet Discontinued 5 mg PO BEDTIME as needed for Insomnia August 16, 2022 12:00am November 11, 2023 11:28am metFORMIN hydrochloride 500 mg oral tablet (20 sources) Biguanide Start: 09-19-2014 End: 01-13-2018 Metformin 1,000 MG tablet Discontinued 1000 mg PO 08September 19, 2014 12:00am January 13, 2018 3:54pm Start: 09-19-2014 End: 12-07-2021 take 1 tablet by mouth at bedtime Metformin 500 MG tablet Discontinued 500 mg PO AT BEDTIME September 19, 2014 12:00am December 07, 2021 10:06am blood pressure Start: 12-30-2013 METFORMIN HCL 1000 MG TABS 1000 mg in the am, 500 mg at bedtime METFORMIN HCL [id number] Rodolfo Tobias MD metoprolol tartrate 25 mg oral tablet (20 sources) beta-Adrenergic Juvencio Start: 07-07-2023 End: 08-18-2024 take 1 tablet by mouth twice daily Metoprolol Tartrate 25 mg tablet Discontinued 25 mg PO TWICE A DAY 180 July 08, 2023 5:20pm July 11, 2023 12:35pm Start: 07-05-2023 End: 07-11-2023 take 1 tablet by mouth every twenty-four hours at bedtime Metoprolol Succinate 25 mg tablet extended release 24 hr Discontinued 25 mg PO AT BEDTIME 30 July 05, 2023 1:00am July 11, 2023 12:11pm Start: 02-05-2022 End: 03-13-2022 take 2 tablets by mouth once daily Metoprolol Succinate 25 mg tablet extended release 24 hr Discontinued 12.5 mg PO DAILY 90 February 05, 2022 3:16pm March 13, 2022 1:27pm Start: 02-05-2022 End: 03-13-2022 take 12.5 mg by mouth once daily Metoprolol Succinate Discontinued 12.5 MG PO DAILY 90 February 05, 2022 3:16pm March 13, 2022 1:27pm Start: 01-24-2022 End: 02-05-2022 take 1 tablet by mouth once daily Metoprolol Succinate 25 mg tablet extended release 24 hr Discontinued 25 mg PO DAILY 90 January 24, 2022 12:00am February 05, 2022 3:17pm Start: 12-22-2021 End: 01-24-2022 take 1 tablet by mouth once daily Metoprolol Tartrate 25 mg Tablet Discontinued 25 mg PO DAILY 30 December 22, 2021 12:00am January 24, 2022 1:26pm Start: 12-19-2021 End: 12-22-2021 take 1 tablet by mouth once daily Metoprolol Succinate 50 mg tablet extended release 24 hr Discontinued 50 mg PO DAILY 30 0 December 19, 2021 12:00am December 22, 2021 2:03pm Start: 01-13-2019 End: 12-19-2021 take 1 tablet by mouth once daily Metoprolol Succinate 100 mg tablet extended release 24 hr Discontinued 100 mg PO DAILY 90 March 02, 2021 2:12pm October 26, 2021 12:40pm Start: 01-13-2018 End: 01-13-2019 take 2 tablets by mouth once daily Metoprolol Succinate 100 mg tablet extended release 24 hr Discontinued 50 mg PO daily 45 October 20, 2018 4:29pm [...] 24 hr Discontinued 100 mg PO daily 90 May 23, 2017 1:00am January 13, 2018 [...] uth once daily TOPROL XL 50 MG [id number] Two tablets by mouth daily METOPROLOL SUCCINATE [id number] Rodolfo Tobias MD Start: 05-26-2014 take 1 tablet by mouth once da tiago TOPROL XL 100 MG [id number] One tablet by mouth daily METOPROLOL SUCCINATE [id number] Rodolfo Tobias MD Start: 05-26-2014 take 1 tablet by mouth once da tiago TOPROL XL 100 MG [id number] One tablet by mouth daily METOPROLOL SUCCINATE [id number] Rodolfo Tobias MD Start: 05-26-2014 take 2 tablets by mo uth once daily TOPROL XL 50 MG [id number] Two tablets by mouth daily METOPROLOL SUCCINATE [id number] Rodolfo Tobias MD Start: 05-26-2014 take 1 tablet by mouth once da tiago TOPROL XL 50 MG [id number] One tablet by mouth daily METOPROLOL SUCCINATE [id number] Rodolfo Tobias MD MULTIPLE VITAMINS-MINERALS (2 sources) Start: 12-30-2013 PRESERVISION A REDS TABS as directed MULTIPLE VITAMINS-MINERALS [id number] Tj Boswell MULTIPLE VITAMINS-MINERALS (1 source) Start: 12-30-2013 PRESERVISION A REDS TABS as directed MULTIPLE VITAMINS-MINERALS [id number] Tj Boswell Oa-Vw-Sc-Vit D-Jmaln-Acjy-Ze ax (20 sources) Start: 09-03-2016 End: 05-05-2019 Te-Fs-Ww-Vit Y-Mycio-Gunl-Ze ax Discontinued 1 EACH PO September 03, 2016 4:57pm May 05, 2019 3:43pm Start: 09-03-2016 End: 05-05-2019 Lr-Mb-Ya-Vit Y-Mgjpd-Cnnh-Ze ax Discontinued 1 EACH PO September 02, 2016 11:00pm May 05, 2019 2:43pm Start: 09-03-2016 End: 05-05-2019 Ic-Fb-Na-Vit Z-Loopu-Miao-Ze ax Discontinued 1 EACH PO September 03, 2016 12:00am May 05, 2019 3:43pm Gl-Oh-Vd-Vit T-Olnyy-Wcsj-Ze ax 1 EACH tablet (10 sources) Start: 09-03-2016 End: 05-05-2019 La-Nk-Mc-Vit K-Lsnbo-Cmns-Ze ax 1 EACH tablet Discontinued 1 NMA PO September 03, 2016 12:00am May 05, 2019 3:43pm Start: 09-03-2016 End: 05-05-2019 Gn-Wz-Nm-Vit I-Rnqxa-Zmyj-Ze ax 1 EACH tablet Discontinued 1 NMA PO September 02, 2016 11:00pm May 05, 2019 2:43pm omeprazole 20 mg delayed release oral capsule (20 sources) Proton Pump Inhibitor Start: 12-30-2013 End: 03-31-2024 take 1 capsule by mouth once daily Omeprazole 20 MG capsule Discontinued 20 mg PO DAILY September 19, 2014 12:00am March 31, 2024 12:45pm reflux pantoprazole 40 mg delayed release oral tablet (10 sources) Proton Pump Inhibitor Start: 03-31-2024 End: 11-11-2024 take 1 tablet by mouth once daily in the morning Pantoprazole 40 mg tablet,delayed release (DR/EC) Discontinued 40 mg PO EVERY MORNING March 31, 2024 1:00am November 11, 2024 10:04pm potassium chloride 20 meq extended release oral tablet (20 sources) Start: 02-01-2023 End: 11-11-2024 take 10 mEq by mouth once daily Potassium Chloride 20 mEq tablet extended release Discontinued 10 meq PO DAILY February 01, 2023 3:08pm November 11, 2024 10:04pm Start: 02-01-2023 take 10 mEq by mouth once [place] Potassium Chloride Active 10 MEQ PO DAILY February 01, 2023 3:08pm Start: 10-23-2022 End: 02-01-2023 take 2 tablets by mouth once daily Potassium Chloride 20 mEq tablet extended release Discontinued 40 meq PO DAILY 180 3 October 30, 2022 11:27am February 01, 2023 3:09pm Start: 10-23-2022 End: 02-01-2023 take 40 mEq by mouth once daily Potassium Chloride Dis continued 40 MEQ PO DAILY 180 October 30, 2022 11:27am February 01, 2023 3:09pm Start: 01-13-2019 End: 12-10-2019 take 1 tablet by mouth once daily Potassium Chloride 20 mEq tablet extended release Discontinued 20 meq PO DAILY 90 0 January 13, 2019 12:00am December 10, 2019 11:07am pravastatin sodium 40 mg oral tablet (20 sources) HMG-CoA Reductase Inhibitor Start: 12-30-2013 End: 11-26-2024 take 1 tablet by mouth at bedtime Pravastatin 40 MG tablet Discontinued 40 mg PO AT BEDTIME September 19, 2014 12:00am November 26, 2024 11:13am cholesterol Start: 12-30-2013 PRAVASTATIN SO DIUM 40 MG TABS as directed PRAVASTATIN SODIUM [id number] Tj Boswell rivaroxaban 20 mg oral tablet (20 sources) Factor Xa Inhibitor Start: 04-30-2022 End: 06-19-2022 take 1 tablet by mouth once daily at dinner Rivaroxaban (Xarelto) 20 mg tablet Discontinued 20 mg PO DAILY 30 0 April 30, 2022 1:00am June 19, 2022 11:59am must administer with evening meal tamsulosin hydrochloride 0.4 mg oral capsule (20 sources) alpha-Adrenergic Juvencio Start: 02-04-2022 End: 07-11-2023 take 1 capsule by mouth at bedtime Tamsulosin (Flomax) 0.4 mg Capsule Discontinued 0.4 mg PO AT BEDTIME February 04, 2022 12:00am July 11, 2023 12:11pm prostate Start: 12-07-2021 End: 01-24-2022 take 1 capsule [...] Classification Problem Date Documented Da te Episodic/Chronic Anal and rectal conditions (2 sources) Rectal pain; Translations: [Other specified diseases of anus and rectum] 11-30-2024 Episodic Aortic; peripheral; and visceral artery aneurysms (15 sources) Aortic aneurysm; Translations: [Aortic aneurysm of unspecified site, without rupture] 07-11-2023 Chronic Blindness and vision defects (1 source) Visual impairment; Translations: [Unspecified visual loss] 12-03-2024 Chronic Cardiac dysrhythmias (20 sources) Paroxysmal atrial [...] Onset: 05-31-2014 05-31-2014 Chronic E Codes: Fall (12 sources) Fall; Translations: [Unspecified fall, initial encounter] Episodic Essential hypertension (20 sources) Hypertensive disorder; Translations: [Essential hypertension] Onset: 05-25-2014 05-25-2014 Chronic Fluid and electrolyte disorders (20 sources) Hyponatremia; Translations: [Hypo-osmolality and hyponatremia] Onset: 03-13-2024 Episodic Genitourinary symptoms and ill-defined conditions (2 sources) Acute retention of urine ; Translations: [Other retention of urine] 12-03-2024 Episodic Heart valve disorders (20 sources) Tricuspid incompetence, non-rheumatic ; Translations: [Nonrheumatic tricuspid (valve) insufficiency] 12-31-2018 Chronic Malaise and fatigue (20 sources) Asthenia; Translations: [Weakness] Onset: 05-29-2024 Episodic Noninfectious gastroenteritis (13 sources) Colitis; Translations: [Noninfective gastroenteritis and colitis, unspecified] Onset: 11-19-2024 11-11-2024 Episodic Nonmalignant breast conditions (20 sources) Breast lump; Translations: [Unspecified lump in the left breast, unspecified quadrant] Episodic Open wounds of extremities (11 sources) Laceration of left lower leg; Translations: [Laceration without foreign body, left lower leg, initial encounter] Onset: 07-17-2024 07-11-2024 Episodic Other aftercare (5 sources) Long-term current use of anticoagulant; Translations: [exterminator (current) use of anticoagulants] 11-12-2024 Episodic Other and ill-defined heart disease (20 [...] [Diarrhea, unspecified] 12-31-2018 Episodic Other gastrointestinal disorders (10 sources) Occult blood in stools; Translations: [Other fecal abnormalities] 11-12-2024 Episodic Other gastrointestinal disorders (2 sources) Other fecal abnormalities; Translations: [Other fecal abnormalities] Onset: 11-16-2024 Episodic Other gastrointestinal disorders (1 source) Diarrhea, [...] (BMI) 31.0-31.9, adult] Onset: 05-26-2014 05-26-2014 Chronic Other screening for suspected conditions (not mental disorders or infectious disease) (2 sources) Radiology result abnormal; Translations: [Abnormal findings on diagnostic imaging of other specified body structures] 11-30-2024 Chronic Retinal detachments; defects; vascular occlusion; and retinopathy (1 source) Degenerative disorder of macula ; Translations: [Unspecified macular degeneration] 12-03-2024 Chronic Syncope (2 sources) Syncope and collapse; Translations: [Syncope and collapse] Episodic Unclassified (1 source) Long-term drug therapy; Translations: [Long-term (current) use of other medications] Onset: 05-31-2014 05-31-2014 Unclassified (3 sources) Dr. 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 Past or Other Problems Problem Classification Problem [...] Range Facility Absolute lymphocyte countOrd ered By: Carley Clarke on 12-03-2024 Lymphocytes Auto (Unsp spec) [#/Vol] 0.95 10*3/uL 0.83-4.51 [facility] Absolute neutrophil countOrd ered By: Carley Clarke on 12-03-2024 Neutrophils (Bld) [#/Vol] 8.1 10*3/uL High 2.0-7.7 [facility] Anion gap in Serum or Plasma Ordered By: Carley Clarke on 12-03-2024 Anion gap [Moles/Vol] 11 mmol/L 5-15 [facility] Automated lymphocyte count a s percentage of total leukocytesOrdered By: Carley Clarke on 12-03-2024 Lymphocytes/100 WBC Auto (Unsp spec) 9.4 % Low 19-41 [facility] BUN/creatinine ratioOrdered By: Carley Clarke on 12-03-2024 Urea nitrogen/Creatinine [Mass ratio] 11.7 mg/mg 10-20 [facility] Basophil percentageOrdered B y: Carley Clarke on 12-03-2024 Basophils/100 WBC (Bld) 0.5 % 0-1 [facility] Bilirubin Test strip Ql (U)O rdered By: Carley Clarke on 12-03-2024 Bilirubin Ql (U) Negative Negative [facility] Carbon dioxide, total [Moles /volume] in Central venous bloodOrdered By: Carley Clarke on 12-03-2024 CO2 [Moles/Vol] 25.1 mmol/L 21.0-32.0 [facility] Chloride assayOrdered By: Yael Clarke on 12-03-2024 Chloride [Moles/Vol] 99 mmol/L 98-108 [facility] Eosinophil percentageOrdered By: Carley Clarke on 12-03-2024 Eosinophils/100 WBC (Bld) 1.5 % 0-5 [facility] Erythrocyte distribution wid th ratioOrdered By: Carley Clarke on 12-03-2024 Erythrocyte distribution width (RBC) [Ratio] 13.7 % 11.6-14.6 [facility] Erythrocyte distribution wid th standard deviationOrdered By: Carley Clarke on 12-03-2024 Erythrocyte distribution width (RBC) [Ratio] 45.0 fl High 35.1-43.9 [facility] Glomerular filtration rate ( GFR) estimation/1.73 sq m using serum, plasma, or whole bOrdered By: Carley Clarke on 12-03-2024 GFR/1.73 sq M.predicted among non-blacks MDRD (S/P/Bld) [Vol rate/Area] 57 mL/min/{1.73_m2} Low >60 [facility] Comment on above: mL/min/1.73m2 CKD-EP I Creatinine Equation (2020) Hematocrit Auto (Bld) [Volum e fraction]Ordered By: Carley Clarke on 12-03-2024 Hematocrit (Bld) [Volume fraction] 36.4 % Low 40-54 [facility] Hemoglobin measurementOrdere d By: Carley Clarke on 12-03-2024 Hemoglobin (Bld) [Mass/Vol] 12.5 g/dL Low 13.0-16.5 [facility] Immature granulocytes/100 WB C Auto (Bld)Ordered By: Carley Clarke on 12-03-2024 Immature granulocytes/100 WBC (Bld) 0.500 % 0.0-0.9 [facility] Comment on above: IG% - Immature Granu locytes (promyelocytes, myelocytes and metamyelocytes) > 1% indicates that a LEFT SHIFT is Present. Ketones Test strip Ql (U)Ord ered By: Carley Clarke on 12-03-2024 Ketones Ql (U) Negative Negative [facility] MCV (mean corpuscular volume ) determinationOrdered By: Carley Clarke on 12-03-2024 MCV (RBC) [Entitic vol] 89.9 fL 80-94 [facility] Mean corpuscular hemoglobin (MCH) determinationOrdered By: Carley Clarke on 12-03-2024 MCH (RBC) [Entitic mass] 30.9 pg 27.0-32.0 [facility] Mean corpuscular hemoglobin concentration (MCHC) determinationOrdered By: Carley Clarke on 12-03-2024 MCHC (RBC) [Mass/Vol] 34.3 g/dL 32-36 [facility] Mean platelet volume determi nationOrdered By: Carley Clarke on 12-03-2024 Platelet mean volume (Bld) [Entitic vol] 11.2 fL 6.2-12.0 [facility] Microscopic analysis of urin e for red blood cells (RBC)Ordered By: Carley Clarke on 12-03-2024 Microscopic analysis of urine for red blood cells (RBC) 0 SEEN /hpf 0-5 [facility] Monocyte percentageOrdered B y: Carley Clarke on 12-03-2024 Monocytes/100 WBC (Bld) 8.9 % 0-10 [facility] Mucus LM Ql (Urine sed)Order ed By: Carley Clarke on 12-03-2024 Mucus Ql (Urine sed) 0 SEEN /hpf [facility] Neutrophil percentageOrdered By: Carley Clarke on 12-03-2024 Neutrophils/100 WBC (Bld) 79.2 % High 47-70 [facility] Nitrite Test strip Ql (U)Ord ered By: Carley Clarke on 12-03-2024 Nitrite Ql (U) Negative Negative [facility] Nucleated red blood cell per centageOrdered By: Carley Clarke on 12-03-2024 Nucleated RBC/100 WBC (Bld) [Ratio] 0 % 0-5 [facility] Platelet countOrdered By: Yael Clarke on 12-03-2024 Platelets (Bld) [#/Vol] 233 10*3/uL 150-450 [facility] Potassium measurement (mass/ volume)Ordered By: Carley Clrake on 12-03-2024 Potassium (Unsp spec) [Mass/Vol] 4.0 mmol/L 3.3-5.1 [facility] Protein Test strip Ql (U)Ord ered By: Carley Clarke on 12-03-2024 Protein Ql (U) 30 mg/dl High Negative [facility] RBC Auto (Bld) [#/Vol]Ordere d By: Carley Clarke on 12-03-2024 RBC (Bld) [#/Vol] 4.05 10*6/uL Low 4.6-6.2 [facility] Serum creatinine measurement (mass/volume)Ordered By: Carley Clarke on 12-03-2024 Creatinine [Mass/Vol] 1.21 mg/dL High 0.70-1.20 [facility] Serum glucose measurement (m ass/volume)Ordered By: Carley Clarke on 12-03-2024 Glucose [Mass/Vol] 127 mg/dL High 70-99 [facility] Serum or plasma calcium sita urement (mass/volume)Ordered By: Carley Clarke on 12-03-2024 Calcium [Mass/Vol] 8.9 mg/dL 7.6-11.0 [facility] Serum or plasma urea nitroge n measurement (mass/volume)Ordered By: Carley Clarke on 12-03-2024 Urea nitrogen [Mass/Vol] 14 mg/dL 4-19 [facility] Sodium levelOrdered By: Carley Clarke on 12-03-2024 Sodium [Moles/Vol] 135 mmol/L 133-145 [facility] Squamous epithelial cells de tection in urine sediment by light microscopyOrdered By: Carley Clarke on 12-03-2024 Epithelial cells.squamous LM Ql (Urine sed) 0 SEEN /hpf 0-5 [facility] Urine clarityOrdered By: Monique Clarke on 12-03-2024 Clarity (U) Clear Clear [facility] Urine color determinationOrd ered By: Carley Clarke on 12-03-2024 Color (U) Yellow Yellow [facility] Urine glucose detectionOrder ed By: Carley Clarke on 12-03-2024 Glucose Ql (U) Normal mg/dl Normal [facility] Urine leukocyte esterase det ection by dipstickOrdered By: Carley Clarke on 12-03-2024 Leukocyte esterase Test strip Ql (U) Negative Negative [facility] Urine pHOrdered By: Carley ba on 12-03-2024 pH (U) 7.0 [pH] 5.0 - 8.0 [facility] Urine sediment bacteria coun t by microscopy (number/high power field)Ordered By: Carley Clarke on 12-03-2024 Bacteria LM.HPF (Urine sed) [#/Area] 0 /[HPF] None Seen [facility] Urine specific gravity measu rementOrdered By: Carley Clarke on 12-03-2024 Specific gravity (U) [Rel density] 1.010 1.002-1.030 [facility] Urine urobilinogen measureme ntOrdered By: Carley Clarke on 12-03-2024 Urobilinogen Ql (U) Normal mg/dl Normal [facility] White blood cell (WBC) count Ordered By: Carley Clarke on 12-03-2024 WBC (Bld) [#/Vol] 10.2 10*3/uL 4.4-11.0 [facility] White blood cell countOrdere d By: Carley Clarke on 12-03-2024 White blood cell count 0 SEEN /hpf 0-5 [facility] Bedside Glucoseon 11-14-2024 FINGERSTICK GLU 186 mg/dL High 74-106 [facility] Comment on above: Result Comment: MICHAEL MILLIGAN OF PATIENT CARE PER NURSING PROTOCOL Performed By: #### L 501.080 #### [facility] [address] [place], [address] FINGERSTICK GLU 82 mg/dL Normal 74-106 [facility] Comment on above: Result Comment: MICHAEL LEWISENT OF PATIENT CARE PER NURSING PROTOCOL Performed By: #### L 501.080 #### [facility] [address] [place], [address] Discharge Instructionon 10-19 Discharge Instruction [facility] Medical Records Department [address] [place] [address] Instructions for Home/Discharge Instructions 11/14/24 1015 MR#: [id number] Acct: [id number] Name: ASHIA PEREZ Rep #: [id number] : [id number] From: Ankit Last DO PCP: Dr. Bernard Nugent MD Status:ADM IN Discharge Instructions Diet Discharge Diet: No restrictions DC O2, CPAP, BIPAP needs Home O2 Discharge instructions: No Dressing / Incision Discharge Activity: Return to Normal Activity Weight Bearing Status: Full weight bearing Follow Up Care Test Results: Test results from this visit will be discussed in further detail at your follow-up appointment, if applicable. Discharge Plan Admission Admit Date/Time: 11/11/24 22:26 Primary Reason for Your Visit: Diarrhea, hematochezia (blood in stool) Attending Provider: Ankit Last Primary Care Provider: Bernard Nugent [employer] Providers: Unique Salazar Instructions Additional Instructions / Restrictions: You may obtain loperamide [id number] to take as needed for diarrhea Discharge Orders/Prescriptions Prescriptions: New loperamide 2 mg Capsule 4 mg PO TID PRN (Reason: Diarrhea) Qty: 1 0RF Rx Instructions: You may take loperamide 2 to 4 mg 3 times a day as needed for loose stools and diarrhea Continued losartan 100 mg tablet 100 mg PO QDAY furosemide 40 mg tablet 40 mg PO Q OTHER DAY PRN (Reason: edema) Rx Instructions: Hold if creatinine is more than 0.5 mg/dL above the baseline amlodipine 5 mg tablet 5 mg PO DAILY Qty: 90 3RF pravastatin 40 MG tablet 40 mg PO QHS Patient Comments: CHOLESTEROL levothyroxine 25 mcg tablet 25 mcg PO DAILY apixaban 2.5 mg tablet 2.5 mg PO BID Qty: 60 1RF metoprolol tartrate 25 mg tablet 25 mg PO BID Qty: 180 3RF Referrals / Follow Up: Bernard Nugent Chi, MD [Primary Care Provider] - In 1 Week (Dr. 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) Disposition Disposition (needs filled in before D/C Order can be placed): Home, Self Care 11/14/24 1020 Ankit Last DO CC: Dr. Unique Salazar MD; Dr. Bernard Nugent MD Signed Normal [facility] Glucose measurement at [facility] deOrdered By: Ankit Last on 11-14-2024 Glucose [Mass/Vol] 186 mg/dL High 74-106 [facility] Comment on above: MANAGEMENT OF PATIEN T CARE PER NURSING PROTOCOL Bedside Glucoseon 11-13-2024 FINGERSTICK GLU 103 mg/dL Normal 74-106 [facility] Comment on above: Result Comment: MICHAEL GEMENT OF PATIENT CARE PER NURSING PROTOCOL Performed By: #### L 501.7300, L501.7400, L501.5500, L500.2500 #### [facility] [address], [place], [id number] FINGERSTICK GLU 137 mg/dL High -106 [facility] Comment on above: Result Comment: MICHAEL GEMENT OF PATIENT CARE PER NURSING PROTOCOL Performed By: #### L [id number], L501.7400, L501.5500, L500.2500 #### [facility] [address] [place], [address] FINGERSTICK GLU 230 mg/dL High -106 [facility] Comment on above: Result Comment: MICHAEL GEMENT OF PATIENT CARE PER NURSING PROTOCOL Performed By: #### L 501.7300, L501.7400, L501.5500, L500.2500 #### [facility] [address] [place], [address] FINGERSTICK GLU 107 mg/dL High 74-106 [facility] Comment on above: Result Comment: MICHAEL GEMENT OF PATIENT CARE PER NURSING PROTOCOL Performed By: #### L 501.7300, L501.7400, L501.5500, L500.2500 #### [facility] [address] [place], [address] FINGERSTICK GLU 131 mg/dL High 74-106 [facility] Comment on above: Result Comment: MICHAEL GEMENT OF PATIENT CARE PER NURSING PROTOCOL Performed By: #### L 501.7300, L501.7400, L501.5500, L500.2500 #### [facility] [address] [place], [address] Glucose measurement at [facility] deOrdered By: Ankit Last on 11-13-2024 Glucose [Mass/Vol] 103 mg/dL 74-106 [facility] Comment on above: MANAGEMENT OF PATIEN T CARE PER NURSING PROTOCOL Absolute lymphocyte countOrd ered By: Unique Salazar on 11-12-2024 Lymphocytes Auto (Unsp spec) [#/Vol] 1.01 10*3/uL 0.83-4.51 [facility] Absolute neutrophil countOrd ered By: Unique Martin on 11-12-2024 Neutrophils (Bld) [#/Vol] 6.3 10*3/uL 2.0-7.7 [facility] Anion gap in Serum or Plasma Ordered By: Unique Martin on 11-12-2024 Anion gap [Moles/Vol] 9 mmol/L 5-15 [facility] Automated lymphocyte count a s percentage of total leukocytesOrdered By: Unique Salazar on 11-12-2024 Lymphocytes/100 WBC Auto (Unsp spec) 12.1 % Low 19-41 [facility] BUN/creatinine ratioOrdered By: Unique Martin on 11-12-2024 Urea nitrogen/Creatinine [Mass ratio] 12.1 mg/mg 10-20 [facility] Basophil percentageOrdered B y: Unique Salazar on 11-12-2024 Basophils/100 WBC (Bld) 0.5 % 0-1 [facility] Bedside Glucoseon 11-12-2024 FINGERSTICK GLU 161 mg/dL High 74-106 [facility] Comment on above: Result Comment: MICHAEL GEMENT OF PATIENT CARE PER NURSING PROTOCOL Performed By: #### L 501.080 #### [facility] [address] [place], [address] FINGERSTICK GLU 165 mg/dL High 74-106 [facility] Comment on above: Result Comment: MICHAEL GEMENT OF PATIENT CARE PER NURSING PROTOCOL Performed By: #### L 501.080 #### [facility] [address] [place], [address] FINGERSTICK GLU 110 mg/dL High -106 [facility] Comment on above: Result Comment: MICHAEL GEMENT OF PATIENT CARE PER NURSING PROTOCOL Performed By: #### L 501.7300, L501.7400, L501.5500, L500.2500 #### [facility] [address] [place], [address] FINGERSTICK GLU 183 mg/dL High 74-106 [facility] Comment on above: Result Comment: MICHAEL GEMENT OF PATIENT CARE PER NURSING PROTOCOL Performed By: #### L 501.7300, L501.7400, L501.5500, L500.2500 #### [facility] [address] [place], [address] Bilirubin, totalOrdered By: Unique Salazar on 11-12-2024 Bilirubin [Mass/Vol] 1.85 mg/dL High 0.00-1.30 [facility] CBC W/Diff, Automatedon 10-19 Absolute Lymph 1.01 X10 3/uL Normal 0.83-4.51 [facility] Comment on above: Performed By: #### L 500.4050, L100.0100 #### [facility] [address] [place], [address] Absolute Neut 6.3 X10 3/uL Normal 2.0-7.7 [facility] Comment on above: Performed By: #### L 500.4050, L100.0100 #### [facility] [address] [place], [address] Basophils/100 WBC (Bld) 0.5 % Normal 0-1 [facility] Comment on above: Performed By: #### L 500.4050, L100.0100 #### [facility] [address] [place], [address] Eosinophils/100 WBC (Bld) 1.6 % Normal 0-5 [facility] Comment on above: Performed By: #### L [id number], L100.0100 #### [facility] [address] [place], [address] Erythrocyte distribution width (RBC) [Ratio] 13.2 % Normal 11.6-14.6 [facility] Comment on above: Performed By: #### L 500.4050, L100.0100 #### [facility] [address] [place], [address] Hematocrit (Bld) [Volume fraction] 31.3 % Low 40-54 [facility] Comment on above: Performed By: #### L [id number], L100.0100 #### [facility] [address] [place], [address] Hemoglobin (Bld) [Mass/Vol] 11.0 g/dL Low 13.0-16.5 [facility] Comment on above: Performed By: #### L 500.4050, L100.0100 #### [facility] [address] [place], [address] IG% 0.400 Normal 0.0-0.9 [facility] Comment on above: Result Comment: IG% - Immature Granulocytes (promyelocytes, myelocytes and metamyelocytes) > 1% indicates that a LEFT SHIFT is Present. Performed By: #### L 500.4050, L100.0100 #### [facility] [address] [place], [address] Lymphocytes/100 WBC (Bld) 12.1 % Low 19-41 [facility] Comment on above: Performed By: #### L [id number], L100.0100 #### [facility] [address] [place], [address] MCH (RBC) [Entitic mass] 31.1 pg Normal 27.0-32.0 [facility] Comment on above: Performed By: #### L 500.4050, L100.0100 #### [facility] [address] [place], [address] MCHC (RBC) [Mass/Vol] 35.1 g/dL Normal 32-36 [facility] Comment on above: Performed By: #### L 500.4050, L100.0100 #### [facility] [address] [place], [address] MCV (RBC) [Entitic vol] 88.4 fL Normal 80-[address] [facility] Comment on above: Performed By: #### L 500.4050, L100.0100 #### [facility] [address] [place], [address] Monocytes/100 WBC (Bld) 10.3 % High 0-10 [facility] Comment on above: Performed By: #### L 500.4050, L100.0100 #### [facility] [address] [place], [address] Neutrophils/100 WBC (Bld) 75.1 % High 47-70 [facility] Comment on above: Performed By: #### L 500.4050, L100.0100 #### [facility] [address] [place], [address] Nucleated RBC (Bld) [#/Vol] 0 10*3/uL Normal 0-5 [facility] Comment on above: Performed By: #### L 500.4050, L100.0100 #### [facility] [address] [place], [address] Platelet mean volume (Bld) [Entitic vol] 11.2 fL Normal 6.2-12.0 [facility] Comment on above: Performed By: #### L 500.4050, L100.0100 #### [facility] [address] [place], [address] Platelets (Bld) [#/Vol] 174 10*3/uL Normal 150-450 [facility] Comment on above: Performed By: #### L 500.4050, L100.0100 #### [facility] [address] [place], [address] RBC (Bld) [#/Vol] 3.54 10*6/uL Low 4.6-6.2 [facility] Comment on above: Performed By: #### L 500.4050, L100.0100 #### [facility] [address] [place], [address] RDW SD 42.7 fl Normal 35.1-43.9 [facility] Comment on above: Performed By: #### L 500.4050, L100.0100 #### [facility] [address] [place], [address] WBC (Bld) [#/Vol] 8.4 10*3/uL Normal 4.4-11.0 [facility] Comment on above: Performed By: #### L 500.4050, L100.0100 #### [facility] [address] [place], [address] CDIFF (PCR)on 11-12-2024 CDIFF Is the patient receiving laxatives? N New/unexplained onset of 3 or more stools in past 24 hrs? Y STOOL SAMPLE IS QNS FOR EP PANEL, NOTIFIED CAROLYN 11/12/24 1140 Tracie Greenberg. Pending 027 027 NAP1-B1 Presumptive Negative *for epidemiolologic???use C. Diff PCR Negative- No toxigenic C. Diff Detected Normal [facility] Comment on above: Performed By: #### L 501.7300, L501.7400, L501.5500, L500.2500 #### [facility] [address] [place], [address] Carbon dioxide, total [Moles /volume] in Central venous bloodOrdered By: Unique Salazar on 11-12-2024 CO2 [Moles/Vol] 22.2 mmol/L 21.0-32.0 [facility] Chloride assayOrdered By: Lyn Salazar on 11-12-2024 Chloride [Moles/Vol] 106 mmol/L 98-108 [facility] Comprehensive Metabolic Prof ilon 11-12-2024 Albumin [Mass/Vol] 3.2 g/dL Low 3.4-4.8 [facility] Comment on above: Performed By: #### L 500.4050, L100.0100 #### [facility] [address] [place], [address] Albumin/Globulin [Mass ratio] 1.5 {ratio} Normal 0.9-2.4 [facility] Comment on above: Performed By: #### L 500.4050, L100.0100 #### [facility] [address] [place], [address] ALK PHOS 112 U/L Normal 40-129 [facility] Comment on above: Performed By: #### L 500.4050, L100.0100 #### [facility] [address] [place], [address] ALT [Catalytic activity/Vol] 18 U/L Normal <=46 [facility] Comment on above: Performed By: #### L 500.4050, L100.0100 #### [facility] [address] [place], [address] AST [Catalytic activity/Vol] 19 U/L Normal <=37 [facility] Comment on above: Performed By: #### L 500.4050, L100.0100 #### [facility] [address] [place], [address] Bilirubin [Mass/Vol] 1.85 mg/dL High 0.00-1.30 [facility] Comment on above: Performed By: #### L 500.4050, L100.0100 #### [facility] [address] [place], [address] BUN/CRE 12.1 RATIO Normal 10-20 [facility] Comment on above: Performed By: #### L 500.4050, L100.0100 #### [facility] [address] [place], [address] Calcium [Mass/Vol] 8.0 mg/dL Normal 7.6-11.0 [facility] Comment on above: Performed By: #### L 500.4050, L100.0100 #### [facility] [address] [place], [address] Chloride [Moles/Vol] 106 mmol/L Normal 98-108 [facility] Comment on above: Performed By: #### L 500.4050, L100.0100 #### [facility] [address] [place], [address] CO2 [Moles/Vol] 22.2 mmol/L Normal 21.0-32.0 [facility] Comment on above: Performed By: #### L 500.4050, L100.0100 #### [facility] [address] [place], [address] Creatinine [Mass/Vol] 1.26 mg/dL High 0.70-1.20 [facility] Comment on above: Performed By: #### L 500.4050, L100.0100 #### [facility] [address] [place], [address] ECRCL 44.55 ml/min Low 50-250 [facility] Comment on above: Performed By: #### L 500.4050, L100.0100 #### [facility] [address] [place], [address] GAP 9 Normal 5-15 [facility] Comment on above: Performed By: #### L 500.4050, L100.0100 #### [facility] [address] [place], [address] GFR/1.73 sq M.predicted among non-blacks MDRD (S/P/Bld) [Vol rate/Area] 55 mL/min/{1.73_m2} Low >60 [facility] Comment on above: Result Comment: mL/m in/1.73m2 CKD-EPI Creatinine Equation (2020) Performed By: #### L 500.4050, L100.0100 #### [facility] [address] [place], [address] Globulin (S) [Mass/Vol] 2.1 g/dL Low 2.2-4.[address] [facility] Comment on above: Performed By: #### L 500.4050, L100.0100 #### [facility] [address] [place], [address] Glucose [Mass/Vol] 105 mg/dL High 70-99 [facility] Comment on above: Performed By: #### L 500.4050, L100.0100 #### [facility] [address] [place], [address] Potassium [Moles/Vol] 3.6 mmol/L Normal 3.3-5.1 [facility] Comment on above: Performed By: #### L 500.4050, L100.0100 #### [facility] [address] [place], [address] Sodium [Moles/Vol] 137 mmol/L Normal 133-145 [facility] [facility] Comment on above: Performed By: #### L 500.4050, L100.0100 #### [facility] [address] [place], [address] T PROT 5.3 g/dL Low 5.9-8.4 [facility] Comment on above: Performed By: #### L 500.4050, L100.0100 #### [facility] [address] [place], [address] Urea nitrogen [Mass/Vol] 15 mg/dL Normal 4-19 [facility] Comment on above: Performed By: #### L 500.4050, L100.0100 #### [facility] [address] [place], [address] ENTERIC PATHOGEN PANEL STOOL on 11-12-2024 EP PANEL Is the patient receiving laxatives? N New/unexplained onset of 3 or more stools in past 24 hrs? Y STOOL SAMPLE IS QNS FOR EP PANEL, NOTIFIED CAROLYN 11/12/24 1140 Tracie Greenberg. CAMPYLOBACTER Not Detected Norovirus Not Detected Rotavirus Not Detected Salmonella Not Detected Shiga Toxin Not Detected Shigella sp. Not Detected VIBRIO Not Detected Yersinia Not Detected Normal [facility] Comment on above: Performed By: #### L 501.7300, L501.7400, L501.5500, L500.2500 #### [facility] [address] [place], [address] Eosinophil percentageOrdered By: White on 11-12-2024 Eosinophils/100 WBC (Bld) 1.6 % 0-5 [facility] Erythrocyte distribution wid th ratioOrdered By: White on 11-12-2024 Erythrocyte distribution width (RBC) [Ratio] 13.2 % 11.6-14.6 [facility] Erythrocyte distribution wid th standard deviationOrdered By: Unique Salazar on 11-12-2024 Erythrocyte distribution width (RBC) [Ratio] 42.7 fl 35.1-43.9 [facility] Glomerular filtration rate ( GFR) estimation/1.73 sq m using serum, plasma, or whole bOrdered By: Unique Martin on 11-12-2024 GFR/1.73 sq M.predicted among non-blacks MDRD (S/P/Bld) [Vol rate/Area] 55 mL/min/{1.73_m2} Low >60 [facility] Comment on above: mL/min/1.73m2 CKD-EP I Creatinine Equation (2020) Hematocrit Auto (Bld) [Volum e fraction]Ordered By: Unique Salazar on 11-12-2024 Hematocrit (Bld) [Volume fraction] 31.3 % Low 40-54 [facility] Hemoglobin measurementOrdere d By: Unique Martin on 11-12-2024 Hemoglobin (Bld) [Mass/Vol] 11.0 g/dL Low 13.0-16.5 [facility] Immature granulocytes/100 WB C Auto (Bld)Ordered By: Unique Martin on 11-12-2024 Immature granulocytes/100 WBC (Bld) 0.400 % 0.0-0.9 [facility] Comment on above: IG% - Immature Granu locytes (promyelocytes, myelocytes and metamyelocytes) > 1% indicates that a LEFT SHIFT is Present. L509.7001on 11-12-2024 Procalcitonin 0.06 ng/mL Normal <=0.10 [facility] Comment on above: Result Comment: Inte rpretation: <0.10-0.25 ng/mL: Antibiotic therapy discouraged. Bacterial infection unlikely. 0.25-0.50 ng/mL: Antibiotic therapy encouraged. Bacterial infection possible. >0.50 ng/mL: Antibiotic therapy strongly encouraged. Suggestive of presence of bacterial infection. PCT should always be interpreted in the clinical context of the patient. Therefore, clinicians should use the PCT results in conjunction with other laboratory findings and clinical signs of the patient. Performed By: #### L 501.7300, L501.7400, L501.5500, L500.2500 #### [facility] [address] [place], [address] Laboratory - Chemistry and C hemistry - challengeOrdered By: Unique Salazar on 11-12-2024 AST [Catalytic activity/Vol] 19 U/L <38 [facility] MCV (mean corpuscular volume ) determinationOrdered By: Unique Salazar on 11-12-2024 MCV (RBC) [Entitic vol] 88.4 fL 80-94 [facility] Mean corpuscular hemoglobin (MCH) determinationOrdered By: Martin on 11-12-2024 MCH (RBC) [Entitic mass] 31.1 pg 27.0-32.0 [facility] Mean corpuscular hemoglobin concentration (MCHC) determinationOrdered By: Unique Martin on 11-12-2024 MCHC (RBC) [Mass/Vol] 35.1 g/dL 32-36 [facility] Mean platelet volume determi nationOrdered By: Unique Salazar on 11-12-2024 Platelet mean volume (Bld) [Entitic vol] 11.2 fL 6.2-12.0 [facility] Monocyte percentageOrdered B y: Martin on 11-12-2024 Monocytes/100 WBC (Bld) 10.3 % High 0-10 [facility] Neutrophil percentageOrdered By: Martin on 11-12-2024 Neutrophils/100 WBC (Bld) 75.1 % High 47-70 [facility] Nucleated red blood cell per centageOrdered By: Unique Salazar on 11-12-2024 Nucleated RBC/100 WBC (Bld) [Ratio] 0 % 0-5 [facility] Platelet countOrdered By: Lyn Salazar on 11-12-2024 Platelets (Bld) [#/Vol] 174 10*3/uL 150-450 [facility] Potassium measurement (mass/ volume)Ordered By: Unique Salazar on 11-12-2024 Potassium (Unsp spec) [Mass/Vol] 3.6 mmol/L 3.3-5.1 [facility] Procalcitonin [Mass/volume] in Serum or Plasma by ImmunoassayOrdered By: Unique Salazar on 11-12-2024 Procalcitonin IA [Mass/Vol] 0.06 ng/mL <0.11 [facility] Comment on above: Interpretation:<0.10 -0.25 ng/mL: Antibiotic therapy discouraged. Bacterial infection unlikely.0.25-0.50 ng/mL: Antibiotic therapy encouraged. Bacterial infection possible.>0.50 ng/mL: Antibiotic therapy strongly encouraged. Suggestive of presence of bacterial infection.PCT should always be interpreted in the clinical context of the patient. Therefore, clinicians should use the PCT results in conjunction with other laboratory findings and clinical signs of the patient. RBC Auto (Bld) [#/Vol]Ordere d By: Unique Salazar on 11-12-2024 RBC (Bld) [#/Vol] 3.54 10*6/uL Low 4.6-6.2 [facility] Serum creatinine measurement (mass/volume)Ordered By: Unique Salazar 11-12-2024 Creatinine [Mass/Vol] 1.26 mg/dL High 0.70-1.20 [facility] Serum globulin measurementOr dered By: Unique Salazar 11-12-2024 Globulin (S) [Mass/Vol] 2.1 g/dL Low 2.2-4.[address] [facility] Serum glucose measurement (m ass/volume)Ordered By: Uniqeu Salazar 11-12-2024 Glucose [Mass/Vol] 105 mg/dL High 70-99 [facility] Serum or plasma alanine erickson otransferase (ALT) measurementOrdered By: Unique Salazar 11-12-2024 ALT [Catalytic activity/Vol] 18 U/L <47 [facility] Serum or plasma albumin sita urement (mass/volume)Ordered By: Unique Salazar 11-12-2024 Albumin [Mass/Vol] 3.2 g/dL Low 3.4-4.8 [facility] Serum or plasma albumin/glob ulin mass ratioOrdered By: Unique Martin 11-12-2024 Albumin/Globulin [Mass ratio] 1.5 {ratio} 0.9-2.4 [facility] Serum or plasma alkaline florencia sphatase measurementOrdered By: Unique Salazar 11-12-2024 ALP [Catalytic activity/Vol] 112 U/L 40-129 [facility] Serum or plasma calcium sita urement (mass/volume)Ordered By: Unique Salazar 11-12-2024 Calcium [Mass/Vol] 8.0 mg/dL 7.6-11.0 [facility] Serum or plasma urea nitroge n measurement (mass/volume)Ordered By: Unique Salazar on 11-12-2024 Urea nitrogen [Mass/Vol] 15 mg/dL 4-19 [facility] Sodium levelOrdered By: [place] White on 11-12-2024 Sodium [Moles/Vol] 137 mmol/L 133-145 [facility] Total proteinOrdered By: Aut umn White on 11-12-2024 Protein [Mass/Vol] 5.3 g/dL Low 5.9-8.4 [facility] White blood cell (WBC) count Ordered By: Unique White on 11-12-2024 WBC (Bld) [#/Vol] 8.4 10*3/uL 4.4-11.0 [facility] Abdomen/Pelvis W IV Cont ONL Yon 11-11-2024 Abdomen/Pelvis W IV Cont ONLY [facility] [place], [place] [address] Abdomen/Pelvis W IV Cont ONLY MR#: [id number] Acct: [id number] Name: ASHIA PEREZ Rep #: [id number] : 1935 M 89 From: Chelsy Obando nd, MD PCP: Dr. Bernard Nugent MD Status: [facility] ER Study: Abdomen/Pelvis W IV Cont ONLY Date of Exam: Exam# [id number] Ordering Dr: Bhavya Panda DO PROCEDURE: ABDOMEN/PELVIS W IV CONT ONLY 11/11/2024 REASON FOR EXAM: DIARRHEA, PELVIC PAIN TECHNIQUE: ABDOMEN/PELVIS W IV CONT ONLY Coronal and Sagittal reconstruction series were provided. CONTRAST: Isovue 370 VOLUME: 100 mL One or more dose reduction techniques were used (e.g., Automated exposure control, adjustment of the mA and/or kV according to patient size, use of iterative reconstruction technique. RADIATION DOSE SUMMARY: DLP: 1300 mGycm COMPARISON: CT abdomen pelvis 05/22/2018. FINDINGS: Lung bases: Partially visualized ICD pacer wires. Mild cardiomegaly. Bibasilar atelectasis. Liver: The liver is normal in size with scattered hypodensities, likely cysts. The major portal veins are patent. No biliary ductal dilation. Gallbladder: Prior cholecystectomy. Spleen: Normal in size. Pancreas: Mildly atrophic. Adrenals: Left adrenal mass measuring 2.2 cm (series 2, image 38). No right adrenal mass. Kidneys: Moderate symmetric renal cortical scarring. Bilateral renal cysts and additional hypodensities. No hydronephrosis or nephrolithiasis. Bladder: Moderately distended and unremarkable. Reproductive Organs: Markedly enlarged prostate which indents the bladder base. Bowel: Prior bowel resection and anastomosis within the left lower quadrant. The bowel loops are nondilated. Moderate wall thickening and surrounding fat stranding of the distal rectum with retained fecal material. Trace lower pelvic ascites. No pneumoperitoneum. Moderate pancolonic diverticulosis. Prior appendectomy. Lymph nodes: No suspicious lymph node enlargement. Vasculature: Ectasia of the aortoiliac vessels with severe mixed calcific plaque. Bones/soft tissues: Moderate size bilateral inguinal hernias containing fat and trace fluid. Thoracolumbar spondylosis. Soft tissue nodule just superior to with likely communication with the pubic symphysis (series 2, image 106) measuring 2.[address]/Abdomen/Pelvis W IV Cont ONLY IMPRESSION: 1. Wall thickening and surrounding fat stranding of the distal rectum, which likely represents infectious/inflammator y colitis. 2. Moderate pancolonic diverticulosis. Reading Location: [id number] CC: Dr. Bhavya Panda DO; Dr. Bernard Nugent MD [employer]: Signed Normal [facility] Absolute lymphocyte countOrd ered By: Bhavya Panda on 11-11-2024 Lymphocytes Auto (Unsp spec) [#/Vol] 0.95 10*3/uL 0.83-4.51 [facility] Absolute neutrophil countOrd ered By: Bhavya Panda on 11-11-2024 Neutrophils (Bld) [#/Vol] 9.3 10*3/uL High 2.0-7.7 [facility] Anion gap in Serum or Plasma Ordered By: Bhavya Panda on 11-11-2024 Anion gap [Moles/Vol] 11 mmol/L 5-15 [facility] Automated lymphocyte count a s percentage of total leukocytesOrdered By: Bhavya Panda on 11-11-2024 Lymphocytes/100 WBC Auto (Unsp spec) 8.3 % Low 19-41 [facility] BUN/creatinine ratioOrdered By: Bhavya Panda on 11-11-2024 Urea nitrogen/Creatinine [Mass ratio] 13.6 mg/mg 10-20 [facility] Basophil percentageOrdered B y: Bhavya Panda on 11-11-2024 Basophils/100 WBC (Bld) 0.3 % 0-1 [facility] Bilirubin Test strip Ql (U)O rdered By: Bhavya Panda on 11-11-2024 Bilirubin Ql (U) Negative Negative [facility] Bilirubin, totalOrdered By: Bhavya Panda on 11-11-2024 Bilirubin [Mass/Vol] 2.12 mg/dL High 0.00-1.30 [facility] CBC W/Diff, Automatedon 10-19 Absolute Lymph 0.95 X10 3/uL Normal 0.83-4.51 [facility] Comment on above: Performed By: #### L 501.7300, L501.7400, L501.5500, L500.2500 #### [facility] [address] [place], [address] Absolute Neut 9.3 X10 3/uL High 2.0-7.7 [facility] Comment on above: Performed By: #### L 501.7300, L501.7400, L501.5500, L500.2500 #### [facility] [address] [place], [address] Basophils/100 WBC (Bld) 0.3 % Normal 0-1 [facility] Comment on above: Performed By: #### L 501.7300, L501.7400, L501.5500, L500.2500 #### [facility] [address] [place], [address] Eosinophils/100 WBC (Bld) 0.8 % Normal 0-5 [facility] Comment on above: Performed By: #### L 501.7300, L501.7400, L501.5500, L500.2500 #### [facility] [address] [place], [address] Erythrocyte distribution width (RBC) [Ratio] 13.3 % Normal 11.6-14.6 [facility] Comment on above: Performed By: #### L 501.7300, L501.7400, L501.5500, L500.2500 #### [facility] [address] [place], [address] Hematocrit (Bld) [Volume fraction] 36.9 % Low 40-54 [facility] Comment on above: Performed By: #### L 501.7300, L501.7400, L501.5500, L500.2500 #### [facility] [address] [place], [address] Hemoglobin (Bld) [Mass/Vol] 12.8 g/dL Low 13.0-16.5 [facility] Comment on above: Performed By: #### L 501.7300, L501.7400, L501.5500, L500.2500 #### [facility] [address] [place], [address] IG% 0.600 Normal 0.0-0.9 [facility] Comment on above: Result Comment: IG% - Immature Granulocytes (promyelocytes, myelocytes and metamyelocytes) > 1% indicates that a LEFT SHIFT is Present. Performed By: #### L 501.7300, L501.7400, L501.5500, L500.2500 #### [facility] [address] [place], [address] Lymphocytes/100 WBC (Bld) 8.3 % Low 19-41 [facility] Comment on above: Performed By: #### L 501.7300, L501.7400, L501.5500, L500.2500 #### [facility] [address] [place], [address] MCH (RBC) [Entitic mass] 31.3 pg Normal 27.0-32.0 [facility] Comment on above: Performed By: #### L 501.7300, L501.7400, L501.5500, L500.2500 #### [facility] [address] [place] [place], [address] MCHC (RBC) [Mass/Vol] 34.7 g/dL Normal 32-36 [facility] Comment on above: Performed By: #### L 501.7300, L501.7400, L501.5500, L500.2500 #### [facility] [address] [place], [address] MCV (RBC) [Entitic vol] 90.2 fL Normal 80-[address] [facility] Comment on above: Performed By: #### L 501.7300, L501.7400, L501.5500, L500.2500 #### [facility] [address] [place], [address] Monocytes/100 WBC (Bld) 8.4 % Normal 0-[address] [facility] Comment on above: Performed By: #### L 501.7300, L501.7400, L501.5500, L500.2500 #### [facility] [address] [place], [address] Neutrophils/100 WBC (Bld) 81.6 % High 47-70 [facility] Comment on above: Performed By: #### L 501.7300, L501.7400, L501.5500, L500.2500 #### [facility] [address] [place], [address] Nucleated RBC (Bld) [#/Vol] 0 10*3/uL Normal 0-5 [facility] Comment on above: Performed By: #### L 501.7300, L501.7400, L501.5500, L500.2500 #### [facility] [address] [place], [address] Platelet mean volume (Bld) [Entitic vol] 11.0 fL Normal 6.2-12.0 [facility] Comment on above: Performed By: #### L 501.7300, L501.7400, L501.5500, L500.2500 #### [facility] [address] [place], [address] Platelets (Bld) [#/Vol] 211 10*3/uL Normal 150-450 [facility] Comment on above: Performed By: #### L 501.7300, L501.7400, L501.5500, L500.2500 #### [facility] [address] [place], [address] RBC (Bld) [#/Vol] 4.09 10*6/uL Low 4.6-6.2 [facility] Comment on above: Performed By: #### L 501.7300, L501.7400, L501.5500, L500.2500 #### [facility] [address] [place], [address] RDW SD 43.8 fl Normal 35.1-43.9 [facility] Comment on above: Performed By: #### L 501.7300, L501.7400, L501.5500, L500.2500 #### [facility] [address] [place], [address] WBC (Bld) [#/Vol] 11.4 10*3/uL High 4.4-11.0 [facility] Comment on above: Performed By: #### L 501.7300, L501.7400, L501.5500, L500.2500 #### [facility] [address] [place], [address] Carbon dioxide, total [Moles /volume] in Central venous bloodOrdered By: Bhavya Panda on 11-11-2024 CO2 [Moles/Vol] 23.1 mmol/L 21.0-32.0 [facility] Chloride assayOrdered By: Rogelio Panda on 11-11-2024 Chloride [Moles/Vol] 102 mmol/L 98-108 [facility] Clostridium difficile detect ion by polymerase chain reactionOrdered By: Unique Salazar on 11-11-2024 C. difficile DNA MELIZA+probe Ql (Unsp spec) [facility] Comprehensive Metabolic Prof ilon 11-11-2024 Albumin [Mass/Vol] 3.7 g/dL Normal 3.4-4.8 [facility] Comment on above: Performed By: #### L 501.7300, L501.7400, L501.5500, L500.2500 #### [facility] [address] [place], [address] Albumin/Globulin [Mass ratio] 1.2 {ratio} Normal 0.9-2.4 [facility] Comment on above: Performed By: #### L 501.7300, L501.7400, L501.5500, L500.2500 #### [facility] [address] [place], [address] ALK PHOS 142 U/L High 40-129 [facility] Comment on above: Performed By: #### L 501.7300, L501.7400, L501.5500, L500.2500 #### [facility] [address] [place], [address] ALT [Catalytic activity/Vol] 19 U/L Normal <=46 [facility] Comment on above: Performed By: #### L 501.7300, L501.7400, L501.5500, L500.2500 #### [facility] [address] [place], [address] AST [Catalytic activity/Vol] 24 U/L Normal <=37 [facility] Comment on above: Performed By: #### L 501.7300, L501.7400, L501.5500, L500.2500 #### [facility] [address] [place], [address] Bilirubin [Mass/Vol] 2.12 mg/dL High 0.00-1.30 [facility] Comment on above: Performed By: #### L 501.7300, L501.7400, L501.5500, L500.2500 #### [facility] [address] [place], [address] BUN/CRE 13.6 RATIO Normal 10-20 [facility] Comment on above: Performed By: #### L 501.7300, L501.7400, L501.5500, L500.2500 #### [facility] [address] [place], [address] Calcium [Mass/Vol] 8.8 mg/dL Normal 7.6-11.0 [facility] Comment on above: Performed By: #### L 501.7300, L501.7400, L501.5500, L500.2500 #### [facility] [address] [place], [address] Chloride [Moles/Vol] 102 mmol/L Normal 98-108 [facility] Comment on above: Performed By: #### L 501.7300, L501.7400, L501.5500, L500.2500 #### [facility] [address] [place], [address] CO2 [Moles/Vol] 23.1 mmol/L Normal 21.0-32.0 [facility] Comment on above: Performed By: #### L 501.7300, L501.7400, L501.5500, L500.2500 #### [facility] [address] [place], [address] Creatinine [Mass/Vol] 1.46 mg/dL High 0.70-1.20 [facility] Comment on above: Performed By: #### L 501.7300, L501.7400, L501.5500, L500.2500 #### [facility] [address] [place], [address] GAP 11 Normal 5-15 [facility] Comment on above: Performed By: #### L 501.7300, L501.7400, L501.5500, L500.2500 #### [facility] [address] [place], [address] GFR/1.73 sq M.predicted among non-blacks MDRD (S/P/Bld) [Vol rate/Area] 46 mL/min/{1.73_m2} Low >60 [facility] Comment on above: Result Comment: mL/m in/1.73m2 CKD-EPI Creatinine Equation (2020) Performed By: #### L 501.7300, L501.7400, L501.5500, L500.2500 #### [facility] [address] [place], [address] Globulin (S) [Mass/Vol] 3.0 g/dL Normal 2.2-4.[address] [facility] Comment on above: Performed By: #### L 501.7300, L501.7400, L501.5500, L500.2500 #### [facility] [address] [place], [address] Glucose [Mass/Vol] 171 mg/dL High 70-99 [facility] Comment on above: Performed By: #### L 501.7300, L501.7400, L501.5500, L500.2500 #### [facility] [address] [place], [address] Potassium [Moles/Vol] 4.0 mmol/L Normal 3.3-5.1 [facility] Comment on above: Performed By: #### L 501.7300, L501.7400, L501.5500, L500.2500 #### [facility] [address] [place], [address] Sodium [Moles/Vol] 136 mmol/L Normal 133-145 [facility] Comment on above: Performed By: #### L 501.7300, L501.7400, L501.5500, L500.2500 #### [facility] [address] [place], [address] T PROT 6.7 g/dL Normal 5.9-8.4 [facility] Comment on above: Performed By: #### L 501.7300, L501.7400, L501.5500, L500.2500 #### [facility] [address] [place], [address] Urea nitrogen [Mass/Vol] 20 mg/dL High 4-19 [facility] Comment on above: Performed By: #### L 501.7300, L501.7400, L501.5500, L500.2500 #### [facility] [address] [place], [address] Emergency Department Summary on 11-11-2024 Emergency Department Summary [facility] Medical Records Department [address] [place] [address] Emergency Department Summary 11/11/24 MR#: [id number] Acct: [id number] Name: ASHIA PEREZ Rep #: [id number] : 1935 89 From: Bhavya Panda DO PCP: Dr. 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 He states that he has been having diarrhea with frequent bowel movements. Is not sure if he is any blood in the stool but cannot tell because he has visually impaired. States that he initially saw his primary care doctor had an x-ray (this was reviewed in the chart and patient had a KUB on 10/30 that showed fecal retention of the colon consistent with constipation) he also had lab work that day which showed a very mild leukocytosis of 11.2 (down from where he was a week before that), mild hyponatremia the sodium of 130 again near his baseline and an uptrending creatinine of 1.41 (was 1.22 a week before). Patient's has some mild lower abdominal pain and states he feels that there is a blockage in his rectum. He states he is associated rectal pain which is different than feeling raw from wiping. States when he passes gas it helps with the pressure. He states it feels like there is a blockage in his rectum. Does have a history remotely of diverticulitis but states this feels different. Denies any fevers. Does state that 3 nights ago after taking Imodium he felt the blockage and then took 2 stool softeners. He has been having diarrhea since. States he is having at least 2-3 bowel movements a day. Sometimes more. Denies associated nausea. Came in for further evaluation of the symptoms. He was post have a repeat x-ray with his primary care doctor today but he was worried he would have incontinence from his diarrhea so he came to the ER instead [facility] Medical History NSVT (nonsustained ventricular [...] mg PO QHS cholesterol 09/19/14 12/21/21 History levothyroxine 25 mcg tablet 25 mcg PO DAILY 02/20/24 Unknown H istory apixaban 2.5 mg tablet 2.5 mg PO BID blood thinner #60 11 /08/24 Unknown Rx tabs amlodipine 5 mg tablet 5 mg PO DAILY #90 tabs 03/31/24 Un known Rx furosemide 40 mg tablet 40 mg PO Q OTHER DAY PRN edema 05/12 Unknown History losartan 100 mg tablet 100 mg PO QDAY 03/31/24 Unknown Hi story metoprolol tartrate 25 mg tablet 25 mg PO BID #180 tabs 08/18/24 Un known Rx Allergy/AdvReac Type Severity Reaction Status Date / Time codeine AdvReac Other Verified 11/11/24 15:53 lisinopril AdvReac Other Verified 11/11/24 15:53 Family History Father CVA (cerebral vascular accident) Mother Diabetes Sister Heart disease PPM Surgical History History of appendectomy History of cataract surgery History of tonsillectomy H/O hemicolectomy Hx of cholecystectomy Social History household members: none housing: [facility] Smoking Status: Never smoker alcohol intake: current alcohol intake frequency: holidays/special occasions only substance use type: does not use ROS ROS ED Constitutional Constitutional ED: Denies chills or fever(s) Cardiovascular Cardiovascular: Denies chest pain Respiratory/Chest Respiratory/Chest: Denies cough Gastrointestinal Gastrointestinal: Reports abdominal pain and diarrhea; Denies melena or nausea Genitourinary Genitourinary ED: Reports dysuria; Denies hematuria or urinary frequency Musculoskeletal Musculoskeletal: Denies arthralgias or myalgias Neurologic Neurologic: Denies weakness Hematologic/Lymphatic Hematologic/Lymph (more content not included)... Normal [facility] Eosinophil percentageOrdered By: Bhavya Panda on 11-11-2024 Eosinophils/100 WBC (Bld) 0.8 % 0-5 [facility] Erythrocyte distribution wid th ratioOrdered By: Bhavya Panda on 11-11-2024 Erythrocyte distribution width (RBC) [Ratio] 13.3 % 11.6-14.6 [facility] Erythrocyte distribution wid th standard deviationOrdered By: Bhavya Panda on 11-11-2024 Erythrocyte distribution width (RBC) [Ratio] 43.8 fl 35.1-43.9 [facility] Glomerular filtration rate ( GFR) estimation/1.73 sq m using serum, plasma, or whole bOrdered By: Bhavya Panda on 11-11-2024 GFR/1.73 sq M.predicted among non-blacks MDRD (S/P/Bld) [Vol rate/Area] 46 mL/min/{1.73_m2} Low >60 [facility] Comment on above: mL/min/1.73m2 CKD-EP I Creatinine Equation (2020) H AND P Exam - [place] 11-11-2024 H&P Exam - Hospitalist [facility] Medical Records Department [address] [place] [address] H P Exam - Hospitalist 11/11/242156 MR#: [id number] Acct: [id number] Name: ASHIA PEREZ Rep #: [id number] : 1935 89 From: Unique Salazar MD PCP: Dr. Bernard Nugent MD Status:ADM IN Location: [facility] [place] OF197-4 HPI - General General Date of Admission: 11/11/24 Date of Service: 11/11/24 Chief Complaint: Diarrhea. HPI Narrative The patient is an 89 y/o M w/ PMHx: Chronic total hyperbilirubinemia, Chronic normocytic anemia, CKD stage III unclear subtype per GFR trending, HTN, HLD, GERD, Hypothyroidism, Diabetes mellitus type II, PAF, CHEO, Hx NSVT status post pacemaker placement who presents to the [facility] ED on 11/11/2024 with history of persistent rectal discomfort with loose stools with frequent bowel movement unable to really discern the color secondary to visual impairment with recent primary care evaluation with [facility] on 10/30/2024 demonstrating fecal retention at that time with acute on chronic constipation with lab work with WBC with 11.2 and mild hyponatremia near his baseline with some mild renal insufficiency however patient has had some ongoing mild lower abdominal discomfort and feels as though his rectum is raw from wiping with symptom improvement when he has flatus with no recent fevers or chills with self administration of Imodium however he felt as though he was becoming more constipated with the Imodium prompting stool softener administration with loose stool since at least 2-3 daily sometimes more with associated nausea with no emesis prompting eventual ED evaluation to be cautious. He does report some generalized abdominal cramping but no specific pain. Workup in the ED included T97.8 Temporal, heart 55, BP 129/56, respiratory rate 15, 98% on room air with most recent repeat vitals heart rate 58, BP 161/67, respiratory rate 15, 99% on room air, CBC with WBC 11.4, hemoglobin 12.8, MCV 90.2, platelet 211 with left shift, CMP with BUN/creatinine 20/1.46, GFR 46, glucose 171, T. bili 2.12, AST/LT 24/19, alk phos 142, urinalysis with specific Robley 1.020, protein 30, occult blood 25, negative nitrite, leukocyte Estrace 25 with no marked evidence of urine tract infection, CT abdomen and pelvis with wall thickening and surrounding fat stranding of the distal rectum likely infectious/inflammator y colitis with moderate pancolonic diverticulosis. In the ED patient ministered Rocephin 1 g IV x 1 and Flagyl 5 mg IV x 1. [facility] Medical History NSVT (nonsustained ventricular tachycardia) Aortic [...] mg tablet 40 mg PO QHS cholesterol 15 12/21/21 History levothyroxine 25 mcg tablet 25 mcg PO [...] mg PO QDAY 03/31/24 Unknown Hi story metoprolol tartrate 25 mg tablet 25 mg PO BID #180 tabs 08/18/24 Un known Rx Allergy/AdvReac Type Severity Reaction Status Date / Time codeine AdvReac Other Verified 11/11/24 15:53 lisinopril AdvReac Other Verified 11/11/24 15:53 Family History Father CVA (cerebral vascular accident) Mother Diabetes Sister Heart disease PPM Surgical History History of appendectomy History of cataract surgery History of tonsillectomy H/O hemicolectomy Hx of cholecystectomy Social History household members: none housing: penitentiary Smoking Status: Never smoker alcohol intake: current alcohol intake frequency: holidays/special occasions only substance use type: does not use ROS ROS Narrative Admission Review of Systems: CONSTITUTIONAL: No weight loss, fever, chills, + weakness or fatigue. HEENT: Eyes: No visual loss, blur (more content not included)... Normal [facility] Hematocrit Auto (Bld) [Volum e fraction]Ordered By: Bhavya Panda on 11-11-2024 Hematocrit (Bld) [Volume fraction] 36.9 % Low 40-54 [facility] Hemoglobin measurementOrdere d By: Bhavya Panda on 11-11-2024 Hemoglobin (Bld) [Mass/Vol] 12.8 g/dL Low 13.0-16.5 [facility] Immature granulocytes/100 WB C Auto (Bld)Ordered By: Bhavya Panda on 11-11-2024 Immature granulocytes/100 WBC (Bld) 0.600 % 0.0-0.9 [facility] Comment on above: IG% - Immature Granu locytes (promyelocytes, myelocytes and metamyelocytes) > 1% indicates that a LEFT SHIFT is Present. Ketones Test strip Ql (U)Ord ered By: Bhavya Panda on 11-11-2024 Ketones Ql (U) Negative Negative [facility] Laboratory - Chemistry and C hemistry - challengeOrdered By: Bhavya Panda on 11-11-2024 AST [Catalytic activity/Vol] 24 U/L <38 [facility] MCV (mean corpuscular volume ) determinationOrdered By: Bhavya Panda on 11-11-2024 MCV (RBC) [Entitic vol] 90.2 fL 80-94 [facility] Magnesiumon 11-11-2024 Magnesium [Mass/Vol] 1.9 mg/dL Normal 1.5-2.2 [facility] Comment on above: Order Comment: Comme nts: May add to ED labsComments: may add to ED labs Performed By: #### L 501.7300, L501.7400, L501.5500, L500.2500 #### [facility] [address] [place], [address] Magnesium measurement (mass/ volume)Ordered By: Unique Salazar on 11-11-2024 Magnesium (Unsp spec) [Mass/Vol] 1.9 mg/dL 1.5-2.2 [facility] Mean corpuscular hemoglobin (MCH) determinationOrdered By: Bhavya Panda on 11-11-2024 MCH (RBC) [Entitic mass] 31.3 pg 27.0-32.0 [facility] Mean corpuscular hemoglobin concentration (MCHC) determinationOrdered By: Bhavya Panda on 11-11-2024 MCHC (RBC) [Mass/Vol] 34.7 g/dL 32-36 [facility] Mean platelet volume determi nationOrdered By: Bhavya Panda on 11-11-2024 Platelet mean volume (Bld) [Entitic vol] 11.0 fL 6.2-12.0 [facility] Microscopic analysis of urin e for red blood cells (RBC)Ordered By: Bhavya Panda on 11-11-2024 Microscopic analysis of urine for red blood cells (RBC) 0-5 SEEN /hpf 0-5 [facility] Monocyte percentageOrdered B y: Bhavya Panda on 11-11-2024 Monocytes/100 WBC (Bld) 8.4 % 0-10 [facility] Mucus LM Ql (Urine sed)Order ed By: Bhavya Panda on 11-11-2024 Mucus Ql (Urine sed) 0 SEEN /hpf [facility] Neutrophil percentageOrdered By: Bhavya Panda on 11-11-2024 Neutrophils/100 WBC (Bld) 81.6 % High 47-70 [facility] Nitrite Test strip Ql (U)Ord ered By: Bhavya Panda on 11-11-2024 Nitrite Ql (U) Negative Negative [facility] Nucleated red blood cell per centageOrdered By: Bhavya Panda on 11-11-2024 Nucleated RBC/100 WBC (Bld) [Ratio] 0 % 0-5 [facility] Phosphoruson 11-11-2024 Phosphate [Mass/Vol] 3.2 mg/dL Normal 2.7-4.5 [facility] Comment on above: Order Comment: Comme nts: May add to ED labsComments: may add to ED labs Performed By: #### L 501.7300, L501.7400, L501.5500, L500.2500 #### [facility] Laboratory [facility] [address] [place], [address] Platelet countOrdered By: Rogelio Panda on 11-11-2024 Platelets (Bld) [#/Vol] 211 10*3/uL 150-450 [facility] Potassium measurement (mass/ volume)Ordered By: Bhavya Panda on 11-11-2024 Potassium (Unsp spec) [Mass/Vol] 4.0 mmol/L 3.3-5.1 [facility] Protein Test strip Ql (U)Ord ered By: Bhavya Panda on 11-11-2024 Protein Ql (U) 30 mg/dl High Negative [facility] RBC Auto (Bld) [#/Vol]Ordere d By: Bhavya Panda on 11-11-2024 RBC (Bld) [#/Vol] 4.09 10*6/uL Low 4.6-6.2 [facility] Serum creatinine measurement (mass/volume)Ordered By: Bhavya Panda on 11-11-2024 Creatinine [Mass/Vol] 1.46 mg/dL High 0.70-1.20 [facility] Serum globulin measurementOr dered By: Bhavya Panda on 11-11-2024 Globulin (S) [Mass/Vol] 3.0 g/dL 2.2-4.2 [facility] Serum glucose measurement (m ass/volume)Ordered By: Bhavya Panda on 11-11-2024 Glucose [Mass/Vol] 171 mg/dL High 70-99 [facility] Serum or plasma alanine erickson otransferase (ALT) measurementOrdered By: Bhavya Panda on 11-11-2024 ALT [Catalytic activity/Vol] 19 U/L <47 [facility] Serum or plasma albumin sita urement (mass/volume)Ordered By: Bhavya Panda on 11-11-2024 Albumin [Mass/Vol] 3.7 g/dL 3.4-4.8 [facility] Serum or plasma albumin/glob ulin mass ratioOrdered By: Bhavya Panda on 11-11-2024 Albumin/Globulin [Mass ratio] 1.2 {ratio} 0.9-2.4 [facility] Serum or plasma alkaline florencia sphatase measurementOrdered By: Bhavya Panda on 11-11-2024 ALP [Catalytic activity/Vol] 142 U/L High 40-129 [facility] Serum or plasma calcium sita urement (mass/volume)Ordered By: Bhavya Panda on 11-11-2024 Calcium [Mass/Vol] 8.8 mg/dL 7.6-11.0 [facility] Serum or plasma urea nitroge n measurement (mass/volume)Ordered By: Bhavya Panda on 11-11-2024 Urea nitrogen [Mass/Vol] 20 mg/dL High 4-19 [facility] Sodium levelOrdered By: Tigist Panda on 11-11-2024 Sodium [Moles/Vol] 136 mmol/L 133-145 [facility] Squamous epithelial cells de tection in urine sediment by light microscopyOrdered By: Bhavya Pnada on 11-11-2024 Epithelial cells.squamous LM Ql (Urine sed) 0 SEEN /hpf 0-5 [facility] Stool Occult Blood iFOBon STOB Positive Normal [facility] Comment on above: Performed By: #### L 501.7300, L501.7400, L501.5500, L500.2500 #### [facility] [address] [place], [address] Stool gastrointestinal hemog lobin detection by immunologic methodOrdered By: Bhavya Panda on 11-11-2024 Lower GI hemoglobin IA Ql (Stl) Positive Abnormal [facility] Total proteinOrdered By: Yaneli Panda on 11-11-2024 Protein [Mass/Vol] 6.7 g/dL 5.9-8.4 [facility] Urinalysis, Completeon 11-11 RBC 0-5 SEEN Normal 0-5 [facility] Comment on above: Order Comment: CLEAN CATCH Performed By: #### L 501.7300, L501.7400, L501.5500, L500.2500 #### [facility] [address] [place], [address] WBC 0-5 SEEN Normal 0-5 [facility] Comment on above: Order Comment: CLEAN CATCH Performed By: #### L 501.7300, L501.7400, L501.5500, L500.2500 #### [facility] [address] [place], [address] BACTERIA 0 SEEN Normal None Seen [facility] Comment on above: Order Comment: CLEAN CATCH Performed By: #### L 501.7300, L501.7400, L501.5500, L500.2500 #### [facility] [address] [place], [address] EPI,SQUAMOUS 0 SEEN Normal 0-5 [facility] Comment on above: Order Comment: CLEAN CATCH Performed By: #### L 501.7300, L501.7400, L501.5500, L500.2500 #### [facility] [address] [place], [address] Mucus Ql (Urine sed) 0 SEEN Normal [facility] Comment on above: Order Comment: CLEAN CATCH Performed By: #### L 501.7300, L501.7400, L501.5500, L500.2500 #### [facility] [address] [place], [place], [id number] Urine clarityOrdered By: Yaneli Panda on 11-11-2024 Clarity (U) Clear Clear [facility] Urine color determinationOrd ered By: Bhavya Panda on 11-11-2024 Color (U) Yellow Yellow [facility] Urine glucose detectionOrder ed By: Bhavya Panda on 11-11-2024 Glucose Ql (U) Normal mg/dl Normal [facility] Urine leukocyte esterase det ection by dipstickOrdered By: Bhavya Panda on 11-11-2024 Leukocyte esterase Test strip Ql (U) 25 /ul High Negative [facility] Urine pHOrdered By: Bhavya jha on 11-11-2024 pH (U) 6.0 [pH] 5.0 - 8.0 [facility] Urine sediment bacteria coun t by microscopy (number/high power field)Ordered By: Bhavya Panda on 11-11-2024 Bacteria LM.HPF (Urine sed) [#/Area] 0 /[HPF] None Seen [facility] Urine specific gravity measu rementOrdered By: Bhavya Panda on 11-11-2024 Specific gravity (U) [Rel density] 1.020 1.002-1.030 [facility] Urine urobilinogen measureme ntOrdered By: Bhavya Panda on 11-11-2024 Urobilinogen Ql (U) 1 mg/dl High Normal [facility] White blood cell (WBC) count Ordered By: Bhavya Panda on 11-11-2024 WBC (Bld) [#/Vol] 11.4 10*3/uL High 4.4-11.0 [facility] White blood cell countOrdere d By: Bhavya Panda on 11-11-2024 White blood cell count 0-5 SEEN /hpf 0-5 [facility] Abdomen Single Viewon 2024 Abdomen Single View [facility] [address] [place] [address] Abdomen Single View MR#: [id number] Acct: [id number] Name: ASHIA PEREZ Rep #: [id number] : 1935 M 89 From: Ankit Judge MD PCP: Dr. Bernard Nugent MD Status: REG CLI Study: Abdomen Single View Date of Exam: 10/30/24 Exam# [id number] Ordering Dr: Bernard Nugent MD EXAM: XR Abdomen, 1 View CLINICAL INDICATION: DIARRHEA TECHNIQUE: Frontal supine view of the abdomen/pelvis. COMPARISON: No relevant prior studies available. FINDINGS: GASTROINTESTINAL TRACT: Fecal retention in the colon consistent with constipation. No dilation. BONES/JOINTS: Unremarkable. No acute fracture. RAD/Abdomen Single View IMPRESSION: Fecal retention in the colon consistent with constipation. Reading Location: [facility] CC: Dr. Bernard Nugent MD [employer]: Signed Normal [facility] Absolute lymphocyte countOrd ered By: Bernard Nugent on 10-30-2024 Lymphocytes Auto (Unsp spec) [#/Vol] 0.94 10*3/uL 0.83-4.51 [facility] Absolute neutrophil countOrd ered By: Bernard Nugent on 10-30-2024 Neutrophils (Bld) [#/Vol] 9.0 10*3/uL High 2.0-7.7 [facility] Anion gap in Serum or Plasma Ordered By: Bernard Nugent on 10-30-2024 Anion gap [Moles/Vol] 10 mmol/L 5-15 [facility] Automated lymphocyte count a s percentage of total leukocytesOrdered By: Bernard Nugent on 10-30-2024 Lymphocytes/100 WBC Auto (Unsp spec) 8.4 % Low 19-41 [facility] BUN/creatinine ratioOrdered By: Bernard Nugent on 10-30-2024 Urea nitrogen/Creatinine [Mass ratio] 10.8 mg/mg 10-20 [facility] Basophil percentageOrdered B y: Bernard Nugent on 10-30-2024 Basophils/100 WBC (Bld) 0.7 % 0-1 [facility] Bilirubin, totalOrdered By: Bernard Nugent on 10-30-2024 Bilirubin [Mass/Vol] 2.53 mg/dL High 0.00-1.30 [facility] CBC W/Diff, Automatedon 06-05 22-2024 Absolute Lymph 0.94 X10 3/uL Normal 0.83-4.51 [facility] Comment on above: Performed By: #### L 501.7300, L501.7400, L501.5500, L500.2500 #### [facility] [address] [place], [address] Absolute Neut 9.0 X10 3/uL High 2.0-7.7 [facility] Comment on above: Performed By: #### L 501.7300, L501.7400, L501.5500, L500.2500 #### [facility] [address] [place], [address] Basophils/100 WBC (Bld) 0.7 % Normal 0-1 [facility] Comment on above: Performed By: #### L 501.7300, L501.7400, L501.5500, L500.2500 #### [facility] [address] [place], [address] Eosinophils/100 WBC (Bld) 1.3 % Normal 0-5 [facility] Comment on above: Performed By: #### L 501.7300, L501.7400, L501.5500, L500.2500 #### [facility] [address] [place], [address] Erythrocyte distribution width (RBC) [Ratio] 13.2 % Normal 11.6-14.6 [facility] Comment on above: Performed By: #### L 501.7300, L501.7400, L501.5500, L500.2500 #### [facility] [address] [place], [address] Hematocrit (Bld) [Volume fraction] 37.8 % Low 40-54 [facility] Comment on above: Performed By: #### L 501.7300, L501.7400, L501.5500, L500.2500 #### [facility] [address] [place], [address] Hemoglobin (Bld) [Mass/Vol] 13.2 g/dL Normal 13.0-16.5 [facility] Comment on above: Performed By: #### L 501.7300, L501.7400, L501.5500, L500.2500 #### [facility] [address] [place], [address] IG% 0.500 Normal 0.0-0.9 [facility] Comment on above: Result Comment: IG% - Immature Granulocytes (promyelocytes, myelocytes and metamyelocytes) > 1% indicates that a LEFT SHIFT is Present. Performed By: #### L 501.7300, L501.7400, L501.5500, L500.2500 #### [facility] [address] [place], [address] Lymphocytes/100 WBC (Bld) 8.4 % Low 19-41 [facility] Comment on above: Performed By: #### L 501.7300, L501.7400, L501.5500, L500.2500 #### [facility] [address] [place], [address] MCH (RBC) [Entitic mass] 31.6 pg Normal 27.0-32.0 [facility] Comment on above: Performed By: #### L 501.7300, L501.7400, L501.5500, L500.2500 #### [facility] [address] [place], [address] MCHC (RBC) [Mass/Vol] 34.9 g/dL Normal 32-36 [facility] Comment on above: Performed By: #### L 501.7300, L501.7400, L501.5500, L500.2500 #### [facility] [address] [place], [address] MCV (RBC) [Entitic vol] 90.4 fL Normal 80-94 [facility] Comment on above: Performed By: #### L 501.7300, L501.7400, L501.5500, L500.2500 #### [facility] [address] [place], [address] Monocytes/100 WBC (Bld) 8.2 % Normal 0-10 [facility] Comment on above: Performed By: #### L 501.7300, L501.7400, L501.5500, L500.2500 #### [facility] [address] [place], [address] Neutrophils/100 WBC (Bld) 80.9 % High 47-70 [facility] Comment on above: Performed By: #### L 501.7300, L501.7400, L501.5500, L500.2500 #### [facility] [address] [place], [address] Nucleated RBC (Bld) [#/Vol] 0 10*3/uL Normal 0-5 [facility] Comment on above: Performed By: #### L 501.7300, L501.7400, L501.5500, L500.2500 #### [facility] [address] [place], [address] Platelet mean volume (Bld) [Entitic vol] 10.9 fL Normal 6.2-12.0 [facility] Comment on above: Performed By: #### L 501.7300, L501.7400, L501.5500, L500.2500 #### [facility] [address] [place], [address] Platelets (Bld) [#/Vol] 250 10*3/uL Normal 150-450 [facility] Comment on above: Performed By: #### L 501.7300, L501.7400, L501.5500, L500.2500 #### [facility] [address] [place], [address] RBC (Bld) [#/Vol] 4.18 10*6/uL Low 4.6-6.2 [facility] Comment on above: Performed By: #### L 501.7300, L501.7400, L501.5500, L500.2500 #### [facility] [address] [place], [address] RDW SD 43.7 fl Normal 35.1-43.9 [facility] Comment on above: Performed By: #### L 501.7300, L501.7400, L501.5500, L500.2500 #### [facility] [address] [place], [address] WBC (Bld) [#/Vol] 11.2 10*3/uL High 4.4-11.0 [facility] Comment on above: Performed By: #### L 501.7300, L501.7400, L501.5500, L500.2500 #### [facility] [address] [place], [address] Carbon dioxide, total [Moles /volume] in Central venous bloodOrdered By: Bernard Nugent on 10-30-2024 CO2 [Moles/Vol] 21.1 mmol/L 21.0-32.0 [facility] Chloride assayOrdered By: Vick Nugent on 10-30-2024 Chloride [Moles/Vol] 100 mmol/L 98-108 [facility] Comprehensive Metabolic Prof ilon 10-30-2024 Albumin [Mass/Vol] 3.7 g/dL Normal 3.4-4.8 [facility] Comment on above: Performed By: #### L 501.7300, L501.7400, L501.5500, L500.2500 #### [facility] [address] [place], [address] Albumin/Globulin [Mass ratio] 1.2 {ratio} Normal 0.9-2.4 [facility] Comment on above: Performed By: #### L 501.7300, L501.7400, L501.5500, L500.2500 #### [facility] [address] [place], [address] ALK PHOS 147 U/L High 40-129 [facility] Comment on above: Performed By: #### L 501.7300, L501.7400, L501.5500, L500.2500 #### [facility] [address] [place], [address] ALT [Catalytic activity/Vol] 20 U/L Normal <=46 [facility] Comment on above: Performed By: #### L 501.7300, L501.7400, L501.5500, L500.2500 #### [facility] [address] [place], [address] AST [Catalytic activity/Vol] 25 U/L Normal <=37 [facility] Comment on above: Result Comment: Hemo lysis present, Results??could be affected. ?? Performed By: #### L 501.7300, L501.7400, L501.5500, L500.2500 #### [facility] [address] [place], [address] Bilirubin [Mass/Vol] 2.53 mg/dL High 0.00-1.30 [facility] Comment on above: Performed By: #### L 501.7300, L501.7400, L501.5500, L500.2500 #### [facility] [address] [place], [address] BUN/CRE 10.8 RATIO Normal 10-20 [facility] Comment on above: Performed By: #### L 501.7300, L501.7400, L501.5500, L500.2500 #### [facility] [address] [place], [address] Calcium [Mass/Vol] 8.7 mg/dL Normal 7.6-11.0 [facility] Comment on above: Performed By: #### L 501.7300, L501.7400, L501.5500, L500.2500 #### [facility] [address] [place], [address] Chloride [Moles/Vol] 100 mmol/L Normal 98-108 [facility] Comment on above: Performed By: #### L 501.7300, L501.7400, L501.5500, L500.2500 #### [facility] [address] [place], [address] CO2 [Moles/Vol] 21.1 mmol/L Normal 21.0-32.0 [facility] Comment on above: Performed By: #### L [id number], L501.7400, L501.5500, L500.2500 #### [facility] [address] [place], [address] Creatinine [Mass/Vol] 1.41 mg/dL High 0.70-1.20 [facility] Comment on above: Performed By: #### L [id number], L501.7400, L501.5500, L500.2500 #### [facility] [address] [place], [address] GAP 10 Normal 5-15 [facility] Comment on above: Performed By: #### L [id number], L501.7400, L501.5500, L500.2500 #### [facility] [address] [place], [address] GFR/1.73 sq M.predicted among non-blacks MDRD (S/P/Bld) [Vol rate/Area] 48 mL/min/{1.73_m2} Low >60 [facility] Comment on above: Result Comment: mL/m in/1.73m2 CKD-EPI Creatinine Equation (2020) Performed By: #### L 501.7300, L501.7400, L501.5500, L500.2500 #### [facility] [address] [place], [address] Globulin (S) [Mass/Vol] 3.1 g/dL Normal 2.2-4.[address] [facility] Comment on above: Performed By: #### L [id number], L501.7400, L501.5500, L500.2500 #### [facility] [address] [place], [address] Glucose [Mass/Vol] 150 mg/dL High 70-99 [facility] Comment on above: Performed By: #### L 501.7300, L501.7400, L501.5500, L500.2500 #### [facility] [address] [place], [address] Potassium [Moles/Vol] 4.3 mmol/L Normal 3.3-5.1 [facility] Comment on above: Result Comment: Hemo lysis present, Results??could be affected. ?? Performed By: #### L 501.7300, L501.7400, L501.5500, L500.2500 #### [facility] [address] [place], [address] Sodium [Moles/Vol] 130 mmol/L Low 133-145 [facility] Comment on above: Performed By: #### L 501.7300, L501.7400, L501.5500, L500.2500 #### [facility] [address] [place], [address] T PROT 6.8 g/dL Normal 5.9-8.4 [facility] Comment on above: Performed By: #### L 501.7300, L501.7400, L501.5500, L500.2500 #### [facility] [address] [place], [address] Urea nitrogen [Mass/Vol] 15 mg/dL Normal 4-19 [facility] Comment on above: Performed By: #### L 501.7300, L501.7400, L501.5500, L500.2500 #### [facility] [address] [place], [address] Eosinophil percentageOrdered By: Bernard Nugent on 10-30-2024 Eosinophils/100 WBC (Bld) 1.3 % 0-5 [facility] Erythrocyte distribution wid th ratioOrdered By: [facility] on 10-30-2024 Erythrocyte distribution width (RBC) [Ratio] 13.2 % 11.6-14.6 [facility] Erythrocyte distribution wid th standard deviationOrdered By: [facility] on 10-30-2024 Erythrocyte distribution width (RBC) [Ratio] 43.7 fl 35.1-43.9 [facility] Glomerular filtration rate ( GFR) estimation/1.73 sq m using serum, plasma, or whole bOrdered By: Bernard Raffi on 10-30-2024 GFR/1.73 sq M.predicted among non-blacks MDRD (S/P/Bld) [Vol rate/Area] 48 mL/min/{1.73_m2} Low >60 [facility] Comment on above: mL/min/1.73m2 CKD-EP I Creatinine Equation (2020) Hematocrit Auto (Bld) [Volum e fraction]Ordered By: Bernard Nugent 10-30-2024 Hematocrit (Bld) [Volume fraction] 37.8 % Low 40-54 [facility] Hemoglobin measurementOrdere d By: Bernard Nugent on 10-30-2024 Hemoglobin (Bld) [Mass/Vol] 13.2 g/dL 13.0-16.5 [facility] Immature granulocytes/100 WB C Auto (Bld)Ordered By: Bernard Nugent 10-30-2024 Immature granulocytes/100 WBC (Bld) 0.500 % 0.0-0.9 [facility] Comment on above: IG% - Immature Granu locytes (promyelocytes, myelocytes and metamyelocytes) > 1% indicates that a LEFT SHIFT is Present. Laboratory - Chemistry and C hemistry - challengeOrdered By: eBrnard Tomlinsonok on 10-30-2024 AST [Catalytic activity/Vol] 25 U/L <38 [facility] Comment on above: Hemolysis present, R esults could be affected. MCV (mean corpuscular volume ) determinationOrdered By: Bernard Nugent on 10-30-2024 MCV (RBC) [Entitic vol] 90.4 fL 80-94 [facility] Magnesiumon 10-30-2024 Magnesium [Mass/Vol] 2.0 mg/dL Normal 1.5-2.2 [facility] Comment on above: Performed By: #### L 501.7300, L501.7400, L501.5500, L500.2500 #### [facility] [address] [place], [address] Magnesium measurement (mass/ volume)Ordered By: Bernard Nugent on 10-30-2024 Magnesium (Unsp spec) [Mass/Vol] 2.0 mg/dL 1.5-2.2 [facility] Mean corpuscular hemoglobin (MCH) determinationOrdered By: Bernard Tomlinson10-30-2024 MCH (RBC) [Entitic mass] 31.6 pg 27.0-32.0 [facility] Mean corpuscular hemoglobin concentration (MCHC) determinationOrdered By: Bernard Tomlinson10-30-2024 MCHC (RBC) [Mass/Vol] 34.9 g/dL 32-36 [facility] Mean platelet volume determi nationOrdered By: Bernard Tomlinson10-30-2024 Platelet mean volume (Bld) [Entitic vol] 10.9 fL 6.2-12.0 [facility] Monocyte percentageOrdered B y: Bernard Tomlinsonok on 10-30-2024 Monocytes/100 WBC (Bld) 8.2 % 0-10 [facility] Neutrophil percentageOrdered By: Bernard Tomlinsonok on 10-30-2024 Neutrophils/100 WBC (Bld) 80.9 % High 47-70 [facility] Nucleated red blood cell per centageOrdered By: Bernard Nugent on 10-30-2024 Nucleated RBC/100 WBC (Bld) [Ratio] 0 % 0-5 [facility] Phosphoruson 10-30-2024 Phosphate [Mass/Vol] 3.1 mg/dL Normal 2.7-4.5 [facility] Comment on above: Performed By: #### L 501.7300, L501.7400, L501.5500, L500.2500 #### [facility] [place], [address] Platelet countOrdered By: Vick Nugent on 10-30-2024 Platelets (Bld) [#/Vol] 250 10*3/uL 150-450 [facility] Potassium measurement (mass/ volume)Ordered By: Bernard Nugent on 10-30-2024 Potassium (Unsp spec) [Mass/Vol] 4.3 mmol/L 3.3-5.1 [facility] Comment on above: Hemolysis present, R esults could be affected. RBC Auto (Bld) [#/Vol]Ordere d By: Bernard Nugent on 10-30-2024 RBC (Bld) [#/Vol] 4.18 10*6/uL Low 4.6-6.2 [facility] Serum creatinine measurement (mass/volume)Ordered By: Bernard Nugent on 10-30-2024 Creatinine [Mass/Vol] 1.41 mg/dL High 0.70-1.20 [facility] Serum globulin measurementOr dered By: Bernard Nugent on 10-30-2024 Globulin (S) [Mass/Vol] 3.1 g/dL 2.2-4.2 [facility] Serum glucose measurement (m ass/volume)Ordered By: Bernard Nugent on 10-30-2024 Glucose [Mass/Vol] 150 mg/dL High 70-99 [facility] Serum or plasma alanine erickson otransferase (ALT) measurementOrdered By: Bernard Nugent on 10-30-2024 ALT [Catalytic activity/Vol] 20 U/L <47 [facility] Serum or plasma albumin sita urement (mass/volume)Ordered By: Bernard Nugent on 10-30-2024 Albumin [Mass/Vol] 3.7 g/dL 3.4-4.8 [facility] Serum or plasma albumin/glob ulin mass ratioOrdered By: Bernard Nugent on 10-30-2024 Albumin/Globulin [Mass ratio] 1.2 {ratio} 0.9-2.4 [facility] Serum or plasma alkaline florencia sphatase measurementOrdered By: Bernard Nugent on 10-30-2024 ALP [Catalytic activity/Vol] 147 U/L High 40-129 [facility] Serum or plasma calcium sita urement (mass/volume)Ordered By: Bernard Nugent 10-30-2024 Calcium [Mass/Vol] 8.7 mg/dL 7.6-11.0 [facility] Serum or plasma urea nitroge n measurement (mass/volume)Ordered By: Bernard Nugent 10-30-2024 Urea nitrogen [Mass/Vol] 15 mg/dL 4-19 [facility] Sodium levelOrdered By: Bernard Nugent 10-30-2024 Sodium [Moles/Vol] 130 mmol/L Low 133-145 [facility] Total proteinOrdered By: Bernard Nugent 10-30-2024 Protein [Mass/Vol] 6.8 g/dL 5.9-8.4 [facility] White blood cell (WBC) count Ordered By: Bernard Nugent 10-30-2024 WBC (Bld) [#/Vol] 11.2 10*3/uL High 4.4-11.0 [facility] Absolute lymphocyte countOrd ered By: Bernard Nugent on 10-22-2024 Lymphocytes Auto (Unsp spec) [#/Vol] 0.95 10*3/uL 0.83-4.51 [facility] Absolute neutrophil countOrd ered By: Bernard Nugent on 10-22-2024 Neutrophils (Bld) [#/Vol] 9.8 10*3/uL High 2.0-7.7 [facility] Anion gap in Serum or Plasma Ordered By: Bernard Nugent 10-22-2024 Anion gap [Moles/Vol] 13 mmol/L 5-15 [facility] Automated lymphocyte count a s percentage of total leukocytesOrdered By: Bernard Nugent 10-22-2024 Lymphocytes/100 WBC Auto (Unsp spec) 7.8 % Low 19-41 [facility] BUN/creatinine ratioOrdered By: Bernard Nugent 10-22-2024 Urea nitrogen/Creatinine [Mass ratio] 9.4 mg/mg Low 10-20 [facility] Basophil percentageOrdered B y: Bernard Nugent on 10-22-2024 Basophils/100 WBC (Bld) 0.6 % 0-1 [facility] Bilirubin, totalOrdered By: Bernard Nugent on 10-22-2024 Bilirubin [Mass/Vol] 2.40 mg/dL High 0.00-1.30 [facility] CBC W/Diff, Automatedon Absolute Lymph 0.95 X10 3/uL Normal 0.83-4.51 [facility] Comment on above: Performed By: #### L 501.080 #### [facility] [address] [place], [address] Absolute Neut 9.8 X10 3/uL High 2.0-7.7 [facility] Comment on above: Performed By: #### L 501.080 #### [facility] [address] [place], [address] Basophils/100 WBC (Bld) 0.6 % Normal 0-1 [facility] Comment on above: Performed By: #### L 501.080 #### [facility] [address] [place], [address] Eosinophils/100 WBC (Bld) 1.8 % Normal 0-5 [facility] Comment on above: Performed By: #### L 501.080 #### [facility] [address] [place], [address] Erythrocyte distribution width (RBC) [Ratio] 13.2 % Normal 11.6-14.6 [facility] Comment on above: Performed By: #### L 501.080 #### [facility] [address] [place], [address] Hematocrit (Bld) [Volume fraction] 38.4 % Low 40-54 [facility] Comment on above: Performed By: #### L 501.080 #### [facility] [address] [place], [address] Hemoglobin (Bld) [Mass/Vol] 13.3 g/dL Normal 13.0-16.5 [facility] Comment on above: Performed By: #### L 501.080 #### [facility] [address] [place], [address] IG% 1.000 High 0.0-0.9 [facility] Comment on above: Result Comment: IG% - Immature Granulocytes (promyelocytes, myelocytes and metamyelocytes) > 1% indicates that a LEFT SHIFT is Present. Performed By: #### L 501.080 #### [facility] [address] [place], [address] Lymphocytes/100 WBC (Bld) 7.8 % Low 19-41 [facility] Comment on above: Performed By: #### L [id number] #### [facility] [address] [place], [address] MCH (RBC) [Entitic mass] 31.1 pg Normal 27.0-32.0 [facility] Comment on above: Performed By: #### L [id number] #### [facility] [address] [place], [address] MCHC (RBC) [Mass/Vol] 34.6 g/dL Normal 32-36 [facility] Comment on above: Performed By: #### L [id number] #### [facility] [address] [place], [address] MCV (RBC) [Entitic vol] 89.7 fL Normal 80-[address] [facility] Comment on above: Performed By: #### L [id number] #### [facility] [address] [place], [address] Monocytes/100 WBC (Bld) 9.0 % Normal 0-10 [facility] Comment on above: Performed By: #### L [id number] #### [facility] [address] [place], [address] Neutrophils/100 WBC (Bld) 79.8 % High 47-70 [facility] Comment on above: Performed By: #### L 501.080 #### [facility] [address] [place], [address] Nucleated RBC (Bld) [#/Vol] 0 10*3/uL Normal 0-5 [facility] Comment on above: Performed By: #### L 501.080 #### [facility] [address] [place], [address] Platelet mean volume (Bld) [Entitic vol] 10.6 fL Normal 6.2-12.0 [facility] Comment on above: Performed By: #### L 501.080 #### [facility] [address] [place], [address] Platelets (Bld) [#/Vol] 285 10*3/uL Normal 150-450 [facility] Comment on above: Performed By: #### L 501.080 #### [facility] [address] [place], [address] RBC (Bld) [#/Vol] 4.28 10*6/uL Low 4.6-6.2 [facility] Comment on above: Performed By: #### L 501.080 #### [facility] [address] [place], [address] RDW SD 43.7 fl Normal 35.1-43.9 [facility] Comment on above: Performed By: #### L 501.080 #### [facility] [address] [place], [address] WBC (Bld) [#/Vol] 12.2 10*3/uL High 4.4-11.0 [facility] Comment on above: Performed By: #### L 501.080 #### [facility] [address] [place], [address] Calculated very low density lipoprotein (VLDL) cholesterol measurementOrdered By: Bernard Nugent on 10-22-2024 Calculated very low density lipoprotein (VLDL) cholesterol measurement 12 mg/dL 5-40 [facility] Carbon dioxide, total [Moles /volume] in Central venous bloodOrdered By: Bernard Nugent on 10-22-2024 CO2 [Moles/Vol] 21.3 mmol/L 21.0-32.0 [facility] Chloride assayOrdered By: Vick Nugent on 10-22-2024 Chloride [Moles/Vol] 97 mmol/L Low 98-108 [facility] Comprehensive Metabolic Prof ilon 10-22-2024 Albumin [Mass/Vol] 3.8 g/dL Normal 3.4-4.8 [facility] Comment on above: Performed By: #### L 501.080 #### [facility] [address] [place], [address] Albumin/Globulin [Mass ratio] 1.4 {ratio} Normal 0.9-2.4 [facility] Comment on above: Performed By: #### L 501.080 #### [facility] [address] [place], [address] ALK PHOS 174 U/L High 40-129 [facility] Comment on above: Performed By: #### L 501.080 #### [facility] [address] [place], [address] ALT [Catalytic activity/Vol] 18 U/L Normal <=46 [facility] Comment on above: Performed By: #### L 501.080 #### [facility] [address] [place], [address] AST [Catalytic activity/Vol] 21 U/L Normal <=37 [facility] Comment on above: Performed By: #### L 501.080 #### [facility] [address] [place], [address] Bilirubin [Mass/Vol] 2.40 mg/dL High 0.00-1.30 [facility] Comment on above: Performed By: #### L 501.080 #### [facility] [address] [place], [address] BUN/CRE 9.4 RATIO Low 10-20 [facility] Comment on above: Performed By: #### L 501.080 #### [facility] [address] [place], [address] Calcium [Mass/Vol] 8.7 mg/dL Normal 7.6-11.0 [facility] Comment on above: Performed By: #### L [id number] #### [facility] [address] [place], [address] Chloride [Moles/Vol] 97 mmol/L Low 98-108 [facility] Comment on above: Performed By: #### L 501.080 #### [facility] [address] [place], [address] CO2 [Moles/Vol] 21.3 mmol/L Normal 21.0-32.0 [facility] Comment on above: Performed By: #### L 501.080 #### [facility] [address] [place], [address] Creatinine [Mass/Vol] 1.22 mg/dL High 0.70-1.20 [facility] Comment on above: Performed By: #### L [id number] #### [facility] [address] [place], [address] GAP 13 Normal 5-15 [facility] Comment on above: Performed By: #### L 501.080 #### [facility] [address] [place], [address] GFR/1.73 sq M.predicted among non-blacks MDRD (S/P/Bld) [Vol rate/Area] 57 mL/min/{1.73_m2} Low >60 [facility] Comment on above: Result Comment: mL/m in/1.73m2 CKD-EPI Creatinine Equation (2020) Performed By: #### L 501.080 #### [facility] [address] [place], [address] Globulin (S) [Mass/Vol] 2.7 g/dL Normal 2.2-4.2 [facility] Comment on above: Performed By: #### L 501.080 #### [facility] [address] [place], [address] Glucose [Mass/Vol] 137 mg/dL High 70-99 [facility] Comment on above: Performed By: #### L 501.080 #### [facility] [address] [place], [address] Potassium [Moles/Vol] 4.4 mmol/L Normal 3.3-5.1 [facility] Comment on above: Performed By: #### L 501.080 #### [facility] [address] [place], [address] Sodium [Moles/Vol] 132 mmol/L Low 133-145 [facility] Comment on above: Performed By: #### L 501.080 #### [facility] [address] [place], [address] T PROT 6.5 g/dL Normal 5.9-8.4 [facility] Comment on above: Performed By: #### L 501.080 #### [facility] [address] [place], [address] Urea nitrogen [Mass/Vol] 12 mg/dL Normal 4-19 [facility] Comment on above: Performed By: #### L 501.080 #### [facility] [address] [place], [place], [address] Eosinophil percentageOrdered By: Bernard Nugent on 10-22-2024 Eosinophils/100 WBC (Bld) 1.8 % 0-5 [facility] Erythrocyte distribution wid th ratioOrdered By: Bernard Nugent on 10-22-2024 Erythrocyte distribution width (RBC) [Ratio] 13.2 % 11.6-14.6 [facility] Erythrocyte distribution wid th standard deviationOrdered By: Bernard Nugent on 10-22-2024 Erythrocyte distribution width (RBC) [Ratio] 43.7 fl 35.1-43.9 [facility] Glomerular filtration rate ( GFR) estimation/1.73 sq m using serum, plasma, or whole bOrdered By: Bernard Nugent on 10-22-2024 GFR/1.73 sq M.predicted among non-blacks MDRD (S/P/Bld) [Vol rate/Area] 57 mL/min/{1.73_m2} Low >60 [facility] Comment on above: mL/min/1.73m2 CKD-EP I Creatinine Equation (2020) Hematocrit Auto (Bld) [Volum e fraction]Ordered By: Bernard Raffi on 10-22-2024 Hematocrit (Bld) [Volume fraction] 38.4 % Low 40-54 [facility] Hemoglobin A1con 10-22-2024 HbA1c (Bld) [Mass fraction] 6.2 % High <=5.6 [facility] Comment on above: Order Comment: ADD O WANDER Result Comment: Norm al < 5.7 % Prediabetic 5.7 - 6.4 % Diabetic >or= 6.5 % Please note range changes. Performed By: #### L 501.080 #### [facility] [address] [place], [place], [address] Hemoglobin A1c percentageOrd ered By: Bernard Nugent on 10-22-2024 HbA1c (Bld) [Mass fraction] 6.2 % High <5.7 [facility] Comment on above: Normal < 5.7 % Predi abetic 5.7 - 6.4 % Diabetic >or= 6.5 % Please note range changes. Hemoglobin measurementOrdere d By: Bernard Nugent on 10-22-2024 Hemoglobin (Bld) [Mass/Vol] 13.3 g/dL 13.0-16.5 [facility] Immature granulocytes/100 WB C Auto (Bld)Ordered By: Bernard Raffi on 10-22-2024 Immature granulocytes/100 WBC (Bld) 1.000 % High 0.0-0.9 [facility] Comment on above: IG% - Immature Granu locytes (promyelocytes, myelocytes and metamyelocytes) > 1% indicates that a LEFT SHIFT is Present. LDL calc ser/plasOrdered By: Bernard Raffi on 10-22-2024 Cholesterol in LDL [Mass/Vol] 33 mg/dL [facility] Comment on above: Qcmwuzqxen=136-172 m g/dL & Higher Kcjd=773 mg/dL or greater Laboratory - Chemistry and C hemistry - challengeOrdered By: Bernard Raffi on 10-22-2024 AST [Catalytic activity/Vol] 21 U/L <38 [facility] Lipid Profileon 10-22-2024 CHOL:HDL 1.92 Normal [facility] Comment on above: Performed By: #### L 501.080 #### [facility] [address] [place], [place], [address] Cholesterol [Mass/Vol] 95 mg/dL Normal <=200 [facility] Comment on above: Result Comment: Chol esterol level, Desirable <200 mg/dL Borderline high cholesterol 200-239 mg/dL High cholesterol >=240 mg/dL Recommendations of the NCEP Adult Treatment Panel for the following risk-cutoff thresholds for the [place] population. Performed By: #### L 501.080 #### [facility] [address] [place], [place], [address] Cholesterol in HDL [Mass/Vol] 49 mg/dL Normal [facility] Comment on above: Result Comment: [place] onal Cholesterol Education Program (NCEP) guidelines: <40 mg/dL: Low HDL-cholesterol (major risk factor for CHD) >= 60 mg/dL: High HDL-cholesterol (negative risk factor for CHD) HDL-cholesterol is affected by a number of factors, e.g. smoking, exercise, hormones, sex and age. Performed By: #### L 501.080 #### [facility] [address] [place], [address] Cholesterol in LDL [Mass/Vol] 33 mg/dL Normal [facility] Comment on above: Result Comment: Bord kmejbg=947-478 mg/dL Higher Huym=319 mg/dL or greater Performed By: #### L 501.080 #### [facility] [address] [place], [address] Cholesterol in VLDL [Mass/Vol] 12 mg/dL Normal 5-40 [facility] Comment on above: Performed By: #### L 501.080 #### [facility] [address] [place], [address] Triglyceride [Mass/Vol] 61 mg/dL Normal [facility] Comment on above: Result Comment: The drugs N-Acetylcysteine and Metamizole may falsely depress this assay. Normal range: <150 mg/dL Borderline High: 150-199 mg/dL High: 200-499 mg/dL Very High: >500 mg/dL Performed By: #### L 501.080 #### [facility] [address] [place], [address] MCV (mean corpuscular volume ) determinationOrdered By: Bernard Nugent on 10-22-2024 MCV (RBC) [Entitic vol] 89.7 fL 80-[address] [facility] Mean corpuscular hemoglobin (MCH) determinationOrdered By: Bernard Nugent on 10-22-2024 MCH (RBC) [Entitic mass] 31.1 pg 27.0-32.0 [facility] Mean corpuscular hemoglobin concentration (MCHC) determinationOrdered By: Bernard Nugent on 10-22-2024 MCHC (RBC) [Mass/Vol] 34.6 g/dL 32-36 [facility] Mean platelet volume determi nationOrdered By: Bernard Nugent on 10-22-2024 Platelet mean volume (Bld) [Entitic vol] 10.6 fL 6.2-12.0 [facility] Monocyte percentageOrdered B y: Bernard Nugent on 10-22-2024 Monocytes/100 WBC (Bld) 9.0 % 0-10 [facility] Neutrophil percentageOrdered By: Bernard Nugent on 10-22-2024 Neutrophils/100 WBC (Bld) 79.8 % High 47-70 [facility] Nucleated red blood cell per centageOrdered By: Bernard Nugent on 10-22-2024 Nucleated RBC/100 WBC (Bld) [Ratio] 0 % 0-5 [facility] Platelet countOrdered By: Vick Nugent on 10-22-2024 Platelets (Bld) [#/Vol] 285 10*3/uL 150-450 [facility] Potassium measurement (mass/ volume)Ordered By: Bernard Nugent on 10-22-2024 Potassium (Unsp spec) [Mass/Vol] 4.4 mmol/L 3.3-5.1 [facility] RBC Auto (Bld) [#/Vol]Ordere d By: Bernard Nugent on 10-22-2024 RBC (Bld) [#/Vol] 4.28 10*6/uL Low 4.6-6.2 [facility] Screening total cholesterol/ high density lipoprotein (HDL) cholesterol ratioOrdered By: Bernard Nugent 10-22-2024 Cholesterol.total/Choles terol in HDL [Mass ratio] 1.92 {ratio} [facility] Serum creatinine measurement (mass/volume)Ordered By: Bernard Nugent on 10-22-2024 Creatinine [Mass/Vol] 1.22 mg/dL High 0.70-1.20 [facility] Serum globulin measurementOr dered By: Bernard Nugent 10-22-2024 Globulin (S) [Mass/Vol] 2.7 g/dL 2.2-4.2 [facility] Serum glucose measurement (m ass/volume)Ordered By: Bernard Nugent 10-22-2024 Glucose [Mass/Vol] 137 mg/dL High 70-99 [facility] Serum or plasma alanine erickson otransferase (ALT) measurementOrdered By: Bernard Nugent 10-22-2024 ALT [Catalytic activity/Vol] 18 U/L <47 [facility] Serum or plasma albumin sita urement (mass/volume)Ordered By: Bernard Nugent 10-22-2024 Albumin [Mass/Vol] 3.8 g/dL 3.4-4.8 [facility] Serum or plasma albumin/glob ulin mass ratioOrdered By: Bernard Nugent 10-22-2024 Albumin/Globulin [Mass ratio] 1.4 {ratio} 0.9-2.4 [facility] Serum or plasma alkaline florencia sphatase measurementOrdered By: Bernard Nugent 10-22-2024 ALP [Catalytic activity/Vol] 174 U/L High 40-129 [facility] Serum or plasma calcium sita urement (mass/volume)Ordered By: Bernard Nugent 10-22-2024 Calcium [Mass/Vol] 8.7 mg/dL 7.6-11.0 [facility] Serum or plasma cholesterol in HDL measurement (mass/volume)Ordered By: Bernard Nugent 10-22-2024 Cholesterol in HDL [Mass/Vol] 49 mg/dL >40 [facility] Comment on above: National Cholesterol Education Program (NCEP) guidelines:<40 mg/dL: Low HDL-cholesterol (major risk factor for CHD)>= 60 mg/dL: High HDL-cholesterol (negative risk factor for CHD)HDL-cholesterol is affected by a number of factors, e.g. smoking, exercise, hormones, sex and age. Serum or plasma cholesterol measurement (mass/volume)Ordered By: Bernard Nugent 10-22-2024 Cholesterol [Mass/Vol] 95 mg/dL <201 [facility] Comment on above: Cholesterol level, D esirable <200 mg/dLBorderline high cholesterol 200-239 mg/dLHigh cholesterol >=240 mg/dLRecommendations of the NCEP Adult Treatment Panel for the following risk-cutoff thresholds for the [place] population. Serum or plasma urea nitroge n measurement (mass/volume)Ordered By: Bernard Nugent 10-22-2024 Urea nitrogen [Mass/Vol] 12 mg/dL 4-19 [facility] Sodium levelOrdered By: Bernard Nugent 10-22-2024 Sodium [Moles/Vol] 132 mmol/L Low 133-145 [facility] TSH DL <= 0.005 mIU/L QnOrde red By: Bernard Nugent on 10-22-2024 TSH Qn 2.130 uIU/mL 0.300-4.200 [facility] Thyroid Stim Hormone (TSH)on 10-22-2024 TSH 2.130 uIU/mL Normal 0.300-4.200 [facility] Comment on above: Performed By: #### L 501.080 #### [facility] [address] [place], [place], [id number] Total proteinOrdered By: Bernard Nugent on 10-22-2024 Protein [Mass/Vol] 6.5 g/dL 5.9-8.4 [facility] Triglycerides measurementOrd ered By: Bernard Nugent on 10-22-2024 Triglyceride [Mass/Vol] 61 mg/dL <199 [facility] Comment on above: The drugs N-Acetylcy steine and Metamizole may falsely depress this assay. Normal range: <150 mg/dLBorderline High: 150-199 mg/dLHigh: 200-499 mg/dLVery High: >500 mg/dL Vitamin D,25 Hydroxyon 10-22 Vitamin D 25-OH 20.9 ng/mL Low 30-100 [facility] Comment on above: Result Comment: Mary min D Status Deficiency: <20 ng/mL (50nmol/L) Insufficiency: 20-30 ng/mL (50-75 nmol/L) Sufficiency: 30-100 ng/mL (75-250 nmol/L) Toxicity: >100 ng/mL (>250 nmol/L) Performed By: #### L 501.080 #### [facility] [address] [place], [place], [address] White blood cell (WBC) count Ordered By: Bernard Nugent on 10-22-2024 WBC (Bld) [#/Vol] 12.2 10*3/uL High 4.4-11.0 [facility] Absolute lymphocyte countOrd ered By: Bernard Nugent on 07-27-2024 Lymphocytes Auto (Unsp spec) [#/Vol] 0.92 10*3/uL 0.83-4.51 [facility] Absolute neutrophil countOrd ered By: Bernard Nugent on 07-27-2024 Neutrophils (Bld) [#/Vol] 4.5 10*3/uL 2.0-7.7 [facility] Anion gap in Serum or Plasma Ordered By: Bernard Nugent on 07-27-2024 Anion gap [Moles/Vol] 11 mmol/L 5- [facility] Automated lymphocyte count a s percentage of total leukocytesOrdered By: Bernard Raffi on 07-27-2024 Lymphocytes/100 WBC Auto (Unsp spec) 14.4 % Low [facility] BUN/creatinine ratioOrdered By: Bernard Tomlinsonok on 07-27-2024 Urea nitrogen/Creatinine [Mass ratio] 11.5 mg/mg 03-08 [facility] Basophil percentageOrdered B y: Bernard Raffi on 07-27-2024 Basophils/100 WBC (Bld) 0.8 % 0-1 [facility] Bilirubin, totalOrdered By: Bernard Raffi on 07-27-2024 Bilirubin [Mass/Vol] 1.41 mg/dL High 0.00-1.30 [facility] CBC W/Diff, Automatedon 07-18 Absolute Lymph 0.92 X10 3/uL Normal 0.83-4.51 [facility] Comment on above: Performed By: #### L 501.080 #### [facility] [address] [place], [address] Absolute Neut 4.5 X10 3/uL Normal 2.0-7.7 [facility] Comment on above: Performed By: #### L 501.080 #### [facility] [address] [place], [address] Basophils/100 WBC (Bld) 0.8 % Normal 0-1 [facility] Comment on above: Performed By: #### L 501.080 #### [facility] [address] [place], [address] Eosinophils/100 WBC (Bld) 3.3 % Normal 0-5 [facility] Comment on above: Performed By: #### L 501.080 #### [facility] [address] [place], [address] Erythrocyte distribution width (RBC) [Ratio] 13.0 % Normal 11.6-14.6 [facility] Comment on above: Performed By: #### L 501.080 #### [facility] [address] [place], [address] Hematocrit (Bld) [Volume fraction] 34.5 % Low 40-54 [facility] Comment on above: Performed By: #### L 501.080 #### [facility] [address] [place], [address] Hemoglobin (Bld) [Mass/Vol] 12.5 g/dL Low 13.0-16.5 [facility] Comment on above: Performed By: #### L 501.080 #### [facility] [address] [place], [address] IG% 0.600 Normal 0.0-0.9 [facility] Comment on above: Result Comment: IG% - Immature Granulocytes (promyelocytes, myelocytes and metamyelocytes) > 1% indicates that a LEFT SHIFT is Present. Performed By: #### L 501.080 #### [facility] [address] [place], [address] Lymphocytes/100 WBC (Bld) 14.4 % Low 19-41 [facility] Comment on above: Performed By: #### L [id number] #### [facility] [address] [place], [address] MCH (RBC) [Entitic mass] 31.9 pg Normal 27.0-32.0 [facility] Comment on above: Performed By: #### L [id number] #### [facility] [address] [place], [address] MCHC (RBC) [Mass/Vol] 36.2 g/dL High 32-36 [facility] Comment on above: Performed By: #### L [id number] #### [facility] [address] [place], [address] MCV (RBC) [Entitic vol] 88.0 fL Normal 80-94 [facility] Comment on above: Performed By: #### L 501.080 #### [facility] [address] [place], [address] Monocytes/100 WBC (Bld) 11.0 % High 0-10 [facility] Comment on above: Performed By: #### L 501.080 #### [facility] [address] [place], [address] Neutrophils/100 WBC (Bld) 69.9 % Normal 47-70 [facility] Comment on above: Performed By: #### L 501.080 #### [facility] [address] [place], [address] Nucleated RBC (Bld) [#/Vol] 0 10*3/uL Normal 0-5 [facility] Comment on above: Performed By: #### L 501.080 #### [facility] [address] [place], [address] Platelet mean volume (Bld) [Entitic vol] 10.6 fL Normal 6.2-12.0 [facility] Comment on above: Performed By: #### L 501.080 #### [facility] [address] [place], [address] Platelets (Bld) [#/Vol] 213 10*3/uL Normal 150-450 [facility] Comment on above: Performed By: #### L 501.080 #### [facility] [address] [place], [address] RBC (Bld) [#/Vol] 3.92 10*6/uL Low 4.6-6.2 [facility] Comment on above: Performed By: #### L 501.080 #### [facility] [address] [place], [address] RDW SD 42.2 fl Normal 35.1-43.9 [facility] Comment on above: Performed By: #### L 501.080 #### [facility] [address] [place], [address] WBC (Bld) [#/Vol] 6.4 10*3/uL Normal 4.4-11.0 [facility] Comment on above: Performed By: #### L 501.080 #### [facility] [address] [place], [address] Calculated very low density lipoprotein (VLDL) cholesterol measurementOrdered By: Bernard Nugent on 07-27-2024 Calculated very low density lipoprotein (VLDL) cholesterol measurement 15 mg/dL [facility] VLDL Cholesterol 15 mg/dL [facility] Carbon dioxide, total [Moles /volume] in Central venous bloodOrdered By: Bernard Nugent on 07-27-2024 CO2 [Moles/Vol] 22.3 mmol/L 21.0-32.0 [facility] Chloride assayOrdered By: Vick Nugent on 07-27-2024 Chloride [Moles/Vol] 93 mmol/L Low 98-108 [facility] Comprehensive Metabolic Prof ilon 07-27-2024 Albumin [Mass/Vol] 3.7 g/dL Normal 3.4-4.8 [facility] Comment on above: Performed By: #### L [id number], L100.0100 #### [facility] [address] [place], [address] Albumin/Globulin [Mass ratio] 1.4 {ratio} Normal 0.9-2.4 [facility] Comment on above: Performed By: #### L [id number], L100.0100 #### [facility] [address] [place], [address] ALK PHOS 131 U/L High 40-129 [facility] Comment on above: Performed By: #### L [id number], L100.0100 #### [facility] [address] [place], [address] ALT [Catalytic activity/Vol] 26 U/L Normal <=46 [facility] Comment on above: Performed By: #### L [id number], L100.0100 #### [facility] [address] [place], [address] AST [Catalytic activity/Vol] 35 U/L Normal <=37 [facility] Comment on above: Performed By: #### L [id number], L100.0100 #### [facility] [address] [place], [address] Bilirubin [Mass/Vol] 1.41 mg/dL High 0.00-1.30 [facility] Comment on above: Performed By: #### L [id number], L100.0100 #### [facility] [address] [place], [address] BUN/CRE 11.5 RATIO Normal 10-20 [facility] Comment on above: Performed By: #### L [id number], L100.0100 #### [facility] [address] [place], [address] Calcium [Mass/Vol] 8.4 mg/dL Normal 7.6-11.0 [facility] Comment on above: Performed By: #### L [id number], L100.0100 #### [facility] [address] [place], [address] Chloride [Moles/Vol] 93 mmol/L Low 98-108 [facility] Comment on above: Performed By: #### L [id number], L100.0100 #### [facility] [address] [place], [address] CO2 [Moles/Vol] 22.3 mmol/L Normal 21.0-32.0 [facility] Comment on above: Performed By: #### L [id number], L100.0100 #### [facility] [address] [place], [address] Creatinine [Mass/Vol] 1.23 mg/dL High 0.70-1.20 [facility] Comment on above: Performed By: #### L [id number], L100.0100 #### [facility] [address] [place], [address] GAP 11 Normal 5-15 [facility] Comment on above: Performed By: #### L [id number], L100.0100 #### [facility] [address] [place], [address] GFR/1.73 sq M.predicted among non-blacks MDRD (S/P/Bld) [Vol rate/Area] 56 mL/min/{1.73_m2} Low >60 [facility] Comment on above: Result Comment: mL/m in/1.73m2 CKD-EPI Creatinine Equation (2020) Performed By: #### L [id number], L100.0100 #### [facility] [address] [place], [address] Globulin (S) [Mass/Vol] 2.6 g/dL Normal 2.2-4.[address] [facility] Comment on above: Performed By: #### L [id number], L100.0100 #### [facility] [address] [place], [address] Glucose [Mass/Vol] 118 mg/dL High 70-99 [facility] Comment on above: Performed By: #### L [id number], L100.0100 #### [facility] [address] [place], [address] Potassium [Moles/Vol] 4.5 mmol/L Normal 3.3-5.1 [facility] Comment on above: Performed By: #### L [id number], L100.0100 #### [facility] [address] [place], [address] Sodium [Moles/Vol] 126 mmol/L Low 133-145 [facility] Comment on above: Performed By: #### L [id number], L100.0100 #### [facility] [address] [place], [address] T PROT 6.3 g/dL Normal 5.9-8.4 [facility] Comment on above: Performed By: #### L [id number], L100.0100 #### [facility] [address] [place], [address] Urea nitrogen [Mass/Vol] 14 mg/dL Normal 4-19 [facility] Comment on above: Performed By: #### L [id number], L100.0100 #### [facility] [address] [place], [address] Eosinophil percentageOrdered By: Bernard Nugent on 07-27-2024 Eosinophils/100 WBC (Bld) 3.3 % 0-5 [facility] Erythrocyte distribution wid th ratioOrdered By: Bernard Nugent on 07-27-2024 Erythrocyte distribution width (RBC) [Ratio] 13.0 % 11.6-14.6 [facility] Erythrocyte distribution wid th standard deviationOrdered By: Bernard Nugent on 07-27-2024 Erythrocyte distribution width (RBC) [Entitic vol] 42.2 fL 35.1-43.9 [facility] Erythrocyte distribution width (RBC) [Ratio] 42.2 fl 35.1-43.9 [facility] GFR/1.73 sq M.predicted berna g non-blacks MDRD (S/P/Bld) [Vol rate/Area]Ordered By: Bernard Nugent on 07-27-2024 Estimated GFR (MDRD) Non-Af Amer 56 Low >60 [facility] Comment on above: mL/min/1.73m2 CKD-EP I Creatinine Equation (2020) Glomerular filtration rate ( GFR) estimation/1.73 sq m using serum, plasma, or whole bOrdered By: Bernard Nugent on 07-27-2024 GFR/1.73 sq M.predicted among non-blacks MDRD (S/P/Bld) [Vol rate/Area] 56 mL/min/{1.73_m2} Low >60 [facility] Comment on above: mL/min/1.73m2 CKD-EP I Creatinine Equation (2020) Hematocrit Auto (Bld) [Volum e fraction]Ordered By: Bernard Nugent on 07-27-2024 Hematocrit (Bld) [Volume fraction] 34.5 % Low 40-54 [facility] Hemoglobin A1con 07-27-2024 HbA1c (Bld) [Mass fraction] 6.6 % Normal <=5.6 [facility] Comment on above: Performed By: #### L 500.4050, L100.0100 #### [facility] [address] [place] [address], [id number] Hemoglobin A1c percentageOrd ered By: Bernard Nugent on 07-27-2024 HbA1c (Bld) [Mass fraction] 6.6 % >5.7 [facility] Hemoglobin measurementOrdere d By: Bernard Nugent on 07-27-2024 Hemoglobin (Bld) [Mass/Vol] 12.5 g/dL Low 13.0-16.5 [facility] Immature granulocytes/100 WB C Auto (Bld)Ordered By: Bernard Nugent on 07-27-2024 Immature granulocytes/100 WBC (Bld) 0.600 % 0.0-0.9 [facility] Comment on above: IG% - Immature Granu locytes (promyelocytes, myelocytes and metamyelocytes) > 1% indicates that a LEFT SHIFT is Present. L506.1001on 07-27-2024 Vitamin D 25-OH 21.6 ng/mL Low 30-100 [facility] Comment on above: Result Comment: Mary min D Status Deficiency: <20 ng/mL (50nmol/L) Insufficiency: 20-30 ng/mL (50-75 nmol/L) Sufficiency: 30-100 ng/mL (75-250 nmol/L) Toxicity: >100 ng/mL (>250 nmol/L) Performed By: #### L 500.4050, L100.0100 #### [facility] [address] [place], [address] LDL calc ser/plasOrdered By: Bernard Nugent on 07-27-2024 Cholesterol in LDL [Mass/Vol] 22 mg/dL [facility] Comment on above: Kevhedvfly=576-964 m g/dL & Higher Yaml=213 mg/dL or greater LDL Cholesterol, Calculated 22 mg/dL [facility] Comment on above: Pvhjlfdels=622-125 m g/dL & Higher Xvzj=475 mg/dL or greater Laboratory - Chemistry and C hemistry - challengeOrdered By: Bernard Nugent on 07-27-2024 AST [Catalytic activity/Vol] 35 U/L <38 [facility] Lipid Profileon 07-27-2024 CHOL:HDL 1.59 Normal [facility] Comment on above: Performed By: #### L 500.4050, L100.0100 #### [facility] [address] [place], [address] Cholesterol [Mass/Vol] 101 mg/dL Normal <=200 [facility] Comment on above: Result Comment: Chol esterol level, Desirable <200 mg/dL Borderline high cholesterol 200-239 mg/dL High cholesterol >=240 mg/dL Recommendations of the NCEP Adult Treatment Panel for the following risk-cutoff thresholds for the [place] population. Performed By: #### L 500.4050, L100.0100 #### [facility] [address] [place], [address] Cholesterol in HDL [Mass/Vol] 64 mg/dL Normal [facility] Comment on above: Result Comment: [place] on[place] Cholesterol Education Program (NCEP) guidelines: <40 mg/dL: Low HDL-cholesterol (major risk factor for CHD) >= 60 mg/dL: High HDL-cholesterol (negative risk factor for CHD) HDL-cholesterol is affected by a number of factors, e.g. smoking, exercise, hormones, sex and age. Performed By: #### L 500.4050, L100.0100 #### [facility] [address] [place], [address] Cholesterol in LDL [Mass/Vol] 22 mg/dL Normal [facility] Comment on above: Result Comment: Bord wqfbsg=219-945 mg/dL Higher Scua=482 mg/dL or greater Performed By: #### L 500.4050, L100.0100 #### [facility] [address] [place], [address] Cholesterol in VLDL [Mass/Vol] 15 mg/dL Normal 5-40 [facility] Comment on above: Performed By: #### L 500.4050, L100.0100 #### [facility] [address] [place], [address] Triglyceride [Mass/Vol] 75 mg/dL Normal [facility] Comment on above: Result Comment: The drugs N-Acetylcysteine and Metamizole may falsely depress this assay. Normal range: <150 mg/dL Borderline High: 150-199 mg/dL High: 200-499 mg/dL Very High: >500 mg/dL Performed By: #### L 500.4050, L100.0100 #### [facility] [address] [place], [address] Lymphocytes Auto (Unsp spec) [#/Vol]Ordered By: Bernard Nugent on 07-27-2024 Lymphocytes (Bld) [#/Vol] 0.92 10*3/uL 0.83-4.51 [facility] Lymphocytes/100 WBC Auto (Un sp spec)Ordered By: Bernard Nugent on 07-27-2024 Lymphocytes/100 WBC (Bld) 14.4 % Low 19-41 [facility] MCV (mean corpuscular volume ) determinationOrdered By: Bernard Nugent on 07-27-2024 MCV (RBC) [Entitic vol] 88.0 fL 80-[address] [facility] Mean corpuscular hemoglobin (MCH) determinationOrdered By: Bernard Nugent on 07-27-2024 MCH (RBC) [Entitic mass] 31.9 pg 27.0-32.0 [facility] Mean corpuscular hemoglobin concentration (MCHC) determinationOrdered By: Bernard Nugent on 07-27-2024 MCHC (RBC) [Mass/Vol] 36.2 g/dL High 32-36 [facility] Mean platelet volume determi nationOrdered By: Bernard Nugent on 07-27-2024 Platelet mean volume (Bld) [Entitic vol] 10.6 fL 6.2-12.0 [facility] Monocyte percentageOrdered B y: Bernard Nugent on 07-27-2024 Monocytes/100 WBC (Bld) 11.0 % High 0-10 [facility] Neutrophil percentageOrdered By: Bernard Nugent on 07-27-2024 Neutrophils/100 WBC (Bld) 69.9 % 47-70 [facility] Nucleated red blood cell per centageOrdered By: Bernard Nugent on 07-27-2024 Nucleated RBC/100 WBC (Bld) [Ratio] 0 % 0-5 [facility] Platelet countOrdered By: Vick Nugent on 07-27-2024 Platelets (Bld) [#/Vol] 213 10*3/uL 150-450 [facility] Potassium (Unsp spec) [Mass/ Vol]Ordered By: Bernard Nugent on 07-27-2024 Potassium [Moles/Vol] 4.5 mmol/L 3.3-5.1 [facility] Potassium measurement (mass/ volume)Ordered By: Bernard Nugent on 07-27-2024 Potassium (Unsp spec) [Mass/Vol] 4.5 mmol/L 3.3-5.1 [facility] RBC Auto (Bld) [#/Vol]Ordere d By: Bernard Nugent on 07-27-2024 RBC (Bld) [#/Vol] 3.92 10*6/uL Low 4.6-6.2 [facility] Screening total cholesterol/ high density lipoprotein (HDL) cholesterol ratioOrdered By: Bernard Nugent on 07-27-2024 Cholesterol.total/Choles terol in HDL [Mass ratio] 1.59 {ratio} [facility] Serum creatinine measurement (mass/volume)Ordered By: Bernard Nugent on 07-27-2024 Creatinine [Mass/Vol] 1.23 mg/dL High 0.70-1.20 [facility] Serum globulin measurementOr dered By: Bernard Nugent on 07-27-2024 Globulin (S) [Mass/Vol] 2.6 g/dL 2.2-4.2 [facility] Serum glucose measurement (m ass/volume)Ordered By: Bernard Nugent on 07-27-2024 Glucose [Mass/Vol] 118 mg/dL High 70-99 [facility] Serum or plasma alanine erickson otransferase (ALT) measurementOrdered By: Bernard Nugent on 07-27-2024 ALT [Catalytic activity/Vol] 26 U/L <47 [facility] Serum or plasma albumin sita urement (mass/volume)Ordered By: Bernard Nugent on 07-27-2024 Albumin [Mass/Vol] 3.7 g/dL 3.4-4.8 [facility] Serum or plasma albumin/glob ulin mass ratioOrdered By: Bernard Nugent on 07-27-2024 Albumin/Globulin [Mass ratio] 1.4 {ratio} 0.9-2.4 [facility] Serum or plasma alkaline florencia sphatase measurementOrdered By: Bernard Nugent 07-27-2024 ALP [Catalytic activity/Vol] 131 U/L High 40-129 [facility] Serum or plasma calcium sita urement (mass/volume)Ordered By: Bernard Nugent 07-27-2024 Calcium [Mass/Vol] 8.4 mg/dL 7.6-11.0 [facility] Serum or plasma cholesterol in HDL measurement (mass/volume)Ordered By: Bernard Nugent on 07-27-2024 Cholesterol in HDL [Mass/Vol] 64 mg/dL >40 [facility] Comment on above: National Cholesterol Education Program (NCEP) guidelines:<40 mg/dL: Low HDL-cholesterol (major risk factor for CHD)>= 60 mg/dL: High HDL-cholesterol (negative risk factor for CHD)HDL-cholesterol is affected by a number of factors, e.g. smoking, exercise, hormones, sex and age. Serum or plasma cholesterol measurement (mass/volume)Ordered By: Bernard Nugent on 07-27-2024 Cholesterol [Mass/Vol] 101 mg/dL <201 [facility] Comment on above: Cholesterol level, D esirable <200 mg/dLBorderline high cholesterol 200-239 mg/dLHigh cholesterol >=240 mg/dLRecommendations of the NCEP Adult Treatment Panel for the following risk-cutoff thresholds for the [place] population. Serum or plasma urea nitroge n measurement (mass/volume)Ordered By: Bernard Nugent on 07-27-2024 Urea nitrogen [Mass/Vol] 14 mg/dL 4-19 [facility] Sodium levelOrdered By: Bernard Nugent on 07-27-2024 Sodium [Moles/Vol] 126 mmol/L Low 133-145 [facility] TSH DL <= 0.005 mIU/L QnOrde red By: Bernard Nugent on 07-27-2024 Thyroid Stimulating Hormone (TSH) 2.460 uIU/mL 0.300-4.200 [facility] TSH Qn 2.460 uIU/mL 0.300-4.200 [facility] Thyroid Stim Hormone (TSH)on 07-27-2024 TSH 2.460 uIU/mL Normal 0.300-4.200 [facility] Comment on above: Performed By: #### L 500.4050, L100.0100 #### [facility] Hospital Laboratory [facility] [address] [place], [address] Total proteinOrdered By: Bernard Nugent 07-27-2024 Protein [Mass/Vol] 6.3 g/dL 5.9-8.4 [facility] Triglycerides measurementOrd ered By: Bernard Nugent on 07-27-2024 Triglyceride [Mass/Vol] 75 mg/dL <199 [facility] Comment on above: The drugs N-Acetylcy steine and Metamizole may falsely depress this assay. Normal range: <150 mg/dLBorderline High: 150-199 mg/dLHigh: 200-499 mg/dLVery High: >500 mg/dL Vitamin D, 25-hydroxyOrdered By: Bernard Nugent on 07-27-2024 Vitamin D 25-Hydroxy 21.6 ng/mL Low 30-[address] [facility] Comment on above: Vitamin D StatusDefi ciency: <20 ng/mL (50nmol/L)Insufficiency: 20-30 ng/mL (50-75 nmol/L)Sufficiency: 30-100 ng/mL (75-250 nmol/L)Toxicity: >100 ng/mL (>250 nmol/L) White blood cell (WBC) count Ordered By: Bernard Nugent on 07-27-2024 WBC (Bld) [#/Vol] 6.4 10*3/uL 4.4-11.0 [facility], Anaerobic Any Sourc silke 07-15-2024 CUAN LOWER LEFT LEG Bacteria Spec Anaerobe Cult Susceptibility not normally performed on this organism. Schaalia odontolyticus Normal [facility] Comment on above: Performed By: #### L 501.080 #### [facility] [address] [place], [address] Wound Cultureon 07-14-2024 WC LOWER LEFT LEG [...] S Vancomycin Islt CHERRY 1 S Normal [facility] Comment on above: Performed By: #### L 501.080 #### [facility] [address] [place], [address] Gram Stainon 07-12-2024 GS LOWER LEFT LEG Test not performed Normal [facility] Comment on above: Performed By: #### L 501.080 #### [facility] [address] [place], [address] Anaerobic cultureOrdered By: Bernard Nugent on 07-10-2024 Bacteria identified Anaer cx Nom (Unsp spec) Scha[place] odontolyticus Abnormal [facility] Bacteria identified Anaer cx Nom (Unsp spec)Ordered By: Bernard Nugent on 07-10-2024 Anaerobic Culture Schaalia odontolyticus Abnormal [facility] Anaerobic Culture Schaalia odontolyticus Abnormal [facility] Gram stainOrdered By: Bernard sky on 07-10-2024 Microscopic observation Gram stain Nom (Unsp spec) [facility] Microscopic observation Gram stain Nom (Unsp spec) [facility] Routine wound cultureOrdered By: Bernard Nugent on 07-10-2024 Wound Culture Stenotrophomonas maltophilia Abnormal [facility] Wound Culture Staphylococcus epidermidis#2 Abnormal [facility] Wound Culture Staphylococcus epidermidis Abnormal [facility] Microbial culture, routine Stenotrophomonas maltophilia Abnormal [facility] Microbial culture, routine Staphylococcus epidermidis#2 Abnormal [facility] Microbial culture, routine Staphylococcus epidermidis Abnormal [facility] Wound Culture Stenotrophomonas maltophilia Abnormal [facility] Wound Culture Staphylococcus epidermidis#2 Abnormal [facility] Wound Culture Staphylococcus epidermidis Abnormal [facility] MRSA Wound DNA by PCRon 06-21 MRSA DNA ASSAY Negative Normal Negative [facility] Comment on above: Order Comment: LOWER LEFT LEGLOWER LEFT LEG Performed By: #### L 501.7300, L501.7400, L501.5500, L500.2500 #### [facility] [address] [place], [address] SA DNA ASSAY Negative Normal Negative [facility] Comment on above: Order Comment: LOWER LEFT LEGLOWER LEFT LEG Performed By: #### L 501.7300, L501.7400, L501.5500, L500.2500 #### [facility] [address] [place], [address] MRSA detection PCROrdered By : Bernard Nugent on 07-09-2024 Methicillin-Resist S.aureus DNA PCR Negative Negative [facility] S. aureus DNA MELIZA+probe Ql ( Unsp spec)Ordered By: Bernard Nugent on 07-09-2024 Staphylococcus aureus Protein A PCR Negative Negative [facility] Staphylococcus aureus DNA de tection by probe and target amplification methodOrdered By: Bernard Nugent on 07-09-2024 S. aureus DNA MELIZA+probe Ql (Unsp spec) Negative Negative [facility] Emergency Department Summary on 07-03-2024 Emergency Department Summary [facility] Medical Records Department [address] [place] [address] Emergency Department Summary 07/03/24 MR#: [id number] Acct: [id number] Name: ASHIA PEREZ Rep #: [id number] : [id number] From: Salvatore Hightower DO [...] Loss of Funtion Narrative Tetanus Immunization: Unknown [facility] Medical History NSVT (nonsustained ventricular [...] leg. Th (more content not included)... Normal [facility] Absolute neutrophil countOrd ered By: Bernard Nugent on 04-27-2024 Neutrophils (Bld) [#/Vol] 8.7 10*3/uL High 2.0-7.7 [facility] Albumin to globulin ratioOrd ered By: Bernard Nugent on 04-27-2024 Albumin/Globulin [Mass ratio] 1.0 {ratio} 0.9-2.4 [facility] Basophil percentageOrdered B y: Bernard Nugent on 04-27-2024 Basophils/100 WBC (Bld) 0.5 % 0-1 [facility] Bilirubin Test strip Ql (U)O rdered By: Bernard Nugent on 04-27-2024 Bilirubin Ql (U) Negative Negative [facility] Bilirubin, totalOrdered By: Bernard Nugent on 04-27-2024 Bilirubin [Mass/Vol] 2.90 mg/dL High 0.20-1.00 [facility] Comment on above: For patients on eltr ombopag therapy, use of Dimension [place] TBIL is not recommended. Blood urea nitrogen (BUN)/cr eatinine ratioOrdered By: Bernard Nugent on 04-27-2024 Urea nitrogen/Creatinine [Mass ratio] 9.9 mg/mg Low 10-20 [facility] CBC W/Diff, Automatedon 12 Absolute Lymph 0.78 X10 3/uL Low 0.83-4.51 [facility] Comment on above: Performed By: #### L 501.7300, L501.7400, L501.5500, L500.2500 #### [facility] [address] [place], [address] Absolute Neut 8.7 X10 3/uL High 2.0-7.7 [facility] Comment on above: Performed By: #### L 501.7300, L501.7400, L501.5500, L500.2500 #### [facility] [address] [place], [address] Basophils/100 WBC (Bld) 0.5 % Normal 0-1 [facility] Comment on above: Performed By: #### L 501.7300, L501.7400, L501.5500, L500.2500 #### [facility] [address] [place], [address] Eosinophils/100 WBC (Bld) 0.7 % Normal 0-5 [facility] Comment on above: Performed By: #### L 501.7300, L501.7400, L501.5500, L500.2500 #### [facility] [address] [place], [address] Erythrocyte distribution width (RBC) [Ratio] 15.3 % High 11.6-14.6 [facility] Comment on above: Performed By: #### L 501.7300, L501.7400, L501.5500, L500.2500 #### [facility] [address] [place], [address] Hematocrit (Bld) [Volume fraction] 40.3 % Normal 40-54 [facility] Comment on above: Performed By: #### L 501.7300, L501.7400, L501.5500, L500.2500 #### [facility] [address] [place], [address] Hemoglobin (Bld) [Mass/Vol] 13.8 g/dL Normal 13.0-16.5 [facility] Comment on above: Performed By: #### L 501.7300, L501.7400, L501.5500, L500.2500 #### [facility] [address] [place], [address] IG% 0.700 Normal 0.0-0.9 [facility] Comment on above: Result Comment: IG% - Immature Granulocytes (promyelocytes, myelocytes and metamyelocytes) > 1% indicates that a LEFT SHIFT is Present. Performed By: #### L 501.7300, L501.7400, L501.5500, L500.2500 #### [facility] [address] [place], [address] Lymphocytes/100 WBC (Bld) 7.2 % Low 19-41 [facility] Comment on above: Performed By: #### L 501.7300, L501.7400, L501.5500, L500.2500 #### [facility] [address] [place], [address] MCH (RBC) [Entitic mass] 30.9 pg Normal 27.0-32.0 [facility] Comment on above: Performed By: #### L 501.7300, L501.7400, L501.5500, L500.2500 #### [facility] [address] [place], [address] MCHC (RBC) [Mass/Vol] 34.2 g/dL Normal 32-36 [facility] Comment on above: Performed By: #### L 501.7300, L501.7400, L501.5500, L500.2500 #### [facility] [address] [place], [address] MCV (RBC) [Entitic vol] 90.4 fL Normal 80-94 [facility] Comment on above: Performed By: #### L 501.7300, L501.7400, L501.5500, L500.2500 #### [facility] [address] [place], [address] Monocytes/100 WBC (Bld) 10.0 % Normal 0-[address] [facility] Comment on above: Performed By: #### L 501.7300, L501.7400, L501.5500, L500.2500 #### [facility] [address] [place], [address] Neutrophils/100 WBC (Bld) 80.9 % High 47-70 [facility] Comment on above: Performed By: #### L 501.7300, L501.7400, L501.5500, L500.2500 #### [facility] [address] [place], [address] Nucleated RBC (Bld) [#/Vol] 0 10*3/uL Normal 0-5 [facility] Comment on above: Performed By: #### L 501.7300, L501.7400, L501.5500, L500.2500 #### [facility] [address] [place], [address] Platelet mean volume (Bld) [Entitic vol] 11.2 fL Normal 6.2-12.0 [facility] Comment on above: Performed By: #### L 501.7300, L501.7400, L501.5500, L500.2500 #### [facility] [address] [place], [address] Platelets (Bld) [#/Vol] 212 10*3/uL Normal 150-450 [facility] Comment on above: Performed By: #### L 501.7300, L501.7400, L501.5500, L500.2500 #### [facility] [address] [place], [address] RBC (Bld) [#/Vol] 4.46 10*6/uL Low 4.6-6.2 [facility] Comment on above: Performed By: #### L 501.7300, L501.7400, L501.5500, L500.2500 #### [facility] [address] [place], [address] RDW SD 50.4 fl High 35.1-43.9 [facility] Comment on above: Performed By: #### L 501.7300, L501.7400, L501.5500, L500.2500 #### [facility] [address] [place], [address] WBC (Bld) [#/Vol] 10.8 10*3/uL Normal 4.4-11.0 [facility] Comment on above: Performed By: #### L 501.7300, L501.7400, L501.5500, L500.2500 #### [facility] [address] [place], [address] Carbon dioxide measurementOr dered By: Bernard Nugent on 04-27-2024 CO2 [Moles/Vol] 27.0 mmol/L 21.0-32.0 [facility] Chloride measurementOrdered By: Bernard Nugent on 04-27-2024 Chloride [Moles/Vol] 101 mmol/L 98-107 [facility] Comprehensive Metabolic Prof ilon 04-27-2024 Albumin [Mass/Vol] 3.5 g/dL Normal 3.2-5.0 [facility] Comment on above: Performed By: #### L 501.7300, L501.7400, L501.5500, L500.2500 #### [facility] [address] [place], [address] Albumin/Globulin [Mass ratio] 1.0 {ratio} Normal 0.9-2.4 [facility] Comment on above: Performed By: #### L 501.7300, L501.7400, L501.5500, L500.2500 #### [facility] [address] [place], [address] ALK P 147 U/L High 45-117 [facility] Comment on above: Performed By: #### L 501.7300, L501.7400, L501.5500, L500.2500 #### [facility] [address] [place], [address] ALT [Catalytic activity/Vol] 30 U/L Normal 16-61 [facility] Comment on above: Performed By: #### L 501.7300, L501.7400, L501.5500, L500.2500 #### [facility] [address] [place], [address] AST [Catalytic activity/Vol] 24 U/L Normal 15-37 [facility] Comment on above: Performed By: #### L 501.7300, L501.7400, L501.5500, L500.2500 #### [facility] [address] [place], [address] Bilirubin [Mass/Vol] 2.90 mg/dL High 0.20-1.00 [facility] Comment on above: Result Comment: For patients on eltrombopag therapy, use of Dimension [place] TBIL is not recommended. Performed By: #### L 501.7300, L501.7400, L501.5500, L500.2500 #### [facility] [address] [place], [address] BUN/CRE 9.9 RATIO Low 10-20 [facility] Comment on above: Performed By: #### L 501.7300, L501.7400, L501.5500, L500.2500 #### [facility] [address] [place], [address] CA,Total 8.4 mg/dL Low 8.5-10.1 [facility] Comment on above: Performed By: #### L 501.7300, L501.7400, L501.5500, L500.2500 #### [facility] [address] [place], [address] Chloride [Moles/Vol] 101 mmol/L Normal 98-107 [facility] Comment on above: Performed By: #### L 501.7300, L501.7400, L501.5500, L500.2500 #### [facility] [address] [place], [address] CO2 [Moles/Vol] 27.0 mmol/L Normal 21.0-32.0 [facility] Comment on above: Performed By: #### L 501.7300, L501.7400, L501.5500, L500.2500 #### [facility] [address] [place], [address] Creatinine [Mass/Vol] 1.41 mg/dL High 0.70-1.30 [facility] Comment on above: Result Comment: The validity of the calculated GFR GFRAA in patients over 70 years has not been determined. Clinical correlation is essential. Performed By: #### L 501.7300, L501.7400, L501.5500, L500.2500 #### [facility] [address] [place], [address] EST GFR - AA 61 mL/min Normal >60 [facility] Comment on above: Result Comment: Afri can [place] GFR Calc Performed By: #### L 501.7300, L501.7400, L501.5500, L500.2500 #### [facility] [address] [place], [address] GAP 7 Normal 5-15 [facility] Comment on above: Performed By: #### L 501.7300, L501.7400, L501.5500, L500.2500 #### [facility] [address] [place], [address] GFR/1.73 sq M.predicted among non-blacks MDRD (S/P/Bld) [Vol rate/Area] 50 mL/min/{1.73_m2} Low >60 [facility] Comment on above: Result Comment: Non- GFR Calc Performed By: #### L 501.7300, L501.7400, L501.5500, L500.2500 #### [facility] [address] [place], [address] Globulin (S) [Mass/Vol] 3.6 g/dL Normal 2.2-4.[address] [facility] Comment on above: Performed By: #### L 501.7300, L501.7400, L501.5500, L500.2500 #### [facility] [address] [place], [address] Glucose [Mass/Vol] 174 mg/dL High 74-106 [facility] Comment on above: Result Comment: Fast ing Glucose result greater than or equal to 126 mg/dL suggests DIABETES MELLITUS per A.D.A. criteria. Performed By: #### L 501.7300, L501.7400, L501.5500, L500.2500 #### [facility] [address] [place], [address] Potassium [Moles/Vol] 4.1 mmol/L Normal 3.5-5.1 [facility] Comment on above: Performed By: #### L 501.7300, L501.7400, L501.5500, L500.2500 #### [facility] [address] [place], [address] Sodium [Moles/Vol] 135 mmol/L Low 136-145 [facility] Comment on above: Performed By: #### L 501.7300, L501.7400, L501.5500, L500.2500 #### [facility] [address] [place], [address] T PROT 7.1 g/dL Normal 6.4-8.2 [facility] Comment on above: Performed By: #### L 501.7300, L501.7400, L501.5500, L500.2500 #### [facility] [address] [place], [address] Urea nitrogen [Mass/Vol] 14 mg/dL Normal 7-18 [facility] Comment on above: Performed By: #### L 501.7300, L501.7400, L501.5500, L500.2500 #### [facility] [address] [place], [address] Eosinophil percentageOrdered By: Bernard Nugent on 04-27-2024 Eosinophils/100 WBC (Bld) 0.7 % 0-5 [facility] Epithelial cells.squamous LM Ql (Urine sed)Ordered By: Bernard Nugent on 04-27-2024 Epithelial cells.squamous LM.HPF (Urine sed) [#/Area] 0 /[HPF] 0-5 [facility] Erythrocyte distribution wid th ratioOrdered By: Bernard Nugent on 04-27-2024 Erythrocyte distribution width (RBC) [Ratio] 15.3 % High 11.6-14.6 [facility] Erythrocyte distribution wid th standard deviationOrdered By: Bernard Nugent on 04-27-2024 Erythrocyte distribution width (RBC) [Entitic vol] 50.4 fL High 35.1-43.9 [facility] Estimated glomerular filtrat ion rate (GFR) AmericanOrdered By: Bernard Nugent on 04-27-2024 Estimated GFR (MDRD) Amer 61 mL/min >60 [facility] Comment on above: GFR Calc Glomerular filtration rate ( GFR) estimationOrdered By: Bernard Nugent on 04-27-2024 Estimated GFR (MDRD) Non-Af Amer 50 mL/min Low >60 [facility] Comment on above: Non- GFR Calc Glucose Ql (U)Ordered By: Vick Nugent on 04-27-2024 Urine Glucose (UA) Normal mg/dl Normal [facility] Glucose measurementOrdered B y: Bernard Nugent on 04-27-2024 Glucose [Mass/Vol] 174 mg/dL High 74-106 [facility] Comment on above: Fasting Glucose resu lt greater than or equal to 126 mg/dL suggests DIABETES MELLITUS per A.D.A. criteria. Hematocrit Auto (Bld) [Volum e fraction]Ordered By: Bernard Nugent on 04-27-2024 Hematocrit (Bld) [Volume fraction] 40.3 % 40-54 [facility] Hemoglobin measurementOrdere d By: Bernard Nugent on 04-27-2024 Hemoglobin (Bld) [Mass/Vol] 13.8 g/dL 13.0-16.5 [facility] Immature granulocytes/100 WB C Auto (Bld)Ordered By: Bernard Nugent on 04-27-2024 Immature granulocytes/100 WBC (Bld) 0.700 % 0.0-0.9 [facility] Comment on above: IG% - Immature Granu locytes (promyelocytes, myelocytes and metamyelocytes) > 1% indicates that a LEFT SHIFT is Present. Ketones Test strip Ql (U)Ord ered By: Bernard Nugent on 04-27-2024 Ketones Ql (U) Negative Negative [facility] - Chemistry and C hemistry - challengeOrdered By: Bernard Nugent 04-27-2024 AST [Catalytic activity/Vol] 24 U/L 15-37 [facility] Lymphocytes Auto (Unsp spec) [#/Vol]Ordered By: Bernard Nugent on 04-27-2024 Lymphocytes (Bld) [#/Vol] 0.78 10*3/uL Low 0.83-4.51 [facility] Lymphocytes/100 WBC Auto (Un sp spec)Ordered By: Bernard Nugent on 04-27-2024 Lymphocytes/100 WBC (Bld) 7.2 % Low 19-41 [facility] MCV (mean corpuscular volume ) determinationOrdered By: Bernard Nugent 04-27-2024 MCV (RBC) [Entitic vol] 90.4 fL 80-94 [facility] Mean corpuscular hemoglobin (MCH) determinationOrdered By: Bernard Nugent 04-27-2024 MCH (RBC) [Entitic mass] 30.9 pg 27.0-32.0 [facility] Mean corpuscular hemoglobin concentration (MCHC) determinationOrdered By: Bernard Nugent on 04-27-2024 MCHC (RBC) [Mass/Vol] 34.2 g/dL 32-36 [facility] Mean platelet volume determi nationOrdered By: Bernard Nugent on 04-27-2024 Platelet mean volume (Bld) [Entitic vol] 11.2 fL 6.2-12.0 [facility] Microscopic analysis of urin e for red blood cells (RBC)Ordered By: Bernard Nugent on 04-27-2024 Urine RBC 0-5 SEEN /hpf 0-5 [facility] Monocyte percentageOrdered B y: Bernard Nugent on 04-27-2024 Monocytes/100 WBC (Bld) 10.0 % 0-10 [facility] Mucus LM Ql (Urine sed)Order ed By: Bernard Nugent on 04-27-2024 Mucus Ql (Urine sed) 0 SEEN /hpf [facility] Neutrophil percentageOrdered By: Bernard Nugent on 04-27-2024 Neutrophils/100 WBC (Bld) 80.9 % High 47-70 [facility] Nitrite Test strip Ql (U)Ord ered By: Bernard Nugent on 04-27-2024 Nitrite Ql (U) Negative Negative [facility] Nucleated red blood cell per centageOrdered By: Bernard Nugent on 04-27-2024 Nucleated RBC/100 WBC (Bld) [Ratio] 0 % 0-5 [facility] Platelet countOrdered By: Vick Nugent on 04-27-2024 Platelets (Bld) [#/Vol] 212 10*3/uL 150-450 [facility] Potassium measurementOrdered By: Bernard Nugent on 04-27-2024 Potassium [Moles/Vol] 4.1 mmol/L 3.5-5.1 [facility] Protein Test strip Ql (U)Ord ered By: Bernard Nugent on 04-27-2024 Protein Ql (U) 30 mg/dl High Negative [facility] RBC Auto (Bld) [#/Vol]Ordere d By: Bernard Nugent on 04-27-2024 RBC (Bld) [#/Vol] 4.46 10*6/uL Low 4.6-6.2 [facility] Serum anion gap measurementO rdered By: Bernard Nugent on 04-27-2024 Anion gap [Moles/Vol] 7 mmol/L 5-15 [facility] Serum globulin measurementOr dered By: Bernard Nugent on 04-27-2024 Globulin (S) [Mass/Vol] 3.6 g/dL 2.2-4.[address] [facility] Serum or plasma alanine erickson otransferase (ALT) measurementOrdered By: Bernard Nugent on 04-27-2024 ALT [Catalytic activity/Vol] 30 U/L 16-61 [facility] Serum or plasma albumin sita urement (mass/volume)Ordered By: Bernard Nugent on 04-27-2024 Albumin [Mass/Vol] 3.5 g/dL 3.2-5.0 [facility] Serum or plasma alkaline florencia sphatase measurementOrdered By: Bernard Nugent on 04-27-2024 ALP [Catalytic activity/Vol] 147 U/L High 45-117 [facility] Serum or plasma calcium sita urement (mass/volume)Ordered By: Bernard Nugent on 04-27-2024 Calcium [Mass/Vol] 8.4 mg/dL Low 8.5-10.1 [facility] Serum or plasma creatinine m easurement (mass/volume)Ordered By: Bernard Nugent on 04-27-2024 Creatinine [Mass/Vol] 1.41 mg/dL High 0.70-1.30 [facility] Comment on above: The validity of the calculated GFR & GFRAA in patients over 70 years has not been determined. Clinical correlation is essential. Serum or plasma urea nitroge n measurement (mass/volume)Ordered By: Bernard Nugent on 04-27-2024 Urea nitrogen [Mass/Vol] 14 mg/dL 7-18 [facility] Sodium levelOrdered By: Bernard Nugent on 04-27-2024 Sodium [Moles/Vol] 135 mmol/L Low 136-145 [facility] TSH QnOrdered By: Bernard owens n 04-27-2024 Thyroid Stimulating Hormone (TSH) 2.010 uIU/mL 0.358-3.740 [facility] Thyroid Stim Hormone (TSH)on 04-27-2024 TSH 2.010 uIU/mL Normal 0.358-3.740 [facility] Comment on above: Performed By: #### L 501.7300, L501.7400, L501.5500, L500.2500 #### [facility] [address] [place], [address] Total proteinOrdered By: Bernard Nugent on 04-27-2024 Protein [Mass/Vol] 7.1 g/dL 6.4-8.2 [facility] Urinalysis, Completeon 04-27 BACTERIA 1+ /hpf Normal None Seen [facility] Comment on above: Order Comment: Urine , Random Performed By: #### L 501.7300, L501.7400, L501.5500, L500.2500 #### [facility] [address] [place], [address] EPI,SQUAMOUS 0-5 SEEN Normal 0-5 [facility] Comment on above: Order Comment: Urine , Random Performed By: #### L [id number], L501.7400, L501.5500, L500.2500 #### [facility] [address] [place], [address] RBC 0-5 SEEN Normal 0-5 [facility] Comment on above: Order Comment: Urine , Random Performed By: #### L 501.7300, L501.7400, L501.5500, L500.2500 #### [facility] [address] [place], [address] WBC 0-5 SEEN Normal 0-5 [facility] Comment on above: Order Comment: Urine , Random Performed By: #### L 501.7300, L501.7400, L501.5500, L500.2500 #### [facility] [facility] [address] [place], [address] Mucus Ql (Urine sed) 0 SEEN Normal [facility] Comment on above: Order Comment: Urine , Random Performed By: #### L 501.7300, L501.7400, L501.5500, L500.2500 #### [facility] [address] [place], [address] Urine blood detectionOrdered By: Bernard Nugent on 04-27-2024 Urine Occult Blood 10 /ul High Negative [facility] Urine clarityOrdered By: Bernard Nugent on 04-27-2024 Clarity (U) Clear Clear [facility] Urine color determinationOrd ered By: Bernard Nugent on 04-27-2024 Color (U) Yellow Yellow [facility] Urine leukocyte esterase det ection by dipstickOrdered By: Bernard Nugent on 04-27-2024 Leukocyte esterase Test strip Ql (U) Negative Negative [facility] Urine pHOrdered By: Bernard Nugent on 04-27-2024 pH (U) 6.5 [pH] 5.0 - 8.0 [facility] Urine sediment bacteria coun t by microscopy (number/high power field)Ordered By: Bernard Nugent on 04-27-2024 Bacteria LM.HPF (Urine sed) [#/Area] 1 /[HPF] None Seen [facility] Urine specific gravity measu rementOrdered By: Bernard Nugent on 04-27-2024 Specific gravity (U) [Rel density] 1.010 1.002-1.030 [facility] Urobilinogen Ql (U)Ordered B y: Bernard Nugent on 04-27-2024 Urobilinogen (U) [Mass/Vol] 1 mg/dL High Normal [facility] White blood cell (WBC) count Ordered By: Bernard Nugent on 04-27-2024 WBC (Bld) [#/Vol] 10.8 10*3/uL 4.4-11.0 [facility] White blood cell countOrdere d By: Bernard Nugent on 04-27-2024 Urine WBC 0-5 SEEN /hpf 0-5 [facility] 26-OY-Wwzkyzx DOrdered By: Osei Nugent on 04-22-2024 Vitamin D 25-Hydroxy 31.0 ng/mL [facility] Comment on above: Vitamin D 25(OH) Sta tus Range Deficiency <20 ng/mL (50nmol/L) Insufficiency 20 - 30 ng/mL (50 - 75 nmol/L) Sufficiency 30 - 100 ng/mL (75 - 250 nmol/L) Toxicity >100 ng/mL (>250 nmol/L) Absolute neutrophil countOrd ered By: Bernard Nugent on 04-22-2024 Neutrophils (Bld) [#/Vol] 6.3 10*3/uL 2.0-7.7 [facility] Albumin to globulin ratioOrd ered By: Bernard Nugent on 04-22-2024 Albumin/Globulin [Mass ratio] 1.0 {ratio} 0.9-2.4 [facility] Basophil percentageOrdered B y: Bernard Nugent on 04-22-2024 Basophils/100 WBC (Bld) 0.6 % 0-1 [facility] Bilirubin, totalOrdered By: Bernard Nugent on 04-22-2024 Bilirubin [Mass/Vol] 2.50 mg/dL High 0.20-1.00 [facility] Comment on above: For patients on eltr ombopag therapy, use of Dimension [place] TBIL is not recommended. Blood urea nitrogen (BUN)/cr eatinine ratioOrdered By: Bernard Nugent on 04-22-2024 Urea nitrogen/Creatinine [Mass ratio] 10.7 mg/mg 10-20 [facility] CBC W/Diff, Automatedon Absolute Lymph 1.01 X10 3/uL Normal 0.83-4.51 [facility] Comment on above: Performed By: #### L 501.7300, L501.7400, L501.5500, L500.2500 #### [facility] [address] [place], [address] Absolute Neut 6.3 X10 3/uL Normal 2.0-7.7 [facility] Comment on above: Performed By: #### L 501.7300, L501.7400, L501.5500, L500.2500 #### [facility] [address] [place], [address] Basophils/100 WBC (Bld) 0.6 % Normal 0-1 [facility] Comment on above: Performed By: #### L 501.7300, L501.7400, L501.5500, L500.2500 #### [facility] [address] [facility] [place], [address] Eosinophils/100 WBC (Bld) 1.7 % Normal 0-5 [facility] Comment on above: Performed By: #### L 501.7300, L501.7400, L501.5500, L500.2500 #### [facility] [address] [place], [address] Erythrocyte distribution width (RBC) [Ratio] 15.2 % High 11.6-14.6 [facility] Comment on above: Performed By: #### L 501.7300, L501.7400, L501.5500, L500.2500 #### [facility] [address] [facility] [address] [place], [address] Hematocrit (Bld) [Volume fraction] 41.1 % Normal 40-54 [facility] Comment on above: Performed By: #### L 501.7300, L501.7400, L501.5500, L500.2500 #### [facility] [address] [place], [address] Hemoglobin (Bld) [Mass/Vol] 13.8 g/dL Normal 13.0-16.5 [facility] Comment on above: Performed By: #### L 501.7300, L501.7400, L501.5500, L500.2500 #### [facility] [address] [place], [address] IG% 0.800 Normal 0.0-0.9 [facility] Comment on above: Result Comment: IG% - Immature Granulocytes (promyelocytes, myelocytes and metamyelocytes) > 1% indicates that a LEFT SHIFT is Present. Performed By: #### L 501.7300, L501.7400, L501.5500, L500.2500 #### [facility] [address] [place], [address] Lymphocytes/100 WBC (Bld) 12.1 % Low 19-41 [facility] Comment on above: Performed By: #### L 501.7300, L501.7400, L501.5500, L500.2500 #### [facility] [address] [place], [address] MCH (RBC) [Entitic mass] 30.2 pg Normal 27.0-32.0 [facility] Comment on above: Performed By: #### L 501.7300, L501.7400, L501.5500, L500.2500 #### [facility] [address] [place], [address] MCHC (RBC) [Mass/Vol] 33.6 g/dL Normal 32-36 [facility] Comment on above: Performed By: #### L 501.7300, L501.7400, L501.5500, L500.2500 #### [facility] [address] [place], [address] MCV (RBC) [Entitic vol] 89.9 fL Normal 80-[address] [facility] Comment on above: Performed By: #### L 501.7300, L501.7400, L501.5500, L500.2500 #### [facility] [address] [place], [address] Monocytes/100 WBC (Bld) 9.8 % Normal 0-10 [facility] Comment on above: Performed By: #### L 501.7300, L501.7400, L501.5500, L500.2500 #### [facility] [address] [place], [address] Neutrophils/100 WBC (Bld) 75.0 % High 47-70 [facility] Comment on above: Performed By: #### L 501.7300, L501.7400, L501.5500, L500.2500 #### [facility] [address] [place], [address] Nucleated RBC (Bld) [#/Vol] 0 10*3/uL Normal 0-5 [facility] Comment on above: Performed By: #### L 501.7300, L501.7400, L501.5500, L500.2500 #### [facility] [address] [place], [address] Platelet mean volume (Bld) [Entitic vol] 10.7 fL Normal 6.2-12.0 [facility] Comment on above: Performed By: #### L 501.7300, L501.7400, L501.5500, L500.2500 #### [facility] [address] [place], [address] Platelets (Bld) [#/Vol] 195 10*3/uL Normal 150-450 [facility] Comment on above: Performed By: #### L 501.7300, L501.7400, L501.5500, L500.2500 #### [facility] [address] [place], [address] RBC (Bld) [#/Vol] 4.57 10*6/uL Low 4.6-6.2 [facility] Comment on above: Performed By: #### L 501.7300, L501.7400, L501.5500, L500.2500 #### [facility] [address] [place], [address] RDW SD 50.1 fl High 35.1-43.9 [facility] Comment on above: Performed By: #### L 501.7300, L501.7400, L501.5500, L500.2500 #### [facility] [address] [place], [address] WBC (Bld) [#/Vol] 8.4 10*3/uL Normal 4.4-11.0 [facility] Comment on above: Performed By: #### L 501.7300, L501.7400, L501.5500, L500.2500 #### [facility] [address] [place], [address] Carbon dioxide measurementOr dered By: Bernard Nugent on 04-22-2024 CO2 [Moles/Vol] 27.0 mmol/L 21.0-32.0 [facility] Chloride measurementOrdered By: Bernard Nugent on 04-22-2024 Chloride [Moles/Vol] 99 mmol/L 98-107 [facility] Comprehensive Metabolic Prof ilon 04-22-2024 Albumin [Mass/Vol] 3.4 g/dL Normal 3.2-5.0 [facility] Comment on above: Performed By: #### L 501.7300, L501.7400, L501.5500, L500.2500 #### [facility] [address] [place], [address] Albumin/Globulin [Mass ratio] 1.0 {ratio} Normal 0.9-2.4 [facility] Comment on above: Performed By: #### L 501.7300, L501.7400, L501.5500, L500.2500 #### [facility] [address] [place], [address] ALK P 126 U/L High 45-117 [facility] Comment on above: Performed By: #### L 501.7300, L501.7400, L501.5500, L500.2500 #### [facility] [address] [place], [address] ALT [Catalytic activity/Vol] 26 U/L Normal 16-61 [facility] Comment on above: Performed By: #### L 501.7300, L501.7400, L501.5500, L500.2500 #### [facility] [address] [place], [address] AST [Catalytic activity/Vol] 21 U/L Normal 15-37 [facility] Comment on above: Performed By: #### L 501.7300, L501.7400, L501.5500, L500.2500 #### [facility] [address] [place], [address] Bilirubin [Mass/Vol] 2.50 mg/dL High 0.20-1.00 [facility] Comment on above: Result Comment: For patients on eltrombopag therapy, use of Dimension [place] TBIL is not recommended. Performed By: #### L 501.7300, L501.7400, L501.5500, L500.2500 #### [facility] [address] [place], [address] BUN/CRE 10.7 RATIO Normal 10-20 [facility] Comment on above: Performed By: #### L 501.7300, L501.7400, L501.5500, L500.2500 #### [facility] [address] [place], [address] CA,Total 8.4 mg/dL Low 8.5-10.1 [facility] Comment on above: Performed By: #### L 501.7300, L501.7400, L501.5500, L500.2500 #### [facility] [address] [place], [address] Chloride [Moles/Vol] 99 mmol/L Normal 98-107 [facility] Comment on above: Performed By: #### L 501.7300, L501.7400, L501.5500, L500.2500 #### [facility] [address] [place], [address] CO2 [Moles/Vol] 27.0 mmol/L Normal 21.0-32.0 [facility] Comment on above: Performed By: #### L 501.7300, L501.7400, L501.5500, L500.2500 #### [facility] [address] [place], [address] Creatinine [Mass/Vol] 1.40 mg/dL High 0.70-1.30 [facility] Comment on above: Result Comment: The validity of the calculated GFR GFRAA in patients over 70 years has not been determined. Clinical correlation is essential. Performed By: #### L 501.7300, L501.7400, L501.5500, L500.2500 #### [facility] [address] [place], [address] EST GFR - AA 61 mL/min Normal >60 [facility] Comment on above: Result Comment: Afri can [place] GFR Calc Performed By: #### L 501.7300, L501.7400, L501.5500, L500.2500 #### [facility] [address] [place], [address] GAP 6 Normal 5-15 [facility] Comment on above: Performed By: #### L 501.7300, L501.7400, L501.5500, L500.2500 #### [facility] [address] [place], [address] GFR/1.73 sq M.predicted among non-blacks MDRD (S/P/Bld) [Vol rate/Area] 51 mL/min/{1.73_m2} Low >60 [facility] Comment on above: Result Comment: Non- GFR Calc Performed By: #### L 501.7300, L501.7400, L501.5500, L500.2500 #### [facility] [address] [place], [address] Globulin (S) [Mass/Vol] 3.5 g/dL Normal 2.2-4.[address] [facility] Comment on above: Performed By: #### L 501.7300, L501.7400, L501.5500, L500.2500 #### [facility] [address] [place], [address] Glucose [Mass/Vol] 165 mg/dL High 74-106 [facility] Comment on above: Result Comment: Fast ing Glucose result greater than or equal to 126 mg/dL suggests DIABETES MELLITUS per A.D.A. criteria. Performed By: #### L 501.7300, L501.7400, L501.5500, L500.2500 #### [facility] [address] [place], [address] Potassium [Moles/Vol] 4.6 mmol/L Normal 3.5-5.1 [facility] Comment on above: Performed By: #### L 501.7300, L501.7400, L501.5500, L500.2500 #### [facility] [address] [place], [address] Sodium [Moles/Vol] 133 mmol/L Low 136-145 [facility] Comment on above: Performed By: #### L 501.7300, L501.7400, L501.5500, L500.2500 #### [facility] [address] [place], [address] T PROT 6.9 g/dL Normal 6.4-8.2 [facility] Comment on above: Performed By: #### L 501.7300, L501.7400, L501.5500, L500.2500 #### [facility] [address] [place], [address] Urea nitrogen [Mass/Vol] 15 mg/dL Normal 7-18 [facility] Comment on above: Performed By: #### L 501.7300, L501.7400, L501.5500, L500.2500 #### [facility] [address] [place], [address] Eosinophil percentageOrdered By: Bernard Nugent on 04-22-2024 Eosinophils/100 WBC (Bld) 1.7 % 0-5 [facility] Erythrocyte distribution wid th ratioOrdered By: Bernard Nugent on 04-22-2024 Erythrocyte distribution width (RBC) [Ratio] 15.2 % High 11.6-14.6 [facility] Erythrocyte distribution wid th standard deviationOrdered By: Bernard Nugent on 04-22-2024 Erythrocyte distribution width (RBC) [Entitic vol] 50.1 fL High 35.1-43.9 [facility] Estimated glomerular filtrat ion rate (GFR) AmericanOrdered By: Bernard Nugent on 04-22-2024 Estimated GFR (MDRD) Amer 61 mL/min >60 [facility] Comment on above: GFR Calc Glomerular filtration rate ( GFR) estimationOrdered By: Bernard Nugent on 04-22-2024 Estimated GFR (MDRD) Non-Af Amer 51 mL/min Low >60 [facility] Comment on above: Non- GFR Calc Glucose measurementOrdered B y: Bernard Nugent on 04-22-2024 Glucose [Mass/Vol] 165 mg/dL High 74-106 [facility] Comment on above: Fasting Glucose resu lt greater than or equal to 126 mg/dL suggests DIABETES MELLITUS per A.D.A. criteria. Hematocrit Auto (Bld) [Volum e fraction]Ordered By: Bernard Nugent on 04-22-2024 Hematocrit (Bld) [Volume fraction] 41.1 % 40-54 [facility] Hemoglobin A1con 04-22-2024 HbA1c (Bld) [Mass fraction] 5.9 % High 3.8-5.6 [facility] Comment on above: Result Comment: Norm al < 5.7 % Prediabetic 5.7 - 6.4 % Diabetic >or= 6.5 % Please note range changes. Performed By: #### L 501.7300, L501.7400, L501.5500, L500.2500 #### [facility] [place], [address] Hemoglobin A1c percentageOrd ered By: Bernard Nugent on 04-22-2024 HbA1c (Bld) [Mass fraction] 5.9 % High 3.8-5.6 [facility] Comment on above: Normal < 5.7 % Predi abetic 5.7 - 6.4 % Diabetic >or= 6.5 % Please note range changes. Hemoglobin measurementOrdere d By: Bernard Nugent on 04-22-2024 Hemoglobin (Bld) [Mass/Vol] 13.8 g/dL 13.0-16.5 [facility] High density lipoprotein (HD L) measurementOrdered By: Bernard Nugent on 04-22-2024 Cholesterol in HDL [Mass/Vol] 74 mg/dL >40 [facility] Comment on above: The drugs N-Acetylcy steine and Metamizole may falsely depress this assay. Reference Range HDL <40 mg/dL Low HDL Cholesterol HDL >or= 60 mg/dL High HDL Cholesterol Immature granulocytes/100 WB C Auto (Bld)Ordered By: Bernard Nugent on 04-22-2024 Immature granulocytes/100 WBC (Bld) 0.800 % 0.0-0.9 [facility] Comment on above: IG% - Immature Granu locytes (promyelocytes, myelocytes and metamyelocytes) > 1% indicates that a LEFT SHIFT is Present. Laboratory - Chemistry and C hemistry - challengeOrdered By: Bernard Nugent on 04-22-2024 AST [Catalytic activity/Vol] 21 U/L 15-37 [facility] Lipid Profileon 04-22-2024 Cholesterol [Mass/Vol] 127 mg/dL Normal 200 [facility] Comment on above: Result Comment: <200 mg/dL Desirable 200-240 mg/dL Borderline >240 mg/dL High Risk Performed By: #### L 501.7300, L501.7400, L501.5500, L500.2500 #### [facility] [address] [place], [address] Cholesterol in HDL [Mass/Vol] 74 mg/dL Normal [facility] Comment on above: Result Comment: The drugs N-Acetylcysteine and Metamizole may falsely depress this assay. Reference Range HDL <40 mg/dL Low HDL Cholesterol HDL >or= 60 mg/dL High HDL Cholesterol Performed By: #### L 501.7300, L501.7400, L501.5500, L500.2500 #### [facility] [address] [place], [address] Cholesterol in LDL [Mass/Vol] 40 mg/dL Normal 0-130 [facility] Comment on above: Performed By: #### L 501.7300, L501.7400, L501.5500, L500.2500 #### [facility] [address] [place], [place], [address] Cholesterol in VLDL [Mass/Vol] 13 mg/dL Normal 5-40 [facility] Comment on above: Performed By: #### L 501.7300, L501.7400, L501.5500, L500.2500 #### [facility] [address] [place], [address] Triglyceride [Mass/Vol] 65 mg/dL Normal [facility] Comment on above: Result Comment: The drugs N-Acetylcysteine and Metamizole may falsely depress this assay. Serum Triglycerides Reference Interval Normal <150 mg/dL Borderline high 150 - 199 mg/dL High 200 - 499 mg/dL Very High > or = 500 mg/dL Performed By: #### L 501.7300, L501.7400, L501.5500, L500.2500 #### [facility] [address] [place], [place], [address] Low density lipoprotein (LDL ) cholesterol measurementOrdered By: Bernard Nugent on 04-22-2024 Cholesterol in LDL [Mass/Vol] 40 mg/dL 0-130 [facility] Lymphocytes Auto (Unsp spec) [#/Vol]Ordered By: Bernard Nugent on 04-22-2024 Lymphocytes (Bld) [#/Vol] 1.01 10*3/uL 0.83-4.51 [facility] Lymphocytes/100 WBC Auto (Un sp spec)Ordered By: Bernard Nugent on 04-22-2024 Lymphocytes/100 WBC (Bld) 12.1 % Low 19-41 [facility] MCV (mean corpuscular volume ) determinationOrdered By: Bernard Nugent on 04-22-2024 MCV (RBC) [Entitic vol] 89.9 fL 80-94 [facility] Mean corpuscular hemoglobin (MCH) determinationOrdered By: Bernard Nugent on 04-22-2024 MCH (RBC) [Entitic mass] 30.2 pg 27.0-32.0 [facility] Mean corpuscular hemoglobin concentration (MCHC) determinationOrdered By: Bernard Nugent on 04-22-2024 MCHC (RBC) [Mass/Vol] 33.6 g/dL 32-36 [facility] Mean platelet volume determi nationOrdered By: Bernard Nugent on 04-22-2024 Platelet mean volume (Bld) [Entitic vol] 10.7 fL 6.2-12.0 [facility] Monocyte percentageOrdered B y: Bernard Nugent on 04-22-2024 Monocytes/100 WBC (Bld) 9.8 % 0-10 [facility] Neutrophil percentageOrdered By: Bernard Nugent on 04-22-2024 Neutrophils/100 WBC (Bld) 75.0 % High 47-70 [facility] Nucleated red blood cell per centageOrdered By: Bernard Nugent on 04-22-2024 Nucleated RBC/100 WBC (Bld) [Ratio] 0 % 0-5 [facility] Platelet countOrdered By: Vick Nugent on 04-22-2024 Platelets (Bld) [#/Vol] 195 10*3/uL 150-450 [facility] Potassium measurementOrdered By: Bernard Nugent 04-22-2024 Potassium [Moles/Vol] 4.6 mmol/L 3.5-5.1 [facility] RBC Auto (Bld) [#/Vol]Ordere d By: Bernard Nugent on 04-22-2024 RBC (Bld) [#/Vol] 4.57 10*6/uL Low 4.6-6.2 [facility] Serum anion gap measurementO rdered By: Bernard Nugent on 04-22-2024 Anion gap [Moles/Vol] 6 mmol/L 5-15 [facility] Serum globulin measurementOr dered By: Bernard Nugent 04-22-2024 Globulin (S) [Mass/Vol] 3.5 g/dL 2.2-4.2 [facility] Serum or plasma alanine erickson otransferase (ALT) measurementOrdered By: Bernard Nugent 04-22-2024 ALT [Catalytic activity/Vol] 26 U/L 16-61 [facility] Serum or plasma albumin sita urement (mass/volume)Ordered By: Bernard Nugent on 04-22-2024 Albumin [Mass/Vol] 3.4 g/dL 3.2-5.0 [facility] Serum or plasma alkaline florencia sphatase measurementOrdered By: Bernard Nugent on 04-22-2024 ALP [Catalytic activity/Vol] 126 U/L High 45-117 [facility] Serum or plasma calcium sita urement (mass/volume)Ordered By: Bernard Nugent on 04-22-2024 Calcium [Mass/Vol] 8.4 mg/dL Low 8.5-10.1 [facility] Serum or plasma cholesterol measurement (mass/volume)Ordered By: Bernard Nugent on 04-22-2024 Cholesterol [Mass/Vol] 127 mg/dL <200 [facility] Comment on above: <200 mg/dL Desirable 200-240 mg/dL Borderline >240 mg/dL High Risk Serum or plasma creatinine m easurement (mass/volume)Ordered By: Bernard Nugent on 04-22-2024 Creatinine [Mass/Vol] 1.40 mg/dL High 0.70-1.30 [facility] Comment on above: The validity of the calculated GFR & GFRAA in patients over 70 years has not been determined. Clinical correlation is essential. Serum or plasma urea nitroge n measurement (mass/volume)Ordered By: Bernard Nugent on 04-22-2024 Urea nitrogen [Mass/Vol] 15 mg/dL 7-18 [facility] Sodium levelOrdered By: Bernard Nugent on 04-22-2024 Sodium [Moles/Vol] 133 mmol/L Low 136-145 [facility] TSH QnOrdered By: Bernard Nugent o n 04-22-2024 Thyroid Stimulating Hormone (TSH) 2.610 uIU/mL 0.358-3.740 [facility] Thyroid Stim Hormone (TSH)on 04-22-2024 TSH 2.610 uIU/mL Normal 0.358-3.740 [facility] Comment on above: Performed By: #### L 501.7300, L501.7400, L501.5500, L500.2500 #### [facility] [place] [place], [address] Total proteinOrdered By: Bernard Nugent on 04-22-2024 Protein [Mass/Vol] 6.9 g/dL 6.4-8.2 [facility] Triglycerides measurementOrd ered By: Bernard Nugent on 04-22-2024 Triglyceride [Mass/Vol] 65 mg/dL <199 [facility] Comment on above: The drugs N-Acetylcy steine and Metamizole may falsely depress this assay.Serum Triglycerides Reference Interval Normal <150 mg/dL Borderline high 150 - 199 mg/dL High 200 - 499 mg/dL Very High > or = 500 mg/dL Very low density lipoprotein (VLDL) cholesterol measurementOrdered By: Bernard Nugent on 04-22-2024 VLDL Cholesterol 13 mg/dL 5-40 [facility] Vitamin D,25 Hydroxyon 04-22 Vitamin D 25-OH 31.0 ng/mL Normal [facility] Comment on above: Result Comment: Mary min D 25(OH) Status Range Deficiency <20 ng/mL (50nmol/L) Insufficiency 20 - 30 ng/mL (50 - 75 nmol/L) Sufficiency 30 - 100 ng/mL (75 - 250 nmol/L) Toxicity >100 ng/mL (>250 nmol/L) Performed By: #### L 501.7300, L501.7400, L501.5500, L500.2500 #### [facility] [address] [place], [place], [address] White blood cell (WBC) count Ordered By: Bernard Nugent on 04-22-2024 WBC (Bld) [#/Vol] 8.4 10*3/uL 4.4-11.0 [facility] Cardiology Visit Reporton Cardiology Visit Report [facility] [address] [place], [place] [address] OFFICE VISIT Date of Service: 03/31/24 MR#: [id number] Acct: [id number] Name: ASHIA PEREZ Rep #: [id number] : 1935 Provider: Dr. Rodolfo Tobias MD Age/Sex: 88/M Location: [facility] Status: Signed HPI HPI History of Present [...] Monitor Intake Visit Reasons: 1 Y FU Continuous Improvement Specialist Required: No Accompanied by: Self Is patient [...] for SOB (more content not included)... Normal [facility] [facility] Basic Metabolic Profile (BMP )on 03-09-2024 BUN/CRE 16.9 RATIO Normal 03-08 [facility] Comment on above: Performed By: #### L 500.4050, L100.0100 #### [facility] [address] [place], [address] CA,Total 8.7 mg/dL Normal 8.5-10.1 [facility] Comment on above: Performed By: #### L 500.4050, L100.0100 #### [facility] [address] [place], [address] Chloride [Moles/Vol] 106 mmol/L Normal 98-107 [facility] Comment on above: Performed By: #### L 500.4050, L100.0100 #### [facility] [address] [place], [address] CO2 [Moles/Vol] 22.0 mmol/L Normal 21.0-32.0 [facility] Comment on above: Performed By: #### L 500.4050, L100.0100 #### [facility] [address] [place], [address] Creatinine [Mass/Vol] 1.42 mg/dL High 0.70-1.30 [facility] Comment on above: Result Comment: The validity of the calculated GFR GFRAA in patients over 70 years has not been determined. Clinical correlation is essential. Performed By: #### L 500.4050, L100.0100 #### [facility] [address] [place], [address] EST GFR - AA 61 mL/min Normal >60 [facility] Comment on above: Result Comment: Afri can [place] GFR Calc Performed By: #### L 500.4050, L100.0100 #### [facility] [address] [place], [address] GAP 5 Normal 5-15 [facility] Comment on above: Performed By: #### L 500.4050, L100.0100 #### [facility] [address] [place], [address] GFR/1.73 sq M.predicted among non-blacks MDRD (S/P/Bld) [Vol rate/Area] 50 mL/min/{1.73_m2} Low >60 [facility] Comment on above: Result Comment: Non- GFR Calc Performed By: #### L 500.4050, L100.0100 #### [facility] [address] [place], [address] Glucose [Mass/Vol] 113 mg/dL High 74-106 [facility] Comment on above: Result Comment: Fast ing Glucose result from 100 to 125 mg/dL suggests IMPAIRED HOMEOSTASIS per A.D.A. criteria. Performed By: #### L 500.4050, L100.0100 #### [facility] [address] [place], [address] Potassium [Moles/Vol] 4.7 mmol/L Normal 3.5-5.1 [facility] Comment on above: Performed By: #### L 500.4050, L100.0100 #### [facility] [address] [place], [address] Sodium [Moles/Vol] 133 mmol/L Low 136-145 [facility] Comment on above: Performed By: #### L 500.4050, L100.0100 #### [facility] [address] [place], [address] Urea nitrogen [Mass/Vol] 24 mg/dL High 7-18 [facility] Comment on above: Performed By: #### L 500.4050, L100.0100 #### [facility] [address] [place], [address] Basic Metabolic Profile (BMP )on 02-28-2024 BUN/CRE 17.2 RATIO Normal 10-20 [facility] Comment on above: Performed By: #### L 500.2500 #### [facility] [address] [place], [address] CA,Total 8.7 mg/dL Normal 8.5-10.1 [facility] Comment on above: Performed By: #### L 500.2500 #### [facility] [address] [place], [address] Chloride [Moles/Vol] 102 mmol/L Normal 98-107 [facility] Comment on above: Performed By: #### L 500.2500 #### [facility] [address] [place], [address] CO2 [Moles/Vol] 24.0 mmol/L Normal 21.0-32.0 [facility] Comment on above: Performed By: #### L 500.2500 #### [facility] [address] [place], [address] Creatinine [Mass/Vol] 1.34 mg/dL High 0.70-1.30 [facility] Comment on above: Result Comment: The validity of the calculated GFR GFRAA in patients over 70 years has not been determined. Clinical correlation is essential. Performed By: #### L 500.2500 #### [facility] [address] [place], [address] EST GFR - AA 65 mL/min Normal >60 [facility] Comment on above: Result Comment: Afri can [place] GFR Calc Performed By: #### L 500.2500 #### [facility] [address] [place], [address] GAP 5 Normal 5-15 [facility] Comment on above: Performed By: #### L 500.2500 #### [facility] [address] [place], [address] GFR/1.73 sq M.predicted among non-blacks MDRD (S/P/Bld) [Vol rate/Area] 53 mL/min/{1.73_m2} Low >60 [facility] Comment on above: Result Comment: Non- GFR Calc Performed By: #### L 500.2500 #### [facility] [address] [place], [address] Glucose [Mass/Vol] 104 mg/dL Normal 74-106 [facility] Comment on above: Result Comment: Fast ing Glucose result from 100 to 125 mg/dL suggests IMPAIRED HOMEOSTASIS per A.D.A. criteria. Performed By: #### L 500.2500 #### [facility] [address] [place], [address] Potassium [Moles/Vol] 4.3 mmol/L Normal 3.5-5.1 [facility] Comment on above: Performed By: #### L 500.2500 #### [facility] [address] [place], [address] Sodium [Moles/Vol] 132 mmol/L Low 136-145 [facility] Comment on above: Performed By: #### L 500.2500 #### [facility] [address] [place], [address] Urea nitrogen [Mass/Vol] 23 mg/dL High 7-18 [facility] Comment on above: Performed By: #### L 500.2500 #### [facility] [address] [place], [address] Basic Metabolic Profile (BMP )on 02-21-2024 BUN/CRE 9.0 RATIO Low 10-20 [facility] Comment on above: Performed By: #### L 501.7300, L501.7400, L501.5500, L500.2500 #### [facility] [address] [place], [address] CA,Total 8.5 mg/dL Normal 8.5-10.1 [facility] Comment on above: Performed By: #### L 501.7300, L501.7400, L501.5500, L500.2500 #### [facility] [address] [place], [address] Chloride [Moles/Vol] 96 mmol/L Low 98-107 [facility] Comment on above: Performed By: #### L 501.7300, L501.7400, L501.5500, L500.2500 #### [facility] [address] [place], [address] CO2 [Moles/Vol] 28.0 mmol/L Normal 21.0-32.0 [facility] Comment on above: Performed By: #### L 501.7300, L501.7400, L501.5500, L500.2500 #### [facility] [address] [place], [address] Creatinine [Mass/Vol] 1.34 mg/dL High 0.70-1.30 [facility] Comment on above: Result Comment: The validity of the calculated GFR GFRAA in patients over 70 years has not been determined. Clinical correlation is essential. Performed By: #### L 501.7300, L501.7400, L501.5500, L500.2500 #### [facility] [address] [place], [address] EST GFR - AA 65 mL/min Normal >60 [facility] Comment on above: Result Comment: Afri can [place] GFR Calc Performed By: #### L 501.7300, L501.7400, L501.5500, L500.2500 #### [facility] [address] [place], [address] GAP 4 Low 5-15 [facility] Comment on above: Performed By: #### L 501.7300, L501.7400, L501.5500, L500.2500 #### [facility] [address] [place], [address] GFR/1.73 sq M.predicted among non-blacks MDRD (S/P/Bld) [Vol rate/Area] 53 mL/min/{1.73_m2} Low >60 [facility] Comment on above: Result Comment: Non- GFR Calc Performed By: #### L 501.7300, L501.7400, L501.5500, L500.2500 #### [facility] [address] [place], [address] Glucose [Mass/Vol] 173 mg/dL High 74-106 [facility] Comment on above: Result Comment: Fast ing Glucose result greater than or equal to 126 mg/dL suggests DIABETES MELLITUS per A.D.A. criteria. Performed By: #### L 501.7300, L501.7400, L501.5500, L500.2500 #### [facility] [address] [place], [address] Potassium [Moles/Vol] 4.2 mmol/L Normal 3.5-5.1 [facility] Comment on above: Performed By: #### L 501.7300, L501.7400, L501.5500, L500.2500 #### [facility] [address] [place], [address] Sodium [Moles/Vol] 128 mmol/L Low 136-145 [facility] Comment on above: Performed By: #### L 501.7300, L501.7400, L501.5500, L500.2500 #### [facility] [address] [place], [address] Urea nitrogen [Mass/Vol] 12 mg/dL Normal 7-18 [facility] Comment on above: Performed By: #### L 501.7300, L501.7400, L501.5500, L500.2500 #### [facility] [address] [place], [address] Osmolality, Serumon 02-21-20 24 OSMOLALITY,SER 272 mOsm/KG Low 280-301 [facility] Comment on above: Performed By: #### L 501.7300, L501.7400, L501.5500, L500.2500 #### [facility] [address] [place], [address] Osmolality, Urineon 02-21-20 24 OSMOLALITY,UR 363 mOsm/KG Normal [facility] Comment on above: Result Comment: Normal Urine Reference Ranges Random: 50 - 1200 mOsm/kg H20 depending on fluid intake Random: >850 mOsm/kg after 12 hour fluid restriction 24 hour: 300 - 900 mOsm/kg H2O Performed By: #### L 501.7300, L501.7400, L501.5500, L500.2500 #### [facility] [address] [place], [address] Urine Sodiumon 02-21-2024 Sodium (U) [Moles/Vol] 56 mmol/L Normal Not Establ. [facility] Comment on above: Performed By: #### L 501.7300, L501.7400, L501.5500, L500.2500 #### [facility] [address] [place], [address] Abd Inc Decub and/or Erecton 02-20-2024 Abd Inc Decub and/or Erect [facility] [address] [place] [address] Abd Inc Decub and/or Erect MR#: [id number] Acct: [id number] Name: ASHIA PEREZ JAMEEL Rep #: [id number] : [id number] M [id number] From: Chirag Mckeon MD PCP: Dr. Bernard Nugent MD Status: REG CLI Study: Abd Inc Decub and/or Erect Date of Exam: 02/19 Exam# [id number] Ordering Dr: Bernard Nugent [place] [id number] STUDY: X-RAY - ABDOMEN/PELVIS REASON FOR EXAM: [...] EDT , CC: Dr. Bernard Nugent MD [employer] Captain: Signed Normal [facility] CBC W/Diff, Automatedon 10-0 Absolute Lymph 0.70 X10 3/uL Low 0.83-4.51 [facility] Comment on above: Performed By: #### L 501.080 #### [facility] [address] [place], [place], [address] Absolute Neut 6.3 X10 3/uL Normal 2.0-7.7 [facility] Comment on above: Performed By: #### L 501.080 #### [facility] [address] [place], [address] Basophils/100 WBC (Bld) 0.5 % Normal 0-1 [facility] Comment on above: Performed By: #### L 501.080 #### [facility] [address] [place], [address] Eosinophils/100 WBC (Bld) 0.3 % Normal 0-5 [facility] Comment on above: Performed By: #### L 501.080 #### [facility] [address] [place], [address] Erythrocyte distribution width (RBC) [Ratio] 13.4 % Normal 11.6-14.6 [facility] Comment on above: Performed By: #### L 501.080 #### [facility] [address] [place], [address] Hematocrit (Bld) [Volume fraction] 39.5 % Low 40-54 [facility] Comment on above: Performed By: #### L 501.080 #### [facility] [address] [place], [address] Hemoglobin (Bld) [Mass/Vol] 13.4 g/dL Normal 13.0-16.5 [facility] Comment on above: Performed By: #### L 501.080 #### [facility] [address] [place], [address] IG% 0.500 Normal 0.0-0.9 [facility] Comment on above: Result Comment: IG% - Immature Granulocytes (promyelocytes, myelocytes and metamyelocytes) > 1% indicates that a LEFT SHIFT is Present. Performed By: #### L 501.080 #### [facility] [address] [place], [address] Lymphocytes/100 WBC (Bld) 8.9 % Low 19-41 [facility] Comment on above: Performed By: #### L 501.080 #### [facility] [address] [place], [address] MCH (RBC) [Entitic mass] 29.0 pg Normal 27.0-32.0 [facility] Comment on above: Performed By: #### L 501.080 #### [facility] [address] [place], [address] MCHC (RBC) [Mass/Vol] 33.9 g/dL Normal 32-36 [facility] Comment on above: Performed By: #### L 501.080 #### [facility] [address] [place], [address] MCV (RBC) [Entitic vol] 85.5 fL Normal 80-[address] [facility] Comment on above: Performed By: #### L 501.080 #### [facility] [address] [place], [address] Monocytes/100 WBC (Bld) 10.5 % High 0-[address] [facility] Comment on above: Performed By: #### L 501.080 #### [facility] [address] [place], [address] Neutrophils/100 WBC (Bld) 79.3 % High 47-70 [facility] Comment on above: Performed By: #### L 501.080 #### [facility] [address] [place], [address] Nucleated RBC (Bld) [#/Vol] 0 10*3/uL Normal 0-5 [facility] Comment on above: Performed By: #### L 501.080 #### [facility] [address] [place], [address] Platelet mean volume (Bld) [Entitic vol] 11.0 fL Normal 6.2-12.0 [facility] Comment on above: Performed By: #### L 501.080 #### [facility] [address] [place], [address] Platelets (Bld) [#/Vol] 196 10*3/uL Normal 150-450 [facility] Comment on above: Performed By: #### L 501.080 #### [facility] [address] [place], [address] RBC (Bld) [#/Vol] 4.62 10*6/uL Normal 4.6-6.2 [facility] Comment on above: Performed By: #### L 501.080 #### [facility] [address] [place], [address] RDW SD 41.8 fl Normal 35.1-43.9 [facility] Comment on above: Performed By: #### L 501.080 #### [facility] [address] [place], [address] WBC (Bld) [#/Vol] 7.9 10*3/uL Normal 4.4-11.0 [facility] Comment on above: Performed By: #### L 501.080 #### [facility] [address] [place], [address] Comprehensive Metabolic Prof [facility] 02-20-2024 Albumin [Mass/Vol] 3.5 g/dL Normal 3.2-5.0 [facility] Comment on above: Performed By: #### L 501.080 #### [facility] [address] [place], [address] Albumin/Globulin [Mass ratio] 1.0 {ratio} Normal 0.9-2.4 [facility] Comment on above: Performed By: #### L 501.080 #### [facility] [address] [place], [address] ALK P 103 U/L Normal 45-117 [facility] Comment on above: Performed By: #### L 501.080 #### [facility] [address] [place], [address] ALT [Catalytic activity/Vol] 26 U/L Normal 16-61 [facility] Comment on above: Performed By: #### L 501.080 #### [facility] [address] [place], [address] AST [Catalytic activity/Vol] 22 U/L Normal 15-37 [facility] Comment on above: Performed By: #### L 501.080 #### [facility] [address] [place], [address] Bilirubin [Mass/Vol] 3.00 mg/dL High 0.20-1.00 [facility] Comment on above: Result Comment: For patients on eltrombopag therapy, use of Dimension [place] TBIL is not recommended. Performed By: #### L 501.080 #### [facility] [address] [place], [address] BUN/CRE 9.3 RATIO Low 10-20 [facility] Comment on above: Performed By: #### L 501.080 #### [facility] [address] [place], [address] CA,Total 8.7 mg/dL Normal 8.5-10.1 [facility] Comment on above: Performed By: #### L 501.080 #### [facility] [address] [place], [address] Chloride [Moles/Vol] 93 mmol/L Low 98-107 [facility] Comment on above: Performed By: #### L 501.080 #### [facility] [address] [place], [address] CO2 [Moles/Vol] 28.0 mmol/L Normal 21.0-32.0 [facility] Comment on above: Performed By: #### L 501.080 #### [facility] [address] [place], [address] Creatinine [Mass/Vol] 1.29 mg/dL Normal 0.70-1.30 [facility] Comment on above: Result Comment: The validity of the calculated GFR GFRAA in patients over 70 years has not been determined. Clinical correlation is essential. Performed By: #### L 501.080 #### [facility] [address] [place], [address] EST GFR - AA 68 mL/min Normal >60 [facility] Comment on above: Result Comment: Afri can [place] GFR Calc Performed By: #### L 501.080 #### [facility] [address] [place], [address] GAP 5 Normal 5-15 [facility] Comment on above: Performed By: #### L 501.080 #### [facility] [address] [place], [address] GFR/1.73 sq M.predicted among non-blacks MDRD (S/P/Bld) [Vol rate/Area] 56 mL/min/{1.73_m2} Low >60 [facility] Comment on above: Result Comment: Non- GFR Calc Performed By: #### L 501.080 #### [facility] [address] [place], [address] Globulin (S) [Mass/Vol] 3.4 g/dL Normal 2.2-4.[address] [facility] Comment on above: Performed By: #### L 501.080 #### [facility] [address] [place], [address] Glucose [Mass/Vol] 162 mg/dL High 74-106 [facility] Comment on above: Result Comment: Fast ing Glucose result greater than or equal to 126 mg/dL suggests DIABETES MELLITUS per A.D.A. criteria. Performed By: #### L 501.080 #### [facility] [address] [place], [address] Potassium [Moles/Vol] 4.3 mmol/L Normal 3.5-5.1 [facility] Comment on above: Performed By: #### L 501.080 #### [facility] [address] [place], [address] Sodium [Moles/Vol] 126 mmol/L Low 136-145 [facility] Comment on above: Performed By: #### L 501.080 #### [facility] [address] [place], [address] T PROT 6.9 g/dL Normal 6.4-8.2 [facility] Comment on above: Performed By: #### L 501.080 #### [facility] [address] [place], [address] Urea nitrogen [Mass/Vol] 12 mg/dL Normal 7-18 [facility] Comment on above: Performed By: #### L 501.080 #### [facility] [address] [place], [address] Urinalysis, Completeon 02-19 RBC 5-10 SEEN Normal 0-5 [facility] Comment on above: Order Comment: Urine , Random Performed By: #### L 501.080 #### [facility] [address] [place], [address] BILIRUBIN URINE Negative Normal Negative [facility] Comment on above: Order Comment: Urine , Random Performed By: #### L 501.080 #### [facility] [address] [place], [address] Clarity (U) Clear Normal Clear [facility] Comment on above: Order Comment: Urine , Random Performed By: #### L 501.080 #### [facility] [address] [place], [address] Color (U) Straw Normal Yellow [facility] Comment on above: Order Comment: Urine , Random Performed By: #### L 501.080 #### [facility] [address] [place], [address] GLUCOSE, UR Normal Normal Normal [facility] Comment on above: Order Comment: Urine , Random Performed By: #### L 501.080 #### [facility] [address] [place], [address] KETONE UR Negative Normal Negative [facility] Comment on above: Order Comment: Urine , Random Performed By: #### L 501.080 #### [facility] [address] [place], [address] LEUK ESTERASE Negative Normal Negative [facility] Comment on above: Order Comment: Urine , Random Performed By: #### L 501.080 #### [facility] [address] [place], [address] Nitrite Ql (U) Negative Normal Negative [facility] Comment on above: Order Comment: Urine , Random Performed By: #### L 501.080 #### [facility] [address] [place], [address] OCCULT BLOOD-UR 10 /ul Abnormal Negative [facility] Comment on above: Order Comment: Urine , Random Performed By: #### L 501.080 #### [facility] [address] [place], [address] pH UR 7.0 Normal 5.0 - 8.0 [facility] Comment on above: Order Comment: Urine , Random Performed By: #### L 501.080 #### [facility] [address] [place], [address] PROT DIPSTX 30 mg/dl Abnormal Negative [facility] Comment on above: Order Comment: Urine , Random Performed By: #### L 501.080 #### [facility] [address] [place], [address] SP.GR. DIPSTX 1.005 Normal 1.002-1.030 [facility] Comment on above: Order Comment: Urine , Random Performed By: #### L 501.080 #### [facility] [address] [place], [address] UROBILI Normal Normal Normal [facility] Comment on above: Order Comment: Urine , Random Performed By: #### L 501.080 #### [facility] [address] [place], [address] BACTERIA 0 SEEN Normal None Seen [facility] Comment on above: Order Comment: Urine , Random Performed By: #### L 501.080 #### [facility] [address] [place], [address] EPI,SQUAMOUS 0 SEEN Normal 0-5 [facility] Comment on above: Order Comment: Urine , Random Performed By: #### L 501.080 #### [facility] [address] [place], [address] Mucus Ql (Urine sed) 0 SEEN Normal [facility] Comment on above: Order Comment: Urine , Random Performed By: #### L 501.080 #### [facility] [address] [place], [address] WBC 0 SEEN Normal 0-5 [facility] Comment on above: Order Comment: Urine , Random Performed By: #### L 501.080 #### [facility] [address] [place], [address] CBC W/Diff, Automatedon 09-0 6-4 Absolute Lymph 1.05 X10 3/uL Normal 0.83-4.51 [facility] Comment on above: Performed By: #### L 501.080 #### [facility] [address] [place], [address] Absolute Neut 5.6 X10 3/uL Normal 2.0-7.7 [facility] Comment on above: Performed By: #### L 501.080 #### [facility] [address] [place], [address] Basophils/100 WBC (Bld) 0.7 % Normal 0-1 [facility] Comment on above: Performed By: #### L 501.080 #### [facility] [address] [place], [address] Eosinophils/100 WBC (Bld) 4.7 % Normal 0-5 [facility] Comment on above: Performed By: #### L 501.080 #### [facility] [address] [place], [address] Erythrocyte distribution width (RBC) [Ratio] 12.9 % Normal 11.6-14.6 [facility] Comment on above: Performed By: #### L 501.080 #### [facility] [address] [place], [address] Hematocrit (Bld) [Volume fraction] 40.8 % Normal 40-54 [facility] Comment on above: Performed By: #### L 501.080 #### [facility] [address] [place], [address] Hemoglobin (Bld) [Mass/Vol] 13.6 g/dL Normal 13.0-16.5 [facility] Comment on above: Performed By: #### L 501.080 #### [facility] [address] [place], [address] IG% 0.600 Normal 0.0-0.9 [facility] Comment on above: Result Comment: IG% - Immature Granulocytes (promyelocytes, myelocytes and metamyelocytes) > 1% indicates that a LEFT SHIFT is Present. Performed By: #### L 501.080 #### [facility] [address] [place], [address] Lymphocytes/100 WBC (Bld) 13.1 % Low 19-41 [facility] Comment on above: Performed By: #### [id number] #### [facility] [address] [place], [address] MCH (RBC) [Entitic mass] 29.4 pg Normal 27.0-32.0 [facility] Comment on above: Performed By: #### [id number] #### [facility] [address] [place], [address] MCHC (RBC) [Mass/Vol] 33.3 g/dL Normal 32-36 [facility] Comment on above: Performed By: #### [id number] #### [facility] [address] [place], [address] MCV (RBC) [Entitic vol] 88.3 fL Normal 80-[address] [facility] Comment on above: Performed By: #### L 501.080 #### [facility] [address] [place], [address] Monocytes/100 WBC (Bld) 11.3 % High 0-[address] [facility] Comment on above: Performed By: #### L 501.080 #### [facility] [address] [place], [address] Neutrophils/100 WBC (Bld) 69.6 % Normal 47-70 [facility] Comment on above: Performed By: #### L 501.080 #### [facility] [address] [place], [address] Nucleated RBC (Bld) [#/Vol] 0 10*3/uL Normal 0-5 [facility] Comment on above: Performed By: #### L 501.080 #### [facility] [address] [place], [address] Platelet mean volume (Bld) [Entitic vol] 10.7 fL Normal 6.2-12.0 [facility] Comment on above: Performed By: #### L 501.080 #### [facility] [address] [place], [address] Platelets (Bld) [#/Vol] 171 10*3/uL Normal 150-450 [facility] Comment on above: Performed By: #### L 501.080 #### [facility] [address] [place], [address] RBC (Bld) [#/Vol] 4.62 10*6/uL Normal 4.6-6.2 [facility] Comment on above: Performed By: #### L 501.080 #### [facility] [address] [place], [address] RDW SD 41.4 fl Normal 35.1-43.9 [facility] Comment on above: Performed By: #### L 501.080 #### [facility] [address] [place], [address] WBC (Bld) [#/Vol] 8.0 10*3/uL Normal 4.4-11.0 [facility] Comment on above: Performed By: #### L 501.080 #### [facility] [address] [place], [address] Comprehensive Metabolic Prof [facility] 01-24-2024 Albumin [Mass/Vol] 3.3 g/dL Normal 3.2-5.0 [facility] Comment on above: Performed By: #### L 501.080 #### [facility] [address] [place], [address] Albumin/Globulin [Mass ratio] 0.9 {ratio} Normal 0.9-2.4 [facility] Comment on above: Performed By: #### L 501.080 #### [facility] [address] [place], [address] ALK P 136 U/L High 45-117 [facility] Comment on above: Performed By: #### L [id number] #### [facility] [address] [place], [address] ALT [Catalytic activity/Vol] 22 U/L Normal 16-61 [facility] Comment on above: Performed By: #### L 501.080 #### [facility] [address] [place], [address] AST [Catalytic activity/Vol] 19 U/L Normal 15-37 [facility] Comment on above: Result Comment: Slig ht Hemolysis, Result may be falsely increased. Performed By: #### L 501.080 #### [facility] [address] [place], [address] Bilirubin [Mass/Vol] 1.50 mg/dL High 0.20-1.00 [facility] Comment on above: Result Comment: For patients on eltrombopag therapy, use of Dimension [place] TBIL is not recommended. Performed By: #### L 501.080 #### [facility] [address] [place], [address] BUN/CRE 10.2 RATIO Normal 10-20 [facility] Comment on above: Performed By: #### L 501.080 #### [facility] [address] [place], [address] CA,Total 8.6 mg/dL Normal 8.5-10.1 [facility] Comment on above: Performed By: #### L 501.080 #### [facility] [address] [place], [address] Chloride [Moles/Vol] 98 mmol/L Normal 98-107 [facility] Comment on above: Performed By: #### L [id number] #### [facility] [address] [place], [address] CO2 [Moles/Vol] 27.0 mmol/L Normal 21.0-32.0 [facility] Comment on above: Performed By: #### L 501.080 #### [facility] [address] [place], [address] Creatinine [Mass/Vol] 1.67 mg/dL High 0.70-1.30 [facility] Comment on above: Result Comment: The validity of the calculated GFR GFRAA in patients over 70 years has not been determined. Clinical correlation is essential. Performed By: #### L 501.080 #### [facility] [address] [place], [address] EST GFR - AA 50 mL/min Low >60 [facility] Comment on above: Result Comment: Afri can [place] GFR Calc Performed By: #### L 501.080 #### [facility] [address] [place], [address] GAP 7 Normal 5-15 [facility] Comment on above: Performed By: #### L [id number] #### [facility] [address] [place], [address] GFR/1.73 sq M.predicted among non-blacks MDRD (S/P/Bld) [Vol rate/Area] 41 mL/min/{1.73_m2} Low >60 [facility] Comment on above: Result Comment: Non- GFR Calc Performed By: #### L 501.080 #### [facility] [address] [place], [address] Globulin (S) [Mass/Vol] 3.8 g/dL Normal 2.2-4.[address] [facility] Comment on above: Performed By: #### L 501.080 #### [facility] [address] [place], [address] Glucose [Mass/Vol] 190 mg/dL High 74-106 [facility] Comment on above: Result Comment: Fast ing Glucose result greater than or equal to 126 mg/dL suggests DIABETES MELLITUS per A.D.A. criteria. Performed By: #### L 501.080 #### [facility] [address] [place], [address] Potassium [Moles/Vol] 4.6 mmol/L Normal 3.5-5.1 [facility] Comment on above: Result Comment: Slig ht Hemolysis, Result may be falsely increased. Performed By: #### L 501.080 #### [facility] [address] [place], [address] Sodium [Moles/Vol] 132 mmol/L Low 136-145 [facility] Comment on above: Performed By: #### L 501.080 #### [facility] [address] [place], [address] T PROT 7.1 g/dL Normal 6.4-8.2 [facility] Comment on above: Performed By: #### L 501.080 #### [facility] [address] [place], [address] Urea nitrogen [Mass/Vol] 17 mg/dL Normal 7-18 [facility] Comment on above: Performed By: #### L 501.080 #### [facility] [address] [place], [address] Hemoglobin A1con 01-24-2024 HbA1c (Bld) [Mass fraction] 6.1 % High 3.8-5.6 [facility] Comment on above: Result Comment: Norm al < 5.7 % Prediabetic 5.7 - 6.4 % Diabetic >or= 6.5 % Please note range changes. Performed By: #### L 501.080 #### [facility] [address] [place], [address] Lipid Profileon 01-24-2024 Cholesterol [Mass/Vol] 113 mg/dL Normal 200 [facility] Comment on above: Result Comment: <200 mg/dL Desirable 200-240 mg/dL Borderline >240 mg/dL High Risk Performed By: #### L 501.080 #### [facility] [address] [place], [address] Cholesterol in HDL [Mass/Vol] 56 mg/dL Normal [facility] Comment on above: Result Comment: The drugs N-Acetylcysteine and Metamizole may falsely depress this assay. Reference Range HDL <40 mg/dL Low HDL Cholesterol HDL >or= 60 mg/dL High HDL Cholesterol Performed By: #### L [id number] #### [facility] [address] [place], [address] Cholesterol in LDL [Mass/Vol] 41 mg/dL Normal 0-130 [facility] Comment on above: Performed By: #### L [id number] #### [facility] [address] [place], [address] Cholesterol in VLDL [Mass/Vol] 16 mg/dL Normal 5-40 [facility] Comment on above: Performed By: #### L 501.080 #### [facility] [address] [place], [address] Triglyceride [Mass/Vol] 80 mg/dL Normal [facility] Comment on above: Result Comment: The drugs N-Acetylcysteine and Metamizole may falsely depress this assay. Serum Triglycerides Reference Interval Normal <150 mg/dL Borderline high 150 - 199 mg/dL High 200 - 499 mg/dL Very High > or = 500 mg/dL Performed By: #### L 501.080 #### [facility] [address] [place], [address] Thyroid Stim Hormone (TSH)on 01-24-2024 TSH 2.480 uIU/mL Normal 0.358-3.740 [facility] Comment on above: Performed By: #### L 501.080 #### [facility] [address] [place], [place], [address] Vitamin D,25 Hydroxyon 01-23 Vitamin D 25-OH 33.6 ng/mL Normal [facility] Comment on above: Result Comment: Mary min D 25(OH) Status Range Deficiency <20 ng/mL (50nmol/L) Insufficiency 20 - 30 ng/mL (50 - 75 nmol/L) Sufficiency 30 - 100 ng/mL (75 - 250 nmol/L) Toxicity >100 ng/mL (>250 nmol/L) Performed By: #### L 501.080 #### [facility] [address] [place], [place], [id number] Absolute lymphocyte countOrd ered By: Bernard Raffi on 07-24-2023 Lymphocytes Auto (Unsp spec) [#/Vol] 1.16 10*3/uL 0.83-4.51 [facility] Automated lymphocyte count a s percentage of total leukocytesOrdered By: Bernard Nugent on 07-24-2023 Lymphocytes/100 WBC Auto (Unsp spec) 12.7 % 19-41 [facility] Basophil percentageOrdered B y: Bernard Nugent on 07-24-2023 Basophils/100 WBC (Bld) 0.4 % 0-[address] [facility] Bilirubin [Mass/Vol] 2.20 mg/dL 0.20-1.00 [facility] Comment on above: For patients on eltr ombopag therapy, use of Dimension [place] TBIL is not recommended. Chloride [Moles/Vol] 103 mmol/L 98-107 [facility] Cholesterol [Mass/Vol] 131 mg/dL <200 [facility] Comment on above: <200 mg/dL Desirable 200-240 mg/dL Borderline >240 mg/dL High Risk Eosinophils/100 WBC (Bld) 3.0 % 0-5 [facility] Glucose [Mass/Vol] 191 mg/dL 74-106 [facility] Comment on above: Fasting Glucose resu lt greater than or equal to 126 mg/dL suggests DIABETES MELLITUS per A.D.A. criteria. Hemoglobin (Bld) [Mass/Vol] 14.6 g/dL 13.0-16.5 [facility] Monocytes/100 WBC (Bld) 8.1 % 0-10 [facility] Neutrophils (Bld) [#/Vol] 6.9 10*3/uL 2.0-7.7 [facility] Neutrophils/100 WBC (Bld) 75.0 % 47-70 [facility] Potassium [Moles/Vol] 4.2 mmol/L 3.5-5.1 [facility] Protein [Mass/Vol] 6.7 g/dL 6.4-8.2 [facility] Sodium [Moles/Vol] 135 mmol/L 136-145 [facility] Triglyceride [Mass/Vol] 130 mg/dL <199 [facility] Comment on above: The drugs N-Acetylcy steine and Metamizole may falsely depress this assay.Serum Triglycerides Reference Interval Normal <150 mg/dL Borderline high 150 - 199 mg/dL High 200 - 499 mg/dL Very High > or = 500 mg/dL WBC (Bld) [#/Vol] 9.1 10*3/uL 4.4-11.0 [facility] Determination of erythrocyte mean corpuscular volume (MCV)Ordered By: Bernard Nugent on 07-24-2023 MCV (RBC) [Entitic vol] 90.3 fL 80-94 [facility] Erythrocyte distribution wid th ratioOrdered By: Bernard Nugent on 07-24-2023 Erythrocyte distribution width (RBC) [Ratio] 13.2 % 11.6-14.6 [facility] Erythrocyte distribution wid th standard deviationOrdered By: Bernard Nugent on 07-24-2023 Erythrocyte distribution width (RBC) [Entitic vol] 44.2 fL 35.1-43.9 [facility] Hematocrit Auto (Bld) [Volum e fraction]Ordered By: Bernard Nugent on 07-24-2023 Hematocrit (Bld) [Volume fraction] 42.7 % 40-54 [facility] Immature granulocytes/100 WB C Auto (Bld)Ordered By: Bernard Nugent on 07-24-2023 Immature granulocytes/100 WBC (Bld) 0.800 % 0.0-0.9 [facility] Comment on above: IG% - Immature Granu locytes (promyelocytes, myelocytes and metamyelocytes) > 1% indicates that a LEFT SHIFT is Present. Laboratory - Chemistry and C hemistry - challengeOrdered By: Bernard Nugent on 07-24-2023 Albumin/Globulin [Mass ratio] 1.0 {ratio} 0.9-2.4 [facility] ALP [Catalytic activity/Vol] 126 U/L 45-117 [facility] ALT [Catalytic activity/Vol] 20 U/L 16-61 [facility] Cholesterol in HDL [Mass/Vol] 53 mg/dL >40 [facility] Comment on above: The drugs N-Acetylcy steine and Metamizole may falsely depress this assay. Reference Range HDL <40 mg/dL Low HDL Cholesterol HDL >or= 60 mg/dL High HDL Cholesterol Cholesterol in LDL [Mass/Vol] 52 mg/dL 0-130 [facility] CO2 [Moles/Vol] 25.0 mmol/L 21.0-32.0 [facility] Globulin (S) [Mass/Vol] 3.4 g/dL 2.2-4.2 [facility] Urea nitrogen/Creatinine [Mass ratio] 9.4 mg/mg 10-20 [facility] - Hematology and Cell countsOrdered By: Bernard Nugent on 07-24-2023 MCH (RBC) [Entitic mass] 30.9 pg 27.0-32.0 [facility] MCHC (RBC) [Mass/Vol] 34.2 g/dL 32-36 [facility] Nucleated RBC/100 WBC (Bld) [Ratio] 0 % 0-5 [facility] Platelet mean volume (Bld) [Entitic vol] 11.6 fL 6.2-12.0 [facility] Platelets (Bld) [#/Vol] 241 10*3/uL 150-450 [facility] No Panel InformationOrdered By: Bernard Nugent on 07-24-2023 Estimated GFR (MDRD) Amer 49 mL/min >60 [facility] Comment on above: GFR Calc Estimated GFR (MDRD) Non-Af Amer 41 mL/min >60 [facility] Comment on above: Non- GFR Calc Vitamin D 25-Hydroxy 32.0 ng/mL [facility] Comment on above: Vitamin D 25(OH) Sta tus Range Deficiency <20 ng/mL (50nmol/L) Insufficiency 20 - 30 ng/mL (50 - 75 nmol/L) Sufficiency 30 - 100 ng/mL (75 - 250 nmol/L) Toxicity >100 ng/mL (>250 nmol/L) VLDL Cholesterol 26 mg/dL 5-40 [facility] RBC Auto (Bld) [#/Vol]Ordere d By: Bernard Nugent on 07-24-2023 RBC (Bld) [#/Vol] 4.73 10*6/uL 4.6-6.2 [facility] Serum or plasma calcium sita urement (mass/volume)Ordered By: Bernard Nugent on 07-24-2023 Calcium [Mass/Vol] 8.8 mg/dL 8.5-10.1 [facility] Serum or plasma creatinine m easurement (mass/volume)Ordered By: Bernard Nugent on 07-24-2023 Creatinine [Mass/Vol] 1.70 mg/dL 0.70-1.30 [facility] Comment on above: The validity of the calculated GFR & GFRAA in patients over 70 years has not been determined. Clinical correlation is essential. Serum or plasma thyroid stim ulating hormone (TSH) measurement (units/volume)Ordered By: Bernard Nugent on 07-24-2023 TSH Qn 6.68 uIU/mL 0.358-3.74 [facility] Serum or plasma urea nitroge n measurement (mass/volume)Ordered By: Bernard Nugent on 07-24-2023 Urea nitrogen [Mass/Vol] 16 mg/dL 7-18 [facility] Thin prep Papanicolaou smear with manual screeningOrdered By: Bernard Nugent on 07-24-2023 Thin prep Papanicolaou smear with manual screening 3.3 g/dL 3.2-5.0 [facility] Thin prep Papanicolaou smear with manual screening 15 U/L 15-37 [facility] Thin prep Papanicolaou smear with manual screening 7 5-15 [facility] Whole blood hemoglobin A1c/t otal hemoglobin ratio (mass fraction)Ordered By: Bernard Nugent on 07-24-2023 HbA1c (Bld) [Mass fraction] 6.2 % 3.8-5.6 [facility] Comment on above: Normal < 5.7 % Predi abetic 5.7 - 6.4 % Diabetic >or= 6.5 % Please note range changes. Absolute lymphocyte countOrd ered By: Ray Stuart on 07-07-2023 Lymphocytes Auto (Unsp spec) [#/Vol] 0.52 10*3/uL 0.83-4.51 [facility] Automated lymphocyte count a s percentage of total leukocytesOrdered By: Ray Stuart on 07-07-2023 Lymphocytes/100 WBC Auto (Unsp spec) 2.9 % 19-41 [facility] Basophil percentageOrdered B y: Ray Stuart on 07-07-2023 Basophils/100 WBC (Bld) 0.3 % 0-1 [facility] Chloride [Moles/Vol] 99 mmol/L 98-107 [facility] Eosinophils/100 WBC (Bld) 0.4 % 0-5 [facility] Glucose [Mass/Vol] 243 mg/dL 74-106 [facility] Comment on above: Glucose result great er than or equal to 200 mg/dLsuggests DIABETES MELLITUS per A.D.A. criteria. Hemoglobin (Bld) [Mass/Vol] 16.5 g/dL 13.0-16.5 [facility] Monocytes/100 WBC (Bld) 7.1 % 0-10 [facility] Neutrophils (Bld) [#/Vol] 15.7 10*3/uL 2.0-7.7 [facility] Neutrophils/100 WBC (Bld) 88.7 % 47-70 [facility] Potassium [Moles/Vol] 3.8 mmol/L 3.5-5.1 [facility] Sodium [Moles/Vol] 134 mmol/L 136-145 [facility] WBC (Bld) [#/Vol] 17.7 10*3/uL 4.4-11.0 [facility] Basophil percentage 0 SEEN /hpf 0-5 [facility] Bilirubin Test strip Ql (U)O rdered By: Ray Stuart on 07-07-2023 Bilirubin Ql (U) Negative Negative [facility] Determination of erythrocyte mean corpuscular volume (MCV)Ordered By: Ray Stuart on 07-07-2023 MCV (RBC) [Entitic vol] 90.6 fL 80-94 [facility] Erythrocyte distribution wid th ratioOrdered By: Ray Stuart on 07-07-2023 Erythrocyte distribution width (RBC) [Ratio] 13.5 % 11.6-14.6 [facility] Erythrocyte distribution wid th standard deviationOrdered By: Ray Stuart on 07-07-2023 Erythrocyte distribution width (RBC) [Entitic vol] 45.1 fL 35.1-43.9 [facility] Hematocrit Auto (Bld) [Volum e fraction]Ordered By: Ray Stuart on 07-07-2023 Hematocrit (Bld) [Volume fraction] 48.1 % 40-54 [facility] Immature granulocytes/100 WB C Auto (Bld)Ordered By: Ray Stuart on 07-07-2023 Immature granulocytes/100 WBC (Bld) 0.600 % 0.0-0.9 [facility] Comment on above: IG% - Immature Granu locytes (promyelocytes, myelocytes and metamyelocytes) > 1% indicates that a LEFT SHIFT is Present. Ketones Test strip Ql (U)Ord ered By: Ray Stuart on 07-07-2023 Ketones Ql (U) Negative Negative [facility] - Chemistry and C hemistry - challengeOrdered By: Ray Stuart on 07-07-2023 CO2 [Moles/Vol] 29.0 mmol/L 21.0-32.0 [facility] Natriuretic peptide B (Bld) [Mass/Vol] 332.6 pg/mL 0-100 [facility] Urea nitrogen/Creatinine [Mass ratio] 7.4 mg/mg 10-20 [facility] - Hematology and Cell countsOrdered By: Ray Stuart on 07-07-2023 MCH (RBC) [Entitic mass] 31.1 pg 27.0-32.0 [facility] MCHC (RBC) [Mass/Vol] 34.3 g/dL 32-36 [facility] Nucleated RBC/100 WBC (Bld) [Ratio] 0 % 0-5 [facility] Platelet mean volume (Bld) [Entitic vol] 11.7 fL 6.2-12.0 [facility] Platelets (Bld) [#/Vol] 199 10*3/uL 150-450 [facility] - Microbiology an d Antimicrobial susceptibilityOrdered By: Ray Stuart on 07-07-2023 SARS-CoV-2 (COVID-19) RNA MELIZA+probe Ql (Unsp spec) [facility] SARS-CoV-2 (COVID-19) RNA MELIZA+probe Ql (Unsp spec) [facility] Mucus LM Ql (Urine sed)Order ed By: Ray Stuart on 07-07-2023 Mucus Ql (Urine sed) 0 SEEN /hpf [facility] Nitrite Test strip Ql (U)Ord ered By: Ray Stuart on 07-07-2023 Nitrite Ql (U) Negative Negative [facility] No Panel InformationOrdered By: Ray Stuart on 07-07-2023 Troponin I High Sensitivity 44 pg/mL 3.0-78.0 [facility] Comment on above: Please Note: [place] t Units and Gender Specific Reference Ranges. For more information see Policy Stat Procedure [place] High Sensitivity Troponin (TNIH) and attachments. Estimated Creatinine Clearance Calc 37.04 ml/min [facility] Estimated GFR (MDRD) Amer 52 mL/min >60 [facility] Comment on above: GFR Calc Estimated GFR (MDRD) Non-Af Amer 43 mL/min >60 [facility] Comment on above: Non- GFR Calc Urine RBC 0 SEEN /hpf 0-5 [facility] Protein Test strip Ql (U)Ord ered By: Ray Stuart on 07-07-2023 Protein Ql (U) 30 mg/dl Negative [facility] RBC Auto (Bld) [#/Vol]Ordere d By: Ray Stuart on 07-07-2023 RBC (Bld) [#/Vol] 5.31 10*6/uL 4.6-6.2 [facility] Serum or plasma calcium sita urement (mass/volume)Ordered By: Ray Stuart on 07-07-2023 Calcium [Mass/Vol] 9.7 mg/dL 8.5-10.1 [facility] Serum or plasma creatinine m easurement (mass/volume)Ordered By: Ray Stuart on 07-07-2023 Creatinine [Mass/Vol] 1.62 mg/dL 0.70-1.30 [facility] Comment on above: The validity of the calculated GFR & GFRAA in patients over 70 years has not been determined. Clinical correlation is essential. Serum or plasma urea nitroge n measurement (mass/volume)Ordered By: Ray Stuart on 07-07-2023 Urea nitrogen [Mass/Vol] 12 mg/dL - [facility] Squamous epithelial cells de tection in urine sediment by light microscopyOrdered By: Ray Stuart on 07-07-2023 Epithelial cells.squamous LM Ql (Urine sed) 0 SEEN /hpf 0-5 [facility] Thin prep Papanicolaou smear with manual screeningOrdered By: Ray Stuart on 07-07-2023 Thin prep Papanicolaou smear with manual screening 6 5-15 [facility] Urine blood detectionOrdered By: Ray Stuart on 07-07-2023 RBC Ql (U) 10 /ul Negative [facility] Urine clarityOrdered By: Telma Stuart on 07-07-2023 Clarity (U) Clear Clear [facility] Urine color determinationOrd ered By: Ray Stuart on 07-07-2023 Color (U) Yellow Yellow [facility] Urine glucose detectionOrder ed By: Ray Stuart on 07-07-2023 Glucose Ql (U) Normal mg/dl Normal [facility] Urine leukocyte esterase det ection by dipstickOrdered By: Ray Stuart on 07-07-2023 Leukocyte esterase Test strip Ql (U) Negative Negative [facility] Urine pHOrdered By: Ray yousif on 07-07-2023 pH (U) 6.5 [pH] 5.0 - 8.0 [facility] Urine sediment bacteria coun t by microscopy (number/high power field)Ordered By: Ray Stuart on 07-07-2023 Bacteria LM.HPF (Urine sed) [#/Area] 0 /[HPF] None Seen [facility] Urine specific gravity measu rementOrdered By: Ray Stuart on 07-07-2023 Specific gravity (U) [Rel density] 1.010 1.002-1.030 [facility] Urine urobilinogen measureme ntOrdered By: Ray Stuart on 07-07-2023 Urobilinogen Ql (U) Normal mg/dl Normal [facility] Absolute lymphocyte countOrd ered By: Anson Fonseca on 05-26-2023 Lymphocytes Auto (Unsp spec) [#/Vol] 1.19 10*3/uL 0.83-4.51 [facility] Basophil percentageOrdered B y: Anson Fonseca on 05-26-2023 Basophils/100 WBC (Bld) 0.6 % 0-1 [facility] Bilirubin [Mass/Vol] 2.20 mg/dL 0.20-1.00 [facility] Comment on above: For patients on eltr ombopag therapy, use of Dimension [place] TBIL is not recommended. Chloride [Moles/Vol] 102 mmol/L 98-107 [facility] Eosinophils/100 WBC (Bld) 1.3 % 0-5 [facility] Glucose [Mass/Vol] 106 mg/dL 74-106 [facility] Comment on above: Fasting Glucose resu lt from 100 to 125 mg/dL suggests IMPAIRED HOMEOSTASIS per A.D.A. criteria. Neutrophils (Bld) [#/Vol] 8.0 10*3/uL 2.0-7.7 [facility] Neutrophils/100 WBC (Bld) 76.8 % 47-70 [facility] Potassium [Moles/Vol] 3.6 mmol/L 3.5-5.1 [facility] Protein [Mass/Vol] 7.3 g/dL 6.4-8.2 [facility] Sodium [Moles/Vol] 137 mmol/L 136-145 [facility] WBC (Bld) [#/Vol] 10.4 10*3/uL 4.4-11.0 [facility] Blood erythrocytes count (nu mber/volume)Ordered By: Anson Fonseca on 05-26-2023 RBC (Bld) [#/Vol] 5.04 10*6/uL 4.6-6.2 [facility] Blood hemoglobin measurement (mass/volume)Ordered By: Anson Fonseca on 05-26-2023 Hemoglobin (Bld) [Mass/Vol] 15.6 g/dL 13.0-16.5 [facility] Blood lymphocytes/100 leukoc ytesOrdered By: Anson Fonseca on 05-26-2023 Lymphocytes/100 WBC (Bld) 11.5 % 19-41 [facility] Blood monocytes/100 leukocyt esOrdered By: Anson Fonseca on 05-26-2023 Monocytes/100 WBC (Bld) 9.1 % 0-10 [facility] Blood platelet mean volumeOr dered By: Anson Fonseca on 05-26-2023 Platelet mean volume (Bld) [Entitic vol] 11.1 fL 6.2-12.0 [facility] Determination of erythrocyte mean corpuscular volume (MCV)Ordered By: Anson Fonseca on 05-26-2023 MCV (RBC) [Entitic vol] 90.3 fL 80-94 [facility] Hematocrit Auto (Bld) [Volum e fraction]Ordered By: Anson Fonseca on 05-26-2023 Hematocrit (Bld) [Volume fraction] 45.5 % 40-54 [facility] Laboratory - Chemistry and C hemistry - challengeOrdered By: Anson Fonseca on 05-26-2023 ALP [Catalytic activity/Vol] 142 U/L 45-117 [facility] ALT [Catalytic activity/Vol] 32 U/L 16-61 [facility] CO2 [Moles/Vol] 29.0 mmol/L 21.0-32.0 [facility] Globulin (S) [Mass/Vol] 3.8 g/dL 2.2-4.2 [facility] Urea nitrogen/Creatinine [Mass ratio] 11.9 mg/mg 10-20 [facility] Laboratory - Hematology and Cell countsOrdered By: Anson Fonseca on 05-26-2023 Erythrocyte distribution width (RBC) [Entitic vol] 43.1 fL 35.1-43.9 [facility] Erythrocyte distribution width (RBC) [Ratio] 13.2 % 11.6-14.6 [facility] Immature granulocytes/100 WBC (Bld) 0.700 % 0.0-0.9 [facility] Comment on above: IG% - Immature Granu locytes (promyelocytes, myelocytes and metamyelocytes) > 1% indicates that a LEFT SHIFT is Present. MCH (RBC) [Entitic mass] 31.0 pg 27.0-32.0 [facility] Nucleated RBC/100 WBC (Bld) [Ratio] 0 % 0-5 [facility] MCHC Auto (RBC) [Mass/Vol]Or dered By: Anson Fonseca on 05-26-2023 MCHC (RBC) [Mass/Vol] 34.3 g/dL 32-36 [facility] No Panel InformationOrdered By: Anson Fonseca on 05-26-2023 Estimated Creatinine Clearance Calc 30.36 ml/min [facility] Estimated GFR (MDRD) Amer 47 mL/min >60 [facility] Comment on above: GFR Calc Estimated GFR (MDRD) Non-Af Amer 39 mL/min >60 [facility] Comment on above: Non- GFR Calc Platelets bldOrdered By: Ignacio Fonseca on 05-26-2023 Platelets (Bld) [#/Vol] 206 10*3/uL 150-450 [facility] Serum or plasma albumin sita urement (mass/volume)Ordered By: Anson Fonseca on 05-26-2023 Albumin [Mass/Vol] 3.5 g/dL 3.2-5.0 [facility] Serum or plasma albumin/glob ulin mass ratioOrdered By: Anson Fonseca on 05-26-2023 Albumin/Globulin [Mass ratio] 0.9 {ratio} 0.9-2.4 [facility] Serum or plasma calcium sita urement (mass/volume)Ordered By: Anson Fonseca on 05-26-2023 Calcium [Mass/Vol] 8.5 mg/dL 8.5-10.1 [facility] Serum or plasma creatinine m easurement (mass/volume)Ordered By: Anson Fonseca on 05-26-2023 Creatinine [Mass/Vol] 1.77 mg/dL 0.70-1.30 [facility] Comment on above: The validity of the calculated GFR & GFRAA in patients over 70 years has not been determined. Clinical correlation is essential. Serum or plasma urea nitroge n measurement (mass/volume)Ordered By: Anson Fonseca on 05-26-2023 Urea nitrogen [Mass/Vol] 21 mg/dL 7-18 [facility] Thin prep Papanicolaou smear with manual screeningOrdered By: Anson Fonseca on 05-26-2023 Thin prep Papanicolaou smear with manual screening 31 U/L 15-37 [facility] Thin prep Papanicolaou smear with manual screening 6 5-15 [facility] Basophil percentageOrdered B y: Bernard Nugent on 03-25-2023 Chloride [Moles/Vol] 103 mmol/L 98-107 [facility] Glucose [Mass/Vol] 154 mg/dL 74-106 [facility] Comment on above: Fasting Glucose resu lt greater than or equal to 126 mg/dL suggests DIABETES MELLITUS per A.D.A. criteria. Potassium [Moles/Vol] 3.7 mmol/L 3.5-5.1 [facility] Sodium [Moles/Vol] 138 mmol/L 136-145 [facility] Laboratory - Chemistry and C hemistry - challengeOrdered By: Bernard Nugent on 03-25-2023 CO2 [Moles/Vol] 27.0 mmol/L 21.0-32.0 [facility] Urea nitrogen/Creatinine [Mass ratio] 10.2 mg/mg 10-20 [facility] No Panel InformationOrdered By: Bernard Nugent on 03-25-2023 Estimated GFR (MDRD) Amer 50 mL/min >60 [facility] Comment on above: GFR Calc Estimated GFR (MDRD) Non-Af Amer 42 mL/min >60 [facility] Comment on above: Non- GFR Calc Serum or plasma calcium sita urement (mass/volume)Ordered By: Bernard Nugent on 03-25-2023 Calcium [Mass/Vol] 8.6 mg/dL 8.5-10.1 [facility] Serum or plasma creatinine m easurement (mass/volume)Ordered By: Bernard Nugent on 03-25-2023 Creatinine [Mass/Vol] 1.67 mg/dL 0.70-1.30 [facility] Comment on above: The validity of the calculated GFR & GFRAA in patients over 70 years has not been determined. Clinical correlation is essential. Serum or plasma urea nitroge n measurement (mass/volume)Ordered By: Bernard Nugent on 03-25-2023 Urea nitrogen [Mass/Vol] 17 mg/dL 7-18 [facility] Thin prep Papanicolaou smear with manual screeningOrdered By: Bernard Nugent on 03-25-2023 Thin prep Papanicolaou smear with manual screening 8 5-15 [facility] Absolute lymphocyte countOrd ered By: Raghu Acosta on 03-24-2023 Lymphocytes Auto (Unsp spec) [#/Vol] 0.79 10*3/uL 0.83-4.51 [facility] Basophil percentageOrdered B y: aRghu Acosta on 03-24-2023 Basophil percentage 0 SEEN /hpf 0-5 [facility] Basophils/100 WBC (Bld) 0.5 % 0-[address] [facility] Bilirubin [Mass/Vol] 2.20 mg/dL 0.20-1.00 [facility] Comment on above: For patients on eltr ombopag therapy, use of Dimension [place] TBIL is not recommended. Chloride [Moles/Vol] 99 mmol/L 98-107 [facility] Eosinophils/100 WBC (Bld) 1.0 % 0-5 [facility] Glucose [Mass/Vol] 279 mg/dL 74-106 [facility] Comment on above: Glucose result great er than or equal to 200 mg/dLsuggests DIABETES MELLITUS per A.D.A. criteria. Neutrophils (Bld) [#/Vol] 7.1 10*3/uL 2.0-7.7 [facility] Neutrophils/100 WBC (Bld) 82.0 % 47-70 [facility] Potassium [Moles/Vol] 3.7 mmol/L 3.5-5.1 [facility] Protein [Mass/Vol] 6.9 g/dL 6.4-8.2 [facility] Sodium [Moles/Vol] 135 mmol/L 136-145 [facility] WBC (Bld) [#/Vol] 8.6 10*3/uL 4.4-11.0 [facility] Bilirubin Test strip Ql (U)O rdered By: Raghu Acosta on 03-24-2023 Bilirubin Ql (U) Negative Negative [facility] Blood erythrocytes count (nu mber/volume)Ordered By: Raghu Acosta on 03-24-2023 RBC (Bld) [#/Vol] 4.82 10*6/uL 4.6-6.2 [facility] Blood hemoglobin measurement (mass/volume)Ordered By: Raghu Acosta on 03-24-2023 Hemoglobin (Bld) [Mass/Vol] 14.7 g/dL 13.0-16.5 [facility] Blood lymphocytes/100 leukoc ytesOrdered By: Raghu Acosta on 03-24-2023 Lymphocytes/100 WBC (Bld) 9.1 % 19-41 [facility] Blood monocytes/100 leukocyt esOrdered By: Raghu Acosta on 03-24-2023 Monocytes/100 WBC (Bld) 6.9 % 0-10 [facility] Blood platelet mean volumeOr dered By: Raghu Acosta on 03-24-2023 Platelet mean volume (Bld) [Entitic vol] 11.7 fL 6.2-12.0 [facility] Determination of erythrocyte mean corpuscular volume (MCV)Ordered By: Raghu Acosta on 03-24-2023 MCV (RBC) [Entitic vol] 89.2 fL 80-94 [facility] Hematocrit Auto (Bld) [Volum e fraction]Ordered By: Raghu Acosta on 03-24-2023 Hematocrit (Bld) [Volume fraction] 43.0 % 40-54 [facility] Ketones Test strip Ql (U)Ord ered By: Raghu Acosta on 03-24-2023 Ketones Ql (U) Negative Negative [facility] Laboratory - Chemistry and C hemistry - challengeOrdered By: Raghu Acosta on 03-24-2023 ALP [Catalytic activity/Vol] 132 U/L 45-117 [facility] ALT [Catalytic activity/Vol] 20 U/L 16-61 [facility] CO2 [Moles/Vol] 29.0 mmol/L 21.0-32.0 [facility] Globulin (S) [Mass/Vol] 3.7 g/dL 2.2-4.2 [facility] Urea nitrogen/Creatinine [Mass ratio] 9.9 mg/mg 10-20 [facility] Laboratory - Hematology and Cell countsOrdered By: Raghu Acosta on 03-24-2023 Erythrocyte distribution width (RBC) [Entitic vol] 44.8 fL 35.1-43.9 [facility] Erythrocyte distribution width (RBC) [Ratio] 13.8 % 11.6-14.6 [facility] Immature granulocytes/100 WBC (Bld) 0.500 % 0.0-0.9 [facility] Comment on above: IG% - Immature Granu locytes (promyelocytes, myelocytes and metamyelocytes) > 1% indicates that a LEFT SHIFT is Present. MCH (RBC) [Entitic mass] 30.5 pg 27.0-32.0 [facility] Nucleated RBC/100 WBC (Bld) [Ratio] 0 % 0-5 [facility] MCHC Auto (RBC) [Mass/Vol]Or dered By: Raghu Acosta on 03-24-2023 MCHC (RBC) [Mass/Vol] 34.2 g/dL 32-36 [facility] Mucus LM Ql (Urine sed)Order ed By: Raghu Acosta on 03-24-2023 Mucus Ql (Urine sed) 0 SEEN /hpf [facility] Nitrite Test strip Ql (U)Ord ered By: Raghu Acosta on 03-24-2023 Nitrite Ql (U) Negative Negative [facility] No Panel InformationOrdered By: Raghu Acosta on 03-24-2023 Estimated Creatinine Clearance Calc 27.99 ml/min [facility] Estimated GFR (MDRD) Amer 43 mL/min >60 [facility] Comment on above: GFR Calc Estimated GFR (MDRD) Non-Af Amer 35 mL/min >60 [facility] Comment on above: Non- GFR Calc Troponin I High Sensitivity 32 pg/mL 3.0-78.0 [facility] Comment on above: Please Note: [place] t Units and Gender Specific Reference Ranges. For more information see Policy Stat Procedure [place] High Sensitivity Troponin (TNIH) and attachments. Platelets bldOrdered By: Delio Acosta on 03-24-2023 Platelets (Bld) [#/Vol] 170 10*3/uL 150-450 [facility] Protein Test strip Ql (U)Ord ered By: Raghu Acosta on 03-24-2023 Protein Ql (U) 15 mg/dl Negative [facility] Serum or plasma albumin sita urement (mass/volume)Ordered By: Raghu Acosta on 03-24-2023 Albumin [Mass/Vol] 3.2 g/dL 3.2-5.0 [facility] Serum or plasma albumin/glob ulin mass ratioOrdered By: Raghu Acosta on 03-24-2023 Albumin/Globulin [Mass ratio] 0.9 {ratio} 0.9-2.4 [facility] Serum or plasma calcium sita urement (mass/volume)Ordered By: Raghu Acosta on 03-24-2023 Calcium [Mass/Vol] 8.4 mg/dL 8.5-10.1 [facility] Serum or plasma creatinine m easurement (mass/volume)Ordered By: Raghu Acosta on 03-24-2023 Creatinine [Mass/Vol] 1.92 mg/dL 0.70-1.30 [facility] Comment on above: The validity of the calculated GFR & GFRAA in patients over 70 years has not been determined. Clinical correlation is essential. Serum or plasma urea nitroge n measurement (mass/volume)Ordered By: Raghu Acosta on 03-24-2023 Urea nitrogen [Mass/Vol] 19 mg/dL 7-18 [facility] Squamous epithelial cells de tection in urine sediment by light microscopyOrdered By: Raghu Acosta on 03-24-2023 Epithelial cells.squamous LM Ql (Urine sed) 0 SEEN /hpf 0-5 [facility] Thin prep Papanicolaou smear with manual screeningOrdered By: Raghu Acosta on 03-24-2023 Thin prep Papanicolaou smear with manual screening 14 U/L 15-37 [facility] Thin prep Papanicolaou smear with manual screening 7 5-15 [facility] Urine blood detectionOrdered By: Raghu Acosta on 03-24-2023 RBC Ql (U) 10 /ul Negative [facility] RBC Ql (U) 0 SEEN /hpf 0-5 [facility] Urine clarityOrdered By: Delio Acosta on 03-24-2023 Clarity (U) Clear Clear [facility] Urine color determinationOrd ered By: Raghu Acosta on 03-24-2023 Color (U) Yellow Yellow [facility] Urine glucose detectionOrder ed By: Raghu Acosta on 03-24-2023 Glucose Ql (U) 100 mg/dl Normal [facility] Urine leukocyte esterase det ection by dipstickOrdered By: Raghu Acosta on 03-24-2023 Leukocyte esterase Test strip Ql (U) Negative Negative [facility] Urine pHOrdered By: Raghu childress on 03-24-2023 pH (U) 7.0 [pH] 5.0 - 8.0 [facility] Urine sediment bacteria coun t by microscopy (number/high power field)Ordered By: Raghu Acosta on 03-24-2023 Bacteria LM.HPF (Urine sed) [#/Area] 0 /[HPF] None Seen [facility] Urine specific gravity measu rementOrdered By: Raghu Acosta on 03-24-2023 Specific gravity (U) [Rel density] 1.010 1.002-1.030 [facility] Urobilinogen Auto test strip Ql (U)Ordered By: Raghu Acosta on 03-24-2023 Urobilinogen Ql (U) Normal mg/dl Normal [facility] Basophil percentageOrdered B y: Shaila Haq on 02-07-2023 Basophil percentage 2.9 mg/dL 2.5-4.9 [facility] Chloride [Moles/Vol] 100 mmol/L 98-107 [facility] Glucose [Mass/Vol] 159 mg/dL 74-106 [facility] Comment on above: Fasting Glucose resu lt greater than or equal to 126 mg/dL suggests DIABETES MELLITUS per A.D.A. criteria. Potassium [Moles/Vol] 3.7 mmol/L 3.5-5.1 [facility] Sodium [Moles/Vol] 136 mmol/L 136-145 [facility] Laboratory - Chemistry and C hemistry - challengeOrdered By: Shaila Haq on 02-07-2023 CO2 [Moles/Vol] 32.0 mmol/L 21.0-32.0 [facility] Urea nitrogen/Creatinine [Mass ratio] 8.5 mg/mg 10-20 [facility] No Panel InformationOrdered By: Shaila Haq on 02-07-2023 Estimated GFR (MDRD) Amer 56 mL/min >60 [facility] Comment on above: GFR Calc Estimated GFR (MDRD) Non-Af Amer 46 mL/min >60 [facility] Comment on above: Non- GFR Calc Serum or plasma albumin sita urement (mass/volume)Ordered By: Shaila Haq on 02-07-2023 Albumin [Mass/Vol] 3.5 g/dL 3.2-5.0 [facility] Serum or plasma calcium sita urement (mass/volume)Ordered By: Shaila Haq on 02-07-2023 Calcium [Mass/Vol] 8.5 mg/dL 8.5-10.1 [facility] Serum or plasma creatinine m easurement (mass/volume)Ordered By: Shaila Haq on 02-07-2023 Creatinine [Mass/Vol] 1.53 mg/dL 0.70-1.30 [facility] Comment on above: The validity of the calculated GFR & GFRAA in patients over 70 years has not been determined. Clinical correlation is essential. Serum or plasma urea nitroge n measurement (mass/volume)Ordered By: Shaila Haq on 02-07-2023 Urea nitrogen [Mass/Vol] 13 mg/dL 7-18 [facility] Absolute lymphocyte countOrd ered By: Bernard Nugent on 01-22-2023 Lymphocytes Auto (Unsp spec) [#/Vol] 1.04 10*3/uL 0.83-4.51 [facility] Basophil percentageOrdered B y: Bernard Nugent on 01-22-2023 Basophils/100 WBC (Bld) 0.6 % 0-1 [facility] Bilirubin [Mass/Vol] 1.70 mg/dL 0.20-1.00 [facility] Comment on above: For patients on eltr ombopag therapy, use of Dimension [place] TBIL is not recommended. Chloride [Moles/Vol] 106 mmol/L 98-107 [facility] Eosinophils/100 WBC (Bld) 2.7 % 0-5 [facility] Glucose [Mass/Vol] 123 mg/dL 74-106 [facility] Comment on above: Fasting Glucose resu lt from 100 to 125 mg/dL suggests IMPAIRED HOMEOSTASIS per A.D.A. criteria. Neutrophils (Bld) [#/Vol] 4.7 10*3/uL 2.0-7.7 [facility] Neutrophils/100 WBC (Bld) 71.6 % 47-70 [facility] Potassium [Moles/Vol] 3.5 mmol/L 3.5-5.1 [facility] Protein [Mass/Vol] 6.6 g/dL 6.4-8.2 [facility] Sodium [Moles/Vol] 141 mmol/L 136-145 [facility] WBC (Bld) [#/Vol] 6.6 10*3/uL 4.4-11.0 [facility] Blood erythrocytes count (nu mber/volume)Ordered By: Bernard Nugent on 01-22-2023 RBC (Bld) [#/Vol] 4.62 10*6/uL 4.6-6.2 [facility] Blood hemoglobin measurement (mass/volume)Ordered By: Bernard Nugent on 01-22-2023 Hemoglobin (Bld) [Mass/Vol] 14.2 g/dL 13.0-16.5 [facility] Blood lymphocytes/100 leukoc ytesOrdered By: Bernard Nugent on 01-22-2023 Lymphocytes/100 WBC (Bld) 15.9 % 19-41 [facility] Blood monocytes/100 leukocyt esOrdered By: Bernard Nugent on 01-22-2023 Monocytes/100 WBC (Bld) 8.7 % 0-10 [facility] Blood platelet mean volumeOr dered By: Bernard Nugent on 01-22-2023 Platelet mean volume (Bld) [Entitic vol] 11.7 fL 6.2-12.0 [facility] Determination of erythrocyte mean corpuscular volume (MCV)Ordered By: Bernard Nugent on 01-22-2023 MCV (RBC) [Entitic vol] 89.8 fL 80-94 [facility] Hematocrit Auto (Bld) [Volum e fraction]Ordered By: Bernard Nugent on 01-22-2023 Hematocrit (Bld) [Volume fraction] 41.5 % 40-54 [facility] Laboratory - Chemistry and C hemistry - challengeOrdered By: Bernard Nugent on 01-22-2023 ALP [Catalytic activity/Vol] 133 U/L 45-117 [facility] ALT [Catalytic activity/Vol] 23 U/L 16-61 [facility] CO2 [Moles/Vol] 28.0 mmol/L 21.0-32.0 [facility] Globulin (S) [Mass/Vol] 3.4 g/dL 2.2-4.2 [facility] Urea nitrogen/Creatinine [Mass ratio] 7.7 mg/mg 10-20 [facility] Laboratory - Hematology and Cell countsOrdered By: Bernard Nugent 01-22-2023 Erythrocyte distribution width (RBC) [Entitic vol] 47.2 fL 35.1-43.9 [facility] Erythrocyte distribution width (RBC) [Ratio] 14.3 % 11.6-14.6 [facility] Immature granulocytes/100 WBC (Bld) 0.500 % 0.0-0.9 [facility] Comment on above: IG% - Immature Granu locytes (promyelocytes, myelocytes and metamyelocytes) > 1% indicates that a LEFT SHIFT is Present. MCH (RBC) [Entitic mass] 30.7 pg 27.0-32.0 [facility] Nucleated RBC/100 WBC (Bld) [Ratio] 0 % 0-5 [facility] MCHC Auto (RBC) [Mass/Vol]Or dered By: Bernard Nugent on 01-22-2023 MCHC (RBC) [Mass/Vol] 34.2 g/dL 32-36 [facility] No Panel InformationOrdered By: Bernard Nugent on 01-22-2023 Estimated GFR (MDRD) Amer 54 mL/min >60 [facility] Comment on above: GFR Calc Estimated GFR (MDRD) Non-Af Amer 45 mL/min >60 [facility] Comment on above: Non- GFR Calc Thyroid Stimulating Hormone (TSH) 1.45 uIU/mL 0.358-3.74 [facility] Vitamin D 25-Hydroxy 45.6 ng/mL [facility] Comment on above: Vitamin D 25(OH) Sta tus Range Deficiency <20 ng/mL (50nmol/L) Insufficiency 20 - 30 ng/mL (50 - 75 nmol/L) Sufficiency 30 - 100 ng/mL (75 - 250 nmol/L) Toxicity >100 ng/mL (>250 nmol/L) Platelets bldOrdered By: Bernard Nugent on 01-22-2023 Platelets (Bld) [#/Vol] 179 10*3/uL 150-450 [facility] Serum or plasma albumin sita urement (mass/volume)Ordered By: Bernard Nugent on 01-22-2023 Albumin [Mass/Vol] 3.2 g/dL 3.2-5.0 [facility] Serum or plasma albumin/glob ulin mass ratioOrdered By: Bernard Nugent on 01-22-2023 Albumin/Globulin [Mass ratio] 0.9 {ratio} 0.9-2.4 [facility] Serum or plasma calcium sita urement (mass/volume)Ordered By: Bernard Nugent on 01-22-2023 Calcium [Mass/Vol] 8.2 mg/dL 8.5-10.1 [facility] Serum or plasma creatinine m easurement (mass/volume)Ordered By: Bernard Nugent on 01-22-2023 Creatinine [Mass/Vol] 1.56 mg/dL 0.70-1.30 [facility] Comment on above: The validity of the calculated GFR & GFRAA in patients over 70 years has not been determined. Clinical correlation is essential. Serum or plasma urea nitroge n measurement (mass/volume)Ordered By: Bernard Nugent on 01-22-2023 Urea nitrogen [Mass/Vol] 12 mg/dL 7-18 [facility] Thin prep Papanicolaou smear with manual screeningOrdered By: Bernard Nugent on 01-22-2023 Thin prep Papanicolaou smear with manual screening 21 U/L 15-37 [facility] Thin prep Papanicolaou smear with manual screening 7 5-15 [facility] Absolute lymphocyte countOrd ered By: Dr. Nugent on 11-06-2022 Lymphocytes Auto (Unsp spec) [#/Vol] 1.35 10*3/uL 0.83-4.51 [facility] Basophil percentageOrdered B y: Dr. Nugent on 11-06-2022 Basophils/100 WBC (Bld) 0.5 % 0-[address] [facility] Bilirubin [Mass/Vol] 1.90 mg/dL 0.20-1.00 [facility] Comment on above: For patients on eltr ombopag therapy, use of Dimension [place] TBIL is not recommended. Chloride [Moles/Vol] 105 mmol/L 98-107 [facility] Eosinophils/100 WBC (Bld) 3.2 % 0-5 [facility] Glucose [Mass/Vol] 152 mg/dL 74-106 [facility] Comment on above: Fasting Glucose resu lt greater than or equal to 126 mg/dL suggests DIABETES MELLITUS per A.D.A. criteria. Neutrophils (Bld) [#/Vol] 5.9 10*3/uL 2.0-7.7 [facility] Neutrophils/100 WBC (Bld) 70.5 % 47-70 [facility] Potassium [Moles/Vol] 3.6 mmol/L 3.5-5.1 [facility] Protein [Mass/Vol] 7.3 g/dL 6.4-8.2 [facility] Sodium [Moles/Vol] 140 mmol/L 136-145 [facility] WBC (Bld) [#/Vol] 8.4 10*3/uL 4.4-11.0 [facility] Blood erythrocytes count (nu mber/volume)Ordered By: Dr. Nugent on 11-06-2022 RBC (Bld) [#/Vol] 5.00 10*6/uL 4.6-6.2 [facility] Blood hemoglobin measurement (mass/volume)Ordered By: Dr. Nugent on 11-06-2022 Hemoglobin (Bld) [Mass/Vol] 15.1 g/dL 13.0-16.5 [facility] Blood lymphocytes/100 leukoc ytesOrdered By: Dr. Nugent on 11-06-2022 Lymphocytes/100 WBC (Bld) 16.1 % 19-41 [facility] Blood monocytes/100 leukocyt esOrdered By: Dr. Nugent on 11-06-2022 Monocytes/100 WBC (Bld) 9.2 % 0-10 [facility] Blood platelet mean volumeOr dered By: Dr. Nugent on 11-06-2022 Platelet mean volume (Bld) [Entitic vol] 11.7 fL 6.2-12.0 [facility] Determination of erythrocyte mean corpuscular volume (MCV)Ordered By: Dr. Nugent on 11-06-2022 MCV (RBC) [Entitic vol] 88.6 fL 80-94 [facility] Hematocrit Auto (Bld) [Volum e fraction]Ordered By: Dr. Nugent on 11-06-2022 Hematocrit (Bld) [Volume fraction] 44.3 % 40-54 [facility] - Chemistry and C hemistry - challengeOrdered By: Dr. Nugent on 11-06-2022 ALP [Catalytic activity/Vol] 151 U/L 45-117 [facility] ALT [Catalytic activity/Vol] 21 U/L 16-61 [facility] CO2 [Moles/Vol] 31.0 mmol/L 21.0-32.0 [facility] Globulin (S) [Mass/Vol] 3.8 g/dL 2.2-4.2 [facility] Urea nitrogen/Creatinine [Mass ratio] 9.7 mg/mg 10-20 [facility] - Hematology and Cell countsOrdered By: Dr. Nugent on 11-06-2022 Erythrocyte distribution width (RBC) [Entitic vol] 45.5 fL 35.1-43.9 [facility] Erythrocyte distribution width (RBC) [Ratio] 14.1 % 11.6-14.6 [facility] Immature granulocytes/100 WBC (Bld) 0.500 % 0.0-0.9 [facility] Comment on above: IG% - Immature Granu locytes (promyelocytes, myelocytes and metamyelocytes) > 1% indicates that a LEFT SHIFT is Present. MCH (RBC) [Entitic mass] 30.2 pg 27.0-32.0 [facility] Nucleated RBC/100 WBC (Bld) [Ratio] 0 % 0-5 [facility] MCHC Auto (RBC) [Mass/Vol]Or dered By: Dr. Nugent on 11-06-2022 MCHC (RBC) [Mass/Vol] 34.1 g/dL 32-36 [facility] No Panel InformationOrdered By: Dr. Nugent on 11-06-2022 Estimated GFR (MDRD) Amer 55 mL/min >60 [facility] Comment on above: GFR Calc Estimated GFR (MDRD) Non-Af Amer 45 mL/min >60 [facility] Comment on above: Non- GFR Calc Thyroid Stimulating Hormone (TSH) 2.03 uIU/mL 0.358-3.74 [facility] Vitamin D 25-Hydroxy 49.2 ng/mL [facility] Comment on above: Vitamin D 25(OH) Sta tus Range Deficiency <20 ng/mL (50nmol/L) Insufficiency 20 - 30 ng/mL (50 - 75 nmol/L) Sufficiency 30 - 100 ng/mL (75 - 250 nmol/L) Toxicity >100 ng/mL (>250 nmol/L) Platelets bldOrdered By: Dr. Nugent on 11-06-2022 Platelets (Bld) [#/Vol] 185 10*3/uL 150-450 [facility] Serum or plasma albumin sita urement (mass/volume)Ordered By: Dr. Nugent on 11-06-2022 Albumin [Mass/Vol] 3.5 g/dL 3.2-5.0 [facility] Serum or plasma albumin/glob ulin mass ratioOrdered By: Dr. Nugent on 11-06-2022 Albumin/Globulin [Mass ratio] 0.9 {ratio} 0.9-2.4 [facility] Serum or plasma calcium sita urement (mass/volume)Ordered By: Dr. Nugent on 11-06-2022 Calcium [Mass/Vol] 8.7 mg/dL 8.5-10.1 [facility] Serum or plasma creatinine m easurement (mass/volume)Ordered By: Dr. Nugent on 11-06-2022 Creatinine [Mass/Vol] 1.55 mg/dL 0.70-1.30 [facility] Comment on above: The validity of the calculated GFR & GFRAA in patients over 70 years has not been determined. Clinical correlation is essential. Serum or plasma urea nitroge n measurement (mass/volume)Ordered By: Dr. Nugent on 11-06-2022 Urea nitrogen [Mass/Vol] 15 mg/dL 7-18 [facility] Thin prep Papanicolaou smear with manual screeningOrdered By: Dr. Nugent on 11-06-2022 Thin prep Papanicolaou smear with manual screening 20 U/L 15-37 [facility] Thin prep Papanicolaou smear with manual screening 4 5-15 [facility] Basophil percentageOrdered B y: Evin Sarmiento on 10-22-2022 Chloride [Moles/Vol] 105 mmol/L 98-107 [facility] Glucose [Mass/Vol] 216 mg/dL 74-106 [facility] Comment on above: Glucose result great er than or equal to 200 mg/dLsuggests DIABETES MELLITUS per A.D.A. criteria. Potassium [Moles/Vol] 3.6 mmol/L 3.5-5.1 [facility] Sodium [Moles/Vol] 138 mmol/L 136-145 [facility] WBC (Bld) [#/Vol] 10.3 10*3/uL 4.4-11.0 [facility] Blood erythrocytes count (nu mber/volume)Ordered By: Evin Sarmiento on 10-22-2022 RBC (Bld) [#/Vol] 4.70 10*6/uL 4.6-6.2 [facility] Blood hemoglobin measurement (mass/volume)Ordered By: Evin Sarmiento on 10-22-2022 Hemoglobin (Bld) [Mass/Vol] 14.2 g/dL 13.0-16.5 [facility] Blood platelet mean volumeOr dered By: Evin Sarmiento on 10-22-2022 Platelet mean volume (Bld) [Entitic vol] 11.3 fL 6.2-12.0 [facility] Determination of erythrocyte mean corpuscular volume (MCV)Ordered By: Evin Sarmiento on 10-22-2022 MCV (RBC) [Entitic vol] 90.0 fL 80-94 [facility] Hematocrit Auto (Bld) [Volum e fraction]Ordered By: Evin Sarmiento on 10-22-2022 Hematocrit (Bld) [Volume fraction] 42.3 % 40-54 [facility] - Chemistry and C hemistry - challengeOrdered By: Evin Sarmiento on 10-22-2022 CO2 [Moles/Vol] 29.0 mmol/L 21.0-32.0 [facility] Natriuretic peptide B (Bld) [Mass/Vol] 298.6 pg/mL 0-100 [facility] Urea nitrogen/Creatinine [Mass ratio] 10.2 mg/mg 10-20 [facility] - Hematology and Cell countsOrdered By: Evin Sarmiento on 10-22-2022 Erythrocyte distribution width (RBC) [Entitic vol] 47.2 fL 35.1-43.9 [facility] Erythrocyte distribution width (RBC) [Ratio] 14.3 % 11.6-14.6 [facility] MCH (RBC) [Entitic mass] 30.2 pg 27.0-32.0 [facility] MCHC Auto (RBC) [Mass/Vol]Or dered By: Evin Sarmiento on 10-22-2022 MCHC (RBC) [Mass/Vol] 33.6 g/dL 32-36 [facility] No Panel InformationOrdered By: Evin Sarmiento on 10-22-2022 Estimated GFR (MDRD) Amer 50 mL/min >60 [facility] Comment on above: GFR Calc Estimated GFR (MDRD) Non-Af Amer 42 mL/min >60 [facility] Comment on above: Non- GFR Calc Platelets bldOrdered By: Ignaico Sarmiento on 10-22-2022 Platelets (Bld) [#/Vol] 186 10*3/uL 150-450 [facility] Serum or plasma calcium sita urement (mass/volume)Ordered By: Evin Sarmiento on 10-22-2022 Calcium [Mass/Vol] 8.2 mg/dL 8.5-10.1 [facility] Serum or plasma creatinine m easurement (mass/volume)Ordered By: Evin Sarmiento on 10-22-2022 Creatinine [Mass/Vol] 1.67 mg/dL 0.70-1.30 [facility] Comment on above: The validity of the calculated GFR & GFRAA in patients over 70 years has not been determined. Clinical correlation is essential. Serum or plasma urea nitroge n measurement (mass/volume)Ordered By: Evin Sarmiento on 10-22-2022 Urea nitrogen [Mass/Vol] 17 mg/dL 7-18 [facility] Thin prep Papanicolaou smear with manual screeningOrdered By: Evin Sarmiento on 10-22-2022 Thin prep Papanicolaou smear with manual screening 4 5-15 [facility] Basophil percentageOrdered B y: Dr. Tobias on 09-24-2022 Chloride [Moles/Vol] 104 mmol/L 98-107 [facility] Glucose [Mass/Vol] 61 mg/dL 74-106 [facility] Potassium [Moles/Vol] 3.0 mmol/L 3.5-5.1 [facility] Sodium [Moles/Vol] 135 mmol/L 136-145 [facility] WBC (Bld) [#/Vol] 12.7 10*3/uL 4.4-11.0 [facility] Blood erythrocytes count (nu mber/volume)Ordered By: Dr. Tobias on 09-24-2022 RBC (Bld) [#/Vol] 4.83 10*6/uL 4.6-6.2 [facility] Blood hemoglobin measurement (mass/volume)Ordered By: Dr. Tobias on 09-24-2022 Hemoglobin (Bld) [Mass/Vol] 14.3 g/dL 13.0-16.5 [facility] Blood platelet mean volumeOr dered By: Dr. Tobias on 09-24-2022 Platelet mean volume (Bld) [Entitic vol] 11.6 fL 6.2-12.0 [facility] Determination of erythrocyte mean corpuscular volume (MCV)Ordered By: Dr. Tobias on 09-24-2022 MCV (RBC) [Entitic vol] 87.4 fL 80-94 [facility] Glucose Glucometer (BldC) [M ass/Vol]Ordered By: Dr. Tobias on 09-24-2022 Glucose [Mass/Vol] 182 mg/dL 74-106 [facility] Comment on above: MANAGEMENT OF PATIEN T CARE PER NURSING PROTOCOL Hematocrit Auto (Bld) [Volum e fraction]Ordered By: Dr. Tobias on 09-24-2022 Hematocrit (Bld) [Volume fraction] 42.2 % 40-54 [facility] - Chemistry and C hemistry - challengeOrdered By: Dr. Tobias on 09-24-2022 CO2 [Moles/Vol] 22.0 mmol/L 21.0-32.0 [facility] Urea nitrogen/Creatinine [Mass ratio] 12.4 mg/mg 10-20 [facility] - Hematology and Cell countsOrdered By: Dr. Tobias on 09-24-2022 Erythrocyte distribution width (RBC) [Entitic vol] 44.3 fL 35.1-43.9 [facility] Erythrocyte distribution width (RBC) [Ratio] 14.0 % 11.6-14.6 [facility] MCH (RBC) [Entitic mass] 29.6 pg 27.0-32.0 [facility] MCHC Auto (RBC) [Mass/Vol]Or dered By: Dr. Tobias on 09-24-2022 MCHC (RBC) [Mass/Vol] 33.9 g/dL 32-36 [facility] No Panel InformationOrdered By: Dr. Tobias on 09-24-2022 Estimated Creatinine Clearance Calc 30.93 ml/min [facility] Estimated GFR (MDRD) Amer 47 mL/min >60 [facility] Comment on above: GFR Calc Estimated GFR (MDRD) Non-Af Amer 39 mL/min >60 [facility] Comment on above: Non- GFR Calc Platelets bldOrdered By: Dr. Tobias on 09-24-2022 Platelets (Bld) [#/Vol] 212 10*3/uL 150-450 [facility] Serum or plasma calcium sita urement (mass/volume)Ordered By: Dr. Tobias on 09-24-2022 Calcium [Mass/Vol] 8.5 mg/dL 8.5-10.1 [facility] Serum or plasma creatinine m easurement (mass/volume)Ordered By: Dr. Tobias on 09-24-2022 Creatinine [Mass/Vol] 1.77 mg/dL 0.70-1.30 [facility] Comment on above: The validity of the calculated GFR & GFRAA in patients over 70 years has not been determined. Clinical correlation is essential. Serum or plasma urea nitroge n measurement (mass/volume)Ordered By: Dr. Tobias on 09-24-2022 Urea nitrogen [Mass/Vol] 22 mg/dL 7-18 [facility] Thin prep Papanicolaou smear with manual screeningOrdered By: Dr. Tobias on 09-24-2022 Thin prep Papanicolaou smear with manual screening 9 5-15 [facility] Basophil percentageOrdered B y: Dr. Tobias on 09-19-2022 Basophil percentage 0-5 SEEN /hpf 0-5 [facility] Bilirubin Test strip Ql (U)O rdered By: Dr. Tobias on 09-19-2022 Bilirubin Ql (U) Negative Negative [facility] Ketones Test strip Ql (U)Ord ered By: Dr. Tobias on 09-19-2022 Ketones Ql (U) Negative Negative [facility] Mucus LM Ql (Urine sed)Order ed By: Dr. Tobias on 09-19-2022 Mucus Ql (Urine sed) 0 SEEN /hpf [facility] Nitrite Test strip Ql (U)Ord ered By: Dr. Tobias on 09-19-2022 Nitrite Ql (U) Negative Negative [facility] Protein Test strip Ql (U)Ord ered By: Dr. Tobias on 09-19-2022 Protein Ql (U) 30 mg/dl Negative [facility] Squamous epithelial cells de tection in urine sediment by light microscopyOrdered By: Dr. Tobias on 09-19-2022 Epithelial cells.squamous LM Ql (Urine sed) 0 SEEN /hpf 0-5 [facility] Urine blood detectionOrdered By: Dr. Tobias on 09-19-2022 RBC Ql (U) 10 /ul Negative [facility] RBC Ql (U) 0-5 SEEN /hpf 0-5 [facility] Urine clarityOrdered By: Dr. Tobias on 09-19-2022 Clarity (U) Sl. Cloudy Clear [facility] Urine color determinationOrd ered By: Dr. Tobias on 09-19-2022 Color (U) Yellow Yellow [facility] Urine glucose detectionOrder ed By: Dr. Tobias on 09-19-2022 Glucose Ql (U) Normal mg/dl Normal [facility] Urine leukocyte esterase det ection by dipstickOrdered By: Dr. Tobias on 09-19-2022 Leukocyte esterase Test strip Ql (U) 25 /ul Negative [facility] Urine pHOrdered By: Dr. Stephani buck on 09-19-2022 pH (U) 6.5 [pH] 5.0 - 8.0 [facility] Urine sediment bacteria coun t by microscopy (number/high power field)Ordered By: Dr. Tobias on 09-19-2022 Bacteria LM.HPF (Urine sed) [#/Area] 0 /[HPF] None Seen [facility] Urine specific gravity measu rementOrdered By: Dr. Tobias on 09-19-2022 Specific gravity (U) [Rel density] 1.010 1.002-1.030 [facility] Urobilinogen Auto test strip Ql (U)Ordered By: Dr. Tobias on 09-19-2022 Urobilinogen Ql (U) Normal mg/dl Normal [facility] Basophil percentageOrdered B y: Dr. Haq on 09-04-2022 Chloride [Moles/Vol] 101 mmol/L 98-107 [facility] Glucose [Mass/Vol] 148 mg/dL 74-106 [facility] Comment on above: Fasting Glucose resu lt greater than or equal to 126 mg/dL suggests DIABETES MELLITUS per A.D.A. criteria. Potassium [Moles/Vol] 3.4 mmol/L 3.5-5.1 [facility] Sodium [Moles/Vol] 135 mmol/L 136-145 [facility] Laboratory - Chemistry and C hemistry - challengeOrdered By: Dr. Haq on 09-04-2022 CO2 [Moles/Vol] 27.0 mmol/L 21.0-32.0 [facility] Urea nitrogen/Creatinine [Mass ratio] 8.4 mg/mg 10-20 [facility] No Panel InformationOrdered By: Dr. Haq on 09-04-2022 Estimated GFR (MDRD) Amer 50 mL/min >60 [facility] Comment on above: GFR Calc Estimated GFR (MDRD) Non-Af Amer 42 mL/min >60 [facility] Comment on above: Non- GFR Calc Serum or plasma calcium sita urement (mass/volume)Ordered By: Dr. Haq on 09-04-2022 Calcium [Mass/Vol] 8.8 mg/dL 8.5-10.1 [facility] Serum or plasma creatinine m easurement (mass/volume)Ordered By: Dr. Haq on 09-04-2022 Creatinine [Mass/Vol] 1.67 mg/dL 0.70-1.30 [facility] Comment on above: The validity of the calculated GFR & GFRAA in patients over 70 years has not been determined. Clinical correlation is essential. Serum or plasma urea nitroge n measurement (mass/volume)Ordered By: Dr. Haq on 09-04-2022 Urea nitrogen [Mass/Vol] 14 mg/dL 12-04 [facility] Thin prep Papanicolaou smear with manual screeningOrdered By: Dr. Haq on 09-04-2022 Thin prep Papanicolaou smear with manual screening 7 5-15 [facility] Absolute lymphocyte countOrd ered By: Dr. Haq on 08-08-2022 Lymphocytes Auto (Unsp spec) [#/Vol] 1.56 10*3/uL 0.83-4.51 [facility] Basophil percentageOrdered B y: Dr. Haq on 08-08-2022 Basophils/100 WBC (Bld) 0.3 % 0-1 [facility] Bilirubin [Mass/Vol] 1.60 mg/dL 0.20-1.00 [facility] Comment on above: For patients on eltr ombopag therapy, use of Dimension [place] TBIL is not recommended. Chloride [Moles/Vol] 97 mmol/L 98-107 [facility] Eosinophils/100 WBC (Bld) 2.1 % 0-5 [facility] Glucose [Mass/Vol] 309 mg/dL 74-106 [facility] Comment on above: Glucose result great er than or equal to 200 mg/dLsuggests DIABETES MELLITUS per A.D.A. criteria. Neutrophils (Bld) [#/Vol] 6.0 10*3/uL 2.0-7.7 [facility] Neutrophils/100 WBC (Bld) 69.0 % 47-70 [facility] Potassium [Moles/Vol] 3.4 mmol/L 3.5-5.1 [facility] Protein [Mass/Vol] 6.9 g/dL 6.4-8.2 [facility] Sodium [Moles/Vol] 134 mmol/L 136-145 [facility] WBC (Bld) [#/Vol] 8.7 10*3/uL 4.4-11.0 [facility] Blood erythrocytes count (nu mber/volume)Ordered By: Dr. Haq on 08-08-2022 RBC (Bld) [#/Vol] 4.59 10*6/uL 4.6-6.2 [facility] Blood hemoglobin measurement (mass/volume)Ordered By: Dr. Haq on 08-08-2022 Hemoglobin (Bld) [Mass/Vol] 13.8 g/dL 13.0-16.5 [facility] Blood lymphocytes/100 leukoc ytesOrdered By: Dr. Haq on 08-08-2022 Lymphocytes/100 WBC (Bld) 17.9 % 19-41 [facility] Blood monocytes/100 leukocyt esOrdered By: Dr. Haq on 08-08-2022 Monocytes/100 WBC (Bld) 10.2 % 0-[address] [facility] Blood platelet mean volumeOr dered By: Dr. Haq on 08-08-2022 Platelet mean volume (Bld) [Entitic vol] 12.6 fL 6.2-12.0 [facility] Determination of erythrocyte mean corpuscular volume (MCV)Ordered By: Dr. Haq on 03-22-2023 MCV (RBC) [Entitic vol] 88.2 fL 80-94 [facility] Hematocrit Auto (Bld) [Volum e fraction]Ordered By: Dr. Haq on 08-08-2022 Hematocrit (Bld) [Volume fraction] 40.5 % 40-54 [facility] - Chemistry and C hemistry - challengeOrdered By: Dr. Haq on 08-08-2022 ALP [Catalytic activity/Vol] 156 U/L 45-117 [facility] ALT [Catalytic activity/Vol] 19 U/L 16-61 [facility] CO2 [Moles/Vol] 31.0 mmol/L 21.0-32.0 [facility] Globulin (S) [Mass/Vol] 3.6 g/dL 2.2-4.2 [facility] Urea nitrogen/Creatinine [Mass ratio] 9.5 mg/mg 10-20 [facility] - Hematology and Cell countsOrdered By: Dr. Haq on 08-08-2022 Erythrocyte distribution width (RBC) [Entitic vol] 43.8 fL 35.1-43.9 [facility] Erythrocyte distribution width (RBC) [Ratio] 13.8 % 11.6-14.6 [facility] Immature granulocytes/100 WBC (Bld) 0.500 % 0.0-0.9 [facility] Comment on above: IG% - Immature Granu locytes (promyelocytes, myelocytes and metamyelocytes) > 1% indicates that a LEFT SHIFT is Present. MCH (RBC) [Entitic mass] 30.1 pg 27.0-32.0 [facility] Nucleated RBC/100 WBC (Bld) [Ratio] 0 % 0-5 [facility] MCHC Auto (RBC) [Mass/Vol]Or dered By: Dr. Haq on 08-08-2022 MCHC (RBC) [Mass/Vol] 34.1 g/dL 32-36 [facility] No Panel InformationOrdered By: Dr. Haq on 08-08-2022 Estimated GFR (MDRD) Amer 50 mL/min >60 [facility] Comment on above: GFR Calc Estimated GFR (MDRD) Non-Af Amer 41 mL/min >60 [facility] Comment on above: Non- GFR Calc Thyroid Stimulating Hormone (TSH) 2.57 uIU/mL 0.358-3.74 [facility] Vitamin D 25-Hydroxy 43.9 ng/mL [facility] Comment on above: Vitamin D 25(OH) Sta tus Range Deficiency <20 ng/mL (50nmol/L) Insufficiency 20 - 30 ng/mL (50 - 75 nmol/L) Sufficiency 30 - 100 ng/mL (75 - 250 nmol/L) Toxicity >100 ng/mL (>250 nmol/L) Platelets bldOrdered By: Dr. Haq on 08-08-2022 Platelets (Bld) [#/Vol] 165 10*3/uL 150-450 [facility] Serum or plasma albumin sita urement (mass/volume)Ordered By: Dr. Haq on 08-08-2022 Albumin [Mass/Vol] 3.3 g/dL 3.2-5.0 [facility] Serum or plasma albumin/glob ulin mass ratioOrdered By: Dr. Haq on 08-08-2022 Albumin/Globulin [Mass ratio] 0.9 {ratio} 0.9-2.4 [facility] Serum or plasma calcium sita urement (mass/volume)Ordered By: Dr. Haq on 08-08-2022 Calcium [Mass/Vol] 8.5 mg/dL 8.5-10.1 [facility] Serum or plasma creatinine m easurement (mass/volume)Ordered By: Dr. Haq on 08-08-2022 Creatinine [Mass/Vol] 1.69 mg/dL 0.70-1.30 [facility] Comment on above: The validity of the calculated GFR & GFRAA in patients over 70 years has not been determined. Clinical correlation is essential. Serum or plasma urea nitroge n measurement (mass/volume)Ordered By: Dr. Haq on 08-08-2022 Urea nitrogen [Mass/Vol] 16 mg/dL 7-18 [facility] Thin prep Papanicolaou smear with manual screeningOrdered By: Dr. Haq on 08-08-2022 Thin prep Papanicolaou smear with manual screening 15 U/L 15-37 [facility] Thin prep Papanicolaou smear with manual screening 6 5-15 [facility] Absolute lymphocyte countOrd ered By: Evin Sarmiento on 07-20-2022 Lymphocytes Auto (Unsp spec) [#/Vol] 1.15 10*3/uL 0.83-4.51 [facility] Basophil percentageOrdered B y: Eivn Sarmiento on 07-20-2022 Basophils/100 WBC (Bld) 0.4 % 0-1 [facility] Chloride [Moles/Vol] 97 mmol/L 98-107 [facility] Eosinophils/100 WBC (Bld) 1.9 % 0-5 [facility] Glucose [Mass/Vol] 197 mg/dL 74-106 [facility] Comment on above: Fasting Glucose resu lt greater than or equal to 126 mg/dL suggests DIABETES MELLITUS per A.D.A. criteria. Neutrophils (Bld) [#/Vol] 6.1 10*3/uL 2.0-7.7 [facility] Neutrophils/100 WBC (Bld) 75.5 % 47-70 [facility] Potassium [Moles/Vol] 3.3 mmol/L 3.5-5.1 [facility] Sodium [Moles/Vol] 137 mmol/L 136-145 [facility] WBC (Bld) [#/Vol] 8.0 10*3/uL 4.4-11.0 [facility] Blood erythrocytes count (nu mber/volume)Ordered By: vEin Sarmiento on 07-20-2022 RBC (Bld) [#/Vol] 5.03 10*6/uL 4.6-6.2 [facility] Blood hemoglobin measurement (mass/volume)Ordered By: Evin Sarmiento on 07-20-2022 Hemoglobin (Bld) [Mass/Vol] 15.0 g/dL 13.0-16.5 [facility] Blood lymphocytes/100 leukoc ytesOrdered By: Evin Sarmiento on 07-20-2022 Lymphocytes/100 WBC (Bld) 14.3 % 19-41 [facility] Blood monocytes/100 leukocyt esOrdered By: Evin Sarmiento on 07-20-2022 Monocytes/100 WBC (Bld) 7.5 % 0-[address] [facility] Blood platelet mean volumeOr dered By: Evin Sarmiento on 07-20-2022 Platelet mean volume (Bld) [Entitic vol] 12.4 fL 6.2-12.0 [facility] Determination of erythrocyte mean corpuscular volume (MCV)Ordered By: Evin Sarmiento on 07-20-2022 MCV (RBC) [Entitic vol] 87.5 fL 80-94 [facility] Hematocrit Auto (Bld) [Volum e fraction]Ordered By: Evin Sarmiento on 07-20-2022 Hematocrit (Bld) [Volume fraction] 44.0 % 40-54 [facility] - Chemistry and C hemistry - challengeOrdered By: Evin Sarmiento on 07-20-2022 CO2 [Moles/Vol] 31.0 mmol/L 21.0-32.0 [facility] Urea nitrogen/Creatinine [Mass ratio] 10.9 mg/mg 10-20 [facility] - Chemistry and C hemistry - challengeOrdered By: Dr. Haq on 07-20-2022 Natriuretic peptide B (Bld) [Mass/Vol] 96.3 pg/mL 0-100 [facility] - Hematology and Cell countsOrdered By: Evin Sarmiento on 07-20-2022 Erythrocyte distribution width (RBC) [Entitic vol] 43.6 fL 35.1-43.9 [facility] Erythrocyte distribution width (RBC) [Ratio] 13.8 % 11.6-14.6 [facility] Immature granulocytes/100 WBC (Bld) 0.400 % 0.0-0.9 [facility] Comment on above: IG% - Immature Granu locytes (promyelocytes, myelocytes and metamyelocytes) > 1% indicates that a LEFT SHIFT is Present. MCH (RBC) [Entitic mass] 29.8 pg 27.0-32.0 [facility] Nucleated RBC/100 WBC (Bld) [Ratio] 0 % 0-5 [facility] MCHC Auto (RBC) [Mass/Vol]Or dered By: Evin Sarmiento on 07-20-2022 MCHC (RBC) [Mass/Vol] 34.1 g/dL 32-36 [facility] No Panel InformationOrdered By: Evin Sarmiento on 07-20-2022 Estimated GFR (MDRD) Amer 54 mL/min >60 [facility] Comment on above: GFR Calc Estimated GFR (MDRD) Non-Af Amer 45 mL/min >60 [facility] Comment on above: Non- GFR Calc No Panel InformationOrdered By: Dr. Haq on 07-20-2022 Parathyroid Hormone (Intact) 110.2 pg/mL 18.4-80.1 [facility] Platelets bldOrdered By: Ignacio Sarmiento on 07-20-2022 Platelets (Bld) [#/Vol] 206 10*3/uL 150-450 [facility] Serum or plasma albumin sita urement (mass/volume)Ordered By: Evin Sarmiento on 07-20-2022 Albumin [Mass/Vol] 3.3 g/dL 3.2-5.0 [facility] Serum or plasma calcium sita urement (mass/volume)Ordered By: Evin Sarmiento on 07-20-2022 Calcium [Mass/Vol] 8.9 mg/dL 8.5-10.1 [facility] Serum or plasma creatinine m easurement (mass/volume)Ordered By: Evin Sarmiento on 07-20-2022 Creatinine [Mass/Vol] 1.56 mg/dL 0.70-1.30 [facility] Comment on above: The validity of the calculated GFR & GFRAA in patients over 70 years has not been determined. Clinical correlation is essential. Serum or plasma urea nitroge n measurement (mass/volume)Ordered By: Evin Sarmiento on 07-20-2022 Urea nitrogen [Mass/Vol] 17 mg/dL 7-18 [facility] Thin prep Papanicolaou smear with manual screeningOrdered By: Evin Sarmiento on 07-20-2022 Thin prep Papanicolaou smear with manual screening 9 5-15 [facility] Basophil percentageon 2021 Chloride [Moles/Vol] 99 mmol/L 98-107 [facility] Work Phone: Glucose [Mass/Vol] 227 mg/dL 74-106 [facility] Work Phone: Comment on above: Glucose result great er than or equal to 200 mg/dLsuggests DIABETES MELLITUS per A.D.A. criteria. Potassium [Moles/Vol] 3.5 mmol/L 3.5-5.1 [facility] Work Phone: Sodium [Moles/Vol] 139 mmol/L 136-145 [facility] Work Phone: Laboratory - Chemistry and C hemistry - challengeon 02-26-2022 CO2 [Moles/Vol] 31.0 mmol/L 21.0-32.0 [facility] Work Phone: Urea nitrogen/Creatinine [Mass ratio] 8.0 mg/mg 10-20 [facility] Work Phone: No Panel Informationon 02-26 Estimated GFR (MDRD) Amer 52 mL/min >60 [facility] Work Phone: Comment on above: GFR Calc Estimated GFR (MDRD) Non-Af Amer 43 mL/min >60 [facility] Work Phone: Comment on above: Non- GFR Calc Serum or plasma calcium sita urement (mass/volume)on 02-26-2022 Calcium [Mass/Vol] 8.7 mg/dL 8.5-10.1 [facility] Work Phone: Serum or plasma creatinine m easurement (mass/volume)on 02-26-2022 Creatinine [Mass/Vol] 1.63 mg/dL 0.70-1.30 [facility] Work Phone: Comment on above: The validity of the calculated GFR & GFRAA in patients over 70 years has not been determined. Clinical correlation is essential. Serum or plasma urea nitroge n measurement (mass/volume)on 02-26-2022 Urea nitrogen [Mass/Vol] 13 mg/dL 7-18 [facility] Work Phone: Thin prep Papanicolaou smear with manual screeningon 02-26-2022 Thin prep Papanicolaou smear with manual screening 9 5-15 [facility] Work Phone: Absolute lymphocyte counton 02-04-2022 Lymphocytes Auto (Unsp spec) [#/Vol] 1.28 10*3/uL 0.83-4.51 [facility] Work Phone: Basophil percentageon 2021 Basophils/100 WBC (Bld) 0.4 % 0-1 [facility] Work Phone: Chloride [Moles/Vol] 103 mmol/L 98-107 [facility] Work Phone: Eosinophils/100 WBC (Bld) 1.2 % 0-5 [facility] Work Phone: Glucose [Mass/Vol] 204 mg/dL 74-106 [facility] Work Phone: Comment on above: Glucose result great er than or equal to 200 mg/dLsuggests DIABETES MELLITUS per A.D.A. criteria. Neutrophils (Bld) [#/Vol] 8.8 10*3/uL 2.0-7.7 [facility] Work Phone: Neutrophils/100 WBC (Bld) 78.6 % 47-70 [facility] Work Phone: Potassium [Moles/Vol] 3.9 mmol/L 3.5-5.1 [facility] Work Phone: [phone] Sodium [Moles/Vol] 138 mmol/L 136-145 [facility] Work Phone: [phone] WBC (Bld) [#/Vol] 11.2 10*3/uL 4.4-11.0 [facility] Work Phone: [phone] Blood erythrocytes count (nu mber/volume)on 02-04-2022 RBC (Bld) [#/Vol] 4.32 10*6/uL 4.6-6.2 [facility] Work Phone: Blood hemoglobin measurement (mass/volume)on 02-04-2022 Hemoglobin (Bld) [Mass/Vol] 13.2 g/dL 13.0-16.5 [facility] Work Phone: Blood lymphocytes/100 leukoc yteson 02-04-2022 Lymphocytes/100 WBC (Bld) 11.4 % 19-41 [facility] Work Phone: Blood monocytes/100 leukocyt eson 02-04-2022 Monocytes/100 WBC (Bld) 8.0 % 0-10 [facility] Work Phone: Blood platelet mean volumeon 02-04-2022 Platelet mean volume (Bld) [Entitic vol] 11.3 fL 6.2-12.0 [facility] Work Phone: Determination of erythrocyte mean corpuscular volume (MCV)on 02-04-2022 MCV (RBC) [Entitic vol] 88.0 fL 80-94 [facility] Work Phone: Hematocrit Auto (Bld) [Volum e fraction]on 02-04-2022 Hematocrit (Bld) [Volume fraction] 38.0 % 40-54 [facility] Work Phone: Laboratory - Chemistry and C hemistry - challengeon 02-04-2022 CO2 [Moles/Vol] 28.0 mmol/L 21.0-32.0 [facility] Work Phone: Natriuretic peptide B (Bld) [Mass/Vol] 256.6 pg/mL 0-100 [facility] Work Phone: Urea nitrogen/Creatinine [Mass ratio] 8.0 mg/mg 10-20 [facility] Work Phone: Laboratory - Hematology and Cell countson 02-04-2022 Erythrocyte distribution width (RBC) [Entitic vol] 43.9 fL 35.1-43.9 [facility] Work Phone: Erythrocyte distribution width (RBC) [Ratio] 13.6 % 11.6-14.6 [facility] Work Phone: Immature granulocytes/100 WBC (Bld) 0.400 % 0.0-0.9 [facility] Work Phone: Comment on above: IG% - Immature Granu locytes (promyelocytes, myelocytes and metamyelocytes) > 1% indicates that a LEFT SHIFT is Present. MCH (RBC) [Entitic mass] 30.6 pg 27.0-32.0 [facility] Work Phone: Nucleated RBC/100 WBC (Bld) [Ratio] 0 % 0-5 [facility] Work Phone: MCHC Auto (RBC) [Mass/Vol]on 02-04-2022 MCHC (RBC) [Mass/Vol] 34.7 g/dL 32-36 [facility] Work Phone: No Panel Informationon 02-04 Estimated Creatinine Clearance Calc 33.80 ml/min [facility] Work Phone: Estimated GFR (MDRD) Amer 52 mL/min >60 [facility] Work Phone: Comment on above: GFR Calc Estimated GFR (MDRD) Non-Af Amer 43 mL/min >60 [facility] Work Phone: Comment on above: Non- GFR Calc Troponin I High Sensitivity 22 pg/mL 3.0-78.0 [facility] Work Phone: Comment on above: Please Note: [place] t Units and Gender Specific Reference Ranges. For more information see Policy Stat Procedure [place] High Sensitivity Troponin (TNIH) and attachments. Platelets bldon 02-04-2022 Platelets (Bld) [#/Vol] 203 10*3/uL 150-450 [facility] Work Phone: Serum or plasma calcium sita urement (mass/volume)on 02-04-2022 Calcium [Mass/Vol] 8.7 mg/dL 8.5-10.1 [facility] Work Phone: Serum or plasma creatinine m easurement (mass/volume)on 02-04-2022 Creatinine [Mass/Vol] 1.62 mg/dL 0.70-1.30 [facility] Work Phone: Comment on above: The validity of the calculated GFR & GFRAA in patients over 70 years has not been determined. Clinical correlation is essential. Serum or plasma urea nitroge n measurement (mass/volume)on 02-04-2022 Urea nitrogen [Mass/Vol] 13 mg/dL - [facility] Work Phone: Thin prep Papanicolaou smear with manual screeningon 02-04-2022 Thin prep Papanicolaou smear with manual screening 7 5-15 [facility] Work Phone: Absolute lymphocyte counton 01-18-2022 Lymphocytes Auto (Unsp spec) [#/Vol] 1.28 10*3/uL 0.83-4.51 [facility] Work Phone: Basophil percentageon 2021 Basophils/100 WBC (Bld) 0.6 % 0-1 [facility] Work Phone: Bilirubin [Mass/Vol] 1.70 mg/dL 0.20-1.00 [facility] Work Phone: Comment on above: For patients on eltr ombopag therapy, use of Dimension [place] TBIL is not recommended. Chloride [Moles/Vol] 98 mmol/L 98-107 [facility] Work Phone: [phone] Eosinophils/100 WBC (Bld) 2.7 % 0-5 [facility] Work Phone: Glucose [Mass/Vol] 193 mg/dL 74-106 [facility] Work Phone: Comment on above: Fasting Glucose resu lt greater than or equal to 126 mg/dL suggests DIABETES MELLITUS per A.D.A. criteria. Neutrophils (Bld) [#/Vol] 6.6 10*3/uL 2.0-7.7 [facility] Work Phone: Neutrophils/100 WBC (Bld) 72.6 % 47-70 [facility] Work Phone: Potassium [Moles/Vol] 3.4 mmol/L 3.5-5.1 [facility] Work Phone: [phone] Protein [Mass/Vol] 6.8 g/dL 6.4-8.2 [facility] Work Phone: Sodium [Moles/Vol] 136 mmol/L 136-145 [facility] Work Phone: WBC (Bld) [#/Vol] 9.0 10*3/uL 4.4-11.0 [facility] Work Phone: Blood erythrocytes count (nu mber/volume)on 01-18-2022 RBC (Bld) [#/Vol] 4.33 10*6/uL 4.6-6.2 [facility] Work Phone: Blood hemoglobin measurement (mass/volume)on 01-18-2022 Hemoglobin (Bld) [Mass/Vol] 12.9 g/dL 13.0-16.5 [facility] Work Phone: Blood lymphocytes/100 leukoc yteson 01-18-2022 Lymphocytes/100 WBC (Bld) 14.2 % 19-41 [facility] Work Phone: Blood monocytes/100 leukocyt eson 01-18-2022 Monocytes/100 WBC (Bld) 9.5 % 0-10 [facility] Work Phone: Blood platelet mean volumeon 01-18-2022 Platelet mean volume (Bld) [Entitic vol] 11.6 fL 6.2-12.0 [facility] Work Phone: Determination of erythrocyte mean corpuscular volume (MCV)on 01-18-2022 MCV (RBC) [Entitic vol] 87.8 fL 80-94 [facility] Work Phone: Hematocrit Auto (Bld) [Volum e fraction]on 01-18-2022 Hematocrit (Bld) [Volume fraction] 38.0 % 40-54 [facility] Work Phone: Laboratory - Chemistry and C hemistry - challengeon 01-18-2022 ALP [Catalytic activity/Vol] 143 U/L 45-117 [facility] Work Phone: ALT [Catalytic activity/Vol] 22 U/L 16-61 [facility] Work Phone: CO2 [Moles/Vol] 31.0 mmol/L 21.0-32.0 [facility] Work Phone: Globulin (S) [Mass/Vol] 3.6 g/dL 2.2-4.2 [facility] Work Phone: Urea nitrogen/Creatinine [Mass ratio] 8.6 mg/mg 10-20 [facility] Work Phone: Laboratory - Hematology and Cell countson 01-18-2022 Erythrocyte distribution width (RBC) [Entitic vol] 42.8 fL 35.1-43.9 [facility] Work Phone: Erythrocyte distribution width (RBC) [Ratio] 13.2 % 11.6-14.6 [facility] Work Phone: Immature granulocytes/100 WBC (Bld) 0.400 % 0.0-0.9 [facility] Work Phone: Comment on above: IG% - Immature Granu locytes (promyelocytes, myelocytes and metamyelocytes) > 1% indicates that a LEFT SHIFT is Present. MCH (RBC) [Entitic mass] 29.8 pg 27.0-32.0 [facility] Work Phone: Nucleated RBC/100 WBC (Bld) [Ratio] 0 % 0-5 [facility] Work Phone: MCHC Auto (RBC) [Mass/Vol]on 01-18-2022 MCHC (RBC) [Mass/Vol] 33.9 g/dL 32-36 [facility] Work Phone: No Panel Informationon 01-18 Estimated GFR (MDRD) Amer 62 mL/min >60 [facility] Work Phone: Comment on above: GFR Calc Estimated GFR (MDRD) Non-Af Amer 52 mL/min >60 [facility] Work Phone: Comment on above: Non- GFR Calc Thyroid Stimulating Hormone (TSH) 2.83 uIU/mL 0.358-3.74 [facility] Work Phone: Vitamin D 25-Hydroxy 43.2 ng/mL [facility] Work Phone: Comment on above: Vitamin D 25(OH) Sta tus Range Deficiency <20 ng/mL (50nmol/L) Insufficiency 20 - 30 ng/mL (50 - 75 nmol/L) Sufficiency 30 - 100 ng/mL (75 - 250 nmol/L) Toxicity >100 ng/mL (>250 nmol/L) Platelets bldon 01-18-2022 Platelets (Bld) [#/Vol] 190 10*3/uL 150-450 [facility] Work Phone: Serum or plasma albumin sita urement (mass/volume)on 01-18-2022 Albumin [Mass/Vol] 3.2 g/dL 3.2-5.0 [facility] Work Phone: Serum or plasma albumin/glob ulin mass ratioon 01-18-2022 Albumin/Globulin [Mass ratio] 0.9 {ratio} 0.9-2.4 [facility] Work Phone: Serum or plasma calcium sita urement (mass/volume)on 01-18-2022 Calcium [Mass/Vol] 8.3 mg/dL 8.5-10.1 [facility] Work Phone: Serum or plasma creatinine m easurement (mass/volume)on 01-18-2022 Creatinine [Mass/Vol] 1.39 mg/dL 0.70-1.30 [facility] Work Phone: Comment on above: The validity of the calculated GFR & GFRAA in patients over 70 years has not been determined. Clinical correlation is essential. Serum or plasma urea nitroge n measurement (mass/volume)on 01-18-2022 Urea nitrogen [Mass/Vol] 12 mg/dL 7-18 [facility] Work Phone: Thin prep Papanicolaou smear with manual screeningon 01-18-2022 Thin prep Papanicolaou smear with manual screening 15 U/L 15-37 [facility] Work Phone: Thin prep Papanicolaou smear with manual screening 7 5-15 [facility] Work Phone: Basophil percentageon 2021 Chloride [Moles/Vol] 101 mmol/L 98-107 [facility] Work Phone: Glucose [Mass/Vol] 137 mg/dL 74-106 [facility] Work Phone: Comment on above: Fasting Glucose resu lt greater than or equal to 126 mg/dL suggests DIABETES MELLITUS per A.D.A. criteria. Potassium [Moles/Vol] 3.7 mmol/L 3.5-5.1 [facility] Work Phone: Sodium [Moles/Vol] 137 mmol/L 136-145 [facility] Work Phone: Laboratory - Chemistry and C hemistry - challengeon 12-27-2021 CO2 [Moles/Vol] 29.0 mmol/L 21.0-32.0 [facility] Work Phone: Magnesium [Mass/Vol] 1.8 mg/dL 1.6-2.6 [facility] Work Phone: Urea nitrogen/Creatinine [Mass ratio] 8.9 mg/mg 10-20 [facility] Work Phone: No Panel Informationon 12-27 Estimated GFR (MDRD) Amer 54 mL/min >60 [facility] Work Phone: Comment on above: GFR Calc Estimated GFR (MDRD) Non-Af Amer 44 mL/min >60 [facility] Work Phone: Comment on above: Non- GFR Calc Serum or plasma calcium sita urement (mass/volume)on 12-27-2021 Calcium [Mass/Vol] 9.1 mg/dL 8.5-10.1 [facility] Work Phone: Serum or plasma creatinine m easurement (mass/volume)on 12-27-2021 Creatinine [Mass/Vol] 1.58 mg/dL 0.70-1.30 [facility] Work Phone: Comment on above: The validity of the calculated GFR & GFRAA in patients over 70 years has not been determined. Clinical correlation is essential. Serum or plasma urea nitroge n measurement (mass/volume)on 12-27-2021 Urea nitrogen [Mass/Vol] 14 mg/dL 7-18 [facility] Work Phone: Thin prep Papanicolaou smear with manual screeningon 12-27-2021 Thin prep Papanicolaou smear with manual screening 7 5-15 [facility] Work Phone: Absolute lymphocyte counton 12-22-2021 Lymphocytes Auto (Unsp spec) [#/Vol] 1.02 10*3/uL 0.83-4.51 [facility] Work Phone: Basophil percentageon 2021 Basophils/100 WBC (Bld) 0.4 % 0-1 [facility] Work Phone: Chloride [Moles/Vol] 98 mmol/L 98-[address] [facility] Work Phone: Cholesterol [Mass/Vol] 85 mg/dL <[address] [facility] Work Phone: Comment on above: <200 mg/dL Desirable 200-240 mg/dL Borderline >240 mg/dL High Risk Eosinophils/100 WBC (Bld) 2.0 % 0-5 [facility] Work Phone: Glucose [Mass/Vol] 130 mg/dL 74-106 [facility] Work Phone: Comment on above: Fasting Glucose resu lt greater than or equal to 126 mg/dL suggests DIABETES MELLITUS per A.D.A. criteria. Neutrophils (Bld) [#/Vol] 5.9 10*3/uL 2.0-7.7 [facility] Work Phone: Neutrophils/100 WBC (Bld) 74.4 % 47-70 [facility] Work Phone: Potassium [Moles/Vol] 3.1 mmol/L 3.5-5.1 [facility] Work Phone: Sodium [Moles/Vol] 134 mmol/L 136-145 [facility] Work Phone: Triglyceride [Mass/Vol] 73 mg/dL <199 [facility] Work Phone: Comment on above: The drugs N-Acetylcy steine and Metamizole may falsely depress this assay.Serum Triglycerides Reference Interval Normal <150 mg/dL Borderline high 150 - 199 mg/dL High 200 - 499 mg/dL Very High > or = 500 mg/dL WBC (Bld) [#/Vol] 7.9 10*3/uL 4.4-11.0 [facility] Work Phone: Blood erythrocytes count (nu mber/volume)on 12-22-2021 RBC (Bld) [#/Vol] 3.60 10*6/uL 4.6-6.2 [facility] Work Phone: Blood hemoglobin measurement (mass/volume)on 12-22-2021 Hemoglobin (Bld) [Mass/Vol] 10.9 g/dL 13.0-16.5 [facility] Work Phone: Blood lymphocytes/100 leukoc yteson 12-22-2021 Lymphocytes/100 WBC (Bld) 13.0 % 19-41 [facility] Work Phone: Blood monocytes/100 leukocyt eson 12-22-2021 Monocytes/100 WBC (Bld) 9.8 % 0-10 [facility] Work Phone: Blood platelet mean volumeon 12-22-2021 Platelet mean volume (Bld) [Entitic vol] 11.8 fL 6.2-12.0 [facility] Work Phone: Determination of erythrocyte mean corpuscular volume (MCV)on 12-22-2021 MCV (RBC) [Entitic vol] 86.7 fL 80-94 [facility] Work Phone: Hematocrit Auto (Bld) [Volum e fraction]on 12-22-2021 Hematocrit (Bld) [Volume fraction] 31.2 % 40-54 [facility] Work Phone: Laboratory - Chemistry and C hemistry - challengeon 12-22-2021 CO2 [Moles/Vol] 28.0 mmol/L 21.0-32.0 [facility] Work Phone: Urea nitrogen/Creatinine [Mass ratio] 7.7 mg/mg 10-20 [facility] Work Phone: Laboratory - Hematology and Cell countson 12-22-2021 Erythrocyte distribution width (RBC) [Entitic vol] 41.1 fL 35.1-43.9 [facility] Work Phone: Erythrocyte distribution width (RBC) [Ratio] 13.0 % 11.6-14.6 [facility] Work Phone: Immature granulocytes/100 WBC (Bld) 0.400 % 0.0-0.9 [facility] Work Phone: Comment on above: IG% - Immature Granu locytes (promyelocytes, myelocytes and metamyelocytes) > 1% indicates that a LEFT SHIFT is Present. MCH (RBC) [Entitic mass] 30.3 pg 27.0-32.0 [facility] Work Phone: Nucleated RBC/100 WBC (Bld) [Ratio] 0 % 0-5 [facility] Work Phone: MCHC Auto (RBC) [Mass/Vol]on 12-22-2021 MCHC (RBC) [Mass/Vol] 34.9 g/dL 32-36 [facility] Work Phone: No Panel Informationon 12-22 Estimated Creatinine Clearance Calc 38.56 ml/min [facility] Work Phone: Estimated GFR (MDRD) Amer 61 mL/min >60 [facility] Work Phone: Comment on above: GFR Calc Estimated GFR (MDRD) Non-Af Amer 50 mL/min >60 [facility] Work Phone: Comment on above: Non- GFR Calc Thyroid Stimulating Hormone (TSH) 3.25 uIU/mL 0.358-3.74 [facility] Work Phone: Platelets bldon 12-22-2021 Platelets (Bld) [#/Vol] 190 10*3/uL 150-450 [facility] Work Phone: Serum or plasma calcium sita urement (mass/volume)on 12-22-2021 Calcium [Mass/Vol] 8.3 mg/dL 8.5-10.1 [facility] Work Phone: Serum or plasma cholesterol in HDL measurement (mass/volume)on 12-22-2021 Cholesterol in HDL [Mass/Vol] 39 mg/dL >40 [facility] Work Phone: Comment on above: The drugs N-Acetylcy steine and Metamizole may falsely depress this assay. Reference Range HDL <40 mg/dL Low HDL Cholesterol HDL >or= 60 mg/dL High HDL Cholesterol Serum or plasma cholesterol in VLDL measurement (mass/volume)on 12-22-2021 Cholesterol in VLDL [Mass/Vol] 15 mg/dL 5-40 [facility] Work Phone: Serum or plasma cortisol osbaldo surement (mass/volume)on 12-22-2021 Cortisol [Mass/Vol] 11.00 ug/dL 3.44-22.45 [facility] Work Phone: Comment on above: Adult (AM) 5.27 - 22 .45 ug/dL Adult (PM) 3.44 - 16.76 ug/dLPlease note revised CORTISOL reference range effective 2019. Serum or plasma creatinine m easurement (mass/volume)on 12-22-2021 Creatinine [Mass/Vol] 1.42 mg/dL 0.70-1.30 [facility] Work Phone: Comment on above: The validity of the calculated GFR & GFRAA in patients over 70 years has not been determined. Clinical correlation is essential. Serum or plasma low density lipoprotein (LDL) cholesterol measurement (mass/volume)on 12-22-2021 Cholesterol in LDL [Mass/Vol] 31 mg/dL 0-130 [facility] Work Phone: Serum or plasma urea nitroge n measurement (mass/volume)on 12-22-2021 Urea nitrogen [Mass/Vol] 11 mg/dL 7-18 [facility] Work Phone: Thin prep Papanicolaou smear with manual screeningon 12-22-2021 Thin prep Papanicolaou smear with manual screening 8 5-15 [facility] Work Phone: Absolute lymphocyte counton 12-21-2021 Lymphocytes Auto (Unsp spec) [#/Vol] 0.91 10*3/uL 0.83-4.51 [facility] Work Phone: Basophil percentageon 2021 Basophil percentage 3.4 mg/dL 2.5-4.9 [facility]: [phone] Basophils/100 WBC (Bld) 0.3 % 0-1 [facility] Work Phone: Chloride [Moles/Vol] 95 mmol/L 98-107 [facility] Work [facility]: Eosinophils/100 WBC (Bld) 0.8 % 0-5 [facility] Work Phone: Glucose [Mass/Vol] 213 mg/dL 74-106 [facility] Work Phone: Comment on above: Glucose result great er than or equal to 200 mg/dLsuggests DIABETES MELLITUS per A.D.A. criteria. Neutrophils (Bld) [#/Vol] 6.9 10*3/uL 2.0-7.7 [facility] Work Phone: [phone] Neutrophils/100 WBC (Bld) 79.9 % 47-70 [facility] Work Phone: [phone] Potassium [Moles/Vol] 3.6 mmol/L 3.5-5.1 [facility] Work Phone: Sodium [Moles/Vol] 132 mmol/L 136-145 [facility] Work Phone: WBC (Bld) [#/Vol] 8.6 10*3/uL 4.4-11.0 [facility] Work Phone: [phone] Blood erythrocytes count (nu mber/volume)on 12-21-2021 RBC (Bld) [#/Vol] 4.17 10*6/uL 4.6-6.2 [facility] Work Phone: [phone] Blood hemoglobin measurement (mass/volume)on 12-21-2021 Hemoglobin (Bld) [Mass/Vol] 12.5 g/dL 13.0-16.5 [facility] Work Phone: Blood lymphocytes/100 leukoc yteson 12-21-2021 Lymphocytes/100 WBC (Bld) 10.6 % 19-41 [facility] Work Phone: Blood monocytes/100 leukocyt eson 12-21-2021 Monocytes/100 WBC (Bld) 7.9 % 0-10 [facility] Work Phone: Blood platelet mean volumeon 12-21-2021 Platelet mean volume (Bld) [Entitic vol] 11.5 fL 6.2-12.0 [facility] Work Phone: Determination of erythrocyte mean corpuscular volume (MCV)on 12-21-2021 MCV (RBC) [Entitic vol] 88.7 fL 80-94 [facility] Work Phone: Hematocrit Auto (Bld) [Volum e fraction]on 12-21-2021 Hematocrit (Bld) [Volume fraction] 37.0 % 40-54 [facility] Work Phone: INR in Blood by Coagulation assayon 12-21-2021 INR Coag (Bld) [Relative time] 1.4 {INR} [facility] Work Phone: Laboratory - Chemistry and C hemistry - challengeon 12-21-2021 Sodium (U) [Moles/Vol] 47 mmol/L Not Establ. [facility] Work Phone: Magnesium [Mass/Vol] 1.4 mg/dL 1.6-2.6 [facility] Work Phone: CO2 [Moles/Vol] 30.0 mmol/L 21.0-32.0 [facility] Work Phone: Natriuretic peptide B (Bld) [Mass/Vol] 334.0 pg/mL 0-100 [facility] Work Phone: Urea nitrogen/Creatinine [Mass ratio] 7.9 mg/mg 10-20 [facility] Work Phone: Laboratory - Coagulationon 0 12-21-2021 PT Coag (PPP) [Time] 16.9 s 11.7-14.9 [facility] Work Phone: Laboratory - Hematology and Cell countson 12-21-2021 Erythrocyte distribution width (RBC) [Entitic vol] 42.4 fL 35.1-43.9 [facility] Work Phone: Erythrocyte distribution width (RBC) [Ratio] 13.0 % 11.6-14.6 [facility] Work Phone: Immature granulocytes/100 WBC (Bld) 0.500 % 0.0-0.9 [facility] Work Phone: Comment on above: IG% - Immature Granu locytes (promyelocytes, myelocytes and metamyelocytes) > 1% indicates that a LEFT SHIFT is Present. MCH (RBC) [Entitic mass] 30.0 pg 27.0-32.0 [facility] Work Phone: Nucleated RBC/100 WBC (Bld) [Ratio] 0 % 0-5 [facility] Work Phone: MCHC Auto (RBC) [Mass/Vol]on 12-21-2021 MCHC (RBC) [Mass/Vol] 33.8 g/dL 32-36 [facility] Work Phone: No Panel Informationon 12-21 Troponin I High Sensitivity 23 pg/mL 3.0-78.0 [facility] Work Phone: Comment on above: Please Note: [place] t Units and Gender Specific Reference Ranges. For more information see Policy Stat Procedure [place] High Sensitivity Troponin (TNIH) and attachments. D-Dimer Quantitative (PE/DVT) 1.02 FEU/ug/m 0.27-0.49 [facility] Work Phone: Comment on above: D-Dimer ELEVATED (>0 .49): Additional studies and clinicalassessments are indicated to conclude diagnosis of:Deep Vein Thrombosis (DVT) or Pulmonary Embolism (PE)RESULTS CALLED TO DEBORAH PEACOCK RN 12/21/21 [email or web address] Shakira Kirkland.REPORT READ BACK BY SAME. Estimated Creatinine Clearance Calc 39.11 ml/min [facility] Work Phone: Estimated GFR (MDRD) Amer 62 mL/min >60 [facility] Work Phone: Comment on above: GFR Calc Estimated GFR (MDRD) Non-Af Amer 51 mL/min >60 [facility] Work Phone: Comment on above: Non- GFR Calc Troponin I High Sensitivity 20 pg/mL 3.0-78.0 [facility] Work Phone: Comment on above: Please Note: [place] t Units and Gender Specific Reference Ranges. For more information see Policy Stat Procedure [place] High Sensitivity Troponin (TNIH) and attachments. Platelets bldon 12-21-2021 Platelets (Bld) [#/Vol] 199 10*3/uL 150-450 [facility] Work Phone: Serum or plasma calcium sita urement (mass/volume)on 12-21-2021 Calcium [Mass/Vol] 8.4 mg/dL 8.5-10.1 [facility] Work Phone: Serum or plasma creatinine m easurement (mass/volume)on 12-21-2021 Creatinine [Mass/Vol] 1.40 mg/dL 0.70-1.30 [facility] Work Phone: Comment on above: The validity of the calculated GFR & GFRAA in patients over 70 years has not been determined. Clinical correlation is essential. Serum or plasma urea nitroge n measurement (mass/volume)on 12-21-2021 Urea nitrogen [Mass/Vol] 11 mg/dL 7-18 [facility] Work Phone: Thin prep Papanicolaou smear with manual screeningon 12-21-2021 Thin prep Papanicolaou smear with manual screening 285 mOsm/KG 280-301 [facility] Work Phone: Thin prep Papanicolaou smear with manual screening 7 5-15 [facility] Work Phone: Urine creatinine measurement (mass/volume)on 12-21-2021 Creatinine (U) [Mass/Vol] 31.30 mg/dL NO RANGE EST. [facility] Work Phone: Urine osmolality measurement on 12-21-2021 Osmolality (U) [Osmolality] 261 mOsm/KG >50 [facility] Work Phone: Comment on above: Normal Urine Referen ce Ranges Random: 50 - 1200 mOsm/kg H20 depending on fluid intake Random: >850 mOsm/kg after 12 hour fluid restriction 24 hour: ~300 - 900 mOsm/kg H2O Absolute lymphocyte counton 12-19-2021 Lymphocytes Auto (Unsp spec) [#/Vol] 0.88 10*3/uL 0.83-4.51 [facility] Work Phone: Basophil percentageon 2021 Basophils/100 WBC (Bld) 0.3 % 0-1 [facility] Work Phone: [phone] Chloride [Moles/Vol] 99 mmol/L 98-107 [facility] Work Phone: Eosinophils/100 WBC (Bld) 2.3 % 0-5 [facility] Work Phone: Glucose [Mass/Vol] 241 mg/dL 74-106 [facility] Work Phone: Comment on above: Glucose result great er than or equal to 200 mg/dLsuggests DIABETES MELLITUS per A.D.A. criteria. Neutrophils (Bld) [#/Vol] 6.1 10*3/uL 2.0-7.7 [facility] Work Phone: Neutrophils/100 WBC (Bld) 77.1 % 47-70 [facility] Work Phone: Potassium [Moles/Vol] 3.3 mmol/L 3.5-5.1 [facility] Work Phone: Sodium [Moles/Vol] 132 mmol/L 136-145 [facility] Work Phone: [phone] WBC (Bld) [#/Vol] 7.9 10*3/uL 4.4-11.0 [facility] Work Phone: Blood erythrocytes count (nu mber/volume)on 12-19-2021 RBC (Bld) [#/Vol] 3.92 10*6/uL 4.6-6.2 [facility]: Blood hemoglobin measurement (mass/volume)on 12-19-2021 Hemoglobin (Bld) [Mass/Vol] 11.9 g/dL 13.0-16.5 [facility] Work Phone: Blood lymphocytes/100 leukoc yteson 12-19-2021 Lymphocytes/100 WBC (Bld) 11.2 % 19-41 [facility] Work Phone: Blood monocytes/100 leukocyt eson 12-19-2021 Monocytes/100 WBC (Bld) 8.6 % 0-10 [facility] Work Phone: Blood platelet mean volumeon 12-19-2021 Platelet mean volume (Bld) [Entitic vol] 10.9 fL 6.2-12.0 [facility] Work Phone: Determination of erythrocyte mean corpuscular volume (MCV)on 12-19-2021 MCV (RBC) [Entitic vol] 87.8 fL 80-94 [facility] Work Phone: Hematocrit Auto (Bld) [Volum e fraction]on 12-19-2021 Hematocrit (Bld) [Volume fraction] 34.4 % 40-54 [facility] Work Phone: Laboratory - Chemistry and C hemistry - challengeon 12-19-2021 CO2 [Moles/Vol] 29.0 mmol/L 21.0-32.0 [facility] Work Phone: Natriuretic peptide B (Bld) [Mass/Vol] 310.7 pg/mL 0-100 [facility] Work Phone: Urea nitrogen/Creatinine [Mass ratio] 7.7 mg/mg 10-20 [facility] Work Phone: Laboratory - Hematology and Cell countson 12-19-2021 Erythrocyte distribution width (RBC) [Entitic vol] 42.5 fL 35.1-43.9 [facility] Work Phone: Erythrocyte distribution width (RBC) [Ratio] 13.2 % 11.6-14.6 [facility] Work Phone: Immature granulocytes/100 WBC (Bld) 0.500 % 0.0-0.9 [facility] Work Phone: Comment on above: IG% - Immature Granu locytes (promyelocytes, myelocytes and metamyelocytes) > 1% indicates that a LEFT SHIFT is Present. MCH (RBC) [Entitic mass] 30.4 pg 27.0-32.0 [facility] Work Phone: Nucleated RBC/100 WBC (Bld) [Ratio] 0 % 0-5 [facility] Work Phone: MCHC Auto (RBC) [Mass/Vol]on 12-19-2021 MCHC (RBC) [Mass/Vol] 34.6 g/dL 32-36 [facility] Work Phone: No Panel Informationon 12-19 Estimated Creatinine Clearance Calc 38.56 ml/min [facility] Work Phone: Estimated GFR (MDRD) Amer 61 mL/min >60 [facility] Work Phone: Comment on above: GFR Calc Estimated GFR (MDRD) Non-Af Amer 50 mL/min >60 [facility] Work Phone: Comment on above: Non- GFR Calc Troponin I High Sensitivity 22 pg/mL 3.0-78.0 [facility] Work Phone: Comment on above: Please Note: [place] t Units and Gender Specific Reference Ranges. For more information see Policy Stat Procedure [place] High Sensitivity Troponin (TNIH) and attachments. Platelets bldon 12-19-2021 Platelets (Bld) [#/Vol] 189 10*3/uL 150-450 [facility] Work Phone: Serum or plasma calcium sita urement (mass/volume)on 12-19-2021 Calcium [Mass/Vol] 8.4 mg/dL 8.5-10.1 [facility] Work Phone: Serum or plasma creatinine m easurement (mass/volume)on 12-19-2021 Creatinine [Mass/Vol] 1.42 mg/dL 0.70-1.30 [facility] Work Phone: Comment on above: The validity of the calculated GFR & GFRAA in patients over 70 years has not been determined. Clinical correlation is essential. Serum or plasma urea nitroge n measurement (mass/volume)on 12-19-2021 Urea nitrogen [Mass/Vol] 11 mg/dL 7-18 [facility] Work Phone: Thin prep Papanicolaou smear with manual screeningon 12-19-2021 Thin prep Papanicolaou smear with manual screening 4 5-15 [facility] Work Phone: Basophil percentageon 2021 Bilirubin [Mass/Vol] 2.10 mg/dL 0.20-1.00 [facility] Work Phone: Comment on above: For patients on eltr ombopag therapy, use of Dimension [place] TBIL is not recommended. Chloride [Moles/Vol] 95 mmol/L 98-107 [facility] Work Phone: Glucose [Mass/Vol] 140 mg/dL 74-106 [facility] Work Phone: Comment on above: Fasting Glucose resu lt greater than or equal to 126 mg/dL suggests DIABETES MELLITUS per A.D.A. criteria. Potassium [Moles/Vol] 3.7 mmol/L 3.5-5.1 [facility] Work Phone: Protein [Mass/Vol] 6.3 g/dL 6.4-8.2 [facility] Work Phone: Sodium [Moles/Vol] 130 mmol/L 136-145 [facility] Work Phone: Laboratory - Chemistry and C hemistry - challengeon 11-02-2021 ALP [Catalytic activity/Vol] 101 U/L 45-117 [facility] Work Phone: ALT [Catalytic activity/Vol] 20 U/L 16-61 [facility] Work Phone: CO2 [Moles/Vol] 29.0 mmol/L 21.0-32.0 [facility] Work Phone: Globulin (S) [Mass/Vol] 3.1 g/dL 2.2-4.2 [facility] Work Phone: Sodium (U) [Moles/Vol] 50 mmol/L Not Establ. [facility] Work Phone: Urea nitrogen/Creatinine [Mass ratio] 6.5 mg/mg 10-20 [facility] Work Phone: No Panel Informationon 11-02 Estimated GFR (MDRD) Amer 63 mL/min >60 [facility] Work Phone: Comment on above: GFR Calc Estimated GFR (MDRD) Non-Af Amer 52 mL/min >60 [facility] Work Phone: Comment on above: Non- GFR Calc Serum or plasma albumin sita urement (mass/volume)on 11-02-2021 Albumin [Mass/Vol] 3.2 g/dL 3.2-5.0 [facility] Work Phone: Serum or plasma albumin/glob ulin mass ratioon 11-02-2021 Albumin/Globulin [Mass ratio] 1.0 {ratio} 0.9-2.4 [facility] Work Phone: Serum or plasma calcium sita urement (mass/volume)on 11-02-2021 Calcium [Mass/Vol] 8.6 mg/dL 8.5-10.1 [facility] Work Phone: Serum or plasma creatinine m easurement (mass/volume)on 11-02-2021 Creatinine [Mass/Vol] 1.38 mg/dL 0.70-1.30 [facility] Work Phone: Comment on above: The validity of the calculated GFR & GFRAA in patients over 70 years has not been determined. Clinical correlation is essential. Serum or plasma urea nitroge n measurement (mass/volume)on 11-02-2021 Urea nitrogen [Mass/Vol] 9 mg/dL 7-18 [facility] Work Phone: Thin prep Papanicolaou smear with manual screeningon 11-02-2021 Thin prep Papanicolaou smear with manual screening 17 U/L 15-37 [facility] Work Phone: Thin prep Papanicolaou smear with manual screening 6 5-15 [facility] Work Phone: Absolute lymphocyte counton 10-26-2021 Lymphocytes Auto (Unsp spec) [#/Vol] 0.94 10*3/uL 0.83-4.51 [facility] Work Phone: Basophil percentageon 2021 Basophil percentage 3.0 mg/dL 2.5-4.9 [facility] Work Phone: Chloride [Moles/Vol] 92 mmol/L 98-107 [facility] Work Phone: Glucose [Mass/Vol] 112 mg/dL 74-106 [facility] Work Phone: Comment on above: Fasting Glucose resu lt from 100 to 125 mg/dL suggests IMPAIRED HOMEOSTASIS per A.D.A. criteria. Potassium [Moles/Vol] 3.5 mmol/L 3.5-5.1 [facility] Work Phone: Sodium [Moles/Vol] 127 mmol/L 136-145 [facility] Work Phone: Basophils/100 WBC (Bld) 0.1 % 0-1 [facility] Work Phone: [phone] Eosinophils/100 WBC (Bld) 0.6 % 0-5 [facility] Work Phone: [phone] Neutrophils (Bld) [#/Vol] 7.8 10*3/uL 2.0-7.7 [facility] Work Phone: Neutrophils/100 WBC (Bld) 80.0 % 47-70 [facility] Work Phone: WBC (Bld) [#/Vol] 9.8 10*3/uL 4.4-11.0 [facility] Work Phone: Blood erythrocytes count (nu mber/volume)on 10-26-2021 RBC (Bld) [#/Vol] 3.45 10*6/uL 4.6-6.2 [facility] Work Phone: Blood hemoglobin measurement (mass/volume)on 10-26-2021 Hemoglobin (Bld) [Mass/Vol] 10.9 g/dL 13.0-16.5 [facility] Work Phone: Blood lymphocytes/100 leukoc yteson 10-26-2021 Lymphocytes/100 WBC (Bld) 9.6 % 19-41 [facility] Work Phone: Blood monocytes/100 leukocyt eson 10-26-2021 Monocytes/100 WBC (Bld) 9.3 % 0-10 [facility] Work Phone: Blood platelet mean volumeon 10-26-2021 Platelet mean volume (Bld) [Entitic vol] 11.0 fL 6.2-12.0 [facility] Work Phone: Determination of erythrocyte mean corpuscular volume (MCV)on 10-26-2021 MCV (RBC) [Entitic vol] 87.0 fL 80-94 [facility] Work Phone: Glucose Glucometer (BldC) [M ass/Vol]on 10-26-2021 Glucose [Mass/Vol] 139 mg/dL 74-106 [facility] Work Phone: Comment on above: MANAGEMENT OF PATIEN T CARE PER NURSING PROTOCOL Hematocrit Auto (Bld) [Volum e fraction]on 10-26-2021 Hematocrit (Bld) [Volume fraction] 30.0 % 40-54 [facility] Work Phone: Laboratory - Chemistry and C hemistry - challengeon 10-26-2021 CO2 [Moles/Vol] 28.0 mmol/L 21.0-32.0 [facility] Work Phone: Urea nitrogen/Creatinine [Mass ratio] 7.5 mg/mg 10-20 [facility] Work Phone: Magnesium [Mass/Vol] 1.3 mg/dL 1.6-2.6 [facility] Work Phone: Laboratory - Hematology and Cell countson 10-26-2021 Erythrocyte distribution width (RBC) [Entitic vol] 38.5 fL 35.1-43.9 [facility] Work Phone: Erythrocyte distribution width (RBC) [Ratio] 11.9 % 11.6-14.6 [facility] Work Phone: Immature granulocytes/100 WBC (Bld) 0.400 % 0.0-0.9 [facility] Work Phone: Comment on above: IG% - Immature Granu locytes (promyelocytes, myelocytes and metamyelocytes) > 1% indicates that a LEFT SHIFT is Present. MCH (RBC) [Entitic mass] 31.6 pg 27.0-32.0 [facility] Work Phone: Nucleated RBC/100 WBC (Bld) [Ratio] 0 % 0-5 [facility] Work Phone: MCHC Auto (RBC) [Mass/Vol]on 10-26-2021 MCHC (RBC) [Mass/Vol] 36.3 g/dL 32-36 [facility] Work Phone: No Panel Informationon 10-26 Estimated Creatinine Clearance Calc 51.65 ml/min [facility] Work Phone: Estimated GFR (MDRD) Amer 85 mL/min >60 [facility] Work Phone: Comment on above: GFR Calc Estimated GFR (MDRD) Non-Af Amer 70 mL/min >60 [facility] Work Phone: Comment on above: Non- GFR Calc Vitamin D 25-Hydroxy 38.0 ng/mL [facility] Work Phone: Comment on above: Vitamin D 25(OH) Sta tus Range Deficiency <20 ng/mL (50nmol/L) Insufficiency 20 - 30 ng/mL (50 - 75 nmol/L) Sufficiency 30 - 100 ng/mL (75 - 250 nmol/L) Toxicity >100 ng/mL (>250 nmol/L) Platelets bldon 10-26-2021 Platelets (Bld) [#/Vol] 204 10*3/uL 150-450 [facility] Work Phone: Serum or plasma calcium sita urement (mass/volume)on 10-26-2021 Calcium [Mass/Vol] 7.7 mg/dL 8.5-10.1 [facility] Work Phone: Serum or plasma cortisol osbaldo surement (mass/volume)on 10-26-2021 Cortisol [Mass/Vol] 10.60 ug/dL 3.44-22.45 [facility] Work Phone: Comment on above: Adult (AM) 5.27 - 22 .45 ug/dL Adult (PM) 3.44 - 16.76 ug/dLPlease note revised CORTISOL reference range effective 2019. Serum or plasma creatinine m easurement (mass/volume)on 10-26-2021 Creatinine [Mass/Vol] 1.06 mg/dL 0.70-1.30 [facility] Work Phone: Comment on above: The validity of the calculated GFR & GFRAA in patients over 70 years has not been determined. Clinical correlation is essential. Serum or plasma urea nitroge n measurement (mass/volume)on 10-26-2021 Urea nitrogen [Mass/Vol] 8 mg/dL 7-18 [facility] Work Phone: Thin prep Papanicolaou smear with manual screeningon 10-26-2021 Thin prep Papanicolaou smear with manual screening 7 5-15 [facility] Work Phone: Whole blood hemoglobin A1c/t otal hemoglobin ratio (mass fraction)on 10-26-2021 HbA1c (Bld) [Mass fraction] 5.9 % 3.8-5.6 [facility] Work Phone: Comment on above: Normal < 5.7 % Predi abetic 5.7 - 6.4 % Diabetic >or= 6.5 % Please note range changes. Absolute lymphocyte counton 10-25-2021 Lymphocytes Auto (Unsp spec) [#/Vol] 0.73 10*3/uL 0.83-4.51 [facility] Work Phone: Basophil percentageon 2021 Basophil percentage 0 SEEN /hpf 0-5 [facility] Work Phone: Basophils/100 WBC (Bld) 0.3 % 0-1 [facility] Work Phone: Bilirubin [Mass/Vol] 1.60 mg/dL 0.20-1.00 [facility] Work Phone: Comment on above: For patients on eltr ombopag therapy, use of Dimension [place] TBIL is not recommended. Chloride [Moles/Vol] 86 mmol/L 98-107 [facility] Work Phone: Eosinophils/100 WBC (Bld) 0.7 % 0-5 [facility] Work Phone: Glucose [Mass/Vol] 214 mg/dL 74-106 [facility] Work Phone: Comment on above: Glucose result great er than or equal to 200 mg/dLsuggests DIABETES MELLITUS per A.D.A. criteria. Neutrophils (Bld) [#/Vol] 7.3 10*3/uL 2.0-7.7 [facility] Work Phone: Neutrophils/100 WBC (Bld) 80.3 % 47-70 [facility] Work Phone: Potassium [Moles/Vol] 3.1 mmol/L 3.5-5.1 [facility] Work Phone: Protein [Mass/Vol] 6.5 g/dL 6.4-8.2 [facility] Work Phone: Sodium [Moles/Vol] 124 mmol/L 136-145 [facility] Work Phone: WBC (Bld) [#/Vol] 9.1 10*3/uL 4.4-11.0 [facility] Work Phone: Bilirubin Test strip Ql (U)o n 10-25-2021 Bilirubin Ql (U) Negative Negative [facility] Work Phone: Blood erythrocytes count (nu mber/volume)on 10-25-2021 RBC (Bld) [#/Vol] 3.79 10*6/uL 4.6-6.2 [facility] Work Phone: Blood hemoglobin measurement (mass/volume)on 10-25-2021 Hemoglobin (Bld) [Mass/Vol] 11.9 g/dL 13.0-16.5 [facility] Work Phone: Blood lymphocytes/100 leukoc yteson 10-25-2021 Lymphocytes/100 WBC (Bld) 8.0 % 19-41 [facility] Work Phone: Blood monocytes/100 leukocyt eson 10-25-2021 Monocytes/100 WBC (Bld) 10.1 % 0-10 [facility] Work Phone: Blood platelet mean volumeon 10-25-2021 Platelet mean volume (Bld) [Entitic vol] 10.6 fL 6.2-12.0 [facility] Work Phone: Determination of erythrocyte mean corpuscular volume (MCV)on 10-25-2021 MCV (RBC) [Entitic vol] 87.9 fL 80-94 [facility] Work Phone: Hematocrit Auto (Bld) [Volum e fraction]on 10-25-2021 Hematocrit (Bld) [Volume fraction] 33.3 % 40-54 [facility] Work Phone: Ketones Test strip Ql (U)on 10-25-2021 Ketones Ql (U) Negative Negative [facility] Work Phone: Laboratory - Chemistry and C hemistry - challengeon 10-25-2021 Sodium (U) [Moles/Vol] 52 mmol/L Not Establ. [facility] Work Phone: ALP [Catalytic activity/Vol] 103 U/L 45-117 [facility] Work Phone: ALT [Catalytic activity/Vol] 18 U/L 16-61 [facility] Work Phone: CO2 [Moles/Vol] 29.0 mmol/L 21.0-32.0 [facility] Work Phone: Globulin (S) [Mass/Vol] 3.3 g/dL 2.2-4.2 [facility] Work Phone: Urea nitrogen/Creatinine [Mass ratio] 7.2 mg/mg 10-20 [facility] Work Phone: Laboratory - Hematology and Cell countson 10-25-2021 Erythrocyte distribution width (RBC) [Entitic vol] 39.2 fL 35.1-43.9 [facility] Work Phone: Erythrocyte distribution width (RBC) [Ratio] 12.1 % 11.6-14.6 [facility] Work Phone: Immature granulocytes/100 WBC (Bld) 0.600 % 0.0-0.9 [facility] Work Phone: Comment on above: IG% - Immature Granu locytes (promyelocytes, myelocytes and metamyelocytes) > 1% indicates that a LEFT SHIFT is Present. MCH (RBC) [Entitic mass] 31.4 pg 27.0-32.0 [facility] Work Phone: Nucleated RBC/100 WBC (Bld) [Ratio] 0 % 0-5 [facility] Work Phone: MCHC Auto (RBC) [Mass/Vol]on 10-25-2021 MCHC (RBC) [Mass/Vol] 35.7 g/dL 32-36 [facility] Work Phone: Mucus LM Ql (Urine sed)on Mucus Ql (Urine sed) 0 SEEN /hpf [facility] Work Phone: Nitrite Test strip Ql (U)on 10-25-2021 Nitrite Ql (U) Negative Negative [facility] Work Phone: No Panel Informationon 10-25 Ethyl Alcohol Level 6.0 mg/dL [facility] Work Phone: Comment on above: The serum:whole bloo d ethanol ratio is approximately 1.14and varies slightly with hematocrit. Medical Alcohol reference interval and critical value innon-tolerant individuals; 50 - 100 Impairment 100 Intoxication 100 - 250 Severe Poisoning 250 - 400 Deep/possible fatal coma Estimated Creatinine Clearance Calc 38.42 ml/min [facility] Work Phone: Estimated GFR (MDRD) Amer 63 mL/min >60 [facility] Work Phone: Comment on above: GFR Calc Estimated GFR (MDRD) Non-Af Amer 52 mL/min >60 [facility] Work Phone: Comment on above: Non- GFR Calc Troponin I High Sensitivity 12 pg/mL 3.0-78.0 [facility] Work Phone: Comment on above: Please Note: [place] t Units and Gender Specific Reference Ranges. For more information see Policy Stat Procedure [place] High Sensitivity Troponin (TNIH) and attachments. Platelets bldon 10-25-2021 Platelets (Bld) [#/Vol] 221 10*3/uL 150-450 [facility] Work Phone: Protein Test strip Ql (U)on 10-25-2021 Protein Ql (U) Negative Negative [facility] Work Phone: Serum or plasma albumin sita urement (mass/volume)on 10-25-2021 Albumin [Mass/Vol] 3.2 g/dL 3.2-5.0 [facility] Work Phone: Serum or plasma albumin/glob ulin mass ratioon 10-25-2021 Albumin/Globulin [Mass ratio] 1.0 {ratio} 0.9-2.4 [facility] Work Phone: Serum or plasma calcium sita urement (mass/volume)on 10-25-2021 Calcium [Mass/Vol] 7.9 mg/dL 8.5-10.1 [facility] Work Phone: Serum or plasma creatinine m easurement (mass/volume)on 10-25-2021 Creatinine [Mass/Vol] 1.38 mg/dL 0.70-1.30 [facility] Work Phone: Comment on above: The validity of the calculated GFR & GFRAA in patients over 70 years has not been determined. Clinical correlation is essential. Serum or plasma urea nitroge n measurement (mass/volume)on 10-25-2021 Urea nitrogen [Mass/Vol] 10 mg/dL 7-18 [facility] Work Phone: Serum or plasma uric acid me asurement (mass/volume)on 10-25-2021 Urate [Mass/Vol] 5.8 mg/dL 3.5-7.2 [facility] Work Phone: Comment on above: The drugs N-Acetylcy steine and Metamizole may falsely depress this assay. Squamous epithelial cells de tection in urine sediment by light microscopyon 10-25-2021 Epithelial cells.squamous LM Ql (Urine sed) 0 SEEN /hpf 0-5 [facility] Work Phone: Thin prep Papanicolaou smear with manual screeningon 10-25-2021 Thin prep Papanicolaou smear with manual screening 260 mOsm/KG 280-301 [facility] Work Phone: Thin prep Papanicolaou smear with manual screening 14 U/L 15-37 [facility] Work Phone: Thin prep Papanicolaou smear with manual screening 9 5-15 [facility] Work Phone: Urine blood detectionon RBC Ql (U) Negative Negative [facility] Work Phone: RBC Ql (U) 0 SEEN /hpf 0-5 [facility] Work Phone: Urine clarityon 10-25-2021 Clarity (U) Clear Clear [facility] Work Phone: Urine color determinationon 10-25-2021 Color (U) Yellow Yellow [facility] Work Phone: Urine glucose detectionon Glucose Ql (U) Normal mg/dl Normal [facility] Work Phone: Urine leukocyte esterase det ection by dipstickon 10-25-2021 Leukocyte esterase Test strip Ql (U) Negative Negative [facility] Work Phone: Urine osmolality measurement on 10-25-2021 Osmolality (U) [Osmolality] 314 mOsm/KG >50 [facility] Work Phone: Comment on above: Normal Urine Referen ce Ranges Random: 50 - 1200 mOsm/kg H20 depending on fluid intake Random: >850 mOsm/kg after 12 hour fluid restriction 24 hour: ~300 - 900 mOsm/kg H2O Urine pHon 10-25-2021 pH (U) 7.0 [pH] 5.0 - 8.0 [facility] Work Phone: Urine sediment bacteria coun t by microscopy (number/high power field)on 10-25-2021 Bacteria LM.HPF (Urine sed) [#/Area] 0 /[HPF] None Seen [facility] Work Phone: Urine specific gravity measu rementon 10-25-2021 Specific gravity (U) [Rel density] 1.010 1.002-1.030 [facility] Work Phone: Urobilinogen Auto test strip Ql (U)on 10-25-2021 Urobilinogen Ql (U) Normal mg/dl Normal [facility] Work Phone: Absolute lymphocyte counton 10-18-2021 Lymphocytes Auto (Unsp spec) [#/Vol] 0.65 10*3/uL 0.83-4.51 [facility] Work Phone: Basophil percentageon 2021 Basophil percentage 3.0 mg/dL 2.5-4.9 [facility] Work Phone: Basophils/100 WBC (Bld) 0.3 % 0-1 [facility] Work Phone: Bilirubin [Mass/Vol] 2.10 mg/dL 0.20-1.00 [facility]: Comment on above: For patients on eltr ombopag therapy, use of Dimension [place] TBIL is not recommended. Chloride [Moles/Vol] 89 mmol/L 98-107 [facility] Work Phone: Eosinophils/100 WBC (Bld) 0.5 % 0-5 [facility] Work Phone: Glucose [Mass/Vol] 131 mg/dL 74-106 [facility] Work Phone: Comment on above: Fasting Glucose resu lt greater than or equal to 126 mg/dL suggests DIABETES MELLITUS per A.D.A. criteria. Neutrophils (Bld) [#/Vol] 5.0 10*3/uL 2.0-7.7 [facility] Work Phone: Neutrophils/100 WBC (Bld) 77.1 % 47-70 [facility] Work Phone: Potassium [Moles/Vol] 3.7 mmol/L 3.5-5.1 [facility] Work Phone: Protein [Mass/Vol] 5.9 g/dL 6.4-8.2 [facility] Work Phone: Sodium [Moles/Vol] 123 mmol/L 136-145 [facility] Work Phone: WBC (Bld) [#/Vol] 6.4 10*3/uL 4.4-11.0 [facility] Work Phone: Blood erythrocytes count (nu mber/volume)on 10-18-2021 RBC (Bld) [#/Vol] 3.61 10*6/uL 4.6-6.2 [facility] Work Phone: [phone] Blood hemoglobin measurement (mass/volume)on 10-18-2021 Hemoglobin (Bld) [Mass/Vol] 11.3 g/dL 13.0-16.5 [facility] Work Phone: Blood lymphocytes/100 leukoc yteson 10-18-2021 Lymphocytes/100 WBC (Bld) 10.1 % 19-41 [facility] Work Phone: Blood monocytes/100 leukocyt eson 10-18-2021 Monocytes/100 WBC (Bld) 11.5 % 0-10 [facility] Work Phone: Blood platelet mean volumeon 10-18-2021 Platelet mean volume (Bld) [Entitic vol] 11.0 fL 6.2-12.0 [facility] Work Phone: Determination of erythrocyte mean corpuscular volume (MCV)on 10-18-2021 MCV (RBC) [Entitic vol] 88.1 fL 80-94 [facility] Work Phone: Hematocrit Auto (Bld) [Volum e fraction]on 10-18-2021 Hematocrit (Bld) [Volume fraction] 31.8 % 40-54 [facility] Work Phone: Laboratory - Chemistry and C hemistry - challengeon 10-18-2021 ALP [Catalytic activity/Vol] 94 U/L 45-117 [facility] Work Phone: ALT [Catalytic activity/Vol] 18 U/L 16-61 [facility] Work Phone: CO2 [Moles/Vol] 27.0 mmol/L 21.0-32.0 [facility] Work Phone: Globulin (S) [Mass/Vol] 3.0 g/dL 2.2-4.2 [facility] Work Phone: Natriuretic peptide B (Bld) [Mass/Vol] 304.2 pg/mL 0-100 [facility] Work Phone: Urea nitrogen/Creatinine [Mass ratio] 6.8 mg/mg 10-20 [facility] Work Phone: Laboratory - Hematology and Cell countson 10-18-2021 Erythrocyte distribution width (RBC) [Entitic vol] 40.5 fL 35.1-43.9 [facility] Work Phone: Erythrocyte distribution width (RBC) [Ratio] 12.4 % 11.6-14.6 [facility] Work Phone: Immature granulocytes/100 WBC (Bld) 0.500 % 0.0-0.9 [facility] Work Phone: Comment on above: IG% - Immature Granu locytes (promyelocytes, myelocytes and metamyelocytes) > 1% indicates that a LEFT SHIFT is Present. MCH (RBC) [Entitic mass] 31.3 pg 27.0-32.0 [facility] Work Phone: Nucleated RBC/100 WBC (Bld) [Ratio] 0 % 0-5 [facility] Work Phone: MCHC Auto (RBC) [Mass/Vol]on 10-18-2021 MCHC (RBC) [Mass/Vol] 35.5 g/dL 32-36 [facility] Work Phone: No Panel Informationon 10-18 Estimated GFR (MDRD) Amer 76 mL/min >60 [facility] Work Phone: Comment on above: GFR Calc Estimated GFR (MDRD) Non-Af Amer 63 mL/min >60 [facility] Work Phone: Comment on above: Non- GFR Calc Platelets bldon 10-18-2021 Platelets (Bld) [#/Vol] 184 10*3/uL 150-450 [facility] Work Phone: Serum or plasma albumin sita urement (mass/volume)on 10-18-2021 Albumin [Mass/Vol] 2.9 g/dL 3.2-5.0 [facility] Work Phone: Serum or plasma albumin/glob ulin mass ratioon 10-18-2021 Albumin/Globulin [Mass ratio] 1.0 {ratio} 0.9-2.4 [facility] Work Phone: Serum or plasma calcium sita urement (mass/volume)on 10-18-2021 Calcium [Mass/Vol] 8.1 mg/dL 8.5-10.1 [facility] Work Phone: Serum or plasma creatinine m easurement (mass/volume)on 10-18-2021 Creatinine [Mass/Vol] 1.17 mg/dL 0.70-1.30 [facility] Work Phone: Comment on above: The validity of the calculated GFR & GFRAA in patients over 70 years has not been determined. Clinical correlation is essential. Serum or plasma urea nitroge n measurement (mass/volume)on 10-18-2021 Urea nitrogen [Mass/Vol] 8 mg/dL 7-18 [facility] Work Phone: Thin prep Papanicolaou smear with manual screeningon 10-18-2021 Thin prep Papanicolaou smear with manual screening 16 U/L 15-37 [facility] Work Phone: Thin prep Papanicolaou smear with manual screening 7 5-15 [facility] Work Phone: Absolute lymphocyte counton 07-13-2021 Lymphocytes Auto (Unsp spec) [#/Vol] 1.15 10*3/uL 0.83-4.51 [facility] Work Phone: Basophil percentageon 2021 Basophils/100 WBC (Bld) 0.5 % 0-1 [facility] Work Phone: Bilirubin [Mass/Vol] 1.80 mg/dL 0.20-1.00 [facility] Work Phone: Comment on above: For patients on eltr ombopag therapy, use of Dimension [place] TBIL is not recommended. Chloride [Moles/Vol] 99 mmol/L 98-107 [facility] Work Phone: Eosinophils/100 WBC (Bld) 2.0 % 0-5 [facility] Work Phone: Glucose [Mass/Vol] 108 mg/dL 74-106 [facility] Work Phone: Comment on above: Fasting Glucose resu lt from 100 to 125 mg/dL suggests IMPAIRED HOMEOSTASIS per A.D.A. criteria. Neutrophils (Bld) [#/Vol] 5.9 10*3/uL 2.0-7.7 [facility] Work Phone: Neutrophils/100 WBC (Bld) 73.4 % 47-70 [facility] Work Phone: Potassium [Moles/Vol] 3.4 mmol/L 3.5-5.1 [facility] Work Phone: Protein [Mass/Vol] 6.2 g/dL 6.4-8.2 [facility] Work Phone: Sodium [Moles/Vol] 134 mmol/L 136-145 [facility] Work Phone: WBC (Bld) [#/Vol] 8.1 10*3/uL 4.4-11.0 [facility] Work Phone: Blood erythrocytes count (nu mber/volume)on 07-13-2021 RBC (Bld) [#/Vol] 4.12 10*6/uL 4.6-6.2 [facility]: Blood hemoglobin measurement (mass/volume)on 07-13-2021 Hemoglobin (Bld) [Mass/Vol] 13.5 g/dL 13.0-16.5 [facility] Work Phone: Blood lymphocytes/100 leukoc yteson 07-13-2021 Lymphocytes/100 WBC (Bld) 14.2 % 19-41 [facility] Work Phone: Blood monocytes/100 leukocyt eson 07-13-2021 Monocytes/100 WBC (Bld) 8.9 % 0-10 [facility] Work Phone: Blood platelet mean volumeon 07-13-2021 Platelet mean volume (Bld) [Entitic vol] 11.5 fL 6.2-12.0 [facility] Work Phone: [phone] Determination of erythrocyte mean corpuscular volume (MCV)on 07-13-2021 MCV (RBC) [Entitic vol] 90.3 fL 80-94 [facility] Work Phone: Hematocrit Auto (Bld) [Volum e fraction]on 07-13-2021 Hematocrit (Bld) [Volume fraction] 37.2 % 40-54 [facility] Work Phone: Laboratory - Chemistry and C hemistry - challengeon 07-13-2021 ALP [Catalytic activity/Vol] 111 U/L 45-117 [facility] Work Phone: ALT [Catalytic activity/Vol] 19 U/L 16-61 [facility] Work Phone: CO2 [Moles/Vol] 28.0 mmol/L 21.0-32.0 [facility] Work Phone: Globulin (S) [Mass/Vol] 3.2 g/dL 2.2-4.2 [facility] Work Phone: Urea nitrogen/Creatinine [Mass ratio] 5.3 mg/mg 10-20 [facility] Work Phone: Laboratory - Hematology and Cell countson 07-13-2021 Erythrocyte distribution width (RBC) [Entitic vol] 42.7 fL 35.1-43.9 [facility] Work Phone: Erythrocyte distribution width (RBC) [Ratio] 13.1 % 11.6-14.6 [facility] Work Phone: Immature granulocytes/100 WBC (Bld) 1.000 % 0.0-0.9 [facility] Work Phone: Comment on above: IG% - Immature Granu locytes (promyelocytes, myelocytes and metamyelocytes) > 1% indicates that a LEFT SHIFT is Present. MCH (RBC) [Entitic mass] 32.8 pg 27.0-32.0 [facility] Work Phone: Nucleated RBC/100 WBC (Bld) [Ratio] 0 % 0-5 [facility] Work Phone: MCHC Auto (RBC) [Mass/Vol]on 07-13-2021 MCHC (RBC) [Mass/Vol] 36.3 g/dL 32-36 [facility] Work Phone: No Panel Informationon 07-13 Estimated GFR (MDRD) Amer 67 mL/min >60 [facility] Work Phone: Comment on above: GFR Calc Estimated GFR (MDRD) Non-Af Amer 55 mL/min >60 [facility] Work Phone: Comment on above: Non- GFR Calc Thyroid Stimulating Hormone (TSH) 3.19 uIU/mL 0.358-3.74 [facility] Work Phone: Vitamin D 25-Hydroxy 13.3 ng/mL [facility] Work Phone: Comment on above: Vitamin D 25(OH) Sta tus Range Deficiency <20 ng/mL (50nmol/L) Insufficiency 20 - 30 ng/mL (50 - 75 nmol/L) Sufficiency 30 - 100 ng/mL (75 - 250 nmol/L) Toxicity >100 ng/mL (>250 nmol/L) Platelets bldon 07-13-2021 Platelets (Bld) [#/Vol] 216 10*3/uL 150-450 [facility] Work Phone: Serum or plasma albumin sita urement (mass/volume)on 07-13-2021 Albumin [Mass/Vol] 3.0 g/dL 3.2-5.0 [facility] Work Phone: Serum or plasma albumin/glob ulin mass ratioon 07-13-2021 Albumin/Globulin [Mass ratio] 0.9 {ratio} 0.9-2.4 [facility] Work Phone: Serum or plasma calcium sita urement (mass/volume)on 07-13-2021 Calcium [Mass/Vol] 8.2 mg/dL 8.5-10.1 [facility] Work Phone: Serum or plasma creatinine m easurement (mass/volume)on 07-13-2021 Creatinine [Mass/Vol] 1.31 mg/dL 0.70-1.30 [facility] Work Phone: Comment on above: The validity of the calculated GFR & GFRAA in patients over 70 years has not been determined. Clinical correlation is essential. Serum or plasma urea nitroge n measurement (mass/volume)on 07-13-2021 Urea nitrogen [Mass/Vol] 7 mg/dL 7-18 [facility] Work Phone: Thin prep Papanicolaou smear with manual screeningon 07-13-2021 Thin prep Papanicolaou smear with manual screening 18 U/L 15-37 [facility] Work Phone: Thin prep Papanicolaou smear with manual screening 7 5-15 [facility] Work Phone: CNOVon 05-16-2018 CNOV Office Visit (UCWSTR) [facility] PERE[facility][id number]) [facility] Rjilsjaobq48/28/18 12:[address] [facility] During your visit today, we recorded the following information about you: Temperature Pulse Respiration Blood pressure 98.5 degrees 66/minute 16/minute 118/68 Weight 97.6 kgAnt Sandoval MD 05/16/2018 12:59 PM SignedPatient presents with:Shingles: [...] vesicles with erythema surrounding in a left ~Z25iwpilvyxgern.ASSES SMENT/PLAN:1. Herpes zoster without complications - ICD9: [...] PCP if further pain control is needed.Ant Sandoval, MDReferring Provider: SELF [200]Allergies As of Date: [...] distention [R14.0] INVALID FOR* Status:Closed by ANT SANDOVAL MD on 05/16/18 Normal [facility] PROGRESSon 05-16-2018 Protein mass conc HNO ID: [id number]: Ant Hernandezervice: (none)Author Type: PhysicianType: Progress NotesFiled: [...] vesicles with erythema surrounding in a left ~Y25ktodqgpzmakn.ASSES SMENT/PLAN:1. Herpes zoster without complications - ICD9: [...] PCP if further pain control is needed.Ant Sandoval MD [facility] Office Visiton 01-15-2017 Documentation of current medications (procedure) Done Invalid Interpretation Code [facility] Work Phone: Fall risk assessment No Invalid Interpretation Code [facility] Work Phone: Protein mass conc Done [facility] Work Phone: Office Visiton 05-25-2016 Dietary management education, guidance, and counseling (procedure) yes Invalid Interpretation Code [facility] Work Phone: Documentation of current medications (procedure) Done Invalid Interpretation Code [facility] Work Phone: [phone] Clinical 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 Left ventricular Ejection fraction 50 % Invalid Interpretation Code [facility] Work Phone: [phone] Lab Report: Vitamin D,25 Hyd roxyon 06-24-2015 vitamin D 25-hydroxy, serum 14.8 ng/mL Invalid Interpretation Code [facility] Work Phone: [phone] Vitamin D 25-OH 14.8 ng/mL [facility] Work Phone: [phone] Lab Report: CBC W/Diff, Auto matedon 06-23-2015 Basophils/100 leukocytes 0.2 % Invalid Interpretation Code 0-1 [facility] Work Phone: [phone] Basophils/100 WBC (Bld) 0.2 % 0-1 [facility] Work Phone: [phone] Eosinophils/100 leukocytes 0.6 % Invalid Interpretation Code 0-5 [facility] Work Phone: [phone] Eosinophils/100 WBC (Bld) 0.6 % 0-5 [facility] Work Phone: [phone] Erythrocyte distribution width Ratio (RBC) 41.6 fL 35.1-43.9 [facility] Work Phone: [phone] Erythrocyte distribution width Ratio (RBC) 13.6 % 11.6-14.6 [facility] Work Phone: [phone] Erythrocytes (RBC) 4.69 10*6/uL Invalid Interpretation Code 4.6-6.2 [facility] Work Phone: [phone] Hematocrit (HCT) 39.5 % Low 40-54 [facility] Work Phone: [phone] Hematocrit Volume Fraction (Bld) 39.5 % Low 40-54 [facility] Work Phone: [phone] Hemoglobin (HGB) 13.4 g/dL Invalid Interpretation Code 13.0-16.5 [facility] Work Phone: [phone] Immature granulocytes #/vol (Bld) 0.300 % 0.0-0.9 [facility] Work Phone: [phone] immature granulocytes, percentage of total cells, blood 0.300 % Invalid Interpretation Code 0.0-0.9 [facility] Work Phone: [phone] Lymphocytes 0.84 X10 3/UL Invalid Interpretation Code 0.83-4.51 [facility] Work Phone: Lymphocytes #/vol (Bld) 0.84 X10 3/UL 0.83-4.51 [facility] Work Phone: [phone] Lymphocytes/100 leukocytes 8.8 % Low 19-41 [facility] Work Phone: Lymphocytes/100 WBC (Bld) 8.8 % Low 19-41 [facility] Work Phone: [phone] MCH 28.6 pg Invalid Interpretation Code 27.0-32.0 [facility] Work Phone: [phone] MCH Entitic mass (RBC) 28.6 pg 27.0-32.0 [facility] Work Phone: [phone] MCHC 33.9 G/GL Invalid Interpretation Code 32-36 [facility] Work Phone: [phone] MCHC mass conc (RBC) 33.9 G/GL 32-[address] [facility] Work Phone: [phone] MCV 84.2 fL Invalid Interpretation Code 80-94 [facility] Work Phone: [phone] MCV Entitic volume (RBC) 84.2 fL 80-94 [facility] Work Phone: [phone] Monocytes/100 leukocytes 11.9 % High 0-10 [facility] Work Phone: Monocytes/100 WBC (Bld) 11.9 % High 0-10 [facility] Work Phone: [phone] neutrophil count, blood 7.5 X10 3/UL Invalid Interpretation Code 2.0-7.7 [facility] Work Phone: Neutrophils #/vol (Bld) 7.5 X10 3/UL 2.0-7.7 [facility] Work Phone: Neutrophils/100 leukocytes 78.2 % High 47-70 [facility] Work Phone: Neutrophils/100 WBC (Bld) 78.2 % High 47-70 [facility] Work Phone: [phone] Platelet mean volume Entitic volume (Bld) 10.6 fL 6.2-12.0 [facility] Work Phone: [phone] Platelets 329 10*3/mm3 Invalid Interpretation Code 150-450 [facility] Work Phone: [phone] Platelets #/vol (Bld) 329 10*3/mm3 150-450 [facility] Work Phone: [phone] PMV by Doc 10.6 fL Invalid Interpretation Code 6.2-12.0 [facility] Work Phone: [phone] RBC #/vol (Bld) 4.69 10*6/uL 4.6-6.2 [facility] Phone: [phone] RDW-CA 13.6 % Invalid Interpretation Code 11.6-14.6 [facility] Phone: [phone] red blood cell distribution width, size density 41.6 fL Invalid Interpretation Code 35.1-43.9 [facility] Phone: [phone] WBC #/vol (Bld) 9.6 10*3/uL 4.4-11.0 [facility] Work Phone: [phone] WBC (Leukocytes) 9.6 10*3/uL Invalid Interpretation Code 4.4-11.0 [facility] Phone: [phone] Lab Report: Thyroid Stim Hor marino (TSH)on 06-23-2015 Thyroid stimulating hormone (TSH) 1.72 u[iU]/mL Invalid Interpretation Code 0.358-3.74 [facility] Phone: [phone] Office Visiton 05-31-2015 General cardiovascular disease 10Y risk [#] [place].D'Agostmarlon 18 % Invalid Interpretation Code [facility] Phone: [phone] Tobacco smoking status NHIS Never smoker [facility] Work Phone: [phone] Tobacco use CPHS Never smoker Invalid Interpretation Code [facility] Phone: [phone] 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 Alanine aminotransferase (ALT) 43 U/L Invalid Interpretation Code [facility] Work Phone: [phone] Albumin 2.3 g/dL Low [facility] Work Phone: [phone] Albumin/Globulin Ratio 0.7 {ratio} Low [facility] Work Phone: [phone] Alkaline phosphatase (ALP) 183 U/L High [facility] Work Phone: [phone] ALP enzyme act/vol (Bld) 183 U/L High [facility] Work Phone: [phone] Anion gap 6 mmol/L Invalid Interpretation Code [facility] Work Phone: [phone] Anion gap molar conc 6 mmol/L [facility] Work Phone: [phone] Aspartate aminotransferase (AST) 33 U/L Invalid Interpretation Code [facility] Work Phone: [phone] basophils as percent of blood leukocytes, manual count 0.1 % Invalid Interpretation Code [facility] Work Phone: [phone] Bilirubin (total) 1.80 mg/dL Invalid Interpretation Code [facility] Work Phone: [phone] BUN/Creatinine Ratio 9.0 mg/mg Low [facility] Work Phone: [phone] Calcium 7.3 mg/dL Low [facility] Work Phone: [phone] Chloride 99 mmol/L Invalid Interpretation Code [facility] Work Phone: [phone] CO2 29.0 mmol/L Invalid Interpretation Code [facility] Work Phone: [phone] CO2 ppres (BldV) 29.0 mmol/L [facility] Work Phone: [phone] Creatinine 1.0 mg/dL Invalid Interpretation Code [facility] Work Phone: [phone] eosinophils as percent of blood leukocytes, manual count 0.4 % Invalid Interpretation Code [facility] Work Phone: [phone] Globulin 3.5 g/dL Invalid Interpretation Code [facility] Work Phone: [phone] Globulin mass conc (S) 3.5 g/dL [facility] Work Phone: [phone] Glucose 182 mg/dL High [facility] Work Phone: [phone] Glucose mass conc 182 mg/dL High [facility] Work Phone: [phone] Magnesium 1.4 mg/dL Low [facility] Work Phone: [phone] neutrophils, band form as percent of blood leukocytes, manual count 86.9 % High [facility] Work Phone: [phone] Potassium 4.1 mmol/L Invalid Interpretation Code [facility] Work Phone: [phone] Protein 5.8 g/dL Low [facility] Work Phone: [phone] Sodium 134 mmol/L Low [facility] Work Phone: [phone] Urea nitrogen 9 mg/dL Invalid Interpretation Code [facility] Work Phone: [phone] Replaced Document: Sachi Mcgrawon 09-28-2014 BUN (urea nitrogen) Atrial 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 ABNORMAL Invalid Interpretation Code [facility] Work Phone: [phone] EKG QRS axis -52 deg [facility] Work Phone: [phone] GE use only - for [employer] import when terms are not otherwise specified 506 ms Invalid Interpretation Code [facility] Work Phone: [phone] Interpretation Atrial 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 ABNORMAL [facility] Work Phone: [phone] P [place] -140 deg [facility] Work Phone: [phone] P wave axis, electrocardiogram -140 deg Invalid Interpretation Code [facility] Work Phone: [phone] PA Interval 0 ms [facility] Work Phone: [phone] PA interval, electrocardiogram 0 ms Invalid Interpretation Code [facility] Work Phone: [phone] Pulse (Heart Rate) 65 /min Invalid Interpretation Code [facility] Work Phone: [phone] QRS axis, electrocardiogram -52 deg Invalid Interpretation Code [facility] Work Phone: [phone] QRS Duration 156 ms [facility] Work Phone: [phone] QRS duration, electrocardiogram 156 ms Invalid Interpretation Code [facility] Work Phone: [phone] QT Interval new path ms [facility] Work Phone: [phone] QT interval, electrocardiogram new path ms Invalid Interpretation Code [facility] Work Phone: [phone] QTc Ashby 506 ms [facility] Work Phone: [phone] T [place] -1 deg [facility] Work Phone: [phone] T wave axis, electrocardiogram -1 deg Invalid Interpretation Code [facility] Work Phone: [phone]) Lab Report: Lipid Profileon 05-28-2014 Cholesterol 120 mg/dL Invalid Interpretation Code 200 [facility] Work Phone: [phone] HDL Cholesterol 49 mg/dL Invalid Interpretation Code [facility] Work Phone: [phone] LDL Cholesterol 58 mg/dL Invalid Interpretation Code 0-130 [facility] Work Phone: [phone] Triglyceride 67 mg/dL Invalid Interpretation Code 0-199 [facility] Work Phone: [phone] very low density lipoproteins 13 mg/dL Invalid Interpretation Code 5-40 [facility] Work Phone: [phone] Lab Report: Liver Profileon 05-28-2014 Bilirubin (direct) 0.38 mg/dL Critically high 0.00-0.30 [facility] Work Phone: [phone] Globulin 3.2 g/dL Invalid Interpretation Code 2.7-4.2 [facility] Work Phone: [phone] Globulin mass conc (S) 3.2 g/dL 2.7-4.2 [facility] Work Phone: [phone] Lab Report: T4 Total, Thyrox inon 05-28-2014 Thyroxine (T4) 7.3 ug/dL Invalid Interpretation Code 4.5-12.1 [facility] Work Phone: [phone] Office Visiton 05-26-2014 Alcoholism counseling (procedure) yes Invalid Interpretation Code [facility] Work Phone: [phone] cardiac risk group C Invalid Interpretation Code [facility] Work Phone: [phone] Protein mass conc yes [facility] Work Phone: [phone] Vital Signs Date Time Vital Sign Value Performing Clinician Murieli minory 12-03-2024 16:10-0400 Body temperature 98.1 [degF] Dr. Bernard Nugent MD Work Phone: [facility] 12-03-2024 16:10-0400 Diastolic blood pressure 77 mm[Hg] Dr. Bernard Nugent MD Work Phone: [phone] [place] [address] 12-03-2024 16:10-0400 Heart rate 61 /min Dr. Bernard Nugent MD Work Phone: [phone] [place] [address] 12-03-2024 16:10-0400 Respiratory rate 16 /min Dr. Bernard Nugent MD Work Phone: [phone])656-783771 [place] [address] 12-03-2024 16:10-0400 SaO2% (BldA) [Mass fraction] 95 % Dr. Bernard Nugent MD Work Phone: [facility] 12-03-2024 16:10-0400 Systolic blood pressure 136 mm[Hg] Dr. Bernard Nugent MD Work Phone: [phone] [place] [address] 12-03-2024 12:20-0400 Body height 177.[address] Bernard Nugent MD Work Phone: [facility] 12-03-2024 12:20-0400 Body mass index (BMI) [Ratio] 28.4 kg/m2 Dr. Bernard Nugent MD Work Phone: [facility] 12-03-2024 12:20-0400 Body weight 89.[address] Bernard Nugent MD Work Phone: [facility] 11-26-2024 11:17-0400 Body height 177.[address] Bernard Nugent MD Work Phone: [facility] 11-26-2024 11:17-0400 Body mass index (BMI) [Ratio] 28.8 kg/m2 Dr. Bernard Nugent MD Work Phone: [facility] 11-26-2024 11:17-0400 Body temperature 97.5 [degF] Dr. Bernard Nugent MD Work Phone: [facility] 11-26-2024 11:17-0400 Body weight 91.[address] Bernard Nugent MD Work Phone: [facility] 11-26-2024 11:17-0400 Diastolic blood pressure 75 mm[Hg] Dr. Bernard Nugent MD Work Phone: 5(281)[phone] [place] [address] 11-26-2024 11:17-0400 Heart rate 59 /min Dr. Bernard Nugent MD Work Phone: [phone])429-827571 [place] [address] 11-26-2024 11:17-0400 Respiratory rate 16 /min Dr. Bernard Nugent MD Work Phone: [phone])794-319817 [place] [address] 11-26-2024 11:17-0400 SaO2% (BldA) [Mass fraction] 92 % Dr. Bernard Nugent MD Work Phone: 4(892)038-964671 [place] [address] 11-26-2024 11:17-0400 Systolic blood pressure 143 mm[Hg] Dr. Bernard Nugent MD Work Phone: 5(930)973-340617 [place] [address] 11-14-2024 11:27-0400 Body temperature 97.6 [degF] Dr. Bernard Nugent MD Work Phone: 2(753)184-623671 [place] [address] 11-14-2024 11:27-0400 Diastolic blood pressure 70 mm[Hg] Dr. Bernard Nugent MD Work Phone: 0(158)177-376971 [place] [address] 11-14-2024 11:27-0400 Heart rate 61 /min Dr. Bernard Nugent MD Work Phone: [phone])[phone] [place] [address] 11-14-2024 11:27-0400 Respiratory rate 16 /min Dr. Bernard Nugent MD Work Phone: 0(915)999-814071 [place] [address] 11-14-2024 11:27-0400 SaO2% (BldA) [Mass fraction] 99 % Dr. Bernard Nugent MD Work Phone: 9(011)162-258671 [place] [address] 11-14-2024 11:27-0400 Systolic blood pressure 159 mm[Hg] Dr. Bernard Nugent MD Work Phone: [phone])738-807071 [place] [address] 11-14-2024 06:00-0400 Body mass index (BMI) [Ratio] 28.5 kg/m2 Dr. Bernard Nugent MD Work Phone: 9([phone])106-260217 [place] [address] 11-14-2024 06:00-0400 Body weight 90.[address] Bernard Nugent MD Work Phone: 3([phone])951-561117 [place] [address] 11-13-2024 22:50-0400 Diastolic blood pressure 71 mm[Hg] Dr. Bernard Nugent MD Work Phone: [phone] [address] [place] [address] 11-13-2024 22:50-0400 Heart rate 67 /min Dr. Bernard Nugent MD Work Phone: 0(420)886-397617 [place] [address] 11-13-2024 22:50-0400 Systolic blood pressure 160 mm[Hg] Dr. Bernard Nugent MD Work Phone: 6(575)010-191217 [place] [address] 11-13-2024 14:02-0400 Body temperature 97.8 [degF] Dr. Bernard Nugent MD Work Phone: 5(664)432-135717 [place] [address] 11-13-2024 14:02-0400 Respiratory rate 18 /min Dr. Bernard Nugent MD Work Phone: 2(692)094-717117 [place] [address] 11-13-2024 14:02-0400 SaO2% (BldA) [Mass fraction] 95 % Dr. Bernard Nugent MD Work Phone: 7(467)901-506217 [place] [address] 11-13-2024 05:17-0400 Body mass index (BMI) [Ratio] 28.5 kg/m2 Dr. Bernard Nugent MD Work Phone: 1(848)975-702817 [place] [address] 11-13-2024 05:17-0400 Body weight 90.[address] Bernard Nugent MD Work Phone: 0(754)978-152417 [place] [address] 11-12-2024 12:57-0400 Body height 177.[address] Bernard Nugent MD Work Phone: 1(271)844-951817 [place] [address] 11-11-2024 22:34-0400 Body temperature 98 [degF] Dr. Bernard Nugent MD Work Phone: [facility] 11-11-2024 22:34-0400 Diastolic blood pressure 85 mm[Hg] Dr. Bernard Nugent MD Work Phone: 3(377)426-842871 [place] [address] 11-11-2024 22:34-0400 Heart rate 59 /min Dr. Bernard Nugent MD Work Phone: 5(295)443-799817 [place] [address] 11-11-2024 22:34-0400 Respiratory rate 26 /min Dr. Bernard Nugent MD Work Phone: 0(663)812-468017 [place] [address] 11-11-2024 22:34-0400 SaO2% (BldA) [Mass fraction] 97 % Dr. Bernard Nugent MD Work Phone: 8(093)749-458717 [place] [address] 11-11-2024 22:34-0400 Systolic blood pressure 160 mm[Hg] Dr. Bernard Nugent MD Work Phone: 6(573)048-207917 [place] [address] 11-11-2024 22:28-0400 Body mass index (BMI) [Ratio] 28.7 kg/m2 Dr. Bernard Nugent MD Work Phone: 7(082)065-560017 [place] [address] 11-11-2024 22:28-0400 Body weight 90.[address] Bernard Nugent MD Work Phone: 4(642)408-657117 [place] [address] 11-11-2024 15:49-0400 Body height 177.[address] Bernard Nugent MD Work Phone: 9(435)166-464717 [place] [address] 07-03-2024 14:34-0500 Body height 177.[address] Bernard Nugent MD Work Phone: 0(126)762-567017 [place] [address] 07-03-2024 14:34-0500 Body mass index (BMI) [Ratio] 33.1 kg/m2 Dr. Bernard Nugent MD Work Phone: 3(399)659-201017 [place] [address] 07-03-2024 14:34-0500 Body temperature 98.3 [degF] Dr. Bernard Nugent MD Work Phone: 9(961)390-399971 [place] [address] 07-03-2024 14:34-0500 Body weight 104.[address] Bernard Nugent MD Work Phone: [facility] 07-03-2024 14:34-0500 Diastolic blood pressure 76 mm[Hg] Dr. Bernard Nugent MD Work Phone: 2(099)205-190171 [place] [address] 07-03-2024 14:34-0500 Heart rate 85 /min Dr. Bernard Nugent MD Work Phone: 4(638)703-645571 [place] [address] 07-03-2024 14:34-0500 Respiratory rate 16 /min Dr. Bernard Nugent MD Work Phone: 2(246)177-250371 [place] [address] 07-03-2024 14:34-0500 SaO2% (BldA) [Mass fraction] 98 % Dr. Bernard Nugent MD Work Phone: 9(198)325-436171 [place] [address] 07-03-2024 14:34-0500 Systolic blood pressure 180 mm[Hg] Dr. Bernard Nugent MD Work Phone: 1(529)216-910217 [place] [address] 03-31-2024 11:41-0500 Body mass index (BMI) [Ratio] 30.1 kg/m2 Dr. Bernard Nugent MD Work Phone: 0(871)932-955117 [place] [address] 03-31-2024 11:41-0500 Body weight 95.[address] Bernard Nugent MD Work Phone: 7(951)641-496017 [place] [address] 03-31-2024 11:41-0500 Diastolic blood pressure 76 mm[Hg] Dr. Bernard Nugent MD Work Phone: 2(091)604-290117 [place] [address] 03-31-2024 11:41-0500 Heart rate 59 /min Dr. Bernard Nugent MD Work Phone: 6(672)643-841071 [place] [address] 03-31-2024 11:41-0500 Respiratory rate 16 /min Dr. Bernard Nugent MD Work Phone: 5(919)938-154271 [place] [address] 03-31-2024 11:41-0500 Systolic blood pressure 153 mm[Hg] Dr. Bernard Nugent MD Work Phone: 2(278)957-599517 [place] [address] 07-11-2023 11:28-0500 Diastolic blood pressure 70 mm[Hg] Dr. Bernard Nugent Work Phone: [facility] 07-11-2023 11:28-0500 Systolic blood pressure 150 mm[Hg] Dr. Bernard Nugent Work Phone: 1(650)625-355071 [place] [address] 07-11-2023 08:37-0500 Body height 177.[address] Bernard Nugent Work Phone: 6(653)868-362471 [place] [address] 07-11-2023 08:37-0500 Body mass index (BMI) [Ratio] 29 kg/m2 Dr. Bernard Nugent Work Phone: 0(011)438-842771 [place] [address] 07-11-2023 08:37-0500 Body weight 91.[address] Bernard Nugent Work Phone: 9(741)613-844017 [place] [address] 07-11-2023 08:37-0500 Heart rate 57 /min Dr. Bernard Nugent Work Phone: 3(262)202-338071 [place] [address] 07-11-2023 08:37-0500 Respiratory rate 20 /min Dr. Bernard Nugent Work Phone: 7(419)718-680971 [place] [address] 07-11-2023 08:37-0500 SaO2% (BldA) [Mass fraction] 99 % Dr. Bernard Nugent Work Phone: 3(149)818-581071 [place] [address] 07-07-2023 16:43-0500 Body temperature 97 [degF] Dr. Bernard Nugent Work Phone: 2(574)324-045371 [place] [address] 07-07-2023 16:43-0500 Diastolic blood pressure 70 mm[Hg] Dr. Bernard Nugent Work Phone: 7(541)332-140371 [place] [address] 07-07-2023 16:43-0500 Heart rate 82 /min Dr. Bernard Nugent Work Phone: [facility] 07-07-2023 16:43-0500 Respiratory rate 18 /min Dr. Bernard Nugent Work Phone: [facility] 07-07-2023 16:43-0500 SaO2% (BldA) [Mass fraction] 96 % Dr. Bernard Nugent Work Phone: [facility] 07-07-2023 16:43-0500 Systolic blood pressure 160 mm[Hg] Dr. Bernard Nugent Work Phone: [facility] 07-07-2023 11:16-0500 Body height 177.[address] Bernard Nugent Work Phone: [facility] 07-07-2023 11:16-0500 Body mass index (BMI) [Ratio] 29.8 kg/m2 Dr. Bernard Nugent Work Phone: 8(592)749-649671 [place] [address] 07-07-2023 11:16-0500 Body weight 94.[address] Bernard Nugent Work Phone: 7(183)040-923971 [place] [address] 05-26-2023 17:48-0500 Body height 177.[address] Bernard Nugent Work Phone: 0(413)539-449471 [place] [address] 05-26-2023 17:48-0500 Body mass index (BMI) [Ratio] 30.2 kg/m2 Dr. Bernard Nugent Work Phone: 3(037)806-802471 [place] [address] 05-26-2023 17:48-0500 Body temperature 96.6 [degF] Dr. Bernard Nugent Work Phone: 1(293)212-930271 [place] [address] 05-26-2023 17:48-0500 Body weight 95.[address] Bernard Nugent Work Phone: [facility] 05-26-2023 17:48-0500 Diastolic blood pressure 92 mm[Hg] Dr. Bernard Nugent Work Phone: 3(388)121-333771 [place] [address] 05-26-2023 17:48-0500 Heart rate 59 /min Dr. Bernard Nugent Work Phone: [facility] 05-26-2023 17:48-0500 Respiratory rate 16 /min Dr. Bernard Nugent Work Phone: 4(213)338-353871 [place] [address] 05-26-2023 17:48-0500 SaO2% (BldA) [Mass fraction] 99 % Dr. Bernard Nugent Work Phone: [facility] 05-26-2023 17:48-0500 Systolic blood pressure 181 mm[Hg] Dr. Bernard Nugent Work Phone: [facility] 03-24-2023 12:31-0500 Diastolic blood pressure 70 mm[Hg] Dr. Bernard Nugent Work Phone: 7(142)550-563271 [place] [address] 03-24-2023 12:31-0500 Heart rate 76 /min Dr. Bernard Nugent Work Phone: 5(485)458-248017 [place] [address] 03-24-2023 12:31-0500 Respiratory rate 15 /min Dr. Bernard Nugent Work Phone: 6(658)737-966317 [place] [address] 03-24-2023 12:31-0500 SaO2% (BldA) [Mass fraction] 97 % Dr. Bernard Nugent Work Phone: 9(920)102-288417 [place] [address] 03-24-2023 12:31-0500 Systolic blood pressure 190 mm[Hg] Dr. Bernard Nugent Work Phone: 7(311)398-034017 [place] [address] 03-24-2023 09:50-0500 Body height 177.[address] Bernard Nugent Work Phone: 5(599)563-907817 [place] [address] 03-24-2023 09:50-0500 Body mass index (BMI) [Ratio] 28.3 kg/m2 Dr. Bernard Nugent Work Phone: 7(219)867-728117 [place] [address] 03-24-2023 09:50-0500 Body temperature 98 [degF] Dr. Bernard Nugent Work Phone: 2(533)097-222717 [place] [address] 03-24-2023 09:50-0500 Body weight 89.[address] Bernard Nugent Work Phone: 4(179)342-165617 [place] [address] 02-01-2023 15:07-0400 Body height 177.[address] Bernard Nugent Work Phone: 2(626)465-781917 [place] [address] 02-01-2023 15:07-0400 Body mass index (BMI) [Ratio] 28.4 kg/m2 Dr. Bernard Nugent Work Phone: 0(688)399-404317 [place] [address] 02-01-2023 15:07-0400 Body weight 89.[address] Bernard Nugent Work Phone: 8(377)551-880317 [place] [address] 02-01-2023 15:07-0400 Diastolic blood pressure 81 mm[Hg] Dr. Bernard Nugent Work Phone: [facility] 02-01-2023 15:07-0400 Heart rate 56 /min Dr. Bernard Nugent Work Phone: [facility] 02-01-2023 15:07-0400 Respiratory rate 16 /min Dr. Bernard Nugent Work Phone: [facility] 02-01-2023 15:07-0400 Systolic blood pressure 135 mm[Hg] Dr. Bernard Nugent Work Phone: 8(866)540-717771 [place] [address] 09-25-2022 08:12-0400 Body temperature 97.6 [degF] Dr. Bernard Nugent Work Phone: 9(543)567-915971 [place] [address] 09-25-2022 08:12-0400 Diastolic blood pressure 78 mm[Hg] Dr. Bernard Nugent Work Phone: 0(677)626-618971 [place] [address] 09-25-2022 08:12-0400 Heart rate 55 /min Dr. Bernard Nugent Work Phone: [facility] 09-25-2022 08:12-0400 Respiratory rate 15 /min Dr. Bernard Nugent Work Phone: 2(065)075-875271 [place] [address] 09-25-2022 08:12-0400 SaO2% (BldA) [Mass fraction] 96 % Dr. Bernard Nugent Work Phone: 6(417)288-235271 [place] [address] 09-25-2022 08:12-0400 Systolic blood pressure 168 mm[Hg] Dr. Bernard Nugent Work Phone: [facility] 09-24-2022 11:20-0400 Body height 177.[address] Bernard Nugent Work Phone: 3(453)257-477971 [place] [address] 09-24-2022 11:20-0400 Body weight 92.[address] Bernard Nugent Work Phone: [facility] 09-21-2022 10:16-0400 Body mass index (BMI) [Ratio] 29.1 kg/m2 Dr. Bernard Nugent Work Phone: [facility] 06-19-2022 10:54-0500 Body height 177.[address] Bernard Nugent Work Phone: [facility] 06-19-2022 10:54-0500 Body mass index (BMI) [Ratio] 29.1 kg/m2 Dr. Bernard Nugent Work Phone: [facility] 06-19-2022 10:54-0500 Body weight 92.[address] Bernard Nugent Work Phone: [facility] 06-19-2022 10:54-0500 Diastolic blood pressure 82 mm[Hg] Dr. Bernard Nugent Work Phone: [facility] 06-19-2022 10:54-0500 Diastolic blood pressure 70 mm[Hg] Dr. Bernard Nugent Work Phone: [facility] 06-19-2022 10:54-0500 Heart rate 50 /min Dr. Bernard Nugent Work Phone: [facility] 06-19-2022 10:54-0500 Respiratory rate 24 /min Dr. Bernard Nugent Work Phone: [facility] 06-19-2022 10:54-0500 Systolic blood pressure 144 mm[Hg] Dr. Bernard Nugent Work Phone: [facility] 06-19-2022 10:54-0500 Systolic blood pressure 160 mm[Hg] Dr. Bernard Nugent Work Phone: [facility] 06-19-2022 10:54-0500 Body mass index (BMI) [Ratio] 28.5 kg/m2 Dr. Bernard Nugent Work Phone: [facility] 06-19-2022 10:54-0500 Body weight 90.[address] Bernard Nugent Work Phone: [facility] 06-19-2022 10:54-0500 Heart rate 72 /min Dr. Bernard Nugent Work Phone: [facility] 06-19-2022 10:54-0500 Respiratory rate 18 /min Dr. Bernard Nugent Work Phone: [facility] 06-19-2022 10:54-0500 SaO2% (BldA) [Mass fraction] 99 % Dr. Bernard Nugent Work Phone: [facility] 02-28-2022 13:08-0400 Body temperature 97.2 [degF] Dr. Bernard Nugent Work Phone: [facility] Work Phone: 02-28-2022 13:08-0400 Body weight 90.[address] Bernard Nugent Work Phone: [facility] Work Phone: 02-28-2022 13:08-0400 Diastolic blood pressure 84 mm[Hg] Dr. Bernard Nugent Work Phone: [facility] Work Phone: 02-28-2022 13:08-0400 Heart rate 76 /min Dr. Bernard Nugent Work Phone: [facility] Work Phone: 02-28-2022 13:08-0400 Respiratory rate 18 /min Dr. Bernard Nugent Work Phone: [facility] Work Phone: 02-28-2022 13:08-0400 Systolic blood pressure 168 mm[Hg] Dr. Bernard Nugent Work Phone: [facility] Work Phone: 02-04-2022 23:53-0400 Diastolic blood pressure 73 mm[Hg] Dr. Bernard Nugent Work Phone: [facility] Work Phone: 02-04-2022 23:53-0400 Heart rate 48 /min Dr. Bernard Nugent Work Phone: [facility] Work Phone: 02-04-2022 23:53-0400 Respiratory rate 19 /min Dr. Bernard Nugent Work Phone: [facility] Work Phone: 02-04-2022 23:53-0400 SaO2% (BldA) [Mass fraction] 97 % Dr. Bernard Nugent Work Phone: [facility] Work Phone: 02-04-2022 23:53-0400 Systolic blood pressure 183 mm[Hg] Dr. Bernard Nugent Work Phone: [facility] Work Phone: 02-04-2022 21:39-0400 Body height 177.[address] Bernard Nugent Work Phone: [facility] Work Phone: 02-04-2022 21:39-0400 Body mass index (BMI) [Ratio] 29.5 kg/m2 Dr. Bernard Nugent Work Phone: [facility] Work Phone: 02-04-2022 21:39-0400 Body temperature 97.3 [degF] Dr. Bernard Nugent Work Phone: [facility] Work Phone: 02-04-2022 21:39-0400 Body weight 93.[address] Bernard Nugent Work Phone: [facility] Work Phone: 01-24-2022 13:06-0400 Body height 177.[address] Bernard Nugent Work Phone: [facility] Work Phone: 01-24-2022 13:02-0400 Diastolic blood pressure 72 mm[Hg] Dr. Bernard Nugent Work Phone: [facility] Work Phone: 01-24-2022 13:02-0400 Systolic blood pressure 142 mm[Hg] Dr. Bernard Nugent Work Phone: [facility] Work Phone: 12-22-2021 15:00-0400 Heart rate 59 /min Dr. Bernard Nugent Work Phone: [facility] Work Phone: 12-22-2021 14:21-0400 Body temperature 97.9 [degF] Dr. Bernard Nugent Work Phone: [facility] Work Phone: 12-22-2021 14:21-0400 Diastolic blood pressure 86 mm[Hg] Dr. Bernard Nugent Work Phone: [facility] Work Phone: 12-22-2021 14:21-0400 Respiratory rate 16 /min Dr. Bernard Nugent Work Phone: [facility] Work Phone: 12-22-2021 14:21-0400 SaO2% (BldA) [Mass fraction] 98 % Dr. Bernard Nugent Work Phone: [facility] Work Phone: 12-22-2021 14:21-0400 Systolic blood pressure 144 mm[Hg] Dr. Bernard Nugent Work Phone: [facility] Work Phone: 12-22-2021 06:00-0400 Body weight 92.[address] Bernard Nugent Work Phone: [facility] Work Phone: 12-21-2021 17:04-0400 Body height 177.[address] Bernard Nugent Work Phone: [facility] Work Phone: 12-21-2021 17:04-0400 Body mass index (BMI) [Ratio] 29.7 kg/m2 Dr. Bernard Nugent Work Phone: [facility] Work Phone: 12-21-2021 17:04-0400 Body weight 93.[address] Bernard Nugent Work Phone: [facility] Work Phone: 12-21-2021 16:41-0400 Body temperature 98.1 [degF] Dr. Bernard Nugent Work Phone: [facility] Work Phone: 12-21-2021 16:41-0400 Diastolic blood pressure 98 mm[Hg] Dr. Bernard Nugent Work Phone: [facility] Work Phone: 12-21-2021 16:41-0400 Heart rate 37 /min Dr. Bernard Nugent Work Phone: [facility] Work Phone: 12-21-2021 16:41-0400 Respiratory rate 18 /min Dr. Bernard Nugent Work Phone: [facility] Work Phone: 12-21-2021 16:41-0400 SaO2% (BldA) [Mass fraction] 96 % Dr. Bernard Nugent Work Phone: [facility] Work Phone: 12-21-2021 16:41-0400 Systolic blood pressure 176 mm[Hg] Dr. Bernard Nugent Work Phone: [facility] Work Phone: 12-19-2021 11:46-0400 Diastolic blood pressure 101 mm[Hg] Dr. Bernard Nugent Work Phone: [facility] Work Phone: 12-19-2021 11:46-0400 Heart rate 101 /min Dr. Bernard Nugent Work Phone: [facility] Work Phone: 12-19-2021 11:46-0400 Respiratory rate 16 /min Dr. Bernard Nugent Work Phone: [facility] Work Phone: 12-19-2021 11:46-0400 SaO2% (BldA) [Mass fraction] 98 % Dr. Bernard Nugent Work Phone: [facility] Work Phone: 12-19-2021 11:46-0400 Systolic blood pressure 153 mm[Hg] Dr. Bernard Nugent Work Phone: [facility] Work Phone: 12-19-2021 10:20-0400 Body temperature 97 [degF] Dr. Bernard Nugent Work Phone: [facility] Work Phone: 12-19-2021 10:04-0400 Body height 177.[address] Bernard Nugent Work Phone: [facility] Work Phone: 12-19-2021 10:04-0400 Body mass index (BMI) [Ratio] 30.1 kg/m2 Dr. Bernard Nugent Work Phone: [facility] Work Phone: 12-19-2021 10:04-0400 Body weight 95.[address] Bernard Nugent Work Phone: [facility] Work Phone: 12-07-2021 10:01-0400 Diastolic blood pressure 70 mm[Hg] Dr. Bernard Nugent Work Phone: [facility] Work Phone: 12-07-2021 10:01-0400 Systolic blood pressure 144 mm[Hg] Dr. Bernard Nugent Work Phone: [facility] Work Phone: 12-07-2021 10:00-0400 Body mass index (BMI) [Ratio] 30.1 kg/m2 Dr. Bernard Nugent Work Phone: [facility] Work Phone: 12-07-2021 10:00-0400 Body weight 95.[address] Bernard Nugent Work Phone: [facility] Work Phone: 12-07-2021 10:00-0400 Heart rate 52 /min Dr. Bernard Nugent Work Phone: [facility] Work Phone: 12-07-2021 10:00-0400 Respiratory rate 18 /min Dr. Bernard Nugent Work Phone: [facility] Work Phone: 12-07-2021 10:00-0400 SaO2% (BldA) [Mass fraction] 97 % Dr. Bernard Nugent Work Phone: [facility] Work Phone: 10-26-2021 13:34-0400 Body temperature 97.4 [degF] Dr. Bernard Nugent Work Phone: [facility] Work Phone: 10-26-2021 13:34-0400 Diastolic blood pressure 64 mm[Hg] Dr. Bernard Nugent Work Phone: [facility] Work Phone: 10-26-2021 13:34-0400 Heart rate 63 /min Dr. Bernard Nugent Work Phone: [facility] Work Phone: 10-26-2021 13:34-0400 Respiratory rate 16 /min Dr. Bernard Nugent Work Phone: [facility] Work Phone: 10-26-2021 13:34-0400 SaO2% (BldA) [Mass fraction] 95 % Dr. Bernard Nugent Work Phone: [facility] Work Phone: 10-26-2021 13:34-0400 Systolic blood pressure 143 mm[Hg] Dr. Bernard Nugent Work Phone: [facility] Work Phone: 10-26-2021 00:01-0400 Body height 177.[address] Bernard Nugent Work Phone: [facility] Work Phone: 10-26-2021 00:01-0400 Body mass index (BMI) [Ratio] 29.7 kg/m2 Dr. Bernard Nugent Work Phone: [facility] Work Phone: 10-26-2021 00:01-0400 Body weight 94.[address] Bernard Nugent Work Phone: [facility] Work Phone: 10-25-2021 23:03-0400 Body temperature 98 [degF] Dr. Bernard Nugent Work Phone: [facility] Work Phone: 10-25-2021 23:03-0400 Diastolic blood pressure 68 mm[Hg] Dr. Bernard Nugent Work Phone: [facility] Work Phone: 10-25-2021 23:03-0400 Heart rate 61 /min Dr. Bernard Nugent Work Phone: [facility] Work Phone: 10-25-2021 23:03-0400 Respiratory rate 18 /min Dr. Bernard Nugent Work Phone: [facility] Work Phone: 10-25-2021 23:03-0400 SaO2% (BldA) [Mass fraction] 98 % Dr. Bernard Nugent Work Phone: [facility] Work Phone: 10-25-2021 23:03-0400 Systolic blood pressure 152 mm[Hg] Dr. Bernard Nugent Work Phone: [facility] Work Phone: 10-25-2021 20:34-0400 Body height 175.[address] Bernard Nugent Work Phone: [facility] Work Phone: 10-25-2021 20:34-0400 Body mass index (BMI) [Ratio] 31.9 kg/m2 Dr. Bernard Nugent Work Phone: [facility] Work Phone: 10-25-2021 20:34-0400 Body weight 98.[address] Bernard Nugent Work Phone: [facility] Work Phone: 01-15-2017 14:04-0400 BMI (Body Mass Index) 30.8 kg/m2 [facility] Work Phone: 01-15-2017 14:04-0400 BP Diastolic 60 mm[Hg] Chelsy Reis [facility] Work Phone: 01-15-2017 14:04-0400 BP Systolic 120 mm[Hg] Chelsy Reis [facility] Work Phone: 01-15-2017 14:04-0400 Height 176.53 cm Chelsy Smith [facility] Work Phone: 01-15-2017 14:04-0400 Pulse (Heart Rate) 56 /min Chelsy Reis [facility] Work Phone: 01-15-2017 14:04-0400 Respiratory Rate 20 /min Chelsy Reis [facility] Work Phone: 01-15-2017 14:04-0400 Weight 95.98 kg Chelsy Reis [facility] Work Phone: 05-25-2016 08:04-0500 BMI (Body Mass Index) 30.27 kg/m2 Annalisa Jones RN [facility] Work Phone: 05-25-2016 08:04-0500 BP Diastolic 70 mm[Hg] Annalisa Jones RN [facility] Work Phone: 05-25-2016 08:04-0500 BP Systolic 152 mm[Hg] Annalisa Jones RN [facility] Work Phone: 05-25-2016 08:04-0500 BSA (Body Surface Area) 2.11 m2 Annalisa Jones RN [facility] Work Phone: 05-25-2016 08:04-0500 Height 176.53 cm Annalisa Jones RN [facility] Work Phone: 01-06-2017 08:04-0500 Pulse (Heart Rate) 70 /min Annalisa Jones RN [facility] Work Phone: 05-25-2016 08:04-0500 Respiratory Rate 18 /min Annalisa Jones RN [facility] Work Phone: 05-25-2016 08:04-0500 Weight 94.35 kg Annalisa Jones RN [facility] Work Phone: 09-28-2014 16:19-0400 Heart rate 65 /min Chelsy Reis [facility] Work Phone: Encounters Encounter Date Encounter Type Care Provider Facility Start: 12-03-2024 Evaluation and management of inpatient Dr. Ramos Boles DO [facility] Work Phone: Start: 12-03-[address] Bernard Nugent MD Work Phone: [facility] Start: 11-26-2024 End: 11-26-2024 Patient encounter procedure Ximena PURI -[facility] Work Phone: Start: 11-26-2024 End: 11-26-[address] Bernard Nugent MD Work Phone: -[facility] Start: 11-14-2024 Non-patient / Non-[facility]: Start: 11-14-2024 ambulatory Bernard [facility] Raffi Facility:[facility] Start: 11-13-2024 Non-patient / Non-visit Dr. Ankit Last DO [facility] Work Phone: Start: 11-12-2024 Non-patient / Non-visit Dr. Ankit [facility] Work Phone: Start: 11-11-2024 ambulatory Bernard Chi Raffi Facility:[facility] Start: 11-11-2024 End: 11-14-2024 Evaluation and management of inpatient Dr. Unique Salazar MD -[facility] Work Phone: Start: 11-05-2024 End: 11-05-[address] Bernard Nugent MD Work Phone: [facility] Start: 11-05-2024 End: 11-05-[address] Rodolfo Tobias MD -[facility] Work Phone: Start: 10-31-2024 End: 10-31-[address] Bernard Nugent MD Work Phone: [facility] Start: 10-31-2024 End: 10-31-[address] Rodolfo Tobias MD -[facility] Work Phone: Start: 10-30-2024 End: 10-30-[address] Bernard Nugent MD Work Phone: [facility] Work Phone: Start: 10-30-2024 End: 10-30-[address] Bernard Nugent MD -Radiology [facility] Work Phone: Start: 10-30-2024 End: 10-30-2024 ambulatory Bernard Nugent Facility:[facility] Start: 10-22-2024 End: 10-22-[address] Bernard Nugent MD Work Phone: [facility] Work Phone: Start: 10-22-2024 End: 10-22-[address] Bernard Nugent MD -Laboratory Work Phone: Start: 10-22-2024 End: 10-22-2024 ambulatory Bernard Nugent Facility:[facility] Start: 10-19-2024 ambulatory Shaila Haq Facility: [facility] Start: 08-06-2024 End: 08-06-2024 ambulatory Rodolfo Tobias Facility:[facility] Start: 08-06-2024 End: 08-06-[address] Rodolfo Tobias MD -[facility] Work Phone: Start: 07-27-2024 End: 07-27-[address] Bernard Nugent MD Work Phone: [facility] Work Phone: Start: 07-27-2024 End: 07-27-[address] Bernard Nugent MD -Laboratory Work Phone: Start: 07-27-2024 End: 07-27-2024 ambulatory [facility] Facility:[facility] Start: 07-09-2024 End: 07-09-[address] Bernard Nugent MD Work Phone: [facility] Work Phone: Start: 07-09-2024 End: 07-09-[address] Bernard Nugent MD -Laboratory, Specimen Work Phone: Start: 07-09-2024 End: 07-09-2024 ambulatory [facility] Facility:[facility] Start: 07-03-2024 End: 07-03-2024 Emergency department patient visit Dr. Salvatore Hightower DO -Emergency Department Work Phone: Start: 05-07-2024 End: 05-07-2024 ambulatory Rodolfo Tobias Facility:[facility] Start: 05-07-2024 End: 05-07-[address] Rodolfo Tobias MD -[facility] Work Phone: Start: 04-27-2024 End: 04-27-[address] Bernard Nugent MD -Laboratory, Phy Office 3rd [facility] Start: 04-27-2024 End: 04-27-2024 [facility] Start: 04-22-2024 End: 04-22-[address] Bernard Nugent MD -Laboratory Work Phone: Start: 04-22-2024 End: 04-22-2024 ambulatory [facility] Facility:[facility] Start: 03-31-2024 End: 03-31-[address] Rodolfo Tobias MD -[facility] Work Phone: Start: 03-31-2024 End: 03-31-2024 ambulatory Bernard Chi Raffi Facility:[facility] Start: 03-09-2024 End: 03-09-2024 ambulatory Bernard Chi Raffi Facility:[facility] Start: 03-04-2024 ambulatory Bernard Chi Raffi Facility:[facility] Start: 02-28-2024 End: 02-28-2024 ambulatory Bernard Chi Raffi Facility:[facility] Start: 02-20-2024 End: 02-21-2024 ambulatory Bernard Chi Raffi Facility:[facility] Start: 02-20-2024 End: 02-20-2024 ambulatory Bernard Chi Raffi Facility:[facility] Start: 02-05-2024 End: 02-05-2024 ambulatory Rodolfoguy Tobias Facility:[facility] Start: 01-24-2024 End: 01-24-2024 ambulatory Bernard Chi Raffi Facility:[facility] Start: 07-26-2023 Non-patient / Non-visit Dr. Bernard Nugent Work Phone: [facility] Start: 07-26-2023 End: 07-26-[address] Bernard Nugent Work Phone: [facility] Work Phone: Start: 07-26-2023 End: 07-26-[address] Bernard Nugent Work Phone: [facility]-Cardiovascular Services Work Phone: Start: 07-24-2023 End: 07-24-[address] Bernard Nugent Work Phone: [facility] Work Phone: Start: 07-24-2023 End: 07-24-[address] Bernard Nugent Work Phone: [facility]-Laboratory, Phy Office 3rd Flr Start: 07-11-2023 End: 07-11-[address] Bernard Nugent Work Phone: [facility] Work Phone: Start: 07-07-2023 End: 07-07-2023 Emergency department patient [facility] Start: 07-01-2023 End: 07-01-[address] Bernard Nugent Work Phone: [facility] Work Phone: Start: 05-26-2023 End: 05-26-2023 Emergency department patient visit Dr. [facility] Start: 05-17-2023 End: 05-17-[address] Bernard Nugent Work Phone: [facility] Work Phone: Start: 05-08-2023 End: 05-08-[address] Bernard Nugent Work Phone: [facility] Work Phone: Start: 03-25-2023 End: 03-25-[address] Bernard Nugent Work Phone: [facility] Work Phone: Start: 03-25-2023 End: 03-25-[address] Bernard Nugent Work Phone: [facility]-Laboratory, Phy Office 3rd Flr Start: 03-24-2023 End: 03-24-2023 Emergency department patient visit Dr. Bernard Nugent Work Phone: [facility]-Emergency Department Work Phone: Start: 02-07-2023 End: 02-07-[address] Bernard Nugent Work Phone: [facility] Work Phone: Start: 02-07-2023 End: 02-07-[address] Bernard Nugent Work Phone: [facility] Office 3rd Mdr Start: 02-06-2023 End: 02-06-[address] Bernard Nugent Work Phone: [facility] Work Phone: Start: 02-01-2023 End: 02-01-[address] Bernard Nugent Work Phone: [facility] Work Phone: Start: 01-22-2023 End: 01-22-[address] Bernard Nugent Work Phone: [facility] Work Phone: Start: 01-22-2023 End: 01-22-[address] Bernard Nugent Work Phone: [facility] Office 3rd Mdr Start: 11-14-2022 End: 11-14-[address] Bernard Nugent Work Phone: [facility] Work Phone: Start: 11-06-2022 End: 11-06-[address] Bernard Nugent Work Phone: [facility] Work Phone: Start: 11-06-2022 End: 11-06-[address] Bernard Nugent Work Phone: [facility] Start: 10-30-2022 End: 10-30-[address] Bernard Nugent Work Phone: [facility] Start: 10-22-2022 End: 10-22-[address] Bernard Nugent Work Phone: [facility] Start: 10-02-2022 End: 10-02-[address] Bernard Nugent Work Phone: [facility] Start: 09-25-2022 End: 09-25-[address] Bernard Nugent Work Phone: [facility] Start: 09-25-2022 Non-patient / Non-visit Dr. Bernard Nugent Work Phone: [facility] Start: 09-24-2022 End: 09-25-2022 Evaluation and management of inpatient Dr. Bernard Nugent Work Phone: [facility]-Progressive Care Unit Start: 09-24-2022 End: 09-25-[address] Bernard Nugent Work Phone: [facility] Work Phone: Start: 09-18-2022 End: 09-18-[address] Bernard Nugent Work Phone: [facility] Start: 09-04-2022 End: 09-04-[address] Bernard Nugent Work Phone: [facility] Work Phone: Start: 09-04-2022 End: 09-04-[address] Bernard Nugent Work Phone: [facility]-Laboratory, Phy Office 3rd Flr Start: 08-09-2022 End: 08-09-[address] Bernard Nugent Work Phone: [facility] Work Phone: Start: 08-09-2022 End: 08-09-[address] Bernard Nugent Work Phone: [facility]-Pulmonary Services/Neurology Start: 08-08-2022 End: 08-08-[address] Bernard Nugent Work Phone: [facility] Work Phone: Start: 08-08-2022 End: 08-08-[address] [facility] Start: 07-20-2022 End: 07-20-[address] Bernard Nugent Work Phone: [facility] Work Phone: Start: 07-20-2022 End: 07-20-[address] [facility] Start: 06-19-2022 End: 06-19-[address] Bernard Nugent Work Phone: [facility] Start: 03-27-2022 End: 03-27-[address] Bernard Nugent Work Phone: [facility] Work Phone: Start: 03-27-2022 End: 03-27-[address] Bernard Nugent Work Phone: [facility]-Pulmonary Services/Neurology Start: 03-13-2022 Non-patient / Non-visit Dr. Bernard Nugent Work Phone: [facility] Start: 03-13-2022 End: 03-13-[address] Bernard Nugent Work Phone: [facility] Work Phone: Start: 03-13-2022 End: 03-13-[address] Bernard Nugent Work Phone: [facility]-Cardiovascular Services Start: 02-28-2022 End: 02-28-[address] [facility] Start: 02-28-2022 End: 02-28-[address] Bernard Nugent Work Phone: [facility] Start: 02-26-2022 End: 02-26-[address] [facility] Start: 02-04-2022 End: 02-05-2022 Emergency department patient visit Dr. Bernard Nugent Work Phone: [facility]-Emergency Department Start: 02-01-2022 End: 02-01-[address] Bernard Nugent Work Phone: [facility] Work Phone: Start: 02-01-2022 End: 02-01-[address] Bernard Nugent Work Phone: [facility]-Pulmonary Services/Neurology Start: 01-31-2022 End: 01-31-[address] Bernard Nugent Work Phone: [facility] Work Phone: Start: 01-31-2022 End: 01-31-[address] Bernard Nugent Work Phone: [facility]-Outpatient Breast Imaging Start: 01-24-2022 End: 01-24-[address] Bernard Nugent Work Phone: [facility] Start: 01-18-2022 End: 01-18-[address] Bernard Nugent Work Phone: [facility] Work Phone: Start: 01-18-2022 End: 01-18-[address] [facility] Start: 12-27-2021 End: 12-27-[address] Bernard Nugent Work Phone: [facility]-Laboratory Start: 12-22-2021 Non-patient / Non-visit Dr. Bernard Nugent Work Phone: [facility] Start: 12-22-2021 Non-patient / Non-visit Dr. Bernard Nugent Work Phone: [facility] Start: 12-21-2021 Non-patient / Non-visit Dr. Bernard Nugent Work Phone: [facility] Start: 12-21-2021 End: 12-22-2021 Evaluation and management of inpatient Dr. Bernard Nugent Work Phone: [facility] Start: 12-19-2021 End: 12-19-2021 Emergency department patient [facility] Start: 12-07-2021 End: 12-07-[address] Bernard Nugent Work Phone: [facility] Start: 11-02-2021 End: 11-02-[address] [facility] Start: 10-26-2021 Non-patient / Non-visit Dr. Bernard Nugent Work Phone: [facility] Start: 10-25-2021 Non-patient / Non-visit Dr. Bernard Nugent Work Phone: [facility] Start: 10-25-2021 End: 10-26-2021 Evaluation and management of inpatient Dr. Bernard Nugent Work Phone: [facility] Start: 10-25-2021 Non-patient / Non-visit Dr. Bernard Nugent Work Phone: [facility] Start: 10-18-2021 End: 10-18-[address] [facility] Start: 07-13-2021 End: 07-13-[address] [facility] Start: 05-16-2018 End: 05-16-2018 Patient encounter procedure [facility] Procedures Date Procedure Procedure Detail Performing Clinician Start: 12-03-2024 Urnls dip stick/tabl et reagent auto microscopy Dr. Bernard Nugent MD Work Phone: Start: 12-03-[address] Bernard Nugent MD Work Phone: Start: 11-12-[address] Bernard Nugent MD Work Phone: Start: 11-11-2024 Computed tomography of abdomen and pelvis with intravenous contrast Dr. Bernard Nugent MD Work Phone: Start: 11-11-2024 Serum inorganic phos phate measurement Dr. Bernard Nugent MD Work Phone: Start: 11-11-2024 Urnls dip stick/tabl et reagent auto microscopy Dr. Bernard Nugent MD Work Phone: Start: 11-11-2024 Clost[address]ium diffic[address] e detection Dr. Bernard Nugent MD Work Phone: Start: 11-11-2024 Measurement of occul t blood in stool specimen using immunoassay Dr. Bernard Nugent MD Work Phone: Start: 11-11-[address] Bernard Nugent MD Work Phone: Start: 11-11-2024 Iadna-dna/rna gi pth gn multiplex probe tq 6-11 Dr. Bernard Nugent MD Work Phone: Start: 10-30-2024 Serum inorganic phos phate measurement [...] Nugent Work Phone: Start: 01-15-2017 End: 01-15-2017 SUPERVISOR MET[employer]RICATING Rodolfo Tobias MD Start: 01-15-2017 End: 01-15-2017 Follow Up Appt 1 year Rodolfo Tobias MD Start: 05-25-2016 End: 05-25-2016 Dietary management education, guidance, and counseling Chelsy Reis Start: 05-25-2016 End: 05-25-2016 Follow Up Appt 6 months Cordelia Magdaleno Start: 05-25-2016 End: 05-25-2016 JUAN CARLOS Tobias MD Start: 11-23-2015 End: 11-23-2015 SUPERVISOR [employer] Muriel Bonilla PA-C Work Phone: Start: 11-23-2015 End: 11-23-2015 Follow Up Appt 6 months Muriel Bonilla PA-C Work Phone: Start: 05-31-2015 End: 05-31-2015 Follow Up Appt 6 months Cordelia Magdaleno Start: 05-31-2015 End: 05-31-2015 MMCordelia Tobias MD Start: 12-14-2014 End: 11-08-2016 *Hepatic Function Panel Cordelia Magdaleno Start: 12-14-2014 End: 11-08-2016 Lipid panel [AGGREGATE] Cordelia Magdaleno Start: 11-09-2014 End: 11-08-2015 SUPERVISOR [employer] Muriel Bonilla PA-C Work Phone: Start: 11-09-2014 [...] Panel Cordelia Magdaleno Start: 05-26-2014 End: 05-26-2014 SUPERVISOR [employer] Rodolfo Tobias MD Start: 05-26-2014 End: 11-03-2014 Echocardiography Rodolfo Tobias MD Start: 05-26-2014 End: 05-26-2014 Electrocardiogram, complete Rodolfo Tobias MD Start: 05-26-2014 End: 05-26-2014 Follow Up Appt 1 month Rodolfo Tobias MD Start: 05-26-2014 End: 05-31-2014 Lipid panel [AGGREGATE] oCrdelia Magdaleno Start: 05-26-2014 End: 11-03-2014 Nuclear stress test -Lexiscan Rodolfo Tobias MD Start: 05-26-2014 End: 11-03-2014 Thyroid stimulating hormone (TSH) Rodolfo Tobias MD Start: 05-26-2014 End: 11-03-2014 Thyroxine (T4) Rodolfo Tobias MD Start: 12-30-2013 End: 11-23-2015 X-ray exam of finger(s) Tj Boswell Work Phone: Plan of Treatment Date Care Activity Detail Author Start: 12-03-2024 Hospital admission, emergency, from emergency room, medical nature [facility] Start: 12-03-2024 Verification routine [facility] Start: 12-03-2024 Admission procedure [facility] Start: 12-03-2024 [facility] Start: 11-14-2024 Patient discharge [facility] Start: 11-13-2024 Referral to gastroenterology service [facility] Start: 11-12-2024 [facility] Start: 11-12-2024 Following clinical pathway protocol [facility] Start: 11-11-2024 Assessment of risk of venous thromboembolism [facility] Start: 11-11-2024 Care regimes management [facility] Start: 11-11-2024 Fall prevention [facility] Start: 11-11-2024 Insertion of catheter into peripheral vein [facility] Start: 11-11-2024 Introduction of urinary catheter [facility] Start: 11-11-2024 Measuring intake and output [facility] Start: 11-11-2024 Notification of physician [facility] Start: 11-11-2024 Oxygen therapy [facility] Start: 11-11-2024 Providing care according to standard [facility] Start: 11-11-2024 Provision of activity privileges [facility] Start: 11-11-2024 Referral to occupational therapist [facility] Start: 11-11-2024 Referral to service [facility] Start: 11-11-2024 End: 11-11-2024 [facility] Start: 11-11-2024 Serum inorganic phosphate measurement [facility] Start: 11-11-2024 Verification routine [facility] Start: 11-11-2024 End: 11-11-2024 Hospital admission, emergency, from emergency room, medical nature [facility] Start: 11-11-2024 Admission procedure [facility] Start: 11-11-2024 Patient referral to dietitian [facility] Start: 07-03-2024 [facility] Start: 07-03-2024 Smpl repair scalp/neck/ax/genit/trunk 2.6-7.5cm RPR S/N/AX/GEN/TRNK2.6-7.5CM [facility] Start: 07-07-2023 [facility] Start: 07-07-2023 [facility] Start: 05-26-2023 [facility] Start: 09-25-2022 Patient discharge [facility] Start: 09-24-2022 Following clinical pathway protocol [facility] Start: 09-24-2022 Bedrest [facility] Start: 09-24-2022 Elevation of head of bed [facility] Start: 09-24-2022 Admission procedure [facility] Start: 09-24-2022 Taking patient vital signs [facility] Start: 09-24-2022 Wound care [facility] Start: 09-24-2022 [facility] Start: 02-04-2022 [facility] Work Phone: Start: 12-22-2021 Patient discharge [facility] Work Phone: Start: 12-21-2021 Ambulation without limitation [facility] Work Phone: Start: 12-21-2021 Assessment of risk of venous thromboembolism [facility] Work Phone: Start: 12-21-2021 Incentive spirometry [facility] Work Phone: Start: 12-21-2021 Insertion of catheter into peripheral vein [facility] Work Phone: Start: 12-21-2021 Measuring intake and output 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 [facility] Work Phone: Start: 12-21-2021 Referral to occupational therapist [facility] Work Phone: Start: 12-21-2021 Referral to service [facility] Work Phone: Start: 08-04-2022 Following clinical pathway protocol [facility] Work Phone: Start: 12-21-2021 End: 12-21-2021 [facility] Work Phone: Start: 12-21-2021 Troponin I measurement [facility] Work Phone: Start: 12-21-2021 Verification routine [facility] Work Phone: Start: 12-21-2021 Admission procedure [facility] Work Phone: Start: 12-21-2021 [facility] Work Phone: Start: 12-19-2021 [facility] Work Phone: Start: 10-26-2021 Patient discharge [facility] Work Phone: Start: 10-25-2021 Following clinical pathway protocol [facility] Work Phone: Start: 10-25-2021 Application of intermittent pneumatic compression device [facility] Work Phone: Start: 10-25-2021 Assessment of risk of venous thromboembolism [facility] Work Phone: Start: 10-25-2021 Care regimes management [facility] Work Phone: Start: 10-25-2021 Insertion of catheter into peripheral vein [facility] Work Phone: Start: 10-25-2021 Notification of physician [facility] Work Phone: Start: 10-25-2021 Oxygen therapy [facility] Work Phone: Start: 10-25-2021 Patient education [facility] Work Phone: Start: 10-25-2021 Providing care according to standard [facility] Work Phone: Start: 10-25-2021 Provision of activity privileges [facility] Work Phone: Start: 10-25-2021 Referral to occupational therapist [facility] Work Phone: Start: 10-25-2021 Referral to service [facility] Work Phone: Start: 10-25-2021 [facility] Work Phone: Start: 10-25-2021 Care planning and problem solving actions [facility] Work Phone: Start: 10-25-2021 Admission procedure [facility] Work Phone: Start: 01-16-2018 End: 01-16-2018 Appointment [facility] Work Phone: Start: 01-15-2017 End: 01-15-2017 Appointment Appointment [facility] Work Phone: Start: 01-15-2017 End: 01-15-2017 SUPERVISOR METAL F[employer]RICATING SUPERVISOR MET[employer]ICATING [facility] Work Phone: Start: 01-15-2017 End: 01-15-2017 Follow Up Appt 1 year Follow Up Appt 1 year [facility] Work Phone: Start: 05-25-2016 End: 05-25-2016 Follow Up Appt 6 months Follow Up Appt 6 months [facility] Work Phone: Start: 05-25-2016 End: 05-25-2016 MMM MMM [facility] Work Phone: Start: 11-23-2015 End: 11-23-2015 SUPERVISOR METAL FABRICATING SUPERVISOR METAL FABRICATING [facility] Work Phone: Start: 11-23-2015 End: 11-23-2015 Follow Up Appt 6 months Follow Up Appt 6 months [facility] Work Phone: Start: 05-31-2015 End: 05-31-2015 Follow Up Appt 6 months Follow Up Appt 6 months [facility] Work Phone: Start: 05-31-2015 End: 05-31-2015 MMM MMM [facility] Work Phone: Start: 12-14-2014 End: 11-08-2016 *Hepatic Function Panel *Hepatic Function Panel [facility] Work Phone: Start: 12-14-2014 End: 11-08-2016 Lipid panel [AGGREGATE] *Lipid Profile CC PCP [facility] Work Phone: Start: 11-09-2014 End: 11-08-2015 SUPERVISOR METAL FABRICATING SUPERVISOR METAL FABRICATING [facility] Work Phone: Start: 11-09-2014 End: 11-08-2015 Follow Up Appt 6 months Follow Up Appt 6 months [facility] Work Phone: Start: 09-28-2014 End: 11-03-2014 Electrocardiogram, complete EKG (In office) [facility] Work Phone: Start: 09-28-2014 End: 09-28-2014 Follow Up Appt 6 weeks Follow Up Appt 6 weeks [facility] Work Phone: Start: 09-28-2014 End: 09-28-2014 MMM MMM [facility] Work Phone: Start: 05-26-2014 End: 11-03-2014 *BMP *BMP [facility] Work Phone: Start: 05-26-2014 End: 05-31-2014 *Hepatic Function Panel *Hepatic Function Panel [facility] Work Phone: Start: 05-26-2014 End: 05-26-2014 SUPERVISOR METAL FABRICATING SUPERVISOR METAL FABRICATING [facility] Work Phone: Start: 05-26-2014 End: 05-26-2014 Echocardiography Echocardiogram (complete) [facility] Work Phone: Start: 05-26-2014 End: 05-26-2014 Electrocardiogram, complete EKG (In office) [facility] Work Phone: Start: 05-26-2014 End: 05-26-2014 Follow Up Appt 1 month Follow Up Appt 1 month [facility] Work Phone: Start: 05-26-2014 End: 05-31-2014 Lipid panel [AGGREGATE] *Lipid Profile CC PCP [facility] Work Phone: Start: 05-26-2014 End: 05-26-2014 Nuclear stress test -Lexiscan Nuclear stress test -Lexiscan [facility] Work Phone: Start: 05-26-2014 End: 11-03-2014 Thyroid stimulating hormone (TSH) *TSH [facility] Work Phone: Start: 05-26-2014 End: 11-03-2014 Thyroxine (T4) *T4 (Total) [facility] Work Phone: Start: 12-30-2013 End: 11-23-2015 X-ray exam of finger(s) X-Ray, Fingers [facility] Work Phone: Influenza virus A an d B and SARS-CoV-2 (COVID-19) Ag panel - Upper respiratory specim [facility] Magnesium [Mass/volu me] in Serum or Plasma [facility] Work Phone: Magnesium measurement [facility] Patient Education [facility] [employer] Work Phone: Patient referral [facility] Work Phone: SARS-CoV-2 (COVID-19 ) Ag [Presence] in Respiratory specimen by Rapid immunoassay [facility] Work Phone: Troponin I measurement [facility] Work Phone: Immunizations Immunization Date Immunization Notes [facility] tetanus toxoid, redu sen diphtheria toxoid, and acellular pertussis vaccine, adsorbed Dr. Bernard Nugent MD Work Phone: [facility] 05-16-2023 RSV Adult BiValent (Abrysvo) Dr. Bernard Nugent MD Work Phone: [facility] 07-13-2021 Covid (Moderna) Dr. Bernard Nugent MD Work Phone: [facility] 07-15-2020 Covid (Moderna) Dr. Bernard Nugent Work Phone: [facility] 06-17-2020 Covid (Moderna) Dr. Bernard Nugent Work Phone: [facility] 12-17-[address] Bernard Nugent MD Work Phone: [facility] 02-26-2019 zoster vaccine, live Dr. Bernard Nugent MD Work Phone: [facility] 02-16-[address] Bernard Nugent Work Phone: [facility] Payers Date Payer Category Payer Self-pay [id number] 2023 Private Health Insurance [id number] 2016 Medicare [id number] Medicare [id number] Unknown [id number] 2.16.8 40.1.218820.3.579.2.462 Unknown [id number] 2.16.8 40.1.306325.3.579.2.462 Unknown [id number] 2.16.8 40.1.435016.3.579.2.462 Unknown [id number] 2.16.8 40.1.032452.3.579.2.462 Unknown [id number] 2.16.8 40.1.240069.3.579.2.462 Unknown [id number] 2.16.8 40.1.287067.3.579.2.462 Unknown [id number] 2.16.8 40.1.440542.3.579.2.462 Unknown [id number] 2.16.8 40.1.993656.3.579.2.462 Unknown [id number] 2.16.8 40.1.749040.3.579.2.462 Unknown [id number] 2.16.8 40.1.182078.3.579.2.462 Unknown [id number] 2.16.8 40.1.650156.3.579.2.462 Unknown [id number] 2.16.8 40.1.578411.3.579.2.462 Unknown [id number] 2.16.8 40.1.828500.3.579.2.462 Unknown [id number] 2.16.8 40.1.297217.3.579.2.462 Unknown [id number] 2.16.8 40.1.515834.3.579.2.462 Unknown [id number] 2.16.8 40.1.095298.3.579.2.462 Unknown [id number] 2.16.8 40.1.747095.3.579.2.462 Unknown [id number] 2.16.8 40.1.379962.3.579.2.462 Unknown [id number] 2.16.8 40.1.783497.3.579.2.462 Unknown [id number] 2.16.8 40.1.065761.3.579.2.462 Unknown [id number] 2.16.8 40.1.587962.3.579.2.462 Unknown [id number] 2.16.8 40.1.955646.3.579.2.462 Unknown [id number] 2.16.8 40.1.537472.3.579.2.462 Unknown [id number] 2.16.8 40.1.157638.3.579.2.462 Unknown [id number] 2.16.8 40.1.582187.3.579.2.462 Unknown [id number] 2.16.8 40.1.433559.3.579.2.462 Unknown [id number] 2.16.8 40.1.692939.3.579.2.462 Unknown [id number] 2.16.8 40.1.325426.3.579.2.462 Social History Date Type Detail Facility Start: 10-25-2021 End: 07-11-2023 Tobacco smoking status MTIS Unknown if ever smoked [facility] Start: 1935 Sex Assigned At Male [facility] Start: 07-03-2024 End: 11-11-2024 Tobacco smoking status NHIS Never smoked tobacco (finding) [facility] Start: 07-23-2024 End: 08-06-2024 Sex Male (finding) [facility] Start: 11-25-2024 End: 12-03-2024 Tobacco smoking status NHIS Ex-smoker (finding) [facility] Medical Equipment Procedure Code Equipment Code Equipment Origin al Text Equipment Identifier Dates ([id number]) Endocardial paci ng lead ()[id number] [id number] FDA Start: 09-24-2022 ([id number]) Single-chamber implantable pacemaker, rate-responsive ()[id number] [id number] FDA Start: 09-24-2022 Goals Date Patient Goal Desired Activity /State Functional Status Date Assessment Result Facility 11-14-2024 Functional status Bathroom Privilege [facility] Work Phone: 11-13-2024 Functional status Ambulates [facility] Work Phone: 09-25-2022 Functional status Ambulates [facility] Work Phone: 12-22-2021 Functional status Ambulates [facility] Work Phone: 10-26-2021 Functional status Activity Abili ty With Assist of 1 [facility] Work Phone: Mental Status Date Assessment Result Facility 11-14-2024 Cognitive function Voice/Name [facility] Work Phone: 11-13-2024 Cognitive function Voice/Name [facility] Work Phone: 05-26-2023 Cognitive function Level Of Cons ciousness Awake;Alert;Appropriate [facility] Work Phone: 03-24-2023 Cognitive function Level Of Cons ciousness Awake;Alert;Appropriate [facility] Work Phone: 09-25-2022 Cognitive function Voice/Name [facility] Work Phone: 12-22-2021 Cognitive function Voice/Name [facility] Work Phone: 10-26-2021 Cognitive function Voice/Name [facility] Work Phone: Clinical Notes 09-25-2022 to 11-14-2024 Note Date & Type Note Facility 11-14-2024 Discharge summary Note Date/Time November 14, 2024 10:20am [facility] Medical Records Department [address] [place] [address] Instructions for Home/Discharge Instructions 11/14/24 1015 MR#: [id number] Acct: [id number] Name: ASHIA PEREZ Rep #:[id number] : 1935 89 From: Ankit Last DO PCP: Dr. Bernard Nugent MD Status:ADM I N Discharge Instructions Diet Discharge Diet: No restrictions DC O2, CPAP, BIPAP needs Home O2 Discharge instructions: No Dressing / Incision Discharge Activity: Return to Normal Activity Weight Bearing Status: Full weight bearing Follow Up Care Test Results: Test results from this visit will be discussed in further detail at your follow-up appointment, if applicable. Discharge Plan Admission Admit Date/Time: 11/11/24 22:26 Primary Reason for Your Visit: Diarrhea, hematochezia (blood in stool) Attending Provider: Ankit Last Primary Care Provider: Bernard Nugent [employer] Providers: Unique Salazar Instructions Additional Instructions / Restrictions: You may obtain loperamide [id number] to take as needed for diarrhea Discharge Orders/Prescriptions Prescriptions: New loperamide 2 mg Capsule 4 mg PO TID PRN (Reason: Diarrhea) Qty: 1 0RF Rx Instructions: You may take loperamide 2 to 4 mg 3 times a day as needed for loose stools and diarrhea Continued losartan 100 mg tablet 100 mg PO QDAY furosemide 40 mg tablet 40 mg PO Q OTHER DAY PRN (Reason: edema) Rx Instructions: Hold if creatinine is more than 0.5 mg/dL above the baseline amlodipine 5 mg tablet 5 mg PO DAILY Qty: 90 3RF pravastatin 40 MG tablet 40 mg PO QHS Patient Comments: CHOLESTEROL levothyroxine 25 mcg tablet 25 mcg PO DAILY apixaban 2.5 mg tablet 2.5 mg PO BID Qty: 60 1RF metoprolol tartrate 25 mg tablet 25 mg PO BID Qty: 180 3RF Referrals / Follow Up: Bernard Nugent Chi, MD [Primary Care Provider] - In 1 Week (Dr. 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) Disposition Disposition (needs filled in before D/C Order can be placed): Home, Self Care 11/14/24 1020<Electronically signed by Ankit Last DO>Ankit Last DO CC: Dr. Unique Salazar MD; Dr. Bernard Nugent MD ~ Signed [facility] Work Phone: 1(756) 921-401106-28-2025 Discharge summary [facility] Medical Records Department [address] [place] [address] Instructions for Home/Discharge Instructions 11/14/24 1015 MR#: [id number] Acct: [id number] Name: ASHIA PEREZ Rep #:[id number] : 1935 89 From: Ankit Last DO PCP: Dr. Bernard Nugent MD Status:ADM I N Discharge Instructions Diet Discharge Diet: No restrictions DC O2, CPAP, BIPAP needs Home O2 Discharge instructions: No Dressing / Incision Discharge Activity: Return to Normal Activity Weight Bearing Status: Full weight bearing Follow Up Care Test Results: Test results from this visit will be discussed in further detail at your follow- up appointment, if applicable. Discharge Plan Admission Admit Date/Time: 11/11/24 22:26 Primary Reason for Your Visit: Diarrhea, hematochezia (blood in stool) Attending Provider: Ankit Last Primary Care Provider: Bernard Nugent [employer] Providers: Unique Salazar Instructions Additional Instructions / Restrictions: You may obtain loperamide [id number] to take as needed for diarrhea Discharge Orders/Prescriptions Prescriptions: New loperamide 2 mg Capsule 4 mg PO TID PRN (Reason: Diarrhea) Qty: 1 0RF Rx Instructions: You may take loperamide 2 to 4 mg 3 times a day as needed for loose stools and diarrhea Continued losartan 100 mg tablet 100 mg PO QDAY furosemide 40 mg tablet 40 mg PO Q OTHER DAY PRN (Reason: edema) Rx Instructions: Hold if creatinine is more than 0.5 mg/dL above the baseline amlodipine 5 mg tablet 5 mg PO DAILY Qty: 90 3RF pravastatin 40 MG tablet 40 mg PO QHS Patient Comments: CHOLESTEROL levothyroxine 25 mcg tablet 25 mcg PO DAILY apixaban 2.5 mg tablet 2.5 mg PO BID Qty: 60 1RF metoprolol tartrate 25 mg tablet 25 mg PO BID Qty: 180 3RF Referrals / Follow Up: Bernard Nugent Chi, MD [Primary Care Provider] - In 1 Week (Dr. 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) Disposition Disposition (needs filled in before D/C Order can be placed): Home, Self Care 11/14/24 Anthony0Ankit Last DO CC: Dr. Unique Salazar MD; Dr. Bernard Nugent MD ~ Signed [facility]06-28-2025 [facility] Medical Records Department [address] [place] [address] Discharge Summary 11/14/24 1020 MR#: [id number] Acct: [id number] Name: ASHIA PEREZ Rep #: [id number] : 1935 89 From: Ankit Lats DO PCP: Dr. Bernard Nugent MD Status:DIS IN [facility] Providers Date of Admission: 11/11/24 Date of Discharge: 11/14/24 Primary Care Physician: Dr. Bernard Nugent MD Consultations 11/13/24 14:32 Consult: Gastroenterology Routine Consulting Provider: [facility] Reason for Consult: diarrhea, past history of adenoma EMERGENT Consult: No MD Notified: Yes Date Notified: 11/13/24 Time Notified: 14:32 Method of Notification: Verbal Reason For Visit: RECTAL PAIN COLITIS Diagnosis Discharge Diagnosis (1) Occult GI bleeding: Status: Acute Code(s): R19.5 - Other fecal abnormalities (2) Colitis: Status: Acute Code(s): K52.9 - Noninfective gastroenteritis and colitis, unspecified Plan 1. Acute colitis-patient will remain on IV antibiotics and a clear liquid diet for now, patient is on IV Zosyn #2 atrial fibrillation-patient is on Eliquis and metoprolol #3 chronic kidney disease stage IIIa-monitor BMP as necessary #4 type 2 diabetes-patient is on sliding scale insulin and fingerstick blood sugars. #5 diarrhea-etiology unclear Total clinical time spent by myself addressing the patient's medical issues, reviewing all of his data, and collaborating with patient's care team: 35 minutes Medications at Discharge Home Medications pravastatin 40 mg tablet 40 mg PO QHS cholesterol 09/19/14 levothyroxine 25 mcg tablet 25 mcg PO DAILY 02/20/24 apixaban 2.5 mg tablet 2.5 mg PO BID blood thinner #60 tabs 03/27/24 amlodipine 5 mg tablet 5 mg PO DAILY #90 tabs 03/31/24 furosemide 40 mg tablet 40 mg PO Q OTHER DAY PRN edema 03/31/24 losartan 100 mg tablet 100 mg PO QDAY 03/31/24 metoprolol tartrate 25 mg tablet 25 mg PO BID #180 tabs 08/18/24 dicyclomine 20 mg tablet 20 mg PO TID #30 tabs 11/14/24 loperamide 2 mg capsule 4 mg (2 x 2 mg) PO TID PRN Diarrhea #1 cap 11/14/24 Hospital Course Operations None Procedures None Summary of Care Provided Minutes Spent on Discharge: 31 Hospital Course: This 89-year-old white male was seen in the emergency room at [facility] with complaints of rectal pain and diarrhea. Patient had a previous colon resection performed approximately 13 years prior and had a right hemicolectomy done at that time for a villous adenoma. Patient stated that he had not undergone a repeat colonoscopy for approximately 10 years. Patient's labs revealed his white blood cell count to be 11.4, hemoglobin was 12.8, creatinine was 1.46 and BUN was 20. Patient's total bilirubin was 2.12 and alkaline phosphatase was 142. Patient's urinalysis was unremarkable, CT of the abdomen and pelvis showed wall thickening and surrounding fat stranding of the distal rectum which could represent infectious or inflammatory colitis. Patient had moderate diverticulosis in the colon. Patient was admitted to [place] [address], he was placed on IV antibiotics, he continued to have stools but they were mostly smears on his depends. Patient's stool for enteric pathogen's and C. difficile was negative. There was a consideration to doing a sigmoidoscopy but it was not able to be performed due to scheduling conflicts and endoscopy. On 11/14/2024, patient was seen and examined: On examination he appeared in good health and spirits. Vital signs as documented. Skin warm and dry and without overt rashes. Neck without JVD, neck was supple, trachea midline, thyroid was normal. Lungs clear bilaterally, normal air movement was noted. Heart exam notable for regular rhythm, normal sounds and absence of murmurs, rubs or gallops. Abdomen unremarkable and without evidence of organomegaly, masses, or abdominal aortic enlargement. Bowel sounds are present, abdomen is not distended. Extremities nonedematous, no cyanosis was noted, no clubbing was noted. Neuro: Cranial nerves II through XII are grossly intact, no focal motor deficits were noted, sensation to light touch and pinprick intact, motor exam 5/5 throughout. Psych: Patient is alert and oriented x3, he does not appear anxious or depressed, he does not appear agitated. Patient was discharged home in stable condition on 11/14/2024, he was instructed to follow-up with his PCP regarding obtaining a colonoscopy, he was placed on Bentyl and Imodium as an outpatient to lessen his diarrhea. The etiology of his diarrhea was not understood. Weight / BMI Weight Weight: 90.5 kg Body Mass Index (BMI) 28.5 ABG / Lab / Microbiology Data 11/12/24 06:20 11/12/24 06:20 Laboratory: Laboratory Results - last 24 hr 11/13/24 11:09: POC Glucose 230 H 11/13/24 16:27: POC Glucose 137 H (more content not included)...[facility]06-27-2025 Progress note Author Ankit Last [facility] Note Date/Time November 13, 2024 5:10 pm [facility] Medical Records Department [address] [place] [address] Progress Note - Hospitalist 11/13/24 1705 MR#: [id number] Acct: [id number] Name: ASHIA PEREZ Rep #:[id number] : 1935 89 From: Ankit Last DO PCP: Dr. Bernard Nugent MD Status:ADM I N Location: [place] [address]1 Reason for Visit Reason for Visit: Diagnoses Noninfective gastroenteritis and colitis, unspecified (11/11/24) Subjective Subjective Patient was seen and examined today, at first he stated that he had not had a bowel movement but then stated that he had diarrhea. Patient has a past historyof villous adenoma with right hemicolectomy in 2011, stool sample was positive for blood this admission, enteric pathogen and C. difficile was negative. I contacted gastroenterology and requested that they see the patient, he will undergo a flexible sigmoidoscopy today. Objective Data Objective Data Vital Signs: Vital Signs Temp Pulse Resp BP Pulse Ox O2 Del Method 97.8 F 60 18 150/71 H 95 Room Air 11/13/24 14:02 11/13/24 14:02 11/13/24 14:02 11/13/24 14:02 11/13/24 14:02 11/13/24 14:02 Oxygen Delivery Method Room Air Weight: 90.6 kg Body Mass Index (BMI) 28.5 Intake & Output: Intake and Output for Last 24 Hours 11/11/24 11/12/24 11/13/24 23:59 23:59 23:59 Intake Total 50 / 50 1500.00 / 1500.00 400 / 400 Output Total 900 / 900 400 / 400 Balance 50 / -250 600.00 / 600.00 0 / 0 Lab / Micro Data 11/12/24 06:20 11/12/24 06:20 Labs: Laboratory Results - last 24 hr 11/12/24 16:47: POC Glucose 161 H 11/12/24 22:54: POC Glucose 131 H 11/13/24 05:16: POC Glucose 107 H 11/13/24 11:09: POC Glucose 230 H 11/13/24 16:27: POC Glucose 137 H Micro: Microbiology 11/11/24 10:17 Stool Enteric Bacteriology - Final 11/11/24 10:17 Stool Clostridioides difficile (PCR) - Final 11/11/24 18:56 Stool Stool Occult Blood (CHERRY) - Final Occult Blood Positive Physical Exam Const alert, oriented x3 and no apparent distress General Appearance: cooperative, well kempt and well developed Orientation / Consciousness: awake, oriented to person, oriented to place and oriented to time HEENT normocephalic, head/scalp atraumatic and moist oral mucous membranes Eyes PERRL, EOMs intact bilaterally and conjunctivae normal Neck supple, no JVD, thyroid normal and no carotid bruits General: trachea midline Resp normal respiratory effort, no retractions, no use of accessory muscles and clearto auscultation bilaterally Auscultation: Negative for rales, rhonchi or wheezes Cardio regular rate, regular rhythm, S1 normal heart sound, S2 normal heart sound, no murmurs, no rub and no gallops GI normal to inspection, nondistended, normoactive bowel sounds, soft to palpation,non-tender and non-distended Extremity no clubbing, cyanosis or edema Skin no rashes or lesions noted General Skin Exam: no breakdown Neuro oriented x3, CN's II-XII intact bilaterally, moves all extremities, no focal motor deficits and no sensory deficits noted Sensorium / Orientation: awake and alert Speech: speech normal Psych affect normal Assessment & Plan Assessment/Plan (1) Occult GI bleeding: (2) Colitis: PLAN: Plan 1. Acute colitis-patient will remain on IV antibiotics and a clear liquid diet for now, patient is on IV Zosyn, patient will undergo flexible sigmoidoscopy today #2 atrial fibrillation-patient is on Eliquis and metoprolol #3 chronic kidney disease stage IIIa-monitor BMP as necessary #4 type 2 diabetes-patient is on sliding scale insulin and fingerstick blood sugars. Total clinical time spent by myself addressing the patient's medical issues, reviewing all of his data, and collaborating with patient's care team: 35 minutes Charges/Coding Visit Charges Inpatient E&M: 59731 Subs Hosp L2 11/13/240 <Electronically signed by Ankit Last DO> Cosigner Signature (if applicable): CC: ~ Signed [facility] Work Phone: 1(495) 623-622806-27-2025 Progress note [facility] Medical Records Department [address] [place] [address] Progress Note - Hospitalist 11/13/24 170 MR#: [id number] Acct: [id number] Name: ASHIA PEREZ Rep #:[id number] : 1935 89 From: Ankit Last DO PCP: Dr. Bernard Nugent MD Status:ADM I N Location: [place] [address] Reason for Visit Reason for Visit: Diagnoses Noninfective gastroenteritis and colitis, unspecified (11/11/24) Subjective Subjective Patient was seen and examined today, at first he stated that he had not had a bowel movement but then stated that he had diarrhea. Patient has a past historyof villous adenoma with right hemicolectomy in 2011, stool sample was positive for blood this admission, enteric pathogen and C. difficile was negative. I contacted gastroenterology and requested that they see the patient, he will undergo a flexible sigmoidoscopy today. Objective Data Objective Data Vital Signs: Vital Signs Temp Pulse Resp BP Pulse Ox O2 Del Method 97.8 F 60 18 150/71 H 95 Room Air 11/13/24 14:02 11/13/24 14:02 11/13/24 14:02 11/13/24 14:02 11/13/24 14:02 11/13/24 14:02 Oxygen Delivery Method Room Air Weight: 90.6 kg Body Mass Index (BMI) 28.5 Intake & Output: Intake and Output for Last 24 Hours 11/11/24 11/12/24 11/13/24 23:59 23:59 23:59 Intake Total 50 / 50 1500.00 / 1500.00 400 / 400 Output Total 900 / 900 400 / 400 Balance 50 / -250 600.00 / 600.00 0 / 0 Lab / Micro Data 11/12/24 06:20 11/12/24 06:20 Labs: Laboratory Results - last 24 hr 11/12/24 16:47: POC Glucose 161 H 11/12/24 22:54: POC Glucose 131 H 11/13/24 05:16: POC Glucose 107 H 11/13/24 11:09: POC Glucose 230 H 11/13/24 16:27: POC Glucose 137 H Micro: Microbiology 11/11/24 10:17 Stool Enteric Bacteriology - Final 11/11/24 10:17 Stool Clostridioides difficile (PCR) - Final 11/11/24 18:56 Stool Stool Occult Blood (CHERRY) - Final Occult Blood Positive Physical Exam Const alert, oriented x3 and no apparent distress General Appearance: cooperative, well kempt and well developed Orientation / Consciousness: awake, oriented to person, oriented to place and oriented to time HEENT normocephalic, head/scalp atraumatic and moist oral mucous membranes Eyes PERRL, EOMs intact bilaterally and conjunctivae normal Neck supple, no JVD, thyroid normal and no carotid bruits General: trachea midline Resp normal respiratory effort, no retractions, no use of accessory muscles and clearto auscultation bilaterally Auscultation: Negative for rales, rhonchi or wheezes Cardio regular rate, regular rhythm, S1 normal heart sound, S2 normal heart sound, no murmurs, no rub and no gallops GI normal to inspection, nondistended, normoactive bowel sounds, soft to palpation,non-tender and non-distended Extremity no clubbing, cyanosis or edema Skin no rashes or lesions noted General Skin Exam: no breakdown Neuro oriented x3, CN's II-XII intact bilaterally, moves all extremities, no focal motor deficits and no sensory deficits noted Sensorium / Orientation: awake and alert Speech: speech normal Psych affect normal Assessment & Plan Assessment/Plan (1) Occult GI bleeding: (2) Colitis: PLAN: Plan 1. Acute colitis-patient will remain on IV antibiotics and a clear liquid diet for now, patient is on IV Zosyn, patient will undergo flexible sigmoidoscopy today #2 atrial fibrillation-patient is on Eliquis and metoprolol #3 chronic kidney disease stage IIIa-monitor BMP as necessary #4 type 2 diabetes-patient is on sliding scale insulin and fingerstick blood sugars. Total clinical time spent by myself addressing the patient's medical issues, reviewing all of his data, and collaborating with patient's care team: 35 minutes Charges/Coding Visit Charges Inpatient E&M: 41658 Subs Hosp L2 11/13/24 1710 Cosigner Signature (if applicable): CC: ~ Signed [facility]06-26-2025 Progress note Author Ankit Last [facility] Note Date/Time November 12, 2024 4:33 pm [facility] Medical Records Department [address] [place] [address] Progress Note - Hospitalist 11/12/24 1626 MR#: [id number] Acct: [id number] Name: ASHIA PEREZ Rep #:[id number] : 1935 89 From: Ankit Last DO PCP: Dr. Bernard Nugent MD Status:ADM I N Location: [place] [address] Reason for Visit Reason for Visit: Diagnoses Noninfective gastroenteritis and colitis, unspecified (11/11/24) Subjective Subjective Patient was seen and examined today, white blood cell count today was 8.4, hemoglobin was 11. Patient was admitted last night after he went to the ER complaining of diarrhea, CT of the abdomen and pelvis showed wall thickening andsurrounding fat stranding of the distal rectum likely infectious or inflammatorycolitis. Objective Data Objective Data Vital Signs: Vital Signs Temp Pulse Resp BP Pulse Ox O2 Del Method 97.7 F L 60 16 134/60 H 100 Room Air 11/12/24 14:33 11/12/24 14:33 11/12/24 14:33 11/12/24 14:33 11/12/24 14:33 11/12/24 14:33 Oxygen Delivery Method Room Air Weight: 88.6 kg Body Mass Index (BMI) 27.9 Intake & Output: Intake and Output for Last 24 Hours 11/10/24 11/11/24 11/12/24 23:59 23:59 23:59 Intake Total 50 / 50 1008.75 / 1008.75 Output Total 500 / 500 Balance 50 / -250 508.75 / 508.75 Lab / Micro Data 11/12/24 06:20 11/12/24 06:20 Labs: Laboratory Results - last 24 hr 11/11/24 18:56: WBC 11.4 H, RBC 4.09 L, Hgb 12.8 L, Hct 36.9 L, MCV 90.2, MCH 31.3, MCHC 34.7, RDW Std Deviation 43.8, RDW Coeff of Lisa 13.3, Plt Count 211, MPV 11.0, Immature Gran % (Auto) 0.600, Neut % (Auto) 81.6 H, Lymph % (Auto) 8.3L, [place] % (Auto) 8.4, Eos % (Auto) 0.8, Baso % (Auto) 0.3, Absolute Neuts (auto)9.3 H, Absolute Lymphs (auto) 0.95, Nucleated RBC % 0, Sodium 136, Potassium 4.0, Chloride 102, Carbon Dioxide 23.1, Anion Gap 11, BUN 20 H, Creatinine 1.46 H, Est GFR (MDRD) Non-Af 46 L, BUN/Creatinine Ratio 13.6, Glucose 171 H, Calcium8.8, Phosphorus 3.2, Magnesium 1.9, Total Bilirubin 2.12 H, AST 24, ALT 19, Alkaline Phosphatase 142 H, Total Protein 6.7, Albumin 3.7, Globulin 3.0, Albumin/Globulin Ratio 1.2, Urine Color Yellow, Urine Clarity Clear, Urine pH 6.0, Ur Specific [place] 1.020, Urine Protein 30 H, Urine Glucose (UA) Normal, Urine Ketones Negative, Urine Occult Blood 25 H, Urine Nitrite Negative, Urine Bilirubin Negative, Urine Urobilinogen 1 H, Ur Leukocyte Esterase 25 H, Urine RBC 0-5 SEEN, Urine WBC 0-5 SEEN, Ur Squamous Epith Cells 0 SEEN, Urine Bacteria0 SEEN, Urine Mucus 0 SEEN 11/11/24 23:52: POC Glucose 183 H 11/12/24 06:20: WBC 8.4, RBC 3.54 L, Hgb 11.0 L, Hct 31.3 L, MCV 88.4, MCH 31.1,MCHC 35.1, RDW Std Deviation 42.7, RDW Coeff of Lisa 13.2, Plt Count 174, MPV 11.2, Immature Gran % (Auto) 0.400, Neut % (Auto) 75.1 H, Lymph % (Auto) 12.1 L,[place] % (Auto) 10.3 H, Eos % (Auto) 1.6, Baso % (Auto) 0.5, Absolute Neuts (auto)6.3, Absolute Lymphs (auto) 1.01, Nucleated RBC % 0, Sodium 137, Potassium 3.6, Chloride 106, Carbon Dioxide 22.2, Anion Gap 9, BUN 15, Creatinine 1.26 H, EstimCreat Clear Calc 44.55 L, Est GFR (MDRD) Non-Af 55 L, BUN/Creatinine Ratio 12.1,Glucose 105 H, Calcium 8.0, Total Bilirubin 1.85 H, AST 19, ALT 18, Alkaline Phosphatase 112, Total Protein 5.3 L, Albumin 3.2 L, Globulin 2.1 L, Albumin/Globulin Ratio 1.5, Procalcitonin 0.06 11/12/24 06:35: POC Glucose 110 H 11/12/24 11:32: POC Glucose 165 H Micro: Microbiology 11/11/24 10:17 Stool Clostridioides difficile (PCR) - Final 11/11/24 18:56 Stool Stool Occult Blood (CHERRY) - Final Occult Blood Positive Radiography Diagnostic Testing: Radiology Impression Abdomen/Pelvis CT 11/11/24 18:57 IMPRESSION: 1. Wall thickening and surrounding fat stranding of the distal rectum, which likely represents infectious/inflammatory colitis. 2. Moderate pancolonic diverticulosis. Reading Location: [facility] Physical Exam Const alert, oriented x3 and no apparent distress General Appearance: cooperative, well kempt and well developed Orientation / Consciousness: awake, oriented to person, oriented to place and oriented to time HEENT normocephalic, head/scalp atraumatic and moist oral mucous membranes Eyes PERRL, EOMs intact bilaterally and conjunctivae normal Neck supple, no JVD, thyroid normal and no carotid bruits General: trachea midline Resp normal respiratory effort and clear to auscultation bilaterally Auscultation: Negative for rales, rhonchi or wheezes Cardio S1 normal heart sound, S2 normal heart sound, no murmurs, no rub and no gallops Cardio Narrative: Heart rate and rhythm is irregular GI normal to inspection, nondistended, normoactive bowel sounds, soft to palpation,non-tender and non-distended Extremity no clubbing, cyanosis or edema Skin no rashes or lesions noted General Skin Exam: no breakdown Neuro oriented x3, CN's II-XII intact bilaterally, moves all extremities, no focal motor deficits and no sensory deficits noted Sensorium / Orientation: awake and alert Speech: speech normal Psych affect normal Assessment & Plan Assessment/Plan (1) Colitis: PLAN: Plan 1. Acute colitis-patient will remain on IV antibiotics and a clear liquid diet for now, patient is on IV Zosyn #2 atrial fibrillation-patient is on Eliquis and metoprolol #3 chronic kidney disease stage IIIa-patient's creatinine today was 1.26, BMP will be monitored as needed #4 type 2 diabetes-patient is on sliding scale insulin and fingerstick blood sugars. Total clinical time spent by myself addressing the patient's medical issues, reviewing all of his data, and collaborating with patient's care team: 35 minutes Charges/Coding Visit Charges Inpatient E&M: 97088 Subs Hosp L2 11/12/24 5807 <Electronically signed by Ankit Last DO> Cosigner Signature (if applicable): CC: ~ Signed [facility] Work Phone: 1(858) 136-421106-26-2025 Progress note [facility] Medical Records Department [address] [place] [address] Progress Note - Hospitalist 11/12/24 1626 MR#: [id number] Acct: [id number] Name: ASHIA PEREZ Rep #:[id number] : 1935 89 From: Ankit Last DO PCP: Dr. Bernard Nugent MD Status:ADM I N Location: [place] [address] Reason for Visit Reason for Visit: Diagnoses Noninfective gastroenteritis and colitis, unspecified (11/11/24) Subjective Subjective Patient was seen and examined today, white blood cell count today was 8.4, hemoglobin was 11. Patient was admitted last night after he went to the ER complaining of diarrhea, CT of the abdomen and pelvis showed wall thickening andsurrounding fat stranding of the distal rectum likely infectious or in flammatorycolitis. Objective Data Objective Data Vital Signs: Vital Signs Temp Pulse Resp BP Pulse Ox O2 Del Method 97.7 F L 60 16 134/60 H 100 Room Air 11/12/24 14:33 11/12/24 14:33 11/12/24 14:33 11/12/24 14:33 11/12/24 14:33 11/12/24 14:33 Oxygen Delivery Method Room Air Weight: 88.6 kg Body Mass Index (BMI) 27.9 Intake & Output: Intake and Output for Last 24 Hours 11/10/24 11/11/24 11/12/24 23:59 23:59 23:59 Intake Total 50 / 50 1008.75 / 1008.75 Output Total 500 / 500 Balance 50 / -250 508.75 / 508.75 Lab / Micro Data 11/12/24 06:20 11/12/24 06:20 Labs: Laboratory Results - last 24 hr 11/11/24 18:56: WBC 11.4 H, RBC 4.09 L, Hgb 12.8 L, Hct 36.9 L, MCV 90.2, MCH 31.3, MCHC 34.7, RDW Std Deviation 43.8, RDW Coeff of Lisa 13.3, Plt Count 211, MPV 11.0, Immature Gran % (Auto) 0.600, Neut % (Auto) 81.6 H, Lymph % (Auto) 8.3L, [place] % (Auto) 8.4, Eos % (Auto) 0.8, Baso % (Auto) 0.3, Absolute Neuts (auto)9.3 H, Absolute Lymphs (auto) 0.95, Nucleated RBC % 0, Sodium 136, Potassium 4.0, Chloride 102, Carbon Dioxide 23.1, Anion Gap 11, BUN 20 H, Creatinine 1.46 H, Est GFR (MDRD) Non-Af 46 L, BUN/Creatinine Ratio 13.6, Glucose 171 H, Calcium8.8, Phosphorus 3.2, Magnesium 1.9, Total Bilirubin 2.12 H, AST 24, ALT 19, Alkaline Phosphatase 142 H, Total Protein 6.7, Albumin 3.7, Globulin 3.0, Albumin/Globulin Ratio 1.2, Urine Color Yellow, Urine Clarity Clear, Urine pH 6.0, Ur Specific [place] 1.020, Urine Protein 30 H, Urine Glucose (UA) Normal, Urine Ketones Negative, Urine Occult Blood 25 H, Urine Nitrite Negative, Urine Bilirubin Negative, Urine Urobilinogen 1 H, Ur Leukocyte Esterase 25 H, Urine RBC 0-5 SEEN, Urine WBC 0-5 SEEN, Ur Squamous Epith Cells 0 SEEN, Urine [id number], Urine Mucus 0 SEEN 11/11/24 23:52: POC Glucose 183 H 11/12/24 06:20: WBC 8.4, RBC 3.54 L, Hgb 11.0 L, Hct 31.3 L, MCV 88.4, MCH 31.1,MCHC 35.1, RDW Std Deviation 42.7, RDW Coeff of Lisa 13.2, Plt Count 174, MPV 11.2, Immature Gran % (Auto) 0.400, Neut %(Auto) 75.1 H, Lymph % (Auto) 12.1 L,[place] % (Auto) 10.3 H, Eos % (Auto) 1.6, Baso % (Auto) 0.5, Absolute Neuts (auto)6.3, Absolute Lymphs (auto) 1.01, Nucleated RBC % 0, Sodium 137, Potassium 3.6, Chloride 106, Carbon Dioxide 22.2, Anion Gap 9, BUN 15, Creatinine 1.26 H, EstimCreat Clear Calc 44.55L, Est GFR (MDRD) Non-Af 55 L, BUN/Creatinine Ratio 12.1,Glucose 105 H, Calcium 8.0, Total Bilirubin 1.85 H, AST 19, ALT 18, Alkaline Phosphatase 112, Total Protein 5.3 L, Albumin 3.2 L, Globulin 2.1L, Albumin/Globulin Ratio 1.5, Procalcitonin 0.06 11/12/24 06:35: POC Glucose 110 H 11/12/24 11:32: POC Glucose 165 H Micro: Microbiology 11/11/24 10:17 Stool Clostridioides difficile (PCR) - Final 11/11/24 18:56 Stool Stool Occult Blood (CHERRY) - Final Occult Blood Positive Radiography Diagnostic Testing: Radiology Impression Abdomen/Pelvis CT 11/11/24 18:57 IMPRESSION: 1. Wall thickening and surrounding fat stranding of the distal rectum, which likely represents infectious/inflammatory colitis. 2. Moderate pancolonic diverticulosis. Reading Location: [facility] Physical Exam Const alert, oriented x3 and no apparent distress General Appearance: cooperative, well kempt and well developed Orientation / Consciousness: awake, oriented to person, oriented to place and oriented to time HEENT normocephalic, head/scalp atraumatic and moist oral mucous membranes Eyes PERRL, EOMs intact bilaterally and conjunctivae normal Neck supple, no JVD, thyroid normal and no carotid bruits General: trachea midline Resp normal respiratory effort and clear to auscultation bilaterally Auscultation: Negative for rales, rhonchi or wheezes Cardio S1 normal heart sound, S2 normal heart sound, no murmurs, no rub and no gallops Cardio Narrative: Heart rate and rhythm is irregular GI normal to inspection, nondistended, normoactive bowel sounds, soft to palpation,non-tender and non-distended Extremity no clubbing, cyanosis or edema Skin no rashes or lesions noted General Skin Exam: no breakdown Neuro oriented x3, CN's II-XII intact bilaterally, moves all extremities, no focal motor deficits and no sensory deficits noted Sensorium / Orientation: awake and alert Speech: speech normal Psych affect normal Assessment & Plan Assessment/Plan (1) Colitis: PLAN: Plan 1. Acute colitis-patient will remain on IV antibiotics and a clear liquid diet for now, patient is on IV Zosyn #2 atrial fibrillation-patient is on Eliquis and metoprolol #3 chronic kidney disease stage IIIa-patient's creatinine today was 1.26, BMP will be monitored as needed #4 type 2 diabetes-patient is on sliding scale insulin and fingerstick blood sugars. Total clinical time spent by myself addressing the patient's medical issues, reviewing all of his data, and collaborating with patient's care team: 35 minutes Charges/Coding Visit Charges Inpatient E&M: 33263 Subs Hosp L2 11/12/24 1633 Cosigner Signature (if applicable): CC: ~ Signed [facility]06-26-2025 Discharge summary Author Bhavya Panda [facility] Note Date/Time November 12, 2024 2:27 pm [facility] Medical Records Department [address] [place] [address] Emergency Department Summary 11/11/24 MR#: [id number] Acct: [id number] Name: ASHIA PEREZ Rep #:[id number] : 1935 89 From: Bhavya Owens PCP: Dr. 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 He states that he has been having diarrhea with frequent bowel movements. Is not sure if he is any blood in the stool but cannot tell because he has visually impaired. States that he initially saw his primary care doctor had an x-ray (this was reviewed in the chart and patient had a KUB on 10/30 that showed fecal retention of the colon consistent with constipation) he also had lab work that day which showed a very mild leukocytosis of 11.2 (down from where he was a weekbefore that), mild hyponatremia the sodium of 130 again near his baseline and anuptrending creatinine of 1.41 (was 1.22 a week before). Patient's has some mildlower abdominal pain and states he feels that there is a blockage in his rectum. He states he is associated rectal pain which is different than feeling raw fromwiping. States when he passes gas it helps with the pressure. He states it feels like there is a blockage in his rectum. Does have a history remotely of diverticulitis but states this feels different. Denies any fevers. Does state that 3 nights ago after taking Imodium he felt the blockage and then took 2 stool softeners. He has been having diarrhea since. States he is having at least 2-3 bowel movements a day. Sometimes more. Denies associated nausea. Came in for further evaluation of the symptoms. He was post have a repeat x-raywith his primary care doctor today but he was worried he would have incontinencefrom his diarrhea so he came to the ER instead [facility] Medical History NSVT (nonsustained ventricular [...] large intestine Diverticula of colon Home Medications ?Medication ?Instructions ?Recorded ?Last Taken ?Type pravastatin 40 mg tablet 40 mg PO QHS cholesterol 08/0112/21/21 History levothyroxine 25 mcg tablet 25 mcg PO DAILY 02/20/24 U nknown History apixaban 2.5 mg tablet 2.5 mg PO BID blood thinner #60 03/27/24 Unknown Rx tabs amlodipine 5 mg tablet 5 mg PO DAILY #90 tabs 03/31 Unknown Rx furosemide 40 mg tablet 40 mg PO Q OTHER DAY PRN maxwell ma 03/31/24 Unknown History losartan 100 mg tablet 100 mg PO QDAY 03/31/24 Unkn own History metoprolol tartrate 25 mg tablet 25 mg PO BID #180 tab s 08/18/24 Unknown Rx Allergy/AdvReac Type Severity Reaction Status Date / Time codeine AdvReac Other Verified 11/11/24 15:53 lisinopril AdvReac Other Verified 11/11/24 15:53 Family History Father CVA (cerebral vascular accident) Mother Diabetes Sister Heart disease PPM Surgical History History of appendectomy History of cataract surgery History of tonsillectomy H/O hemicolectomy Hx of cholecystectomy Social History household members: none housing: penitentiary Smoking Status: Never smoker alcohol intake: current alcohol intake frequency: holidays/special occasions only substance use type: does not use ROS ROS ED Constitutional Constitutional ED: Denies chills or fever(s) Cardiovascular Cardiovascular: Denies chest pain Respiratory/Chest Respiratory/Chest: Denies cough Gastrointestinal Gastrointestinal: Reports abdominal pain and diarrhea; Denies melena or nausea Genitourinary Genitourinary ED: Reports dysuria; Denies hematuria or urinary frequency Musculoskeletal Musculoskeletal: Denies arthralgias or myalgias Neurologic Neurologic: Denies weakness Hematologic/Lymphatic Hematologic/Lymphatic: Reports easy bleeding, easy bruising and other Details: On Eliquis EXAM Physical Exam Const Vital Signs: 11/11/24 15:49 11/11/24 17:49 11/11/24 19:00 Temperature 97.8 F Temperature Source Temporal Pulse Rate 55 L 59 L 58 L Respiratory Rate 15 16 20 H Blood Pressure 129/56 H 122/64 H 151/68 H Blood Pressure Mean 80 83 95 Pulse Ox 98 99 99 Oxygen Delivery Method Room Air Room Air 11/11/24 21:00 Temperature Temperature Source Pulse Rate Respiratory Rate 15 Blood Pressure 161/67 H Blood Pressure Mean 98 Pulse Ox 99 Oxygen Delivery Method Positive well nourished and well developed General Appearance ED: well developed and NAD; Negative for pallor HEENT Reports moist mucous membranes Eyes General Eye ED: Negative for scleral icterus Neck supple Resp normal respiratory effort and clear to auscultation bilaterally Cardio regular rate and regular rhythm GI non-distended GI Narrative: Mild tenderness in the pelvic region. No peritoneal signs. On rectal exam he has nonengorged/nonthrombosed with no bleeding external hemorrhoid. It is nontender. He does have tenderness on rectal exam and there is what feels like some stool out of my reach in the rectal vault. The stool itself is light brown. No obvious abscess or fluctuance appreciated. Auscultation: normoactive bowel sounds Palpation: soft Back/Spine no CVA tenderness Extremity full ROM Neuro Sensorium / Orientation: alert Motor Exam: Negative for general weakness Psych mental status grossly normal and thought process normal Skin no wounds General Skin Exam: Negative for jaundice or pallor MDM MDM MDM Narrative Medical decision making narrative: Patient evaluated for rectal pain, diarrhea and pelvic pain. This been going onfor a little over a week. He is having diarrhea to the point that he is having stool incontinence because he cannot make it to the bathroom in time. Differential includes fecal impaction, colitis, diverticulitis, perirectal abscess, GI bleeding, bowel obstruction, ANISH, symptomatic anemia and electrolyteabnormality. Workup shows a mild leukocytosis of 11.4 and mild anemia hemoglobin 12.8 howeverhis baseline looks to be closer to 13.8. He was 13.2 on 10/30/2024. BMP largelywithin normal limits. He has some chronic CKD with creatinine 1.46 today. It is only minimally elevated from his baseline of 1.22. BUN is also mildly elevated at 20. Looks like his baseline is closer to 12 or 15. Rectal exam shows brown stool that is tender José appreciate any mass. He does have Hemoccult positive stool. Concern for possible occult GI bleed given slightly elevated BUN, slightly downtrending hemoglobin and he is on Eliquis. In addition CT of the abdomen pelvis does show wall thickening and surrounding fat stranding the distal rectum likely representing infectious/inflammatory colitis. With his consolation of symptoms patient started on broad-spectrum antibiotics,Flagyl and Rocephin. Will be admitted to hospital service for further treatmentand monitoring. Patient is agreeable this plan of care. Lab Data Attestation: I reviewed the patient's lab results. Labs: Laboratory Results - last 24 hr 11/11/24 18:56 WBC 11.4 H RBC 4.09 L Hgb 12.8 L Hct 36.9 L MCV 90.2 MCH 31.3 MCHC 34.7 RDW Std Deviation 43.8 RDW Coeff of Lisa 13.3 Plt Count 211 MPV 11.0 Immature Gran % (Auto) 0.600 Neut % (Auto) 81.6 H Lymph % (Auto) 8.3 L [place] % (Auto) 8.4 Eos % (Auto) 0.8 Baso % (Auto) 0.3 Absolute Neuts (auto) 9.3 H Absolute Lymphs (auto) 0.95 Nucleated RBC % 0 Sodium 136 Potassium 4.0 Chloride 102 Carbon Dioxide 23.1 Anion Gap 11 BUN 20 H Creatinine 1.46 H Est GFR (MDRD) Non-Af 46 L BUN/Creatinine Ratio 13.6 Glucose 171 H Calcium 8.8 Phosphorus 3.2 Magnesium 1.9 Total Bilirubin 2.12 H AST 24 ALT 19 Alkaline Phosphatase 142 H Total Protein 6.7 Albumin 3.7 Globulin 3.0 Albumin/Globulin Ratio 1.2 Urine Color Yellow Urine Clarity Clear Urine pH 6.0 Ur Specific [place] 1.020 Urine Protein 30 H Urine Glucose (UA) Normal Urine Ketones Negative Urine Occult Blood 25 H Urine Nitrite Negative Urine Bilirubin Negative Urine Urobilinogen 1 H Ur Leukocyte Esterase 25 H Urine RBC 0-5 SEEN Urine WBC 0-5 SEEN Ur Squamous Epith Cells 0 SEEN Urine Bacteria 0 SEEN Urine Mucus 0 SEEN Radiography Diagnostic Testing: Clinical Impression(s) from Imaging Studies Abdomen/Pelvis CT 11/11/24 18:57 IMPRESSION: 1. Wall thickening and surrounding fat stranding of the distal rectum, which likely represents infectious/inflammatory colitis. 2. Moderate pancolonic diverticulosis. Reading Location: [id number] Management Discussion w/another healthcare provider: Hospitalist Discharge Plan Dx/Rx/DC Orders Clinical Impression: Colitis, Occult GI bleeding, Current use of prison anticoagulation Disposition Disposition: Acute Care Hospital [facility] Discharge Date/Time: 11/11/24 22:55 What to do if you have Problems For any increased pain, shortness of breath, bleeding, nausea or vomiting, chestpain, or any unexpected problems, contact your Primary Care Provider. Call [facility] ([phone]) or report to the closest Emergency Room. Call 911 if necessary. 11/12/241426 <Electronically signed by Bhavya Panda DO> Cosigner Signature (if applicable): CC: Dr. Bernard Nugent MD ~ Signed [facility] Work Phone: [phone]) [phone] Discharge summary [facility] Medical Records Department [address] [place] [address] Emergency Department Summary 11/11/24 MR#: [id number] Acct: [id number] Name: ASHIA PEREZ Rep #:[id number] : 1935 89 From: Bhavya Owens PCP: Dr. 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 He states that he has been having diarrhea with frequent bowel movements. Is not sure if he is any blood in the stool but cannot tell because he has visually impaired. States that he initially saw his primary care doctor had an x-ray (this was reviewed in the chartand patient had a KUB on 10/30 that showed fecal retention of the colon consistent with constipation) he also had lab work that day which showed a very mild leukocytosis of 11.2 (down from where he was a weekbefore that), mild hyponatremia the sodium of 130 again near his baseline and anuptrending creatinine of 1.41 (was 1.22 a week before). Patient's has some mildlower abdominal pain and states he feels that there is a blockage in his rectum. He states he is associated rectal pain which is different than feeling raw fromwiping. States when he passes gas it helps with the pressure. He states it feels like there is a blockage in his rectum. Does have a history remotely of diverticulitis but states this feels different. Denies any fevers. Does state that 3 nights ago after taking Imodium he felt the blockage and then took 2 stool softeners. He has been having diarrhea since. States he is having at least 2-3 bowel movements a day. Sometimes more. Denies associated nausea. Came in for further evaluation of the symptoms. He was post have a repeat x-raywith his primary care doctor today but he was worried he would have incontinencefrom his diarrhea so he came to the ER instead [facility] Medical History NSVT (nonsustained ventricular [...] large intestine Diverticula of colon Home Medications ?Medication ?Instructions ?Recorded ?Last Taken ?Type pravastatin 40 mg tablet 40 mg PO QHS cholesterol 08/0112/21/21 History levothyroxine 25 mcg tablet 25 mcg PO DAILY 02/20/24 U nknown History apixaban 2.5 mg tablet 2.5 mg PO BID blood thinner #60 03/27/24 Unknown Rx tabs amlodipine 5 mg tablet 5 mg PO DAILY #90 tabs 03/31 Unknown Rx furosemide 40 mg tablet 40 mg PO Q OTHER DAY PRN maxwell ma 03/31/24 Unknown History losartan 100 mg tablet 100 mg PO QDAY 03/31/24 Unkn own History metoprolol tartrate 25 mg tablet 25 mg PO BID #180 tab s 08/18/24 Unknown Rx Allergy/AdvReac Type Severity Reaction Status Date / Time codeine AdvReac Other Verified 11/11/24 15:53 lisinopril AdvReac Other Verified 11/11/24 15:53 Family History Father CVA (cerebral vascular accident) Mother Diabetes Sister Heart disease PPM Surgical History History of appendectomy History of cataract surgery History of tonsillectomy H/O hemicolectomy Hx of cholecystectomy Social History household members: none housing: penitentiary Smoking Status: Never smoker alcohol intake: current alcohol intake frequency: holidays/special occasions only substance use type: does not use ROS ROS ED Constitutional Constitutional ED: Denies chills or fever(s) Cardiovascular Cardiovascular: Denies chest pain Respiratory/Chest Respiratory/Chest: Denies cough Gastrointestinal Gastrointestinal: Reports abdominal pain and diarrhea; Denies melena or nausea Genitourinary Genitourinary ED: Reports dysuria; Denies hematuria or urinary frequency Musculoskeletal Musculoskeletal: Denies arthralgias or myalgias Neurologic Neurologic: Denies weakness Hematologic/Lymphatic Hematologic/Lymphatic: Reports easy bleeding, easy bruising and other Details: On Eliquis EXAM Physical Exam Const Vital Signs: 11/11/24 15:49 11/11/24 17:49 11/11/24 19:00 Temperature 97.8 F Temperature Source Temporal Pulse Rate 55 L 59 L 58 L Respiratory Rate 15 16 20 H Blood Pressure 129/56 H 122/64 H 151/68 H Blood Pressure Mean 80 83 95 Pulse Ox 98 99 99 Oxygen Delivery Method Room Air Room Air 11/11/24 21:00 Temperature Temperature Source Pulse Rate Respiratory Rate 15 Blood Pressure 161/67 H Blood Pressure Mean 98 Pulse Ox 99 Oxygen Delivery Method Positive well nourished and well developed General Appearance ED: well developed and NAD; Negative for pallor HEENT Reports moist mucous membranes Eyes General Eye ED: Negative for scleral icterus Neck supple Resp normal respiratory effort and clear to auscultation bilaterally Cardio regular rate and regular rhythm GI non-distended GI Narrative: Mild tenderness in the pelvic region. No peritoneal signs. On rectal exam he has nonengorged/nonthrombosed with no bleeding external hemorrhoid. It is nontender. He does have tenderness on rectal exam and there is what feels like some stool out of my reach in the rectal vault. The stool itself is light brown. No obvious abscess or fluctuance appreciated. Auscultation: normoactive bowel sounds Palpation: soft Back/Spine no CVA tenderness Extremity full ROM Neuro Sensorium / Orientation: alert Motor Exam: Negative for general weakness Psych mental status grossly normal and thought process normal Skin no wounds General Skin Exam: Negative for jaundice or pallor MDM MDM MDM Narrative Medical decision making narrative: Patient evaluated for rectal pain, diarrhea and pelvic pain. This been going onfor a little over a week. He is having diarrhea to the point that he is having stool incontinence because he cannot makeit to the bathroom in time. Differential includes fecal impaction, colitis, diverticulitis, perirectal abscess, GI bleeding, bowel obstruction, ANISH, symptomatic anemia and electrolyteabnormality. Workup shows a mild leukocytosis of 11.4 and mild anemia hemoglobin 12.8 howeverhis baseline looks to be closer to 13.8. He was 13.2 on 10/30/2024. BMP largelywithin normal limits. He has some chronicCKD with creatinine 1.46 today. It is only minimally elevated from his baseline of 1.22. BUN is also mildly elevated at 20. Looks like his baseline is closer to 12 or 15. Rectal exam shows brown stool that is tender José appreciate any mass. He does have Hemoccult positive stool. Concern for possible occult GI bleed given slightly elevated BUN, slightly downtrending hemoglobin and he is on Eliquis. In addition CT of the abdomen pelvis does show wall thickening and surrounding fat stranding the distal rectum likely representing infectious/inflammatory colitis. With his consolation of symptoms patient started on broad-spectrum antibiotics,Flagyl and Rocephin. Will be admitted to hospital service for further treatmentand monitoring. Patient is agreeable this plan of care. Lab Data Attestation: I reviewed the patient's lab results. Labs: Laboratory Results - last 24 hr 11/11/24 18:56 WBC 11.4 H RBC 4.09 L Hgb 12.8 L Hct 36.9 L MCV 90.2 MCH 31.3 MCHC 34.7 RDW Std Deviation 43.8 RDW Coeff of Lisa 13.3 Plt Count 211 MPV 11.0 Immature Gran % (Auto) 0.600 Neut % (Auto) 81.6 H Lymph % (Auto) 8.3 L Muhlenberg % (Auto) 8.4 Eos % (Auto) 0.8 Baso % (Auto) 0.3 Absolute Neuts (auto) 9.3 H Absolute Lymphs (auto) 0.95 Nucleated RBC % 0 Sodium 136 Potassium 4.0 Chloride 102 Carbon Dioxide 23.1 Anion Gap 11 BUN 20 H Creatinine 1.46 H Est GFR (MDRD) Non-Af 46 L BUN/Creatinine Ratio 13.6 Glucose 171 H Calcium 8.8 Phosphorus 3.2 Magnesium 1.9 Total Bilirubin 2.12 H AST 24 ALT 19 Alkaline Phosphatase 142 H Total Protein 6.7 Albumin 3.7 Globulin 3.0 Albumin/Globulin Ratio 1.2 Urine Color Yellow Urine Clarity Clear Urine pH 6.0 Ur Specific [place] 1.020 Urine Protein 30 H Urine Glucose (UA) Normal Urine Ketones Negative Urine Occult Blood 25 H Urine Nitrite Negative Urine Bilirubin Negative Urine Urobilinogen 1 H Ur Leukocyte Esterase 25 H Urine RBC 0-5 SEEN Urine WBC 0-5 SEEN Ur Squamous Epith Cells 0 SEEN Urine Bacteria 0 SEEN Urine Mucus 0 SEEN Radiography Diagnostic Testing: Clinical Impression(s) from Imaging Studies Abdomen/Pelvis CT 11/11/24 18:57 IMPRESSION: 1. Wall thickening and surrounding fat stranding of the distal rectum, which likely represents infectious/inflammatory colitis. 2. Moderate pancolonic diverticulosis. Reading Location: [facility] Management Discussion w/another healthcare provider: Hospitalist Discharge Plan Dx/Rx/DC Orders Clinical Impression: Colitis, Occult GI bleeding, Current use of prison anticoagulation Disposition Disposition: Acute Care Hospital [facility] Discharge Date/Time: 11/11/24 22:55 What to do if you have Problems For any increased pain, shortness of breath, bleeding, nausea or vomiting, chestpain, or any unexpected problems, contact your Primary Care Provider. Call [facility] ([phone]) or report tothe closest Emergency Room. Call 911 if necessary. 11/12/24 1427 Cosigner Signature (if applicable): CC: Dr. Bernard Nugent MD ~ Signed [facility]06-26-2025 History and physical note Author Unique Salazar [facility] Note Date/Time November 11, 2024 10:5 3pm [facility] Medical Records Department [address] [place] [id number] H&P Exam - Hospitalist 11/11/242156 MR#: [id number] Acct: [id number] Name: ASHIA PEREZ Rep #:[id number] : 1935 89 From: Unique Salazar MD PCP: Dr. Bernard Nugent MD Status:ADM I N [facility] HPI - General General Date of Admission: 11/11/24 Date of Service: 11/11/24 Chief Complaint: Diarrhea. HPI Narrative The patient is an 89 y/o M w/ PMHx: Chronic total hyperbilirubinemia, Chronic normocytic anemia, CKD stage III unclear subtype per GFR trending, HTN, HLD, GERD, Hypothyroidism, Diabetes mellitus type II, PAF, CHEO, Hx NSVT status post pacemaker placement who presents to the [facility] ED on 11/11/2024 with history of persistent rectal discomfort with loose stools with frequent bowel movement unable to really discern the color secondary to visual impairment with recent primary care evaluation with [facility] on 10/30/2024 demonstrating fecal retention at that time with acute on chronic constipation with lab work with WBC with 11.2 and mild hyponatremia near his baseline with some mild renal insufficiency however patient has had some ongoing mild lower abdominal discomfort and feels as though his rectum is raw from wiping with symptom improvement when he has flatus with no recent fevers or chills with selfadministration of Imodium however he felt as though he was becoming more constipated with the Imodium prompting stool softener administration with loose stool since at least 2-3 daily sometimes more with associated nausea with no emesis prompting eventual ED evaluation to be cautious. He does report some generalized abdominal cramping but no specific pain. Workup in the ED included T97.8 Temporal, heart 55, BP 129/56, respiratory rate 15, 98% on room air with most recent repeat vitals heart rate 58, BP 161/67, respiratory rate 15, 99% on room air, CBC with WBC 11.4, hemoglobin 12.8, MCV 90.2, platelet 211 with left shift, CMP with BUN/creatinine 20/1.46, GFR 46, glucose 171, T. bili 2.12, AST/LT 24/19, alk phos 142, urinalysis with specific Robley 1.020, protein 30, occult blood 25, negative nitrite, leukocyte Estrace 25 with no marked evidence of urine tract infection, CT abdomen and pelvis with wall thickening and surrounding fat stranding of the distal rectum likely infectious/inflammatory colitis with moderate pancolonic diverticulosis. In the ED patient ministered Rocephin 1 g IV x 1 and Flagyl 5 mg IV x 1. [facility] Medical History NSVT (nonsustained ventricular tachycardia) Aortic [...] large intestine Diverticula of colon Home Medications ?Medication ?Instructions ?Recorded ?Last Taken ?Type pravastatin 40 mg tablet 40 mg PO QHS cholesterol 08/0112/21/21 History levothyroxine 25 mcg tablet 25 mcg PO DAILY 02/20/24 U nknown History apixaban 2.5 mg tablet 2.5 mg PO BID blood thinner #60 03/27/24 Unknown Rx tabs amlodipine 5 mg tablet 5 mg PO DAILY #90 tabs 03/31 Unknown Rx furosemide 40 mg tablet 40 mg PO Q OTHER DAY PRN maxwell ma 03/31/24 Unknown History losartan 100 mg tablet 100 mg PO QDAY 03/31/24 Unkn own History metoprolol tartrate 25 mg tablet 25 mg PO BID #180 tab s 08/18/24 Unknown Rx Allergy/AdvReac Type Severity Reaction Status Date / Time codeine AdvReac Other Verified 11/11/24 15:53 lisinopril AdvReac Other Verified 11/11/24 15:53 Family History Father CVA (cerebral vascular accident) Mother Diabetes Sister Heart disease PPM Surgical History History of appendectomy History of cataract surgery History of tonsillectomy H/O hemicolectomy Hx of cholecystectomy Social History household members: none housing: penitentiary Smoking Status: Never smoker alcohol intake: current alcohol intake frequency: holidays/special occasions only substance use type: does not use ROS ROS Narrative Admission Review of Systems: CONSTITUTIONAL: No weight loss, fever, chills, + weakness or fatigue. HEENT: Eyes: No visual loss, blurred vision, double vision or yellow sclerae. Ears, Nose, Throat: No hearing loss, sneezing, congestion, runny nose or sore throat. SKIN: No rash or itching, lesions, wounds. CARDIOVASCULAR: No chest pain, chest pressure or chest discomfort, palpitations,edema, orthopnea, syncopal events. RESPIRATORY: No shortness of breath, cough or sputum, wheezing, hemoptysis. GASTROINTESTINAL: + anorexia, nausea without emesis, vacillating constipation diarrhea, abdominal cramping, rectal pain. No melena, BRBPR. GENITOURINARY: No dysuria, frequency, urgency or retention. NEUROLOGICAL: No headache, dizziness, syncope, paralysis, ataxia, numbness or tingling in the extremities, focal weakness, change in bowel or bladder control,seizure. MUSCULOSKELETAL: + muscle, back pain, joint pain or stiffness. HEMATOLOGIC: + Chronic anemia, easy bleeding/bruising. LYMPHATICS: No enlarged nodes. No history of splenectomy. PSYCHIATRIC: No history of depression or anxiety. ENDOCRINOLOGIC: No reports of sweating, cold or heat intolerance. No polyuria orpolydipsia. ALLERGIES: No history of asthma, hives, eczema or rhinitis. Vital Signs Vital Signs Vital Signs: 11/11/24 15:49 11/11/24 17:49 11/11/24 19:00 Temperature 97.8 F Temperature Source Temporal Pulse Rate 55 L 59 L 58 L Respiratory Rate 15 16 20 H Blood Pressure 129/56 H 122/64 H 151/68 H Blood Pressure Mean 80 83 95 Pulse Ox 98 99 99 Oxygen Delivery Method Room Air Room Air 11/11/24 21:00 Temperature Temperature Source Pulse Rate Respiratory Rate 15 Blood Pressure 161/67 H Blood Pressure Mean 98 Pulse Ox 99 Oxygen Delivery Method Physical Exam Narrative Physical Examination: General: Awake, alert, oriented x 3 and cooperative, seated upright in the ED bed, denies any marked pain or discomfort at this time. Skin: Normal color, normal turgor, no icterus, no cyanosis except occasional stage ecchymoses, abrasion, notable bilateral lower extremity venous stasis skinchanges. HEENT: AT/NC, EOMI, PERRLA, mildly dry MM, no carotid bruits or JVD noted. Lungs: Mildly diminished, greater bases, poor effort, no rales, ronchi or wheezing. Heart: Mildly bradycardic with regular rhythm; no gallop, rub audible. Abdomen: Soft, overweight, NTTP, hyperactive bowel sounds, no obvious evidence of distention or tympany, no appreciated HSM. Extremities: No cyanosis, no clubbing, see skin, chronic bilateral lower extremity pedal to mid cullen edema with as noted significant venous stasis disease noted to be stable per patient. Neurological: Patient awake, alert, oriented as noted, cognitive function intact; pupils equally reactive to light and accommodation, cranial nerves grossnormal, moving all 4 extremities, no focal deficits, strength moderately to severely globally decreased secondary to acute presentation complaints. Psychiatric: Affect appears mildly flat, fatigued, no acute evidence of depressive or anxiety feelings. Results Lab / Micro Data 11/11/24 18:56 11/11/24 18:56 Labs: Laboratory Results - last 24 hr 11/11/24 18:56: WBC 11.4 H, RBC 4.09 L, Hgb 12.8 L, Hct 36.9 L, MCV 90.2, MCH 31.3, MCHC 34.7, RDW Std Deviation 43.8, RDW Coeff of Lisa 13.3, Plt Count 211, MPV 11.0, Immature Gran % (Auto) 0.600, Neut % (Auto) 81.6 H, Lymph % (Auto) 8.3L, Muhlenberg % (Auto) 8.4, Eos % (Auto) 0.8, Baso % (Auto) 0.3, Absolute Neuts (auto)9.3 H, Absolute Lymphs (auto) 0.95, Nucleated RBC % 0, Sodium 136, Potassium 4.0, Chloride 102, Carbon Dioxide 23.1, Anion Gap 11, BUN 20 H, Creatinine 1.46 H, Est GFR (MDRD) Non-Af 46 L, BUN/Creatinine Ratio 13.6, Glucose 171 H, Calcium8.8, Total Bilirubin 2.12 H, AST 24, ALT 19, Alkaline Phosphatase 142 H, Total Protein 6.7, Albumin 3.7, Globulin 3.0, Albumin/Globulin Ratio 1.2, Urine Color Yellow, Urine Clarity Clear, Urine pH 6.0, Ur Specific [place] 1.020, Urine Protein 30 H, Urine Glucose (UA) Normal, Urine Ketones Negative, Urine Occult Blood 25 H, Urine Nitrite Negative, Urine Bilirubin Negative, Urine Urobilinogen1 H, Ur Leukocyte Esterase 25 H, Urine RBC 0-5 SEEN, Urine WBC 0-5 SEEN, Ur Squamous Epith Cells 0 SEEN, Urine Bacteria 0 SEEN, Urine Mucus 0 SEEN Micro: Microbiology 11/11/24 18:56 Stool Stool Occult Blood (CHERRY) - Final Occult Blood Positive Imaging Radiology Impression Abdomen/Pelvis CT 11/11/24 18:57 IMPRESSION: 1. Wall thickening and surrounding fat stranding of the distal rectum, which likely represents infectious/inflammatory colitis. 2. Moderate pancolonic diverticulosis. Reading Location: [facility] Assessment & Plan Assessment/Plan (1) Colitis: PLAN: Plan The patient is an 89 y/o M w/ PMHx: Chronic total hyperbilirubinemia, Chronic normocytic anemia, CKD stage III unclear subtype per GFR trending, HTN, HLD, GERD, Hypothyroidism, Diabetes mellitus type II, PAF, CHEO, Hx NSVT status post pacemaker placement who presents to the [facility] ED on 11/11/2024 with history of persistent rectal discomfort with loose stools with frequent bowel movement unable to really discern the color secondary to visual impairment with recent primary care evaluation with [facility] on 10/30/2024 demonstrating fecal retention at that time with acute on chronic constipation with lab work with WBC with 11.2 and mild hyponatremia near his baseline with some mild renal insufficiency however patient has had some ongoing mild lower abdominal discomfort and feels as though his rectum is raw from wiping with symptom improvement when he has flatus with no recent fevers or chills with selfadministration of Imodium however he felt as though he was becoming more constipated with the Imodium prompting stool softener administration with loose stool since at least 2-3 daily sometimes more with associated nausea with no emesis prompting eventual ED evaluation to be cautious. #1. Acute colitis, suspect infectious, possibly viral with recent issues with intermittent constipation and now diarrhea status post recent self administration of bowel regimen: Will admit to medical surgical floor, maintain on judicious hydration, monitor I&Os, allow clears as long as abdominal discomfort is lessened, maintain on IV PPI, will have pain regimen antiemetic regimen, will obtain C. difficile and enteric pathogen be cautious, will initiate on IV Zosyn therapy pending further workup, procalcitonin requested, will judiciously use preparation H supp for rectal discomfort x trial of 6 doses. PT/OT/case management consulted for discharge planning. If not improving may consider GI involvement. #2. Nonsustained VT: Status post pacemaker placement, following with cardiology, per most recent cardiology note noted 03/31/2024 has had various alterations to his metoprolol dosing, encourage continued follow-up with cardiology as previously arranged. #3. PAF: Will continue patient home Eliquis and metoprolol regimen with hold parameters as needed. #4. Chronic Kidney Disease Stage III, unclear subtype per GFR trend: Admission BUN/Cr 20/1.46, GFR 46, baseline renal function primarily 1.2-1.4, stable, repeat BMP in AM, per record following with pricing specialist Dr. Shaila Haq. #5. Chronic normocytic anemia: Admission hemoglobin 12.8, MCV 90.2, baseline hemoglobin vacillates from mid 12-13 range primarily, continue to trend #6. Chronic total hyperbilirubinemia, unclear specific etiology: Admission CMP with total bilirubin 2.12, AST/LT 24/, alk phos 142, stable compared to previous baseline, continue to trend. #7. Diabetes mellitus type II: Hold oral home regimen, given presentation will temporally maintain on clears with advance diet as tolerated ADA diet once appropriate, maintain on accu checks w/ ISS. #8. Known aortic aneurysm without rupture: Following with cardiology, last visit as noted 03/31/2024, continue hypertensive regimen with alteration temporarily as noted. #9. Hypertension: Will continue patient home metoprolol, losartan, amlodipine with hold parameters as needed, temporally holding diuretic given recent GI losses, add back once appropriate, as needed IV hydralazine. #10. Hypothyroidism: Will continue patient on levothyroxine regimen. #11. Hyperlipidemia: Continue patient on statin therapy. #12. GERD: Will maintain on IV PPI until improving as noted above. #13. CHEO: Given noted nausea will hold CPAP until resolved. #14. DVT prophylaxis: Will continue patient on apixaban regimen. #15. CODE status: Patient JANNA is his daughter and living will is currently inplace. Discussed CODE status at length including difference between FULL code, DNR-CCA and DNR-CC status. Following discussions about the differences in these status, requested DNR-CCA with intubation following several examples. Advanced Care Planning Face to Face Time: 16 minutes. Charges/Coding Visit Charges Inpatient E&M: 81940 Init Hosp L3 Procedures Hospitalists Procedures: 15478 Advncd Care Plan 30 Min 11/11/24 8490 <Electronically signed by Unique Salazar MD> Cosigner Signature (if applicable): CC: Dr. Unique Salazar MD; Dr. Bernard Nugent MD~ Signed [facility] Work Phone: 1(124) 639-430406-26-2025 Evaluation note* Diagnosis Onset Date Resolution Status Admit Date Colitis acute November 11 10:26pm Occult GI bleeding acute October 192024 10:26pm [facility] Work Phone: 1(650) 899-230406-26-2025 Evaluation note* Diagnosis Onset Date Resolution Status Admit Date Occult GI bleeding inactive October 192024 10:26pm Colitis deleted November 11 10:26pm [facility] Work Phone: 1(292) 155-198406-26-2025 Evaluation note* Diagnosis Onset Date Resolution Status Admit Date Occult GI bleeding inactive October 192024 10:26pm Colitis deleted November 11 10:26pm Abnormal findings on imaging test acute November 26, 2024 11:02am Rectal pain acute November 26 11:02am Diarrhea resolved November 26 11:02am Acute urinary retention acute J sharon 2024 3:45pm Chronic diarrhea chronic November 3:45pm [facility] Work Phone: 1(540) 939-121706-25-2025 History and physical note [facility] Medical Records Department [address] [place] [address] H&P Exam - Hospitalist 11/11/242156 MR#: [id number] Acct: [id number] Name: ASHIA PEREZ Rep #:[id number] : 1935 89 From: Unique Salazar MD PCP: Dr. Bernard Nugent MD Status:ADM I N Location: [place] [address]-1 HPI - General General Date of Admission: 11/11/24 Date of Service: 11/11/24 Chief Complaint: Diarrhea. HPI Narrative The patient is an 89 y/o M w/ PMHx: Chronic total hyperbilirubinemia, Chronic normocytic anemia, CKD stage III unclear subtype per GFR trending, HTN, HLD, GERD, Hypothyroidism, Diabetes mellitus typeII, PAF, CHEO, Hx NSVT status post pacemaker placement who presents to the [facility] ED on 11/11/2024 with history of persistent rectal discomfort with loose stools with frequent bowelmovement unable to really discern the color secondary to visual impairment with recent primary careevaluation with [facility] on 10/30/2024 demonstrating fecal retention at that time with acute on chronic constipation with lab work with WBC with 11.2 and mild hyponatremia near his baseline with some mild renal insufficiency however patient has had some ongoing mild lower abdominal discomfort and feels as though his rectum is raw from wiping with symptom improvement when he has flatus with no recent fevers or chills with selfadministration of Imodium however he felt as though he was becoming more constipated with the Imodium prompting stool softener administration with loose stool since at least 2-3 daily sometimes more with associated nausea with no emesis prompting eventual ED evaluation to be cautious. He does report some generalized abdominal cramping but no specific pain. Workup in the ED included T97.8 Temporal, heart 55, BP 129/56, respiratory rate 15, 98% on room air with most recent repeat vitals heart rate 58, BP 161/67, respiratory rate 15, 99% on room air, CBC with WBC 11.4, hemoglobin 12.8, MCV 90.2, platelet 211 with left shift, CMP with BUN/creatinine 20/1.46, GFR 46, glucose 171, T. bili 2.12, AST/LT 24/19, alk phos 142, urinalysis with specific Robley 1.020, protein 30, occult blood 25, negative nitrite, leukocyte Estrace 25 with no marked evidence of urine tract infection, CT abdomen and pelvis with wall thickening and surrounding fat stranding of the distal rectumlikely infectious/inflammatory colitis with moderate pancolonic diverticulosis. In the ED patient ministered Rocephin 1 g IV x 1 and Flagyl 5 mg IV x 1. [facility] Medical History NSVT (nonsustained ventricular tachycardia) Aortic [...] large intestine Diverticula of colon Home Medications ?Medication ?Instructions ?Recorded ?Last Taken ?Type pravastatin 40 mg tablet 40 mg PO QHS cholesterol 08/0112/21/21 History levothyroxine 25 mcg tablet 25 mcg PO DAILY 02/20/24 U nknown History apixaban 2.5 mg tablet 2.5 mg PO BID blood thinner #60 03/27/24 Unknown Rx tabs amlodipine 5 mg tablet 5 mg PO DAILY #90 tabs 03/31 Unknown Rx furosemide 40 mg tablet 40 mg PO Q OTHER DAY PRN maxwell ma 03/31/24 Unknown History losartan 100 mg tablet 100 mg PO QDAY 03/31/24 Unkn own History metoprolol tartrate 25 mg tablet 25 mg PO BID #180 tab s 08/18/24 Unknown Rx Allergy/AdvReac Type Severity Reaction Status Date / Time codeine AdvReac Other Verified 11/11/24 15:53 lisinopril AdvReac Other Verified 11/11/24 15:53 Family History Father CVA (cerebral vascular accident) Mother Diabetes Sister Heart disease PPM Surgical History History of appendectomy History of cataract surgery History of tonsillectomy H/O hemicolectomy Hx of cholecystectomy Social History household members: none housing: penitentiary Smoking Status: Never smoker alcohol intake: current alcohol intake frequency: holidays/special occasions only substance use type: does not use ROS ROS Narrative Admission Review of Systems: CONSTITUTIONAL: No weight loss, fever, chills, + weakness or fatigue. HEENT: Eyes: No visual loss, blurred vision, double vision or yellow sclerae. Ears, Nose, Throat: No hearing loss, sneezing, congestion, runny nose or sore throat. SKIN: No rash or itching, lesions, wounds. CARDIOVASCULAR: No chest pain, chest pressure or chest discomfort, palpitations,edema, orthopnea, syncopal events. RESPIRATORY: No shortness of breath, cough or sputum, wheezing, hemoptysis. GASTROINTESTINAL: + anorexia, nausea without emesis, vacillating constipation diarrhea, abdominal cramping, rectal pain. No melena, BRBPR. GENITOURINARY: No dysuria, frequency, urgency or retention. NEUROLOGICAL: No headache, dizziness, syncope, paralysis, ataxia, numbness or tingling in the extremities, focal weakness, change in bowel or bladder control,seizure. MUSCULOSKELETAL: + muscle, back pain, joint pain or stiffness. HEMATOLOGIC: + Chronic anemia, easy bleeding/bruising. LYMPHATICS: No enlarged nodes. No history of splenectomy. PSYCHIATRIC: No history of depression or anxiety. ENDOCRINOLOGIC: No reports of sweating, cold or heat intolerance. No polyuria orpolydipsia. ALLERGIES: No history of asthma, hives, eczema or rhinitis. Vital Signs Vital Signs Vital Signs: 11/11/24 15:49 11/11/24 17:49 11/11/24 19:00 Temperature 97.8 F Temperature Source Temporal Pulse Rate 55 L 59 L 58 L Respiratory Rate 15 16 20 H Blood Pressure 129/56 H 122/64 H 151/68 H Blood Pressure Mean 80 83 95 Pulse Ox 98 99 99 Oxygen Delivery Method Room Air Room Air 11/11/24 21:00 Temperature Temperature Source Pulse Rate Respiratory Rate 15 Blood Pressure 161/67 H Blood Pressure Mean 98 Pulse Ox 99 Oxygen Delivery Method Physical Exam Narrative Physical Examination: General: Awake, alert, oriented x 3 and cooperative, seated upright in the ED bed, denies any marked pain or discomfort at this time. Skin: Normal color, normal turgor, no icterus, no cyanosis except occasional stage ecchymoses, abrasion, notable bilateral lower extremity venous stasis skinchanges. HEENT: AT/NC, EOMI, PERRLA, mildly dry MM, no carotid bruits or JVD noted. Lungs: Mildly diminished, greater bases, poor effort, no rales, ronchi or wheezing. Heart: Mildly bradycardic with regular rhythm; no gallop, rub audible. Abdomen: Soft, overweight, NTTP, hyperactive bowel sounds, no obvious evidence of distention or tympany, no appreciated HSM. Extremities: No cyanosis, no clubbing, see skin, chronic bilateral lower extremity pedal to mid cullen edema with as noted significant venous stasis disease noted to be stable per patient. Neurological: Patient awake, alert, oriented as noted, cognitive function intact; pupils equally reactive to light and accommodation, cranial nerves grossnormal, moving all 4 extremities, no focal deficits, strength moderately to severely globally decreased secondary to acute presentation complaints. Psychiatric: Affect appears mildly flat, fatigued, no acute evidence of depressive or anxiety feelings. Results Lab / Micro Data 11/11/24 18:56 11/11/24 18:56 Labs: Laboratory Results - last 24 hr 11/11/24 18:56: WBC 11.4 H, RBC 4.09 L, Hgb 12.8 L, Hct 36.9 L, MCV 90.2, MCH 31.3, MCHC 34.7, RDW Std Deviation 43.8, RDW Coeff of Lisa 13.3, Plt Count 211, MPV 11.0, Immature Gran % (Auto) 0.600, Neut % (Auto) 81.6 H, Lymph % (Auto) 8.3L, Muhlenberg % (Auto) 8.4, Eos % (Auto) 0.8, Baso % (Auto) 0.3, Absolute Neuts (auto)9.3 H, Absolute Lymphs (auto) 0.95, Nucleated RBC % 0, Sodium 136, Potassium 4.0, Chloride 102, Carbon Dioxide 23.1, Anion Gap 11, BUN 20 H, Creatinine 1.46 H, Est GFR (MDRD) Non-Af 46 L, BUN/Creatinine Ratio 13.6, Glucose 171 H, Calcium8.8, Total Bilirubin 2.12 H, AST 24, ALT 19, Alkaline Phosphatase 142 H, Total Protein 6.7, Albumin 3.7, Globulin 3.0, Albumin/Globulin Ratio 1.2, Urine Color Yellow, Urine Clarity Clear, Urine pH 6.0, Ur Specific Henlawson 1.020, Urine Protein 30H, Urine Glucose (UA) Normal, Urine Ketones Negative, Urine Occult Blood 25 H, Urine Nitrite Negative, Urine Bilirubin Negative, Urine Urobilinogen1 H, Ur Leukocyte Esterase 25 H, Urine RBC 0-5 SEEN,Urine WBC 0-5 SEEN, Ur Squamous Epith Cells 0 SEEN, Urine Bacteria 0 SEEN, Urine Mucus 0 SEEN Micro: Microbiology 11/11/24 18:56 Stool Stool Occult Blood (CHERRY) - Final Occult Blood Positive Imaging Radiology Impression Abdomen/Pelvis CT 11/11/24 18:57 IMPRESSION: 1. Wall thickening and surrounding fat stranding of the distal rectum, which likely represents infectious/inflammatory colitis. 2. Moderate pancolonic diverticulosis. Reading Location: [facility] Assessment & Plan Assessment/Plan (1) Colitis: PLAN: Plan The patient is an 89 y/o M w/ PMHx: Chronic total hyperbilirubinemia, Chronic normocytic anemia, CKD stage III unclear subtype per GFR trending, HTN, HLD, GERD, Hypothyroidism, Diabetes mellitus typeII, PAF, CHEO, Hx NSVT status post pacemaker placement who presents to the [facility] ED on 11/11/2024 with history of persistent rectal discomfort with loose stools with frequent bowelmovement unable to really discern the color secondary to visual impairment with recent primary careevaluation with KUB on 10/30/2024 demonstrating fecal retention at that time with acute on chronic constipation with lab work with WBC with 11.2 and mild hyponatremia near his baseline with some mild renal insufficiency however patient has had some ongoing mild lower abdominal discomfort and feels as though his rectum is raw from wiping with symptom improvement when he has flatus with no recent fevers or chills with selfadministration of Imodium however he felt as though he was becoming more constipated with the Imodium prompting stool softener administration with loose stool since at least 2-3 daily sometimes more with associated nausea with no emesis prompting eventual ED evaluation to be cautious. #1. Acute colitis, suspect infectious, possibly viral with recent issues with intermittent constipation and now diarrhea status post recent self administration of bowel regimen: Will admit to medicalsurgical floor, maintain on judicious hydration, monitor I&Os, allow clears as long as abdominal discomfort is lessened, maintain on IV PPI, will have pain regimen antiemetic regimen, will obtainC. difficile and enteric pathogen be cautious, will initiate on IV Zosyn therapy pending further workup, procalcitonin requested, will judiciously use preparation H supp for rectal discomfort x trialof 6 doses. PT/OT/case management consulted for discharge planning. If not improving may consider GI involvement. #2. Nonsustained VT: Status post pacemaker placement, following with cardiology, per most recent cardiology note noted 03/31/2024 has had various alterations to his metoprolol dosing, encourage continued follow-up with cardiology as previously arranged. #3. PAF: Will continue patient home Eliquis and metoprolol regimen with hold parameters as needed. #4. Chronic Kidney Disease Stage III, unclear subtype per GFR trend: Admission BUN/Cr 20/1.46, GFR 46, baseline renal function primarily 1.2-1.4, stable, repeat BMP in AM, per record following with pricing specialist Dr. Shaila Haq. #5. Chronic normocytic anemia: Admission hemoglobin 12.8, MCV 90.2, baseline hemoglobin vacillates from mid 12-13 range primarily, continue to trend #6. Chronic total hyperbilirubinemia, unclear specific etiology: Admission CMP with total bilirubin2.12, AST/LT 24/19, alk phos 142, stable compared to previous baseline, continue to trend. #7. Diabetes mellitus type II: Hold oral home regimen, given presentation will temporally maintain on clears with advance diet as tolerated ADA diet once appropriate, maintain on accu checks w/ ISS. #8. Known aortic aneurysm without rupture: Following with cardiology, last visit as noted 03/31/2024, continue hypertensive regimen with alteration temporarily as noted. #9. Hypertension: Will continue patient home metoprolol, losartan, amlodipine with hold parameters as needed, temporally holding diuretic given recent GI losses, add back once appropriate, as needed IV hydralazine. #10. Hypothyroidism: Will continue patient on levothyroxine regimen. #11. Hyperlipidemia: Continue patient on statin therapy. #12. GERD: Will maintain on IV PPI until improving as noted above. #13. CHEO: Given noted nausea will hold CPAP until resolved. #14. DVT prophylaxis: Will continue patient on apixaban regimen. #15. CODE status: Patient JANNA is his daughter and living will is currently inplace. Discussed CODE status at length including difference between FULL code, DNR-CCA and DNR-CC status. Following discussions about the differences in these status, requested DNR-CCA with intubation following several examples. Advanced Care Planning Face to Face Time: 16 minutes. Charges/Coding Visit Charges Inpatient E&M: 12766 Init Hosp L3 Procedures Hospitalists Procedures: 31843 Advncd Care Plan 30 Min 11/11/24 9346 Cosigner Signature (if applicable): CC: Dr. Unique Salazar MD; Dr. Bernard Nugent MD~ Signed [facility]06-25-2025 Radiology Diagnostic study note [facility] Imaging Services [address] [place], [place] [id number] Abdomen/Pelvis W IV Cont ONLY MR#: [id number] Acct: [id number] Name: ASHIA PEREZ Rep #: [id number] : 1935 M 89 From: Sherri Real MD PCP: Dr. Bernard Nugent MD Status: REG E R Study:Abdomen/Pelvis W IV Cont ONLY Date of E xam: 11/11/24 Exam# [id number] Ordering Dr: Jean Paul Panda DO PROCEDURE: ABDOMEN/PELVIS W IV CONT ONLY 11/11/2024 REASON FOR EXAM: DIARRHEA, PELVIC PAIN TECHNIQUE: ABDOMEN/PELVIS W IV CONT ONLY Coronal and Sagittal reconstruction series were provided. CONTRAST: Isovue 370 VOLUME: 100 mL One or more dose reduction techniques were used (e.g., Automated exposure control, adjustment of the mA and/or kV according to patient size, use of iterative reconstruction technique. RADIATION DOSE SUMMARY: DLP: 1300 mGycm COMPARISON: CT abdomen pelvis 05/22/2018. FINDINGS: Lung bases: Partially visualized ICD pacer wires. Mild cardiomegaly. Bibasilaratelectasis. Liver: The liver is normal in size with scattered hypodensities, likely cysts. The major portal veins are patent. No biliary ductal dilation. Gallbladder: Prior cholecystectomy. Spleen: Normal in size. Pancreas: Mildly atrophic. Adrenals: Left adrenal mass measuring 2.2 cm (series 2, image 38). No right adrenal mass. Kidneys: Moderate symmetric renal cortical scarring. Bilateral renal cysts and additional hypodensities. No hydronephrosis or nephrolithiasis. Bladder: Moderately distended and unremarkable. Reproductive Organs: Markedly enlarged prostate which indents the bladder base. Bowel: Prior bowel resection and anastomosis within the left lower quadrant. The bowel loops are nondilated. Moderate wall thickening and surrounding fat stranding of the distal rectum with retained fecal material. Trace lower pelvic ascites. No pneumoperitoneum. Moderate pancolonic diverticulosis. Prior appendectomy. Lymph nodes: No suspicious lymph node enlargement. Vasculature: Ectasia of the aortoiliac vessels with severe mixed calcific plaque. Bones/soft tissues: Moderate size bilateral inguinal hernias containing fat and trace fluid. Thoracolumbar spondylosis. Soft tissue nodule just superior to with likely communication with the pubic symphysis (series 2, image 106) measuring 2.[address]/Abdomen/Pelvis W IV Cont ONLY IMPRESSION: 1. Wall thickening and surrounding fat stranding of the distal rectum, which likely represents infectious/inflammatory colitis. 2. Moderate pancolonic diverticulosis. Reading Location: [facility] CC: Dr. Bhavya Panda DO; Dr. Bernard Nugent MD ~ [employer]: Signed [facility]06-13-2025 Radiology Diagnostic study note [facility] Imaging Services [address], [place] [id number] Abdomen Single View MR#: [id number] Acct: [id number] Name: ASHIA PEREZ Rep #: [id number] : 1935 M 89 From: Magalis Judge MD PCP: Dr. Bernard Nugent MD Status: [facility] Study:Abdomen Single View Date of Exam: 10/30/24 Exam# [id number] Ordering Dr: Bernard Nugent MD EXAM: XR Abdomen, 1 View CLINICAL INDICATION: DIARRHEA TECHNIQUE: Frontal supine view of the abdomen/pelvis. COMPARISON: No relevant prior studies available. FINDINGS: GASTROINTESTINAL TRACT: Fecal retention in the colon consistent with constipation. No dilation. BONES/JOINTS: Unremarkable. No acute fracture. RAD/Abdomen Single View IMPRESSION: Fecal retention in the colon consistent with constipation. Reading Location: [facility] CC: Dr. Bernard Nugent MD ~ [employer]: Signed [facility]11-12-2024 Evaluation note* Diagnosis Onset Date Resolution Status Admit Date Aortic aneurysm without rupture acute March 31 11:10am NSVT (nonsustained ventricul ar tachycardia) acute March 31 11:10am Status post cardiac pacemake r procedure acute March 31 11:10am Essential (primary) hypertension chronic March 31 11:10am Longstanding persistent atri al fibrillation chronic March 31 11:10am [facility] Work Phone: 1(195) 688-128211-05-2023 Discharge summary Author Raghu Acosta [facility] March 24, 2023 12:17pm Note Date/Time March 24, 2023 1 0:19am [facility] Medical Records Department [address] [place] [address] Emergency Department Summary 03/24/23 MR#: [id number] Acct: [id number] Name: ASHIA PEREZ Rep #:[id number] : 1935 87 From: Raghu Acosta DO [...] He is on glimepiride. No recent changes. [facility] Medical History Atrial fibrillation Chronic [...] (1,000 unit) capsule 25 mcg PO DAILY /07/22 [History Last Taken Unknown] tamsulosin 0.4 mg [...] 82.0 H Lymph % (Auto) 9.1 L Muhlenberg % (Auto) 6.9 Eos % (Auto) 1.0 [...] Clarity Clear Urine pH 7.0 Ur Specific Henlawson 1.010 Urine Protein 15 H Urine Glucose [...] your Primary Care Provider. Call [facility] ([phone]) or report to the closest Emergency Room. Call 911 if necessary. 03/24/23 1217 <Electronically signed by Raghu Acosta DO> Cosigner Signature (if applicable): CC: Dr. Bernard Nugent MD ~ Signed [facility] Work Phone: 1(357) 978-414005-09-[address] Tobias [facility] September 25, 2022 8:04am Note Date/Time September 25, 2022 8:04am [facility] Medical Records Department [address] [place] [address] [place] [address] Instructions for Home/Discharge Instructions 09/25/22802 MR#: [id number] Acct: [id number] Name: ASHIA PEREZ Rep #:[id number] : 1935 86 From: Rodolfo Tobias MD [...] CC: Dr. Bernard Nugent MD ~ Signed [facility] Work Phone: 1(893) 569-844205-09-[address] Tobias [facility] September 25, 2022 8:01am Note Date/Time September 25, 2022 8:01am [facility] Medical Records Department [address] [place] [id number] Progress Note - Cardiology 09/25/22 08 MR#: [id number] Acct: [id number] Name: ASHIA PEREZ Rep #:[id number] : 1935 86 From: Rodolfo Tobias MD PCP: Dr. Bernard Nugent MD Status:REG S DC Location: [place] [address] Subjective Subjective Patient seen and evaluated. Appears [...] Cosigner Signature (if applicable): CC: ~ Signed [facility] Work Phone: Evaluation note* Diagnosis Onset Date Resolution Status Closed head injury acute Fall acute Hypokalemia acute Hyponatremia acute Syncope and collapse acute Weakness acute [facility] Work Phone: Evaluation note* Diagnosis Onset Date Resolution Status Hyponatremia acute Weakness acute Hypokalemia resolved [facility] Work Phone: Evaluation note* Diagnosis Onset Date Resolution Status Hyponatremia acute Weakness acute Hypokalemia resolved Essential (primary) hypertension chronic Hyperlipidemia chronic Longstanding persistent atrial fibrillation chronic [facility] Work Phone: Evaluation note* Diagnosis Onset Date Resolution Status Hyponatremia acute Weakness acute Hypokalemia resolved Essential (primary) hypertension chronic Hyperlipidemia chronic Longstanding persistent atrial fibrillation chronic Bradycardia acute History of acute heart failure acute Junctional rhythm acute SOB (shortness of breath) on exertion acute Symptomatic bradycardia acut e Chronic renal insufficiency, stage III (moderate) chronic [facility] Work Phone: Evaluation note* Diagnosis Onset [...] Hyperlipidemia chronic Longstanding persistent atrial fibrillation chronic [facility] Work Phone: Evaluation note* Diagnosis Onset Date Resolution Status Hyponatremia acute Weakness acute Hypokalemia resolved Bradycardia resolved Junctional rhythm resolved SOB (shortness of breath) on exertion resolved [facility] Work Phone: Evaluation note* Diagnosis Onset Date Resolution Status Bradycardia resolved Junctional rhythm resolved SOB (shortness of breath) on exertion resolved Breast mass, left acute [facility] Work Phone: Evaluation note* Diagnosis Onset Date Resolution Status Essential (primary) hypertension chronic Longstanding persistent atrial fibrillation chronic [facility] Work Phone: Evaluation note* Diagnosis Onset Date Resolution Status Essential (primary) hypertension chronic Longstanding persistent atrial fibrillation chronic Essential (primary) hypertension chronic Longstanding persistent atrial fibrillation chronic Status post cardiac pacemaker procedure acute Longstanding persistent atrial fibrillation chronic [facility] Work Phone: Evaluation note* Diagnosis Onset [...] 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 [facility] Work Phone: Evaluation note* Diagnosis Onset [...] 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 [facility] Work Phone: Evaluation note* Diagnosis Onset [...] hypertension chronic Longstanding persistent atrial fibrillation chronic [facility] Work Phone: Evaluation note* Diagnosis Onset Date Resolution Status Essential (primary) hypertension chronic Longstanding persistent atrial fibrillation chronic Bradycardia acute 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 Longstanding persistent atrial fibrillation [facility] Work Phone: evaluation noteNo assessment information available [facility] Work Phone: Evaluation note* Diagnosis Onset Date Resolution Status Aortic aneurysm without rupture acute NSVT (nonsustained ventricular tachycardia) acute Essential (primary) hypertension chronic Longstanding persistent atrial fibrillation chronic [facility] Work Phone: Evaluation note* Diagnosis Onset Date Resolution Status Admit Date Colitis acute November 11 10:26pm [facility] Work Phone: History and physical note Author Unique Salazar [facility] Note Date/Time November 11, 2024 10:5 3pm [facility] Medical Records Department [address] [place] [address] H&P Exam - Hospitalist 11/11/242156 MR#: [id number] Acct: [id number] Name: ASHIA PEREZ Rep #:[id number] : 1935 89 From: Unique Salazar MD PCP: Dr. Bernard Nugent MD Status:ADM I N Location: [facility] [place] [facility] [id number] HPI - General General Date of Admission: 11/11/24 Date of Service: 11/11/24 Chief Complaint: Diarrhea. HPI Narrative The patient is an 89 y/o M w/ PMHx: Chronic total hyperbilirubinemia, Chronic normocytic anemia, CKD stage III unclear subtype per GFR trending, HTN, HLD, GERD, Hypothyroidism, Diabetes mellitus type II, PAF, CHEO, Hx NSVT status post pacemaker placement who presents to the [facility] ED on 11/11/2024 with history of persistent rectal discomfort with loose stools with frequent bowel movement unable to really discern the color secondary to visual impairment with recent primary care evaluation with [facility] on 10/30/2024 demonstrating fecal retention at that time with acute on chronic constipation with lab work with WBC with 11.2 and mild hyponatremia near his baseline with some mild renal insufficiency however patient has had some ongoing mild lower abdominal discomfort and feels as though his rectum is raw from wiping with symptom improvement when he has flatus with no recent fevers or chills with selfadministration of Imodium however he felt as though he was becoming more constipated with the Imodium prompting stool softener administration with loose stool since at least 2-3 daily sometimes more with associated nausea with no emesis prompting eventual ED evaluation to be cautious. He does report some generalized abdominal cramping but no specific pain. Workup in the ED included T97.8 Temporal, heart 55, BP 129/56, respiratory rate 15, 98% on room air with most recent repeat vitals heart rate 58, BP 161/67, respiratory rate 15, 99% on room air, CBC with WBC 11.4, hemoglobin 12.8, MCV 90.2, platelet 211 with left shift, CMP with BUN/creatinine 20/1.46, GFR 46, glucose 171, T. bili 2.12, AST/LT 24/19, alk phos 142, urinalysis with specific Robley 1.020, protein 30, occult blood 25, negative nitrite, leukocyte Estrace 25 with no marked evidence of urine tract infection, CT abdomen and pelvis with wall thickening and surrounding fat stranding of the distal rectum likely infectious/inflammatory colitis with moderate pancolonic diverticulosis. In the ED patient ministered Rocephin 1 g IV x 1 and Flagyl 5 mg IV x 1. [facility] Medical History NSVT (nonsustained ventricular tachycardia) Aortic [...] large intestine Diverticula of colon Home Medications ?Medication ?Instructions ?Recorded ?Last Taken ?Type pravastatin 40 mg tablet 40 mg PO QHS cholesterol 08/0112/21/21 History levothyroxine 25 mcg tablet 25 mcg PO DAILY 02/20/24 U nknown History apixaban 2.5 mg tablet 2.5 mg PO BID blood thinner #60 03/27/24 Unknown Rx tabs amlodipine 5 mg tablet 5 mg PO DAILY #90 tabs 03/31 Unknown Rx furosemide 40 mg tablet 40 mg PO Q OTHER DAY PRN maxwell ma 03/31/24 Unknown History losartan 100 mg tablet 100 mg PO QDAY 03/31/24 Unkn own History metoprolol tartrate 25 mg tablet 25 mg PO BID #180 tab s 08/18/24 Unknown Rx Allergy/AdvReac Type Severity Reaction Status Date / Time codeine AdvReac Other Verified 11/11/24 15:53 lisinopril AdvReac Other Verified 11/11/24 15:53 Family History Father CVA (cerebral vascular accident) Mother Diabetes Sister Heart disease PPM Surgical History History of appendectomy History of cataract surgery History of tonsillectomy H/O hemicolectomy Hx of cholecystectomy Social History household members: none housing: penitentiary Smoking Status: Never smoker alcohol intake: current alcohol intake frequency: holidays/special occasions only substance use type: does not use ROS ROS Narrative Admission Review of Systems: CONSTITUTIONAL: No weight loss, fever, chills, + weakness or fatigue. HEENT: Eyes: No visual loss, blurred vision, double vision or yellow sclerae. Ears, Nose, Throat: No hearing loss, sneezing, congestion, runny nose or sore throat. SKIN: No rash or itching, lesions, wounds. CARDIOVASCULAR: No chest pain, chest pressure or chest discomfort, palpitations,edema, orthopnea, syncopal events. RESPIRATORY: No shortness of breath, cough or sputum, wheezing, hemoptysis. GASTROINTESTINAL: + anorexia, nausea without emesis, vacillating constipation diarrhea, abdominal cramping, rectal pain. No melena, BRBPR. GENITOURINARY: No dysuria, frequency, urgency or retention. NEUROLOGICAL: No headache, dizziness, syncope, paralysis, ataxia, numbness or tingling in the extremities, focal weakness, change in bowel or bladder control,seizure. MUSCULOSKELETAL: + muscle, back pain, joint pain or stiffness. HEMATOLOGIC: + Chronic anemia, easy bleeding/bruising. LYMPHATICS: No enlarged nodes. No history of splenectomy. PSYCHIATRIC: No history of depression or anxiety. ENDOCRINOLOGIC: No reports of sweating, cold or heat intolerance. No polyuria orpolydipsia. ALLERGIES: No history of asthma, hives, eczema or rhinitis. Vital Signs Vital Signs Vital Signs: 11/11/24 15:49 11/11/24 17:49 11/11/24 19:00 Temperature 97.8 F Temperature Source Temporal Pulse Rate 55 L 59 L 58 L Respiratory Rate 15 16 20 H Blood Pressure 129/56 H 122/64 H 151/68 H Blood Pressure Mean 80 83 95 Pulse Ox 98 99 99 Oxygen Delivery Method Room Air Room Air 11/11/24 21:00 Temperature Temperature Source Pulse Rate Respiratory Rate 15 Blood Pressure 161/67 H Blood Pressure Mean 98 Pulse Ox 99 Oxygen Delivery Method Physical Exam Narrative Physical Examination: General: Awake, alert, oriented x 3 and cooperative, seated upright in the ED bed, denies any marked pain or discomfort at this time. Skin: Normal color, normal turgor, no icterus, no cyanosis except occasional stage ecchymoses, abrasion, notable bilateral lower extremity venous stasis skinchanges. HEENT: AT/NC, EOMI, PERRLA, mildly dry MM, no carotid bruits or JVD noted. Lungs: Mildly diminished, greater bases, poor effort, no rales, ronchi or wheezing. Heart: Mildly bradycardic with regular rhythm; no gallop, rub audible. Abdomen: Soft, overweight, NTTP, hyperactive bowel sounds, no obvious evidence of distention or tympany, no appreciated HSM. Extremities: No cyanosis, no clubbing, see skin, chronic bilateral lower extremity pedal to mid cullen edema with as noted significant venous stasis disease noted to be stable per patient. Neurological: Patient awake, alert, oriented as noted, cognitive function intact; pupils equally reactive to light and accommodation, cranial nerves grossnormal, moving all 4 extremities, no focal deficits, strength moderately to severely globally decreased secondary to acute presentation complaints. Psychiatric: Affect appears mildly flat, fatigued, no acute evidence of depressive or anxiety feelings. Results Lab / Micro Data 11/11/24 18:56 11/11/24 18:56 Labs: Laboratory Results - last 24 hr 11/11/24 18:56: WBC 11.4 H, RBC 4.09 L, Hgb 12.8 L, Hct 36.9 L, MCV 90.2, MCH 31.3, MCHC 34.7, RDW Std Deviation 43.8, RDW Coeff of Lisa 13.3, Plt Count 211, MPV 11.0, Immature Gran % (Auto) 0.600, Neut % (Auto) 81.6 H, Lymph % (Auto) 8.3L, [place] % (Auto) 8.4, Eos % (Auto) 0.8, Baso % (Auto) 0.3, Absolute Neuts (auto)9.3 H, Absolute Lymphs (auto) 0.95, Nucleated RBC % 0, Sodium 136, Potassium 4.0, Chloride 102, Carbon Dioxide 23.1, Anion Gap 11, BUN 20 H, Creatinine 1.46 H, Est GFR (MDRD) Non-Af 46 L, BUN/Creatinine Ratio 13.6, Glucose 171 H, Calcium8.8, Total Bilirubin 2.12 H, AST 24, ALT 19, Alkaline Phosphatase 142 H, Total Protein 6.7, Albumin 3.7, Globulin 3.0, Albumin/Globulin Ratio 1.2, Urine Color Yellow, Urine Clarity Clear, Urine pH 6.0, Ur Specific [place] 1.020, Urine Protein 30 H, Urine Glucose (UA) Normal, Urine Ketones Negative, Urine Occult Blood 25 H, Urine Nitrite Negative, Urine Bilirubin Negative, Urine Urobilinogen1 H, Ur Leukocyte Esterase 25 H, Urine RBC 0-5 SEEN, Urine WBC 0-5 SEEN, Ur Squamous Epith Cells 0 SEEN, Urine Bacteria 0 SEEN, Urine Mucus 0 SEEN Micro: Microbiology 11/11/24 18:56 Stool Stool Occult Blood (CHERRY) - Final Occult Blood Positive Imaging Radiology Impression Abdomen/Pelvis CT 11/11/24 18:57 IMPRESSION: 1. Wall thickening and surrounding fat stranding of the distal rectum, which likely represents infectious/inflammatory colitis. 2. Moderate pancolonic diverticulosis. Reading Location: [facility] Assessment & Plan Assessment/Plan (1) Colitis: PLAN: Plan The patient is an 89 y/o M w/ PMHx: Chronic total hyperbilirubinemia, Chronic normocytic anemia, CKD stage III unclear subtype per GFR trending, HTN, HLD, GERD, Hypothyroidism, Diabetes mellitus type II, PAF, CHEO, Hx NSVT status post pacemaker placement who presents to the [facility] ED on 11/11/2024 with history of persistent rectal discomfort with loose stools with frequent bowel movement unable to really discern the color secondary to visual impairment with recent primary care evaluation with [facility] on 10/30/2024 demonstrating fecal retention at that time with acute on chronic constipation with lab work with WBC with 11.2 and mild hyponatremia near his baseline with some mild renal insufficiency however patient has had some ongoing mild lower abdominal discomfort and feels as though his rectum is raw from wiping with symptom improvement when he has flatus with no recent fevers or chills with selfadministration of Imodium however he felt as though he was becoming more constipated with the Imodium prompting stool softener administration with loose stool since at least 2-3 daily sometimes more with associated nausea with no emesis prompting eventual ED evaluation to be cautious. #1. Acute colitis, suspect infectious, possibly viral with recent issues with intermittent constipation and now diarrhea status post recent self administration of bowel regimen: Will admit to medical surgical floor, maintain on judicious hydration, monitor I&Os, allow clears as long as abdominal discomfort is lessened, maintain on IV PPI, will have pain regimen antiemetic regimen, will obtain C. difficile and enteric pathogen be cautious, will initiate on IV Zosyn therapy pending further workup, procalcitonin requested, will judiciously use preparation H supp for rectal discomfort x trial of 6 doses. PT/OT/case management consulted for discharge planning. If not improving may consider GI involvement. #2. Nonsustained VT: Status post pacemaker placement, following with cardiology, per most recent cardiology note noted 03/31/2024 has had various alterations to his metoprolol dosing, encourage continued follow-up with cardiology as previously arranged. #3. PAF: Will continue patient home Eliquis and metoprolol regimen with hold parameters as needed. #4. Chronic Kidney Disease Stage III, unclear subtype per GFR trend: Admission BUN/Cr 20/1.46, GFR 46, baseline renal function primarily 1.2-1.4, stable, repeat BMP in AM, per record following with pricing specialist Dr. Shaila Haq. #5. Chronic normocytic anemia: Admission hemoglobin 12.8, MCV 90.2, baseline hemoglobin vacillates from mid 12-13 range primarily, continue to trend #6. Chronic total hyperbilirubinemia, unclear specific etiology: Admission CMP with total bilirubin 2.12, AST/LT 24/, alk phos 142, stable compared to previous baseline, continue to trend. #7. Diabetes mellitus type II: Hold oral home regimen, given presentation will temporally maintain on clears with advance diet as tolerated ADA diet once appropriate, maintain on accu checks w/ ISS. #8. Known aortic aneurysm without rupture: Following with cardiology, last visit as noted 03/31/2024, continue hypertensive regimen with alteration temporarily as noted. #9. Hypertension: Will continue patient home metoprolol, losartan, amlodipine with hold parameters as needed, temporally holding diuretic given recent GI losses, add back once appropriate, as needed IV hydralazine. #10. Hypothyroidism: Will continue patient on levothyroxine regimen. #11. Hyperlipidemia: Continue patient on statin therapy. #12. GERD: Will maintain on IV PPI until improving as noted above. #13. CHEO: Given noted nausea will hold CPAP until resolved. #14. DVT prophylaxis: Will continue patient on apixaban regimen. #15. CODE status: Patient JANNA is his daughter and living will is currently inplace. Discussed CODE status at length including difference between FULL code, DNR-CCA and DNR-CC status. Following discussions about the differences in these status, requested DNR-CCA with intubation following several examples. Advanced Care Planning Face to Face Time: 16 minutes. Charges/Coding Visit Charges Inpatient E&M: 39641 Init Hosp L3 Procedures Hospitalists Procedures: 67561 Advncd Care Plan 30 Min 11/11/24 [id number] <Electronically signed by Unique Salazar MD> Cosigner Signature (if applicable): CC: Dr. Unique Salazar MD; Dr. Bernard Nugent MD~ Signed [facility] Work Phone: Hospital Discharge instructions Additional Instructions Break your metoprolol tablets in half and take 1/2 tablet each day rather than 1 tablet each day. Call Dr. Tobias's office in the morning for recheck and follow-upWBar[facility] Work Phone: Hospital Discharge instructions Additional Instructions Stay well-hydrated. Follow-up with your PCP and return for any worsening of your symptoms.[facility] Work Phone: Hospital Discharge instructions Additional [...] discuss with your primary care physician and/or charm filter operator helper incidental finding of thoracic arctic aneurysm to obtain proper follow-up and observationWBarney [facility]'s [facility] Work Phone: Hospital Discharge instructionsAdditional Instructions You may obtain loperamide [id number] to take as needed for diarrhea Date of Discharge: 11/14/24W[facility] Work Phone: Hospital Discharge instructionsAdditional Instructions Your bladder was not draining urine properly so a Puente catheter was placed. There is no signs of urinary tract infection. Call the urology office for an appointment. Keep your colonoscopy as scheduled to evaluate the ongoing diarrhea. Drink plenty of fluids.[facility] Work Phone: Reason for referral (narrative)No reason for referral information availableWBarney Children's Medical Center Work Phone: Summary Purpose Family History Relationship Condition Age at Onset Recorded Date/T angela father Cerebrovascular accident (CVA) Unknown mother Diabetes mellitus Unknown sister Cardiac disease Unknown Advance Directives Advance Directive Response Recorded Date/ Time Advance Directives Yes June 07, 2016 6:40pm Living Will Yes October 25, 2021 8 :34pm Power of Trailer Chief Yes October 25, 2021 8:34pm Advance Directive Response Recorded Date/ Time Name of Medical Power of Trailer Chief Joleen eli October 26, 2021 12:05am Advance Directives Yes June 07, 2016 6:40pm Living Will Yes October 26, 2021 1 2:05am Power of Trailer Chief Yes October 26, 2021 12:05am Advance Directive Response Recorded Date/ Time Name of Medical Power of Trailer Chief Joleen eli October 26, 2021 12:05am Name of Medical Power of Trailer Chief JOLEEN CHOI DAUGHTER December 19, 2021 10:21am Advance Directives Yes June 07, 2016 6:40pm Living Will Yes December 19, 2021 10:21am Power of Trailer Chief Yes December 19 10:21am Advance Directive Response Recorded Date/ Time Name of Medical Power of Trailer Chief Joleen eli October 26, 2021 12:05am Name of Medical Power of Trailer Chief JOLEEN VASQUEZ December 19, 2021 10:21am Name of Medical Power of Trailer Chief Mervat December 21, 2021 5:07pm Advance Directives Yes June 07, 2016 6:40pm Living Will Yes December 21, 2021 5:07pm Power of Trailer Chief Yes December 21 5:07pm Advance Directive Response Recorded Date/ Time Name of Medical Power of Trailer Chief Joleen vasquez October 26, 2021 12:05am Name of Medical Power of Trailer Chief JOLEEN VASQUEZ December 19, 2021 10:21am Name of Medical Power of Trailer Chief Mervat December 21, 2021 5:07pm Name of Medical Power of Trailer Chief andrew [email or web address] February 04, 2022 10:15pm Advance Directives Yes June 07, 2016 6:40pm Living Will Yes February 04, 2022 10:15pm Power of Trailer Chief Yes January 10:15pm Advance Directive Response Recorded Date/ Time Name of Medical Power of Trailer Chief JOLEEN CHOI DAUGHTER December 19, 2021 10:21am Name of Medical Power of Trailer Chief Mervat December 21, 2021 5:07pm Name of Medical Power of Trailer Chief andrew marte February 04, 2022 10:15pm Advance Directives Yes June 07, 2016 6:40pm Living Will Yes February 04, 2022 10:15pm Power of Trailer Chief Yes January 10:15pm Advance Directive Response Recorded Date/ Time Name of Medical Power of Trailer Chief JOLEEN MCDONALD- DAUGHTER December 19, 2021 9:21am Name of Medical Power of Trailer Chief Mervat December 21, 2021 4:07pm Name of Medical Power of Trailer Chief andrew marte February 04, 2022 9:15pm Advance Directives Yes June 07, 2016 5:40pm Living Will Yes February 04, 2022 9:15pm Power of Trailer Chief Yes January 9:15pm Advance Directive Response Recorded Date/ Time Advance Directives Yes June 07, 2016 5:40pm Living Will Yes February 04, 2022 9:15pm Power of Trailer Chief Yes January 9:15pm Advance Directive Response Recorded Date/ Time Advance Directives Yes June 07, 2016 6:40pm Living Will Yes February 04, 2022 10:15pm Power of Trailer Chief Yes January 10:15pm Advance Directive Response Recorded Date/ Time Advance Directives on File No September 242022 11:20am Name of Medical Power of Trailer Chief Joleen (daught er) September 24, 2022 11:20am Advance Directives Yes September 24, 2022 11:20am Living Will Yes September 24, 2022 11 :20am Power of Trailer Chief Yes September 24, 2022 11:20am Advance Directive Response Recorded Date/ Time Advance Directives Yes September 24, 2022 11:20am Living Will Yes September 24, 2022 11 :20am Power of Trailer Chief Yes September 24, 2022 11:20am Advance Directive Response Recorded Date/ Time Advance Directives Yes September 24, 2022 10:20am Living Will No March 24 10:00am Power of Trailer Chief No March 24, 2023 10:00am Advance Directive Response Recorded Date/ Time Advance Directives Yes September 24, 2022 10:20am Living Will No May 26 6:26pm Power of Trailer Chief No Vera 7th, 2 024 6:26pm Advance Directive Response Recorded Date/ Time Name of Medical Power of Trailer Chief joleen (daught er) July 07, 2023 11:38am Advance Directives Yes September 24, 2022 10:20am Living Will Yes July 07 11:38am Power of Trailer Chief Yes July 07, 2023 11:38am Advance Directive Response Recorded Date/ Time Name of Medical Power of Trailer Chief joleen (daught er) July 07, 2023 12:38pm Advance Directives Yes September 24, 2022 11:20am Living Will Yes July 07 12:38pm Power of Trailer Chief Yes July 07, 2023 12:38pm Advance Directive Response Recorded Date/ Time Living Will Yes September 24, 2022 10 :20am Power of Trailer Chief Yes September 24, 2022 10:20am Living Will Yes July 03 2:37pm Power of Trailer Chief Yes July 03, 2024 2:37pm Name of Medical Power of Trailer Chief JOLEEN KHANALLEY ALCIRA July 03, 2024 2:37pm Advance Directives Yes September 24, 2022 10:20am Advance Directive Response Recorded Date/ Time Living Will Yes July 03 3:37pm Do you have a Healthcare Pow er of Trailer Chief? Yes July 03, 2024 3:37pm Name of Medical Power of Trailer Chief JOLEEN ELI July 03, 2024 3:37pm Advance Directives Yes September 24, 2022 11:20am Advance Directive Response Recorded Date/ Time Advance Directives Yes September 24, 2022 11:20am Advance Directive Response Recorded Date/ Time Do you have a Healthcare Power of Trailer Chief? No November 11, 2024 5:06pm Advance Directives Yes September 24, 2022 11:20am Advance Directive Response Recorded Date/ Time Do you have a Healthcare Pow er of Trailer Chief? Yes November 11, 2024 11:57pm Name of Medical Power of Trailer Chief daughter-Ben Mcdonald November 11, 2024 11:57pm Advance Directives Yes September 24, 2022 11:20am Advance Directive Response Recorded Date/ Time Do you have a Healthcare Pow er of Trailer Chief? Yes December 03, 2024 12:40pm Do you have a Healthcare Pow er of Trailer Chief? Yes November 11, 2024 11:57pm Name of Medical Power of Trailer Chief daughter-Ben Mcdonald November 11, 2024 11:57pm Advance Directives Yes September 24, 2022 11:20am [...] A-FIB Bradycardia per Dr. Raffi ROBERTO PER SUPERVISOR METAL FABRICATING REGARDING EKG PERSISTENT ATRIAL FIB PERSISTENT ATRIAL FIB Reason for Visit Essential (primary) hypertension Longstanding persistent atrial fibrillation Essential (primary) hypertension Longstanding persistent atrial fibrillation Status post cardiac pacemaker procedure Longstanding persistent atrial fibrillation Chief Complaint EORDER INT LABS PERSISTENT A-FIB Bradycardia per Dr. Raffi ROBERTO PER SUPERVISOR METAL FABRICATING REGARDING EKG PERSISTENT ATRIAL FIB PERSISTENT ATRIAL [...] Check Remote August 06, 2024 3:3 2am RECTAL PAIN COLITIS November 11, 2024 10:2 6pm Reason for Visit Admit Date Colitis November 11, 2024 10:2 6pm Chief Complaint Admit Date Pacer Check Remote August 06, 2024 3:3 2am Pacer Check Remote October 31, 2024 4:10 am Pacer Check Remote November 05, 2024 2:00 am RECTAL PAIN COLITIS November 11, 2024 10:2 6pm RECTAL PAIN COLITIS November 12, 2024 4:26 pm RECTAL PAIN COLITIS November 13, 2024 5:05 pm Reason for Visit Admit Date Colitis November 11, 2024 10:2 6pm Occult GI bleeding November 11, 2024 10:2 6pm Chief Complaint Admit Date Pacer Check Remote August 06, 2024 3:3 2am Pacer Check Remote October 31, 2024 4:10 am Pacer Check Remote November 05, 2024 2:00 am RECTAL PAIN COLITIS November 11, 2024 10:2 6pm RECTAL PAIN COLITIS November 12, 2024 4:26 pm RECTAL PAIN COLITIS November 13, 2024 5:05 pm RECTAL PAIN COLITIS November 14, 2024 10:2 0am DIARRHEA RECTAL PAIN COLITIS November 26, 2024 11:02am Reason for Visit Admit Date Occult GI bleeding November 11, 2024 10:2 6pm Colitis November 11, 2024 10:2 6pm Chief Complaint Admit Date Pacer Check Remote August 06, 2024 3:3 2am Pacer Check Remote October 31, 2024 4:10 am Pacer Check Remote November 05, 2024 2:00 am RECTAL PAIN COLITIS November 11, 2024 10:2 6pm RECTAL PAIN COLITIS November 12, 2024 4:26 pm RECTAL PAIN COLITIS November 13, 2024 5:05 pm RECTAL PAIN COLITIS November 14, 2024 10:2 0am DIARRHEA RECTAL PAIN COLITIS November 26, 2024 11:02am GENERALIZED WEAKNESS, URINARY RETENTION S/P PUENTE December 03, 2024 3:45pm Reason for Visit Admit Date Occult GI bleeding November 11, 2024 10:2 6pm Colitis November 11, 2024 10:2 6pm Abnormal findings on imaging test November 172024 11:02am Rectal pain November 26, 2024 11:0 2am Diarrhea November 26, 2024 11:0 2am Acute urinary retention December 03, 2024 3:45pm Chronic diarrhea December 03, 2024 3:45 pm Additional Source Comments (unrecognized sect ion and content) No Status Records FoundNo Status Records Found INFORMATION SOURCE (unrecogn ized section and content) DATE CREATED AUTHOR 05/17/2018 [facility] DATE CREATED AUTHOR AUTHOR'S ORGANIZ ATION 11/27/2024 [facility] Goals (unrecognized section and content) Goals [...] Care Provider, Referring Provider Active Evin H Torsten BEHAVIORAL SCIENTIST, BEHAVIORAL SCIENTIST-C Attending Provider Active Team Status: Active Member Role Status Dates Dr. Bernard Nugent MD Primary Care Provider Active Dr. Shaila Haq DO Attending Provider Active Shaila Haq MD Referring Provider Active Evin H Torsten BEHAVIORAL SCIENTIST, BEHAVIORAL SCIENTIST-C Other Provider Active Team Status: Inactive Member Role Status Dates Dr. Bernard Nugent MD Primary Care Provider Active Dr. Rodolfo Tobias MD Attending Provider Active Team Status: Inactive Member Role Status Dates Dr. Bernard Nugent MD Primary Care Provider Active Dr. Shaila Haq DO Attending Provider Active Shaila Haq MD Referring Provider Active Evin H Torsten BEHAVIORAL SCIENTIST, BEHAVIORAL SCIENTIST-C Other Provider Active Team Status: Inactive Member Role Status Dates Dr. Bernard Nugent MD Primary Care Provider Active Dr. Shaila Haq DO Attending Provider Active Shaila CHAVEZ MD Referring Provider Active Evin H Torsten BEHAVIORAL SCIENTIST, BEHAVIORAL SCIENTIST-C Other Provider Active Team Status: Inactive Member Role Status Dates Dr. Bernard Nugent MD Primary Care Provider Active Dr. Shaila Haq DO Attending Provider Active Team Status: Active Member Role Status Dates Dr. Bernard Nugent MD Primary Care Provider Active Evin Sarmiento BEHAVIORAL SCIENTIST, BEHAVIORAL SCIENTIST-C Attending Provider, Referring Pro vider Active Team Status: Inactive Member Role Status Dates Dr. Bernard Nugent MD Primary Care Provider Active Evin Sarmiento BEHAVIORAL SCIENTIST, BEHAVIORAL SCIENTIST-C Attending Provider, Referring Pro vider Active Team [...] Ray Stuart DO Attending Provider, Emergency P mayi Active Team Status: Inactive Member Role Status [...] 09, 2024 End: July 09, 2024 Dr. eBrnard Nugent MD Referring Provider Active Start: July [...] October 30, 2024 End: October 30, 2024 Team Status: Active Member Role Status Dates Dr. Bernard Nugent MD Primary Care Provider Active Start: November 11, 2024 Dr. Bhavya Panda DO Emergency Provider Active Start: November 11, 2024 Dr. Unique Salazar MD Admit Provider Active St art: November 11, 2024 Dr. Unique Salazar MD Attending Provider Active Start: November 11, 2024 Dr. Unique Salazar MD Other Provider Active St art: November 11, 2024 Team Status: Active Member Role/Relationship Status Dates Dr. Bernard Nugent MD Primary Care Provider Active Team Status: Inactive Member Role/Relationship Status Dates Dr. Bernard Nugent MD Primary Care Provider Active Start: July 27, 2024 End: July 27, 2024 Dr. Bernard Nugent MD Attending Provider Active Start: July 27, 2024 End: July 27, 2024 Dr. Bernard Nugent MD Referring Provider Active Start: July 27, 2024 End: July 27, 2024 Team Status: Inactive Member Role/Relationship Status Dates Dr. Bernard Nugent MD Primary Care Provider Active Start: August 06, 2024 End: August 06, 2024 Dr. Rodolfo Tobias MD Attending Provider Active S tart: August 06, 2024 End: August 06, 2024 Dr. Rodolfo Tobias MD Referring Provider Active S tart: August 06, 2024 End: August 06, 2024 Team Status: Inactive Member Role/Relationship Status Dates Dr. Bernard Nugent MD Primary Care Provider Active Start: October 22, 2024 End: October 22, 2024 Dr. Bernard Nugent MD Attending Provider Active Start: October 22, 2024 End: October 22, 2024 Dr. Bernard Nugent MD Referring Provider Active Start: October 22, 2024 End: October 22, 2024 Team Status: Inactive Member Role/Relationship Status Dates Dr. Bernard Nugent MD Primary Care Provider Active Start: October 30, 2024 End: October 30, 2024 Dr. Bernard Nugent MD Attending Provider Active Start: October 30, 2024 End: October 30, 2024 Dr. Bernard Nugent MD Referring Provider Active Start: October 30, 2024 End: October 30, 2024 Team Status: Inactive Member Role/Relationship Status Dates Dr. Bernard Nugent MD Primary Care Provider Active Start: October 31, 2024 End: October 31, 2024 Dr. Rodolfo Tobias MD Attending Provider Active S tart: October 31, 2024 End: October 31, 2024 Team Status: Inactive Member Role/Relationship Status Dates Dr. Bernard Nugent MD Primary Care Provider Active Start: November 05, 2024 End: November 05, 2024 Dr. Rodolfo Tobias MD Attending Provider Active S tart: November 05, 2024 End: November 05, 2024 Team Status: Active Member Role/Relationship Status Dates Dr. Bernard Nugent MD Primary Care Provider Active Start: November 11, 2024 Dr. Bhavya Panda DO Emergency Provider Active Start: November 11, 2024 Dr. Unique Salazar MD Admit Provider Active St art: November 11, 2024 Dr. Unique Salazar MD Other Provider Active St art: November 11, 2024 Dr. Ankit Last DO Attending Provider Active Start: November 11, 2024 Team Status: Active Member Role/Relationship Status Dates Dr. Bernard Nugent MD Primary Care Provider Active Start: November 12, 2024 Dr. Bhavya Panda DO Emergency Provider Active Start: November 12, 2024 Dr. Unique Salazar MD Admit Provider Active St art: November 12, 2024 Dr. Unique Salazar MD Other Provider Active St art: November 12, 2024 Dr. Ankit Last DO Attending Provider Active Start: November 12, 2024 Dr. Ankit Last DO Other Provider Active S tart: November 12, 2024 Team Status: Active Member Role/Relationship Status Dates Dr. Bernard Nugent MD Primary Care Provider Active Start: November 13, 2024 Dr. Bhavya Panda DO Emergency Provider Active Start: November 13, 2024 Dr. Unique Salazar MD Admit Provider Active St art: November 13, 2024 Dr. Unique Salazar MD Other Provider Active St art: November 13, 2024 Dr. Ankit Last DO Attending Provider Active Start: November 13, 2024 Dr. Ankit Last DO Other Provider Active S tart: November 13, 2024 Team Status: Inactive Member Role/Relationship Status Dates Dr. Bernard Nugent MD Primary Care Provider Active Start: November 11, 2024 End: November 14, 2024 Dr. Bhavya Panda DO Emergency Provider Active Start: November 11, 2024 End: November 14, 2024 Dr. Unique Salazar MD Admit Provider Active St art: November 11, 2024 End: November 14, 2024 Dr. Unique Salazar MD Other Provider Active St art: November 11, 2024 End: November 14, 2024 Dr. Ankit Last DO Attending Provider Active Start: November 11, 2024 End: November 14, 2024 Team Status: Inactive Member Role/Relationship Status Dates Dr. Bernard Nugent MD Primary Care Provider Active Start: August 06, 2024 End: August 06, 2024 Dr. Rodolfo Tobias MD Attending Provider Active S tart: August 06, 2024 End: August 06, 2024 Dr. Rodolfo Tobias MD Referring Provider Active S tart: August 06, 2024 End: August 06, 2024 Team Status: Inactive Member Role/Relationship Status Dates Dr. Bernard Nugent MD Primary Care Provider Active Start: October 22, 2024 End: October 22, 2024 Dr. Bernard Nugent MD Attending Provider Active Start: October 22, 2024 End: October 22, 2024 Dr. Bernard Nugent MD Referring Provider Active Start: October 22, 2024 End: October 22, 2024 Team Status: Inactive Member Role/Relationship Status Dates Dr. Bernard Nugent MD Primary Care Provider Active Start: October 30, 2024 End: October 30, 2024 Dr. Bernard Nugent MD Attending Provider Active Start: October 30, 2024 End: October 30, 2024 Dr. Bernard Nugent MD Referring Provider Active Start: October 30, 2024 End: October 30, 2024 Team Status: Inactive Member Role/Relationship Status Dates Dr. Bernard Nugent MD Primary Care Provider Active Start: October 31, 2024 End: October 31, 2024 Dr. Rodolfo Tobias MD Attending Provider Active S tart: October 31, 2024 End: October 31, 2024 Dr. Rodolfo Tobias MD Referring Provider Active S tart: October 31, 2024 End: October 31, 2024 Team Status: Inactive Member Role/Relationship Status Dates Dr. Bernard Nugent MD Primary Care Provider Active Start: November 05, 2024 End: November 05, 2024 Dr. Rodolfo Tobias MD Attending Provider Active S tart: November 05, 2024 End: November 05, 2024 Team Status: Inactive Member Role/Relationship Status Dates Dr. Brenard Nugent MD Primary Care Provider Active Start: November 11, 2024 End: November 14, 2024 Dr. Bhavya Panda DO Emergency Provider Active Start: November 11, 2024 End: November 14, 2024 Dr. Unique Salazar MD Admit Provider Active St art: November 11, 2024 End: November 14, 2024 Dr. Unique Salazar MD Other Provider Active St art: November 11, 2024 End: November 14, 2024 Dr. Ankit Last DO Attending Provider Active Start: November 11, 2024 End: November 14, 2024 Team Status: Active Member Role/Relationship Status Dates Dr. Bernard Nugent MD Primary Care Provider Active Start: November 12, 2024 Dr. Bhavya Panda DO Emergency Provider Active Start: November 12, 2024 Dr. Unique Salazar MD Admit Provider Active St art: November 12, 2024 Dr. Unique Salazar MD Other Provider Active St art: November 12, 2024 Dr. Ankit Last DO Attending Provider Active Start: November 12, 2024 Dr. Ankit Last DO Other Provider Active S tart: November 12, 2024 Team Status: Active Member Role/Relationship Status Dates Dr. Bernard Nugent MD Primary Care Provider Active Start: November 13, 2024 Dr. Bhavya Panda DO Emergency Provider Active Start: November 13, 2024 Dr. Unique Salazar MD Admit Provider Active St art: November 13, 2024 Dr. Unique Salazar MD Other Provider Active St art: November 13, 2024 Dr. Ankit Last DO Attending Provider Active Start: November 13, 2024 Dr. Ankit Last DO Other Provider Active S tart: November 13, 2024 Team Status: Active Member Role/Relationship Status Dates Dr. Bernard Nugent MD Primary Care Provider Active Start: November 14, 2024 Dr. Bhavya Panda DO Emergency Provider Active Start: November 14, 2024 Dr. Unique Salazar MD Admit Provider Active St art: November 14, 2024 Dr. Unique Salazar MD Other Provider Active St art: November 14, 2024 Dr. Ankit Last DO Attending Provider Active Start: November 14, 2024 Dr. Ankit Last DO Other Provider Active S tart: November 14, 2024 Team Status: Inactive Member Role/Relationship Status Dates Dr. Bernard Nugent MD Primary Care Provider Active Start: November 26, 2024 End: November 26, 2024 Dr. Bernard Nugent MD Referring Provider Active Start: November 26, 2024 End: November 26, 2024 JAXSON Gunter Attending Provider Active Start: November 26, 2024 End: November 26, 2024 Team Status: Inactive Member Role/Relationship Status Dates Dr. Bernard Nugent MD Primary Care Provider Active Start: November 05, 2024 End: November 05, 2024 Dr. oRdolfo Tobias MD Attending Provider Active S tart: November 05, 2024 End: November 05, 2024 Dr. Rodolfo Tobias MD Referring Provider Active S tart: November 05, 2024 End: November 05, 2024 Team Status: Active Member Role/Relationship Status Dates Dr. Bernard Nugent MD Primary Care Provider Active Start: December 03, 2024 Dr. Damien Welch DO Emergency Provider Active Start: December 03, 2024 Dr. Ramos Boles DO Admit Provider Active Start: December 03, 2024 Dr. Ramos Boles DO Attending Provider Active Start: December 03, 2024 FOR RECORDS PERTAINING TO PATIENTS WHO [...] BE BASED ON THE PRIMARY CLINICAL RECORDS. [facility]. provides no warranty or guarantee of the accuracy or completeness of information in this document.
[2024-12-03 21:57] VITALS: BP 143/92; PULSE 70
[2024-12-03] MEDS: APIXABAN 2.5 MG TABLET (WCH) PO (21:59)
[2024-12-03 22:18] VITALS: BP 143/92; PULSE 70; RESP 18; TEMP 36.6; O2SAT 95
[2024-12-04 03:17] VITALS: BP 140/72; PULSE 61; RESP 18; TEMP 36.4; O2SAT 96
[2024-12-04 06:08] LABS: Hematocrit 30.4 % (40-54); Hemoglobin 10.9 g/dL (13.0-16.5); Mean Corp Hgb Conc 35.9 g/dL (32-36); Mean Corpuscular Volume 88.1 fL (80-94); Mean Platelet Vol. 11.7 fl (6.2-12.0); Platelet Count 180 K/mm3 (150-450); RBC Distribution Width CV 13.4 % (11.6-14.6); RBC Distribution Width SD 43.5 fl (35.1-43.9); Red Blood Count 3.45 M/mm3 (4.6-6.2); White Blood Count 10.6 K/mm3 (4.4-11.0)
[2024-12-04 06:46] LABS: Anion Gap 9 (5-15); BUN 14 mg/dL (4-19); BUN/Creat Ratio 12.2 RATIO (10-20); Calcium,Total 8.4 mg/dL (7.6-11.0); Carbon Dioxide 24.5 mmol/L (21.0-32.0); Chloride 101 mmol/L (98-108); Estimated Creatinine Clearance 47.45 ml/min (50-250); Glucose 126 mg/dL (70-99); Potassium 3.7 mmol/L (3.3-5.1)
--- NOTE | 2024-12-04 06:56 | PCM.PN.HOSP ---
Reason for Visit Chief Complaint: Persistent diarrhea and difficulty with urination Subjective Subjective Patient with no acute events overnight per self and per nursing report. Patient notes feeling weak and fatigued but does state the diarrhea has resolved since presentation. Patient remains on Bentyl as needed as well as loperamide as needed. Puente catheter remains in place with some mild blood-tinged urine. Discussed plan of care which included physical and Occupational Therapy assessment and he is amenable to this. Patient denies fevers, chills, nausea, emesis, abdominal pain, chest pain or dyspnea. Objective Data Objective Data Vital Signs: Vital Signs Temp Pulse Resp BP Pulse Ox O2 Del Method 97.5 F L 61 18 140/72 H 96 Room Air 12/04/24 03:12/04/24 03:12/04/24 03:12/04/24 03:12/04/24 03:12/04/24 03:17 Oxygen Delivery Method Room Air Weight: 194 lb 4 oz Body Mass Index (BMI) 27.8 Intake & Output: Intake and Output for Last 24 Hours 12/02/24 12/03/24 12/04/24 23:59 23:59 23:59 Output Total 700 / 700 300 / 300 Balance -700 / -700 -300 / -300 Lab / Micro Data 12/04/24 05:18 12/04/24 05:18 Labs: Laboratory Results - last 24 hr 12/03/24 12:50: WBC 10.2, RBC 4.05 L, Hgb 12.5 L, Hct 36.4 L, MCV 89.9, MCH 30.9, MCHC 34.3, RDW Std Deviation 45.0 H, RDW Coeff of Lisa 13.7, Plt Count 233, MPV 11.2, Immature Gran % (Auto) 0.500, Neut % (Auto) 79.2 H, Lymph % (Auto) 9.4 L, Dent % (Auto) 8.9, Eos % (Auto) 1.5, Baso % (Auto) 0.5, Absolute Neuts (auto) 8.1 H, Absolute Lymphs (auto) 0.95, Nucleated RBC % 0, Sodium 135, Potassium 4.0, Chloride 99, Carbon Dioxide 25.1, Anion Gap 11, BUN 14, Creatinine 1.21 H, Estim Creat Clear Calc 46.69 L, Est GFR (MDRD) Non-Af 57 L, BUN/Creatinine Ratio 11.7, Glucose 127 H, Calcium 8.9 12/03/24 14:20: Urine Color Yellow, Urine Clarity Clear, Urine pH 7.0, Ur Specific [place] 1.010, Urine Protein 30 H, Urine Glucose (UA) Normal, Urine Ketones Negative, Urine Occult Blood 10 H, Urine Nitrite Negative, Urine Bilirubin Negative, Urine Urobilinogen Normal, Ur Leukocyte Esterase Negative, Urine RBC 0 SEEN, Urine WBC 0 SEEN, Ur Squamous Epith Cells 0 SEEN, Urine Bacteria 0 SEEN, Urine Mucus 0 SEEN 12/04/24 05:18: WBC 10.6, RBC 3.45 L, Hgb 10.9 L, Hct 30.4 L, MCV 88.1, MCH 31.6, MCHC 35.9, RDW Std Deviation 43.5, RDW Coeff of Lisa 13.4, Plt Count 180, MPV 11.7, Sodium 134, Potassium 3.7, Chloride 101, Carbon Dioxide 24.5, Anion Gap 9, BUN 14, Creatinine 1.18, Estim Creat Clear Calc 47.45 L, Est GFR (MDRD) Non-Af 59 L, BUN/Creatinine Ratio 12.2, Glucose 126 H, Calcium 8.4 Physical Exam Narrative Physical Examination: General: Awake, alert, oriented x 3 and cooperative, laying in the medical surgical bed, fatigued. Skin: Normal color, normal turgor, no icterus, no cyanosis except for occasional stage ecchymoses, abrasion, bilateral lower extremity venous stasis skin changes. HEENT: AT/NC, EOMI, PERRLA, chronic vision deficits with underlying macular degeneration, MMM. Lungs: Mildly diminished, greater bases, poor effort, no rales, ronchi or wheezing. Heart: Regular rate and rhythm; no gallop, rub audible. Abdomen: Soft, overweight, NTTP, ND, mildly hyperactive BS. Extremities: No cyanosis, no clubbing, pedal to mid cullen 1-2+ pitting edema, chronic with venous stasis skin changes. Neurological: Patient awake, alert, oriented as noted, cognitive function intact; pupils equally reactive to light and accommodation, cranial nerves grossly normal, moving all 4 extremities, strength moderately to severely global decreased. Psychiatric: Affect appears fatigued otherwise normal, no acute evidence of depressive or anxiety feelings. 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 #1. Acute urinary retention suspected in large part secondary to acute colitis with concern for possible recurrent colonic malignancy as noted #2: Patient admitted to medical surgical floor, Puente catheter placed upon ED arrival, mild hematuria noted, no obvious evidence of UTI, initiated and continued on daily Flomax regimen with follow-up outpatient with urology unless able to de-escalate catheter given continued evaluation and treatment of #2 as noted. PT/OT/case management consulted for discharge planning. #2. Persistent diarrhea with recent history of acute colitis status post previous right hemicolectomy for villous adenoma complicated by history of previous colon cancer with concern for possible recurrent malignancy: Patient with negative C. difficile and enteric pathogens, diarrhea resolved, will have loperamide as needed, stool guaiac was positive but given his significant diarrhea not entirely surprising, baseline hemoglobin ranging 11-12, admission 12/03/2024 hemoglobin 12.5, repeat hemoglobin 12/04/2024 noted to be 10.9, will continue to closely monitor and temporarily hold Eliquis. Will need follow-up gastroenterology evaluation given concern for possible reoccurrence. #3. Significant debility, compounded by underlying macular degeneration with vision impairment with adult failure to thrive: Patient living at home alone, significantly weakened and debilitated given #1, #2, will maintain on fall precautions, PT/OT consulted for possibly detention facility placement needs. #4. PAF: Patient with history of prior similar atrial fibrillation with junctional bradycardia, status post pacemaker placement, will continue patient home metoprolol regimen, temporally holding Eliquis as noted. #5. Hypertension: Continue home regimen including metoprolol, losartan, amlodipine with hold parameters as needed, PRN hydralazine. #6. Hyperlipidemia: Will continue patient on statin therapy. #7. Chronic Kidney Disease Stage IIIa: Admission BUN/Cr 14/.21, GFR 57, baseline renal function primarily 1.2-1.4, 12/04/2024 BUN/Cryan 02/06., GFR 59, repeat BMP in AM. #8. Hypothyroidism: Will continue patient on levothyroxine regimen. #9. DVT prophylaxis: Temporarily hold Eliquis given positive stool guaiac, assure hemoglobin stable prior to resumption, SCDs in interim. #10. CODE status: DRN-CCA with intubation. Charges/Coding Visit Charges Inpatient E&M: 94372 Subs Hosp L3
[2024-12-04 09:15] VITALS: BP 143/67; PULSE 66
[2024-12-04] MEDS: APIXABAN 2.5 MG TABLET (WCH) PO (09:19)
[2024-12-04 10:00] VITALS: BP 143/67; PULSE 57; RESP 18; TEMP 36.5; O2SAT 99
--- NOTE | 2024-12-04 12:58 | CASEMGMT ---
Addendum entered by Milady Chand 12/04/24 13:44: Received confirmation from Paula at [facility], they will accept pt for care with plan for SOC on Saturday. NICOLE BARKLEY into pt room, pt is aware of the plan. Noted last admission that pt dtr called in for private duty information. Pt states this was not shared with him. Asked if pt would be able/willing to pay for someone to come in to empty this. Pt states he doesn't understand why he needs to have it. Pt unable to get passed this. Pt aware that we will see how it goes after catheter is taken out and if we need to relook at a plan, we will. Pt agreeable to this. Addendum entered by Milady Chand 12/04/24 13:35: Received information that will plan for catheter removal tomorrow, if pt unable to void will need to reinsert. NICOLE BARKLEY will set up HHC knowing if the catheter is reinserted, the dc plan will need to be changed. TC to Ariadna at [facility], referral made, will await decision to accept. Original Note: NICOLE BARKLEY into pt room, pt lying in bed in no distress. Pt states he lives alone and typically is indep. Pt does not have any AD at home nor use. Pt states his neighbors or the hospital van provides transportation for him. He states all of his family lives out of town. Pt would like [facility] again to come to his home. Discussed having SN, PT, OT and [employer]. Pt states that he is not interested in any meal services. He states he has had [facility] in the past and would like them again. 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 Pt states though if he dc's home with the catheter he cannot care for this as he is blind. Pt states he does not have anyone to assist him with this. Discussed with him that [facility] is not able to come daily to assist with this. NICOLE BARKLEY messaged hospitalist to confirm if plan is for pt to dc with figueroa. Will await response and form dc plan after.
[2024-12-04] MEDS: Psyllium 1 PACKET PO (13:15)
[2024-12-04] MEDS: Ammonium Lactate 225 gm Bottle 1 APPLIC TOPICAL ×2 (13:15→20:47)
--- NOTE | 2024-12-04 14:30 | CASEMGMT ---
Met with patient to complete CODY form. CODY form and its content were verbally explained and patient's questions were answered to the best of my ability.? Patient voiced understanding and signed CODY form.? Patient provided a copy of signed CODY form and original placed in patient's chart.? Patient had no further questions. Annalisa Alvarenga, Discharge Planning Asst
--- NOTE | 2024-12-04 14:46 | CHAPLAIN ---
Type of Pastoral Visit _x__ Initial Visit ___ Follow-up Visit ___ On-call Visit ___ General Patient Visit ___ Spiritual Assessment ___ Family Conference ___ Bereavement ___ Rapid Response ___ Code Blue ___ Other (describe below) Pastoral Care Referral From _x__ Patient ___ Family ___ Nurse ___ Physician ___ Global Climate Change Analyst ___ Restaurant Associate ___ Other (describe below) Sacrament/Intervention _x__ Active listening ___ Anointing ___ Protestant ___ Bereavement ___ Communion _x__ Raquel exploration ___ _x__ Life review _x__ Prayer ___ Reconciliation ___ Sacrament of Sick _x__ Supportive presence ___ Wedding ___ Other (describe below) Pastoral Comments patient is legally blind and this filling technician speaks with descriptions of what is being done, where sitting, etc.; pt explains his humbling situation and return to the hospital; pt acknowledges that he lives alone and that family wants to move him to [place]; pt is reluctant to make a move but admits that the family is thinking of what is best; pt doesn't' want to lose his independence and admits that he is not sure what [place] is like; encouraged the patient to keep open to options and consider what can be the best solution; pt also indicates that he needs to get ready for the final test; pt had the traffic personnel supervisor come to see him and he has asked that for a future visit he can make confession and prepare for communion, acknowledging that he is a lapsed Sabianism; prayer received; pt expresses appreciation for the visit
[2024-12-04 16:00] VITALS: BP 138/69; PULSE 62; RESP 18; TEMP 36.8; O2SAT 98
[2024-12-04 20:40] VITALS: BP 146/63; PULSE 67; RESP 18; TEMP 37.1; O2SAT 98
[2024-12-04 20:48] VITALS: PULSE 67
[2024-12-05 05:57] VITALS: BP 147/77; PULSE 61; RESP 18; TEMP 36.8; O2SAT 99
--- NOTE | 2024-12-05 07:06 | PN.HOSP_ITS ---
Reason for Visit Chief Complaint: Persistent diarrhea and difficulty with urination Subjective Subjective Discussed plan of care with patient with removal of Figueroa catheter today and continued observation with continued Flomax and if unfortunately unable to urinate appropriately with urinary retention plan to replace Figueroa catheter. Patient does state he feels improved today and did have an appetite and did eat all of his breakfast. He denies any recurrent issues with diarrhea. He denies any nausea or emesis. Given his blind status plan of care had been made if Figueroa catheter needs replaced would likely need tertiary facility otherwise patient would plan home with home health to which she is amenable. Patient denies fevers, chills, abdominal pain, chest pain or dyspnea. Objective Data Objective Data Vital Signs: Vital Signs Temp Pulse Resp BP Pulse Ox O2 Del Method 98.3 F 61 18 147/77 H 99 Room Air 12/05/24 05:57 12/05/24 05:57 12/05/24 05:57 12/05/24 05:57 12/05/24 05:57 12/05/24 05:57 Oxygen Delivery Method Room Air Weight: 194 lb 4 oz Body Mass Index (BMI) 27.8 Intake & Output: Intake and Output for Last 24 Hours 12/03/24 12/04/24 12/05/24 23:59 23:59 23:59 Intake Total 1580 / 1580 Output Total 700 / 700 1900 / 1900 550 / 550 Balance -700 / -700 -320 / -320 -550 / -550 Lab / Micro Data 12/05/24 06:42 12/05/24 06:42 Physical Exam Narrative Physical Examination: General: Awake, alert, oriented x 3 and cooperative, laying in the medical surgical bed, fatigued. Skin: Normal color, normal turgor, no icterus, no cyanosis except for occasional stage ecchymoses, abrasion, bilateral lower extremity venous stasis skin changes. HEENT: AT/NC, EOMI, PERRLA, chronic vision deficits with underlying macular degeneration, MMM. Lungs: Mildly diminished, greater bases, poor effort, no rales, ronchi or wheezing. Heart: Regular rate and rhythm; no gallop, rub audible. Abdomen: Soft, overweight, NTTP, ND, mildly hyperactive BS. Extremities: No cyanosis, no clubbing, pedal to mid cullen 1-2+ pitting edema, chronic with venous stasis skin changes. Neurological: Patient awake, alert, oriented as noted, cognitive function intact; pupils equally reactive to light and accommodation, cranial nerves grossly normal, moving all 4 extremities, strength improved from day prior however remains moderately to severely global decreased. Psychiatric: Affect appears more interactive, smiling, no acute evidence of depressive or anxiety feelings. 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 #1. Acute urinary retention suspected in large part secondary to acute colitis with concern for possible recurrent colonic malignancy as noted #2: Patient admitted to medical surgical floor, Figueroa catheter placed upon ED arrival, mild hematuria noted, no obvious evidence of UTI, initiated and continued on daily Flomax regimen. Patient hesitant to discharge to home with figueroa. 12/05/24 will attempt D/C; however, if needs replaced then may need higher level of discharge care with follow-up outpatient with urology. PT/OT/case management consulted for discharge planning. #2. Persistent diarrhea with recent history of acute colitis status post previous right hemicolectomy for villous adenoma complicated by history of previous colon cancer with concern for possible recurrent malignancy: Patient with negative C. difficile and enteric pathogens, diarrhea resolved, will have loperamide as needed, stool guaiac positive but given his significant diarrhea not entirely surprising, baseline hemoglobin ranging 11-12, admission 12/03/2024 hemoglobin 12.5, repeat hemoglobin 12/04/2024 noted to be 10.9, temporarily held Eliquis. 12/05/24 hemoglobin 11.2. Will need follow-up gastroenterology evaluation given concern for possible reoccurrence. Consider resumption Eliquis 12/06/2024 if no further aggressive diarrhea and hemoglobin in AM stable. #3. Hyponatremia, mild, likely residual component of GI losses: 12/05/2024 sodium 132, chloride 102, will judiciously hydrate, per discussion with nursing staff diarrhea significantly improved. Continue to trend CMP. #4. Chronic normocytic anemia: Admission hemoglobin 12.5, MCV 89.9 but dehydrated, baseline hemoglobin noted to vacillate however more recently starting in October 28 to range, 12/04/2024 hemoglobin 10.9, MCV 88.1-> 12/05/2024 hemoglobin 11.2, MCV 88.8. Stable, as noted above temporarily held Eliquis given positive guaiac but again confounded by significant diarrhea #2. Consider resumption Eliquis 12/06/2024 if no further aggressive diarrhea and hemoglobin in AM stable. #5. Significant debility, compounded by underlying macular degeneration with vision impairment with adult failure to thrive: Patient living at home alone, significantly weakened and debilitated given #1, #2, will maintain on fall precautions, PT/OT consulted for possibly custodial facility placement needs. #6. PAF: Patient with history of prior similar atrial fibrillation with junctional bradycardia, status post pacemaker placement, will continue patient home metoprolol regimen, temporally holding Eliquis as noted. Consider resumption Eliquis 12/06/2024 if no further aggressive diarrhea and hemoglobin in AM stable. #7. Hypertension: Continue home regimen including metoprolol, losartan, amlodipine with hold parameters as needed, PRN hydralazine. #8. Hyperlipidemia: Will continue patient on statin therapy. #9. Chronic Kidney Disease Stage IIIa: Admission BUN/Cr 14/1.21, GFR 57, baseline renal function primarily 1.2-1.4, 12/04/2024 BUN/Cr 14/1.18, GFR 59- >12/05/24 BUN/Cr 13/1.14, GFR 61, repeat BMP in AM. #10. Hypothyroidism: Will continue patient on levothyroxine regimen. #11. DVT prophylaxis: Temporarily held Eliquis given positive stool guaiac, SCDs in interim. Consider resumption Eliquis 12/06/2024 if no further aggressive diarrhea and hemoglobin in AM stable. #12. CODE status: DNR-CCA with intubation. Charges/Coding Visit Charges Inpatient E&M: 22788 Subs Hosp L2
[2024-12-05 07:18] LABS: Hematocrit 32.4 % (40-54); Hemoglobin 11.2 g/dL (13.0-16.5); Immature Granulocytes Count 0.030 X10^3/uL (0.0-0.0); Mean Corp Hgb Conc 34.6 g/dL (32-36); Mean Corpuscular Volume 88.8 fL (80-94); Mean Platelet Vol. 11.1 fl (6.2-12.0); NRBC Flagged by Analyzer 0 % (0-5); Platelet Count 175 K/mm3 (150-450); RBC Distribution Width CV 13.4 % (11.6-14.6); RBC Distribution Width SD 43.7 fl (35.1-43.9); Red Blood Count 3.65 M/mm3 (4.6-6.2); White Blood Count 8.4 K/mm3 (4.4-11.0)
[2024-12-05 07:37] LABS: AST(SGOT) 18 U/L (<=37); Alanine Aminotransfer ALT/SGPT 11 U/L (<=46); Albumin, Serum 3.1 g/dL (3.4-4.8); Alkaline Phosphatase 129 U/L (40-129); Anion Gap 10 (5-15); BUN 13 mg/dL (4-19); BUN/Creat Ratio 11.6 RATIO (10-20); Calcium,Total 8.2 mg/dL (7.6-11.0); Carbon Dioxide 20.7 mmol/L (21.0-32.0); Chloride 102 mmol/L (98-108); Estimated Creatinine Clearance 49.11 ml/min (50-250); Globulin 2.5 g/dL (2.2-4.2); Glucose 117 mg/dL (70-99); Potassium 3.5 mmol/L (3.3-5.1)
[2024-12-05] MEDS: 0.9% Saline Lock 10 ML Syringe IV (09:17)
[2024-12-05] MEDS: 0.9% Normal Saline (1000mL) 1,000 ML 100 ML IV (09:17)
[2024-12-05] MEDS: Ammonium Lactate 225 gm Bottle 1 APPLIC TOPICAL ×2 (09:18→21:39)
[2024-12-05 09:19] VITALS: BP 132/60; PULSE 65
[2024-12-05] MEDS: Psyllium 1 PACKET PO (09:19)
[2024-12-05 09:32] VITALS: BP 132/60; PULSE 65; RESP 16; TEMP 36.5; O2SAT 95
--- NOTE | 2024-12-05 14:27 | CASEMGMT ---
NICOLE BARKLEY into pt room, pt states he is getting his catheter reinserted. Discussed with pt options such as private duty to come to empty the catheter vs private pay at SNF vs [place]. Pt states he wants to return home. He asks NICOLE BARKLEY to call his dtr Patti. TC to Patti while in room, left vm requesting returned call. Pt aware that private duty is not likely to be able to be set up on the weekend. Updated hospitalist.
[2024-12-05 15:00] VITALS: BP 149/66; PULSE 66; RESP 16; RESP 18; TEMP 36.3; O2SAT 96
[2024-12-05 21:37] VITALS: BP 150/69; PULSE 60; RESP 16; TEMP 36.4; O2SAT 97
[2024-12-05 21:39] VITALS: BP 150/69; PULSE 60
[2024-12-05] MEDS: MELATONIN 3 MG TABLET PO (22:03)
[2024-12-06] VITALS (7 sets, daily range): BP systolic 126–152; BP diastolic 57–74; PULSE 60–63; RESP 16–18; TEMP 36.4–37.1; O2SAT 96–100
[2024-12-06 05:57] LABS: Hematocrit 29.5 % (40-54); Hemoglobin 10.5 g/dL (13.0-16.5); Immature Granulocytes Count 0.050 X10^3/uL (0.0-0.0); Mean Corp Hgb Conc 35.6 g/dL (32-36); Mean Corpuscular Volume 88.1 fL (80-94); Mean Platelet Vol. 11.6 fl (6.2-12.0); NRBC Flagged by Analyzer 0 % (0-5); Platelet Count 169 K/mm3 (150-450); RBC Distribution Width CV 13.4 % (11.6-14.6); RBC Distribution Width SD 43.4 fl (35.1-43.9); Red Blood Count 3.35 M/mm3 (4.6-6.2); White Blood Count 8.8 K/mm3 (4.4-11.0)
[2024-12-06 06:20] LABS: AST(SGOT) 17 U/L (<=37); Alanine Aminotransfer ALT/SGPT 13 U/L (<=46); Albumin, Serum 2.9 g/dL (3.4-4.8); Alkaline Phosphatase 127 U/L (40-129); Anion Gap 9 (5-15); BUN 12 mg/dL (4-19); BUN/Creat Ratio 11.2 RATIO (10-20); Calcium,Total 7.8 mg/dL (7.6-11.0); Carbon Dioxide 21.7 mmol/L (21.0-32.0); Chloride 103 mmol/L (98-108); Estimated Creatinine Clearance 51.37 ml/min (50-250); Globulin 2.5 g/dL (2.2-4.2); Glucose 102 mg/dL (70-99); Potassium 3.5 mmol/L (3.3-5.1)
--- NOTE | 2024-12-06 06:47 | PCM.PN.HOSP ---
Reason for Visit Chief Complaint: Persistent diarrhea and difficulty with urination Subjective Subjective Patient with no acute events overnight per self and per nursing report. Unfortunately as noted previously patient failed removal of Figueroa and voiding trial yesterday with Figueroa catheter replaced awaiting correction facility precertification/placement given unable to safely care for self with macular degeneration in the setting of also having a catheter. Patient does report that his appetite continues to improve and he is less fatigued. He denies any reoccurrence of loose stools. Patient denies fevers, chills, nausea, emesis, abdominal pain, chest pain or dyspnea. Objective Data Objective Data Vital Signs: Vital Signs Temp Pulse Resp BP Pulse Ox O2 Del Method 98.1 F 61 16 126/64 H 96 Room Air 12/06/24 04:03 12/06/24 04:03 12/06/24 04:03 12/06/24 04:03 12/06/24 04:03 12/06/24 04:03 Oxygen Delivery Method Room Air Weight: 194 lb 4 oz Body Mass Index (BMI) 27.8 Intake & Output: Intake and Output for Last 24 Hours 12/04/24 12/05/24 12/06/24 23:59 23:59 23:59 Intake Total 1580 / 1580 2055 / 2055 350 / 350 Output Total 1900 / 1900 1350 / 1350 475 / 475 Balance -320 / -320 705 / 705 -125 / -125 Lab / Micro Data 12/06/24 05:25 12/06/24 05:25 Labs: Laboratory Results - last 24 hr 12/05/24 06:42: WBC 8.4, RBC 3.65 L, Hgb 11.2 L, Hct 32.4 L, MCV 88.8, MCH 30.7, MCHC 34.6, RDW Std Deviation 43.7, RDW Coeff of Lisa 13.4, Plt Count 175, MPV 11.1, Immature Gran % (Auto) 0.400, Neut % (Auto) 73.3 H, Lymph % (Auto) 13.4 L, [place] % (Auto) 10.2 H, Eos % (Auto) 2.2, Baso % (Auto) 0.5, Absolute Neuts (auto) 6.1, Absolute Lymphs (auto) 1.12, Nucleated RBC % 0, Sodium 132 L, Potassium 3.5, Chloride 102, Carbon Dioxide 20.7 L, Anion Gap 10, BUN 13, Creatinine 1.14, Estim Creat Clear Calc 49.11 L, Est GFR (MDRD) Non-Af 61, BUN/Creatinine Ratio 11.6, Glucose 117 H, Calcium 8.2, Total Bilirubin 2.15 H, AST 18, ALT 11, Alkaline Phosphatase 129, Total Protein 5.6 L, Albumin 3.1 L, Globulin 2.5, Albumin/Globulin Ratio 1.2 12/06/24 05:25: WBC 8.8, RBC 3.35 L, Hgb 10.5 L, Hct 29.5 L, MCV 88.1, MCH 31.3, MCHC 35.6, RDW Std Deviation 43.4, RDW Coeff of Lisa 13.4, Plt Count 169, MPV 11.6, Immature Gran % (Auto) 0.600, Neut % (Auto) 76.5 H, Lymph % (Auto) 10.8 L, [place] % (Auto) 9.5, Eos % (Auto) 2.3, Baso % (Auto) 0.3, Absolute Neuts (auto) 6.7, Absolute Lymphs (auto) 0.95, Nucleated RBC % 0, Sodium 134, Potassium 3.5, Chloride 103, Carbon Dioxide 21.7, Anion Gap 9, BUN 12, Creatinine 1.09, Estim Creat Clear Calc 51.37, Est GFR (MDRD) Non-Af 65, BUN/Creatinine Ratio 11.2, Glucose 102 H, Calcium 7.8, Total Bilirubin 1.53 H, AST 17, ALT 13, Alkaline Phosphatase 127, Total Protein 5.4 L, Albumin 2.9 L, Globulin 2.5, Albumin/Globulin Ratio 1.2 Physical Exam Narrative Physical Examination: General: Awake, alert, oriented to self, place and recent events, remains cooperative, seated upright in the [facility] bedside chair, more alert and interactive. Skin: Normal color, normal turgor, no icterus, no cyanosis except for occasional stage ecchymoses, abrasion, bilateral lower extremity venous stasis skin changes. HEENT: AT/NC, EOMI, PERRLA, chronic vision deficits with underlying macular degeneration, MMM. Lungs: Mildly diminished, greater bases, appropriate effort, no rales, ronchi or wheezing. Heart: Regular rate and rhythm; no gallop, rub audible. Abdomen: Soft, overweight, NTTP, ND, mildly hyperactive BS. Extremities: No cyanosis, no clubbing, pedal to mid cullen 1-2+ pitting edema, chronic with venous stasis skin changes. Neurological: Patient awake, alert, oriented as noted, cognitive function intact; pupils equally reactive to light and accommodation, cranial nerves grossly normal, moving all 4 extremities, strength i improving, moderately to severely global decreased. Psychiatric: Affect appears normal, no acute evidence of depressive or anxiety feelings. 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 #1. Acute urinary retention suspected in large part secondary to acute colitis with concern for possible recurrent colonic malignancy as noted #2: Patient admitted to medical surgical floor, Figueroa catheter placed upon ED arrival, mild hematuria noted, no obvious evidence of UTI, initiated and continued on daily Flomax regimen. Patient hesitant to discharge to home with figueroa. 12/05/24 attempted to Figueroa discontinuation however patient later in the day 12/05/2024 required Figueroa replacement as continued evidence of urinary retention. Discussed with case management/social work 12/05/2024 and requested patient be changed to inpatient status given his prolonged admission coupled with electrolyte disturbances and need for skilled facility placement. At this time ongoing PT/OT/case management evaluation as patient does need skilled facility placement. #2. Persistent guiac positive diarrhea with recent history of acute colitis status post previous right hemicolectomy for villous adenoma complicated by history of previous colon cancer with concern for possible recurrent malignancy: Patient with negative C. difficile and enteric pathogens, diarrhea resolved, will have loperamide as needed, stool guaiac positive but given his significant diarrhea not entirely surprising, baseline hemoglobin ranging 11-12, admission 12/03/2024 hgb 12.5->12/04/2024 noted to be 10.9, temporarily held Eliquis->12/05/24 hemoglobin 11.2. 12/06/24 Hgb 10.5, will attempt restart of eliquis and continue to monitor Hgb. Pending on trending may require outpatient follow-up with gastroenterology evaluation given concern for possible reoccurrence. #3. Hyponatremia, mild, likely residual component of GI losses: 12/05/2024 sodium 132, chloride 102, judiciously hydrated, per discussion with nursing staff diarrhea significantly improved. 12/06/24 Na 134, Chl 103, improved. #4. Acute on Chronic normocytic anemia with as noted stool guiac positive setting with profuse diarrhea, resolved: Admission hemoglobin 12.5, MCV 89.9 but dehydrated, baseline hemoglobin noted to vacillate however more recently starting in October 28 to range, 12/04/2024 hemoglobin 10.9, MCV 88.1. Held eliquis 12/04/24. 12/05/2024 hemoglobin 11.2, MCV 88.8-->12/06/24 Hgb 10.5, will attempt restart of eliquis and continue to monitor Hgb. #5. Significant debility, compounded by underlying macular degeneration with vision impairment with adult failure to thrive: Patient living at home alone, significantly weakened and debilitated given #1, #2, will maintain on fall precautions, PT/OT consulted for correction facility placement needs. #6. PAF: Patient with history of prior similar atrial fibrillation with junctional bradycardia, status post pacemaker placement, will continue patient home metoprolol regimen, 12/04/24 temporally held Eliquis. 12/06/24 will restart Eliquis and monitor Hgb trend as noted with resolved diarrhea as noted #2. #7. Hypertension: Continue home regimen including metoprolol, losartan, amlodipine with hold parameters as needed, PRN hydralazine. #8. Hyperlipidemia: Will continue patient on statin therapy. #9. Chronic Kidney Disease Stage IIIa: Admission BUN/Cr 14/1.21, GFR 57, baseline renal function primarily 1.2-1.4, 12/04/2024 BUN/Cr 14/1.18, GFR 59->12/06/24 BUN/Cr 12/1.09, GFR 65. Continue to trend. #10. Hypothyroidism: Will continue patient on levothyroxine regimen. #11. DVT prophylaxis: 12/04/2024 temporarily held Eliquis given positive stool guaiac and mild hemoglobin decreased, appears to have been stabilized and diarrhea is resolved. 12/06/2024 will resume Eliquis and continue monitor hemoglobin. #12. CODE status: DNR-CCA with intubation. Charges/Coding Visit Charges Inpatient E&M: 44722 Subs Hosp L2
[2024-12-06] MEDS: Ammonium Lactate 225 gm Bottle 1 APPLIC TOPICAL ×2 (08:18→21:21)
[2024-12-06] MEDS: Psyllium 1 PACKET PO (08:19)
[2024-12-06] MEDS: APIXABAN 2.5 MG TABLET (WCH) PO (21:22)
[2024-12-06] MEDS: MELATONIN 3 MG TABLET PO (23:34)
[2024-12-07] VITALS (7 sets, daily range): BP systolic 127–141; BP diastolic 56–70; PULSE 57–61; RESP 16; TEMP 36.4–36.8; O2SAT 98–100
[2024-12-07 07:10] LABS: Hematocrit 33.0 % (40-54); Hemoglobin 11.5 g/dL (13.0-16.5); Immature Granulocytes Count 0.060 X10^3/uL (0.0-0.0); Mean Corp Hgb Conc 34.8 g/dL (32-36); Mean Corpuscular Volume 90.2 fL (80-94); Mean Platelet Vol. 11.5 fl (6.2-12.0); NRBC Flagged by Analyzer 0 % (0-5); Platelet Count 175 K/mm3 (150-450); RBC Distribution Width CV 13.5 % (11.6-14.6); RBC Distribution Width SD 44.8 fl (35.1-43.9); Red Blood Count 3.66 M/mm3 (4.6-6.2); White Blood Count 9.9 K/mm3 (4.4-11.0)
[2024-12-07 07:46] LABS: AST(SGOT) 18 U/L (<=37); Alanine Aminotransfer ALT/SGPT 14 U/L (<=46); Albumin, Serum 3.2 g/dL (3.4-4.8); Alkaline Phosphatase 138 U/L (40-129); Anion Gap 8 (5-15); BUN 10 mg/dL (4-19); BUN/Creat Ratio 8.9 RATIO (10-20); Calcium,Total 8.3 mg/dL (7.6-11.0); Carbon Dioxide 23.5 mmol/L (21.0-32.0); Chloride 103 mmol/L (98-108); Estimated Creatinine Clearance 49.11 ml/min (50-250); Globulin 2.8 g/dL (2.2-4.2); Glucose 108 mg/dL (70-99); Potassium 3.7 mmol/L (3.3-5.1)
[2024-12-07] MEDS: APIXABAN 2.5 MG TABLET (WCH) PO ×2 (08:43→22:09)
[2024-12-07] MEDS: Psyllium 1 PACKET PO (08:44)
[2024-12-07] MEDS: Ammonium Lactate 225 gm Bottle 1 APPLIC TOPICAL ×2 (08:44→22:09)
--- NOTE | 2024-12-07 09:32 | CASEMGMT ---
Addendum entered by Milady Chand 12/07/24 14:48: NICOLE BARKLEY provided pt and dtr with private duty list and asked to review options as per Kate it appears pt is over income for [facility]. Pt dtr present and asked if private duty is chosen that she set this up as NICOLE BARKLEY was going to assist as a courtesy but typically does not as this is not covered by insurance. Dtr became upset and states she needs to have another family meeting. Made pt and dtr aware that pt is medically ready for dc and we need to continue to work on a dc plan. She states that it has not yet been confirmed the cause of the urinary retention. She is again made aware that this will not be confirmed as this will require an outpt follow up. Addendum entered by Milady Chand 12/07/24 14:33: NICOLE BARKLEY into pt room, pt dtr Patti present. Pt states that he now has the information that Kate from [employer] requested. SW updated Kate. Pt states should he not qualify for [facility], he would like to pursue dc'ing home with hospitality aide. Addendum entered by Milady Chand 12/07/24 12:15: Phone discussion with pt children Domi, Tj, Patti and Anjana as well as NICOLE BARKLEY and Vivian FLORES. Pt family with multiple questions regarding skilled care, unskilled care, [facility], l/t [facility] for approx 45 minutes. Plan for Kate from [employer] to meet with pt if he is agreeable to see if he qualifies for [facility]. Pt family to call pt to have a discussion regarding his care. NICOLE BARKLEY/SANDRA to follow. Original Note: NICOLE BARKLEY into pt room to discuss dc plan. Pt is agreeable to paying for private duty for catheter emptying and to have HHC. NICOLE BARKLEY received vm from pt dtr Patti. TC back to Patti to make aware of pt wishes. She has many questions regarding pt care and asks for urology consult. She asks for her siblings and her to have family meeting with NICOLE BARKLEY at 11:15am. Spoke with hospitalist who reported pt urology would be as an outpt. NICOLE BARKLEY back into pt room to make pt aware of family meeting request. Pt still states he prefers to go home. He is aware of the family meeting with NICOLE BARKLEY.
--- NOTE | 2024-12-07 16:43 | CASEMGMT ---
Social Work- SW spoke with Kate/[employer] rep who reports that pt has three life insurance policies that will need cashed in prior to [facility] eligibility. Kate reports that pt has approx $600 in liquid diana/accounts. Pt family wishes to discuss plan of care and report back to staff in the morning. RNCM updated. ALESSANDRO Avila
--- NOTE | 2024-12-07 17:07 | PN_ITS ---
Subjective Subjective Patient seen and examined with his nurse by his bedside. He had no active complaints and had an uneventful night. He still has a figueroa catheter in situ. Review of systems is otherwise negative. Objective Data Objective Data Vital Signs: Vital Signs Temp Pulse Resp BP Pulse Ox O2 Del Method 97.6 F L 57 L 16 141/62 H 100 Room Air 12/07/24 14:56 12/07/24 14:56 12/07/24 14:56 12/07/24 14:56 12/07/24 14:56 12/07/24 14:56 Oxygen Delivery Method Room Air Weight: 194 lb 4 oz Body Mass Index (BMI) 27.8 Intake & Output: Intake and Output for Last 24 Hours 12/05/24 12/06/24 12/07/24 23:59 23:59 23:59 Intake Total 5 / 5 1870 / 1870 150 / 150 Output Total 1350 / 1350 2700 / 2700 625 / 625 Balance 705 / 705 -830 / -830 -475 / -475 Lab / Micro Data 12/07/24 06:53 12/07/24 06:53 Labs: Laboratory Results - last 24 hr 12/07/24 06:53: WBC 9.9, RBC 3.66 L, Hgb 11.5 L, Hct 33.0 L, MCV 90.2, MCH 31.4, MCHC 34.8, RDW Std Deviation 44.8 H, RDW Coeff of Lisa 13.5, Plt Count 175, MPV 11.5, Immature Gran % (Auto) 0.600, Neut % (Auto) 77.6 H, Lymph % (Auto) 9.4 L, [place] % (Auto) 10.2 H, Eos % (Auto) 1.9, Baso % (Auto) 0.3, Absolute Neuts (auto) 7.7, Absolute Lymphs (auto) 0.93, Nucleated RBC % 0, Sodium 135, Potassium 3.7, Chloride 103, Carbon Dioxide 23.5, Anion Gap 8, BUN 10, Creatinine 1.14, Estim Creat Clear Calc 49.11 L, Est GFR (MDRD) Non-Af 61, BUN/Creatinine Ratio 8.9 L, Glucose 108 H, Calcium 8.3, Total Bilirubin 1.57 H, AST 18, ALT 14, Alkaline Phosphatase 138 H, Total Protein 6.0, Albumin 3.2 L, Globulin 2.8, Albumin/Globulin Ratio 1.1 Physical Exam Const alert, oriented x3 and no apparent distress General Appearance: cooperative and well developed HEENT normocephalic, head/scalp atraumatic, moist oral mucous membranes and oropharynx normal Eyes EOMs intact bilaterally Eyes Narrative: patient legally blind Neck no lymphadenopathy and supple Lymph Lymphatic: no lymphadenopathy noted and no lymphedema noted Resp normal respiratory effort, normal air movement and clear to auscultation bilaterally Cardio regular rate, regular rhythm, S1 normal heart sound, S2 normal heart sound and no murmurs GI normal to inspection, nondistended, normoactive bowel sounds, soft to palpation, non-tender and non-distended Extremity normal capillary refill General Extremity: no tenderness to palpation of joints or extremities Skin General Skin Exam: no breakdown Neuro CN's II-XII intact bilaterally and no focal motor deficits Motor Exam: strength 5/5 throughout and general weakness Psych thought process normal and cooperative Appearance: appropriate Assessment & Plan Assessment/Plan (1) Acute urinary retention: (2) Chronic diarrhea: PLAN: Plan #Acute urinary retention in the setting of acute colitis * figueroa catheter in situ. Failed voiding trial. * on flomax. * awaiting placement. Will need to follow up with urology on outpatient basis * #Recent acute colitis with guaic positive diarrhea * resolved. Has a history of previous right hemicolectomy for villous adenoma complicated by history of previous colon cancer * C diff negative. * was on eliquis and this was resumed. Will monitor * #Hyponatremia: resolved. #Acute on chronic normocytic anemia: stable. #Paroxysmal afib: on eliquis. on metoprolol. #Hypertension: on metoprolol and losartan and amlodipine. IV hydralazine prn. #Hyperlipidemia: on statin #CKD IIIa: Cr at baseline. Will monitor #Hypothyroidism: on synthroid. DVT prophylaxis: on eliquis. Disposition: for likely DC within the next 24-48 hours. Charges/Coding Visit Charges Inpatient E&M: 30260 Subs Hosp L2
[2024-12-07] MEDS: 0.9% Saline Lock 10 ML Syringe IV (22:07)
[2024-12-07] MEDS: MELATONIN 3 MG TABLET PO (23:54)
[2024-12-08 02:34] VITALS: BP 125/58; PULSE 61; RESP 18; TEMP 37.1; O2SAT 97
[2024-12-08 06:20] LABS: Anion Gap 8 (5-15); BUN 11 mg/dL (4-19); BUN/Creat Ratio 9.1 RATIO (10-20); Calcium,Total 8.0 mg/dL (7.6-11.0); Carbon Dioxide 23.2 mmol/L (21.0-32.0); Chloride 104 mmol/L (98-108); Estimated Creatinine Clearance 47.05 ml/min (50-250); Glucose 104 mg/dL (70-99); Potassium 3.9 mmol/L (3.3-5.1)
[2024-12-08 06:31] LABS: Hematocrit 30.6 % (40-54); Hemoglobin 10.7 g/dL (13.0-16.5); Immature Granulocytes Count 0.040 X10^3/uL (0.0-0.0); Mean Corp Hgb Conc 35.0 g/dL (32-36); Mean Corpuscular Volume 89.5 fL (80-94); Mean Platelet Vol. 11.6 fl (6.2-12.0); NRBC Flagged by Analyzer 0 % (0-5); Platelet Count 170 K/mm3 (150-450); RBC Distribution Width CV 13.5 % (11.6-14.6); RBC Distribution Width SD 44.3 fl (35.1-43.9); Red Blood Count 3.42 M/mm3 (4.6-6.2); White Blood Count 9.4 K/mm3 (4.4-11.0)
[2024-12-08 07:51] VITALS: BP 133/64; PULSE 61; RESP 16; TEMP 36.6; O2SAT 98
[2024-12-08 08:55] VITALS: PULSE 61
[2024-12-08] MEDS: Psyllium 1 PACKET PO (08:56)
[2024-12-08] MEDS: APIXABAN 2.5 MG TABLET (WCH) PO (08:56)
[2024-12-08] MEDS: Ammonium Lactate 225 gm Bottle 1 APPLIC TOPICAL (08:56)
--- NOTE | 2024-12-08 09:10 | CASEMGMT ---
Discharge Planning A list of SNF providers including quality and resource use data and consistent with the patient's preferred geographic region, medical needs, and insurance network was created in [employer] Guide.? This list was provided to the SANDRA Alvarenga Discharge Planning Asst.
--- NOTE | 2024-12-08 10:18 | CASEMGMT ---
Addendum entered by Milady Chand 12/08/24 13:08: NICOLE BARKLEY into pt room, pt lying in bed in no distress. Pt is aware of Dr. Ortega appt and that the hospital van will be able to transport him. Pt is aware of appt set up with and that the hospital van cannot transport him. Pt states he has a neighbor who can transport him to this. Pt is aware that [facility] will be out tomorrow to see him in his home tomorrow. He is aware that all appts will be on his dc instructions. Pt denies further needs at this time. He is aware that NICOLE BARKLEY will await to hear from his dtr regarding the private duty set up. Addendum entered by Milady Chand 12/08/24 11:53: [id number]- Received tc from Tracie at [facility], they plan to see pt tomorrow for SOC. Addendum entered by Milady Chand 12/08/24 10:50: TC to [facility], left message to make aware of appt scheduled with Dr. Nugent and to see when SOC may be with plan for dc today. Addendum entered by Milady Chand 12/08/24 10:38: TC to [facility] to check availability for transportation. There is not availability for the appt with Dr. Nugent but was able to set up pickup for the appt wiht Dr. Ortega at 9:15am on 12/14/24 with return transport home. Original Note: NICOLE BARKLEY into pt room, pt states he thinks his dtr is calling [place] for private duty to start. He provided NICOLE BARKLEY with her work phone number and asked to call her there. TC to pt dtr at [phone]. Patti states that she is working on getting [place] private duty set up for dc this date. She asks if pt will be sent home on IV pole for catheter and what the orders are for emptying. She is aware that the cath will not be on an IV pole and the tubing needs to be lower than the bladder. She is aware the nurse will teach the pt this as well. Also she is aware that the cath gets emptied prn. She states she understands and pt should be ready for dc today and she will call NICOLE BARKLEY back when she has private duty set up.
--- NOTE | 2024-12-08 14:07 | DS.PCM_ITS ---
Providers Date of Admission: 12/06/24 Date of Discharge: 12/08/24 Primary Care Physician: Dr. Bernard Nugent MD Reason For Visit: GENERALIZED WEAKNESS, URINARY RETENTION S/P SÁNCHEZ Diagnosis Discharge Diagnosis (1) Acute urinary retention: Status: Acute Code(s): R33.8 - Other retention of urine (2) Chronic diarrhea: Status: Chronic Code(s): K52.9 - Noninfective gastroenteritis and colitis, unspecified Plan #Acute urinary retention in the setting of acute colitis * sánchez catheter in situ. Failed voiding trial. * on flomax. * awaiting placement. Will need to follow up with urology on outpatient basis * #Recent acute colitis with guaic positive diarrhea * resolved. Has a history of previous right hemicolectomy for villous adenoma complicated by history of previous colon cancer * C diff negative. * was on eliquis and this was resumed. Will monitor * #Hyponatremia: resolved. #Acute on chronic normocytic anemia: stable. #Paroxysmal afib: on eliquis. on metoprolol. #Hypertension: on metoprolol and losartan and amlodipine. IV hydralazine prn. #Hyperlipidemia: on statin #CKD IIIa: Cr at baseline. Will monitor #Hypothyroidism: on synthroid. DVT prophylaxis: on eliquis. Disposition: for likely DC within the next 24-48 hours. Medications at Discharge Home Medications levothyroxine 25 mcg tablet 25 mcg PO DAILY 02/20/24 apixaban 2.5 mg tablet 2.5 mg PO BID blood thinner #60 tabs 03/27/24 amlodipine 5 mg tablet 5 mg PO DAILY #90 tabs 03/31/24 losartan 100 mg tablet 100 mg PO QDAY 03/31/24 metoprolol tartrate 25 mg tablet 25 mg PO BID #180 tabs 08/18/24 dicyclomine 20 mg tablet 20 mg PO TID #30 tabs 11/14/24 loperamide 2 mg capsule 2 mg PO TID PRN Diarrhea 11/25/24 pravastatin 40 mg tablet 40 mg PO QHS cholesterol 11/26/24 tamsulosin 0.4 mg capsule 0.4 mg PO DAILY@1730 #30 caps 12/08/24 Hospital Course Operations None Procedures None Summary of Care Provided Minutes Spent on Discharge: 55 Hospital Course: Patient is an 89-year-old male with a past medical history as outlined was admitted to the ED on 12/03/2024 with complaint of diarrhea and difficulty with urination. He had recently been admitted in October 2024 for similar complaints as well as rectal pain and found to have acute colitis. He did have a history of right hemicolectomy for villous adenoma and so there was a concern for potential recurrence but he deferred colonoscopy and wanted to have it done on outpatient basis. Stool PCR was negative during that admission and so he was started on Bentyl and Imodium. He continued to have diarrhea and saw GI in the office on 11/26/2024. He was planning to have the colonoscopy done at outside facility where he had his hemicolectomy in December 2024. However due to the persistent diarrhea and difficulty with urination he came into the ED. He was found to also be in urinary retention. 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 Due to concerns about safe discharge and weakness he was admitted to be managed for debility in the setting of chronic diarrhea and urinary retention. He failed voiding trial and so Sánchez catheter was left in situ and he was started on Flomax. His diarrhea subsequently resolved and he felt better. He had had positive guaiac stools but this was thought to be due to the diarrhea and acute colitis. C. difficile was negative. He was placed back on his Eliquis and did well. Patient was initially willing to go to a skilled rehab facility but subsequently he and his family decided that he will go home with home health. He was therefore discharged home on 12/08/2024. He is follow-up with his primary care doctor within 1 to 2 weeks and is also to follow-up with his administrative services specialist as scheduled on outpatient basis. Patient seen and examined prior to discharge. He had no active complaints and had an uneventful night. Review of symptoms otherwise negative. Labs and vitals reviewed. Home medication reviewed and reconciled. Physical Exam Const alert, oriented x3, no apparent distress and average body habitus General Appearance: cooperative, comfortable and well developed HEENT normocephalic, head/scalp atraumatic, hearing grossly normal bilaterally, nasal mucous membranes and turbinates normal, moist oral mucous membranes and oropharynx normal Eyes PERRL, EOMs intact bilaterally and conjunctivae normal Eyes Narrative: patient legally blind Neck full ROM, no lymphadenopathy and supple Lymph Lymphatic: no lymphadenopathy noted and no lymphedema noted Chest inspection of chest normal Resp normal respiratory effort, normal air movement, no use of accessory muscles and clear to auscultation bilaterally Cardio regular rate, regular rhythm, S1 normal heart sound, S2 normal heart sound, no murmurs and peripheral pulses 2+ throughout GI normal to inspection, nondistended, normoactive bowel sounds, soft to palpation, non-tender and non-distended no CVA tenderness Bladder / Kidney Exam: catheter in place and bladder normal to palpation Back/Spine normal ROM Extremity normal to inspection, full ROM, normal capillary refill and no pedal edema General Extremity: no tenderness to palpation of joints or extremities Skin no rashes or lesions noted General Skin Exam: no breakdown Neuro oriented x3, CN's II-XII intact bilaterally, moves all extremities and no focal motor deficits Sensorium / Orientation: awake Motor Exam: strength 5/5 throughout and general weakness Psych mental status grossly normal, thought process normal and cooperative Appearance: appropriate Weight / BMI Weight Weight: 194 lb 4 oz Body Mass Index (BMI) 27.8 ABG / Lab / Microbiology Data 12/08/24 05:40 12/08/24 05:40 Laboratory: Laboratory Results - last 24 hr 12/08/24 05:40: WBC 9.4, RBC 3.42 L, Hgb 10.7 L, Hct 30.6 L, MCV 89.5, MCH 31.3, MCHC 35.0, RDW Std Deviation 44.3 H, RDW Coeff of Lisa 13.5, Plt Count 170, MPV 11.6, Immature Gran % (Auto) 0.400, Neut % (Auto) 76.4 H, Lymph % (Auto) 11.0 L, [place] % (Auto) 10.3 H, Eos % (Auto) 1.6, Baso % (Auto) 0.3, Absolute Neuts (auto) 7.2, Absolute Lymphs (auto) 1.04, Nucleated RBC % 0, Sodium 135, Potassium 3.9, Chloride 104, Carbon Dioxide 23.2, Anion Gap 8, BUN 11, Creatinine 1.19, Estim Creat Clear Calc 47.05 L, Est GFR (MDRD) Non-Af 58 L, BUN/Creatinine Ratio 9.1 L , Glucose 104 H, Calcium 8.0 D/C Instructions Discharge Activity: Return to Normal Activity Weight Bearing Status: Weight bearing as tolerated Call your doctor if you observe: Fever of 101 or Higher, Shortness of breath, Dizziness, Swelling in the ankles and Chest pain DC O2, CPAP, BIPAP Needs Home O2 Discharge instructions: No DC home with Oxygen: No Meaningful Use Info Meaningful Use Meaningful Use Diagnoses (Choose all that apply): None applicable Discharge Plan Admission Admit Date/Time: 12/06/24 08:32 Primary Reason for Your Visit: urinary retention Attending Provider: Steph Beltran Primary Care Provider: Bernard Nugent Chi Consulting Providers: Ramos Boles; Unique Salazar Instructions Patient Instructions: ED Sánchez Catheter, Care, ED Urinary Retention, Male Additional Instructions / Restrictions: Your bladder was not draining urine properly so a Sánchez catheter was placed. There is no signs of urinary tract infection. Call the urology office for an appointment. Keep your colonoscopy as scheduled to evaluate the ongoing diarrhea. Drink plenty of fluids. Discharge Orders/Prescriptions Prescriptions: New tamsulosin 0.4 mg Capsule 0.4 mg PO DAILY@1730 Qty: 30 2RF Continued losartan 100 mg tablet 100 mg PO QDAY amlodipine 5 mg tablet 5 mg PO DAILY Qty: 90 3RF loperamide 2 mg capsule 2 mg PO TID PRN (Reason: Diarrhea) Rx Instructions: You may take loperamide 2 to 4 mg 3 times a day as needed for loose stools and diarrhea pravastatin 40 mg tablet 40 mg PO QHS Patient Comments: CHOLESTEROL levothyroxine 25 mcg tablet 25 mcg PO DAILY dicyclomine 20 mg tablet 20 mg PO TID Qty: 30 0RF apixaban 2.5 mg tablet 2.5 mg PO BID Qty: 60 1RF metoprolol tartrate 25 mg tablet 25 mg PO BID Qty: 180 3RF Referrals / Follow Up: Shahram Ortega MD [Med Staff - Active Staff] - 12/14/24 10:45 am Bernard Nugent Chi, MD [Primary Care Provider] - 12/10/24 11:20 am Disposition Disposition (needs filled in before D/C Order can be placed): Home Health Service Charges/Coding Visit Charges Inpatient E&M: 45421 Disch Hosp >30min
[2024-12-08 14:51] VITALS: BP 143/69; PULSE 62; RESP 17; TEMP 36.8; O2SAT 98
--- NOTE | 2024-12-08 14:59 | PHA.DC_ITS ---
Pharmacy [facility] has performed discharge medication reconciliation and counseling for this patient. 1. TAMSULOSIN 0.4MG PO DAILY @ 1730 The patient's discharge medication list was reviewed for discrepancies and discrepancies were resolved. The patient was counseled on the following discharge medications and changes in medications for homegoing were reviewed. The Reason for Use, instructions for use, and potential side effects were reviewed for all new medications. The patient's questions regarding all of their medications were answered. The patient was able to verbally demonstrate an understanding of their discharge medications. Medications at Discharge Home Medications levothyroxine 25 mcg tablet 25 mcg PO DAILY 02/20/24 apixaban 2.5 mg tablet 2.5 mg PO BID blood thinner #60 tabs 03/27/24 amlodipine 5 mg tablet 5 mg PO DAILY #90 tabs 03/31/24 losartan 100 mg tablet 100 mg PO QDAY 03/31/24 metoprolol tartrate 25 mg tablet 25 mg PO BID #180 tabs 08/18/24 dicyclomine 20 mg tablet 20 mg PO TID #30 tabs 11/14/24 loperamide 2 mg capsule 2 mg PO TID PRN Diarrhea 11/25/24 pravastatin 40 mg tablet 40 mg PO QHS cholesterol 11/26/24 tamsulosin 0.4 mg capsule 0.4 mg PO DAILY@1730 #30 caps 12/08/24
--- NOTE | 2024-12-08 16:18 | CASEMGMT ---
NICOLE BARKLEY NOTE: No return call from Patti yanez, yet. Call placed to Patti yanez. Introduced self. Patti states she has made arrangements for pt's neighbor to go to pt's home at least 2 x's/day to empty the F/C. She is aware pt is discharging home today and she states pt's neighbor, Will, will be taking him home. Questions answered re: discharge instructions and HHC. She denies having further discharge concerns or needs. NICOLE BARKLEY to room. Pt aware he is discharging home today. He states the neighbor, Carley, that will be coming 2 x's/day to empty his catheter is a nurse. He feels comfortable with this plan. He is aware Rx has been sent to [facility] and he states his friend can pick that up this evening. Further questions answered. He denies having further questions or concerns. Mirtha CUENCA RN, CM
[2024-12-08 17:06] VITALS: BP 151/71; PULSE 61; RESP 18; TEMP 37.1; O2SAT 98
== END 2024-12-08 17:43 | disposition home health service (06) | DRG 392 ==
LOC: ED 14:45 → MS3 15:56
PROVIDERS: Family Medicine; Physician Assistant; Admitting Provider Hospitalist; Emergency Provider Emergency Medicine; PCP Family Medicine Geriatric Medicine; Visit Provider Student in an Organized Health Care Education/Training Program
DX: K52.9 Noninfective gastroenteritis and colitis, unspecified (principal); E87.1 Hypo-osmolality and hyponatremia; R62.7 Adult failure to thrive; E11.22 Type 2 diabetes mellitus with diabetic chronic kidney disease; E03.9 Hypothyroidism, unspecified; D64.9 Anemia, unspecified; Z66 Do not resuscitate; N18.31 Chronic kidney disease, stage 3a; I12.9 Hypertensive chronic kidney disease with stage 1 through stage 4 chronic kidney disease, or unspecified chronic kidney disease; I48.0 Paroxysmal atrial fibrillation; H35.30 Unspecified macular degeneration; E78.5 Hyperlipidemia, unspecified; R33.8 Other retention of urine; Z83.3 Family history of diabetes mellitus; Z79.899 Other long term (current) drug therapy; Z79.01 Long term (current) use of anticoagulants; R53.81 Other malaise; Z87.891 Personal history of nicotine dependence; Z95.0 Presence of cardiac pacemaker; Z85.038 Personal history of other malignant neoplasm of large intestine; Z90.49 Acquired absence of other specified parts of digestive tract; H54.8 Legal blindness, as defined in USA; Z60.2 Problems related to living alone; Z68.27 Body mass index [BMI] 27.0-27.9, adult
CPT/HCPCS: 36415; 51702; 80048; 80053; 81001; 85025; 85027; 94668; 97116; 97161; 97166; 97535; 99285; A4216

== ENCOUNTER 2024-12-11 06:35 | Inpatient (IN) | payer MEDICARE, SELFPAY ==
[2024-12-11] VITALS (8 sets, daily range): BP systolic 132–146; BP diastolic 60–70; PULSE 61–71; RESP 16–18; TEMP 36.2–36.6; O2SAT 97–100; BMI 28.8
--- NOTE | 2024-12-11 07:19 | EX.ED.DYSGE1 ---
HPI History of Present Illness Chief Complaint: GI Bleed Narrative Narrative: Patient is a 89-year-old male with past medical history of nonsustained ventricular tachycardia, aortic aneurysm without rupture, atrial fibrillation on Eliquis, chronic kidney disease, CHEO, right bundle branch block, type 2 diabetes who presented to the emergency department with a chief complaint of diarrhea versus bloody bowel movement. Patient states that he is legally blind and noted that around 230 this morning he had a bowel movement and was unsure if this was bloody or not and given that he is on a blood thinning medication he came here for further evaluation management. 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 Paroxysmal atrial fibrillation Hyperlipidemia Diverticulosis Type 2 diabetes mellitus Diverticulitis large intestine Diverticula of colon Home Medications ?Medication ?Instructions ?Recorded ?Last Taken ?Type levothyroxine 25 mcg tablet 25 mcg PO DAILY 02/20/24 Unknown History apixaban 2.5 mg tablet 2.5 mg PO BID blood thinner #60 03/27/24 Unknown Rx tabs amlodipine 5 mg tablet 5 mg PO DAILY #90 tabs 03/31/24 Unknown Rx losartan 100 mg tablet 100 mg PO QDAY 03/31/24 Unknown History metoprolol tartrate 25 mg tablet 25 mg PO BID #180 tabs 08/18/24 Unknown Rx dicyclomine 20 mg tablet 20 mg PO TID #30 tabs 11/14/24 Unknown Rx loperamide 2 mg capsule 2 mg PO TID PRN Diarrhea 11/25/24 Unknown History pravastatin 40 mg tablet 40 mg PO QHS cholesterol 11/26/24 Unknown History tamsulosin 0.4 mg capsule 0.4 mg PO DAILY@1730 #30 caps 12/08/24 Unknown Rx amoxicillin 875 mg-potassium 1 tab PO BID 12/11/24 Unknown History clavulanate 125 mg tablet pantoprazole 40 mg tablet,delayed 40 mg PO DAILY PRN indigestion 12/11/24 Unknown History release Allergy/AdvReac Type Severity Reaction Status Date / Time codeine AdvReac Other Verified 12/11/24 06:35 lisinopril AdvReac Other Verified 12/11/24 06:35 Family History Father CVA (cerebral vascular accident) Mother Diabetes Sister Heart disease PPM Surgical History History of appendectomy History of cataract surgery History of tonsillectomy H/O hemicolectomy Hx of cholecystectomy Social History household members: none housing: residential Smoking Status: Former smoker Smokeless tobacco user: other alcohol intake: current alcohol intake frequency: holidays/special occasions only substance use type: does not use ROS ROS ED ROS Narrative Constitutional: Denies any fevers, chills, headaches Eyes: States that he is blind as noted above Cardiovascular: Denies chest pain Respiratory: Denies shortness of breath Abdomen: Complains of diarrhea versus bloody bowel movement as noted above denies abdominal pain vomiting : Denies any urinary symptoms states he has Puente catheter in Neurological: Denies any numbness, wheeze, tingling Musculoskeletal: Denies back pain Skin: Denies any rashes or lesions EXAM Physical Exam Narrative Exam Narrative: General: Patient was lying in bed rest comfortably did not appear to be acute distress Head: Atraumatic, normocephalic Eyes: PERRL bilaterally, EOMI blood, no conjunctival injection noted Neck: Soft, supple, trachea midline Cardiovascular: Regular rate and rhythm Respiratory: Clear to auscultation bilaterally Abdomen: Soft, nondistended, tender to palpation Rectal: Patient had large bowel movement while in bed this appeared to be brown in nature was sent down for testing Extremities: +5/5 strength noted in the bilateral upper and lower extremities Neurological: Patient follow commands knew that he was at [facility] year is 2024 Skin: Warm, dry, intact no rashes or lesions noted Const Vital Signs: 12/11/24 06:36 12/11/24 06:40 12/11/24 08:40 Temperature 97.8 F 97.8 F Temperature Source Oral Oral Pulse Rate 71 67 61 Respiratory Rate 16 18 16 Blood Pressure 146/67 H 146/67 H 134/60 H Blood Pressure Mean 93 93 84 Pulse Ox 97 98 98 Oxygen Delivery Method Room Air Room Air Room Air 12/11/24 08:40 12/11/24 10:00 12/11/24 10:59 Temperature 97.5 F L 97.5 F L Temperature Source Temporal Pulse Rate 61 65 Respiratory Rate 18 16 Blood Pressure 134/60 H 137/70 H 136/66 H Blood Pressure Mean 84 92 89 Pulse Ox 98 100 Oxygen Delivery Method Room Air MDM MDM MDM Narrative Medical decision making narrative: Patient is a 89-year-old male who presents to the emergency department with a chief complaint of diarrhea versus blood in his stool. On the differential diagnose includes but not limited to upper GI bleed, lower GI bleed, C. difficile. Once workup is obtained reviewed he will be reevaluated. Patient be given IV fluids. Previous records were reviewed and the patient few weeks ago was diagnosed with colitis on CT scan with rectal pain he was treated with IV Zosyn and fluids he had negative stool studies. He is scheduled for colonoscopy in December. Patient's CBC was reviewed showed a white blood cell count of 11,000, hemoglobin 11.5, platelet count of 205. Patient sodium was 130, potassium normal 3.5, creatinine was elevated 1.35 indicating acute kidney injury. Patient lactic acid normal at 1.2, AST and ALT were 24 and 18 respectively. Patient's lipase normal at 16, urinalysis did not show any evidence of infection. Patient CTA abdomen pelvis was reviewed and showed no acute aortic abnormality advanced atherosclerosis of the aorta noted no flow-limiting stenosis involving the celiac, SMA or AB. 50 to 69% stenosis of the right renal artery. Partial colectomy uncomplicated anastomosis no site of bleeding at this time. Sigmoid diverticulosis without diverticulitis there is large volume of formed stool in the rectal vault with mild thickening of the rectal wall suggestive of colitis. Puente catheter noted bladder decompressed. Patient rectal exam returned fecal positive he was given Protonix. Discussed case with laundry washer Dr. Atkinson and he states that he will see him in consult. Once again the patient is scheduled for a colonoscopy here soon. At this point in time given that he has had multiple large bowel movements here in the emergency department he lives alone and is on Eliquis do believe he will warrant admission for further workup and evaluation. Discussed case with hospitalist Dr. Damon who is recommending discussion with the patient as to who is post to do his colonoscopy as the last time he was here in the hospital he refused his colonoscopy. He states that he is requesting transfer since he refused in the past. For back and reevaluate the patient he states a doctor friend is supposed to do his colonoscopy. When inquiring about him refusing the colonoscopy he states that he did not refuse the colonoscopy he states that they gave him prep and ultimately never did the colonoscopy. Reached back out to the hospitalist and he states that he will admit the patient here. Patient notified is agreeable plan all course concerns answered. Lab Data Labs: Laboratory Results - last 24 hr 12/11/24 12/11/24 12/11/24 06:40 07:22 07:46 WBC 11.8 H RBC 3.69 L Hgb 11.5 L Hct 33.0 L MCV 89.4 MCH 31.2 MCHC 34.8 RDW Std Deviation 44.0 H RDW Coeff of Lisa 13.5 Plt Count 205 MPV 11.6 Immature Gran % (Auto) 0.700 Neut % (Auto) 80.0 H Lymph % (Auto) 7.3 L [place] % (Auto) 10.7 H Eos % (Auto) 1.0 Baso % (Auto) 0.3 Absolute Neuts (auto) 9.5 H Absolute Lymphs (auto) 0.87 Nucleated RBC % 0 Sodium 130 L Potassium 3.5 Chloride 96 L Carbon Dioxide 21.5 Anion Gap 12 BUN 25 H Creatinine 1.31 H Estim Creat Clear Calc 43.37 L Est GFR (MDRD) Non-Af 52 L BUN/Creatinine Ratio 19.0 Glucose 134 H Lactic Acid 1.2 Calcium 8.1 Total Bilirubin 1.94 H AST 24 ALT 18 Alkaline Phosphatase 161 H Total Protein 6.6 Albumin 3.6 Globulin 3.0 Albumin/Globulin Ratio 1.2 Lipase 16 Urine Color Yellow Urine Clarity Clear Urine pH 6.0 Ur Specific [place] 1.015 Urine Protein 30 H Urine Glucose (UA) Normal Urine Ketones Negative Urine Occult Blood 150 H Urine Nitrite Negative Urine Bilirubin Negative Urine Urobilinogen Normal Ur Leukocyte Esterase 100 H Urine RBC 0-5 SEEN Urine WBC 0-5 SEEN Ur Squamous Epith Cells 0 SEEN Urine Bacteria 0 SEEN Urine Mucus 0 SEEN Radiography Diagnostic Testing: Clinical Impression(s) from Imaging Studies Abdomen/Pelvis CTA 12/11/24 07:49 IMPRESSION: 1. No acute aortic abnormality. 2. Advanced atherosclerosis of the aorta. No flow-limiting stenosis involving the celiac, SMA or AB. 3. 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 4. Partial colectomy. Uncomplicated anastomosis. No site of bleeding at this time. 5. Sigmoid diverticulosis without diverticulitis. Large volume of formed stool in the rectal vault with mild thickening of the rectal wall suggestive of stercoral colitis. Infectious or inflammatory colitis favored less but not excluded. 6. Introduction of a Puente catheter. Bladder is decompressed. 7. Non-specific left adrenal nodule. If desired, and on a nonemergent basis consider dedicated contrast-enhanced MRI. Reading Location: [id number] Discharge Plan Triage Chief Complaint: GI Bleed ED Provider: Damien Welch Dx/Rx/DC Orders Clinical Impression: GI bleed, Essential (primary) hypertension, Right bundle branch block (RBBB) with left anterior fascicular block, Impaired vision, Macular degeneration, Diarrhea, Colitis Prescriptions: No Action losartan 100 mg tablet 100 mg PO QDAY amlodipine 5 mg tablet 5 mg PO DAILY Qty: 90 3RF loperamide 2 mg capsule 2 mg PO TID PRN (Reason: Diarrhea) Rx Instructions: You may take loperamide 2 to 4 mg 3 times a day as needed for loose stools and diarrhea pravastatin 40 mg tablet 40 mg PO QHS Patient Comments: CHOLESTEROL levothyroxine 25 mcg tablet 25 mcg PO DAILY tamsulosin 0.4 mg Capsule 0.4 mg PO DAILY@1730 Qty: 30 2RF pantoprazole 40 mg tablet,delayed release (DR/EC) 40 mg PO DAILY PRN (Reason: indigestion) amoxicillin-pot clavulanate 875-125 mg tablet 1 tab PO BID dicyclomine 20 mg tablet 20 mg PO TID Qty: 30 0RF apixaban 2.5 mg tablet 2.5 mg PO BID Qty: 60 1RF metoprolol tartrate 25 mg tablet 25 mg PO BID Qty: 180 3RF Primary Care Provider: Bernard Nugent Chi Referrals: Bernard Nugent Chi, MD [Primary Care Provider] - Print Language: Lithuanian Disposition Disposition: Home, Self Care
--- OUTSIDE RECORDS SUMMARY | 2024-12-11 07:25 | XMS RPT_ITS | CCD ---
Author Organization [facility] Care Team Providers Care On Air Announcer Name Role Phone Chato Chelsy Berry Unavailable [...] Dr. Bernard Nugent Chi Referring Provider Roof RECYCLING ASSISTANT, RECYCLING ASSISTANT-Jean Paul Clayton Attending Provider Dr. Roger Gonzalez Emergency Provider Dr. Maynor Duran Admit Provider Dr. Maynor Duran Attending Provider Dr. Maynor Duran Other Provider Dr. Alana Conklin Other Provider Irene CAMPOS, ANDRES Storey Attending Provider Dr. Bernard Nugent Chi Primary Care Provider Dr. Tam Albrecht Attending Provider Dr. Salvatore Lyman Attending Provider 1([facility])-[phone] Raffi, Dr. Bernard Reardon Primary Care Provider Raffi, Dr. Bernard Reardon Referring Provider Roof RECYCLING ASSISTANT, RECYCLING ASSISTANT-C Evin Clayton Attending Provider Dr. Roger Gonzalez Emergency Provider Roger, Dr. Mcguire Admit Provider Roger, Dr. Mcguire Attending Provider Roger, Dr. Mcguire Other Provider [facility], Dr. Warner Other Provider Irene CAMPOS, PA Muriel Storey Attending Provider Dr. Tam Albrecht Attending Provider 1([facility])[phone] Dr. Salvatore Lyman Attending Provider 1([facility])57 10 Raffi, Dr. Bernard Reardon Primary Care Provider Raffi, Dr. Bernard Reardon Referring Provider Roof RECYCLING ASSISTANT, RECYCLING ASSISTANT-Jean Paul Clayton Attending Provider Raffi, Dr. Bernard Reardon Primary Care Provider Raffi, Dr. Bernard Reardon Referring Provider Roof RECYCLING ASSISTANT, RECYCLING ASSISTANT-C Evin Clayton Attending Provider Dr. Rodolfo Tobias [...] Provider Jacqui Bell Attending Provider Unavailable Roof RECYCLING ASSISTANT, RECYCLING ASSISTANT-Jean Paul Clayton Attending Provider Raffi, Dr. Brenard Reardon Primary Care Provider Raffi, Dr. Bernard Reardon Referring Provider Roof RECYCLING ASSISTANT, RECYCLING ASSISTANT-Jean Paul Clayton Attending Provider Jatinder, Dr. Reynolds [...] DO Attending Provider [phone] Salvatore Hightower DO Referring Provider Dr. Salvatore Hightower DO [...] Dr. Chase Emergency Provider Raffi AZEVEDO, Dr. Benrard Reardon Primary Care Provider Raffi AZEVDEO, Dr. Bernard Reardon Attending Provider Raffi AZEVEDO, [...] Raffi AZEVEDO, Dr. Bernard Reardon Referring Provider Nathaniel BARRERA-CXimena Attending Provider Yuri FALCON, Dr. Quezada Emergency Provider Ramana FALCON, Dr. Beasley Admit Provider Ramana FALCON, Dr. Beasley Attending Provider Raffi AZEVEDO, Dr. Bernard Reardon Primary Care Provider Jatinder AZEVEDO, Dr. Reynolds Attending Provider Jatinder AZEVEDO, Dr. Reynolds Referring Provider Ramana FALCON, Dr. Beasley Other Provider Martin AZEVEDO, Dr. Unique Granados Attending Provider Devin AZEVEDO, Dr. Steph Gandhi Attending Provider Devin AZEVEDO, Dr. Steph Gandhi Other Provider Raffi, Bernard Chi Attending Unavailable Raffi, Bernard Chi Primary Care Unavailable Raffi, Bernard Chi Referring Unavailable Raffi, Bernard Chi Attending Unavailable Raffi, Bernard Chi Primary Care Unavailable Raffi, Bernard Chi Referring Unavailable Raffi, Bernard Chi Primary Care Unavailable Jatinder, Dovray Attending Unavailable Raffi, Bernard Chi Referring Unavailable Raffi, Bernard Chi Attending Unavailable Raffi, Bernard Chi Primary Care Unavailable Unique Salazar Admitting Unavailable Unique Salazar Consulting Unavailable Tereletsky, Ankit Attending Unavailable Raffi, Bernard Chi Primary Care Unavailable TereletskyAnkit Consulting Unavailable Raffi, Bernard Chi Attending Unavailable Raffi, Bernard Chi Referring Unavailable Raffi, Bernard Chi Primary Care Unavailable Shaila Haq Attending Unavailable Raffi, Bernard Chi Primary Care Unavailable Alex Atkinson Attending Unavailable Raffi, Bernard Chi Primary Care Unavailable Raffi, Bernard Chi Primary Care Unavailable Jatinder, Rodolfo Referring Unavailable Jatinder, Dovray Attending Unavailable Raffi, Bernard Chi Referring Unavailable Raffi, Bernard Chi Attending Unavailable Raffi, Bernard Chi Primary Care Unavailable Raffi, Bernard Chi Primary Care Unavailable Schwiger, Salvatore Attending Unavailable Schwiger, Salvatore Referring Unavailable Raffi, Bernard Chi Attending Unavailable [...] Unique L Consulting Unavailable White, Unique L Admitting Unavailable Ankit Last Attending Unavailable Raffi, Bernard Chi Primary Care Unavailable Mosteller, Ramos Admitting Unavailable Raffi, Bernard Chi Primary Care Unavailable Mosteller, Ramos Consulting Unavailable Koram, Steph Oksana Attending Unavailable White, Unique L Consulting Unavailable White, Unique L Attending Unavailable White, Unique L Attending Unavailable Raffi, Bernard Chi Primary Care Unavailable Mosteller, Ramos Consulting Unavailable Mosteller, Ramos Admitting Unavailable White, Unique L Consulting Unavailable White, Unique L Attending Unavailable Raffi, Bernard Chi Primary Care Unavailable Mosteller, Ramos Consulting Unavailable Mosteller, Ramos Admitting Unavailable White, Unique L Consulting Unavailable Koram, Steph Oksana Attending Unavailable Koram, Steph Oksana Consulting Unavailable Mosteller, Ramos Attending Unavailable Rfafi, Bernard Chi Referring Unavailable Raffi, Bernard Chi Primary Care Unavailable Ximena Armstrong Attending Unavailable Jatinder, Rodolfo Attending Unavailable Jatinder, Rodolfo Referring Unavailable Raffi, Bernard Chi Primary Care Unavailable Jatinder, Rodolfo Attending Unavailable Jatinder, Rodolfo Referring Unavailable Raffi, Bernard Chi Primary Care Unavailable Raffi, Bernard Chi Primary Care Unavailable Jatinder, Rodolfo Referring Unavailable Jatinder, Rodolfo Attending Unavailable Raffi, Bernard Chi Referring Unavailable Raffi, Bernard Chi Attending Unavailable Raffi, Bernard Chi Primary Care Unavailable Allergies Allergy Classification Reported Allergen(s) Allergy Type Date of Onset Reaction(s) Facility (20 sources) codeine; Translations: [CODEINE] drug allergy 2 [facility], Other [facility] Work Phone: Comment on above: HALLUCINATIONS (3 sources) Losartan Drug Allergy 2 COUGH [facility] Work Phone: (20 sources) Lisinopril Drug Allergy 2 Other [facility] (1 source) Lisinopril Drug Allergy 5 [facility] Repository Medications Current Medications Medication Drug [...] tablet Discontinued 2.5 mg PO DAILY 90 August 08, 2023 12:00am March 31, 2024 12:56pm dicyclomine hydrochloride 20 mg oral tablet (4 sources) Anticholinergic Start: 11-14-2024 take 1 tablet by mouth three times daily Dicyclomine 20 mg tablet Active 20 mg PO THREE TIMES A DAY November 14, 2024 12:00am levothyroxine sodium 0.025 mg oral tablet (11 sources) l-Thyroxine Start: 02-20-2024 take 1 tablet by mouth once daily Levothyroxine 25 mcg tablet Active 25 ug PO DAILY February 20, 2024 12:00am loperamide hydrochloride 2 mg oral capsule (7 sources) Opioid Agonist Start: 11-14-2024 End: 11-25-2024 [...] tablet Discontinued 100 mg PO DAILY 90 3 January 24, 2022 1:26pm June 19, 2022 11:59am tamsulosin hydrochloride 0.4 mg oral capsule (20 sources) alpha-Adrenergic Juvencio Start: 12-08-2024 take 1 capsule by mouth once daily Tamsulosin 0.4 mg Capsule Active 0.4 mg PO DAILY@1730 30 2 December 08, 2024 12:00am Start: 02-04-2022 End: 07-11-2023 take 1 capsule by mouth at bedtime Tamsulosin (Flomax) 0.4 mg Capsule Discontinued 0.4 mg PO AT BEDTIME February 04, 2022 12:00am July 11, 2023 12:11pm prostate Start: 12-07-2021 End: 01-24-2022 take 1 capsule by mouth at bedtime Tamsulosin 0.4 mg capsule Discontinued 0.4 mg PO AT BEDTIME December 07, 2021 12:00am January 24, 2022 1:09pm Completed/Discontinued Medications Medication Drug Class(es) Dates Sig (Normalized) Sig (Original) OXYCODONE-ACETAMIN OPHEN (6 sources) Opioid Agonist Start: 11-05-2014 End: 11-09-2014 take 1-2 tablets by mouth every four hours as needed PERCOCET 5-325 MG TABS 1-2 tablets by mouth every 4 hours as needed OXYCODONE-ACETAMINO PHEN [id number] Annalisa Jones RN Start: 11-05-2014 take 1-2 tablets by mouth every four hours as needed PERCOCET 5-325 MG TABS 1-2 tablets by mouth every 4 hours as needed OXYCODONE-ACETAMINOPHEN [id number] Annalisa Jones RN Start: 11-05-2014 End: 11-09-2014 take 1-2 tablets by mouth every four hours as needed PERCOCET 5-325 MG TABS 1-2 tablets by mouth every 4 hours as needed OXYCODONE-ACETAMINOPHEN [id number] Muriel Bonilla PA-C apixaban 2.5 mg oral tablet (20 sources) Factor Xa Inhibitor Start: 02-01-2023 End: 03-27-2024 take 1 tablet by mouth twice daily Apixaban 2.5 mg tablet Discontinued 2.5 mg PO TWICE A DAY 180 3 March 19, 2024 10:20am March 27, 2024 [...] TABS One tablet by mouth daily ASPIRIN [id number] Rodolfo Tobias MD Start: 05-26-2014 take 1 tablet by valeriy th once daily ASPIRIN 81 MG TABS One tablet by mouth daily ASPIRIN [id number] Rodolfo Tobias MD cholecalciferol 0.025 mg oral capsule (20 sources) Vitamin D Start: 01-24-2022 End: 11-11-2023 take 1 capsule by mouth once daily Cholecalciferol (Vitamin D3) 25 mcg (1,000 unit) capsule Discontinued 25 ug PO DAILY January 24, 2022 12:00am November 11, 2023 11:28am vitamin citalopram 10 mg oral tablet (3 sources) Serotonin Reuptake Inhibitor Start: 11-25-2024 End: 12-03-2024 take 1 tablet by mouth once daily Citalopram 10 mg tablet Discontinued 10 mg PO daily November 25, 2024 12:00am December 03, 2024 5:08pm 24 hr dilTIAZem hydrochloride 120 mg extended release oral capsule (20 sources) Calcium Channel Juvencio Start: 12-10-2019 End: 12-19-2021 take 1 capsule by mouth once daily Diltiazem Hcl 120 mg capsule,extended release 24hr Discontinued 120 mg PO DAILY 90 4 March 02, 2021 2:12pm October 26, 2021 12:40pm docusate sodium 50 mg / sennosides, assisted 8.6 mg oral tablet (20 sources) Start: 12-22-2021 End: 06-19-2022 Sennosides-Docusate Sodium (Stool Softener-Stimulant Laxat) 8.6-50 mg Tablet Discontinued 2 {tbl} PO TWICE DAILY NEEDED as needed for Constipation 0 0 December 22, 2021 12:00am June 19, 2022 11:59am Rmgk-jnw-nitnebs empagliflozin 10 mg oral tablet (20 sources) Sodium-Glucose Cotransporter 2 Inhibitor Start: 08-16-2022 End: 09-18-2022 Empagliflozin (Jardiance) 10 mg tablet Discontinued 10 mg PO DAILY August 16, 2022 12:00am September 18, 2022 3:48pm ordered by Dr. Nugent for hgb a1c of 8.5 furosemide 40 mg oral tablet (20 sources) Loop Diuretic Start: 07-05-2023 End: 12-03-2024 Furosemide 40 mg tablet Discontinued 40 mg PO .QSATSUN November 25, 2024 7:42am December 03, 2024 5:09pm edema Hold if creatinine is more than 0.5 mg/dL above the baseline Start: 07-10-2022 End: 07-05-2023 take 1 tablet by mouth once daily Furosemide 40 mg tablet Discontinued 40 mg PO DAILY 90 3 October 30, 2022 11:27am July 05, 2023 [...] than 0.5 mg/dL above the baseline glimepiride 1 mg oral tablet (20 sources) Sulfonylurea Start: 11-25-2024 End: 12-03-2024 take 1 tablet by mouth once daily Glimepiride 1 mg tablet Discontinued 1 mg PO daily November 25, 2024 12:00am December 03, 2024 5:09pm Start: 02-01-2023 take 1 mg by mouth [...] TABS One tablet by mouth daily GLIMEPIRIDE [id number] Rodolfo Tobias MD hydroCHLOROthiazide 25 mg / losartan potassium 100 [...] 1/2 tablet by mouth daily LOSARTAN POTASSIUM-HCTZ [id number] Rodolfo Tobias MD Start: 12-30-2013 LOSARTAN MOY SIUM-HCTZ 100-12.5 MG TABS as directed LOSARTAN POTASSIUM-HCTZ [id number] Tj Boswell magnesium oxide 400 mg oral [...] am, 500 mg at bedtime METFORMIN HCL [id number] Rodolfo Tobias MD metoprolol tartrate 25 mg [...] Tablet Discontinued 25 mg PO DAILY 30 2 December 22, 2021 12:00am January 24, 2022 [...] hr Discontinued 50 mg PO daily 45 3 October 20, 2018 4:29pm January 13, 2019 [...] Start: 05-26-2014 take 2 tablets by mo [facility] once daily TOPROL XL 50 MG [id number] Two tablets by mouth daily METOPROLOL SUCCINATE [id number] Rodolfo Tobias MD Start: 05-26-2014 take 1 tablet by mouth once da tiago TOPROL XL 100 MG [id number] One tablet by mouth daily METOPROLOL SUCCINATE [id number] Rodolfo Tobias MD Start: 05-26-2014 take 1 tablet by mouth once da tiago TOPROL XL 100 MG [id number] One tablet by mouth daily METOPROLOL SUCCINATE [id number] Rodolfo Tobias MD Start: 05-26-2014 take 2 tablets by [facility] once daily TOPROL XL 50 MG [id number] Two tablets by mouth daily METOPROLOL SUCCINATE [id number] Rodolfo Tobias MD Start: 05-26-2014 take 1 tablet by mouth once da tiago TOPROL XL 50 MG [id number] One tablet by mouth daily METOPROLOL SUCCINATE [id number] Rodolfo Tobias MD MULTIPLE VITAMINS-MINERALS (2 sources) Start: 12-30-2013 PRESERVISION A REDS TABS as directed MULTIPLE VITAMINS-MINERALS [id number] Tj Boswell MULTIPLE VITAMINS-MINERALS (1 source) Start: 12-30-2013 PRESERVISION A REDS TABS as directed MULTIPLE VITAMINS-MINERALS [id number] Tj Boswell Av-Nf-Rt-Vit T-Zwzvg-Ngcr-Ze ax (20 sources) Start: 09-03-2016 End: 05-05-2019 Eq-Vy-Jb-Vit A-Fbuae-Wtta-Ze ax Discontinued 1 EACH PO September 03, 2016 4:57pm May 05, 2019 3:43pm Start: 09-03-2016 End: 05-05-2019 Bp-Cn-Fv-Vit E-Bcvhz-Lbur-Ze ax Discontinued 1 EACH PO September 02, 2016 11:00pm May 05, 2019 2:43pm Start: 09-03-2016 End: 05-05-2019 Xx-Dr-Dx-Vit R-Piawf-Hjbw-Ze ax Discontinued 1 EACH PO September 03, 2016 12:00am May 05, 2019 3:43pm Yx-Ov-Vs-Vit C-Hivtw-Hngy-Ze ax 1 EACH tablet (11 sources) Start: 09-03-2016 End: 05-05-2019 Ri-Xt-Mm-Vit U-Unvcw-Ukyq-Ze ax 1 EACH tablet Discontinued 1 NMA PO September 03, 2016 12:00am May 05, 2019 3:43pm Start: 09-03-2016 End: 05-05-2019 Px-Cv-Lj-Vit Y-Kfuzx-Kdbg-Ze ax 1 EACH tablet Discontinued 1 NMA [...] pantoprazole 40 mg delayed release oral tablet (11 sources) Proton Pump Inhibitor Start: 03-31-2024 End: [...] 40 MG TABS as directed PRAVASTATIN SODIUM [id number] Tj Boswell rivaroxaban 20 mg oral tablet (20 sources) Factor Xa Inhibitor Start: 04-30-2022 End: 06-19-2022 take 1 tablet by mouth once daily at dinner Rivaroxaban (Xarelto) 20 mg tablet Discontinued 20 mg PO DAILY 30 0 April 30, 2022 1:00am June 19, 2022 11:59am must administer with evening meal traMADol hydrochloride 50 mg oral tablet (20 [...] Da te Episodic/Chronic Anal and rectal conditions (4 sources) Rectal pain; Translations: [Other specified diseases of anus and rectum] 11-30-2024 Episodic Aortic; peripheral; and visceral artery aneurysms (16 sources) Aortic aneurysm; Translations: [Aortic aneurysm of unspecified site, without rupture] 07-11-2023 Chronic Blindness and vision defects (2 sources) Visual impairment; Translations: [Unspecified visual loss] 12-03-2024 [...] Onset: 05-31-2014 05-31-2014 Chronic E Codes: Fall (13 sources) Fall; Translations: [Unspecified fall, initial encounter] Episodic Essential hypertension (20 sources) Hypertensive disorder; Translations: [Essential hypertension] Onset: 05-25-2014 05-25-2014 Chronic Genitourinary symptoms and ill-defined conditions (6 sources) Acute retention of urine ; Translations: [Other retention of urine] Onset: 12-08-2024 12-03-2024 Episodic Heart valve disorders (20 sources) Tricuspid incompetence, non-rheumatic ; Translations: [Nonrheumatic tricuspid (valve) insufficiency] 12-31-2018 Chronic Noninfectious gastroenteritis (17 sources) Colitis; Translations: [Noninfective gastroenteritis and colitis, unspecified] Onset: 12-07-2024 11-11-2024 Episodic Nonmalignant breast conditions (20 sources) Breast lump; Translations: [Unspecified lump in the left breast, unspecified quadrant] Episodic Other aftercare (6 sources) Long-term current use of anticoagulant; Translations: [parts counterman (current) use of anticoagulants] 11-12-2024 Episodic Other [...] [Diarrhea, unspecified] 12-31-2018 Episodic Other gastrointestinal disorders (12 sources) Occult blood in stools; Translations: [Other [...] conditions (not mental disorders or infectious disease) (4 sources) Radiology result abnormal; Translations: [Abnormal findings on diagnostic imaging of other specified body structures] 11-30-2024 Chronic Retinal detachments; defects; vascular occlusion; and retinopathy (2 sources) Degenerative disorder of macula ; Translations: [Unspecified macular degeneration] 12-03-2024 Chronic Syncope (2 sources) Syncope and collapse; Translations: [Syncope and collapse] Episodic Unclassified (1 source) Long-term drug therapy; Translations: [Long-term (current) use of other medications] Onset: 05-31-2014 05-31-2014 Unclassified (4 sources) Dr. Nugent will need to schedule [...] Onset: 05-29-2024 Episodic Open wounds of extremities (12 sources) Laceration of left lower leg; Translations: [...] Test Name Value Interpretation Reference Range Facility Basic Metabolic Profile (BMP )on 12-15-2024 BUN Normal 4-19 [facility] Comment on above: Result Comment: Canc elled via OM: Order cancelled - Patient discharged Performed By: #### L 100.0100, L500.2500 ####[facility] [address] [place], [address] BUN/CRE Normal 10-20 [facility] Comment on above: Result Comment: Canc elled via OM: Order cancelled - Patient discharged Performed By: #### L 100.0100, L500.2500 ####[facility] [address] [place], [address] Calcium Normal 7.6-11.0 [facility] Comment on above: Result Comment: Canc elled via OM: Order cancelled - Patient discharged Performed By: #### L 100.0100, L500.2500 ####[facility] [address] [place], [address] CL Normal 98-108 [facility] Comment on above: Result Comment: Canc elled via OM: Order cancelled - Patient discharged Performed By: #### L 100.0100, L500.2500 ####[facility] [address] [place], [address] CO2 Normal 21.0-32.0 [facility] Comment on above: Result Comment: Canc elled via OM: Order cancelled - Patient discharged Performed By: #### L 100.0100, L500.2500 ####[facility] [address] [place], [address] CREAT,SERUM Normal 0.70-1.20 [facility] Comment on above: Result Comment: Canc elled via OM: Order cancelled - Patient discharged Performed By: #### L 100.0100, L500.2500 ####[facility] [address] [place], [address] eGFR Normal >60 [facility] Comment on above: Result Comment: Canc elled via OM: Order cancelled - Patient discharged Performed By: #### L 100.0100, L500.2500 ####[facility] [address] [place], [address] GAP Normal 5-15 [facility] Comment on above: Result Comment: Canc elled via OM: Order cancelled - Patient discharged Performed By: #### L 100.0100, L500.2500 ####[facility] [address] [place], [address] GLU Normal 70-99 [facility] Comment on above: Result Comment: Canc elled via OM: Order cancelled - Patient discharged Performed By: #### L 100.0100, L500.2500 ####[facility] [address] [place], [address] Potassium Normal 3.3-5.1 [facility] Comment on above: Result Comment: Canc elled via OM: Order cancelled - Patient discharged Performed By: #### L 100.0100, L500.2500 ####[facility] [address] [place], [address] Basic Metabolic Profile (BMP) Normal 133-145 [facility] Comment on above: Result Comment: Canc elled via OM: Order cancelled - Patient discharged Performed By: #### L 100.0100, L500.2500 ####[facility] [address] [place], [address] CBC W/Diff, Automatedon 07- Absolute Neut Normal 2.0-7.7 [facility] Comment on above: Result Comment: Canc elled via OM: Order cancelled - Patient discharged Performed By: #### L 100.0100, L500.2500 ####[facility] [address] [place], [address] HCT Normal 40-54 [facility] Comment on above: Result Comment: Canc elled via OM: Order cancelled - Patient discharged Performed By: #### L 100.0100, L500.2500 ####[facility] [address] [place], [address] HGB Normal 13.0-16.5 [facility] Comment on above: Result Comment: Canc elled via OM: Order cancelled - Patient discharged Performed By: #### L 100.0100, L500.2500 ####[facility] [address] [place], [address] MCH Normal 27.0-32.0 [facility] Comment on above: Result Comment: Canc elled via OM: Order cancelled - Patient discharged Performed By: #### L 100.0100, L500.2500 ####[facility] [address] [place], [address] MCHC Normal 32-36 [facility] Comment on above: Result Comment: Canc elled via OM: Order cancelled - Patient discharged Performed By: #### L 100.0100, L500.2500 ####[facility] [address] [place], [address] MCV Normal 80-94 [facility] Comment on above: Result Comment: Canc elled via OM: Order cancelled - Patient discharged Performed By: #### L 100.0100, L500.2500 ####[facility] [address] [place], [address] NEUT% Normal 47-70 [facility] Comment on above: Result Comment: Canc elled via OM: Order cancelled - Patient discharged Performed By: #### L 100.0100, L500.2500 ####[facility] [address] [place], [address] PLT Normal 150-450 [facility] Comment on above: Result Comment: Canc elled via OM: Order cancelled - Patient discharged Performed By: #### L 100.0100, L500.2500 ####[facility] [address] [place], [address] RBC Normal 4.6-6.2 [facility] Comment on above: Result Comment: Canc elled via OM: Order cancelled - Patient discharged Performed By: #### L 100.0100, L500.2500 ####[facility] [address] [place], [address] RDW CV Normal 11.6-14.6 [facility] Comment on above: Result Comment: Canc elled via OM: Order cancelled - Patient discharged Performed By: #### L 100.0100, L500.2500 ####[facility] [address] [place], [address] RDW SD Normal 35.1-43.9 [facility] Comment on above: Result Comment: Canc elled via OM: Order cancelled - Patient discharged Performed By: #### L 100.0100, L500.2500 ####[facility] [address] [place], [address] WBC Normal 4.4-11.0 [facility] Comment on above: Result Comment: Canc elled via OM: Order cancelled - Patient discharged Performed By: #### L 100.0100, L500.2500 ####[facility] [address] [place], [address] Basic Metabolic Profile (BMP )on 12-14-2024 BUN Normal 4-19 [facility] Comment on above: Result Comment: Canc elled via OM: Order cancelled - Patient discharged Performed By: #### L 500.2500, L100.0100 ####[facility] [address] [place], [address] BUN/CRE Normal 10-20 [facility] Comment on above: Result Comment: Canc elled via OM: Order cancelled - Patient discharged Performed By: #### L 500.2500, L100.0100 ####[facility] [address] [place], [address] Calcium Normal 7.6-11.0 [facility] Comment on above: Result Comment: Canc elled via OM: Order cancelled - Patient discharged Performed By: #### L 500.2500, L100.0100 ####[facility] [address] [place], [address] CL Normal 98-108 [facility] Comment on above: Result Comment: Canc elled via OM: Order cancelled - Patient discharged Performed By: #### L 500.2500, L100.0100 ####[facility] [address] [place], [place], [address] CO2 Normal 21.0-32.0 [facility] Comment on above: Result Comment: Canc elled via OM: Order cancelled - Patient discharged Performed By: #### L 500.2500, L100.0100 ####[facility] [address] [place], [address] CREAT,SERUM Normal 0.70-1.20 [facility] Comment on above: Result Comment: Canc elled via OM: Order cancelled - Patient discharged Performed By: #### L 500.2500, L100.0100 ####[facility] [address] [place], [address] eGFR Normal >60 [facility] Comment on above: Result Comment: Canc elled via OM: Order cancelled - Patient discharged Performed By: #### L 500.2500, L100.0100 ####[facility] [address] [place], [address] GAP Normal 5-15 [facility] Comment on above: Result Comment: Canc elled via OM: Order cancelled - Patient discharged Performed By: #### L 500.2500, L100.0100 ####[facility] [address] [place], [address] GLU Normal 70-99 [facility] Comment on above: Result Comment: Canc elled via OM: Order cancelled - Patient discharged Performed By: #### L 500.2500, L100.0100 ####[facility] [address] [place], [address] Potassium Normal 3.3-5.1 [facility] Comment on above: Result Comment: Canc elled via OM: Order cancelled - Patient discharged Performed By: #### L 500.2500, L100.0100 ####[facility] [address] [place], [address] Basic Metabolic Profile (BMP) Normal 133-145 [facility] Comment on above: Result Comment: Canc elled via OM: Order cancelled - Patient discharged Performed By: #### L 500.2500, L100.0100 ####[facility] [address] [place], [address] CBC W/Diff, Automatedon 07-2 Absolute Neut Normal 2.0-7.7 [facility] Comment on above: Result Comment: Canc elled via OM: Order cancelled - Patient discharged Performed By: #### L 500.2500, L100.0100 ####[facility] [address] [place] [place], [address] HCT Normal 40-54 [facility] Comment on above: Result Comment: Canc elled via OM: Order cancelled - Patient discharged Performed By: #### L 500.2500, L100.0100 ####[facility] [address] [place], [address] HGB Normal 13.0-16.5 [facility] Comment on above: Result Comment: Canc elled via OM: Order cancelled - Patient discharged Performed By: #### L 500.2500, L100.0100 ####[facility] [address] [place], [address] MCH Normal 27.0-32.0 [facility] Comment on above: Result Comment: Canc elled via OM: Order cancelled - Patient discharged Performed By: #### L 500.2500, L100.0100 ####[facility] [address] [place], [address] MCHC Normal 32-36 [facility] Comment on above: Result Comment: Canc elled via OM: Order cancelled - Patient discharged Performed By: #### L 500.2500, L100.0100 ####[facility] [address] [place], [address] MCV Normal 80-94 [facility] Comment on above: Result Comment: Canc elled via OM: Order cancelled - Patient discharged Performed By: #### L 500.2500, L100.0100 ####[facility] [address] [place], [address] NEUT% Normal 47-70 [facility] Comment on above: Result Comment: Canc elled via OM: Order cancelled - Patient discharged Performed By: #### L 500.2500, L100.0100 ####[facility] [address] [place] [place], [address] PLT Normal 150-450 [facility] Comment on above: Result Comment: Canc elled via OM: Order cancelled - Patient discharged Performed By: #### L 500.2500, L100.0100 ####[facility] [address] [place], [address] RBC Normal 4.6-6.2 [facility] Comment on above: Result Comment: Canc elled via OM: Order cancelled - Patient discharged Performed By: #### L 500.2500, L100.0100 ####[facility] [address] [place], [address] RDW CV Normal 11.6-14.6 [facility] Comment on above: Result Comment: Canc elled via OM: Order cancelled - Patient discharged Performed By: #### L 500.2500, L100.0100 ####[facility] [address] [place], [address] RDW SD Normal 35.1-43.9 [facility] Comment on above: Result Comment: Canc elled via OM: Order cancelled - Patient discharged Performed By: #### L 500.2500, L100.0100 ####[facility] [address] [place], [address] WBC Normal 4.4-11.0 [facility] Comment on above: Result Comment: Canc elled via OM: Order cancelled - Patient discharged Performed By: #### L 500.2500, L100.0100 ####[facility] [address] [place], [address] Basic Metabolic Profile (BMP )on 12-13-2024 BUN Normal 4-19 [facility] Comment on above: Result Comment: Canc elled via OM: Order cancelled - Patient discharged Performed By: #### L 100.0100, L500.2500 ####[facility] [address] [place], [address] BUN/CRE Normal 10-20 [facility] Comment on above: Result Comment: Canc elled via OM: Order cancelled - Patient discharged Performed By: #### L 100.0100, L500.2500 ####[facility] [address] [place], [address] Calcium Normal 7.6-11.0 [facility] Comment on above: Result Comment: Canc elled via OM: Order cancelled - Patient discharged Performed By: #### L 100.0100, L500.2500 ####[facility] [address] [place], [address] CL Normal 98-108 [facility] Comment on above: Result Comment: Canc elled via OM: Order cancelled - Patient discharged Performed By: #### L 100.0100, L500.2500 ####[facility] [address] [place], [address] CO2 Normal 21.0-32.0 [facility] Comment on above: Result Comment: Canc elled via OM: Order cancelled - Patient discharged Performed By: #### L 100.0100, L500.2500 ####[facility] [address] [place], [address] CREAT,SERUM Normal 0.70-1.20 [facility] Comment on above: Result Comment: Canc elled via OM: Order cancelled - Patient discharged Performed By: #### L 100.0100, L500.2500 ####[facility] [address] [place], [address] eGFR Normal >60 [facility] Comment on above: Result Comment: Canc elled via OM: Order cancelled - Patient discharged Performed By: #### L 100.0100, L500.2500 ####[facility] [address] [place], [address] GAP Normal 5-15 [facility] Comment on above: Result Comment: Canc elled via OM: Order cancelled - Patient discharged Performed By: #### L 100.0100, L500.2500 ####[facility] [address] [place], [address] GLU Normal 70-99 [facility] Comment on above: Result Comment: Canc elled via OM: Order cancelled - Patient discharged Performed By: #### L 100.0100, L500.2500 ####[facility] [address] [place], [address] Potassium Normal 3.3-5.1 [facility] Comment on above: Result Comment: Canc elled via OM: Order cancelled - Patient discharged Performed By: #### L 100.0100, L500.2500 ####[facility] [address] [place], [address] Basic Metabolic Profile (BMP) Normal 133-145 [facility] Comment on above: Result Comment: Canc elled via OM: Order cancelled - Patient discharged Performed By: #### L 100.0100, L500.2500 ####[facility] [address] [place], [address] CBC W/Diff, Automatedon 07-2 -2024 Absolute Neut Normal 2.0-7.7 [facility] Comment on above: Result Comment: Canc elled via OM: Order cancelled - Patient discharged Performed By: #### L 100.0100, L500.2500 ####[facility] [address] [place], [address] HCT Normal 40-54 [facility] Comment on above: Result Comment: Canc elled via OM: Order cancelled - Patient discharged Performed By: #### L 100.0100, L500.2500 ####[facility] [address] [place], [address] HGB Normal 13.0-16.5 [facility] Comment on above: Result Comment: Canc elled via OM: Order cancelled - Patient discharged Performed By: #### L 100.0100, L500.2500 ####[facility] [address] [place], [address] MCH Normal 27.0-32.0 [facility] Comment on above: Result Comment: Canc elled via OM: Order cancelled - Patient discharged Performed By: #### L 100.0100, L500.2500 ####[facility] [address] [place], [address] MCHC Normal 32-36 [facility] Comment on above: Result Comment: Canc elled via OM: Order cancelled - Patient discharged Performed By: #### L 100.0100, L500.2500 ####[facility] [address] [place], [address] MCV Normal 80-94 [facility] Comment on above: Result Comment: Canc elled via OM: Order cancelled - Patient discharged Performed By: #### L 100.0100, L500.2500 ####[facility] [address] [place], [address] NEUT% Normal 47-70 [facility] Comment on above: Result Comment: Canc elled via OM: Order cancelled - Patient discharged Performed By: #### L 100.0100, L500.2500 ####[facility] [address] [place], [address] PLT Normal 150-450 [facility] Comment on above: Result Comment: Canc elled via OM: Order cancelled - Patient discharged Performed By: #### L 100.0100, L500.2500 ####[facility] [address] [place], [address] RBC Normal 4.6-6.2 [facility] Comment on above: Result Comment: Canc elled via OM: Order cancelled - Patient discharged Performed By: #### L 100.0100, L500.2500 ####[facility] [address] [place], [address] RDW CV Normal 11.6-14.6 [facility] Comment on above: Result Comment: Canc elled via OM: Order cancelled - Patient discharged Performed By: #### L 100.0100, L500.2500 ####[facility] [address] [place] [place], [address] RDW SD Normal 35.1-43.9 [facility] Comment on above: Result Comment: Canc elled via OM: Order cancelled - Patient discharged Performed By: #### L 100.0100, L500.2500 ####[facility] [address] [place], [address] WBC Normal 4.4-11.0 [facility] Comment on above: Result Comment: Canc elled via OM: Order cancelled - Patient discharged Performed By: #### L 100.0100, L500.2500 ####[facility] [address] [place], [address] Basic Metabolic Profile (BMP )on 12-12-2024 BUN Normal 4-19 [facility] Comment on above: Result Comment: Canc elled via OM: Order cancelled - Patient discharged Performed By: #### L 100.0100, L500.2500 ####[facility] [address] [place], [address] BUN/CRE Normal 10-20 [facility] Comment on above: Result Comment: Canc elled via OM: Order cancelled - Patient discharged Performed By: #### L 100.0100, L500.2500 ####[facility] [address] [place], [address] Calcium Normal 7.6-11.0 [facility] Comment on above: Result Comment: Canc elled via OM: Order cancelled - Patient discharged Performed By: #### L 100.0100, L500.2500 ####[facility] [address] [place], [address] CL Normal 98-108 [facility] Comment on above: Result Comment: Canc elled via OM: Order cancelled - Patient discharged Performed By: #### L 100.0100, L500.2500 ####[facility] [address] [place], [address] CO2 Normal 21.0-32.0 [facility] Comment on above: Result Comment: Canc elled via OM: Order cancelled - Patient discharged Performed By: #### L 100.0100, L500.2500 ####[facility] [address] [place], [address] CREAT,SERUM Normal 0.70-1.20 [facility] Comment on above: Result Comment: Canc elled via OM: Order cancelled - Patient discharged Performed By: #### L 100.0100, L500.2500 ####[facility] [address] [place], [address] eGFR Normal >60 [facility] Comment on above: Result Comment: Canc elled via OM: Order cancelled - Patient discharged Performed By: #### L 100.0100, L500.2500 ####[facility] [address] [place], [address] GAP Normal 5-15 [facility] Comment on above: Result Comment: Canc elled via OM: Order cancelled - Patient discharged Performed By: #### L 100.0100, L500.2500 ####[facility] [address] [place], [address] GLU Normal 70-99 [facility] Comment on above: Result Comment: Canc elled via OM: Order cancelled - Patient discharged Performed By: #### L 100.0100, L500.2500 ####[facility] [address] [place], [address] Potassium Normal 3.3-5.1 [facility] Comment on above: Result Comment: Canc elled via OM: Order cancelled - Patient discharged Performed By: #### L 100.0100, L500.2500 ####[facility] [address] [place], [address] Basic Metabolic Profile (BMP) Normal 133-145 [facility] Comment on above: Result Comment: Canc elled via OM: Order cancelled - Patient discharged Performed By: #### L 100.0100, L500.2500 ####[facility] [address] [place], [address] CBC W/Diff, Automatedon 07-2 -2024 Absolute Neut Normal 2.0-7.7 [facility] Comment on above: Result Comment: Canc elled via OM: Order cancelled - Patient discharged Performed By: #### L 100.0100, L500.2500 ####[facility] [address] [place], [address] HCT Normal 40-54 [facility] Comment on above: Result Comment: Canc elled via OM: Order cancelled - Patient discharged Performed By: #### L 100.0100, L500.2500 ####[facility] [address] [place], [address] HGB Normal 13.0-16.5 [facility] Comment on above: Result Comment: Canc elled via OM: Order cancelled - Patient discharged Performed By: #### L 100.0100, L500.2500 ####[facility] [address] [place], [address] MCH Normal 27.0-32.0 [facility] Comment on above: Result Comment: Canc elled via OM: Order cancelled - Patient discharged Performed By: #### L 100.0100, L500.2500 ####[facility] [address] [place], [address] MCHC Normal 32-36 [facility] Comment on above: Result Comment: Canc elled via OM: Order cancelled - Patient discharged Performed By: #### L 100.0100, L500.2500 ####[facility] [address] [place], [address] MCV Normal 80-94 [facility] Comment on above: Result Comment: Canc elled via OM: Order cancelled - Patient discharged Performed By: #### L 100.0100, L500.2500 ####[facility] [address] [place], [address] NEUT% Normal 47-70 [facility] Comment on above: Result Comment: Canc elled via OM: Order cancelled - Patient discharged Performed By: #### L 100.0100, L500.2500 ####[facility] [address] [place], [address] PLT Normal 150-450 [facility] Comment on above: Result Comment: Canc elled via OM: Order cancelled - Patient discharged Performed By: #### L 100.0100, L500.2500 ####[facility] [address] [place], [address] RBC Normal 4.6-6.2 [facility] Comment on above: Result Comment: Canc elled via OM: Order cancelled - Patient discharged Performed By: #### L 100.0100, L500.2500 ####[facility] [address] [place], [address] RDW CV Normal 11.6-14.6 [facility] Comment on above: Result Comment: Canc elled via OM: Order cancelled - Patient discharged Performed By: #### L 100.0100, L500.2500 ####[facility] [address] [place], [address] RDW SD Normal 35.1-43.9 [facility] Comment on above: Result Comment: Canc elled via OM: Order cancelled - Patient discharged Performed By: #### L 100.0100, L500.2500 ####[facility] [address] [place], [address] WBC Normal 4.4-11.0 [facility] Comment on above: Result Comment: Canc elled via OM: Order cancelled - Patient discharged Performed By: #### L 100.0100, L500.2500 ####[facility] [address] [place], [address] Basic Metabolic Profile (BMP )on 12-11-2024 BUN Normal 4-19 [facility] Comment on above: Result Comment: Canc elled via OM: Order cancelled - Patient discharged Performed By: #### L 100.0100, L500.2500 ####[facility] [address] [place], [address] BUN/CRE Normal 10-20 [facility] Comment on above: Result Comment: Canc elled via OM: Order cancelled - Patient discharged Performed By: #### L 100.0100, L500.2500 ####[facility] [address] [place], [address] Calcium Normal 7.6-11.0 [facility] Comment on above: Result Comment: Canc elled via OM: Order cancelled - Patient discharged Performed By: #### L 100.0100, L500.2500 ####[facility] [address] [place], [address] CL Normal 98-108 [facility] Comment on above: Result Comment: Canc elled via OM: Order cancelled - Patient discharged Performed By: #### L 100.0100, L500.2500 ####[facility] [address] [place], [address] CO2 Normal 21.0-32.0 [facility] Comment on above: Result Comment: Canc elled via OM: Order cancelled - Patient discharged Performed By: #### L 100.0100, L500.2500 ####[facility] [address] [place], [address] CREAT,SERUM Normal 0.70-1.20 [facility] Comment on above: Result Comment: Canc elled via OM: Order cancelled - Patient discharged Performed By: #### L 100.0100, L500.2500 ####[facility] [address] [place], [address] eGFR Normal >60 [facility] Comment on above: Result Comment: Canc elled via OM: Order cancelled - Patient discharged Performed By: #### L 100.0100, L500.2500 ####[facility] [address] [place], [address] GAP Normal 5-15 [facility] Comment on above: Result Comment: Canc elled via OM: Order cancelled - Patient discharged Performed By: #### L 100.0100, L500.2500 ####[facility] [address] [place], [address] GLU Normal 70-99 [facility] Comment on above: Result Comment: Canc elled via OM: Order cancelled - Patient discharged Performed By: #### L 100.0100, L500.2500 ####[facility] [address] [place], [address] Potassium Normal 3.3-5.1 [facility] Comment on above: Result Comment: Canc elled via OM: Order cancelled - Patient discharged Performed By: #### L 100.0100, L500.2500 ####[facility] [address] [place], [address] Basic Metabolic Profile (BMP) Normal 133-145 [facility] Comment on above: Result Comment: Canc elled via OM: Order cancelled - Patient discharged Performed By: #### L 100.0100, L500.2500 ####[facility] [address] [place], [address] CBC W/Diff, Automatedon 07-2 Absolute Neut Normal 2.0-7.7 [facility] Comment on above: Result Comment: Canc elled via OM: Order cancelled - Patient discharged Performed By: #### L 100.0100, L500.2500 ####[facility] [address] [place], [address] HCT Normal 40-54 [facility] Comment on above: Result Comment: Canc elled via OM: Order cancelled - Patient discharged Performed By: #### L 100.0100, L500.2500 ####[facility] [address] [place], [address] HGB Normal 13.0-16.5 [facility] Comment on above: Result Comment: Canc elled via OM: Order cancelled - Patient discharged Performed By: #### L 100.0100, L500.2500 ####[facility] [address] [place], [address] MCH Normal 27.0-32.0 [facility] Comment on above: Result Comment: Canc elled via OM: Order cancelled - Patient discharged Performed By: #### L 100.0100, L500.2500 ####[facility] [address] [place], [address] MCHC Normal 32-36 [facility] Comment on above: Result Comment: Canc elled via OM: Order cancelled - Patient discharged Performed By: #### L 100.0100, L500.2500 ####[facility] [address] [place], [address] MCV Normal 80-94 [facility] Comment on above: Result Comment: Canc elled via OM: Order cancelled - Patient discharged Performed By: #### L 100.0100, L500.2500 ####[facility] [address] [place], [address] NEUT% Normal 47-70 [facility] Comment on above: Result Comment: Canc elled via OM: Order cancelled - Patient discharged Performed By: #### L 100.0100, L500.2500 ####[facility] [address] [place], [address] PLT Normal 150-450 [facility] Comment on above: Result Comment: Canc elled via OM: Order cancelled - Patient discharged Performed By: #### L 100.0100, L500.2500 ####[facility] [address] [place], [address] RBC Normal 4.6-6.2 [facility] Comment on above: Result Comment: Canc elled via OM: Order cancelled - Patient discharged Performed By: #### L 100.0100, L500.2500 ####[facility] [address] [place], [address] RDW CV Normal 11.6-14.6 [facility] Comment on above: Result Comment: Canc elled via OM: Order cancelled - Patient discharged Performed By: #### L 100.0100, L500.2500 ####[facility] [address] [place], [address] RDW SD Normal 35.1-43.9 [facility] Comment on above: Result Comment: Canc elled via OM: Order cancelled - Patient discharged Performed By: #### L 100.0100, L500.2500 ####[facility] [address] [place], [address] WBC Normal 4.4-11.0 [facility] Comment on above: Result Comment: Canc elled via OM: Order cancelled - Patient discharged Performed By: #### L 100.0100, L500.2500 ####[facility] [address] [place], [address] Basic Metabolic Profile (BMP )on 12-10-2024 BUN Normal 4-19 [facility] Comment on above: Result Comment: Canc elled via OM: Order cancelled - Patient discharged Performed By: #### L 500.2500, L100.0100 ####[facility] [address] [place], [address] BUN/CRE Normal 10-20 [facility] Comment on above: Result Comment: Canc elled via OM: Order cancelled - Patient discharged Performed By: #### L 500.2500, L100.0100 ####[facility] [address] [place], [address] Calcium Normal 7.6-11.0 [facility] Comment on above: Result Comment: Canc elled via OM: Order cancelled - Patient discharged Performed By: #### L 500.2500, L100.0100 ####[facility] [address] [place], [address] CL Normal 98-108 [facility] Comment on above: Result Comment: Canc elled via OM: Order cancelled - Patient discharged Performed By: #### L 500.2500, L100.0100 ####[facility] [address] [place], [address] CO2 Normal 21.0-32.0 [facility] Comment on above: Result Comment: Canc elled via OM: Order cancelled - Patient discharged Performed By: #### L 500.2500, L100.0100 ####[facility] [address] [place], [address] CREAT,SERUM Normal 0.70-1.20 [facility] Comment on above: Result Comment: Canc elled via OM: Order cancelled - Patient discharged Performed By: #### L 500.2500, L100.0100 ####[facility] [address] [place], [address] eGFR Normal >60 [facility] Comment on above: Result Comment: Canc elled via OM: Order cancelled - Patient discharged Performed By: #### L 500.2500, L100.0100 ####[facility] [address] [place], [address] GAP Normal 5-15 [facility] Comment on above: Result Comment: Canc elled via OM: Order cancelled - Patient discharged Performed By: #### L 500.2500, L100.0100 ####[facility] [address] [place], [address] GLU Normal 70-99 [facility] Comment on above: Result Comment: Canc elled via OM: Order cancelled - Patient discharged Performed By: #### L 500.2500, L100.0100 ####[facility] [address] [place], [address] Potassium Normal 3.3-5.1 [facility] Comment on above: Result Comment: Canc elled via OM: Order cancelled - Patient discharged Performed By: #### L 500.2500, L100.0100 ####[facility] [address] [place], [address] Basic Metabolic Profile (BMP) Normal 133-145 [facility] Comment on above: Result Comment: Canc elled via OM: Order cancelled - Patient discharged Performed By: #### L 500.2500, L100.0100 ####[facility] [address] [place], [address] CBC W/Diff, Automatedon 07-2 Absolute Neut Normal 2.0-7.7 [facility] Comment on above: Result Comment: Canc elled via OM: Order cancelled - Patient discharged Performed By: #### L 500.2500, L100.0100 ####[facility] [address] [place], [address] HCT Normal 40-54 [facility] Comment on above: Result Comment: Canc elled via OM: Order cancelled - Patient discharged Performed By: #### L 500.2500, L100.0100 ####[facility] [address] [place], [address] HGB Normal 13.0-16.5 [facility] Comment on above: Result Comment: Canc elled via OM: Order cancelled - Patient discharged Performed By: #### L 500.2500, L100.0100 ####[facility] [address] [place], [address] MCH Normal 27.0-32.0 [facility] Comment on above: Result Comment: Canc elled via OM: Order cancelled - Patient discharged Performed By: #### L 500.2500, L100.0100 ####[facility] [address] [place], [address] MCHC Normal 32-36 [facility] Comment on above: Result Comment: Canc elled via OM: Order cancelled - Patient discharged Performed By: #### L 500.2500, L100.0100 ####[facility] [address] [place], [address] MCV Normal 80-94 [facility] Comment on above: Result Comment: Canc elled via OM: Order cancelled - Patient discharged Performed By: #### L 500.2500, L100.0100 ####[facility] [address] [place], [address] NEUT% Normal 47-70 [facility] Comment on above: Result Comment: Canc elled via OM: Order cancelled - Patient discharged Performed By: #### L 500.2500, L100.0100 ####[facility] [address] [place], [address] PLT Normal 150-450 [facility] Comment on above: Result Comment: Canc elled via OM: Order cancelled - Patient discharged Performed By: #### L 500.2500, L100.0100 ####[facility] [address] [place], [address] RBC Normal 4.6-6.2 [facility] Comment on above: Result Comment: Canc elled via OM: Order cancelled - Patient discharged Performed By: #### L 500.2500, L100.0100 ####[facility] [address] [place], [address] RDW CV Normal 11.6-14.6 [facility] Comment on above: Result Comment: Canc elled via OM: Order cancelled - Patient discharged Performed By: #### L 500.2500, L100.0100 ####[facility] [address] [place], [address] RDW SD Normal 35.1-43.9 [facility] Comment on above: Result Comment: Canc elled via OM: Order cancelled - Patient discharged Performed By: #### L 500.2500, L100.0100 ####[facility] [address] [place], [address] WBC Normal 4.4-11.0 [facility] Comment on above: Result Comment: Canc elled via OM: Order cancelled - Patient discharged Performed By: #### L 500.2500, L100.0100 ####[facility] [address] [place], [address] Basic Metabolic Profile (BMP )on 12-09-2024 BUN Normal 4-19 [facility] Comment on above: Result Comment: Canc elled via OM: Order cancelled - Patient discharged Performed By: #### L 100.0100, L500.2500 ####[facility] [address] [place], [address] BUN/CRE Normal 10-20 [facility] Comment on above: Result Comment: Canc elled via OM: Order cancelled - Patient discharged Performed By: #### L 100.0100, L500.2500 ####[facility] [address] [place], [address] Calcium Normal 7.6-11.0 [facility] Comment on above: Result Comment: Canc elled via OM: Order cancelled - Patient discharged Performed By: #### L 100.0100, L500.2500 ####[facility] [address] [place], [address] CL Normal 98-108 [facility] Comment on above: Result Comment: Canc elled via OM: Order cancelled - Patient discharged Performed By: #### L 100.0100, L500.2500 ####[facility] [address] [place], [address] CO2 Normal 21.0-32.0 [facility] Comment on above: Result Comment: Canc elled via OM: Order cancelled - Patient discharged Performed By: #### L 100.0100, L500.2500 ####[facility] [address] [place], [address] CREAT,SERUM Normal 0.70-1.20 [facility] Comment on above: Result Comment: Canc elled via OM: Order cancelled - Patient discharged Performed By: #### L 100.0100, L500.2500 ####[facility] [address] [place], [address] eGFR Normal >60 [facility] Comment on above: Result Comment: Canc elled via OM: Order cancelled - Patient discharged Performed By: #### L 100.0100, L500.2500 ####[facility] [address] [place], [address] GAP Normal 5-15 [facility] Comment on above: Result Comment: Canc elled via OM: Order cancelled - Patient discharged Performed By: #### L 100.0100, L500.2500 ####[facility] [address] [place], [address] GLU Normal 70-99 [facility] Comment on above: Result Comment: Canc elled via OM: Order cancelled - Patient discharged Performed By: #### L 100.0100, L500.2500 ####[facility] [address] [place], [address] Potassium Normal 3.3-5.1 [facility] Comment on above: Result Comment: Canc elled via OM: Order cancelled - Patient discharged Performed By: #### L 100.0100, L500.2500 ####[facility] [address] [place], [address] Basic Metabolic Profile (BMP) Normal 133-145 [facility] Comment on above: Result Comment: Canc elled via OM: Order cancelled - Patient discharged Performed By: #### L 100.0100, L500.2500 ####[facility] [address] [place], [address] CBC W/Diff, Automatedon 07-2 -2024 Absolute Neut Normal 2.0-7.7 [facility] Comment on above: Result Comment: Canc elled via OM: Order cancelled - Patient discharged Performed By: #### L 100.0100, L500.2500 ####[facility] [address] [place], [address] HCT Normal 40-54 [facility] Comment on above: Result Comment: Canc elled via OM: Order cancelled - Patient discharged Performed By: #### L 100.0100, L500.2500 ####[facility] [address] [place], [address] HGB Normal 13.0-16.5 [facility] Comment on above: Result Comment: Canc elled via OM: Order cancelled - Patient discharged Performed By: #### L 100.0100, L500.2500 ####[facility] [address] [place], [address] MCH Normal 27.0-32.0 [facility] Comment on above: Result Comment: Canc elled via OM: Order cancelled - Patient discharged Performed By: #### L 100.0100, L500.2500 ####[facility] [address] [place], [address] MCHC Normal 32-36 [facility] Comment on above: Result Comment: Canc elled via OM: Order cancelled - Patient discharged Performed By: #### L 100.0100, L500.2500 ####[facility] [address] [place], [address] MCV Normal 80-94 [facility] Comment on above: Result Comment: Canc elled via OM: Order cancelled - Patient discharged Performed By: #### L 100.0100, L500.2500 ####[facility] [address] [place], [address] NEUT% Normal 47-70 [facility] Comment on above: Result Comment: Canc elled via OM: Order cancelled - Patient discharged Performed By: #### L 100.0100, L500.2500 ####[facility] [address] [place], [address] PLT Normal 150-450 [facility] Comment on above: Result Comment: Canc elled via OM: Order cancelled - Patient discharged Performed By: #### L 100.0100, L500.2500 ####[facility] [address] [place], [address] RBC Normal 4.6-6.2 [facility] Comment on above: Result Comment: Canc elled via OM: Order cancelled - Patient discharged Performed By: #### L 100.0100, L500.2500 ####[facility] [address] [place], [address] RDW CV Normal 11.6-14.6 [facility] Comment on above: Result Comment: Canc elled via OM: Order cancelled - Patient discharged Performed By: #### L 100.0100, L500.2500 ####[facility] [address] [place], [address] RDW SD Normal 35.1-43.9 [facility] Comment on above: Result Comment: Canc elled via OM: Order cancelled - Patient discharged Performed By: #### L 100.0100, L500.2500 ####[facility] [address] [place], [address] WBC Normal 4.4-11.0 [facility] Comment on above: Result Comment: Canc elled via OM: Order cancelled - Patient discharged Performed By: #### L 100.0100, L500.2500 ####[facility] [address] [place], [address] Absolute lymphocyte countOrd ered By: Steph Beltran on 12-08-2024 Lymphocytes Auto (Unsp spec) [#/Vol] 1.04 10*3/uL 0.83-4.51 [facility] Absolute neutrophil countOrd ered By: Steph Beltran on 12-08-2024 Neutrophils (Bld) [#/Vol] 7.2 10*3/uL 2.0-7.7 [facility] Anion gap in Serum or Plasma Ordered By: Steph Beltran on 12-08-2024 Anion gap [Moles/Vol] 8 mmol/L 5-15 [facility] Automated lymphocyte count a s percentage of total leukocytesOrdered By: Steph Beltran on 12-08-2024 Lymphocytes/100 WBC Auto (Unsp spec) 11.0 % Low 19-41 [facility] BUN/creatinine ratioOrdered By: Steph Beltran on 12-08-2024 Urea nitrogen/Creatinine [Mass ratio] 9.1 mg/mg Low 10-20 [facility] Basic Metabolic Profile (BMP )on 12-08-2024 BUN/CRE 9.1 RATIO Low 10- [facility] Comment on above: Performed By: #### L 100.0100, L500.2500 ####[facility] [address] [place], [address] Calcium [Mass/Vol] 8.0 mg/dL Normal 7.6-11.0 [facility] Comment on above: Performed By: #### L 100.0100, L500.2500 ####[facility] [address] [place], [address] Chloride [Moles/Vol] 104 mmol/L Normal 98-108 [facility] Comment on above: Performed By: #### L 100.0100, L500.2500 ####[facility] [address] [place], [address] CO2 [Moles/Vol] 23.2 mmol/L Normal 21.0-32.0 [facility] Comment on above: Performed By: #### L 100.0100, L500.2500 ####[facility] [address] [place], [address] Creatinine [Mass/Vol] 1.19 mg/dL Normal 0.70-1.20 [facility] Comment on above: Performed By: #### L 100.0100, L500.2500 ####[facility] [address] [place], [address] ECRCL 47.05 ml/min Low 50-250 [facility] Comment on above: Performed By: #### L 100.0100, L500.2500 ####[facility] [address] [place], [address] GAP 8 Normal 5-15 [facility] Comment on above: Performed By: #### L 100.0100, L500.2500 ####[facility] [address] [place], [address] GFR/1.73 sq M.predicted among non-blacks MDRD (S/P/Bld) [Vol rate/Area] 58 mL/min/{1.73_m2} Low >60 [facility] Comment on above: Result Comment: mL/m in/1.73m2 CKD-EPI Creatinine Equation (2020) Performed By: #### L 100.0100, L500.2500 ####[facility] [address] [place], [address] Glucose [Mass/Vol] 104 mg/dL High 70-99 [facility] Comment on above: Performed By: #### L 100.0100, L500.2500 ####[facility] [address] [place], [address] Potassium [Moles/Vol] 3.9 mmol/L Normal 3.3-5.1 [facility] Comment on above: Performed By: #### L 100.0100, L500.2500 ####[facility] [address] [place], [address] Sodium [Moles/Vol] 135 mmol/L Normal 133-145 [facility] Comment on above: Performed By: #### L 100.0100, L500.2500 ####[facility] [address] [place], [address] Urea nitrogen [Mass/Vol] 11 mg/dL Normal 4-19 [facility] Comment on above: Performed By: #### L 100.0100, L500.2500 ####[facility] [address] [place], [address] Basophil percentageOrdered B y: Steph Beltran on 12-08-2024 Basophils/100 WBC (Bld) 0.3 % 0-1 [facility] CBC W/Diff, Automatedon -2 Absolute Lymph 1.04 X10 3/uL Normal 0.83-4.51 [facility] Comment on above: Performed By: #### L 100.0100, L500.2500 ####[facility] [address] [place], [address] Absolute Neut 7.2 X10 3/uL Normal 2.0-7.7 [facility] Comment on above: Performed By: #### L 100.0100, L500.2500 ####[facility] [address] [place], [address] Basophils/100 WBC (Bld) 0.3 % Normal 0-1 [facility] Comment on above: Performed By: #### L 100.0100, L500.2500 ####[facility] [address] [place], [address] Eosinophils/100 WBC (Bld) 1.6 % Normal 0-5 [facility] Comment on above: Performed By: #### L 100.0100, L500.2500 ####[facility] [address] [place], [address] Erythrocyte distribution width (RBC) [Ratio] 13.5 % Normal 11.6-14.6 [facility] Comment on above: Performed By: #### L 100.0100, L500.2500 ####[facility] [address] [place], [address] Hematocrit (Bld) [Volume fraction] 30.6 % Low 40-54 [facility] Comment on above: Performed By: #### L 100.0100, L500.2500 ####[facility] [address] [place], [address] Hemoglobin (Bld) [Mass/Vol] 10.7 g/dL Low 13.0-16.5 [facility] Comment on above: Performed By: #### L 100.0100, L500.2500 ####[facility] [address] [place], [address] IG% 0.400 Normal 0.0-0.9 [facility] Comment on above: Result Comment: IG% - Immature Granulocytes (promyelocytes, myelocytes andmetamyelocytes) > 1% indicates that a LEFT SHIFT is Present. Performed By: #### L 100.0100, L500.2500 ####[facility] [address] [place], [address] Lymphocytes/100 WBC (Bld) 11.0 % Low 19-41 [facility] Comment on above: Performed By: #### L 100.0100, L500.2500 ####[facility] [address] [place], [address] MCH (RBC) [Entitic mass] 31.3 pg Normal 27.0-32.0 [facility] Comment on above: Performed By: #### L 100.0100, L500.2500 ####[facility] [address] [place], [address] MCHC (RBC) [Mass/Vol] 35.0 g/dL Normal 32-36 [facility] Comment on above: Performed By: #### L 100.0100, L500.2500 ####[facility] [address] [place], [address] MCV (RBC) [Entitic vol] 89.5 fL Normal 80-94 [facility] Comment on above: Performed By: #### L 100.0100, L500.2500 ####[facility] [address] [place], [address] Monocytes/100 WBC (Bld) 10.3 % High 0-10 [facility] Comment on above: Performed By: #### L 100.0100, L500.2500 ####[facility] [address] [place], [address] Neutrophils/100 WBC (Bld) 76.4 % High 47-70 [facility] Comment on above: Performed By: #### L 100.0100, L500.2500 ####[facility] [address] [place], [address] Nucleated RBC (Bld) [#/Vol] 0 10*3/uL Normal 0-5 [facility] Comment on above: Performed By: #### L 100.0100, L500.2500 ####[facility] [address] [place], [address] Platelet mean volume (Bld) [Entitic vol] 11.6 fL Normal 6.2-12.0 [facility] Comment on above: Performed By: #### L 100.0100, L500.2500 ####[facility] [address] [place], [address] Platelets (Bld) [#/Vol] 170 10*3/uL Normal 150-450 [facility] Comment on above: Performed By: #### L 100.0100, L500.2500 ####[facility] [address] [place], [address] RBC (Bld) [#/Vol] 3.42 10*6/uL Low 4.6-6.2 [facility] Comment on above: Performed By: #### L 100.0100, L500.2500 ####[facility] [address] [place], [address] RDW SD 44.3 fl High 35.1-43.9 [facility] Comment on above: Performed By: #### L 100.0100, L500.2500 ####[facility] [address] [place], [address] WBC (Bld) [#/Vol] 9.4 10*3/uL Normal 4.4-11.0 [facility] Comment on above: Performed By: #### L 100.0100, L500.2500 ####[facility] [address] [place], [address] Carbon dioxide, total [Moles /volume] in Central venous bloodOrdered By: Steph Beltran on 12-08-2024 CO2 [Moles/Vol] 23.2 mmol/L 21.0-32.0 [facility] Chloride assayOrdered By: Na na Devin on 12-08-2024 Chloride [Moles/Vol] 104 mmol/L 98-108 [facility] Discharge Instructionon 07-2 Discharge Instruction Normal [facility] Eosinophil percentageOrdered By: Steph Beltran on 12-08-2024 Eosinophils/100 WBC (Bld) 1.6 % 0-5 [facility] Erythrocyte distribution wid th ratioOrdered By: Steph Beltran on 12-08-2024 Erythrocyte distribution width (RBC) [Ratio] 13.5 % 11.6-14.6 [facility] Erythrocyte distribution wid th standard deviationOrdered By: Steph Beltran on 12-08-2024 Erythrocyte distribution width (RBC) [Ratio] 44.3 fl High 35.1-43.9 [facility] Glomerular filtration rate ( GFR) estimation/1.73 sq m using serum, plasma, or whole bOrdered By: Steph Beltran on 12-08-2024 GFR/1.73 sq M.predicted among non-blacks MDRD (S/P/Bld) [Vol rate/Area] 58 mL/min/{1.73_m2} Low >60 [facility] Comment on above: mL/min/1.73m2 CKD-EP I Creatinine Equation (2020) Hematocrit Auto (Bld) [Volum e fraction]Ordered By: Steph Beltran 12-08-2024 Hematocrit (Bld) [Volume fraction] 30.6 % Low 40-54 [facility] Hemoglobin measurementOrdere d By: Steph Beltran 12-08-2024 Hemoglobin (Bld) [Mass/Vol] 10.7 g/dL Low 13.0-16.5 [facility] Immature granulocytes/100 WB C Auto (Bld)Ordered By: Steph Beltran 12-08-2024 Immature granulocytes/100 WBC (Bld) 0.400 % 0.0-0.9 [facility] Comment on above: IG% - Immature Granu locytes (promyelocytes, myelocytes and metamyelocytes) > 1% indicates that a LEFT SHIFT is Present. MCV (mean corpuscular volume ) determinationOrdered By: Steph Beltran on 12-08-2024 MCV (RBC) [Entitic vol] 89.5 fL 80-94 [facility] Mean corpuscular hemoglobin (MCH) determinationOrdered By: Steph Beltran on 12-08-2024 MCH (RBC) [Entitic mass] 31.3 pg 27.0-32.0 [facility] Mean corpuscular hemoglobin concentration (MCHC) determinationOrdered By: Steph Beltran on 12-08-2024 MCHC (RBC) [Mass/Vol] 35.0 g/dL 32-36 [facility] Mean platelet volume determi nationOrdered By: Steph Beltran on 12-08-2024 Platelet mean volume (Bld) [Entitic vol] 11.6 fL 6.2-12.0 [facility] Monocyte percentageOrdered B y: Steph Beltran on 12-08-2024 Monocytes/100 WBC (Bld) 10.3 % High 0-10 [facility] Neutrophil percentageOrdered By: Steph Beltran on 12-08-2024 Neutrophils/100 WBC (Bld) 76.4 % High 47-70 [facility] Nucleated red blood cell per centageOrdered By: Steph Beltran on 12-08-2024 Nucleated RBC/100 WBC (Bld) [Ratio] 0 % 0-5 [facility] Platelet countOrdered By: Na daniel Beltran on 12-08-2024 Platelets (Bld) [#/Vol] 170 10*3/uL 150-450 [facility] Potassium measurement (mass/ volume)Ordered By: Steph Beltran on 12-08-2024 Potassium (Unsp spec) [Mass/Vol] 3.9 mmol/L 3.3-5.1 [facility] RBC Auto (Bld) [#/Vol]Ordere d By: Steph Beltran on 12-08-2024 RBC (Bld) [#/Vol] 3.42 10*6/uL Low 4.6-6.2 [facility] Serum creatinine measurement (mass/volume)Ordered By: Steph Beltran on 12-08-2024 Creatinine [Mass/Vol] 1.19 mg/dL 0.70-1.20 [facility] Serum glucose measurement (m ass/volume)Ordered By: Steph Beltran on 12-08-2024 Glucose [Mass/Vol] 104 mg/dL High 70-99 [facility] Serum or plasma calcium sita urement (mass/volume)Ordered By: Steph Beltran on 12-08-2024 Calcium [Mass/Vol] 8.0 mg/dL 7.6-11.0 [facility] Serum or plasma urea nitroge n measurement (mass/volume)Ordered By: Steph Beltran on 12-08-2024 Urea nitrogen [Mass/Vol] 11 mg/dL 4-19 [facility] Sodium levelOrdered By: Steph Beltran on 12-08-2024 Sodium [Moles/Vol] 135 mmol/L 133-145 [facility] White blood cell (WBC) count Ordered By: Steph Beltran on 12-08-2024 WBC (Bld) [#/Vol] 9.4 10*3/uL 4.4-11.0 [facility] Bilirubin, totalOrdered By: Unique Salazar on 12-07-2024 Bilirubin [Mass/Vol] 1.57 mg/dL High 0.00-1.30 [facility] CBC W/Diff, Automatedon 11-18 Absolute Lymph 0.93 X10 3/uL Normal 0.83-4.51 [facility] Comment on above: Performed By: #### L 500.4050, L100.0100 ####[facility] [address] [place], [address] Absolute Neut 7.7 X10 3/uL Normal 2.0-7.7 [facility] Comment on above: Performed By: #### L 500.4050, L100.0100 ####[facility] [address] [place], [address] Basophils/100 WBC (Bld) 0.3 % Normal 0-1 [facility] Comment on above: Performed By: #### L 500.4050, L100.0100 ####[facility] [address] [place], [address] Eosinophils/100 WBC (Bld) 1.9 % Normal 0-5 [facility] Comment on above: Performed By: #### L 500.4050, L100.0100 ####[facility] [address] [place], [address] Erythrocyte distribution width (RBC) [Ratio] 13.5 % Normal 11.6-14.6 [facility] Comment on above: Performed By: #### L 500.4050, L100.0100 ####[facility] [address] [place], [address] Hematocrit (Bld) [Volume fraction] 33.0 % Low 40-54 [facility] Comment on above: Performed By: #### L 500.4050, L100.0100 ####[facility] [address] [place], [address] Hemoglobin (Bld) [Mass/Vol] 11.5 g/dL Low 13.0-16.5 [facility] Comment on above: Performed By: #### L 500.4050, L100.0100 ####[facility] [address] [place] [place], [address] IG% 0.600 Normal 0.0-0.9 [facility] Comment on above: Result Comment: IG% - Immature Granulocytes (promyelocytes, myelocytes andmetamyelocytes) > 1% indicates that a LEFT SHIFT is Present. Performed By: #### L 500.4050, L100.0100 ####[facility] [address] [place], [address] Lymphocytes/100 WBC (Bld) 9.4 % Low 19-41 [facility] Comment on above: Performed By: #### L 500.4050, L100.0100 ####[facility] [address] [place], [address] MCH (RBC) [Entitic mass] 31.4 pg Normal 27.0-32.0 [facility] Comment on above: Performed By: #### L 500.4050, L100.0100 ####[facility] [address] [place], [address] MCHC (RBC) [Mass/Vol] 34.8 g/dL Normal 32-36 [facility] Comment on above: Performed By: #### L 500.4050, L100.0100 ####[facility] [address] [place], [address] MCV (RBC) [Entitic vol] 90.2 fL Normal 80-94 [facility] Comment on above: Performed By: #### L 500.4050, L100.0100 ####[facility] [address] [place], [address] Monocytes/100 WBC (Bld) 10.2 % High 0-10 [facility] Comment on above: Performed By: #### L 500.4050, L100.0100 ####[facility] [address] [place], [address] Neutrophils/100 WBC (Bld) 77.6 % High 47-70 [facility] Comment on above: Performed By: #### L 500.4050, L100.0100 ####[facility] [address] [place], [address] Nucleated RBC (Bld) [#/Vol] 0 10*3/uL Normal 0-5 [facility] Comment on above: Performed By: #### L 500.4050, L100.0100 ####[facility] [address] [place], [address] Platelet mean volume (Bld) [Entitic vol] 11.5 fL Normal 6.2-12.0 [facility] Comment on above: Performed By: #### L 500.4050, L100.0100 ####[facility] [address] [place], [address] Platelets (Bld) [#/Vol] 175 10*3/uL Normal 150-450 [facility] Comment on above: Performed By: #### L 500.4050, L100.0100 ####[facility] [address] [place], [address] RBC (Bld) [#/Vol] 3.66 10*6/uL Low 4.6-6.2 [facility] Comment on above: Performed By: #### L 500.4050, L100.0100 ####[facility] [address] [place], [address] RDW SD 44.8 fl High 35.1-43.9 [facility] Comment on above: Performed By: #### L 500.4050, L100.0100 ####[facility] [address] [place], [address] WBC (Bld) [#/Vol] 9.9 10*3/uL Normal 4.4-11.0 [facility] Comment on above: Performed By: #### L 500.4050, L100.0100 ####[facility] [address] [place], [address] Comprehensive Metabolic Prof [facility] 12-07-2024 Albumin [Mass/Vol] 3.2 g/dL Low 3.4-4.8 [facility] Comment on above: Performed By: #### L 500.4050, L100.0100 ####[facility] [address] [place], [address] Albumin/Globulin [Mass ratio] 1.1 {ratio} Normal 0.9-2.4 [facility] Comment on above: Performed By: #### L 500.4050, L100.0100 ####[facility] [address] [place], [address] ALK PHOS 138 U/L High 40-129 [facility] Comment on above: Performed By: #### L 500.4050, L100.0100 ####[facility] [address] [place], [address] ALT [Catalytic activity/Vol] 14 U/L Normal <=46 [facility] Comment on above: Performed By: #### L 500.4050, L100.0100 ####[facility] [address] [place], [address] AST [Catalytic activity/Vol] 18 U/L Normal <=37 [facility] Comment on above: Performed By: #### L 500.4050, L100.0100 ####[facility] [address] [place], [address] Bilirubin [Mass/Vol] 1.57 mg/dL High 0.00-1.30 [facility] Comment on above: Performed By: #### L 500.4050, L100.0100 ####[facility] [address] [place], [address] BUN/CRE 8.9 RATIO Low 10-20 [facility] Comment on above: Performed By: #### L 500.4050, L100.0100 ####[facility] [address] [place], [address] Calcium [Mass/Vol] 8.3 mg/dL Normal 7.6-11.0 [facility] Comment on above: Performed By: #### L 500.4050, L100.0100 ####[facility] [address] [place], [address] Chloride [Moles/Vol] 103 mmol/L Normal 98-108 [facility] Comment on above: Performed By: #### L 500.4050, L100.0100 ####[facility] [address] [place], [address] CO2 [Moles/Vol] 23.5 mmol/L Normal 21.0-32.0 [facility] Comment on above: Performed By: #### L 500.4050, L100.0100 ####[facility] [address] [place], [address] Creatinine [Mass/Vol] 1.14 mg/dL Normal 0.70-1.20 [facility] Comment on above: Performed By: #### L 500.4050, L100.0100 ####[facility] [address] [place], [address] ECRCL 49.11 ml/min Low 50-250 [facility] Comment on above: Performed By: #### L 500.4050, L100.0100 ####[facility] [address] [place], [address] GAP 8 Normal 5-15 [facility] Comment on above: Performed By: #### L 500.4050, L100.0100 ####[facility] [address] [place], [address] GFR/1.73 sq M.predicted among non-blacks MDRD (S/P/Bld) [Vol rate/Area] 61 mL/min/{1.73_m2} Normal >60 [facility] Comment on above: Result Comment: mL/m in/1.73m2 CKD-EPI Creatinine Equation (2020) Performed By: #### L 500.4050, L100.0100 ####[facility] [address] [place], [address] Globulin (S) [Mass/Vol] 2.8 g/dL Normal 2.2-4.2 [facility] Comment on above: Performed By: #### L 500.4050, L100.0100 ####[facility] [address] [place], [address] Glucose [Mass/Vol] 108 mg/dL High 70-99 [facility] Comment on above: Performed By: #### L 500.4050, L100.0100 ####[facility] [address] [place], [address] Potassium [Moles/Vol] 3.7 mmol/L Normal 3.3-5.1 [facility] Comment on above: Performed By: #### L 500.4050, L100.0100 ####[facility] [address] [place], [address] Sodium [Moles/Vol] 135 mmol/L Normal 133-145 [facility] Comment on above: Performed By: #### L 500.4050, L100.0100 ####[facility] [address] [place], [address] T PROT 6.0 g/dL Normal 5.9-8.4 [facility] Comment on above: Performed By: #### L 500.4050, L100.0100 ####[facility] [address] [place], [address] Urea nitrogen [Mass/Vol] 10 mg/dL Normal 4-19 [facility] Comment on above: Performed By: #### L 500.4050, L100.0100 ####[facility] [address] [place], [address] Laboratory - Chemistry and C hemistry - challengeOrdered By: Unique Salazar on 12-07-2024 AST [Catalytic activity/Vol] 18 U/L <38 [facility] Serum globulin measurementOr dered By: Unique Salazar on 12-07-2024 Globulin (S) [Mass/Vol] 2.8 g/dL 2.2-4.2 [facility] Serum or plasma alanine erickson otransferase (ALT) measurementOrdered By: Unique Salazar on 12-07-2024 ALT [Catalytic activity/Vol] 14 U/L <47 [facility] Serum or plasma albumin sita urement (mass/volume)Ordered By: Unique Martin on 12-07-2024 Albumin [Mass/Vol] 3.2 g/dL Low 3.4-4.8 [facility] Serum or plasma albumin/glob ulin mass ratioOrdered By: Unique Martin on 12-07-2024 Albumin/Globulin [Mass ratio] 1.1 {ratio} 0.9-2.4 [facility] Serum or plasma alkaline florencia sphatase measurementOrdered By: on 12-07-2024 ALP [Catalytic activity/Vol] 138 U/L High 40-129 [facility] Total proteinOrdered By: Aut nika White on 12-07-2024 Protein [Mass/Vol] 6.0 g/dL 5.9-8.4 [facility] CBC W/Diff, Automatedon 11-18 Absolute Lymph 0.95 X10 3/uL Normal 0.83-4.51 [facility] Comment on above: Performed By: #### L 500.4050, L100.0100 ####[facility] [address] [place], [address] Absolute Neut 6.7 X10 3/uL Normal 2.0-7.7 [facility] Comment on above: Performed By: #### L 500.4050, L100.0100 ####[facility] [address] [place], [address] Basophils/100 WBC (Bld) 0.3 % Normal 0-1 [facility] Comment on above: Performed By: #### L 500.4050, L100.0100 ####[facility] [address] [place], [address] Eosinophils/100 WBC (Bld) 2.3 % Normal 0-5 [facility] Comment on above: Performed By: #### L 500.4050, L100.0100 ####[facility] [address] [place], [address] Erythrocyte distribution width (RBC) [Ratio] 13.4 % Normal 11.6-14.6 [facility] Comment on above: Performed By: #### L 500.4050, L100.0100 ####[facility] [address] [place], [address] Hematocrit (Bld) [Volume fraction] 29.5 % Low 40-54 [facility] Comment on above: Performed By: #### L 500.4050, L100.0100 ####[facility] [address] [place], [address] Hemoglobin (Bld) [Mass/Vol] 10.5 g/dL Low 13.0-16.5 [facility] Comment on above: Performed By: #### L 500.4050, L100.0100 ####[facility] [address] [place], [address] IG% 0.600 Normal 0.0-0.9 [facility] Comment on above: Result Comment: IG% - Immature Granulocytes (promyelocytes, myelocytes andmetamyelocytes) > 1% indicates that a LEFT SHIFT is Present. Performed By: #### L 500.4050, L100.0100 ####[facility] [address] [place], [address] Lymphocytes/100 WBC (Bld) 10.8 % Low 19-41 [facility] Comment on above: Performed By: #### L 500.4050, L100.0100 ####[facility] [address] [place], [address] MCH (RBC) [Entitic mass] 31.3 pg Normal 27.0-32.0 [facility] Comment on above: Performed By: #### L 500.4050, L100.0100 ####[facility] [address] [place], [address] MCHC (RBC) [Mass/Vol] 35.6 g/dL Normal 32-36 [facility] Comment on above: Performed By: #### L 500.4050, L100.0100 ####[facility] [address] [place], [address] MCV (RBC) [Entitic vol] 88.1 fL Normal 80-94 [facility] Comment on above: Performed By: #### L 500.4050, L100.0100 ####[facility] [address] [place], [address] Monocytes/100 WBC (Bld) 9.5 % Normal 0-10 [facility] Comment on above: Performed By: #### L 500.4050, L100.0100 ####[facility] [address] [place], [address] Neutrophils/100 WBC (Bld) 76.5 % High 47-70 [facility] Comment on above: Performed By: #### L 500.4050, L100.0100 ####[facility] [address] [place], [address] Nucleated RBC (Bld) [#/Vol] 0 10*3/uL Normal 0-5 [facility] Comment on above: Performed By: #### L 500.4050, L100.0100 ####[facility] [address] [place], [address] Platelet mean volume (Bld) [Entitic vol] 11.6 fL Normal 6.2-12.0 [facility] Comment on above: Performed By: #### L 500.4050, L100.0100 ####[facility] [address] [place], [address] Platelets (Bld) [#/Vol] 169 10*3/uL Normal 150-450 [facility] Comment on above: Performed By: #### L 500.4050, L100.0100 ####[facility] [address] [place], [address] RBC (Bld) [#/Vol] 3.35 10*6/uL Low 4.6-6.2 [facility] Comment on above: Performed By: #### L 500.4050, L100.0100 ####[facility] [address] [place], [address] RDW SD 43.4 fl Normal 35.1-43.9 [facility] Comment on above: Performed By: #### L 500.4050, L100.0100 ####[facility] [address] [place], [address] WBC (Bld) [#/Vol] 8.8 10*3/uL Normal 4.4-11.0 [facility] Comment on above: Performed By: #### L 500.4050, L100.0100 ####[facility] [address] [place], [address] Comprehensive Metabolic Prof [facility] 12-06-2024 Albumin [Mass/Vol] 2.9 g/dL Low 3.4-4.8 [facility] Comment on above: Performed By: #### L 500.4050, L100.0100 ####[facility] [address] [place], [address] Albumin/Globulin [Mass ratio] 1.2 {ratio} Normal 0.9-2.4 [facility] Comment on above: Performed By: #### L 500.4050, L100.0100 ####[facility] [address] [place], [address] ALK PHOS 127 U/L Normal 40-129 [facility] Comment on above: Performed By: #### L 500.4050, L100.0100 ####[facility] [address] [place], [address] ALT [Catalytic activity/Vol] 13 U/L Normal <=46 [facility] Comment on above: Performed By: #### L 500.4050, L100.0100 ####[facility] [address] [place], [address] AST [Catalytic activity/Vol] 17 U/L Normal <=37 [facility] Comment on above: Performed By: #### L 500.4050, L100.0100 ####[facility] [address] [place], [address] Bilirubin [Mass/Vol] 1.53 mg/dL High 0.00-1.30 [facility] Comment on above: Performed By: #### L 500.4050, L100.0100 ####[facility] [address] [place], [address] BUN/CRE 11.2 RATIO Normal 10-20 [facility] Comment on above: Performed By: #### L 500.4050, L100.0100 ####[facility] [address] [place], [address] Calcium [Mass/Vol] 7.8 mg/dL Normal 7.6-11.0 [facility] Comment on above: Performed By: #### L 500.4050, L100.0100 ####[facility] [address] [place], [address] Chloride [Moles/Vol] 103 mmol/L Normal 98-108 [facility] Comment on above: Performed By: #### L 500.4050, L100.0100 ####[facility] [address] [place], [address] CO2 [Moles/Vol] 21.7 mmol/L Normal 21.0-32.0 [facility] Comment on above: Performed By: #### L 500.4050, L100.0100 ####[facility] [address] [place], [address] Creatinine [Mass/Vol] 1.09 mg/dL Normal 0.70-1.20 [facility] Comment on above: Performed By: #### L 500.4050, L100.0100 ####[facility] [address] [place], [address] ECRCL 51.37 ml/min Normal 50-250 [facility] Comment on above: Performed By: #### L 500.4050, L100.0100 ####[facility] [address] [place], [address] GAP 9 Normal 5-15 [facility] Comment on above: Performed By: #### L 500.4050, L100.0100 ####[facility] [address] [place], [address] GFR/1.73 sq M.predicted among non-blacks MDRD (S/P/Bld) [Vol rate/Area] 65 mL/min/{1.73_m2} Normal >60 [facility] Comment on above: Result Comment: mL/m in/1.73m2 CKD-EPI Creatinine Equation (2020) Performed By: #### L 500.4050, L100.0100 ####[facility] [address] [place], [address] Globulin (S) [Mass/Vol] 2.5 g/dL Normal 2.2-4.2 [facility] Comment on above: Performed By: #### L 500.4050, L100.0100 ####[facility] [address] [place], [address] Glucose [Mass/Vol] 102 mg/dL High 70-99 [facility] Comment on above: Performed By: #### L 500.4050, L100.0100 ####[facility] [address] [place], [address] Potassium [Moles/Vol] 3.5 mmol/L Normal 3.3-5.1 [facility] Comment on above: Performed By: #### L 500.4050, L100.0100 ####[facility] [address] [place], [address] Sodium [Moles/Vol] 134 mmol/L Normal 133-145 [facility] Comment on above: Performed By: #### L 500.4050, L100.0100 ####[facility] [address] [place], [address] T PROT 5.4 g/dL Low 5.9-8.4 [facility] Comment on above: Performed By: #### L 500.4050, L100.0100 ####[facility] [address] [place], [address] Urea nitrogen [Mass/Vol] 12 mg/dL Normal 4-19 [facility] Comment on above: Performed By: #### L 500.4050, L100.0100 ####[facility] [address] [place], [address] CBC W/Diff, Automatedon 07-1 Absolute Lymph 1.12 X10 3/uL Normal 0.83-4.51 [facility] Comment on above: Performed By: #### L 100.0100, L500.4050 ####[facility] [address] [place], [address] Absolute Neut 6.1 X10 3/uL Normal 2.0-7.7 [facility] Comment on above: Performed By: #### L 100.0100, L500.4050 ####[facility] [address] [place], [address] Basophils/100 WBC (Bld) 0.5 % Normal 0-1 [facility] Comment on above: Performed By: #### L 100.0100, L500.4050 ####[facility] [address] [place], [address] Eosinophils/100 WBC (Bld) 2.2 % Normal 0-5 [facility] Comment on above: Performed By: #### L 100.0100, L500.4050 ####[facility] [address] [place], [address] Erythrocyte distribution width (RBC) [Ratio] 13.4 % Normal 11.6-14.6 [facility] Comment on above: Performed By: #### L 100.0100, L500.4050 ####[facility] [address] [place], [address] Hematocrit (Bld) [Volume fraction] 32.4 % Low 40-54 [facility] Comment on above: Performed By: #### L 100.0100, L500.4050 ####[facility] [address] [place], [address] Hemoglobin (Bld) [Mass/Vol] 11.2 g/dL Low 13.0-16.5 [facility] Comment on above: Performed By: #### L 100.0100, L500.4050 ####[facility] [address] [place], [address] IG% 0.400 Normal 0.0-0.9 [facility] Comment on above: Result Comment: IG% - Immature Granulocytes (promyelocytes, myelocytes andmetamyelocytes) > 1% indicates that a LEFT SHIFT is Present. Performed By: #### L 100.0100, L500.4050 ####[facility] [address] [place], [address] Lymphocytes/100 WBC (Bld) 13.4 % Low 19-41 [facility] Comment on above: Performed By: #### L 100.0100, L500.4050 ####[facility] [address] [place], [address] MCH (RBC) [Entitic mass] 30.7 pg Normal 27.0-32.0 [facility] Comment on above: Performed By: #### L 100.0100, L500.4050 ####[facility] [address] [place], [address] MCHC (RBC) [Mass/Vol] 34.6 g/dL Normal 32-36 [facility] Comment on above: Performed By: #### L 100.0100, L500.4050 ####[facility] [address] [place], [address] MCV (RBC) [Entitic vol] 88.8 fL Normal 80-94 [facility] Comment on above: Performed By: #### L 100.0100, L500.4050 ####[facility] [address] [place], [address] Monocytes/100 WBC (Bld) 10.2 % High 0-10 [facility] Comment on above: Performed By: #### L 100.0100, L500.4050 ####[facility] [address] [place], [address] Neutrophils/100 WBC (Bld) 73.3 % High 47-70 [facility] Comment on above: Performed By: #### L 100.0100, L500.4050 ####[facility] [address] [place], [address] Nucleated RBC (Bld) [#/Vol] 0 10*3/uL Normal 0-5 [facility] Comment on above: Performed By: #### L 100.0100, L500.4050 ####[facility] [address] [place], [address] Platelet mean volume (Bld) [Entitic vol] 11.1 fL Normal 6.2-12.0 [facility] Comment on above: Performed By: #### L 100.0100, L500.4050 ####[facility] [address] [place], [address] Platelets (Bld) [#/Vol] 175 10*3/uL Normal 150-450 [facility] Comment on above: Performed By: #### L 100.0100, L500.4050 ####[facility] [address] [place], [address] RBC (Bld) [#/Vol] 3.65 10*6/uL Low 4.6-6.2 [facility] Comment on above: Performed By: #### L 100.0100, L500.4050 ####[facility] [address] [place], [address] RDW SD 43.7 fl Normal 35.1-43.9 [facility] Comment on above: Performed By: #### L 100.0100, L500.4050 ####[facility] [address] [place], [address] WBC (Bld) [#/Vol] 8.4 10*3/uL Normal 4.4-11.0 [facility] Comment on above: Performed By: #### L 100.0100, L500.4050 ####[facility] [address] [place], [address] Comprehensive Metabolic [facility] 12-05-2024 Albumin [Mass/Vol] 3.1 g/dL Low 3.4-4.8 [facility] Comment on above: Performed By: #### L 100.0100, L500.4050 ####[facility] [address] [place], [address] Albumin/Globulin [Mass ratio] 1.2 {ratio} Normal 0.9-2.4 [facility] Comment on above: Performed By: #### L 100.0100, L500.4050 ####[facility] [address] [place], [address] ALK PHOS 129 U/L Normal 40-129 [facility] Comment on above: Performed By: #### L 100.0100, L500.4050 ####[facility] [address] [place], [address] ALT [Catalytic activity/Vol] 11 U/L Normal <=46 [facility] Comment on above: Performed By: #### L 100.0100, L500.4050 ####[facility] [address] [place], [address] AST [Catalytic activity/Vol] 18 U/L Normal <=37 [facility] Comment on above: Performed By: #### L 100.0100, L500.4050 ####[facility] [address] [place], [address] Bilirubin [Mass/Vol] 2.15 mg/dL High 0.00-1.30 [facility] Comment on above: Performed By: #### L 100.0100, L500.4050 ####[facility] [address] [place], [address] BUN/CRE 11.6 RATIO Normal 10-20 [facility] Comment on above: Performed By: #### L 100.0100, L500.4050 ####[facility] [address] [place], [address] Calcium [Mass/Vol] 8.2 mg/dL Normal 7.6-11.0 [facility] Comment on above: Performed By: #### L 100.0100, L500.4050 ####[facility] [address] [place], [address] Chloride [Moles/Vol] 102 mmol/L Normal 98-108 [facility] Comment on above: Performed By: #### L 100.0100, L500.4050 ####[facility] [address] [place], [address] CO2 [Moles/Vol] 20.7 mmol/L Low 21.0-32.0 [facility] Comment on above: Performed By: #### L 100.0100, L500.4050 ####[facility] [address] [place], [address] Creatinine [Mass/Vol] 1.14 mg/dL Normal 0.70-1.20 [facility] Comment on above: Performed By: #### L 100.0100, L500.4050 ####[facility] [address] [place], [address] ECRCL 49.11 ml/min Low 50-250 [facility] Comment on above: Performed By: #### L 100.0100, L500.4050 ####[facility] [address] [place], [address] GAP 10 Normal 5-15 [facility] Comment on above: Performed By: #### L 100.0100, L500.4050 ####[facility] [address] [place], [address] GFR/1.73 sq M.predicted among non-blacks MDRD (S/P/Bld) [Vol rate/Area] 61 mL/min/{1.73_m2} Normal >60 [facility] Comment on above: Result Comment: mL/m in/1.73m2 CKD-EPI Creatinine Equation (2020) Performed By: #### L 100.0100, L500.4050 ####[facility] [address] [place], [address] Globulin (S) [Mass/Vol] 2.5 g/dL Normal 2.2-4.2 [facility] Comment on above: Performed By: #### L 100.0100, L500.4050 ####[facility] [address] [place], [address] Glucose [Mass/Vol] 117 mg/dL High 70-99 [facility] Comment on above: Performed By: #### L 100.0100, L500.4050 ####[facility] [address] [place], [address] Potassium [Moles/Vol] 3.5 mmol/L Normal 3.3-5.1 [facility] Comment on above: Performed By: #### L 100.0100, L500.4050 ####[facility] [address] [place], [address] Sodium [Moles/Vol] 132 mmol/L Low 133-145 [facility] Comment on above: Performed By: #### L 100.0100, L500.4050 ####[facility] [address] [place], [address] T PROT 5.6 g/dL Low 5.9-8.4 [facility] Comment on above: Performed By: #### L 100.0100, L500.4050 ####[facility] [address] [place], [address] Urea nitrogen [Mass/Vol] 13 mg/dL Normal 4-19 [facility] Comment on above: Performed By: #### L 100.0100, L500.4050 ####[facility] [address] [place], [address] Basic Metabolic Profile (BMP )on 12-04-2024 BUN/CRE 12.2 RATIO Normal 10-20 [facility] Comment on above: Performed By: #### L 100.0500, L500.2500 ####[facility] [address] [place], [address] Calcium [Mass/Vol] 8.4 mg/dL Normal 7.6-11.0 [facility] Comment on above: Performed By: #### L 100.0500, L500.2500 ####[facility] [address] [place], [address] Chloride [Moles/Vol] 101 mmol/L Normal 98-108 [facility] Comment on above: Performed By: #### L 100.0500, L500.2500 ####[facility] [address] [place], [address] CO2 [Moles/Vol] 24.5 mmol/L Normal 21.0-32.0 [facility] Comment on above: Performed By: #### L 100.0500, L500.2500 ####[facility] [address] [place], [address] Creatinine [Mass/Vol] 1.18 mg/dL Normal 0.70-1.20 [facility] Comment on above: Performed By: #### L 100.0500, L500.2500 ####[facility] [address] [place], [address] ECRCL 47.45 ml/min Low 50-250 [facility] Comment on above: Performed By: #### L 100.0500, L500.2500 ####[facility] [address] [place], [address] GAP 9 Normal 5-15 [facility] Comment on above: Performed By: #### L 100.0500, L500.2500 ####[facility] [address] [place], [address] GFR/1.73 sq M.predicted among non-blacks MDRD (S/P/Bld) [Vol rate/Area] 59 mL/min/{1.73_m2} Low >60 [facility] Comment on above: Result Comment: mL/m in/1.73m2 CKD-EPI Creatinine Equation (2020) Performed By: #### L 100.0500, L500.2500 ####[facility] [address] [place], [address] Glucose [Mass/Vol] 126 mg/dL High 70-99 [facility] Comment on above: Performed By: #### L 100.0500, L500.2500 ####[facility] [address] [place], [address] Potassium [Moles/Vol] 3.7 mmol/L Normal 3.3-5.1 [facility] Comment on above: Performed By: #### L 100.0500, L500.2500 ####[facility] [address] [place], [address] Sodium [Moles/Vol] 134 mmol/L Normal 133-145 [facility] Comment on above: Performed By: #### L 100.0500, L500.2500 ####[facility] [address] [place], [address] Urea nitrogen [Mass/Vol] 14 mg/dL Normal 4-19 [facility] Comment on above: Performed By: #### L 100.0500, L500.2500 ####[facility] [address] [place], [address] CBC-Complete Blood Cnt No Di ffon 12-04-2024 Erythrocyte distribution width (RBC) [Ratio] 13.4 % Normal 11.6-14.6 [facility] Comment on above: Performed By: #### L 100.0500, L500.2500 ####[facility] [address] [place], [address] Hematocrit (Bld) [Volume fraction] 30.4 % Low 40-54 [facility] Comment on above: Performed By: #### L 100.0500, L500.2500 ####[facility] [address] [place], [address] Hemoglobin (Bld) [Mass/Vol] 10.9 g/dL Low 13.0-16.5 [facility] Comment on above: Performed By: #### L 100.0500, L500.2500 ####[facility] [address] [place], [address] MCH (RBC) [Entitic mass] 31.6 pg Normal 27.0-32.0 [facility] Comment on above: Performed By: #### L 100.0500, L500.2500 ####[facility] [address] [place], [address] MCHC (RBC) [Mass/Vol] 35.9 g/dL Normal 32-36 [facility] Comment on above: Performed By: #### L 100.0500, L500.2500 ####[facility] [address] [place], [address] MCV (RBC) [Entitic vol] 88.1 fL Normal 80-94 [facility] Comment on above: Performed By: #### L 100.0500, L500.2500 ####[facility] [address] [place], [address] Platelet mean volume (Bld) [Entitic vol] 11.7 fL Normal 6.2-12.0 [facility] Comment on above: Performed By: #### L 100.0500, L500.2500 ####[facility] [address] [place], [address] Platelets (Bld) [#/Vol] 180 10*3/uL Normal 150-450 [facility] Comment on above: Performed By: #### L 100.0500, L500.2500 ####[facility] [address] [place], [address] RBC (Bld) [#/Vol] 3.45 10*6/uL Low 4.6-6.2 [facility] Comment on above: Performed By: #### L 100.0500, L500.2500 ####[facility] [address] [place], [address] RDW SD 43.5 fl Normal 35.1-43.9 [facility] Comment on above: Performed By: #### L 100.0500, L500.2500 ####[facility] [address] [place], [address] WBC (Bld) [#/Vol] 10.6 10*3/uL Normal 4.4-11.0 [facility] Comment on above: Performed By: #### L 100.0500, L500.2500 ####[facility] [address] [place], [address] Absolute lymphocyte countOrd ered By: Craley Clarke on 12-03-2024 Lymphocytes Auto (Unsp spec) [#/Vol] 0.95 10*3/uL 0.83-4.51 [facility] Absolute neutrophil countOrd ered By: Carley Clarke on 12-03-2024 Neutrophils (Bld) [#/Vol] 8.1 10*3/uL High 2.0-7.7 [facility] Anion gap in Serum or Plasma Ordered By: Carley Clarke on 12-03-2024 Anion gap [Moles/Vol] 11 mmol/L 5-15 [facility] Automated lymphocyte count a s percentage of total leukocytesOrdered By: Carley Clarke on 12-03-2024 Lymphocytes/100 WBC Auto (Unsp spec) 9.4 % Low 19-41 [facility] BUN/creatinine ratioOrdered By: Carley Clarke on 12-03-2024 Urea nitrogen/Creatinine [Mass ratio] 11.7 mg/mg 10- [facility] Basic Metabolic Profile (BMP )on 12-03-2024 BUN/CRE 11.7 RATIO Normal - [facility] Comment on above: Performed By: #### L 100.0100, L500.2500 ####[facility] [address] [place], [address] Calcium [Mass/Vol] 8.9 mg/dL Normal 7.6-11.0 [facility] Comment on above: Performed By: #### L 100.0100, L500.2500 ####[facility] [address] [place], [address] Chloride [Moles/Vol] 99 mmol/L Normal 98-108 [facility] Comment on above: Performed By: #### L 100.0100, L500.2500 ####[facility] [address] [place], [address] CO2 [Moles/Vol] 25.1 mmol/L Normal 21.0-32.0 [facility] Comment on above: Performed By: #### L 100.0100, L500.2500 ####[facility] [address] [place], [address] Creatinine [Mass/Vol] 1.21 mg/dL High 0.70-1.20 [facility] Comment on above: Performed By: #### L 100.0100, L500.2500 ####[facility] [address] [place], [address] ECRCL 46.69 ml/min Low 50-250 [facility] Comment on above: Performed By: #### L 100.0100, L500.2500 ####[facility] [address] [place], [address] GAP 11 Normal 5-15 [facility] Comment on above: Performed By: #### L 100.0100, L500.2500 ####[facility] [address] [place], [address] GFR/1.73 sq M.predicted among non-blacks MDRD (S/P/Bld) [Vol rate/Area] 57 mL/min/{1.73_m2} Low >60 [facility] Comment on above: Result Comment: mL/m in/1.73m2 CKD-EPI Creatinine Equation (2020) Performed By: #### L 100.0100, L500.2500 ####[facility] [address] [place], [address] Glucose [Mass/Vol] 127 mg/dL High 70-99 [facility] Comment on above: Performed By: #### L 100.0100, L500.2500 ####[facility] [address] [place] [place], [address] Potassium [Moles/Vol] 4.0 mmol/L Normal 3.3-5.1 [facility] Comment on above: Performed By: #### L 100.0100, L500.2500 ####[facility] [address] [place], [address] Sodium [Moles/Vol] 135 mmol/L Normal 133-145 [facility] Comment on above: Performed By: #### L 100.0100, L500.2500 ####[facility] [address] [place], [address] Urea nitrogen [Mass/Vol] 14 mg/dL Normal 4-19 [facility] Comment on above: Performed By: #### L 100.0100, L500.2500 ####[facility] [address] [place], [address] Basophil percentageOrdered B y: Carley Clarke on 12-03-2024 Basophils/100 WBC (Bld) 0.5 % 0-1 [facility] Bilirubin Test strip Ql (U)O rdered By: Carley Clarke on 12-03-2024 Bilirubin Ql (U) Negative Negative [facility] CBC W/Diff, Automatedon 11-17 Absolute Lymph 0.95 X10 3/uL Normal 0.83-4.51 [facility] Comment on above: Performed By: #### L 100.0100, L500.2500 ####[facility] [address] [place], [address] Absolute Neut 8.1 X10 3/uL High 2.0-7.7 [facility] Comment on above: Performed By: #### L 100.0100, L500.2500 ####[facility] [address] [place], [address] Basophils/100 WBC (Bld) 0.5 % Normal 0-1 [facility] Comment on above: Performed By: #### L 100.0100, L500.2500 ####[facility] [address] [place], [address] Eosinophils/100 WBC (Bld) 1.5 % Normal 0-5 [facility] Comment on above: Performed By: #### L 100.0100, L500.2500 ####[facility] [address] [place], [address] Erythrocyte distribution width (RBC) [Ratio] 13.7 % Normal 11.6-14.6 [facility] Comment on above: Performed By: #### L 100.0100, L500.2500 ####[facility] [address] [place], [address] Hematocrit (Bld) [Volume fraction] 36.4 % Low 40-54 [facility] Comment on above: Performed By: #### L 100.0100, L500.2500 ####[facility] [address] [place], [address] Hemoglobin (Bld) [Mass/Vol] 12.5 g/dL Low 13.0-16.5 [facility] Comment on above: Performed By: #### L 100.0100, L500.2500 ####[facility] [address] [place], [address] IG% 0.500 Normal 0.0-0.9 [facility] Comment on above: Result Comment: IG% - Immature Granulocytes (promyelocytes, myelocytes andmetamyelocytes) > 1% indicates that a LEFT SHIFT is Present. Performed By: #### L 100.0100, L500.2500 ####[facility] [address] [place], [address] Lymphocytes/100 WBC (Bld) 9.4 % Low 19-41 [facility] Comment on above: Performed By: #### L 100.0100, L500.2500 ####[facility] [address] [place], [address] MCH (RBC) [Entitic mass] 30.9 pg Normal 27.0-32.0 [facility] Comment on above: Performed By: #### L 100.0100, L500.2500 ####[facility] [address] [place], [address] MCHC (RBC) [Mass/Vol] 34.3 g/dL Normal 32-36 [facility] Comment on above: Performed By: #### L 100.0100, L500.2500 ####[facility] [address] [place], [address] MCV (RBC) [Entitic vol] 89.9 fL Normal 80-94 [facility] Comment on above: Performed By: #### L 100.0100, L500.2500 ####[facility] [address] [place], [address] Monocytes/100 WBC (Bld) 8.9 % Normal 0-10 [facility] Comment on above: Performed By: #### L 100.0100, L500.2500 ####[facility] [address] [place], [address] Neutrophils/100 WBC (Bld) 79.2 % High 47-70 [facility] Comment on above: Performed By: #### L 100.0100, L500.2500 ####[facility] [address] [place], [address] Nucleated RBC (Bld) [#/Vol] 0 10*3/uL Normal 0-5 [facility] Comment on above: Performed By: #### L 100.0100, L500.2500 ####[facility] [address] [place], [address] Platelet mean volume (Bld) [Entitic vol] 11.2 fL Normal 6.2-12.0 [facility] Comment on above: Performed By: #### L 100.0100, L500.2500 ####[facility] [address] [place], [address] Platelets (Bld) [#/Vol] 233 10*3/uL Normal 150-450 [facility] Comment on above: Performed By: #### L 100.0100, L500.2500 ####[facility] [address] [place], [address] RBC (Bld) [#/Vol] 4.05 10*6/uL Low 4.6-6.2 [facility] Comment on above: Performed By: #### L 100.0100, L500.2500 ####[facility] [address] [place], [address] RDW SD 45.0 fl High 35.1-43.9 [facility] Comment on above: Performed By: #### L 100.0100, L500.2500 ####[facility] [address] [place], [address] WBC (Bld) [#/Vol] 10.2 10*3/uL Normal 4.4-11.0 [facility] Comment on above: Performed By: #### L 100.0100, L500.2500 ####[facility] [address] [place], [address] Carbon dioxide, total [Moles /volume] in Central venous bloodOrdered By: Carley Clarke on 12-03-2024 CO2 [Moles/Vol] 25.1 mmol/L 21.0-32.0 [facility] Chloride assayOrdered By: Yael Clarke on 12-03-2024 Chloride [Moles/Vol] 99 mmol/L 98-108 [facility] Emergency Department Summary on 12-03-2024 Emergency Department Summary Normal [facility] Eosinophil percentageOrdered By: Carley Clarke on 12-03-2024 Eosinophils/100 WBC (Bld) 1.5 % 0-5 [facility] Erythrocyte distribution wid th ratioOrdered By: Carley Clarke on 12-03-2024 Erythrocyte distribution width (RBC) [Ratio] 13.7 % 11.6-14.6 [facility] Erythrocyte distribution wid th standard deviationOrdered By: Carley Clarke on 12-03-2024 Erythrocyte distribution width (RBC) [Ratio] 45.0 fl High 35.1-43.9 [facility] Glomerular filtration rate ( GFR) estimation/1.73 sq m using serum, plasma, or whole bOrdered By: Carley Clarke on 12-03-2024 GFR/1.73 sq M.predicted among non-blacks MDRD (S/P/Bld) [Vol rate/Area] 57 mL/min/{1.73_m2} Low >60 [facility] Comment on above: mL/min/1.73m2 CKD-EP I Creatinine Equation (2020) H AND P Exam - [facility] 12-03-2024 H&P Exam - Hospitalist Normal [facility] Hematocrit Auto (Bld) [Volum e fraction]Ordered By: Carley Clarke on 12-03-2024 Hematocrit (Bld) [Volume fraction] 36.4 % Low 40-54 [facility] Hemoglobin measurementOrdere d By: Carley Clarke on 12-03-2024 Hemoglobin (Bld) [Mass/Vol] 12.5 g/dL Low 13.0-16.5 [facility] Immature granulocytes/100 WB C Auto (Bld)Ordered By: Carley Clarke on 12-03-2024 Immature granulocytes/100 WBC (Bld) 0.500 % 0.0-0.9 [facility] Comment on above: IG% - Immature Granu locytes (promyelocytes, myelocytes and metamyelocytes) > 1% indicates that a LEFT SHIFT is Present. Ketones Test strip Ql (U)Ord ered By: Carley Clarke on 12-03-2024 Ketones Ql (U) Negative Negative [facility] MCV (mean corpuscular volume ) determinationOrdered By: Carley Clarke on 12-03-2024 MCV (RBC) [Entitic vol] 89.9 fL 80-94 [facility] Mean corpuscular hemoglobin (MCH) determinationOrdered By: Carley Clarke on 12-03-2024 MCH (RBC) [Entitic mass] 30.9 pg 27.0-32.0 [facility] Mean corpuscular hemoglobin concentration (MCHC) determinationOrdered By: Carley Clarke on 12-03-2024 MCHC (RBC) [Mass/Vol] 34.3 g/dL 32-36 [facility] Mean platelet volume determi nationOrdered By: Carley Clarke on 12-03-2024 Platelet mean volume (Bld) [Entitic vol] 11.2 fL 6.2-12.0 [facility] Microscopic analysis of urin e for red blood cells (RBC)Ordered By: Carley Clarke on 12-03-2024 Microscopic analysis of urine for red blood cells (RBC) 0 SEEN /hpf 0-5 [facility] Monocyte percentageOrdered B y: Carley Clarke on 12-03-2024 Monocytes/100 WBC (Bld) 8.9 % 0-10 [facility] Mucus LM Ql (Urine sed)Order ed By: Carley Clarke on 12-03-2024 Mucus Ql (Urine sed) 0 SEEN /hpf [facility] Neutrophil percentageOrdered By: Carley Clarke on 12-03-2024 Neutrophils/100 WBC (Bld) 79.2 % High 47-70 [facility] Nitrite Test strip Ql (U)Ord ered By: Carley Clarke on 12-03-2024 Nitrite Ql (U) Negative Negative [facility] Nucleated red blood cell per centageOrdered By: Carley Clarke on 12-03-2024 Nucleated RBC/100 WBC (Bld) [Ratio] 0 % 0-5 [facility] Platelet countOrdered By: Yael Clarke on 12-03-2024 Platelets (Bld) [#/Vol] 233 10*3/uL 150-450 [facility] Potassium measurement (mass/ volume)Ordered By: Carley Clarke on 12-03-2024 Potassium (Unsp spec) [Mass/Vol] 4.0 mmol/L 3.3-5.1 [facility] Protein Test strip Ql (U)Ord ered By: Carley Clarke on 12-03-2024 Protein Ql (U) 30 mg/dl High Negative [facility] RBC Auto (Bld) [#/Vol]Ordere d By: Carley Clarke on 12-03-2024 RBC (Bld) [#/Vol] 4.05 10*6/uL Low 4.6-6.2 [facility] Serum creatinine measurement (mass/volume)Ordered By: Carley Clarke on 12-03-2024 Creatinine [Mass/Vol] 1.21 mg/dL High 0.70-1.20 [facility] Serum glucose measurement (m ass/volume)Ordered By: Carley Clarke on 12-03-2024 Glucose [Mass/Vol] 127 mg/dL High 70-99 [facility] Serum or plasma calcium sita urement (mass/volume)Ordered By: Carley Clarke on 12-03-2024 Calcium [Mass/Vol] 8.9 mg/dL 7.6-11.0 [facility] Serum or plasma urea nitroge n measurement (mass/volume)Ordered By: Carley Clarke on 12-03-2024 Urea nitrogen [Mass/Vol] 14 mg/dL 4-19 [facility] Sodium levelOrdered By: Carley Clarke on 12-03-2024 Sodium [Moles/Vol] 135 mmol/L 133-145 [facility] Squamous epithelial cells de tection in urine sediment by light microscopyOrdered By: Carley Clarke on 12-03-2024 Epithelial cells.squamous LM Ql (Urine sed) 0 SEEN /hpf 0-5 [facility] Urinalysis, Completeon 12-03 BACTERIA 0 SEEN Normal None Seen [facility] Comment on above: Order Comment: COLLE CTOR TO SPECIFY Performed By: #### L 400.0001 ####[facility] [address] [place], [address] EPI,SQUAMOUS 0 SEEN Normal 0-5 [facility] Comment on above: Order Comment: COLLE CTOR TO SPECIFY Performed By: #### L 400.0001 ####[facility] [address] [place], [address] Mucus Ql (Urine sed) 0 SEEN Normal [facility] Comment on above: Order Comment: REGINO CTOR TO SPECIFY Performed By: #### L 400.0001 ####[facility] [address] [place], [address] RBC 0 SEEN Normal 0-5 [facility] Comment on above: Order Comment: REGINO CTOR TO SPECIFY Performed By: #### L 400.0001 ####[facility] [address] [place], [address] WBC 0 SEEN Normal 0-[address] [place] [address] Comment on above: Order Comment: REGINO CTOR TO SPECIFY Performed By: #### L 400.0001 ####[facility] [address] [place], [address] Urine clarityOrdered By: Monique Clarke on 12-03-2024 Clarity (U) Clear Clear [facility] Urine color determinationOrd ered By: Carley Clarke on 12-03-2024 Color (U) Yellow Yellow [facility] Urine glucose detectionOrder ed By: Carley Clarke on 12-03-2024 Glucose Ql (U) Normal mg/dl Normal [facility] Urine leukocyte esterase det ection by dipstickOrdered By: Carley Clarke on 12-03-2024 Leukocyte esterase Test strip Ql (U) Negative Negative [facility] Urine pHOrdered By: Carley ba on 12-03-2024 pH (U) 7.0 [pH] 5.0 - 8.0 [facility] Urine sediment bacteria coun t by microscopy (number/high power field)Ordered By: Carley Clarke on 12-03-2024 Bacteria LM.HPF (Urine sed) [#/Area] 0 /[HPF] None Seen [facility] Urine specific gravity measu rementOrdered By: Carley Clarke on 12-03-2024 Specific gravity (U) [Rel density] 1.010 1.002-1.030 [facility] Urine urobilinogen measureme ntOrdered By: Carley Clarke on 12-03-2024 Urobilinogen Ql (U) Normal mg/dl Normal [facility] White blood cell (WBC) count Ordered By: Carley Clarke on 12-03-2024 WBC (Bld) [#/Vol] 10.2 10*3/uL 4.4-11.0 [facility] White blood cell countOrdere d By: Carley Clarke on 12-03-2024 White blood cell count 0 SEEN /hpf 0-5 [facility] Gastroenterology Visit Repor ton 11-26-2024 Gastroenterology Visit Report Normal [facility] Bedside Glucoseon 11-14-2024 FINGERSTICK GLU 186 mg/dL High 74-106 [facility] Comment on above: Result Comment: MICHAEL GEMENT OF PATIENT CARE PER NURSING PROTOCOL Performed By: #### L 501.080 ####[facility] [address] [facility] [place], [place], [id number] FINGERSTICK GLU 82 mg/dL Normal 74-106 [facility] Comment on above: Result Comment: MICHAEL GEMENT OF PATIENT CARE PER NURSING PROTOCOL Performed By: #### L 501.080 ####[facility] [address] [facility]. [place], [place], [address] Discharge Instructionon 10-19 Discharge Instruction Normal [facility] Glucose measurement at bedsi deOrdered By: Ankit Last on 11-14-2024 Glucose [Mass/Vol] 186 mg/dL High 74-106 [facility] Comment on above: MANAGEMENT OF PATIEN T CARE PER NURSING PROTOCOL Bedside Glucoseon 11-13-2024 FINGERSTICK GLU 103 mg/dL Normal 74-106 [facility] Comment on above: Result Comment: MICHAEL GEMENT OF PATIENT CARE PER NURSING PROTOCOL Performed By: #### L 501.080 ####[facility] [address] [place], [address] FINGERSTICK GLU 137 mg/dL High 74-106 [facility] Comment on above: Result Comment: MICHAEL GEMENT OF PATIENT CARE PER NURSING PROTOCOL Performed By: #### L 501.080 ####[facility] [address] [facility] [address] FINGERSTICK GLU 230 mg/dL High [facility]106 [facility] Comment on above: Result Comment: MICHAEL GEMENT OF PATIENT CARE PER NURSING PROTOCOL Performed By: #### L 501.080 ####[facility] [address] [place], [address] FINGERSTICK GLU 107 mg/dL High [address] [place] [address] Comment on above: Result Comment: MICHAEL GEMENT OF PATIENT CARE PER NURSING PROTOCOL Performed By: #### L 501.080 ####[facility] [address] [facility] [address] FINGERSTICK GLU 131 mg/dL High [facility]106 [facility] Comment on above: Result Comment: MICHAEL GEMENT OF PATIENT CARE PER NURSING PROTOCOL Performed By: #### L 501.080 ####[facility] [address] [facility] [address] Gl[facility] at [facility] deOrdered By: Ankit Last on 11-13-2024 Glucose [Mass/Vol] 103 mg/dL 74-106 [facility] Comment on above: MANAGEMENT OF PATIEN T CARE PER NURSING PROTOCOL Absolute lymphocyte countOrd ered By: Unique Salazar on 11-12-2024 Lymphocytes Auto (Unsp spec) [#/Vol] 1.01 10*3/uL 0.83-4.51 [facility] Absolute neutrophil countOrd ered By: Unique Salazar on 11-12-2024 Neutrophils (Bld) [#/Vol] 6.3 10*3/uL 2.0-7.7 [facility] Anion gap in Serum or Plasma Ordered By: Unique Salazar on 11-12-2024 Anion gap [Moles/Vol] 9 mmol/L 5-15 [facility] Automated lymphocyte count a s percentage of total leukocytesOrdered By: Unique Martin on 11-12-2024 Lymphocytes/100 WBC Auto (Unsp spec) 12.1 % Low 19-41 [facility] BUN/creatinine ratioOrdered By: Unique Martin on 11-12-2024 Urea nitrogen/Creatinine [Mass ratio] 12.1 mg/mg 10-20 [facility] Basophil percentageOrdered B y: Martin on 11-12-2024 Basophils/100 WBC (Bld) 0.5 % 0-1 [facility] Bedside Glucoseon 11-12-2024 FINGERSTICK GLU 161 mg/dL High 74-106 [facility] Comment on above: Result Comment: MICHAEL GEMENT OF PATIENT CARE PER NURSING PROTOCOL Performed By: #### L 501.080 ####[facility] [address] [facility] [address] FINGERSTICK GLU 165 mg/dL High 74-106 [facility] Comment on above: Result Comment: MICHAEL GEMENT OF PATIENT CARE PER NURSING PROTOCOL Performed By: #### L 501.080 ####[facility] [address] [facility] [address] FINGERSTICK GLU 110 mg/dL High -106 [facility] Comment on above: Result Comment: MICHAEL GEMENT OF PATIENT CARE PER NURSING PROTOCOL Performed By: #### L 501.080 ####[facility] [address] [facility] [address] FINGERSTICK GLU 183 mg/dL High 74-106 [facility] Comment on above: Result Comment: MICHAEL GEMENT OF PATIENT CARE PER NURSING PROTOCOL Performed By: #### L 501.080 ####[facility] [address] [facility] [address] Bilirubin, totalOrdered By: Unique Salazar on 11-12-2024 Bilirubin [Mass/Vol] 1.85 mg/dL High 0.00-1.30 [facility] CBC W/Diff, Automatedon 06-2 Absolute Lymph 1.01 X10 3/uL Normal 0.83-4.51 [facility] Comment on above: Performed By: #### L 500.4050, L100.0100 ####[facility] [address] [place], [address] Absolute Neut 6.3 X10 3/uL Normal 2.0-7.7 [facility] Comment on above: Performed By: #### L 500.4050, L100.0100 ####[facility] [address] [place], [address] Basophils/100 WBC (Bld) 0.5 % Normal 0-1 [facility] Comment on above: Performed By: #### L 500.4050, L100.0100 ####[facility] [address] [place], [address] Eosinophils/100 WBC (Bld) 1.6 % Normal 0-5 [facility] Comment on above: Performed By: #### L 500.4050, L100.0100 ####[facility] [address] [place], [address] Erythrocyte distribution width (RBC) [Ratio] 13.2 % Normal 11.6-14.6 [facility] Comment on above: Performed By: #### L 500.4050, L100.0100 ####[facility] [address] [place], [address] Hematocrit (Bld) [Volume fraction] 31.3 % Low 40-54 [facility] Comment on above: Performed By: #### L 500.4050, L100.0100 ####[facility] [address] [place], [address] Hemoglobin (Bld) [Mass/Vol] 11.0 g/dL Low 13.0-16.5 [facility] Comment on above: Performed By: #### L 500.4050, L100.0100 ####[facility] [address] [place], [address] IG% 0.400 Normal 0.0-0.9 [facility] Comment on above: Result Comment: IG% - Immature Granulocytes (promyelocytes, myelocytes andmetamyelocytes) > 1% indicates that a LEFT SHIFT is Present. Performed By: #### L 500.4050, L100.0100 ####[facility] [address] [place], [address] Lymphocytes/100 WBC (Bld) 12.1 % Low 19-41 [facility] Comment on above: Performed By: #### L 500.4050, L100.0100 ####[facility] [address] [place], [address] MCH (RBC) [Entitic mass] 31.1 pg Normal 27.0-32.0 [facility] Comment on above: Performed By: #### L 500.4050, L100.0100 ####[facility] [address] [place], [address] MCHC (RBC) [Mass/Vol] 35.1 g/dL Normal 32-36 [facility] Comment on above: Performed By: #### L 500.4050, L100.0100 ####[facility] [address] [place], [address] MCV (RBC) [Entitic vol] 88.4 fL Normal 80-94 [facility] Comment on above: Performed By: #### L 500.4050, L100.0100 ####[facility] [address] [place], [address] Monocytes/100 WBC (Bld) 10.3 % High 0-10 [facility] Comment on above: Performed By: #### L 500.4050, L100.0100 ####[facility] [address] [place], [address] Neutrophils/100 WBC (Bld) 75.1 % High 47-70 [facility] Comment on above: Performed By: #### L 500.4050, L100.0100 ####[facility] [address] [place], [address] Nucleated RBC (Bld) [#/Vol] 0 10*3/uL Normal 0-5 [facility] Comment on above: Performed By: #### L 500.4050, L100.0100 ####[facility] [address] [place], [address] Platelet mean volume (Bld) [Entitic vol] 11.2 fL Normal 6.2-12.0 [facility] Comment on above: Performed By: #### L 500.4050, L100.0100 ####[facility] [address] [place], [address] Platelets (Bld) [#/Vol] 174 10*3/uL Normal 150-450 [facility] Comment on above: Performed By: #### L 500.4050, L100.0100 ####[facility] [address] [place], [address] RBC (Bld) [#/Vol] 3.54 10*6/uL Low 4.6-6.2 [facility] Comment on above: Performed By: #### L 500.4050, L100.0100 ####[facility] [address] [place], [address] RDW SD 42.7 fl Normal 35.1-43.9 [facility] Comment on above: Performed By: #### L 500.4050, L100.0100 ####[facility] [address] [place], [address] WBC (Bld) [#/Vol] 8.4 10*3/uL Normal 4.4-11.0 [facility] Comment on above: Performed By: #### L 500.4050, L100.0100 ####[facility] [address] [place], [address] CDIFF (PCR)on 11-12-2024 CDIFF Normal [facility] Comment on above: Performed By: #### M 100.637, M100.6796 ####[facility] [address] [place], [address] Carbon dioxide, total [Moles /volume] in Central venous bloodOrdered By: Unique Salazar on 11-12-2024 CO2 [Moles/Vol] 22.2 mmol/L 21.0-32.0 [facility] Chloride assayOrdered By: Lyn Salazar on 11-12-2024 Chloride [Moles/Vol] 106 mmol/L 98-108 [facility] Comprehensive Metabolic Prof ilon 11-12-2024 Albumin [Mass/Vol] 3.2 g/dL Low 3.4-4.8 [facility] Comment on above: Performed By: #### L 500.4050, L100.0100 ####[facility] [address] [place], [address] Albumin/Globulin [Mass ratio] 1.5 {ratio} Normal 0.9-2.4 [facility] Comment on above: Performed By: #### L 500.4050, L100.0100 ####[facility] [address] [place], [address] ALK PHOS 112 U/L Normal 40-129 [facility] Comment on above: Performed By: #### L 500.4050, L100.0100 ####[facility] [address] [place], [address] ALT [Catalytic activity/Vol] 18 U/L Normal <=46 [facility] Comment on above: Performed By: #### L 500.4050, L100.0100 ####[facility] [address] [place], [address] AST [Catalytic activity/Vol] 19 U/L Normal <=37 [facility] Comment on above: Performed By: #### L 500.4050, L100.0100 ####[facility] [address] [place], [address] Bilirubin [Mass/Vol] 1.85 mg/dL High 0.00-1.30 [facility] Comment on above: Performed By: #### L 500.4050, L100.0100 ####[facility] [address] [place], [address] BUN/CRE 12.1 RATIO Normal 10-20 [facility] Comment on above: Performed By: #### L 500.4050, L100.0100 ####[facility] [address] [place], [address] Calcium [Mass/Vol] 8.0 mg/dL Normal 7.6-11.0 [facility] Comment on above: Performed By: #### L 500.4050, L100.0100 ####[facility] [address] [place], [address] Chloride [Moles/Vol] 106 mmol/L Normal 98-108 [facility] Comment on above: Performed By: #### L 500.4050, L100.0100 ####[facility] [address] [place], [address] CO2 [Moles/Vol] 22.2 mmol/L Normal 21.0-32.0 [facility] Comment on above: Performed By: #### L 500.4050, L100.0100 ####[facility] [address] [place], [address] Creatinine [Mass/Vol] 1.26 mg/dL High 0.70-1.20 [facility] Comment on above: Performed By: #### L 500.4050, L100.0100 ####[facility] [address] [place], [address] ECRCL 44.55 ml/min Low 50-250 [facility] Comment on above: Performed By: #### L 500.4050, L100.0100 ####[facility] [address] [place], [address] GAP 9 Normal 5-15 [facility] Comment on above: Performed By: #### L 500.4050, L100.0100 ####[facility] [address] [place], [address] GFR/1.73 sq M.predicted among non-blacks MDRD (S/P/Bld) [Vol rate/Area] 55 mL/min/{1.73_m2} Low >60 [facility] Comment on above: Result Comment: mL/m in/1.73m2 CKD-EPI Creatinine Equation (2020) Performed By: #### L 500.4050, L100.0100 ####[facility] [address] [place], [address] Globulin (S) [Mass/Vol] 2.1 g/dL Low 2.2-4.2 [facility] Comment on above: Performed By: #### L 500.4050, L100.0100 ####[facility] [address] [place], [address] Glucose [Mass/Vol] 105 mg/dL High 70-99 [facility] Comment on above: Performed By: #### L 500.4050, L100.0100 ####[facility] [address] [place], [address] Potassium [Moles/Vol] 3.6 mmol/L Normal 3.3-5.1 [facility] Comment on above: Performed By: #### L 500.4050, L100.0100 ####[facility] [address] [place], [address] Sodium [Moles/Vol] 137 mmol/L Normal 133-145 [facility] Comment on above: Performed By: #### L 500.4050, L100.0100 ####[facility] [address] [place], [address] T PROT 5.3 g/dL Low 5.9-8.4 [facility] Comment on above: Performed By: #### L 500.4050, L100.0100 ####[facility] [address] [place], [address] Urea nitrogen [Mass/Vol] 15 mg/dL Normal 4-19 [facility] Comment on above: Performed By: #### L 500.4050, L100.0100 ####[facility] [address] [place], [address] ENTERIC PATHOGEN PANEL STOOL on 11-12-2024 EP PANEL Normal [facility] Comment on above: Performed By: #### M 100.637, M100.6796 ####[facility] [address] [place], [address] Eosinophil percentageOrdered By: White on 11-12-2024 Eosinophils/100 WBC (Bld) 1.6 % 0-5 [facility] Erythrocyte distribution wid th ratioOrdered By: White on 11-12-2024 Erythrocyte distribution width (RBC) [Ratio] 13.2 % 11.6-14.6 [facility] Erythrocyte distribution wid th standard deviationOrdered By: White on 11-12-2024 Erythrocyte distribution width (RBC) [Ratio] 42.7 fl 35.1-43.9 [facility] Glomerular filtration rate ( GFR) estimation/1.73 sq m using serum, plasma, or whole bOrdered By: Unique White on 11-12-2024 GFR/1.73 sq M.predicted among non-blacks MDRD (S/P/Bld) [Vol rate/Area] 55 mL/min/{1.73_m2} Low >60 [facility] Comment on above: mL/min/1.73m2 CKD-EP I Creatinine Equation (2020) Hematocrit Auto (Bld) [Volum e fraction]Ordered By: Unique Martin on 11-12-2024 Hematocrit (Bld) [Volume fraction] 31.3 % Low 40-54 [facility] Hemoglobin measurementOrdere d By: Unique Martin on 11-12-2024 Hemoglobin (Bld) [Mass/Vol] 11.0 g/dL Low 13.0-16.5 [facility] Immature granulocytes/100 WB C Auto (Bld)Ordered By: [facility] Martin on 11-12-2024 Immature granulocytes/100 WBC (Bld) 0.400 % 0.0-0.9 [facility] Comment on above: IG% - Immature Granu locytes (promyelocytes, myelocytes and metamyelocytes) > 1% indicates that a LEFT SHIFT is Present. L509.7001on 11-12-2024 Procalcitonin 0.06 ng/mL Normal <=0.10 [facility] Comment on above: Result Comment: Inte rpretation:<0.10-0.25 ng/mL: Antibiotic therapy discouraged. Bacterialinfection unlikely.0.25-0.50 ng/mL: Antibiotic therapy encouraged. Bacterialinfection possible.>0.50 ng/mL: Antibiotic therapy strongly encouraged.Suggestive of presence of bacterial infection.PCT should always be interpreted in the clinical context ofthe patient. Therefore, clinicians should use the PCTresults in conjunction with other laboratory findings andclinical signs of the patient. Performed By: #### L 509.7001 ####[facility] [address] [place], [address] Laboratory - Chemistry and C hemistry - challengeOrdered By: Unique Salazar on 11-12-2024 AST [Catalytic activity/Vol] 19 U/L <38 [facility] MCV (mean corpuscular volume ) determinationOrdered By: [facility] Martin on 11-12-2024 MCV (RBC) [Entitic vol] 88.4 fL 80-94 [facility] Mean corpuscular hemoglobin (MCH) determinationOrdered By: Unique Martin on 11-12-2024 MCH (RBC) [Entitic mass] 31.1 pg 27.0-32.0 [facility] Mean corpuscular hemoglobin concentration (MCHC) determinationOrdered By: Unique Martin on 11-12-2024 MCHC (RBC) [Mass/Vol] 35.1 g/dL 32-36 [facility] Mean platelet volume determi nationOrdered By: Unique Martin on 11-12-2024 Platelet mean volume (Bld) [Entitic vol] 11.2 fL 6.2-12.0 [facility] Monocyte percentageOrdered B y: Unique Martin on 11-12-2024 Monocytes/100 WBC (Bld) 10.3 % High 0-10 [facility] Neutrophil percentageOrdered By: Unique Martin on 11-12-2024 Neutrophils/100 WBC (Bld) 75.1 % High 47-70 [facility] Nucleated red blood cell per centageOrdered By: Unique Martin on 11-12-2024 Nucleated RBC/100 WBC (Bld) [Ratio] 0 % 0-5 [facility] Platelet countOrdered By: Lyn jones Martin on 11-12-2024 Platelets (Bld) [#/Vol] 174 10*3/uL 150-450 [facility] Potassium measurement (mass/ volume)Ordered By: Unique Salazar 11-12-2024 Potassium (Unsp spec) [Mass/Vol] 3.6 mmol/L 3.3-5.1 [facility] Procalcitonin [Mass/volume] in Serum or Plasma by ImmunoassayOrdered By: Unique Salazar on 11-12-2024 Procalcitonin IA [Mass/Vol] 0.06 ng/mL <0.11 [facility] Comment on above: Interpretation:<0.10 -0.25 ng/mL: [...] RBC (Bld) [#/Vol] 3.54 10*6/uL Low 4.6-6.2 [facility] Serum creatinine measurement (mass/volume)Ordered By: Unique Salazar on 11-12-2024 Creatinine [Mass/Vol] 1.26 mg/dL High 0.70-1.20 [facility] Serum globulin measurementOr dered By: Unique Salazar on 11-12-2024 Globulin (S) [Mass/Vol] 2.1 g/dL Low 2.2-4.2 [facility] Serum glucose measurement (m ass/volume)Ordered By: Unique Salazar on 11-12-2024 Glucose [Mass/Vol] 105 mg/dL High 70-99 [facility] Serum or plasma alanine erickson otransferase (ALT) measurementOrdered By: Unique Salazar on 11-12-2024 ALT [Catalytic activity/Vol] 18 U/L <47 [facility] Serum or plasma albumin sita urement (mass/volume)Ordered By: Unique Salazar on 11-12-2024 Albumin [Mass/Vol] 3.2 g/dL Low 3.4-4.8 [facility] Serum or plasma albumin/glob ulin mass ratioOrdered By: Unique Salazar on 11-12-2024 Albumin/Globulin [Mass ratio] 1.5 {ratio} 0.9-2.4 [facility] Serum or plasma alkaline florencia sphatase measurementOrdered By: Unique Salazar on 11-12-2024 ALP [Catalytic activity/Vol] 112 U/L 40-129 [facility] Serum or plasma calcium sita urement (mass/volume)Ordered By: Unique Salazar on 11-12-2024 Calcium [Mass/Vol] 8.0 mg/dL 7.6-11.0 [facility] Serum or plasma urea nitroge n measurement (mass/volume)Ordered By: Unique Salazar on 11-12-2024 Urea nitrogen [Mass/Vol] 15 mg/dL 4-19 [facility] Sodium levelOrdered By: Lathau mn Martin on 11-12-2024 Sodium [Moles/Vol] 137 mmol/L 133-145 [facility] Total proteinOrdered By: Aut umn White on 11-12-2024 Protein [Mass/Vol] 5.3 g/dL Low 5.9-8.4 [facility] White blood cell (WBC) count Ordered By: Unique Salazar on 11-12-2024 WBC (Bld) [#/Vol] 8.4 10*3/uL 4.4-11.0 [facility] Abdomen/Pelvis W IV Cont ONL Yon 11-11-2024 Abdomen/Pelvis W IV Cont ONLY Normal [facility] Absolute lymphocyte countOrd ered By: Bhavya Panda on 11-11-2024 Lymphocytes Auto (Unsp spec) [#/Vol] 0.95 10*3/uL 0.83-4.51 [facility] Absolute neutrophil countOrd ered By: Bhavya Panda on 11-11-2024 Neutrophils (Bld) [#/Vol] 9.3 10*3/uL High 2.0-7.7 [facility] Anion gap in Serum or Plasma Ordered By: Bhavya Panda on 11-11-2024 Anion gap [Moles/Vol] 11 mmol/L 5-15 [facility] Automated lymphocyte count a s percentage of total leukocytesOrdered By: Bhavya Panda on 11-11-2024 Lymphocytes/100 WBC Auto (Unsp spec) 8.3 % Low 19-41 [facility] BUN/creatinine ratioOrdered By: Bhavya Panda on 11-11-2024 Urea nitrogen/Creatinine [Mass ratio] 13.6 mg/mg 10-20 [facility] Basophil percentageOrdered B y: Bhavya Panda on 11-11-2024 Basophils/100 WBC (Bld) 0.3 % 0-1 [facility] Bilirubin Test strip Ql (U)O rdered By: Bhavya Panda on 11-11-2024 Bilirubin Ql (U) Negative Negative [facility] Bilirubin, totalOrdered By: Bhavya Panda on 11-11-2024 Bilirubin [Mass/Vol] 2.12 mg/dL High 0.00-1.30 [facility] CBC W/Diff, Automatedon 10-19 Absolute Lymph 0.95 X10 3/uL Normal 0.83-4.51 [facility] Comment on above: Performed By: #### L 100.0100, L500.4050, M100.7900 ####[facility] [address] [place], [address] Absolute Neut 9.3 X10 3/uL High 2.0-7.7 [facility] Comment on above: Performed By: #### L 100.0100, L500.4050, M100.7900 ####[facility] [address] [place], [address] Basophils/100 WBC (Bld) 0.3 % Normal 0-1 [facility] Comment on above: Performed By: #### L 100.0100, L500.4050, M100.7900 ####[facility] [address] [place], [address] Eosinophils/100 WBC (Bld) 0.8 % Normal 0-5 [facility] Comment on above: Performed By: #### L 100.0100, L500.4050, M100.7900 ####[facility] [address] [place], [address] Erythrocyte distribution width (RBC) [Ratio] 13.3 % Normal 11.6-14.6 [facility] Comment on above: Performed By: #### L 100.0100, L500.4050, M100.7900 ####[facility] [address] [place], [address] Hematocrit (Bld) [Volume fraction] 36.9 % Low 40-54 [facility] Comment on above: Performed By: #### L 100.0100, L500.4050, M100.7900 ####[facility] [address] [place], [address] Hemoglobin (Bld) [Mass/Vol] 12.8 g/dL Low 13.0-16.5 [facility] Comment on above: Performed By: #### L 100.0100, L500.4050, M100.7900 ####[facility] [address] [place], [address] IG% 0.600 Normal 0.0-0.9 [facility] Comment on above: Result Comment: IG% - Immature Granulocytes (promyelocytes, myelocytes andmetamyelocytes) > 1% indicates that a LEFT SHIFT is Present. Performed By: #### L 100.0100, L500.4050, M100.7900 ####[facility] [address] [place], [address] Lymphocytes/100 WBC (Bld) 8.3 % Low 19-41 [facility] Comment on above: Performed By: #### L 100.0100, L500.4050, M100.7900 ####[facility] [address] [place], [address] MCH (RBC) [Entitic mass] 31.3 pg Normal 27.0-32.0 [facility] Comment on above: Performed By: #### L 100.0100, L500.4050, M100.7900 ####[facility] [address] [place], [address] MCHC (RBC) [Mass/Vol] 34.7 g/dL Normal 32-36 [facility] Comment on above: Performed By: #### L 100.0100, L500.4050, M100.7900 ####[facility] [address] [place], [address] MCV (RBC) [Entitic vol] 90.2 fL Normal 80-94 [facility] Comment on above: Performed By: #### L 100.0100, L500.4050, M100.7900 ####[facility] [address] [place], [address] Monocytes/100 WBC (Bld) 8.4 % Normal 0-10 [facility] Comment on above: Performed By: #### L 100.0100, L500.4050, M100.7900 ####[facility] [address] [place], [address] Neutrophils/100 WBC (Bld) 81.6 % High 47-70 [facility] Comment on above: Performed By: #### L 100.0100, L500.4050, M100.7900 ####[facility] [address] [place], [address] Nucleated RBC (Bld) [#/Vol] 0 10*3/uL Normal 0-5 [facility] Comment on above: Performed By: #### L 100.0100, L500.4050, M100.7900 ####[facility] [address] [place], [address] Platelet mean volume (Bld) [Entitic vol] 11.0 fL Normal 6.2-12.0 [facility] Comment on above: Performed By: #### L 100.0100, L500.4050, M100.7900 ####[facility] [address] [place], [address] Platelets (Bld) [#/Vol] 211 10*3/uL Normal 150-450 [facility] Comment on above: Performed By: #### L 100.0100, L500.4050, M100.7900 ####[facility] [address] [place], [address] RBC (Bld) [#/Vol] 4.09 10*6/uL Low 4.6-6.2 [facility] Comment on above: Performed By: #### L 100.0100, L500.4050, M100.7900 ####[facility] [address] [place], [address] RDW SD 43.8 fl Normal 35.1-43.9 [facility] Comment on above: Performed By: #### L 100.0100, L500.4050, M100.7900 ####[facility] [address] [place], [address] WBC (Bld) [#/Vol] 11.4 10*3/uL High 4.4-11.0 [facility] Comment on above: Performed By: #### L 100.0100, L500.4050, M100.7900 ####[facility] [address] [place], [address] Carbon dioxide, total [Moles /volume] in Central venous bloodOrdered By: Bhavya Panda on 11-11-2024 CO2 [Moles/Vol] 23.1 mmol/L 21.0-32.0 [facility] Chloride assayOrdered By: Rogelio Panda on 11-11-2024 Chloride [Moles/Vol] 102 mmol/L 98-108 [facility] Clostridium difficile detect ion by polymerase chain reactionOrdered By: Unique Salazar on 11-11-2024 C. difficile DNA MELIZA+probe Ql (Unsp spec) [facility] Comprehensive Metabolic Prof ilon 11-11-2024 Albumin [Mass/Vol] 3.7 g/dL Normal 3.4-4.8 [facility] Comment on above: Performed By: #### L 100.0100, L500.4050, M100.7900 ####[facility] [address] [place], [address] Albumin/Globulin [Mass ratio] 1.2 {ratio} Normal 0.9-2.4 [facility] Comment on above: Performed By: #### L 100.0100, L500.4050, M100.7900 ####[facility] [address] [place], [address] ALK PHOS 142 U/L High 40-129 [facility] Comment on above: Performed By: #### L 100.0100, L500.4050, M100.7900 ####[facility] [address] [place], [address] ALT [Catalytic activity/Vol] 19 U/L Normal <=46 [facility] Comment on above: Performed By: #### L 100.0100, L500.4050, M100.7900 ####[facility] [address] [place], [address] AST [Catalytic activity/Vol] 24 U/L Normal <=37 [facility] Comment on above: Performed By: #### L 100.0100, L500.4050, M100.7900 ####[facility] [address] [place], [address] Bilirubin [Mass/Vol] 2.12 mg/dL High 0.00-1.30 [facility] Comment on above: Performed By: #### L 100.0100, L500.4050, M100.7900 ####[facility] [address] [place], [address] BUN/CRE 13.6 RATIO Normal 10-20 [facility] Comment on above: Performed By: #### L 100.0100, L500.4050, M100.7900 ####[facility] [address] [place], [address] Calcium [Mass/Vol] 8.8 mg/dL Normal 7.6-11.0 [facility] Comment on above: Performed By: #### L 100.0100, L500.4050, M100.7900 ####[facility] [address] [place], [address] Chloride [Moles/Vol] 102 mmol/L Normal 98-108 [facility] Comment on above: Performed By: #### L 100.0100, L500.4050, M100.7900 ####[facility] [address] [place], [address] CO2 [Moles/Vol] 23.1 mmol/L Normal 21.0-32.0 [facility] Comment on above: Performed By: #### L 100.0100, L500.4050, M100.7900 ####[facility] [address] [place], [address] Creatinine [Mass/Vol] 1.46 mg/dL High 0.70-1.20 [facility] Comment on above: Performed By: #### L 100.0100, L500.4050, M100.7900 ####[facility] [address] [place], [address] GAP 11 Normal 5-15 [facility] Comment on above: Performed By: #### L 100.0100, L500.4050, M100.7900 ####[facility] [address] [place], [address] GFR/1.73 sq M.predicted among non-blacks MDRD (S/P/Bld) [Vol rate/Area] 46 mL/min/{1.73_m2} Low >60 [facility] Comment on above: Result Comment: mL/m in/1.73m2 CKD-EPI Creatinine Equation (2020) Performed By: #### L 100.0100, L500.4050, M100.7900 ####[facility] [address] [place], [address] Globulin (S) [Mass/Vol] 3.0 g/dL Normal 2.2-4.2 [facility] Comment on above: Performed By: #### L 100.0100, L500.4050, M100.7900 ####[facility] [address] [place], [address] Glucose [Mass/Vol] 171 mg/dL High 70-99 [facility] Comment on above: Performed By: #### L 100.0100, L500.4050, M100.7900 ####[facility] [address] [place], [address] Potassium [Moles/Vol] 4.0 mmol/L Normal 3.3-5.1 [facility] Comment on above: Performed By: #### L 100.0100, L500.4050, M100.7900 ####[facility] [address] [place], [address] Sodium [Moles/Vol] 136 mmol/L Normal 133-145 [facility] Comment on above: Performed By: #### L 100.0100, L500.4050, M100.7900 ####[facility] [address] [place], [address] T PROT 6.7 g/dL Normal 5.9-8.4 [facility] Comment on above: Performed By: #### L 100.0100, L500.4050, M100.7900 ####[facility] [address] [place], [address] Urea nitrogen [Mass/Vol] 20 mg/dL High 4-19 [facility] Comment on above: Performed By: #### L 100.0100, L500.4050, M100.7900 ####[facility] [address] [place], [address] Emergency Department Summary on 11-11-2024 Emergency Department Summary Normal [facility] Eosinophil percentageOrdered By: Bhavya Panda on 11-11-2024 Eosinophils/100 WBC (Bld) 0.8 % 0-5 [facility] Erythrocyte distribution wid th ratioOrdered By: Bhavya Panda on 11-11-2024 Erythrocyte distribution width (RBC) [Ratio] 13.3 % 11.6-14.6 [facility] Erythrocyte distribution wid th standard deviationOrdered By: Bhavya Panda on 11-11-2024 Erythrocyte distribution width (RBC) [Ratio] 43.8 fl 35.1-43.9 [facility] Glomerular filtration rate ( GFR) estimation/1.73 sq m using serum, plasma, or whole bOrdered By: Bhavya Panda on 11-11-2024 GFR/1.73 sq M.predicted among non-blacks MDRD (S/P/Bld) [Vol rate/Area] 46 mL/min/{1.73_m2} Low >60 [facility] Comment on above: mL/min/1.73m2 CKD-EP I Creatinine Equation (2020) H AND P Exam - Hospital[facility] 11-11-2024 H&P Exam - Hospitalist Normal [facility] Hematocrit Auto (Bld) [Volum e fraction]Ordered By: Bhavya Panda on 11-11-2024 Hematocrit (Bld) [Volume fraction] 36.9 % Low 40-54 [facility] Hemoglobin measurementOrdere d By: Bhavya Panda on 11-11-2024 Hemoglobin (Bld) [Mass/Vol] 12.8 g/dL Low 13.0-16.5 [facility] Immature granulocytes/100 WB C Auto (Bld)Ordered By: Bhavya Panda on 11-11-2024 Immature granulocytes/100 WBC (Bld) 0.600 % 0.0-0.9 [facility] Comment on above: IG% - Immature Granu locytes (promyelocytes, myelocytes and metamyelocytes) > 1% indicates that a LEFT SHIFT is Present. Ketones Test strip Ql (U)Ord ered By: Bhavya Panda on 11-11-2024 Ketones Ql (U) Negative Negative [facility] Laboratory - Chemistry and C hemistry - challengeOrdered By: Bhavya Panda on 11-11-2024 AST [Catalytic activity/Vol] 24 U/L <38 [facility] MCV (mean corpuscular volume ) determinationOrdered By: Bhavya Panda on 11-11-2024 MCV (RBC) [Entitic vol] 90.2 fL 80-94 [facility] Magnesiumon 11-11-2024 Magnesium [Mass/Vol] 1.9 mg/dL Normal 1.5-2.2 [facility] Comment on above: Order Comment: Comme nts: May add to ED labsComments: may add to ED labs Performed By: #### L 501.2300, L501.5200 ####[facility] [address] [place], [address] Magnesium measurement (mass/ volume)Ordered By: Unique Salazar on 11-11-2024 Magnesium (Unsp spec) [Mass/Vol] 1.9 mg/dL 1.5-2.2 [facility] Mean corpuscular hemoglobin (MCH) determinationOrdered By: Bhavya Panda on 11-11-2024 MCH (RBC) [Entitic mass] 31.3 pg 27.0-32.0 [facility] Mean corpuscular hemoglobin concentration (MCHC) determinationOrdered By: Bhavya Panda on 11-11-2024 MCHC (RBC) [Mass/Vol] 34.7 g/dL 32-36 [facility] Mean platelet volume determi nationOrdered By: Bhavya Panda on 11-11-2024 Platelet mean volume (Bld) [Entitic vol] 11.0 fL 6.2-12.0 [facility] Microscopic analysis of urin e for red blood cells (RBC)Ordered By: Bhavya Panda on 11-11-2024 Microscopic analysis of urine for red blood cells (RBC) 0-5 SEEN /hpf 0-5 [facility] Monocyte percentageOrdered B y: Bhavya Panda on 11-11-2024 Monocytes/100 WBC (Bld) 8.4 % 0-10 [facility] Mucus LM Ql (Urine sed)Order ed By: Bhavya Panda on 11-11-2024 Mucus Ql (Urine sed) 0 SEEN /hpf [facility] Neutrophil percentageOrdered By: Bhavya Panda on 11-11-2024 Neutrophils/100 WBC (Bld) 81.6 % High 47-70 [facility] Nitrite Test strip Ql (U)Ord ered By: Bhavya Panda on 11-11-2024 Nitrite Ql (U) Negative Negative [facility] Nucleated red blood cell per centageOrdered By: Bhavya Panda on 11-11-2024 Nucleated RBC/100 WBC (Bld) [Ratio] 0 % 0-5 [facility] Phosphoruson 11-11-2024 Phosphate [Mass/Vol] 3.2 mg/dL Normal 2.7-4.5 [facility] Comment on above: Order Comment: Comme nts: May add to ED labsComments: may add to ED labs Performed By: #### L 501.2300, L501.5200 ####[facility] [address] [place], [address] Platelet countOrdered By: Rogelio Panda on 11-11-2024 Platelets (Bld) [#/Vol] 211 10*3/uL 150-450 [facility] Potassium measurement (mass/ volume)Ordered By: Bhavya Panda on 11-11-2024 Potassium (Unsp spec) [Mass/Vol] 4.0 mmol/L 3.3-5.1 [facility] Protein Test strip Ql (U)Ord ered By: Bhavya Panda on 11-11-2024 Protein Ql (U) 30 mg/dl High Negative [facility] RBC Auto (Bld) [#/Vol]Ordere d By: Bhavya Panda on 11-11-2024 RBC (Bld) [#/Vol] 4.09 10*6/uL Low 4.6-6.2 [facility] Serum creatinine measurement (mass/volume)Ordered By: Bhavya Panda on 11-11-2024 Creatinine [Mass/Vol] 1.46 mg/dL High 0.70-1.20 [facility] Serum globulin measurementOr dered By: Bhavya Panda on 11-11-2024 Globulin (S) [Mass/Vol] 3.0 g/dL 2.2-4.2 [facility] Serum glucose measurement (m ass/volume)Ordered By: Bhavya Panda on 11-11-2024 Glucose [Mass/Vol] 171 mg/dL High 70-99 [facility] Serum or plasma alanine erickson otransferase (ALT) measurementOrdered By: Bhavya Panda on 11-11-2024 ALT [Catalytic activity/Vol] 19 U/L <47 [facility] Serum or plasma albumin sita urement (mass/volume)Ordered By: Bhavya Panda on 11-11-2024 Albumin [Mass/Vol] 3.7 g/dL 3.4-4.8 [facility] Serum or plasma albumin/glob ulin mass ratioOrdered By: Bhavya Panda on 11-11-2024 Albumin/Globulin [Mass ratio] 1.2 {ratio} 0.9-2.4 [facility] Serum or plasma alkaline florencia sphatase measurementOrdered By: Bhavya Panda on 11-11-2024 ALP [Catalytic activity/Vol] 142 U/L High 40-129 [facility] Serum or plasma calcium sita urement (mass/volume)Ordered By: Bhavya Panda on 11-11-2024 Calcium [Mass/Vol] 8.8 mg/dL 7.6-11.0 [facility] Serum or plasma urea nitroge n measurement (mass/volume)Ordered By: Bhavya Panda on 11-11-2024 Urea nitrogen [Mass/Vol] 20 mg/dL High 4-19 [facility] Sodium levelOrdered By: Tigist Panda on 11-11-2024 Sodium [Moles/Vol] 136 mmol/L 133-145 [facility] Squamous epithelial cells de tection in urine sediment by light microscopyOrdered By: Bhavya Panda on 11-11-2024 Epithelial cells.squamous LM Ql (Urine sed) 0 SEEN /hpf 0-5 [facility] Stool Occult Blood iFOBon STOB Positive Normal [facility] Comment on above: Performed By: #### L 100.0100, L500.4050, M100.7900 ####[facility] [address] [place], [address] Stool gastrointestinal hemog lobin detection by immunologic methodOrdered By: Bhavya Panda on 11-11-2024 Lower GI hemoglobin IA Ql (Stl) Positive Abnormal [facility] Total proteinOrdered By: Yaneli Panda on 11-11-2024 Protein [Mass/Vol] 6.7 g/dL 5.9-8.4 [facility] Urinalysis, Completeon 11-11 RBC 0-5 SEEN Normal 0-5 [facility] Comment on above: Order Comment: CLEAN CATCH Performed By: #### L 400.0001 ####[facility] [address] [place], [address] WBC 0-5 SEEN Normal 0-5 [facility] Comment on above: Order Comment: CLEAN CATCH Performed By: #### L 400.0001 ####[facility] [address] [place], [address] BACTERIA 0 SEEN Normal None Seen [facility] Comment on above: Order Comment: CLEAN CATCH Performed By: #### L 400.0001 ####[facility] [address] [place], [address] EPI,SQUAMOUS 0 SEEN Normal 0-5 [facility] Comment on above: Order Comment: CLEAN CATCH Performed By: #### L 400.0001 ####[facility] [address] [place], [address] Mucus Ql (Urine sed) 0 SEEN Normal [facility] Comment on above: Order Comment: CLEAN CATCH Performed By: #### L 400.0001 ####[facility] [address] [place], [address] Urine clarityOrdered By: Yaneli Panda on 11-11-2024 Clarity (U) Clear Clear [facility] Urine color determinationOrd ered By: Bhavya Panda on 11-11-2024 Color (U) Yellow Yellow [facility] Urine glucose detectionOrder ed By: Bhavya Panda on 11-11-2024 Glucose Ql (U) Normal mg/dl Normal [facility] Urine leukocyte esterase det ection by dipstickOrdered By: Bhavya Panda on 11-11-2024 Leukocyte esterase Test strip Ql (U) 25 /ul High Negative [facility] Urine pHOrdered By: Bhavya jha on 11-11-2024 pH (U) 6.0 [pH] 5.0 - 8.0 [facility] Urine sediment bacteria coun t by microscopy (number/high power field)Ordered By: Bhavya Panda on 11-11-2024 Bacteria LM.HPF (Urine sed) [#/Area] 0 /[HPF] None Seen [facility] Urine specific gravity measu rementOrdered By: Bhavya Panda on 11-11-2024 Specific gravity (U) [Rel density] 1.020 1.002-1.030 [facility] Urine urobilinogen measureme ntOrdered By: Bhavya Panda on 11-11-2024 Urobilinogen Ql (U) 1 mg/dl High Normal [facility] White blood cell (WBC) count Ordered By: Bhavya Panda on 11-11-2024 WBC (Bld) [#/Vol] 11.4 10*3/uL High 4.4-11.0 [facility] White blood cell countOrdere d By: Bhavya Panda on 11-11-2024 White blood cell count 0-5 SEEN /hpf 0-5 [facility] Abdomen Single Viewon 2024 Abdomen Single View Normal [facility] Absolute lymphocyte countOrd ered By: Bernard Nugent on 10-30-2024 Lymphocytes Auto (Unsp spec) [#/Vol] 0.94 10*3/uL 0.83-4.51 [facility] Absolute neutrophil countOrd ered By: Bernard Nugent on 10-30-2024 Neutrophils (Bld) [#/Vol] 9.0 10*3/uL High 2.0-7.7 [facility] Anion gap in Serum or Plasma Ordered By: Bernard Nugent on 10-30-2024 Anion gap [Moles/Vol] 10 mmol/L 5-15 [facility] Automated lymphocyte count a s percentage of total leukocytesOrdered By: Bernard Nugent on 10-30-2024 Lymphocytes/100 WBC Auto (Unsp spec) 8.4 % Low 19-41 [facility] BUN/creatinine ratioOrdered By: Bernard Nugent on 10-30-2024 Urea nitrogen/Creatinine [Mass ratio] 10.8 mg/mg 10-20 [facility] Basophil percentageOrdered B y: Bernard Nugent on 10-30-2024 Basophils/100 WBC (Bld) 0.7 % 0-1 [facility] Bilirubin, totalOrdered By: Bernard Nugent on 10-30-2024 Bilirubin [Mass/Vol] 2.53 mg/dL High 0.00-1.30 [facility] CBC W/Diff, Automatedon 06-05 22-2024 Absolute Lymph 0.94 X10 3/uL Normal 0.83-4.51 [facility] Comment on above: Performed By: #### L 500.4050, L501.5200, L100.0100, L501.2300 ####[facility] [address] [place], [address] Absolute Neut 9.0 X10 3/uL High 2.0-7.7 [facility] Comment on above: Performed By: #### L 500.4050, L501.5200, L100.0100, L501.2300 ####[facility] [address] [place], [address] Basophils/100 WBC (Bld) 0.7 % Normal 0-1 [facility] Comment on above: Performed By: #### L 500.4050, L501.5200, L100.0100, L501.2300 ####[facility] [address] [place], [address] Eosinophils/100 WBC (Bld) 1.3 % Normal 0-5 [facility] Comment on above: Performed By: #### L 500.4050, L501.5200, L100.0100, L501.2300 ####[facility] [address] [place], [address] Erythrocyte distribution width (RBC) [Ratio] 13.2 % Normal 11.6-14.6 [facility] Comment on above: Performed By: #### L 500.4050, L501.5200, L100.0100, L501.2300 ####[facility] [address] [place], [address] Hematocrit (Bld) [Volume fraction] 37.8 % Low 40-54 [facility] [facility] Comment on above: Performed By: #### L 500.4050, L501.5200, L100.0100, L501.2300 ####[facility] [address] [place], [address] Hemoglobin (Bld) [Mass/Vol] 13.2 g/dL Normal 13.0-16.5 [facility] Comment on above: Performed By: #### L 500.4050, L501.5200, L100.0100, L501.2300 ####[facility] [address] [place], [address] IG% 0.500 Normal 0.0-0.9 [facility] Comment on above: Result Comment: IG% - Immature Granulocytes (promyelocytes, myelocytes andmetamyelocytes) > 1% indicates that a LEFT SHIFT is Present. Performed By: #### L 500.4050, L501.5200, L100.0100, L501.2300 ####[facility] [address] [place], [address] Lymphocytes/100 WBC (Bld) 8.4 % Low 19-41 [facility] Comment on above: Performed By: #### L 500.4050, L501.5200, L100.0100, L501.2300 ####[facility] [address] [place], [address] MCH (RBC) [Entitic mass] 31.6 pg Normal 27.0-32.0 [facility] Comment on above: Performed By: #### L 500.4050, L501.5200, L100.0100, L501.2300 ####[facility] [address] [place], [address] MCHC (RBC) [Mass/Vol] 34.9 g/dL Normal 32-36 [facility] Comment on above: Performed By: #### L 500.4050, L501.5200, L100.0100, L501.2300 ####[facility] [address] [place], [address] MCV (RBC) [Entitic vol] 90.4 fL Normal 80-94 [facility] Comment on above: Performed By: #### L 500.4050, L501.5200, L100.0100, L501.2300 ####[facility] [address] [place], [address] Monocytes/100 WBC (Bld) 8.2 % Normal 0-10 [facility] Comment on above: Performed By: #### L 500.4050, L501.5200, L100.0100, L501.2300 ####[facility] [address] [place], [address] Neutrophils/100 WBC (Bld) 80.9 % High 47-70 [facility] Comment on above: Performed By: #### L 500.4050, L501.5200, L100.0100, L501.2300 ####[facility] [address] [place], [address] Nucleated RBC (Bld) [#/Vol] 0 10*3/uL Normal 0-5 [facility] Comment on above: Performed By: #### L 500.4050, L501.5200, L100.0100, L501.2300 ####[facility] [address] [place], [address] Platelet mean volume (Bld) [Entitic vol] 10.9 fL Normal 6.2-12.0 [facility] Comment on above: Performed By: #### L 500.4050, L501.5200, L100.0100, L501.2300 ####[facility] [address] [place], [address] Platelets (Bld) [#/Vol] 250 10*3/uL Normal 150-450 [facility] Comment on above: Performed By: #### L 500.4050, L501.5200, L100.0100, L501.2300 ####[facility] [address] [place], [address] RBC (Bld) [#/Vol] 4.18 10*6/uL Low 4.6-6.2 [facility] Comment on above: Performed By: #### L 500.4050, L501.5200, L100.0100, L501.2300 ####[facility] [address] [place], [address] RDW SD 43.7 fl Normal 35.1-43.9 [facility] Comment on above: Performed By: #### L 500.4050, L501.5200, L100.0100, L501.2300 ####[facility] [address] [place], [address] WBC (Bld) [#/Vol] 11.2 10*3/uL High 4.4-11.0 [facility] Comment on above: Performed By: #### L 500.4050, L501.5200, L100.0100, L501.2300 ####[facility] [address] [place], [address] Carbon dioxide, total [Moles /volume] in Central venous bloodOrdered By: Bernard Nugent on 10-30-2024 CO2 [Moles/Vol] 21.1 mmol/L 21.0-32.0 [facility] Chloride assayOrdered By: Vick Nugent on 10-30-2024 Chloride [Moles/Vol] 100 mmol/L 98-108 [facility] Comprehensive Metabolic Prof ilon 10-30-2024 Albumin [Mass/Vol] 3.7 g/dL Normal 3.4-4.8 [facility] Comment on above: Performed By: #### L 500.4050, L501.5200, L100.0100, L501.2300 ####[facility] [address] [place], [address] Albumin/Globulin [Mass ratio] 1.2 {ratio} Normal 0.9-2.4 [facility] Comment on above: Performed By: #### L 500.4050, L501.5200, L100.0100, L501.2300 ####[facility] [address] [place], [address] ALK PHOS 147 U/L High 40-129 [facility] Comment on above: Performed By: #### L 500.4050, L501.5200, L100.0100, L501.2300 ####[facility] [address] [place], [address] ALT [Catalytic activity/Vol] 20 U/L Normal <=46 [facility] Comment on above: Performed By: #### L 500.4050, L501.5200, L100.0100, L501.2300 ####[facility] [address] [place], [address] AST [Catalytic activity/Vol] 25 U/L Normal <=37 [facility] Comment on above: Result Comment: Hemo lysis present, Results??could be affected.?? Performed By: #### L 500.4050, L501.5200, L100.0100, L501.2300 ####[facility] [address] [place], [address] Bilirubin [Mass/Vol] 2.53 mg/dL High 0.00-1.30 [facility] Comment on above: Performed By: #### L 500.4050, L501.5200, L100.0100, L501.2300 ####[facility] [address] [place], [address] BUN/CRE 10.8 RATIO Normal 10-20 [facility] Comment on above: Performed By: #### L 500.4050, L501.5200, L100.0100, L501.2300 ####[facility] [address] [place], [address] Calcium [Mass/Vol] 8.7 mg/dL Normal 7.6-11.0 [facility] Comment on above: Performed By: #### L 500.4050, L501.5200, L100.0100, L501.2300 ####[facility] [address] [place], [address] Chloride [Moles/Vol] 100 mmol/L Normal 98-108 [facility] Comment on above: Performed By: #### L 500.4050, L501.5200, L100.0100, L501.2300 ####[facility] [address] [place], [address] CO2 [Moles/Vol] 21.1 mmol/L Normal 21.0-32.0 [facility] Comment on above: Performed By: #### L 500.4050, L501.5200, L100.0100, L501.2300 ####[facility] [address] [place], [address] Creatinine [Mass/Vol] 1.41 mg/dL High 0.70-1.20 [facility] Comment on above: Performed By: #### L 500.4050, L501.5200, L100.0100, L501.2300 ####[facility] [address] [place], [address] GAP 10 Normal 5-15 [facility] Comment on above: Performed By: #### L 500.4050, L501.5200, L100.0100, L501.2300 ####[facility] [address] [place], [address] GFR/1.73 sq M.predicted among non-blacks MDRD (S/P/Bld) [Vol rate/Area] 48 mL/min/{1.73_m2} Low >60 [facility] Comment on above: Result Comment: mL/m in/1.73m2 CKD-EPI Creatinine Equation (2020) Performed By: #### L 500.4050, L501.5200, L100.0100, L501.2300 ####[facility] [address] [place], [address] Globulin (S) [Mass/Vol] 3.1 g/dL Normal 2.2-4.2 [facility] Comment on above: Performed By: #### L 500.4050, L501.5200, L100.0100, L501.2300 ####[facility] [address] [place], [address] Glucose [Mass/Vol] 150 mg/dL High 70-99 [facility] Comment on above: Performed By: #### L 500.4050, L501.5200, L100.0100, L501.2300 ####[facility] [address] [place], [address] Potassium [Moles/Vol] 4.3 mmol/L Normal 3.3-5.1 [facility] Comment on above: Result Comment: Hemo lysis present, Results??could be affected.?? Performed By: #### L 500.4050, L501.5200, L100.0100, L501.2300 ####[facility] [address] [place], [address] Sodium [Moles/Vol] 130 mmol/L Low 133-145 [facility] Comment on above: Performed By: #### L 500.4050, L501.5200, L100.0100, L501.2300 ####[facility] [address] [place], [address] T PROT 6.8 g/dL Normal 5.9-8.4 [facility] Comment on above: Performed By: #### L 500.4050, L501.5200, L100.0100, L501.2300 ####[facility] [address] [place], [address] Urea nitrogen [Mass/Vol] 15 mg/dL Normal 4-19 [facility] Comment on above: Performed By: #### L 500.4050, L501.5200, L100.0100, L501.2300 ####[facility] [address] [place], [address] Eosinophil percentageOrdered By: Bernard Nugent on 10-30-2024 Eosinophils/100 WBC (Bld) 1.3 % 0-5 [facility] Erythrocyte distribution wid th ratioOrdered By: Bernard Nugent on 10-30-2024 Erythrocyte distribution width (RBC) [Ratio] 13.2 % 11.6-14.6 [facility] Erythrocyte distribution wid th standard deviationOrdered By: Bernard Nugent on 10-30-2024 Erythrocyte distribution width (RBC) [Ratio] 43.7 fl 35.1-43.9 [facility] Glomerular filtration rate ( GFR) estimation/1.73 sq m using serum, plasma, or whole bOrdered By: Bernard Nugent on 10-30-2024 GFR/1.73 sq M.predicted among non-blacks MDRD (S/P/Bld) [Vol rate/Area] 48 mL/min/{1.73_m2} Low >60 [facility] Comment on above: mL/min/1.73m2 CKD-EP I Creatinine Equation (2020) Hematocrit Auto (Bld) [Volum e fraction]Ordered By: Bernard Nugent on 10-30-2024 Hematocrit (Bld) [Volume fraction] 37.8 % Low 40-54 [facility] Hemoglobin measurementOrdere d By: Bernard Nugent 10-30-2024 Hemoglobin (Bld) [Mass/Vol] 13.2 g/dL 13.0-16.5 [facility] Immature granulocytes/100 WB C Auto (Bld)Ordered By: Bernard Nugent 10-30-2024 Immature granulocytes/100 WBC (Bld) 0.500 % 0.0-0.9 [facility] Comment on above: IG% - Immature Granu locytes (promyelocytes, myelocytes and metamyelocytes) > 1% indicates that a LEFT SHIFT is Present. Laboratory - Chemistry and C hemistry - challengeOrdered By: Bernard Nugent on 10-30-2024 AST [Catalytic activity/Vol] 25 U/L <38 [facility] Comment on above: Hemolysis present, R esults could be affected. MCV (mean corpuscular volume ) determinationOrdered By: Bernard Nugent on 10-30-2024 MCV (RBC) [Entitic vol] 90.4 fL 80-94 [facility] Magnesiumon 10-30-2024 Magnesium [Mass/Vol] 2.0 mg/dL Normal 1.5-2.2 [facility] Comment on above: Performed By: #### L 500.4050, L501.5200, L100.0100, L501.2300 ####[facility] [address] [place], [address] Magnesium measurement (mass/ volume)Ordered By: Bernard Nugent on 10-30-2024 Magnesium (Unsp spec) [Mass/Vol] 2.0 mg/dL 1.5-2.2 [facility] Mean corpuscular hemoglobin (MCH) determinationOrdered By: Bernard Nugent 10-30-2024 MCH (RBC) [Entitic mass] 31.6 pg 27.0-32.0 [facility] Mean corpuscular hemoglobin concentration (MCHC) determinationOrdered By: Bernard Nugent 10-30-2024 MCHC (RBC) [Mass/Vol] 34.9 g/dL 32-36 [facility] Mean platelet volume determi nationOrdered By: Bernard Nugent 10-30-2024 Platelet mean volume (Bld) [Entitic vol] 10.9 fL 6.2-12.0 [facility] Monocyte percentageOrdered B y: Bernard Nugent on 10-30-2024 Monocytes/100 WBC (Bld) 8.2 % 0-10 [facility] Neutrophil percentageOrdered By: Bernard Nugent on 10-30-2024 Neutrophils/100 WBC (Bld) 80.9 % High 47-70 [facility] Nucleated red blood cell per centageOrdered By: Bernard Nugent on 10-30-2024 Nucleated RBC/100 WBC (Bld) [Ratio] 0 % 0-5 [facility] Phosphoruson 10-30-2024 Phosphate [Mass/Vol] 3.1 mg/dL Normal 2.7-4.5 [facility] Comment on above: Performed By: #### L 500.4050, L501.5200, L100.0100, L501.2300 ####[facility] [address] [place], [address] Platelet countOrdered By: Vick Nugent on 10-30-2024 Platelets (Bld) [#/Vol] 250 10*3/uL 150-450 [facility] Potassium measurement (mass/ volume)Ordered By: Bernard Nugent on 10-30-2024 Potassium (Unsp spec) [Mass/Vol] 4.3 mmol/L 3.3-5.1 [facility] Comment on above: Hemolysis present, R esults could be affected. RBC Auto (Bld) [#/Vol]Ordere d By: Bernard Nugent on 10-30-2024 RBC (Bld) [#/Vol] 4.18 10*6/uL Low 4.6-6.2 [facility] Serum creatinine measurement (mass/volume)Ordered By: Bernard Nugent on 10-30-2024 Creatinine [Mass/Vol] 1.41 mg/dL High 0.70-1.20 [facility] Serum globulin measurementOr dered By: Bernard Nugent on 10-30-2024 Globulin (S) [Mass/Vol] 3.1 g/dL 2.2-4.2 [facility] Serum glucose measurement (m ass/volume)Ordered By: Bernard Nugent on 10-30-2024 Glucose [Mass/Vol] 150 mg/dL High 70-99 [facility] Serum or plasma alanine erickson otransferase (ALT) measurementOrdered By: Bernard Nugent on 10-30-2024 ALT [Catalytic activity/Vol] 20 U/L <47 [facility] Serum or plasma albumin sita urement (mass/volume)Ordered By: Bernard Nugent on 10-30-2024 Albumin [Mass/Vol] 3.7 g/dL 3.4-4.8 [facility] Serum or plasma albumin/glob ulin mass ratioOrdered By: Bernard Nugent on 10-30-2024 Albumin/Globulin [Mass ratio] 1.2 {ratio} 0.9-2.4 [facility] Serum or plasma alkaline florencia sphatase measurementOrdered By: Bernard Nugent on 10-30-2024 ALP [Catalytic activity/Vol] 147 U/L High 40-129 [facility] Serum or plasma calcium sita urement (mass/volume)Ordered By: Bernard Nugent on 10-30-2024 Calcium [Mass/Vol] 8.7 mg/dL 7.6-11.0 [facility] Serum or plasma urea nitroge n measurement (mass/volume)Ordered By: Bernard Nugent 10-30-2024 Urea nitrogen [Mass/Vol] 15 mg/dL 4-19 [facility] Sodium levelOrdered By: Bernard Nugent 10-30-2024 Sodium [Moles/Vol] 130 mmol/L Low 133-145 [facility] Total proteinOrdered By: Bernard Nugent 10-30-2024 Protein [Mass/Vol] 6.8 g/dL 5.9-8.4 [facility] White blood cell (WBC) count Ordered By: Bernard Nugent on 10-30-2024 WBC (Bld) [#/Vol] 11.2 10*3/uL High 4.4-11.0 [facility] Absolute lymphocyte countOrd ered By: Bernard Nugent on 10-22-2024 Lymphocytes Auto (Unsp spec) [#/Vol] 0.95 10*3/uL 0.83-4.51 [facility] Absolute neutrophil countOrd ered By: Bernard Nugent on 10-22-2024 Neutrophils (Bld) [#/Vol] 9.8 10*3/uL High 2.0-7.7 [facility] Anion gap in Serum or Plasma Ordered By: Bernard Nugent on 10-22-2024 Anion gap [Moles/Vol] 13 mmol/L 5-15 [facility] Automated lymphocyte count a s percentage of total leukocytesOrdered By: Bernard Nugent on 10-22-2024 Lymphocytes/100 WBC Auto (Unsp spec) 7.8 % Low 19-41 [facility] BUN/creatinine ratioOrdered By: Bernard Nugent on 10-22-2024 Urea nitrogen/Creatinine [Mass ratio] 9.4 mg/mg Low 10-20 [facility] Basophil percentageOrdered B y: Bernard Nugent on 10-22-2024 Basophils/100 WBC (Bld) 0.6 % 0-1 [facility] Bilirubin, totalOrdered By: Bernard Nugent on 10-22-2024 Bilirubin [Mass/Vol] 2.40 mg/dL High 0.00-1.30 [facility] CBC W/Diff, Automatedon Absolute Lymph 0.95 X10 3/uL Normal 0.83-4.51 [facility] Comment on above: Performed By: #### L 500.4050, L501.9985, L501.9520, L500.4100, L506.1001, L100.0100 ####[facility] [address] [place], [address] Absolute Neut 9.8 X10 3/uL High 2.0-7.7 [facility] Comment on above: Performed By: #### L 500.4050, L501.9985, L501.9520, L500.4100, L506.1001, L100.0100 ####[facility] [address] [place], [address] Basophils/100 WBC (Bld) 0.6 % Normal 0-1 [facility] Comment on above: Performed By: #### L 500.4050, L501.9985, L501.9520, L500.4100, L506.1001, L100.0100 ####[facility] [address] [place], [address] Eosinophils/100 WBC (Bld) 1.8 % Normal 0-5 [facility] Comment on above: Performed By: #### L 500.4050, L501.9985, L501.9520, L500.4100, L506.1001, L100.0100 ####[facility] [address] [place], [address] Erythrocyte distribution width (RBC) [Ratio] 13.2 % Normal 11.6-14.6 [facility] Comment on above: Performed By: #### L 500.4050, L501.9985, L501.9520, L500.4100, L506.1001, L100.0100 ####[facility] [address] [place], [address] Hematocrit (Bld) [Volume fraction] 38.4 % Low 40-54 [facility] Comment on above: Performed By: #### L 500.4050, L501.9985, L501.9520, L500.4100, L506.1001, L100.0100 ####[facility] [address] [place], [address] Hemoglobin (Bld) [Mass/Vol] 13.3 g/dL Normal 13.0-16.5 [facility] Comment on above: Performed By: #### L 500.4050, L501.9985, L501.9520, L500.4100, L506.1001, L100.0100 ####[facility] [address] [place], [address] IG% 1.000 High 0.0-0.9 [facility] Comment on above: Result Comment: IG% - Immature Granulocytes (promyelocytes, myelocytes andmetamyelocytes) > 1% indicates that a LEFT SHIFT is Present. Performed By: #### L 500.4050, L501.9985, L501.9520, L500.4100, L506.1001, L100.0100 ####[facility] [address] [place], [address] Lymphocytes/100 WBC (Bld) 7.8 % Low 19-41 [facility] Comment on above: Performed By: #### L 500.4050, L501.9985, L501.9520, L500.4100, L506.1001, L100.0100 ####[facility] [address] [place], [address] MCH (RBC) [Entitic mass] 31.1 pg Normal 27.0-32.0 [facility] Comment on above: Performed By: #### L 500.4050, L501.9985, L501.9520, L500.4100, L506.1001, L100.0100 ####[facility] [address] [place], [address] MCHC (RBC) [Mass/Vol] 34.6 g/dL Normal 32-36 [facility] Comment on above: Performed By: #### L 500.4050, L501.9985, L501.9520, L500.4100, L506.1001, L100.0100 ####[facility] [address] [place], [address] MCV (RBC) [Entitic vol] 89.7 fL Normal 80-94 [facility] Comment on above: Performed By: #### L 500.4050, L501.9985, L501.9520, L500.4100, L506.1001, L100.0100 ####[facility] [address] [place], [address] Monocytes/100 WBC (Bld) 9.0 % Normal 0-10 [facility] Comment on above: Performed By: #### L 500.4050, L501.9985, L501.9520, L500.4100, L506.1001, L100.0100 ####[facility] [address] [place], [address] Neutrophils/100 WBC (Bld) 79.8 % High 47-70 [facility] Comment on above: Performed By: #### L 500.4050, L501.9985, L501.9520, L500.4100, L506.1001, L100.0100 ####[facility] [address] [place], [address] Nucleated RBC (Bld) [#/Vol] 0 10*3/uL Normal 0-5 [facility] Comment on above: Performed By: #### L 500.4050, L501.9985, L501.9520, L500.4100, L506.1001, L100.0100 ####[facility] [address] [place], [address] Platelet mean volume (Bld) [Entitic vol] 10.6 fL Normal 6.2-12.0 [facility] Comment on above: Performed By: #### L 500.4050, L501.9985, L501.9520, L500.4100, L506.1001, L100.0100 ####[facility] [address] [place], [address] Platelets (Bld) [#/Vol] 285 10*3/uL Normal 150-450 [facility] Comment on above: Performed By: #### L 500.4050, L501.9985, L501.9520, L500.4100, L506.1001, L100.0100 ####[facility] [address] [place], [address] RBC (Bld) [#/Vol] 4.28 10*6/uL Low 4.6-6.2 [facility] Comment on above: Performed By: #### L 500.4050, L501.9985, L501.9520, L500.4100, L506.1001, L100.0100 ####[facility] [address] [place], [address] RDW SD 43.7 fl Normal 35.1-43.9 [facility] Comment on above: Performed By: #### L 500.4050, L501.9985, L501.9520, L500.4100, L506.1001, L100.0100 ####[facility] [address] [place], [place], [address] WBC (Bld) [#/Vol] 12.2 10*3/uL High 4.4-11.0 [facility] Comment on above: Performed By: #### L 500.4050, L501.9985, L501.9520, L500.4100, L506.1001, L100.0100 ####[facility] [address] [place], [place], [id number] Calculated very low density lipoprotein (VLDL) cholesterol measurementOrdered By: Bernard Nugent on 10-22-2024 Calculated very low density lipoprotein (VLDL) cholesterol measurement 12 mg/dL 5-40 [facility] Carbon dioxide, total [Moles /volume] in Central venous bloodOrdered By: Bernard Nugent on 10-22-2024 CO2 [Moles/Vol] 21.3 mmol/L 21.0-32.0 [facility] Chloride assayOrdered By: Vick Nugent on 10-22-2024 Chloride [Moles/Vol] 97 mmol/L Low 98-108 [facility] Comprehensive Metabolic Prof ilon 10-22-2024 Albumin [Mass/Vol] 3.8 g/dL Normal 3.4-4.8 [facility] Comment on above: Performed By: #### L 500.4050, L501.9985, L501.9520, L500.4100, L506.1001, L100.0100 ####[facility] [address] [place], [address] Albumin/Globulin [Mass ratio] 1.4 {ratio} Normal 0.9-2.4 [facility] Comment on above: Performed By: #### L 500.4050, L501.9985, L501.9520, L500.4100, L506.1001, L100.0100 ####[facility] [address] [place], [address] ALK PHOS 174 U/L High 40-129 [facility] Comment on above: Performed By: #### L 500.4050, L501.9985, L501.9520, L500.4100, L506.1001, L100.0100 ####[facility] [address] [place], [address] ALT [Catalytic activity/Vol] 18 U/L Normal <=46 [facility] Comment on above: Performed By: #### L 500.4050, L501.9985, L501.9520, L500.4100, L506.1001, L100.0100 ####[facility] [address] [place], [address] AST [Catalytic activity/Vol] 21 U/L Normal <=37 [facility] Comment on above: Performed By: #### L 500.4050, L501.9985, L501.9520, L500.4100, L506.1001, L100.0100 ####[facility] [address] [place], [address] Bilirubin [Mass/Vol] 2.40 mg/dL High 0.00-1.30 [facility] Comment on above: Performed By: #### L 500.4050, L501.9985, L501.9520, L500.4100, L506.1001, L100.0100 ####[facility] [address] [place], [address] BUN/CRE 9.4 RATIO Low 10-20 [facility] Comment on above: Performed By: #### L 500.4050, L501.9985, L501.9520, L500.4100, L506.1001, L100.0100 ####[facility] [address] [place], [address] Calcium [Mass/Vol] 8.7 mg/dL Normal 7.6-11.0 [facility] Comment on above: Performed By: #### L 500.4050, L501.9985, L501.9520, L500.4100, L506.1001, L100.0100 ####[facility] [address] [place], [address] Chloride [Moles/Vol] 97 mmol/L Low 98-108 [facility] Comment on above: Performed By: #### L 500.4050, L501.9985, L501.9520, L500.4100, L506.1001, L100.0100 ####[facility] [address] [place], [address] CO2 [Moles/Vol] 21.3 mmol/L Normal 21.0-32.0 [facility] Comment on above: Performed By: #### L 500.4050, L501.9985, L501.9520, L500.4100, L506.1001, L100.0100 ####[facility] [address] [place], [address] Creatinine [Mass/Vol] 1.22 mg/dL High 0.70-1.20 [facility] Comment on above: Performed By: #### L 500.4050, L501.9985, L501.9520, L500.4100, L506.1001, L100.0100 ####[facility] [address] [place], [address] GAP 13 Normal 5-15 [facility] Comment on above: Performed By: #### L 500.4050, L501.9985, L501.9520, L500.4100, L506.1001, L100.0100 ####[facility] [address] [place], [address] GFR/1.73 sq M.predicted among non-blacks MDRD (S/P/Bld) [Vol rate/Area] 57 mL/min/{1.73_m2} Low >60 [facility] Comment on above: Result Comment: mL/m in/1.73m2 CKD-EPI Creatinine Equation (2020) Performed By: #### L 500.4050, L501.9985, L501.9520, L500.4100, L506.1001, L100.0100 ####[facility] [address] [place], [address] Globulin (S) [Mass/Vol] 2.7 g/dL Normal 2.2-4.2 [facility] Comment on above: Performed By: #### L 500.4050, L501.9985, L501.9520, L500.4100, L506.1001, L100.0100 ####[facility] [address] [place], [address] Glucose [Mass/Vol] 137 mg/dL High 70-99 [facility] Comment on above: Performed By: #### L 500.4050, L501.9985, L501.9520, L500.4100, L506.1001, L100.0100 ####[facility] [address] [place], [address] Potassium [Moles/Vol] 4.4 mmol/L Normal 3.3-5.1 [facility] Comment on above: Performed By: #### L 500.4050, L501.9985, L501.9520, L500.4100, L506.1001, L100.0100 ####[facility] [address] [place], [address] Sodium [Moles/Vol] 132 mmol/L Low 133-145 [facility] Comment on above: Performed By: #### L 500.4050, L501.9985, L501.9520, L500.4100, L506.1001, L100.0100 ####[facility] [address] [place], [address] T PROT 6.5 g/dL Normal 5.9-8.4 [facility] Comment on above: Performed By: #### L 500.4050, L501.9985, L501.9520, L500.4100, L506.1001, L100.0100 ####[facility] [address] [place], [address] Urea nitrogen [Mass/Vol] 12 mg/dL Normal 4-19 [facility] Comment on above: Performed By: #### L 500.4050, L501.9985, L501.9520, L500.4100, L506.1001, L100.0100 ####[facility] [address] [place], [address] Eosinophil percentageOrdered By: Bernard Nugent on 10-22-2024 Eosinophils/100 WBC (Bld) 1.8 % 0-5 [facility] Erythrocyte distribution wid th ratioOrdered By: Bernard Nugent on 10-22-2024 Erythrocyte distribution width (RBC) [Ratio] 13.2 % 11.6-14.6 [facility] Erythrocyte distribution wid th standard deviationOrdered By: Bernard Nugent on 10-22-2024 Erythrocyte distribution width (RBC) [Ratio] 43.7 fl 35.1-43.9 [facility] Glomerular filtration rate ( GFR) estimation/1.73 sq m using serum, plasma, or whole bOrdered By: Bernard Nugent on 10-22-2024 GFR/1.73 sq M.predicted among non-blacks MDRD (S/P/Bld) [Vol rate/Area] 57 mL/min/{1.73_m2} Low >60 [facility] Comment on above: mL/min/1.73m2 CKD-EP I Creatinine Equation (2020) Hematocrit Auto (Bld) [Volum e fraction]Ordered By: Bernard Nugent on 10-22-2024 Hematocrit (Bld) [Volume fraction] 38.4 % Low 40-54 [facility] Hemoglobin A1con 10-22-2024 HbA1c (Bld) [Mass fraction] 6.2 % High <=5.6 [facility] Comment on above: Order Comment: ADD O N-RANDOLPHHT Result Comment: Norm al < 5.7 % Prediabetic 5.7 - 6.4 % Diabetic >or= 6.5 % Please note range changes. Performed By: #### L 500.4050, L501.9985, L501.9520, L500.4100, L506.1001, L100.0100 ####[facility] [address] [place], [address] Hemoglobin A1c percentageOrd ered By: Bernard Nugent on 10-22-2024 HbA1c (Bld) [Mass fraction] 6.2 % High <5.7 [facility] Comment on above: Normal < 5.7 % Predi abetic 5.7 - 6.4 % Diabetic >or= 6.5 % Please note range changes. Hemoglobin measurementOrdere d By: Bernard Nugent on 10-22-2024 Hemoglobin (Bld) [Mass/Vol] 13.3 g/dL 13.0-16.5 [facility] Immature granulocytes/100 WB C Auto (Bld)Ordered By: Bernard Nugent on 10-22-2024 Immature granulocytes/100 WBC (Bld) 1.000 % High 0.0-0.9 [facility] Comment on above: IG% - Immature Granu locytes (promyelocytes, myelocytes and metamyelocytes) > 1% indicates that a LEFT SHIFT is Present. LDL calc ser/plasOrdered By: Bernard Nugent on 10-22-2024 Cholesterol in LDL [Mass/Vol] 33 mg/dL [facility] Comment on above: Xcglmoicyx=532-425 m g/dL & Higher Hpzg=104 mg/dL or greater Laboratory - Chemistry and C hemistry - challengeOrdered By: Bernard Nugent on 10-22-2024 AST [Catalytic activity/Vol] 21 U/L <38 [facility] Lipid Profileon 10-22-2024 CHOL:HDL 1.92 Normal [facility] Comment on above: Performed By: #### L 500.4050, L501.9985, L501.9520, L500.4100, L506.1001, L100.0100 ####[facility] [address] [place], [address] Cholesterol [Mass/Vol] 95 mg/dL Normal <=200 [facility] Comment on above: Result Comment: Chol esterol level, Desirable <200 mg/dLBorderline high cholesterol 200-239 mg/dLHigh cholesterol >=240 mg/dLRecommendations of the NCEP Adult Treatment Panel for thefollowing risk-cutoff thresholds for the [place] Americanpulation. Performed By: #### L 500.4050, L501.9985, L501.9520, L500.4100, L506.1001, L100.0100 ####[facility] [address] [place], [address] Cholesterol in HDL [Mass/Vol] 49 mg/dL Normal [facility] Comment on above: Result Comment: Isis onal Cholesterol Education Program (NCEP) guidelines:<40 mg/dL: Low HDL-cholesterol (major risk factor for CHD)>= 60 mg/dL: High HDL-cholesterol (negative risk factor forCHD)HDL-cholesterol is affected by a number of factors, e.g.smoking, exercise, hormones, sex and age. Performed By: #### L 500.4050, L501.9985, L501.9520, L500.4100, L506.1001, L100.0100 ####[facility] [address] [place], [address] Cholesterol in LDL [Mass/Vol] 33 mg/dL Normal [facility] Comment on above: Result Comment: Bord wvyqei=421-270 mg/dL Higher Ptgx=506 mg/dL or greater Performed By: #### L 500.4050, L501.9985, L501.9520, L500.4100, L506.1001, L100.0100 ####[facility] [address] [place], [address] Cholesterol in VLDL [Mass/Vol] 12 mg/dL Normal 5-40 [facility] Comment on above: Performed By: #### L 500.4050, L501.9985, L501.9520, L500.4100, L506.1001, L100.0100 ####[facility] [address] [place], [address] Triglyceride [Mass/Vol] 61 mg/dL Normal [facility] Comment on above: Result Comment: The drugs N-Acetylcysteine and Metamizole may falselydepress this assay.Normal range: <150 mg/dLBorderline High: 150-199 mg/dLHigh: 200-499 mg/dLVery High: >500 mg/dL Performed By: #### L 500.4050, L501.9985, L501.9520, L500.4100, L506.1001, L100.0100 ####[facility] [address] [place], [address] MCV (mean corpuscular volume ) determinationOrdered By: Bernard Nugent on 10-22-2024 MCV (RBC) [Entitic vol] 89.7 fL 80-94 [facility] Mean corpuscular hemoglobin (MCH) determinationOrdered By: Bernard Nugent 10-22-2024 MCH (RBC) [Entitic mass] 31.1 pg 27.0-32.0 [facility] Mean corpuscular hemoglobin concentration (MCHC) determinationOrdered By: Bernard Nugent 10-22-2024 MCHC (RBC) [Mass/Vol] 34.6 g/dL 32-36 [facility] Mean platelet volume determi nationOrdered By: Bernard Nugent on 10-22-2024 Platelet mean volume (Bld) [Entitic vol] 10.6 fL 6.2-12.0 [facility] Monocyte percentageOrdered B y: Bernard Nugent on 10-22-2024 Monocytes/100 WBC (Bld) 9.0 % 0-10 [facility] Neutrophil percentageOrdered By: Bernard Nugent on 10-22-2024 Neutrophils/100 WBC (Bld) 79.8 % High 47-70 [facility] Nucleated red blood cell per centageOrdered By: Bernard Nugent on 10-22-2024 Nucleated RBC/100 WBC (Bld) [Ratio] 0 % 0-5 [facility] Platelet countOrdered By: Vick Nugent on 10-22-2024 Platelets (Bld) [#/Vol] 285 10*3/uL 150-450 [facility] Potassium measurement (mass/ volume)Ordered By: Bernard Nugent on 10-22-2024 Potassium (Unsp spec) [Mass/Vol] 4.4 mmol/L 3.3-5.1 [facility] RBC Auto (Bld) [#/Vol]Ordere d By: Bernard Nugent on 10-22-2024 RBC (Bld) [#/Vol] 4.28 10*6/uL Low 4.6-6.2 [facility] Screening total cholesterol/ high density lipoprotein (HDL) cholesterol ratioOrdered By: Bernard Nugent 10-22-2024 Cholesterol.total/Choles terol in HDL [Mass ratio] 1.92 {ratio} [facility] Serum creatinine measurement (mass/volume)Ordered By: Bernard Nugent 10-22-2024 Creatinine [Mass/Vol] 1.22 mg/dL High 0.70-1.20 [facility] Serum globulin measurementOr dered By: Bernard Nugent 10-22-2024 Globulin (S) [Mass/Vol] 2.7 g/dL 2.2-4.2 [facility] Serum glucose measurement (m ass/volume)Ordered By: Bernard Nugent 10-22-2024 Glucose [Mass/Vol] 137 mg/dL High 70-99 [facility] Serum or plasma alanine erickson otransferase (ALT) measurementOrdered By: Bernard Nugent 10-22-2024 ALT [Catalytic activity/Vol] 18 U/L <47 [facility] Serum or plasma albumin sita urement (mass/volume)Ordered By: Bernard Nugent 10-22-2024 Albumin [Mass/Vol] 3.8 g/dL 3.4-4.8 [facility] Serum or plasma albumin/glob ulin mass ratioOrdered By: Bernard Nugent on 10-22-2024 Albumin/Globulin [Mass ratio] 1.4 {ratio} 0.9-2.4 [facility] Serum or plasma alkaline florencia sphatase measurementOrdered By: Bernard Nugent 10-22-2024 ALP [Catalytic activity/Vol] 174 U/L High 40-129 [facility] Serum or plasma calcium sita urement (mass/volume)Ordered By: Bernard Nugent 10-22-2024 Calcium [Mass/Vol] 8.7 mg/dL 7.6-11.0 [facility] Serum or plasma cholesterol in HDL measurement (mass/volume)Ordered By: Bernard Nugent 10-22-2024 Cholesterol in HDL [Mass/Vol] 49 mg/dL >40 [facility] Comment on above: National Cholesterol Education Program (NCEP) guidelines:<40 mg/dL: Low HDL-cholesterol (major risk factor for CHD)>= 60 mg/dL: High HDL-cholesterol (negative risk factor for CHD)HDL-cholesterol is affected by a number of factors, e.g. smoking, exercise, hormones, sex and age. Serum or plasma cholesterol measurement (mass/volume)Ordered By: Bernard Nugent 10-22-2024 Cholesterol [Mass/Vol] 95 mg/dL <201 [facility] Comment on above: Cholesterol level, D esirable <200 mg/dLBorderline high cholesterol 200-239 mg/dLHigh cholesterol >=240 mg/dLRecommendations of the NCEP Adult Treatment Panel for the following risk-cutoff thresholds for the [place] population. Serum or plasma urea nitroge n measurement (mass/volume)Ordered By: Bernard Nugent 10-22-2024 Urea nitrogen [Mass/Vol] 12 mg/dL 4-19 [facility] Sodium levelOrdered By: Bernard Nugent 10-22-2024 Sodium [Moles/Vol] 132 mmol/L Low 133-145 [facility] TSH DL <= 0.005 mIU/L QnOrde red By: Bernard Nugent 10-22-2024 TSH Qn 2.130 uIU/mL 0.300-4.200 [facility] Thyroid Stim Hormone (TSH)on 10-22-2024 TSH 2.130 uIU/mL Normal 0.300-4.200 [facility] Comment on above: Performed By: #### L 500.4050, L501.9985, L501.9520, L500.4100, L506.1001, L100.0100 ####[facility] [address], [address] Total proteinOrdered By: Bernard Nugent on 10-22-2024 Protein [Mass/Vol] 6.5 g/dL 5.9-8.4 [facility] Triglycerides measurementOrd ered By: Bernard Nugent on 10-22-2024 Triglyceride [Mass/Vol] 61 mg/dL <199 [facility] Comment on above: The drugs N-Acetylcy steine and Metamizole may falsely depress this assay. Normal range: <150 mg/dLBorderline High: 150-199 mg/dLHigh: 200-499 mg/dLVery High: >500 mg/dL Vitamin D,25 Hydroxyon 10-22 Vitamin D 25-OH 20.9 ng/mL Low 30-100 [facility] Comment on above: Result Comment: Mary min D StatusDeficiency: <20 ng/mL (50nmol/L)Insufficiency: 20-30 ng/mL (50-75 nmol/L)Sufficiency: 30-100 ng/mL (75-250 nmol/L)Toxicity: >100 ng/mL (>250 nmol/L) Performed By: #### L 500.4050, L501.9985, L501.9520, L500.4100, L506.1001, L100.0100 ####[facility] [address] [place], [address] White blood cell (WBC) count Ordered By: Bernard Nugent on 10-22-2024 WBC (Bld) [#/Vol] 12.2 10*3/uL High 4.4-11.0 [facility] Absolute lymphocyte countOrd ered By: Bernard Nugent on 07-27-2024 Lymphocytes Auto (Unsp spec) [#/Vol] 0.92 10*3/uL 0.83-4.51 [facility] Absolute neutrophil countOrd ered By: Bernard Nugent on 07-27-2024 Neutrophils (Bld) [#/Vol] 4.5 10*3/uL 2.0-7.7 [facility] Anion gap in Serum or Plasma Ordered By: Bernard Nugent on 07-27-2024 Anion gap [Moles/Vol] 11 mmol/L 5-15 [facility] Automated lymphocyte count a s percentage of total leukocytesOrdered By: Bernard Nugent on 07-27-2024 Lymphocytes/100 WBC Auto (Unsp spec) 14.4 % Low - [facility] BUN/creatinine ratioOrdered By: Bernard Nugent on 07-27-2024 Urea nitrogen/Creatinine [Mass ratio] 11.5 mg/mg 10 [facility] Basophil percentageOrdered B y: Bernard Nugent on 07-27-2024 Basophils/100 WBC (Bld) 0.8 % 0-1 [facility] Bilirubin, totalOrdered By: Bernard Nugent on 07-27-2024 Bilirubin [Mass/Vol] 1.41 mg/dL High 0.00-1.30 [facility] CBC W/Diff, Automatedon 07-18 Absolute Lymph 0.92 X10 3/uL Normal 0.83-4.51 [facility] Comment on above: Performed By: #### L 506.1001, L501.9985, L100.0100, L500.4100, L500.4050, L501.9520 ####[facility] [address] [place], [address] Absolute Neut 4.5 X10 3/uL Normal 2.0-7.7 [facility] Comment on above: Performed By: #### L 506.1001, L501.9985, L100.0100, L500.4100, L500.4050, L501.9520 ####[facility] [address] [place], [address] Basophils/100 WBC (Bld) 0.8 % Normal 0-1 [facility] Comment on above: Performed By: #### L 506.1001, L501.9985, L100.0100, L500.4100, L500.4050, L501.9520 ####[facility] [address] [place], [address] Eosinophils/100 WBC (Bld) 3.3 % Normal 0-5 [facility] Comment on above: Performed By: #### L 506.1001, L501.9985, L100.0100, L500.4100, L500.4050, L501.9520 ####[facility] [address] [place], [address] Erythrocyte distribution width (RBC) [Ratio] 13.0 % Normal 11.6-14.6 [facility] Comment on above: Performed By: #### L 506.1001, L501.9985, L100.0100, L500.4100, L500.4050, L501.9520 ####[facility] [address] [place], [address] Hematocrit (Bld) [Volume fraction] 34.5 % Low 40-54 [facility] Comment on above: Performed By: #### L 506.1001, L501.9985, L100.0100, L500.4100, L500.4050, L501.9520 ####[facility] [address] [place], [address] Hemoglobin (Bld) [Mass/Vol] 12.5 g/dL Low 13.0-16.5 [facility] Comment on above: Performed By: #### L 506.1001, L501.9985, L100.0100, L500.4100, L500.4050, L501.9520 ####[facility] [address] [place], [address] IG% 0.600 Normal 0.0-0.9 [facility] Comment on above: Result Comment: IG% - Immature Granulocytes (promyelocytes, myelocytes andmetamyelocytes) > 1% indicates that a LEFT SHIFT is Present. Performed By: #### L 506.1001, L501.9985, L100.0100, L500.4100, L500.4050, L501.9520 ####[facility] [address] [place], [address] Lymphocytes/100 WBC (Bld) 14.4 % Low 19-41 [facility] Comment on above: Performed By: #### L 506.1001, L501.9985, L100.0100, L500.4100, L500.4050, L501.9520 ####[facility] [address] [place], [address] MCH (RBC) [Entitic mass] 31.9 pg Normal 27.0-32.0 [facility] Comment on above: Performed By: #### L 506.1001, L501.9985, L100.0100, L500.4100, L500.4050, L501.9520 ####[facility] [address] [place], [address] MCHC (RBC) [Mass/Vol] 36.2 g/dL High 32-36 [facility] Comment on above: Performed By: #### L 506.1001, L501.9985, L100.0100, L500.4100, L500.4050, L501.9520 ####[facility] [address] [place], [address] MCV (RBC) [Entitic vol] 88.0 fL Normal 80-94 [facility] Comment on above: Performed By: #### L 506.1001, L501.9985, L100.0100, L500.4100, L500.4050, L501.9520 ####[facility] [address] [place], [address] Monocytes/100 WBC (Bld) 11.0 % High 0-10 [facility] Comment on above: Performed By: #### L 506.1001, L501.9985, L100.0100, L500.4100, L500.4050, L501.9520 ####[facility] [address] [place], [address] Neutrophils/100 WBC (Bld) 69.9 % Normal 47-70 [facility] Comment on above: Performed By: #### L 506.1001, L501.9985, L100.0100, L500.4100, L500.4050, L501.9520 ####[facility] [address] [place], [address] Nucleated RBC (Bld) [#/Vol] 0 10*3/uL Normal 0-5 [facility] Comment on above: Performed By: #### L 506.1001, L501.9985, L100.0100, L500.4100, L500.4050, L501.9520 ####[facility] [address] [place], [address] Platelet mean volume (Bld) [Entitic vol] 10.6 fL Normal 6.2-12.0 [facility] Comment on above: Performed By: #### L 506.1001, L501.9985, L100.0100, L500.4100, L500.4050, L501.9520 ####[facility] [address] [place], [address] Platelets (Bld) [#/Vol] 213 10*3/uL Normal 150-450 [facility] Comment on above: Performed By: #### L 506.1001, L501.9985, L100.0100, L500.4100, L500.4050, L501.9520 ####[facility] [address] [place], [address] RBC (Bld) [#/Vol] 3.92 10*6/uL Low 4.6-6.2 [facility] Comment on above: Performed By: #### L 506.1001, L501.9985, L100.0100, L500.4100, L500.4050, L501.9520 ####[facility] [address] [place], [place], [id number](228) RDW SD 42.2 fl Normal 35.1-43.9 [facility] Comment on above: Performed By: #### L 506.1001, L501.9985, L100.0100, L500.4100, L500.4050, L501.9520 ####[facility] [address] [place], [place], [id number] WBC (Bld) [#/Vol] 6.4 10*3/uL Normal 4.4-11.0 [facility] Comment on above: Performed By: #### L 506.1001, L501.9985, L100.0100, L500.4100, L500.4050, L501.9520 ####[facility] [address] [place], [place], [id number] Calculated very low density lipoprotein (VLDL) cholesterol measurementOrdered By: Bernard Nugent on 07-27-2024 Calculated very low density lipoprotein (VLDL) cholesterol measurement 15 mg/dL -40 [facility] VLDL Cholesterol 15 mg/dL -40 [facility] Carbon dioxide, total [Moles /volume] in Central venous bloodOrdered By: Bernard Nugent on 07-27-2024 CO2 [Moles/Vol] 22.3 mmol/L 21.0-32.0 [facility] Chloride assayOrdered By: Vick Nugent on 07-27-2024 Chloride [Moles/Vol] 93 mmol/L Low 98-108 [facility] Comprehensive Metabolic Prof ilon 07-27-2024 Albumin [Mass/Vol] 3.7 g/dL Normal 3.4-4.8 [facility] Comment on above: Performed By: #### L 506.1001, L501.9985, L100.0100, L500.4100, L500.4050, L501.9520 ####[facility] [address] [place], [address] Albumin/Globulin [Mass ratio] 1.4 {ratio} Normal 0.9-2.4 [facility] Comment on above: Performed By: #### L 506.1001, L501.9985, L100.0100, L500.4100, L500.4050, L501.9520 ####[facility] [address] [place], [address] ALK PHOS 131 U/L High 40-129 [facility] Comment on above: Performed By: #### L 506.1001, L501.9985, L100.0100, L500.4100, L500.4050, L501.9520 ####[facility] [address] [place], [address] ALT [Catalytic activity/Vol] 26 U/L Normal <=46 [facility] Comment on above: Performed By: #### L 506.1001, L501.9985, L100.0100, L500.4100, L500.4050, L501.9520 ####[facility] [address] [place], [address] AST [Catalytic activity/Vol] 35 U/L Normal <=37 [facility] Comment on above: Performed By: #### L 506.1001, L501.9985, L100.0100, L500.4100, L500.4050, L501.9520 ####[facility] [address] [place], [address] Bilirubin [Mass/Vol] 1.41 mg/dL High 0.00-1.30 [facility] Comment on above: Performed By: #### L 506.1001, L501.9985, L100.0100, L500.4100, L500.4050, L501.9520 ####[facility] [address] [place], [address] BUN/CRE 11.5 RATIO Normal 10-20 [facility] Comment on above: Performed By: #### L 506.1001, L501.9985, L100.0100, L500.4100, L500.4050, L501.9520 ####[facility] [address] [place], [address] Calcium [Mass/Vol] 8.4 mg/dL Normal 7.6-11.0 [facility] Comment on above: Performed By: #### L 506.1001, L501.9985, L100.0100, L500.4100, L500.4050, L501.9520 ####[facility] [address] [place], [address] Chloride [Moles/Vol] 93 mmol/L Low 98-108 [facility] Comment on above: Performed By: #### L 506.1001, L501.9985, L100.0100, L500.4100, L500.4050, L501.9520 ####[facility] [address] [place], [address] CO2 [Moles/Vol] 22.3 mmol/L Normal 21.0-32.0 [facility] Comment on above: Performed By: #### L 506.1001, L501.9985, L100.0100, L500.4100, L500.4050, L501.9520 ####[facility] [address] [place], [address] Creatinine [Mass/Vol] 1.23 mg/dL High 0.70-1.20 [facility] Comment on above: Performed By: #### L 506.1001, L501.9985, L100.0100, L500.4100, L500.4050, L501.9520 ####[facility] [address] [place], [address] GAP 11 Normal 5-15 [facility] Comment on above: Performed By: #### L 506.1001, L501.9985, L100.0100, L500.4100, L500.4050, L501.9520 ####[facility] [address] [place], [address] GFR/1.73 sq M.predicted among non-blacks MDRD (S/P/Bld) [Vol rate/Area] 56 mL/min/{1.73_m2} Low >60 [facility] Comment on above: Result Comment: mL/m in/1.73m2 CKD-EPI Creatinine Equation (2020) Performed By: #### L 506.1001, L501.9985, L100.0100, L500.4100, L500.4050, L501.9520 ####[facility] [facility] [address] [place], [address] Globulin (S) [Mass/Vol] 2.6 g/dL Normal 2.2-4.2 [facility] Comment on above: Performed By: #### L 506.1001, L501.9985, L100.0100, L500.4100, L500.4050, L501.9520 ####[facility] [address] [place], [address] Glucose [Mass/Vol] 118 mg/dL High 70-99 [facility] Comment on above: Performed By: #### L 506.1001, L501.9985, L100.0100, L500.4100, L500.4050, L501.9520 ####[facility] [address] [place], [address] Potassium [Moles/Vol] 4.5 mmol/L Normal 3.3-5.1 [facility] Comment on above: Performed By: #### L 506.1001, L501.9985, L100.0100, L500.4100, L500.4050, L501.9520 ####[facility] [address] [place], [address] Sodium [Moles/Vol] 126 mmol/L Low 133-145 [facility] Comment on above: Performed By: #### L 506.1001, L501.9985, L100.0100, L500.4100, L500.4050, L501.9520 ####[facility] [address] [place], [address] T PROT 6.3 g/dL Normal 5.9-8.4 [facility] Comment on above: Performed By: #### L 506.1001, L501.9985, L100.0100, L500.4100, L500.4050, L501.9520 ####[facility] [address] [place], [address] Urea nitrogen [Mass/Vol] 14 mg/dL Normal 4-19 [facility] Comment on above: Performed By: #### L 506.1001, L501.9985, L100.0100, L500.4100, L500.4050, L501.9520 ####[facility] [address] [place], [address] Eosinophil percentageOrdered By: Bernard Tomlinsonok on 07-27-2024 Eosinophils/100 WBC (Bld) 3.3 % 0-5 [facility] Erythrocyte distribution wid th ratioOrdered By: Bernard Nugent on 07-27-2024 Erythrocyte distribution width (RBC) [Ratio] 13.0 % 11.6-14.6 [facility] Erythrocyte distribution wid th standard deviationOrdered By: [facility] on 07-27-2024 Erythrocyte distribution width (RBC) [Entitic vol] 42.2 fL 35.1-43.9 [facility] Erythrocyte distribution width (RBC) [Ratio] 42.2 fl 35.1-43.9 [facility] GFR/1.73 sq M.predicted berna g non-blacks MDRD (S/P/Bld) [Vol rate/Area]Ordered By: Bernard Nugent on 07-27-2024 Estimated GFR (MDRD) Non-Af Amer 56 Low >60 [facility] Comment on above: mL/min/1.73m2 CKD-EP I Creatinine Equation (2020) Glomerular filtration rate ( GFR) estimation/1.73 sq m using serum, plasma, or whole bOrdered By: Bernard Nugent on 07-27-2024 GFR/1.73 sq M.predicted among non-blacks MDRD (S/P/Bld) [Vol rate/Area] 56 mL/min/{1.73_m2} Low >60 [facility] Comment on above: mL/min/1.73m2 CKD-EP I Creatinine Equation (2020) Hematocrit Auto (Bld) [Volum e fraction]Ordered By: Bernard Nugent on 07-27-2024 Hematocrit (Bld) [Volume fraction] 34.5 % Low 40-54 [facility] Hemoglobin A1con 07-27-2024 HbA1c (Bld) [Mass fraction] 6.6 % Normal <=5.6 [facility] Comment on above: Performed By: #### L 506.1001, L501.9985, L100.0100, L500.4100, L500.4050, L501.9520 ####[facility] [address] [place], [place], [id number] Hemoglobin A1c percentageOrd ered By: Bernard Nugent on 07-27-2024 HbA1c (Bld) [Mass fraction] 6.6 % >5.7 [facility] Hemoglobin measurementOrdere d By: Bernard Nugent on 07-27-2024 Hemoglobin (Bld) [Mass/Vol] 12.5 g/dL Low 13.0-16.5 [facility] Immature granulocytes/100 WB C Auto (Bld)Ordered By: Bernard Nugent on 07-27-2024 Immature granulocytes/100 WBC (Bld) 0.600 % 0.0-0.9 [facility] Comment on above: IG% - Immature Granu locytes (promyelocytes, myelocytes and metamyelocytes) > 1% indicates that a LEFT SHIFT is Present. L506.1001on 07-27-2024 Vitamin D 25-OH 21.6 ng/mL Low 30-100 [facility] Comment on above: Result Comment: Mary min D StatusDeficiency: <20 ng/mL (50nmol/L)Insufficiency: 20-30 ng/mL (50-75 nmol/L)Sufficiency: 30-100 ng/mL (75-250 nmol/L)Toxicity: >100 ng/mL (>250 nmol/L) Performed By: #### L 506.1001, L501.9985, L100.0100, L500.4100, L500.4050, L501.9520 ####[facility] [address] [place], [place], [id number] LDL calc ser/plasOrdered By: Bernard Nugent on 07-27-2024 Cholesterol in LDL [Mass/Vol] 22 mg/dL [facility] Comment on above: Zwglpiwvql=437-594 m g/dL & Higher Opov=873 mg/dL or greater LDL Cholesterol, Calculated 22 mg/dL [facility] Comment on above: Nhgfjujqyw=423-113 m g/dL & Higher Gcij=259 mg/dL or greater Laboratory - Chemistry and C hemistry - challengeOrdered By: Bernard Nugent on 07-27-2024 AST [Catalytic activity/Vol] 35 U/L <38 [facility] Lipid Profileon 07-27-2024 CHOL:HDL 1.59 Normal [facility] Comment on above: Performed By: #### L 506.1001, L501.9985, L100.0100, L500.4100, L500.4050, L501.9520 ####[facility] [address] [place], [place], [id number] Cholesterol [Mass/Vol] 101 mg/dL Normal <=200 [facility] Comment on above: Result Comment: Chol esterol level, Desirable <200 mg/dLBorderline high cholesterol 200-239 mg/dLHigh cholesterol >=240 mg/dLRecommendations of the NCEP Adult Treatment Panel for thefollowing risk-cutoff thresholds for the [place] [facility]. Performed By: #### L 506.1001, L501.9985, L100.0100, L500.4100, L500.4050, L501.9520 ####[facility] [address] [place], [address] Cholesterol in HDL [Mass/Vol] 64 mg/dL Normal [facility] Comment on above: Result Comment: Isis onal Cholesterol Education Program (NCEP) guidelines:<40 mg/dL: Low HDL-cholesterol (major risk factor for CHD)>= 60 mg/dL: High HDL-cholesterol (negative risk factor forCHD)HDL-cholesterol is affected by a number of factors, e.g.smoking, exercise, hormones, sex and age. Performed By: #### L 506.1001, L501.9985, L100.0100, L500.4100, L500.4050, L501.9520 ####[facility] [address] [place], [address] Cholesterol in LDL [Mass/Vol] 22 mg/dL Normal [facility] Comment on above: Result Comment: Bord ztmlpb=439-199 mg/dL Higher Pkxa=392 mg/dL or greater Performed By: #### L 506.1001, L501.9985, L100.0100, L500.4100, L500.4050, L501.9520 ####[facility] [address] [place], [address] Cholesterol in VLDL [Mass/Vol] 15 mg/dL Normal 5-40 [facility] Comment on above: Performed By: #### L 506.1001, L501.9985, L100.0100, L500.4100, L500.4050, L501.9520 ####[facility] [address] [place], [address] Triglyceride [Mass/Vol] 75 mg/dL Normal [facility] Comment on above: Result Comment: The drugs N-Acetylcysteine and Metamizole may falselydepress this assay.Normal range: <150 mg/dLBorderline High: 150-199 mg/dLHigh: 200-499 mg/dLVery High: >500 mg/dL Performed By: #### L 506.1001, L501.9985, L100.0100, L500.4100, L500.4050, L501.9520 ####[facility] [address] [place], [address] Lymphocytes Auto (Unsp spec) [#/Vol]Ordered By: Bernard Nugent on 07-27-2024 Lymphocytes (Bld) [#/Vol] 0.92 10*3/uL 0.83-4.51 [facility] Lymphocytes/100 WBC Auto (Un sp spec)Ordered By: Bernard Nugent on 07-27-2024 Lymphocytes/100 WBC (Bld) 14.4 % Low 19-41 [facility] MCV (mean corpuscular volume ) determinationOrdered By: Bernard Nugent on 07-27-2024 MCV (RBC) [Entitic vol] 88.0 fL 80-94 [facility] Mean corpuscular hemoglobin (MCH) determinationOrdered By: Bernard Nugent on 07-27-2024 MCH (RBC) [Entitic mass] 31.9 pg 27.0-32.0 [facility] Mean corpuscular hemoglobin concentration (MCHC) determinationOrdered By: Bernard Nugent on 07-27-2024 MCHC (RBC) [Mass/Vol] 36.2 g/dL High 32-36 [facility] Mean platelet volume determi nationOrdered By: Bernard Nugent on 07-27-2024 Platelet mean volume (Bld) [Entitic vol] 10.6 fL 6.2-12.0 [facility] Monocyte percentageOrdered B y: Bernard Nugent on 07-27-2024 Monocytes/100 WBC (Bld) 11.0 % High 0-10 [facility] Neutrophil percentageOrdered By: Bernard Nugent on 07-27-2024 Neutrophils/100 WBC (Bld) 69.9 % 47-70 [facility] Nucleated red blood cell per centageOrdered By: Bernard Nugent on 07-27-2024 Nucleated RBC/100 WBC (Bld) [Ratio] 0 % 0-5 [facility] Platelet countOrdered By: Vick Nugent on 07-27-2024 Platelets (Bld) [#/Vol] 213 10*3/uL 150-450 [facility] Potassium (Unsp spec) [Mass/ Vol]Ordered By: Bernard Nugent on 07-27-2024 Potassium [Moles/Vol] 4.5 mmol/L 3.3-5.1 [facility] Potassium measurement (mass/ volume)Ordered By: Bernard Nugent on 07-27-2024 Potassium (Unsp spec) [Mass/Vol] 4.5 mmol/L 3.3-5.1 [facility] RBC Auto (Bld) [#/Vol]Ordere d By: Bernard Nugent on 07-27-2024 RBC (Bld) [#/Vol] 3.92 10*6/uL Low 4.6-6.2 [facility] Screening total cholesterol/ high density lipoprotein (HDL) cholesterol ratioOrdered By: Bernard Nugent on 07-27-2024 Cholesterol.total/Choles terol in HDL [Mass ratio] 1.59 {ratio} [facility] Serum creatinine measurement (mass/volume)Ordered By: Bernard Nugent on 07-27-2024 Creatinine [Mass/Vol] 1.23 mg/dL High 0.70-1.20 [facility] Serum globulin measurementOr dered By: Bernard Nugent 07-27-2024 Globulin (S) [Mass/Vol] 2.6 g/dL 2.2-4.2 [facility] Serum glucose measurement (m ass/volume)Ordered By: Bernard Nugent on 07-27-2024 Glucose [Mass/Vol] 118 mg/dL High 70-99 [facility] Serum or plasma alanine erickson otransferase (ALT) measurementOrdered By: Bernard Nugent 07-27-2024 ALT [Catalytic activity/Vol] 26 U/L <47 [facility] Serum or plasma albumin sita urement (mass/volume)Ordered By: Bernard Nugent 07-27-2024 Albumin [Mass/Vol] 3.7 g/dL 3.4-4.8 [facility] Serum or plasma albumin/glob ulin mass ratioOrdered By: Bernard Nugent 07-27-2024 Albumin/Globulin [Mass ratio] 1.4 {ratio} 0.9-2.4 [facility] Serum or plasma alkaline florencia sphatase measurementOrdered By: Bernard Nugent 07-27-2024 ALP [Catalytic activity/Vol] 131 U/L High 40-129 [facility] Serum or plasma calcium sita urement (mass/volume)Ordered By: Bernard Nugent 07-27-2024 Calcium [Mass/Vol] 8.4 mg/dL 7.6-11.0 [facility] Serum or plasma cholesterol in HDL measurement (mass/volume)Ordered By: Bernard Nugent 07-27-2024 Cholesterol in HDL [Mass/Vol] 64 mg/dL >40 [facility] Comment on above: National Cholesterol Education Program (NCEP) guidelines:<40 mg/dL: Low HDL-cholesterol (major risk factor for CHD)>= 60 mg/dL: High HDL-cholesterol (negative risk factor for CHD)HDL-cholesterol is affected by a number of factors, e.g. smoking, exercise, hormones, sex and age. Serum or plasma cholesterol measurement (mass/volume)Ordered By: Bernard Nugent 07-27-2024 Cholesterol [Mass/Vol] 101 mg/dL <201 [facility] Comment on above: Cholesterol level, D esirable <200 mg/dLBorderline high cholesterol 200-239 mg/dLHigh cholesterol >=240 mg/dLRecommendations of the NCEP Adult Treatment Panel for the following risk-cutoff thresholds for the [place] population. Serum or plasma urea nitroge n measurement (mass/volume)Ordered By: Bernard Nugent 07-27-2024 Urea nitrogen [Mass/Vol] 14 mg/dL 4-19 [facility] Sodium levelOrdered By: Bernard Nugent 07-27-2024 Sodium [Moles/Vol] 126 mmol/L Low 133-145 [facility] TSH DL <= 0.005 mIU/L QnOrde red By: Bernard Nugent 07-27-2024 Thyroid Stimulating Hormone (TSH) 2.460 uIU/mL 0.300-4.200 [facility] TSH Qn 2.460 uIU/mL 0.300-4.200 [facility] Thyroid Stim Hormone (TSH)on 07-27-2024 TSH 2.460 uIU/mL Normal 0.300-4.200 [facility] Comment on above: Performed By: #### L 506.1001, L501.9985, L100.0100, L500.4100, L500.4050, L501.9520 ####[facility] [address] [place], [address] Total proteinOrdered By: Bernard Nugent on 07-27-2024 Protein [Mass/Vol] 6.3 g/dL 5.9-8.4 [facility] Triglycerides measurementOrd ered By: Bernard Nugent on 07-27-2024 Triglyceride [Mass/Vol] 75 mg/dL <199 [facility] Comment on above: The drugs N-Acetylcy steine and Metamizole may falsely depress this assay. Normal range: <150 mg/dLBorderline High: 150-199 mg/dLHigh: 200-499 mg/dLVery High: >500 mg/dL Vitamin D, 25-hydroxyOrdered By: Bernard Nugent on 07-27-2024 Vitamin D 25-Hydroxy 21.6 ng/mL Low 30-100 [facility] Comment on above: Vitamin D StatusDefi ciency: <20 ng/mL (50nmol/L)Insufficiency: 20-30 ng/mL (50-75 nmol/L)Sufficiency: 30-100 ng/mL (75-250 nmol/L)Toxicity: >100 ng/mL (>250 nmol/L) White blood cell (WBC) count Ordered By: Bernard Nugent on 07-27-2024 WBC (Bld) [#/Vol] 6.4 10*3/uL 4.4-11.0 [facility] Culture, Anaerobic Any Sourc silke 07-15-2024 CUAN LOWER LEFT LEG Bacteria Spec Anaerobe Cult Susceptibility not normally performed on this organism. Schaalia odontolyticus Normal [facility] Comment on above: Performed By: #### L 8200.1075, M100.2000, M100.3000, M100.4001 ####[facility] [address] [place], [address] Wound Cultureon 07-14-2024 WC Normal [facility] Comment on above: Performed By: #### L 8200.1075, M100.2000, M100.3000, M100.4001 ####[facility] [address] [facility] [place], [address] Gram Stainon 07-12-2024 GS LOWER LEFT LEG Test not performed Normal [facility] Comment on above: Performed By: #### L 8200.1075, M100.2000, M100.3000, M100.4001 ####[facility] [address] [place], [place], [address] Anaerobic cultureOrdered By: Bernard Nugent on 07-10-2024 Bacteria identified Anaer cx Nom (Unsp spec) Schaalia odontolyticus Abnormal [facility] Bacteria identified Anaer cx Nom (Unsp spec)Ordered By: Bernard Nugent on 07-10-2024 Anaerobic Culture Schaalia odontolyticus Abnormal [facility] Anaerobic Culture Schaalia odontolyticus Abnormal [facility] Gram stainOrdered By: Bernard sky on 07-10-2024 Microscopic observation Gram stain Nom (Unsp spec) [facility] Microscopic observation Gram stain Nom (Unsp spec) [facility] Routine wound cultureOrdered By: Bernard Nugent on 07-10-2024 Wound Culture Stenotrophomonas maltophilia Abnormal [facility] Wound Culture Staphylococcus epidermidis#2 Abnormal [facility] Wound Culture Staphylococcus epidermidis Abnormal [facility] Microbial culture, routine Stenotrophomonas maltophilia Abnormal [facility] Microbial culture, routine Staphylococcus epidermidis#2 Abnormal [facility] Microbial culture, routine Staphylococcus epidermidis Abnormal [facility] Wound Culture Stenotrophomonas maltophilia Abnormal [facility] Wound Culture Staphylococcus epidermidis#2 Abnormal [facility] Wound Culture Staphylococcus epidermidis Abnormal [facility] MRSA Wound DNA by PCRon 06-21 MRSA DNA ASSAY Negative Normal Negative [facility] Comment on above: Order Comment: LOWER LEFT LEGLOWER LEFT LEG Performed By: #### L 8200.1075, M100.2000, M100.3000, M100.4001 ####[facility] [address] [place], [address] SA DNA ASSAY Negative Normal Negative [facility] Comment on above: Order Comment: LOWER LEFT LEGLOWER LEFT LEG Performed By: #### L 8200.1075, M100.2000, M100.3000, M100.4001 ####[facility] [address] [place], [address] MRSA detection PCROrdered By : Bernard Nugent on 07-09-2024 Methicillin-Resist S.aureus DNA PCR Negative Negative [facility] S. aureus DNA MELIZA+probe Ql ( Unsp spec)Ordered By: Bernard Nugent on 07-09-2024 Staphylococcus aureus Protein A PCR Negative Negative [facility] Staphylococcus aureus DNA de tection by probe and target amplification methodOrdered By: Bernard Nugent on 07-09-2024 S. aureus DNA MELIZA+probe Ql (Unsp spec) Negative Negative [facility] Emergency Department Summary on 07-03-2024 Emergency Department Summary Normal [facility] Absolute neutrophil countOrd ered By: Bernard Nugent on 04-27-2024 Neutrophils (Bld) [#/Vol] 8.7 10*3/uL High 2.0-7.7 [facility] Albumin to globulin ratioOrd ered By: Bernard Nugent on 04-27-2024 Albumin/Globulin [Mass ratio] 1.0 {ratio} 0.9-2.4 [facility] Basophil percentageOrdered B y: Bernard Nugent on 04-27-2024 Basophils/100 WBC (Bld) 0.5 % 0-1 [facility] Bilirubin Test strip Ql (U)O rdered By: Bernard Nugent on 04-27-2024 Bilirubin Ql (U) Negative Negative [facility] Bilirubin, totalOrdered By: Bernard Nugent on 04-27-2024 Bilirubin [Mass/Vol] 2.90 mg/dL High 0.20-1.00 [facility] Comment on above: For patients on eltr ombopag therapy, use of Dimension [place] TBIL is not recommended. Blood urea nitrogen (BUN)/cr eatinine ratioOrdered By: Bernard Nugent on 12-09-2024 Urea nitrogen/Creatinine [Mass ratio] 9.9 mg/mg Low 10-20 [facility] CBC W/Diff, Automatedon 12-0 9-2023 Absolute Lymph 0.78 X10 3/uL Low 0.83-4.51 [facility] Comment on above: Performed By: #### L 100.0100, L400.0001, L501.9520, L500.4050 ####[facility] [address] [place], [address] Absolute Neut 8.7 X10 3/uL High 2.0-7.7 [facility] Comment on above: Performed By: #### L 100.0100, L400.0001, L501.9520, L500.4050 ####[facility] [address] [place], [address] Basophils/100 WBC (Bld) 0.5 % Normal 0-1 [facility] Comment on above: Performed By: #### L 100.0100, L400.0001, L501.9520, L500.4050 ####[facility] [address] [place], [address] Eosinophils/100 WBC (Bld) 0.7 % Normal 0-5 [facility] Comment on above: Performed By: #### L 100.0100, L400.0001, L501.9520, L500.4050 ####[facility] [address] [place], [address] Erythrocyte distribution width (RBC) [Ratio] 15.3 % High 11.6-14.6 [facility] Comment on above: Performed By: #### L 100.0100, L400.0001, L501.9520, L500.4050 ####[facility] [address] [place], [address] Hematocrit (Bld) [Volume fraction] 40.3 % Normal 40-54 [facility] Comment on above: Performed By: #### L 100.0100, L400.0001, L501.9520, L500.4050 ####[facility] [address] [place], [address] Hemoglobin (Bld) [Mass/Vol] 13.8 g/dL Normal 13.0-16.5 [facility] Comment on above: Performed By: #### L 100.0100, L400.0001, L501.9520, L500.4050 ####[facility] [address] [place], [address] IG% 0.700 Normal 0.0-0.9 [facility] Comment on above: Result Comment: IG% - Immature Granulocytes (promyelocytes, myelocytes andmetamyelocytes) > 1% indicates that a LEFT SHIFT is Present. Performed By: #### L 100.0100, L400.0001, L501.9520, L500.4050 ####[facility] [address] [place], [address] Lymphocytes/100 WBC (Bld) 7.2 % Low 19-41 [facility] Comment on above: Performed By: #### L 100.0100, L400.0001, L501.9520, L500.4050 ####[facility] [address] [place], [address] MCH (RBC) [Entitic mass] 30.9 pg Normal 27.0-32.0 [facility] Comment on above: Performed By: #### L 100.0100, L400.0001, L501.9520, L500.4050 ####[facility] [address] [place], [address] MCHC (RBC) [Mass/Vol] 34.2 g/dL Normal 32-36 [facility] Comment on above: Performed By: #### L 100.0100, L400.0001, L501.9520, L500.4050 ####[facility] [address] [place], [address] MCV (RBC) [Entitic vol] 90.4 fL Normal 80-94 [facility] Comment on above: Performed By: #### L 100.0100, L400.0001, L501.9520, L500.4050 ####[facility] [address] [place], [address] Monocytes/100 WBC (Bld) 10.0 % Normal 0-10 [facility] Comment on above: Performed By: #### L 100.0100, L400.0001, L501.9520, L500.4050 ####[facility] [address] [place], [address] Neutrophils/100 WBC (Bld) 80.9 % High 47-70 [facility] Comment on above: Performed By: #### L 100.0100, L400.0001, L501.9520, L500.4050 ####[facility] [address] [place], [address] Nucleated RBC (Bld) [#/Vol] 0 10*3/uL Normal 0-5 [facility] Comment on above: Performed By: #### L 100.0100, L400.0001, L501.9520, L500.4050 ####[facility] [address] [place], [address] Platelet mean volume (Bld) [Entitic vol] 11.2 fL Normal 6.2-12.0 [facility] Comment on above: Performed By: #### L 100.0100, L400.0001, L501.9520, L500.4050 ####[facility] [address] [place], [address] Platelets (Bld) [#/Vol] 212 10*3/uL Normal 150-450 [facility] Comment on above: Performed By: #### L 100.0100, L400.0001, L501.9520, L500.4050 ####[facility] [address] [place], [address] RBC (Bld) [#/Vol] 4.46 10*6/uL Low 4.6-6.2 [facility] Comment on above: Performed By: #### L 100.0100, L400.0001, L501.9520, L500.4050 ####[facility] [address] [place], [address] RDW SD 50.4 fl High 35.1-43.9 [facility] Comment on above: Performed By: #### L 100.0100, L400.0001, L501.9520, L500.4050 ####[facility] [address] [place], [address] WBC (Bld) [#/Vol] 10.8 10*3/uL Normal 4.4-11.0 [facility] Comment on above: Performed By: #### L 100.0100, L400.0001, L501.9520, L500.4050 ####[facility] [address] [place], [address] Carbon dioxide measurementOr dered By: Bernard Nugent on 04-27-2024 CO2 [Moles/Vol] 27.0 mmol/L 21.0-32.0 [facility] Chloride measurementOrdered By: Bernard Nugent on 04-27-2024 Chloride [Moles/Vol] 101 mmol/L 98-107 [facility] Comprehensive Metabolic Prof ilon 04-27-2024 Albumin [Mass/Vol] 3.5 g/dL Normal 3.2-5.0 [facility] Comment on above: Performed By: #### L 100.0100, L400.0001, L501.9520, L500.4050 ####[facility] [address] [place], [address] Albumin/Globulin [Mass ratio] 1.0 {ratio} Normal 0.9-2.4 [facility] Comment on above: Performed By: #### L 100.0100, L400.0001, L501.9520, L500.4050 ####[facility] [address] [place], [address] ALK P 147 U/L High 45-117 [facility] Comment on above: Performed By: #### L 100.0100, L400.0001, L501.9520, L500.4050 ####[facility] [address] [place], [address] ALT [Catalytic activity/Vol] 30 U/L Normal 16-61 [facility] Comment on above: Performed By: #### L 100.0100, L400.0001, L501.9520, L500.4050 ####[facility] [address] [place], [address] AST [Catalytic activity/Vol] 24 U/L Normal 15-37 [facility] Comment on above: Performed By: #### L 100.0100, L400.0001, L501.9520, L500.4050 ####[facility] [address] [place], [address] Bilirubin [Mass/Vol] 2.90 mg/dL High 0.20-1.00 [facility] Comment on above: Result Comment: For patients on eltrombopag therapy, use of Dimension [place] TBIL is not recommended. Performed By: #### L 100.0100, L400.0001, L501.9520, L500.4050 ####[facility] [address] [place], [address] BUN/CRE 9.9 RATIO Low 10-20 [facility] Comment on above: Performed By: #### L 100.0100, L400.0001, L501.9520, L500.4050 ####[facility] [address] [place], [address] CA,Total 8.4 mg/dL Low 8.5-10.1 [facility] Comment on above: Performed By: #### L 100.0100, L400.0001, L501.9520, L500.4050 ####[facility] [address] [place], [address] Chloride [Moles/Vol] 101 mmol/L Normal 98-107 [facility] Comment on above: Performed By: #### L 100.0100, L400.0001, L501.9520, L500.4050 ####[facility] [address] [place], [address] CO2 [Moles/Vol] 27.0 mmol/L Normal 21.0-32.0 [facility] Comment on above: Performed By: #### L 100.0100, L400.0001, L501.9520, L500.4050 ####[facility] [address] [place], [address] Creatinine [Mass/Vol] 1.41 mg/dL High 0.70-1.30 [facility] Comment on above: Result Comment: The validity of the calculated GFR GFRAA in patients over70 years has not been determined. Clinical correlation isessential. Performed By: #### L 100.0100, L400.0001, L501.9520, L500.4050 ####[facility] [address] [place], [address] EST GFR - AA 61 mL/min Normal >60 [facility] Comment on above: Result Comment: Afri can [place] GFR Calc Performed By: #### L 100.0100, L400.0001, L501.9520, L500.4050 ####[facility] [address] [place], [address] GAP 7 Normal 5-15 [facility] Comment on above: Performed By: #### L 100.0100, L400.0001, L501.9520, L500.4050 ####[facility] [address] [place], [address] GFR/1.73 sq M.predicted among non-blacks MDRD (S/P/Bld) [Vol rate/Area] 50 mL/min/{1.73_m2} Low >60 [facility] Comment on above: Result Comment: Non- GFR Calc Performed By: #### L 100.0100, L400.0001, L501.9520, L500.4050 ####[facility] [address] [place], [address] Globulin (S) [Mass/Vol] 3.6 g/dL Normal 2.2-4.2 [facility] Comment on above: Performed By: #### L 100.0100, L400.0001, L501.9520, L500.4050 ####[facility] [address] [place], [address] Glucose [Mass/Vol] 174 mg/dL High 74-106 [facility] Comment on above: Result Comment: Fast ing Glucose result greater than or equal to 126 mg/dLsuggests DIABETES MELLITUS per A.D.A. criteria. Performed By: #### L 100.0100, L400.0001, L501.9520, L500.4050 ####[facility] [address] [place], [address] Potassium [Moles/Vol] 4.1 mmol/L Normal 3.5-5.1 [facility] Comment on above: Performed By: #### L 100.0100, L400.0001, L501.9520, L500.4050 ####[facility] [address] [place], [address] Sodium [Moles/Vol] 135 mmol/L Low 136-145 [facility] Comment on above: Performed By: #### L 100.0100, L400.0001, L501.9520, L500.4050 ####[facility] [address] [place], [address] T PROT 7.1 g/dL Normal 6.4-8.2 [facility] Comment on above: Performed By: #### L 100.0100, L400.0001, L501.9520, L500.4050 ####[facility] [address] [place], [address] Urea nitrogen [Mass/Vol] 14 mg/dL Normal 7-18 [facility] Comment on above: Performed By: #### L 100.0100, L400.0001, L501.9520, L500.4050 ####[facility] [address] [place], [address] Eosinophil percentageOrdered By: Bernard Nugent on 04-27-2024 Eosinophils/100 WBC (Bld) 0.7 % 0-5 [facility] Epithelial cells.squamous LM Ql (Urine sed)Ordered By: Bernard Nugent on 04-27-2024 Epithelial cells.squamous LM.HPF (Urine sed) [#/Area] 0 /[HPF] 0-5 [facility] Erythrocyte distribution wid th ratioOrdered By: Bernard Nugent on 04-27-2024 Erythrocyte distribution width (RBC) [Ratio] 15.3 % High 11.6-14.6 [facility] Erythrocyte distribution wid th standard deviationOrdered By: Bernrad Nugent on 04-27-2024 Erythrocyte distribution width (RBC) [Entitic vol] 50.4 fL High 35.1-43.9 [facility] Estimated glomerular filtrat ion rate (GFR) AmericanOrdered By: Bernard Nugent on 04-27-2024 Estimated GFR (MDRD) Amer 61 mL/min >60 [facility] Comment on above: GFR Calc Glomerular filtration rate ( GFR) estimationOrdered By: Bernard Nugent on 04-27-2024 Estimated GFR (MDRD) Non-Af Amer 50 mL/min Low >60 [facility] Comment on above: Non- GFR Calc Glucose Ql (U)Ordered By: Vick Nugent on 04-27-2024 Urine Glucose (UA) Normal mg/dl Normal [facility] Glucose measurementOrdered B y: Bernard Nugent on 04-27-2024 Glucose [Mass/Vol] 174 mg/dL High 74-106 [facility] Comment on above: Fasting Glucose resu lt greater than or equal to 126 mg/dL suggests DIABETES MELLITUS per A.D.A. criteria. Hematocrit Auto (Bld) [Volum e fraction]Ordered By: Bernard Nugent on 04-27-2024 Hematocrit (Bld) [Volume fraction] 40.3 % 40-54 [facility] Hemoglobin measurementOrdere d By: Bernard Nugent on 04-27-2024 Hemoglobin (Bld) [Mass/Vol] 13.8 g/dL 13.0-16.5 [facility] Immature granulocytes/100 WB C Auto (Bld)Ordered By: Bernard Nugent on 04-27-2024 Immature granulocytes/100 WBC (Bld) 0.700 % 0.0-0.9 [facility] Comment on above: IG% - Immature Granu locytes (promyelocytes, myelocytes and metamyelocytes) > 1% indicates that a LEFT SHIFT is Present. Ketones Test strip Ql (U)Ord ered By: Bernard Nugent on 04-27-2024 Ketones Ql (U) Negative Negative [facility] Laboratory - Chemistry and C hemistry - challengeOrdered By: Bernard Nugent on 04-27-2024 AST [Catalytic activity/Vol] 24 U/L 15-37 [facility] Lymphocytes Auto (Unsp spec) [#/Vol]Ordered By: Bernard Nugent on 04-27-2024 Lymphocytes (Bld) [#/Vol] 0.78 10*3/uL Low 0.83-4.51 [facility] Lymphocytes/100 WBC Auto (Un sp spec)Ordered By: Bernard Nugent on 04-27-2024 Lymphocytes/100 WBC (Bld) 7.2 % Low 19-41 [facility] MCV (mean corpuscular volume ) determinationOrdered By: Bernard Nugent on 04-27-2024 MCV (RBC) [Entitic vol] 90.4 fL 80-94 [facility] Mean corpuscular hemoglobin (MCH) determinationOrdered By: Bernard Nugent on 04-27-2024 MCH (RBC) [Entitic mass] 30.9 pg 27.0-32.0 [facility] Mean corpuscular hemoglobin concentration (MCHC) determinationOrdered By: Bernard Nugent on 04-27-2024 MCHC (RBC) [Mass/Vol] 34.2 g/dL 32-36 [facility] Mean platelet volume determi nationOrdered By: Bernard Nugent on 04-27-2024 Platelet mean volume (Bld) [Entitic vol] 11.2 fL 6.2-12.0 [facility] Microscopic analysis of urin e for red blood cells (RBC)Ordered By: Bernard Nugent on 04-27-2024 Urine RBC 0-5 SEEN /hpf 0-5 [facility] Monocyte percentageOrdered B y: Bernard Nugent on 04-27-2024 Monocytes/100 WBC (Bld) 10.0 % 0-10 [facility] Mucus LM Ql (Urine sed)Order ed By: Bernard Nugent on 04-27-2024 Mucus Ql (Urine sed) 0 SEEN /hpf [facility] Neutrophil percentageOrdered By: Bernard Nugent on 04-27-2024 Neutrophils/100 WBC (Bld) 80.9 % High 47-70 [facility] Nitrite Test strip Ql (U)Ord ered By: Bernard Nugent on 04-27-2024 Nitrite Ql (U) Negative Negative [facility] Nucleated red blood cell per centageOrdered By: Bernard Nugent on 04-27-2024 Nucleated RBC/100 WBC (Bld) [Ratio] 0 % 0-5 [facility] Platelet countOrdered By: Vick Nugent on 04-27-2024 Platelets (Bld) [#/Vol] 212 10*3/uL 150-450 [facility] Potassium measurementOrdered By: Bernard Nugent on 04-27-2024 Potassium [Moles/Vol] 4.1 mmol/L 3.5-5.1 [facility] Protein Test strip Ql (U)Ord ered By: Bernard Nugent on 04-27-2024 Protein Ql (U) 30 mg/dl High Negative [facility] RBC Auto (Bld) [#/Vol]Ordere d By: Bernard Nugent on 04-27-2024 RBC (Bld) [#/Vol] 4.46 10*6/uL Low 4.6-6.2 [facility] Serum anion gap measurementO rdered By: Bernard Nugent on 04-27-2024 Anion gap [Moles/Vol] 7 mmol/L 5-15 [facility] Serum globulin measurementOr dered By: Bernard Nugent on 04-27-2024 Globulin (S) [Mass/Vol] 3.6 g/dL 2.2-4.2 [facility] Serum or plasma alanine erickson otransferase (ALT) measurementOrdered By: Bernard Nugent on 04-27-2024 ALT [Catalytic activity/Vol] 30 U/L 16-61 [facility] Serum or plasma albumin sita urement (mass/volume)Ordered By: Bernard Nugent on 04-27-2024 Albumin [Mass/Vol] 3.5 g/dL 3.2-5.0 [facility] Serum or plasma alkaline florencia sphatase measurementOrdered By: Bernard Nugent 04-27-2024 ALP [Catalytic activity/Vol] 147 U/L High 45-117 [facility] Serum or plasma calcium sita urement (mass/volume)Ordered By: Bernard Nugent 04-27-2024 Calcium [Mass/Vol] 8.4 mg/dL Low 8.5-10.1 [facility] Serum or plasma creatinine m easurement (mass/volume)Ordered By: Bernard Nugent 04-27-2024 Creatinine [Mass/Vol] 1.41 mg/dL High 0.70-1.30 [facility] Comment on above: The validity of the calculated GFR & GFRAA in patients over 70 years has not been determined. Clinical correlation is essential. Serum or plasma urea nitroge n measurement (mass/volume)Ordered By: Bernard Nugent on 04-27-2024 Urea nitrogen [Mass/Vol] 14 mg/dL 7-18 [facility] Sodium levelOrdered By: Bernard Nugent 04-27-2024 Sodium [Moles/Vol] 135 mmol/L Low 136-145 [facility] TSH QnOrdered By: Bernard Nugent o n 04-27-2024 Thyroid Stimulating Hormone (TSH) 2.010 uIU/mL 0.358-3.740 [facility] Thyroid Stim Hormone (TSH)on 04-27-2024 TSH 2.010 uIU/mL Normal 0.358-3.740 [facility] Comment on above: Performed By: #### L 100.0100, L400.0001, L501.9520, L500.4050 ####[facility] [address] [place], [address] Total proteinOrdered By: Bernard Nugent on 04-27-2024 Protein [Mass/Vol] 7.1 g/dL 6.4-8.2 [facility] Urinalysis, Completeon 04-27 BACTERIA 1+ /hpf Normal None Seen [facility] Comment on above: Order Comment: Urine , Random Performed By: #### L 100.0100, L400.0001, L501.9520, L500.4050 ####[facility] [address] [place], [address] EPI,SQUAMOUS 0-5 SEEN Normal 0-5 [facility] Comment on above: Order Comment: Urine , Random Performed By: #### L 100.0100, L400.0001, L501.9520, L500.4050 ####[facility] [address] [place], [address] RBC 0-5 SEEN Normal 0-5 [facility] Comment on above: Order Comment: Urine , Random Performed By: #### L 100.0100, L400.0001, L501.9520, L500.4050 ####[facility] [address] [place], [address] WBC 0-5 SEEN Normal 0-5 [facility] Comment on above: Order Comment: Urine , Random Performed By: #### L 100.0100, L400.0001, L501.9520, L500.4050 ####[facility] [address] [place], [address] Mucus Ql (Urine sed) 0 SEEN Normal [facility] Comment on above: Order Comment: Urine , Random Performed By: #### L 100.0100, L400.0001, L501.9520, L500.4050 ####[facility] [address] [place], [address] Urine blood detectionOrdered By: Bernard Nugent on 04-27-2024 Urine Occult Blood 10 /ul High Negative [facility] Urine clarityOrdered By: Bernard Nugent on 04-27-2024 Clarity (U) Clear Clear [facility] Urine color determinationOrd ered By: Bernard Nugent on 04-27-2024 Color (U) Yellow Yellow [facility] Urine leukocyte esterase det ection by dipstickOrdered By: Bernard Nugent on 04-27-2024 Leukocyte esterase Test strip Ql (U) Negative Negative [facility] Urine pHOrdered By: Bernard Nugent on 04-27-2024 pH (U) 6.5 [pH] 5.0 - 8.0 [facility] Urine sediment bacteria coun t by microscopy (number/high power field)Ordered By: Bernard Nugent on 04-27-2024 Bacteria LM.HPF (Urine sed) [#/Area] 1 /[HPF] None Seen [facility] Urine specific gravity measu rementOrdered By: Bernard Nugent on 04-27-2024 Specific gravity (U) [Rel density] 1.010 1.002-1.030 [facility] Urobilinogen Ql (U)Ordered B y: Bernard Nugent on 04-27-2024 Urobilinogen (U) [Mass/Vol] 1 mg/dL High Normal [facility] White blood cell (WBC) count Ordered By: Bernard Nugent on 04-27-2024 WBC (Bld) [#/Vol] 10.8 10*3/uL 4.4-11.0 [facility] White blood cell countOrdere d By: Bernard Nugent on 04-27-2024 Urine WBC 0-5 SEEN /hpf 0-5 [facility] 97-HD-Jtibsbh DOrdered By: Osei Nugent on 04-22-2024 Vitamin D 25-Hydroxy 31.0 ng/mL [facility] Comment on above: Vitamin D 25(OH) Sta tus Range Deficiency <20 ng/mL (50nmol/L) Insufficiency 20 - 30 ng/mL (50 - 75 nmol/L) Sufficiency 30 - 100 ng/mL (75 - 250 nmol/L) Toxicity >100 ng/mL (>250 nmol/L) Absolute neutrophil countOrd ered By: Bernard Nugent on 04-22-2024 Neutrophils (Bld) [#/Vol] 6.3 10*3/uL 2.0-7.7 [facility] Albumin to globulin ratioOrd ered By: Bernard Nugent on 04-22-2024 Albumin/Globulin [Mass ratio] 1.0 {ratio} 0.9-2.4 [facility] Basophil percentageOrdered B y: Bernard Raffi on 04-22-2024 Basophils/100 WBC (Bld) 0.6 % 0-1 [facility] Bilirubin, totalOrdered By: Bernard Nugent on 04-22-2024 Bilirubin [Mass/Vol] 2.50 mg/dL High 0.20-1.00 [facility] Comment on above: For patients on eltr ombopag therapy, use of Dimension [place] TBIL is not recommended. Blood urea nitrogen (BUN)/cr eatinine ratioOrdered By: Bernard Raffi on 04-22-2024 Urea nitrogen/Creatinine [Mass ratio] 10.7 mg/mg 10-20 [facility] CBC W/Diff, Automatedon Absolute Lymph 1.01 X10 3/uL Normal 0.83-4.51 [facility] Comment on above: Performed By: #### L 500.4100, L501.9985, L100.0100, L500.4050, L501.9520, L506.1000 ####[facility] [address] [place], [address] Absolute Neut 6.3 X10 3/uL Normal 2.0-7.7 [facility] Comment on above: Performed By: #### L 500.4100, L501.9985, L100.0100, L500.4050, L501.9520, L506.1000 ####[facility] [address] [place], [address] Basophils/100 WBC (Bld) 0.6 % Normal 0-1 [facility] Comment on above: Performed By: #### L 500.4100, L501.9985, L100.0100, L500.4050, L501.9520, L506.1000 ####[facility] [address] [place], [address] Eosinophils/100 WBC (Bld) 1.7 % Normal 0-5 [facility] Comment on above: Performed By: #### L 500.4100, L501.9985, L100.0100, L500.4050, L501.9520, L506.1000 ####[facility] [address] [place], [address] Erythrocyte distribution width (RBC) [Ratio] 15.2 % High 11.6-14.6 [facility] Comment on above: Performed By: #### L 500.4100, L501.9985, L100.0100, L500.4050, L501.9520, L506.1000 ####[facility] [address] [place], [address] Hematocrit (Bld) [Volume fraction] 41.1 % Normal 40-54 [facility] Comment on above: Performed By: #### L 500.4100, L501.9985, L100.0100, L500.4050, L501.9520, L506.1000 ####[facility] [address] [place], [address] Hemoglobin (Bld) [Mass/Vol] 13.8 g/dL Normal 13.0-16.5 [facility] Comment on above: Performed By: #### L 500.4100, L501.9985, L100.0100, L500.4050, L501.9520, L506.1000 ####[facility] [address] [place], [address] IG% 0.800 Normal 0.0-0.9 [facility] Comment on above: Result Comment: IG% - Immature Granulocytes (promyelocytes, myelocytes andmetamyelocytes) > 1% indicates that a LEFT SHIFT is Present. Performed By: #### L 500.4100, L501.9985, L100.0100, L500.4050, L501.9520, L506.1000 ####[facility] [address] [place], [address] Lymphocytes/100 WBC (Bld) 12.1 % Low 19-41 [facility] Comment on above: Performed By: #### L 500.4100, L501.9985, L100.0100, L500.4050, L501.9520, L506.1000 ####[facility] [address] [place], [address] MCH (RBC) [Entitic mass] 30.2 pg Normal 27.0-32.0 [facility] Comment on above: Performed By: #### L 500.4100, L501.9985, L100.0100, L500.4050, L501.9520, L506.1000 ####[facility] [address] [place], [address] MCHC (RBC) [Mass/Vol] 33.6 g/dL Normal 32-36 [facility] Comment on above: Performed By: #### L 500.4100, L501.9985, L100.0100, L500.4050, L501.9520, L506.1000 ####[facility] [address] [place], [address] MCV (RBC) [Entitic vol] 89.9 fL Normal 80-94 [facility] Comment on above: Performed By: #### L 500.4100, L501.9985, L100.0100, L500.4050, L501.9520, L506.1000 ####[facility] [address] [place], [address] Monocytes/100 WBC (Bld) 9.8 % Normal 0-10 [facility] Comment on above: Performed By: #### L 500.4100, L501.9985, L100.0100, L500.4050, L501.9520, L506.1000 ####[facility] [address] [place], [address] Neutrophils/100 WBC (Bld) 75.0 % High 47-70 [facility] Comment on above: Performed By: #### L 500.4100, L501.9985, L100.0100, L500.4050, L501.9520, L506.1000 ####[facility] [address] [place], [address] Nucleated RBC (Bld) [#/Vol] 0 10*3/uL Normal 0-5 [facility] Comment on above: Performed By: #### L 500.4100, L501.9985, L100.0100, L500.4050, L501.9520, L506.1000 ####[facility] [address] [place], [address] Platelet mean volume (Bld) [Entitic vol] 10.7 fL Normal 6.2-12.0 [facility] Comment on above: Performed By: #### L 500.4100, L501.9985, L100.0100, L500.4050, L501.9520, L506.1000 ####[facility] [address] [place], [address] Platelets (Bld) [#/Vol] 195 10*3/uL Normal 150-450 [facility] Comment on above: Performed By: #### L 500.4100, L501.9985, L100.0100, L500.4050, L501.9520, L506.1000 ####[facility] [address] [place], [address] RBC (Bld) [#/Vol] 4.57 10*6/uL Low 4.6-6.2 [facility] Comment on above: Performed By: #### L 500.4100, L501.9985, L100.0100, L500.4050, L501.9520, L506.1000 ####[facility] [address] [place], [address] RDW SD 50.1 fl High 35.1-43.9 [facility] Comment on above: Performed By: #### L 500.4100, L501.9985, L100.0100, L500.4050, L501.9520, L506.1000 ####[facility] [address] [place], [address] WBC (Bld) [#/Vol] 8.4 10*3/uL Normal 4.4-11.0 [facility] Comment on above: Performed By: #### L 500.4100, L501.9985, L100.0100, L500.4050, L501.9520, L506.1000 ####[facility] [address] [place], [address] Carbon dioxide measurementOr dered By: Bernard Nugent on 04-22-2024 CO2 [Moles/Vol] 27.0 mmol/L 21.0-32.0 [facility] Chloride measurementOrdered By: Bernard Nugent on 04-22-2024 Chloride [Moles/Vol] 99 mmol/L 98-107 [facility] Comprehensive Metabolic Prof ilon 04-22-2024 Albumin [Mass/Vol] 3.4 g/dL Normal 3.2-5.0 [facility] Comment on above: Performed By: #### L 500.4100, L501.9985, L100.0100, L500.4050, L501.9520, L506.1000 ####[facility] [address] [place], [address] Albumin/Globulin [Mass ratio] 1.0 {ratio} Normal 0.9-2.4 [facility] Comment on above: Performed By: #### L 500.4100, L501.9985, L100.0100, L500.4050, L501.9520, L506.1000 ####[facility] [address] [place], [address] ALK P 126 U/L High 45-117 [facility] Comment on above: Performed By: #### L 500.4100, L501.9985, L100.0100, L500.4050, L501.9520, L506.1000 ####[facility] [address] [place], [address] ALT [Catalytic activity/Vol] 26 U/L Normal 16-61 [facility] Comment on above: Performed By: #### L 500.4100, L501.9985, L100.0100, L500.4050, L501.9520, L506.1000 ####[facility] [address] [place], [address] AST [Catalytic activity/Vol] 21 U/L Normal 15-37 [facility] Comment on above: Performed By: #### L 500.4100, L501.9985, L100.0100, L500.4050, L501.9520, L506.1000 ####[facility] [address] [place], [address] Bilirubin [Mass/Vol] 2.50 mg/dL High 0.20-1.00 [facility] Comment on above: Result Comment: For patients on eltrombopag therapy, use of Dimension [place] TBIL is not recommended. Performed By: #### L 500.4100, L501.9985, L100.0100, L500.4050, L501.9520, L506.1000 ####[facility] [address] [place], [address] BUN/CRE 10.7 RATIO Normal 10-20 [facility] Comment on above: Performed By: #### L 500.4100, L501.9985, L100.0100, L500.4050, L501.9520, L506.1000 ####[facility] [address] [place], [address] CA,Total 8.4 mg/dL Low 8.5-10.1 [facility] Comment on above: Performed By: #### L 500.4100, L501.9985, L100.0100, L500.4050, L501.9520, L506.1000 ####[facility] [address] [place], [address] Chloride [Moles/Vol] 99 mmol/L Normal 98-107 [facility] Comment on above: Performed By: #### L 500.4100, L501.9985, L100.0100, L500.4050, L501.9520, L506.1000 ####[facility] [address] [place], [address] CO2 [Moles/Vol] 27.0 mmol/L Normal 21.0-32.0 [facility] Comment on above: Performed By: #### L 500.4100, L501.9985, L100.0100, L500.4050, L501.9520, L506.1000 ####[facility] [address] [place], [address] Creatinine [Mass/Vol] 1.40 mg/dL High 0.70-1.30 [facility] Comment on above: Result Comment: The validity of the calculated GFR GFRAA in patients over70 years has not been determined. Clinical correlation isessential. Performed By: #### L 500.4100, L501.9985, L100.0100, L500.4050, L501.9520, L506.1000 ####[facility] [address] [place], [address] EST GFR - AA 61 mL/min Normal >60 [facility] Comment on above: Result Comment: Afri can Turkmen GFR Calc Performed By: #### L 500.4100, L501.9985, L100.0100, L500.4050, L501.9520, L506.1000 ####[facility] [address] [place], [address] GAP 6 Normal 5-15 [facility] Comment on above: Performed By: #### L 500.4100, L501.9985, L100.0100, L500.4050, L501.9520, L506.1000 ####[facility] [address] [place], [address] GFR/1.73 sq M.predicted among non-blacks MDRD (S/P/Bld) [Vol rate/Area] 51 mL/min/{1.73_m2} Low >60 [facility] Comment on above: Result Comment: Non- GFR Calc Performed By: #### L 500.4100, L501.9985, L100.0100, L500.4050, L501.9520, L506.1000 ####[facility] [address] [place], [address] Globulin (S) [Mass/Vol] 3.5 g/dL Normal 2.2-4.2 [facility] Comment on above: Performed By: #### L 500.4100, L501.9985, L100.0100, L500.4050, L501.9520, L506.1000 ####[facility] [address] [place], [address] Glucose [Mass/Vol] 165 mg/dL High 74-106 [facility] Comment on above: Result Comment: Fast ing Glucose result greater than or equal to 126 mg/dLsuggests DIABETES MELLITUS per A.D.A. criteria. Performed By: #### L 500.4100, L501.9985, L100.0100, L500.4050, L501.9520, L506.1000 ####[facility] [address] [place], [address] Potassium [Moles/Vol] 4.6 mmol/L Normal 3.5-5.1 [facility] Comment on above: Performed By: #### L 500.4100, L501.9985, L100.0100, L500.4050, L501.9520, L506.1000 ####[facility] [address] [place], [address] Sodium [Moles/Vol] 133 mmol/L Low 136-145 [facility] Comment on above: Performed By: #### L 500.4100, L501.9985, L100.0100, L500.4050, L501.9520, L506.1000 ####[facility] [address] [place], [address] T PROT 6.9 g/dL Normal 6.4-8.2 [facility] Comment on above: Performed By: #### L 500.4100, L501.9985, L100.0100, L500.4050, L501.9520, L506.1000 ####[facility] [address] [place], [address] Urea nitrogen [Mass/Vol] 15 mg/dL Normal 7-18 [facility] Comment on above: Performed By: #### L 500.4100, L501.9985, L100.0100, L500.4050, L501.9520, L506.1000 ####[facility] [address] [place], [address] Eosinophil percentageOrdered By: Bernard Nugent on 12-04-2024 Eosinophils/100 WBC (Bld) 1.7 % 0-5 [facility] Erythrocyte distribution wid th ratioOrdered By: Bernard Nugent on 04-22-2024 Erythrocyte distribution width (RBC) [Ratio] 15.2 % High 11.6-14.6 [facility] Erythrocyte distribution wid th standard deviationOrdered By: [facility] on 04-[facility]-2024 Erythrocyte distribution width (RBC) [Entitic vol] 50.1 fL High 35.1-43.9 [facility] Estimated glomerular filtrat ion rate (GFR) AmericanOrdered By: Bernard Nugent on 04-22-2024 Estimated GFR (MDRD) Amer 61 mL/min >60 [facility] Comment on above: GFR Calc Glomerular filtration rate ( GFR) estimationOrdered By: Bernard Nugent on 04-22-2024 Estimated GFR (MDRD) Non-Af Amer 51 mL/min Low >60 [facility] Comment on above: Non- GFR Calc Glucose measurementOrdered B y: Bernard Nugent on 04-22-2024 Glucose [Mass/Vol] 165 mg/dL High 74-106 [facility] Comment on above: Fasting Glucose resu lt greater than or equal to 126 mg/dL suggests DIABETES MELLITUS per A.D.A. criteria. Hematocrit Auto (Bld) [Volum e fraction]Ordered By: Bernard Nugent on 04-22-2024 Hematocrit (Bld) [Volume fraction] 41.1 % 40-54 [facility] Hemoglobin A1con 04-22-2024 HbA1c (Bld) [Mass fraction] 5.9 % [facility] 3.8-5.6 [facility] Comment on above: Result Comment: Norm al < 5.7 % Prediabetic 5.7 - 6.4 % Diabetic >or= 6.5 % Please note range changes. Performed By: #### L 500.4100, L501.9985, L100.0100, L500.4050, L501.9520, L506.1000 ####[facility] [address] [place], [address] Hemoglobin A1c percentageOrd ered By: Bernard Nugent on 04-22-2024 HbA1c (Bld) [Mass fraction] 5.9 % High 3.8-5.6 [facility] Comment on above: Normal < 5.7 % Predi abetic 5.7 - 6.4 % Diabetic >or= 6.5 % Please note range changes. Hemoglobin measurementOrdere d By: Bernard Nugent on 04-22-2024 Hemoglobin (Bld) [Mass/Vol] 13.8 g/dL 13.0-16.5 [facility] High density lipoprotein (HD L) measurementOrdered By: Bernard Nugent on 04-22-2024 Cholesterol in HDL [Mass/Vol] 74 mg/dL >40 [facility] Comment on above: The drugs N-Acetylcy steine and Metamizole may falsely depress this assay. Reference Range HDL <40 mg/dL Low HDL Cholesterol HDL >or= 60 mg/dL High HDL Cholesterol Immature granulocytes/100 WB C Auto (Bld)Ordered By: Bernard Nugent on 04-22-2024 Immature granulocytes/100 WBC (Bld) 0.800 % 0.0-0.9 [facility] Comment on above: IG% - Immature Granu locytes (promyelocytes, myelocytes and metamyelocytes) > 1% indicates that a LEFT SHIFT is Present. Laboratory - Chemistry and C hemistry - challengeOrdered By: Bernard Nugent on 04-22-2024 AST [Catalytic activity/Vol] 21 U/L 15-37 [facility] Lipid Profileon 04-22-2024 Cholesterol [Mass/Vol] 127 mg/dL Normal 200 [facility] Comment on above: Result Comment: <200 mg/dL Desirable 200-240 mg/dL Borderline >240 mg/dL High Risk Performed By: #### L 500.4100, L501.9985, L100.0100, L500.4050, L501.9520, L506.1000 ####[facility] [address] [place], [place], [id number] Cholesterol in HDL [Mass/Vol] 74 mg/dL Normal [facility] Comment on above: Result Comment: The drugs N-Acetylcysteine and Metamizole may falselydepress this assay. Reference Range HDL <40 mg/dL Low HDL Cholesterol HDL >or= 60 mg/dL High HDL Cholesterol Performed By: #### L 500.4100, L501.9985, L100.0100, L500.4050, L501.9520, L506.1000 ####[facility] [address] [place], [address] Cholesterol in LDL [Mass/Vol] 40 mg/dL Normal 0-130 [facility] Comment on above: Performed By: #### L 500.4100, L501.9985, L100.0100, L500.4050, L501.9520, L506.1000 ####[facility] [address] [place], [address] Cholesterol in VLDL [Mass/Vol] 13 mg/dL Normal 5-40 [facility] Comment on above: Performed By: #### L 500.4100, L501.9985, L100.0100, L500.4050, L501.9520, L506.1000 ####[facility] [address] [place], [address] Triglyceride [Mass/Vol] 65 mg/dL Normal [facility] Comment on above: Result Comment: The drugs N-Acetylcysteine and Metamizole may falselydepress this assay.Serum Triglycerides Reference Interval Normal <150 mg/dL Borderline high 150 - 199 mg/dL High 200 - 499 mg/dL Very High > or = 500 mg/dL Performed By: #### L 500.4100, L501.9985, L100.0100, L500.4050, L501.9520, L506.1000 ####[facility] [address] [place], [address] Low density lipoprotein (LDL ) cholesterol measurementOrdered By: Bernard Nugent on 04-22-2024 Cholesterol in LDL [Mass/Vol] 40 mg/dL 0-130 [facility] Lymphocytes Auto (Unsp spec) [#/Vol]Ordered By: Bernard Nugent on 04-22-2024 Lymphocytes (Bld) [#/Vol] 1.01 10*3/uL 0.83-4.51 [facility] Lymphocytes/100 WBC Auto (Un sp spec)Ordered By: Bernard Nugent on 04-22-2024 Lymphocytes/100 WBC (Bld) 12.1 % Low 19-41 [facility] MCV (mean corpuscular volume ) determinationOrdered By: Bernard Nugent on 04-22-2024 MCV (RBC) [Entitic vol] 89.9 fL 80-94 [facility] Mean corpuscular hemoglobin (MCH) determinationOrdered By: Bernard Nugent on 04-22-2024 MCH (RBC) [Entitic mass] 30.2 pg 27.0-32.0 [facility] Mean corpuscular hemoglobin concentration (MCHC) determinationOrdered By: Bernard Nugent on 04-22-2024 MCHC (RBC) [Mass/Vol] 33.6 g/dL 32-36 [facility] Mean platelet volume determi nationOrdered By: Bernard Nugent on 04-22-2024 Platelet mean volume (Bld) [Entitic vol] 10.7 fL 6.2-12.0 [facility] Monocyte percentageOrdered B y: Bernard Nugent on 04-22-2024 Monocytes/100 WBC (Bld) 9.8 % 0-10 [facility] Neutrophil percentageOrdered By: Bernard Nugent on 04-22-2024 Neutrophils/100 WBC (Bld) 75.0 % High 47-70 [facility] Nucleated red blood cell per centageOrdered By: Bernard Nugent on 04-22-2024 Nucleated RBC/100 WBC (Bld) [Ratio] 0 % 0-5 [facility] Platelet countOrdered By: Vick Nugent on 04-22-2024 Platelets (Bld) [#/Vol] 195 10*3/uL 150-450 [facility] Potassium measurementOrdered By: Bernard Nugent on 04-22-2024 Potassium [Moles/Vol] 4.6 mmol/L 3.5-5.1 [facility] RBC Auto (Bld) [#/Vol]Ordere d By: Bernard Nugent on 04-22-2024 RBC (Bld) [#/Vol] 4.57 10*6/uL Low 4.6-6.2 [facility] Serum anion gap measurementO rdered By: Bernard Nugent on 04-22-2024 Anion gap [Moles/Vol] 6 mmol/L 5-15 [facility] Serum globulin measurementOr dered By: Bernard Nugent on 04-22-2024 Globulin (S) [Mass/Vol] 3.5 g/dL 2.2-4.2 [facility] Serum or plasma alanine erickson otransferase (ALT) measurementOrdered By: Bernard Nugent 04-22-2024 ALT [Catalytic activity/Vol] 26 U/L 16-61 [facility] Serum or plasma albumin sita urement (mass/volume)Ordered By: Bernard Nugent on 04-22-2024 Albumin [Mass/Vol] 3.4 g/dL 3.2-5.0 [facility] Serum or plasma alkaline florencia sphatase measurementOrdered By: Bernard Nugent 04-22-2024 ALP [Catalytic activity/Vol] 126 U/L High 45-117 [facility] Serum or plasma calcium sita urement (mass/volume)Ordered By: Bernard Nugent 04-22-2024 Calcium [Mass/Vol] 8.4 mg/dL Low 8.5-10.1 [facility] Serum or plasma cholesterol measurement (mass/volume)Ordered By: Bernard Nugent 04-22-2024 Cholesterol [Mass/Vol] 127 mg/dL <200 [facility] Comment on above: <200 mg/dL Desirable 200-240 mg/dL Borderline >240 mg/dL High Risk Serum or plasma creatinine m easurement (mass/volume)Ordered By: Bernard Nugent 04-22-2024 Creatinine [Mass/Vol] 1.40 mg/dL High 0.70-1.30 [facility] Comment on above: The validity of the calculated GFR & GFRAA in patients over 70 years has not been determined. Clinical correlation is essential. Serum or plasma urea nitroge n measurement (mass/volume)Ordered By: Bernard Nugent on 04-22-2024 Urea nitrogen [Mass/Vol] 15 mg/dL 7-18 [facility] Sodium levelOrdered By: Bernard Nugent 04-22-2024 Sodium [Moles/Vol] 133 mmol/L Low 136-145 [facility] TSH QnOrdered By: Bernard Nugent o n 04-22-2024 Thyroid Stimulating Hormone (TSH) 2.610 uIU/mL 0.358-3.740 [facility] Thyroid Stim Hormone (TSH)on 04-22-2024 TSH 2.610 uIU/mL Normal 0.358-3.740 [facility] Comment on above: Performed By: #### L 500.4100, L501.9985, L100.0100, L500.4050, L501.9520, L506.1000 ####[facility] [address] [place], [address] Total proteinOrdered By: Bernard Nugent on 04-22-2024 Protein [Mass/Vol] 6.9 g/dL 6.4-8.2 [facility] Triglycerides measurementOrd ered By: Bernard Nugent on 04-22-2024 Triglyceride [Mass/Vol] 65 mg/dL <199 [facility] Comment on above: The drugs N-Acetylcy steine and Metamizole may falsely depress this assay.Serum Triglycerides Reference Interval Normal <150 mg/dL Borderline high 150 - 199 mg/dL High 200 - 499 mg/dL Very High > or = 500 mg/dL Very low density lipoprotein (VLDL) cholesterol measurementOrdered By: Bernard Nugent on 04-22-2024 VLDL Cholesterol 13 mg/dL 5-40 [facility] Vitamin D,25 Hydroxyon 04-22 Vitamin D 25-OH 31.0 ng/mL Normal [facility] Comment on above: Result Comment: Mary min D 25(OH) Status Range Deficiency <20 ng/mL (50nmol/L) Insufficiency 20 - 30 ng/mL (50 - 75 nmol/L) Sufficiency 30 - 100 ng/mL (75 - 250 nmol/L) Toxicity >100 ng/mL (>250 nmol/L) Performed By: #### L 500.4100, L501.9985, L100.0100, L500.4050, L501.9520, L506.1000 ####[facility] [address] [place], [address] White blood cell (WBC) count Ordered By: Bernard Nugent on 04-22-2024 WBC (Bld) [#/Vol] 8.4 10*3/uL 4.4-11.0 [facility] Cardiology Visit Reporton Cardiology Visit Report Normal [facility] Basic Metabolic Profile (BMP )on 03-09-2024 BUN/CRE 16.9 RATIO Normal 10-20 [facility] Comment on above: Performed By: #### L 500.2500 ####[facility] [address] [place], [address] CA,Total 8.7 mg/dL Normal 8.5-10.1 [facility] Comment on above: Performed By: #### L 500.2500 ####[facility] [address] [place], [address] Chloride [Moles/Vol] 106 mmol/L Normal 98-107 [facility] Comment on above: Performed By: #### L 500.2500 ####[facility] [address] [place], [address] CO2 [Moles/Vol] 22.0 mmol/L Normal 21.0-32.0 [facility] Comment on above: Performed By: #### L 500.2500 ####[facility] [address] [place], [address] Creatinine [Mass/Vol] 1.42 mg/dL High 0.70-1.30 [facility] Comment on above: Result Comment: The validity of the calculated GFR GFRAA in patients over70 years has not been determined. Clinical correlation isessential. Performed By: #### L 500.2500 ####[facility] [address] [place], [address] EST GFR - AA 61 mL/min Normal >60 [facility] Comment on above: Result Comment: Afri can Turkmen GFR Calc Performed By: #### L 500.2500 ####[facility] [address] [place], [address] GAP 5 Normal 5-15 [facility] Comment on above: Performed By: #### L 500.2500 ####[facility] [address] [place], [address] GFR/1.73 sq M.predicted among non-blacks MDRD (S/P/Bld) [Vol rate/Area] 50 mL/min/{1.73_m2} Low >60 [facility] Comment on above: Result Comment: Non- GFR Calc Performed By: #### L 500.2500 ####[facility] [address] [place], [address] Glucose [Mass/Vol] 113 mg/dL High 74-106 [facility] Comment on above: Result Comment: Fast ing Glucose result from 100 to 125 mg/dLsuggests IMPAIRED HOMEOSTASIS per A.D.A. criteria. Performed By: #### L 500.2500 ####[facility] [address] [place], [address] Potassium [Moles/Vol] 4.7 mmol/L Normal 3.5-5.1 [facility] Comment on above: Performed By: #### L 500.2500 ####[facility] [address] [place], [address] Sodium [Moles/Vol] 133 mmol/L Low 136-145 [facility] Comment on above: Performed By: #### L 500.2500 ####[facility] [address] [place], [address] Urea nitrogen [Mass/Vol] 24 mg/dL High 7-18 [facility] Comment on above: Performed By: #### L 500.2500 ####[facility] [address] [place], [address] Basic Metabolic Profile (BMP )on 02-28-2024 BUN/CRE 17.2 RATIO Normal 10-20 [facility] Comment on above: Performed By: #### L 500.2500 ####[facility] [address] [place], [address] CA,Total 8.7 mg/dL Normal 8.5-10.1 [facility] Comment on above: Performed By: #### L 500.2500 ####[facility] [address] [place], [address] Chloride [Moles/Vol] 102 mmol/L Normal 98-107 [facility] Comment on above: Performed By: #### L 500.2500 ####[facility] [address] [place], [address] CO2 [Moles/Vol] 24.0 mmol/L Normal 21.0-32.0 [facility] Comment on above: Performed By: #### L 500.2500 ####[facility] [address] [place], [address] Creatinine [Mass/Vol] 1.34 mg/dL High 0.70-1.30 [facility] Comment on above: Result Comment: The validity of the calculated GFR GFRAA in patients over70 years has not been determined. Clinical correlation isessential. Performed By: #### L 500.2500 ####[facility] [address] [place], [address] EST GFR - AA 65 mL/min Normal >60 [facility] Comment on above: Result Comment: Afri can Turkmen GFR Calc Performed By: #### L 500.2500 ####[facility] [address] [place], [address] GAP 5 Normal 5-15 [facility] Comment on above: Performed By: #### L 500.2500 ####[facility] [address] [place], [address] GFR/1.73 sq M.predicted among non-blacks MDRD (S/P/Bld) [Vol rate/Area] 53 mL/min/{1.73_m2} Low >60 [facility] Comment on above: Result Comment: Non- GFR Calc Performed By: #### L 500.2500 ####[facility] [address] [place], [address] Glucose [Mass/Vol] 104 mg/dL Normal 74-106 [facility] Comment on above: Result Comment: Fast ing Glucose result from 100 to 125 mg/dLsuggests IMPAIRED HOMEOSTASIS per A.D.A. criteria. Performed By: #### L 500.2500 ####[facility] [address] [place], [address] Potassium [Moles/Vol] 4.3 mmol/L Normal 3.5-5.1 [facility] Comment on above: Performed By: #### L 500.2500 ####[facility] [address] [place], [address] Sodium [Moles/Vol] 132 mmol/L Low 136-145 [facility] Comment on above: Performed By: #### L 500.2500 ####[facility] [address] [place], [address] Urea nitrogen [Mass/Vol] 23 mg/dL High 7-18 [facility] Comment on above: Performed By: #### L 500.2500 ####[facility] [address] [place], [address] Basic Metabolic Profile (BMP )on 02-21-2024 BUN/CRE 9.0 RATIO Low 10-20 [facility] Comment on above: Performed By: #### L 501.7400, L501.5500, L501.7300, L500.2500 ####[facility] [address] [place], [address] CA,Total 8.5 mg/dL Normal 8.5-10.1 [facility] Comment on above: Performed By: #### L 501.7400, L501.5500, L501.7300, L500.2500 ####[facility] [address] [place], [address] Chloride [Moles/Vol] 96 mmol/L Low 98-107 [facility] Comment on above: Performed By: #### L 501.7400, L501.5500, L501.7300, L500.2500 ####[facility] [address] [place], [address] CO2 [Moles/Vol] 28.0 mmol/L Normal 21.0-32.0 [facility] Comment on above: Performed By: #### L 501.7400, L501.5500, L501.7300, L500.2500 ####[facility] [address] [place], [address] Creatinine [Mass/Vol] 1.34 mg/dL High 0.70-1.30 [facility] Comment on above: Result Comment: The validity of the calculated GFR GFRAA in patients over70 years has not been determined. Clinical correlation isessential. Performed By: #### L 501.7400, L501.5500, L501.7300, L500.2500 ####[facility] [address] [place], [address] EST GFR - AA 65 mL/min Normal >60 [facility] Comment on above: Result Comment: Afri can Turkmen GFR Calc Performed By: #### L 501.7400, L501.5500, L501.7300, L500.2500 ####[facility] [address] [place], [address] GAP 4 Low 5-15 [facility] Comment on above: Performed By: #### L 501.7400, L501.5500, L501.7300, L500.2500 ####[facility] [address] [place], [address] GFR/1.73 sq M.predicted among non-blacks MDRD (S/P/Bld) [Vol rate/Area] 53 mL/min/{1.73_m2} Low >60 [facility] Comment on above: Result Comment: Non- GFR Calc Performed By: #### L 501.7400, L501.5500, L501.7300, L500.2500 ####[facility] [address] [place], [address] Glucose [Mass/Vol] 173 mg/dL High 74-106 [facility] Comment on above: Result Comment: Fast ing Glucose result greater than or equal to 126 mg/dLsuggests DIABETES MELLITUS per A.D.A. criteria. Performed By: #### L 501.7400, L501.5500, L501.7300, L500.2500 ####[facility] [address] [place], [address] Potassium [Moles/Vol] 4.2 mmol/L Normal 3.5-5.1 [facility] Comment on above: Performed By: #### L 501.7400, L501.5500, L501.7300, L500.2500 ####[facility] [address] [place], [address] Sodium [Moles/Vol] 128 mmol/L Low 136-145 [facility] Comment on above: Performed By: #### L 501.7400, L501.5500, L501.7300, L500.2500 ####[facility] [address] [place], [address] Urea nitrogen [Mass/Vol] 12 mg/dL Normal 7-18 [facility] Comment on above: Performed By: #### L 501.7400, L501.5500, L501.7300, L500.2500 ####[facility] [address] [place], [address] Osmolality, Serumon 02-21-20 24 OSMOLALITY,SER 272 mOsm/KG Low 280-301 [facility] Comment on above: Performed By: #### L 501.7400, L501.5500, L501.7300, L500.2500 ####[facility] [address] [place], [address] Osmolality, Urineon 02-21-20 24 OSMOLALITY,UR 363 mOsm/KG Normal [facility] Comment on above: Result Comment: Norm al Urine Reference Ranges Random: 50 - 1200 mOsm/kg H20 depending on fluid intake Random: >850 mOsm/kg after 12 hour fluid restriction 24 hour: 300 - 900 mOsm/kg H2O Performed By: #### L 501.7400, L501.5500, L501.7300, L500.2500 ####[facility] [address] [place], [address] Urine Sodiumon 02-21-2024 Sodium (U) [Moles/Vol] 56 mmol/L Normal Not Establ. [facility] Comment on above: Performed By: #### L 501.7400, L501.5500, L501.7300, L500.2500 ####[facility] [address] [place], [address] Abd Inc Decub and/or Erecton 02-20-2024 Abd Inc Decub and/or Erect Normal [facility] CBC W/Diff, Automatedon 10-0 Absolute Lymph 0.70 X10 3/uL Low 0.83-4.51 [facility] Comment on above: Performed By: #### L 100.0100, L400.0001, L500.4050 ####[facility] [address] [place], [address] Absolute Neut 6.3 X10 3/uL Normal 2.0-7.7 [facility] Comment on above: Performed By: #### L 100.0100, L400.0001, L500.4050 ####[facility] [address] [place], [address] Basophils/100 WBC (Bld) 0.5 % Normal 0-1 [facility] Comment on above: Performed By: #### L 100.0100, L400.0001, L500.4050 ####[facility] [address] [place], [address] Eosinophils/100 WBC (Bld) 0.3 % Normal 0-5 [facility] Comment on above: Performed By: #### L 100.0100, L400.0001, L500.4050 ####[facility] [address] [place], [address] Erythrocyte distribution width (RBC) [Ratio] 13.4 % Normal 11.6-14.6 [facility] Comment on above: Performed By: #### L 100.0100, L400.0001, L500.4050 ####[facility] [address] [place], [address] Hematocrit (Bld) [Volume fraction] 39.5 % Low 40-54 [facility] Comment on above: Performed By: #### L 100.0100, L400.0001, L500.4050 ####[facility] [address] [place], [address] Hemoglobin (Bld) [Mass/Vol] 13.4 g/dL Normal 13.0-16.5 [facility] Comment on above: Performed By: #### L 100.0100, L400.0001, L500.4050 ####[facility] [address] [place], [address] IG% 0.500 Normal 0.0-0.9 [facility] Comment on above: Result Comment: IG% - Immature Granulocytes (promyelocytes, myelocytes andmetamyelocytes) > 1% indicates that a LEFT SHIFT is Present. Performed By: #### L 100.0100, L400.0001, L500.4050 ####[facility] [address] [place], [address] Lymphocytes/100 WBC (Bld) 8.9 % Low 19-41 [facility] Comment on above: Performed By: #### L 100.0100, L400.0001, L500.4050 ####[facility] [address] [place], [address] MCH (RBC) [Entitic mass] 29.0 pg Normal 27.0-32.0 [facility] Comment on above: Performed By: #### L 100.0100, L400.0001, L500.4050 ####[facility] [address] [place], [address] MCHC (RBC) [Mass/Vol] 33.9 g/dL Normal 32-36 [facility] Comment on above: Performed By: #### L 100.0100, L400.0001, L500.4050 ####[facility] [address] [place], [address] MCV (RBC) [Entitic vol] 85.5 fL Normal 80-94 [facility] Comment on above: Performed By: #### L 100.0100, L400.0001, L500.4050 ####[facility] [address] [place], [address] Monocytes/100 WBC (Bld) 10.5 % High 0-10 [facility] Comment on above: Performed By: #### L 100.0100, L400.0001, L500.4050 ####[facility] [address] [place], [address] Neutrophils/100 WBC (Bld) 79.3 % High 47-70 [facility] Comment on above: Performed By: #### L 100.0100, L400.0001, L500.4050 ####[facility] [address] [place], [address] Nucleated RBC (Bld) [#/Vol] 0 10*3/uL Normal 0-5 [facility] Comment on above: Performed By: #### L 100.0100, L400.0001, L500.4050 ####[facility] [address] [place], [address] Platelet mean volume (Bld) [Entitic vol] 11.0 fL Normal 6.2-12.0 [facility] Comment on above: Performed By: #### L 100.0100, L400.0001, L500.4050 ####[facility] [address] [place], [address] Platelets (Bld) [#/Vol] 196 10*3/uL Normal 150-450 [facility] Comment on above: Performed By: #### L 100.0100, L400.0001, L500.4050 ####[facility] [address] [place], [address] RBC (Bld) [#/Vol] 4.62 10*6/uL Normal 4.6-6.2 [facility] Comment on above: Performed By: #### L 100.0100, L400.0001, L500.4050 ####[facility] [address] [place], [address] RDW SD 41.8 fl Normal 35.1-43.9 [facility] Comment on above: Performed By: #### L 100.0100, L400.0001, L500.4050 ####[facility] [address] [place], [address] WBC (Bld) [#/Vol] 7.9 10*3/uL Normal 4.4-11.0 [facility] Comment on above: Performed By: #### L 100.0100, L400.0001, L500.4050 ####[facility] [address] [place], [address] Comprehensive Metabolic Prof ilon 02-20-2024 Albumin [Mass/Vol] 3.5 g/dL Normal 3.2-5.0 [facility] Comment on above: Performed By: #### L 100.0100, L400.0001, L500.4050 ####[facility] [address] [place], [address] Albumin/Globulin [Mass ratio] 1.0 {ratio} Normal 0.9-2.4 [facility] Comment on above: Performed By: #### L 100.0100, L400.0001, L500.4050 ####[facility] [address] [place], [address] ALK P 103 U/L Normal 45-117 [facility] Comment on above: Performed By: #### L 100.0100, L400.0001, L500.4050 ####[facility] [address] [place], [address] ALT [Catalytic activity/Vol] 26 U/L Normal 16-61 [facility] Comment on above: Performed By: #### L 100.0100, L400.0001, L500.4050 ####[facility] [address] [place], [address] AST [Catalytic activity/Vol] 22 U/L Normal 15-37 [facility] Comment on above: Performed By: #### L 100.0100, L400.0001, L500.4050 ####[facility] [address] [place], [address] Bilirubin [Mass/Vol] 3.00 mg/dL High 0.20-1.00 [facility] Comment on above: Result Comment: For patients on eltrombopag therapy, use of Dimension [place] TBIL is not recommended. Performed By: #### L 100.0100, L400.0001, L500.4050 ####[facility] [address] [place], [address] BUN/CRE 9.3 RATIO Low 10-20 [facility] Comment on above: Performed By: #### L 100.0100, L400.0001, L500.4050 ####[facility] [address] [place], [address] CA,Total 8.7 mg/dL Normal 8.5-10.1 [facility] Comment on above: Performed By: #### L 100.0100, L400.0001, L500.4050 ####[facility] [address] [place], [address] Chloride [Moles/Vol] 93 mmol/L Low 98-107 [facility] Comment on above: Performed By: #### L 100.0100, L400.0001, L500.4050 ####[facility] [address] [place], [address] CO2 [Moles/Vol] 28.0 mmol/L Normal 21.0-32.0 [facility] Comment on above: Performed By: #### L 100.0100, L400.0001, L500.4050 ####[facility] [address] [place], [address] Creatinine [Mass/Vol] 1.29 mg/dL Normal 0.70-1.30 [facility] Comment on above: Result Comment: The validity of the calculated GFR GFRAA in patients over70 years has not been determined. Clinical correlation isessential. Performed By: #### L 100.0100, L400.0001, L500.4050 ####[facility] [address] [place], [address] EST GFR - AA 68 mL/min Normal >60 [facility] Comment on above: Result Comment: Afri can [place] GFR Calc Performed By: #### L 100.0100, L400.0001, L500.4050 ####[facility] [address] [place], [address] GAP 5 Normal 5-15 [facility] Comment on above: Performed By: #### L 100.0100, L400.0001, L500.4050 ####[facility] [address] [place], [address] GFR/1.73 sq M.predicted among non-blacks MDRD (S/P/Bld) [Vol rate/Area] 56 mL/min/{1.73_m2} Low >60 [facility] Comment on above: Result Comment: Non- GFR Calc Performed By: #### L 100.0100, L400.0001, L500.4050 ####[facility] [address] [place], [address] Globulin (S) [Mass/Vol] 3.4 g/dL Normal 2.2-4.2 [facility] Comment on above: Performed By: #### L 100.0100, L400.0001, L500.4050 ####[facility] [address] [place], [address] Glucose [Mass/Vol] 162 mg/dL High 74-106 [facility] Comment on above: Result Comment: Fast ing Glucose result greater than or equal to 126 mg/dLsuggests DIABETES MELLITUS per A.D.A. criteria. Performed By: #### L 100.0100, L400.0001, L500.4050 ####[facility] [address] [place], [address] Potassium [Moles/Vol] 4.3 mmol/L Normal 3.5-5.1 [facility] Comment on above: Performed By: #### L 100.0100, L400.0001, L500.4050 ####[facility] [address] [place], [address] Sodium [Moles/Vol] 126 mmol/L Low 136-145 [facility] Comment on above: Performed By: #### L 100.0100, L400.0001, L500.4050 ####[facility] [address] [place], [address] T PROT 6.9 g/dL Normal 6.4-8.2 [facility] Comment on above: Performed By: #### L 100.0100, L400.0001, L500.4050 ####[facility] [address] [place], [address] Urea nitrogen [Mass/Vol] 12 mg/dL Normal 7-18 [facility] Comment on above: Performed By: #### L 100.0100, L400.0001, L500.4050 ####[facility] [address] [place], [address] Urinalysis, Completeon 02-19 RBC 5-10 SEEN Normal 0-5 [facility] Comment on above: Order Comment: Urine , Random Performed By: #### L 100.0100, L400.0001, L500.4050 ####[facility] [address] [place], [address] BILIRUBIN URINE Negative Normal Negative [facility] Comment on above: Order Comment: Urine , Random Performed By: #### L 100.0100, L400.0001, L500.4050 ####[facility] [address] [place], [address] Clarity (U) Clear Normal Clear [facility] Comment on above: Order Comment: Urine , Random Performed By: #### L 100.0100, L400.0001, L500.4050 ####[facility] [address] [place], [address] Color (U) Straw Normal Yellow [facility] Comment on above: Order Comment: Urine , Random Performed By: #### L 100.0100, L400.0001, L500.4050 ####[facility] [address] [place], [address] GLUCOSE, UR Normal Normal Normal [facility] Comment on above: Order Comment: Urine , Random Performed By: #### L 100.0100, L400.0001, L500.4050 ####[facility] [address] [place], [address] KETONE UR Negative Normal Negative [facility] Comment on above: Order Comment: Urine , Random Performed By: #### L 100.0100, L400.0001, L500.4050 ####[facility] [address] [place], [address] LEUK ESTERASE Negative Normal Negative [facility] Comment on above: Order Comment: Urine , Random Performed By: #### L 100.0100, L400.0001, L500.4050 ####[facility] [address] [place], [address] Nitrite Ql (U) Negative Normal Negative [facility] Comment on above: Order Comment: Urine , Random Performed By: #### L 100.0100, L400.0001, L500.4050 ####[facility] [address] [place], [address] OCCULT BLOOD-UR 10 /ul Abnormal Negative [facility] Comment on above: Order Comment: Urine , Random Performed By: #### L 100.0100, L400.0001, L500.4050 ####[facility] [address] [place], [address] pH UR 7.0 Normal 5.0 - 8.0 [facility] Comment on above: Order Comment: Urine , Random Performed By: #### L 100.0100, L400.0001, L500.4050 ####[facility] [address] [place], [address] PROT DIPSTX 30 mg/dl Abnormal Negative [facility] Comment on above: Order Comment: Urine , Random Performed By: #### L 100.0100, L400.0001, L500.4050 ####[facility] [address] [place], [address] SP.GR. DIPSTX 1.005 Normal 1.002-1.030 [facility] Comment on above: Order Comment: Urine , Random Performed By: #### L 100.0100, L400.0001, L500.4050 ####[facility] [address] [place], [address] UROBILI Normal Normal Normal [facility] Comment on above: Order Comment: Urine , Random Performed By: #### L 100.0100, L400.0001, L500.4050 ####[facility] [address] [place], [address] BACTERIA 0 SEEN Normal None Seen [facility] Comment on above: Order Comment: Urine , Random Performed By: #### L 100.0100, L400.0001, L500.4050 ####[facility] [address] [place], [address] EPI,SQUAMOUS 0 SEEN Normal 0-5 [facility] Comment on above: Order Comment: Urine , Random Performed By: #### L 100.0100, L400.0001, L500.4050 ####[facility] [address] [place], [address] Mucus Ql (Urine sed) 0 SEEN Normal [facility] Comment on above: Order Comment: Urine , Random Performed By: #### L 100.0100, L400.0001, L500.4050 ####[facility] [address] [place], [address] WBC 0 SEEN Normal 0-5 [facility] Comment on above: Order Comment: Urine , Random Performed By: #### L 100.0100, L400.0001, L500.4050 ####[facility] [address] [place], [address] CBC W/Diff, Automatedon 09-0 Absolute Lymph 1.05 X10 3/uL Normal 0.83-4.51 [facility] Comment on above: Performed By: #### L 500.4050, L100.0100, L501.9520, L506.1000, L501.9985, L500.4100 ####[facility] [address] [place], [address] Absolute Neut 5.6 X10 3/uL Normal 2.0-7.7 [facility] Comment on above: Performed By: #### L 500.4050, L100.0100, L501.9520, L506.1000, L501.9985, L500.4100 ####[facility] [address] [place], [address] Basophils/100 WBC (Bld) 0.7 % Normal 0-1 [facility] Comment on above: Performed By: #### L 500.4050, L100.0100, L501.9520, L506.1000, L501.9985, L500.4100 ####[facility] [address] [place], [address] Eosinophils/100 WBC (Bld) 4.7 % Normal 0-5 [facility] Comment on above: Performed By: #### L 500.4050, L100.0100, L501.9520, L506.1000, L501.9985, L500.4100 ####[facility] [address] [place], [address] Erythrocyte distribution width (RBC) [Ratio] 12.9 % Normal 11.6-14.6 [facility] Comment on above: Performed By: #### L 500.4050, L100.0100, L501.9520, L506.1000, L501.9985, L500.4100 ####[facility] [address] [place], [address] Hematocrit (Bld) [Volume fraction] 40.8 % Normal 40-54 [facility] Comment on above: Performed By: #### L 500.4050, L100.0100, L501.9520, L506.1000, L501.9985, L500.4100 ####[facility] [address] [place], [address] Hemoglobin (Bld) [Mass/Vol] 13.6 g/dL Normal 13.0-16.5 [facility] Comment on above: Performed By: #### L 500.4050, L100.0100, L501.9520, L506.1000, L501.9985, L500.4100 ####[facility] [address] [place], [address] IG% 0.600 Normal 0.0-0.9 [facility] Comment on above: Result Comment: IG% - Immature Granulocytes (promyelocytes, myelocytes andmetamyelocytes) > 1% indicates that a LEFT SHIFT is Present. Performed By: #### L 500.4050, L100.0100, L501.9520, L506.1000, L501.9985, L500.4100 ####[facility] [address] [place], [address] Lymphocytes/100 WBC (Bld) 13.1 % Low 19-41 [facility] Comment on above: Performed By: #### L 500.4050, L100.0100, L501.9520, L506.1000, L501.9985, L500.4100 ####[facility] [address] [place], [address] MCH (RBC) [Entitic mass] 29.4 pg Normal 27.0-32.0 [facility] Comment on above: Performed By: #### L 500.4050, L100.0100, L501.9520, L506.1000, L501.9985, L500.4100 ####[facility] [address] [place], [address] MCHC (RBC) [Mass/Vol] 33.3 g/dL Normal 32-36 [facility] Comment on above: Performed By: #### L 500.4050, L100.0100, L501.9520, L506.1000, L501.9985, L500.4100 ####[facility] [address] [place], [address] MCV (RBC) [Entitic vol] 88.3 fL Normal 80-94 [facility] Comment on above: Performed By: #### L 500.4050, L100.0100, L501.9520, L506.1000, L501.9985, L500.4100 ####[facility] [address] [place], [address] Monocytes/100 WBC (Bld) 11.3 % High 0-10 [facility] Comment on above: Performed By: #### L 500.4050, L100.0100, L501.9520, L506.1000, L501.9985, L500.4100 ####[facility] [address] [place], [address] Neutrophils/100 WBC (Bld) 69.6 % Normal 47-70 [facility] Comment on above: Performed By: #### L 500.4050, L100.0100, L501.9520, L506.1000, L501.9985, L500.4100 ####[facility] [address] [place], [address] Nucleated RBC (Bld) [#/Vol] 0 10*3/uL Normal 0-5 [facility] Comment on above: Performed By: #### L 500.4050, L100.0100, L501.9520, L506.1000, L501.9985, L500.4100 ####[facility] [address] [place], [address] Platelet mean volume (Bld) [Entitic vol] 10.7 fL Normal 6.2-12.0 [facility] Comment on above: Performed By: #### L 500.4050, L100.0100, L501.9520, L506.1000, L501.9985, L500.4100 ####[facility] [address] [place], [address] Platelets (Bld) [#/Vol] 171 10*3/uL Normal 150-450 [facility] Comment on above: Performed By: #### L 500.4050, L100.0100, L501.9520, L506.1000, L501.9985, L500.4100 ####[facility] [address] [place], [address] RBC (Bld) [#/Vol] 4.62 10*6/uL Normal 4.6-6.2 [facility] Comment on above: Performed By: #### L 500.4050, L100.0100, L501.9520, L506.1000, L501.9985, L500.4100 ####[facility] [address] [place], [address] RDW SD 41.4 fl Normal 35.1-43.9 [facility] Comment on above: Performed By: #### L 500.4050, L100.0100, L501.9520, L506.1000, L501.9985, L500.4100 ####[facility] [address] [place], [address] WBC (Bld) [#/Vol] 8.0 10*3/uL Normal 4.4-11.0 [facility] Comment on above: Performed By: #### L 500.4050, L100.0100, L501.9520, L506.1000, L501.9985, L500.4100 ####[facility] [address] [place], [address] Comprehensive Metabolic Prof ilon 01-24-2024 Albumin [Mass/Vol] 3.3 g/dL Normal 3.2-5.0 [facility] Comment on above: Performed By: #### L 500.4050, L100.0100, L501.9520, L506.1000, L501.9985, L500.4100 ####[facility] [address] [place], [address] Albumin/Globulin [Mass ratio] 0.9 {ratio} Normal 0.9-2.4 [facility] Comment on above: Performed By: #### L 500.4050, L100.0100, L501.9520, L506.1000, L501.9985, L500.4100 ####[facility] [address] [place], [address] ALK P 136 U/L High 45-117 [facility] Comment on above: Performed By: #### L 500.4050, L100.0100, L501.9520, L506.1000, L501.9985, L500.4100 ####[facility] [address] [place], [address] ALT [Catalytic activity/Vol] 22 U/L Normal 16-61 [facility] Comment on above: Performed By: #### L 500.4050, L100.0100, L501.9520, L506.1000, L501.9985, L500.4100 ####[facility] [address] [place], [address] AST [Catalytic activity/Vol] 19 U/L Normal 15-37 [facility] Comment on above: Result Comment: Slig ht Hemolysis, Result may be falsely increased. Performed By: #### L 500.4050, L100.0100, L501.9520, L506.1000, L501.9985, L500.4100 ####[facility] [address] [place], [address] Bilirubin [Mass/Vol] 1.50 mg/dL High 0.20-1.00 [facility] Comment on above: Result Comment: For patients on eltrombopag therapy, use of Dimension [place] TBIL is not recommended. Performed By: #### L 500.4050, L100.0100, L501.9520, L506.1000, L501.9985, L500.4100 ####[facility] [address] [place], [address] BUN/CRE 10.2 RATIO Normal 10-20 [facility] Comment on above: Performed By: #### L 500.4050, L100.0100, L501.9520, L506.1000, L501.9985, L500.4100 ####[facility] [address] [place], [address] CA,Total 8.6 mg/dL Normal 8.5-10.1 [facility] Comment on above: Performed By: #### L 500.4050, L100.0100, L501.9520, L506.1000, L501.9985, L500.4100 ####[facility] [address] [place], [address] Chloride [Moles/Vol] 98 mmol/L Normal 98-107 [facility] Comment on above: Performed By: #### L 500.4050, L100.0100, L501.9520, L506.1000, L501.9985, L500.4100 ####[facility] [address] [place], [address] CO2 [Moles/Vol] 27.0 mmol/L Normal 21.0-32.0 [facility] Comment on above: Performed By: #### L 500.4050, L100.0100, L501.9520, L506.1000, L501.9985, L500.4100 ####[facility] [address] [place], [address] Creatinine [Mass/Vol] 1.67 mg/dL High 0.70-1.30 [facility] Comment on above: Result Comment: The validity of the calculated GFR GFRAA in patients over70 years has not been determined. Clinical correlation isessential. Performed By: #### L 500.4050, L100.0100, L501.9520, L506.1000, L501.9985, L500.4100 ####[facility] [address] [place], [address] EST GFR - AA 50 mL/min Low >60 [facility] Comment on above: Result Comment: Afri can [place] GFR Calc Performed By: #### L 500.4050, L100.0100, L501.9520, L506.1000, L501.9985, L500.4100 ####[facility] [address] [place], [address] GAP 7 Normal 5-15 [facility] Comment on above: Performed By: #### L 500.4050, L100.0100, L501.9520, L506.1000, L501.9985, L500.4100 ####[facility] [address] [place], [address] GFR/1.73 sq M.predicted among non-blacks MDRD (S/P/Bld) [Vol rate/Area] 41 mL/min/{1.73_m2} Low >60 [facility] Comment on above: Result Comment: Non- GFR Calc Performed By: #### L 500.4050, L100.0100, L501.9520, L506.1000, L501.9985, L500.4100 ####[facility] [address] [place], [address] Globulin (S) [Mass/Vol] 3.8 g/dL Normal 2.2-4.2 [facility] Comment on above: Performed By: #### L 500.4050, L100.0100, L501.9520, L506.1000, L501.9985, L500.4100 ####[facility] [address] [place], [address] Glucose [Mass/Vol] 190 mg/dL High 74-106 [facility] Comment on above: Result Comment: Fast ing Glucose result greater than or equal to 126 mg/dLsuggests DIABETES MELLITUS per A.D.A. criteria. Performed By: #### L 500.4050, L100.0100, L501.9520, L506.1000, L501.9985, L500.4100 ####[facility] [address] [place], [address] Potassium [Moles/Vol] 4.6 mmol/L Normal 3.5-5.1 [facility] [facility] Comment on above: Result Comment: Slig ht Hemolysis, Result may be falsely increased. Performed By: #### L 500.4050, L100.0100, L501.9520, L506.1000, L501.9985, L500.4100 ####[facility] [address] [place], [address] Sodium [Moles/Vol] 132 mmol/L Low 136-145 [facility] Comment on above: Performed By: #### L 500.4050, L100.0100, L501.9520, L506.1000, L501.9985, L500.4100 ####[facility] [address] [place], [address] T PROT 7.1 g/dL Normal 6.4-8.2 [facility] Comment on above: Performed By: #### L 500.4050, L100.0100, L501.9520, L506.1000, L501.9985, L500.4100 ####[facility] [address] [place], [address] Urea nitrogen [Mass/Vol] 17 mg/dL Normal 7-18 [facility] Comment on above: Performed By: #### L 500.4050, L100.0100, L501.9520, L506.1000, L501.9985, L500.4100 ####[facility] [address] [place], [address] Hemoglobin A1con 01-24-2024 HbA1c (Bld) [Mass fraction] 6.1 % High 3.8-5.6 [facility] Comment on above: Result Comment: Norm al < 5.7 % Prediabetic 5.7 - 6.4 % Diabetic >or= 6.5 % Please note range changes. Performed By: #### L 500.4050, L100.0100, L501.9520, L506.1000, L501.9985, L500.4100 ####[facility] [address] [place], [address] Lipid Profileon 01-24-2024 Cholesterol [Mass/Vol] 113 mg/dL Normal 200 [facility] Comment on above: Result Comment: <200 mg/dL Desirable 200-240 mg/dL Borderline >240 mg/dL High Risk Performed By: #### L 500.4050, L100.0100, L501.9520, L506.1000, L501.9985, L500.4100 ####[facility] [address] [place], [address] Cholesterol in HDL [Mass/Vol] 56 mg/dL Normal [facility] Comment on above: Result Comment: The drugs N-Acetylcysteine and Metamizole may falselydepress this assay. Reference Range HDL <40 mg/dL Low HDL Cholesterol HDL >or= 60 mg/dL High HDL Cholesterol Performed By: #### L 500.4050, L100.0100, L501.9520, L506.1000, L501.9985, L500.4100 ####[facility] [address] [place], [address] Cholesterol in LDL [Mass/Vol] 41 mg/dL Normal 0-130 [facility] Comment on above: Performed By: #### L 500.4050, L100.0100, L501.9520, L506.1000, L501.9985, L500.4100 ####[facility] [address] [place], [address] Cholesterol in VLDL [Mass/Vol] 16 mg/dL Normal 5-40 [facility] Comment on above: Performed By: #### L 500.4050, L100.0100, L501.9520, L506.1000, L501.9985, L500.4100 ####[facility] [address] [place], [address] Triglyceride [Mass/Vol] 80 mg/dL Normal [facility] Comment on above: Result Comment: The drugs N-Acetylcysteine and Metamizole may falselydepress this assay.Serum Triglycerides Reference Interval Normal <150 mg/dL Borderline high 150 - 199 mg/dL High 200 - 499 mg/dL Very High > or = 500 mg/dL Performed By: #### L 500.4050, L100.0100, L501.9520, L506.1000, L501.9985, L500.4100 ####[facility] [address] [place], [address] Thyroid Stim Hormone (TSH)on 01-24-2024 TSH 2.480 uIU/mL Normal 0.358-3.740 [facility] Comment on above: Performed By: #### L 500.4050, L100.0100, L501.9520, L506.1000, L501.9985, L500.4100 ####[facility] [address] [place], [address] Vitamin D,25 Hydroxyon 01-23 Vitamin D 25-OH 33.6 ng/mL Normal [facility] Comment on above: Result Comment: Mary min D 25(OH) Status Range Deficiency <20 ng/mL (50nmol/L) Insufficiency 20 - 30 ng/mL (50 - 75 nmol/L) Sufficiency 30 - 100 ng/mL (75 - 250 nmol/L) Toxicity >100 ng/mL (>250 nmol/L) Performed By: #### L 500.4050, L100.0100, L501.9520, L506.1000, L501.9985, L500.4100 ####[facility] [address] [place], [address] Absolute lymphocyte countOrd ered By: Bernard Nugent on 07-24-2023 Lymphocytes Auto (Unsp spec) [#/Vol] 1.16 10*3/uL 0.83-4.51 [facility] Automated lymphocyte count a s percentage of total leukocytesOrdered By: Bernard Nugent on 07-24-2023 Lymphocytes/100 WBC Auto (Unsp spec) 12.7 % 19-41 [facility] Basophil percentageOrdered B y: Bernard Nugent on 07-24-2023 Basophils/100 WBC (Bld) 0.4 % 0-1 [facility] Bilirubin [Mass/Vol] 2.20 mg/dL 0.20-1.00 [facility] Comment on above: For patients on eltr ombopag therapy, use of Dimension [place] TBIL is not recommended. Chloride [Moles/Vol] 103 mmol/L 98-107 [facility] Cholesterol [Mass/Vol] 131 mg/dL <200 [facility] Comment on above: <200 mg/dL Desirable 200-240 mg/dL Borderline >240 mg/dL High Risk Eosinophils/100 WBC (Bld) 3.0 % 0-5 [facility] Glucose [Mass/Vol] 191 mg/dL 74-106 [facility] Comment on above: Fasting Glucose resu lt greater than or equal to 126 mg/dL suggests DIABETES MELLITUS per A.D.A. criteria. Hemoglobin (Bld) [Mass/Vol] 14.6 g/dL 13.0-16.5 [facility] Monocytes/100 WBC (Bld) 8.1 % 0-10 [facility] Neutrophils (Bld) [#/Vol] 6.9 10*3/uL 2.0-7.7 [facility] Neutrophils/100 WBC (Bld) 75.0 % 47-70 [facility] Potassium [Moles/Vol] 4.2 mmol/L 3.5-5.1 [facility] Protein [Mass/Vol] 6.7 g/dL 6.4-8.2 [facility] Sodium [Moles/Vol] 135 mmol/L 136-145 [facility] Triglyceride [Mass/Vol] 130 mg/dL <199 [facility] Comment on above: The drugs N-Acetylcy steine and Metamizole may falsely depress this assay.Serum Triglycerides Reference Interval Normal <150 mg/dL Borderline high 150 - 199 mg/dL High 200 - 499 mg/dL Very High > or = 500 mg/dL WBC (Bld) [#/Vol] 9.1 10*3/uL 4.4-11.0 [facility] Determination of erythrocyte mean corpuscular volume (MCV)Ordered By: Bernard Nugent on 07-24-2023 MCV (RBC) [Entitic vol] 90.3 fL 80-94 [facility] Erythrocyte distribution wid th ratioOrdered By: Bernard Nugent on 07-24-2023 Erythrocyte distribution width (RBC) [Ratio] 13.2 % 11.6-14.6 [facility] Erythrocyte distribution wid th standard deviationOrdered By: Bernard Nugent on 07-24-2023 Erythrocyte distribution width (RBC) [Entitic vol] 44.2 fL 35.1-43.9 [facility] Hematocrit Auto (Bld) [Volum e fraction]Ordered By: Bernard Nugent on 07-24-2023 Hematocrit (Bld) [Volume fraction] 42.7 % 40-54 [facility] Immature granulocytes/100 WB C Auto (Bld)Ordered By: Bernard Nugent on 07-24-2023 Immature granulocytes/100 WBC (Bld) 0.800 % 0.0-0.9 [facility] Comment on above: IG% - Immature Granu locytes (promyelocytes, myelocytes and metamyelocytes) > 1% indicates that a LEFT SHIFT is Present. Laboratory - Chemistry and C hemistry - challengeOrdered By: Bernard Nugent on 07-24-2023 Albumin/Globulin [Mass ratio] 1.0 {ratio} 0.9-2.4 [facility] ALP [Catalytic activity/Vol] 126 U/L 45-117 [facility] ALT [Catalytic activity/Vol] 20 U/L 16-61 [facility] Cholesterol in HDL [Mass/Vol] 53 mg/dL >40 [facility] Comment on above: The drugs N-Acetylcy steine and Metamizole may falsely depress this assay. Reference Range HDL <40 mg/dL Low HDL Cholesterol HDL >or= 60 mg/dL High HDL Cholesterol Cholesterol in LDL [Mass/Vol] 52 mg/dL 0-130 [facility] CO2 [Moles/Vol] 25.0 mmol/L 21.0-32.0 [facility] Globulin (S) [Mass/Vol] 3.4 g/dL 2.2-4.2 [facility] Urea nitrogen/Creatinine [Mass ratio] 9.4 mg/mg 10-20 [facility] Laboratory - Hematology and Cell countsOrdered By: Bernard Nugent on 07-24-2023 MCH (RBC) [Entitic mass] 30.9 pg 27.0-32.0 [facility] MCHC (RBC) [Mass/Vol] 34.2 g/dL 32-36 [facility] Nucleated RBC/100 WBC (Bld) [Ratio] 0 % 0-5 [facility] Platelet mean volume (Bld) [Entitic vol] 11.6 fL 6.2-12.0 [facility] Platelets (Bld) [#/Vol] 241 10*3/uL 150-450 [facility] No Panel InformationOrdered By: Bernard Nugent on 07-24-2023 Estimated GFR (MDRD) Amer 49 mL/min >60 [facility] Comment on above: GFR Calc Estimated GFR (MDRD) Non-Af Amer 41 mL/min >60 [facility] Comment on above: Non- GFR Calc Vitamin D 25-Hydroxy 32.0 ng/mL [facility] Comment on above: Vitamin D 25(OH) Sta tus Range Deficiency <20 ng/mL (50nmol/L) Insufficiency 20 - 30 ng/mL (50 - 75 nmol/L) Sufficiency 30 - 100 ng/mL (75 - 250 nmol/L) Toxicity >100 ng/mL (>250 nmol/L) VLDL Cholesterol 26 mg/dL 5-40 [facility] RBC Auto (Bld) [#/Vol]Ordere d By: Bernard Nugent on 07-24-2023 RBC (Bld) [#/Vol] 4.73 10*6/uL 4.6-6.2 [facility] Serum or plasma calcium sita urement (mass/volume)Ordered By: Bernard Nugent on 07-24-2023 Calcium [Mass/Vol] 8.8 mg/dL 8.5-10.1 [facility] Serum or plasma creatinine m easurement (mass/volume)Ordered By: Bernard Nugent on 07-24-2023 Creatinine [Mass/Vol] 1.70 mg/dL 0.70-1.30 [facility] Comment on above: The validity of the calculated GFR & GFRAA in patients over 70 years has not been determined. Clinical correlation is essential. Serum or plasma thyroid stim ulating hormone (TSH) measurement (units/volume)Ordered By: Bernard Nugent on 07-24-2023 TSH Qn 6.68 uIU/mL 0.358-3.74 [facility] Serum or plasma urea nitroge n measurement (mass/volume)Ordered By: Bernard Nugent on 07-24-2023 Urea nitrogen [Mass/Vol] 16 mg/dL 18 [facility] Thin prep Papanicolaou smear with manual screeningOrdered By: Bernard Nugent on 07-24-2023 Thin prep Papanicolaou smear with manual screening 3.3 g/dL 3.2-5.0 [facility] Thin prep Papanicolaou smear with manual screening 15 U/L 15-37 [facility] Thin prep Papanicolaou smear with manual screening 7 5-15 [facility] Whole blood hemoglobin A1c/t otal hemoglobin ratio (mass fraction)Ordered By: Bernard Nugent on 07-24-2023 HbA1c (Bld) [Mass fraction] 6.2 % 3.8-5.6 [facility] Comment on above: Normal < 5.7 % Predi abetic 5.7 - 6.4 % Diabetic >or= 6.5 % Please note range changes. Absolute lymphocyte countOrd ered By: Ray Stuart on 07-07-2023 Lymphocytes Auto (Unsp spec) [#/Vol] 0.52 10*3/uL 0.83-4.51 [facility] Automated lymphocyte count a s percentage of total leukocytesOrdered By: Ray Stuart on 07-07-2023 Lymphocytes/100 WBC Auto (Unsp spec) 2.9 % 19-41 [facility] Basophil percentageOrdered B y: Ray Stuart on 07-07-2023 Basophils/100 WBC (Bld) 0.3 % 0-1 [facility] Chloride [Moles/Vol] 99 mmol/L 98-107 [facility] Eosinophils/100 WBC (Bld) 0.4 % 0-5 [facility] Glucose [Mass/Vol] 243 mg/dL 74-106 [facility] Comment on above: Glucose result great er than or equal to 200 mg/dLsuggests DIABETES MELLITUS per A.D.A. criteria. Hemoglobin (Bld) [Mass/Vol] 16.5 g/dL 13.0-16.5 [facility] Monocytes/100 WBC (Bld) 7.1 % 0-10 [facility] Neutrophils (Bld) [#/Vol] 15.7 10*3/uL 2.0-7.7 [facility] Neutrophils/100 WBC (Bld) 88.7 % 47-70 [facility] Potassium [Moles/Vol] 3.8 mmol/L 3.5-5.1 [facility] Sodium [Moles/Vol] 134 mmol/L 136-145 [facility] WBC (Bld) [#/Vol] 17.7 10*3/uL 4.4-11.0 [facility] Basophil percentage 0 SEEN /hpf 0-5 [facility] Bilirubin Test strip Ql (U)O rdered By: Ray Stuart on 07-07-2023 Bilirubin Ql (U) Negative Negative [facility] Determination of erythrocyte mean corpuscular volume (MCV)Ordered By: Ray Stuart on 07-07-2023 MCV (RBC) [Entitic vol] 90.6 fL 80-94 [facility] Erythrocyte distribution wid th ratioOrdered By: Ray Stuart on 07-07-2023 Erythrocyte distribution width (RBC) [Ratio] 13.5 % 11.6-14.6 [facility] Erythrocyte distribution wid th standard deviationOrdered By: Ray Stuart on 07-07-2023 Erythrocyte distribution width (RBC) [Entitic vol] 45.1 fL 35.1-43.9 [facility] Hematocrit Auto (Bld) [Volum e fraction]Ordered By: Ray Stuart on 07-07-2023 Hematocrit (Bld) [Volume fraction] 48.1 % 40-54 [facility] Immature granulocytes/100 WB C Auto (Bld)Ordered By: Ray Stuart on 07-07-2023 Immature granulocytes/100 WBC (Bld) 0.600 % 0.0-0.9 [facility] Comment on above: IG% - Immature Granu locytes (promyelocytes, myelocytes and metamyelocytes) > 1% indicates that a LEFT SHIFT is Present. Ketones Test strip Ql (U)Ord ered By: Ray Stuart on 07-07-2023 Ketones Ql (U) Negative Negative [facility] Laboratory - Chemistry and C hemistry - challengeOrdered By: Ray Stuart on 07-07-2023 CO2 [Moles/Vol] 29.0 mmol/L 21.0-32.0 [facility] Natriuretic peptide B (Bld) [Mass/Vol] 332.6 pg/mL 0-100 [facility] Urea nitrogen/Creatinine [Mass ratio] 7.4 mg/mg 10-20 [facility] Laboratory - Hematology and Cell countsOrdered By: Ray Stuart on 07-07-2023 MCH (RBC) [Entitic mass] 31.1 pg 27.0-32.0 [facility] MCHC (RBC) [Mass/Vol] 34.3 g/dL 32-36 [facility] Nucleated RBC/100 WBC (Bld) [Ratio] 0 % 0-5 [facility] Platelet mean volume (Bld) [Entitic vol] 11.7 fL 6.2-12.0 [facility] Platelets (Bld) [#/Vol] 199 10*3/uL 150-450 [facility] Laboratory - Microbiology an d Antimicrobial susceptibilityOrdered By: Ray Stuart on 07-07-2023 SARS-CoV-2 (COVID-19) RNA MELIZA+probe Ql (Unsp spec) [facility] SARS-CoV-2 (COVID-19) RNA MELIZA+probe Ql (Unsp spec) [facility] Mucus LM Ql (Urine sed)Order ed By: Ray Stuart on 07-07-2023 Mucus Ql (Urine sed) 0 SEEN /hpf [facility] Nitrite Test strip Ql (U)Ord ered By: Ray Stuart on 07-07-2023 Nitrite Ql (U) Negative Negative [facility] No Panel InformationOrdered By: Ray Stuart on 07-07-2023 Troponin I High Sensitivity 44 pg/mL 3.0-78.0 [facility] Comment on above: Please Note: [place] t Units and Gender Specific Reference Ranges. For more information see Policy Stat Procedure [place] High Sensitivity Troponin (TNIH) and attachments. Estimated Creatinine Clearance Calc 37.04 ml/min [facility] Estimated GFR (MDRD) Amer 52 mL/min >60 [facility] Comment on above: GFR Calc Estimated GFR (MDRD) Non-Af Amer 43 mL/min >60 [facility] Comment on above: Non- GFR Calc Urine RBC 0 SEEN /hpf 0-5 [facility] Protein Test strip Ql (U)Ord ered By: Ray Stuart on 07-07-2023 Protein Ql (U) 30 mg/dl Negative [facility] RBC Auto (Bld) [#/Vol]Ordere d By: Ray Stuart on 07-07-2023 RBC (Bld) [#/Vol] 5.31 10*6/uL 4.6-6.2 [facility] Serum or plasma calcium sita urement (mass/volume)Ordered By: Ray Stuart on 07-07-2023 Calcium [Mass/Vol] 9.7 mg/dL 8.5-10.1 [facility] Serum or plasma creatinine m easurement (mass/volume)Ordered By: Ray Stuart on 07-07-2023 Creatinine [Mass/Vol] 1.62 mg/dL 0.70-1.30 [facility] Comment on above: The validity of the calculated GFR & GFRAA in patients over 70 years has not been determined. Clinical correlation is essential. Serum or plasma urea nitroge n measurement (mass/volume)Ordered By: Ray Stuart on 07-07-2023 Urea nitrogen [Mass/Vol] 12 mg/dL 7-18 [facility] Squamous epithelial cells de tection in urine sediment by light microscopyOrdered By: Ray Stuart on 07-07-2023 Epithelial cells.squamous LM Ql (Urine sed) 0 SEEN /hpf 0-5 [facility] Thin prep Papanicolaou smear with manual screeningOrdered By: Ray Stuart on 07-07-2023 Thin prep Papanicolaou smear with manual screening 6 5-15 [facility] Urine blood detectionOrdered By: Ray Stuart on 07-07-2023 RBC Ql (U) 10 /ul Negative [facility] Urine clarityOrdered By: Telma Stuart on 07-07-2023 Clarity (U) Clear Clear [facility] Urine color determinationOrd ered By: Ray Stuart on 07-07-2023 Color (U) Yellow Yellow [facility] Urine glucose detectionOrder ed By: Ray Stuart on 07-07-2023 Glucose Ql (U) Normal mg/dl Normal [facility] Urine leukocyte esterase det ection by dipstickOrdered By: Ray Stuart on 07-07-2023 Leukocyte esterase Test strip Ql (U) Negative Negative [facility] Urine pHOrdered By: Ray yousif on 07-07-2023 pH (U) 6.5 [pH] 5.0 - 8.0 [facility] Urine sediment bacteria coun t by microscopy (number/high power field)Ordered By: Ray Stuart on 07-07-2023 Bacteria LM.HPF (Urine sed) [#/Area] 0 /[HPF] None Seen [facility] Urine specific gravity measu rementOrdered By: Ray Stuart on 07-07-2023 Specific gravity (U) [Rel density] 1.010 1.002-1.030 [facility] Urine urobilinogen measureme ntOrdered By: Ray Stuart on 07-07-2023 Urobilinogen Ql (U) Normal mg/dl Normal [facility] Absolute lymphocyte countOrd ered By: Anson Fonseca on 05-26-2023 Lymphocytes Auto (Unsp spec) [#/Vol] 1.19 10*3/uL 0.83-4.51 [facility] Basophil percentageOrdered B y: Anson Fonseca on 05-26-2023 Basophils/100 WBC (Bld) 0.6 % 0-1 [facility] Bilirubin [Mass/Vol] 2.20 mg/dL 0.20-1.00 [facility] Comment on above: For patients on eltr ombopag therapy, use of Dimension [place] TBIL is not recommended. Chloride [Moles/Vol] 102 mmol/L 98-107 [facility] Eosinophils/100 WBC (Bld) 1.3 % 0-5 [facility] Glucose [Mass/Vol] 106 mg/dL 74-106 [facility] Comment on above: Fasting Glucose resu lt from 100 to 125 mg/dL suggests IMPAIRED HOMEOSTASIS per A.D.A. criteria. Neutrophils (Bld) [#/Vol] 8.0 10*3/uL 2.0-7.7 [facility] Neutrophils/100 WBC (Bld) 76.8 % 47-70 [facility] Potassium [Moles/Vol] 3.6 mmol/L 3.5-5.1 [facility] Protein [Mass/Vol] 7.3 g/dL 6.4-8.2 [facility] Sodium [Moles/Vol] 137 mmol/L 136-145 [facility] WBC (Bld) [#/Vol] 10.4 10*3/uL 4.4-11.0 [facility] Blood erythrocytes count (nu mber/volume)Ordered By: Anson Fonseca on 05-26-2023 RBC (Bld) [#/Vol] 5.04 10*6/uL 4.6-6.2 [facility] Blood hemoglobin measurement (mass/volume)Ordered By: Anson Fonseca on 05-26-2023 Hemoglobin (Bld) [Mass/Vol] 15.6 g/dL 13.0-16.5 [facility] Blood lymphocytes/100 leukoc ytesOrdered By: Anson Fonseca on 05-26-2023 Lymphocytes/100 WBC (Bld) 11.5 % 19-41 [facility] Blood monocytes/100 leukocyt esOrdered By: Anson Fonseca on 05-26-2023 Monocytes/100 WBC (Bld) 9.1 % 0-10 [facility] Blood platelet mean volumeOr dered By: Anson Fonseca on 05-26-2023 Platelet mean volume (Bld) [Entitic vol] 11.1 fL 6.2-12.0 [facility] Determination of erythrocyte mean corpuscular volume (MCV)Ordered By: Anson Fonseca on 05-26-2023 MCV (RBC) [Entitic vol] 90.3 fL 80-94 [facility] Hematocrit Auto (Bld) [Volum e fraction]Ordered By: Anson Fonseca on 05-26-2023 Hematocrit (Bld) [Volume fraction] 45.5 % 40-54 [facility] Laboratory - Chemistry and C hemistry - challengeOrdered By: Anson Fonseca on 05-26-2023 ALP [Catalytic activity/Vol] 142 U/L 45-117 [facility] ALT [Catalytic activity/Vol] 32 U/L 16-61 [facility] CO2 [Moles/Vol] 29.0 mmol/L 21.0-32.0 [facility] Globulin (S) [Mass/Vol] 3.8 g/dL 2.2-4.2 [facility] Urea nitrogen/Creatinine [Mass ratio] 11.9 mg/mg 10-20 [facility] Laboratory - Hematology and Cell countsOrdered By: Anson Fonseca on 05-26-2023 Erythrocyte distribution width (RBC) [Entitic vol] 43.1 fL 35.1-43.9 [facility] Erythrocyte distribution width (RBC) [Ratio] 13.2 % 11.6-14.6 [facility] Immature granulocytes/100 WBC (Bld) 0.700 % 0.0-0.9 [facility] Comment on above: IG% - Immature Granu locytes (promyelocytes, myelocytes and metamyelocytes) > 1% indicates that a LEFT SHIFT is Present. MCH (RBC) [Entitic mass] 31.0 pg 27.0-32.0 [facility] Nucleated RBC/100 WBC (Bld) [Ratio] 0 % 0-5 [facility] MCHC Auto (RBC) [Mass/Vol]Or dered By: Anson Fonseca on 05-26-2023 MCHC (RBC) [Mass/Vol] 34.3 g/dL 32-36 [facility] No Panel InformationOrdered By: Anson Fonseca on 05-26-2023 Estimated Creatinine Clearance Calc 30.36 ml/min [facility] Estimated GFR (MDRD) Amer 47 mL/min >60 [facility] Comment on above: GFR Calc Estimated GFR (MDRD) Non-Af Amer 39 mL/min >60 [facility] Comment on above: Non- GFR Calc Platelets bldOrdered By: Ignacio Fonseca on 05-26-2023 Platelets (Bld) [#/Vol] 206 10*3/uL 150-450 [facility] Serum or plasma albumin sita urement (mass/volume)Ordered By: Anson Fonseca on 05-26-2023 Albumin [Mass/Vol] 3.5 g/dL 3.2-5.0 [facility] Serum or plasma albumin/glob ulin mass ratioOrdered By: Anson Fonseca on 05-26-2023 Albumin/Globulin [Mass ratio] 0.9 {ratio} 0.9-2.4 [facility] Serum or plasma calcium sita urement (mass/volume)Ordered By: Anson Fonseca on 05-26-2023 Calcium [Mass/Vol] 8.5 mg/dL 8.5-10.1 [facility] Serum or plasma creatinine m easurement (mass/volume)Ordered By: Anson Fonseca on 05-26-2023 Creatinine [Mass/Vol] 1.77 mg/dL 0.70-1.30 [facility] Comment on above: The validity of the calculated GFR & GFRAA in patients over 70 years has not been determined. Clinical correlation is essential. Serum or plasma urea nitroge n measurement (mass/volume)Ordered By: Anson Fonseca on 05-26-2023 Urea nitrogen [Mass/Vol] 21 mg/dL 7-18 [facility] Thin prep Papanicolaou smear with manual screeningOrdered By: Anson Fonseca on 05-26-2023 Thin prep Papanicolaou smear with manual screening 31 U/L 15-37 [facility] Thin prep Papanicolaou smear with manual screening 6 5-15 [facility] Basophil percentageOrdered B y: Bernard Nugent on 03-25-2023 Chloride [Moles/Vol] 103 mmol/L 98-107 [facility] Glucose [Mass/Vol] 154 mg/dL 74-106 [facility] Comment on above: Fasting Glucose resu lt greater than or equal to 126 mg/dL suggests DIABETES MELLITUS per A.D.A. criteria. Potassium [Moles/Vol] 3.7 mmol/L 3.5-5.1 [facility] Sodium [Moles/Vol] 138 mmol/L 136-145 [facility] Laboratory - Chemistry and C hemistry - challengeOrdered By: Bernard Nugent on 03-25-2023 CO2 [Moles/Vol] 27.0 mmol/L 21.0-32.0 [facility] Urea nitrogen/Creatinine [Mass ratio] 10.2 mg/mg 10-20 [facility] No Panel InformationOrdered By: Bernard Nugent on 03-25-2023 Estimated GFR (MDRD) Amer 50 mL/min >60 [facility] Comment on above: GFR Calc Estimated GFR (MDRD) Non-Af Amer 42 mL/min >60 [facility] Comment on above: Non- GFR Calc Serum or plasma calcium sita urement (mass/volume)Ordered By: Bernard Nugent on 03-25-2023 Calcium [Mass/Vol] 8.6 mg/dL 8.5-10.1 [facility] Serum or plasma creatinine m easurement (mass/volume)Ordered By: Bernard Nugent on 03-25-2023 Creatinine [Mass/Vol] 1.67 mg/dL 0.70-1.30 [facility] Comment on above: The validity of the calculated GFR & GFRAA in patients over 70 years has not been determined. Clinical correlation is essential. Serum or plasma urea nitroge n measurement (mass/volume)Ordered By: Bernard Nugent on 03-25-2023 Urea nitrogen [Mass/Vol] 17 mg/dL 7-18 [facility] Thin prep Papanicolaou smear with manual screeningOrdered By: Bernard Nugent on 03-25-2023 Thin prep Papanicolaou smear with manual screening 8 5-15 [facility] Absolute lymphocyte countOrd ered By: Raghu Acosta on 03-24-2023 Lymphocytes Auto (Unsp spec) [#/Vol] 0.79 10*3/uL 0.83-4.51 [facility] Basophil percentageOrdered B y: Raghu Acosta on 03-24-2023 Basophil percentage 0 SEEN /hpf 0-5 [facility] Basophils/100 WBC (Bld) 0.5 % 0-1 [facility] Bilirubin [Mass/Vol] 2.20 mg/dL 0.20-1.00 [facility] Comment on above: For patients on eltr ombopag therapy, use of Dimension [place] TBIL is not recommended. Chloride [Moles/Vol] 99 mmol/L 98-107 [facility] Eosinophils/100 WBC (Bld) 1.0 % 0-5 [facility] Glucose [Mass/Vol] 279 mg/dL 74-106 [facility] Comment on above: Glucose result great er than or equal to 200 mg/dLsuggests DIABETES MELLITUS per A.D.A. criteria. Neutrophils (Bld) [#/Vol] 7.1 10*3/uL 2.0-7.7 [facility] Neutrophils/100 WBC (Bld) 82.0 % 47-70 [facility] Potassium [Moles/Vol] 3.7 mmol/L 3.5-5.1 [facility] Protein [Mass/Vol] 6.9 g/dL 6.4-8.2 [facility] Sodium [Moles/Vol] 135 mmol/L 136-145 [facility] WBC (Bld) [#/Vol] 8.6 10*3/uL 4.4-11.0 [facility] Bilirubin Test strip Ql (U)O rdered By: Raghu Acosta on 03-24-2023 Bilirubin Ql (U) Negative Negative [facility] Blood erythrocytes count (nu mber/volume)Ordered By: Raghu Acosta on 03-24-2023 RBC (Bld) [#/Vol] 4.82 10*6/uL 4.6-6.2 [facility] Blood hemoglobin measurement (mass/volume)Ordered By: Raghu Acosta on 03-24-2023 Hemoglobin (Bld) [Mass/Vol] 14.7 g/dL 13.0-16.5 [facility] Blood lymphocytes/100 leukoc ytesOrdered By: Raghu Acosta on 03-24-2023 Lymphocytes/100 WBC (Bld) 9.1 % 19-41 [facility] Blood monocytes/100 leukocyt esOrdered By: Raghu Acosta on 03-24-2023 Monocytes/100 WBC (Bld) 6.9 % 0-10 [facility] Blood platelet mean volumeOr dered By: Raghu Acosta on 03-24-2023 Platelet mean volume (Bld) [Entitic vol] 11.7 fL 6.2-12.0 [facility] Determination of erythrocyte mean corpuscular volume (MCV)Ordered By: Raghu Acosta on 03-24-2023 MCV (RBC) [Entitic vol] 89.2 fL 80-94 [facility] Hematocrit Auto (Bld) [Volum e fraction]Ordered By: Raghu Acosta on 03-24-2023 Hematocrit (Bld) [Volume fraction] 43.0 % 40-54 [facility] Ketones Test strip Ql (U)Ord ered By: Raghu Acosta on 03-24-2023 Ketones Ql (U) Negative Negative [facility] Laboratory - Chemistry and C hemistry - challengeOrdered By: Raghu Acosta on 03-24-2023 ALP [Catalytic activity/Vol] 132 U/L 45-117 [facility] ALT [Catalytic activity/Vol] 20 U/L 16-61 [facility] CO2 [Moles/Vol] 29.0 mmol/L 21.0-32.0 [facility] Globulin (S) [Mass/Vol] 3.7 g/dL 2.2-4.2 [facility] Urea nitrogen/Creatinine [Mass ratio] 9.9 mg/mg 10-20 [facility] Laboratory - Hematology and Cell countsOrdered By: Raghu Acosta on 03-24-2023 Erythrocyte distribution width (RBC) [Entitic vol] 44.8 fL 35.1-43.9 [facility] Erythrocyte distribution width (RBC) [Ratio] 13.8 % 11.6-14.6 [facility] Immature granulocytes/100 WBC (Bld) 0.500 % 0.0-0.9 [facility] Comment on above: IG% - Immature Granu locytes (promyelocytes, myelocytes and metamyelocytes) > 1% indicates that a LEFT SHIFT is Present. MCH (RBC) [Entitic mass] 30.5 pg 27.0-32.0 [facility] Nucleated RBC/100 WBC (Bld) [Ratio] 0 % 0-5 [facility] MCHC Auto (RBC) [Mass/Vol]Or dered By: Raghu Acosta on 03-24-2023 MCHC (RBC) [Mass/Vol] 34.2 g/dL 32-36 [facility] Mucus LM Ql (Urine sed)Order ed By: Raghu Acosta on 03-24-2023 Mucus Ql (Urine sed) 0 SEEN /hpf [facility] Nitrite Test strip Ql (U)Ord ered By: Raghu Acosta on 03-24-2023 Nitrite Ql (U) Negative Negative [facility] No Panel InformationOrdered By: Raghu Acosta on 03-24-2023 Estimated Creatinine Clearance Calc 27.99 ml/min [facility] Estimated GFR (MDRD) Amer 43 mL/min >60 [facility] Comment on above: GFR Calc Estimated GFR (MDRD) Non-Af Amer 35 mL/min >60 [facility] Comment on above: Non- GFR Calc Troponin I High Sensitivity 32 pg/mL 3.0-78.0 [facility] Comment on above: Please Note: [place] t Units and Gender Specific Reference Ranges. For more information see Policy Stat Procedure [place] High Sensitivity Troponin (TNIH) and attachments. Platelets bldOrdered By: Delio Acosta on 03-24-2023 Platelets (Bld) [#/Vol] 170 10*3/uL 150-450 [facility] Protein Test strip Ql (U)Ord ered By: Raghu Acosta on 03-24-2023 Protein Ql (U) 15 mg/dl Negative [facility] Serum or plasma albumin sita urement (mass/volume)Ordered By: Raghu Acosta on 03-24-2023 Albumin [Mass/Vol] 3.2 g/dL 3.2-5.0 [facility] Serum or plasma albumin/glob ulin mass ratioOrdered By: Raghu Acosta on 03-24-2023 Albumin/Globulin [Mass ratio] 0.9 {ratio} 0.9-2.4 [facility] Serum or plasma calcium sita urement (mass/volume)Ordered By: Raghu Acosta on 03-24-2023 Calcium [Mass/Vol] 8.4 mg/dL 8.5-10.1 [facility] Serum or plasma creatinine m easurement (mass/volume)Ordered By: Raghu Acosta on 03-24-2023 Creatinine [Mass/Vol] 1.92 mg/dL 0.70-1.30 [facility] Comment on above: The validity of the calculated GFR & GFRAA in patients over 70 years has not been determined. Clinical correlation is essential. Serum or plasma urea nitroge n measurement (mass/volume)Ordered By: Raghu Acosta on 03-24-2023 Urea nitrogen [Mass/Vol] 19 mg/dL 7-18 [facility] Squamous epithelial cells de tection in urine sediment by light microscopyOrdered By: Raghu Acosta on 03-24-2023 Epithelial cells.squamous LM Ql (Urine sed) 0 SEEN /hpf 0-5 [facility] Thin prep Papanicolaou smear with manual screeningOrdered By: Raghu Acosta on 03-24-2023 Thin prep Papanicolaou smear with manual screening 14 U/L 15-37 [facility] Thin prep Papanicolaou smear with manual screening 7 5-15 [facility] Urine blood detectionOrdered By: Raghu Acosta on 03-24-2023 RBC Ql (U) 10 /ul Negative [facility] RBC Ql (U) 0 SEEN /hpf 0-5 [facility] Urine clarityOrdered By: Delio Acosta on 03-24-2023 Clarity (U) Clear Clear [facility] Urine color determinationOrd ered By: Raghu Acosta on 03-24-2023 Color (U) Yellow Yellow [facility] Urine glucose detectionOrder ed By: Raghu Acosta on 03-24-2023 Glucose Ql (U) 100 mg/dl Normal [facility] Urine leukocyte esterase det ection by dipstickOrdered By: Raghu Acosta on 03-24-2023 Leukocyte esterase Test strip Ql (U) Negative Negative [facility] Urine pHOrdered By: Raghu childress on 03-24-2023 pH (U) 7.0 [pH] 5.0 - 8.0 [facility] Urine sediment bacteria coun t by microscopy (number/high power field)Ordered By: Raghu Acosta on 03-24-2023 Bacteria LM.HPF (Urine sed) [#/Area] 0 /[HPF] None Seen [facility] Urine specific gravity measu rementOrdered By: Raghu Acosta on 03-24-2023 Specific gravity (U) [Rel density] 1.010 1.002-1.030 [facility] Urobilinogen Auto test strip Ql (U)Ordered By: Raghu Acosta on 03-24-2023 Urobilinogen Ql (U) Normal mg/dl Normal [facility] Basophil percentageOrdered B y: Shaila Haq on 02-07-2023 Basophil percentage 2.9 mg/dL 2.5-4.9 [facility] Chloride [Moles/Vol] 100 mmol/L 98-107 [facility] Glucose [Mass/Vol] 159 mg/dL 74-106 [facility] Comment on above: Fasting Glucose resu lt greater than or equal to 126 mg/dL suggests DIABETES MELLITUS per A.D.A. criteria. Potassium [Moles/Vol] 3.7 mmol/L 3.5-5.1 [facility] Sodium [Moles/Vol] 136 mmol/L 136-145 [facility] Laboratory - Chemistry and C hemistry - challengeOrdered By: Shaila Haq on 02-07-2023 CO2 [Moles/Vol] 32.0 mmol/L 21.0-32.0 [facility] Urea nitrogen/Creatinine [Mass ratio] 8.5 mg/mg 10-20 [facility] No Panel InformationOrdered By: Shaila Haq on 02-07-2023 Estimated GFR (MDRD) Amer 56 mL/min >60 [facility] Comment on above: GFR Calc Estimated GFR (MDRD) Non-Af Amer 46 mL/min >60 [facility] Comment on above: Non- GFR Calc Serum or plasma albumin sita urement (mass/volume)Ordered By: Shaila Haq on 02-07-2023 Albumin [Mass/Vol] 3.5 g/dL 3.2-5.0 [facility] Serum or plasma calcium sita urement (mass/volume)Ordered By: Shaila Haq on 02-07-2023 Calcium [Mass/Vol] 8.5 mg/dL 8.5-10.1 [facility] Serum or plasma creatinine m easurement (mass/volume)Ordered By: Shaila Haq on 02-07-2023 Creatinine [Mass/Vol] 1.53 mg/dL 0.70-1.30 [facility] Comment on above: The validity of the calculated GFR & GFRAA in patients over 70 years has not been determined. Clinical correlation is essential. Serum or plasma urea nitroge n measurement (mass/volume)Ordered By: Shaila Haq on 02-07-2023 Urea nitrogen [Mass/Vol] 13 mg/dL 7-18 [facility] Absolute lymphocyte countOrd ered By: Bernard Nugent on 01-22-2023 Lymphocytes Auto (Unsp spec) [#/Vol] 1.04 10*3/uL 0.83-4.51 [facility] Basophil percentageOrdered B y: Bernard Nugent on 01-22-2023 Basophils/100 WBC (Bld) 0.6 % 0-1 [facility] Bilirubin [Mass/Vol] 1.70 mg/dL 0.20-1.00 [facility] Comment on above: For patients on eltr ombopag therapy, use of Dimension [place] TBIL is not recommended. Chloride [Moles/Vol] 106 mmol/L 98-107 [facility] Eosinophils/100 WBC (Bld) 2.7 % 0-5 [facility] Glucose [Mass/Vol] 123 mg/dL 74-106 [facility] Comment on above: Fasting Glucose resu lt from 100 to 125 mg/dL suggests IMPAIRED HOMEOSTASIS per A.D.A. criteria. Neutrophils (Bld) [#/Vol] 4.7 10*3/uL 2.0-7.7 [facility] Neutrophils/100 WBC (Bld) 71.6 % 47-70 [facility] Potassium [Moles/Vol] 3.5 mmol/L 3.5-5.1 [facility] Protein [Mass/Vol] 6.6 g/dL 6.4-8.2 [facility] Sodium [Moles/Vol] 141 mmol/L 136-145 [facility] WBC (Bld) [#/Vol] 6.6 10*3/uL 4.4-11.0 [facility] Blood erythrocytes count (nu mber/volume)Ordered By: Bernard Nugent on 01-22-2023 RBC (Bld) [#/Vol] 4.62 10*6/uL 4.6-6.2 [facility] Blood hemoglobin measurement (mass/volume)Ordered By: Bernard Nugent on 01-22-2023 Hemoglobin (Bld) [Mass/Vol] 14.2 g/dL 13.0-16.5 [facility] Blood lymphocytes/100 leukoc ytesOrdered By: Bernard Nugent on 01-22-2023 Lymphocytes/100 WBC (Bld) 15.9 % 19-41 [facility] Blood monocytes/100 leukocyt esOrdered By: Bernard Nugent on 01-22-2023 Monocytes/100 WBC (Bld) 8.7 % 0-10 [facility] Blood platelet mean volumeOr dered By: Bernard Nugent on 01-22-2023 Platelet mean volume (Bld) [Entitic vol] 11.7 fL 6.2-12.0 [facility] Determination of erythrocyte mean corpuscular volume (MCV)Ordered By: Bernard Nugent on 01-22-2023 MCV (RBC) [Entitic vol] 89.8 fL 80-94 [facility] Hematocrit Auto (Bld) [Volum e fraction]Ordered By: Bernard Nugent on 01-22-2023 Hematocrit (Bld) [Volume fraction] 41.5 % 40-54 [facility] Laboratory - Chemistry and C hemistry - challengeOrdered By: Bernard Nugent on 01-22-2023 ALP [Catalytic activity/Vol] 133 U/L 45-117 [facility] ALT [Catalytic activity/Vol] 23 U/L 16-61 [facility] CO2 [Moles/Vol] 28.0 mmol/L 21.0-32.0 [facility] Globulin (S) [Mass/Vol] 3.4 g/dL 2.2-4.2 [facility] Urea nitrogen/Creatinine [Mass ratio] 7.7 mg/mg 10-20 [facility] Laboratory - Hematology and Cell countsOrdered By: Bernard Nugent on 01-22-2023 Erythrocyte distribution width (RBC) [Entitic vol] 47.2 fL 35.1-43.9 [facility] Erythrocyte distribution width (RBC) [Ratio] 14.3 % 11.6-14.6 [facility] Immature granulocytes/100 WBC (Bld) 0.500 % 0.0-0.9 [facility] Comment on above: IG% - Immature Granu locytes (promyelocytes, myelocytes and metamyelocytes) > 1% indicates that a LEFT SHIFT is Present. MCH (RBC) [Entitic mass] 30.7 pg 27.0-32.0 [facility] Nucleated RBC/100 WBC (Bld) [Ratio] 0 % 0-5 [facility] MCHC Auto (RBC) [Mass/Vol]Or dered By: Bernard Nugent on 01-22-2023 MCHC (RBC) [Mass/Vol] 34.2 g/dL 32-36 [facility] No Panel InformationOrdered By: Bernard Nugent on 01-22-2023 Estimated GFR (MDRD) Amer 54 mL/min >60 [facility] Comment on above: GFR Calc Estimated GFR (MDRD) Non-Af Amer 45 mL/min >60 [facility] Comment on above: Non- GFR Calc Thyroid Stimulating Hormone (TSH) 1.45 uIU/mL 0.358-3.74 [facility] Vitamin D 25-Hydroxy 45.6 ng/mL [facility] Comment on above: Vitamin D 25(OH) Sta tus Range Deficiency <20 ng/mL (50nmol/L) Insufficiency 20 - 30 ng/mL (50 - 75 nmol/L) Sufficiency 30 - 100 ng/mL (75 - 250 nmol/L) Toxicity >100 ng/mL (>250 nmol/L) Platelets bldOrdered By: Bernard Nugent on 01-22-2023 Platelets (Bld) [#/Vol] 179 10*3/uL 150-450 [facility] Serum or plasma albumin sita urement (mass/volume)Ordered By: Bernard Nugent on 01-22-2023 Albumin [Mass/Vol] 3.2 g/dL 3.2-5.0 [facility] Serum or plasma albumin/glob ulin mass ratioOrdered By: Bernard Nugent on 01-22-2023 Albumin/Globulin [Mass ratio] 0.9 {ratio} 0.9-2.4 [facility] Serum or plasma calcium sita urement (mass/volume)Ordered By: Bernard Nugent on 01-22-2023 Calcium [Mass/Vol] 8.2 mg/dL 8.5-10.1 [facility] Serum or plasma creatinine m easurement (mass/volume)Ordered By: Bernard Nugent on 01-22-2023 Creatinine [Mass/Vol] 1.56 mg/dL 0.70-1.30 [facility] Comment on above: The validity of the calculated GFR & GFRAA in patients over 70 years has not been determined. Clinical correlation is essential. Serum or plasma urea nitroge n measurement (mass/volume)Ordered By: Bernard Nugent on 01-22-2023 Urea nitrogen [Mass/Vol] 12 mg/dL 7-18 [facility] Thin prep Papanicolaou smear with manual screeningOrdered By: Bernard Nugent on 01-22-2023 Thin prep Papanicolaou smear with manual screening 21 U/L 15-37 [facility] Thin prep Papanicolaou smear with manual screening 7 5-15 [facility] Absolute lymphocyte countOrd ered By: Dr. Nugent on 11-06-2022 Lymphocytes Auto (Unsp spec) [#/Vol] 1.35 10*3/uL 0.83-4.51 [facility] Basophil percentageOrdered B y: Dr. Nugent on 11-06-2022 Basophils/100 WBC (Bld) 0.5 % 0-1 [facility] Bilirubin [Mass/Vol] 1.90 mg/dL 0.20-1.00 [facility] Comment on above: For patients on eltr ombopag therapy, use of Dimension [place] TBIL is not recommended. Chloride [Moles/Vol] 105 mmol/L 98-107 [facility] Eosinophils/100 WBC (Bld) 3.2 % 0-5 [facility] Glucose [Mass/Vol] 152 mg/dL 74-106 [facility] Comment on above: Fasting Glucose resu lt greater than or equal to 126 mg/dL suggests DIABETES MELLITUS per A.D.A. criteria. Neutrophils (Bld) [#/Vol] 5.9 10*3/uL 2.0-7.7 [facility] Neutrophils/100 WBC (Bld) 70.5 % 47-70 [facility] Potassium [Moles/Vol] 3.6 mmol/L 3.5-5.1 [facility] Protein [Mass/Vol] 7.3 g/dL 6.4-8.2 [facility] Sodium [Moles/Vol] 140 mmol/L 136-145 [facility] WBC (Bld) [#/Vol] 8.4 10*3/uL 4.4-11.0 [facility] Blood erythrocytes count (nu mber/volume)Ordered By: Dr. Nugent on 11-06-2022 RBC (Bld) [#/Vol] 5.00 10*6/uL 4.6-6.2 [facility] Blood hemoglobin measurement (mass/volume)Ordered By: Dr. Nugent on 11-06-2022 Hemoglobin (Bld) [Mass/Vol] 15.1 g/dL 13.0-16.5 [facility] Blood lymphocytes/100 leukoc ytesOrdered By: Dr. Nugent on 11-06-2022 Lymphocytes/100 WBC (Bld) 16.1 % 19-41 [facility] Blood monocytes/100 leukocyt esOrdered By: Dr. Nugent on 11-06-2022 Monocytes/100 WBC (Bld) 9.2 % 0-10 [facility] Blood platelet mean volumeOr dered By: Dr. Nugent on 11-06-2022 Platelet mean volume (Bld) [Entitic vol] 11.7 fL 6.2-12.0 [facility] Determination of erythrocyte mean corpuscular volume (MCV)Ordered By: Dr. Nugent on 11-06-2022 MCV (RBC) [Entitic vol] 88.6 fL 80-94 [facility] Hematocrit Auto (Bld) [Volum e fraction]Ordered By: Dr. Nugent on 11-06-2022 Hematocrit (Bld) [Volume fraction] 44.3 % 40-54 [facility] Laboratory - Chemistry and C hemistry - challengeOrdered By: Dr. Nugent on 11-06-2022 ALP [Catalytic activity/Vol] 151 U/L 45-117 [facility] ALT [Catalytic activity/Vol] 21 U/L 16-61 [facility] CO2 [Moles/Vol] 31.0 mmol/L 21.0-32.0 [facility] Globulin (S) [Mass/Vol] 3.8 g/dL 2.2-4.2 [facility] Urea nitrogen/Creatinine [Mass ratio] 9.7 mg/mg 10-20 [facility] Laboratory - Hematology and Cell countsOrdered By: Dr. Nugent on 11-06-2022 Erythrocyte distribution width (RBC) [Entitic vol] 45.5 fL 35.1-43.9 [facility] Erythrocyte distribution width (RBC) [Ratio] 14.1 % 11.6-14.6 [facility] Immature granulocytes/100 WBC (Bld) 0.500 % 0.0-0.9 [facility] Comment on above: IG% - Immature Granu locytes (promyelocytes, myelocytes and metamyelocytes) > 1% indicates that a LEFT SHIFT is Present. MCH (RBC) [Entitic mass] 30.2 pg 27.0-32.0 [facility] Nucleated RBC/100 WBC (Bld) [Ratio] 0 % 0-5 [facility] MCHC Auto (RBC) [Mass/Vol]Or dered By: Dr. Nugent on 11-06-2022 MCHC (RBC) [Mass/Vol] 34.1 g/dL 32-36 [facility] No Panel InformationOrdered By: Dr. Nugent on 11-06-2022 Estimated GFR (MDRD) Amer 55 mL/min >60 [facility] Comment on above: GFR Calc Estimated GFR (MDRD) Non-Af Amer 45 mL/min >60 [facility] Comment on above: Non- GFR Calc Thyroid Stimulating Hormone (TSH) 2.03 uIU/mL 0.358-3.74 [facility] Vitamin D 25-Hydroxy 49.2 ng/mL [facility] Comment on above: Vitamin D 25(OH) Sta tus Range Deficiency <20 ng/mL (50nmol/L) Insufficiency 20 - 30 ng/mL (50 - 75 nmol/L) Sufficiency 30 - 100 ng/mL (75 - 250 nmol/L) Toxicity >100 ng/mL (>250 nmol/L) Platelets bldOrdered By: Dr. Nugent on 11-06-2022 Platelets (Bld) [#/Vol] 185 10*3/uL 150-450 [facility] Serum or plasma albumin sita urement (mass/volume)Ordered By: Dr. Nugent on 11-06-2022 Albumin [Mass/Vol] 3.5 g/dL 3.2-5.0 [facility] Serum or plasma albumin/glob ulin mass ratioOrdered By: Dr. Nugent on 11-06-2022 Albumin/Globulin [Mass ratio] 0.9 {ratio} 0.9-2.4 [facility] Serum or plasma calcium sita urement (mass/volume)Ordered By: Dr. Nugent on 11-06-2022 Calcium [Mass/Vol] 8.7 mg/dL 8.5-10.1 [facility] Serum or plasma creatinine m easurement (mass/volume)Ordered By: Dr. Nugent on 11-06-2022 Creatinine [Mass/Vol] 1.55 mg/dL 0.70-1.30 [facility] Comment on above: The validity of the calculated GFR & GFRAA in patients over 70 years has not been determined. Clinical correlation is essential. Serum or plasma urea nitroge n measurement (mass/volume)Ordered By: Dr. Nugent on 11-06-2022 Urea nitrogen [Mass/Vol] 15 mg/dL 7-18 [facility] Thin prep Papanicolaou smear with manual screeningOrdered By: Dr. Nugent on 11-06-2022 Thin prep Papanicolaou smear with manual screening 20 U/L 15-37 [facility] Thin prep Papanicolaou smear with manual screening 4 5-15 [facility] Basophil percentageOrdered B y: Evin Sarmiento on 10-22-2022 Chloride [Moles/Vol] 105 mmol/L 98-107 [facility] Glucose [Mass/Vol] 216 mg/dL 74-106 [facility] Comment on above: Glucose result great er than or equal to 200 mg/dLsuggests DIABETES MELLITUS per A.D.A. criteria. Potassium [Moles/Vol] 3.6 mmol/L 3.5-5.1 [facility] Sodium [Moles/Vol] 138 mmol/L 136-145 [facility] WBC (Bld) [#/Vol] 10.3 10*3/uL 4.4-11.0 [facility] Blood erythrocytes count (nu mber/volume)Ordered By: Evin Sarmiento on 10-22-2022 RBC (Bld) [#/Vol] 4.70 10*6/uL 4.6-6.2 [facility] Blood hemoglobin measurement (mass/volume)Ordered By: Evin Sarmiento on 10-22-2022 Hemoglobin (Bld) [Mass/Vol] 14.2 g/dL 13.0-16.5 [facility] Blood platelet mean volumeOr dered By: Evin Sarmiento on 10-22-2022 Platelet mean volume (Bld) [Entitic vol] 11.3 fL 6.2-12.0 [facility] Determination of erythrocyte mean corpuscular volume (MCV)Ordered By: Evin Sarmiento on 10-22-2022 MCV (RBC) [Entitic vol] 90.0 fL 80-94 [facility] Hematocrit Auto (Bld) [Volum e fraction]Ordered By: Evin Sarmiento on 10-22-2022 Hematocrit (Bld) [Volume fraction] 42.3 % 40-54 [facility] Laboratory - Chemistry and C hemistry - challengeOrdered By: Evin Sarmiento on 10-22-2022 CO2 [Moles/Vol] 29.0 mmol/L 21.0-32.0 [facility] Natriuretic peptide B (Bld) [Mass/Vol] 298.6 pg/mL 0-100 [facility] Urea nitrogen/Creatinine [Mass ratio] 10.2 mg/mg 10-20 [facility] Laboratory - Hematology and Cell countsOrdered By: Evin Sarmiento on 10-22-2022 Erythrocyte distribution width (RBC) [Entitic vol] 47.2 fL 35.1-43.9 [facility] Erythrocyte distribution width (RBC) [Ratio] 14.3 % 11.6-14.6 [facility] MCH (RBC) [Entitic mass] 30.2 pg 27.0-32.0 [facility] MCHC Auto (RBC) [Mass/Vol]Or dered By: Evin Sarmiento on 10-22-2022 MCHC (RBC) [Mass/Vol] 33.6 g/dL 32-36 [facility] No Panel InformationOrdered By: Evin Sarmiento on 10-22-2022 Estimated GFR (MDRD) Amer 50 mL/min >60 [facility] Comment on above: GFR Calc Estimated GFR (MDRD) Non-Af Amer 42 mL/min >60 [facility] Comment on above: Non- GFR Calc Platelets bldOrdered By: Ignacio Sarmiento on 10-22-2022 Platelets (Bld) [#/Vol] 186 10*3/uL 150-450 [facility] Serum or plasma calcium sita urement (mass/volume)Ordered By: Evin Sarmiento on 10-22-2022 Calcium [Mass/Vol] 8.2 mg/dL 8.5-10.1 [facility] Serum or plasma creatinine m easurement (mass/volume)Ordered By: Evin Sarmiento on 10-22-2022 Creatinine [Mass/Vol] 1.67 mg/dL 0.70-1.30 [facility] Comment on above: The validity of the calculated GFR & GFRAA in patients over 70 years has not been determined. Clinical correlation is essential. Serum or plasma urea nitroge n measurement (mass/volume)Ordered By: Evin Sarmiento on 10-22-2022 Urea nitrogen [Mass/Vol] 17 mg/dL 7-18 [facility] Thin prep Papanicolaou smear with manual screeningOrdered By: Evin Sarmiento on 10-22-2022 Thin prep Papanicolaou smear with manual screening 4 5-15 [facility] Basophil percentageOrdered B y: Dr. Tobias on 09-24-2022 Chloride [Moles/Vol] 104 mmol/L 98-107 [facility] Glucose [Mass/Vol] 61 mg/dL 74-106 [facility] Potassium [Moles/Vol] 3.0 mmol/L 3.5-5.1 [facility] Sodium [Moles/Vol] 135 mmol/L 136-145 [facility] WBC (Bld) [#/Vol] 12.7 10*3/uL 4.4-11.0 [facility] Blood erythrocytes count (nu mber/volume)Ordered By: Dr. Tobias on 09-24-2022 RBC (Bld) [#/Vol] 4.83 10*6/uL 4.6-6.2 [facility] Blood hemoglobin measurement (mass/volume)Ordered By: Dr. Tobias on 09-24-2022 Hemoglobin (Bld) [Mass/Vol] 14.3 g/dL 13.0-16.5 [facility] Blood platelet mean volumeOr dered By: Dr. Tobias on 09-24-2022 Platelet mean volume (Bld) [Entitic vol] 11.6 fL 6.2-12.0 [facility] Determination of erythrocyte mean corpuscular volume (MCV)Ordered By: Dr. Tobias on 09-24-2022 MCV (RBC) [Entitic vol] 87.4 fL 80-94 [facility] Glucose Glucometer (BldC) [M ass/Vol]Ordered By: Dr. Tobias on 09-24-2022 Glucose [Mass/Vol] 182 mg/dL 74-106 [facility] Comment on above: MANAGEMENT OF PATIEN T CARE PER NURSING PROTOCOL Hematocrit Auto (Bld) [Volum e fraction]Ordered By: Dr. Tobias on 09-24-2022 Hematocrit (Bld) [Volume fraction] 42.2 % 40-54 [facility] Laboratory - Chemistry and C hemistry - challengeOrdered By: Dr. Tobias on 09-24-2022 CO2 [Moles/Vol] 22.0 mmol/L 21.0-32.0 [facility] Urea nitrogen/Creatinine [Mass ratio] 12.4 mg/mg 10-20 [facility] Laboratory - Hematology and Cell countsOrdered By: Dr. Tobias on 09-24-2022 Erythrocyte distribution width (RBC) [Entitic vol] 44.3 fL 35.1-43.9 [facility] Erythrocyte distribution width (RBC) [Ratio] 14.0 % 11.6-14.6 [facility] MCH (RBC) [Entitic mass] 29.6 pg 27.0-32.0 [facility] MCHC Auto (RBC) [Mass/Vol]Or dered By: Dr. Tobias on 09-24-2022 MCHC (RBC) [Mass/Vol] 33.9 g/dL 32-36 [facility] No Panel InformationOrdered By: Dr. Tobias on 09-24-2022 Estimated Creatinine Clearance Calc 30.93 ml/min [facility] Estimated GFR (MDRD) Amer 47 mL/min >60 [facility] Comment on above: GFR Calc Estimated GFR (MDRD) Non-Af Amer 39 mL/min >60 [facility] Comment on above: Non- GFR Calc Platelets bldOrdered By: Dr. Tobias on 09-24-2022 Platelets (Bld) [#/Vol] 212 10*3/uL 150-450 [facility] Serum or plasma calcium sita urement (mass/volume)Ordered By: Dr. Tobias on 09-24-2022 Calcium [Mass/Vol] 8.5 mg/dL 8.5-10.1 [facility] Serum or plasma creatinine m easurement (mass/volume)Ordered By: Dr. Tobias on 09-24-2022 Creatinine [Mass/Vol] 1.77 mg/dL 0.70-1.30 [facility] Comment on above: The validity of the calculated GFR & GFRAA in patients over 70 years has not been determined. Clinical correlation is essential. Serum or plasma urea nitroge n measurement (mass/volume)Ordered By: Dr. Tobias on 09-24-2022 Urea nitrogen [Mass/Vol] 22 mg/dL 7-18 [facility] Thin prep Papanicolaou smear with manual screeningOrdered By: Dr. Tobias on 09-24-2022 Thin prep Papanicolaou smear with manual screening 9 5-15 [facility] Basophil percentageOrdered B y: Dr. Tobias on 09-19-2022 Basophil percentage 0-5 SEEN /hpf 0-5 [facility] Bilirubin Test strip Ql (U)O rdered By: Dr. Tobias on 09-19-2022 Bilirubin Ql (U) Negative Negative [facility] Ketones Test strip Ql (U)Ord ered By: Dr. Tobias on 09-19-2022 Ketones Ql (U) Negative Negative [facility] Mucus LM Ql (Urine sed)Order ed By: Dr. Tobias on 09-19-2022 Mucus Ql (Urine sed) 0 SEEN /hpf [facility] Nitrite Test strip Ql (U)Ord ered By: Dr. Tobias on 09-19-2022 Nitrite Ql (U) Negative Negative [facility] Protein Test strip Ql (U)Ord ered By: Dr. Tobias on 09-19-2022 Protein Ql (U) 30 mg/dl Negative [facility] Squamous epithelial cells de tection in urine sediment by light microscopyOrdered By: Dr. Tobias on 09-19-2022 Epithelial cells.squamous LM Ql (Urine sed) 0 SEEN /hpf 0-5 [facility] Urine blood detectionOrdered By: Dr. Tobias on 09-19-2022 RBC Ql (U) 10 /ul Negative [facility] RBC Ql (U) 0-5 SEEN /hpf 0-5 [facility] Urine clarityOrdered By: Dr. Tobias on 09-19-2022 Clarity (U) Sl. Cloudy Clear [facility] Urine color determinationOrd ered By: Dr. Tobias on 09-19-2022 Color (U) Yellow Yellow [facility] Urine glucose detectionOrder ed By: Dr. Tobias on 09-19-2022 Glucose Ql (U) Normal mg/dl Normal [facility] Urine leukocyte esterase det ection by dipstickOrdered By: Dr. Tobias on 09-19-2022 Leukocyte esterase Test strip Ql (U) 25 /ul Negative [facility] Urine pHOrdered By: Dr. Stephani buck on 09-19-2022 pH (U) 6.5 [pH] 5.0 - 8.0 [facility] Urine sediment bacteria coun t by microscopy (number/high power field)Ordered By: Dr. Tobias on 09-19-2022 Bacteria LM.HPF (Urine sed) [#/Area] 0 /[HPF] None Seen [facility] Urine specific gravity measu rementOrdered By: Dr. Tobias on 09-19-2022 Specific gravity (U) [Rel density] 1.010 1.002-1.030 [facility] Urobilinogen Auto test strip Ql (U)Ordered By: Dr. Tobias on 09-19-2022 Urobilinogen Ql (U) Normal mg/dl Normal [facility] Basophil percentageOrdered B y: Dr. Haq on 09-04-2022 Chloride [Moles/Vol] 101 mmol/L 98-107 [facility] Glucose [Mass/Vol] 148 mg/dL 74-106 [facility] Comment on above: Fasting Glucose resu lt greater than or equal to 126 mg/dL suggests DIABETES MELLITUS per A.D.A. criteria. Potassium [Moles/Vol] 3.4 mmol/L 3.5-5.1 [facility] Sodium [Moles/Vol] 135 mmol/L 136-145 [facility] Laboratory - Chemistry and C hemistry - challengeOrdered By: Dr. Haq on 09-04-2022 CO2 [Moles/Vol] 27.0 mmol/L 21.0-32.0 [facility] Urea nitrogen/Creatinine [Mass ratio] 8.4 mg/mg 10-20 [facility] No Panel InformationOrdered By: Dr. Haq on 09-04-2022 Estimated GFR (MDRD) Amer 50 mL/min >60 [facility] Comment on above: GFR Calc Estimated GFR (MDRD) Non-Af Amer 42 mL/min >60 [facility] Comment on above: Non- GFR Calc Serum or plasma calcium sita urement (mass/volume)Ordered By: Dr. Haq on 09-04-2022 Calcium [Mass/Vol] 8.8 mg/dL 8.5-10.1 [facility] Serum or plasma creatinine m easurement (mass/volume)Ordered By: Dr. Haq on 09-04-2022 Creatinine [Mass/Vol] 1.67 mg/dL 0.70-1.30 [facility] Comment on above: The validity of the calculated GFR & GFRAA in patients over 70 years has not been determined. Clinical correlation is essential. Serum or plasma urea nitroge n measurement (mass/volume)Ordered By: Dr. Haq on 09-04-2022 Urea nitrogen [Mass/Vol] 14 mg/dL - [facility] Thin prep Papanicolaou smear with manual screeningOrdered By: Dr. Haq on 09-04-2022 Thin prep Papanicolaou smear with manual screening 7 5-15 [facility] Absolute lymphocyte countOrd ered By: Dr. Haq on 08-08-2022 Lymphocytes Auto (Unsp spec) [#/Vol] 1.56 10*3/uL 0.83-4.51 [facility] Basophil percentageOrdered B y: Dr. Haq on 08-08-2022 Basophils/100 WBC (Bld) 0.3 % 0-1 [facility] Bilirubin [Mass/Vol] 1.60 mg/dL 0.20-1.00 [facility] Comment on above: For patients on eltr ombopag therapy, use of Dimension [place] TBIL is not recommended. Chloride [Moles/Vol] 97 mmol/L 98-107 [facility] Eosinophils/100 WBC (Bld) 2.1 % 0-5 [facility] Glucose [Mass/Vol] 309 mg/dL 74-106 [facility] Comment on above: Glucose result great er than or equal to 200 mg/dLsuggests DIABETES MELLITUS per A.D.A. criteria. Neutrophils (Bld) [#/Vol] 6.0 10*3/uL 2.0-7.7 [facility] Neutrophils/100 WBC (Bld) 69.0 % 47-70 [facility] Potassium [Moles/Vol] 3.4 mmol/L 3.5-5.1 [facility] Protein [Mass/Vol] 6.9 g/dL 6.4-8.2 [facility] Sodium [Moles/Vol] 134 mmol/L 136-145 [facility] WBC (Bld) [#/Vol] 8.7 10*3/uL 4.4-11.0 [facility] Blood erythrocytes count (nu mber/volume)Ordered By: Dr. Haq on 08-08-2022 RBC (Bld) [#/Vol] 4.59 10*6/uL 4.6-6.2 [facility] Blood hemoglobin measurement (mass/volume)Ordered By: Dr. Haq on 08-08-2022 Hemoglobin (Bld) [Mass/Vol] 13.8 g/dL 13.0-16.5 [facility] Blood lymphocytes/100 leukoc ytesOrdered By: Dr. Haq on 08-08-2022 Lymphocytes/100 WBC (Bld) 17.9 % 19-41 [facility] Blood monocytes/100 leukocyt esOrdered By: Dr. Haq on 08-08-2022 Monocytes/100 WBC (Bld) 10.2 % 0-10 [facility] Blood platelet mean volumeOr dered By: Dr. Haq on 08-08-2022 Platelet mean volume (Bld) [Entitic vol] 12.6 fL 6.2-12.0 [facility] Determination of erythrocyte mean corpuscular volume (MCV)Ordered By: Dr. Haq on 08-08-2022 MCV (RBC) [Entitic vol] 88.2 fL 80-94 [facility] Hematocrit Auto (Bld) [Volum e fraction]Ordered By: Dr. Haq on 08-08-2022 Hematocrit (Bld) [Volume fraction] 40.5 % 40-54 [facility] Laboratory - Chemistry and C hemistry - challengeOrdered By: Dr. Haq on 08-08-2022 ALP [Catalytic activity/Vol] 156 U/L 45-117 [facility] ALT [Catalytic activity/Vol] 19 U/L 16-61 [facility] CO2 [Moles/Vol] 31.0 mmol/L 21.0-32.0 [facility] Globulin (S) [Mass/Vol] 3.6 g/dL 2.2-4.2 [facility] Urea nitrogen/Creatinine [Mass ratio] 9.5 mg/mg 10-20 [facility] Laboratory - Hematology and Cell countsOrdered By: Dr. Haq on 08-08-2022 Erythrocyte distribution width (RBC) [Entitic vol] 43.8 fL 35.1-43.9 [facility] Erythrocyte distribution width (RBC) [Ratio] 13.8 % 11.6-14.6 [facility] Immature granulocytes/100 WBC (Bld) 0.500 % 0.0-0.9 [facility] Comment on above: IG% - Immature Granu locytes (promyelocytes, myelocytes and metamyelocytes) > 1% indicates that a LEFT SHIFT is Present. MCH (RBC) [Entitic mass] 30.1 pg 27.0-32.0 [facility] Nucleated RBC/100 WBC (Bld) [Ratio] 0 % 0-5 [facility] MCHC Auto (RBC) [Mass/Vol]Or dered By: Dr. Haq on 08-08-2022 MCHC (RBC) [Mass/Vol] 34.1 g/dL 32-36 [facility] No Panel InformationOrdered By: Dr. Haq on 08-08-2022 Estimated GFR (MDRD) Amer 50 mL/min >60 [facility] Comment on above: GFR Calc Estimated GFR (MDRD) Non-Af Amer 41 mL/min >60 [facility] Comment on above: Non- GFR Calc Thyroid Stimulating Hormone (TSH) 2.57 uIU/mL 0.358-3.74 [facility] Vitamin D 25-Hydroxy 43.9 ng/mL [facility] Comment on above: Vitamin D 25(OH) Sta tus Range Deficiency <20 ng/mL (50nmol/L) Insufficiency 20 - 30 ng/mL (50 - 75 nmol/L) Sufficiency 30 - 100 ng/mL (75 - 250 nmol/L) Toxicity >100 ng/mL (>250 nmol/L) Platelets bldOrdered By: Dr. Haq on 08-08-2022 Platelets (Bld) [#/Vol] 165 10*3/uL 150-450 [facility] Serum or plasma albumin sita urement (mass/volume)Ordered By: Dr. Haq on 08-08-2022 Albumin [Mass/Vol] 3.3 g/dL 3.2-5.0 [facility] Serum or plasma albumin/glob ulin mass ratioOrdered By: Dr. Haq on 08-08-2022 Albumin/Globulin [Mass ratio] 0.9 {ratio} 0.9-2.4 [facility] Serum or plasma calcium sita urement (mass/volume)Ordered By: Dr. Haq on 08-08-2022 Calcium [Mass/Vol] 8.5 mg/dL 8.5-10.1 [facility] Serum or plasma creatinine m easurement (mass/volume)Ordered By: Dr. Haq on 08-08-2022 Creatinine [Mass/Vol] 1.69 mg/dL 0.70-1.30 [facility] Comment on above: The validity of the calculated GFR & GFRAA in patients over 70 years has not been determined. Clinical correlation is essential. Serum or plasma urea nitroge n measurement (mass/volume)Ordered By: Dr. Haq on 08-08-2022 Urea nitrogen [Mass/Vol] 16 mg/dL 7-18 [facility] Thin prep Papanicolaou smear with manual screeningOrdered By: Dr. Haq on 08-08-2022 Thin prep Papanicolaou smear with manual screening 15 U/L 15-37 [facility] Thin prep Papanicolaou smear with manual screening 6 5-15 [facility] Absolute lymphocyte countOrd ered By: Evin Sarmiento on 07-20-2022 Lymphocytes Auto (Unsp spec) [#/Vol] 1.15 10*3/uL 0.83-4.51 [facility] Basophil percentageOrdered B y: Evin Sarmiento on 07-20-2022 Basophils/100 WBC (Bld) 0.4 % 0-1 [facility] Chloride [Moles/Vol] 97 mmol/L 98-107 [facility] Eosinophils/100 WBC (Bld) 1.9 % 0-5 [facility] Glucose [Mass/Vol] 197 mg/dL 74-106 [facility] Comment on above: Fasting Glucose resu lt greater than or equal to 126 mg/dL suggests DIABETES MELLITUS per A.D.A. criteria. Neutrophils (Bld) [#/Vol] 6.1 10*3/uL 2.0-7.7 [facility] Neutrophils/100 WBC (Bld) 75.5 % 47-70 [facility] Potassium [Moles/Vol] 3.3 mmol/L 3.5-5.1 [facility] Sodium [Moles/Vol] 137 mmol/L 136-145 [facility] WBC (Bld) [#/Vol] 8.0 10*3/uL 4.4-11.0 [facility] Blood erythrocytes count (nu mber/volume)Ordered By: Evin Sarmiento on 07-20-2022 RBC (Bld) [#/Vol] 5.03 10*6/uL 4.6-6.2 [facility] Blood hemoglobin measurement (mass/volume)Ordered By: Evin Sarmiento on 07-20-2022 Hemoglobin (Bld) [Mass/Vol] 15.0 g/dL 13.0-16.5 [facility] Blood lymphocytes/100 leukoc ytesOrdered By: Evin Sarmiento on 07-20-2022 Lymphocytes/100 WBC (Bld) 14.3 % 19-41 [facility] Blood monocytes/100 leukocyt esOrdered By: Evin Sarmiento on 07-20-2022 Monocytes/100 WBC (Bld) 7.5 % 0-10 [facility] Blood platelet mean volumeOr dered By: Evin Sarmiento on 07-20-2022 Platelet mean volume (Bld) [Entitic vol] 12.4 fL 6.2-12.0 [facility] Determination of erythrocyte mean corpuscular volume (MCV)Ordered By: Evin Sarmiento on 07-20-2022 MCV (RBC) [Entitic vol] 87.5 fL 80-94 [facility] Hematocrit Auto (Bld) [Volum e fraction]Ordered By: Evin Sarmiento on 07-20-2022 Hematocrit (Bld) [Volume fraction] 44.0 % 40-54 [facility] Laboratory - Chemistry and C hemistry - challengeOrdered By: Evin Sarmiento on 07-20-2022 CO2 [Moles/Vol] 31.0 mmol/L 21.0-32.0 [facility] Urea nitrogen/Creatinine [Mass ratio] 10.9 mg/mg 10-20 [facility] Laboratory - Chemistry and C hemistry - challengeOrdered By: Dr. Haq on 07-20-2022 Natriuretic peptide B (Bld) [Mass/Vol] 96.3 pg/mL 0-100 [facility] Laboratory - Hematology and Cell countsOrdered By: Evin Sarmiento on 07-20-2022 Erythrocyte distribution width (RBC) [Entitic vol] 43.6 fL 35.1-43.9 [facility] Erythrocyte distribution width (RBC) [Ratio] 13.8 % 11.6-14.6 [facility] Immature granulocytes/100 WBC (Bld) 0.400 % 0.0-0.9 [facility] Comment on above: IG% - Immature Granu locytes (promyelocytes, myelocytes and metamyelocytes) > 1% indicates that a LEFT SHIFT is Present. MCH (RBC) [Entitic mass] 29.8 pg 27.0-32.0 [facility] Nucleated RBC/100 WBC (Bld) [Ratio] 0 % 0-5 [facility] MCHC Auto (RBC) [Mass/Vol]Or dered By: Evin Sarmiento on 07-20-2022 MCHC (RBC) [Mass/Vol] 34.1 g/dL 32-36 [facility] No Panel InformationOrdered By: Evin Sarmiento on 07-20-2022 Estimated GFR (MDRD) Amer 54 mL/min >60 [facility] Comment on above: GFR Calc Estimated GFR (MDRD) Non-Af Amer 45 mL/min >60 [facility] Comment on above: Non- GFR Calc No Panel InformationOrdered By: Dr. Haq on 07-20-2022 Parathyroid Hormone (Intact) 110.2 pg/mL 18.4-80.1 [facility] Platelets bldOrdered By: Ignacio Sarmiento on 07-20-2022 Platelets (Bld) [#/Vol] 206 10*3/uL 150-450 [facility] Serum or plasma albumin sita urement (mass/volume)Ordered By: Evin Sarmiento on 07-20-2022 Albumin [Mass/Vol] 3.3 g/dL 3.2-5.0 [facility] Serum or plasma calcium sita urement (mass/volume)Ordered By: Evin Sarmiento on 07-20-2022 Calcium [Mass/Vol] 8.9 mg/dL 8.5-10.1 [facility] Serum or plasma creatinine m easurement (mass/volume)Ordered By: Evin Sarmiento on 07-20-2022 Creatinine [Mass/Vol] 1.56 mg/dL 0.70-1.30 [facility] Comment on above: The validity of the calculated GFR & GFRAA in patients over 70 years has not been determined. Clinical correlation is essential. Serum or plasma urea nitroge n measurement (mass/volume)Ordered By: Evin Sarmiento on 07-20-2022 Urea nitrogen [Mass/Vol] 17 mg/dL 7-18 [facility] Thin prep Papanicolaou smear with manual screeningOrdered By: Evin Sarmiento on 07-20-2022 Thin prep Papanicolaou smear with manual screening 9 5-15 [facility] Basophil percentageon 2021 Chloride [Moles/Vol] 99 mmol/L 98-107 [facility] Work Phone: Glucose [Mass/Vol] 227 mg/dL 74-106 [facility] Work Phone: Comment on above: Glucose result great er than or equal to 200 mg/dLsuggests DIABETES MELLITUS per A.D.A. criteria. Potassium [Moles/Vol] 3.5 mmol/L 3.5-5.1 [facility] Work Phone: Sodium [Moles/Vol] 139 mmol/L 136-145 [facility] Work Phone: Laboratory - Chemistry and C hemistry - challengeon 02-26-2022 CO2 [Moles/Vol] 31.0 mmol/L 21.0-32.0 [facility] Work Phone: Urea nitrogen/Creatinine [Mass ratio] 8.0 mg/mg 10-20 [facility] Work Phone: No Panel Informationon 02-26 Estimated GFR (MDRD) Amer 52 mL/min >60 [facility] Work Phone: Comment on above: GFR Calc Estimated GFR (MDRD) Non-Af Amer 43 mL/min >60 [facility] Work Phone: Comment on above: Non- GFR Calc Serum or plasma calcium sita urement (mass/volume)on 02-26-2022 Calcium [Mass/Vol] 8.7 mg/dL 8.5-10.1 [facility] Work Phone: Serum or plasma creatinine m easurement (mass/volume)on 02-26-2022 Creatinine [Mass/Vol] 1.63 mg/dL 0.70-1.30 [facility] Work Phone: Comment on above: The validity of the calculated GFR & GFRAA in patients over 70 years has not been determined. Clinical correlation is essential. Serum or plasma urea nitroge n measurement (mass/volume)on 02-26-2022 Urea nitrogen [Mass/Vol] 13 mg/dL 7-18 [facility] Work Phone: Thin prep Papanicolaou smear with manual screeningon 02-26-2022 Thin prep Papanicolaou smear with manual screening 9 5-15 [facility] Work Phone: Absolute lymphocyte counton 02-04-2022 Lymphocytes Auto (Unsp spec) [#/Vol] 1.28 10*3/uL 0.83-4.51 [facility] Work Phone: Basophil percentageon 2021 Basophils/100 WBC (Bld) 0.4 % 0-1 [facility] Work Phone: Chloride [Moles/Vol] 103 mmol/L 98-107 [facility] Work Phone: Eosinophils/100 WBC (Bld) 1.2 % 0-5 [facility] Work Phone: [phone] Glucose [Mass/Vol] 204 mg/dL 74-106 [facility] Work Phone: Comment on above: Glucose result great er than or equal to 200 mg/dLsuggests DIABETES MELLITUS per A.D.A. criteria. Neutrophils (Bld) [#/Vol] 8.8 10*3/uL 2.0-7.7 [facility] Work Phone: Neutrophils/100 WBC (Bld) 78.6 % 47-70 [facility] Work Phone: Potassium [Moles/Vol] 3.9 mmol/L 3.5-5.1 [facility] Work Phone: [phone] Sodium [Moles/Vol] 138 mmol/L 136-145 [facility] Work Phone: [phone] WBC (Bld) [#/Vol] 11.2 10*3/uL 4.4-11.0 [facility]: [phone] Blood erythrocytes count (nu mber/volume)on 02-04-2022 RBC (Bld) [#/Vol] 4.32 10*6/uL 4.6-6.2 [facility] Work Phone: [phone] Blood hemoglobin measurement (mass/volume)on 02-04-2022 Hemoglobin (Bld) [Mass/Vol] 13.2 g/dL 13.0-16.5 [facility] Work Phone: Blood lymphocytes/100 leukoc yteson 02-04-2022 Lymphocytes/100 WBC (Bld) 11.4 % 19-41 [facility] Work Phone: Blood monocytes/100 leukocyt eson 02-04-2022 Monocytes/100 WBC (Bld) 8.0 % 0-10 [facility] Work Phone: Blood platelet mean volumeon 02-04-2022 Platelet mean volume (Bld) [Entitic vol] 11.3 fL 6.2-12.0 [facility] Work Phone: Determination of erythrocyte mean corpuscular volume (MCV)on 02-04-2022 MCV (RBC) [Entitic vol] 88.0 fL 80-94 [facility] Work Phone: Hematocrit Auto (Bld) [Volum e fraction]on 02-04-2022 Hematocrit (Bld) [Volume fraction] 38.0 % 40-54 [facility] Work Phone: Laboratory - Chemistry and C hemistry - challengeon 02-04-2022 CO2 [Moles/Vol] 28.0 mmol/L 21.0-32.0 [facility] Work Phone: Natriuretic peptide B (Bld) [Mass/Vol] 256.6 pg/mL 0-100 [facility] Work Phone: Urea nitrogen/Creatinine [Mass ratio] 8.0 mg/mg 10-20 [facility] Work Phone: Laboratory - Hematology and Cell countson 02-04-2022 Erythrocyte distribution width (RBC) [Entitic vol] 43.9 fL 35.1-43.9 [facility] Work Phone: Erythrocyte distribution width (RBC) [Ratio] 13.6 % 11.6-14.6 [facility] Work Phone: Immature granulocytes/100 WBC (Bld) 0.400 % 0.0-0.9 [facility] Work Phone: Comment on above: IG% - Immature Granu locytes (promyelocytes, myelocytes and metamyelocytes) > 1% indicates that a LEFT SHIFT is Present. MCH (RBC) [Entitic mass] 30.6 pg 27.0-32.0 [facility] Work Phone: Nucleated RBC/100 WBC (Bld) [Ratio] 0 % 0-5 [facility] Work Phone: MCHC Auto (RBC) [Mass/Vol]on 02-04-2022 MCHC (RBC) [Mass/Vol] 34.7 g/dL 32-36 [facility]: No Panel Informationon 02-04 Estimated Creatinine Clearance Calc 33.80 ml/min [facility] Work Phone: Estimated GFR (MDRD) Amer 52 mL/min >60 [facility] Work Phone: Comment on above: GFR Calc Estimated GFR (MDRD) Non-Af Amer 43 mL/min >60 [facility] Work Phone: Comment on above: Non- GFR Calc Troponin I High Sensitivity 22 pg/mL 3.0-78.0 [facility] Work Phone: Comment on above: Please Note: [place] t Units and Gender Specific Reference Ranges. For more information see Policy Stat Procedure [place] High Sensitivity Troponin (TNIH) and attachments. Platelets bldon 02-04-2022 Platelets (Bld) [#/Vol] 203 10*3/uL 150-450 [facility] Work Phone: Serum or plasma calcium sita urement (mass/volume)on 02-04-2022 Calcium [Mass/Vol] 8.7 mg/dL 8.5-10.1 [facility] Work Phone: Serum or plasma creatinine m easurement (mass/volume)on 02-04-2022 Creatinine [Mass/Vol] 1.62 mg/dL 0.70-1.30 [facility] Work Phone: Comment on above: The validity of the calculated GFR & GFRAA in patients over 70 years has not been determined. Clinical correlation is essential. Serum or plasma urea nitroge n measurement (mass/volume)on 02-04-2022 Urea nitrogen [Mass/Vol] 13 mg/dL - [facility] Work Phone: Thin prep Papanicolaou smear with manual screeningon 02-04-2022 Thin prep Papanicolaou smear with manual screening 7 5-15 [facility] Work Phone: Absolute lymphocyte counton 01-18-2022 Lymphocytes Auto (Unsp spec) [#/Vol] 1.28 10*3/uL 0.83-4.51 [facility] Work Phone: Basophil percentageon 2021 Basophils/100 WBC (Bld) 0.6 % 0-1 [facility] Work Phone: Bilirubin [Mass/Vol] 1.70 mg/dL 0.20-1.00 [facility] Work Phone: Comment on above: For patients on eltr ombopag therapy, use of Dimension [place] TBIL is not recommended. Chloride [Moles/Vol] 98 mmol/L 98-107 [facility] Work Phone: Eosinophils/100 WBC (Bld) 2.7 % 0-5 [facility] Work Phone: Glucose [Mass/Vol] 193 mg/dL 74-106 [facility] Work Phone: Comment on above: Fasting Glucose resu lt greater than or equal to 126 mg/dL suggests DIABETES MELLITUS per A.D.A. criteria. Neutrophils (Bld) [#/Vol] 6.6 10*3/uL 2.0-7.7 [facility] Work Phone: Neutrophils/100 WBC (Bld) 72.6 % 47-70 [facility] Work Phone: Potassium [Moles/Vol] 3.4 mmol/L 3.5-5.1 [facility] Work Phone: Protein [Mass/Vol] 6.8 g/dL 6.4-8.2 [facility] Work Phone: [phone] Sodium [Moles/Vol] 136 mmol/L 136-145 [facility] Work Phone: [phone] WBC (Bld) [#/Vol] 9.0 10*3/uL 4.4-11.0 [facility] Work Phone: Blood erythrocytes count (nu mber/volume)on 01-18-2022 RBC (Bld) [#/Vol] 4.33 10*6/uL 4.6-6.2 [facility] Work Phone: Blood hemoglobin measurement (mass/volume)on 01-18-2022 Hemoglobin (Bld) [Mass/Vol] 12.9 g/dL 13.0-16.5 [facility] Work Phone: Blood lymphocytes/100 leukoc yteson 01-18-2022 Lymphocytes/100 WBC (Bld) 14.2 % 19-41 [facility] Work Phone: Blood monocytes/100 leukocyt eson 01-18-2022 Monocytes/100 WBC (Bld) 9.5 % 0-10 [facility] Work Phone: Blood platelet mean volumeon 01-18-2022 Platelet mean volume (Bld) [Entitic vol] 11.6 fL 6.2-12.0 [facility] Work Phone: Determination of erythrocyte mean corpuscular volume (MCV)on 01-18-2022 MCV (RBC) [Entitic vol] 87.8 fL 80-94 [facility] Work Phone: Hematocrit Auto (Bld) [Volum e fraction]on 01-18-2022 Hematocrit (Bld) [Volume fraction] 38.0 % 40-54 [facility] Work Phone: Laboratory - Chemistry and C hemistry - challengeon 01-18-2022 ALP [Catalytic activity/Vol] 143 U/L 45-117 [facility] Work Phone: ALT [Catalytic activity/Vol] 22 U/L 16-61 [facility] Work Phone: CO2 [Moles/Vol] 31.0 mmol/L 21.0-32.0 [facility] Work Phone: Globulin (S) [Mass/Vol] 3.6 g/dL 2.2-4.2 [facility] Work Phone: Urea nitrogen/Creatinine [Mass ratio] 8.6 mg/mg 10-20 [facility] Work Phone: Laboratory - Hematology and Cell countson 01-18-2022 Erythrocyte distribution width (RBC) [Entitic vol] 42.8 fL 35.1-43.9 [facility] Work Phone: Erythrocyte distribution width (RBC) [Ratio] 13.2 % 11.6-14.6 [facility] Work Phone: Immature granulocytes/100 WBC (Bld) 0.400 % 0.0-0.9 [facility] Work Phone: Comment on above: IG% - Immature Granu locytes (promyelocytes, myelocytes and metamyelocytes) > 1% indicates that a LEFT SHIFT is Present. MCH (RBC) [Entitic mass] 29.8 pg 27.0-32.0 [facility] Work Phone: Nucleated RBC/100 WBC (Bld) [Ratio] 0 % 0-5 [facility] Work Phone: MCHC Auto (RBC) [Mass/Vol]on 01-18-2022 MCHC (RBC) [Mass/Vol] 33.9 g/dL 32-36 [facility] Work Phone: No Panel Informationon 01-18 Estimated GFR (MDRD) Amer 62 mL/min >60 [facility] Work Phone: Comment on above: GFR Calc Estimated GFR (MDRD) Non-Af Amer 52 mL/min >60 [facility] Work Phone: Comment on above: Non- GFR Calc Thyroid Stimulating Hormone (TSH) 2.83 uIU/mL 0.358-3.74 [facility] Work Phone: Vitamin D 25-Hydroxy 43.2 ng/mL [facility] Work Phone: Comment on above: Vitamin D 25(OH) Sta tus Range Deficiency <20 ng/mL (50nmol/L) Insufficiency 20 - 30 ng/mL (50 - 75 nmol/L) Sufficiency 30 - 100 ng/mL (75 - 250 nmol/L) Toxicity >100 ng/mL (>250 nmol/L) Platelets bldon 01-18-2022 Platelets (Bld) [#/Vol] 190 10*3/uL 150-450 [facility] Work Phone: Serum or plasma albumin sita urement (mass/volume)on 01-18-2022 Albumin [Mass/Vol] 3.2 g/dL 3.2-5.0 [facility] Work Phone: Serum or plasma albumin/glob ulin mass ratioon 01-18-2022 Albumin/Globulin [Mass ratio] 0.9 {ratio} 0.9-2.4 [facility] Work Phone: Serum or plasma calcium sita urement (mass/volume)on 01-18-2022 Calcium [Mass/Vol] 8.3 mg/dL 8.5-10.1 [facility] Work Phone: Serum or plasma creatinine m easurement (mass/volume)on 01-18-2022 Creatinine [Mass/Vol] 1.39 mg/dL 0.70-1.30 [facility] Work Phone: Comment on above: The validity of the calculated GFR & GFRAA in patients over 70 years has not been determined. Clinical correlation is essential. Serum or plasma urea nitroge n measurement (mass/volume)on 01-18-2022 Urea nitrogen [Mass/Vol] 12 mg/dL 7-18 [facility] Work Phone: Thin prep Papanicolaou smear with manual screeningon 01-18-2022 Thin prep Papanicolaou smear with manual screening 15 U/L 15-37 [facility] Work Phone: Thin prep Papanicolaou smear with manual screening 7 5-15 [facility] Work Phone: Basophil percentageon 2021 Chloride [Moles/Vol] 101 mmol/L 98-107 [facility] Work Phone: Glucose [Mass/Vol] 137 mg/dL 74-106 [facility] Work Phone: Comment on above: Fasting Glucose resu lt greater than or equal to 126 mg/dL suggests DIABETES MELLITUS per A.D.A. criteria. Potassium [Moles/Vol] 3.7 mmol/L 3.5-5.1 [facility] Work Phone: Sodium [Moles/Vol] 137 mmol/L 136-145 [facility] Work Phone: Laboratory - Chemistry and C hemistry - challengeon 12-27-2021 CO2 [Moles/Vol] 29.0 mmol/L 21.0-32.0 [facility] Work Phone: Magnesium [Mass/Vol] 1.8 mg/dL 1.6-2.6 [facility] Work Phone: Urea nitrogen/Creatinine [Mass ratio] 8.9 mg/mg 10-20 [facility] Work Phone: No Panel Informationon 12-27 Estimated GFR (MDRD) Amer 54 mL/min >60 [facility] Work Phone: Comment on above: GFR Calc Estimated GFR (MDRD) Non-Af Amer 44 mL/min >60 [facility] Work Phone: Comment on above: Non- GFR Calc Serum or plasma calcium sita urement (mass/volume)on 12-27-2021 Calcium [Mass/Vol] 9.1 mg/dL 8.5-10.1 [facility] Work Phone: Serum or plasma creatinine m easurement (mass/volume)on 12-27-2021 Creatinine [Mass/Vol] 1.58 mg/dL 0.70-1.30 [facility] Work Phone: Comment on above: The validity of the calculated GFR & GFRAA in patients over 70 years has not been determined. Clinical correlation is essential. Serum or plasma urea nitroge n measurement (mass/volume)on 12-27-2021 Urea nitrogen [Mass/Vol] 14 mg/dL 7-18 [facility] Work Phone: Thin prep Papanicolaou smear with manual screeningon 12-27-2021 Thin prep Papanicolaou smear with manual screening 7 5-15 [facility] Work Phone: Absolute lymphocyte counton 08-05-2022 Lymphocytes Auto (Unsp spec) [#/Vol] 1.02 10*3/uL 0.83-4.51 [facility] Work Phone: Basophil percentageon 2021 Basophils/100 WBC (Bld) 0.4 % 0-1 [facility] Work Phone: Chloride [Moles/Vol] 98 mmol/L 98-107 [facility] Work Phone: Cholesterol [Mass/Vol] 85 mg/dL <200 [facility] Work Phone: Comment on above: <200 mg/dL Desirable 200-240 mg/dL Borderline >240 mg/dL High Risk Eosinophils/100 WBC (Bld) 2.0 % 0-5 [facility] Work Phone: Glucose [Mass/Vol] 130 mg/dL 74-106 [facility] Work Phone: Comment on above: Fasting Glucose resu lt greater than or equal to 126 mg/dL suggests DIABETES MELLITUS per A.D.A. criteria. Neutrophils (Bld) [#/Vol] 5.9 10*3/uL 2.0-7.7 [facility] Work Phone: Neutrophils/100 WBC (Bld) 74.4 % 47-70 [facility] Work Phone: [phone] Potassium [Moles/Vol] 3.1 mmol/L 3.5-5.1 [facility] [phone] Sodium [Moles/Vol] 134 mmol/L 136-145 [facility] Work Phone: Triglyceride [Mass/Vol] 73 mg/dL <199 [facility] Work Phone: Comment on above: The drugs N-Acetylcy steine and Metamizole may falsely depress this assay.Serum Triglycerides Reference Interval Normal <150 mg/dL Borderline high 150 - 199 mg/dL High 200 - 499 mg/dL Very High > or = 500 mg/dL WBC (Bld) [#/Vol] 7.9 10*3/uL 4.4-11.0 [facility] Work Phone: Blood erythrocytes count (nu mber/volume)on 12-22-2021 RBC (Bld) [#/Vol] 3.60 10*6/uL 4.6-6.2 [facility] Work Phone: Blood hemoglobin measurement (mass/volume)on 12-22-2021 Hemoglobin (Bld) [Mass/Vol] 10.9 g/dL 13.0-16.5 [facility] Work Phone: Blood lymphocytes/100 leukoc yteson 12-22-2021 Lymphocytes/100 WBC (Bld) 13.0 % 19-41 [facility] Work Phone: Blood monocytes/100 leukocyt eson 12-22-2021 Monocytes/100 WBC (Bld) 9.8 % 0-10 [facility] Work Phone: Blood platelet mean volumeon 12-22-2021 Platelet mean volume (Bld) [Entitic vol] 11.8 fL 6.2-12.0 [facility] Work Phone: Determination of erythrocyte mean corpuscular volume (MCV)on 12-22-2021 MCV (RBC) [Entitic vol] 86.7 fL 80-94 [facility] Work Phone: Hematocrit Auto (Bld) [Volum e fraction]on 12-22-2021 Hematocrit (Bld) [Volume fraction] 31.2 % 40-54 [facility] Work Phone: Laboratory - Chemistry and C hemistry - challengeon 12-22-2021 CO2 [Moles/Vol] 28.0 mmol/L 21.0-32.0 [facility] Work Phone: Urea nitrogen/Creatinine [Mass ratio] 7.7 mg/mg 10-20 [facility] Work Phone: Laboratory - Hematology and Cell countson 12-22-2021 Erythrocyte distribution width (RBC) [Entitic vol] 41.1 fL 35.1-43.9 [facility] Work Phone: Erythrocyte distribution width (RBC) [Ratio] 13.0 % 11.6-14.6 [facility] Work Phone: Immature granulocytes/100 WBC (Bld) 0.400 % 0.0-0.9 [facility] Work Phone: Comment on above: IG% - Immature Granu locytes (promyelocytes, myelocytes and metamyelocytes) > 1% indicates that a LEFT SHIFT is Present. MCH (RBC) [Entitic mass] 30.3 pg 27.0-32.0 [facility] Work Phone: Nucleated RBC/100 WBC (Bld) [Ratio] 0 % 0-5 [facility] Work Phone: MCHC Auto (RBC) [Mass/Vol]on 12-22-2021 MCHC (RBC) [Mass/Vol] 34.9 g/dL 32-36 [facility] Work Phone: No Panel Informationon 12-22 Estimated Creatinine Clearance Calc 38.56 ml/min [facility] Work Phone: Estimated GFR (MDRD) Amer 61 mL/min >60 [facility] Work Phone: Comment on above: GFR Calc Estimated GFR (MDRD) Non-Af Amer 50 mL/min >60 [facility] Work Phone: Comment on above: Non- GFR Calc Thyroid Stimulating Hormone (TSH) 3.25 uIU/mL 0.358-3.74 [facility] Work Phone: Platelets bldon 12-22-2021 Platelets (Bld) [#/Vol] 190 10*3/uL 150-450 [facility] Work Phone: Serum or plasma calcium sita urement (mass/volume)on 12-22-2021 Calcium [Mass/Vol] 8.3 mg/dL 8.5-10.1 [facility] Work Phone: Serum or plasma cholesterol in HDL measurement (mass/volume)on 12-22-2021 Cholesterol in HDL [Mass/Vol] 39 mg/dL >40 [facility] Work Phone: Comment on above: The drugs N-Acetylcy steine and Metamizole may falsely depress this assay. Reference Range HDL <40 mg/dL Low HDL Cholesterol HDL >or= 60 mg/dL High HDL Cholesterol Serum or plasma cholesterol in VLDL measurement (mass/volume)on 12-22-2021 Cholesterol in VLDL [Mass/Vol] 15 mg/dL 5-40 [facility] Work Phone: Serum or plasma cortisol osbaldo surement (mass/volume)on 12-22-2021 Cortisol [Mass/Vol] 11.00 ug/dL 3.44-22.45 [facility] Work Phone: Comment on above: Adult (AM) 5.27 - 22 .45 ug/dL Adult (PM) 3.44 - 16.76 ug/dLPlease note revised CORTISOL reference range effective 2019. Serum or plasma creatinine m easurement (mass/volume)on 12-22-2021 Creatinine [Mass/Vol] 1.42 mg/dL 0.70-1.30 [facility] Work Phone: Comment on above: The validity of the calculated GFR & GFRAA in patients over 70 years has not been determined. Clinical correlation is essential. Serum or plasma low density lipoprotein (LDL) cholesterol measurement (mass/volume)on 12-22-2021 Cholesterol in LDL [Mass/Vol] 31 mg/dL 0-130 [facility] Work Phone: Serum or plasma urea nitroge n measurement (mass/volume)on 12-22-2021 Urea nitrogen [Mass/Vol] 11 mg/dL 7-18 [facility] Work Phone: Thin prep Papanicolaou smear with manual screeningon 12-22-2021 Thin prep Papanicolaou smear with manual screening 8 5-15 [facility] Work Phone: Absolute lymphocyte counton 12-21-2021 Lymphocytes Auto (Unsp spec) [#/Vol] 0.91 10*3/uL 0.83-4.51 [facility] Work Phone: Basophil percentageon 2021 Basophil percentage 3.4 mg/dL 2.5-4.9 [facility] Work Phone: Basophils/100 WBC (Bld) 0.3 % 0-1 [facility] Work Phone: Chloride [Moles/Vol] 95 mmol/L 98-107 [facility] Work Phone: Eosinophils/100 WBC (Bld) 0.8 % 0-5 [facility] Work Phone: Glucose [Mass/Vol] 213 mg/dL 74-106 [facility] Work Phone: Comment on above: Glucose result great er than or equal to 200 mg/dLsuggests DIABETES MELLITUS per A.D.A. criteria. Neutrophils (Bld) [#/Vol] 6.9 10*3/uL 2.0-7.7 [facility] Work Phone: Neutrophils/100 WBC (Bld) 79.9 % 47-70 [facility] Work Phone: Potassium [Moles/Vol] 3.6 mmol/L 3.5-5.1 [facility] Work [facility]: Sodium [Moles/Vol] 132 mmol/L 136-145 [facility] Work Phone: WBC (Bld) [#/Vol] 8.6 10*3/uL 4.4-11.0 [facility] Work Phone: [phone] Blood erythrocytes count (nu mber/volume)on 12-21-2021 RBC (Bld) [#/Vol] 4.17 10*6/uL 4.6-6.2 [facility] Work Phone: Blood hemoglobin measurement (mass/volume)on 12-21-2021 Hemoglobin (Bld) [Mass/Vol] 12.5 g/dL 13.0-16.5 [facility] Work Phone: [phone] Blood lymphocytes/100 leukoc yteson 12-21-2021 Lymphocytes/100 WBC (Bld) 10.6 % 19-41 [facility] Work Phone: Blood monocytes/100 leukocyt eson 12-21-2021 Monocytes/100 WBC (Bld) 7.9 % 0-10 [facility] Work Phone: Blood platelet mean volumeon 12-21-2021 Platelet mean volume (Bld) [Entitic vol] 11.5 fL 6.2-12.0 [facility] Work Phone: Determination of erythrocyte mean corpuscular volume (MCV)on 12-21-2021 MCV (RBC) [Entitic vol] 88.7 fL 80-94 [facility] Work Phone: Hematocrit Auto (Bld) [Volum e fraction]on 12-21-2021 Hematocrit (Bld) [Volume fraction] 37.0 % 40-54 [facility] Work Phone: INR in Blood by Coagulation assayon 12-21-2021 INR Coag (Bld) [Relative time] 1.4 {INR} [facility] Work Phone: Laboratory - Chemistry and C hemistry - challengeon 12-21-2021 Sodium (U) [Moles/Vol] 47 mmol/L Not Establ. [facility] Work Phone: Magnesium [Mass/Vol] 1.4 mg/dL 1.6-2.6 [facility] Work Phone: CO2 [Moles/Vol] 30.0 mmol/L 21.0-32.0 [facility] Work Phone: Natriuretic peptide B (Bld) [Mass/Vol] 334.0 pg/mL 0-100 [facility] Work Phone: [phone] Urea nitrogen/Creatinine [Mass ratio] 7.9 mg/mg 10-20 [facility] Work Phone: Laboratory - Coagulationon 0 12-21-2021 PT Coag (PPP) [Time] 16.9 s 11.7-14.9 [facility] Work Phone: Laboratory - Hematology and Cell countson 12-21-2021 Erythrocyte distribution width (RBC) [Entitic vol] 42.4 fL 35.1-43.9 [facility] Work Phone: Erythrocyte distribution width (RBC) [Ratio] 13.0 % 11.6-14.6 [facility] Work Phone: Immature granulocytes/100 WBC (Bld) 0.500 % 0.0-0.9 [facility] Work Phone: Comment on above: IG% - Immature Granu locytes (promyelocytes, myelocytes and metamyelocytes) > 1% indicates that a LEFT SHIFT is Present. MCH (RBC) [Entitic mass] 30.0 pg 27.0-32.0 [facility] Work Phone: Nucleated RBC/100 WBC (Bld) [Ratio] 0 % 0-5 [facility] Work Phone: MCHC Auto (RBC) [Mass/Vol]on 12-21-2021 MCHC (RBC) [Mass/Vol] 33.8 g/dL 32-36 [facility] Work Phone: No Panel Informationon 12-21 Troponin I High Sensitivity 23 pg/mL 3.0-78.0 [facility] Work Phone: Comment on above: Please Note: New Pe[place] t Units and Gender Specific Reference Ranges. For more information see Policy Stat Procedure [place] High Sensitivity Troponin (TNIH) and attachments. D-Dimer Quantitative (PE/DVT) 1.02 FEU/ug/m 0.27-0.49 [facility] Work Phone: Comment on above: D-Dimer ELEVATED (>0 .49): Additional studies and clinicalassessments are indicated to conclude diagnosis of:Deep Vein Thrombosis (DVT) or Pulmonary Embolism (PE)RESULTS CALLED TO DEBORAH PEACOCK RN 12/21/21 [email or web address] Shakira Kirkland.REPORT READ BACK BY SAME. Estimated Creatinine Clearance Calc 39.11 ml/min [facility] Work Phone: Estimated GFR (MDRD) Amer 62 mL/min >60 [facility] Work Phone: Comment on above: GFR Calc Estimated GFR (MDRD) Non-Af Amer 51 mL/min >60 [facility] Work Phone: Comment on above: Non- GFR Calc Troponin I High Sensitivity 20 pg/mL 3.0-78.0 [facility] Work Phone: Comment on above: Please Note: [place] t Units and Gender Specific Reference Ranges. For more information see Policy Stat Procedure [place] High Sensitivity Troponin (TNIH) and attachments. Platelets bldon 12-21-2021 Platelets (Bld) [#/Vol] 199 10*3/uL 150-450 [facility] Work Phone: Serum or plasma calcium sita urement (mass/volume)on 12-21-2021 Calcium [Mass/Vol] 8.4 mg/dL 8.5-10.1 [facility] Work Phone: Serum or plasma creatinine m easurement (mass/volume)on 12-21-2021 Creatinine [Mass/Vol] 1.40 mg/dL 0.70-1.30 [facility] Work Phone: Comment on above: The validity of the calculated GFR & GFRAA in patients over 70 years has not been determined. Clinical correlation is essential. Serum or plasma urea nitroge n measurement (mass/volume)on 12-21-2021 Urea nitrogen [Mass/Vol] 11 mg/dL 7-18 [facility] Work Phone: Thin prep Papanicolaou smear with manual screeningon 12-21-2021 Thin prep Papanicolaou smear with manual screening 285 mOsm/KG 280-301 [facility] Work Phone: Thin prep Papanicolaou smear with manual screening 7 5-15 [facility] Work Phone: Urine creatinine measurement (mass/volume)on 12-21-2021 Creatinine (U) [Mass/Vol] 31.30 mg/dL NO RANGE EST. [facility] Work Phone: Urine osmolality measurement on 12-21-2021 Osmolality (U) [Osmolality] 261 mOsm/KG >50 [facility] Work Phone: Comment on above: Normal Urine Referen ce Ranges Random: 50 - 1200 mOsm/kg H20 depending on fluid intake Random: >850 mOsm/kg after 12 hour fluid restriction 24 hour: ~300 - 900 mOsm/kg H2O Absolute lymphocyte counton 12-19-2021 Lymphocytes Auto (Unsp spec) [#/Vol] 0.88 10*3/uL 0.83-4.51 [facility] Work Phone: [phone] Basophil percentageon 2021 Basophils/100 WBC (Bld) 0.3 % 0-1 [facility] Work Phone: Chloride [Moles/Vol] 99 mmol/L 98-107 [facility] Work Phone: Eosinophils/100 WBC (Bld) 2.3 % 0-5 [facility] Work Phone: Glucose [Mass/Vol] 241 mg/dL 74-106 [facility] Work Phone: Comment on above: Glucose result great er than or equal to 200 mg/dLsuggests DIABETES MELLITUS per A.D.A. criteria. Neutrophils (Bld) [#/Vol] 6.1 10*3/uL 2.0-7.7 [facility] Work Phone: Neutrophils/100 WBC (Bld) 77.1 % 47-70 [facility] Work Phone: [phone] Potassium [Moles/Vol] 3.3 mmol/L 3.5-5.1 [facility] Work Phone: Sodium [Moles/Vol] 132 mmol/L 136-145 [facility] Work Phone: WBC (Bld) [#/Vol] 7.9 10*3/uL 4.4-11.0 [facility] Work Phone: Blood erythrocytes count (nu mber/volume)on 12-19-2021 RBC (Bld) [#/Vol] 3.92 10*6/uL 4.6-6.2 [facility] Work Phone: Blood hemoglobin measurement (mass/volume)on 12-19-2021 Hemoglobin (Bld) [Mass/Vol] 11.9 g/dL 13.0-16.5 [facility] Work Phone: Blood lymphocytes/100 leukoc yteson 12-19-2021 Lymphocytes/100 WBC (Bld) 11.2 % 19-41 [facility] Work Phone: Blood monocytes/100 leukocyt eson 12-19-2021 Monocytes/100 WBC (Bld) 8.6 % 0-10 [facility] Work Phone: Blood platelet mean volumeon 12-19-2021 Platelet mean volume (Bld) [Entitic vol] 10.9 fL 6.2-12.0 [facility] Work Phone: Determination of erythrocyte mean corpuscular volume (MCV)on 12-19-2021 MCV (RBC) [Entitic vol] 87.8 fL 80-94 [facility] Work Phone: Hematocrit Auto (Bld) [Volum e fraction]on 12-19-2021 Hematocrit (Bld) [Volume fraction] 34.4 % 40-54 [facility] Work Phone: Laboratory - Chemistry and C hemistry - challengeon 12-19-2021 CO2 [Moles/Vol] 29.0 mmol/L 21.0-32.0 [facility] Work Phone: Natriuretic peptide B (Bld) [Mass/Vol] 310.7 pg/mL 0-100 [facility] Work Phone: Urea nitrogen/Creatinine [Mass ratio] 7.7 mg/mg 10-20 [facility] Work Phone: Laboratory - Hematology and Cell countson 12-19-2021 Erythrocyte distribution width (RBC) [Entitic vol] 42.5 fL 35.1-43.9 [facility] Work Phone: Erythrocyte distribution width (RBC) [Ratio] 13.2 % 11.6-14.6 [facility] Work Phone: Immature granulocytes/100 WBC (Bld) 0.500 % 0.0-0.9 [facility] Work Phone: Comment on above: IG% - Immature Granu locytes (promyelocytes, myelocytes and metamyelocytes) > 1% indicates that a LEFT SHIFT is Present. MCH (RBC) [Entitic mass] 30.4 pg 27.0-32.0 [facility] Work Phone: Nucleated RBC/100 WBC (Bld) [Ratio] 0 % 0-5 [facility] Work Phone: MCHC Auto (RBC) [Mass/Vol]on 12-19-2021 MCHC (RBC) [Mass/Vol] 34.6 g/dL 32-36 [facility] Work Phone: No Panel Informationon 12-19 Estimated Creatinine Clearance Calc 38.56 ml/min [facility] Work Phone: Estimated GFR (MDRD) Amer 61 mL/min >60 [facility] Work Phone: Comment on above: GFR Calc Estimated GFR (MDRD) Non-Af Amer 50 mL/min >60 [facility] Work Phone: Comment on above: Non- GFR Calc Troponin I High Sensitivity 22 pg/mL 3.0-78.0 [facility] Work Phone: Comment on above: Please Note: [place] t Units and Gender Specific Reference Ranges. For more information see Policy Stat Procedure [place] High Sensitivity Troponin (TNIH) and attachments. Platelets bldon 12-19-2021 Platelets (Bld) [#/Vol] 189 10*3/uL 150-450 [facility] Work Phone: Serum or plasma calcium sita urement (mass/volume)on 12-19-2021 Calcium [Mass/Vol] 8.4 mg/dL 8.5-10.1 [facility] Work Phone: Serum or plasma creatinine m easurement (mass/volume)on 12-19-2021 Creatinine [Mass/Vol] 1.42 mg/dL 0.70-1.30 [facility] Work Phone: Comment on above: The validity of the calculated GFR & GFRAA in patients over 70 years has not been determined. Clinical correlation is essential. Serum or plasma urea nitroge n measurement (mass/volume)on 12-19-2021 Urea nitrogen [Mass/Vol] 11 mg/dL 7-18 [facility] Work Phone: Thin prep Papanicolaou smear with manual screeningon 12-19-2021 Thin prep Papanicolaou smear with manual screening 4 5-15 [facility] Work Phone: Basophil percentageon 2021 Bilirubin [Mass/Vol] 2.10 mg/dL 0.20-1.00 [facility] Work Phone: Comment on above: For patients on eltr ombopag therapy, use of Dimension [place] TBIL is not recommended. Chloride [Moles/Vol] 95 mmol/L 98-107 [facility] Work Phone: Glucose [Mass/Vol] 140 mg/dL 74-106 [facility] Work Phone: Comment on above: Fasting Glucose resu lt greater than or equal to 126 mg/dL suggests DIABETES MELLITUS per A.D.A. criteria. Potassium [Moles/Vol] 3.7 mmol/L 3.5-5.1 [facility] Work Phone: Protein [Mass/Vol] 6.3 g/dL 6.4-8.2 [facility] Work Phone: Sodium [Moles/Vol] 130 mmol/L 136-145 [facility] Work Phone: Laboratory - Chemistry and C hemistry - challengeon 11-02-2021 ALP [Catalytic activity/Vol] 101 U/L 45-117 [facility] Work Phone: ALT [Catalytic activity/Vol] 20 U/L 16-61 [facility] Work Phone: CO2 [Moles/Vol] 29.0 mmol/L 21.0-32.0 [facility] Work Phone: Globulin (S) [Mass/Vol] 3.1 g/dL 2.2-4.2 [facility] Work Phone: Sodium (U) [Moles/Vol] 50 mmol/L Not Establ. [facility] Work Phone: Urea nitrogen/Creatinine [Mass ratio] 6.5 mg/mg 10-20 [facility] Work Phone: No Panel Informationon 11-02 Estimated GFR (MDRD) Amer 63 mL/min >60 [facility] Work Phone: Comment on above: GFR Calc Estimated GFR (MDRD) Non-Af Amer 52 mL/min >60 [facility] Work Phone: Comment on above: Non- GFR Calc Serum or plasma albumin sita urement (mass/volume)on 11-02-2021 Albumin [Mass/Vol] 3.2 g/dL 3.2-5.0 [facility] Work Phone: Serum or plasma albumin/glob ulin mass ratioon 11-02-2021 Albumin/Globulin [Mass ratio] 1.0 {ratio} 0.9-2.4 [facility] Work Phone: Serum or plasma calcium sita urement (mass/volume)on 11-02-2021 Calcium [Mass/Vol] 8.6 mg/dL 8.5-10.1 [facility] Work Phone: Serum or plasma creatinine m easurement (mass/volume)on 11-02-2021 Creatinine [Mass/Vol] 1.38 mg/dL 0.70-1.30 [facility] Work Phone: Comment on above: The validity of the calculated GFR & GFRAA in patients over 70 years has not been determined. Clinical correlation is essential. Serum or plasma urea nitroge n measurement (mass/volume)on 11-02-2021 Urea nitrogen [Mass/Vol] 9 mg/dL 7-18 [facility] Work Phone: Thin prep Papanicolaou smear with manual screeningon 11-02-2021 Thin prep Papanicolaou smear with manual screening 17 U/L 15-37 [facility] Work Phone: Thin prep Papanicolaou smear with manual screening 6 5-15 [facility] Work Phone: Absolute lymphocyte counton 10-26-2021 Lymphocytes Auto (Unsp spec) [#/Vol] 0.94 10*3/uL 0.83-4.51 [facility] Work Phone: Basophil percentageon 2021 Basophil percentage 3.0 mg/dL 2.5-4.9 [facility] Work Phone: Chloride [Moles/Vol] 92 mmol/L 98-107 [facility] Work Phone: Glucose [Mass/Vol] 112 mg/dL 74-106 [facility] Work Phone: [phone] Comment on above: Fasting Glucose resu lt from 100 to 125 mg/dL suggests IMPAIRED HOMEOSTASIS per A.D.A. criteria. Potassium [Moles/Vol] 3.5 mmol/L 3.5-5.1 [facility] Work Phone: Sodium [Moles/Vol] 127 mmol/L 136-145 [facility] Work Phone: Basophils/100 WBC (Bld) 0.1 % 0-1 [facility] Work Phone: Eosinophils/100 WBC (Bld) 0.6 % 0-5 [facility] Work Phone: Neutrophils (Bld) [#/Vol] 7.8 10*3/uL 2.0-7.7 [facility] Work Phone: Neutrophils/100 WBC (Bld) 80.0 % 47-70 [facility] Work Phone: [phone] WBC (Bld) [#/Vol] 9.8 10*3/uL 4.4-11.0 [facility] Work Phone: Blood erythrocytes count (nu mber/volume)on 10-26-2021 RBC (Bld) [#/Vol] 3.45 10*6/uL 4.6-6.2 [facility] Work Phone: Blood hemoglobin measurement (mass/volume)on 10-26-2021 Hemoglobin (Bld) [Mass/Vol] 10.9 g/dL 13.0-16.5 [facility] Work Phone: Blood lymphocytes/100 leukoc yteson 10-26-2021 Lymphocytes/100 WBC (Bld) 9.6 % 19-41 [facility] Work Phone: Blood monocytes/100 leukocyt eson 10-26-2021 Monocytes/100 WBC (Bld) 9.3 % 0-10 [facility] Work Phone: Blood platelet mean volumeon 10-26-2021 Platelet mean volume (Bld) [Entitic vol] 11.0 fL 6.2-12.0 [facility] Work Phone: Determination of erythrocyte mean corpuscular volume (MCV)on 10-26-2021 MCV (RBC) [Entitic vol] 87.0 fL 80-94 [facility] Work Phone: Glucose Glucometer (BldC) [M ass/Vol]on 10-26-2021 Glucose [Mass/Vol] 139 mg/dL 74-106 [facility] Work Phone: Comment on above: MANAGEMENT OF PATIEN T CARE PER NURSING PROTOCOL Hematocrit Auto (Bld) [Volum e fraction]on 10-26-2021 Hematocrit (Bld) [Volume fraction] 30.0 % 40-54 [facility] Work Phone: Laboratory - Chemistry and C hemistry - challengeon 10-26-2021 CO2 [Moles/Vol] 28.0 mmol/L 21.0-32.0 [facility] Work Phone: Urea nitrogen/Creatinine [Mass ratio] 7.5 mg/mg 10-20 [facility] Work Phone: Magnesium [Mass/Vol] 1.3 mg/dL 1.6-2.6 [facility] Work Phone: Laboratory - Hematology and Cell countson 10-26-2021 Erythrocyte distribution width (RBC) [Entitic vol] 38.5 fL 35.1-43.9 [facility] Work Phone: Erythrocyte distribution width (RBC) [Ratio] 11.9 % 11.6-14.6 [facility] Work Phone: Immature granulocytes/100 WBC (Bld) 0.400 % 0.0-0.9 [facility] Work Phone: Comment on above: IG% - Immature Granu locytes (promyelocytes, myelocytes and metamyelocytes) > 1% indicates that a LEFT SHIFT is Present. MCH (RBC) [Entitic mass] 31.6 pg 27.0-32.0 [facility] Work Phone: Nucleated RBC/100 WBC (Bld) [Ratio] 0 % 0-5 [facility] Work Phone: MCHC Auto (RBC) [Mass/Vol]on 10-26-2021 MCHC (RBC) [Mass/Vol] 36.3 g/dL 32-36 [facility] Work Phone: No Panel Informationon 10-26 Estimated Creatinine Clearance Calc 51.65 ml/min [facility] Work Phone: Estimated GFR (MDRD) Amer 85 mL/min >60 [facility] Work Phone: Comment on above: GFR Calc Estimated GFR (MDRD) Non-Af Amer 70 mL/min >60 [facility] Work Phone: Comment on above: Non- GFR Calc Vitamin D 25-Hydroxy 38.0 ng/mL [facility] Work Phone: Comment on above: Vitamin D 25(OH) Sta tus Range Deficiency <20 ng/mL (50nmol/L) Insufficiency 20 - 30 ng/mL (50 - 75 nmol/L) Sufficiency 30 - 100 ng/mL (75 - 250 nmol/L) Toxicity >100 ng/mL (>250 nmol/L) Platelets bldon 10-26-2021 Platelets (Bld) [#/Vol] 204 10*3/uL 150-450 [facility] Work Phone: Serum or plasma calcium sita urement (mass/volume)on 10-26-2021 Calcium [Mass/Vol] 7.7 mg/dL 8.5-10.1 [facility] Work Phone: Serum or plasma cortisol osbaldo surement (mass/volume)on 10-26-2021 Cortisol [Mass/Vol] 10.60 ug/dL 3.44-22.[address] [facility] Work Phone: Comment on above: Adult (AM) 5.27 - 22 .45 ug/dL Adult (PM) 3.44 - 16.76 ug/dLPlease note revised CORTISOL reference range effective 2019. Serum or plasma creatinine m easurement (mass/volume)on 10-26-2021 Creatinine [Mass/Vol] 1.06 mg/dL 0.70-1.30 [facility] Work Phone: Comment on above: The validity of the calculated GFR & GFRAA in patients over 70 years has not been determined. Clinical correlation is essential. Serum or plasma urea nitroge n measurement (mass/volume)on 10-26-2021 Urea nitrogen [Mass/Vol] 8 mg/dL 7-18 [facility] Work Phone: Thin prep Papanicolaou smear with manual screeningon 10-26-2021 Thin prep Papanicolaou smear with manual screening 7 5-15 [facility] Work Phone: Whole blood hemoglobin A1c/t otal hemoglobin ratio (mass fraction)on 10-26-2021 HbA1c (Bld) [Mass fraction] 5.9 % 3.8-5.6 [facility] Work Phone: Comment on above: Normal < 5.7 % Predi abetic 5.7 - 6.4 % Diabetic >or= 6.5 % Please note range changes. Absolute lymphocyte counton 10-25-2021 Lymphocytes Auto (Unsp spec) [#/Vol] 0.73 10*3/uL 0.83-4.51 [facility] Work Phone: Basophil percentageon 2021 Basophil percentage 0 SEEN /hpf 0-5 [facility] Work Phone: Basophils/100 WBC (Bld) 0.3 % 0-1 [facility] Work Phone: Bilirubin [Mass/Vol] 1.60 mg/dL 0.20-1.00 [facility] Work Phone: Comment on above: For patients on eltr ombopag therapy, use of Dimension [place] TBIL is not recommended. Chloride [Moles/Vol] 86 mmol/L 98-107 [facility] Work Phone: Eosinophils/100 WBC (Bld) 0.7 % 0-5 [facility] Work Phone: Glucose [Mass/Vol] 214 mg/dL 74-106 [facility] Work Phone: Comment on above: Glucose result great er than or equal to 200 mg/dLsuggests DIABETES MELLITUS per A.D.A. criteria. Neutrophils (Bld) [#/Vol] 7.3 10*3/uL 2.0-7.7 [facility] Work Phone: [phone] Neutrophils/100 WBC (Bld) 80.3 % 47-70 [facility] Work Phone: Potassium [Moles/Vol] 3.1 mmol/L 3.5-5.1 [facility] Work Phone: Protein [Mass/Vol] 6.5 g/dL 6.4-8.2 [facility] Work Phone: Sodium [Moles/Vol] 124 mmol/L 136-145 [facility] Work Phone: [phone] WBC (Bld) [#/Vol] 9.1 10*3/uL 4.4-11.0 [facility] Work Phone: [phone] Bilirubin Test strip Ql (U)o n 10-25-2021 Bilirubin Ql (U) Negative Negative [facility] Work Phone: Blood erythrocytes count (nu mber/volume)on 10-25-2021 RBC (Bld) [#/Vol] 3.79 10*6/uL 4.6-6.2 [facility] Work Phone: Blood hemoglobin measurement (mass/volume)on 10-25-2021 Hemoglobin (Bld) [Mass/Vol] 11.9 g/dL 13.0-16.5 [facility] Work Phone: Blood lymphocytes/100 leukoc yteson 10-25-2021 Lymphocytes/100 WBC (Bld) 8.0 % 19-41 [facility] Work Phone: Blood monocytes/100 leukocyt eson 10-25-2021 Monocytes/100 WBC (Bld) 10.1 % 0-10 [facility] Work Phone: Blood platelet mean volumeon 10-25-2021 Platelet mean volume (Bld) [Entitic vol] 10.6 fL 6.2-12.0 [facility] Work Phone: Determination of erythrocyte mean corpuscular volume (MCV)on 10-25-2021 MCV (RBC) [Entitic vol] 87.9 fL 80-94 [facility] Work Phone: Hematocrit Auto (Bld) [Volum e fraction]on 10-25-2021 Hematocrit (Bld) [Volume fraction] 33.3 % 40-54 [facility] Work Phone: Ketones Test strip Ql (U)on 10-25-2021 Ketones Ql (U) Negative Negative [facility] Work Phone: Laboratory - Chemistry and C hemistry - challengeon 10-25-2021 Sodium (U) [Moles/Vol] 52 mmol/L Not Establ. [facility] Work Phone: ALP [Catalytic activity/Vol] 103 U/L 45-117 [facility] Work Phone: ALT [Catalytic activity/Vol] 18 U/L 16-61 [facility] Work Phone: CO2 [Moles/Vol] 29.0 mmol/L 21.0-32.0 [facility] Work Phone: Globulin (S) [Mass/Vol] 3.3 g/dL 2.2-4.2 [facility] Work Phone: Urea nitrogen/Creatinine [Mass ratio] 7.2 mg/mg 10-20 [facility] Work Phone: Laboratory - Hematology and Cell countson 10-25-2021 Erythrocyte distribution width (RBC) [Entitic vol] 39.2 fL 35.1-43.9 [facility] Work Phone: Erythrocyte distribution width (RBC) [Ratio] 12.1 % 11.6-14.6 [facility] Work Phone: Immature granulocytes/100 WBC (Bld) 0.600 % 0.0-0.9 [facility] Work Phone: Comment on above: IG% - Immature Granu locytes (promyelocytes, myelocytes and metamyelocytes) > 1% indicates that a LEFT SHIFT is Present. MCH (RBC) [Entitic mass] 31.4 pg 27.0-32.0 [facility] Work Phone: Nucleated RBC/100 WBC (Bld) [Ratio] 0 % 0-5 [facility] Work Phone: MCHC Auto (RBC) [Mass/Vol]on 10-25-2021 MCHC (RBC) [Mass/Vol] 35.7 g/dL 32-36 [facility] Work Phone: Mucus LM Ql (Urine sed)on Mucus Ql (Urine sed) 0 SEEN /hpf [facility] Work Phone: Nitrite Test strip Ql (U)on 10-25-2021 Nitrite Ql (U) Negative Negative [facility] Work Phone: No Panel Informationon 10-25 Ethyl Alcohol Level 6.0 mg/dL [facility] Work Phone: Comment on above: The serum:whole bloo d ethanol ratio is approximately 1.14and varies slightly with hematocrit. Medical Alcohol reference interval and critical value innon-tolerant individuals; 50 - 100 Impairment 100 Intoxication 100 - 250 Severe Poisoning 250 - 400 Deep/possible fatal coma Estimated Creatinine Clearance Calc 38.42 ml/min [facility] Work Phone: Estimated GFR (MDRD) Amer 63 mL/min >60 [facility] Work Phone: Comment on above: GFR Calc Estimated GFR (MDRD) Non-Af Amer 52 mL/min >60 [facility] Work Phone: Comment on above: Non- GFR Calc Troponin I High Sensitivity 12 pg/mL 3.0-78.0 [facility] Work Phone: Comment on above: Please Note: [place] t Units and Gender Specific Reference Ranges. For more information see Policy Stat Procedure [place] High Sensitivity Troponin (TNIH) and attachments. Platelets bldon 10-25-2021 Platelets (Bld) [#/Vol] 221 10*3/uL 150-450 [facility] Work Phone: Protein Test strip Ql (U)on 10-25-2021 Protein Ql (U) Negative Negative [facility] Work Phone: Serum or plasma albumin sita urement (mass/volume)on 10-25-2021 Albumin [Mass/Vol] 3.2 g/dL 3.2-5.0 [facility] Work Phone: Serum or plasma albumin/glob ulin mass ratioon 10-25-2021 Albumin/Globulin [Mass ratio] 1.0 {ratio} 0.9-2.4 [facility] Work Phone: Serum or plasma calcium sita urement (mass/volume)on 10-25-2021 Calcium [Mass/Vol] 7.9 mg/dL 8.5-10.1 [facility] Work Phone: Serum or plasma creatinine m easurement (mass/volume)on 10-25-2021 Creatinine [Mass/Vol] 1.38 mg/dL 0.70-1.30 [facility] Work Phone: Comment on above: The validity of the calculated GFR & GFRAA in patients over 70 years has not been determined. Clinical correlation is essential. Serum or plasma urea nitroge n measurement (mass/volume)on 10-25-2021 Urea nitrogen [Mass/Vol] 10 mg/dL 7-18 [facility] Work Phone: Serum or plasma uric acid me asurement (mass/volume)on 10-25-2021 Urate [Mass/Vol] 5.8 mg/dL 3.5-7.2 [facility] Work Phone: Comment on above: The drugs N-Acetylcy steine and Metamizole may falsely depress this assay. Squamous epithelial cells de tection in urine sediment by light microscopyon 10-25-2021 Epithelial cells.squamous LM Ql (Urine sed) 0 SEEN /hpf 0-5 [facility] Work Phone: Thin prep Papanicolaou smear with manual screeningon 10-25-2021 Thin prep Papanicolaou smear with manual screening 260 mOsm/KG 280-301 [facility] Work Phone: Thin prep Papanicolaou smear with manual screening 14 U/L 15-37 [facility] Work Phone: Thin prep Papanicolaou smear with manual screening 9 5-15 [facility] Work Phone: Urine blood detectionon RBC Ql (U) Negative Negative [facility] Work Phone: RBC Ql (U) 0 SEEN /hpf 0-5 [facility] Work Phone: Urine clarityon 10-25-2021 Clarity (U) Clear Clear [facility] Work Phone: Urine color determinationon 10-25-2021 Color (U) Yellow Yellow [facility] Work Phone: Urine glucose detectionon Glucose Ql (U) Normal mg/dl Normal [facility] Work Phone: Urine leukocyte esterase det ection by dipstickon 10-25-2021 Leukocyte esterase Test strip Ql (U) Negative Negative [facility] Work Phone: Urine osmolality measurement on 10-25-2021 Osmolality (U) [Osmolality] 314 mOsm/KG >50 [facility] Work Phone: Comment on above: Normal Urine Referen ce Ranges Random: 50 - 1200 mOsm/kg H20 depending on fluid intake Random: >850 mOsm/kg after 12 hour fluid restriction 24 hour: ~300 - 900 mOsm/kg H2O Urine pHon 10-25-2021 pH (U) 7.0 [pH] 5.0 - 8.0 [facility] Work Phone: Urine sediment bacteria coun t by microscopy (number/high power field)on 10-25-2021 Bacteria LM.HPF (Urine sed) [#/Area] 0 /[HPF] None Seen [facility] Work Phone: Urine specific gravity measu rementon 10-25-2021 Specific gravity (U) [Rel density] 1.010 1.002-1.030 [facility] Work Phone: Urobilinogen Auto test strip Ql (U)on 10-25-2021 Urobilinogen Ql (U) Normal mg/dl Normal [facility] Work Phone: Absolute lymphocyte counton 10-18-2021 Lymphocytes Auto (Unsp spec) [#/Vol] 0.65 10*3/uL 0.83-4.51 [facility] Work Phone: Basophil percentageon 2021 Basophil percentage 3.0 mg/dL 2.5-4.9 [facility] Work Phone: Basophils/100 WBC (Bld) 0.3 % 0-1 [facility] Work Phone: Bilirubin [Mass/Vol] 2.10 mg/dL 0.20-1.00 [facility] Work Phone: Comment on above: For patients on eltr ombopag therapy, use of Dimension [place] TBIL is not recommended. Chloride [Moles/Vol] 89 mmol/L 98-107 [facility] Work Phone: Eosinophils/100 WBC (Bld) 0.5 % 0-5 [facility] Work Phone: Glucose [Mass/Vol] 131 mg/dL 74-106 [facility] Work Phone: Comment on above: Fasting Glucose resu lt greater than or equal to 126 mg/dL suggests DIABETES MELLITUS per A.D.A. criteria. Neutrophils (Bld) [#/Vol] 5.0 10*3/uL 2.0-7.7 [facility] Work Phone: Neutrophils/100 WBC (Bld) 77.1 % 47-70 [facility] Work Phone: [phone] Potassium [Moles/Vol] 3.7 mmol/L 3.5-5.1 [facility] Work Phone: [phone] Protein [Mass/Vol] 5.9 g/dL 6.4-8.2 [facility] Work Phone: Sodium [Moles/Vol] 123 mmol/L 136-145 [facility] Work Phone: WBC (Bld) [#/Vol] 6.4 10*3/uL 4.4-11.0 [facility] Work Phone: [phone] Blood erythrocytes count (nu mber/volume)on 10-18-2021 RBC (Bld) [#/Vol] 3.61 10*6/uL 4.6-6.2 [facility] Work Phone: Blood hemoglobin measurement (mass/volume)on 10-18-2021 Hemoglobin (Bld) [Mass/Vol] 11.3 g/dL 13.0-16.5 [facility] Work Phone: Blood lymphocytes/100 leukoc yteson 10-18-2021 Lymphocytes/100 WBC (Bld) 10.1 % 19-41 [facility] Work Phone: Blood monocytes/100 leukocyt eson 10-18-2021 Monocytes/100 WBC (Bld) 11.5 % 0-10 [facility] Work Phone: Blood platelet mean volumeon 10-18-2021 Platelet mean volume (Bld) [Entitic vol] 11.0 fL 6.2-12.0 [facility] Work Phone: Determination of erythrocyte mean corpuscular volume (MCV)on 10-18-2021 MCV (RBC) [Entitic vol] 88.1 fL 80-94 [facility] Work Phone: Hematocrit Auto (Bld) [Volum e fraction]on 10-18-2021 Hematocrit (Bld) [Volume fraction] 31.8 % 40-54 [facility] Work Phone: Laboratory - Chemistry and C hemistry - challengeon 10-18-2021 ALP [Catalytic activity/Vol] 94 U/L 45-117 [facility] Work Phone: ALT [Catalytic activity/Vol] 18 U/L 16-61 [facility] Work Phone: CO2 [Moles/Vol] 27.0 mmol/L 21.0-32.0 [facility] Work Phone: Globulin (S) [Mass/Vol] 3.0 g/dL 2.2-4.2 [facility] Work Phone: Natriuretic peptide B (Bld) [Mass/Vol] 304.2 pg/mL 0-100 [facility] Work Phone: Urea nitrogen/Creatinine [Mass ratio] 6.8 mg/mg 10-20 [facility] Work Phone: Laboratory - Hematology and Cell countson 10-18-2021 Erythrocyte distribution width (RBC) [Entitic vol] 40.5 fL 35.1-43.9 [facility] Work Phone: Erythrocyte distribution width (RBC) [Ratio] 12.4 % 11.6-14.6 [facility] Work Phone: Immature granulocytes/100 WBC (Bld) 0.500 % 0.0-0.9 [facility] Work Phone: Comment on above: IG% - Immature Granu locytes (promyelocytes, myelocytes and metamyelocytes) > 1% indicates that a LEFT SHIFT is Present. MCH (RBC) [Entitic mass] 31.3 pg 27.0-32.0 [facility] Work Phone: Nucleated RBC/100 WBC (Bld) [Ratio] 0 % 0-5 [facility] Work Phone: MCHC Auto (RBC) [Mass/Vol]on 10-18-2021 MCHC (RBC) [Mass/Vol] 35.5 g/dL 32-36 [facility] Work Phone: No Panel Informationon 10-18 Estimated GFR (MDRD) Amer 76 mL/min >60 [facility] Work Phone: Comment on above: GFR Calc Estimated GFR (MDRD) Non-Af Amer 63 mL/min >60 [facility] Work Phone: Comment on above: Non- GFR Calc Platelets bldon 10-18-2021 Platelets (Bld) [#/Vol] 184 10*3/uL 150-450 [facility] Work Phone: Serum or plasma albumin sita urement (mass/volume)on 10-18-2021 Albumin [Mass/Vol] 2.9 g/dL 3.2-5.0 [facility] Work Phone: Serum or plasma albumin/glob ulin mass ratioon 10-18-2021 Albumin/Globulin [Mass ratio] 1.0 {ratio} 0.9-2.4 [facility] Work Phone: Serum or plasma calcium sita urement (mass/volume)on 10-18-2021 Calcium [Mass/Vol] 8.1 mg/dL 8.5-10.1 [facility] Work Phone: Serum or plasma creatinine m easurement (mass/volume)on 10-18-2021 Creatinine [Mass/Vol] 1.17 mg/dL 0.70-1.30 [facility] Work Phone: Comment on above: The validity of the calculated GFR & GFRAA in patients over 70 years has not been determined. Clinical correlation is essential. Serum or plasma urea nitroge n measurement (mass/volume)on 10-18-2021 Urea nitrogen [Mass/Vol] 8 mg/dL 7-18 [facility] Work Phone: Thin prep Papanicolaou smear with manual screeningon 10-18-2021 Thin prep Papanicolaou smear with manual screening 16 U/L 15-37 [facility] Work Phone: Thin prep Papanicolaou smear with manual screening 7 5-15 [facility] Work Phone: Absolute lymphocyte counton 07-13-2021 Lymphocytes Auto (Unsp spec) [#/Vol] 1.15 10*3/uL 0.83-4.51 [facility] Work Phone: Basophil percentageon 2021 Basophils/100 WBC (Bld) 0.5 % 0-1 [facility] Work Phone: Bilirubin [Mass/Vol] 1.80 mg/dL 0.20-1.00 [facility] Work Phone: Comment on above: For patients on eltr ombopag therapy, use of Dimension [place] TBIL is not recommended. Chloride [Moles/Vol] 99 mmol/L 98-107 [facility] Work Phone: Eosinophils/100 WBC (Bld) 2.0 % 0-5 [facility] Work Phone: Glucose [Mass/Vol] 108 mg/dL 74-106 [facility] Work Phone: Comment on above: Fasting Glucose resu lt from 100 to 125 mg/dL suggests IMPAIRED HOMEOSTASIS per A.D.A. criteria. Neutrophils (Bld) [#/Vol] 5.9 10*3/uL 2.0-7.7 [facility] Work Phone: Neutrophils/100 WBC (Bld) 73.4 % 47-70 [facility] Work Phone: [phone] Potassium [Moles/Vol] 3.4 mmol/L 3.5-5.1 [facility] Work Phone: Protein [Mass/Vol] 6.2 g/dL 6.4-8.2 [facility]: Sodium [Moles/Vol] 134 mmol/L 136-145 [facility] Work Phone: WBC (Bld) [#/Vol] 8.1 10*3/uL 4.4-11.0 [facility] Work Phone: [phone] Blood erythrocytes count (nu mber/volume)on 07-13-2021 RBC (Bld) [#/Vol] 4.12 10*6/uL 4.6-6.2 [facility]: Blood hemoglobin measurement (mass/volume)on 07-13-2021 Hemoglobin (Bld) [Mass/Vol] 13.5 g/dL 13.0-16.5 [facility] Work Phone: Blood lymphocytes/100 leukoc yteson 07-13-2021 Lymphocytes/100 WBC (Bld) 14.2 % 19-41 [facility] Work Phone: [phone] Blood monocytes/100 leukocyt eson 07-13-2021 Monocytes/100 WBC (Bld) 8.9 % 0-10 [facility] Work Phone: [phone] Blood platelet mean volumeon 07-13-2021 Platelet mean volume (Bld) [Entitic vol] 11.5 fL 6.2-12.0 [facility] Work Phone: Determination of erythrocyte mean corpuscular volume (MCV)on 07-13-2021 MCV (RBC) [Entitic vol] 90.3 fL 80-94 [facility] Work Phone: [phone] Hematocrit Auto (Bld) [Volum e fraction]on 07-13-2021 Hematocrit (Bld) [Volume fraction] 37.2 % 40-54 [facility] Work Phone: Laboratory - Chemistry and C hemistry - challengeon 07-13-2021 ALP [Catalytic activity/Vol] 111 U/L 45-117 [facility] Work Phone: ALT [Catalytic activity/Vol] 19 U/L 16-61 [facility] Work Phone: CO2 [Moles/Vol] 28.0 mmol/L 21.0-32.0 [facility] Work Phone: Globulin (S) [Mass/Vol] 3.2 g/dL 2.2-4.2 [facility] Work Phone: Urea nitrogen/Creatinine [Mass ratio] 5.3 mg/mg 10-20 [facility] Work Phone: Laboratory - Hematology and Cell countson 07-13-2021 Erythrocyte distribution width (RBC) [Entitic vol] 42.7 fL 35.1-43.9 [facility] Work Phone: Erythrocyte distribution width (RBC) [Ratio] 13.1 % 11.6-14.6 [facility] Work Phone: Immature granulocytes/100 WBC (Bld) 1.000 % 0.0-0.9 [facility] Work Phone: Comment on above: IG% - Immature Granu locytes (promyelocytes, myelocytes and metamyelocytes) > 1% indicates that a LEFT SHIFT is Present. MCH (RBC) [Entitic mass] 32.8 pg 27.0-32.0 [facility] Work Phone: Nucleated RBC/100 WBC (Bld) [Ratio] 0 % 0-5 [facility] Work Phone: MCHC Auto (RBC) [Mass/Vol]on 07-13-2021 MCHC (RBC) [Mass/Vol] 36.3 g/dL 32-36 [facility] Work Phone: No Panel Informationon 07-13 Estimated GFR (MDRD) Amer 67 mL/min >60 [facility] Work Phone: Comment on above: GFR Calc Estimated GFR (MDRD) Non-Af Amer 55 mL/min >60 [facility] Work Phone: Comment on above: Non- GFR Calc Thyroid Stimulating Hormone (TSH) 3.19 uIU/mL 0.358-3.74 [facility] Work Phone: Vitamin D 25-Hydroxy 13.3 ng/mL [facility] Work Phone: Comment on above: Vitamin D 25(OH) Sta tus Range Deficiency <20 ng/mL (50nmol/L) Insufficiency 20 - 30 ng/mL (50 - 75 nmol/L) Sufficiency 30 - 100 ng/mL (75 - 250 nmol/L) Toxicity >100 ng/mL (>250 nmol/L) Platelets bldon 07-13-2021 Platelets (Bld) [#/Vol] 216 10*3/uL 150-450 [facility] Work Phone: Serum or plasma albumin sita urement (mass/volume)on 07-13-2021 Albumin [Mass/Vol] 3.0 g/dL 3.2-5.0 [facility] Work Phone: Serum or plasma albumin/glob ulin mass ratioon 07-13-2021 Albumin/Globulin [Mass ratio] 0.9 {ratio} 0.9-2.4 [facility] Work Phone: Serum or plasma calcium sita urement (mass/volume)on 07-13-2021 Calcium [Mass/Vol] 8.2 mg/dL 8.5-10.1 [facility] Work Phone: Serum or plasma creatinine m easurement (mass/volume)on 07-13-2021 Creatinine [Mass/Vol] 1.31 mg/dL 0.70-1.30 [facility] Work Phone: Comment on above: The validity of the calculated GFR & GFRAA in patients over 70 years has not been determined. Clinical correlation is essential. Serum or plasma urea nitroge n measurement (mass/volume)on 07-13-2021 Urea nitrogen [Mass/Vol] 7 mg/dL 7-18 [facility] Work Phone: Thin prep Papanicolaou smear with manual screeningon 07-13-2021 Thin prep Papanicolaou smear with manual screening 18 U/L 15-37 [facility] Work Phone: Thin prep Papanicolaou smear with manual screening 7 5-15 [facility] Work Phone: CNOVon 05-16-2018 CNOV Office Visit (UCWSTR) ASHIA PEREZ ([id number]) 1935 MDate Time Provider Ojbwhwfgqv15/28/18 12:45 PM ANT SANDOVAL [facility] During your visit today, [...] vesicles with erythema surrounding in a left ~H14vkpzgryyceyp.ASSES SMENT/PLAN:1. Herpes zoster without complications - ICD9: [...] if further pain control is needed.Ant Sandoval, [facility]ENTEReferring Provider: SELF [[id number]]Allergies As of Date: 05/16/2018 [...] Status:Closed by ANT SANDOVAL MD on 05/16/18 [facility] PROGRESSon 05-16-2018 Protein mass conc HNO ID: [id number]: Ant Hernandezervice: (none)Author Type: PhysicianType: Progress NotesFiled: [...] vesicles with erythema surrounding in a left ~D12sjctmdieyfzb.ASSES SMENT/PLAN:1. Herpes zoster without complications - ICD9: [...] further pain control is needed.Ant Sandoval MD [facility] Office Visiton 01-15-2017 Documentation of current medications (procedure) Done Invalid Interpretation Code [facility] Work Phone: Fall risk assessment No Invalid Interpretation Code [facility] Work Phone: Protein mass conc Done [facility] Work Phone: Office Visiton 05-25-2016 Dietary management education, guidance, and counseling (procedure) yes Invalid Interpretation Code [facility] Work Phone: Documentation of current medications (procedure) Done Invalid Interpretation Code [facility] Work Phone: Clinical Lists Update: 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 Left ventricular Ejection fraction 50 % Invalid Interpretation Code [facility] Work Phone: [phone] Lab Report: Vitamin D,25 Hyd roxyon 06-24-2015 vitamin D 25-hydroxy, serum 14.8 ng/mL Invalid Interpretation Code [facility] Work Phone: [phone] Vitamin D 25-OH 14.8 ng/mL [facility] Work Phone: [phone] Lab Report: CBC W/Diff, Auto matedon 06-23-2015 Basophils/100 leukocytes 0.2 % Invalid Interpretation Code 0-1 [facility] Work Phone: [phone] Basophils/100 WBC (Bld) 0.2 % 0-1 [facility] Work Phone: [phone] Eosinophils/100 leukocytes 0.6 % Invalid Interpretation Code 0-5 [facility] Work Phone: [phone] Eosinophils/100 WBC (Bld) 0.6 % 0-5 [facility] Work Phone: [phone] Erythrocyte distribution width Ratio (RBC) 41.6 fL 35.1-43.9 [facility] Work Phone: [phone] Erythrocyte distribution width Ratio (RBC) 13.6 % 11.6-14.6 [facility] Work Phone: [phone] Erythrocytes (RBC) 4.69 10*6/uL Invalid Interpretation Code 4.6-6.2 [facility] Work Phone: [phone] Hematocrit (HCT) 39.5 % Low 40-54 [facility] Work Phone: [phone] Hematocrit Volume Fraction (Bld) 39.5 % Low 40-54 [facility] Work Phone: [phone] Hemoglobin (HGB) 13.4 g/dL Invalid Interpretation Code 13.0-16.5 [facility] Work Phone: [phone] Immature granulocytes #/vol (Bld) 0.300 % 0.0-0.9 [facility] Work Phone: [phone] immature granulocytes, percentage of total cells, blood 0.300 % Invalid Interpretation Code 0.0-0.9 [facility] Work Phone: Lymphocytes 0.84 X10 3/UL Invalid Interpretation Code 0.83-4.51 [facility] Work Phone: [phone] Lymphocytes #/vol (Bld) 0.84 X10 3/UL 0.83-4.51 [facility] Work Phone: [phone] Lymphocytes/100 leukocytes 8.8 % Low 19-41 [facility] Work Phone: [phone] Lymphocytes/100 WBC (Bld) 8.8 % Low 19-41 [facility] Work Phone: [phone] MCH 28.6 pg Invalid Interpretation Code 27.0-32.0 [facility] Work Phone: [phone] MCH Entitic mass (RBC) 28.6 pg 27.0-32.0 [facility] Work Phone: [phone] MCHC 33.9 G/GL Invalid Interpretation Code 32-36 [facility] Work Phone: [phone] MCHC mass conc (RBC) 33.9 G/GL 32-[address] [facility] Work Phone: [phone] MCV 84.2 fL Invalid Interpretation Code 80-94 [facility] Work Phone: [phone] MCV Entitic volume (RBC) 84.2 fL 80-94 [facility] Work Phone: [phone] Monocytes/100 leukocytes 11.9 % High 0-10 [facility] Work Phone: [phone] Monocytes/100 WBC (Bld) 11.9 % High 0-10 [facility] Work Phone: [phone] neutrophil count, blood 7.5 X10 3/UL Invalid Interpretation Code 2.0-7.7 [facility] Work Phone: Neutrophils #/vol (Bld) 7.5 X10 3/UL 2.0-7.7 [facility] Work Phone: Neutrophils/100 leukocytes 78.2 % High 47-70 [facility] Work Phone: Neutrophils/100 WBC (Bld) 78.2 % High 47-70 [facility] Work Phone: Platelet mean volume Entitic volume (Bld) 10.6 fL 6.2-12.0 [facility] Work Phone: [phone] Platelets 329 10*3/mm3 Invalid Interpretation Code 150-450 [facility] Work Phone: [phone] Platelets #/vol (Bld) 329 10*3/mm3 150-450 [facility] Work Phone: [phone] PMV by Doc 10.6 fL Invalid Interpretation Code 6.2-12.0 [facility] Work Phone: [phone] RBC #/vol (Bld) 4.69 10*6/uL 4.6-6.2 [facility] Work Phone: [phone] RDW-CA 13.6 % Invalid Interpretation Code 11.6-14.6 [facility] Work Phone: [phone] red blood cell distribution width, size density 41.6 fL Invalid Interpretation Code 35.1-43.9 [facility] Work Phone: [phone] WBC #/vol (Bld) 9.6 10*3/uL 4.4-11.0 [facility] Work Phone: [phone] WBC (Leukocytes) 9.6 10*3/uL Invalid Interpretation Code 4.4-11.0 [facility] Work Phone: [phone] Lab Report: Thyroid Stim Hor marino (TSH)on 06-23-2015 Thyroid stimulating hormone (TSH) 1.72 u[iU]/mL Invalid Interpretation Code 0.358-3.74 [facility] Work Phone: [phone] Office Visiton 05-31-2015 General cardiovascular disease 10Y risk [#] [place].D'Agostino 18 % Invalid Interpretation Code [facility] [place] Phone: [phone] Tobacco smoking status NHIS Never smoker [facility] Work Phone: [phone] Tobacco use CPHS Never smoker Invalid Interpretation Code [facility] [place] Phone: [phone] Clinical Lists Update: 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 Alanine aminotransferase (ALT) 43 U/L Invalid Interpretation Code [facility] Work Phone: [phone] Albumin 2.3 g/dL Low [facility] Work Phone: [phone] Albumin/Globulin Ratio 0.7 {ratio} Low [facility] Work Phone: [phone] Alkaline phosphatase (ALP) 183 U/L High [facility] Work Phone: [phone] ALP enzyme act/vol (Bld) 183 U/L High [facility] Work Phone: [phone] Anion gap 6 mmol/L Invalid Interpretation Code [facility] Work Phone: [phone] Anion gap molar conc 6 mmol/L [facility] Work Phone: [phone] Aspartate aminotransferase (AST) 33 U/L Invalid Interpretation Code [facility] Work Phone: [phone] basophils as percent of blood leukocytes, manual count 0.1 % Invalid Interpretation Code [facility] Work Phone: [phone] Bilirubin (total) 1.80 mg/dL Invalid Interpretation Code [facility] Work Phone: [phone] BUN/Creatinine Ratio 9.0 mg/mg Low [facility] Work Phone: [phone] Calcium 7.3 mg/dL Low [facility] Work Phone: [phone] Chloride 99 mmol/L Invalid Interpretation Code [facility] Work Phone: [phone] CO2 29.0 mmol/L Invalid Interpretation Code [facility] Work Phone: [phone] CO2 ppres (BldV) 29.0 mmol/L [facility] Work Phone: [phone] Creatinine 1.0 mg/dL Invalid Interpretation Code [facility] Work Phone: [phone] eosinophils as percent of blood leukocytes, manual count 0.4 % Invalid Interpretation Code [facility] Work Phone: [phone] Globulin 3.5 g/dL Invalid Interpretation Code [facility] Work Phone: [phone] Globulin mass conc (S) 3.5 g/dL [facility] Work Phone: [phone] Glucose 182 mg/dL High [facility] Work Phone: [phone] Glucose mass conc 182 mg/dL High [facility] Work Phone: [phone] Magnesium 1.4 mg/dL Low [facility] Work Phone: [phone] neutrophils, band form as percent of blood leukocytes, manual count 86.9 % High [facility] Work Phone: [phone] Potassium 4.1 mmol/L Invalid Interpretation Code [facility] Work Phone: [phone] Protein 5.8 g/dL Low [facility] Work Phone: [phone] Sodium 134 mmol/L Low [facility] Work Phone: [phone] Urea nitrogen 9 mg/dL Invalid Interpretation Code [facility] Work Phone: [phone] Replaced Document: Sachi Soto 09-28-2014 BUN (urea nitrogen) Atrial 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 ABNORMAL Invalid Interpretation Code [facility] Work Phone: [phone] EKG QRS axis -52 deg [facility] Work Phone: [phone] GE use only - for [employer] import when terms are not otherwise specified 506 ms Invalid Interpretation Code [facility] Work Phone: [phone] Interpretation Atrial 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 ABNORMAL [facility] Work Phone: [phone] P [place] -140 deg [facility] Work Phone: [phone] P wave axis, electrocardiogram -140 deg Invalid Interpretation Code [facility] Work Phone: [phone] MN Interval 0 ms [facility] Work Phone: [phone] MN interval, electrocardiogram 0 ms Invalid Interpretation Code [facility] Work Phone: [phone] Pulse (Heart Rate) 65 /min Invalid Interpretation Code [facility] Work Phone: [phone] QRS axis, electrocardiogram -52 deg Invalid Interpretation Code [facility] Work Phone: [phone] QRS Duration 156 ms [facility] Work Phone: [phone] QRS duration, electrocardiogram 156 ms Invalid Interpretation Code [facility] Work Phone: [phone] QT Interval new path ms [facility] Work Phone: [phone] QT interval, electrocardiogram new path ms Invalid Interpretation Code [facility] Work Phone: [phone] QTc [place] 506 ms [facility] Work Phone: [phone] T [place] -1 deg [facility] Work Phone: [phone] T wave axis, electrocardiogram -1 deg Invalid Interpretation Code [facility] Work Phone: [phone] Lab Report: Lipid Profileon 05-28-2014 Cholesterol 120 mg/dL Invalid Interpretation Code 200 [facility] Work Phone: [phone] HDL Cholesterol 49 mg/dL Invalid Interpretation Code [facility] Work Phone: [phone] LDL Cholesterol 58 mg/dL Invalid Interpretation Code 0-130 [facility] Work Phone: [phone] Triglyceride 67 mg/dL Invalid Interpretation Code 0-199 [facility] Work Phone: [phone] very low density lipoproteins 13 mg/dL Invalid Interpretation Code 5-40 [facility] Work Phone: [phone] Lab Report: Liver Profileon 05-28-2014 Bilirubin (direct) 0.38 mg/dL Critically high 0.00-0.30 [facility] Work Phone: [phone] Globulin 3.2 g/dL Invalid Interpretation Code 2.7-4.2 [facility] Work Phone: [phone] Globulin mass conc (S) 3.2 g/dL 2.7-4.2 [facility] Work Phone: [phone] Lab Report: T4 Total, Thyrox inon 05-28-2014 Thyroxine (T4) 7.3 ug/dL Invalid Interpretation Code 4.5-12.1 [facility] Work Phone: [phone] Office Visiton 05-26-2014 Alcoholism counseling (procedure) yes Invalid Interpretation Code [facility] Work Phone: [phone] cardiac risk group C Invalid Interpretation Code [facility] Phone: [phone] Protein mass conc yes [facility] Work Phone: Vital Signs Date Time Vital Sign Value Performing Clinician Saul de la rosa 12-08-2024 17:06-0400 Body temperature 98.7 [degF] Dr. Bernard Nugent MD Work Phone: [facility] 12-08-2024 17:06-0400 Diastolic blood pressure 71 mm[Hg] Dr. Bernard Nugent MD Work Phone: 4(635)983-369108 [place] [address] 12-08-2024 17:06-0400 Heart rate 61 /min Dr. Bernard Nugent MD Work Phone: 3(718)580-028208 [place] [address] 12-08-2024 17:06-0400 Respiratory rate 18 /min Dr. Bernard Nugent MD Work Phone: 4(800)401-638769 [place] [address] 12-08-2024 17:06-0400 SaO2% (BldA) [Mass fraction] 98 % Dr. Bernard Nugent MD Work Phone: 1(688)677-185669 [place] [address] 12-08-2024 17:06-0400 Systolic blood pressure 151 mm[Hg] Dr. Bernard Nugent MD Work Phone: 0(217)241-930469 [place] [address] 12-03-2024 16:52-0400 Body height 177.[address] Bernard Nugent MD Work Phone: 0(512)275-268508 [place] [address] 12-03-2024 16:52-0400 Body mass index (BMI) [Ratio] 27.8 kg/m2 Dr. Bernard Nugent MD Work Phone: 1(250)140-456308 [place] [address] 12-03-2024 16:52-0400 Body weight 88.[address] Bernard Nugent MD Work Phone: 6(885)432-024908 [place] [address] 12-03-2024 16:10-0400 Body temperature 98.1 [degF] Dr. Bernard Nugent MD Work Phone: 6(941)422-348708 [place] [address] 12-03-2024 16:10-0400 Diastolic blood pressure 77 mm[Hg] Dr. Bernard Nugent MD Work Phone: 8(608)777-678908 [place] [address] 12-03-2024 16:10-0400 Heart rate 61 /min Dr. Bernard Nugent MD Work Phone: 0(527)229-806464 [address] 12-03-2024 16:10-0400 Respiratory rate 16 /min Dr. Bernard Nugent MD Work Phone: 8(010)650-007408 [place] [address] 12-03-2024 16:10-0400 SaO2% (BldA) [Mass fraction] 95 % Dr. Bernard Nugent MD Work Phone: 7(642)744-717308 [place] [address] 12-03-2024 16:10-0400 Systolic blood pressure 136 mm[Hg] Dr. Bernard Nugent MD Work Phone: 9(214)986-927469 [place] [address] 12-03-2024 12:20-0400 Body height 177.[address] Bernard Nugent MD Work Phone: 9(636)804-365069 [place] [address] 12-03-2024 12:20-0400 Body mass index (BMI) [Ratio] 28.4 kg/m2 Dr. Bernard Nugent MD Work Phone: 4(744)561-346069 [place] [address] 12-03-2024 12:20-0400 Body weight 89.[address] Bernard Nugent MD Work Phone: 7(647)889-656969 [place] [address] 11-26-2024 11:17-0400 Body height 177.[address] Bernard Nugent MD Work Phone: 5(329)685-709069 [place] [address] 11-26-2024 11:17-0400 Body mass index (BMI) [Ratio] 28.8 kg/m2 Dr. Bernard Nugent MD Work Phone: 8(118)711-780469 [place] [address] 11-26-2024 11:17-0400 Body temperature 97.5 [degF] Dr. Bernard Nugent MD Work Phone: 1(583)959-889169 [place] [address] 11-26-2024 11:17-0400 Body weight 91.[address] Bernard Nugent MD Work Phone: 0(482)593-199208 [place] [address] 11-26-2024 11:17-0400 Diastolic blood pressure 75 mm[Hg] Dr. Bernard Nugent MD Work Phone: 6(428)236-737308 [place] [address] 11-26-2024 11:17-0400 Heart rate 59 /min Dr. Bernard Nugent MD Work Phone: 7(680)752-127908 [place] [address] 11-26-2024 11:17-0400 Respiratory rate 16 /min Dr. Bernard Nugent MD Work Phone: 0(858)103-043308 [place] [address] 11-26-2024 11:17-0400 SaO2% (BldA) [Mass fraction] 92 % Dr. Bernard Nugent MD Work Phone: 0(706)960-290308 [place] [address] 11-26-2024 11:17-0400 Systolic blood pressure 143 mm[Hg] Dr. Bernard Nugent MD Work Phone: 3(082)203-249069 [place] [address] 11-14-2024 11:27-0400 Body temperature 97.6 [degF] Dr. Bernard Nugent MD Work Phone: 5(881)096-878269 [place] [address] 11-14-2024 11:27-0400 Diastolic blood pressure 70 mm[Hg] Dr. Bernard Nugent MD Work Phone: 1(029)988-622569 [place] [address] 11-14-2024 11:27-0400 Heart rate 61 /min Dr. Bernard Nugent MD Work Phone: 4(829)110-066969 [place] [address] 11-14-2024 11:27-0400 Respiratory rate 16 /min Dr. Bernard Nugent MD Work Phone: 4(872)137-887469 [place] [address] 11-14-2024 11:27-0400 SaO2% (BldA) [Mass fraction] 99 % Dr. Bernard Nugent MD Work Phone: 8(414)014-154869 [place] [address] 11-14-2024 11:27-0400 Systolic blood pressure 159 mm[Hg] Dr. Bernard Nugent MD Work Phone: 0(456)286-489308 [place] [address] 11-14-2024 06:00-0400 Body mass index (BMI) [Ratio] 28.5 kg/m2 Dr. Bernard Nugent MD Work Phone: 9(713)956-236708 [place] [address] 11-14-2024 06:00-0400 Body weight 90.[address] Bernard Nugent MD Work Phone: 6(487)906-709369 [place] [address] 11-13-2024 22:50-0400 Diastolic blood pressure 71 mm[Hg] Dr. Bernard Nugent MD Work Phone: 0(980)499-673869 [place] [address] 11-13-2024 22:50-0400 Heart rate 67 /min Dr. Bernard Nugent MD Work Phone: 3(677)511-446008 [place] [address] 11-13-2024 22:50-0400 Systolic blood pressure 160 mm[Hg] Dr. Bernard Nugent MD Work Phone: 0(398)946-125008 [place] [address] 11-13-2024 14:02-0400 Body temperature 97.8 [degF] Dr. Bernard Nugent MD Work Phone: 1(788)881-810169 [place] [address] 11-13-2024 14:02-0400 Respiratory rate 18 /min Dr. Bernard Nugent MD Work Phone: 3(281)000-773008 [place] [address] 11-13-2024 14:02-0400 SaO2% (BldA) [Mass fraction] 95 % Dr. Bernard Nugent MD Work Phone: 2(667)294-952269 [place] [address] 11-13-2024 05:17-0400 Body mass index (BMI) [Ratio] 28.5 kg/m2 Dr. Bernard Nugent MD Work Phone: 7(790)639-506808 [place] [address] 11-13-2024 05:17-0400 Body weight 90.[address] Bernard Nugent MD Work Phone: 6(135)639-733469 [place] [address] 11-12-2024 12:57-0400 Body height 177.[address] Bernard Nugent MD Work Phone: 2(291)100-674369 [place] [address] 11-11-2024 22:34-0400 Body temperature 98 [degF] Dr. Bernard Nugent MD Work Phone: 4(472)497-678608 [place] [address] 11-11-2024 22:34-0400 Diastolic blood pressure 85 mm[Hg] Dr. Bernard Nugent MD Work Phone: 4(456)964-408908 [place] [address] 11-11-2024 22:34-0400 Heart rate 59 /min Dr. Bernard Nugent MD Work Phone: 4(254)968-400808 [place] [address] 11-11-2024 22:34-0400 Respiratory rate 26 /min Dr. Bernard Nugent MD Work Phone: 8(435)110-514308 [place] [address] 11-11-2024 22:34-0400 SaO2% (BldA) [Mass fraction] 97 % Dr. Bernard Nugent MD Work Phone: 2(766)541-283208 [place] [address] 11-11-2024 22:34-0400 Systolic blood pressure 160 mm[Hg] Dr. Bernard Nugent MD Work Phone: 2(033)109-842669 [place] [address] 11-11-2024 22:28-0400 Body mass index (BMI) [Ratio] 28.7 kg/m2 Dr. Bernard Nugent MD Work Phone: 8(761)224-650969 [place] [address] 11-11-2024 22:28-0400 Body weight 90.[address] Bernard Nugent MD Work Phone: 6(728)810-315969 [place] [address] 11-11-2024 15:49-0400 Body height 177.[address] Bernard Nugent MD Work Phone: 9(774)313-616269 [place] [address] 07-03-2024 14:34-0500 Body height 177.[address] Bernard Nugent MD Work Phone: 5(873)591-318269 [place] [address] 07-03-2024 14:34-0500 Body mass index (BMI) [Ratio] 33.1 kg/m2 Dr. Bernard Nugent MD Work Phone: 2(916)193-663469 [place] [address] 07-03-2024 14:34-0500 Body temperature 98.3 [degF] Dr. Bernard Nugent MD Work Phone: 5(141)220-465069 [place] [address] 07-03-2024 14:34-0500 Body weight 104.[address] Bernard Nugent MD Work Phone: 3(711)877-202469 [place] [address] 07-03-2024 14:34-0500 Diastolic blood pressure 76 mm[Hg] Dr. Bernard Nugent MD Work Phone: 6(275)524-565969 [place] [address] 07-03-2024 14:34-0500 Heart rate 85 /min Dr. Bernard Nugent MD Work Phone: 7(864)871-599308 [place] [address] 07-03-2024 14:34-0500 Respiratory rate 16 /min Dr. Bernard Nugent MD Work Phone: 4(915)436-990808 [place] [address] 07-03-2024 14:34-0500 SaO2% (BldA) [Mass fraction] 98 % Dr. Bernard Nugent MD Work Phone: [facility] 07-03-2024 14:34-0500 Systolic blood pressure 180 mm[Hg] Dr. Bernard Nugent MD Work Phone: [facility] 03-31-2024 11:41-0500 Body mass index (BMI) [Ratio] 30.1 kg/m2 Dr. Bernard Nugent MD Work Phone: 6(500)544-367869 [place] [address] 03-31-2024 11:41-0500 Body weight 95.[address] Bernard Nugent MD Work Phone: 3(617)025-746669 [place] [address] 03-31-2024 11:41-0500 Diastolic blood pressure 76 mm[Hg] Dr. Bernard Nugent MD Work Phone: 1(218)437-401069 [place] [address] 03-31-2024 11:41-0500 Heart rate 59 /min Dr. Bernard Nugent MD Work Phone: 4(201)003-385669 [place] [address] 03-31-2024 11:41-0500 Respiratory rate 16 /min Dr. Bernard Nugent MD Work Phone: 4(779)840-221169 [place] [address] 03-31-2024 11:41-0500 Systolic blood pressure 153 mm[Hg] Dr. Bernard Nugent MD Work Phone: 2(720)266-138508 [place] [address] 07-11-2023 11:28-0500 Diastolic blood pressure 70 mm[Hg] Dr. Bernard Nugent Work Phone: 8(069)948-270608 [place] [address] 07-11-2023 11:28-0500 Systolic blood pressure 150 mm[Hg] Dr. Bernard Nugent Work Phone: 8(744)073-783708 [place] [address] 07-11-2023 08:37-0500 Body height 177.[address] Bernard Nugent Work Phone: 7(490)186-151269 [place] [address] 07-11-2023 08:37-0500 Body mass index (BMI) [Ratio] 29 kg/m2 Dr. Bernard Nugent Work Phone: 2(401)036-547269 [place] [address] 07-11-2023 08:37-0500 Body weight 91.[address] Bernard Nugent Work Phone: [facility] 07-11-2023 08:37-0500 Heart rate 57 /min Dr. Bernard Nugent Work Phone: [facility] 07-11-2023 08:37-0500 Respiratory rate 20 /min Dr. Bernard Nugent Work Phone: [facility] 07-11-2023 08:37-0500 SaO2% (BldA) [Mass fraction] 99 % Dr. Bernard Nugent Work Phone: [facility] 07-07-2023 16:43-0500 Body temperature 97 [degF] Dr. Bernard Nugent Work Phone: 5(116)123-577408 [place] [address] 07-07-2023 16:43-0500 Diastolic blood pressure 70 mm[Hg] Dr. Bernard Nugent Work Phone: 1(653)839-683308 [place] [address] 07-07-2023 16:43-0500 Heart rate 82 /min Dr. Bernard Nugent Work Phone: [facility] 07-07-2023 16:43-0500 Respiratory rate 18 /min Dr. Bernard Nugent Work Phone: [facility] 07-07-2023 16:43-0500 SaO2% (BldA) [Mass fraction] 96 % Dr. Bernard Nugent Work Phone: [facility] 07-07-2023 16:43-0500 Systolic blood pressure 160 mm[Hg] Dr. Bernard Nugent Work Phone: [facility] 07-07-2023 11:16-0500 Body height 177.[address] Bernard Nugent Work Phone: [facility] 07-07-2023 11:16-0500 Body mass index (BMI) [Ratio] 29.8 kg/m2 Dr. Bernard Nugent Work Phone: [facility] 07-07-2023 11:16-0500 Body weight 94.[address] Bernard Nugent Work Phone: 5(633)333-737308 [place] [address] 05-26-2023 17:48-0500 Body height 177.[address] Bernard Nugent Work Phone: [facility] 05-26-2023 17:48-0500 Body mass index (BMI) [Ratio] 30.2 kg/m2 Dr. Bernard Nugent Work Phone: [facility] 05-26-2023 17:48-0500 Body temperature 96.6 [degF] Dr. Bernard Nugent Work Phone: [facility] 05-26-2023 17:48-0500 Body weight 95.[address] Bernard Nugent Work Phone: 7(415)888-059808 [place] [address] 05-26-2023 17:48-0500 Diastolic blood pressure 92 mm[Hg] Dr. Bernard Nugent Work Phone: 3(255)927-088208 [place] [address] 05-26-2023 17:48-0500 Heart rate 59 /min Dr. Bernard Nugent Work Phone: 9(732)282-561208 [place] [address] 05-26-2023 17:48-0500 Respiratory rate 16 /min Dr. Bernard Nugent Work Phone: [facility] 05-26-2023 17:48-0500 SaO2% (BldA) [Mass fraction] 99 % Dr. Bernard Nugent Work Phone: [facility] 05-26-2023 17:48-0500 Systolic blood pressure 181 mm[Hg] Dr. Bernard Nugent Work Phone: [facility] 03-24-2023 12:31-0500 Diastolic blood pressure 70 mm[Hg] Dr. Bernard Nugent Work Phone: [facility] 03-24-2023 12:31-0500 Heart rate 76 /min Dr. Bernard Nugent Work Phone: [facility] 03-24-2023 12:31-0500 Respiratory rate 15 /min Dr. Bernard Nugent Work Phone: [facility] 03-24-2023 12:31-0500 SaO2% (BldA) [Mass fraction] 97 % Dr. Bernard Nugent Work Phone: [facility] 03-24-2023 12:31-0500 Systolic blood pressure 190 mm[Hg] Dr. Bernard Nugent Work Phone: 9(604)605-930008 [place] [address] 03-24-2023 09:50-0500 Body height 177.[address] Bernard Nugent Work Phone: 2(381)962-687408 [place] [address] 03-24-2023 09:50-0500 Body mass index (BMI) [Ratio] 28.3 kg/m2 Dr. Bernard Nugent Work Phone: 7(860)584-944508 [place] [address] 03-24-2023 09:50-0500 Body temperature 98 [degF] Dr. Bernard Nugent Work Phone: 8(367)816-948969 [place] [address] 03-24-2023 09:50-0500 Body weight 89.[address] Bernard Nugent Work Phone: 7(676)096-042864 [address] 02-01-2023 15:07-0400 Body height 177.[address] Bernard Nugent Work Phone: 0(990)145-280769 [place] [address] 02-01-2023 15:07-0400 Body mass index (BMI) [Ratio] 28.4 kg/m2 Dr. Bernard Nugent Work Phone: 5(754)428-398869 [place] [address] 02-01-2023 15:07-0400 Body weight 89.[address] Bernard Nugent Work Phone: 3(184)769-040669 [place] [address] 02-01-2023 15:07-0400 Diastolic blood pressure 81 mm[Hg] Dr. Bernard Nugent Work Phone: 7(814)836-679808 [place] [address] 02-01-2023 15:07-0400 Heart rate 56 /min Dr. Bernard Nugent Work Phone: 1(491)497-884008 [place] [address] 02-01-2023 15:07-0400 Respiratory rate 16 /min Dr. Bernard Nugent Work Phone: 5(925)496-928008 [place] [address] 02-01-2023 15:07-0400 Systolic blood pressure 135 mm[Hg] Dr. Bernard Nugent Work Phone: 7(564)287-230264 [address] 09-25-2022 08:12-0400 Body temperature 97.6 [degF] Dr. Bernard Nugent Work Phone: [facility] 09-25-2022 08:12-0400 Diastolic blood pressure 78 mm[Hg] Dr. Bernard Nugent Work Phone: [facility] 09-25-2022 08:12-0400 Heart rate 55 /min Dr. Bernard Nugent Work Phone: [facility] 09-25-2022 08:12-0400 Respiratory rate 15 /min Dr. Bernard Nugent Work Phone: 7(102)770-368408 [place] [address] 09-25-2022 08:12-0400 SaO2% (BldA) [Mass fraction] 96 % Dr. Bernard Nugent Work Phone: [facility] 09-25-2022 08:12-0400 Systolic blood pressure 168 mm[Hg] Dr. Bernard Nugent Work Phone: 1(055)961-232908 [place] [address] 09-24-2022 11:20-0400 Body height 177.[address] Bernard Nugent Work Phone: 0(845)012-169408 [place] [address] 09-24-2022 11:20-0400 Body weight 92.[address] Bernard Nugent Work Phone: 1(188)732-297408 [place] [address] 09-21-2022 10:16-0400 Body mass index (BMI) [Ratio] 29.1 kg/m2 Dr. Bernard Nugent Work Phone: [facility] 06-19-2022 10:54-0500 Body height 177.[address] Bernard Nugent Work Phone: [facility] 06-19-2022 10:54-0500 Body mass index (BMI) [Ratio] 29.1 kg/m2 Dr. Bernard Nugent Work Phone: [facility] 06-19-2022 10:54-0500 Body weight 92.[address] Bernard Nugent Work Phone: [facility] 06-19-2022 10:54-0500 Diastolic blood pressure 82 mm[Hg] Dr. Bernard Nugent Work Phone: [facility] 06-19-2022 10:54-0500 Diastolic blood pressure 70 mm[Hg] Dr. Bernard Nugent Work Phone: [facility] 06-19-2022 10:54-0500 Heart rate 50 /min Dr. Bernard Nugent Work Phone: [facility] 06-19-2022 10:54-0500 Respiratory rate 24 /min Dr. Bernard Nugent Work Phone: [facility] 06-19-2022 10:54-0500 Systolic blood pressure 144 mm[Hg] Dr. Bernard Nugent Work Phone: [facility] 06-19-2022 10:54-0500 Systolic blood pressure 160 mm[Hg] Dr. Bernard Nugent Work Phone: [facility] 06-19-2022 10:54-0500 Body mass index (BMI) [Ratio] 28.5 kg/m2 Dr. Bernard Nugent Work Phone: [facility] 06-19-2022 10:54-0500 Body weight 90.[address] Bernard Nugent Work Phone: [facility] 06-19-2022 10:54-0500 Heart rate 72 /min Dr. Bernard Nugent Work Phone: [facility] 06-19-2022 10:54-0500 Respiratory rate 18 /min Dr. Bernard Nugent Work Phone: [facility] 06-19-2022 10:54-0500 SaO2% (BldA) [Mass fraction] 99 % Dr. Bernard Nugent Work Phone: [facility] 02-28-2022 13:08-0400 Body temperature 97.2 [degF] Dr. Bernard Nugent Work Phone: [facility] Work Phone: 02-28-2022 13:08-0400 Body weight 90.[address] Bernard Nugent Work Phone: [facility] Work Phone: 02-28-2022 13:08-0400 Diastolic blood pressure 84 mm[Hg] Dr. Bernard Nugent Work Phone: [facility] Work Phone: 02-28-2022 13:08-0400 Heart rate 76 /min Dr. Bernard Nugent Work Phone: [facility] Work Phone: 02-28-2022 13:08-0400 Respiratory rate 18 /min Dr. Bernard Nugent Work Phone: [facility] Work Phone: 02-28-2022 13:08-0400 Systolic blood pressure 168 mm[Hg] Dr. Bernard Nugent Work Phone: [facility] Work Phone: 02-04-2022 23:53-0400 Diastolic blood pressure 73 mm[Hg] Dr. Bernard Nugent Work Phone: [facility] Work Phone: 02-04-2022 23:53-0400 Heart rate 48 /min Dr. Bernard Nugent Work Phone: [facility] Work Phone: 02-04-2022 23:53-0400 Respiratory rate 19 /min Dr. Bernard Nugent Work Phone: [facility] Work Phone: 02-04-2022 23:53-0400 SaO2% (BldA) [Mass fraction] 97 % Dr. Bernard Nugent Work Phone: [facility] Work Phone: 02-04-2022 23:53-0400 Systolic blood pressure 183 mm[Hg] Dr. Bernard Nugent Work Phone: [facility] Work Phone: 02-04-2022 21:39-0400 Body height 177.[address] Bernard Nugent Work Phone: [facility] Work Phone: 02-04-2022 21:39-0400 Body mass index (BMI) [Ratio] 29.5 kg/m2 Dr. Bernard Nugent Work Phone: [facility] Work Phone: 02-04-2022 21:39-0400 Body temperature 97.3 [degF] Dr. Bernard Nugent Work Phone: [facility] Work Phone: 02-04-2022 21:39-0400 Body weight 93.[address] Bernard Nugent Work Phone: [facility] Work Phone: 01-24-2022 13:06-0400 Body height 177.[address] Bernard Nugent Work Phone: [facility] Work Phone: 01-24-2022 13:02-0400 Diastolic blood pressure 72 mm[Hg] Dr. Bernard Nugent Work Phone: [facility] Work Phone: 01-24-2022 13:02-0400 Systolic blood pressure 142 mm[Hg] Dr. Bernard Nugent Work Phone: [facility] Work Phone: 12-22-2021 15:00-0400 Heart rate 59 /min Dr. Bernard Nugent Work Phone: [facility] Work Phone: 12-22-2021 14:21-0400 Body temperature 97.9 [degF] Dr. Bernard Nugent Work Phone: [facility] Work Phone: 12-22-2021 14:21-0400 Diastolic blood pressure 86 mm[Hg] Dr. Bernard Nugent Work Phone: [facility] Work Phone: 12-22-2021 14:21-0400 Respiratory rate 16 /min Dr. Bernard Nugent Work Phone: [facility] Work Phone: 12-22-2021 14:21-0400 SaO2% (BldA) [Mass fraction] 98 % Dr. Bernard Nugent Work Phone: [facility] Work Phone: 12-22-2021 14:21-0400 Systolic blood pressure 144 mm[Hg] Dr. Bernard Nugent Work Phone: [facility] Work Phone: 12-22-2021 06:00-0400 Body weight 92.[address] Bernard Nugent Work Phone: [facility] Work Phone: 12-21-2021 17:04-0400 Body height 177.[address] Bernard Nugent Work Phone: [facility] Work Phone: 12-21-2021 17:04-0400 Body mass index (BMI) [Ratio] 29.7 kg/m2 Dr. Bernard Nugent Work Phone: [facility] Work Phone: 12-21-2021 17:04-0400 Body weight 93.[address] Bernard Nugent Work Phone: [facility] Work Phone: 12-21-2021 16:41-0400 Body temperature 98.1 [degF] Dr. Bernard Nugent Work Phone: [facility] Work Phone: 12-21-2021 16:41-0400 Diastolic blood pressure 98 mm[Hg] Dr. Bernard Nugent Work Phone: [facility] Work Phone: 12-21-2021 16:41-0400 Heart rate 37 /min Dr. Bernard Nugent Work Phone: [facility] Work Phone: 12-21-2021 16:41-0400 Respiratory rate 18 /min Dr. Bernard Nugent Work Phone: [facility] Work Phone: 12-21-2021 16:41-0400 SaO2% (BldA) [Mass fraction] 96 % Dr. Bernard Nugent Work Phone: [facility] Work Phone: 12-21-2021 16:41-0400 Systolic blood pressure 176 mm[Hg] Dr. Bernard Nugent Work Phone: [facility] Work Phone: 12-19-2021 11:46-0400 Diastolic blood pressure 101 mm[Hg] Dr. Bernard Nugent Work Phone: [facility] Work Phone: 12-19-2021 11:46-0400 Heart rate 101 /min Dr. Bernard Nugent Work Phone: [facility] Work Phone: 12-19-2021 11:46-0400 Respiratory rate 16 /min Dr. Bernard Nugent Work Phone: [facility] Work Phone: 12-19-2021 11:46-0400 SaO2% (BldA) [Mass fraction] 98 % Dr. Bernard Nugent Work Phone: [facility] Work Phone: 12-19-2021 11:46-0400 Systolic blood pressure 153 mm[Hg] Dr. Bernard Nugent Work Phone: [facility] Work Phone: 12-19-2021 10:20-0400 Body temperature 97 [degF] Dr. Bernard Nugent Work Phone: [facility] Work Phone: 12-19-2021 10:04-0400 Body height 177.[address] Bernard Nugent Work Phone: [facility] Work Phone: 12-19-2021 10:04-0400 Body mass index (BMI) [Ratio] 30.1 kg/m2 Dr. Bernard Nugent Work Phone: [facility] Work Phone: 12-19-2021 10:04-0400 Body weight 95.[address] Bernard Nugent Work Phone: [facility] Work Phone: 12-07-2021 10:01-0400 Diastolic blood pressure 70 mm[Hg] Dr. Bernard Nugent Work Phone: [facility] Work Phone: 12-07-2021 10:01-0400 Systolic blood pressure 144 mm[Hg] Dr. Bernard Nugent Work Phone: [facility] Work Phone: 12-07-2021 10:00-0400 Body mass index (BMI) [Ratio] 30.1 kg/m2 Dr. Bernard Nugent Work Phone: [facility] Work Phone: 12-07-2021 10:00-0400 Body weight 95.[address] Bernard Nugent Work Phone: [facility] Work Phone: 12-07-2021 10:00-0400 Heart rate 52 /min Dr. Bernard Nugent Work Phone: [facility] Work Phone: 12-07-2021 10:00-0400 Respiratory rate 18 /min Dr. Bernard Nugent Work Phone: [facility] Work Phone: 12-07-2021 10:00-0400 SaO2% (BldA) [Mass fraction] 97 % Dr. Bernard Nugent Work Phone: [facility] Work Phone: 10-26-2021 13:34-0400 Body temperature 97.4 [degF] Dr. Bernard Nugent Work Phone: [facility] Work Phone: 10-26-2021 13:34-0400 Diastolic blood pressure 64 mm[Hg] Dr. Bernard Nugent Work Phone: [facility] Work Phone: 10-26-2021 13:34-0400 Heart rate 63 /min Dr. Bernard Nugent Work Phone: [facility] Work Phone: 10-26-2021 13:34-0400 Respiratory rate 16 /min Dr. Bernard Nugent Work Phone: [facility] Work Phone: 10-26-2021 13:34-0400 SaO2% (BldA) [Mass fraction] 95 % Dr. Bernard Nugent Work Phone: [facility] Work Phone: 10-26-2021 13:34-0400 Systolic blood pressure 143 mm[Hg] Dr. Bernard Nugent Work Phone: [facility] Work Phone: 10-26-2021 00:01-0400 Body height 177.[address] Bernard Nugent Work Phone: [facility] Work Phone: 10-26-2021 00:01-0400 Body mass index (BMI) [Ratio] 29.7 kg/m2 Dr. Bernard Nugent Work Phone: [facility] Work Phone: 10-26-2021 00:01-0400 Body weight 94.[address] Bernard Nugent Work Phone: [facility] Work Phone: 10-25-2021 23:03-0400 Body temperature 98 [degF] Dr. Bernard Nugent Work Phone: [facility] Work Phone: 10-25-2021 23:03-0400 Diastolic blood pressure 68 mm[Hg] Dr. Bernard Nugent Work Phone: [facility] Work Phone: 10-25-2021 23:03-0400 Heart rate 61 /min Dr. Bernard Nugent Work Phone: [facility] Work Phone: 10-25-2021 23:03-0400 Respiratory rate 18 /min Dr. Bernard Nugent Work Phone: [facility] Work Phone: 10-25-2021 23:03-0400 SaO2% (BldA) [Mass fraction] 98 % Dr. Bernard Nugent Work Phone: [facility] Work Phone: 10-25-2021 23:03-0400 Systolic blood pressure 152 mm[Hg] Dr. Bernard Nugent Work Phone: [facility] Work Phone: 10-25-2021 20:34-0400 Body height 175.[address] Bernard Nugent Work Phone: [facility] Work Phone: 10-25-2021 20:34-0400 Body mass index (BMI) [Ratio] 31.9 kg/m2 Dr. Bernard Nugent Work Phone: [facility] Work Phone: 10-25-2021 20:34-0400 Body weight 98.[address] Bernard Nugent Work Phone: [facility] Work Phone: 01-15-2017 14:04-0400 BMI (Body Mass Index) 30.8 kg/m2 [facility]sy [facility] Work Phone: 01-15-2017 14:04-0400 BP Diastolic 60 mm[Hg] [facility] Work Phone: 01-15-2017 14:04-0400 BP Systolic 120 mm[Hg] Chelsy Reis [facility] Work Phone: 01-15-2017 14:04-0400 Height 176.53 cm Chelsy Reis [facility] Work Phone: 01-15-2017 14:04-0400 Pulse (Heart Rate) 56 /min Chelsy Reis [facility] Work Phone: 01-15-2017 14:04-0400 Respiratory Rate 20 /min Chelsy Reis [facility] Work Phone: 01-15-2017 14:04-0400 Weight 95.98 kg Chelsy Reis [facility] Work Phone: 05-25-2016 08:04-0500 BMI (Body Mass Index) 30.27 kg/m2 Annalisa [facility] Work Phone: 05-25-2016 08:04-0500 BP Diastolic 70 mm[Hg] Annalisa Jones RN [facility] Work Phone: 05-25-2016 08:04-0500 BP Systolic 152 mm[Hg] Annalisa Jones RN [facility] Work Phone: 05-25-2016 08:04-0500 BSA (Body Surface Area) 2.11 m2 Annalisa Jones RN [facility] Work Phone: 05-25-2016 08:04-0500 Height 176.53 cm Annalisa [facility] Work Phone: 05-25-2016 08:04-0500 Pulse (Heart Rate) 70 /min Annalisa Jones RN [facility] Work Phone: 05-25-2016 08:04-0500 Respiratory Rate 18 /min Annalisa Jones RN [facility] Work Phone: 05-25-2016 08:04-0500 Weight 94.35 kg Annalisa Jones RN [facility] Work Phone: 09-28-2014 16:19-0400 Heart rate 65 /min Chelsy Smith [facility] Work Phone: Encounters Encounter Date Encounter Type Care Provider Facility Start: 01-14-2025 ambulatory Alex Atkinson Facility :[facility] Start: 12-07-2024 Non-patient / Non-visit Dr. Steph Beltran MD -[facility] Work Phone: Start: 12-06-2024 ambulatory Unique Granados Martin Facility :[facility] Start: 12-06-2024 End: 12-08-2024 Evaluation and management of inpatient Dr. Steph Beltran MD -[facility] Work Phone: Start: 12-05-2024 Non-patient / Non-visit Dr. Unique Salazar MD -[facility] Work Phone: Start: 12-04-2024 Non-patient / Non-visit Dr. Unique Salazar MD -[facility] Work Phone: Start: 12-03-[address] [facility] Facility :[facility] Start: 12-03-2024 Evaluation and management of inpatient Dr. Ramos Boles DO -[facility] Work Phone: Start: 12-03-2024 Non-patient / Non-visit Dr. Ramos Boles DO [facility] Work Phone: Start: 12-03-[address] Bernard Nugent MD Work Phone: -[facility] Start: 11-26-2024 End: 11-26-2024 Patient encounter procedure Ximena PURI -[facility] Work Phone: Start: 11-26-2024 End: 11-26-[address] Bernard Nugent MD Work Phone: -[facility] Start: 11-14-2024 Non-patient / Non-visit Dr. Ankit Last DO [facility] Work Phone: Start: 11-14-2024 ambulatory [facility] Alexys Raffi Facility:[facility] Start: 11-13-2024 Non-patient / Non-visit Dr. Ankit Last DO [facility] Work Phone: Start: 11-12-2024 Non-patient / Non-visit Dr. Ankit Last DO -[facility] Work Phone: Start: 11-11-2024 ambulatory Unique Salazar Facility :[facility] Start: 11-11-2024 End: 11-14-2024 Evaluation and management of inpatient Dr. Unique Salazar MD -[facility] Work Phone: Start: 11-05-2024 End: 11-05-[address] Bernard Nugent MD Work Phone: [facility] Start: 11-05-2024 End: 11-05-[address] Rodolfo Tobias MD -[facility] Work Phone: Start: 10-31-2024 End: 10-31-[address] Bernard Nugent MD Work Phone: [facility] Start: 10-31-2024 End: 10-31-[address] Rodolfo Tobias MD -[facility] Work Phone: Start: 10-30-2024 End: 10-30-[address] Bernard Nugent MD Work Phone: [facility] Work Phone: Start: 10-30-2024 End: 10-30-[address] Bernard Nugent MD -Radiology [facility] Work Phone: Start: 10-30-2024 End: 10-30-2024 ambulatory Bernard Nugent Facility:[facility] Start: 10-22-2024 End: 10-22-[address] Bernard Nugent MD Work Phone: [facility] Work Phone: Start: 10-22-2024 End: 10-22-[address] Bernard Nugent MD -Laboratory Work Phone: Start: 10-22-2024 End: 10-22-2024 ambulatory Bernard Nugent Facility:[facility] Start: 10-19-2024 ambulatory [facility] Facility: [facility] Start: 08-06-2024 End: 08-06-2024 ambulatory [facility] Raffi Facility:[facility] Start: 08-06-2024 End: 08-06-[address] Rodolfo Tobias MD -[facility] Work Phone: Start: 07-27-2024 End: 07-27-[address] Bernard Nugent MD Work Phone: [facility] Work Phone: Start: 07-27-2024 End: 07-27-[address] Bernard Nugent MD -Laboratory Work Phone: Start: 07-27-2024 End: 07-27-2024 ambulatory [facility] Facility:[facility] Start: 07-09-2024 End: 07-09-[address] Bernard Nugent MD Work Phone: [facility] Work Phone: Start: 07-09-2024 End: 07-09-[address] Bernard Nugent MD -Laboratory, Specimen Work Phone: Start: 07-09-2024 End: 07-09-2024 ambulatory [facility] Facility:[facility] Start: 07-03-2024 End: 07-03-2024 Emergency department patient visit Dr. Salvatore Hightower DO -Emergency Department Work Phone: Start: 05-07-2024 End: 05-07-2024 ambulatory [facility] Facility:[facility] Start: 05-07-2024 End: 05-07-[address] Rodolfo Tobias MD -[facility] Work Phone: Start: 04-27-2024 End: 04-27-[address] Bernard Nugent MD -Laboratory, Phy Office 3rd Flr Start: 04-27-2024 End: 04-27-2024 ambulatory [facility] Facility:[facility] Start: 04-22-2024 End: 04-22-[address] Bernard uNgent MD -Laboratory Work Phone: Start: 04-22-2024 End: 04-22-2024 ambulatory Bernard Chi Raffi Facility:[facility] Start: 03-31-2024 End: 03-31-2024 Patient encounter procedure Dr. Rodolfo Tobias MD -[facility] Work Phone: Start: 03-31-2024 End: 03-31-2024 ambulatory Bernard Chi Raffi Facility:[facility] Start: 03-09-2024 End: 03-09-2024 ambulatory Bernard Chi Raffi Facility:[facility] Start: 03-04-2024 ambulatory Bernard Chi Raffi Facility:[facility] Start: 02-28-2024 End: 02-28-2024 ambulatory Bernard Chi Raffi Facility:[facility] Start: 02-20-2024 End: 02-21-2024 ambulatory Bernard Chi Raffi Facility:[facility] Start: 02-20-2024 End: 02-20-2024 ambulatory Bernard Chi Raffi Facility:[facility] Start: 02-05-2024 End: 02-05-2024 ambulatory Bernard Chi Raffi Facility:[facility] Start: 01-24-2024 End: 01-24-2024 ambulatory Bernard Chi Raffi Facility:[facility] Start: 07-26-2023 Non-patient / Non-visit Dr. Bernard Nugent Work Phone: [facility] Start: 07-26-2023 End: 07-26-[address] Bernard Nugent Work Phone: [facility] Work Phone: Start: 07-26-2023 End: 07-26-[address] Bernard Nugent Work Phone: [facility]-Cardiovascular Services Work Phone: Start: 07-24-2023 End: 07-24-[address] Bernard Nugent Work Phone: [facility] Work Phone: Start: 07-24-2023 End: 07-24-[address] Bernard Nugent Work Phone: [facility], y Office 3rd Flr Start: 07-11-2023 End: 07-11-[address] Bernard Nugent Work Phone: [facility] Work Phone: Start: 07-07-2023 End: 07-07-2023 Emergency department patient visit Dr. [facility] Start: 07-01-2023 End: 07-01-[address] Bernard Nugent Work Phone: [facility] Work Phone: Start: 05-26-2023 End: 05-26-2023 Emergency department patient visit Dr. [facility] Nug[facility] Start: 05-17-2023 End: 05-17-[address] Bernard Nugent Work Phone: [facility] Work Phone: Start: 05-08-2023 End: 05-08-[address] Bernard Nugent Work Phone: [facility] Work Phone: Start: 03-25-2023 End: 03-25-[address] Bernard Nugent Work Phone: [facility] Work Phone: Start: 03-25-2023 End: 03-25-[address] Bernard Nugent Work Phone: [facility], y Office 3rd Flr Start: 03-24-2023 End: 03-24-2023 Emergency department patient visit Dr. [facility] Start: 02-07-2023 End: 02-07-[address] Bernard Nugent Work Phone: [facility] Work Phone: Start: 02-07-2023 End: 02-07-[address] Bernard Nugent Work Phone: [facility] Office 3rd Flr Start: 02-06-2023 End: 02-06-[address] Bernard Nugent Work Phone: [facility] Work Phone: Start: 02-01-2023 End: 02-01-[address] Bernard Nugent Work Phone: [facility] Work Phone: Start: 01-22-2023 End: 01-22-[address] Bernard Nugent Work Phone: [facility] Work Phone: Start: 01-22-2023 End: 01-22-[address] Bernard Nugent Work Phone: [facility] 3rd Flr Start: 11-14-2022 End: 11-14-[address] Bernard Nugent Work Phone: [facility] Work Phone: Start: 11-06-2022 End: 11-06-[address] Bernard Nugent Work Phone: [facility] Work Phone: Start: 11-06-2022 End: 11-06-[address] Bernard Nugent Work Phone: [facility] Start: 10-30-2022 End: 10-30-[address] Bernard Nugent Work Phone: [facility] Start: 10-22-2022 End: 10-22-[address] Bernard Nugent Work Phone: [facility]-Laboratory Start: 10-02-2022 End: 10-02-[address] Bernard Nugent Work Phone: [facility] Start: 09-25-2022 End: 09-25-[address] Bernard Nugent Work Phone: [facility] Start: 09-25-2022 Non-patient / Non-visit Dr. Bernard Nugent Work Phone: [facility] Start: 09-24-2022 End: 09-25-2022 Evaluation and management of inpatient Dr. Bernard Nugent Work Phone: [facility]-Progressive Care Unit Start: 09-24-2022 End: 09-25-[address] Bernard Nugent Work Phone: [facility] Work Phone: Start: 09-18-2022 End: 09-18-[address] Bernard Nugent Work Phone: [facility] Start: 09-04-2022 End: 09-04-[address] Bernard Nugent Work Phone: [facility] Work Phone: Start: 09-04-2022 End: 09-04-[address] Bernard Nugent Work Phone: [facility]-Laboratory, y Office 3rd Mar Start: 08-09-2022 End: 08-09-[address] Bernard Nugent Work Phone: [facility] Work Phone: Start: 08-09-2022 End: 08-09-[address] Bernard Nugent Work Phone: [facility]-Pulmonary Services/Neurology Start: 08-08-2022 End: 08-08-[address] Bernard Nugent Work Phone: [facility] Work Phone: Start: 08-08-2022 End: 08-08-[address] [facility] Start: 07-20-2022 End: 07-20-[address] Bernard Nugent Work Phone: [facility] Work Phone: Start: 07-20-2022 End: 07-20-[address] [facility] Start: 06-19-2022 End: 06-19-[address] Bernard Nugent Work Phone: [facility] Start: 03-27-2022 End: 03-27-[address] Bernard Nugent Work Phone: [facility] Work Phone: Start: 03-27-2022 End: 03-27-[address] Bernard Nugent Work Phone: [facility]-Pulmonary Services/Neurology Start: 03-13-2022 Non-patient / Non-visit Dr. Bernard Nugent Work Phone: [facility] Start: 03-13-2022 End: 03-13-[address] Bernard Nugent Work Phone: [facility] Work Phone: Start: 03-13-2022 End: 03-13-[address] Bernard Nugent Work Phone: [facility]-Cardiovascular Services Start: 02-28-2022 End: 02-28-[address] Bernard Nugent Work Phone: [facility]-Laboratory, Specimen Start: 02-28-2022 End: 02-28-[address] Bernard Nugent Work Phone: [facility] Start: 02-26-2022 End: 02-26-[address] [facility] Start: 02-04-2022 End: 02-05-2022 Emergency department patient visit Dr. Bernard Nugent Work Phone: [facility]-Emergency Department Start: 02-01-2022 End: 02-01-[address] Bernard Nugent Work Phone: [facility] Work Phone: Start: 02-01-2022 End: 02-01-[address] Bernard Nugent Work Phone: [facility]-Pulmonary Services/Neurology Start: 01-31-2022 End: 01-31-[address] Bernard Nugent Work Phone: [facility] Work Phone: Start: 01-31-2022 End: 01-31-[address] Bernard Nugent Work Phone: [facility]-Outpatient Breast Imaging Start: 01-24-2022 End: 01-24-[address] Bernard Nugent Work Phone: [facility] Start: 01-18-2022 End: 01-18-[address] Bernard Nugent Work Phone: [facility] Work Phone: Start: 01-18-2022 End: 01-18-[address] [facility] Start: 12-27-2021 End: 12-27-[address] Bernard Nugent Work Phone: [facility]Laboratory Start: 12-22-2021 Non-patient / Non-visit Dr. Bernard Nugent Work Phone: [facility] In[facility] Physicians Start: 12-22-2021 Non-patient / Non-visit Dr. Bernard Nugent Work Phone: [facility] Start: 12-21-2021 Non-patient / Non-visit Dr. Bernard Nugent Work Phone: [facility] Start: 12-21-2021 End: 12-22-2021 Evaluation and management of inpatient Dr. Bernard Nugent [facility] Start: 12-19-2021 End: 12-19-2021 Emergency department patient visit Dr. Bernard Nugent Work Phone: [facility]-Emergency Department Start: 12-07-2021 End: 12-07-[address] Bernard Nugent Work Phone: [facility] Start: 11-02-2021 End: 11-02-[address] Bernard Nugent Work Phone: [facility]-Laboratory, Phy Office 3rd Flr Start: 10-26-2021 Non-patient / Non-visit Dr. Bernard Nugent Work Phone: [facility] Start: 10-25-2021 Non-patient / Non-visit Dr. Bernard Nugent Work Phone: [facility] Start: 10-25-2021 End: 10-26-2021 Evaluation and management of inpatient Dr. Bernard Nugent [facility] Start: 10-25-2021 Non-patient / Non-visit Dr. Bernard Nugent Work Phone: [facility] Start: 10-18-2021 End: 10-18-[address] Bernard Nugent Work Phone: [facility]-Laboratory, [facility] Office 3rd Flr Start: 07-13-2021 End: 07-13-[address] Bernard Nugent Work Phone: [facility]-Laboratory, [facility] Office 3rd Flr Start: 05-16-2018 End: 05-16-2018 Patient encounter procedure [facility] Gu[facility] Procedures Date Procedure Procedure Detail Performing Clinician Start: 12-08-[address] Bernard Nugent MD Work Phone: Start: 12-03-2024 Urnls dip stick/tabl et reagent [...] angiography of ch est with contrast Dr. Bernadr Nugent Work Phone: Start: 07-07-2023 Plain chest [...] Nugent Work Phone: Start: 01-15-2017 End: 01-15-2017 DOBBY LOOM FIXER Rodolfo Tobias MD Start: 01-15-2017 End: 01-15-2017 [...] [AGGREGATE] Cordelia Magdaleno Start: 11-09-2014 End: 11-08-2015 KRYSTLE Bonilla PA-C Work Phone: Start: 11-09-2014 End: [...] Panel Cordelia Magdaleno Start: 05-26-2014 End: 05-26-2014 DOBBY LOOM FIXER Rodolfo Tobias MD Start: 05-26-2014 End: 11-03-2014 [...] Treatment Date Care Activity Detail Author Start: 12-08-2024 Patient discharge [facility] Start: 12-06-2024 Admission procedure [facility] Start: 12-05-2024 Removal of urinary catheter [facility] Start: 12-04-2024 Application of intermittent pneumatic compression device [facility] Start: 12-04-2024 Referral to service [facility] Start: 12-04-2024 Skin care [facility] Start: 12-03-2024 Following clinical pathway protocol [facility] Start: 12-03-2024 Ambulation without limitation [facility] Start: 12-03-2024 Assessment of risk of venous thromboembolism [facility] Start: 12-03-2024 Insertion of catheter into peripheral vein [facility] Start: 12-03-2024 Measuring intake and output [facility] Start: 12-03-2024 Providing care according to standard [facility] Start: 12-03-2024 Referral to occupational therapist [facility] Start: 12-03-2024 Referral to service [facility] Start: 12-03-2024 [facility] Start: 12-03-2024 Hospital admission, emergency, from emergency room, medical nature [facility] Start: 12-03-2024 Verification routine [facility] Start: 12-03-2024 Admission procedure [facility] Start: 12-03-2024 [facility] Start: 11-14-2024 Patient discharge [facility] Start: 11-13-2024 Referral to gastroenterology service [facility] Start: 11-12-2024 [facility] Start: 11-12-2024 Following clinical pathway protocol [facility] Start: 11-11-2024 Assessment of risk of venous thromboembolism [facility] Start: 11-11-2024 Care regimes management [facility] Start: 11-11-2024 Fall prevention [facility] Start: 11-11-2024 Insertion of catheter into peripheral vein [facility] Start: 11-11-2024 Introduction of urinary catheter [facility] Start: 11-11-2024 Measuring intake and output [facility] Start: 11-11-2024 Notification of physician [facility] Start: 11-11-2024 Oxygen therapy [facility] Start: 11-11-2024 Providing care according to standard [facility] Start: 11-11-2024 Provision of activity privileges [facility] Start: 11-11-2024 Referral to occupational therapist [facility] Start: 11-11-2024 Referral to service [facility] Start: 11-11-2024 End: 11-11-2024 [facility] Start: 11-11-2024 Serum inorganic phosphate measurement [facility] Start: 11-11-2024 Verification routine [facility] Start: 11-11-2024 End: 11-11-2024 Hospital admission, emergency, from emergency room, medical nature [facility] Start: 11-11-2024 Admission procedure [facility] Start: 11-11-2024 Patient referral to dietitian [facility] Start: 07-03-2024 [facility] Start: 07-03-2024 Smpl repair scalp/neck/ax/genit/trunk 2.6-7.5cm RPR S/N/AX/GEN/TRNK2.6-7.5CM [facility] Start: 07-07-2023 [facility] Start: 07-07-2023 [facility] Start: 05-26-2023 [facility] Start: 09-25-2022 Patient discharge [facility] Start: 09-24-2022 Following clinical pathway protocol [facility] Start: 09-24-2022 Bedrest [facility] Start: 09-24-2022 Elevation of head of bed [facility] Start: 09-24-2022 Admission procedure [facility] Start: 09-24-2022 Taking patient vital signs [facility] Start: 09-24-2022 Wound care [facility] Start: 09-24-2022 [facility] Start: 02-04-2022 [facility] Work Phone: Start: 12-22-2021 Patient discharge [facility] Work Phone: Start: 12-21-2021 Ambulation without limitation [facility] Work Phone: Start: 12-21-2021 Assessment of risk of venous thromboembolism [facility] Work Phone: Start: 12-21-2021 Incentive spirometry [facility] Work Phone: Start: 12-21-2021 Insertion of catheter into peripheral vein [facility] Work Phone: Start: 12-21-2021 Measuring intake and output [facility] Work Phone: Start: 12-21-2021 Oxygen therapy [facility] Work Phone: Start: 12-21-2021 Providing care according to standard [facility] Work Phone: Start: 12-21-2021 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 [facility] Work Phone: Start: 12-21-2021 Referral to occupational therapist [facility] Work Phone: Start: 12-21-2021 Referral to service [facility] Work Phone: Start: 12-21-2021 Following clinical pathway protocol [facility] Work Phone: Start: 12-21-2021 End: 12-21-2021 [facility] Work Phone: Start: 12-21-2021 Troponin I measurement [facility] Work Phone: Start: 12-21-2021 Verification routine [facility] Work Phone: Start: 12-21-2021 Admission procedure [facility] Work Phone: Start: 12-21-2021 [facility] Work Phone: Start: 12-19-2021 [facility] Work Phone: Start: 10-26-2021 Patient discharge [facility] Work Phone: Start: 10-25-2021 Following clinical pathway protocol [facility] Work Phone: Start: 10-25-2021 Application of intermittent pneumatic compression device [facility] Work Phone: Start: 10-25-2021 Assessment of risk of venous thromboembolism [facility] Work Phone: Start: 10-25-2021 Care regimes management [facility] Work Phone: Start: 10-25-2021 Insertion of catheter into peripheral vein [facility] Work Phone: Start: 10-25-2021 Notification of physician [facility] Work Phone: Start: 10-25-2021 Oxygen therapy [facility] Work Phone: Start: 10-25-2021 Patient education [facility] Work Phone: Start: 10-25-2021 Providing care according to standard [facility] Work Phone: Start: 10-25-2021 Provision of activity privileges [facility] Work Phone: Start: 10-25-2021 Referral to occupational therapist [facility] Work Phone: Start: 10-25-2021 Referral to service [facility] Work Phone: Start: 10-25-2021 [facility] Work Phone: Start: 10-25-2021 Care planning and problem solving actions [facility] Work Phone: Start: 10-25-2021 Admission procedure [facility] Work Phone: Start: 01-16-2018 End: 01-16-2018 Appointment [facility] Work Phone: Start: 01-15-2017 End: 01-15-2017 Appointment Appointment [facility] Work Phone: Start: 01-15-2017 End: 01-15-2017 DOBBY LOOM FIXER DOBBY LOOM FIXER [facility] Work Phone: Start: 01-15-2017 End: 01-15-2017 Follow Up Appt 1 year Follow Up Appt 1 year [facility] Work Phone: Start: 05-25-2016 End: 05-25-2016 Follow Up Appt 6 months Follow Up Appt 6 months [facility] Work Phone: Start: 05-25-2016 End: 05-25-2016 MMM MMM [facility] Work Phone: Start: 11-23-2015 End: 11-23-2015 DOBBY LOOM FIXER DOBBY LOOM FIXER [facility] Work Phone: Start: 11-23-2015 End: 11-23-2015 Follow Up Appt 6 months Follow Up Appt 6 months [facility] Work Phone: Start: 05-31-2015 [...] Group Work Phone: Start: 11-09-2014 End: 11-08-2015 DOBBY LOOM FIXER DOBBY LOOM FIXER [facility] Work Phone: Start: 11-09-2014 End: 11-08-2015 Follow Up Appt 6 months Follow Up Appt 6 months [facility] Work Phone: Start: 09-28-2014 End: 11-03-2014 Electrocardiogram, complete EKG (In office) [facility] Work Phone: Start: 09-28-2014 End: 09-28-2014 Follow Up Appt 6 weeks Follow Up Appt 6 weeks [facility] Work Phone: Start: 09-28-2014 End: 09-28-2014 MMM MMM [facility] Work Phone: Start: 05-26-2014 End: 11-03-2014 *BMP *BMP [facility] Work Phone: Start: 05-26-2014 End: 05-31-2014 *Hepatic Function Panel *Hepatic Function Panel [facility] Work Phone: Start: 05-26-2014 End: 05-26-2014 DOBBY LOOM FIXER DOBBY LOOM FIXER [facility] Work Phone: Start: 05-26-2014 End: 05-26-2014 Echocardiography Echocardiogram (complete) [facility] Work Phone: Start: 05-26-2014 End: 05-26-2014 Electrocardiogram, complete EKG (In office) [facility] Work Phone: Start: 05-26-2014 End: 05-26-2014 Follow Up Appt 1 month Follow Up Appt 1 month [facility] Work Phone: Start: 05-26-2014 End: 05-31-2014 Lipid panel [AGGREGATE] *Lipid Profile CC PCP [facility] Work Phone: Start: 05-26-2014 End: 05-26-2014 Nuclear stress test -Lexiscan Nuclear stress test -Lexiscan [facility] Work Phone: Start: 05-26-2014 End: 11-03-2014 Thyroid stimulating hormone (TSH) *TSH [facility] Work Phone: Start: 05-26-2014 End: 11-03-2014 Thyroxine (T4) *T4 (Total) [facility] Work Phone: Start: 12-30-2013 End: 11-23-2015 X-ray exam of finger(s) X-Ray, Fingers [facility] Work Phone: Anion gap in Serum o r Plasma [facility] Anion gap in Serum o r Plasma [facility] Anion gap in Serum o r Plasma [facility] Anion gap in Serum o r Plasma [facility] Anion gap in Serum o r Plasma [facility] BUN/Creatinine ratio [facility] BUN/Creatinine ratio [facility] BUN/Creatinine ratio [facility] BUN/Creatinine ratio [facility] BUN/Creatinine ratio [facility] Calcium [Mass/volume ] in Serum or Plasma [facility] Calcium [Mass/volume ] in Serum or Plasma [facility] Calcium [Mass/volume ] in Serum or Plasma [facility] Calcium [Mass/volume ] in Serum or Plasma [facility] Calcium [Mass/volume ] in Serum or Plasma [facility] Carbon dioxide, tota l [Moles/volume] in Central venous blood [facility] Carbon dioxide, tota l [Moles/volume] in Central venous blood [facility] Carbon dioxide, tota l [Moles/volume] in Central venous blood [facility] Carbon dioxide, tota l [Moles/volume] in Central venous blood [facility] Carbon dioxide, tota l [Moles/volume] in Central venous blood [facility] Creatinine [Mass/vol ume] in Serum or Plasma [facility] Creatinine [Mass/vol ume] in Serum or Plasma [facility] Creatinine [Mass/vol ume] in Serum or Plasma [facility] Creatinine [Mass/vol ume] in Serum or Plasma [facility] Creatinine [Mass/vol ume] in Serum or Plasma [facility] Erythrocyte mean corpuscular volume determination [facility] Erythrocyte mean corpuscular volume determination [facility] Erythrocyte mean corpuscular volume determination [facility] Erythrocyte mean corpuscular volume determination [facility] Erythrocyte mean corpuscular volume determination [facility] Erythrocyte mean corpuscular volume determination [facility] Erythrocyte mean corpuscular volume determination [facility] Glucose [Mass/volume ] in Serum or Plasma [facility] Glucose [Mass/volume ] in Serum or Plasma [facility] Glucose [Mass/volume ] in Serum or Plasma [facility] Glucose [Mass/volume ] in Serum or Plasma [facility] Glucose [Mass/volume ] in Serum or Plasma [facility] Hematocrit [Volume Fraction] of Blood [facility] Hematocrit [Volume Fraction] of Blood [facility] Hematocrit [Volume Fraction] of Blood [facility] Hematocrit [Volume Fraction] of Blood [facility] Hematocrit [Volume Fraction] of Blood [facility] Hematocrit [Volume Fraction] of Blood [facility] Hematocrit [Volume Fraction] of Blood [facility] Hemoglobin [Mass/vol ume] in Blood [facility] Hemoglobin [Mass/vol ume] in Blood [facility] Hemoglobin [Mass/vol ume] in Blood [facility] Hemoglobin [Mass/vol ume] in Blood [facility] Hemoglobin [Mass/vol ume] in Blood [facility] Hemoglobin [Mass/vol ume] in Blood [facility] Hemoglobin [Mass/vol ume] in Blood [facility] Influenza virus A an d B and SARS-CoV-2 (COVID-19) Ag panel - Upper respiratory specim [facility] Leukocytes [#/volume ] in Blood [facility] Leukocytes [#/volume ] in Blood [facility] Leukocytes [#/volume ] in Blood [facility] Leukocytes [#/volume ] in Blood [facility] Leukocytes [#/volume ] in Blood [facility] Leukocytes [#/volume ] in Blood [facility] Leukocytes [#/volume ] in Blood [facility] Magnesium [Mass/volu me] in Serum or Plasma [facility] Work Phone: Magnesium measurement [facility] Mean corpuscular hem oglobin concentration determination [facility] Mean corpuscular hem oglobin concentration determination [facility] Mean corpuscular hem oglobin concentration determination [facility] Mean corpuscular hem oglobin concentration determination [facility] Mean corpuscular hem oglobin concentration determination [facility] Mean corpuscular hem oglobin concentration determination [facility] Mean corpuscular hem oglobin concentration determination [facility] Mean corpuscular hem oglobin determination [facility] Mean corpuscular hem oglobin determination [facility] Mean corpuscular hem oglobin determination [facility] Mean corpuscular hem oglobin determination [facility] Mean corpuscular hem oglobin determination [facility] Mean corpuscular hem oglobin determination [facility] Mean corpuscular hem oglobin determination [facility] Measurement of renal function [facility] Measurement of renal function [facility] Measurement of renal function [facility] Measurement of renal function [facility] Measurement of renal function [facility] Neutrophil count [facility] Neutrophil count [facility] Neutrophil count [facility] Neutrophil count [facility] Neutrophil count [facility] Neutrophil count [facility] Neutrophil count [facility] Neutrophil percent differential count [facility] Neutrophil percent differential count [facility] Neutrophil percent differential count [facility] Neutrophil percent differential count [facility] Neutrophil percent differential count [facility] Neutrophil percent differential count [facility] Neutrophil percent differential count [facility] Patient Education [facility] [employer] Work Phone: Patient referral [facility] Work Phone: Platelets [#/volume] in Blood [facility] Platelets [#/volume] in Blood [facility] Platelets [#/volume] in Blood [facility] Platelets [#/volume] in Blood [facility] Platelets [#/volume] in Blood [facility] Platelets [#/volume] in Blood [facility] Platelets [#/volume] in Blood [facility] Potassium measurement [facility] Potassium measurement [facility] Potassium measurement [facility] Potassium measurement [facility] Potassium measurement [facility] Red blood cell count [facility] Red blood cell count [facility] Red blood cell count [facility] Red blood cell count [facility] Red blood cell count [facility] Red blood cell count [facility] Red blood cell count [facility] Red cell distributio n width determination [facility] Red cell distributio n width determination [facility] Red cell distributio n width determination [facility] Red cell distributio n width determination [facility] Red cell distributio n width determination [facility] Red cell distributio n width determination [facility] Red cell distributio n width determination [facility] SARS-CoV-2 (COVID-19 ) Ag [Presence] in Respiratory specimen by Rapid immunoassay [facility] Work Phone: Serum chloride measurement [facility] Serum chloride measurement [facility] Serum chloride measurement [facility] Serum chloride measurement [facility] Serum chloride measurement [facility] Sodium measurement [facility] Sodium measurement [facility] Sodium measurement [facility] Sodium measurement [facility] Sodium measurement [facility] Troponin I measurement [facility] Work Phone: Urea nitrogen [Mass/ volume] in Serum or Plasma [facility] Urea nitrogen [Mass/ volume] in Serum or Plasma [facility] Urea nitrogen [Mass/ volume] in Serum or Plasma [facility] Urea nitrogen [Mass/ volume] in Serum or Plasma [facility] Urea nitrogen [Mass/ volume] in Serum or Plasma [facility] Immunizations Immunization Date Immunization Notes Care Provider Fa [facility] 07-03-2024 tetanus toxoid, redu sen diphtheria toxoid, and acellular pertussis vaccine, adsorbed Dr. Bernard Nugent MD Work Phone: [facility] 05-16-2023 RSV Adult BiValent (Abrysvo) Dr. Bernard Nuegnt MD Work Phone: [facility] 07-13-2021 Covid (Moderna) Dr. Bernard Nugent MD Work Phone: [facility] 07-15-2020 Joseid (Moderna) Dr. Bernard Nugent Work Phone: [facility] 06-17-2020 Covid (Moderna) Dr. Bernard Nugent Work Phone: [facility] 05-05-[address] Bernard Nugent MD Work Phone: [facility] 02-26-2019 zoster vaccine, live Dr. Bernard Nugent MD Work Phone: [facility] 02-16-[address] Bernard Nugent Work Phone: [facility] Payers Date Payer Category Payer Self-pay [id number] 2023 Private Health Insurance [id number] 2016 Medicare [id number] Medicare [id number] Unknown [id number] 2.16.8 40.1.663771.3.579.2.462 Unknown [id number] 2.16.8 40.1.462470.3.579.2.462 Unknown [id number] 2.16.8 40.1.190319.3.579.2.462 Unknown [id number] 2.16.8 40.1.452594.3.579.2.462 Unknown [id number] 2.16.8 40.1.815535.3.579.2.462 Unknown [id number] 2.16.8 40.1.219663.3.579.2.462 Unknown [id number] 2.16.8 40.1.336515.3.579.2.462 Unknown [id number] 2.16.8 40.1.250299.3.579.2.462 Unknown [id number] 2.16.8 40.1.978524.3.579.2.462 Unknown [id number] 2.16.8 40.1.510454.3.579.2.462 Unknown [id number] 2.16.8 40.1.737325.3.579.2.462 Unknown [id number] 2.16.8 40.1.273475.3.579.2.462 Unknown [id number] 2.16.8 40.1.064044.3.579.2.462 Unknown [id number] 2.16.8 40.1.406397.3.579.2.462 Unknown [id number] 2.16.8 40.1.021514.3.579.2.462 Unknown [id number] 2.16.8 40.1.171865.3.579.2.462 Unknown [id number] 2.16.8 40.1.520923.3.579.2.462 Unknown [id number] 2.16.8 40.1.893697.3.579.2.462 Unknown [id number] 2.16.8 40.1.858186.3.579.2.462 Unknown [id number] 2.16.8 40.1.893008.3.579.2.462 Unknown [id number] 2.16.8 40.1.631737.3.579.2.462 Unknown [id number] 2.16.8 40.1.502415.3.579.2.462 Unknown [id number] 2.16.8 40.1.017444.3.579.2.462 Unknown [id number] 2.16.8 40.1.230532.3.579.2.462 Unknown [id number] 2.16.8 40.1.111105.3.579.2.462 Unknown [id number] 2.16.8 40.1.979593.3.579.2.462 Unknown [id number] 2.16.8 40.1.206162.3.579.2.462 Unknown [id number] 2.16.8 40.1.535950.3.579.2.462 Unknown [id number] 2.16.8 40.1.104045.3.579.2.462 Unknown [id number] 2.16.8 40.1.898100.3.579.2.462 Unknown [id number] 2.16.8 40.1.579407.3.579.2.462 Unknown [id number] 2.16.8 40.1.444949.3.579.2.462 Unknown [id number] 2.16.8 40.1.994120.3.579.2.462 Unknown [id number] 2.16.8 40.1.967672.3.579.2.462 Unknown [id number] 2.16.8 40.1.227085.3.579.2.462 Social History Date Type Detail Facility Start: 10-25-2021 End: 07-11-2023 Tobacco smoking status NHIS Unknown if ever smoked [facility] Start: 1935 Sex Assigned At Male [facility] Start: 07-03-2024 End: 11-11-2024 Tobacco smoking status NHIS Never smoked tobacco (finding) [facility] Start: 07-23-2024 End: 08-06-2024 Sex Male (finding) [facility] Start: 11-25-2024 End: 12-03-2024 Tobacco smoking status NHIS Ex-smoker (finding) [facility] Medical Equipment Procedure Code Equipment Code Equipment Origin al Text Equipment Identifier Dates ([id number]) Endocardial paci ng lead ()[id number] [id number] FDA Start: 09-24-2022 ([id number]) Single-chamber implantable pacemaker, rate-responsive ()[id number] [id number] FDA Start: 09-24-2022 Goals Date Patient Goal Desired Activity /State Functional Status Date Assessment Result Facility 12-08-2024 Functional status Bedrest [facility] Work Phone: 11-14-2024 Functional status Bathroom Privilege [facility] Work Phone: 11-13-2024 Functional status Ambulates [facility] Work Phone: 09-25-2022 Functional status Ambulates [facility] Work Phone: 12-22-2021 Functional status Ambulates [facility] Work Phone: 10-26-2021 Functional status Activity Abili ty With Assist of 1 [facility] Work Phone: Mental Status Date Assessment Result Facility 12-08-2024 Cognitive function Voice/Name [facility] Work Phone: 11-14-2024 Cognitive function Voice/Name [facility] Work Phone: 11-13-2024 Cognitive function Voice/Name [facility] Work Phone: 05-26-2023 Cognitive function Level Of Cons ciousness Awake;Alert;Appropriate [facility] Work Phone: 03-24-2023 Cognitive function Level Of Cons ciousness Awake;Alert;Appropriate [facility] Work Phone: 09-25-2022 Cognitive function Voice/Name [facility] Work Phone: 12-22-2021 Cognitive function Voice/Name [facility] Work Phone: 10-26-2021 Cognitive function Voice/Name [facility] Work Phone: Clinical Notes 09-25-2022 to 12-08-2024 Note Date & Type Note Facility 12-08-2024 Consult note [facility] 12-08-2024 Consult note Note Date/Time December 08, 2024 5:43pm [facility] Medical Records Department [address] [place] [address] Counseling Note - Pharmacy 12/08/24 1459 MR#: [id number] Acct: [id number] Name: ASHIA PEREZ Rep #:[id number] : 1935 89 From: Ariana Rodriguez PCP: Dr. Bernard Nugent MD Status:ADM I N Y Location: [id number] Pharm[facility] Counseling Pharmacy Service has performed discharge medication reconciliation and counseling for this patient. 1. TAMSULOSIN 0.4MG PO DAILY @ 1730 The patient's discharge medication list was reviewed for discrepancies and discrepancies were resolved. The patient was counseled on the following discharge medications and changes in medications for homegoing were reviewed. The Reason for Use, instructions for use, and potential side effects were reviewed for all new medications. The patient's questions regarding all of their medications were answered. The patient was able to verbally demonstrate an understanding of their dischargemedications. Medications at Discharge Home Medications levothyroxine 25 mcg tablet 25 mcg PO DAILY 02/20/24 apixaban 2.5 mg tablet 2.5 mg PO BID blood thinner #60 tabs 03/27/24 amlodipine 5 mg tablet 5 mg PO DAILY #90 tabs 03/31/24 losartan 100 mg tablet 100 mg PO QDAY 03/31/24 metoprolol tartrate 25 mg tablet 25 mg PO BID #180 tabs 08/18/24 dicyclomine 20 mg tablet 20 mg PO TID #30 tabs 11/14/24 loperamide 2 mg capsule 2 mg PO TID PRN Diarrhea 11/25/24 pravastatin 40 mg tablet 40 mg PO QHS cholesterol 11/26/24 tamsulosin 0.4 mg capsule 0.4 mg PO DAILY@1730 #30 caps 12/08/24 12/08/24 1459 <Electronically signed by Ariana Rodriguez> Date _ Ariana Rodriguez Cosigner Signature (if applicable): Date CC: ~ Signed [facility] Work Phone: 1(270) 154-297107-22-2025 Discharge summary Author Steph [facility] Note Date/Time December 08, 2024 2:07 pm [facility] Medical Records Department [address] [place] [id number] Instructions for Home/Discharge Instructions 12/08/24 1406 MR#: [id number] Acct: [id number] Name: ASHIA PEREZ Rep #:[id number] : 1935 89 From: Steph Beltran MD PCP: Dr. Bernard Nugent MD Status:ADM I N Discharge Instructions DC O2, CPAP, BIPAP needs Home O2 Discharge instructions: No Dressing / Incision Discharge Activity: Return to Normal Activity Weight Bearing Status: Weight bearing as tolerated Dressing / Incision Call your doctor if you observe: Fever of 101 or Higher, Shortness of breath, Dizziness, Swelling in the ankles and Chest pain Follow Up Care Test Results: Test results from this visit will be discussed in further detail at your follow- up appointment, if applicable. Discharge Plan Admission Admit Date/Time: 12/06/24 08:32 Primary Reason for Your Visit: urinary retention Attending Provider: Steph Beltran Primary Care Provider: Bernard Nugent Chi Consulting Providers: Ramos Boles; Unique Salazar Instructions Patient Instructions: ED Puente Catheter, Care, ED Urinary Retention, Male Additional Instructions / Restrictions: Your bladder was not draining urine properly so a Puente catheter was placed. There is no signs of urinary tract infection. Call the urology office for an appointment. Keep your colonoscopy as scheduled to evaluate the ongoing diarrhea. Drink plenty of fluids. Discharge Orders/Prescriptions Prescriptions: New tamsulosin 0.4 mg Capsule 0.4 mg PO DAILY@1730 Qty: 30 2RF Continued losartan 100 mg tablet 100 mg PO QDAY amlodipine 5 mg tablet 5 mg PO DAILY Qty: 90 3RF loperamide 2 mg capsule 2 mg PO TID PRN (Reason: Diarrhea) Rx Instructions: You may take loperamide 2 to 4 mg 3 times a day as needed for loose stools and diarrhea pravastatin 40 mg tablet 40 mg PO QHS Patient Comments: CHOLESTEROL levothyroxine 25 mcg tablet 25 mcg PO DAILY dicyclomine 20 mg tablet 20 mg PO TID Qty: 30 0RF apixaban 2.5 mg tablet 2.5 mg PO BID Qty: 60 1RF metoprolol tartrate 25 mg tablet 25 mg PO BID Qty: 180 3RF Referrals / Follow Up: Shahram Ortega MD [Med Staff - Active Staff] - 12/14/24 10:45 am Bernard Nugent Chi, MD [Primary Care Provider] - 12/10/24 11:20 am Disposition Disposition (needs filled in before D/C Order can be placed): Home, Self Care 12/08/24 1407<Electronically signed by Steph Beltran MD>Steph Beltran MD CC: Dr. Ramos Boles DO; Dr. Unique Salazar MD; Dr. Bernard Nugent MD ~ Signed [facility] Work Phone: 1(190) 127-120007-22-2025 Discharge summary [facility] Medical Records Department [address] [place] [address] Instructions for Home/Discharge Instructions 12/08/24 1406 MR#: [id number] Acct: [id number] Name: ASHIA PEREZ Rep #:[id number] : 1935 89 From: Steph Beltran MD PCP: Dr. Bernard Nugent MD Status:ADM I N Discharge Instructions DC O2, CPAP, BIPAP needs Home O2 Discharge instructions: No Dressing / Incision Discharge Activity: Return to Normal Activity Weight Bearing Status: Weight bearing as tolerated Dressing / Incision Call your doctor if you observe: Fever of 101 or Higher, Shortness of breath, Dizziness, Swelling in the ankles and Chest pain Follow Up Care Test Results: Test results from this visit will be discussed in further detail at your follow- up appointment, if applicable. Discharge Plan Admission Admit Date/Time: 12/06/24 08:32 Primary Reason for Your Visit: urinary retention Attending Provider: Steph Beltran Primary Care Provider: Bernard Nugent Chi Consult[employer] Providers: Ramos Boles; Unique Salazar Instructions Patient Instructions: ED Puente Catheter, Care, ED Urinary Retention, Male Additional Instructions / Restrictions: Your bladder was not draining urine properly so a Puente catheter was placed. There is no signs of urinary tract infection. Call the urology office for an appointment. Keep your colonoscopy as scheduled to evaluate the ongoing diarrhea. Drink plenty of fluids. Discharge Orders/Prescriptions Prescriptions: New tamsulosin 0.4 mg Capsule 0.4 mg PO DAILY@1730 Qty: 30 2RF Continued losartan 100 mg tablet 100 mg PO QDAY amlodipine 5 mg tablet 5 mg PO DAILY Qty: 90 3RF loperamide 2 mg capsule 2 mg PO TID PRN (Reason: Diarrhea) Rx Instructions: You may take loperamide 2 to 4 mg 3 times a day as needed for loose stools and diarrhea pravastatin 40 mg tablet 40 mg PO QHS Patient Comments: CHOLESTEROL levothyroxine 25 mcg tablet 25 mcg PO DAILY dicyclomine 20 mg tablet 20 mg PO TID Qty: 30 0RF apixaban 2.5 mg tablet 2.5 mg PO BID Qty: 60 1RF metoprolol tartrate 25 mg tablet 25 mg PO BID Qty: 180 3RF Referrals / Follow Up: Shahram Ortega MD [Med Staff - Active Staff] - 12/14/24 10:45 am Bernard Nugent Chi, MD [Primary Care Provider] - 12/10/24 11:20 am Disposition Disposition (needs filled in before D/C Order can be placed): Home, Self Care 12/08/24 1407Steph Beltran MD CC: Dr. Ramos Boles DO; Dr. Unique Salazar MD; Dr. Bernard Nugent MD ~ [facility]07-21-2025 Progress note Author [facility] Note Date/Time December 07, 2024 5:21 pm [facility] Medical Records Department [address] [place] [address] Progress Note 12/07/241706 MR#: [id number] Acct: [id number] Name: ASHIA PEREZ Rep #:[id number] : 1935 89 From: Steph Beltran MD PCP: Dr. Bernard Nugent MD Status:ADM I N Location: [facility] AG230-0 Subjective Subjective Patient seen and examined with his nurse by his bedside. He had no active complaints and had an uneventful night. He still has a puente catheter in situ. Review of systems is otherwise negative. Objective Data Objective Data Vital Signs: Vital Signs Temp Pulse Resp BP Pulse Ox O2 Del Method 97.6 F L 57 L 16 141/62 H 100 Room Air 12/07/24 14:56 12/07/24 14:56 12/07/24 14:56 12/07/24 14:56 12/07/24 14:56 12/07/24 14:56 Oxygen Delivery Method Room Air Weight: 194 lb 4 oz Body Mass Index (BMI) 27.8 Intake & Output: Intake and Output for Last 24 Hours 12/05/24 12/06/24 12/07/24 23:59 23:59 23:59 Intake Total 2054 / 5 1870 / 1870 150 / 150 Output Total 1350 / 1350 2700 / 2700 625 / 625 Balance 705 / 705 -830 / -830 -475 / -475 Lab / Micro Data 12/07/24 06:53 12/07/24 06:53 Labs: Laboratory Results - last 24 hr 12/07/24 06:53: WBC 9.9, RBC 3.66 L, Hgb 11.5 L, Hct 33.0 L, MCV 90.2, MCH 31.4,MCHC 34.8, RDW Std Deviation 44.8 H, RDW Coeff of Lisa 13.5, Plt Count 175, MPV 11.5, Immature Gran % (Auto) 0.600, Neut % (Auto) 77.6 H, Lymph % (Auto) 9.4 L, Caswell % (Auto) 10.2 H, Eos % (Auto) 1.9, Baso % (Auto) 0.3, Absolute Neuts (auto)7.7, Absolute Lymphs (auto) 0.93, Nucleated RBC % 0, Sodium 135, Potassium 3.7, Chloride 103, Carbon Dioxide 23.5, Anion Gap 8, BUN 10, Creatinine 1.14, Estim Creat Clear Calc 49.11 L, Est GFR (MDRD) Non-Af 61, BUN/Creatinine Ratio 8.9 L, Glucose 108 H, Calcium 8.3, Total Bilirubin 1.57 H, AST 18, ALT 14, Alkaline Phosphatase 138 H, Total Protein 6.0, Albumin 3.2 L, Globulin 2.8, Albumin/Globulin Ratio 1.1 Physical Exam Const alert, oriented x3 and no apparent distress General Appearance: cooperative and well developed HEENT normocephalic, head/scalp atraumatic, moist oral mucous membranes and oropharynxnormal Eyes EOMs intact bilaterally Eyes Narrative: patient legally blind Neck no lymphadenopathy and supple Lymph Lymphatic: no lymphadenopathy noted and no lymphedema noted Resp normal respiratory effort, normal air movement and clear to auscultation bilaterally Cardio regular rate, regular rhythm, S1 normal heart sound, S2 normal heart sound and no murmurs GI normal to inspection, nondistended, normoactive bowel sounds, soft to palpation,non-tender and non-distended Extremity normal capillary refill General Extremity: no tenderness to palpation of joints or extremities Skin General Skin Exam: no breakdown Neuro CN's II-XII intact bilaterally and no focal motor deficits Motor Exam: strength 5/5 throughout and general weakness Psych thought process normal and cooperative Appearance: appropriate Assessment & Plan Assessment/Plan (1) Acute urinary retention: (2) Chronic diarrhea: PLAN: Plan #Acute urinary retention in the setting of acute colitis * puente catheter in situ. Failed voiding trial. * on flomax. * awaiting placement. Will need to follow up with urology on outpatient basis * #Recent acute colitis with guaic positive diarrhea * resolved. Has a history of previous right hemicolectomy for villous adenoma complicated by history of previous colon cancer * C diff negative. * was on eliquis and this was resumed. Will monitor * #Hyponatremia: resolved. #Acute on chronic normocytic anemia: stable. #Paroxysmal afib: on eliquis. on metoprolol. #Hypertension: on metoprolol and losartan and amlodipine. IV hydralazine prn. #Hyperlipidemia: on statin #CKD IIIa: Cr at baseline. Will monitor #Hypothyroidism: on synthroid. DVT prophylaxis: on eliquis. Disposition: for likely DC within the next 24-48 hours. Charges/Coding Visit Charges Inpatient E&M: 93571 Subs Hosp L2 12/07/24 1721 <Electronically signed by Steph Beltran MD> Steph Beltran MD Cosigner Signature (if applicable): CC: ~ Signed [facility] Work Phone: 1(846) 453-903807-21-2025 Progress note [facility] Medical Records Department [address] [place] [address] Progress Note 12/07/24 1707 MR#: [id number] Acct: [id number] Name: ASHIA PEREZ Rep #:[id number] : 1935 89 From: Steph Beltran MD PCP: Dr. Bernard Nugent MD Status:ADM I N [facility] Subject[facility] Subjective Patient seen and examined with his nurse by his bedside. He had no active complaints and had an uneventful night. He still has a puente catheter in situ. Review of systems is otherwise negative. Objective Data Objective Data Vital Signs: Vital Signs Temp Pulse Resp BP Pulse Ox O2 Del Method 97.6 F L 57 L 16 141/62 H 100 Room Air 12/07/24 14:56 12/07/24 14:56 12/07/24 14:56 12/07/24 14:56 12/07/24 14:56 12/07/24 14:56 Oxygen Delivery Method Room Air Weight: 194 lb 4 oz Body Mass Index (BMI) 27.8 Intake & Output: Intake and Output for Last 24 Hours 12/05/24 12/06/24 12/07/24 23:59 23:59 23:59 Intake Total 2054 / 2054 1870 / 1870 150 / 150 Output Total 1350 / 1350 2700 / 2700 625 / 625 Balance 705 / 705 -830 / -830 -475 / -475 Lab / Micro Data 12/07/24 06:53 12/07/24 06:53 Labs: Laboratory Results - last 24 hr 12/07/24 06:53: WBC 9.9, RBC 3.66 L, Hgb 11.5 L, Hct 33.0 L, MCV 90.2, MCH 31.4,MCHC 34.8, RDW Std Deviation 44.8 H, RDW Coeff of Lisa 13.5, Plt Count 175, MPV 11.5, Immature Gran % (Auto) 0.600, Neut% (Auto) 77.6 H, Lymph % (Auto) 9.4 L, Caswell % (Auto) 10.2 H, Eos % (Auto) 1.9, Baso % (Auto) 0.3, Absolute Neuts (auto)7.7, Absolute Lymphs (auto) 0.93, Nucleated RBC % 0, Sodium 135, Potassium 3.7, Chloride 103, Carbon Dioxide 23.5, Anion Gap 8, BUN 10, Creatinine 1.14, Estim Creat Clear Calc 49.11 L, Est GFR (MDRD) Non-Af 61, BUN/Creatinine Ratio 8.9 L, Glucose 108 H, Calcium 8.3, Total Bilirubin 1.57 H, AST 18, ALT 14, Alkaline Phosphatase 138 H, Total Protein 6.0, Albumin 3.2 L, Globulin 2.8, Albumin/Globulin Ratio 1.1 Physical Exam Const alert, oriented x3 and no apparent distress General Appearance: cooperative and well developed HEENT normocephalic, head/scalp atraumatic, moist oral mucous membranes and oropharynxnormal Eyes EOMs intact bilaterally Eyes Narrative: patient legally blind Neck no lymphadenopathy and supple Lymph Lymphatic: no lymphadenopathy noted and no lymphedema noted Resp normal respiratory effort, normal air movement and clear to auscultation bilaterally Cardio regular rate, regular rhythm, S1 normal heart sound, S2 normal heart sound and no murmurs GI normal to inspection, nondistended, normoactive bowel sounds, soft to palpation,non-tender and non-distended Extremity normal capillary refill General Extremity: no tenderness to palpation of joints or extremities Skin General Skin Exam: no breakdown Neuro CN's II-XII intact bilaterally and no focal motor deficits Motor Exam: strength 5/5 throughout and general weakness Psych thought process normal and cooperative Appearance: appropriate Assessment & Plan Assessment/Plan (1) Acute urinary retention: (2) Chronic diarrhea: PLAN: Plan #Acute urinary retention in the setting of acute colitis * puente catheter in situ. Failed voiding trial. * on flomax. * awaiting placement. Will need to follow up with urology on outpatient basis * #Recent acute colitis with guaic positive diarrhea * resolved. Has a history of previous right hemicolectomy for villous adenoma complicated by history of previous colon cancer * C diff negative. * was on eliquis and this was resumed. Will monitor * #Hyponatremia: resolved. #Acute on chronic normocytic anemia: stable. #Paroxysmal afib: on eliquis. on metoprolol. #Hypertension: on metoprolol and losartan and amlodipine. IV hydralazine prn. #Hyperlipidemia: on statin #CKD IIIa: Cr at baseline. Will monitor #Hypothyroidism: on synthroid. DVT prophylaxis: on eliquis. Disposition: for likely DC within the next 24-48 hours. Charges/Coding Visit Charges Inpatient E&M: 52140 Subs Hosp L2 12/07/24 1721 Steph Beltran MD Cosigner Signature (if applicable): CC: ~ Signed [facility]07-20-2025 Progress note Author Unique Salazar [facility] Note Date/Time December 06, 2024 10:3 9am [facility] Medical Records Department [address] [place] [address] Progress Note - Hospitalist 12/06/24 0647 MR#: [id number] Acct: [id number] Name: ASHIA PEREZ Rep #:[id number] : 1935 89 From: Unique Salazar MD PCP: Dr. Bernard Nugent MD Status:ADM I N Location: [place] [address] Reason for Visit Chief Complaint: Persistent diarrhea and difficulty with urination Subjective Subjective Patient with no acute events overnight per self and per nursing report. Unfortunately as noted previously patient failed removal of Puente and voiding trial yesterday with Puente catheter replaced awaiting jail facility precertification/placement given unable to safely care for self with macular degeneration in the setting of also having a catheter. Patient does report thathis appetite continues to improve and he is less fatigued. He denies any reoccurrence of loose stools. Patient denies fevers, chills, nausea, emesis, abdominal pain, chest pain or dyspnea. Objective Data Objective Data Vital Signs: Vital Signs Temp Pulse Resp BP Pulse Ox O2 Del Method 98.1 F 61 16 126/64 H 96 Room Air 12/06/24 04:03 12/06/24 04:03 12/06/24 04:03 12/06/24 04:03 12/06/24 04:03 12/06/24 04:03 Oxygen Delivery Method Room Air Weight: 194 lb 4 oz Body Mass Index (BMI) 27.8 Intake & Output: Intake and Output for Last 24 Hours 12/04/24 12/05/24 12/06/24 23:59 23:59 23:59 Intake Total 1580 / 1580 2055 / 2055 350 / 350 Output Total 1900 / 1900 1350 / 1350 475 / 475 Balance -320 / -320 705 / 705 -125 / -125 Lab / Micro Data 12/06/24 05:25 12/06/24 05:25 Labs: Laboratory Results - last 24 hr 12/05/24 06:42: WBC 8.4, RBC 3.65 L, Hgb 11.2 L, Hct 32.4 L, MCV 88.8, MCH 30.7,MCHC 34.6, RDW Std Deviation 43.7, RDW Coeff of Lisa 13.4, Plt Count 175, MPV 11.1, Immature Gran % (Auto) 0.400, Neut % (Auto) 73.3 H, Lymph % (Auto) 13.4 L,Caswell % (Auto) 10.2 H, Eos % (Auto) 2.2, Baso % (Auto) 0.5, Absolute Neuts (auto)6.1, Absolute Lymphs (auto) 1.12, Nucleated RBC % 0, Sodium 132 L, Potassium 3.5, Chloride 102, Carbon Dioxide 20.7 L, Anion Gap 10, BUN 13, Creatinine 1.14,Estim Creat Clear Calc 49.11 L, Est GFR (MDRD) Non-Af 61, BUN/Creatinine Ratio 11.6, Glucose 117 H, Calcium 8.2, Total Bilirubin 2.15 H, AST 18, ALT 11, Alkaline Phosphatase 129, Total Protein 5.6 L, Albumin 3.1 L, Globulin 2.5, Albumin/Globulin Ratio 1.2 12/06/24 05:25: WBC 8.8, RBC 3.35 L, Hgb 10.5 L, Hct 29.5 L, MCV 88.1, MCH 31.3,MCHC 35.6, RDW Std Deviation 43.4, RDW Coeff of Lisa 13.4, Plt Count 169, MPV 11.6, Immature Gran % (Auto) 0.600, Neut % (Auto) 76.5 H, Lymph % (Auto) 10.8 L,Caswell % (Auto) 9.5, Eos % (Auto) 2.3, Baso % (Auto) 0.3, Absolute Neuts (auto) 6.7, Absolute Lymphs (auto) 0.95, Nucleated RBC % 0, Sodium 134, Potassium 3.5, Chloride 103, Carbon Dioxide 21.7, Anion Gap 9, BUN 12, Creatinine 1.09, Estim Creat Clear Calc 51.37, Est GFR (MDRD) Non-Af 65, BUN/Creatinine Ratio 11.2, Glucose 102 H, Calcium 7.8, Total Bilirubin 1.53 H, AST 17, ALT 13, Alkaline Phosphatase 127, Total Protein 5.4 L, Albumin 2.9 L, Globulin 2.5, Albumin/Globulin Ratio 1.2 Physical Exam Narrative Physical Examination: General: Awake, alert, oriented to self, place and recent events, remains cooperative, seated upright in the [facility] bedside chair, more alert and interactive. Skin: Normal color, normal turgor, no icterus, no cyanosis except for occasionalstage ecchymoses, abrasion, bilateral lower extremity venous stasis skin changes. HEENT: AT/NC, EOMI, PERRLA, chronic vision deficits with underlying macular degeneration, MMM. Lungs: Mildly diminished, greater bases, appropriate effort, no rales, ronchi orwheezing. Heart: Regular rate and rhythm; no gallop, rub audible. Abdomen: Soft, overweight, NTTP, ND, mildly hyperactive BS. Extremities: No cyanosis, no clubbing, pedal to mid cullen 1-2+ pitting edema, chronic with venous stasis skin changes. Neurological: Patient awake, alert, oriented as noted, cognitive function intact; pupils equally reactive to light and accommodation, cranial nerves grossly normal, moving all 4 extremities, strength i improving, moderately to severely global decreased. Psychiatric: Affect appears normal, no acute evidence of depressive or anxiety feelings. 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 #1. Acute urinary retention suspected in large part secondary to acute colitis with concern for possible recurrent colonic malignancy as noted #2: Patient admitted to medical surgical floor, Puente catheter placed upon ED arrival, mild hematuria noted, no obvious evidence of UTI, initiated and continued on daily Flomax regimen. Patient hesitant to discharge to home with puente. 12/05/24 attempted to Puente discontinuation however patient later in the day 12/05/2024 required Puente replacement as continued evidence of urinary retention. Discussed with case management/social work 12/05/2024 and requested patient be changed to inpatient status given his prolonged admission coupled with electrolyte disturbances and need for skilled facility placement. At this time ongoing PT/OT/case management evaluation as patient does need skilled facility placement. #2. Persistent guiac positive diarrhea with recent history of acute colitis status post previous right hemicolectomy for villous adenoma complicated by history of previous colon cancer with concern for possible recurrent malignancy:Patient with negative C. difficile and enteric pathogens, diarrhea resolved, will have loperamide as needed, stool guaiac positive but given his significant diarrhea not entirely surprising, baseline hemoglobin ranging 11-12, admission 12/03/2024 hgb 12.5->12/04/2024 noted to be 10.9, temporarily held Eliquis->12/05/24 hemoglobin 11.2. 12/06/24 Hgb 10.5, will attempt restart of eliquis and continue to monitor Hgb. Pending on trending may require outpatient follow-up with gastroenterology evaluation given concern for possible reoccurrence. #3. Hyponatremia, mild, likely residual component of GI losses: 12/05/2024 sodium 132, chloride 102, judiciously hydrated, per discussion with nursing staff diarrhea significantly improved. 12/06/24 Na 134, Chl 103, improved. #4. Acute on Chronic normocytic anemia with as noted stool guiac positive setting with profuse diarrhea, resolved: Admission hemoglobin 12.5, MCV 89.9 butdehydrated, baseline hemoglobin noted to vacillate however more recently starting in October 28 to range, 12/04/2024 hemoglobin 10.9, MCV 88.1. Held eliquis 12/04/24. 12/05/2024 hemoglobin 11.2, MCV 88.8-->12/06/24 Hgb 10.5, will attempt restart of eliquis and continue to monitor Hgb. #5. Significant debility, compounded by underlying macular degeneration with vision impairment with adult failure to thrive: Patient living at home alone, significantly weakened and debilitated given #1, #2, will maintain on fall precautions, PT/OT consulted for jail facility placement needs. #6. PAF: Patient with history of prior similar atrial fibrillation with junctional bradycardia, status post pacemaker placement, will continue patient home metoprolol regimen, 12/04/24 temporally held Eliquis. 12/06/24 will restart Eliquis and monitor Hgb trend as noted with resolved diarrhea as noted #2. #7. Hypertension: Continue home regimen including metoprolol, losartan, amlodipine with hold parameters as needed, PRN hydralazine. #8. Hyperlipidemia: Will continue patient on statin therapy. #9. Chronic Kidney Disease Stage IIIa: Admission BUN/Cr 14/1.21, GFR 57, baseline renal function primarily 1.2-1.4, 12/04/2024 BUN/Cr 14/1.18, GFR 59->12/06/24 BUN/Cr 12/1.09, GFR 65. Continue to trend. #10. Hypothyroidism: Will continue patient on levothyroxine regimen. #11. DVT prophylaxis: 12/04/2024 temporarily held Eliquis given positive stool guaiac and mild hemoglobin decreased, appears to have been stabilized and diarrhea is resolved. 12/06/2024 will resume Eliquis and continue monitor hemoglobin. #12. CODE status: DNR-CCA with intubation. Charges/Coding Visit Charges Inpatient E&M: 18637 Subs Hosp L2 12/06/24 1039 <Electronically signed by Unique Salazar MD> Cosigner Signature (if applicable): CC: ~ Signed [facility] Work Phone: 1(333) 468-345007-20-2025 Progress note [facility] Medical Records Department [address] [facility] [place] [address] Progress Note - Hospitalist 12/06/24 0647 MR#: [id number] Acct: [id number] Name: ASHIA PEREZ Rep #:[id number] : 1935 89 From: Unique Salazar MD PCP: Dr. Bernard Nugent MD Status:ADM I N [id number] Reason for Visit Chief Complaint: Persistent diarrhea and difficulty with urination Subjective Subjective Patient with no acute events overnight per self and per nursing report. Unfortunately as noted previously patient failed removal of Puente and voiding trial yesterday with Puente catheter replaced awaiting jail facility precertification/placement given unable to safely care for self with macular degeneration in the setting of also having a catheter. Patient does report thathis appetite continues to improve and he is less fatigued. He denies any reoccurrence of loose stools. Patient denies fevers, chills, nausea, emesis, abdominal pain, chest pain or dyspnea. Objective Data Objective Data Vital Signs: Vital Signs Temp Pulse Resp BP Pulse Ox O2 Del Method 98.1 F 61 16 126/64 H 96 Room Air 12/06/24 04:03 12/06/24 04:03 12/06/24 04:03 12/06/24 04:03 12/06/24 04:03 12/06/24 04:03 Oxygen Delivery Method Room Air Weight: 194 lb 4 oz Body Mass Index (BMI) 27.8 Intake & Output: Intake and Output for Last 24 Hours 07/12/05/24 12/06/24 23:59 23:59 23:59 Intake Total 1580 / 1580 2054 / 2054 350 / 350 Output Total 1900 / 1900 1350 / 1350 475 / 475 Balance -320 / -320 705 / 705 -125 / -125 Lab / Micro Data 12/06/24 05:25 12/06/24 05:25 Labs: Laboratory Results - last 24 hr 12/05/24 06:42: WBC 8.4, RBC 3.65 L, Hgb 11.2 L, Hct 32.4 L, MCV 88.8, MCH 30.7,MCHC 34.6, RDW Std Deviation 43.7, RDW Coeff of Lisa 13.4, Plt Count 175, MPV 11.1, Immature Gran % (Auto) 0.400, Neut %(Auto) 73.3 H, Lymph % (Auto) 13.4 L,Caswell % (Auto) 10.2 H, Eos % (Auto) 2.2, Baso % (Auto) 0.5, Absolute Neuts (auto)6.1, Absolute Lymphs (auto) 1.12, Nucleated RBC % 0, Sodium 132 L, Potassium 3.5, Chloride 102, Carbon Dioxide 20.7 L, Anion Gap 10, BUN 13, Creatinine 1.14,Estim Creat Clear Calc 49.11 L, Est GFR (MDRD) Non-Af 61, BUN/Creatinine Ratio 11.6, Glucose 117 H, Calcium 8.2, Total Bilirubin 2.15 H, AST 18, ALT 11, Alkaline Phosphatase 129, Total Protein 5.6 L, Albumin 3.1 L, Globulin 2.5, Albumin/Globulin Ratio 1.2 12/06/24 05:25: WBC 8.8, RBC 3.35 L, Hgb 10.5 L, Hct 29.5 L, MCV 88.1, MCH 31.3,MCHC 35.6, RDW Std Deviation 43.4, RDW Coeff of Lisa 13.4, Plt Count 169, MPV 11.6, Immature Gran % (Auto) 0.600, Neut %(Auto) 76.5 H, Lymph % (Auto) 10.8 L,Caswell % (Auto) 9.5, Eos % (Auto) 2.3, Baso % (Auto) 0.3, Absolute Neuts (auto) 6.7, Absolute Lymphs (auto) 0.95, Nucleated RBC % 0, Sodium 134, Potassium 3.5, Chloride 103, Carbon Dioxide 21.7, Anion Gap 9, BUN 12, Creatinine 1.09, Estim Creat Clear Calc 51.37, Est GFR (MDRD) Non-Af 65, BUN/Creatinine Ratio 11.2, Glucose 102 H, Calcium 7.8, Total Bilirubin 1.53H, AST 17, ALT 13, Alkaline Phosphatase 127, Total Protein 5.4 L, Albumin 2.9 L, Globulin 2.5, Album in/Globulin Ratio 1.2 Physical Exam Narrative Physical Examination: General: Awake, alert, oriented to self, place and recent events, remains cooperative, seated upright in the [facility] bedside chair, more alert and interactive. Skin: Normal color, normal turgor, no icterus, no cyanosis except for occasionalstage ecchymoses, abrasion, bilateral lower extremity venous stasis skin changes. HEENT: AT/NC, EOMI, PERRLA, chronic vision deficits with underlying macular degeneration, MMM. Lungs: Mildly diminished, greater bases, appropriate effort, no rales, ronchi orwheezing. Heart: Regular rate and rhythm; no gallop, rub audible. Abdomen: Soft, overweight, NTTP, ND, mildly hyperactive BS. Extremities: No cyanosis, no clubbing, pedal to mid cullen 1-2+ pitting edema, chronic with venous stasis skin changes. Neurological: Patient awake, alert, oriented as noted, cognitive function intact; pupils equally reactive to light and accommodation, cranial nerves grossly normal, moving all 4 extremities, strengthi improving, moderately to severely global decreased. Psychiatric: Affect appears normal, no acute evidence of depressive or anxiety feelings. 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 #1. Acute urinary retention suspected in large part secondary to acute colitis with concern for possible recurrent colonic malignancy as noted #2: Patient admitted to medical surgical floor, Puente catheter placed upon ED arrival, mild hematuria noted, no obvious evidence of UTI, initiated and continued on daily Flomax regimen. Patient hesitant to discharge to home with puente. 12/05/24 attempted toFoley discontinuation however patient later in the day 12/05/2024 required Puente replacement as continued evidence of urinary retention. Discussed with case management/social work 12/05/2024 and requested patient be changed to inpatient status given his prolonged admission coupled with electrolyte dis turbances and need for skilled facility placement. At this time ongoing PT/OT/case management evaluation as patient does need skilled facility placement. #2. Persistent guiac positive diarrhea with recent history of acute colitis status post previous right hemicolectomy for villous adenoma complicated by history of previous colon cancer with concern for possible recurrent malignancy:Patient with negative C. difficile and enteric pathogens, diarrhea r esolved, will have loperamide as needed, stool guaiac positive but given his significant diarrhea not entirely surprising, baseline hemoglobin ranging 11-12, admission 12/03/2024 hgb 12.5->12/04/2024 noted to be 10.9, temporarily held Eliquis->12/05/24 hemoglobin 11.2. 12/06/24 Hgb 10.5, will attempt restart of eliquis and continue to monitor Hgb. Pending on trending may require outpatient follow-up with gastroenterology evaluation given concern for possible reoccurrence. #3. Hyponatremia, mild, likely residual component of GI losses: 12/05/2024 sodium 132, chloride 102,judiciously hydrated, per discussion with nursing staff diarrhea significantly improved. 12/06/24 Na134, Chl 103, improved. #4. Acute on Chronic normocytic anemia with as noted stool guiac positive setting with profuse diarrhea, resolved: Admission hemoglobin 12.5, MCV 89.9 butdehydrated, baseline hemoglobin noted to vacillate however more recently starting in October 28 to 12 range, 12/04/2024 hemoglobin 10.9, MCV 88.1. Held eliquis 12/04/24. 12/05/2024 hemoglobin 11.2, MCV 88.8-->12/06/24 Hgb 10.5, will attempt restart of eliquis and continue to monitor Hgb. #5. Significant debility, compounded by underlying macular degeneration with vision impairment withadult failure to thrive: Patient living at home alone, significantly weakened and debilitated given#1, #2, will maintain on fall precautions, PT/OT consulted for jail facility placement needs. #6. PAF: Patient with history of prior similar atrial fibrillation with junctional bradycardia, status post pacemaker placement, will continue patient home metoprolol regimen, 12/04/24 temporally heldEliquis. 12/06/24 will restart Eliquis and monitor Hgb trend as noted with resolved diarrhea as noted #2. #7. Hypertension: Continue home regimen including metoprolol, losartan, amlodipine with hold parameters as needed, PRN hydralazine. #8. Hyperlipidemia: Will continue patient on statin therapy. #9. Chronic Kidney Disease Stage IIIa: Admission BUN/Cr 14/1.21, GFR 57, baseline renal function primarily 1.2-1.4, 12/04/2024 BUN/Cr 14/1.18, GFR 59- >12/06/24 BUN/Cr 12/1.09, GFR 65. Continue to trend. #10. Hypothyroidism: Will continue patient on levothyroxine regimen. #11. DVT prophylaxis: 12/04/2024 temporarily held Eliquis given positive stool guaiac and mild hemoglobin decreased, appears to have been stabilized and diarrhea is resolved. 12/06/2024 will resume Eliquis and continue monitor hemoglobin. #12. CODE status: DNR-CCA with intubation. Charges/Coding Visit Charges Inpatient E&M: 05127 Subs Hosp L2 12/06/24 1039 Cosigner Signature (if applicable): CC: ~ Signed [facility]07-19-2025 Discharge summary Author Carley Clarke [facility] Note Date/Time December 05, 2024 3:14 pm [facility] Medical Records Department [address] [place] [address] Emergency Department Summary 12/03/24 MR#: [id number] Acct: [id number] Name: ANAASHIA JAMEEL Rep #:[id number] : 1935 89 From: Carley CAMPOS PCP: Dr. Bernard Nugent MD Status:ADM I NO Location: [facility] [id number] <Statement entered by Damien Welch DO - 12/05/24 15:14> Patient was seen and examined with physician special event assistant Carley All components of the history and physical confirmed and agreed. History of present illness and physical exam: Patient is a 89-year-old male with past medical history of atrial fibrillation on Eliquis, chronic kidney disease, type 2 diabetes, hemicolectomy, hyponatremia, aortic aneurysm who states that about 3 weeks ago he developed rectal pain and diarrhea. He had previous hemicolectomy approximately 13 years ago for polyps. He states that he had a colonoscopy about 10 years ago. He notes that he was admitted to the hospital recently for colitis and was treated with IV antibiotics. He had negative stool studies according to records. States that he still having diarrhea multiple times a day and states that he took Imodium this morning he notes that he was having some difficulty urinating as well therefore he came here for further evaluation management. Review of systems: Agree with above Physical exam: Agree with above MDM Patient is a 89-year-old male who presented to the emergency department chief complaint of ongoing rectal pain, diarrhea and difficulty urinating. On the differential diagnosis includes but not limited to UTI, urinary retention, acutekidney injury, electrolyte abnormality. Once workup is obtained reviewed he will be reevaluated. Patient CBC reviewed showed no evidence leukocytosis white blood count normal at10.2, he was 12.5, platelet count of 233. Patient's sodium normal 135, potassium normal at 4, creatinine was 1.21, urinalysis reviewed showed no evidence of infection. Postvoid residual was noted be 400 cc Puente catheter was placed. At this point time given his abdominal exam and his laboratory values do not believe that CT imaging is indicated at this point in time as his abdomen is benign and his diarrhea is unchanged. Was noted that the patient secondary to his macular degeneration was having significant difficulty with managing the Puente catheter therefore discussed casewith hospitalist for admission. Patient was accepted for admission to the hospital under the hospitalist servicefor observation patient is agreeable to this plan. Final impression: Urinary retention History of macular degeneration Diarrhea Disposition: Patient will be admitted to the hospital for further evaluation management Supervising attending attestation: Damien Welch D.O. HPI History of Present Illness Chief Complaint: Complaint Narrative Narrative: 89-year-old male with past medical history of A-fib on Eliquis, CKD, DM 2, hemicolectomy, hyponatremia, aortic aneurysm without rupture states 3 weeks agohe d developed rectal pain and diarrhea. He had a previous hemicolectomy approximately 13 years ago for polyps. No history of colon cancer. Has not hada colonoscopy in at least 10 years. He was admitted from 11/11 through 11/[address] scan showed colitis of the rectum and he was treated with IV Zosyn and fluids. He had negative stool studies. He followed up with Dr. Nugent and trialed Imodium and took 6 tablets the first day and was told to cut down and only use it as needed. States he is still having diarrhea multiple times a day so he took 1 Imodium this morning. He has not noticed it looking black or bloody but he is vision impaired. He is scheduled for a colonoscopy in December. He denies fever or chills, nausea or vomiting, or decreased p.o. intake. External records reviewed: C. difficile and enteric pathogen stool panel is negative on 11/11/2024 [facility] Medical History NSVT (nonsustained ventricular tachycardia) [...] Medications ?Medication ?Instructions ?Recorded ?Last Taken ?Type levothyroxine 25 mcg tablet 25 mcg PO DAILY 02/20/24 U nknown History apixaban 2.5 mg tablet 2.5 mg PO BID blood thinner #60 03/27/24 Unknown Rx tabs amlodipine 5 mg tablet 5 mg PO DAILY #90 tabs 03/31 Unknown Rx losartan 100 mg tablet 100 mg PO QDAY 03/31/24 Unkn own History metoprolol tartrate 25 mg tablet 25 mg PO BID #180 tab s 08/18/24 Unknown Rx dicyclomine 20 mg tablet 20 mg PO TID #30 tabs Unknown Rx citalopram 10 mg tablet 10 mg PO QDAY 11/25/24 Unkno wn History furosemide 40 mg tablet 40 mg PO .QSATSUN edema 02/11 Unknown History glimepiride 1 mg tablet 1 mg PO QDAY 11/25/24 Unknow n History loperamide 2 mg capsule 2 mg PO TID PRN Diarrhea 02/11 Unknown History pravastatin 40 mg tablet 40 mg PO QHS cholesterol 03/13 Unknown History Allergy/AdvReac Type Severity Reaction Status Date / Time codeine AdvReac Other Verified 12/03/24 12:22 lisinopril AdvReac Other Verified 12/03/24 12:22 Family History Father CVA (cerebral vascular accident) Mother Diabetes Sister Heart disease PPM Surgical History History of appendectomy History of cataract surgery History of tonsillectomy H/O hemicolectomy Hx of cholecystectomy Social History (Updated 11/25/24 @ 07:51 by Sanjana Gallegos) household members: none housing: [facility] Smoking Status: Former smoker Smokeless tobacco user: other alcohol intake: current alcohol intake frequency: holidays/special occasions only substance use type: does not use ROS ROS ED ROS Narrative Constitutional: Negative for fever, chills, malaise. CVS: Negative for chest pain. Respiratory: Negative for shortness of breath, cough. GI: Positive for suprapubic abdominal pain, diarrhea. No nausea or vomiting. : Negative for dysuria, hematuria. EXAM Physical Exam Narrative Exam Narrative: CONST: Patient sitting in no acute distress. EYES: Normal inspection. ENT: Normal inspection, moist mucous membranes. NECK: Normal inspection. RESP: No respiratory distress, CTAB. CVS: Regular rate and rhythm, no murmur, no gallop. ABD: Soft with suprapubic tenderness, no guarding or rebound, nondistended, no hepatosplenomegaly. SKIN: Color normal, no rash, warm, dry, intact. EXTREMITIES: Normal appearance, no pedal edema. NEURO: Alert and answering questions appropriately. PSYCH: Normal affect. Const Vital Signs: 12/03/24 12:20 12/03/24 15:10 Temperature 98 F Temperature Source Oral Pulse Rate 60 63 Respiratory Rate 18 18 Blood Pressure 164/71 H 147/84 H Blood Pressure Mean 102 105 Pulse Ox 97 91 Oxygen Delivery Method Room Air Room Air MDM MDM MDM Narrative Medical decision making narrative: Differential includes but not limited to urinary retention, UTI, ANISH 59-year-old male presents with ongoing rectal pain and diarrhea and difficulty urinating. He was recently treated for colitis due to the above symptoms and isscheduled for a colonoscopy next month. He is awake alert no distress. Vital stable. Moist mucous membranes. Normal cardiopulmonary exam. Abdomen is soft with mild suprapubic tenderness but no peritoneal signs. He has no flank pain. Labs overall look improved from his prior admission with white count of 10.2 andhemoglobin is 12.5 which is trending up. Electrolytes are normal. Creatinine of 1.21 is baseline. Postvoid residuals over 400 cc so a Puente catheter was placed. Urinalysis is negative. I do not think CT imaging is indicated as he does not really have abdominal pain and does not have a leukocytosis. His chronic diarrhea can be evaluated at his outpatient gastroenterology appointment. Initially I plan to discharge the patient home with a leg bag and outpatient urology follow-up. 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 Nursing staff trying to show him how to clamp and unclamp the Puente and he cannot see what he is doing. It is also a fall risk with the tubing. I discussed the case with the hospitalist for observation. History & Record Review Discussion w/independent historian: Patient Additional record(s) reviewed:: Prior inpatient record, Prior ED visit and Priorlabs Lab Data Attestation: I reviewed the patient's lab results. Labs: Laboratory Results - last 24 hr 12/03/24 12/03/24 12:50 14:20 WBC 10.2 RBC 4.05 L Hgb 12.5 L Hct 36.4 L MCV 89.9 MCH 30.9 MCHC 34.3 RDW Std Deviation 45.0 H RDW Coeff of Lisa 13.7 Plt Count 233 MPV 11.2 Immature Gran % (Auto) 0.500 Neut % (Auto) 79.2 H Lymph % (Auto) 9.4 L Caswell % (Auto) 8.9 Eos % (Auto) 1.5 Baso % (Auto) 0.5 Absolute Neuts (auto) 8.1 H Absolute Lymphs (auto) 0.95 Nucleated RBC % 0 Sodium 135 Potassium 4.0 Chloride 99 Carbon Dioxide 25.1 Anion Gap 11 BUN 14 Creatinine 1.21 H Estim Creat Clear Calc 46.69 L Est GFR (MDRD) Non-Af 57 L BUN/Creatinine Ratio 11.7 Glucose 127 H Calcium 8.9 Urine Color Yellow Urine Clarity Clear Urine pH 7.0 Ur Specific [place] 1.010 Urine Protein 30 H Urine Glucose (UA) Normal Urine Ketones Negative Urine Occult Blood 10 H Urine Nitrite Negative Urine Bilirubin Negative Urine Urobilinogen Normal Ur Leukocyte Esterase Negative Urine RBC 0 SEEN Urine WBC 0 SEEN Ur Squamous Epith Cells 0 SEEN Urine Bacteria 0 SEEN Urine Mucus 0 SEEN Discharge Plan Triage Chief Complaint: Complaint ED Midlevel Provider: Carley Clarke ED Provider: Damien Welch Dx/Rx/DC Orders Clinical Impression: Chronic diarrhea, Acute urinary retention, Impaired vision, Macular degeneration Instructions: ED Puente Catheter, Care, ED Urinary Retention, Male Prescriptions: No Action losartan 100 mg tablet 100 mg PO QDAY amlodipine 5 mg tablet 5 mg PO DAILY Qty: 90 3RF furosemide 40 mg tablet 40 mg PO .QSATSUN Rx Instructions: Hold if creatinine is more than 0.5 mg/dL above the baseline loperamide 2 mg capsule 2 mg PO TID PRN (Reason: Diarrhea) Rx Instructions: You may take loperamide 2 to 4 mg 3 times a day as needed for loose stools and diarrhea citalopram 10 mg tablet 10 mg PO QDAY glimepiride 1 mg tablet 1 mg PO QDAY pravastatin 40 mg tablet 40 mg PO QHS Patient Comments: CHOLESTEROL levothyroxine 25 mcg tablet 25 mcg PO DAILY dicyclomine 20 mg tablet 20 mg PO TID Qty: 30 0RF apixaban 2.5 mg tablet 2.5 mg PO BID Qty: 60 1RF metoprolol tartrate 25 mg tablet 25 mg PO BID Qty: 180 3RF Primary Care Provider: Bernard Nugent Chi Referrals: Shahram Ortega MD [Med Staff - Active Staff] - Bernard Nugent Chi, MD [Primary Care Provider] - Activity Restrictions/Additional Instructions: Your bladder was not draining urine properly so a Puente catheter was placed. There is no signs of urinary tract infection. Call the urology office for an appointment. Keep your colonoscopy as scheduled to evaluate the ongoing diarrhea. Drink plenty of fluids. Print Language: Swiss Disposition Disposition: Home, Self Care What to do if you have Problems For any increased pain, shortness of breath, bleeding, nausea or vomiting, chestpain, or any unexpected problems, contact your Primary Care Provider. Call [facility] ([phone]) or report to the closest Emergency Room. Call 911 if necessary. 12/03/24 1549 <Electronically signed by Carley CAMPOS> Cosigner Signature (if applicable): 12/05/24 1902 <Electronically signed by Damien Welch DO> CC: Dr. Bernard Nugent MD ~ Signed [facility] Work Phone: [phone]) 969-929907-19-2025 Discharge summary [facility] Medical Records Department [address] [place] [id number] Emergency Department Summary 12/03/24 MR#: [id number] Acct: [id number] Name: ASHIA PEREZ Rep #:[id number] : 1935 89 From: Carley CAMPOS PCP: Dr. Bernard Nugent MD Status:ADM I NO Location: [place] [address] Patient was seen and examined with physician special event assistant Carley All components of the history and physical confirmed and agreed. History of present illness and physical exam: Patient is a 89-year-old male with past medical history of atrial fibrillation on Eliquis, chronic kidney disease, type 2 diabetes, hemicolectomy, hyponatremia, aortic aneurysm who states that about 3 weeks ago he developed rectal pain and diarrhea. He had previous hemicolectomy approximately 13 years ago for polyps. He states that he had a colonoscopy about 10 years ago. He notes that he was admitted to the hospital recently for colitis and was treated with IV antibiotics. He had negative stool studies according to records. States that he still having diarrhea multiple times a day and statesthat he took Imodium this morning he notes that he was having some difficulty urinating as well ther efore he came here for further evaluation management. Review of systems: Agree with above Physical exam: Agree with above [facility] Patient is a 89-year-old male who presented to the emergency department chief complaint of ongoing rectal pain, diarrhea and difficulty urinating. On the differential diagnosis includes but not limited to UTI, urinary retention, acutekidney injury, electrolyte abnormality. Once workup is obtained reviewed he will be reevaluated. Patient CBC reviewed showed no evidence leukocytosis white blood count normal at10.2, he was 12.5, platelet count of 233. Patient's sodium normal 135, potassium normal at 4, creatinine was 1.21, urinalysis reviewed showed no evidence of infection. Postvoid residual was noted be 400 cc Puente catheter was placed. At this point time given his abdominal exam and his laboratory values do not believe that CT imaging is indicated at this point in time as his abdomen is benign and his diarrhea is unchanged. Was noted that the patient secondary to his macular degeneration was having significant difficulty with managing the Puente catheter therefore discussed casewith hospitalist for admission. Patient was accepted for admission to the hospital under the hospitalist servicefor observation patient is agreeable to this plan. Final impression: Urinary retention History of macular degeneration Diarrhea Disposition: Patient will be admitted to the hospital for further evaluation management Supervising attending attestation: Damien GRAY History of Present Illness Chief Complaint: Complaint Narrative Narrative: 89-year-old male with past medical history of A-fib on Eliquis, CKD, DM 2, hemicolectomy, hyponatremia, aortic aneurysm without rupture states 3 weeks agohe d developed rectal pain and diarrhea. He had a previous hemicolectomy approximately 13 years ago for polyps. No history of colon cancer. Has not hada colonoscopy in at least 10 years. He was admitted from 11/11 through 11/[address] scan showed colitis of the rectum and he was treated with IV Zosyn and fluids. He had negative stool studies. He followed up with Dr. Nugent and trialed Imodium and took 6 tablets the first day and was told to cut down and only use it as needed. States he is still having diarrhea multiple times a day so he took 1 Imodium this morning. He has not noticed it looking black or bloody but he is vision impaired. He is scheduled for a colonoscopy in December. He denies fever or chills, nausea or vomiting, or decreased p.o. intake. External records reviewed: C. difficile and enteric pathogen stool panel is negative on 11/11/2024 [facility] Medical History NSVT (nonsustained ventricular tachycardia) [...] Medications ?Medication ?Instructions ?Recorded ?Last Taken ?Type levothyroxine 25 mcg tablet 25 mcg PO DAILY 02/20/24 U nknown History apixaban 2.5 mg tablet 2.5 mg PO BID blood thinner #60 03/27/24 Unknown Rx tabs amlodipine 5 mg tablet 5 mg PO DAILY #90 tabs 03/31 Unknown Rx losartan 100 mg tablet 100 mg PO QDAY 03/31/24 Unkn own History metoprolol tartrate 25 mg tablet 25 mg PO BID #180 tab s 08/18/24 Unknown Rx dicyclomine 20 mg tablet 20 mg PO TID #30 tabs Unknown Rx citalopram 10 mg tablet 10 mg PO QDAY 11/25/24 Unkno wn History furosemide 40 mg tablet 40 mg PO .QSATSUN edema 02/11 Unknown History glimepiride 1 mg tablet 1 mg PO QDAY 11/25/24 Unknow n History loperamide 2 mg capsule 2 mg PO TID PRN Diarrhea 02/11 Unknown History pravastatin 40 mg tablet 40 mg PO QHS cholesterol 03/13 Unknown History Allergy/AdvReac Type Severity Reaction Status Date / Time codeine AdvReac Other Verified 12/03/24 12:22 lisinopril AdvReac Other Verified 12/03/24 12:22 Family History Father CVA (cerebral vascular accident) Mother Diabetes Sister Heart disease PPM Surgical History History of appendectomy History of cataract surgery History of tonsillectomy H/O hemicolectomy Hx of cholecystectomy Social History (Updated 11/25/24 @ 07:51 by Sanjana Gallegos) household members: none housing: pen[facility] Smoking Status: Former smoker Smokeless tobacco user: other alcohol intake: current alcohol intake frequency: holidays/special occasions only substance use type: does not use ROS ROS ED ROS Narrative Constitutional: Negative for fever, chills, malaise. CVS: Negative for chest pain. Respiratory: Negative for shortness of breath, cough. GI: Positive for suprapubic abdominal pain, diarrhea. No nausea or vomiting. : Negative for dysuria, hematuria. EXAM Physical Exam Narrative Exam Narrative: CONST: Patient sitting in no acute distress. EYES: Normal inspection. ENT: Normal inspection, moist mucous membranes. NECK: Normal inspection. RESP: No respiratory distress, CTAB. CVS: Regular rate and rhythm, no murmur, no gallop. ABD: Soft with suprapubic tenderness, no guarding or rebound, nondistended, no hepatosplenomegaly. SKIN: Color normal, no rash, warm, dry, intact. EXTREMITIES: Normal appearance, no pedal edema. NEURO: Alert and answering questions appropriately. PSYCH: Normal affect. Const Vital Signs: 12/03/24 12:20 12/03/24 15:10 Temperature 98 F Temperature Source Oral Pulse Rate 60 63 Respiratory Rate 18 18 Blood Pressure 164/71 H 147/84 H Blood Pressure Mean 102 105 Pulse Ox 97 91 Oxygen Delivery Method Room Air Room Air MDM MDM MDM Narrative Medical decision making narrative: Differential includes but not limited to urinary retention, UTI, ANISH 59-year-old male presents with ongoing rectal pain and diarrhea and difficulty urinating. He was recently treated for colitis due to the above symptoms and isscheduled for a colonoscopy next month. He is awake alert no distress. Vital stable. Moist mucous membranes. Normal cardiopulmonary exam. Abdomen is soft with mild suprapubic tenderness but no peritoneal signs. He has no flank pain. Labs overall look improved from his prior admission with white count of 10.2 andhemoglobin is 12.5 which is trending up. Electrolytes are normal. Creatinine of 1.21 is baseline. Postvoid residuals over 400 ccso a Puente catheter was placed. Urinalysis is negative. I do not think CT imaging is indicated as he does not really have abdominal pain and does not have a leukocytosis. His chronic diarrhea can be evaluated at his outpatient gastroenterology appointment. Initially I plan to discharge the patient home with a leg bag and outpatient urology follow-up. 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 Nursing staff trying to show him how to clamp and unclamp the Puente and he cannot see what he is doing. It is also a fall risk with the tubing. I discussed the case with the hospitalist for observation. History & Record Review Discussion w/independent historian: Patient Additional record(s) reviewed:: Prior inpatient record, Prior ED visit and Priorlabs Lab Data Attestation: I reviewed the patient's lab results. Labs: Laboratory Results - last 24 hr 12/03/24 12/03/24 12:50 14:20 WBC 10.2 RBC 4.05 L Hgb 12.5 L Hct 36.4 L MCV 89.9 MCH 30.9 MCHC 34.3 RDW Std Deviation 45.0 H RDW Coeff of Lisa 13.7 Plt Count 233 MPV 11.2 Immature Gran % (Auto) 0.500 Neut % (Auto) 79.2 H Lymph % (Auto) 9.4 L [place] % (Auto) 8.9 Eos % (Auto) 1.5 Baso % (Auto) 0.5 Absolute Neuts (auto) 8.1 H Absolute Lymphs (auto) 0.95 Nucleated RBC % 0 Sodium 135 Potassium 4.0 Chloride 99 Carbon Dioxide 25.1 Anion Gap 11 BUN 14 Creatinine 1.21 H Estim Creat Clear Calc 46.69 L Est GFR (MDRD) Non-Af 57 L BUN/Creatinine Ratio 11.7 Glucose 127 H Calcium 8.9 Urine Color Yellow Urine Clarity Clear Urine pH 7.0 Ur Specific [place] 1.010 Urine Protein 30 H Urine Glucose (UA) Normal Urine Ketones Negative Urine Occult Blood 10 H Urine Nitrite Negative Urine Bilirubin Negative Urine Urobilinogen Normal Ur Leukocyte Esterase Negative Urine RBC 0 SEEN Urine WBC 0 SEEN Ur Squamous Epith Cells 0 SEEN Urine Bacteria 0 SEEN Urine Mucus 0 SEEN Discharge Plan Triage Chief Complaint: Complaint ED Midlevel Provider: Carley Clarke ED Provider: Damien Welch Dx/Rx/DC Orders Clinical Impression: Chronic diarrhea, Acute urinary retention, Impaired vision, Macular degeneration Instructions: ED Puente Catheter, Care, ED Urinary Retention, Male Prescriptions: No Action losartan 100 mg tablet 100 mg PO QDAY amlodipine 5 mg tablet 5 mg PO DAILY Qty: 90 3RF furosemide 40 mg tablet 40 mg PO .QSATSUN Rx Instructions: Hold if creatinine is more than 0.5 mg/dL above the baseline loperamide 2 mg capsule 2 mg PO TID PRN (Reason: Diarrhea) Rx Instructions: You may take loperamide 2 to 4 mg 3 times a day as needed for loose stools and diarrhea citalopram 10 mg tablet 10 mg PO QDAY glimepiride 1 mg tablet 1 mg PO QDAY pravastatin 40 mg tablet 40 mg PO QHS Patient Comments: CHOLESTEROL levothyroxine 25 mcg tablet 25 mcg PO DAILY dicyclomine 20 mg tablet 20 mg PO TID Qty: 30 0RF apixaban 2.5 mg tablet 2.5 mg PO BID Qty: 60 1RF metoprolol tartrate 25 mg tablet 25 mg PO BID Qty: 180 3RF Primary Care Provider: Bernard Nugent Chi Referrals: Shahram Ortega MD [Med Staff - Active Staff] - Bernard Nugent Chi, MD [Primary Care Provider] - Activity Restrictions/Additional Instructions: Your bladder was not draining urine properly so a Puente catheter was placed. There is no signs of urinary tract infection. Call the urology office for an appointment. Keep your colonoscopy as scheduled to evaluate the ongoing diarrhea. Drink plenty of fluids. Print Language: Swiss Disposition Disposition: Home, Self Care What to do if you have Problems For any increased pain, shortness of breath, bleeding, nausea or vomiting, chestpain, or any unexpected problems, contact your Primary Care Provider. Call [facility] ([phone]) or report tothe closest Emergency Room. Call 911 if necessary. 12/03/24 1549 Cosigner Signature (if applicable): 12/05/24 1514 CC: Dr. Bernard Nugent MD ~ Signed [facility]07-19-2025 Progress note Author Unique Salazar [facility] Note Date/Time December 05, 2024 12:0 7pm [facility] Medical Records Department [address] [place] [address] Progress Note - Hospitalist 12/05/24 0706 MR#: [id number] Acct: [id number] Name: ASHIA PEREZ Rep #:[id number] : 1935 89 From: Unique Salazar MD PCP: Dr. Bernard Nugent MD Status:ADM I NO Location: [facility] [id number] Reason for Visit Chief Complaint: Persistent diarrhea and difficulty with urination Subjective Subjective Discussed plan of care with patient with removal of Puente catheter today and continued observation with continued Flomax and if unfortunately unable to urinate appropriately with urinary retention plan to replace Puente catheter. Patient does state he feels improved today and did have an appetite and did eat all of his breakfast. He denies any recurrent issues with diarrhea. He denies any nausea or emesis. Given his blind status plan of care had been made if Puente catheter needs replaced would likely need tertiary facility otherwise patient would plan home with home health to which she is amenable. Patient denies fevers, chills, abdominal pain, chest pain or dyspnea. Objective Data Objective Data Vital Signs: Vital Signs Temp Pulse Resp BP Pulse Ox O2 Del Method 98.3 F 61 18 147/77 H 99 Room Air 12/05/24 05:57 12/05/24 05:57 12/05/24 05:57 12/05/24 05:57 12/05/24 05:57 12/05/24 05:57 Oxygen Delivery Method Room Air Weight: 194 lb 4 oz Body Mass Index (BMI) 27.8 Intake & Output: Intake and Output for Last 24 Hours 12/03/24 12/04/24 12/05/24 23:59 23:59 23:59 Intake Total 1580 / 1580 Output Total 700 / 700 1900 / 1900 550 / 550 Balance -700 / -700 -320 / -320 -550 / -550 Lab / Micro Data 12/05/24 06:42 12/05/24 06:42 Physical Exam Narrative Physical Examination: General: Awake, alert, oriented x 3 and cooperative, laying in the medical surgical bed, fatigued. Skin: Normal color, normal turgor, no icterus, no cyanosis except for occasionalstage ecchymoses, abrasion, bilateral lower extremity venous stasis skin changes. HEENT: AT/NC, EOMI, PERRLA, chronic vision deficits with underlying macular degeneration, MMM. Lungs: Mildly diminished, greater bases, poor effort, no rales, ronchi or wheezing. Heart: Regular rate and rhythm; no gallop, rub audible. Abdomen: Soft, overweight, NTTP, ND, mildly hyperactive BS. Extremities: No cyanosis, no clubbing, pedal to mid cullen 1-2+ pitting edema, chronic with venous stasis skin changes. Neurological: Patient awake, alert, oriented as noted, cognitive function intact; pupils equally reactive to light and accommodation, cranial nerves grossly normal, moving all 4 extremities, strength improved from day prior however remains moderately to severely global decreased. Psychiatric: Affect appears more interactive, smiling, no acute evidence of depressive or anxiety feelings. 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 #1. Acute urinary retention suspected in large part secondary to acute colitis with concern for possible recurrent colonic malignancy as noted #2: Patient admitted to medical surgical floor, Puente catheter placed upon ED arrival, mild hematuria noted, no obvious evidence of UTI, initiated and continued on daily Flomax regimen. Patient hesitant to discharge to home with puente. 12/05/24 will attempt D/C; however, if needs replaced then may need higher level of discharge care with follow-up outpatient with urology. PT/OT/case management consulted fordischarge planning. #2. Persistent diarrhea with recent history of acute colitis status post previous right hemicolectomy for villous adenoma complicated by history of previous colon cancer with concern for possible recurrent malignancy: Patient with negative C. difficile and enteric pathogens, diarrhea resolved, will have loperamide as needed, stool guaiac positive but given his significant diarrhea not entirely surprising, baseline hemoglobin ranging 11-12, admission 12/03/2024 hemoglobin 12.5, repeat hemoglobin 12/04/2024 noted to be 10.9, temporarily held Eliquis. 12/05/24 hemoglobin 11.2. Will need follow-up gastroenterology evaluation given concern for possible reoccurrence. Consider resumption Eliquis 12/06/2024 if no further aggressive diarrhea and hemoglobin in AM stable. #3. Hyponatremia, mild, likely residual component of GI losses: 12/05/2024 sodium 132, chloride 102, will judiciously hydrate, per discussion with nursing staff diarrhea significantly improved. Continue to trend CMP. #4. Chronic normocytic anemia: Admission hemoglobin 12.5, MCV 89.9 but dehydrated, baseline hemoglobin noted to vacillate however more recently starting in October 28 to 12 range, 12/04/2024 hemoglobin 10.9, MCV 88.1-> 12/05/2024hemoglobin 11.2, MCV 88.8. Stable, as noted above temporarily held Eliquis given positive guaiac but again confounded by significant diarrhea #2. Consider resumption Eliquis 12/06/2024 if no further aggressive diarrhea and hemoglobin Tyesha stable. #5. Significant debility, compounded by underlying macular degeneration with vision impairment with adult failure to thrive: Patient living at home alone, significantly weakened and debilitated given #1, #2, will maintain on fall precautions, PT/OT consulted for possibly jail facility placement needs. #6. PAF: Patient with history of prior similar atrial fibrillation with junctional bradycardia, status post pacemaker placement, will continue patient home metoprolol regimen, temporally holding Eliquis as noted. Consider resumption Eliquis 12/06/2024 if no further aggressive diarrhea and hemoglobin Tyesha stable. #7. Hypertension: Continue home regimen including metoprolol, losartan, amlodipine with hold parameters as needed, PRN hydralazine. #8. Hyperlipidemia: Will continue patient on statin therapy. #9. Chronic Kidney Disease Stage IIIa: Admission BUN/Cr 14/1.21, GFR 57, baseline renal function primarily 1.2-1.4, 12/04/2024 BUN/Cr 14/1.18, GFR 59->12/05/24 BUN/Cr 13/1.14, GFR 61, repeat BMP in AM. #10. Hypothyroidism: Will continue patient on levothyroxine regimen. #11. DVT prophylaxis: Temporarily held Eliquis given positive stool guaiac, SCDs in interim. Consider resumption Eliquis 12/06/2024 if no further aggressivediarrhea and hemoglobin in AM stable. #12. CODE status: DNR-CCA with intubation. Charges/Coding Visit Charges Inpatient E&M: 79153 Subs Hosp L2 12/05/24 1207 <Electronically signed by Unique Salazar MD> Cosigner Signature (if applicable): CC: ~ Signed [facility] Work Phone: [phone] 575-908607-19-2025 Progress note [facility] Medical Records Department [address] [place] [address] Progress Note - Hospitalist 12/05/24 0706 MR#: [id number] Acct: [id number] Name: ASHIA PEREZ Rep #:[id number] : 1935 89 From: Unique Salazar MD PCP: Dr. Bernard Nugent MD Status:ADM I NO Location: [place] [address] Reason for Visit Chief Complaint: Persistent diarrhea and difficulty with urination Subjective Subjective Discussed plan of care with patient with removal of Puente catheter today and continued observation with continued Flomax and if unfortunately unable to urinate appropriately with urinary retention plan to replace Puente catheter. Patient does state he feels improved today and did have an appetite and did eat all of his breakfast. He denies any recurrent issues with diarrhea. He denies any nausea or emesis. Given his blind status plan of care had been made if Puente catheter needs replaced would likely need tertiary facility otherwise patient would plan home with home health to which she is amenable. Patient denies fevers, chills, abdominal pain, chest pain or dyspnea. Objective Data Objective Data Vital Signs: Vital Signs Temp Pulse Resp BP Pulse Ox O2 Del Method 98.3 F 61 18 147/77 H 99 Room Air 12/05/24 05:57 12/05/24 05:57 12/05/24 05:57 12/05/24 05:57 12/05/24 05:57 12/05/24 05:57 Oxygen Delivery Method Room Air Weight: 194 lb 4 oz Body Mass Index (BMI) 27.8 Intake & Output: Intake and Output for Last 24 Hours 12/03/24 12/04/24 12/05/24 23:59 23:59 23:59 Intake Total 1580 / 1580 Output Total 700 / 700 1900 / 1900 550 / 550 Balance -700 / -700 -320 / -320 -550 / -550 Lab / Micro Data 12/05/24 06:42 12/05/24 06:42 Physical Exam Narrative Physical Examination: General: Awake, alert, oriented x 3 and cooperative, laying in the medical surgical bed, fatigued. Skin: Normal color, normal turgor, no icterus, no cyanosis except for occasionalstage ecchymoses, abrasion, bilateral lower extremity venous stasis skin changes. HEENT: AT/NC, EOMI, PERRLA, chronic vision deficits with underlying macular degeneration, MMM. Lungs: Mildly diminished, greater bases, poor effort, no rales, ronchi or wheezing. Heart: Regular rate and rhythm; no gallop, rub audible. Abdomen: Soft, overweight, NTTP, ND, mildly hyperactive BS. Extremities: No cyanosis, no clubbing, pedal to mid cullen 1-2+ pitting edema, chronic with venous stasis skin changes. Neurological: Patient awake, alert, oriented as noted, cognitive function intact; pupils equally reactive to light and accommodation, cranial nerves grossly normal, moving all 4 extremities, strengthimproved from day prior however remains moderately to severely global decreased. Psychiatric: Affect appears more interactive, smiling, no acute evidence of depressive or anxiety feelings. 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 #1. Acute urinary retention suspected in large part secondary to acute colitis with concern for possible recurrent colonic malignancy as noted #2: Patient admitted to medical surgical floor, Puente catheter placed upon ED arrival, mild hematuria noted, no obvious evidence of UTI, initiated and continued on daily Flomax regimen. Patient hesitant to discharge to home with puente. 12/05/24 will attemptD/C; however, if needs replaced then may need higher level of discharge care with follow-up outpatient with urology. PT/OT/case management consulted fordischarge planning. #2. Persistent diarrhea with recent history of acute colitis status post previous right hemicolectomy for villous adenoma complicated by history of previous colon cancer with concern for possible recurrent malignancy: Patient with negative C. difficile and enteric pathogens, diarrhea resolved, willhave loperamide as needed, stool guaiac positive but given his significant diarrhea not entirely surprising, baseline hemoglobin ranging 11-12, admission 12/03/2024 hemoglobin 12.5, repeat hemoglobin 12/04/2024 noted to be 10.9, temporarily held Eliquis. 12/05/24 hemoglobin 11.2. Will need follow-up gastroenterology evaluation given concern for possible reoccurrence. Consider resumption Eliquis 12/06/2024 if no further aggressive diarrhea and hemoglobin in AM stable. #3. Hyponatremia, mild, likely residual component of GI losses: 12/05/2024 sodium 132, chloride 102,will judiciously hydrate, per discussion with nursing staff diarrhea significantly improved. Continue to trend CMP. #4. Chronic normocytic anemia: Admission hemoglobin 12.5, MCV 89.9 but dehydrated, baseline hemoglobin noted to vacillate however more recently starting in October 28 to range, 12/04/2024 hemoglobin 10.9, MCV 88.1-> 12/05/2024hemoglobin 11.2, MCV 88.8. Stable, as noted above temporarily held Eliquis given positive guaiac but again confounded by significant diarrhea #2. Consider resumption Eliquis 12/06/2024 if no further aggressive diarrhea and hemoglobin Tyesha stable. #5. Significant debility, compounded by underlying macular degeneration with vision impairment withadult failure to thrive: Patient living at home alone, significantly weakened and debilitated given#1, #2, will maintain on fall precautions, PT/OT consulted for possibly jail facility placement needs. #6. PAF: Patient with history of prior similar atrial fibrillation with junctional bradycardia, status post pacemaker placement, will continue patient home metoprolol regimen, temporally holding Eliquis as noted. Consider resumption Eliquis 12/06/2024 if no further aggressive diarrhea and hemoglobin Tyesha stable. #7. Hypertension: Continue home regimen including metoprolol, losartan, amlodipine with hold parameters as needed, PRN hydralazine. #8. Hyperlipidemia: Will continue patient on statin therapy. #9. Chronic Kidney Disease Stage IIIa: Admission BUN/Cr 14/1.21, GFR 57, baseline renal function primarily 1.2-1.4, 12/04/2024 BUN/Cr 14/1.18, GFR 59- >12/05/24 BUN/Cr 13/1.14, GFR 61, repeat BMP in AM. #10. Hypothyroidism: Will continue patient on levothyroxine regimen. #11. DVT prophylaxis: Temporarily held Eliquis given positive stool guaiac, SCDs in interim. Consider resumption Eliquis 12/06/2024 if no further aggressivediarrhea and hemoglobin in AM stable. #12. CODE status: DNR-CCA with intubation. Charges/Coding Visit Charges Inpatient E&M: 10532 Subs Hosp L2 12/05/24 1209 Cosigner Signature (if applicable): CC: ~ Signed [facility]07-18-2025 Progress note Author Unique Salazar [facility] Note Date/Time December 04, 2024 1:00 pm [facility] Medical Records Department [address] [place] [address] Progress Note - Hospitalist 12/04/24 0656 MR#: [id number] Acct: [id number] Name: ASHIA PEREZ Rep #:[id number] : 1935 89 From: Unique Salazar MD PCP: Dr. Bernard Nugent MD Status:ADM I NO Location: [place] [address] Reason for Visit Chief Complaint: Persistent diarrhea and difficulty with urination Subjective Subjective Patient with no acute events overnight per self and per nursing report. Patientnotes feeling weak and fatigued but does state the diarrhea has resolved since presentation. Patient remains on Bentyl as needed as well as loperamide as needed. Puente catheter remains in place with some mild blood-tinged urine. Discussed plan of care which included physical and Occupational Therapy assessment and he is amenable to this. Patient denies fevers, chills, nausea, emesis, abdominal pain, chest pain or dyspnea. Objective Data Objective Data Vital Signs: Vital Signs Temp Pulse Resp BP Pulse Ox O2 Del Method 97.5 F L 61 18 140/72 H 96 Room Air 12/04/24 03:17 12/04/24 03:17 12/04/24 03:17 12/04/24 03:17 12/04/24 03:17 12/04/24 03:17 Oxygen Delivery Method Room Air Weight: 194 lb 4 oz Body Mass Index (BMI) 27.8 Intake & Output: Intake and Output for Last 24 Hours 12/02/24 12/03/24 12/04/24 23:59 23:59 23:59 Output Total 700 / 700 300 / 300 Balance -700 / -700 -300 / -300 Lab / Micro Data 12/04/24 05:18 12/04/24 05:18 Labs: Laboratory Results - last 24 hr 12/03/24 12:50: WBC 10.2, RBC 4.05 L, Hgb 12.5 L, Hct 36.4 L, MCV 89.9, MCH 30.9, MCHC 34.3, RDW Std Deviation 45.0 H, RDW Coeff of Lisa 13.7, Plt Count 233,MPV 11.2, Immature Gran % (Auto) 0.500, Neut % (Auto) 79.2 H, Lymph % (Auto) 9.4L, Caswell % (Auto) 8.9, Eos % (Auto) 1.5, Baso % (Auto) 0.5, Absolute Neuts (auto)8.1 H, Absolute Lymphs (auto) 0.95, Nucleated RBC % 0, Sodium 135, Potassium 4.0, Chloride 99, Carbon Dioxide 25.1, Anion Gap 11, BUN 14, Creatinine 1.21 H, Estim Creat Clear Calc 46.69 L, Est GFR (MDRD) Non-Af 57 L, BUN/Creatinine Ratio11.7, Glucose 127 H, Calcium 8.9 12/03/24 14:20: Urine Color Yellow, Urine Clarity Clear, Urine pH 7.0, Ur Specific [place] 1.010, Urine Protein 30 H, Urine Glucose (UA) Normal, Urine Ketones Negative, Urine Occult Blood 10 H, Urine Nitrite Negative, Urine Bilirubin Negative, Urine Urobilinogen Normal, Ur Leukocyte Esterase Negative, Urine RBC 0 SEEN, Urine WBC 0 SEEN, Ur Squamous Epith Cells 0 SEEN, Urine Bacteria 0 SEEN, Urine Mucus 0 SEEN 12/04/24 05:18: WBC 10.6, RBC 3.45 L, Hgb 10.9 L, Hct 30.4 L, MCV 88.1, MCH 31.6, MCHC 35.9, RDW Std Deviation 43.5, RDW Coeff of Lisa 13.4, Plt Count 180, MPV 11.7, Sodium 134, Potassium 3.7, Chloride 101, Carbon Dioxide 24.5, Anion Gap 9, BUN 14, Creatinine 1.18, Estim Creat Clear Calc 47.45 L, Est GFR (MDRD) Non-Af 59 L, BUN/Creatinine Ratio 12.2, Glucose 126 H, Calcium 8.4 Physical Exam Narrative Physical Examination: General: Awake, alert, oriented x 3 and cooperative, laying in the medical surgical bed, fatigued. Skin: Normal color, normal turgor, no icterus, no cyanosis except for occasionalstage ecchymoses, abrasion, bilateral lower extremity venous stasis skin changes. HEENT: AT/NC, EOMI, PERRLA, chronic vision deficits with underlying macular degeneration, MMM. Lungs: Mildly diminished, greater bases, poor effort, no rales, ronchi or wheezing. Heart: Regular rate and rhythm; no gallop, rub audible. Abdomen: Soft, overweight, NTTP, ND, mildly hyperactive BS. Extremities: No cyanosis, no clubbing, pedal to mid cullen 1-2+ pitting edema, chronic with venous stasis skin changes. Neurological: Patient awake, alert, oriented as noted, cognitive function intact; pupils equally reactive to light and accommodation, cranial nerves grossly normal, moving all 4 extremities, strength moderately to severely globaldecreased. Psychiatric: Affect appears fatigued otherwise normal, no acute evidence of depressive or anxiety feelings. 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 #1. Acute urinary retention suspected in large part secondary to acute colitis with concern for possible recurrent colonic malignancy as noted #2: Patient admitted to medical surgical floor, Puente catheter placed upon ED arrival, mild hematuria noted, no obvious evidence of UTI, initiated and continued on daily Flomax regimen with follow-up outpatient with urology unless able to de-escalatecatheter given continued evaluation and treatment of #2 as noted. PT/OT/case management consulted for discharge planning. #2. Persistent diarrhea with recent history of acute colitis status post previous right hemicolectomy for villous adenoma complicated by history of previous colon cancer with concern for possible recurrent malignancy: Patient with negative C. difficile and enteric pathogens, diarrhea resolved, will have loperamide as needed, stool guaiac was positive but given his significant diarrhea not entirely surprising, baseline hemoglobin ranging 11-12, admission 12/03/2024 hemoglobin 12.5, repeat hemoglobin 12/04/2024 noted to be 10.9, will continue to closely monitor and temporarily hold Eliquis. Will need follow-up gastroenterology evaluation given concern for possible reoccurrence. #3. Significant debility, compounded by underlying macular degeneration with vision impairment with adult failure to thrive: Patient living at home alone, significantly weakened and debilitated given #1, #2, will maintain on fall precautions, PT/OT consulted for possibly jail facility placement needs. #4. PAF: Patient with history of prior similar atrial fibrillation with junctional bradycardia, status post pacemaker placement, will continue patient home metoprolol regimen, temporally holding Eliquis as noted. #5. Hypertension: Continue home regimen including metoprolol, losartan, amlodipine with hold parameters as needed, PRN hydralazine. #6. Hyperlipidemia: Will continue patient on statin therapy. #7. Chronic Kidney Disease Stage IIIa: Admission BUN/Cr 14/1.21, GFR 57, baseline renal function primarily 1.2-1.4, 12/04/2024 BUN/Cryan 14/.18, GFR 59, repeat BMP in AM. #8. Hypothyroidism: Will continue patient on levothyroxine regimen. #9. DVT prophylaxis: Temporarily hold Eliquis given positive stool guaiac, assure hemoglobin stable prior to resumption, SCDs in interim. #10. CODE status: DRN-PHILIP with intubation. Charges/Coding Visit Charges Inpatient E&M: 30362 Subs Hosp L3 12/04/24 1300 <Electronically signed by Unique Salazar MD> Cosigner Signature (if applicable): CC: ~ Signed [facility] Work Phone: [phone]) 630-535407-18-2025 Progress note [facility] Medical Records Department [address] [place] [address] Progress Note - Hospitalist 12/04/2456 MR#: [id number] Acct: [id number] Name: ASHIA PEREZ Rep #:[id number] : 1935 89 From: Unique Salazar MD PCP: Dr. Bernard Nugent MD Status:ADM I NO Location: [place] [address] Reason for Visit Chief Complaint: Persistent diarrhea and difficulty with urination Subjective Subjective Patient with no acute events overnight per self and per nursing report. Patientnotes feeling weak and fatigued but does state the diarrhea has resolved since presentation. Patient remains on Bentyl as needed as well as loperamide as needed. Puente catheter remains in place with some mild blood-tinged urine. Discussed plan of care which included physical and Occupational Therapy assessment and he is amenable to this. Patient denies fevers, chills, nausea, emesis, abdominal pain, chest pain or dyspnea. Objective Data Objective Data Vital Signs: Vital Signs Temp Pulse Resp BP Pulse Ox O2 Del Method 97.5 F L 61 18 140/72 H 96 Room Air 12/04/24 03:17 12/04/24 03:17 12/04/24 03:17 12/04/24 03:17 12/04/24 03:17 12/04/24 03:17 Oxygen Delivery Method Room Air Weight: 194 lb 4 oz Body Mass Index (BMI) 27.8 Intake & Output: Intake and Output for Last 24 Hours 12/02/24 12/03/24 12/04/24 23:59 23:59 23:59 Output Total 700 / 700 300 / 300 Balance -700 / -700 -300 / -300 Lab / Micro Data 12/04/24 05:18 12/04/24 05:18 Labs: Laboratory Results - last 24 hr 12/03/24 12:50: WBC 10.2, RBC 4.05 L, Hgb 12.5 L, Hct 36.4 L, MCV 89.9, MCH 30.9, MCHC 34.3, RDW Std Deviation 45.0 H, RDW Coeff of Lisa 13.7, Plt Count 233,MPV 11.2, Immature Gran % (Auto) 0.500, Neut % (Auto) 79.2 H, Lymph % (Auto) 9.4L, [place] % (Auto) 8.9, Eos % (Auto) 1.5, Baso % (Auto) 0.5, Absolute Neuts (auto)8.1 H, Absolute Lymphs (auto) 0.95, Nucleated RBC % 0, Sodium 135, Potassium 4.0, Chloride 99, Carbon Dioxide 25.1, Anion Gap 11, BUN 14, Creatinine 1.21 H, Estim Creat Clear Calc 46.69 L, Est GFR (MDRD) Non-Af 57 L, BUN/Creatinine Ratio11.7, Glucose 127 H, Calcium 8.9 12/03/24 14:20: Urine Color Yellow, Urine Clarity Clear, Urine pH 7.0, Ur Specific [place] 1.010, Urine Protein 30 H, Urine Glucose (UA) Normal, Urine Ketones Negative, Urine Occult Blood 10 H, UrineNitrite Negative, Urine Bilirubin Negative, Urine Urobilinogen Normal, Ur Leukocyte Esterase Negative, Urine RBC 0 SEEN, Urine WBC 0 SEEN, Ur Squamous Epith Cells 0 SEEN, Urine Bacteria 0 SEEN, UrineMucus 0 SEEN 12/04/24 05:18: WBC 10.6, RBC 3.45 L, Hgb 10.9 L, Hct 30.4 L, MCV 88.1, MCH 31.6, MCHC 35.9, RDW Std Deviation 43.5, RDW Coeff of Lisa 13.4, Plt Count 180, MPV 11.7, Sodium 134, Potassium 3.7, Chloride 101, Carbon Dioxide 24.5, Anion Gap 9, BUN 14, Creatinine 1.18, Estim Creat Clear Calc 47.45 L, Est GFR (MDRD) Non-Af 59 L, BUN/Creatinine Ratio 12.2, Glucose 126 H, Calcium 8.4 Physical Exam Narrative Physical Examination: General: Awake, alert, oriented x 3 and cooperative, laying in the medical surgical bed, fatigued. Skin: Normal color, normal turgor, no icterus, no cyanosis except for occasionalstage ecchymoses, abrasion, bilateral lower extremity venous stasis skin changes. HEENT: AT/NC, EOMI, PERRLA, chronic vision deficits with underlying macular degeneration, MMM. Lungs: Mildly diminished, greater bases, poor effort, no rales, ronchi or wheezing. Heart: Regular rate and rhythm; no gallop, rub audible. Abdomen: Soft, overweight, NTTP, ND, mildly hyperactive BS. Extremities: No cyanosis, no clubbing, pedal to mid cullen 1-2+ pitting edema, chronic with venous stasis skin changes. Neurological: Patient awake, alert, oriented as noted, cognitive function intact; pupils equally reactive to light and accommodation, cranial nerves grossly normal, moving all 4 extremities, strengthmoderately to severely globaldecreased. Psychiatric: Affect appears fatigued otherwise normal, no acute evidence of depressive or anxiety feelings. 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 #1. Acute urinary retention suspected in large part secondary to acute colitis with concern for possible recurrent colonic malignancy as noted #2: Patient admitted to medical surgical floor, Puente catheter placed upon ED arrival, mild hematuria noted, no obvious evidence of UTI, initiated and continued on daily Flomax regimen with follow-up outpatient with urology unless able to de-escalatecatheter given continued evaluation and treatment of #2 as noted. PT/OT/case management consulted for discharge planning. #2. Persistent diarrhea with recent history of acute colitis status post previous right hemicolectomy for villous adenoma complicated by history of previous colon cancer with concern for possible recurrent malignancy: Patient with negative C. difficile and enteric pathogens, diarrhea resolved, willhave loperamide as needed, stool guaiac was positive but given his significant diarrhea not entirely surprising, baseline hemoglobin ranging 11-12, admission 12/03/2024 hemoglobin 12.5, repeat hemoglobin 12/04/2024 noted to be 10.9, will continue to closely monitor and temporarily hold Eliquis. Will need follow-up gastroenterology evaluation given concern for possible reoccurrence. #3. Significant debility, compounded by underlying macular degeneration with vision impairment withadult failure to thrive: Patient living at home alone, significantly weakened and debilitated given#1, #2, will maintain on fall precautions, PT/OT consulted for possibly jail facility placement needs. #4. PAF: Patient with history of prior similar atrial fibrillation with junctional bradycardia, status post pacemaker placement, will continue patient home metoprolol regimen, temporally holding Eliquis as noted. #5. Hypertension: Continue home regimen including metoprolol, losartan, amlodipine with hold parameters as needed, PRN hydralazine. #6. Hyperlipidemia: Will continue patient on statin therapy. #7. Chronic Kidney Disease Stage IIIa: Admission BUN/Cr 14/1.21, GFR 57, baseline renal function primarily 1.2-1.4, 12/04/2024 BUN/Cryan 14/.18, GFR 59, repeat BMP in AM. #8. Hypothyroidism: Will continue patient on levothyroxine regimen. #9. DVT prophylaxis: Temporarily hold Eliquis given positive stool guaiac, assure hemoglobin stableprior to resumption, SCDs in interim. #10. CODE status: HARPREET-PHILIP with intubation. Charges/Coding Visit Charges Inpatient E&M: 41961 Subs Hosp L3 12/04/24 1300 Cosigner Signature (if applicable): CC: ~ Signed [facility]07-17-2025 History and physical note Author Ramos Boles [facility] Note Date/Time December 03, 2024 7:38 pm [facility] Medical Records Department [address] [place] [id number] H&P Exam - Hospitalist 12/03/24 1544 MR#: [id number] Acct: [id number] Name: ASHIA PEREZ Rep #:[id number] : 1935 89 From: Ramos llanes DO PCP: Dr. Bernard Nugent MD Status:ADM I NO Location: [place] [facility] [id number] HPI - General General Date of Admission: 12/03/24 Date of Service: 12/03/24 Chief Complaint: Persistent diarrhea and difficulty with urination HPI Narrative ASHIA PEREZ, is a 89 M who presented to [facility] ED on 12/03/2024 with persistent diarrhea and difficulty with urination. Patient was recently hospitalized here in late October for diarrhea and rectal pain and found to have acute colitis. Has history of right hemicolectomy for villous adenoma so there was concern for potential recurrence or new pathology. However, patient deferred colonoscopy while inpatient with plan to have it done in the outpatient setting. Stool PCR was negative during the hospitalization, and he was started on Bentyl and Imodium with mild improvement in symptoms. He saw GI in the office on 11/26 and noted that he continued to have diarrhea with some rectal pain. He had the right hemicolectomy done at a different institution andplan is to have colonoscopy done there in December. He presented today with persistent diarrhea and now difficulty with urination. In the ED vitals were stable and patient was nontoxic-appearing per ED physician. Labs were stable aswell. However, he was found to have a postvoid residual over 400 cc so Puente catheter was placed. 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 He lives in a small apartment and states he is able to get around to the apartment but has difficulty going anywhere else. Nursing staff attempted to show him how to clamp and unclamp the Puente but he could not see but he was doing. Given concern for safe discharge and some degree of ongoing weakness, hospitalist was contacted for admission. I saw the patient at bedside in the ED. Patient was sitting back comfortably in bed, conversing normally, in no acute distress. He denied any pain or discomfort currently. Denies any issues with Puente catheter. Will be admitted for further management. [facility] Medical History (Updated 12/03/24 @ 17:08 by Shauna Pham) Pacemaker Occult GI bleeding NSVT (nonsustained ventricular tachycardia) Aortic aneurysm without [...] Medications ?Medication ?Instructions ?Recorded ?Last Taken ?Type levothyroxine 25 mcg tablet 25 mcg PO DAILY 02/20/24 U nknown History apixaban 2.5 mg tablet 2.5 mg PO BID blood thinner #60 03/27/24 Unknown Rx tabs amlodipine 5 mg tablet 5 mg PO DAILY #90 tabs 03/31 Unknown Rx losartan 100 mg tablet 100 mg PO QDAY 03/31/24 Unkn own History metoprolol tartrate 25 mg tablet 25 mg PO BID #180 tab s 08/18/24 Unknown Rx dicyclomine 20 mg tablet 20 mg PO TID #30 tabs Unknown Rx loperamide 2 mg capsule 2 mg PO TID PRN Diarrhea 02/11 Unknown History pravastatin 40 mg tablet 40 mg PO QHS cholesterol 03/13 Unknown History Allergy/AdvReac Type Severity Reaction Status Date / Time codeine AdvReac Other Verified 12/03/24 12:22 lisinopril AdvReac Other Verified 12/03/24 12:22 Family History Father CVA (cerebral vascular accident) Mother Diabetes Sister Heart disease PPM Surgical History History of appendectomy History of cataract surgery History of tonsillectomy H/O hemicolectomy Hx of cholecystectomy Social History (Updated 11/25/24 @ 07:51 by Sanjana Gallegos) household members: none housing: [facility] Smoking Status: Former smoker Smokeless tobacco user: other alcohol intake: current alcohol intake frequency: holidays/special occasions only substance use type: does not use ROS Constitutional Constitutional: Reports weakness; Denies chills, fatigue or fever(s) Eyes Eyes: Denies change in vision Cardiovascular Cardiovascular: Denies chest pain Respiratory/Chest Respiratory/Chest: Denies shortness of breath at rest Gastrointestinal Gastrointestinal: Reports diarrhea; Denies abdominal pain, constipation, nausea or vomiting Genitourinary Genitourinary: Reports difficulty urinating; Denies dysuria Musculoskeletal Musculoskeletal: Denies arthralgias or myalgias Vital Signs Vital Signs Vital Signs: 12/03/24 12:20 12/03/24 15:10 Temperature 98 F Temperature Source Oral Pulse Rate 60 63 Respiratory Rate 18 18 Blood Pressure 164/71 H 147/84 H Blood Pressure Mean 102 105 Pulse Ox 97 91 Oxygen Delivery Method Room Air Room Air Weight Weight: 89.896 kg Body Mass Index (BMI) 28.4 Physical Exam Const alert, oriented x3, no apparent distress and average body habitus Constitutional Narrative: Elderly male, mentally sharp but very poor sight with left eye blindness and severe right eye macular degeneration, mildly fatigued appearing but otherwise sitting back comfortably in bed, conversing normally, in no acute distress. General Appearance: cooperative and comfortable HEENT normocephalic, head/scalp atraumatic, hearing grossly normal bilaterally, nasal mucous membranes and turbinates normal and moist oral mucous membranes Eyes PERRL, EOMs intact bilaterally and conjunctivae normal Neck full ROM Chest inspection of chest normal Resp normal respiratory effort, normal air movement, no use of accessory muscles and clear to auscultation bilaterally Cardio regular rate, regular rhythm, no murmurs and peripheral pulses 2+ throughout GI normal to inspection, nondistended, normoactive bowel sounds, soft to palpation,non-tender and non-distended no CVA tenderness Bladder / Kidney Exam: catheter in place and bladder normal to palpation Back/Spine normal ROM Extremity normal to inspection, full ROM and no pedal edema Skin no rashes or lesions noted Psych mental status grossly normal Results Lab / Micro Data 12/03/24 12:50 12/03/24 12:50 Labs: Laboratory Results - last 24 hr 12/03/24 12:50: WBC 10.2, RBC 4.05 L, Hgb 12.5 L, Hct 36.4 L, MCV 89.9, MCH 30.9, MCHC 34.3, RDW Std Deviation 45.0 H, RDW Coeff of Lisa 13.7, Plt Count 233,MPV 11.2, Immature Gran % (Auto) 0.500, Neut % (Auto) 79.2 H, Lymph % (Auto) 9.4L, [place] % (Auto) 8.9, Eos % (Auto) 1.5, Baso % (Auto) 0.5, Absolute Neuts (auto)8.1 H, Absolute Lymphs (auto) 0.95, Nucleated RBC % 0, Sodium 135, Potassium 4.0, Chloride 99, Carbon Dioxide 25.1, Anion Gap 11, BUN 14, Creatinine 1.21 H, Estim Creat Clear Calc 46.69 L, Est GFR (MDRD) Non-Af 57 L, BUN/Creatinine Ratio11.7, Glucose 127 H, Calcium 8.9 12/03/24 14:20: Urine Color Yellow, Urine Clarity Clear, Urine pH 7.0, Ur Specific [place] 1.010, Urine Protein 30 H, Urine Glucose (UA) Normal, Urine Ketones Negative, Urine Occult Blood 10 H, Urine Nitrite Negative, Urine Bilirubin Negative, Urine Urobilinogen Normal, Ur Leukocyte Esterase Negative, Urine RBC 0 SEEN, Urine WBC 0 SEEN, Ur Squamous Epith Cells 0 SEEN, Urine Bacteria 0 SEEN, Urine Mucus 0 SEEN Assessment & Plan Assessment/Plan (1) Acute urinary retention: PLAN: Plan Patient is an 89-year-old male who presented to [facility] ED on12/03/2024 with persistent diarrhea and difficulty with urination. 1. Acute urinary retention ? Admit under observation status to [facility]. No prior history of urinary retention. Had greater than 400 cc of postvoid residual volume so Puente catheter placed in the ED. Suspect acute colitis with concern for recurrent colonic malignancy as below is contributing to urinary retention. Patient livesat home alone and has very poor vision as below. Will need to discuss with casemanagement on resources available to help with Puente catheter management. No inpatient neurology needs, will need close outpatient follow-up. 2. Mild acute on chronic debility with significant vision impairment ? PT/OT/case management consulted. Patient lives at home alone as above in a small apartment. Feels slightly weaker than baseline but still with decent functional status. Appreciate therapy and case management recommendations. 3. Persistent diarrhea with recent acute colitis, history of right hemicolectomy for villous adenoma ? See HPI for further details. In short, CT scan in late October showed acute colitis. However, has history of right hemicolectomy for villous adenoma so there is concern for possible recurrent malignancy and patient has colonoscopy scheduled in December. Continue home Imodium and Bentyl for symptom management. Chronic medical conditions: ? 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 Continue home Eliquis, amlodipine, Lopressor, losartan and pravastatin. ? CKD stage IIIa: Creatinine 1.21 on admit, at baseline. ? Hypothyroidism: Continue home Synthroid. DVT prophylaxis: Not indicated, on Eliquis CODE STATUS: DNR-CCA, okay to intubate Expected disposition: TBD Total clinical time spent by myself addressing the patient's medical issues, reviewing all the data, and collaborating with patient's care team: 75 minutes. Charges/Coding Visit Charges Inpatient E&M: 74211 Init Hosp L3 12/03/241937 <Electronically signed by Ramos Boles DO> Cosigner Signature (if applicable): CC: Dr. Ramos Boles DO; Dr. Bernard Nugent MD~ Signed [facility] Work Phone: 1(612) 597-551207-17-2025 History and physical note [facility] Medical Records Department [address] [place] [address] H&P Exam - Hospitalist 12/03/24 1544 MR#: [id number] Acct: [id number] Name: ASHIA PEREZ Rep #:[id number] : 1935 89 From: Ramos llanes DO PCP: Dr. Bernard Nugent MD Status:ADM I NO Location: [facility] [id number] HPI - General General Date of Admission: 12/03/24 Date of Service: 12/03/24 Chief Complaint: Persistent diarrhea and difficulty with urination HPI Narrative ASHIA PEREZ, is a 89 M who presented to [facility] ED on 12/03/2024 with persistent diarrhea and difficulty with urination. Patient was recently hospitalized here in late October for diarrhea and rectal pain and found to have acute colitis. Has history of right hemicolectomy for villousadenoma so there was concern for potential recurrence or new pathology. However, patient deferred colonoscopy while inpatient with plan to have it done in the outpatient setting. Stool PCR was negative during the hospitalization, and he was started on Bentyl and Imodium with mild improvement in symptoms. He saw GI in the office on 11/26 and noted that he continued to have diarrhea with some rectalpain. He had the right hemicolectomy done at a different institution andplan is to have colonoscopydone there in December. He presented today with persistent diarrhea and now difficulty with urination. In the ED vitals were stable and patient was nontoxic-appearing per ED physician. Labs were stableaswell. However, he was found to have a postvoid residual over 400 cc so Puente catheter was placed. 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 He lives in a small apartment and states he is able to get around to the apartment but has difficulty going anywhere else. Nursing staff attempted to show him how to clamp and unclamp the Puente but he could not see but he was doing. Given concern for safe discharge and some degree of ongoing weakness, hospitalist was contacted for admission. I saw the patient at bedside in the ED. Patient was sitting back comfortably in bed, conversing normally, in no acute distress. He denied any pain or discomfort currently. Denies any issues with Puente catheter. Will be admitted for further management. [facility] Medical History (Updated 12/03/24 @ 17:08 by Shauna Pham) Pacemaker Occult GI bleeding NSVT (nonsustained ventricular tachycardia) Aortic aneurysm without [...] Medications ?Medication ?Instructions ?Recorded ?Last Taken ?Type levothyroxine 25 mcg tablet 25 mcg PO DAILY 02/20/24 U nknown History apixaban 2.5 mg tablet 2.5 mg PO BID blood thinner #60 03/27/24 Unknown Rx tabs amlodipine 5 mg tablet 5 mg PO DAILY #90 tabs 03/31 Unknown Rx losartan 100 mg tablet 100 mg PO QDAY 03/31/24 Unkn own History metoprolol tartrate 25 mg tablet 25 mg PO BID #180 tab s 08/18/24 Unknown Rx dicyclomine 20 mg tablet 20 mg PO TID #30 tabs Unknown Rx loperamide 2 mg capsule 2 mg PO TID PRN Diarrhea 02/11 Unknown History pravastatin 40 mg tablet 40 mg PO QHS cholesterol 03/13 Unknown History Allergy/AdvReac Type Severity Reaction Status Date / Time codeine AdvReac Other Verified 12/03/24 12:22 lisinopril AdvReac Other Verified 12/03/24 12:22 Family History Father CVA (cerebral vascular accident) Mother Diabetes Sister Heart disease PPM Surgical History History of appendectomy History of cataract surgery History of tonsillectomy H/O hemicolectomy Hx of cholecystectomy Social History (Updated 11/25/24 @ 07:51 by Sanjana Gallegos) household members: none housing: [facility] Smoking Status: Former smoker Smokeless tobacco user: other alcohol intake: current alcohol intake frequency: holidays/special occasions only substance use type: does not use ROS Constitutional Constitutional: Reports weakness; Denies chills, fatigue or fever(s) Eyes Eyes: Denies change in vision Cardiovascular Cardiovascular: Denies chest pain Respiratory/Chest Respiratory/Chest: Denies shortness of breath at rest Gastrointestinal Gastrointestinal: Reports diarrhea; Denies abdominal pain, constipation, nausea or vomiting Genitourinary Genitourinary: Reports difficulty urinating; Denies dysuria Musculoskeletal Musculoskeletal: Denies arthralgias or myalgias Vital Signs Vital Signs Vital Signs: 12/03/24 12:20 12/03/24 15:10 Temperature 98 F Temperature Source Oral Pulse Rate 60 63 Respiratory Rate 18 18 Blood Pressure 164/71 H 147/84 H Blood Pressure Mean 102 105 Pulse Ox 97 91 Oxygen Delivery Method Room Air Room Air Weight Weight: 89.896 kg Body Mass Index (BMI) 28.4 Physical Exam Const alert, oriented x3, no apparent distress and average body habitus Constitutional Narrative: Elderly male, mentally sharp but very poor sight with left eye blindness and severe right eye macular degeneration, mildly fatigued appearing but otherwise sitting back comfortably in bed, conversingnormally, in no acute distress. General Appearance: cooperative and comfortable HEENT normocephalic, head/scalp atraumatic, hearing grossly normal bilaterally, nasal mucous membranes and turbinates normal and moist oral mucous membranes Eyes PERRL, EOMs intact bilaterally and conjunctivae normal Neck full ROM Chest inspection of chest normal Resp normal respiratory effort, normal air movement, no use of accessory muscles and clear to auscultation bilaterally Cardio regular rate, regular rhythm, no murmurs and peripheral pulses 2+ throughout GI normal to inspection, nondistended, normoactive bowel sounds, soft to palpation,non-tender and non-distended no CVA tenderness Bladder / Kidney Exam: catheter in place and bladder normal to palpation Back/Spine normal ROM Extremity normal to inspection, full ROM and no pedal edema Skin no rashes or lesions noted Psych mental status grossly normal Results Lab / Micro Data 12/03/24 12:50 12/03/24 12:50 Labs: Laboratory Results - last 24 hr 12/03/24 12:50: WBC 10.2, RBC 4.05 L, Hgb 12.5 L, Hct 36.4 L, MCV 89.9, MCH 30.9, MCHC 34.3, RDW Std Deviation 45.0 H, RDW Coeff of Lisa 13.7, Plt Count 233,MPV 11.2, Immature Gran % (Auto) 0.500, Neut % (Auto) 79.2 H, Lymph % (Auto) 9.4L, [place] % (Auto) 8.9, Eos % (Auto) 1.5, Baso % (Auto) 0.5, Absolute Neuts (auto)8.1 H, Absolute Lymphs (auto) 0.95, Nucleated RBC % 0, Sodium 135, Potassium 4.0, Chloride 99, Carbon Dioxide 25.1, Anion Gap 11, BUN 14, Creatinine 1.21 H, Estim Creat Clear Calc 46.69 L, Est GFR (MDRD) Non-Af 57 L, BUN/Creatinine Ratio11.7, Glucose 127 H, Calcium 8.9 12/03/24 14:20: Urine Color Yellow, Urine Clarity Clear, Urine pH 7.0, Ur Specific [place] 1.010, Urine Protein 30 H, Urine Glucose (UA) Normal, Urine Ketones Negative, Urine Occult Blood 10 H, UrineNitrite Negative, Urine Bilirubin Negative, Urine Urobilinogen Normal, Ur Leukocyte Esterase Negative, Urine RBC 0 SEEN, Urine WBC 0 SEEN, Ur Squamous Epith Cells 0 SEEN, Urine Bacteria 0 SEEN, UrineMucus 0 SEEN Assessment & Plan Assessment/Plan (1) Acute urinary retention: PLAN: Plan Patient is an 89-year-old male who presented to [facility] ED on12/03/2024 with persistent diarrhea and difficulty with urination. 1. Acute urinary retention ? Admit under observation status to [facility]. No prior history of urinary retention. Had greater than 400 cc of postvoid residual volume so Puente catheter placed in the ED. Suspect acute colitis with concern for recurrent colonic malignancy as below is contributing to urinary retention. Patient livesat home alone and has very poor vision as below. Will need to discuss with casemanagement on resources available to help with Puente catheter management. No inpatient neurology needs, will need close outpatient follow-up. 2. Mild acute on chronic debility with significant vision impairment ? PT/OT/case management consulted. Patient lives at home alone as above in a small apartment. Feelsslightly weaker than baseline but still with decent functional status. Appreciate therapy and case management recommendations. 3. Persistent diarrhea with recent acute colitis, history of right hemicolectomy for villous adenoma ? See HPI for further details. In short, CT scan in late October showed acute colitis. However, has history of right hemicolectomy for villous adenoma so there is concern for possible recurrent malignancy and patient has colonoscopy scheduled in December. Continue home Imodium and Bentyl for symptom management. Chronic medical conditions: ? 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 Continue home Eliquis, amlodipine, Lopressor, losartan and pravastatin. ? CKD stage IIIa: Creatinine 1.21 on admit, at baseline. ? Hypothyroidism: Continue home Synthroid. DVT prophylaxis: Not indicated, on Eliquis CODE STATUS: DNR-CCA, okay to intubate Expected disposition: TBD Total clinical time spent by myself addressing the patient's medical issues, reviewing all the data, and collaborating with patient's care team: 75 minutes. Charges/Coding Visit Charges Inpatient E&M: 06399 Init Hosp L3 12/03/24 1938 Cosigner Signature (if applicable): CC: Dr. Ramos Boles, DO; Dr. Bernard Nugent MD~ Signed [facility]06-28-2025 Discharge summary Author Ankit Last [facility] Note Date/Time November 14, 2024 10:2 0am [facility] Medical Records Department [address] [place] [address] Instructions for Home/Discharge Instructions 11/14/24 1015 MR#: [id number] Acct: [id number] Name: ASHIA PEREZ Rep #:[id number] : 1935 89 From: Ankit Last DO [...] Instructions / Restrictions: You may obtain loperamide [id number]-[id number] to take as needed for diarrhea Discharge [...] Bernard Nugent MD ~ Signed [facility] Work Phone: 1(872) 579-818806-28-2025 Discharge summary [facility] Medical Records Department [address] [place] [address] Instructions for Home/Discharge Instructions 11/14/24 1015 MR#: [id number] Acct: [id number] Name: ASHIA PEREZ Rep #:[id number] : 1935 89 From: Ankit Last DO [...] hematochezia (blood in stool) Attending Provider: Ankit aLst Primary Care Provider: Bernard Nugent [employer] Providers: Unique Salazar Instructions Additional Instructions / Restrictions: You may obtain loperamide [id number]-[id number] to take as needed for diarrhea Discharge [...] can be placed): Home, Self Care 11/14/24 1020Ankit Last DO CC: Dr. Unique Salazar MD; Dr. Bernard Nugent MD ~ Signed [facility]06[facility]28-[facility] Progress note Author Ankit Last [facility] Note Date/Time November 13, 2024 5:10 pm [facility] Medical Records Department [address] [place] [address] Progress Note - Hospitalist 11/13/24 1705 MR#: [id number] Acct: [id number] Name: ASHIA PEREZ Rep #:[id number] : 1935 89 From: Ankit Last DO PCP: Dr. Bernard Nugent MD Status:ADM I N Location: [address] Reason for Visit Reason for Visit: Diagnoses [...] Final 11/11/24 18:56 Stool Stool Occult Blood (HCERRY) - Final Occult Blood Positive Physical Exam [...] 35 minutes Charges/Coding Visit Charges Inpatient E&M: 17499 Subs Hosp L2 11/13/24 1710 <Electronically signed by Ankit Last DO> Cosigner Signature (if applicable): CC: ~ Signed [facility] Work Phone: 1(624) 465-740006-27-2025 Progress note [facility] Medical Records Department [address] [place] [address] Progress Note - Hospitalist 11/13/24 1705 MR#: [id number] Acct: [id number] Name: ASHIA PEREZ Rep #:[id number] : 1935 89 From: Ankit Last DO PCP: Dr. Bernard Nugent MD Status:ADM I N Location: [place] [address] Reason for Visit Reason for Visit: Diagnoses [...] 35 minutes Charges/Coding Visit Charges Inpatient E&M: 59527 Subs Hosp L2 11/13/24 1710 Cosigner Signature (if applicable): CC: ~ Signed [facility]06-26-2025 Progress note Author Ankit Last [facility] Note Date/Time November 12, 2024 4:33 pm [facility] Medical Records Department [address] [place] [address] Progress Note - Hospitalist 11/12/24 1626 MR#: [id number] Acct: [id number] Name: ASHIA PEREZ Rep #:[id number] : 1935 89 From: Ankit Last DO PCP: Dr. Bernard Nugent MD Status:ADM I N Location: [place] [address] Reason for Visit Reason for Visit: Diagnoses [...] (Auto) 81.6 H, Lymph % (Auto) 8.3L, [place] % (Auto) 8.4, Eos % (Auto) 0.8, [...] Clarity Clear, Urine pH 6.0, Ur Specific [place] 1.020, Urine Protein 30 H, Urine Glucose [...] (Auto) 75.1 H, Lymph % (Auto) 12.1 L,[place] % (Auto) 10.3 H, Eos % (Auto) [...] colitis. 2. Moderate pancolonic diverticulosis. Reading Location: [id number] Physical Exam Const alert, oriented x3 and [...] 35 minutes Charges/Coding Visit Charges Inpatient E&M: 41691 Subs Hosp L2 11/12/24 1633 <Electronically signed by Ankit Last DO> Cosigner Signature (if applicable): CC: ~ Signed [facility] Work Phone: 1(479) 261-689806-26-2025 Progress note [facility] Medical Records Department [address] [place] [address] Progress Note - Hospitalist 11/12/24 1626 MR#: [id number] Acct: [id number] Name: ASHIA PEREZ Rep #:[id number] : 1935 89 From: Ankit Last DO PCP: Dr. Bernard Nugent MD Status:ADM I N Location: [place] [address] Reason for Visit Reason for Visit: Diagnoses [...] (Auto) 81.6 H, Lymph % (Auto) 8.3L, [place] % (Auto) 8.4, Eos % (Auto) 0.8, [...] Clarity Clear, Urine pH 6.0, Ur Specific [place] 1.020, Urine Protein 30 H, Urine Glucose (UA) Normal, Urine Ketones Negative, Urine Occult Blood 25 H, Urine Nitrite Negative, Urine Bilirubin Negative, Urine Urobilinogen 1 H, Ur Leukocyte Esterase 25 H, Urine RBC 0-5 SEEN, Urine WBC 0-5 SEEN, Ur Squamous Epith Cells 0 SEEN, Urine [id number], Urine Mucus 0 SEEN 11/11/24 23:52: POC Glucose 183 H 11/12/24 06:20: WBC 8.4, RBC 3.54 L, Hgb 11.0 L, Hct 31.3 L, MCV 88.4, MCH 31.1,MCHC 35.1, RDW Std Deviation 42.7, RDW Coeff of Lisa 13.2, Plt Count 174, MPV 11.2, Immature Gran % (Auto) 0.400, Neut %(Auto) 75.1 H, Lymph % (Auto) 12.1 L,[place] % (Auto) 10.3 H, Eos % (Auto) [...] colitis. 2. Moderate pancolonic diverticulosis. Reading Location: [id number] Physical Exam Const alert, oriented x3 and [...] 35 minutes Charges/Coding Visit Charges Inpatient E&M: 53615 Subs Hosp L2 11/12/24 1633 Cosigner Signature (if applicable): CC: ~ Signed [facility]06-26-2025 Discharge summary Author Bhavya Panda [facility] Note Date/Time November 12, 2024 2:27 pm [facility] Medical Records Department [address] [place] [address] Emergency Department Summary 11/11/24 MR#: [id number] Acct: [id number] Name: ASHIA PEREZ Rep #:[id number] : 1935 89 From: Bhavya Owens PCP: Dr. Bernard Nugent MD Status:ADM I N Location: [place] [address] HPI HPI - GI History of Present [...] so he came to the ER instead [facility] Medical History NSVT (nonsustained ventricular tachycardia) [...] 81.6 H Lymph % (Auto) 8.3 L [place] % (Auto) 8.4 Eos % (Auto) 0.8 [...] Clarity Clear Urine pH 6.0 Ur Specific [place] 1.020 Urine Protein 30 H Urine Glucose [...] colitis. 2. Moderate pancolonic diverticulosis. Reading Location: [id number] Management Discussion w/another healthcare provider: Hospitalist Discharge Plan Dx/Rx/DC Orders Clinical Impression: Colitis, Occult GI bleeding, Current use of manager intermediate anticoagulation Disposition Disposition: Acute Care Hospital [facility] Discharge Date/Time: 11/11/24 22:55 What to do if you have Problems For any increased pain, shortness of breath, bleeding, nausea or vomiting, chestpain, or any unexpected problems, contact your Primary Care Provider. Call [facility] ([phone]) or report to the closest Emergency Room. Call 911 if necessary. 11/12/24 1427 <Electronically signed by Bhavya Panda DO> Cosigner Signature (if applicable): CC: Dr. Bernard Nugent MD ~ Signed [facility] Work Phone: 1(970) 330-341806-26-2025 Discharge summary [facility] Medical Records Department [address] [place] [address] Emergency Department Summary 11/11/24 MR#: [id number] Acct: [id number] Name: ASHIA PEREZ Rep #:[id number] : 1935 89 From: Bhavya Owens PCP: Dr. Bernard Nugent MD Status:ADM I N Location: [place] [address] HPI HPI - GI History of Present [...] so he came to the ER instead [facility] Medical History NSVT (nonsustained ventricular tachycardia) [...] 81.6 H Lymph % (Auto) 8.3 L [place] % (Auto) 8.4 Eos % (Auto) 0.8 [...] Clarity Clear Urine pH 6.0 Ur Specific [place] 1.020 Urine Protein 30 H Urine Glucose [...] colitis. 2. Moderate pancolonic diverticulosis. Reading Location: [id number] Management Discussion w/another healthcare provider: Hospitalist Discharge Plan Dx/Rx/DC Orders Clinical Impression: Colitis, Occult GI bleeding, Current use of correction anticoagulation Disposition Disposition: Acute Care Hospital [facility] Discharge Date/Time: 11/11/24 22:55 What to do if you have Problems For any increased pain, shortness of breath, bleeding, nausea or vomiting, chestpain, or any unexpected problems, contact your Primary Care Provider. Call [facility] ([phone]) or report tothe closest Emergency Room. Call 911 if necessary. 11/12/24 142 Cosigner Signature (if applicable): CC: Dr. Bernard Nugent MD ~ Signed [facility]06-26-2025 History and physical note Author Unique Salazar [facility] Note Date/Time November 11, 2024 10:5 3pm [facility] Medical Records Department [address] [place] [address] H&P Exam - Hospitalist 11/11/242156 MR#: [id number] Acct: [id number] Name: ASHIA PEREZ Rep #:[id number] : 1935 89 From: Unique Salazar MD PCP: Dr. Bernard Nugent MD Status:ADM I N Location: [place] [address] HPI - General General Date of Admission: 11/11/24 Date of Service: 11/11/24 Chief Complaint: Diarrhea. HPI Narrative The patient is an 89 y/o M w/ PMHx: Chronic total hyperbilirubinemia, Chronic normocytic anemia, CKD stage III unclear subtype per GFR trending, HTN, HLD, GERD, Hypothyroidism, Diabetes mellitus type II, PAF, CHEO, Hx NSVT status post pacemaker placement who presents to the [facility] ED on 11/11/2024 with history of [...] and Flagyl 5 mg IV x 1. [facility] Medical History NSVT (nonsustained ventricular tachycardia) [...] (Auto) 81.6 H, Lymph % (Auto) 8.3L, [place] % (Auto) 8.4, Eos % (Auto) 0.8, [...] Clarity Clear, Urine pH 6.0, Ur Specific [place] 1.020, Urine Protein 30 H, Urine Glucose [...] colitis. 2. Moderate pancolonic diverticulosis. Reading Location: [id number] Assessment & Plan Assessment/Plan (1) Colitis: PLAN: Plan The patient is an 89 y/o M w/ PMHx: Chronic total hyperbilirubinemia, Chronic normocytic anemia, CKD stage III unclear subtype per GFR trending, HTN, HLD, GERD, Hypothyroidism, Diabetes mellitus type II, PAF, CHEO, Hx NSVT status post pacemaker placement who presents to the [facility] ED on 11/11/2024 with history of [...] BMP in AM, per record following with pasta press operator Dr. Shaila Haq. #5. Chronic normocytic anemia: Admission hemoglobin 12.8, MCV 90.2, baseline hemoglobin vacillates from mid 12-13 range primarily, continue to trend #6. Chronic total hyperbilirubinemia, unclear specific etiology: Admission CMP with total bilirubin 2.12, AST/LT 24/19, alk phos 142, stable compared [...] 16 minutes. Charges/Coding Visit Charges Inpatient E&M: 89227 Init Hosp L3 Procedures Hospitalists Procedures: 33727 Advncd Care Plan 30 Min 11/11/242252 <Electronically signed by Unique Salazar MD> Cosigner Signature (if applicable): CC: Dr. Unique Salazar MD; Dr. Bernard Nugent MD~ Signed [facility] Work Phone: 1(524) 823-800306-26-2025 Evaluation note* Diagnosis Onset Date Resolution Status Admit Date Colitis acute November 11 10:26pm Occult GI bleeding acute October 192024 10:26pm [facility] Work Phone: 1(461) 311-317806-26-2025 Evaluation note* Diagnosis Onset Date Resolution Status Admit Date Occult GI bleeding inactive October 192024 10:26pm Colitis deleted November 11 10:26pm [facility] Work Phone: 1(385) 337-213406-26-2025 Evaluation note* Diagnosis Onset Date Resolution Status Admit Date Occult GI bleeding inactive October 192024 10:26pm Colitis deleted November 11 10:26pm Abnormal findings on imaging test acute November 26, 2024 11:02am Rectal pain acute November 26 11:02am Diarrhea resolved November 26 11:02am Acute urinary retention acute J sharon 2024 3:45pm Chronic diarrhea chronic November 3:45pm [facility] Work Phone: 1(238) 452-606806-26-2025 Evaluation note* Diagnosis Onset Date Resolution Status Admit Date Occult GI bleeding inactive October 192024 10:26pm Colitis deleted November 11 10:26pm Abnormal findings on imaging test acute November 26, 2024 11:02am Rectal pain acute November 26 11:02am Diarrhea resolved November 26 11:02am Acute urinary retention acute J sharon 2024 8:32am Chronic diarrhea chronic November 8:32am [facility] Work Phone: 1(843) 302-374306-25-2025 History and physical note [facility] Medical Records Department [address] [place] [address] H&P Exam - Hospitalist 11/11/242156 MR#: [id number] Acct: [id number] Name: ASHIA PEREZ Rep #:[id number] : 1935 89 From: Unique Salazar MD PCP: Dr. Bernard Nugent MD Status:ADM I N Location: [place] [address] HPI - General General Date of Admission: 11/11/24 Date of Service: 11/11/24 Chief Complaint: Diarrhea. HPI Narrative The patient is an 89 y/o M w/ PMHx: Chronic total hyperbilirubinemia, Chronic normocytic anemia, CKD stage III unclear subtype per GFR trending, HTN, HLD, GERD, Hypothyroidism, Diabetes mellitus typeII, PAF, CHEO, Hx NSVT status post pacemaker placement who presents to the [facility] ED on 11/11/2024 with history of [...] and Flagyl 5 mg IV x 1. [facility] Medical History NSVT (nonsustained ventricular tachycardia) Aortic [...] (Auto) 81.6 H, Lymph % (Auto) 8.3L, [place] % (Auto) 8.4, Eos % (Auto) 0.8, [...] Clarity Clear, Urine pH 6.0, Ur Specific [place] 1.020, Urine Protein 30H, Urine Glucose (UA) [...] colitis. 2. Moderate pancolonic diverticulosis. Reading Location: [id number] Assessment & Plan Assessment/Plan (1) Colitis: PLAN: Plan The patient is an 89 y/o M w/ PMHx: Chronic total hyperbilirubinemia, Chronic normocytic anemia, CKD stage III unclear subtype per GFR trending, HTN, HLD, GERD, Hypothyroidism, Diabetes mellitus typeII, PAF, CHEO, Hx NSVT status post pacemaker placement who presents to the [facility] ED on 11/11/2024 with history of [...] BMP in AM, per record following with pasta press operator Dr. Shaila Haq. #5. Chronic normocytic anemia: [...] 16 minutes. Charges/Coding Visit Charges Inpatient E&M: 03643 Init Hosp L3 Procedures Hospitalists Procedures: 54630 Advncd Care Plan 30 Min 11/11/24 9599 Cosigner Signature (if applicable): CC: Dr. Unique Salazar MD; Dr. Bernard Nugent MD~ Signed [facility]06-25-2025 Radiology Diagnostic study note [facility] Imaging Services [address] [place], [place] [address] Abdomen/Pelvis W IV Cont ONLY MR#: [id number] Acct: [id number] Name: ASHIA PEREZ Rep #: [id number] : 1935 M 89 From: Sherri Real MD PCP: Dr. Bernard Nugent MD Status: REG E R Study:Abdomen/Pelvis W IV Cont ONLY Date of E xam: 11/11/24 Exam# [id number] Ordering Dr: Jean Paul Panda DO PROCEDURE: [...] colitis. 2. Moderate pancolonic diverticulosis. Reading Location: [id number] CC: Dr. Bhavya Panda DO; Dr. Bernard Nugent MD ~ Deep Submergence Vehicle Crewmember: Signed [facility]06-13-2025 Radiology Diagnostic study note [facility] Imaging Services [address] [place] [address] Abdomen Single View MR#: [id number] Acct: [id number] Name: ASHIA PEREZ Rep #: [id number] : 1935 M 89 From: Magalis Judge MD PCP: Dr. Bernard Nugent MD Status: REG C YAEL Study:Abdomen Single View Date of Exam: 10/30/24 Exam# [id number] Ordering Dr: Bernard Nugent MD EXAM: XR Abdomen, 1 View CLINICAL INDICATION: DIARRHEA TECHNIQUE: Frontal supine view of the abdomen/pelvis. COMPARISON: No relevant prior studies available. FINDINGS: GASTROINTESTINAL TRACT: Fecal retention in the colon consistent with constipation. No dilation. BONES/JOINTS: Unremarkable. No acute fracture. RAD/Abdomen Single View IMPRESSION: Fecal retention in the colon consistent with constipation. Reading Location: [facility] CC: Dr. Bernard Nugent MD ~ Deep Submergence Vehicle Crewmember: Signed [facility]11-12-2024 Evaluation note* Diagnosis Onset Date Resolution Status Admit Date Aortic aneurysm without rupture acute March 31 11:10am NSVT (nonsustained ventricul ar tachycardia) acute March 31 11:10am Status post cardiac pacemake r procedure acute March 31 11:10am Essential (primary) hypertension chronic March 31 11:10am Longstanding persistent atri al fibrillation chronic March 31 11:10am [facility] Work Phone: 1([phone]) 904-778811-05-2023 Discharge summary Author Raghu Acosta [facility] March 24, 2023 12:17pm Note Date/Time March 24, 2023 1 0:19am [facility] Medical Records Department [address] [place] [address] Emergency Department Summary 03/24/23 MR#: [id number] Acct: [id number] Name: ASHIA PEREZ Rep #:[id number] : 1935 87 From: Raghu Acosta DO [...] He is on glimepiride. No recent changes. [facility] Medical History Atrial fibrillation Chronic renal [...] (1,000 unit) capsule 25 mcg PO DAILY [id number]/07/22 [History Last Taken Unknown] tamsulosin 0.4 mg [...] 82.0 H Lymph % (Auto) 9.1 L [place] % (Auto) 6.9 Eos % (Auto) 1.0 [...] Clarity Clear Urine pH 7.0 Ur Specific [place] 1.010 Urine Protein 15 H Urine Glucose [...] your Primary Care Provider. Call [facility] ([phone]) or report to the closest Emergency Room. Call 911 if necessary. 03/24/23 1217 <Electronically signed by Raghu Acosta DO> Cosigner Signature (if applicable): CC: Dr. Bernard Nugent MD ~ Signed [facility] Work Phone: [phone]) 251-212005-09-[address] Tobias [facility] September 25, 2022 8:04am Note Date/Time September 25, 2022 8:04am [facility] Medical Records Department [address] [place] [address] Instructions for Home/Discharge Instructions 09/25/22 0803 MR#: [id number] Acct: [id number] Name: ASHIA PEREZ Rep #:[id number] : 1935 86 From: Rodolfo Tobias MD [...] Bernard Nugent MD ~ Signed [facility] Work Phone: [phone]) 448-133905-09-[address] Tobias [facility] September 25, 2022 8:01am Note Date/Time September 25, 2022 8:01[facility] Medical Records Department [address] [place] [address] Progress Note - Cardiology 09/25/22 0800 MR#: [id number] Acct: [id number] Name: ASHIA PEREZ Rep #:[id number] : 1935 86 From: Rodolfo Tobias MD PCP: Dr. Bernard Nugent MD Status:REG S DC Location: [place] [address] Subjective Subjective Patient seen and evaluated. Appears [...] Patient can be discharged for outpatient follow-up. 09/25/22800 <Electronically signed by Rodolfo Tobias MD> Cosigner Signature (if applicable): CC: ~ Signed [facility] Work Phone: Evaluation note* Diagnosis Onset Date Resolution Status Closed head injury acute Fall acute Hypokalemia acute Hyponatremia acute Syncope and collapse acute Weakness acute [facility] Work Phone: Evaluation note* Diagnosis Onset Date Resolution Status Hyponatremia acute Weakness acute Hypokalemia resolved [facility] Work Phone: evaluation note* Diagnosis Onset Date Resolution Status Hyponatremia acute Weakness acute Hypokalemia resolved Essential (primary) hypertension chronic Hyperlipidemia chronic Longstanding persistent atrial fibrillation chronic [facility] Work Phone: evaluation note* Diagnosis Onset Date Resolution Status Hyponatremia acute Weakness acute Hypokalemia resolved Essential (primary) hypertension chronic Hyperlipidemia chronic Longstanding persistent atrial fibrillation chronic Bradycardia acute History of acute heart failure acute Junctional rhythm acute SOB (shortness of breath) on exertion acute Symptomatic bradycardia acut e Chronic renal insufficiency, stage III (moderate) chronic [facility] Work Phone: evaluation note* Diagnosis Onset Date Resolution Status Hyponatremia [...] Longstanding persistent atrial fibrillation chronic [facility] Work Phone: Evaluation note* Diagnosis Onset Date Resolution Status Hyponatremia acute Weakness acute Hypokalemia resolved Bradycardia resolved Junctional rhythm resolved SOB (shortness of breath) on exertion resolved [facility] Work Phone: Evaluation note* Diagnosis Onset Date Resolution Status Bradycardia resolved Junctional rhythm resolved SOB (shortness of breath) on exertion resolved Breast mass, left acute [facility] Work Phone: Evaluation note* Diagnosis Onset Date Resolution Status Essential (primary) hypertension chronic Longstanding persistent atrial fibrillation [facility] Work Phone: Evaluation note* Diagnosis Onset Date Resolution Status Essential (primary) hypertension chronic Longstanding persistent atrial fibrillation chronic Essential (primary) hypertension chronic Longstanding persistent atrial fibrillation chronic Status post cardiac pacemaker procedure acute Longstanding persistent atrial fibrillation [facility] Work Phone: Evaluation note* Diagnosis Onset [...] (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 [facility] Work Phone: Evaluation note* Diagnosis Onset [...] (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 [facility] Work Phone: Evaluation note* Diagnosis Onset [...] (primary) hypertension chronic Longstanding persistent atrial fibrillation [facility] Work Phone: Evaluation note* Diagnosis Onset Date Resolution Status Essential (primary) hypertension chronic Longstanding persistent atrial fibrillation chronic Bradycardia acute 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 Longstanding persistent atrial fibrillation [facility] Work Phone: Evaluation noteNo assessment information available [facility] Work Phone: Evaluation note* Diagnosis Onset Date Resolution Status Aortic aneurysm without rupture acute NSVT (nonsustained ventricular tachycardia) acute Essential (primary) hypertension chronic Longstanding persistent atrial fibrillation chronic [facility] Work Phone: Evaluation note* Diagnosis Onset Date Resolution Status Admit Date Colitis acute November 11 10:26pm [facility] Work Phone: History and physical note Author Unique Salazar [facility] Note Date/Time November 11, 2024 10:5 3pm [facility] Medical Records Department [address] [place] [address] H&P Exam - Hospitalist 11/11/242156 MR#: [id number] Acct: [id number] Name: ASHIA PEREZ Rep #:[id number] : 1935 89 From: Unique Salazar MD PCP: Dr. Bernard Nugent MD Status:ADM I N Location: [facility] HP056-5 HPI - General General Date of Admission: 11/11/24 Date of Service: 11/11/24 Chief Complaint: Diarrhea. HPI Narrative The patient is an 89 y/o M w/ PMHx: Chronic total hyperbilirubinemia, Chronic normocytic anemia, CKD stage III unclear subtype per GFR trending, HTN, HLD, GERD, Hypothyroidism, Diabetes mellitus type II, PAF, CHEO, Hx NSVT status post pacemaker placement who presents to the [facility] ED on 11/11/2024 with history of [...] and Flagyl 5 mg IV x 1. [facility] Medical History NSVT (nonsustained ventricular tachycardia) [...] (Auto) 81.6 H, Lymph % (Auto) 8.3L, [place] % (Auto) 8.4, Eos % (Auto) 0.8, [...] Clarity Clear, Urine pH 6.0, Ur Specific [place] 1.020, Urine Protein 30 H, Urine Glucose [...] colitis. 2. Moderate pancolonic diverticulosis. Reading Location: [id number] Assessment & Plan Assessment/Plan (1) Colitis: PLAN: Plan The patient is an 89 y/o M w/ PMHx: Chronic total hyperbilirubinemia, Chronic normocytic anemia, CKD stage III unclear subtype per GFR trending, HTN, HLD, GERD, Hypothyroidism, Diabetes mellitus type II, PAF, CHEO, Hx NSVT status post pacemaker placement who presents to the [facility] ED on 11/11/2024 with history of [...] BMP in AM, per record following with pasta press operator Dr. Shaila Haq. #5. Chronic normocytic anemia: Admission hemoglobin 12.8, MCV 90.2, baseline hemoglobin vacillates from mid 12-13 range primarily, continue to trend #6. Chronic total hyperbilirubinemia, unclear specific etiology: Admission CMP with total bilirubin 2.12, AST/LT 24/19, alk phos 142, stable compared [...] 16 minutes. Charges/Coding Visit Charges Inpatient E&M: 51607 Init Hosp L3 Procedures Hospitalists Procedures: 69051 Advncd Care Plan 30 Min 11/11/24 2210 <Electronically signed by Unique Salazar MD> Cosigner Signature (if applicable): CC: Dr. Unique Salazar MD; Dr. Bernard Nugent MD~ Signed [facility] Work Phone: Hospital Discharge instructions Additional Instructions Break your metoprolol tablets in half and take 1/2 tablet each day rather than 1 tablet each day. Call Dr. Tobias's office in the morning [facility]heck [facility] Work Phone: Hospital Discharge instructions Additional Instructions Stay well-hydrated. Follow-up with your PCP and return for any worsening of your symptoms.[facility] Work Phone: Hospital Discharge instructions Additional [...] discuss with your primary care physician and/or paper and pulp mill operator incidental finding of thoracic arctic aneurysm to obtain proper follow-up and observationWGreene [facility] Work Phone: Hospital Discharge instructionsAdditional Instructions You may obtain loperamide [id number] to take as needed for diarrhea Date of Discharge: 11/14/24[facility] Work Phone: Hospital Discharge instructionsAdditional Instructions Your bladder was not draining urine properly so a Puente catheter was placed. There is no signs of urinary tract infection. Call the urology office for an appointment. Keep your colonoscopy as scheduled to evaluate the ongoing diarrhea. Drink plenty of fluids.[facility] Work Phone: Reason for referral (narrative)No reason for referral information availableWGreene Memorial Hospital Work Phone: Summary Purpose Family History No Family History Records Found Relationship Condition Age at Onset Recorded Date/T angela father Cerebrovascular accident (CVA) Unknown mother Diabetes mellitus Unknown sister Cardiac disease Unknown Advance Directives No Advanced Directives Records Found Advance Directive Response Recorded Date/ Time Advance Directives Yes June 07, 2016 6:40pm Living Will Yes October 25, 2021 8 :34pm Power of Director Of Catering Sales Yes October 25, 2021 8:34pm Advance Directive Response Recorded Date/ Time Name of Medical Power of Director Of Catering Sales Joleen eli October 26, 2021 12:05am Advance Directives Yes June 07, 2016 6:40pm Living Will Yes October 26, 2021 1 2:05am Power of Director Of Catering Sales Yes October 26, 2021 12:05am Advance Directive Response Recorded Date/ Time Name of Medical Power of Director Of Catering Sales Joleen eli October 26, 2021 12:05am Name of Medical Power of Director Of Catering Sales JOLEEN TAMARA- DAUGHTER December 19, 2021 10:21am Advance Directives Yes June 07, 2016 6:40pm Living Will Yes December 19, 2021 10:21am Power of Director Of Catering Sales Yes December 19 10:21am Advance Directive Response Recorded Date/ Time Name of Medical Power of Director Of Catering Sales Joleen eli October 26, 2021 12:05am Name of Medical Power of Director Of Catering Sales JOLEEN MCDONALD- DAUGHTER December 19, 2021 10:21am Name of Medical Power of Director Of Catering Sales Mervat December 21, 2021 5:07pm Advance Directives Yes June 07, 2016 6:40pm Living Will Yes December 21, 2021 5:07pm Power of Director Of Catering Sales Yes December 21 5:07pm Advance Directive Response Recorded Date/ Time Name of Medical Power of Director Of Catering Sales Joleen - hilaria October 26, 2021 12:05am Name of Medical Power of Director Of Catering Sales JOLEEN MCDONALD- DAUGHTER December 19, 2021 10:21am Name of Medical Power of Director Of Catering Sales Mervat December 21, 2021 5:07pm Name of Medical Power of Director Of Catering Sales andrew marte February 04, 2022 10:15pm Advance Directives Yes June 07, 2016 6:40pm Living Will Yes February 04, 2022 10:15pm Power of Director Of Catering Sales Yes January 10:15pm Advance Directive Response Recorded Date/ Time Name of Medical Power of Director Of Catering Sales JOLEEN MCDONALD- DAUGHTER December 19, 2021 10:21am Name of Medical Power of Director Of Catering Sales Mervat December 21, 2021 5:07pm Name of Medical Power of Director Of Catering Sales andrew marte February 04, 2022 10:15pm Advance Directives Yes June 07, 2016 6:40pm Living Will Yes February 04, 2022 10:15pm Power of Director Of Catering Sales Yes January 10:15pm Advance Directive Response Recorded Date/ Time Name of Medical Power of Director Of Catering Sales JOLEEN CHOI DAUGHTER December 19, 2021 9:21am Name of Medical Power of Director Of Catering Sales Mervat December 21, 2021 4:07pm Name of Medical Power of Director Of Catering Sales andrew marte February 04, 2022 9:15pm Advance Directives Yes June 07, 2016 5:40pm Living Will Yes February 04, 2022 9:15pm Power of Director Of Catering Sales Yes January 9:15pm Advance Directive Response Recorded Date/ Time Advance Directives Yes June 07, 2016 5:40pm Living Will Yes February 04, 2022 9:15pm Power of Director Of Catering Sales Yes January 9:15pm Advance Directive Response Recorded Date/ Time Advance Directives Yes June 07, 2016 6:40pm Living Will Yes February 04, 2022 10:15pm Power of Director Of Catering Sales Yes January 10:15pm Advance Directive Response Recorded Date/ Time Advance Directives on File No September 242022 11:20am Name of Medical Power of Director Of Catering Sales Joleen (daught er) September 24, 2022 11:20am Advance Directives Yes September 24, 2022 11:20am Living Will Yes September 24, 2022 11 :20am Power of Director Of Catering Sales Yes September 24, 2022 11:20am Advance Directive Response Recorded Date/ Time Advance Directives Yes September 24, 2022 11:20am Living Will Yes September 24, 2022 11 :20am Power of Director Of Catering Sales Yes September 24, 2022 11:20am Advance Directive Response Recorded Date/ Time Advance Directives Yes September 24, 2022 10:20am Living Will No March 24 10:00am Power of Director Of Catering Sales No March 24, 2023 10:00am Advance Directive Response Recorded Date/ Time Advance Directives Yes September 24, 2022 10:20am Living Will No May 26 6:26pm Power of Director Of Catering Sales No May 26 6:26pm Advance Directive Response Recorded Date/ Time Name of Medical Power of Director Of Catering Sales joleen (daught er) July 07, 2023 11:38am Advance Directives Yes September 24, 2022 10:20am Living Will Yes July 07 11:38am Power of Director Of Catering Sales Yes July 07, 2023 11:38am Advance Directive Response Recorded Date/ Time Name of Medical Power of Director Of Catering Sales joleen (daught er) July 07, 2023 12:38pm Advance Directives Yes September 24, 2022 11:20am Living Will Yes July 07 12:38pm Power of Director Of Catering Sales Yes July 07, 2023 12:38pm Advance Directive Response Recorded Date/ Time Living Will Yes September 24, 2022 10 :20am Power of Director Of Catering Sales Yes September 24, 2022 10:20am Living Will Yes July 03 2:37pm Power of Director Of Catering Sales Yes July 03, 2024 2:37pm Name of Medical Power of Director Of Catering Sales JOLEEN ELI July 03, 2024 2:37pm Advance Directives Yes September 24, 2022 10:20am Advance Directive Response Recorded Date/ Time Living Will Yes July 03 3:37pm Do you have a Healthcare Pow er of Director Of Catering Sales? Yes July 03, 2024 3:37pm Name of Medical Power of Director Of Catering Sales JOLEEN ELI July 03, 2024 3:37pm Advance Directives Yes September 24, 2022 11:20am Advance Directive Response Recorded Date/ Time Advance Directives Yes September 24, 2022 11:20am Advance Directive Response Recorded Date/ Time Do you have a Healthcare Power of Director Of Catering Sales? No November 11, 2024 5:06pm Advance Directives Yes September 24, 2022 11:20am Advance Directive Response Recorded Date/ Time Do you have a Healthcare Pow er of Director Of Catering Sales? Yes November 11, 2024 11:57pm Name of Medical Power of Director Of Catering Sales Susan Mcdonald November 11, 2024 11:57pm Advance Directives Yes September 24, 2022 11:20am Advance Directive Response Recorded Date/ Time Do you have a Healthcare Pow er of Director Of Catering Sales? Yes December 03, 2024 12:40pm Do you have a Healthcare Pow er of Director Of Catering Sales? Yes November 11, 2024 11:57pm Name of Medical Power of Director Of Catering Sales Susan Mcdonald November 11, 2024 11:57pm Advance Directives Yes September 24, 2022 11:20am Advance Directive Response Recorded Date/ Time Do you have a Healthcare Pow er of Director Of Catering Sales? Yes December 03, 2024 4:52pm Do you have a Healthcare Pow er of Director Of Catering Sales? Yes November 11, 2024 11:57pm Name of Medical Power of Director Of Catering Sales Susan Mcdonald November 11, 2024 11:57pm Advance Directives [...] A-FIB Bradycardia per Dr. Raffi ROBERTO PER DOBBY LOOM FIXER REGARDING EKG PERSISTENT ATRIAL FIB PERSISTENT ATRIAL FIB Reason for Visit Essential (primary) hypertension Longstanding persistent atrial fibrillation Essential (primary) hypertension Longstanding persistent atrial fibrillation Status post cardiac pacemaker procedure Longstanding persistent atrial fibrillation Chief Complaint EORDER INT LABS PERSISTENT A-FIB Bradycardia per Dr. Raffi ROBERTO PER DOBBY LOOM FIXER REGARDING EKG PERSISTENT ATRIAL FIB PERSISTENT ATRIAL [...] Chronic diarrhea December 03, 2024 3:45 pm Chief Complaint Admit Date Pacer Check Remote October 31, 2024 4:10 [...] RETENTION S/P PUENTE December 03, 2024 3:45pm GENERALIZED WEAKNESS, URINARY RETENTION S/P PUENTE December 04, 2024 6:56am GENERALIZED WEAKNESS, URINARY RETENTION S/P PUENTE December 05, 2024 7:06am GENERALIZED WEAKNESS, URINARY RETENTION S/P PUENTE December 06, 2024 8:32am GENERALIZED WEAKNESS, URINARY RETENTION S/P PUENTE December 07, 2024 5:07pm Reason for Visit Admit Date Occult GI bleeding November 11, 2024 10:2 6pm Colitis November 11, 2024 10:2 6pm Abnormal findings on imaging test November 172024 11:02am Rectal pain November 26, 2024 11:0 2am Diarrhea November 26, 2024 11:0 2am Acute urinary retention December 06, 2024 8:32am Chronic diarrhea December 06, 2024 8:32 am Additional Source Comments (unrecognized sect ion and content) No Status Records FoundNo Status Records Found INFORMATION SOURCE (unrecogn ized section and content) DATE CREATED AUTHOR 05/17/2018 [facility] DATE CREATED AUTHOR AUTHOR'S ORGANIZ ATION 12/09/2024 [facility] Goals (unrecognized section and content) Goals [...] Care Provider, Referring Provider Active Evin Sarmiento NP, RECYCLING ASSISTANT-C Attending Provider Active Team Status: Active Member Role Status Dates Dr. Bernard Nugent MD Primary Care Provider Active Dr. Shaila Haq DO Attending Provider Active Shaila Haq MD Referring Provider Active Evin Sarmiento RECYCLING ASSISTANT, RECYCLING ASSISTANT-C Other Provider Active Team Status: Inactive Member Role Status Dates Dr. Bernard Nugent MD Primary Care Provider Active Dr. Rodolfo Tobias MD Attending Provider Active Team Status: Inactive Member Role Status Dates Dr. Bernard Nugent MD Primary Care Provider Active Dr. Shaila Haq DO Attending Provider Active Shaila Haq MD Referring Provider Active Evin Sarmiento RECYCLING ASSISTANT, RECYCLING ASSISTANT-C Other Provider Active Team Status: Inactive Member Role Status Dates Dr. Bernard Nugent MD Primary Care Provider Active Dr. Shaila Haq DO Attending Provider Active Shaila CHAVEZ MD Referring Provider Active Evin Sarmiento RECYCLING ASSISTANT, RECYCLING ASSISTANT-C Other Provider Active Team Status: Inactive Member Role Status Dates Dr. Bernard Nugent MD Primary Care Provider Active Dr. Shaila Haq DO Attending Provider Active Team Status: Active Member Role Status Dates Dr. Bernard Nugent MD Primary Care Provider Active Evin Sarmiento RECYCLING ASSISTANT, RECYCLING ASSISTANT-C Attending Provider, Referring Pro vider Active Team Status: Inactive Member Role Status Dates Dr. Bernard Nugent MD Primary Care Provider Active Evin Sarmiento RECYCLING ASSISTANT, RECYCLING ASSISTANT-C Attending Provider, Referring Pro vider Active Team [...] Ray Stuart DO Attending Provider, Emergency P rosandra Active Team Status: Inactive Member Role Status [...] 2024 End: April 22, 2024 Dr. Bernard Nugetn MD Attending Provider Active Start: April 22, [...] Active Start: December 03, 2024 Dr. Ramos Boels DO Admit Provider Active Start: December 03, 2024 Dr. Ramos Boles DO Attending Provider Active Start: December 03, 2024 Team Status: Inactive Member Role/Relationship Status [...] 2024 End: November 14, 2024 Dr. Bhavya aPnda DO Emergency Provider Active Start: November 11, [...] Start: November 14, 2024 Dr. Ankit Last , Other Provider Active S tart: November 14, 2024 Team Status: Inactive Member Role/Relationship Status Dates Dr. Bernard Nugent MD Primary Care Provider Active Start: November 26, 2024 End: November 26, 2024 Dr. Bernard Nugent MD Referring Provider Active Start: November 26, 2024 End: November 26, 2024 Ximena Armstrong NP-Jean Paul Attending Provider Active Start: November 26, 2024 End: November 26, 2024 Team Status: Active Member Role/Relationship Status Dates Dr. Bernard Nugent MD Primary Care Provider Active Start: December 03, 2024 Dr. Damien Welch DO Emergency Provider Active Start: December 03, 2024 Dr. Ramos Boles DO Admit Provider Active Start: December 03, 2024 Dr. Ramos Boles DO Attending Provider Active Start: December 03, 2024 Dr. Ramos Boles DO Other Provider Active Start: December 03, 2024 Team Status: Active Member Role/Relationship Status Dates Dr. Bernard Nugent MD Primary Care Provider Active Start: December 04, 2024 Dr. Damien Welch DO Emergency Provider Active Start: December 04, 2024 Dr. Ramos Boles DO Admit Provider Active Start: December 04, 2024 Dr. Ramos Boles DO Other Provider Active Start: December 04, 2024 Dr. Unique Salazar MD Attending Provider Active Start: December 04, 2024 Dr. Unique Salazar MD Other Provider Active St art: December 04, 2024 Team Status: Active Member Role/Relationship Status Dates Dr. Bernard Nugent MD Primary Care Provider Active Start: December 05, 2024 Dr. Damien Welch DO Emergency Provider Active Start: December 05, 2024 Dr. Ramos Boles DO Admit Provider Active Start: December 05, 2024 Dr. Ramos Boles DO Other Provider Active Start: December 05, 2024 Dr. Unique Salazar MD Attending Provider Active Start: December 05, 2024 Dr. Unique Salazar MD Other Provider Active St art: December 05, 2024 Team Status: Inactive Member Role/Relationship Status Dates Dr. Bernard Nugent MD Primary Care Provider Active Start: December 06, 2024 End: December 08, 2024 Dr. Damien Welch DO Emergency Provider Active Start: December 06, 2024 End: December 08, 2024 Dr. Ramos Boles DO Admit Provider Active Start: December 06, 2024 End: December 08, 2024 Dr. Ramos Boles DO Other Provider Active Start: December 06, 2024 End: December 08, 2024 Dr. Unique Salazar MD Other Provider Active St art: December 06, 2024 End: December 08, 2024 Dr. Steph Beltran MD Attending Provider Active Start: December 06, 2024 End: December 08, 2024 Team Status: Active Member Role/Relationship Status Dates Dr. Bernard Nugent MD Primary Care Provider Active Start: December 07, 2024 Dr. Damien Welch DO Emergency Provider Active Start: December 07, 2024 Dr. Ramos Boles DO Admit Provider Active Start: December 07, 2024 Dr. Ramos Boles DO Other Provider Active Start: December 07, 2024 Dr. Unique Salazar MD Other Provider Active St art: December 07, 2024 Dr. Steph Beltran MD Attending Provider Active Start: December 07, 2024 Dr. Steph Beltran MD Other Provider Active St art: December 07, 2024 FOR RECORDS PERTAINING TO PATIENTS WHO [...] BE BASED ON THE PRIMARY CLINICAL RECORDS. [employer] [facility]. provides no warranty or guarantee of the accuracy or completeness of information in this document.
[2024-12-11 07:30] LABS: Hematocrit 33.0 % (40-54); Hemoglobin 11.5 g/dL (13.0-16.5); Immature Granulocytes Count 0.080 X10^3/uL (0.0-0.0); Mean Corp Hgb Conc 34.8 g/dL (32-36); Mean Corpuscular Volume 89.4 fL (80-94); Mean Platelet Vol. 11.6 fl (6.2-12.0); NRBC Flagged by Analyzer 0 % (0-5); Platelet Count 205 K/mm3 (150-450); RBC Distribution Width CV 13.5 % (11.6-14.6); RBC Distribution Width SD 44.0 fl (35.1-43.9); Red Blood Count 3.69 M/mm3 (4.6-6.2); White Blood Count 11.8 K/mm3 (4.4-11.0)
[2024-12-11] MEDS: 0.9% Normal Saline (1000mL) 1,000 ML 999 ML IV (07:43)
--- NOTE | 2024-12-11 07:49 | CT_ITS ---
PROCEDURE: CTA ABD/PELVIS W/WO CONTRAST 12/11/2024 REASON FOR EXAM: GI BLEED Chronic kidney disease, hypertension, diabetes. Prior appendectomy, cholecystectomy and hemicolectomy. Currently on blood thinners TECHNIQUE: CTA ABD/PELVIS W/WO CONTRAST Multiplanar Sagittal and Coronal images were obtained. 3D and or MIPS post processing was performed CONTRAST: Isovue 370 VOLUME: 94 mL One or more dose reduction techniques were used (e.g., Automated exposure control, adjustment of the mA and/or kV according to patient size, use of iterative reconstruction technique). RADIATION DOSE SUMMARY: CTDlvol: 86 mGy DLP: 1249 mGycm COMPARISON: November 11 FINDINGS: Aorta: The timing and quality of the contrast bolus is diagnostic. There is no evidence of aortic rupture or dissection. Uvnykhek-bi-xnfpdc atherosclerotic plaque is present. Iliac Arteries: No aneurysm or dissection. Aactbwyc-lg-khazno atherosclerotic plaque present. Celiac: Patent. Some plaque is seen near the origin that is less than 25% narrowing. SMA: Patent. Some plaque is seen near the origin that is less than 25% narrowing. AB : Patent. Right Renal: Patent. 50-69% stenosis related to atherosclerotic plaque near the origin. Left Renal: Patent. At least 50% stenosis related to atherosclerotic plaque near the origin. Extravascular Findings: Tiny liver cysts versus biliary hamartomas. Cholecystectomy. Spleen, pancreas and right adrenal appear normal. Left adrenal mass is again noted measuring 2.2 cm. Non-specific. No renal collecting system dilation, calculus or worrisome mass. Age- appropriate cortical thinning is present. No lymph node enlargement. No free fluid, free air is seen. Urinary bladder is empty from a Puente catheter. Small sliding hiatus hernia is seen. Stomach is otherwise normal. Small bowel is normal caliber. Partial resection of the colon is seen possibly an extended right hemicolectomy with surgical anastomosis shown in the left lower quadrant. This appears uncomplicated. Colonic diverticulosis without diverticulitis is present involving the sigmoid colon. Large amount of formed stool is seen within the rectal vault and there is mild thickening of the colonic wall suggestive of stercoral colitis. Multilevel degenerative disc disease. Small mass just superior to the symphysis pubis appears benign. No change. CT/CTA Abd/Pelvis W/WO Contrast IMPRESSION: 1. No acute aortic abnormality. 2. Advanced atherosclerosis of the aorta. No flow-limiting stenosis involving the celiac, SMA or AB. 3. 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 4. Partial colectomy. Uncomplicated anastomosis. No site of bleeding at this time. 5. Sigmoid diverticulosis without diverticulitis. Large volume of formed stoo l in the rectal vault with mild thickening of the rectal wall suggestive of stercoral colitis. Infectious or inflammatory coliti s favored less but not excluded. 6. Introduction of a Puente catheter. Bladder is decompressed. 7. Non-specific left adrenal nodule. If desired, and on a nonemergent basis c onsider dedicated contrast-enhanced MRI. Reading Location: [id number]
[2024-12-11 07:58] LABS: Mucous, Urine 0 SEEN /hpf (<or=2+); Squamous Epithelial Cells - UA 0 SEEN /hpf (0-5)
[2024-12-11 08:01] LABS: Color, Urine Yellow (Yellow); Glucose, Dipstick Normal (Normal); Ketone-Dipstick Negative (Negative); Leukocyte Esterase-Dipstick 100 /ul (Negative); Nitrite-Dipstick Negative (Negative); Occult Blood-Urine 150 /ul (Negative); Protein-Dipstick 30 mg/dl (Negative); Specific Gravity, Urine 1.015 (1.002-1.030); Urine Bilirubin Dipstick Negative (Negative)
[2024-12-11 08:03] LABS: Lipase 16 U/L (13-75)
[2024-12-11 08:11] LABS: Red Blood Cells-Urine 0-5 SEEN /hpf (0-5)
[2024-12-11 08:18] LABS: AST(SGOT) 24 U/L (<=37); Alanine Aminotransfer ALT/SGPT 18 U/L (<=46); Albumin, Serum 3.6 g/dL (3.4-4.8); Alkaline Phosphatase 161 U/L (40-129); Anion Gap 12 (5-15); BUN 25 mg/dL (4-19); BUN/Creat Ratio 19.0 RATIO (10-20); Calcium,Total 8.1 mg/dL (7.6-11.0); Carbon Dioxide 21.5 mmol/L (21.0-32.0); Chloride 96 mmol/L (98-108); Estimated Creatinine Clearance 43.37 ml/min (50-250); Globulin 3.0 g/dL (2.2-4.2); Glucose 134 mg/dL (70-99); Potassium 3.5 mmol/L (3.3-5.1)
[2024-12-11] MEDS: Pantoprazole Sodium 40 MG in 0.9% Normal Saline (100mL MB+) 100 ML 300 MG IV (08:23)
--- NOTE | 2024-12-11 13:35 | CASEMGMT ---
Social Work Patient recently MT'ed from [facility] on 12/08. Face to face assessment was completed less than 30 days ago. Patient stated that since discharge, his neighbor had been coming to the house 2 times a day and HH had been initiated. Patient states that his family is looking into AL and he stated that he also feels that it is time for him to receive more assistance. Patient wishes to discharge home so his family has time to find an assisted living and he has time to prepare to move. No further needs identified at this time. Mile Alvarez, MC KAY STITCHER, PRECISION LENS GRINDER APPRENTICE
--- NOTE | 2024-12-11 13:46 | PCM.HP.STD ---
[facility] - General General Date of Admission: 12/11/24 HPI Narrative ASHIA PEREZ, is a 89 M who presents with recurrent diarrhea and occult positive stools. He was recently admitted from 12/03/2024 and discharged on 12/08/2024 with episodes of diarrhea and urinary retention. Stool studies were negative for C. difficile and stool studies today on admission in the ER were also negative for C. difficile. He is afebrile but was having some discomfort with the frequency of his diarrhea at home. Initially he did not want to have a colonoscopy done while here however he agreed to have a colonoscopy on this admission as he lives alone and is blind with macular degeneration and was having trouble managing at home. There was an attempt on his previous admission to get him to go to a residential however he and his family refused. Hemoglobin is stable so bleeding is likely due to fissuring or excoriation from his diarrhea. He denies any fevers or chills, no nausea or vomiting, no abdominal pain. [facility] Medical History Pacemaker Occult GI bleeding NSVT (nonsustained ventricular tachycardia) Aortic aneurysm without rupture Non-smoker Sleep apnea Atrial fibrillation Hypertension Chronic renal insufficiency, stage III (moderate) Closed head injury Fall Longstanding persistent atrial fibrillation Obstructive sleep apnea Right bundle branch block (RBBB) with left anterior fascicular block Left ventricular diastolic dysfunction Obesity Essential (primary) hypertension Nonrheumatic mitral (valve) insufficiency Non-rheumatic tricuspid valve insufficiency Paroxysmal atrial fibrillation Hyperlipidemia Diverticulosis Type 2 diabetes mellitus Diverticulitis large intestine Diverticula of colon Home Medications ?Medication ?Instructions ?Recorded ?Last Taken ?Type levothyroxine 25 mcg tablet 25 mcg PO DAILY 02/20/24 Unknown History apixaban 2.5 mg tablet 2.5 mg PO BID blood thinner #60 03/27/24 Unknown Rx tabs amlodipine 5 mg tablet 5 mg PO DAILY #90 tabs 03/31/24 Unknown Rx losartan 100 mg tablet 100 mg PO QDAY 03/31/24 Unknown History metoprolol tartrate 25 mg tablet 25 mg PO BID #180 tabs 08/18/24 Unknown Rx dicyclomine 20 mg tablet 20 mg PO TID #30 tabs 11/14/24 Unknown Rx loperamide 2 mg capsule 2 mg PO TID PRN Diarrhea 11/25/24 Unknown History pravastatin 40 mg tablet 40 mg PO QHS cholesterol 11/26/24 Unknown History tamsulosin 0.4 mg capsule 0.4 mg PO DAILY@1730 #30 caps 12/08/24 Unknown Rx amoxicillin 875 mg-potassium 1 tab PO BID 12/11/24 Unknown History clavulanate 125 mg tablet pantoprazole 40 mg tablet,delayed 40 mg PO DAILY PRN indigestion 12/11/24 Unknown History release Allergy/AdvReac Type Severity Reaction Status Date / Time codeine AdvReac Other Verified 12/11/24 06:35 lisinopril AdvReac Other Verified 12/11/24 06:35 Family History Father CVA (cerebral vascular accident) Mother Diabetes Sister Heart disease PPM Surgical History History of appendectomy History of cataract surgery History of tonsillectomy H/O hemicolectomy Hx of cholecystectomy Social History household members: none housing: residential Smoking Status: Former smoker Smokeless tobacco user: other alcohol intake: current alcohol intake frequency: holidays/special occasions only substance use type: does not use ROS Constitutional Constitutional: Denies chills, fatigue, fever(s) or malaise Eyes Eyes: Denies blurry vision ENT HEENT: Denies headache(s) or nasal discharge Cardiovascular Cardiovascular: Denies chest pain, dyspnea on exertion or syncope Respiratory/Chest Respiratory/Chest: Denies cough, shortness of breath at rest or shortness of breath with exertion Gastrointestinal Gastrointestinal: Reports diarrhea; Denies constipation, nausea or vomiting Genitourinary Genitourinary: Denies dysuria Neurologic Neurologic: Denies focal weakness, numbness or tremor(s) Psychiatric Psychiatric: Denies anxiety or depression Vital Signs Vital Signs Vital Signs: 12/11/24 06:36 12/11/24 06:40 12/11/24 08:40 Temperature 97.8 F 97.8 F Temperature Source Oral Oral Pulse Rate 71 67 61 Respiratory Rate 16 18 16 Blood Pressure 146/67 H 146/67 H 134/60 H Blood Pressure Mean 93 93 84 Pulse Ox 97 98 98 Oxygen Delivery Method Room Air Room Air Room Air 12/11/24 08:40 12/11/24 10:00 12/11/24 10:59 Temperature 97.5 F L 97.5 F L Temperature Source Temporal Pulse Rate 61 65 Respiratory Rate 18 16 Blood Pressure 134/60 H 137/70 H 136/66 H Blood Pressure Mean 84 92 89 Pulse Ox 98 100 Oxygen Delivery Method Room Air Weight Weight: 200 lb 9.93 oz Body Mass Index (BMI) 28.8 Physical Exam Narrative General: Alert, Oriented x3, Cooperative, No apparent distress HEENT: Atraumatic, PERRLA, EOMI, Normocephalic Oral: Moist Mucosa Neck: Supple, No JVD Lungs: Diminished, Normal air movement, No rhonchi, No wheeze, No rales Cardiovascular: Regular rate, Regular Rhythm, Normal S1, Normal S2, No murmurs Abdomen: Soft, Non Tender, Non-Distended, No Hepato-splenomegaly Extremities: No edema, Capillary Refill Less than 3 Seconds Skin: No rashes, No breakdown Musculoskeletal: No Tenderness to Palpation of Joints or Extremities Neurological: No focal neurological deficits, moves all extremities, sensation intact Psych/Mental Status: Normal Affect, Appropriate Results Lab / Micro Data 12/11/24 06:40 12/11/24 06:40 Labs: Laboratory Results - last 24 hr 12/11/24 06:40: WBC 11.8 H, RBC 3.69 L, Hgb 11.5 L, Hct 33.0 L, MCV 89.4, MCH 31.2, MCHC 34.8, RDW Std Deviation 44.0 H, RDW Coeff of Lisa 13.5, Plt Count 205, MPV 11.6, Immature Gran % (Auto) 0.700, Neut % (Auto) 80.0 H, Lymph % (Auto) 7.3 L, Swift % (Auto) 10.7 H, Eos % (Auto) 1.0, Baso % (Auto) 0.3, Absolute Neuts (auto) 9.5 H, Absolute Lymphs (auto) 0.87, Nucleated RBC % 0, Sodium 130 L, Potassium 3.5, Chloride 96 L, Carbon Dioxide 21.5, Anion Gap 12, BUN 25 H, Creatinine 1.31 H, Estim Creat Clear Calc 43.37 L, Est GFR (MDRD) Non-Af 52 L, BUN/Creatinine Ratio 19.0, Glucose 134 H, Calcium 8.1, Total Bilirubin 1.94 H, AST 24, ALT 18, Alkaline Phosphatase 161 H, Total Protein 6.6, Albumin 3.6, Globulin 3.0, Albumin/Globulin Ratio 1.2, Lipase 16 12/11/24 07:22: Lactic Acid 1.2 12/11/24 07:46: Urine Color Yellow, Urine Clarity Clear, Urine pH 6.0, Ur Specific [place] 1.015, Urine Protein 30 H, Urine Glucose (UA) Normal, Urine Ketones Negative, Urine Occult Blood 150 H, Urine Nitrite Negative, Urine Bilirubin Negative, Urine Urobilinogen Normal, Ur Leukocyte Esterase 100 H, Urine RBC 0-5 SEEN, Urine WBC 0-5 SEEN, Ur Squamous Epith Cells 0 SEEN, Urine Bacteria 0 SEEN, Urine Mucus 0 SEEN Micro: Microbiology 12/11/24 07:20 Stool Clostridioides difficile (PCR) - Final 12/11/24 07:18 Stool Stool Occult Blood (CHERRY) - Final Occult Blood Positive Imaging Radiology Impression Abdomen/Pelvis CTA 12/11/24 07:49 IMPRESSION: 1. No acute aortic abnormality. 2. Advanced atherosclerosis of the aorta. No flow-limiting stenosis involving the celiac, SMA or AB. 3. 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 4. Partial colectomy. Uncomplicated anastomosis. No site of bleeding at this time. 5. Sigmoid diverticulosis without diverticulitis. Large volume of formed stool in the rectal vault with mild thickening of the rectal wall suggestive of stercoral colitis. Infectious or inflammatory colitis favored less but not excluded. 6. Introduction of a Puente catheter. Bladder is decompressed. 7. Non-specific left adrenal nodule. If desired, and on a nonemergent basis consider dedicated contrast-enhanced MRI. Reading Location: [id number] Assessment & Plan Assessment/Plan (1) Colitis: (2) Diarrhea: PLAN: Plan 1. Recurrent colitis with diarrhea and bleeding/GERD ? His bleeding is not significant however we will hold Eliquis while here pending possible colonoscopy ? Will continue with clear liquid diet ? Will consult GI as he has consented to proceed with a colonoscopy on this admission ? Will continue with his oral Augmentin that he was supposed to have on discharge. ? Since he has been ruled out for major infection, will continue with Imodium to help control his diarrhea ? Continue with PPI 2. Essential HTN/HLD/A-fib ? Will hold his Eliquis pending colonoscopy ? Continue with his home blood pressure medications ? Continue with his home cholesterol medications 3. Urinary retention ? He is on dicyclomine which unfortunately was continued on discharge previously ? He does have a Puente in place ? Continue with Flomax and will discontinue his dicyclomine ? Will attempt voiding trial prior to discharge 4. Hypothyroidism ? Stable ? Continue with Synthroid DVT: SCDs 75 minutes was spent on direct patient care, including documentation as well as chart review and collaboration with colleagues Charges/Coding Visit Charges Inpatient E&M: 33908 Init Hosp L3
--- NOTE | 2024-12-11 15:01 | NURSING ---
Call received from Patti germain. This nurse updated Patti on current condition and POC.
--- NOTE | 2024-12-11 15:20 | CASEMGMT ---
Addendum entered by Belen Morocho 12/11/24 17:29: Green sheet placed on chart for [facility]. Original Note: RN RUBIA readmission note: Index admission: 12/06-: Generalized weakness, urinary retention S/P figueroa. Pt also w/noninfective gastroenteritis & colitis. Pt declined to have colonoscopy done during index admission. Pt lives alone and is blind. Pt dc'd home w/ figueroa catheter and /[facility] arranged. [facility] Family had also arranged for neighbor, Carley, who is a nurse, to go to pt's home 2 x's/day to empty F/C. Pt to f/u with PCP 12/[address] Ortega 12/14. [facility] van arranged to transport him to Dr Ortega's appt. Current admission: Admit 12/11: Diarrhea w/GIB. NICOLE CM to room to discuss readmission and discharge planning. Pt resting in bed. Introduced self and role. Pt states he has been getting along well @ home until about 2:30 AM last night when he started having diarrhea again. [facility] and his neighbor, Carley, has been coming by to empty his F/C. He wishes to discharge home and would like to resume /[facility] HHC @ ar and declines wanting list of other HHC options. However, he did state, if his F/C would be removed before dc'ing home, he would not need or want HHC. He would also like to continue to have his neighbor coming to empty his F/C. He states he did go to appt w/Dr Nugent yesterday and he gave him a new Rx for atb's, which he has started. He also states he did get new Rx for Flomax filled and has been taking that as prescribed as well as his other medications. He has a f/u appt w/Dr Ortega on Saturday @ 10:45 and [facility] van transport has been set up for this. Call placed to [employer] @ the call center for van transport. He was made aware pt has been admitted to [facility]. He states he will f/u thing Saturday AM to see if pt has been discharged. Appt w/Dr Ortega will need cx'd on Saturday AM, if pt is still in the hospital and unable to make the appt. Pt states his family is looking into him going to an A.L. He feels safe with discharging home alone until this is set up. [facility] order has been placed for SN. SW added to assist w/AL. Plan: Home w/MIS [facility] and neighbor to come 2 x's/day to empty F/C. Mirtha PHOENIXN RN CM
--- NOTE | 2024-12-11 18:21 | EX.PCM.CON.G ---
HPI Consult Data Date of Consult: 12/11/24 HPI Narrative HPI Narrative: ASHIA PEREZ, is a 89-year-old male, presents with a chief complaint of recurrent diarrhea and reports seeing dark stools. He describes the diarrhea as frequent, watery bowel movements, occurring multiple times a day for the past several weeks. He denies fever, nausea, vomiting, or abdominal pain but reports experiencing increased fatigue during this period. The patient reports no recent changes in diet or travel history. He notes his appetite has been somewhat decreased. He was recently admitted from 12/03/2024 and discharged on 12/08/2024 with episodes of diarrhea and urinary retention. Stool studies were negative for C. difficile and stool studies today on admission in the ER were also negative for C. difficile. [facility] Medical History Pacemaker Occult GI bleeding NSVT (nonsustained ventricular tachycardia) Aortic aneurysm without rupture Non-smoker Sleep apnea Atrial fibrillation Hypertension Chronic renal insufficiency, stage III (moderate) Closed head injury Fall Longstanding persistent atrial fibrillation Obstructive sleep apnea Right bundle branch block (RBBB) with left anterior fascicular block Left ventricular diastolic dysfunction Obesity Essential (primary) hypertension Nonrheumatic mitral (valve) insufficiency Non-rheumatic tricuspid valve insufficiency Paroxysmal atrial fibrillation Hyperlipidemia Diverticulosis Type 2 diabetes mellitus Diverticulitis large intestine Diverticula of colon Home Medications ?Medication ?Instructions ?Recorded ?Last Taken ?Type levothyroxine 25 mcg tablet 25 mcg PO DAILY 02/20/24 Unknown History apixaban 2.5 mg tablet 2.5 mg PO BID blood thinner #60 03/27/24 Unknown Rx tabs amlodipine 5 mg tablet 5 mg PO DAILY #90 tabs 03/31/24 Unknown Rx losartan 100 mg tablet 100 mg PO QDAY 03/31/24 Unknown History metoprolol tartrate 25 mg tablet 25 mg PO BID #180 tabs 08/18/24 Unknown Rx dicyclomine 20 mg tablet 20 mg PO TID #30 tabs 11/14/24 Unknown Rx loperamide 2 mg capsule 2 mg PO TID PRN Diarrhea 11/25/24 Unknown History pravastatin 40 mg tablet 40 mg PO QHS cholesterol 11/26/24 Unknown History tamsulosin 0.4 mg capsule 0.4 mg PO DAILY@1730 #30 caps 12/08/24 Unknown Rx amoxicillin 875 mg-potassium 1 tab PO BID 12/11/24 Unknown History clavulanate 125 mg tablet pantoprazole 40 mg tablet,delayed 40 mg PO DAILY PRN indigestion 12/11/24 Unknown History release Allergy/AdvReac Type Severity Reaction Status Date / Time codeine AdvReac Other Verified 12/11/24 06:35 lisinopril AdvReac Other Verified 12/11/24 06:35 Family History Father CVA (cerebral vascular accident) Mother Diabetes Sister Heart disease PPM Surgical History History of appendectomy History of cataract surgery History of tonsillectomy H/O hemicolectomy Hx of cholecystectomy Social History household members: none housing: alf Smoking Status: Former smoker Smokeless tobacco user: other alcohol intake: current alcohol intake frequency: holidays/special occasions only substance use type: does not use ROS Constitutional Constitutional: Denies fatigue, fever(s), poor appetite, weight gain or weight loss Gastrointestinal Gastrointestinal: Denies belching, bloating, change in bowel habits, change in stool character, chewing difficulty, coffee ground emesis, constipation, cramping, diarrhea, dyspepsia, dysphagia, early satiety, excessive flatus, fecal incontinence, heartburn, hematemesis, hematochezia, hemorrhoids, loose stools, melena, nausea, odynophagia, rectal bleeding, tenesmus, vomiting or weight changes Physical Exam Const alert, oriented x3, no apparent distress and healthy appearing General Appearance: cooperative GI normal to inspection, nondistended, normoactive bowel sounds, soft to palpation, non-tender and non-distended Percussion: normal to percussion Rectal Exam: deferred Lab / Micro Data 12/11/24 06:40 12/11/24 06:40 Labs: Laboratory Results - last 24 hr 12/11/24 06:40: WBC 11.8 H, RBC 3.69 L, Hgb 11.5 L, Hct 33.0 L, MCV 89.4, MCH 31.2, MCHC 34.8, RDW Std Deviation 44.0 H, RDW Coeff of Lisa 13.5, Plt Count 205, MPV 11.6, Immature Gran % (Auto) 0.700, Neut % (Auto) 80.0 H, Lymph % (Auto) 7.3 L, Lynn % (Auto) 10.7 H, Eos % (Auto) 1.0, Baso % (Auto) 0.3, Absolute Neuts (auto) 9.5 H, Absolute Lymphs (auto) 0.87, Nucleated RBC % 0, Sodium 130 L, Potassium 3.5, Chloride 96 L, Carbon Dioxide 21.5, Anion Gap 12, BUN 25 H, Creatinine 1.31 H, Estim Creat Clear Calc 43.37 L, Est GFR (MDRD) Non-Af 52 L, BUN/Creatinine Ratio 19.0, Glucose 134 H, Calcium 8.1, Total Bilirubin 1.94 H, AST 24, ALT 18, Alkaline Phosphatase 161 H, Total Protein 6.6, Albumin 3.6, Globulin 3.0, Albumin/Globulin Ratio 1.2, Lipase 16 12/11/24 07:22: Lactic Acid 1.2 12/11/24 07:46: Urine Color Yellow, Urine Clarity Clear, Urine pH 6.0, Ur Specific [place]rum 1.015, Urine Protein 30 H, Urine Glucose (UA) Normal, Urine Ketones Negative, Urine Occult Blood 150 H, Urine Nitrite Negative, Urine Bilirubin Negative, Urine Urobilinogen Normal, Ur Leukocyte Esterase 100 H, Urine RBC 0-5 SEEN, Urine WBC 0-5 SEEN, Ur Squamous Epith Cells 0 SEEN, Urine Bacteria 0 SEEN, Urine Mucus 0 SEEN Micro: Microbiology 12/11/24 07:20 Stool Clostridioides difficile (PCR) - Final 12/11/24 07:18 Stool Stool Occult Blood (CHERRY) - Final Occult Blood Positive Imaging Radiology Impression Abdomen/Pelvis CTA 12/11/24 07:49 IMPRESSION: 1. No acute aortic abnormality. 2. Advanced atherosclerosis of the aorta. No flow-limiting stenosis involving the celiac, SMA or AB. 3. 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 4. Partial colectomy. Uncomplicated anastomosis. No site of bleeding at this time. 5. Sigmoid diverticulosis without diverticulitis. Large volume of formed stool in the rectal vault with mild thickening of the rectal wall suggestive of stercoral colitis. Infectious or inflammatory colitis favored less but not excluded. 6. Introduction of a Puente catheter. Bladder is decompressed. 7. Non-specific left adrenal nodule. If desired, and on a nonemergent basis consider dedicated contrast-enhanced MRI. Reading Location: [id number] Assessment & Plan Assessment/Plan (1) Colitis: (2) Diarrhea: (3) GI bleed: PLAN: 89-year-old male presents with recurrent diarrhea and occult positive stools, with a CT scan showing evidence of colitis. Considering his age, the differential diagnosis for colitis with bloody diarrhea is broad and includes:? Infectious colitis:?Due to organisms such as?Salmonella,?Shigella,?Campylobacter, and?E. coli?O157:H7. His enteric pathogens and C. difficile was negative. Ischemic colitis:?More common in elderly individuals due to localized episodes of nonocclusive ischemia. Inflammatory bowel disease (IBD):?Although less common to manifest in older age, ulcerative colitis or Crohn's colitis should be considered. Diverticulitis:?Inflammation of diverticula in the colon can cause bloody stools and diarrhea. Colorectal Cancer:?Particularly important to consider given the occult blood in the stool.? Plan Further Investigations: Colonoscopy:?To visualize the colon mucosa, obtain biopsies for histological analysis, and rule out malignancy and other inflammatory conditions. Patient should prep on 12/12 and 12/13 as he has large stool burden for colonoscopy on 12/14/2024`. Symptomatic Management: Hydration:?Emphasize adequate fluid intake to prevent dehydration associated with diarrhea. Diet:?Recommend a bland, low-residue diet, avoiding potential trigger foods like spicy or dairy products (if lactose intolerant). Treatment: Hold anti-diarrheal agents until he undergoes a colonoscopy Colitis-specific treatment:?Depending on the colonoscopy findings and confirmed diagnosis treatment with specific medications may be necessary. Charges/Coding Visit Charges Inpatient E&M: 40116 Init Hosp L3
[2024-12-11] MEDS: 0.9% Saline Lock 10 ML Syringe IV (21:55)
[2024-12-12 04:18] LABS: Hematocrit 28.8 % (40-54); Hemoglobin 10.2 g/dL (13.0-16.5); Immature Granulocytes Count 0.040 X10^3/uL (0.0-0.0); Mean Corp Hgb Conc 35.4 g/dL (32-36); Mean Corpuscular Volume 88.1 fL (80-94); Mean Platelet Vol. 11.2 fl (6.2-12.0); NRBC Flagged by Analyzer 0 % (0-5); Platelet Count 180 K/mm3 (150-450); RBC Distribution Width CV 13.4 % (11.6-14.6); RBC Distribution Width SD 43.3 fl (35.1-43.9); Red Blood Count 3.27 M/mm3 (4.6-6.2); White Blood Count 8.5 K/mm3 (4.4-11.0)
[2024-12-12 04:58] VITALS: BP 120/57; PULSE 59; RESP 16; TEMP 36.8; O2SAT 96
[2024-12-12 05:04] LABS: Anion Gap 9 (5-15); BUN 17 mg/dL (4-19); BUN/Creat Ratio 15.1 RATIO (10-20); Calcium,Total 7.4 mg/dL (7.6-11.0); Carbon Dioxide 21.1 mmol/L (21.0-32.0); Chloride 102 mmol/L (98-108); Estimated Creatinine Clearance 50.27 ml/min (50-250); Glucose 102 mg/dL (70-99); Potassium 3.4 mmol/L (3.3-5.1)
--- NOTE | 2024-12-12 08:27 | PCM.PN.HOSP ---
Subjective Subjective Doing well, no issues overnight. Appreciate GIs assistance Objective Data Objective Data Vital Signs: Vital Signs Temp Pulse Resp BP Pulse Ox O2 Del Method 98.3 F 59 L 16 120/57 L 96 Room Air 12/12/24 04:58 12/12/24 04:58 12/12/24 04:58 12/12/24 04:58 12/12/24 04:58 12/12/24 05:05 Oxygen Delivery Method Room Air Weight: 200 lb 9.93 oz Body Mass Index (BMI) 28.8 Intake & Output: Intake and Output for Last 24 Hours 12/11/24 12/12/24 12/13/24 03:59 03:59 03:59 Intake Total 1100 / 1100 420 / 420 Output Total 1450 / 1450 400 / 400 Balance -350 / -350 Lab / Micro Data 12/12/24 03:55 12/12/24 03:55 Labs: Laboratory Results - last 24 hr 12/12/24 03:55: WBC 8.5, RBC 3.27 L, Hgb 10.2 L, Hct 28.8 L, MCV 88.1, MCH 31.2, MCHC 35.4, RDW Std Deviation 43.3, RDW Coeff of Lisa 13.4, Plt Count 180, MPV 11.2, Immature Gran % (Auto) 0.500, Neut % (Auto) 73.6 H, Lymph % (Auto) 12.4 L, Clinch % (Auto) 11.3 H, Eos % (Auto) 1.8, Baso % (Auto) 0.4, Absolute Neuts (auto) 6.3, Absolute Lymphs (auto) 1.05, Nucleated RBC % 0, Sodium 132 L, Potassium 3.4, Chloride 102, Carbon Dioxide 21.1, Anion Gap 9, BUN 17, Creatinine 1.13, Estim Creat Clear Calc 50.27, Est GFR (MDRD) Non-Af 62, BUN/Creatinine Ratio 15.1, Glucose 102 H, Calcium 7.4 L Micro: Microbiology 12/11/24 07:20 Stool Clostridioides difficile (PCR) - Final 12/11/24 07:18 Stool Stool Occult Blood (CHERRY) - Final Occult Blood Positive Radiography Diagnostic Testing: Radiology Impression Abdomen/Pelvis CTA 12/11/24 07:49 IMPRESSION: 1. No acute aortic abnormality. 2. Advanced atherosclerosis of the aorta. No flow-limiting stenosis involving the celiac, SMA or AB. 3. 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 4. Partial colectomy. Uncomplicated anastomosis. No site of bleeding at this time. 5. Sigmoid diverticulosis without diverticulitis. Large volume of formed stool in the rectal vault with mild thickening of the rectal wall suggestive of stercoral colitis. Infectious or inflammatory colitis favored less but not excluded. 6. Introduction of a Puente catheter. Bladder is decompressed. 7. Non-specific left adrenal nodule. If desired, and on a nonemergent basis consider dedicated contrast-enhanced MRI. Reading Location: [facility] Physical Exam Narrative General: Alert, Oriented x3, Cooperative, No apparent distress HEENT: Atraumatic, PERRLA, EOMI, Normocephalic Oral: Moist Mucosa Neck: Supple, No JVD Lungs: Diminished, Normal air movement, No rhonchi, No wheeze, No rales Cardiovascular: Regular rate, Regular Rhythm, Normal S1, Normal S2, No murmurs Abdomen: Soft, Non Tender, Non-Distended, No Hepato-splenomegaly Extremities: No edema, Capillary Refill Less than 3 Seconds Skin: No rashes, No breakdown Musculoskeletal: No Tenderness to Palpation of Joints or Extremities Neurological: No focal neurological deficits, moves all extremities, sensation intact Psych/Mental Status: Normal Affect, Appropriate Assessment & Plan Assessment/Plan (1) Colitis: (2) Diarrhea: PLAN: Plan 1. Recurrent colitis with diarrhea and bleeding/GERD ? His bleeding is not significant however we will hold Eliquis while here pending possible colonoscopy ? Will continue with clear liquid diet ? Appreciate GIs assistance, plan for colonoscopy on Saturday, hold Imodium and plan for prep tomorrow ? Will continue with his oral Augmentin that he was supposed to have on discharge. ? Since he has been ruled out for major infection ? Continue with PPI 2. Essential HTN/HLD/A-fib ? Will hold his Eliquis pending colonoscopy ? Continue with his home blood pressure medications ? Continue with his home cholesterol medications 3. Urinary retention ? He is on dicyclomine which unfortunately was continued on discharge previously ? He does have a Puente in place ? Continue with Flomax and will discontinue his dicyclomine ? Will attempt voiding trial prior to discharge 4. Hypothyroidism ? Stable ? Continue with Synthroid DVT: SCDs Charges/Coding Visit Charges Inpatient E&M: 15366 Subs Hosp L2
[2024-12-12 09:31] VITALS: BP 130/60; PULSE 60; RESP 16; TEMP 36.9; O2SAT 98
[2024-12-12 09:44] VITALS: PULSE 60
[2024-12-12 14:35] VITALS: BP 129/54; PULSE 73; RESP 16; TEMP 36.8; O2SAT 99
--- NOTE | 2024-12-12 15:28 | NURSING ---
Updated pt's daughter on POD and upcoming events
--- NOTE | 2024-12-12 15:35 | CM.UR ---
RN CM NOTE: Pt provided w/[employer] information and list of local AL's. Pt voices appreciation. Mirtha CUENCA RN CM
[2024-12-12 20:42] VITALS: BP 139/72; PULSE 60; RESP 18; TEMP 36.4; O2SAT 98
[2024-12-12 21:31] VITALS: BP 139/72; PULSE 60
[2024-12-13] VITALS (8 sets, daily range): BP systolic 136–150; BP diastolic 61–78; PULSE 56–64; RESP 16–18; TEMP 36.4–36.7; O2SAT 96–100
--- NOTE | 2024-12-13 08:30 | PCM.PN.HOSP ---
Subjective Subjective Doing well, no issues overnight. Diarrhea has slowed down Objective Data Objective Data Vital Signs: Vital Signs Temp Pulse Resp BP Pulse Ox O2 Del Method 98.1 F 56 L 18 136/61 H 96 Room Air 12/13/24 05:28 12/13/24 05:28 12/13/24 05:28 12/13/24 05:28 12/13/24 05:28 12/13/24 05:28 Oxygen Delivery Method Room Air Weight: 200 lb 9.93 oz Body Mass Index (BMI) 28.8 Intake & Output: Intake and Output for Last 24 Hours 12/12/24 12/13/24 12/14/24 03:59 03:59 03:59 Intake Total 1100 / 1100 420 / 420 Output Total 1450 / 1450 1950 / 1950 600 / 600 Balance -350 / -350 -1530 / -1530 -600 / -600 Lab / Micro Data 12/12/24 03:55 12/12/24 03:55 Micro: Microbiology 12/11/24 07:20 Stool Clostridioides difficile (PCR) - Final 12/11/24 07:18 Stool Stool Occult Blood (CHERRY) - Final Occult Blood Positive Physical Exam Narrative General: Alert, Oriented x3, Cooperative, No apparent distress HEENT: Atraumatic, PERRLA, EOMI, Normocephalic Oral: Moist Mucosa Neck: Supple, No JVD Lungs: Diminished, Normal air movement, No rhonchi, No wheeze, No rales Cardiovascular: Regular rate, Regular Rhythm, Normal S1, Normal S2, No murmurs Abdomen: Soft, Non Tender, Non-Distended, No Hepato-splenomegaly Extremities: No edema, Capillary Refill Less than 3 Seconds Skin: No rashes, No breakdown Musculoskeletal: No Tenderness to Palpation of Joints or Extremities Neurological: No focal neurological deficits, moves all extremities, sensation intact Psych/Mental Status: Normal Affect, Appropriate Assessment & Plan Assessment/Plan (1) Colitis: (2) Diarrhea: PLAN: Plan 1. Recurrent colitis with diarrhea and bleeding/GERD ? His bleeding is not significant however we will hold Eliquis while here pending possible colonoscopy ? Will continue with clear liquid diet ? Appreciate GIs assistance, plan for colonoscopy on Saturday, hold Imodium and plan for prep today ? Will continue with his oral Augmentin that he was supposed to have on discharge. ? Since he has been ruled out for major infection ? Continue with PPI 2. Essential HTN/HLD/A-fib ? Will hold his Eliquis pending colonoscopy ? Continue with his home blood pressure medications ? Continue with his home cholesterol medications 3. Urinary retention ? He does have a Puente in place ? Continue with Flomax and will discontinue his dicyclomine ? Will attempt voiding trial prior to discharge 4. Hypothyroidism ? Stable ? Continue with Synthroid DVT: SCDs Charges/Coding Visit Charges Inpatient E&M: 70424 Disch Hosp >30min
[2024-12-13] MEDS: Polyethylene Glycol 3350 BOWEL PREP PO (16:00)
[2024-12-14] VITALS (15 sets, daily range): BP systolic 104–130; BP diastolic 48–80; PULSE 66–113; RESP 16–20; TEMP 36.4–37.2; O2SAT 94–99; BMI 28.8
--- NOTE | 2024-12-14 01:57 | EKG12_ITS ---
Test Reason : AM EKG Blood Pressure : */* mmHG Vent. Rate : 68 BPM Atrial Rate : 277 BPM P-R Int : * ms QRS Dur : 198 ms QT Int : 504 ms P-R-T Axes : * -73 100 degrees QTcB Int : 535 ms Ventricular-paced rhythm with frequent Premature ventricular complexes Abnormal ECG When compared with ECG of 07-Jul-2023 11:53, Premature ventricular complexes are now Present Vent. rate has increased by 7 bpm Confirmed by JUNAID AZEVEDO, KEL ([id number]), story editor KEVIN WANG ([id number]) on 12/14/2024 1:07:07 PM Referred By: DAVID Confirmed By: KEL QUIROGA MD
[2024-12-14] MEDS: 0.9% Saline Lock 10 ML Syringe IV (04:01)
--- NOTE | 2024-12-14 04:48 | NURSING ---
pts bm again still brown w/ flecks this am. last night pt had x2 enema but refused the third one. spoke to pt if we still need to do another enema or the Dr. castillo be able to do colonoscopy if his bm is not clear. pt agreed to do the third enema. noted yellow liquid stool after enema. pt still tying to have a bm again.
[2024-12-14 05:34] LABS: Hematocrit 31.2 % (40-54); Hemoglobin 10.9 g/dL (13.0-16.5); Immature Granulocytes Count 0.030 X10^3/uL (0.0-0.0); Mean Corp Hgb Conc 34.9 g/dL (32-36); Mean Corpuscular Volume 88.6 fL (80-94); Mean Platelet Vol. 10.7 fl (6.2-12.0); NRBC Flagged by Analyzer 0 % (0-5); Platelet Count 204 K/mm3 (150-450); RBC Distribution Width CV 13.2 % (11.6-14.6); RBC Distribution Width SD 43.0 fl (35.1-43.9); Red Blood Count 3.52 M/mm3 (4.6-6.2); White Blood Count 9.3 K/mm3 (4.4-11.0)
[2024-12-14 06:03] LABS: Anion Gap 10 (5-15); BUN 9 mg/dL (4-19); BUN/Creat Ratio 8.1 RATIO (10-20); Calcium,Total 8.1 mg/dL (7.6-11.0); Carbon Dioxide 21.3 mmol/L (21.0-32.0); Chloride 101 mmol/L (98-108); Estimated Creatinine Clearance 48.58 ml/min (50-250); Glucose 118 mg/dL (70-99); Potassium 3.4 mmol/L (3.3-5.1)
--- NOTE | 2024-12-14 08:07 | PN.HOSP_ITS ---
Subjective Subjective Doing well, prep went well yesterday. Plan for colonoscopy today Objective Data Objective Data Vital Signs: Vital Signs Temp Pulse Resp BP Pulse Ox O2 Del Method 98 F 113 H 18 128/72 H 96 Room Air 12/14/24 04:03 12/14/24 04:03 12/14/24 04:03 12/14/24 04:03 12/14/24 04:23 12/14/24 04:23 Oxygen Delivery Method Room Air Weight: 200 lb 14.4 oz Body Mass Index (BMI) 28.8 Intake & Output: Intake and Output for Last 24 Hours 12/13/24 12/14/24 12/15/24 03:59 03:59 03:59 Intake Total 420 / 420 1000 / 1000 Output Total 1950 / 1950 1200 / 1200 400 / 400 Balance -1530 / -1530 -200 / -200 -400 / -400 Lab / Micro Data 12/14/24 05:20 12/14/24 05:20 Labs: Laboratory Results - last 24 hr 12/14/24 05:20: WBC 9.3, RBC 3.52 L, Hgb 10.9 L, Hct 31.2 L, MCV 88.6, MCH 31.0, MCHC 34.9, RDW Std Deviation 43.0, RDW Coeff of Lisa 13.2, Plt Count 204, MPV 10.7, Immature Gran % (Auto) 0.300, Neut % (Auto) 78.4 H, Lymph % (Auto) 8.4 L, [place] % (Auto) 10.3 H, Eos % (Auto) 2.3, Baso % (Auto) 0.3, Absolute Neuts (auto) 7.3, Absolute Lymphs (auto) 0.78 L, Nucleated RBC % 0, Sodium 131 L, Potassium 3.4, Chloride 101, Carbon Dioxide 21.3, Anion Gap 10, BUN 9, Creatinine 1.17, E stim Creat Clear Calc 48.58 L, Est GFR (MDRD) Non-Af 60, BUN/Creatinine Ratio 8.1 L, Glucose 118 H, Calcium 8.1 Micro: Microbiology 12/11/24 07:20 Stool Clostridioides difficile (PCR) - Final 12/11/24 07:18 Stool Stool Occult Blood (CHERRY) - Final Occult Blood Positive Physical Exam Narrative General: Alert, Oriented x3, Cooperative, No apparent distress HEENT: Atraumatic, PERRLA, EOMI, Normocephalic Oral: Moist Mucosa Neck: Supple, No JVD Lungs: Diminished, Normal air movement, No rhonchi, No wheeze, No rales Cardiovascular: Regular rate, Regular Rhythm, Normal S1, Normal S2, No murmurs Abdomen: Soft, Non Tender, Non-Distended, No Hepato-splenomegaly Extremities: No edema, Capillary Refill Less than 3 Seconds Skin: No rashes, No breakdown Musculoskeletal: No Tenderness to Palpation of Joints or Extremities Neurological: No focal neurological deficits, moves all extremities, sensation intact Psych/Mental Status: Normal Affect, Appropriate Assessment & Plan Assessment/Plan (1) Colitis: (2) Diarrhea: PLAN: Plan 1. Recurrent colitis with diarrhea and bleeding/GERD ? His bleeding is not significant however we will hold Eliquis while here pending possible colonoscopy ? N.p.o. for colonoscopy today ? Appreciate GIs assistance ? Will continue with his oral Augmentin that he was supposed to have on discharge. ? Since he has been ruled out for major infection ? Continue with PPI 2. Essential HTN/HLD/A-fib ? Will hold his Eliquis pending colonoscopy ? Continue with his home blood pressure medications ? Continue with his home cholesterol medications 3. Urinary retention ? He does have a Puente in place ? Continue with Flomax and will discontinue his dicyclomine ? Will attempt voiding trial prior to discharge 4. Hypothyroidism ? Stable ? Continue with Synthroid DVT: SCDs Charges/Coding Visit Charges Inpatient E&M: 66246 Subs Hosp L2
--- NOTE | 2024-12-14 09:05 | CASEMGMT ---
TC to Dr. Ortega's office, appt cancelled this date and radiology receptionist aware pt is hospitalized. She states no appts available the rest of the week.
--- NOTE | 2024-12-14 11:22 | PCM.PRE.AN2 ---
ASA Classification* ASA Classification ASA Classification: 3 Assessment & Plan Anesthesia* Anesthesia Assessment Anesthesia Assessment: Discussed sedation and/or anesthesia options, risks, benefits, and alternatives with patient/parents/legal guardian/POA. Questions invited. The patient/parents/legal guardian/POA seems to understand and agrees to proceed with anesthesia plan. Reviewed the physical assessment, medical history, allergy history and patient home medications list prior to surgery/procedure/anesthetic and documented any changes. Performed airway and anesthesia risk assessments. Anesthesia Type Anesthesia Type: MAC (Pacemaker present.) Anesthesia Focused Assessment* Temperature: 99.0 F Pulse Rate: 93 Blood Pressure: 121/64 Respiratory Rate: 18 Pulse Ox: 97 Airway Assessment Mouth opens: >3 cm Mallampati Score: II Labs Anesthesia Preop lab: CBC WBC 9.3 K/mm3 (4.4-11.0) 12/14/24 05:20 12/14/24 RBC 3.52 M/mm3 (4.6-6.2) L 12/14/24 05:20 12/14/24 Hgb 10.9 g/dL (13.0-16.5) L 12/14/24 05:20 12/14/24 Hct 31.2 % (40-54) L 12/14/24 05:20 12/14/24 Plt Count 204 K/mm3 (150-450) 12/14/24 05:20 12/14/24 CHEMISTRY Potassium 3.4 mmol/L (3.3-5.1) 12/14/24 05:20 12/14/24 Sodium 131 mmol/L (133-145) L 12/14/24 05:20 12/14/24 Magnesium 1.9 mg/dL (1.5-2.2) 11/11/24 18:56 11/11/24 Phosphorus 3.2 mg/dL (2.7-4.5) 11/11/24 18:56 11/11/24 BUN 9 mg/dL (4-19) 12/14/24 05:20 12/14/24 Creatinine 1.17 mg/dL (0.70-1.20) 12/14/24 05:20 12/14/24 Glucose 118 mg/dL (70-99) H 12/14/24 05:20 12/14/24 POC Glucose 186 mg/dL (74-106) H 11/14/24 11:06 11/14/24 TSH 2.130 uIU/mL (0.300-4.200) 10/22/24 12:28 10/22/24 COAG PT 16.9 SECONDS (11.7-14.9) H 12/21/21 14:37 12/21/21 Pre-Assessment Diagnosis/Proposed Procedure Planned Operative Procedure(s): Colonoscopy Anesthesia History 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 When Was Last Pacemaker Check QUESTION #4 FULL TEXT: You/Your Family Experience fever (hyperthermia) with Anesthesia Last Oral Intake Last Oral intake: Last Oral Intake NPO since 00:00 12/14/24 04:51 Meds taken in AM with sips of No 12/14/24 04:51 water? Meds patient instructed to take am of surgery PONV PONV - purifying plant operator: PONV - purifying plant operator Female HX of Motion Sickness HX of N/V After Surgery Non-Smoker Duration of Surgery greater than 60 minutes Number of Risk Factors PONV Score Height & Weight Height & Weight: Anesthesia: Height & Weight Height 5 ft 10 in 12/14/24 04:51 Weight: 91.127 kg 12/14/24 04:51 Body Mass Index (BMI) 28.8 12/14/24 04:51 Respiratory Assessment Respiratory Assessment - purifying plant operator: Respiratory Tract Infection Hx - purifying plant operator Hx Respiratory Tract Infection No 12/14/24 06:00 STOP Sleep Apnea STOP Sleep Apnea - purifying plant operator: STOP Sleep Apnea - purifying plant operator Hx Hypertension Yes 12/11/24 13:26 Hx Sleep Apnea No 12/11/24 13:26 CPAP No 12/11/24 13:26 BIPAP No 12/11/24 13:26 Do you snore loudly (louder No 12/11/24 13:26 than talking or can be heard Do you often feel tired/ No 12/11/24 13:26 fatigued/ sleepy during daytime? Has anyone observed you stop No 12/11/24 13:26 breathing during sleep? STOP Results Negative 12/11/24 13:26 QUESTION #5 FULL TEXT : Do you snore loudly (louder than talking or can be heard through closed doors)? 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 Specify any problems Hx of Preganancy in last 3 N/A 12/11/24 13:26 Months Nurse Filling Out Transfusion NMARTY 12/11/24 13:26 & Questions: Date: 12/11/24 12/11/24 13:26 Time: 13:35 12/11/24 13:26 Patient unable to answer at this time (ie. confused, unrespo /Reproduction History /Reproductive History - purifying plant operator: /Reproductive Hx- purifying plant operator Hx Now na 12/14/24 06:00 Gestational Age (in weeks): EDC: Hx Hx Para Hx Section SAB Active Medications Active Medications: Current Medications Generic Name Dose Route Start Last Admin Trade Name Freq PRN Reason Stop Dose Admin Acetaminophen 650 mg 12/12/24 15:57 12/12/24 16:37 Acetaminophen 325 Mg Tablet PO 650 mg Q6H PRN PRN Administration Pain 1-10 or Fever Amlodipine Besylate 5 mg 12/12/24 10:00 12/14/24 08:13 Amlodipine 5 Mg Tablet PO 5 mg DAILY JOAN Administration Protocol Amoxicillin/Clavulanate Potassium 875 mg 12/11/24 22:00 12/14/24 08:14 Amox/Clavulanate 875 Mg Tablet PO 875 mg BID JOAN Administration Calamine/Phenol 1 applic 12/13/24 15:59 12/14/24 08:14 Menthol/Lanolin/Calamine/Znox 113 Gm Tube TOPICAL 1 applic 4X/DAY JOAN Administration Protocol Sodium Chloride 250 mls @ 15 mls/hr 12/11/24 13:39 IV .[id number] PRN Saline Flush Sodium Chloride 250 mls @ 15 mls/hr 12/11/24 13:39 IV .[id number] PRN Additional IVPB Infusion Lactated Ringer's 1,000 mls @ 15 mls/hr 12/14/24 11:15 IV .Q48H JOAN Levothyroxine Sodium 25 mcg 12/12/24 06:00 12/14/24 06:00 Levothyroxine 25 Mcg Tablet PO Not Given DAILY@0600 [facility] Losartan Potassium 100 mg 12/11/24 13:12 12/14/24 08:13 Losartan Potassium 100 Mg Tablet PO 100 mg DAILY JOAN Administration Protocol Metoprolol Tartrate 25 mg 12/11/24 22:00 12/14/24 08:13 Metoprolol Tartrate 25 Mg Tablet PO 25 mg BID JOAN Administration Protocol Pantoprazole Sodium 40 mg 12/12/24 10:00 12/14/24 08:13 Pantoprazole Sodium 40 Mg Tablet PO 40 mg DAILY JOAN Administration Pravastatin Sodium 40 mg 12/11/24 22:00 12/13/24 21:11 Pravastatin 40 Mg Tablet PO 40 mg QHS JOAN Administration Sodium Chloride 10 - 40 ml 12/11/24 13:39 12/14/24 04:01 0.9% Saline Lock 10 Ml Syringe IV 10 ml UD PRN Administration SALINE FLUSH Tamsulosin HCl 0.4 mg 12/11/24 17:30 12/13/24 16:53 Tamsulosin Hcl 0.4 Mg Capsule PO 0.4 mg DAILY@1730 [facility] Administration [facility] Medical History Pacemaker Occult GI bleeding NSVT (nonsustained ventricular tachycardia) Aortic aneurysm without rupture Non-smoker Sleep apnea Atrial fibrillation Hypertension Chronic renal insufficiency, stage III (moderate) Closed head injury Fall Longstanding persistent atrial fibrillation Obstructive sleep apnea Right bundle branch block (RBBB) with left anterior fascicular block Left ventricular diastolic dysfunction Obesity Essential (primary) hypertension Nonrheumatic mitral (valve) insufficiency Non-rheumatic tricuspid valve insufficiency Paroxysmal atrial fibrillation Hyperlipidemia Diverticulosis Type 2 diabetes mellitus Diverticulitis large intestine Diverticula of colon Home Medications ?Medication ?Instructions ?Recorded ?Last Taken ?Type levothyroxine 25 mcg tablet 25 mcg PO DAILY 02/20/24 Unknown History apixaban 2.5 mg tablet 2.5 mg PO BID blood thinner #60 03/27/24 Unknown Rx tabs amlodipine 5 mg tablet 5 mg PO DAILY #90 tabs 03/31/24 Unknown Rx losartan 100 mg tablet 100 mg PO QDAY 03/31/24 Unknown History metoprolol tartrate 25 mg tablet 25 mg PO BID #180 tabs 08/18/24 Unknown Rx dicyclomine 20 mg tablet 20 mg PO TID #30 tabs 11/14/24 Unknown Rx loperamide 2 mg capsule 2 mg PO TID PRN Diarrhea 11/25/24 Unknown History pravastatin 40 mg tablet 40 mg PO QHS cholesterol 11/26/24 Unknown History tamsulosin 0.4 mg capsule 0.4 mg PO DAILY@1730 #30 caps 12/08/24 Unknown Rx amoxicillin 875 mg-potassium 1 tab PO BID 12/11/24 Unknown History clavulanate 125 mg tablet pantoprazole 40 mg tablet,delayed 40 mg PO DAILY PRN indigestion 12/11/24 Unknown History release Allergy/AdvReac Type Severity Reaction Status Date / Time codeine AdvReac Other Verified 12/11/24 06:35 lisinopril AdvReac Other Verified 12/11/24 06:35 Family History Father CVA (cerebral vascular accident) Mother Diabetes Sister Heart disease PPM Surgical History History of appendectomy History of cataract surgery History of tonsillectomy H/O hemicolectomy Hx of cholecystectomy Social History household members: none housing: long-term Smoking Status: Former smoker Smokeless tobacco user: other alcohol intake: current alcohol intake frequency: holidays/special occasions only substance use type: does not use Review of Systems (Anesthesia) ROS Narrative System reviewed and no additional complaints, except as documented.
[2024-12-14] MEDS: Lactated Ringers 1,000 ML 15 ML IV (11:27)
--- NOTE | 2024-12-14 12:23 | PN_ITS ---
Progress Note Patient completed his prep last night but did not get completely empty. He got 3 soapsuds enemas overnight. His last stool was yellow. Physical Exam Const alert, oriented x3, no apparent distress and healthy appearing General Appearance: cooperative GI normal to inspection, nondistended, normoactive bowel sounds, soft to palpation, non-tender and non-distended Percussion: normal to percussion Rectal Exam: deferred Assessment & Plan Assessment/Plan (1) Colitis: (2) Diarrhea: (3) GI bleed: PLAN: 89-year-old male presents with recurrent diarrhea and occult positive stools, with a CT scan showing evidence of colitis. Considering his age, the differential diagnosis for colitis with bloody diarrhea is broad and includes:? * Infectious colitis:?Due to organisms such as?Salmonella,?Shigella,? Campylobacter, and?E. coli?O157:H7. His enteric pathogens and C. difficile was negative. * Ischemic colitis:?More common in elderly individuals due to localized episodes of nonocclusive ischemia. * Inflammatory bowel disease (IBD):?Although less common to manifest in older age, ulcerative colitis or Crohn's colitis should be considered. * Diverticulitis:?Inflammation of diverticula in the colon can cause bloody stools and diarrhea. * Colorectal Cancer:?Particularly important to consider given the occult blood in the stool.? Plan * Further Investigations: * Colonoscopy:?To visualize the colon mucosa, obtain biopsies for histological analysis, and rule out malignancy and other inflammatory conditions. Patient should prep on 12/12 and 12/13 as he has large stool burden for colonoscopy on 12/14/2024`. * Symptomatic Management: * Hydration:?Emphasize adequate fluid intake to prevent dehydration associated with diarrhea. * Diet:?Recommend a bland, low-residue diet, avoiding potential trigger foods like spicy or dairy products (if lactose intolerant). * Treatment: * Hold anti-diarrheal agents until he undergoes a colonoscopy * Colitis-specific treatment:?Depending on the colonoscopy findings and confirmed diagnosis treatment with specific medications may be necessary. 12/14/24-patient was explained alternatives, risk and benefits good understanding bleeding, fracture, subs, perforation, differentiated. He will have an ASA of 3. Visit Charges Inpatient E&M: 86610 Subs Hosp L3
--- NOTE | 2024-12-14 12:58 | PCM.POST.ANE ---
Anesthesia: Postop Eval I Current Vital Signs Temperature: 98.3 F Pulse Rate: 67 Blood Pressure: 104/48 Respiratory Rate: 16 Pulse Ox: 97 Oxygen Delivery Method: Room Air Assessment Airway patent: Yes Spontaneous unlabored respirations: Yes Mental status: Asleep nausea: No Vomiting: No Anesthesia Complication: No Fluid Hydration Crystalloid volume administer (ml): 400 Total IV fluid infused: 400 Progress Note Anesthesia document: Postop Eval 1 completed: Yes
--- NOTE | 2024-12-14 13:02 | OP.COLON_ITS ---
Patient Name: Shayne Biggs Procedure Date: 12/14/2024 12:30 PM Date of : 1935 Age: 89 Procedure: Colonoscopy Indications: Hematochezia, Heme positive stool, Gastrointestinal bleeding, Abnormal CT of the GI tract Providers: Alex Atkinson DO Medicines: Monitored Anesthesia Care Patient Profile: This is an 89 year old male. Refer to note in patient chart for documentation of history and physical. Last Colonoscopy: more than 10 years ago. Complications: No immediate complications. Procedure: Pre-Anesthesia Assessment: - Prior to the procedure, a History and Physical was performed, and patient medications and allergies were reviewed. The patient is competent. The risks and benefits of the procedure and the sedation options and risks were discussed with the patient. All questions were answered and informed consent was obtained. Patient identification and proposed procedure were verified by the physician in the pre-procedure area. Mental Status Examination: alert and oriented. Airway Examination: normal oropharyngeal airway and neck mobility. Respiratory Examination: clear to auscultation. CV Examination: normal. Prophylactic Antibiotics: The patient does not require prophylactic antibiotics. Prior Anticoagulants: The patient has taken no anticoagulant or antiplatelet agents except for NSAID medication. ASA Grade Assessment: II - A patient with mild systemic disease. After reviewing the risks and benefits, the patient was deemed in satisfactory condition to undergo the procedure. The anesthesia plan was to use monitored anesthesia care (MAC). Immediately prior to administration of medications, the patient was re-assessed for adequacy to receive sedatives. The heart rate, respiratory rate, oxygen saturations, blood pressure, adequacy of pulmonary ventilation, and response to care were monitored throughout the procedure. The physical status of the patient was re-assessed after the procedure. After I obtained informed consent, the scope was passed under direct vision. Throughout the procedure, the patient's blood pressure, pulse, and oxygen saturations were monitored continuously. The Colonoscope was introduced through the anus and advanced to the hepatic flexure. The colonoscopy was performed without difficulty. The patient tolerated the procedure well. The quality of the bowel preparation was poor. The rectum was photographed. Scope In: 12:35:24 PM Scope Out: 12:46:14 PM Total Procedure Duration Time 0 hours 10 minutes 50 seconds Findings: The perianal and digital rectal examinations were normal. Multiple small and large-mouthed diverticula were found in the entire colon. A large amount of stool was found in the rectum, in the recto-sigmoid colon, in the sigmoid colon, in the descending colon, at the splenic flexure, at the hepatic flexure, in the ascending colon and in the cecum, interfering with visualization. Lavage of the area was performed using greater than 500 mL of sterile water, resulting in incomplete clearance with continued poor visualization. Impression: - Preparation of the colon was poor. - Diverticulosis in the entire examined colon. - Stool in the rectum, in the recto-sigmoid colon, in the sigmoid colon, in the descending colon, at the splenic flexure, at the hepatic flexure, in the ascending colon and in the cecum. - No specimens collected. Recommendation: - [facility]. - Resume regular diet. - Continue present medications. - No repeat colonoscopy due to age. Procedure Code(s): --- Professional --- 85426, 53, Colonoscopy, flexible; diagnostic, including collection of specimen(s) by brushing or washing, when performed (separate procedure) CPT copyright 2021 [employer]. All rights reserved. The codes documented in this report are preliminary and upon manufacturing job titles review may be revised to meet current compliance requirements. Alex Atkinson DO 12/14/2024 1:02:10 PM This report has been signed electronically. Number of Addenda: 0 Note Initiated On: 12/14/2024 12:30 PM
--- NOTE | 2024-12-14 13:02 | OP.PROVAT_ITS ---
12/14/2024 Bernard Nugent MD [address] [place] [address] Re : Colonoscopy procedure for Shayne Kalyan Dear Dr. Nugent This procedure was performed on Saturday, December 14, 2024. My impressions and recommendations are as follows: Impressions : - Preparation of the colon was poor. - Diverticulosis in the entire examined colon. - Stool in the rectum, in the recto-sigmoid colon, in the sigmoid colon, in the descending colon, at the splenic flexure, at the hepatic flexure, in the ascending colon and in the cecum. - No specimens collected. Recommendations : - Return [facility] to [facility] for [facility] care. - Resume regular diet. - Continue present medications. - No repeat colonoscopy due to age. My findings are described in the full procedure note, which is enclosed. If I can be of further assistance, please feel free to contact me at . Sincerely, Alex Atkinson, 12/14/2024 1:02:10 PM This report has been signed electronically.
--- NOTE | 2024-12-14 13:49 | PCM.POSTANE2 ---
Anesthesia Postop Eval I Sum Postop Eval Completion status Anesthesia document: Postop Eval 1 completed: Yes Anesthesia Postop Eval I Summary Anesthesia Postop Eval I Summary: Anesthesia Postop Eval I: Assessment Summary Airway patent Yes 12/14/24 12:58 [email or web address] Spontaneous unlabored Yes 12/14/24 12:58 [email or web address] respirations Mental status Asleep 12/14/24 12:58 [email or web address] nausea No 12/14/24 12:58 [email or web address] Vomiting No 12/14/24 12:58 [email or web address] Anesthesia Postop Eval I: Fluid Summary Crystalloid volume administer 400 12/14/24 12:58 [email or web address] (ml) Colloids volume administered ( ml) Blood Product volume administered (ml) Total IV fluid infused 400 12/14/24 12:58 [email or web address] Anesthesia Postop Eval I: Summary Notes Anesthesia Complication No 12/14/24 12:58 [email or web address] Anesthesia Complication Comment: Post-operative progress note Anesthesia: Postop Eval II Evaluation Mental status: Awake Pain Level: 0 nausea: No Vomiting: No
[2024-12-14] MEDS: MELATONIN 3 MG TABLET PO (23:30)
[2024-12-15 05:39] VITALS: BP 124/52; PULSE 70; RESP 17; TEMP 37; O2SAT 95
--- NOTE | 2024-12-15 08:20 | DCINST_ITS ---
Discharge Instructions DC O2, CPAP, BIPAP needs Home O2 Discharge instructions: No Dressing / Incision Discharge Activity: Return to Normal Activity Dressing / Incision Call your doctor if you observe: Fever of 101 or Higher, Shortness of breath, Dizziness, Fainting spells, Swelling in the ankles, Chest pain and Increased palpitations (irregular heartbeat) Follow Up Care Test Results: Test results from this visit will be discussed in further detail at your follow- up appointment, if applicable. Discharge Plan Admission Admit Date/Time: 12/11/24 12:14 Attending Provider: Renzo Damon Primary Care Provider: Bernard Nugent Chi Discharge Orders/Prescriptions Prescriptions: New sennosides-docusate sodium [Senna with Docusate Sodium] 8.6-50 mg tablet 1 tab-cap PO QHS Qty: 30 0RF Continued losartan 100 mg tablet 100 mg PO QDAY amlodipine 5 mg tablet 5 mg PO DAILY Qty: 90 3RF pravastatin 40 mg tablet 40 mg PO QHS Patient Comments: CHOLESTEROL levothyroxine 25 mcg tablet 25 mcg PO DAILY tamsulosin 0.4 mg Capsule 0.4 mg PO DAILY@1730 Qty: 30 2RF pantoprazole 40 mg tablet,delayed release (DR/EC) 40 mg PO DAILY PRN (Reason: indigestion) dicyclomine 20 mg tablet 20 mg PO TID Qty: 30 0RF apixaban 2.5 mg tablet 2.5 mg PO BID Qty: 60 1RF metoprolol tartrate 25 mg tablet 25 mg PO BID Qty: 180 3RF Discontinued loperamide 2 mg capsule 2 mg PO TID PRN (Reason: Diarrhea) Rx Instructions: You may take loperamide 2 to 4 mg 3 times a day as needed for loose stools and diarrhea amoxicillin-pot clavulanate 875-125 mg tablet 1 tab PO BID Referrals / Follow Up: Bernard Nugent Chi, MD [Primary Care Provider] - Within 1 Week Disposition Disposition (needs filled in before D/C Order can be placed): Home, Self Care
[2024-12-15 08:33] VITALS: BP 133/72; PULSE 72; RESP 18; TEMP 36.6; O2SAT 98
--- NOTE | 2024-12-15 09:18 | CASEMGMT ---
Addendum entered by Milady Chand 12/15/24 10:22: Received returned call from Tracie at [facility], they plan to see pt tomorrow. Addendum entered by Milady Chand 12/15/24 09:44: NICOLE BARKLEY into pt room, pt sitting on eob getting ready to eat breakfast with nurse present. Pt is aware of f/u appt and that [facility]HC will resume. Pt aware of van pickup and is agreeable to this. Pt denies any further needs at this time. Pt states his neighbor will continue to come day and night to empty catheter bag. Original Note: TC to [facility], left vm that pt is dc'ing this date. TC to Dr. Ortega's office, rescheduled appt for 12/21/24 at 9:45 am. TC to [facility] transportation, set up a pickup at 9am and return home at 11am. All information placed on dc instructions.
[2024-12-15 09:35] VITALS: PULSE 72
--- NOTE | 2024-12-15 10:04 | PHA.DC.MC.R ---
Pharmacy [facility] Counseling Pharmacy Service has performed discharge medication reconciliation and counseling for this patient. 1. SENNA/DOCUSATE 1T PO QHS 2. STOP IMODIUM AND AUGMENTIN The patient's discharge medication list was reviewed for discrepancies and discrepancies were resolved. The patient was counseled on the following discharge medications and changes in medications for homegoing were reviewed. The Reason for Use, instructions for use, and potential side effects were reviewed for all new medications. The patient's questions regarding all of their medications were answered. The patient was able to verbally demonstrate an understanding of their discharge medications. Medications at Discharge Home Medications levothyroxine 25 mcg tablet 25 mcg PO DAILY 02/20/24 apixaban 2.5 mg tablet 2.5 mg PO BID blood thinner #60 tabs 03/27/24 amlodipine 5 mg tablet 5 mg PO DAILY #90 tabs 03/31/24 losartan 100 mg tablet 100 mg PO QDAY 03/31/24 metoprolol tartrate 25 mg tablet 25 mg PO BID #180 tabs 08/18/24 dicyclomine 20 mg tablet 20 mg PO TID #30 tabs 11/14/24 pravastatin 40 mg tablet 40 mg PO QHS cholesterol 11/26/24 tamsulosin 0.4 mg capsule 0.4 mg PO DAILY@1730 #30 caps 12/08/24 pantoprazole 40 mg tablet,delayed release 40 mg PO DAILY PRN indigestion 12/11/24 sennosides 8.6 mg-docusate sodium 50 mg tablet (Senna with Docusate Sodium) 1 tab-cap PO QHS #30 tabs 12/15/24
--- NOTE | 2024-12-15 12:12 | DS.PCM_ITS ---
Providers Date of Admission: 12/11/24 Primary Care Physician: Dr. Bernard Nugent MD Consultations 12/11/24 13:12 Consult: Gastroenterology Routine Consulting Provider: [facility] Reason for Consult: Diarrhea and GI bleed EMERGENT Consult: No MD Notified: Yes Date Notified: 12/11/24 Time Notified: 13:15 Method of Notification: Text Reason For Visit: DIARRHEA WITH GI BLEED Diagnosis Discharge Diagnosis (1) Colitis: Status: Acute Code(s): K52.9 - Noninfective gastroenteritis and colitis, unspecified (2) Diarrhea: Status: Acute Code(s): R19.7 - Diarrhea, unspecified (3) GI bleed: Status: Acute Code(s): K92.2 - Gastrointestinal hemorrhage, unspecified Medications at Discharge Home Medications levothyroxine 25 mcg tablet 25 mcg PO DAILY 02/20/24 apixaban 2.5 mg tablet 2.5 mg PO BID blood thinner #60 tabs 03/27/24 amlodipine 5 mg tablet 5 mg PO DAILY #90 tabs 03/31/24 losartan 100 mg tablet 100 mg PO QDAY 03/31/24 metoprolol tartrate 25 mg tablet 25 mg PO BID #180 tabs 08/18/24 pravastatin 40 mg tablet 40 mg PO QHS cholesterol 11/26/24 tamsulosin 0.4 mg capsule 0.4 mg PO DAILY@1730 #30 caps 12/08/24 pantoprazole 40 mg tablet,delayed release 40 mg PO DAILY PRN indigestion 12/11/24 sennosides 8.6 mg-docusate sodium 50 mg tablet (Senna with Docusate Sodium) 1 tab-cap PO QHS #30 tabs 12/15/24 Hospital Course Operations None Procedures Colonoscopy Summary of Care Provided Minutes Spent on Discharge: 33 Hospital Course: Per HPI: ASHIA PEREZ, is a 89 M who presents with recurrent diarrhea and occult positive stools. He was recently admitted from 12/03/2024 and discharged on 12/08/2024 with episodes of diarrhea and urinary retention. Stool studies were negative for C. difficile and stool studies today on admission in the ER were also negative for C. difficile. He is afebrile but was having some discomfort with the frequency of his diarrhea at home. Initially he did not want to have a colonoscopy done while here however he agreed to have a colonoscopy on this admission as he lives alone and is blind with macular degeneration and was having trouble managing at home. There was an attempt on his previous admission to get him to go to a residential however he and his family refused. Hemoglobin is stable so bleeding is likely due to fissuring or excoriation from his diarrhea. He denies any fevers or chills, no nausea or vomiting, no abdominal pain. Hospital Course: 1. Recurrent diarrhea with positive blood/GERD?89-year-old male with history of macular degeneration lives at home alone and refuses residential placement presented to the hospital after discharge with recurrent diarrhea. CT scan of his abdomen pelvis shows a large stool burden with no obvious signs of colitis other than the stercoral colitis. He was placed on clear liquid diet and gastroenterology was consulted. They performed a colonoscopy with low visualization due to poor prep and stool burden however they did not find any active signs of bleeding but given his large burden of diverticuli it was felt that it was a diverticular bleed in origin. Will discontinue Augmentin and will have him follow-up with gastroenterology on discharge if necessary. Given his large stool burden it is possible that his diarrhea is just an overflow diarrhea so I discontinued his Imodium on discharge and placed him on a stool softener as needed. He is on chronic anticoagulation for A-fib which does worsen his bleeding when it occurs. I discussed with him the plan for discharge today he expressed understanding of the risks and benefits of going home and would like to go home today. 2. Essential hypertension, hyperlipidemia, A-fib, urinary retention are chronic medical problems which complicate his care. His home medications were continued where appropriate. Recommend discontinuation of dicyclomine and outpatient follow-up with urology. Physical Exam Narrative General: Alert, Oriented x3, Cooperative, No apparent distress HEENT: Atraumatic, PERRLA, EOMI, Normocephalic Oral: Moist Mucosa Neck: Supple, No JVD Lungs: Diminished, Normal air movement, No rhonchi, No wheeze, No rales Cardiovascular: Regular rate, Regular Rhythm, Normal S1, Normal S2, No murmurs Abdomen: Soft, Non Tender, Non-Distended, No Hepato-splenomegaly Extremities: No edema, Capillary Refill Less than 3 Seconds Skin: No rashes, No breakdown Musculoskeletal: No Tenderness to Palpation of Joints or Extremities Neurological: No focal neurological deficits, moves all extremities, sensation intact Psych/Mental Status: Normal Affect, Appropriate Weight / BMI Weight Weight: 200 lb 14.4 oz Body Mass Index (BMI) 28.8 ABG / Lab / Microbiology Data 12/14/24 05:20 12/14/24 05:20 Microbiology: Microbiology 12/11/24 07:20 Stool Clostridioides difficile (PCR) - Final 12/11/24 07:18 Stool Stool Occult Blood (CHERRY) - Final Occult Blood Positive D/C Instructions Call your doctor if you observe: Fever of 101 or Higher, Shortness of breath, Dizziness, Fainting spells, Swelling in the ankles, Chest pain and Increased palpitations (irregular heartbeat) DC O2, CPAP, BIPAP Needs Home O2 Discharge instructions: No Meaningful Use Info Meaningful Use Meaningful Use Diagnoses (Choose all that apply): None applicable Discharge Plan Admission Admit Date/Time: 12/11/24 12:14 Attending Provider: Renzo Damon Primary Care Provider: Bernard Nugent Chi Discharge Orders/Prescriptions Prescriptions: New sennosides-docusate sodium [Senna with Docusate Sodium] 8.6-50 mg tablet 1 tab-cap PO QHS Qty: 30 0RF Continued losartan 100 mg tablet 100 mg PO QDAY amlodipine 5 mg tablet 5 mg PO DAILY Qty: 90 3RF pravastatin 40 mg tablet 40 mg PO QHS Patient Comments: CHOLESTEROL levothyroxine 25 mcg tablet 25 mcg PO DAILY tamsulosin 0.4 mg Capsule 0.4 mg PO DAILY@1730 Qty: 30 2RF pantoprazole 40 mg tablet,delayed release (DR/EC) 40 mg PO DAILY PRN (Reason: indigestion) apixaban 2.5 mg tablet 2.5 mg PO BID Qty: 60 1RF metoprolol tartrate 25 mg tablet 25 mg PO BID Qty: 180 3RF Discontinued loperamide 2 mg capsule 2 mg PO TID PRN (Reason: Diarrhea) Rx Instructions: You may take loperamide 2 to 4 mg 3 times a day as needed for loose stools and diarrhea amoxicillin-pot clavulanate 875-125 mg tablet 1 tab PO BID dicyclomine 20 mg tablet 20 mg PO TID Qty: 30 0RF Referrals / Follow Up: Shahram Ortega MD [Med Staff - Active Staff] - 12/21/24 9:45 am (The hospital van will pick you up at 9am for the appointment. They can take you home at 11am. ) Bernard Nugent Chi, MD [Primary Care Provider] - Within 1 Week Disposition Disposition (needs filled in before D/C Order can be placed): Home Health Service Charges/Coding Visit Charges Inpatient E&M: 26009 Disch Hosp >30min
== END 2024-12-15 12:03 | disposition home health service (06) | DRG 378 ==
LOC: ED 12:39 → MS3 12:40
PROVIDERS: Internal Medicine Gastroenterology; Admitting Provider Family Medicine; Emergency Provider Emergency Medicine; PCP Family Medicine Geriatric Medicine; Visit Provider Family Medicine
PROC: 0DJD8ZZ Inspection of Lower Intestinal Tract, Via Natural or Artificial Opening Endoscopic (ICD-10-PCS; CPT 45378; principal; 2024-12-14 12:10)
DX: K57.31 Diverticulosis of large intestine without perforation or abscess with bleeding (principal); I45.2 Bifascicular block; D68.32 Hemorrhagic disorder due to extrinsic circulating anticoagulants; N18.30 Chronic kidney disease, stage 3 unspecified; E11.22 Type 2 diabetes mellitus with diabetic chronic kidney disease; E03.9 Hypothyroidism, unspecified; I12.9 Hypertensive chronic kidney disease with stage 1 through stage 4 chronic kidney disease, or unspecified chronic kidney disease; I48.91 Unspecified atrial fibrillation; K21.9 Gastro-esophageal reflux disease without esophagitis; E78.5 Hyperlipidemia, unspecified; H53.8 Other visual disturbances; H35.30 Unspecified macular degeneration; G47.33 Obstructive sleep apnea (adult) (pediatric); K52.89 Other specified noninfective gastroenteritis and colitis; R19.7 Diarrhea, unspecified; Z79.01 Long term (current) use of anticoagulants; Z83.3 Family history of diabetes mellitus; Z79.899 Other long term (current) drug therapy; Z87.891 Personal history of nicotine dependence; R33.9 Retention of urine, unspecified; Z90.49 Acquired absence of other specified parts of digestive tract
CPT/HCPCS: 74174; 80048; 80053; 81001; 82274; 83605; 83690; 85025; 87493; 93005; 99285; Q9967; A4216; J2405

== ENCOUNTER 2024-12-17 03:14 | Inpatient (IN) | payer MEDICARE, SELFPAY ==
[2024-12-17] VITALS (11 sets, daily range): BP systolic 132–155; BP diastolic 61–80; PULSE 59–91; RESP 14–18; TEMP 36.4–36.7; O2SAT 95–100; BMI 28.7; BMI 27.6
[2024-12-17 03:43] LABS: Hematocrit 32.0 % (40-54); Hemoglobin 11.5 g/dL (13.0-16.5); Immature Granulocytes Count 0.070 X10^3/uL (0.0-0.0); Mean Corp Hgb Conc 35.9 g/dL (32-36); Mean Corpuscular Volume 88.4 fL (80-94); Mean Platelet Vol. 10.8 fl (6.2-12.0); NRBC Flagged by Analyzer 0 % (0-5); Platelet Count 202 K/mm3 (150-450); RBC Distribution Width CV 13.3 % (11.6-14.6); RBC Distribution Width SD 43.6 fl (35.1-43.9); Red Blood Count 3.62 M/mm3 (4.6-6.2); White Blood Count 13.6 K/mm3 (4.4-11.0)
[2024-12-17 04:13] LABS: AST(SGOT) 19 U/L (<=37); Alanine Aminotransfer ALT/SGPT 14 U/L (<=46); Albumin, Serum 3.6 g/dL (3.4-4.8); Alkaline Phosphatase 141 U/L (40-129); Anion Gap 12 (5-15); BUN 12 mg/dL (4-19); BUN/Creat Ratio 8.2 RATIO (10-20); Calcium,Total 8.4 mg/dL (7.6-11.0); Carbon Dioxide 20.6 mmol/L (21.0-32.0); Chloride 100 mmol/L (98-108); Estimated Creatinine Clearance 38.85 ml/min (50-250); Globulin 3.0 g/dL (2.2-4.2); Glucose 122 mg/dL (70-99); Magnesium 1.8 mg/dL (1.5-2.2); Potassium 4.2 mmol/L (3.3-5.1)
[2024-12-17] MEDS: 0.9% Normal Saline (1000mL) 1,000 ML 75 ML IV (11:01)
[2024-12-17] MEDS: APIXABAN 2.5 MG TABLET (WCH) PO ×2 (12:57→22:18)
[2024-12-17] MEDS: Polyethylene Glycol 3350 17 GM PACKET PO (12:58)
[2024-12-17] MEDS: MELATONIN 10 MG TABLET 5 MG PO (22:25)
[2024-12-18] VITALS (7 sets, daily range): BP systolic 119–156; BP diastolic 55–73; PULSE 59–600; RESP 16–18; TEMP 36.2–36.6; O2SAT 98–100
[2024-12-18] MEDS: 0.9% Normal Saline (1000mL) 1,000 ML 75 ML IV ×2 (00:29→14:43)
[2024-12-18 06:00] LABS: Hematocrit 28.2 % (40-54); Hemoglobin 10.0 g/dL (13.0-16.5); Immature Granulocytes Count 0.050 X10^3/uL (0.0-0.0); Mean Corp Hgb Conc 35.5 g/dL (32-36); Mean Corpuscular Volume 88.4 fL (80-94); Mean Platelet Vol. 10.9 fl (6.2-12.0); NRBC Flagged by Analyzer 0 % (0-5); Platelet Count 179 K/mm3 (150-450); RBC Distribution Width CV 13.2 % (11.6-14.6); RBC Distribution Width SD 43.3 fl (35.1-43.9); Red Blood Count 3.19 M/mm3 (4.6-6.2); White Blood Count 10.4 K/mm3 (4.4-11.0)
[2024-12-18 06:42] LABS: Anion Gap 8 (5-15); BUN 10 mg/dL (4-19); BUN/Creat Ratio 8.2 RATIO (10-20); Calcium,Total 7.7 mg/dL (7.6-11.0); Carbon Dioxide 22.0 mmol/L (21.0-32.0); Chloride 105 mmol/L (98-108); Estimated Creatinine Clearance 42.73 ml/min (50-250); Glucose 93 mg/dL (70-99); Potassium 3.6 mmol/L (3.3-5.1)
[2024-12-18] MEDS: APIXABAN 2.5 MG TABLET (WCH) PO ×2 (10:37→21:29)
[2024-12-18] MEDS: Senna/Docusate Sodium 1 Tablet PO (10:40)
[2024-12-18] MEDS: Polyethylene Glycol 3350 17 GM PACKET PO ×2 (10:40→21:28)
[2024-12-19 03:41] VITALS: BP 128/67; PULSE 61; RESP 18; TEMP 35.9; O2SAT 95
[2024-12-19] MEDS: 0.9% Normal Saline (1000mL) 1,000 ML 75 ML IV (04:03)
[2024-12-19 07:28] LABS: Hematocrit 29.7 % (40-54); Hemoglobin 10.5 g/dL (13.0-16.5); Immature Granulocytes Count 0.060 X10^3/uL (0.0-0.0); Mean Corp Hgb Conc 35.4 g/dL (32-36); Mean Corpuscular Volume 88.7 fL (80-94); Mean Platelet Vol. 11.3 fl (6.2-12.0); NRBC Flagged by Analyzer 0 % (0-5); Platelet Count 200 K/mm3 (150-450); RBC Distribution Width CV 13.2 % (11.6-14.6); RBC Distribution Width SD 43.3 fl (35.1-43.9); Red Blood Count 3.35 M/mm3 (4.6-6.2); White Blood Count 9.4 K/mm3 (4.4-11.0)
[2024-12-19 08:02] VITALS: BP 167/70; PULSE 60; RESP 18; TEMP 36.6; O2SAT 99
[2024-12-19 08:07] LABS: Anion Gap 7 (5-15); BUN 9 mg/dL (4-19); BUN/Creat Ratio 7.8 RATIO (10-20); Calcium,Total 7.8 mg/dL (7.6-11.0); Carbon Dioxide 22.3 mmol/L (21.0-32.0); Chloride 106 mmol/L (98-108); Estimated Creatinine Clearance 45.76 ml/min (50-250); Glucose 97 mg/dL (70-99); Potassium 3.6 mmol/L (3.3-5.1)
[2024-12-19] MEDS: APIXABAN 2.5 MG TABLET (WCH) PO (08:27)
[2024-12-19 08:28] VITALS: PULSE 60
[2024-12-19] MEDS: Polyethylene Glycol 3350 17 GM PACKET PO (08:28)
[2024-12-19] MEDS: Senna/Docusate Sodium 1 Tablet PO (08:29)
[2024-12-19 14:00] VITALS: BP 150/71; PULSE 61; RESP 17; TEMP 36.7; O2SAT 95; O2SAT 96
[2024-12-19 21:50] VITALS: BP 155/67; PULSE 63; RESP 18; TEMP 36.6; O2SAT 99
[2024-12-19 22:03] VITALS: PULSE 63
[2024-12-19] MEDS: MELATONIN 10 MG TABLET 5 MG PO (22:03)
[2024-12-20] VITALS (13 sets, daily range): BP systolic 110–150; BP diastolic 56–90; PULSE 58–104; RESP 16–18; TEMP 36.1–37; O2SAT 92–100
[2024-12-20 06:36] LABS: Hematocrit 30.9 % (40-54); Hemoglobin 10.8 g/dL (13.0-16.5); Mean Corp Hgb Conc 35.0 g/dL (32-36); Mean Corpuscular Volume 88.0 fL (80-94); Mean Platelet Vol. 10.5 fl (6.2-12.0); Platelet Count 198 K/mm3 (150-450); RBC Distribution Width CV 13.3 % (11.6-14.6); RBC Distribution Width SD 42.9 fl (35.1-43.9); Red Blood Count 3.51 M/mm3 (4.6-6.2); White Blood Count 11.3 K/mm3 (4.4-11.0)
[2024-12-20 07:03] LABS: Anion Gap 10 (5-15); BUN 7 mg/dL (4-19); BUN/Creat Ratio 6.5 RATIO (10-20); Calcium,Total 8.1 mg/dL (7.6-11.0); Carbon Dioxide 20.9 mmol/L (21.0-32.0); Chloride 104 mmol/L (98-108); Estimated Creatinine Clearance 49.72 ml/min (50-250); Glucose 116 mg/dL (70-99); Potassium 3.5 mmol/L (3.3-5.1)
[2024-12-20] MEDS: Bupiv/Epi 0.25% 30 ML Vial (10:36)
[2024-12-20] MEDS: Senna/Docusate Sodium 1 Tablet 2 TABLET PO (11:48)
[2024-12-21] VITALS (7 sets, daily range): BP systolic 115–135; BP diastolic 59–81; PULSE 68–104; RESP 16–18; TEMP 36.4–37.2; O2SAT 96–99
[2024-12-21 06:17] LABS: Hematocrit 31.0 % (40-54); Hemoglobin 10.9 g/dL (13.0-16.5); Mean Corp Hgb Conc 35.2 g/dL (32-36); Mean Corpuscular Volume 88.3 fL (80-94); Mean Platelet Vol. 11.1 fl (6.2-12.0); Platelet Count 208 K/mm3 (150-450); RBC Distribution Width CV 13.3 % (11.6-14.6); RBC Distribution Width SD 43.1 fl (35.1-43.9); Red Blood Count 3.51 M/mm3 (4.6-6.2); White Blood Count 20.4 K/mm3 (4.4-11.0)
[2024-12-21 06:33] LABS: Anion Gap 10 (5-15); BUN 9 mg/dL (4-19); BUN/Creat Ratio 8.3 RATIO (10-20); Calcium,Total 7.9 mg/dL (7.6-11.0); Carbon Dioxide 21.8 mmol/L (21.0-32.0); Chloride 104 mmol/L (98-108); Estimated Creatinine Clearance 45.76 ml/min (50-250); Glucose 108 mg/dL (70-99); Potassium 3.8 mmol/L (3.3-5.1)
[2024-12-21] MEDS: APIXABAN 2.5 MG TABLET (WCH) PO ×2 (09:32→22:42)
[2024-12-22 04:12] VITALS: BP 114/57; PULSE 78; RESP 18; TEMP 36.4; O2SAT 98
[2024-12-22 05:37] LABS: Hematocrit 30.2 % (40-54); Hemoglobin 10.4 g/dL (13.0-16.5); Mean Corp Hgb Conc 34.4 g/dL (32-36); Mean Corpuscular Volume 88.8 fL (80-94); Mean Platelet Vol. 11.2 fl (6.2-12.0); Platelet Count 190 K/mm3 (150-450); RBC Distribution Width CV 13.2 % (11.6-14.6); RBC Distribution Width SD 43.7 fl (35.1-43.9); Red Blood Count 3.40 M/mm3 (4.6-6.2); White Blood Count 13.5 K/mm3 (4.4-11.0)
[2024-12-22 06:29] LABS: Anion Gap 12 (5-15); BUN 12 mg/dL (4-19); BUN/Creat Ratio 9.7 RATIO (10-20); Calcium,Total 7.8 mg/dL (7.6-11.0); Carbon Dioxide 19.0 mmol/L (21.0-32.0); Chloride 102 mmol/L (98-108); Estimated Creatinine Clearance 42.73 ml/min (50-250); Glucose 105 mg/dL (70-99); Potassium 3.5 mmol/L (3.3-5.1)
[2024-12-22 09:40] VITALS: BP 128/83; PULSE 60; RESP 16; TEMP 36.5; O2SAT 96
[2024-12-22 09:42] VITALS: PULSE 60
[2024-12-22] MEDS: APIXABAN 2.5 MG TABLET (WCH) PO ×2 (09:42→22:34)
[2024-12-22 15:23] VITALS: BP 111/63; PULSE 90; RESP 17; TEMP 36.8; O2SAT 98
[2024-12-22 22:33] VITALS: BP 147/71; PULSE 61; RESP 18; TEMP 36.1; O2SAT 98
[2024-12-22 22:34] VITALS: BP 147/71; PULSE 61
[2024-12-22] MEDS: Polyethylene Glycol 3350 17 GM PACKET PO (22:36)
[2024-12-23 04:20] VITALS: BP 140/70; PULSE 60; RESP 18; TEMP 36.1; O2SAT 97
[2024-12-23 06:03] LABS: Hematocrit 29.8 % (40-54); Hemoglobin 10.3 g/dL (13.0-16.5); Immature Granulocytes Count 0.050 X10^3/uL (0.0-0.0); Mean Corp Hgb Conc 34.6 g/dL (32-36); Mean Corpuscular Volume 89.2 fL (80-94); Mean Platelet Vol. 11.2 fl (6.2-12.0); NRBC Flagged by Analyzer 0 % (0-5); Platelet Count 205 K/mm3 (150-450); RBC Distribution Width CV 13.2 % (11.6-14.6); RBC Distribution Width SD 43.2 fl (35.1-43.9); Red Blood Count 3.34 M/mm3 (4.6-6.2); White Blood Count 10.2 K/mm3 (4.4-11.0)
[2024-12-23 06:57] LABS: Anion Gap 12 (5-15); BUN 13 mg/dL (4-19); BUN/Creat Ratio 11.2 RATIO (10-20); Calcium,Total 7.9 mg/dL (7.6-11.0); Carbon Dioxide 20.6 mmol/L (21.0-32.0); Chloride 102 mmol/L (98-108); Estimated Creatinine Clearance 46.17 ml/min (50-250); Glucose 109 mg/dL (70-99); Magnesium 1.9 mg/dL (1.5-2.2); Potassium 3.6 mmol/L (3.3-5.1)
[2024-12-23 09:51] VITALS: BP 143/65; PULSE 62; RESP 17; TEMP 36.6; O2SAT 99
[2024-12-23 09:54] VITALS: PULSE 62
[2024-12-23] MEDS: APIXABAN 2.5 MG TABLET (WCH) PO ×2 (09:55→21:53)
[2024-12-23 15:31] VITALS: BP 139/70; PULSE 59; RESP 17; TEMP 36.4; O2SAT 98
[2024-12-23 21:42] VITALS: BP 143/66; PULSE 62; RESP 18; TEMP 36.7; O2SAT 98
[2024-12-23] MEDS: 0.9% Saline Lock 10 ML Syringe IV (21:53)
[2024-12-23 21:55] VITALS: BP 143/66; PULSE 62
[2024-12-23] MEDS: Senna/Docusate Sodium 1 Tablet 2 TABLET PO (21:55)
[2024-12-24 04:40] VITALS: BP 137/67; PULSE 60; RESP 18; TEMP 36.1; O2SAT 98
[2024-12-24 06:21] LABS: Hematocrit 30.6 % (40-54); Hemoglobin 10.4 g/dL (13.0-16.5); Immature Granulocytes Count 0.060 X10^3/uL (0.0-0.0); Mean Corp Hgb Conc 34.0 g/dL (32-36); Mean Corpuscular Volume 89.7 fL (80-94); Mean Platelet Vol. 10.6 fl (6.2-12.0); NRBC Flagged by Analyzer 0 % (0-5); Platelet Count 231 K/mm3 (150-450); RBC Distribution Width CV 13.2 % (11.6-14.6); RBC Distribution Width SD 43.6 fl (35.1-43.9); Red Blood Count 3.41 M/mm3 (4.6-6.2); White Blood Count 8.7 K/mm3 (4.4-11.0)
[2024-12-24 06:58] LABS: Anion Gap 9 (5-15); BUN 11 mg/dL (4-19); BUN/Creat Ratio 9.8 RATIO (10-20); Calcium,Total 7.8 mg/dL (7.6-11.0); Carbon Dioxide 21.9 mmol/L (21.0-32.0); Chloride 104 mmol/L (98-108); Estimated Creatinine Clearance 46.17 ml/min (50-250); Glucose 110 mg/dL (70-99); Potassium 3.8 mmol/L (3.3-5.1)
[2024-12-24 09:40] VITALS: BP 141/63; PULSE 60; RESP 18; TEMP 36.3; O2SAT 99
[2024-12-24] MEDS: Polyethylene Glycol 3350 17 GM PACKET PO (09:42)
[2024-12-24 09:43] VITALS: BP 141/63; PULSE 60
[2024-12-24] MEDS: APIXABAN 2.5 MG TABLET (WCH) PO ×2 (11:22→21:10)
[2024-12-24 15:40] VITALS: BP 156/74; PULSE 60; RESP 18; TEMP 36.3; O2SAT 100
[2024-12-24 21:02] VITALS: BP 160/69; PULSE 61; RESP 18; TEMP 36.2; O2SAT 100
[2024-12-24] MEDS: Senna/Docusate Sodium 1 Tablet 2 TABLET PO (21:10)
[2024-12-24 21:11] VITALS: PULSE 61
[2024-12-25 02:40] VITALS: BP 138/63; PULSE 61; RESP 16; TEMP 36.3; O2SAT 98
[2024-12-25 06:14] LABS: Hematocrit 29.8 % (40-54); Hemoglobin 10.2 g/dL (13.0-16.5); Immature Granulocytes Count 0.040 X10^3/uL (0.0-0.0); Mean Corp Hgb Conc 34.2 g/dL (32-36); Mean Corpuscular Volume 89.8 fL (80-94); Mean Platelet Vol. 10.9 fl (6.2-12.0); NRBC Flagged by Analyzer 0 % (0-5); Platelet Count 229 K/mm3 (150-450); RBC Distribution Width CV 13.1 % (11.6-14.6); RBC Distribution Width SD 43.1 fl (35.1-43.9); Red Blood Count 3.32 M/mm3 (4.6-6.2); White Blood Count 7.5 K/mm3 (4.4-11.0)
[2024-12-25 06:45] LABS: Anion Gap 9 (5-15); BUN 10 mg/dL (4-19); BUN/Creat Ratio 10.3 RATIO (10-20); Calcium,Total 8.3 mg/dL (7.6-11.0); Carbon Dioxide 22.6 mmol/L (21.0-32.0); Chloride 104 mmol/L (98-108); Estimated Creatinine Clearance 51.20 ml/min (50-250); Glucose 105 mg/dL (70-99); Potassium 3.7 mmol/L (3.3-5.1)
[2024-12-25 08:40] VITALS: BP 167/71; PULSE 60; RESP 18; TEMP 36.3; O2SAT 98
[2024-12-25] MEDS: Polyethylene Glycol 3350 17 GM PACKET PO (09:32)
[2024-12-25] MEDS: APIXABAN 2.5 MG TABLET (WCH) PO ×2 (09:33→22:55)
[2024-12-25 09:34] VITALS: BP 167/71; PULSE 60
[2024-12-25 14:40] VITALS: BP 110/65; PULSE 70; RESP 18; TEMP 36.8; O2SAT 98
[2024-12-25 20:21] VITALS: BP 150/70; PULSE 66; RESP 16; TEMP 36.7; O2SAT 100
[2024-12-25 22:55] VITALS: PULSE 68
[2024-12-25] MEDS: 0.9% Saline Lock 10 ML Syringe IV (22:56)
[2024-12-26 02:31] VITALS: BP 148/72; PULSE 58; RESP 16; TEMP 36.7; O2SAT 96
[2024-12-26 11:07] VITALS: BP 141/65; PULSE 63; RESP 16; TEMP 36.5; O2SAT 100
[2024-12-26 11:11] VITALS: PULSE 63
[2024-12-26] MEDS: APIXABAN 2.5 MG TABLET (WCH) PO ×2 (11:11→22:17)
[2024-12-26] MEDS: Senna/Docusate Sodium 1 Tablet 2 TABLET PO (11:12)
[2024-12-26 17:40] VITALS: BP 155/64; PULSE 63; RESP 18; TEMP 36.5; O2SAT 97
[2024-12-26 22:11] VITALS: BP 149/67; PULSE 107; RESP 18; TEMP 36.7; O2SAT 100
[2024-12-26 22:17] VITALS: PULSE 107
[2024-12-26] MEDS: Polyethylene Glycol 3350 17 GM PACKET PO (22:17)
[2024-12-27 03:57] VITALS: BP 126/68; PULSE 59; RESP 18; TEMP 36.7; O2SAT 98
[2024-12-27 08:47] LABS: Hematocrit 32.8 % (40-54); Hemoglobin 11.3 g/dL (13.0-16.5); Mean Corp Hgb Conc 34.5 g/dL (32-36); Mean Corpuscular Volume 89.6 fL (80-94); Mean Platelet Vol. 10.4 fl (6.2-12.0); Platelet Count 246 K/mm3 (150-450); RBC Distribution Width CV 13.1 % (11.6-14.6); RBC Distribution Width SD 43.5 fl (35.1-43.9); Red Blood Count 3.66 M/mm3 (4.6-6.2); White Blood Count 8.4 K/mm3 (4.4-11.0)
[2024-12-27 09:18] LABS: Anion Gap 8 (5-15); BUN 9 mg/dL (4-19); BUN/Creat Ratio 8.1 RATIO (10-20); Calcium,Total 8.4 mg/dL (7.6-11.0); Carbon Dioxide 24.6 mmol/L (21.0-32.0); Chloride 103 mmol/L (98-108); Estimated Creatinine Clearance 47.01 ml/min (50-250); Glucose 116 mg/dL (70-99); Magnesium 2.0 mg/dL (1.5-2.2); Potassium 3.8 mmol/L (3.3-5.1)
[2024-12-27 10:16] VITALS: BP 138/58; PULSE 63; RESP 16; TEMP 36.6; O2SAT 100
[2024-12-27 10:21] VITALS: PULSE 63
[2024-12-27] MEDS: APIXABAN 2.5 MG TABLET (WCH) PO ×2 (10:21→21:18)
[2024-12-27] MEDS: Senna/Docusate Sodium 1 Tablet 2 TABLET PO (10:22)
[2024-12-27 15:37] VITALS: BP 136/62; PULSE 61; RESP 16; TEMP 36.3; O2SAT 98
[2024-12-27 21:18] VITALS: PULSE 64
[2024-12-27 21:40] VITALS: BP 154/72; PULSE 63; RESP 14; TEMP 37.1; O2SAT 100
[2024-12-28 03:37] VITALS: BP 131/64; PULSE 60; RESP 14; TEMP 37; O2SAT 97
[2024-12-28 06:04] LABS: Hematocrit 31.0 % (40-54); Hemoglobin 10.6 g/dL (13.0-16.5); Immature Granulocytes Count 0.050 X10^3/uL (0.0-0.0); Mean Corp Hgb Conc 34.2 g/dL (32-36); Mean Corpuscular Volume 89.6 fL (80-94); Mean Platelet Vol. 10.7 fl (6.2-12.0); NRBC Flagged by Analyzer 0 % (0-5); Platelet Count 229 K/mm3 (150-450); RBC Distribution Width CV 13.3 % (11.6-14.6); RBC Distribution Width SD 43.6 fl (35.1-43.9); Red Blood Count 3.46 M/mm3 (4.6-6.2); White Blood Count 9.0 K/mm3 (4.4-11.0)
[2024-12-28 06:36] LABS: Anion Gap 9 (5-15); BUN 10 mg/dL (4-19); BUN/Creat Ratio 8.2 RATIO (10-20); Calcium,Total 8.3 mg/dL (7.6-11.0); Carbon Dioxide 24.4 mmol/L (21.0-32.0); Chloride 102 mmol/L (98-108); Estimated Creatinine Clearance 44.20 ml/min (50-250); Glucose 104 mg/dL (70-99); Potassium 3.8 mmol/L (3.3-5.1)
[2024-12-28 09:12] VITALS: BP 146/58; PULSE 61; RESP 16; TEMP 36.9; O2SAT 100
[2024-12-28 09:14] VITALS: PULSE 61
[2024-12-28] MEDS: APIXABAN 2.5 MG TABLET (WCH) PO (09:14)
== END 2024-12-28 14:02 | disposition home health service (06) | DRG 389 ==
LOC: ED 08:22 → PCU 08:42
PROVIDERS: Hospitalist; Internal Medicine; Surgery; Admitting Provider Family Medicine; Emergency Provider Emergency Medicine; PCP Family Medicine Geriatric Medicine; Visit Provider Internal Medicine
PROC: 0DCP7ZZ Extirpation of Matter from Rectum, Via Natural or Artificial Opening (ICD-10-PCS; principal; 2024-12-20 09:00)
DX: K56.41 Fecal impaction (principal); N13.8 Other obstructive and reflux uropathy; D63.1 Anemia in chronic kidney disease; Z66 Do not resuscitate; E11.22 Type 2 diabetes mellitus with diabetic chronic kidney disease; N18.30 Chronic kidney disease, stage 3 unspecified; E03.9 Hypothyroidism, unspecified; I12.9 Hypertensive chronic kidney disease with stage 1 through stage 4 chronic kidney disease, or unspecified chronic kidney disease; I48.0 Paroxysmal atrial fibrillation; K52.89 Other specified noninfective gastroenteritis and colitis; E78.5 Hyperlipidemia, unspecified; K21.9 Gastro-esophageal reflux disease without esophagitis; N39.490 Overflow incontinence; R53.81 Other malaise; N40.1 Benign prostatic hyperplasia with lower urinary tract symptoms; R33.8 Other retention of urine; Z79.01 Long term (current) use of anticoagulants; Z79.890 Hormone replacement therapy; Z79.899 Other long term (current) drug therapy; Z87.891 Personal history of nicotine dependence
CPT/HCPCS: 36415; 74176; 74177; 80048; 80053; 83735; 84100; 85025; 85027; 94668; 97116; 97162; 97166; 97530; 97535; 97802; 97803; 99252; 99285; Q9967; A4216; G0463

== ENCOUNTER → 2025-01-26 | Outpatient (CLI) | payer MEDICARE, SELFPAY ==
[2025-01-26 11:51] LABS: Hematocrit 32.0 % (40-54); Hemoglobin 10.7 g/dL (13.0-16.5); Immature Granulocytes Count 0.060 X10^3/uL (0.0-0.0); Mean Corp Hgb Conc 33.4 g/dL (32-36); Mean Corpuscular Volume 90.1 fL (80-94); Mean Platelet Vol. 9.7 fl (6.2-12.0); NRBC Flagged by Analyzer 0 % (0-5); Platelet Count 260 K/mm3 (150-450); RBC Distribution Width CV 14.2 % (11.6-14.6); RBC Distribution Width SD 46.8 fl (35.1-43.9); Red Blood Count 3.55 M/mm3 (4.6-6.2); White Blood Count 8.7 K/mm3 (4.4-11.0)
[2025-01-26 12:34] LABS: AST(SGOT) 17 U/L (<=37); Alanine Aminotransfer ALT/SGPT 13 U/L (<=46); Albumin, Serum 3.3 g/dL (3.4-4.8); Alkaline Phosphatase 189 U/L (40-129); Anion Gap 10 (5-15); BUN 12 mg/dL (4-19); BUN/Creat Ratio 9.5 RATIO (10-20); Calcium,Total 8.5 mg/dL (7.6-11.0); Carbon Dioxide 22.0 mmol/L (21.0-32.0); Chloride 101 mmol/L (98-108); Cholesterol 101 mg/dL (<=200); Globulin 3.2 g/dL (2.2-4.2); Glucose 137 mg/dL (70-99); Low Density Lipoprotein Calc. 31 mg/dL; Potassium 4.2 mmol/L (3.3-5.1); Triglycerides 53 mg/dL; Very Low Density Lipoprotein 11 mg/dL (5-40); Vitamin D,25 Hydroxy 26.6 ng/mL (30-100); cholesterol:hdl ratio screen 1.69
== END | disposition home or self-care (01) ==
LOC: POLAB3 11:41
PROVIDERS: PCP Family Medicine Geriatric Medicine; Visit Provider Family Medicine Geriatric Medicine
DX: E78.5 Hyperlipidemia, unspecified (principal); E11.65 Type 2 diabetes mellitus with hyperglycemia; I10 Essential (primary) hypertension; E03.9 Hypothyroidism, unspecified; E55.9 Vitamin D deficiency, unspecified
CPT/HCPCS: 36415; 80053; 80061; 82306; 83036; 84443; 85025